=== PATIENT | female | born 1945 | race Caucasian/White ===

== ENCOUNTER 2019-10-24 13:57 | Inpatient (IN) | payer MEDICARE, MEDICAID, SELFPAY ==
[2019-10-24] VITALS (14 sets, daily range): BP systolic 85–132; BP diastolic 38–97; PULSE 68–94; RESP 17–30; TEMP 36.3–36.7; O2SAT 93–100; BMI 29.5
--- NOTE | ~2019-10-24 | XR_ITS ---
EXAMINATION: XR chest 1V portable 10/24/2019 15:52 INDICATION: Dyspnea. Transient alteration of awareness. PROCEDURE: AP portable chest COMPARISON: 06/13/2018 FINDINGS: The lungs are clear. The cardiomediastinal silhouette is within normal limits. There are no pleural effusions. There is no pneumothorax suspected. IMPRESSION: 1: NO ACUTE CARDIOPULMONARY DISEASE. Reviewed, dictated and finalized at location A.
--- NOTE | ~2019-10-24 | CT_ITS ---
EXAMINATION: CT brain wo con INDICATION: Confusion, history of three brain tumors with removal of one per H&P COMPARISON: None TECHNIQUE: Standard unenhanced head CT. The dose-length product (DLP) was 605.33 mGy-cm. The mA was a djusted according to patient size. Iterative reconstruction technique was employed. FINDINGS: There are changes of right frontotemporal craniotomy. A large area of the right frontal lob e has been surgically removed. There are calcifications of the inferior aspect of the remaining right frontal lobe and medial/inferior right temporal lobe. Encephalomalacia is seen anteriorly in the sup erior aspect of the remaining right frontal lobe. There is no acute intraparenchymal hemorrhage. No e vidence of acute infarction. There is moderate periventricular and subcortical hypodensity probably r elated to small vessel ischemic disease. There is mild prominence of the sulci and ventricles related to cerebral atrophy. Intracranial calcified cerebral atherosclerosis is noted. There are no extra-ax ial collections. There is no mass effect or midline shift. The orbits and soft tissues are unremarkab le. There is mild mucosal thickening of the paranasal sinuses. IMPRESSION: 1. Changes of right frontotemporal craniotomy and partial right frontal lobe resection without acute intracranial abnormality. 2. Calcifications in the right frontal and temporal lobes which could reflect residual masses describ ed in patients H&P. Reviewed, dictated and finalized at location A. IMPRESSION: 1. Changes of right frontotemporal craniotomy and partial right frontal lobe re section without acute intracranial abnormality. 2. Calcifications in the right frontal and temporal lobes which could reflect r esidual masses described in patients H&P.
--- NOTE | 2019-10-24 14:03 | ECG_ITS ---
Measurements Intervals [place] Rate: 77 P: 57 [place]: 172 QRS: -54 QRSD: 69 T: 71 QT: 353 QTc: 400 Interpretive Statements SINUS RHYTHM LOW QRS VOLTAGE- DIFFUSE LEADS POOR R WAVE PROGRESSION, ANTERIOR LEADS CONSIDER INFERIOR INFARCT, AGE INDETERMINATE BASELINE ARTIFACT- V4-V6 ABNORMAL ECG Electronically Signed On 10-24-2019 16:18:56 CDT by Bryon Reyes D.O.
[2019-10-24 14:21] LABS: Basophils Absolute Auto 0.1 K/mm3 (0.0-0.1); Basophils Percent Auto 0.6 % (0.2-1.2); Eosinophils Absolute Auto 0.2 K/mm3 (0-0.3); Eosinophils Percent Auto 1.9 % (0-4.4); Hemoglobin 13.4 g/dL (12.0-15.0); Immature Granulocyte Absolute 0.08 K/mm3 (0.00-0.031); Immature Granulocyte Percent A 0.7 % (0-0.5); Lymphocytes Absolute Auto 2.88 K/mm3 (0.9-3.2); Lymphocytes Percent Auto 23.7 % (18.3-44.2); Mean Corpuscular HGB Conc 30.5 g/dl (32-36); Mean Corpuscular Hemoglobin 26.2 pg (26-34); Mean Corpuscular Volume 85.9 fl (80-100); Mean Platelet Volume 9.1 fl (7.4-10.4); Monocytes Absolute Auto 0.3 K/mm3 (0.1-0.6); Monocytes Percent Auto 2.7 % (2.6-8.5); Neutrophils Absolute Auto 8.6 K/mm3 (1.3-6.7); Neutrophils Percent Auto 70.4 % (45.5-73.1); Platelet Count Result 329 k/mm3 (150-375); Red Blood Count 5.12 M/mm3 (4.2-5.4); Red Cell Distribution Width 15.9 % (11.5-14.5); White Blood Count 12.2 K/mm3 (4.5-10.0)
[2019-10-24 14:39] LABS: Alanine Aminotransferase 119 U/L (4-35); Alkaline Phosphatase 121 U/L (38-126); Aspartate Amino Transferase 126 U/L (14-36); Bilirubin,Total 0.4 mg/dL (0.2-1.3); Blood Urea Nitrogen 12 mg/dL (7-17); Calcium 8.7 mg/dL (8.4-10.2); Carbon Dioxide 23 mmol/L (22-30); Chloride 106 mmol/L (98-107); Estimated Glomerular Filt Rate > 60; Glucose 266 mg/dL (65-105); Sodium 141 mmol/L (137-145)
[2019-10-24 14:47] LABS: Anion Gap 15.7 mmol/L (7-16); Potassium 3.7 mmol/L (3.4-5.0)
[2019-10-24 15:08] LABS: Add Urine Microscopic? YES; Appearance Urine Cloudy (Clear); Bacteria Urine 2+ /hpf; Bilirubin Urine Negative (Negative); Blood Urine Negative (Negative); Color Urine Yellow (Yellow); Glucose Urine UA Negative (Negative); Hyaline Casts Urine 30-49 /lpf; Ketones Urine Negative (Negative); Leukocyte Esterase Ur 2+ LEU/UL (Negative); Mucus Urine Heavy /lpf; Nitrate Urine Positive (Negative); Protein Urine 1+ mg/dL (Negative); Specific Grav Ur 1.016 (1.001-1.035); Squamous Epithelial Cell Urine Occasional /hpf (Few); Urobilinogen Urine Negative mg/dL (<2.0); WBC Urine 31-50 /hpf
--- NOTE | 2019-10-24 15:36 | PC.NURSE ---
Pt family called to get an update. States that pt has had pnuemonia in the last month and are requesting we get a chest X ray
[2019-10-24] MEDS: SODIUM CHLORIDE 0.9% IV 1,000 ML 999 ML IV CONT (17:00)
--- NOTE | 2019-10-24 18:19 | ED.AMS ---
HPI - Altered Mental Status General Chief Complaint: Altered Mental Status Stated Complaint: ams Time Seen by Provider: 10/24/19 15:00 Source: patient, EMS and RN notes reviewed Mode of arrival: EMS Limitations: no limitations History of Present Illness HPI narrative: 74-year-old with a history of hypertension, diabetes was sent from a care home with complaints of sudden onset of altered mental status. Patient was at the lunch table was found to be extremely confused and lethargic , as per the care home staff her blood pressure was 95/45. Patient upon arrival to the ER seems to be more alert complains of headache chest pain abdominal pain. She denies any cough shot or shortness of breath. She stated that she threw up few days ago. MD complaint: altered mental status and decreased responsiveness Onset (ago): hour(s) (1) Severity: moderate Associated symptoms: chest pain, nausea/vomiting and weakness Treatments prior to arrival: IV fluid Related Data Home Medications Medication Instructions Recorded Confirmed Lactobacillus acidophilus mg PO DAILY 10/24/19 [Acidophilus] Phenergan 25 mg PO 10/24/19 insulin glargine [Basaglar KwikPen 14 unit SUBCUT BID 10/24/19 U-100 Insulin] omeprazole 20 mg PO BID 10/24/19 oseltamivir [Tamiflu] 75 mg PO DAILY 10/24/19 oxybutynin chloride 5 mg PO DAILY 10/24/19 pneumococcal 23-charanjit ps vaccine 0.5 ml IM ONCE 10/24/19 [Pneumovax-23] sennosides-docusate sodium [Senna 8.6 cap PO 10/24/19 Plus] Allergies Allergy/AdvReac Type Severity Reaction Status Date / Time shellfish derived Allergy Unknown Hives Verified 06/03/18 14:38 codeine Allergy Unknown Verified 10/24/19 14:44 erythromycin base Allergy Unknown Verified 10/24/19 14:44 hydrocodone Allergy Unknown Verified 10/24/19 14:44 ibuprofen Allergy Unknown Verified 10/24/19 14:44 Iodinated Contrast Media Allergy Unknown Verified 10/24/19 14:44 meperidine Allergy Unknown Verified 10/24/19 14:44 mepivacaine [From Carbocaine] Allergy Unknown Verified 10/24/19 14:44 propoxycaine Allergy Unknown Verified 10/24/19 14:44 Sulfa (Sulfonamide Allergy Unknown Verified 10/24/19 14:44 Antibiotics) Review of Systems Review of Systems: All systems reviewed & are unremarkable except as noted in HPI and below Constitutional: Constitutional: Reports no additional constitutional complaints Eyes: Eyes: Reports no additional eye complaints ENT: Reports system reviewed and no additional complaints, except as documented Cardiovascular: Cardiovascular: Reports no additional cardiovascular complaints Respiratory: Respiratory: Reports no additional respiratory complaints Gastrointestinal: Gastrointestinal: Reports no additional gastrointestinal complaints Genitourinary: Genitourinary: Reports as per HPI Musculoskeletal: Musculoskeletal: Reports no additional musculoskeletal complaints Neurologic: Reports system reviewed and no additional complaints, except as documented [facility] Social History Social History Second hand tobacco smoke exposure: No Alcohol intake: never Exam Const: General: cooperative, no acute distress and well developed Nutritional Appearance: average body habitus HENMT: General nose exam: Normal external nose present Face and sinus: normal facial exam Mouth: Yes Normal oral and palatal mucosa present Eyes: General: appearance normal, both eyes and all related structures Pupils: Equal, round and reactive pupils present Neck: Neck: normal visual inspection Lymphatic: no lymphadenopathy noted Chest: Chest palpation & inspection: normal inspection of the chest Resp: Effort & Inspection: normal respiratory effort and able to speak in complete sentences Cardio: Palpation: normal PMI Rate: regular rate Rhythm: regular rhythm Heart sounds: S1 normal heart sound present and S2 normal heart sound present GI: Inspection: normal to inspection
--- NOTE | 2019-10-24 18:59 | PC.NURSE ---
Tung Dumont:[phone] Brother: YOGI [phone]
--- NOTE | 2019-10-24 19:22 | PC.NURSE ---
Blood Glucose was 143 at 19:23
[2019-10-24 19:23] LABS: Glucose Point of Care 143 (65-105)
[2019-10-24] MEDS: SODIUM CHLORIDE 0.9% IV 1,000 ML 100 ML IV CONT (20:45)
[2019-10-25] VITALS (11 sets, daily range): BP systolic 114–130; BP diastolic 46–63; PULSE 69–92; RESP 16–18; TEMP 36.4–37.2; O2SAT 94–97
--- NOTE | 2019-10-25 | PC.NURSE ---
This patient, Linette Vásquez, was admitted to 3 [facility] Room 313-01. Patient/family oriented to hospital policies and general routines including ID bracelet, bed and alarms, visiting hours, pain management, procedures, bathroom and other care routines, personal items, smoking policy, room service/diet, and visiting hours. Valuables list has been completed. Information on how to activate the Rapid Response Team has been discussed. Patient/Family are encouraged to report perceived risks to care and to ask questions if they do not understand what they are told or what they should do.
--- NOTE | 2019-10-25 | PM.IMHP ---
H&P: HPI History of Present Illness Date/Time: 10/25/19 00:00 Chief complaint: Altered mental status, hypertension, UTI Narrative: Linette Vásquez is a 74 year old female Who [facility] The patient does have a history of diabetes. She had an altered mental status change today. She is eating lung to the table and she became very confused blood pressure is 95/45. The patient was a little more alert to was complaining of a headache when she got here and abdominal pain. She denied any fever chills or any shortness of breath. The patient tells me that she has her temperature checked several times a day and does not have a fever. Initially the patient thought that she was still the senior care and then she thought she was at [facility] on the 3rd attempt at orientation to place she realized that she was at [facility]. her white count was noted to be 12.2. Her blood sugar was initially 266 and then became at 1:43 a.m.. Her urine was found to be positive for UTI. She was started on IV fluids and ceftriaxone. The patient is more talkative and stated that she threw up for the last 3 days and that she felt a little sick to her stomach. She is passing gas in the room. I spent approximately 45 minutes with the patient date of service is 10/25/2019 Review of Systems Review of Systems: All systems reviewed & are unremarkable except as noted in HPI and below Constitutional: Constitutional: Reports as per HPI and Reports no additional constitutional complaints Eyes: Eyes: Reports as per HPI and Reports no additional eye complaints ENT: Reports system reviewed and no additional complaints, except as documented and Reports Normal hearing present Cardiovascular: Cardiovascular: Reports no additional cardiovascular complaints Respiratory: Respiratory: Reports no additional respiratory complaints and Reports no additional respiratory complaints Gastrointestinal: Gastrointestinal: Reports as per HPI and Reports no additional gastrointestinal complaints Musculoskeletal: Musculoskeletal: Reports no additional musculoskeletal complaints Integumentary/Breasts: Skin/Breast: Reports system reviewed and no additional complaints, except as docu and Reports as per HPI Neurologic: Reports system reviewed and no additional complaints, except as documented, Reports as per HPI and Reports Normal hearing present Psychiatric: Psychiatric: Reports no additional psychiatric complaints and Reports as per HPI Endocrine: Endocrine: Reports no additional endocrine complaints Hematologic/Lymphatic: Hematologic/Lymphatic: Reports no additional hematologic/lymphatic complaints Allergic/Immunologic: Allergic/Immunologic: Reports no additional allergic/immunologic complaints PMFSH Past Medical History Medical History (Updated 10/25/19 @ 00:04 by Monik Dorsey NP) Brain tumor the patient stated that she had 3 brain tumors and that too were not able to be removed in only 1 removed. DM2 (diabetes mellitus, type 2) Surgical History Surgical History (Updated 10/25/19 @ 00:04 by Monik Dorsey NP) H/O brain surgery she stated that she only had 1 brain tumor removed. Family History Family History (Updated 10/25/19 @ 00:06 by Monik Dorsey NP) Mother Diabetes mellitus Father Lung cancer Sibling Breast cancer she has Social History Social History (Updated 10/25/19 @ 00:07 by Monik Dorsey NP) Social History: the patient stated that she is and has 1 son. She states that her brother and her son are durable power real estate attorney. She states that her son comes to visit her often brings are presents at [facility]. She desires to be a full code. 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 She stated that she used to smoke until she was made to quit smoking. She denies any marijuana illicit drug use or alcohol. The patient is a full code.
--- NOTE | 2019-10-25 00:11 | PC.NURSE ---
pt poor historian
[2019-10-25 02:09] LABS: Glucose Point of Care 170 (65-105)
[2019-10-25] MEDS: SODIUM CHLORIDE 0.9% IV 1,000 ML 100 ML IV CONT ×2 (05:51→16:49)
[2019-10-25 06:46] LABS: Alanine Aminotransferase 96 U/L (4-35); Albumin Level 3.7 g/dL (3.5-5.1); Alkaline Phosphatase 105 U/L (38-126); Aspartate Amino Transferase 68 U/L (14-36); Bilirubin,Total 0.2 mg/dL (0.2-1.3); Blood Urea Nitrogen 9 mg/dL (7-17); CRP 3.4 mg/dL (<1.0); Calcium 8.1 mg/dL (8.4-10.2); Carbon Dioxide 24 mmol/L (22-30); Chloride 112 mmol/L (98-107); Estimated CRCL calculation 53 ml/min; Estimated Glomerular Filt Rate > 60; Glucose 142 mg/dL (65-105); Sodium 143 mmol/L (137-145)
--- NOTE | 2019-10-25 08:30 | NEURO_ITS ---
TEST: ELECTROENCEPHALOGRAM DIAGNOSIS: CONFUSION PATIENT NUMBER: [id number] EEG NUMBER: [id number] RECORDING DATE: 10/25/19 CLINICAL HISTORY: Patient has history of having a brain tumor removed. CONDITION OF RECORDING: Awake EEG DESCRIPTION: The whole record consists of diffused poorly organized low voltage 15-21beta activity mixed with multiple movement and muscle artifacts in addition to medium to high voltage 3-4hz delta activity over the right anterior hemispheric linkages. Hyperventilation and photic stimulation were not done. Nonparoxysmal. Focal. Lateralizing. IMPRESSION: Abnormal record due to the presence of the right hemispheric theta and delta activity without any evidence of paroxysmal discharge. Clinical correlation recommended. These abnormalities could be suggestive of underlying organic or metabolic encephalopathy along with focal structural lesion on the right side. MTDD
[2019-10-25] MEDS: PANTOPRAZOLE SOD SESQUIHYDRATE 20 MG TAB PO ×2 (09:27→18:07)
[2019-10-25] MEDS: ACIDOPHILUS/BULGARICUS CHEWABLE TABLET 1 TABLET PO (09:27)
[2019-10-25 10:56] LABS: Glucose Point of Care 131 (65-105)
[2019-10-25] MEDS: INSULIN GLARGINE (*BKC) 100 UNITS/ML 14 UNITS SUB-Q ×2 (11:18→18:12)
[2019-10-25 13:26] LABS: Glucose Point of Care 118 (65-105)
--- NOTE | 2019-10-25 14:16 | PM.IMPN ---
Progress Note: A&P Assessment and Plan (1) Acute UTI: Code(s): N39.0 - Urinary tract infection, site not specified Status: Acute Assessment and Plan: Patient presents from long-term due to altered mental status. UA is abnormal. Continue IV ceftriaxone while awaiting urine and blood cultures. Unclear why 2nd set of blood cultures not drawn, contacted lab to get 2nd set. (2) Altered mental status: Qualifiers: Altered mental status type: unspecified Qualified Code(s): R41.82 - Altered mental status, unspecified Code(s): R41.82 - Altered mental status, unspecified Status: Resolved Assessment and Plan: Resolved today. Suspect secondary to above. Will monitor. (3) Acute hypotension: Code(s): I95.9 - Hypotension, unspecified Status: Acute Assessment and Plan: Resolved; last BP 130/60. Likely secondary to recent vomiting and poor appetite in the setting of UTI. Monitor BP. (4) DM2 (diabetes mellitus, type 2): Qualifiers: Diabetes mellitus prison insulin use: with prison use Diabetes mellitus complication status: without complication Qualified Code(s): E11.9 - Type 2 diabetes mellitus without complications; Z79.4 - long term care administrator (current) use of insulin Code(s): E11.9 - Type 2 diabetes mellitus without complications Status: Chronic Assessment and Plan: Blood sugars are stable today. Continue home lantus BID and cover with SSI. Monitor with Accu-cheks and adjust treatment as needed. (5) Brain tumor: Code(s): D49.6 - Neoplasm of unspecified behavior of brain Status: Chronic Assessment and Plan: Patient reports history of 3 brain tumors and had 1 removed in the past. CT brain shows chronic findings consistent with the history she gives, no acute findings. At this point it is not felt to be contributing to her symptoms from yesteray. Subjective Date/time seen: 10/25/19 1215 Interval history: Ms. Vásquez is a 74yo F admitted for UTI. Was confused with hypotension at the long-term which has resolved, at baseline today. She is sitting up in bed eating lunch at time of my exam. She reports having dysuria sometimes . Denies chest pain, shortness of breath, or calf tenderness. She is tolerating oral intake without nausea or vomiting today. Review of Systems Review of Systems: Narrative: Twelve systems were reviewed with pertinent positives and negatives as per HPI. Exam Narrative: Exam Narrative: General: Female resting sitting up in bed in no acute distress, eating lunch. HEENT: Normocephalic, EOMI, oral mucosa moist. Cardiovascular: Rate and rhythm are regular. Respiratory: Lungs clear to auscultation all adrian. Non-labored breathing. Abdomen: Soft, non-tender, non-distended, bowel sounds present. Extremities: Peripheral pulses intact. Neuro: No focal neurological deficits. Speech is clear. Alert and mostly oriented. She knows she is in the hospital but looks up at the whiteboard before telling me she is at [place], oriented to month and year. Objective Data Vital Signs Vital Signs: Last Vital Signs Temp 98.4 F 10/25/19 14:00 Pulse 78 10/25/19 14:00 Resp 18 10/25/19 14:00 BP 130/60 10/25/19 14:00 Pulse Ox 94 10/25/19 14:00 Intake/Output Intake/Output: Intake & Output 10/22/19 10/23/19 10/24/19 10/25/19 23:59 23:59 23:59 23:59 Intake Total 1050 1270 Output Total 50 200 Balance 1000 1070 Meds/Results Medications: Active Medications Generic Name Dose Route Start Last Admin Trade Name Freq PRN Reason Stop Dose Admin Acetaminophen 650 mg 10/24/19 18:30 Tylenol Tablet PO Q4H PRN Mild Pain (1-3) or Fever Dextrose 12.5 gm 10/24/19 18:30 Dextrose 50% Syringe IV PUSH PRN PRN
[2019-10-25 18:19] LABS: Glucose Point of Care 152 (65-105)
[2019-10-25 21:19] LABS: Glucose Point of Care 202 (65-105)
[2019-10-26] VITALS (7 sets, daily range): BP systolic 122–136; BP diastolic 49–72; PULSE 60–88; RESP 14–18; TEMP 36.2–36.7; O2SAT 96–98
[2019-10-26] MEDS: SODIUM CHLORIDE 0.9% IV 1,000 ML 100 ML IV CONT ×2 (04:41→13:00)
[2019-10-26] MEDS: ACIDOPHILUS/BULGARICUS CHEWABLE TABLET 1 TABLET PO (08:57)
[2019-10-26] MEDS: PANTOPRAZOLE SOD SESQUIHYDRATE 20 MG TAB PO ×2 (08:58→18:26)
[2019-10-26] MEDS: SENNA/DOCUSATE SODIUM TABLET 1 TAB PO (08:58)
[2019-10-26] MEDS: INSULIN GLARGINE (*BKC) 100 UNITS/ML 14 UNITS SUB-Q (09:03)
--- NOTE | 2019-10-26 11:53 | PM.DS ---
DS: Admitting Diagnosis Admitting Diagnosis Admitting Diagnosis: Urinary tract infection, site not specified DS: Discharge Diagnosis Discharge Diagnosis (1) Acute UTI: Code(s): N39.0 - Urinary tract infection, site not specified Status: Acute Assessment and Plan: Date of Service 10/26/19 Ms. Vásquez is a 74yo F history of insulin-dependent type 2 diabetes, history of brain tumors who presented to the ED from the intermediate for evaluation of altered mental status. intermediate staff noted she was sitting showed a table eating lunch when she fell asleep sitting up and tried to wake her up, she was difficult to arouse. Blood pressures were 68/48 when EMS arrived. Urinalysis was grossly abnormal and she was started on IV ceftriaxone empirically. Urine culture grew Klebsiella pneumonia. Blood culture is pending with no growth to date on day of discharge, will follow to final. She was treated with 2 doses of IV Rocephin and was discharged with oral Augmentin to complete course based on the sensitivity report. She is oriented to self time but gets confused on place. This seems to be her baseline. It is felt that her altered mental status was secondary to acute UTI and hypotension. She was treated with IV hydration and blood pressures have improved. She does have a history of 3 brain tumors and reports she had 1 removed in the past. CT brain demonstrated chronic findings consistent with his history, with no acute intracranial abnormalities. She is hemodynamically stable for discharge 10/26/2019 with plans to follow-up with intermediate PCP within 1 week. (2) Altered mental status: Qualifiers: Altered mental status type: unspecified Qualified Code(s): R41.82 - Altered mental status, unspecified Code(s): R41.82 - Altered mental status, unspecified Status: Resolved Assessment and Plan: Resolved today. Suspect secondary to above. (3) Acute hypotension: Code(s): I95.9 - Hypotension, unspecified Status: Acute Assessment and Plan: Resolved; last BP 136/52. Likely secondary to recent vomiting and poor appetite in the setting of UTI. Monitor BP. (4) DM2 (diabetes mellitus, type 2): Qualifiers: Diabetes mellitus intermission coordinator insulin use: with detention use Diabetes mellitus complication status: without complication Qualified Code(s): E11.9 - Type 2 diabetes mellitus without complications; Z79.4 - jail (current) use of insulin Code(s): E11.9 - Type 2 diabetes mellitus without complications Status: Chronic Assessment and Plan: Blood sugars are stable today. Continue her home Lantus regimen. (5) Brain tumor: Code(s): D49.6 - Neoplasm of unspecified behavior of brain Status: Chronic Assessment and Plan: Patient reports history of 3 brain tumors and had 1 removed in the past. CT brain shows chronic findings consistent with the history she gives, no acute findings. At this point it is not felt to be contributing to her symptoms from yesteray. DS: Summary Time Spent with Patient Time attestation: Total time spent providing and/or coordinating discharge services: 35 minute Exam Narrative: Exam Narrative: General: Female resting sitting up in bed in no acute distress, eating lunch. HEENT: Normocephalic, EOMI, oral mucosa moist. Cardiovascular: Rate and rhythm are regular. Respiratory: Lungs clear to auscultation all adrian. Non-labored breathing. Abdomen: Soft, non-tender, non-distended, bowel sounds present. Extremities: Peripheral pulses intact. Neuro: No focal neurological deficits. Speech is clear. Alert and mostly oriented. She knows she is in the hospital but looks up at the whiteboard before telling me she is at [place], oriented to month and yea
[2019-10-26 13:13] LABS: Glucose Point of Care 99 (65-105)
[2019-10-26 13:21] LABS: Glucose Point of Care 156 (65-105)
[2019-10-26 15:08] LABS: SARS-CoV-2 RNA PCR Negative
[2019-10-26 17:25] LABS: Glucose Point of Care 156 (65-105)
--- NOTE | 2019-11-02 11:05 | PC.NURSE ---
Blood cx is negative
== END 2019-10-26 18:45 | DRG 690 ==
LOC: ANHED 18:57 → ANH3MEDSUR 19:26
PROVIDERS: Emergency Medicine; Nurse Practitioner; Physician Assistant; Admitting Provider Internal Medicine; Emergency Provider Family Medicine; PCP Internal Medicine; Visit Provider Internal Medicine
DX: N39.0 Urinary tract infection, site not specified (principal); B96.1 Klebsiella pneumoniae [K. pneumoniae] as the cause of diseases classified elsewhere; Z11.59 Encounter for screening for other viral diseases; R41.82 Altered mental status, unspecified; I95.9 Hypotension, unspecified; E11.9 Type 2 diabetes mellitus without complications; D49.6 Neoplasm of unspecified behavior of brain; Z79.4 Long term (current) use of insulin; Z87.891 Personal history of nicotine dependence
CPT/HCPCS: 36415; 51701; 70450; 71045; 80053; 81001; 82728; 82948; 84443; 85025; 86140; 87040; 87077; 87086; 87088; 87186; 87635; 93005; 95816; 96361; 96365; 99285; A9270; C9803; G0378; J0696; J1815; J7030; U0003

== ENCOUNTER 2020-01-28 08:03 | Inpatient (IN) | payer MEDICARE, MEDICAID, SELFPAY ==
[2020-01-28] VITALS (38 sets, daily range): BP systolic 73–129; BP diastolic 53–76; PULSE 70–123; RESP 8–98; TEMP 36.1–36.4; O2SAT 85–100
--- NOTE | ~2020-01-28 | XR_ITS ---
EXAMINATION: XR chest 1V portable DATE: 02/11/2020 06:15 INDICATION: Acute respiratory failure. COVID-19 pneumonia. TECHNIQUE: A single frontal view of the chest was obtained. COMPARISON: Chest single view 02/10/2020 FINDINGS: There is a diffuse interstitial pattern in the lungs. No pleural effusion or pneumothorax. The heart size is normal. The endotracheal tube tip is 3.2 cm above the ruchi. The nasogastric tube tip is in the stomach. A right upper extremity peripherally inserted central venous catheter (PICC) i s seen with tip in the superior vena cava. IMPRESSION: 1. Stable diffuse lung disease, consistent with atypical pneumonia versus mild pulmonary edema. Reviewed, dictated and finalized at location A. ULUS TUTOR
--- NOTE | ~2020-01-28 | XR_ITS ---
EXAMINATION: XR chest 1V portable DATE: 02/08/2020 05:58 INDICATION: Acute respiratory failure. COVID-19 pneumonia. TECHNIQUE: A single frontal view of the chest was obtained. COMPARISON: Chest single view 02/07/2020 FINDINGS: The lung volumes are small. There is a diffuse interstitial pattern in the lungs. No pleura l effusion or pneumothorax. The heart size is normal. The endotracheal tube tip is 2.2 cm above the c lloyd. A right upper extremity peripherally inserted central venous catheter (PICC) is seen with tip in the right brachiocephalic vein. The nasogastric tube tip is in the distal stomach. IMPRESSION: 1. Stable diffuse interstitial pattern in the lungs, consistent with atypical pneumonia versus mild p ulmonary edema. Reviewed, dictated and finalized at location A. IGHTENER HAND IMPRESSION: 1. Stable diffuse interstitial pattern in the lungs, consistent with atypical p neumonia versus mild pulmonary edema.
--- NOTE | ~2020-01-28 | US_ITS ---
EXAMINATION: US renal BI EXAM DATE: 01/28/2020 15:20 INDICATION: Acute kidney insufficiency. TECHNIQUE: Multiple grayscale and Doppler images of the kidneys were obtained (by a technologist who performed the scan) and subsequently reviewed. Comparison is made to prior examination from 06/29/2018. FINDINGS: Right kidney: There is normal contour and echogenicity. It measures 10.5 x 4.4 x 4.0 centimeters. T here are no focal renal lesions identified. There is no hydronephrosis. Left kidney: There is normal contour and echogenicity. It measures 9.9 x 4.7 x 5.3 centimeters. The re are no focal renal lesions identified. There is no hydronephrosis. Hodge catheter, bladder collapsed and poorly seen. Incidental hepatic steatosis. IMPRESSION: 1. Sonographically unremarkable kidneys. Reviewed, dictated and finalized at location B. SHARED SERVICES CONSULTANT
--- NOTE | ~2020-01-28 | XR_ITS ---
EXAMINATION: XR chest 1V portable DATE: 02/09/2020 06:08 INDICATION: Acute respiratory failure. COVID-19 pneumonia. TECHNIQUE: A single frontal view of the chest was obtained. COMPARISON: Chest single view 02/08/2020 FINDINGS: There is a diffuse interstitial pattern in the lungs. There are mild airspace opacities in right midlung zone and left lower lung zone. No pleural effusion or pneumothorax. The heart size is n ormal. The endotracheal tube tip is 2.4 cm above the ruchi. The nasogastric tube tip is in the dista l stomach. A right upper extremity peripherally inserted central venous catheter (PICC) is seen with tip in the superior vena cava. IMPRESSION: 1. Stable diffuse lung disease, consistent with atypical pneumonia versus mild pulmonary edema. Reviewed, dictated and finalized at location A. TECHNICIAN
--- NOTE | ~2020-01-28 | US_ITS ---
EXAMINATION: US right upper quadrant EXAM DATE: 02/09/2020 14:51 INDICATION: elevated liver enzymes elevated LFTS . TECHNIQUE: Multiple grayscale and Doppler images of the abdomen right upper quadrant were obtained (b y a technologist who performed the scan) and subsequently reviewed. Comparison is made to prior exami nation from 06/29/2018. FINDINGS: The pancreatic head and body are normal in appearance. The pancreatic tail is not visualized. There is echogenic liver parenchyma, hepatic steatosis. There is a cyst measuring 2.5 cm inferiorly. The re is no evidence of intrahepatic biliary duct dilation. Portal venous flow was seen in the hepatope da, normal direction and has normal Doppler waveform. No right-sided hydronephrosis. Common bile duct measures 2 mm, which is normal. The gallbladder wall is normal in thickness, with co ntracted state. No sonographic evidence of pericholecystic fluid. There is no cholelithiases. Techn ologist performing exam reports patient did not demonstrate sonographic Borden's sign. Please note t hat this sign is less reliable in patients who have received pain medication. IMPRESSION: 1. Hepatic steatosis. Reviewed, dictated and finalized at location A. RWRITING CONSULTANT IMPRESSION: 1. Hepatic steatosis.
--- NOTE | ~2020-01-28 | XR_ITS ---
EXAMINATION: XR chest 1V portable EXAM DATE: 02/01/2020 06:22 INDICATION: Respiratory failure. TECHNIQUE: Portable AP frontal chest x-ray was obtained. Comparison is made to prior examination from 01/31/2020, 01/30/2020. FINDINGS: Endotracheal tube tip is 3 centimeters above the ruchi (ideal range is between 2 to 5 cm). There is a right-sided PICC line with tip projecting over the SVC. Feeding tube is in position. Small patchy bilateral acute airspace disease likely atelectasis and/or pneumonia. There are small b ilateral pleural effusions. There is no pneumothorax suspected. The cardiomediastinal silhouette i s prominent but magnified on this AP technique. The bones and soft tissues are unremarkable. Accounting for differences in technique, there is no significant interval change. IMPRESSION: 1. Tubes, line in position. 2. Stable airspace disease and other findings as above. STRIAL ELECTRICAL TECHNICIAN Reviewed, dictated and finalized at location A.
--- NOTE | ~2020-01-28 | XR_ITS ---
EXAMINATION: XR chest 1V portable INDICATION: Respiratory failure TECHNIQUE: Portable AP chest at 0553 hours COMPARISON: 01/28/2020 FINDINGS: The endotracheal tube has been repositioned and ends with its tip approximately 5.0 cm abov e the ruchi. The nasogastric tube is in the stomach with its proximal side port near the gastroesoph ageal junction. Airspace opacities of the left mid and lower lung zones continue to improve. There is mild worsening of right basilar airspace opacity. Airspace opacity in the right midlung zone is unch anged. There is no pneumothorax. No definite pleural effusion is identified. The cardiomediastinal si lhouette is normal. IMPRESSION: 1. Repositioned endotracheal tube approximately 5.0 cm above the ruchi. 2. Bilateral airspace opacities of the mid and lower lung zones as detailed above, consistent with at electasis versus pneumonia. Reviewed, dictated and finalized at location A. NEERING PROFESSOR IMPRESSION: 1. Repositioned endotracheal tube approximately 5.0 cm above the ruchi. 2. Bilateral airspace opacities of the mid and lower lung zones as detailed abo ve, consistent with atelectasis versus pneumonia.
--- NOTE | ~2020-01-28 | XR_ITS ---
EXAMINATION: XR chest PICC line INDICATION: PICC insertion TECHNIQUE: Portable AP chest at 1119 hours COMPARISON: 0553 hours FINDINGS: A right upper extremity PICC has been inserted which ends with its tip in the distal superi or vena cava. The endotracheal tube is 2.3 cm above the ruchi. The nasogastric tube is in the stomac h. Airspace opacities of the lung bases are unchanged. The cardiomediastinal silhouette is stable. Th ere is no pleural effusion or pneumothorax. IMPRESSION: 1. Right upper extremity PICC ending with its tip in the distal superior vena cava. 2. Endotracheal tube advanced to 2.3 cm above the ruchi. 3. Otherwise no significant change. Reviewed, dictated and finalized at location A. ING OPERATOR IMPRESSION: 1. Right upper extremity PICC ending with its tip in the distal superior vena c gonzález. 2. Endotracheal tube advanced to 2.3 cm above the ruchi. 3. Otherwise no significant change.
--- NOTE | ~2020-01-28 | XR_ITS ---
EXAMINATION: XR chest ET placement INDICATION: Endotracheal tube insertion TECHNIQUE: Portable AP chest at 0826 hours COMPARISON: 10/24/2019 FINDINGS: The endotracheal tube ends in the right mainstem bronchus. There are patchy bilateral airsp paul opacities. The lung volumes are low. No pleural effusion or pneumothorax is identified. The cardi omediastinal silhouette is stable. IMPRESSION: 1. Endotracheal tube in the right mainstem bronchus. Repositioning is recommended. These findings and recommendations were discussed with Dr. Marvin Jacobson MD in the Emergency Department at 0829 ho urs on 01/28/2020. 2. Patchy bilateral airspace opacities, consistent with pneumonia (known COVID 19 positive). Reviewed, dictated and finalized at location A. SCHOOL ART TEACHER IMPRESSION: 1. Endotracheal tube in the right mainstem bronchus. Repositioning is recommend ed. These findings and recommendations were discussed with Dr. Marvin roth MD in the Emergency Department at 0829 hours on 01/28/2020. 2. Patchy bilateral airspace opacities, consistent with pneumonia (known COVID 19 positive).
--- NOTE | ~2020-01-28 | XR_ITS ---
EXAMINATION: XR chest 1V portable EXAM DATE: 01/31/2020 06:22 INDICATION: Respiratory failure. TECHNIQUE: Portable AP frontal chest x-ray was obtained. Comparison is made to prior examination from 01/30/2020. FINDINGS: Endotracheal tube tip is 3 centimeters above the ruchi (ideal range is between 2 to 5 cm). There is a right-sided PICC line with tip projecting over the cavoatrial junction. Feeding tube tatiana ntified, tip below the diaphragm. The side port is probably above the gastroesophageal junction. This could be safely advanced 5-10 cm. Small patchy bilateral acute airspace disease likely atelectasis and/or pneumonia. There are small b ilateral pleural effusions. There is no pneumothorax suspected. The cardiomediastinal silhouette i s prominent but magnified on this AP technique. The bones and soft tissues are unremarkable. There is no significant interval change compared to prior exam. IMPRESSION: 1. Feeding tube side port above the diaphragm level, could be safely advanced. 2. Stable airspace disease and other findings as above. Reviewed, dictated and finalized at location A. NHOUSE INSTRUCTOR
--- NOTE | ~2020-01-28 | XR_ITS ---
EXAMINATION: XR chest 1V portable EXAM DATE: 02/12/2020 05:58 INDICATION: acute respiratory failure . TECHNIQUE: Portable AP frontal chest x-ray was obtained. Comparison is made to prior examination from 02/11/2020. FINDINGS: Endotracheal tube tip is 4 centimeters above the ruchi (ideal range is between 2 to 5 cm). There is a nasogastric tube seen with tip collimated off the study, but below the left hemidiaphrag m. There is a right-sided PICC line with tip projecting over the cavoatrial junction. Small scattered ill-defined opacities with regions of confluence. Could be edema and/or infection. T here are no sizable pleural effusions. There is no pneumothorax suspected. The cardiomediastinal silhouette is prominent but magnified on this AP technique. The bones and soft tissues are unremark able. There is no significant interval change compared to prior exam. IMPRESSION: 1. Line(s) and tube(s) in position. 2. Stable airspace disease and other findings as above. Reviewed, dictated and finalized at location A. OR SALES ENGINEER
--- NOTE | ~2020-01-28 | XR_ITS ---
EXAMINATION: XR chest 1V portable EXAM DATE: 02/02/2020 06:29 INDICATION: Respiratory failure. TECHNIQUE: Portable AP frontal chest x-ray was obtained. Comparison is made to prior examination from 01/31, 01/31/2020, 01/30/2020. FINDINGS: Endotracheal tube tip is 3 centimeters above the ruchi (ideal range is between 2 to 5 cm). There is a right-sided PICC line with tip projecting over the SVC. Feeding tube is in position. Small patchy bilateral acute airspace disease likely atelectasis and/or pneumonia. There are small b ilateral pleural effusions. There is no pneumothorax suspected. Cardiomediastinal silhouette is no rmal. The bones and soft tissues are unremarkable. Accounting for differences in technique, there is no significant interval change. IMPRESSION: 1. Tubes, line in position. 2. Stable airspace disease and other findings as above. Reviewed, dictated and finalized at location A. TOR KETTLE OPERATOR
--- NOTE | ~2020-01-28 | XR_ITS ---
EXAMINATION: XR abdomen NG/feed tube insert INDICATION: Nasogastric tube insertion TECHNIQUE: Portable AP KUB-NG at 0959 hours COMPARISON: None FINDINGS: The nasogastric tube is in the stomach. A partially imaged repositioned endotracheal tube e nds 9 mm above the ruchi. There are bibasilar airspace opacities, left greater than right. IMPRESSION: 1. Nasogastric tube in the stomach. 2. Partially imaged repositioned endotracheal tube 9 mm above the ruchi. 3. Bibasilar airspace opacities, consistent with atelectasis versus pneumonia. Reviewed, dictated and finalized at location A. GER HEART
--- NOTE | ~2020-01-28 | MR_ITS ---
EXAMINATION: MR brain/brain stem wo con DATE: 02/22/2020 13:06 INDICATION: Encephalopathy. Anaplastic oligodendroglioma. TECHNIQUE: Magnetic resonance imaging (MRI) of the brain and brainstem was performed without intraven ous contrast. Sequences included sagittal and axial T1-weighted FSE, axial diffusion-weighted FS EPI, axial T2*-weighted GRE, axial T2-weighted FLAIR Propeller, and axial T2-weighted Propeller. Apparent diffusion coefficient (ADC) maps were created. COMPARISON: Head CT 02/11/2020, 10/25/19 FINDINGS: There are changes of resection of right frontal lobe. There is a large distribution of incr eased T2-weighted signal intensity in the frontal lobes, right insula, right basal ganglia, and right temporal lobe, consistent with changes of radiation therapy. Within this distribution, there is thic kening of tissue in the right frontal lobe, right insula, and anterior right temporal lobe. This tiss ue demonstrates calcifications by CT. There are foci of restricted diffusion involving posterior limb right internal capsule. There is no intracranial hemorrhage. There is ex vacuo dilatation of the ant erior bodies of the lateral ventricles. There is mild mucosal thickening in right maxillary sinus. Th e orbits are normal. The mastoid air cells are normal. IMPRESSION: 1. Right frontal lobe resection with stable thickened tissue with calcifications in the right frontal lobe, right insula, and anterior right temporal lobe, consistent with residual anaplastic oligodendr oglioma (see [facility] record from 11/12/18 under a different medical record number). 2. Radiation therapy changes involving the frontal lobes, right insula, right basal ganglia, and righ t temporal lobe. 3. Foci of restricted diffusion involving posterior limb right internal capsule. These findings are a t the margin of the radiation field and may be acute infarct or radiation necrosis. Reviewed, dictated and finalized at location A. F PILOT IMPRESSION: 1. Right frontal lobe resection with stable thickened tissue with calcification s in the right frontal lobe, right insula, and anterior right temporal lobe, co nsistent with residual anaplastic oligodendroglioma (see [facility] record from 11/12/18 under a different medical record number). 2. Radiation therapy changes involving the frontal lobes, right insula, right b sherwin ganglia, and right temporal lobe. 3. Foci of restricted diffusion involving posterior limb right internal capsule . These findings are at the margin of the radiation field and may be acute infa rct or radiation necrosis.
--- NOTE | ~2020-01-28 | XR_ITS ---
EXAMINATION: XR chest 1V portable EXAM DATE: 02/04/2020 06:41 INDICATION: Respiratory failure. TECHNIQUE: Portable AP frontal chest x-ray was obtained. Comparison is made to prior examination from 02/03/2020, 01/30. FINDINGS: Endotracheal tube tip is 3 centimeters above the ruchi (ideal range is between 2 to 5 cm). There is a right-sided PICC line with tip projecting over the SVC. Feeding tube is in position. Small patchy bilateral acute airspace disease likely atelectasis and/or pneumonia. There are small b ilateral pleural effusions. There is no pneumothorax suspected. Cardiomediastinal silhouette is no rmal. The bones and soft tissues are unremarkable. Compared to last several days, there is some interval improvement. IMPRESSION: 1. Tubes, line in position. 2. Improving airspace disease and other findings as above. Reviewed, dictated and finalized at location A. MANAGER
--- NOTE | ~2020-01-28 | CT_ITS ---
EXAMINATION: CT brain wo con EXAM DATE: 02/11/2020 11:15 INDICATION: Altered mental status. COVID 19 positive. TECHNIQUE: Spiral CT of the head was performed without contrast. Axial, coronal and sagittal images were reviewed. The dose-length product (DLP) for this examination was 605.33 mGy-cm. The exposure w as tailored according to patient size, and iterative reconstruction (ASIR) was used as additional dos e reduction technique. Comparison is made to prior examination from 02/05/2020. FINDINGS: There is no significant interval change. There is an old right frontal craniotomy. There is large region of underlying right frontal lobe encephalomalacia. There is calcification within the right frontotemporal region adjacent to the encephalomalacia, likely dystrophic from prior injury. Th ere is moderate chronic underlying cerebral atrophy bilaterally. Bifrontal lobe predominant white mat ter hypodensity, could be radiation related change or microangiopathy. No evidence of brain mass, acu te intracranial hemorrhage, extra-axial collections or obstructive hydrocephalus. Orbits and soft tis sues are unremarkable. IMPRESSION: 1. No acute intracranial findings. 2. Right frontal craniotomy, underlying encephalomalacia and adjacent dystrophic calcifications Reviewed, dictated and finalized at location A. IFIED OPHTHALMIC TECHNOLOGIST IMPRESSION: 1. No acute intracranial findings. 2. Right frontal craniotomy, underlying encephalomalacia and adjacent dystroph ic calcifications
--- NOTE | ~2020-01-28 | XR_ITS ---
EXAMINATION: XR abdomen obstructive series EXAM DATE: 02/08/2020 12:20 INDICATION: ileus . TECHNIQUE: Frontal upright projection of the upper abdomen, frontal projection of the lower abdomen f or interpretation. Comparison is made to prior examination from 01/28/2020. FINDINGS: Feeding tube is in position. ET tube tip above the ruchi. There is expected amount of col onic stool and gas. No small bowel dilation, nonobstructive bowel gas pattern. There are no suspi cious calcifications identified. There is no organomegaly suspected. There are mild bony degenerat denny changes. No evidence of free intraperitoneal gas. IMPRESSION: Unremarkable abdomen x-ray exam. Feeding tube in position. Reviewed, dictated and finalized at location A. STILE COLLECTOR
--- NOTE | ~2020-01-28 | XR_ITS ---
XR chest 1V portable 02/22/2020 08:13 Indication: Pneumonia Procedure: AP portable chest Comparison: Comparison to multiple prior studies sequentially, with oldest reviewed study dated 01/22. Findings: PICC line tip in the SVC. NG tube in the stomach. Persistent patchy bilateral airspace dise ase without significant change. No significant pleural effusion. No pneumothorax. Impression: 1: Stable patchy bilateral airspace disease, compatible with pneumonia. Reviewed, dictated and finalized at location D. CYTOGENETIC TECHNOLOGIST Impression: 1: Stable patchy bilateral airspace disease, compatible with pneumonia.
--- NOTE | ~2020-01-28 | NM_ITS ---
EXAMINATION: NM pulmonary perfusion DATE: 02/23/2020 09:52 INDICATION: Shortness of breath. TECHNIQUE: 5.5 mCi Tc-99m MAA was administered intravenously for perfusion images. Scintigraphic darlin ges of the chest were obtained. COMPARISON: Chest single view 02/22/2020 FINDINGS: Perfusion images show matched defects including large defects in the lower lobes there are matched sm all defects in right upper lobe and matched small and moderate sized defects in left upper lobe.. ] IMPRESSION: 1. Nondiagnostic (intermediate probability for pulmonary embolism). Reviewed, dictated and finalized at location A. AL GUNNER
--- NOTE | ~2020-01-28 | CT_ITS ---
EXAMINATION: CT brain wo con INDICATION: Altered mental status, patient with prior history of three brain tumors with removal of one COMPARISON: 10/25/2019 TECHNIQUE: Standard unenhanced head CT. The dose-length product (DLP) was 605.33 mGy-cm. The mA was a djusted according to patient size. Iterative reconstruction technique was employed. FINDINGS: Changes of right frontotemporal craniotomy are again noted with resection of a large portio n of the right frontal lobe. There are unchanged calcifications at the anterior aspect of the right f rontal lobe remnant and at the medial/inferior right temporal lobe. There is unchanged encephalomalac ia in the superior aspect of the right frontal lobe. No acute intraparenchymal hemorrhage or infarcti on is identified. There is moderate periventricular and subcortical hypodensity, likely related to sm all vessel ischemic disease. Intracranial calcified cerebral atherosclerosis is noted. There is no ma ss effect or midline shift. There is mild mucosal thickening of the paranasal sinuses. IMPRESSION: 1. Right frontotemporal surgical changes without acute intracranial abnormality. 2. Age related findings. Reviewed, dictated and finalized at location A. E SORTER IMPRESSION: 1. Right frontotemporal surgical changes without acute intracranial abnormality . 2. Age related findings.
--- NOTE | ~2020-01-28 | US_ITS ---
EXAMINATION: US venous doppler UE EXAM DATE: 02/16/2020 13:54 INDICATION: Left upper extremity swelling. TECHNIQUE: Multiple grayscale, color flow, Doppler sonographic images of the left upper extremity vei ns obtained by technologist. Exam was portable bedside in the intensive care unit. Compression was pe rformed where able. There is no prior study for comparison. FINDINGS: Left upper extremity: Jugular vein: ------------> Normal. Subclavian vein: --------> Normal. Axillary vein:------------> Normal. Brachial vein:-----------> Normal. Basilic vein: ------------> Normal. Cephalic vein: ----------> Not evaluated. Radial vein: ------------> Normal. Ulnar vein: > Not evaluated. Mild limitations from edema and arm position. IMPRESSION: No evidence of left upper extremity DVT.. Reviewed, dictated and finalized at location B. UNTS PAYABLE ASSOCIATE
--- NOTE | ~2020-01-28 | XR_ITS ---
EXAMINATION: XR chest 1V portable INDICATION: Respiratory failure TECHNIQUE: Portable AP chest at 0738 hours COMPARISON: 02/04/2020 FINDINGS: The endotracheal tube ends approximately 1.5 cm above the ruchi. Nasogastric tube is in th e stomach. A right upper extremity PICC ends with its tip in the proximal superior vena cava. Patchy bilateral airspace opacities persist with slight improvement in the lung bases. There is no pleural e ffusion or pneumothorax. The cardiomediastinal silhouette is stable. IMPRESSION: 1. Improved diffuse lung disease, consistent with atelectasis versus pneumonia. Reviewed, dictated and finalized at location A. ING MACHINE OPERATOR
--- NOTE | ~2020-01-28 | XR_ITS ---
EXAMINATION: XR chest 1V portable INDICATION: Respiratory failure TECHNIQUE: Portable AP chest at 0540 hours COMPARISON: 02/05/2020 FINDINGS: The endotracheal tube ends approximately 2.4 cm above the ruchi. The nasogastric tube is f ollowed as far as the stomach. Its tip is beyond the inferior margin of the radiograph. A right upper extremity PICC ends with its tip in the proximal superior vena cava. Patchy bilateral airspace opaci ties persist without significant change. There is no pleural effusion or pneumothorax. The cardiomedi astinal silhouette is stable. IMPRESSION: 1. Stable diffuse lung disease, consistent with atelectasis versus pneumonia. Reviewed, dictated and finalized at location A. ECT COACH
--- NOTE | ~2020-01-28 | XR_ITS ---
EXAMINATION: XR chest ET placement DATE: 01/28/2020 13:31 INDICATION: Endotracheal tube repositioning TECHNIQUE: frontal view of the chest was obtained. COMPARISON: Chest radiograph dated 01/28/2020 at a 8:26 AM FINDINGS: Endotracheal tube has been withdrawn with distal tip now approximately 3 mm above the level of the ca ovidio remaining directed towards the right mainstem bronchus. Nasogastric tube with proximal side-port in the body of the stomach and with distal tip collimated off the study. Small lung volumes. Improvement in the prior opacities at the left mid to lower lung zone, now essent ially resolved in the midlung zone. Persistent patchy airspace opacities in the right midlung zone. N o pulmonary edema, pleural effusion or pneumothorax. Heart size is normal. IMPRESSION: 1. Endotracheal tube tip 3 mm above the ruchi. Recommend withdrawal by an additional 1-2 cm. 2. Improvement in prior opacities in the left midlung zone which are likely due to atelectasis from t he right mainstem bronchial intubation. 3. Persistent focal airspace opacities in the right mid and left lower lung zones consistent with pne umonia in patient with known COVID 19 infection. Reviewed, dictated and finalized at location A. GER PRICING IMPRESSION: 1. Endotracheal tube tip 3 mm above the ruchi. Recommend withdrawal by an laney tional 1-2 cm. 2. Improvement in prior opacities in the left midlung zone which are likely due to atelectasis from the right mainstem bronchial intubation. 3. Persistent focal airspace opacities in the right mid and left lower lung zon es consistent with pneumonia in patient with known COVID 19 infection.
--- NOTE | ~2020-01-28 | XR_ITS ---
EXAMINATION: XR chest 1V portable DATE: 02/07/2020 05:48 INDICATION: Respiratory failure. COVID-19 pneumonia. TECHNIQUE: A single frontal view of the chest was obtained. COMPARISON: Chest single view 02/06/2020 FINDINGS: The lung volumes are small. There is a diffuse interstitial pattern in the lungs. A calcifi ed right lung nodule is consistent with old granulomatous disease. No pleural effusion or pneumothora x. The heart size is normal. The endotracheal tube tip is 2.6 cm above the ruchi. The nasogastric tu be tip is in the stomach. A right upper extremity peripherally inserted central venous catheter (PICC ) is seen with tip in the right brachiocephalic vein. IMPRESSION: 1. Stable diffuse interstitial pattern in the lungs, consistent with mild pulmonary edema versus atyp ical pneumonia. Reviewed, dictated and finalized at location A. ECH PRODUCTION SPECIALIST IMPRESSION: 1. Stable diffuse interstitial pattern in the lungs, consistent with mild pulmo nary edema versus atypical pneumonia.
--- NOTE | ~2020-01-28 | XR_ITS ---
EXAMINATION: XR chest 1V portable DATE: 01/30/2020 06:23 INDICATION: Respiratory failure. TECHNIQUE: A single frontal view of the chest was obtained. COMPARISON: Chest single view 01/29/2020 FINDINGS: The patient is rotated to her right. There is a diffuse interstitial pattern, consistent wi th mild pulmonary edema. There are airspace opacities in right midlung zone and left mid and lower gisella ng zones. There is a small left pleural effusion. No pneumothorax. The heart size is normal. The endo tracheal tube tip is 2.0 cm above the ruchi. The nasogastric tube tip is in the stomach. A right upp er extremity peripherally inserted central venous catheter (PICC) is seen with tip in the superior ve na cava. IMPRESSION: 1. Mild pulmonary edema. 2. Stable airspace opacities in right midlung zone and worsened airspace opacities in left mid and lo wer lung zones, consistent with atelectasis versus pneumonia. 3. Small left pleural effusion. Reviewed, dictated and finalized at location A. CTOR OF ADVERTISING SALES IMPRESSION: 1. Mild pulmonary edema. 2. Stable airspace opacities in right midlung zone and worsened airspace opacit ies in left mid and lower lung zones, consistent with atelectasis versus pneumo raj. 3. Small left pleural effusion.
--- NOTE | ~2020-01-28 | US_ITS ---
EXAMINATION: US venous doppler [facility] DATE: 02/22/2020 16:36 INDICATION: Lower limb swelling TECHNIQUE: Grayscale ultrasound images without and with compression and Doppler ultrasound images of the bilateral lower extremity veins were obtained. COMPARISON: None. FINDINGS: The visualized portions of right common femoral vein, profunda (deep) femoral vein, femoral vein, pop liteal vein, posterior tibial veins, peroneal veins, gastrocnemius vein and greater saphenous vein ou tflow are patent. The visualized portions of left common femoral vein, profunda femoral vein, femoral vein, popliteal v ein, posterior tibial veins, peroneal veins, gastrocnemius vein and greater saphenous vein outflow ar e patent. IMPRESSION: 1. No deep venous thrombosis in either lower limb. Reviewed, dictated and finalized at location A. NEL DEVELOPMENT MANAGER
--- NOTE | ~2020-01-28 | XR_ITS ---
EXAMINATION: XR chest 1V portable DATE: 02/10/2020 06:09 INDICATION: Acute respiratory failure. COVID-19 pneumonia. TECHNIQUE: A single frontal view of the chest was obtained. COMPARISON: Chest single view 02/09/2020 FINDINGS: There is a diffuse interstitial pattern in the lungs. There are airspace opacities in right mid and upper lung zones and left mid and lower lung zones peripherally. No pleural effusion or pneu mothorax. The heart size is normal. The endotracheal tube tip is 1.4 cm above the ruchi. A right upp er extremity peripherally inserted central venous catheter (PICC) is seen with tip in the superior ve na cava. The nasogastric tube tip is beyond the inferior margin of the radiograph, but at least to th e stomach. IMPRESSION: 1. Stable diffuse lung disease, consistent with atypical pneumonia versus mild pulmonary edema. Reviewed, dictated and finalized at location A. RTISING AGENCY MANAGER
--- NOTE | ~2020-01-28 | CT_ITS ---
EXAMINATION: CTA chest PE protocol EXAM DATE: 02/25/2020 13:44 INDICATION: Shortness of breath. Pneumonia. TECHNIQUE: Spiral CTA of the chest (pulmonary arteries) was performed with 100 cc Omnipaque 350 intr avenous contrast injection. Images were acquired during the pulmonary arterial phase. Coronal maxi mum intensity projection 3D-reconstructions were created by the technologist on dedicated workstation . Axial, coronal and sagittal reformatted images were reviewed. The dose-length product (DLP) for t his examination was 517.94 mGy-cm. The exposure was tailored according to patient size (auto mA exp osure control), and iterative reconstruction (ASIR) was used as additional dose reduction technique. There is no prior study for comparison. FINDINGS: There are no pulmonary emboli in the 1st through 3rd order (central and interlobar) pulmon stephany arteries. Some loss of attenuation in the left basilar segmental pulmonary arteries due to respi ratory motion, but no intraluminal filling defects suspected. No thoracic aortic dissection. Patch y bilateral regions of interlobular septal thickening, atelectasis with some interspersed groundglass opacities in smaller regions of confluence. There is mild to moderate emphysema. There are no pleur al or pericardial effusions. Tracheobronchial tree is patent. There is no mediastinal, hilar or a xillary lymphadenopathy. There is no pneumothorax. Heart normal in size. Left liver lobe appears atrophic, with regions of serpiginous enhancement, appearance suggests some a rteriovenous shunting. No definite underlying mass. There is small sliding gastroesophageal hiatal he rnia. There is mild coronary arterial calcification, arterial sclerosis. Upper abdomen is unremark able. There is thoracic spondylosis without osteoblastic or osteolytic lesions identified. IMPRESSION: 1. Limited left basilar segmental evaluation, but no pulmonary emboli are suspected. 2. Scattered groundglass opacities, intralobular septal thickening, small regions of confluence. Pro bably acute infection and atelectasis but uncertain amount of chronic component also possible. 3. Mild to moderate emphysema. 4. Left hepatic lobe vascular shunting without definite underlying mass. 5. Small hiatal hernia. Reviewed, dictated and finalized at location A. ING MACHINE OPERATOR AUTOMATIC IMPRESSION: 1. Limited left basilar segmental evaluation, but no pulmonary emboli are susp ected. 2. Scattered groundglass opacities, intralobular septal thickening, small kristina ons of confluence. Probably acute infection and atelectasis but uncertain amoun t of chronic component also possible. 3. Mild to moderate emphysema. 4. Left hepatic lobe vascular shunting without definite underlying mass. 5. Small hiatal hernia.
--- NOTE | ~2020-01-28 | XR_ITS ---
XR chest 1V portable 02/21/2020 13:58 Indication: Possible aspiration. Respiratory failure. Procedure: AP portable chest Comparison: Comparison to multiple prior studies sequentially, with oldest reviewed study dated 01/22. Findings: Persistent patchy bilateral airspace disease, most confluent in the lower lungs. NG tube in the stomach. PICC line tip in the SVC. No pneumothorax. No significant pleural effusion. Impression: 1: Persistent patchy bilateral airspace disease, most likely pneumonia. Edema less favored. Reviewed, dictated and finalized at location B. ER SUPERIOR Impression: 1: Persistent patchy bilateral airspace disease, most likely pneumonia. Edema l ess favored.
--- NOTE | ~2020-01-28 | CT_ITS ---
EXAMINATION: CT brain wo con EXAM DATE: 02/05/2020 15:23 INDICATION: altered mental status . TECHNIQUE: Spiral CT of the head was performed without contrast. Axial, coronal and sagittal images were reviewed. The dose-length product (DLP) for this examination was 605.33 mGy-cm. The exposure w as tailored according to patient size, and iterative reconstruction (ASIR) was used as additional dos e reduction technique. Comparison is made to prior examination from 01/29/2020. FINDINGS: There is an old right frontal craniotomy. There is large region of underlying right frontal lobe encephalomalacia. There is calcification within the right frontotemporal region adjacent to the encephalomalacia, likely dystrophic from prior injury. There is moderate chronic underlying atrophy. Bifrontal lobe predominant white matter hypodensity, could be radiation related change or microangio celi. No evidence of brain mass, acute intracranial hemorrhage, extra-axial collections or obstructi ve hydrocephalus. Orbits and soft tissues are unremarkable. There is no significant interval change. IMPRESSION: 1. No acute intracranial findings. 2. Right frontal craniotomy, underlying encephalomalacia and dystrophic calcifications Reviewed, dictated and finalized at location A. LDER PAD MOLDER IMPRESSION: 1. No acute intracranial findings. 2. Right frontal craniotomy, underlying encephalomalacia and dystrophic calcif ications
--- NOTE | 2020-01-28 08:12 | PC.NURSE ---
0812: -ERP GARETT READY TO EMERGENTLY INTUBATE AT THIS TIME -RESPIRATORY AND RN RACHEL QUIROS AND ITZ AT BEDSIDE 0813: 30MG ETOMIDATE AND 100 MG SUCCINOCHOLINE GIVEN -PT INTUBATED WITH 7.5MM ETT 25 AT THE LIP. POSITIVE COLOR CHANGE FOR CAPNO AND BILATERAL BREATH SOUNDS ASSESSED. PORTABLE CHEST XRAY OBTAINED.
[2020-01-28] MEDS: SODIUM CHLORIDE 0.9% IV 2,000 ML/1,000 ML BAG 999 ML IV CONT ×2 (08:20→10:37)
--- NOTE | 2020-01-28 08:25 | PC.NURSE ---
PT BECOMING RESTLESS, VERBAL ORDER GIVEN PER NAI BAJWA FOR IVP 2MG VERSED STAT. MEDICATION GIVEN AT THIS TIME.
--- NOTE | 2020-01-28 08:36 | ED.AMS ---
HPI - Altered Mental Status General Chief Complaint: Altered Mental Status Stated Complaint: unresponsive Time Seen by Provider: 01/28/20 08:18 History of Present Illness HPI narrative: Patient is a 75-year-old female who presents ER with altered mental status. At baseline patient is oriented x3. She recently became Covid positive. Patient with rapid and shallow rapid respirations for EMS. Upon arrival patient requiring bag valve assistance with breathing.. She is responsive to noxious stimuli and does not follow commands or answer questions. Related Data Home Medications Medication Instructions Recorded Confirmed Lactobacillus acidophilus 1 tablet PO BID 01/28/20 01/28/20 ergocalciferol (vitamin D2) 1,250 mcg PO WEEKLY 01/28/20 01/28/20 insulin glargine [Basaglar KwikPen 14 unit SUBCUT BID 01/28/20 01/28/20 U-100 Insulin] omeprazole 20 mg PO BID 01/28/20 01/28/20 oxybutynin chloride 5 mg PO DAILY 01/28/20 01/28/20 promethazine [Phenergan] 25 mg VA Q6H PRN 01/28/20 01/28/20 sennosides [senna] 8.6 mg PO BID PRN 01/28/20 01/28/20 Allergies Allergy/AdvReac Type Severity Reaction Status Date / Time codeine Allergy Unknown Verified 01/28/20 17:25 erythromycin base Allergy Unknown Verified 01/28/20 17:25 hydrocodone Allergy Unknown Verified 01/28/20 17:25 ibuprofen Allergy Unknown Verified 01/28/20 17:25 Iodinated Contrast Media Allergy Unknown Verified 01/28/20 17:25 meperidine Allergy Unknown Verified 01/28/20 17:25 mepivacaine [From Carbocaine] Allergy Unknown Verified 01/28/20 17:25 propoxyphene Allergy Unknown Verified 01/28/20 17:25 shellfish derived Allergy Hives Verified 01/28/20 14:46 Sulfa (Sulfonamide Allergy Unknown Verified 01/28/20 14:46 Antibiotics) Review of Systems Review of Systems: ROS unobtainable: Yes unobtainable due to medical condition PMFSH Past Medical History Medical History (Updated 01/28/20 @ 18:53 by Marvin Jacobson MD) Chronic GERD DM2 (diabetes mellitus, type 2) Surgical History Surgical History (Updated 01/28/20 @ 14:04 by Monik Dorsey NP) History of brain surgery resection of brain tumor Family History Family History Sibling Breast cancer Father Lung cancer Social History Social History (Updated 01/28/20 @ 14:12 by Monik Dorsey NP) Social History: according to her records she does not smoke or drink any more however she is listed as a former smoker. she lives in a snf . She is listed as . she does have a durable power transactional attorney for healthcare. She has a julia Lenin [phone] is a durable power transactional attorney. She also has her brother Larry listed as a hospital personnel director [phone]. Years smoked: 46 Smoking status: Former smoker Tobacco type: cigarettes Smoking end date: 10/22/17 Living arrangements: snf Gender identity (if verbalized by the patient): Female Exam Narrative: Exam Narrative: GENERAL: ill-appearing, well-nourished, and in severe distress. HEAD: Normocephalic, atraumatic. EYES: PERRL. ENT: Dry mucous membranes. CHEST: Poor respiratory effort with crackled lung sounds bilaterally. Requiring bag valve mask assistance for breathing. HEART: Regular rate and rhythm. Normal peripheral pulses. ABDOMEN: Soft, nontender, nondistended. EXTREMITIES: Normal range of motion. No edema. SKIN: Warm, dry, no rash. NEURO: Patient is not alert nor oriented. Course Course Emergency Course: Patient intubated. Blood pressure is stable and she is sedated with fentanyl and Versed. Patient has been started on Decadron for hypoxia with Covid pneumonia. She will also be started on cefepime and vancomycin and recommendation ICU for possible UTI as well as her pneumonia. I been in contact with the patient's POA Julia as well as additional family members. I explained to them the seriousness of the patient's condition. I have updated them on the treatment
[2020-01-28] MEDS: FENTANYL 2,500MCG/NS250ML(*CRX 2,500 MCG/250 ML BAG IV CONT (08:49)
[2020-01-28 08:52] LABS: Basophils Percent Auto 0.4 % (0.2-1.2); Hematocrit 54.1 % (37.0-47.0); Hemoglobin 15.7 g/dL (12.0-15.0); Immature Granulocyte Absolute 0.06 K/mm3 (0.00-0.031); Immature Granulocyte Percent A 0.7 % (0-0.5); Lymphocytes Absolute Auto 3.15 K/mm3 (0.9-3.2); Lymphocytes Percent Auto 37.9 % (18.3-44.2); Mean Corpuscular Volume 89.6 fl (80-100); Mean Platelet Volume 10.8 fl (7.4-10.4); Monocytes Absolute Auto 0.4 K/mm3 (0.1-0.6); Monocytes Percent Auto 4.5 % (2.6-8.5); Neutrophils Absolute Auto 4.7 K/mm3 (1.3-6.7); Neutrophils Percent Auto 56.5 % (45.5-73.1); Platelet Count Result 192 k/mm3 (150-375); Red Blood Count 6.04 M/mm3 (4.2-5.4); Red Cell Distribution Width 17.4 % (11.5-14.5); White Blood Count 8.3 K/mm3 (4.5-10.0)
[2020-01-28 09:00] LABS: INR 1.1; Prothrombin Time 14.8 Seconds (11.1-14.7)
[2020-01-28 09:01] LABS: Partial Thromboplastin Time 30.5 SECONDS (22.3-36.8)
[2020-01-28 09:09] LABS: Alanine Aminotransferase 182 U/L (4-35); Albumin Level 3.9 g/dL (3.5-5.1); Alkaline Phosphatase 160 U/L (38-126); Anion Gap 11 mmol/L (8-16); Aspartate Amino Transferase 179 U/L (14-36); Bilirubin,Total 0.9 mg/dL (0.2-1.3); Blood Urea Nitrogen 53 mg/dL (7-17); CRP 5.1 mg/dL (<1.0); Calcium 10.1 mg/dL (8.4-10.2); Carbon Dioxide 30 mmol/L (22-30); Chloride 126 mmol/L (98-107); Estimated Glomerular Filt Rate 29; Glucose 356 mg/dL (65-105); Potassium 4.9 mmol/L (3.4-5.0); Sodium 167 mmol/L (137-145)
--- NOTE | 2020-01-28 09:21 | ECG_ITS ---
Measurements Intervals [place] Rate: 108 P: 64 IN: 121 QRS: -52 QRSD: 80 T: 77 QT: 317 QTc: 425 Interpretive Statements SINUS TACHYCARDIA LOW QRS VOLTAGE- DIFFUSE LEADS BORDERLINE R WAVE PROGRESSION, ANTERIOR LEADS INFERIOR INFARCT, AGE INDETERMINATE BORDERLINE ST-T WAVE ABNORMALITY- ANTEROLAT/HIGH LAT LEADS BASELINE WANDER- I, II, III, AVR, AVL, AVF, V4-V6 ABNORMAL ECG Electronically Signed On 01-28-2020 9:35:54 TEARER PRESS CLIPPING by Bryon Reyes D.O.
[2020-01-28 09:28] LABS: Alveolar/Arterial O2 Gradient 617.8 mmHg; Base Excess ABG -2.4 mEq/l (+/-2.0); Fractional Inspired Oxygen 100 %; HCO3 ABG 22.8 mEq/l (22.0-26.0); Oxygen Content ABG 16.1 %vol (16.0-22.0); Oxygen Saturation ABG 87.2 % (95.0-100.0); Oxyhemoglobin 85.1 % THb (90.0-100.0); PCO2 ABG 40.9 mmHg (35.0-45.0); PO2 ABG 54.3 mmHg (80.0-100.0); PO2 FiO2 Ratio Arterial Blood 0.54 %; Total Hemoglobin 13.5 g/dL (12.0-18.0); pH ABG 7.364 (7.350-7.450)
[2020-01-28 09:29] LABS: Device VENTILATOR; Modified Allen's Test Pass; Site Drawn LEFT RADIAL
[2020-01-28 09:30] LABS: Arterial Blood Gas PEEP 5 cmH2O; Arterial Blood Gas Tidal Volume 370 ml; Arterial Blood Gas Vent Mode CMV; Arterial Blood Gas Ventilator rate 16 /MIN
--- NOTE | 2020-01-28 09:37 | PC.NURSE ---
BETTE HIGGINBOTHAM AT BEDSIDE COLLECTING URINE AND REDRAWING LACTIC ACID.
--- NOTE | 2020-01-28 09:40 | PC.NURSE ---
PT DIFFICULT STICK, STUCK X6 FOR LACTIC THAT WAS REJECTED.
[2020-01-28] MEDS: DEXAMETHASONE SOD PHOS INJ 4 MG/ML VIAL 6 MG IV PUSH (09:58)
[2020-01-28 10:22] LABS: Add Urine Microscopic? YES; Appearance Urine Cloudy (Clear); Bacteria Urine 4+ /hpf; Bilirubin Urine Negative (Negative); Blood Urine 2+ (Negative); Budding Yeast Urine Present /hpf; Color Urine Amber (Yellow); Glucose Urine UA Negative (Negative); Ketones Urine Negative (Negative); Leukocyte Esterase Ur 3+ LEU/UL (Negative); Mucus Urine Heavy /lpf; Nitrate Urine Negative (Negative); Protein Urine 2+ mg/dL (Negative); RBC Urine 51-75 /hpf (0-2); Specific Grav Ur 1.024 (1.001-1.035); Squamous Epithelial Cell Urine Many /hpf (Few); Transitional Epi Cells Urine Rare /hpf (None Seen); WBC Urine 31-50 /hpf
--- NOTE | 2020-01-28 10:30 | PC.NURSE ---
ABLE TO OBTAIN LACTIC AT THIS TIME.
[2020-01-28] MEDS: SODIUM CHLORIDE 0.45% 1,000 ML 75 ML IV CONT (11:14)
[2020-01-28 11:19] LABS: Lactic Acid Reflex 2.5 mmol/L (0.7-2.1)
--- NOTE | 2020-01-28 12:00 | PC.NURSE ---
ATTEMPTED REPORT TO VICTORINO HILARIO, WAS INFORMED HE IS IN A ROOM AND WILL CALL BACK.
--- NOTE | 2020-01-28 12:16 | WPDCNINT ---
Assessment and Plan Assessment and plan (1) Acute respiratory failure: Code(s): J96.00 - Acute respiratory failure, unspecified whether with hypoxia or hypercapnia Status: Acute Assessment and Plan: Acute Respiratory failure secondary to healthcare associated pneumonia versus COVID-19, ? questionable baseline COPD Continue full mechanical ventilation support to prevent hypoxemia/hypercarbia and end organ damage. ABG and PCXR reviewed and will repeat in am. Withdraw ETT by 2 cm Broad-spectrum antibiotics vancomycin cefepime and azithromycin Bronchodilators (2) Sepsis: Code(s): A41.9 - Sepsis, unspecified organism Status: Acute Assessment and Plan: Sepsis secondary to healthcare associated pneumonia and UTI Blood, urine and sputum e 30 mL/kg IV fluid bolus Empiric vancomycin cefepime and azithromycin monitor lactic acid level (3) Pneumonia: Code(s): J18.9 - Pneumonia, unspecified organism Status: Acute Assessment and Plan: see above (4) COVID-19: Code(s): U07.1 - COVID-19 Status: Acute Assessment and Plan: SARS-CoV-2 PCR was positive at group home. date of testing is not available yet. will try to obtain records from group home Patient is in Airborne, Droplet and Contact Isolation started on On dexamethasone Cautious IVF Continue antibiotics for empiric bacterial coverage Check inflammatory marker Not a candidate for remdesivir due to acute kidney injury and elevated LFTs (5) Acute hypernatremia: Code(s): E87.0 - Hyperosmolality and hypernatremia Status: Acute Assessment and Plan: Hypernatremia and hyperchloremia suggestive of intravascular volume depletion Patient currently on half-normal saline Monitor sodium level (6) Elevated transaminase level: Code(s): R74.01 - Elevation of levels of liver transaminase levels Status: Acute Assessment and Plan: monitor (7) JOSE ANGEL (acute kidney injury): Code(s): N17.9 - Acute kidney failure, unspecified Status: Acute Assessment and Plan: JOSE ANGEL likely prerenal from sepsis and hypovolemia Continue fluid resuscitation Monitor creatinine electrolytes and urine output (8) Encephalopathy acute: Code(s): G93.40 - Encephalopathy, unspecified Status: Acute Assessment and Plan: likely toxic metabolic encephalopathy check head CT Additional Plan DVT prophylaxis - Lovenox Stress ulcer prophylaxis - Pepcid Nutrition - NPO at this time Code Status - Full Code Total Critical Care Time - 40 minutes Due to a high probability of clinically significant, life threatening deterioration, the patient required my highest level of preparedness to intervene emergently and I personally spent this critical care time directly and personally managing the patient. This critical care time included obtaining a history; examining the patient; pulse oximetry; ordering and review of studies; arranging urgent treatment with development of a management plan; evaluation of patient's response to treatment; frequent reassessment; and discussions with other providers. It was exclusive of separately billable procedures and treating other patients and teaching time. Please see Assessment and Plan section and the rest of the note for further information on patient assessment and treatment Vehicle Fuel Systems Converter Consult Note Consult date: 01/28/20 Time Seen: 12:45 HPI: Linette Vásquez is a 75 year old female who presents ER with altered mental status. At baseline patient is a group home resident and oriented x3. She recently was tested positive for Covid . Patient with rapid and shallow rapid respirations for EMS. Upon arrival patient was hypoxic and requiring bag valve assistance with breathing.. She was responsive to noxious stimuli but did not follow commands or answer questions. She was intubated in ER and placed on mechanical ventilation
--- NOTE | 2020-01-28 12:49 | PM.IMHP ---
H&P: HPI History of Present Illness Date/Time: 01/28/20 12:49 Chief complaint: Respiratory Failure/kath/COVID Pneumonia/hypernatre Narrative: Linette Vásquez is a 75 year old female Who is from [facility]. The patient was found to be positive for COVID recently. Listed on records 01-22-20 she was found to be COVID positive The patient came to the emergency room today via EMS for altered mental status changes. The patient had rapid shallow respirations for EMS and she was requiring bag-valve assistance with breathing. The patient was responsive to noxious stimuli but did not follow command. When I assessed her she was moving her left leg. Patient was intubated in the emergency room. Initially the chest x-ray was read as endotracheal tube in the right main stem bronchus repositioning is recommended. There Metal Tank Erector told me that the patient had been 23 at the lip and the ET tube was pulled back to 21. patient H&H is 15.7 in 54.1. Patient's vent settings were per ED physician. Vent rate of 16 met mode is CMV FiO2 is 100% tidal volume 370 with a PEEP of 5. Patient's sodium is 167 and chloride 126. BUN 53 creatinine 1.7. Glucose 356. Lactic acid 2.5. AST 179, ALT 182 alkaline phosphatase 160, C reactive protein 5.1. Urine was cloudy 2+ protein 2+ blood 3+ leukocyte Estrace 51-75 rbc's wbc's 3150 urine bacteria 4+. The patient has multiple drug allergies. She was started on dexamethasone and vancomycin. Patient is on cefepime. The patient was given 2 L of normal saline in the and her fluids were changed to half-normal saline. Patient's abdominal x-ray shows NG tube in the stomach partially imaged reposition endotracheal tube 9 mm above the ruchi bibasilar airspace opacities consistent with atelectasis versus pneumonia. Physical Therapist Technician has been consulted. Patient is admitted inpatient to ICU on the date of service 01/28/2020. Review of Systems Review of Systems: ROS unobtainable: Yes unobtainable due to endotracheal tube Constitutional: Constitutional: Reports as per HPI and Reports no additional constitutional complaints Eyes: Eyes: Reports as per HPI and Reports no additional eye complaints ENT: Reports system reviewed and no additional complaints, except as documented and Reports Normal hearing present Cardiovascular: Cardiovascular: Reports no additional cardiovascular complaints Respiratory: Respiratory: Reports no additional respiratory complaints and Reports no additional respiratory complaints Gastrointestinal: Gastrointestinal: Reports as per HPI and Reports no additional gastrointestinal complaints Musculoskeletal: Musculoskeletal: Reports no additional musculoskeletal complaints Integumentary/Breasts: Skin/Breast: Reports system reviewed and no additional complaints, except as docu and Reports as per HPI Neurologic: Reports system reviewed and no additional complaints, except as documented, Reports as per HPI and Reports Normal hearing present Psychiatric: Psychiatric: Reports no additional psychiatric complaints and Reports as per HPI Endocrine: Endocrine: Reports no additional endocrine complaints Hematologic/Lymphatic: Hematologic/Lymphatic: Reports no additional hematologic/lymphatic complaints Allergic/Immunologic: Allergic/Immunologic: Reports no additional allergic/immunologic complaints [facility] Past Medical History Medical History (Updated 01/28/20 @ 14:07 by Monik Dorsey NP) Chronic GERD DM2 (diabetes mellitus, type 2) Surgical History Surgical History (Updated 01/28/20 @ 14:04 by Monik Dorsey NP) History of brain surgery resection of brain tumor Family History Family History (Updated 01/28/20 @ 14:05 by Monik Dorsey NP) Sibling Breast cancer Father Lung cancer Social History Social History (Updated 01/28/20 @ 14:12 by Monik Dorsey NP) Social History: according to her records she does not smoke or drink any more however she is lis
[2020-01-28 14:03] LABS: Reflex Lactic Acid Yes or No Add Lactic
--- NOTE | 2020-01-28 14:17 | ADMGEN ---
This patient, Linette Vásquez, was admitted to Intensive Care Unit-11. Patient/family oriented to hospital policies and general routines including ID bracelet, bed and alarms, visiting hours, pain management, procedures, bathroom and other care routines, personal items, smoking policy, room service/diet, and visiting hours. Information on how to activate the Rapid Response Team has been discussed. Patient/Family are encouraged to report perceived risks to care and to ask questions if they do not understand what they are told or what they should do.
[2020-01-28 16:21] LABS: Lactic Acid Reflex 1.3 mmol/L (0.7-2.1)
[2020-01-28 16:28] LABS: Anion Gap 6 mmol/L (8-16); Blood Urea Nitrogen 46 mg/dL (7-17); Calcium 7.8 mg/dL (8.4-10.2); Carbon Dioxide 24 mmol/L (22-30); Chloride 131 mmol/L (98-107); Estimated CRCL calculation 27 ml/min; Estimated Glomerular Filt Rate 37; Glucose 498 mg/dL (65-105); Potassium 3.8 mmol/L (3.4-5.0); Sodium 161 mmol/L (137-145)
[2020-01-28] MEDS: ENOXAPARIN 30 MG/0.3 ML SYRINGE SUB-Q (16:49)
[2020-01-28 17:00] LABS: Lactate Dehydrogenase 1613 U/L (313-618)
[2020-01-28] MEDS: INSULIN GLARGINE (*BKC) 100 UNITS/ML 20 UNITS SUB-Q (17:03)
[2020-01-28] MEDS: INSULIN HUMAN REGULAR (*BKC) 100 UNITS/ML 10 UNITS IV PUSH (17:04)
[2020-01-28 17:24] LABS: Glucose Point of Care 450 (65-105)
[2020-01-28 18:33] LABS: Sodium Urine Random 23 meq/L
[2020-01-28 19:49] LABS: Glucose Point of Care 360 (65-105)
[2020-01-28] MEDS: FAMOTIDINE 20 MG TABLET PO (20:57)
[2020-01-28] MEDS: TOLNAFTATE 1% POWDER 45 GM BTL 1 APPLIC TOPICAL (20:57)
[2020-01-28] MEDS: INSULIN ASPART (*BKC) 100 UNITS/ML SUB-Q (20:58)
[2020-01-28 21:51] LABS: Anion Gap 7 mmol/L (8-16); Blood Urea Nitrogen 48 mg/dL (7-17); Calcium 8.1 mg/dL (8.4-10.2); Carbon Dioxide 24 mmol/L (22-30); Chloride 129 mmol/L (98-107); Estimated CRCL calculation 27 ml/min; Estimated Glomerular Filt Rate 37; Glucose 460 mg/dL (65-105); Potassium 3.6 mmol/L (3.4-5.0); Sodium 160 mmol/L (137-145)
[2020-01-29] VITALS (37 sets, daily range): BP systolic 70–150; BP diastolic 45–72; PULSE 38–76; RESP 16–20; TEMP 35.5–36.2; O2SAT 92–99
[2020-01-29] MEDS: INSULIN ASPART (*BKC) 100 UNITS/ML SUB-Q ×5 (00:33→22:16)
[2020-01-29 00:39] LABS: Glucose Point of Care 399 (65-105)
[2020-01-29 05:20] LABS: Alveolar/Arterial O2 Gradient 332.2 mmHg; Base Excess ABG -4.7 mEq/l (+/-2.0); Carboxyhemoglobin 0.2 % THb (0-2.0); Fractional Inspired Oxygen 60 %; HCO3 ABG 19.6 mEq/l (22.0-26.0); Methemoglobin ABG 0.2 %THb (0-1.5); Oxygen Content ABG 19.6 %vol (16.0-22.0); Oxygen Saturation ABG 89.8 % (95.0-100.0); Oxyhemoglobin 88.9 % THb (90.0-100.0); PCO2 ABG 34.2 mmHg (35.0-45.0); PO2 FiO2 Ratio Arterial Blood 0.97 %; Reduced Hemoglobin 10.7 %THb (0-5.0); Total Hemoglobin 15.7 g/dL (12.0-18.0); pH ABG 7.375 (7.350-7.450)
[2020-01-29 05:21] LABS: Hematocrit 39.6 % (37.0-47.0); Hemoglobin 11.7 g/dL (12.0-15.0); Mean Corpuscular HGB Conc 29.5 g/dl (32-36); Mean Platelet Volume 10.3 fl (7.4-10.4); Platelet Count Result 158 k/mm3 (150-375); Red Cell Distribution Width 16.3 % (11.5-14.5); White Blood Count 6.9 K/mm3 (4.5-10.0)
[2020-01-29 05:21] LABS: Device VENTILATOR; Modified Allen's Test Pass; Site Drawn RIGHT RADIAL
[2020-01-29] MEDS: SODIUM CHLORIDE 0.45% 1,000 ML 75 ML IV CONT (05:21)
[2020-01-29 05:22] LABS: Arterial Blood Gas PEEP 5 cmH2O; Arterial Blood Gas Tidal Volume 370 ml; Arterial Blood Gas Vent Mode CMV; Arterial Blood Gas Ventilator rate 16 /MIN
[2020-01-29 05:32] LABS: Glucose Point of Care 322 (65-105)
[2020-01-29 05:35] LABS: Hemoglobin A1C 10.9 % (<5.7)
[2020-01-29 05:46] LABS: Anion Gap 8 mmol/L (8-16); Blood Urea Nitrogen 45 mg/dL (7-17); Calcium 8.2 mg/dL (8.4-10.2); Carbon Dioxide 21 mmol/L (22-30); Chloride 133 mmol/L (98-107); Estimated CRCL calculation 32 ml/min; Estimated Glomerular Filt Rate 44; Glucose 318 mg/dL (65-105); Potassium 3.4 mmol/L (3.4-5.0); Sodium 162 mmol/L (137-145)
[2020-01-29 05:47] LABS: Alanine Aminotransferase 116 U/L (4-35); Albumin Level 3.1 g/dL (3.5-5.1); Alkaline Phosphatase 115 U/L (38-126); Anion Gap 6 mmol/L (8-16); Aspartate Amino Transferase 111 U/L (14-36); Bilirubin,Total 0.9 mg/dL (0.2-1.3); Blood Urea Nitrogen 44 mg/dL (7-17); Calcium 8.1 mg/dL (8.4-10.2); Carbon Dioxide 23 mmol/L (22-30); Chloride 132 mmol/L (98-107); Estimated CRCL calculation 32 ml/min; Estimated Glomerular Filt Rate 44; Glucose 318 mg/dL (65-105); Magnesium 2.4 mg/dL (1.6-2.3); Potassium 3.4 mmol/L (3.4-5.0); Sodium 161 mmol/L (137-145)
--- NOTE | 2020-01-29 07:00 | WPDINTPN ---
Progress Note: A&P Assessment and Plan (1) Acute respiratory failure: Code(s): J96.00 - Acute respiratory failure, unspecified whether with hypoxia or hypercapnia Status: Acute Assessment and Plan: Acute Respiratory failure secondary to healthcare associated pneumonia versus COVID-19, ? questionable baseline COPD Continue full mechanical ventilation support to prevent hypoxemia/hypercarbia and end organ damage. ABG and PCXR reviewed and will repeat in am. Advance ETT by 2 cm into the patient Broad-spectrum antibiotics vancomycin cefepime Bronchodilators (2) Sepsis: Code(s): A41.9 - Sepsis, unspecified organism Status: Acute Assessment and Plan: Sepsis secondary to healthcare associated pneumonia and UTI Blood, urine and sputum e 30 mL/kg IV fluid bolus Empiric vancomycin cefepime and azithromycin lactic acid level has normalized now (3) Pneumonia: Code(s): J18.9 - Pneumonia, unspecified organism Status: Acute Assessment and Plan: see above (4) COVID-19: Code(s): U07.1 - COVID-19 Status: Acute Assessment and Plan: SARS-[facility] date of testing is not available yet. will [facility] to obtain [facility] Patient is in Airborne, Droplet and Contact Isolation started on On dexamethasone Cautious IVF Continue antibiotics for empiric bacterial coverage monitor inflammatory marker start remdesivir as renal function and LFTs are improving (5) Acute hypernatremia: Code(s): E87.0 - Hyperosmolality and hypernatremia Status: Acute Assessment and Plan: Hypernatremia and hyperchloremia suggestive of intravascular volume depletion improving Patient currently on half-normal saline we will add free water through NG tube Monitor sodium level (6) Elevated transaminase level: Code(s): R74.01 - Elevation of levels of liver transaminase levels Status: Acute Assessment and Plan: improving. continue to monitor (7) JOSE ANGEL (acute kidney injury): Code(s): N17.9 - Acute kidney failure, unspecified Status: Acute Assessment and Plan: JOSE ANGEL likely prerenal from sepsis and hypovolemia US - Sonographically unremarkable kidneys. improved Continue cautious fluid resuscitation Monitor creatinine electrolytes and urine output (8) Encephalopathy acute: Code(s): G93.40 - Encephalopathy, unspecified Status: Acute Assessment and Plan: likely toxic metabolic encephalopathy pending head CT (9) DM2 (diabetes mellitus, type 2): Code(s): E11.9 - Type 2 diabetes mellitus without complications Status: Chronic Assessment and Plan: uncontrolled likely worsened by dexamethasone add Lantus, continue sliding scale may need insulin drip Additional Plan DVT prophylaxis - Lovenox Stress ulcer prophylaxis - Pepcid Nutrition - NPO at this time Code Status - Full Code as per patient's niece who is her POA. I spoke to yesterday by phone and confirmed code status Total Critical Care Time - 30 minutes Due to a high probability of clinically significant, life threatening deterioration, the patient required my highest level of preparedness to intervene emergently and I personally spent this critical care time directly and personally managing the patient. This critical care time included obtaining a history; examining the patient; pulse oximetry; ordering and review of studies; arranging urgent treatment with development of a management plan; evaluation of patient's response to treatment; frequent reassessment; and discussions with other providers. It was exclusive of separately billable procedures and treating other patients and teaching time. Please see Assessment and Plan section and the rest of the note for further information on patient assessment and treatment Subjective Date/time seen: 01/29/20 700 Overnight events reviewed. Afebril
[2020-01-29] MEDS: ENOXAPARIN 30 MG/0.3 ML SYRINGE SUB-Q (08:38)
[2020-01-29] MEDS: TOLNAFTATE 1% POWDER 45 GM BTL 1 APPLIC TOPICAL ×2 (08:38→21:57)
[2020-01-29] MEDS: FAMOTIDINE 20 MG TABLET PO ×2 (08:39→21:57)
[2020-01-29] MEDS: DEXAMETHASONE SOD PHOS INJ 4 MG/ML VIAL 6 MG IV PUSH (08:39)
[2020-01-29] MEDS: INSULIN GLARGINE (*BKC) 100 UNITS/ML 30 UNITS SUB-Q (10:05)
[2020-01-29] MEDS: POTASSIUM CHLORIDE 20 MEQ PACKET (FOR LIQUID) 40 MEQ FEED TUBE (10:05)
[2020-01-29] MEDS: REMDESIVIR 200 MG/NS 250 ML 200 MG/250 ML BAG 250 MG IVPB (10:06)
[2020-01-29 12:34] LABS: Glucose Point of Care 196 (65-105)
[2020-01-29 12:40] LABS: Anion Gap 9 mmol/L (8-16); Blood Urea Nitrogen 40 mg/dL (7-17); Calcium 7.8 mg/dL (8.4-10.2); Carbon Dioxide 24 mmol/L (22-30); Chloride 131 mmol/L (98-107); Estimated CRCL calculation 34 ml/min; Estimated Glomerular Filt Rate 49; Glucose 194 mg/dL (65-105); Sodium 164 mmol/L (137-145)
[2020-01-29 12:40] LABS: Glucose Point of Care 266 (65-105)
[2020-01-29] MEDS: DEXTROSE 5% 1,000 ML 1,000 ML 100 ML IV CONT (13:49)
[2020-01-29] MEDS: CENTRAL LINE FLUSH 10 ML IV PUSH ×2 (13:51→21:59)
--- NOTE | 2020-01-29 14:55 | PM.EVENT ---
Event Note Event Note Event Note: Spoke to patient's niece and her father by phone and gave them an update of patient status. Discussed benefits and risks of convalscent plasma therapy for COVID-19. I explained patient the risks of donor plasma which includes allergic reaction, transfusion reaction, possible transmission of infections like Hepatitis and HIV and even . Explained that donor plasma has shown benefit in some studies but is not a proven therapy. They understands the risks, patient's niece who is patient's POAis agreeable to proceed and gave her informed consent. I have placed order for 1 unit of convalscent plasma. earlier sodium came back higher on repeat BMP. Fluid was changed to D5 water. she is getting free water through NG tube. continue monitoring. head CT unchanged from previous
[2020-01-29] MEDS: NOREPINEPHRINE 8 MG/D5W 250 ML 8 MG/250 ML BAG 9.38 MG IV CONT (17:30)
[2020-01-29 17:31] LABS: Glucose Point of Care 263 (65-105)
[2020-01-29] MEDS: ATROPINE SULFATE 1 MG/10 ML SYRINGE IV PUSH (17:50)
--- NOTE | 2020-01-29 18:02 | PM.IMPN ---
Progress Note: A&P Assessment and Plan (1) Acute respiratory failure: Code(s): J96.00 - Acute respiratory failure, unspecified whether with hypoxia or hypercapnia Status: Acute Assessment and Plan: Healthcare associated pneumonia versus covid 19. Patient was placed in ICU . she is intubated placed on a ventilator. She is listed as a full code. Ventilator settings per detacker. Patient is on vancomycin cefepime and azithromycin for the possibility healthcare associated pneumonia. She is also placed on Decadron due to the COVID-19. No antiviral at this time. Due to the acute renal failure and elevated liver enzymes. 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 (2) Sepsis: Code(s): A41.9 - Sepsis, unspecified organism Status: Acute Assessment and Plan: Blood cultures are pending. Urine and sputum are also pending patient was given an IV bolus 30 milliliters/kilogram in the emergency room. Patient was started on vancomycin cefepime and azithromycin for possibility of healthcare associated pneumonia. (3) Pneumonia: Code(s): J18.9 - Pneumonia, unspecified organism Status: Acute Assessment and Plan: Sputum cultures when able. Blood cultures are pending. Patient is on broad-spectrum antibiotics per protocol for healthcare associated pneumonia. Continue with albuterol And Atrovent. (4) COVID-19: Code(s): U07.1 - COVID-19 Status: Acute Assessment and Plan: It was documented that the patient was found to be positive puncture per of this year. She has been placed in isolation. Which is airborne droplet contact isolation. I have discussed the case with the detacker who recommended that the patient continue with IV fluids at this time at a lower rate. (5) Acute hypernatremia: Code(s): E87.0 - Hyperosmolality and hypernatremia Status: Acute Assessment and Plan: Most likely dehydrated. The patient was given 2 L of IV bolus in the emergency room and now the rate has been decreased and she has been placed on half-normal saline. We will continue to monitor her BMP every 6 hours. (6) JOSE ANGEL (acute kidney injury): Code(s): N17.9 - Acute kidney failure, unspecified Status: Acute Assessment and Plan: Patient has been hydrated will continue to monitor renal function consider renal ultrasound. Check urine electrolytes as well. (7) DM2 (diabetes mellitus, type 2): Code(s): E11.9 - Type 2 diabetes mellitus without complications Status: Chronic Assessment and Plan: Accu-Cheks AC and HS with sliding scale. Check A1c. (8) Encephalopathy acute: Code(s): G93.40 - Encephalopathy, unspecified Status: Acute Assessment and Plan: The patient has had a history of brain surgery am unsure of what her baseline is. She comes from a [facility]. 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 Review of Systems Review of Systems: ROS unobtainable: Yes unobtainable due to endotracheal tube Exam Narrative: Exam Narra
[2020-01-29 18:04] LABS: Hematocrit 41.2 % (37.0-47.0); Mean Corpuscular HGB Conc 29.1 g/dl (32-36); Mean Corpuscular Hemoglobin 25.9 pg (26-34); Mean Corpuscular Volume 88.8 fl (80-100); Mean Platelet Volume 10.6 fl (7.4-10.4); Platelet Count Result 184 k/mm3 (150-375); Red Blood Count 4.64 M/mm3 (4.2-5.4); Red Cell Distribution Width 16.5 % (11.5-14.5); White Blood Count 13.6 K/mm3 (4.5-10.0)
[2020-01-29 18:04] LABS: Anion Gap 6 mmol/L (8-16); Blood Urea Nitrogen 37 mg/dL (7-17); Calcium 7.3 mg/dL (8.4-10.2); Carbon Dioxide 24 mmol/L (22-30); Chloride 124 mmol/L (98-107); Estimated CRCL calculation 34 ml/min; Estimated Glomerular Filt Rate 49; Glucose 354 mg/dL (65-105); Potassium 3.7 mmol/L (3.4-5.0); Sodium 154 mmol/L (137-145)
[2020-01-29] MEDS: SODIUM CHLORIDE 0.9% IV 500 ML IV CONT (18:07)
[2020-01-29 18:16] LABS: Lactic Acid Reflex 1.3 mmol/L (0.7-2.1)
[2020-01-29 18:23] LABS: Alveolar/Arterial O2 Gradient 352.3 mmHg; Base Excess ABG -5.4 mEq/l (+/-2.0); Fractional Inspired Oxygen 60 %; HCO3 ABG 20.1 mEq/l (22.0-26.0); Oxygen Content ABG 10.8 %vol (16.0-22.0); Oxyhemoglobin 59.9 % THb (90.0-100.0); PCO2 ABG 39.2 mmHg (35.0-45.0); PO2 FiO2 Ratio Arterial Blood 0.54 %; Total Hemoglobin 12.9 g/dL (12.0-18.0); pH ABG 7.328 (7.350-7.450)
[2020-01-29 18:25] LABS: PO2 ABG 32.4 mmHg (80.0-100.0)
[2020-01-29 18:26] LABS: Device VENTILATOR; Modified Allen's Test Pass; Oxygen Saturation ABG 58.1 % (95.0-100.0); Site Drawn LEFT RADIAL
[2020-01-29 18:27] LABS: Arterial Blood Gas PEEP 5 cmH2O; Arterial Blood Gas Tidal Volume 370 ml; Arterial Blood Gas Vent Mode CMV; Arterial Blood Gas Ventilator rate 16 /MIN
[2020-01-29] MEDS: SODIUM CHLORIDE 0.9% IV 1,000 ML 50 ML IV CONT (19:04)
[2020-01-29 22:58] LABS: Glucose Point of Care 283 (65-105)
[2020-01-30] VITALS (21 sets, daily range): BP systolic 92–115; BP diastolic 57–67; PULSE 50–68; RESP 16–22; TEMP 36.1–37.4; O2SAT 91–97
[2020-01-30 00:48] LABS: Anion Gap 5 mmol/L (8-16); Blood Urea Nitrogen 36 mg/dL (7-17); Calcium 7.2 mg/dL (8.4-10.2); Carbon Dioxide 25 mmol/L (22-30); Chloride 124 mmol/L (98-107); Estimated CRCL calculation 38 ml/min; Estimated Glomerular Filt Rate 54; Glucose 341 mg/dL (65-105); Potassium 3.8 mmol/L (3.4-5.0); Sodium 154 mmol/L (137-145)
[2020-01-30 01:04] LABS: Glucose Point of Care 300 (65-105)
[2020-01-30] MEDS: INSULIN ASPART (*BKC) 100 UNITS/ML SUB-Q ×3 (01:05→20:39)
[2020-01-30 04:41] LABS: Alveolar/Arterial O2 Gradient 322.5 mmHg; Base Excess ABG -5.1 mEq/l (+/-2.0); Carboxyhemoglobin 0.3 % THb (0-2.0); Device VENTILATOR; Fractional Inspired Oxygen 60 %; HCO3 ABG 19.3 mEq/l (22.0-26.0); Methemoglobin ABG 0.4 %THb (0-1.5); Modified Allen's Test Pass; Oxygen Content ABG 15.8 %vol (16.0-22.0); Oxygen Saturation ABG 93.4 % (95.0-100.0); Oxyhemoglobin 92.2 % THb (90.0-100.0); PCO2 ABG 33.8 mmHg (35.0-45.0); PO2 ABG 68.1 mmHg (80.0-100.0); PO2 FiO2 Ratio Arterial Blood 1.13 %; Reduced Hemoglobin 7.1 %THb (0-5.0); Site Drawn LEFT RADIAL; Total Hemoglobin 12.2 g/dL (12.0-18.0); pH ABG 7.374 (7.350-7.450)
[2020-01-30 04:42] LABS: Arterial Blood Gas PEEP 5 cmH2O; Arterial Blood Gas Tidal Volume 370 ml; Arterial Blood Gas Vent Mode CMV; Arterial Blood Gas Ventilator rate 16 /MIN
[2020-01-30] MEDS: SODIUM CHLORIDE 0.9% IV 1,000 ML 50 ML IV CONT (05:05)
[2020-01-30 05:21] LABS: Hematocrit 38.2 % (37.0-47.0); Hemoglobin 11.2 g/dL (12.0-15.0); Mean Corpuscular HGB Conc 29.3 g/dl (32-36); Mean Corpuscular Volume 88.6 fl (80-100); Mean Platelet Volume 10.1 fl (7.4-10.4); Platelet Count Result 155 k/mm3 (150-375); Red Blood Count 4.31 M/mm3 (4.2-5.4); Red Cell Distribution Width 16.2 % (11.5-14.5); White Blood Count 12.4 K/mm3 (4.5-10.0)
[2020-01-30 05:35] LABS: Glucose Point of Care 182 (65-105)
[2020-01-30 05:53] LABS: Alanine Aminotransferase 84 U/L (4-35); Albumin Level 2.8 g/dL (3.5-5.1); Alkaline Phosphatase 96 U/L (38-126); Anion Gap 6 mmol/L (8-16); Aspartate Amino Transferase 84 U/L (14-36); Bilirubin,Total 0.6 mg/dL (0.2-1.3); Blood Urea Nitrogen 36 mg/dL (7-17); Calcium 7.3 mg/dL (8.4-10.2); Carbon Dioxide 24 mmol/L (22-30); Chloride 126 mmol/L (98-107); Estimated CRCL calculation 42 ml/min; Estimated Glomerular Filt Rate > 60; Glucose 197 mg/dL (65-105); Magnesium 2.3 mg/dL (1.6-2.3); Potassium 3.6 mmol/L (3.4-5.0); Sodium 156 mmol/L (137-145)
[2020-01-30] MEDS: CENTRAL LINE FLUSH 10 ML IV PUSH ×3 (06:16→22:34)
--- NOTE | 2020-01-30 07:45 | WPDINTPN ---
Progress Note: A&P Assessment and Plan (1) Acute respiratory failure: Code(s): J96.00 - Acute respiratory failure, unspecified whether with hypoxia or hypercapnia Status: Acute Assessment and Plan: Acute Respiratory failure secondary to healthcare associated pneumonia versus COVID-19, ? questionable baseline COPD Continue full mechanical ventilation support to prevent hypoxemia/hypercarbia and end organ damage. ABG and PCXR reviewed and will repeat in am. Broad-spectrum antibiotics vancomycin cefepime Bronchodilators (2) Sepsis: Code(s): A41.9 - Sepsis, unspecified organism Status: Acute Assessment and Plan: Sepsis secondary to healthcare associated pneumonia and UTI Blood, urine and sputum culture sent urine cultures growing Klebsiella which is sensitive to cefepime Empiric vancomycin cefepime lactic acid level has normalized now (3) Shock: Code(s): R57.9 - Shock, unspecified Status: Acute Assessment and Plan: septic versus secondary to sedation as lactate is normal and patient had received good amount of IV fluids hold further IV fluids continue Levophed (4) Pneumonia: Code(s): J18.9 - Pneumonia, unspecified organism Status: Acute Assessment and Plan: see above (5) COVID-19: Code(s): U07.1 - COVID-19 Status: Acute Assessment and Plan: SARS-CoV-2 PCR was positive at [facility]. date of testing is not available yet. will try to obtain records from [facility] Patient is in Airborne, Droplet and Contact Isolation dexamethasone 01/28 Started remdesivir 01/29 once her renal function improved 1 unit of Convalscent plasma on 01/29 will further IVF Continue antibiotics for empiric bacterial coverage Monitor inflammatory marker (6) Acute hypernatremia: Code(s): E87.0 - Hyperosmolality and hypernatremia Status: Acute Assessment and Plan: Hypernatremia and hyperchloremia suggestive of intravascular volume depletion improving Patient currently off of IV fluids but getting free water through NG tube Monitor sodium level (7) Elevated transaminase level: Code(s): R74.01 - Elevation of levels of liver transaminase levels Status: Acute Assessment and Plan: improving. continue to monitor (8) JOSE ANGEL (acute kidney injury): Code(s): N17.9 - Acute kidney failure, unspecified Status: Acute Assessment and Plan: improved JOSE ANGEL likely prerenal from sepsis and hypovolemia US - Sonographically unremarkable kidneys. Monitor creatinine electrolytes and urine output (9) Encephalopathy acute: Code(s): G93.40 - Encephalopathy, unspecified Status: Acute Assessment and Plan: likely toxic metabolic encephalopathy unchanged head CT from past (10) DM2 (diabetes mellitus, type 2): Code(s): E11.9 - Type 2 diabetes mellitus without complications Status: Chronic Assessment and Plan: uncontrolled likely worsened by dexamethasone continue sliding scale and Lantus Additional Plan DVT prophylaxis - Lovenox Stress ulcer prophylaxis - Pepcid Nutrition - start tube feeds today Code Status - Full Code as per patient's niece who is her POA. Total Critical Care Time - 32 minutes Due to a high probability of clinically significant, life threatening deterioration, the patient required my highest level of preparedness to intervene emergently and I personally spent this critical care time directly and personally managing the patient. This critical care time included obtaining a history; examining the patient; pulse oximetry; ordering and review of studies; arranging urgent treatment with development of a management plan; evaluation of patient's response to treatment; frequent reassessment; and discussions with other providers. It was exclusive of separately billable procedures and treating other patients and teaching time. Please see Assessment an
[2020-01-30] MEDS: ENOXAPARIN 40 MG/0.4 ML SYRINGE SUB-Q (09:50)
[2020-01-30] MEDS: DEXAMETHASONE SOD PHOS INJ 4 MG/ML VIAL 6 MG IV PUSH (09:50)
[2020-01-30] MEDS: POTASSIUM CHLORIDE 20 MEQ PACKET (FOR LIQUID) 40 MEQ FEED TUBE (09:50)
[2020-01-30] MEDS: FAMOTIDINE 20 MG TABLET PO ×2 (09:51→20:03)
[2020-01-30] MEDS: TOLNAFTATE 1% POWDER 45 GM BTL 1 APPLIC TOPICAL ×2 (09:54→20:22)
[2020-01-30 10:43] LABS: Glucose Point of Care 94 (65-105)
[2020-01-30] MEDS: REMDESIVIR 100 MG/NS 250 ML 100 MG/250 ML BAG 250 MG IVPB (10:50)
[2020-01-30 13:03] LABS: Anion Gap 7 mmol/L (8-16); Blood Urea Nitrogen 32 mg/dL (7-17); Calcium 7.2 mg/dL (8.4-10.2); Carbon Dioxide 23 mmol/L (22-30); Chloride 126 mmol/L (98-107); Estimated CRCL calculation 42 ml/min; Estimated Glomerular Filt Rate > 60; Glucose 141 mg/dL (65-105); Potassium 4.6 mmol/L (3.4-5.0); Sodium 156 mmol/L (137-145)
[2020-01-30 13:12] LABS: NT Pro B Type Natriuretic Pept 596 PG/ML (5-100)
[2020-01-30 13:18] LABS: Glucose Point of Care 137 (65-105)
--- NOTE | 2020-01-30 16:26 | PM.IMPN ---
Progress Note: A&P Assessment and Plan (1) Acute respiratory failure: Code(s): J96.00 - Acute respiratory failure, unspecified whether with hypoxia or hypercapnia Status: Acute Assessment and Plan: Healthcare associated pneumonia versus covid 19. Patient was placed in ICU . she is intubated placed on a ventilator. She is listed as a full code. Ventilator settings per school childcare attendant. Patient is on vancomycin cefepime and azithromycin for the possibility healthcare associated pneumonia. She is also placed on Decadron due to the COVID-19. No antiviral at this time. Due to the acute renal failure and elevated liver enzymes. 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 department with respiratory distress and emergency department patient was intubated as patient was quite hypoxic, and transferred to ICU, suspect patient may have healthcare associated pneumonia as patient was recently discharged from the hospital as well as patient is positive COVID-19, has sepsis most likely secondary to healthcare associated pneumonia patient is being treated with Broad-spectrum antibiotics vancomycin cefepime, urine culture is growing Klebsiella pneumonia sensitive to cefepime, patient was started on tube feeding, patient is off pressors, prognosis is better to wean the patient off ventilator, appreciate school childcare attendant (2) Sepsis: Code(s): A41.9 - Sepsis, unspecified organism Status: Acute Assessment and Plan: Blood cultures are pending. Urine and sputum are also pending patient was given an IV bolus 30 milliliters/kilogram in the emergency room. Patient was started on vancomycin cefepime and azithromycin for possibility of healthcare associated pneumonia. (3) Pneumonia: Code(s): J18.9 - Pneumonia, unspecified organism Status: Acute Assessment and Plan: Sputum cultures when able. Blood cultures are pending. Patient is on broad-spectrum antibiotics per protocol for healthcare associated pneumonia. Continue with albuterol And Atrovent. (4) COVID-19: Code(s): U07.1 - COVID-19 Status: Acute Assessment and Plan: It was documented that the patient was found to be positive puncture per of this year. She has been placed in isolation. Which is airborne droplet contact isolation. I have discussed the case with the school childcare attendant who recommended that the patient continue with IV fluids at this time at a lower rate. (5) Acute hypernatremia: Code(s): E87.0 - Hyperosmolality and hypernatremia Status: Acute Assessment and Plan: Most likely dehydrated. The patient was given 2 L of IV bolus in the emergency room and now the rate has been decreased and she has been placed on half-normal saline. We will continue to monitor her BMP every 6 hours. (6) JOSE ANGEL (acute kidney injury): Code(s): N17.9 - Acute kidney failure, unspecified Status: Acute Assessment and Plan: Patient has been hydrated will continue to monitor renal function consider renal ultrasound. Check urine electrolytes as well. (7) DM2 (diabetes mellitus, type 2): Code(s): E11.9 - Type 2 diabetes mellitus without complications Status: Chronic Assessment and Plan: Accu-Cheks AC and HS with sliding scale. Check A1c. (8) Encephalopathy acute: Code(s): G93.40 - Encephalopathy, unspecified Status: Acute Assessment and Plan: The patient has had a history of brain surgery am unsure of what her baseline is. She comes from a [facility]. 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
[2020-01-30 16:50] LABS: Glucose Point of Care 230 (65-105)
[2020-01-30 20:34] LABS: Glucose Point of Care 308 (65-105)
[2020-01-30] MEDS: INSULIN GLARGINE (*BKC) 100 UNITS/ML 30 UNITS SUB-Q (20:37)
[2020-01-31] VITALS (35 sets, daily range): BP systolic 78–125; BP diastolic 53–82; PULSE 51–110; RESP 16–37; TEMP 37.2–37.7; O2SAT 86–96; BMI 25.8
[2020-01-31] MEDS: INSULIN ASPART (*BKC) 100 UNITS/ML SUB-Q ×5 (00:51→20:27)
[2020-01-31 01:13] LABS: Glucose Point of Care 336 (65-105)
[2020-01-31 05:07] LABS: Alveolar/Arterial O2 Gradient 221.3 mmHg; Base Excess ABG -5.6 mEq/l (+/-2.0); Device VENTILATOR; Fractional Inspired Oxygen 45 %; HCO3 ABG 18.2 mEq/l (22.0-26.0); Methemoglobin ABG 0.4 %THb (0-1.5); Modified Allen's Test Pass; Oxygen Content ABG 17.9 %vol (16.0-22.0); Oxygen Saturation ABG 92.8 % (95.0-100.0); Oxyhemoglobin 91.4 % THb (90.0-100.0); PCO2 ABG 30.7 mmHg (35.0-45.0); PO2 ABG 64.6 mmHg (80.0-100.0); PO2 FiO2 Ratio Arterial Blood 1.44 %; Reduced Hemoglobin 8.2 %THb (0-5.0); Site Drawn LEFT RADIAL; Total Hemoglobin 13.9 g/dL (12.0-18.0)
[2020-01-31 05:08] LABS: Arterial Blood Gas PEEP 5 cmH2O; Arterial Blood Gas Tidal Volume 370 ml; Arterial Blood Gas Vent Mode CMV; Arterial Blood Gas Ventilator rate 16 /MIN
[2020-01-31 05:13] LABS: Hematocrit 39.8 % (37.0-47.0); Hemoglobin 11.6 g/dL (12.0-15.0); Mean Corpuscular HGB Conc 29.1 g/dl (32-36); Mean Corpuscular Hemoglobin 25.5 pg (26-34); Mean Corpuscular Volume 87.5 fl (80-100); Mean Platelet Volume 10.8 fl (7.4-10.4); Platelet Count Result 164 k/mm3 (150-375); Red Blood Count 4.55 M/mm3 (4.2-5.4); Red Cell Distribution Width 16.5 % (11.5-14.5); White Blood Count 11.5 K/mm3 (4.5-10.0)
[2020-01-31 05:15] LABS: Glucose Point of Care 321 (65-105)
[2020-01-31 05:18] LABS: Alanine Aminotransferase 81 U/L (4-35); Albumin Level 2.8 g/dL (3.5-5.1); Alkaline Phosphatase 117 U/L (38-126); Anion Gap 9 mmol/L (8-16); Aspartate Amino Transferase 91 U/L (14-36); Bilirubin,Total 0.5 mg/dL (0.2-1.3); Blood Urea Nitrogen 36 mg/dL (7-17); Calcium 7.9 mg/dL (8.4-10.2); Carbon Dioxide 21 mmol/L (22-30); Chloride 121 mmol/L (98-107); Estimated CRCL calculation 42 ml/min; Estimated Glomerular Filt Rate > 60; Glucose 362 mg/dL (65-105); Magnesium 2.6 mg/dL (1.6-2.3); Potassium 4.1 mmol/L (3.4-5.0); Sodium 151 mmol/L (137-145)
[2020-01-31] MEDS: CENTRAL LINE FLUSH 10 ML IV PUSH ×3 (05:29→21:22)
[2020-01-31] MEDS: DEXAMETHASONE SOD PHOS INJ 4 MG/ML VIAL 6 MG IV PUSH (09:13)
[2020-01-31] MEDS: ENOXAPARIN 40 MG/0.4 ML SYRINGE SUB-Q (09:13)
[2020-01-31] MEDS: FAMOTIDINE 20 MG TABLET PO ×2 (09:14→20:30)
[2020-01-31] MEDS: TOLNAFTATE 1% POWDER 45 GM BTL 1 APPLIC TOPICAL ×2 (09:14→20:30)
[2020-01-31 09:44] LABS: Glucose Point of Care 333 (65-105)
[2020-01-31] MEDS: INSULIN DETEMIR 100 UNITS/ML 6 UNITS SUB-Q (09:54)
[2020-01-31] MEDS: REMDESIVIR 100 MG/NS 250 ML 100 MG/250 ML BAG 250 MG IVPB (09:55)
[2020-01-31] MEDS: FENTANYL 2,500MCG/NS250ML(*CRX 2,500 MCG/250 ML BAG IV CONT ×2 (10:00→22:38)
--- NOTE | 2020-01-31 11:45 | PC.NURSE ---
Updated MAC Dumont, via telephone.
[2020-01-31] MEDS: FUROSEMIDE INJ 40 MG/4 ML VIAL 20 MG IV PUSH (12:24)
[2020-01-31 12:32] LABS: Glucose Point of Care 395 (65-105)
--- NOTE | 2020-01-31 16:08 | WPDINTPN ---
Progress Note: A&P Assessment and Plan (1) Acute respiratory failure: Code(s): J96.00 - Acute respiratory failure, unspecified whether with hypoxia or hypercapnia Status: Acute Assessment and Plan: Acute Respiratory failure secondary to healthcare associated pneumonia versus COVID-19, ? questionable baseline COPD Continue full mechanical ventilation support to prevent hypoxemia/hypercarbia and end organ damage. ABG and PCXR reviewed, ventilator adjusted Broad-spectrum antibiotics vancomycin, cefepime Bronchodilators (2) Pneumonia: Code(s): J18.9 - Pneumonia, unspecified organism Status: Acute Assessment and Plan: as above (3) Sepsis: Code(s): A41.9 - Sepsis, unspecified organism Status: Acute Assessment and Plan: Sepsis secondary to healthcare associated pneumonia and UTI Blood, urine and sputum culture sent urine cultures growing Klebsiella which is sensitive to cefepime Empiric vancomycin cefepime lactic acid level has normalized now (4) Shock: Code(s): R57.9 - Shock, unspecified Status: Acute Assessment and Plan: septic versus secondary to sedation as lactate is normal and patient had received good amount of IV fluids hold further IV fluids continue Levophed, wean to maintain map > 65 mmHg (5) COVID-19: Code(s): U07.1 - COVID-19 Status: Acute Assessment and Plan: SARS-CoV-2 PCR was positive at [facility]. date of testing is not available yet. will try to obtain records from [facility] term Patient is in Airborne, Droplet and Contact Isolation dexamethasone 01/28 Started remdesivir 01/29 once her renal function improved 1 unit of Convalscent plasma on 01/29 Continue antibiotics for empiric bacterial coverage Monitor inflammatory marker (6) Acute hypernatremia: Code(s): E87.0 - Hyperosmolality and hypernatremia Status: Acute Assessment and Plan: Hypernatremia and hyperchloremia suggestive of intravascular volume depletion sodium levels improving continue free water flushes monitor sodium levels (7) Elevated transaminase level: Code(s): R74.01 - Elevation of levels of liver transaminase levels Status: Acute Assessment and Plan: improving. continue to monitor (8) JOSE ANGEL (acute kidney injury): Code(s): N17.9 - Acute kidney failure, unspecified Status: Acute Assessment and Plan: RESOLVED JOSE ANGEL likely prerenal from sepsis and hypovolemia US - Sonographically unremarkable kidneys. Monitor creatinine electrolytes and urine output (9) Encephalopathy acute: Code(s): G93.40 - Encephalopathy, unspecified Status: Acute Assessment and Plan: likely toxic metabolic encephalopathy unchanged head CT from past (10) DM2 (diabetes mellitus, type 2): Code(s): E11.9 - Type 2 diabetes mellitus without complications Status: Chronic Assessment and Plan: uncontrolled likely worsened by dexamethasone continue sliding scale and Lantus Additional Plan DVT prophylaxis - Lovenox Stress ulcer prophylaxis - Pepcid Nutrition - start tube feeds today Code Status - Full Code as per patient's niece who is her POA. Total Critical Care Time - 35 minutes Due to a high probability of clinically significant, life threatening deterioration, the patient required my highest level of preparedness to intervene emergently and I personally spent this critical care time directly and personally managing the patient. This critical care time included obtaining a history; examining the patient; pulse oximetry; ordering and review of studies; arranging urgent treatment with development of a management plan; evaluation of patient's response to treatment; frequent reassessment; and discussions with other providers. It was exclusive of separately billable procedures and treating other patients and teaching time. Please see Assessment and Plan section an
--- NOTE | 2020-01-31 16:19 | PM.IMPN ---
Progress Note: A&P Assessment and Plan (1) Acute respiratory failure: Code(s): J96.00 - Acute respiratory failure, unspecified whether with hypoxia or hypercapnia Status: Acute Assessment and Plan: Healthcare associated pneumonia versus covid 19. Patient was placed in ICU . she is intubated placed on a ventilator. She is listed as a full code. Ventilator settings per egg producer. Patient is on vancomycin cefepime and azithromycin for the possibility healthcare associated pneumonia. She is also placed on Decadron due to the COVID-19. No antiviral at this time. Due to the acute renal failure and elevated liver enzymes. 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 department with respiratory distress and emergency department patient was intubated as patient was quite hypoxic, and transferred to ICU, suspect patient may have healthcare associated pneumonia as patient was recently discharged from the hospital as well as patient is positive COVID-19, has sepsis most likely secondary to healthcare associated pneumonia patient is being treated with Broad-spectrum antibiotics vancomycin cefepime, urine culture is growing Klebsiella pneumonia sensitive to cefepime, patient was started on tube feeding, patient still on pressors, discussed with egg producer today prognosis appears to be poor family may withdraw to care there is no improvement and a day or 2. (2) Sepsis: Code(s): A41.9 - Sepsis, unspecified organism Status: Acute Assessment and Plan: Blood cultures are pending. Urine and sputum are also pending patient was given an IV bolus 30 milliliters/kilogram in the emergency room. Patient was started on vancomycin cefepime and azithromycin for possibility of healthcare associated pneumonia. (3) Pneumonia: Code(s): J18.9 - Pneumonia, unspecified organism Status: Acute Assessment and Plan: Sputum cultures when able. Blood cultures are pending. Patient is on broad-spectrum antibiotics per protocol for healthcare associated pneumonia. Continue with albuterol And Atrovent. (4) COVID-19: Code(s): U07.1 - COVID-19 Status: Acute Assessment and Plan: It was documented that the patient was found to be positive puncture per of this year. She has been placed in isolation. Which is airborne droplet contact isolation. I have discussed the case with the egg producer who recommended that the patient continue with IV fluids at this time at a lower rate. (5) Acute hypernatremia: Code(s): E87.0 - Hyperosmolality and hypernatremia Status: Acute Assessment and Plan: Most likely dehydrated. The patient was given 2 L of IV bolus in the emergency room and now the rate has been decreased and she has been placed on half-normal saline. We will continue to monitor her BMP every 6 hours. (6) JOSE ANGEL (acute kidney injury): Code(s): N17.9 - Acute kidney failure, unspecified Status: Acute Assessment and Plan: Patient has been hydrated will continue to monitor renal function consider renal ultrasound. Check urine electrolytes as well. (7) DM2 (diabetes mellitus, type 2): Code(s): E11.9 - Type 2 diabetes mellitus without complications Status: Chronic Assessment and Plan: Accu-Cheks AC and HS with sliding scale. Check A1c. (8) Encephalopathy acute: Code(s): G93.40 - Encephalopathy, unspecified Status: Acute Assessment and Plan: The patient has had a history of brain surgery am unsure of what her baseline is. She comes from a care home. 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
[2020-01-31] MEDS: NOREPINEPHRINE 8 MG/D5W 250 ML 8 MG/250 ML BAG 3.75 MG IV CONT (17:54)
[2020-01-31 18:10] LABS: Glucose Point of Care 472 (65-105)
[2020-01-31] MEDS: INSULIN HUMAN REGULAR (*BKC) 100 UNITS/ML 10 UNITS SUB-Q (18:26)
[2020-01-31] MEDS: IPRATROPIUM BR 0.02% INH SOLN 0.5 MG/2.5 ML VIAL INHALATION (19:48)
[2020-01-31] MEDS: ALBUTEROL SULFATE NEB 2.5 MG/0.5 ML INH INHALATION (19:48)
[2020-01-31] MEDS: INSULIN GLARGINE (*BKC) 100 UNITS/ML 30 UNITS SUB-Q (20:25)
[2020-01-31 20:48] LABS: Glucose Point of Care 483 (65-105)
[2020-01-31 20:48] LABS: Glucose Point of Care 496 (65-105)
[2020-02-01] VITALS (22 sets, daily range): BP systolic 83–146; BP diastolic 52–73; PULSE 45–76; RESP 16–26; TEMP 36.3–37.4; O2SAT 91–97
[2020-02-01] MEDS: INSULIN ASPART (*BKC) 100 UNITS/ML SUB-Q ×5 (00:51→21:11)
[2020-02-01 00:55] LABS: Glucose Point of Care > 500 (65-105)
[2020-02-01 04:29] LABS: Alveolar/Arterial O2 Gradient 300.5 mmHg; Carboxyhemoglobin 0.3 % THb (0-2.0); Device VENTILATOR; Fractional Inspired Oxygen 55 %; HCO3 ABG 17.9 mEq/l (22.0-26.0); Methemoglobin ABG 0.3 %THb (0-1.5); Modified Allen's Test Unable to perform; Oxygen Content ABG 17.2 %vol (16.0-22.0); Oxygen Saturation ABG 92.2 % (95.0-100.0); Oxyhemoglobin 89.8 % THb (90.0-100.0); PCO2 ABG 27.9 mmHg (35.0-45.0); PO2 ABG 60.6 mmHg (80.0-100.0); Reduced Hemoglobin 9.6 %THb (0-5.0); Site Drawn LEFT RADIAL; Total Hemoglobin 13.6 g/dL (12.0-18.0); pH ABG 7.425 (7.350-7.450)
[2020-02-01 04:30] LABS: Arterial Blood Gas PEEP 5 cmH2O; Arterial Blood Gas Tidal Volume 370 ml; Arterial Blood Gas Vent Mode CMV; Arterial Blood Gas Ventilator rate 16 /MIN
[2020-02-01 04:46] LABS: Glucose Point of Care 439 (65-105)
[2020-02-01 04:55] LABS: Hematocrit 40.8 % (37.0-47.0); Hemoglobin 12.5 g/dL (12.0-15.0); Mean Corpuscular HGB Conc 30.6 g/dl (32-36); Mean Corpuscular Hemoglobin 25.4 pg (26-34); Mean Corpuscular Volume 82.9 fl (80-100); Mean Platelet Volume 10.8 fl (7.4-10.4); Platelet Count Result 170 k/mm3 (150-375); Red Blood Count 4.92 M/mm3 (4.2-5.4); Red Cell Distribution Width 16.1 % (11.5-14.5); White Blood Count 10.1 K/mm3 (4.5-10.0)
[2020-02-01] MEDS: CENTRAL LINE FLUSH 10 ML IV PUSH ×3 (05:06→21:12)
[2020-02-01 05:15] LABS: D Dimer 0.92 ug/mL (<0.48)
[2020-02-01] MEDS: INSULIN ASPART (*BKC) 100 UNITS/ML 11 UNITS SUB-Q (05:16)
[2020-02-01 05:19] LABS: CRP 2.9 mg/dL (<1.0); Lactate Dehydrogenase 1213 U/L (313-618); Phosphorus 3.6 mg/dL (2.5-4.5)
[2020-02-01 05:46] LABS: Alanine Aminotransferase 76 U/L (4-35); Albumin Level 3.1 g/dL (3.5-5.1); Alkaline Phosphatase 143 U/L (38-126); Anion Gap 11 mmol/L (8-16); Aspartate Amino Transferase 63 U/L (14-36); Bilirubin,Total 0.5 mg/dL (0.2-1.3); Blood Urea Nitrogen 53 mg/dL (7-17); Calcium 8.3 mg/dL (8.4-10.2); Carbon Dioxide 23 mmol/L (22-30); Chloride 110 mmol/L (98-107); Estimated CRCL calculation 27 ml/min; Estimated Glomerular Filt Rate 37; Glucose 448 mg/dL (65-105); Magnesium 2.8 mg/dL (1.6-2.3); Potassium 3.6 mmol/L (3.4-5.0); Sodium 144 mmol/L (137-145)
--- NOTE | 2020-02-01 08:15 | PC.NURSE ---
Emesis noted to oral area. Tube feed stopped, O2- 94%. Airway suctioned.
[2020-02-01 09:44] LABS: Glucose Point of Care 293 (65-105)
[2020-02-01] MEDS: INSULIN DETEMIR 100 UNITS/ML 40 UNITS SUB-Q ×2 (10:53→21:11)
[2020-02-01] MEDS: REMDESIVIR 100 MG/NS 250 ML 100 MG/250 ML BAG 250 MG IVPB (10:53)
[2020-02-01] MEDS: FAMOTIDINE 20 MG TABLET PO ×2 (11:00→21:13)
[2020-02-01] MEDS: ENOXAPARIN 40 MG/0.4 ML SYRINGE SUB-Q (11:00)
[2020-02-01] MEDS: DEXAMETHASONE SOD PHOS INJ 4 MG/ML VIAL 6 MG IV PUSH (11:00)
[2020-02-01] MEDS: TOLNAFTATE 1% POWDER 45 GM BTL 1 APPLIC TOPICAL ×2 (11:01→21:12)
[2020-02-01 12:28] LABS: Glucose Point of Care 308 (65-105)
--- NOTE | 2020-02-01 13:31 | PCDIET ---
Nutrition Follow-Up Complete: Inadequate oral intake related to oral intubation as evidenced by need for tube feeding. Patient to meet estimated nutritional needs. Goal:Goal met. Continue goal. Pt current nutrition is Glucerna 1.2 @ goal of 50ml/hr. Nutrition recommendation: Agree Last recorded weight is 69.1 kg, wt up from assessed wt Bowel Motility: No BM noted, consider motility agent Labs Reviewed:WBC 10.1, Albumin 3.1, Protein 6.0, Mg 2.8, C Reactive 2.9, AST 63, Glucose 439 GFR 37 Meds Noted:Levophed, remdesivir , Vancomycin, Versed, Lantus, Lovenox, novolog, albuterol, Decadron, fentanyl Additional Notes: Pt tolerating enteral nutrition at goal of 50ml/hr over 22hrs to provide 1320 kcals, meeting 100% of nutrition needs. Residual at 12ml this am. 50ml water flush q 4 hrs. No BM noted, abdomen soft. Glucose elevated, but current nutrition appropriate for DM. We will continue to follow up every Friday/Friday and monitor daily in ICU rounds.
--- NOTE | 2020-02-01 14:36 | WPDINTPN ---
Progress Note: A&P Assessment and Plan (1) Acute respiratory failure: Code(s): J96.00 - Acute respiratory failure, unspecified whether with hypoxia or hypercapnia Status: Acute Assessment and Plan: Acute Respiratory failure secondary to healthcare associated pneumonia versus COVID-19, ? questionable baseline COPD - patient was intubated on 01/28/2020 in the ER Continue full mechanical ventilation support to prevent hypoxemia/hypercarbia and end organ damage. ABG and PCXR reviewed, ventilator adjusted Broad-spectrum antibiotics vancomycin, cefepime Bronchodilators - Fentanyl and Versed for sedation (2) Pneumonia: Code(s): J18.9 - Pneumonia, unspecified organism Status: Acute Assessment and Plan: as above (3) Sepsis: Code(s): A41.9 - Sepsis, unspecified organism Status: Acute Assessment and Plan: Sepsis secondary to healthcare associated pneumonia and UTI Blood, urine and sputum culture sent urine cultures growing Klebsiella which is sensitive to cefepime Empiric vancomycin cefepime lactic acid level has normalized now (4) Shock: Code(s): R57.9 - Shock, unspecified Status: Acute Assessment and Plan: septic versus secondary to sedation as lactate is normal and patient had received good amount of IV fluids hold further IV fluids continue Levophed, wean to maintain map > 65 mmHg (5) COVID-19: Code(s): U07.1 - COVID-19 Status: Acute Assessment and Plan: SARS-CoV-2 PCR was positive at long-term. date of testing is not available yet. will try to obtain records from long-term Patient is in Airborne, Droplet and Contact Isolation dexamethasone 01/28 Started remdesivir 01/29 once her renal function improved 1 unit of Convalscent plasma on 01/29 Continue antibiotics for empiric bacterial coverage D-dimer, CRP, LDH trending down. Ferritin is normal, continue to monitor inflammatory marker (6) Acute hypernatremia: Code(s): E87.0 - Hyperosmolality and hypernatremia Status: Acute Assessment and Plan: Hypernatremia and hyperchloremia suggestive of intravascular volume depletion sodium levels improving, 144 this morning ( 151 on 01/31/2020) - will decrease free water flushes (7) Elevated transaminase level: Code(s): R74.01 - Elevation of levels of liver transaminase levels Status: Acute Assessment and Plan: improving. continue to monitor (8) JOSE ANGEL (acute kidney injury): Code(s): N17.9 - Acute kidney failure, unspecified Status: Acute Assessment and Plan: creatinine increase to 1.4 this morning from 0.9, continue to monitor JOSE ANGEL likely prerenal from sepsis and hypovolemia US - Sonographically unremarkable kidneys. Monitor creatinine electrolytes and urine output (9) Encephalopathy acute: Code(s): G93.40 - Encephalopathy, unspecified Status: Acute Assessment and Plan: likely toxic metabolic encephalopathy unchanged head CT from past - could be related to septic shock, hypernatremia, COVID-19 pneumonia (10) DM2 (diabetes mellitus, type 2): Code(s): E11.9 - Type 2 diabetes mellitus without complications Status: Chronic Assessment and Plan: uncontrolled likely worsened by dexamethasone continue sliding scale insulin - started Levemir 40 units q.12 hours - if blood sugars remain elevated will start insulin infusion Additional Plan DVT prophylaxis - Lovenox Stress ulcer prophylaxis - Pepcid Nutrition - start tube feeds today Code Status - Full Code as per patient's niece who is her POA. discussed with niece and other family members on conference call and updated them with patient's condition and plan of care. Total Critical Care Time - 33 minutes Due to a high probability of clinically significant, life threatening deterioration, the patient required my highest level of preparedness to intervene emergentl
[2020-02-01 17:42] LABS: Glucose Point of Care 392 (65-105)
[2020-02-01 21:33] LABS: Glucose Point of Care 404 (65-105)
[2020-02-01 22:28] LABS: Vancomycin Trough 13.3 ug/mL (10.0-20.0)
[2020-02-02] VITALS (34 sets, daily range): BP systolic 86–114; BP diastolic 41–68; PULSE 43–81; RESP 16–22; TEMP 36.3–36.6; O2SAT 92–100
[2020-02-02] MEDS: INSULIN ASPART (*BKC) 100 UNITS/ML SUB-Q (00:12)
[2020-02-02 00:27] LABS: Glucose Point of Care 471 (65-105)
[2020-02-02 01:13] LABS: Anion Gap 7 mmol/L (8-16); Blood Urea Nitrogen 55 mg/dL (7-17); Calcium 8.8 mg/dL (8.4-10.2); Carbon Dioxide 27 mmol/L (22-30); Chloride 109 mmol/L (98-107); Estimated CRCL calculation 32 ml/min; Estimated Glomerular Filt Rate 44; Glucose 479 mg/dL (65-105); Potassium 4.2 mmol/L (3.4-5.0); Sodium 143 mmol/L (137-145)
[2020-02-02 01:16] LABS: Beta-Hydroxybutyrate/Acetoacetate 0.15 mmol/L (0.02-0.27)
[2020-02-02] MEDS: INSULIN HUMAN REGULAR (*BKC) 100 UNITS in SODIUM CHLORIDE 0.9% IV 99 ML 8.2 UNITS IV CONT (01:35)
[2020-02-02 02:41] LABS: Glucose Point of Care 402 (65-105)
[2020-02-02 03:49] LABS: Glucose Point of Care 332 (65-105)
[2020-02-02 05:42] LABS: Alveolar/Arterial O2 Gradient 255.4 mmHg; Base Excess ABG -2.2 mEq/l (+/-2.0); Carboxyhemoglobin 0.1 % THb (0-2.0); Fractional Inspired Oxygen 50 %; HCO3 ABG 20.7 mEq/l (22.0-26.0); Methemoglobin ABG 0.2 %THb (0-1.5); Oxygen Content ABG 16.8 %vol (16.0-22.0); Oxygen Saturation ABG 94.5 % (95.0-100.0); PCO2 ABG 30.2 mmHg (35.0-45.0); PO2 ABG 67.1 mmHg (80.0-100.0); PO2 FiO2 Ratio Arterial Blood 1.34 %; Reduced Hemoglobin 6.7 %THb (0-5.0); Total Hemoglobin 12.8 g/dL (12.0-18.0); pH ABG 7.454 (7.350-7.450)
[2020-02-02 05:43] LABS: Arterial Blood Gas Vent Mode CMV; Arterial Blood Gas Ventilator rate 16 /MIN; Device VENTILATOR; Modified Allen's Test Unable to perform; Site Drawn LEFT RADIAL
[2020-02-02 05:44] LABS: Arterial Blood Gas PEEP 5 cmH2O; Arterial Blood Gas Tidal Volume 370 ml
[2020-02-02 05:45] LABS: Hematocrit 38.7 % (37.0-47.0); Mean Corpuscular Hemoglobin 25.6 pg (26-34); Mean Corpuscular Volume 82.7 fl (80-100); Mean Platelet Volume 10.9 fl (7.4-10.4); Platelet Count Result 192 k/mm3 (150-375); Red Blood Count 4.68 M/mm3 (4.2-5.4); Red Cell Distribution Width 16.3 % (11.5-14.5); White Blood Count 11.4 K/mm3 (4.5-10.0)
[2020-02-02] MEDS: CENTRAL LINE FLUSH 10 ML IV PUSH ×2 (05:53→21:10)
[2020-02-02 05:57] LABS: Alanine Aminotransferase 58 U/L (4-35); Albumin Level 2.8 g/dL (3.5-5.1); Alkaline Phosphatase 122 U/L (38-126); Anion Gap 6 mmol/L (8-16); Aspartate Amino Transferase 41 U/L (14-36); Bilirubin,Total 0.5 mg/dL (0.2-1.3); Blood Urea Nitrogen 50 mg/dL (7-17); Calcium 8.9 mg/dL (8.4-10.2); Carbon Dioxide 27 mmol/L (22-30); Chloride 112 mmol/L (98-107); Estimated CRCL calculation 43 ml/min; Estimated Glomerular Filt Rate 54; Glucose 247 mg/dL (65-105); Magnesium 2.9 mg/dL (1.6-2.3); Phosphorus 3.2 mg/dL (2.5-4.5); Potassium 3.5 mmol/L (3.4-5.0); Sodium 145 mmol/L (137-145)
[2020-02-02 06:09] LABS: Glucose Point of Care 230 (65-105)
[2020-02-02 06:39] LABS: Glucose Point of Care 192 (65-105)
[2020-02-02 07:45] LABS: Osmolality, Urine 773 mOsm/kg (50-1200)
[2020-02-02 09:01] LABS: Glucose Point of Care 138 (65-105)
[2020-02-02] MEDS: TOLNAFTATE 1% POWDER 45 GM BTL 1 APPLIC TOPICAL ×2 (09:26→21:10)
[2020-02-02] MEDS: KCL 20 MEQ/SW 100 ML 100 ML 50 MEQ IVPB (09:26)
[2020-02-02] MEDS: FAMOTIDINE 20 MG TABLET PO ×2 (09:26→21:10)
[2020-02-02] MEDS: DEXAMETHASONE SOD PHOS INJ 4 MG/ML VIAL 6 MG IV PUSH (09:26)
[2020-02-02] MEDS: ENOXAPARIN 40 MG/0.4 ML SYRINGE SUB-Q (09:26)
[2020-02-02] MEDS: METOCLOPRAMIDE HCL INJ 10 MG/2 ML VIAL 5 MG IV PUSH ×3 (09:27→23:19)
[2020-02-02] MEDS: REMDESIVIR 100 MG/NS 250 ML 100 MG/250 ML BAG 250 MG IVPB (09:28)
[2020-02-02] MEDS: NOREPINEPHRINE 8 MG/D5W 250 ML 8 MG/250 ML BAG 3.75 MG IV CONT (11:40)
[2020-02-02 12:16] LABS: Glucose Point of Care 140 (65-105)
[2020-02-02 12:16] LABS: Glucose Point of Care 120 (65-105)
--- NOTE | 2020-02-02 12:23 | PCFNICU ---
ICU Rounding Note: Pt current nutrition is Glucerna 1.2 at 50 ml/hr. Nutrition recommendation:Agree Last recorded weight is 75.4 kg up from 687.2 kg on admit. Bowel Motility:+BM reported 01/30. Reglan started. Labs Reviewed: Mg 2.9,GFR 54,BUN 50,Alb 2.8,Glu 247 Meds Noted:Versed,Fentanyl,Levophed,Vancomycin,Levaquin. Additional Notes: Patient remains on mechanical ventilator. Tube feedings have been on hold due to elevated residuals. Plans to restart tube feedings today. Following daily in ICU rounds. Assessing/reassessing Friday and Friday.
[2020-02-02] MEDS: INSULIN HUMAN REGULAR (*BKC) 100 UNITS in SODIUM CHLORIDE 0.9% IV 99 ML IV CONT (13:06)
--- NOTE | 2020-02-02 16:07 | WPDINTPN ---
Progress Note: A&P Assessment and Plan (1) Acute respiratory failure: Code(s): J96.00 - Acute respiratory failure, unspecified whether with hypoxia or hypercapnia Status: Acute Assessment and Plan: Acute Respiratory failure secondary to healthcare associated pneumonia versus COVID-19, ? questionable baseline COPD - patient was intubated on 01/28/2020 in the ER Continue full mechanical ventilation support to prevent hypoxemia/hypercarbia and end organ damage. ABG and PCXR reviewed, ventilator adjusted. 50% FiO2, peep of 5 Broad-spectrum antibiotics vancomycin, cefepime Bronchodilators - Fentanyl and Versed for sedation, daily sedation vacation, maintain RASS of 0 to -2 (2) Pneumonia: Code(s): J18.9 - Pneumonia, unspecified organism Status: Acute Assessment and Plan: SPUTUM CULTURES GROWING STENOTROPHOMONAS MALTOPHILIA: susceptible to Levaquin, - I discontinued cefepime and started patient on Levaquin ( initiated on 02/02/2020) (3) Sepsis: Code(s): A41.9 - Sepsis, unspecified organism Status: Acute Assessment and Plan: Sepsis secondary to healthcare associated pneumonia and UTI urine cultures growing Klebsiella, discontinued cefepime and started patient on Levaquin blood cultures negative x2, vancomycin DCd lactic acid level has normalized now (4) Shock: Code(s): R57.9 - Shock, unspecified Status: Acute Assessment and Plan: septic versus secondary to sedation as lactate is normal and patient had received good amount of IV fluids hold further IV fluids continue Levophed, wean to maintain map > 65 mmHg (5) COVID-19: Code(s): U07.1 - COVID-19 Status: Acute Assessment and Plan: SARS-CoV-2 PCR was positive at longterm. date of testing is not available yet. will try to obtain records from longterm Patient is in Airborne, Droplet and Contact Isolation dexamethasone 01/28 Started remdesivir 01/29 once her renal function improved 1 unit of Convalscent plasma on 01/29 D-dimer, CRP, LDH trending down. Ferritin is normal, continue to monitor inflammatory marker (6) Acute hypernatremia: Code(s): E87.0 - Hyperosmolality and hypernatremia Status: Acute Assessment and Plan: Hypernatremia and hyperchloremia suggestive of intravascular volume depletion sodium levels improving, 145 this morning ( 151 on 01/31/2020) - will decrease free water flushes (7) Elevated transaminase level: Code(s): R74.01 - Elevation of levels of liver transaminase levels Status: Acute Assessment and Plan: improving. continue to monitor (8) JOSE ANGEL (acute kidney injury): Code(s): N17.9 - Acute kidney failure, unspecified Status: Acute Assessment and Plan: and down to 1.0 this morning JOSE ANGEL likely prerenal from sepsis and hypovolemia US - Sonographically unremarkable kidneys. Monitor creatinine electrolytes and urine output (9) Encephalopathy acute: Code(s): G93.40 - Encephalopathy, unspecified Status: Acute Assessment and Plan: persists: likely toxic metabolic encephalopathy unchanged head CT from past - could be related to septic shock, hypernatremia, COVID-19 pneumonia (10) DM2 (diabetes mellitus, type 2): Code(s): E11.9 - Type 2 diabetes mellitus without complications Status: Chronic Assessment and Plan: uncontrolled likely worsened by dexamethasone continue sliding scale insulin - started Levemir 40 units q.12 hours - if blood sugars remain elevated will start insulin infusion Additional Plan DVT prophylaxis - Lovenox Stress ulcer prophylaxis - Pepcid Nutrition - start tube feeds today Code Status - full code discussed with niece and other family members on conference call and updated them with patient's condition and plan of care. Total Critical Care Time - 33 minutes Due to a high probability of clinically significant
--- NOTE | 2020-02-02 17:01 | PM.IMPN ---
Progress Note: A&P Assessment and Plan (1) Acute respiratory failure: Code(s): J96.00 - Acute respiratory failure, unspecified whether with hypoxia or hypercapnia Status: Acute Assessment and Plan: 02/02/20 17:01 Healthcare associated pneumonia versus covid 19. Patient was placed in ICU . she is intubated placed on a ventilator. She is listed as a full code. Ventilator settings per wheelage clerk. Patient is on vancomycin cefepime and azithromycin for the possibility healthcare associated pneumonia. She is also placed on Decadron due to the COVID-19. No antiviral at this time. Due to the acute renal failure and elevated liver enzymes. 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 department with respiratory distress and emergency department patient was intubated as patient was quite hypoxic, and transferred to ICU, suspect patient may have healthcare associated pneumonia as patient was recently discharged from the hospital as well as patient is positive COVID-19, has sepsis most likely secondary to healthcare associated pneumonia patient is being treated with Broad-spectrum antibiotics vancomycin cefepime, urine culture is growing Klebsiella pneumonia sensitive to cefepime, patient was started on tube feeding, patient still on pressors, patient blood sugar were elevated patient was started on IV insulin infusion to bring the blood sugar under control though patient was not in DKA, patient was given trial weaning off the vent however patient became quite tachypneic and hypoxic, patient was sedated and vent was resumed. will continue to monitor prognosis is poor (2) Sepsis: Code(s): A41.9 - Sepsis, unspecified organism Status: Acute Assessment and Plan: Blood cultures are pending. Urine and sputum are also pending patient was given an IV bolus 30 milliliters/kilogram in the emergency room. Patient was started on vancomycin cefepime and azithromycin for possibility of healthcare associated pneumonia. (3) Pneumonia: Code(s): J18.9 - Pneumonia, unspecified organism Status: Acute Assessment and Plan: Sputum cultures when able. Blood cultures are pending. Patient is on broad-spectrum antibiotics per protocol for healthcare associated pneumonia. Continue with albuterol And Atrovent. (4) COVID-19: Code(s): U07.1 - COVID-19 Status: Acute Assessment and Plan: It was documented that the patient was found to be positive puncture per 31st of this year. She has been placed in isolation. Which is airborne droplet contact isolation. I have discussed the case with the wheelage clerk who recommended that the patient continue with IV fluids at this time at a lower rate. (5) Acute hypernatremia: Code(s): E87.0 - Hyperosmolality and hypernatremia Status: Acute Assessment and Plan: Most likely dehydrated. The patient was given 2 L of IV bolus in the emergency room and now the rate has been decreased and she has been placed on half-normal saline. We will continue to monitor her BMP every 6 hours. (6) JOSE ANGEL (acute kidney injury): Code(s): N17.9 - Acute kidney failure, unspecified Status: Acute Assessment and Plan: Patient has been hydrated will continue to monitor renal function consider renal ultrasound. Check urine electrolytes as well. (7) DM2 (diabetes mellitus, type 2): Code(s): E11.9 - Type 2 diabetes mellitus without complications Status: Chronic Assessment and Plan: Accu-Cheks AC and HS with sliding scale. Check A1c. (8) Encephalopathy acute: Code(s): G93.40 - Encephalopathy, unspecified Status: Acute Assessment and Plan: The patient has had a history of brain surgery am unsure of what her baseline is. She comes from a group home. Subjective Date/time seen: 02/02/20 17:01 Healthcare associated pneumonia versus
[2020-02-02 19:16] LABS: Glucose Point of Care 135 (65-105)
[2020-02-02 19:16] LABS: Glucose Point of Care 131 (65-105)
[2020-02-02 19:16] LABS: Glucose Point of Care 133 (65-105)
[2020-02-02 19:16] LABS: Glucose Point of Care 103 (65-105)
--- NOTE | 2020-02-02 19:50 | PC.NURSE ---
Dr. Narayan called and notified of consult.
[2020-02-02 21:21] LABS: Glucose Point of Care 97 (65-105)
[2020-02-02 22:34] LABS: Glucose Point of Care 121 (65-105)
[2020-02-02 23:54] LABS: Glucose Point of Care 102 (65-105)
[2020-02-03] VITALS (28 sets, daily range): BP systolic 85–123; BP diastolic 50–62; PULSE 6–69; RESP 17–24; TEMP 36.2–36.6; O2SAT 93–99
[2020-02-03 00:39] LABS: Glucose Point of Care 109 (65-105)
[2020-02-03 01:57] LABS: Glucose Point of Care 132 (65-105)
[2020-02-03 03:47] LABS: Glucose Point of Care 143 (65-105)
[2020-02-03 03:51] LABS: Hematocrit 39.5 % (37.0-47.0); Mean Corpuscular HGB Conc 30.4 g/dl (32-36); Mean Corpuscular Hemoglobin 25.8 pg (26-34); Mean Corpuscular Volume 84.8 fl (80-100); Mean Platelet Volume 11.1 fl (7.4-10.4); Platelet Count Result 214 k/mm3 (150-375); Red Blood Count 4.66 M/mm3 (4.2-5.4); Red Cell Distribution Width 16.7 % (11.5-14.5); White Blood Count 14.5 K/mm3 (4.5-10.0)
[2020-02-03 04:06] LABS: D Dimer 0.69 ug/mL (<0.48)
[2020-02-03 04:09] LABS: Anion Gap 3 mmol/L (8-16); Blood Urea Nitrogen 42 mg/dL (7-17); CRP 2.8 mg/dL (<1.0); Calcium 8.5 mg/dL (8.4-10.2); Carbon Dioxide 28 mmol/L (22-30); Chloride 116 mmol/L (98-107); Estimated CRCL calculation 48 ml/min; Estimated Glomerular Filt Rate > 60; Glucose 149 mg/dL (65-105); Lactate Dehydrogenase 889 U/L (313-618); Phosphorus 3.5 mg/dL (2.5-4.5); Potassium 3.7 mmol/L (3.4-5.0); Sodium 147 mmol/L (137-145)
[2020-02-03 04:37] LABS: Alveolar/Arterial O2 Gradient 213.6 mmHg; Arterial Blood Gas Vent Mode CMV; Arterial Blood Gas Ventilator rate 16 /MIN; Carboxyhemoglobin 0.3 % THb (0-2.0); Device VENTILATOR; Fractional Inspired Oxygen 45 %; HCO3 ABG 20.5 mEq/l (22.0-26.0); Methemoglobin ABG 0.3 %THb (0-1.5); Modified Allen's Test Unable to perform; Oxygen Content ABG 17.1 %vol (16.0-22.0); Oxyhemoglobin 93.9 % THb (90.0-100.0); PCO2 ABG 28.7 mmHg (35.0-45.0); PO2 ABG 74.6 mmHg (80.0-100.0); PO2 FiO2 Ratio Arterial Blood 1.66 %; Reduced Hemoglobin 5.5 %THb (0-5.0); Site Drawn LEFT RADIAL; Total Hemoglobin 12.9 g/dL (12.0-18.0); pH ABG 7.472 (7.350-7.450)
[2020-02-03 04:38] LABS: Arterial Blood Gas PEEP 5 cmH2O; Arterial Blood Gas Tidal Volume 370 ml
[2020-02-03 05:08] LABS: Glucose Point of Care 128 (65-105)
[2020-02-03] MEDS: CENTRAL LINE FLUSH 10 ML IV PUSH ×3 (06:30→20:56)
[2020-02-03] MEDS: METOCLOPRAMIDE HCL INJ 10 MG/2 ML VIAL 5 MG IV PUSH ×3 (06:30→18:19)
[2020-02-03 06:34] LABS: Glucose Point of Care 134 (65-105)
[2020-02-03] MEDS: DEXAMETHASONE SOD PHOS INJ 4 MG/ML VIAL 6 MG IV PUSH (08:54)
[2020-02-03] MEDS: FAMOTIDINE 20 MG TABLET PO ×2 (08:54→20:56)
[2020-02-03] MEDS: ENOXAPARIN 40 MG/0.4 ML SYRINGE SUB-Q (08:54)
[2020-02-03] MEDS: TOLNAFTATE 1% POWDER 45 GM BTL 1 APPLIC TOPICAL ×2 (08:55→20:56)
--- NOTE | 2020-02-03 10:00 | WPDINTPN ---
Progress Note: A&P Assessment and Plan (1) Acute respiratory failure: Code(s): J96.00 - Acute respiratory failure, unspecified whether with hypoxia or hypercapnia <Nandini Parra PA-C - Last Filed: 02/03/20 12:47> Status: Acute <Nandini JoseLEONID LeyC - Last Filed: 02/03/20 12:47> Assessment and Plan: Acute respiratory failure secondary to healthcare associated pneumonia vs COVID, questionable underlying COPD. - Intubated in the emergency department on 01/28/2020. - Continue full mechanical ventilation support to prevent hypoxia/hypercarbia and end-organ damage. - ABG and portable chest x-ray reviewed, ventilator adjusted. Changed to ASV today. - Versed weaned last night, fentanyl stopped this a.m. <Nandini Parra PA-C - Last Filed: 02/03/20 12:47> (2) Pneumonia: Code(s): J18.9 - Pneumonia, unspecified organism <Nandini Parra PA-C - Last Filed: 02/03/20 12:47> Status: Acute <LEONID CasanovaC - Last Filed: 02/03/20 12:47> Assessment and Plan: - Sputum culture growing stenotrophomonas maltophilia, susceptible to levofloxacin. - Continue Levaquin, started 02/01 (day 2). Cefepime and vancomycin discontinued 02/01. <Nandini Parra PA-C - Last Filed: 02/03/20 12:47> (3) COVID-19: Code(s): U07.1 - COVID-19 <Nandini Parra PA-C - Last Filed: 02/03/20 12:47> Status: Acute <Nandini Parra PA-C - Last Filed: 02/03/20 12:47> Assessment and Plan: - SARS-CoV-2 PCR was reportedly positive at her halfway, the date of testing not available. - Continue airborne, contact, and droplet isolation. - Dexamethasone started 01/28. - Remdesivir started 01/29 once her renal function improved. - Received 1 unit convalescent plasma on 01/29. - Inflammatory markers continue to improve. <Nandini Parra PA-C - Last Filed: 02/03/20 12:47> (4) Sepsis: Code(s): A41.9 - Sepsis, unspecified organism <Nandini Parra PA-C - Last Filed: 02/03/20 12:47> Status: Acute <Nandini Parra PA-C - Last Filed: 02/03/20 12:47> Assessment and Plan: - Secondary to healthcare associated pneumonia and urinary tract infection. - Cefepime and vancomycin discontinued, now on levofloxacin tailored to cultures. - Sputum culture growing stenotrophomonas maltophilia. - Urine culture growing Klebsiella pneumonia. - Lactic acid has normalized. <Nandini Parra PA-C - Last Filed: 02/03/20 12:47> (5) Shock: Code(s): R57.9 - Shock, unspecified <Nandini Parra PA-C - Last Filed: 02/03/20 12:47> Status: Acute <Nandini Parra PA-C - Last Filed: 02/03/20 12:47> Assessment and Plan: - Secondary to sepsis versus sedation, as her lactic acid level is within normal limits. - She has received a good amount of fluids thus will continue to hold further IV fluids. - Versed discontinued last night, fentanyl held this morning. - Continue to wean Levophed to a MAP of greater than 65 mmHg (average Levophed requirement between 1-4 mcg) - Blood cultures negative x2. <Nandini Parra PA-C - Last Filed: 02/03/20 12:47> (6) Acute hypernatremia: Code(s): E87.0 - Hyperosmolality and hypernatremia <Nandini Parra PA-C - Last Filed: 02/03/20 12:47> Status: Acute <Nandini Parra PA-C - Last Filed: 02/03/20 12:47> Assessment and Plan: - Persistent hypernatremia and hyperchloremia, both which are creeping up somewhat. - Increased free water flushes to 50 mL q.4 hours and repeat labs in a.m. <Nandini Drake
[2020-02-03 10:47] LABS: Glucose Point of Care 174 (65-105)
[2020-02-03 10:47] LABS: Glucose Point of Care 163 (65-105)
--- NOTE | 2020-02-03 12:06 | PCDIET ---
ICU Rounding Note: Pt current nutrition is Glucerna 1.2 at 50m/hr. Nutrition recommendation: agree Last recorded weight is 76.2kg up from 69kg on Friday Bowel Motility: None yet Labs Reviewed:WBC 14.5, 147 Na, 2.8 C Reactive, Glucose 149 Meds Noted:Reglan, off all sedation, decadron, lovenox Additional Notes: Trying ASV per MD, off all sedation. At goal with nutrition with 20ml residuals and 30ml water flush q 4hrs. Elevated blood sugars due to decadron. Maceration noted to buttocks per RN. Following daily in ICU rounds. Assessing/reassessing q t/f.
--- NOTE | 2020-02-03 15:17 | WPDINFPN2 ---
Progress Note: A&P Assessment and Plan (1) COVID-19: Code(s): U07.1 - COVID-19 Status: Acute Assessment and Plan: 1. Acute coronavirus infection with pneumonia, incomplete records sent from [place] [facility] + result returned on 01/21. 2. Stenotrophomonas in sputum, I suspect colonizer rather than a bacterial superinfection complicating #1, but the latter remains possible 3. Multifactorial leukocytosis REC Levofloxacin # 2 / 7 days. On dexamethasone # 7 / 10 days. [place] has been asked to send records Subjective Date/time seen: 02/03/20 15:17 Objective Data Vital Signs Vital Signs: Vital Signs - 24 hr 02/02/20 15:23 02/02/20 16:00 02/02/20 16:55 Temperature 36.4 C Pulse Rate 63 62 62 Respiratory Rate 22 H Blood Pressure 111/68 Pulse Oximetry 96 98 98 02/02/20 18:00 02/02/20 19:57 02/02/20 20:00 Temperature 36.3 C L Pulse Rate 64 60 63 Respiratory Rate 19 20 Blood Pressure 107/63 113/60 Pulse Oximetry 97 100 100 02/02/20 20:55 02/02/20 20:56 02/02/20 22:00 Temperature Pulse Rate 59 L 59 L 56 L Respiratory Rate 22 H 21 H Blood Pressure 114/50 L 106/58 L Pulse Oximetry 96 02/02/20 23:14 02/02/20 23:28 02/03/20 00:00 Temperature 36.2 C L Pulse Rate 52 L 63 69 Respiratory Rate 20 20 Blood Pressure 91/56 L Pulse Oximetry 100 98 97 02/03/20 00:32 02/03/20 02:00 02/03/20 02:37 Temperature Pulse Rate 62 54 L 53 L Respiratory Rate 20 Blood Pressure 85/52 L 95/50 L Pulse Oximetry 99 99 02/03/20 03:07 02/03/20 03:25 02/03/20 04:00 Temperature 36.2 C L Pulse Rate 53 L 62 51 L Respiratory Rate 20 20 21 H Blood Pressure 98/57 L 103/52 L Pulse Oximetry 99 98 02/03/20 04:38 02/03/20 05:51 02/03/20 06:00 Temperature Pulse Rate 62 58 L 61 Respiratory Rate 22 H Blood Pressure 97/52 L Pulse Oximetry 95 97 02/03/20 06:31 02/03/20 08:00 02/03/20 09:03 Temperature 36.4 C L Pulse Rate 61 55 L 55 L Respiratory Rate 18 18 Blood Pressure 97/52 L 106/62 Pulse Oximetry 95 02/03/20 09:05 02/03/20 09:33 02/03/20 10:00 Temperature Pulse Rate 55 L 56 L 50 L Respiratory Rate 20 Blood Pressure 116/58 L Pulse Oximetry 97 95 95 02/03/20 10:37 02/03/20 12:00 02/03/20 14:00 Temperature 36.6 C Pulse Rate 52 L 63 52 L Respiratory Rate 17 17 Blood Pressure 97/51 L 118/57 L Pulse Oximetry 95 95 94 Intake/Output Intake/Output: Intake & Output 01/31/20 02/01/20 02/02/20 02/03/20 23:59 23:59 23:59 23:59 Intake Total 3932 2404 1663.0 590 Output Total 1150 1675 1650 700 Balance 2782 729 13.0 -110 Meds/Results Medications: Active Medications Generic Name Dose Route Start Last Admin Trade Name Freq PRN Reason Stop Dose Admin Albuterol 2.5 mg 01/28/20 13:00 01/31/20 19:48 Albuterol Sulfate Neb 2.5 Mg/0.5 Ml Inh INHALATION 2.5 mg Q4HRT PRN Administration Shortness Of Breath Dexamethasone Sodium Phosphate 6 mg 01/29/20 09:00 02/03/20 08:54 Dexamethasone Sod Phos Inj 4 Mg/Ml Vial IV PUSH 02/07/20 09:01 6 mg DAILY BRYCE Administration Dextrose 12.5 gm 01/28/20 13:10 Dextrose 50% 25 Gm/50 Ml Syringe IV PUSH PRN PRN Hypoglycemia Protocol Enoxaparin Sodium 40 mg 01/30/20 09:00 02/03/20 08:54 Enoxaparin 40 Mg/0.4 Ml Syringe SUB-Q 40 mg DAILY BRYCE Administration Famotidine 20 mg 01/28/20 21:00 02/03/20 08:54 Famotidine 20 Mg Tablet PO 20 mg Q12HR BRYCE Administration Glucagon 1 mg 01/28/20 13:10 Glucagon For Inj 1 Mg Vial IM PRN PRN Hypoglycemia Protocol Dextrose 1,000 mls @ 100 mls/hr 01/28/20 13:10 Dextrose 5% 1,000 Ml IVPB PRN PRN Hypoglycemia Protocol Midazolam HCl 50 mg in 100 mls @ 1 mls/hr 01/29/20 14:55 02/02/20 15:03 Versed 50 Mg/D5w 100 Ml IV CONT 0.5 mg/hr .Q72H BRYCE 1 mls/hr Titration Protocol 0.5 MG/HR Norepinephrine Bitartrate 8 mg in 250 mls @ 7.5 mls/hr 01/29/20 17:20 1
[2020-02-03] MEDS: INSULIN HUMAN REGULAR (*BKC) 100 UNITS in SODIUM CHLORIDE 0.9% IV 99 ML 11.3 UNITS IV CONT (16:48)
--- NOTE | 2020-02-03 17:31 | PM.IMPN ---
Progress Note: A&P Assessment and Plan (1) Acute respiratory failure: Code(s): J96.00 - Acute respiratory failure, unspecified whether with hypoxia or hypercapnia Status: Acute Assessment and Plan: Acute respiratory failure secondary to healthcare associated pneumonia vs COVID, questionable underlying COPD. - Intubated in the emergency department on 01/28/2020. - Continue full mechanical ventilation support to prevent hypoxia/hypercarbia and end-organ damage. - ABG and portable chest x-ray reviewed, ventilator adjusted. Changed to ASV today. - Versed weaned last night, fentanyl stopped this a.m. 02/03/20 17:31 Healthcare associated pneumonia versus covid 19. Patient was placed in ICU . she is intubated placed on a ventilator. She is listed as a full code. Ventilator settings per watchmaking teacher. Patient is on vancomycin cefepime and azithromycin for the possibility healthcare associated pneumonia. She is also placed on Decadron due to the COVID-19. No antiviral at this time. Due to the acute renal failure and elevated liver enzymes. 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 department with respiratory distress and emergency department patient was intubated as patient was quite hypoxic, and transferred to ICU, suspect patient may have healthcare associated pneumonia as patient was recently discharged from the hospital as well as patient is positive COVID-19, has sepsis most likely secondary to healthcare associated pneumonia patient is being treated with Broad-spectrum antibiotics vancomycin cefepime, urine culture is growing Klebsiella pneumonia sensitive to cefepime, patient was started on tube feeding, patient still on pressors, patient blood sugar were elevated patient was started on IV insulin infusion to bring the blood sugar under control though patient was not in DKA, on 02/01 patient was given trial weaning off the vent however patient became quite tachypneic and hypoxic, patient was sedated and vent was resumed. will continue to monitor prognosis is poor. Today patient remains clinically stable sedation is being reduced in an attempt to wean the patient off ventilator, Patient sputum culture grew Stenotrophomonas seen by Dr. Narayan suspect most likely colonization rather than true infection recommend continue levaquin 2/, patient inflammatory markers are trending down, will continue monitor and appreciate watchmaking teacher (2) Pneumonia: Code(s): J18.9 - Pneumonia, unspecified organism Status: Acute Assessment and Plan: - Sputum culture growing stenotrophomonas maltophilia, susceptible to levofloxacin. - Continue Levaquin, started 02/01 (day 2). Cefepime and vancomycin discontinued 02/01. (3) COVID-19: Code(s): U07.1 - COVID-19 Status: Acute Assessment and Plan: - SARS-CoV-2 PCR was reportedly positive at her [facility], the date of testing not available. - Continue airborne, contact, and droplet isolation. - Dexamethasone started 01/28. - Remdesivir started 01/29 once her renal function improved. - Received 1 unit convalescent plasma on 01/29. - Inflammatory markers continue to improve. (4) Sepsis: Code(s): A41.9 - Sepsis, unspecified organism Status: Acute Assessment and Plan: - Secondary to healthcare associated pneumonia and urinary tract infection. - Cefepime and vancomycin discontinued, now on levofloxacin tailored to cultures. - Sputum culture growing stenotrophomonas maltophilia. - Urine culture growing Klebsiella pneumonia. - Lactic acid has normalized. (5) Shock: Code(s): R57.9 - Shock, unspecified Status: Acute Assessment and Plan: - Secondary to sepsis
[2020-02-03 18:28] LABS: Glucose Point of Care 222 (65-105)
[2020-02-03 18:28] LABS: Glucose Point of Care 182 (65-105)
[2020-02-03 18:28] LABS: Glucose Point of Care 178 (65-105)
[2020-02-03 18:28] LABS: Glucose Point of Care 196 (65-105)
--- NOTE | 2020-02-03 19:59 | CONS_ITS ---
DATE OF CONSULTATION: 02/03/2020 REASON FOR CONSULTATION: Positive sputum culture. HISTORY OF PRESENT ILLNESS: A 75-year-old female, who cannot provide any history. She has a history of dementia per the chart and is currently intubated and sedated. [facility] medical records [facility] a positive Coronavirus test on January 21 or at least result returning at that time. She was sent to this hospital 6 days later with decreased level of consciousness and desaturation. She was intubated in the emergency room and remains on the ventilator now. She has been given vancomycin, azithromycin, and cefepime at various times, now levofloxacin since yesterday in response to the positive sputum culture. Sputum culture was obtained on the day after arrival and returned with the noted results below. Hospital course has been complicated by hypernatremia, acute renal failure, which has substantially resolved, elevated transaminases, hyperglycemia. ALLERGIES: TRIMETHOPRIM SULFA CAUSED UNKNOWN REACTION IN THE PAST AND SAME FOR ERYTHROMYCIN. OTHERS NOT PERTINENT. HABITS: No tobacco. No alcohol. PRESENT MEDICATIONS: She is on dexamethasone, day #7. No other immunosuppressants nor she received at her [facility] for list. PAST MEDICAL HISTORY: GERD, diabetes mellitus, and 3 brain surgeries for unknown pathology. FAMILY HISTORY: Cancer. SOCIAL HISTORY: long term resident, . No family at the bedside. REVIEW OF SYSTEMS: 14-point review not available from the patient due to intubated status. PHYSICAL EXAMINATION: VITAL SIGNS: While on dexamethasone, she has been consistently afebrile. No pressors. 118/57, 52, 17, 94% on the noted ventilator settings. Good urine output. SKIN: No rashes. Warm and dry. EENT: Conjunctivae are clear. Orally intubated. No paranasal sinus inflammation. NECK: No meningismus. She has no adenopathy. LUNGS: Coarse breath sounds, vesicular, clear to percussion. CARDIAC: Bradycardic, regular. No murmurs or gallops. ABDOMEN: Protuberant, nondistended. Hypoactive bowel sounds. No tenderness is apparent. No masses. EXTREMITIES: Trace ankle edema. LABORATORY DATA: Sputum with Stenotrophomonas with mixed enrique on Gram stain. Blood cultures, no growth final. Urine culture with Klebsiella pneumoniae. White blood cell count normal on admission, now up to 14.5, hemoglobin 12.0, platelets are 214. Blood gas 7.47, 29, 77 on the noted ventilator settings. Hypernatremia has recurred at 147 with hyperchloremia, BUN 42, creatinine 0.9. Transaminases twice normal. LDH 889. CRP 2.8, albumin 2.8. Urinalysis contaminated specimen. RADIOLOGY: I personally reviewed her chest x-ray. She has bibasilar interstitial infiltrates, rotated film, PIC and ET tube in place. ASSESSMENT: 1. Positive sputum culture. I suspect a colonizer, but cannot fully read out bacterial superinfection. 2. Multifactorial leukocytosis including her infectious processes as well as steroids. 3. Acute Coronavirus infection with viral pneumonia. 4. Hypernatremia contributing toward her encephalopathy. 5. Sulfa and erythromycin allergies. RECOMMENDATIONS: 1. Given the uncertainty, it is reasonable to continue levofloxacin 7-day course. 2. Complete 10-day course of dexamethasone. 3. I have already asked the [facility] to send records, which they did not do. I will keep trying. Thank you very much for asking me to see her. INDER VARMA M.D. COMMUNITY RELATIONS ASSISTANT COMMUNITY RELATIONS ASSISTANT D I MT: Ulises INTERIANO
[2020-02-03 21:32] LABS: Glucose Point of Care 141 (65-105)
[2020-02-03] MEDS: INSULIN HUMAN REGULAR (*BKC) 100 UNITS in SODIUM CHLORIDE 0.9% IV 99 ML IV CONT (22:28)
[2020-02-03 22:32] LABS: Glucose Point of Care 131 (65-105)
[2020-02-04] VITALS (25 sets, daily range): BP systolic 72–119; BP diastolic 46–63; PULSE 46–206; RESP 18–26; TEMP 36.2–36.6; O2SAT 95–99
[2020-02-04] MEDS: METOCLOPRAMIDE HCL INJ 10 MG/2 ML VIAL 5 MG IV PUSH ×4 (00:30→18:44)
[2020-02-04 00:53] LABS: Glucose Point of Care 155 (65-105)
[2020-02-04 01:49] LABS: Glucose Point of Care 131 (65-105)
[2020-02-04 04:29] LABS: Hematocrit 37.8 % (37.0-47.0); Hemoglobin 11.7 g/dL (12.0-15.0); Mean Corpuscular Hemoglobin 26.1 pg (26-34); Mean Corpuscular Volume 84.2 fl (80-100); Mean Platelet Volume 12.5 fl (7.4-10.4); Platelet Count Result 227 k/mm3 (150-375); Red Blood Count 4.49 M/mm3 (4.2-5.4); White Blood Count 12.7 K/mm3 (4.5-10.0)
[2020-02-04 04:42] LABS: Alveolar/Arterial O2 Gradient 123.8 mmHg; Base Excess ABG 0.3 mEq/l (+/-2.0); Carboxyhemoglobin 0.3 % THb (0-2.0); Fractional Inspired Oxygen 30 %; HCO3 ABG 21.8 mEq/l (22.0-26.0); Methemoglobin ABG 0.3 %THb (0-1.5); Oxygen Content ABG 15.8 %vol (16.0-22.0); Oxygen Saturation ABG 93.6 % (95.0-100.0); Oxyhemoglobin 90.5 % THb (90.0-100.0); PCO2 ABG 26.6 mmHg (35.0-45.0); PO2 ABG 58.8 mmHg (80.0-100.0); PO2 FiO2 Ratio Arterial Blood 1.96 %; Reduced Hemoglobin 8.9 %THb (0-5.0); Total Hemoglobin 12.4 g/dL (12.0-18.0)
[2020-02-04 04:43] LABS: Anion Gap 5 mmol/L (8-16); Blood Urea Nitrogen 38 mg/dL (7-17); Calcium 8.7 mg/dL (8.4-10.2); Carbon Dioxide 27 mmol/L (22-30); Chloride 115 mmol/L (98-107); Estimated CRCL calculation 54 ml/min; Estimated Glomerular Filt Rate > 60; Glucose 153 mg/dL (65-105); Magnesium 2.1 mg/dL (1.6-2.3); Phosphorus 3.6 mg/dL (2.5-4.5); Potassium 3.5 mmol/L (3.4-5.0); Sodium 147 mmol/L (137-145)
[2020-02-04 04:44] LABS: Device VENTILATOR; Modified Allen's Test Pass; Site Drawn RIGHT RADIAL; pH ABG 7.532 (7.350-7.450)
[2020-02-04 04:45] LABS: Arterial Blood Gas PEEP 5 cmH2O; Arterial Blood Gas Tidal Volume 400 ml; Arterial Blood Gas Vent Mode ASSIST CONTROL; Arterial Blood Gas Ventilator rate 14 /MIN
[2020-02-04 06:30] LABS: Glucose Point of Care 128 (65-105)
[2020-02-04 06:30] LABS: Glucose Point of Care 147 (65-105)
[2020-02-04] MEDS: CENTRAL LINE FLUSH 10 ML IV PUSH ×3 (06:43→22:05)
[2020-02-04] MEDS: DEXAMETHASONE SOD PHOS INJ 4 MG/ML VIAL 6 MG IV PUSH (09:25)
[2020-02-04] MEDS: FAMOTIDINE 20 MG TABLET PO ×2 (09:26→22:05)
[2020-02-04] MEDS: ENOXAPARIN 40 MG/0.4 ML SYRINGE SUB-Q (09:27)
[2020-02-04 11:40] LABS: Glucose Point of Care 139 (65-105)
[2020-02-04 11:40] LABS: Glucose Point of Care 173 (65-105)
[2020-02-04] MEDS: TOLNAFTATE 1% POWDER 45 GM BTL 1 APPLIC TOPICAL ×2 (11:59→22:05)
--- NOTE | 2020-02-04 12:58 | PCDIET ---
Nutrition Follow-Up Complete: Inadequate oral intake related to oral intubation as evidenced by need for tube feeding. Patient to meet estimated nutritional needs. Goal: Goal met. Continue goal. Pt current nutrition is Glucerna 1.2 at 50m/hr. Nutrition recommendation: agree Last recorded weight is 75.7kg down from 76.2kg yesterday Bowel Motility: None yet Labs Reviewed:WBC 12.7, 147 Na, Glucose 153, PO4 normal, Bun 38 Meds Noted:Reglan, off all sedation, Decadron, Lovenox, albuterol, norepinephrine Additional Notes: Pt is off all sedation but has not woken up yet. Reglan on board to help promote bowel motility. No skin issues. Pt has been tolerating Glucerna 1.2@50ml/hr over 22hrs with 40ml residual. At goal, nutrition providing 1452kcals, 66g protein, and 885ml of free water. 30ml water flush q 4hrs currently. Na elevated at 147. With all fluids off, recommend increasing water flush to cover additional fluid needs. Recommend 80ml water flush q 4 hrs to provide an additional 480ml of free water. Maceration noted to buttocks per RN. Following daily in ICU rounds. Assessing/reassessing q t/f.
--- NOTE | 2020-02-04 13:00 | WPDINTPN ---
Progress Note: A&P Assessment and Plan (1) Acute respiratory failure: Code(s): J96.00 - Acute respiratory failure, unspecified whether with hypoxia or hypercapnia <Nandini Parra PA-C - Last Filed: 02/04/20 16:50> Status: Acute <Nandini Parra PA-C - Last Filed: 02/04/20 16:50> Assessment and Plan: Acute respiratory failure secondary to healthcare associated pneumonia vs COVID, questionable underlying COPD. - Intubated in the emergency department on 01/28/2020. - Remains intubated but now is on CPAP mode at 10/5, pulling spontaneous tidal volumes around 400. - ABG and portable chest x-ray reviewed, chest x-ray showing some improvement today. - Off sedation as detailed above. <Nandini Parra PA-C - Last Filed: 02/04/20 16:50> (2) Pneumonia: Code(s): J18.9 - Pneumonia, unspecified organism <Nandini Parra PA-C - Last Filed: 02/04/20 16:50> Status: Acute <Nandini Parra PA-C - Last Filed: 02/04/20 16:50> Assessment and Plan: - Sputum culture growing stenotrophomonas maltophilia, susceptible to levofloxacin. - Dr. Narayan (Infectious Disease) was consulted and his input is appreciated. He suspects this may be a colonizer however cannot rule out bacterial superinfection and suggests a 7 day course of levofloxacin. He also recommends completing a 10 day course of dexamethasone. - Continue Levaquin, started 02/01 (day 3/7). Cefepime and vancomycin discontinued 02/01. <Nandini Parra PA-C - Last Filed: 02/04/20 16:50> (3) COVID-19: Code(s): U07.1 - COVID-19 <Nandini Kim YOSI Parra - Last Filed: 02/04/20 16:50> Status: Acute <Nandini JaneYOSI ferrari - Last Filed: 02/04/20 16:50> Assessment and Plan: - SARS-CoV-2 PCR was reportedly positive at her [facility], the date of testing not available. - Continue airborne, contact, and droplet isolation. - Dexamethasone started 01/28. - Remdesivir started 01/29 once her renal function improved and was completed - Received 1 unit convalescent plasma on 01/29. <Nandini Kim YOSI Parra - Last Filed: 02/04/20 16:50> (4) Sepsis: Code(s): A41.9 - Sepsis, unspecified organism <Nandini JoseYuki Parra PA-C - Last Filed: 02/04/20 16:50> Status: Acute <Nandini Judy YOSI Parra - Last Filed: 02/04/20 16:50> Assessment and Plan: - Secondary to healthcare associated pneumonia and urinary tract infection. - Cefepime and vancomycin discontinued, now on levofloxacin tailored to cultures. - Sputum culture growing stenotrophomonas maltophilia. - Urine culture growing Klebsiella pneumonia. - Lactic acid has normalized. <Nandini GarciaYuki Parra PA-C - Last Filed: 02/04/20 16:50> (5) Shock: Code(s): R57.9 - Shock, unspecified <Nandini JoseYuki Parra PA-C - Last Filed: 02/04/20 16:50> Status: Acute <Nandini JoseYuki Parra PA-C - Last Filed: 02/04/20 16:50> Assessment and Plan: - Secondary to sepsis versus sedation, as her lactic acid level is within normal limits. - She has received a good amount of fluids thus will continue to hold further IV fluids. - Versed and fentanyl off for about 36 hours. - Continue to wean Levophed to a MAP of greater than 65 mmHg (average Levophed requirement around 1mcg). - Blood cultures negative x2. <Nandini Parra PA-C - Last Filed: 02/04/20 16:50> (6) Acute hypernatremia: Code(s): E87.0 - Hyperosmolality and hypernatremia <Nandini Parra PA-C - Last Filed: 02/04/20 16:50> Status: Resolved <Nandini Parra PA-C - Last Filed: 02/04/20 16:50> Assessment and Plan: - Persist
[2020-02-04] MEDS: INSULIN HUMAN REGULAR (*BKC) 100 UNITS in SODIUM CHLORIDE 0.9% IV 99 ML 10.1 UNITS IV CONT (15:09)
--- NOTE | 2020-02-04 15:09 | WPDINFPN2 ---
Progress Note: A&P Assessment and Plan (1) COVID-19: Code(s): U07.1 - COVID-19 Status: Acute Assessment and Plan: 1. Acute coronavirus infection with pneumonia, incomplete records sent from [place] [facility] + result returned on 01/21. 2. Stenotrophomonas in sputum, I suspect colonizer rather than a bacterial superinfection complicating #1, but the latter remains possible 3. Multifactorial leukocytosis, improved but not resolved REC Levofloxacin # 3 / 7 days, no dose adjustments needed. On dexamethasone # 8 / 10 days. Again ask [place] to send test records, these are required so that I can adequately assess the accuracy of her coronavirus diagnosis and to advise on any additional treatment measures. Subjective Date/time seen: 02/04/20 15:09 Interval history: intubated, insulin no other drips. Exam Narrative: Exam Narrative: afebrile Const: General: no acute distress Resp: Effort & Inspection: normal respiratory effort Auscultation: clear to auscultation bilaterally Cardio: Rate: regular rate Rhythm: regular rhythm Heart sounds: no gallops and no murmurs GI: Inspection: non-distended GI Palp: Yes Soft to palpation and No Tenderness to palpation present (GI) Urinary Catheter: Urinary Catheter: patent and draining and urine clear Skin: General skin exam: normal color and no rashes or lesions noted Objective Data Vital Signs Vital Signs: Vital Signs - 24 hr 02/03/20 15:45 02/03/20 16:00 02/03/20 17:14 Temperature 36.6 C Pulse Rate 57 L 51 L 51 L Respiratory Rate 18 Blood Pressure 118/53 L Pulse Oximetry 93 95 95 02/03/20 18:00 02/03/20 20:00 02/03/20 21:06 Temperature 36.4 C Pulse Rate 55 L 56 L 57 L Respiratory Rate 24 H 18 Blood Pressure 119/56 L 122/55 L Pulse Oximetry 95 93 97 02/03/20 22:00 02/03/20 23:02 02/03/20 23:08 Temperature Pulse Rate 49 L 60 59 L Respiratory Rate 19 20 Blood Pressure 123/55 L Pulse Oximetry 94 94 94 02/04/20 00:00 02/04/20 00:39 02/04/20 02:15 Temperature 36.4 C L Pulse Rate 59 L 68 60 Respiratory Rate 22 H Blood Pressure 100/53 L 100/53 L 72/47 L Pulse Oximetry 95 02/04/20 02:19 02/04/20 02:48 02/04/20 03:11 Temperature Pulse Rate 57 L 46 L 57 L Respiratory Rate 18 24 H Blood Pressure 96/50 L Pulse Oximetry 96 99 96 02/04/20 04:00 02/04/20 04:06 02/04/20 05:19 Temperature 36.6 C Pulse Rate 62 58 L 51 L Respiratory Rate 22 H Blood Pressure 114/52 L 114/52 L Pulse Oximetry 95 96 02/04/20 06:00 02/04/20 06:41 02/04/20 08:00 Temperature 36.4 C Pulse Rate 54 L 49 L 67 Respiratory Rate 20 21 H Blood Pressure 111/46 L 119/52 L 115/63 Pulse Oximetry 96 96 02/04/20 09:31 02/04/20 10:00 02/04/20 11:00 Temperature Pulse Rate 67 52 L 54 L Respiratory Rate 21 H Blood Pressure 115/63 Pulse Oximetry 96 99 98 02/04/20 12:00 02/04/20 14:00 Temperature 36.4 C L Pulse Rate 52 L 62 Respiratory Rate 23 H 24 H Blood Pressure 118/58 L 118/57 L Pulse Oximetry 97 96 Intake/Output Intake/Output: Intake & Output 02/01/20 02/02/20 02/03/20 02/04/20 23:59 23:59 23:59 23:59 Intake Total 2404 1663.0 1402 904.2 Output Total 1675 1650 1300 550 Balance 729 13.0 102 354.2 Meds/Results Medications: Active Medications Generic Name Dose Route Start Last Admin Trade Name Freq PRN Reason Stop Dose Admin Albuterol 2.5 mg 01/28/20 13:00 01/31/20 19:48 Albuterol Sulfate Neb 2.5 Mg/0.5 Ml Inh INHALATION 2.5 mg Q4HRT PRN Administration Shortness Of Breath Dexamethasone Sodium Phosphate 6 mg 01/29/20 09:00 02/04/20 09:25 Dexamethasone Sod Phos Inj 4 Mg/Ml Vial IV PUSH 02/07/20 09:01 6 mg DAILY BRYCE Administration Dextrose 12.5 gm 01/28/20 13:10 Dextrose 50% 25 Gm/50 Ml Syringe IV PUSH PRN PRN Hypoglycemia Protocol Enoxaparin Sodium 40 mg 01/30/20 09:00 02/04/20 09:27 Enoxaparin 40 Mg/0.4 Ml Syringe SUB-Q 40 mg DAILY BRYCE Administra
[2020-02-04 15:15] LABS: Glucose Point of Care 187 (65-105)
[2020-02-04 15:15] LABS: Glucose Point of Care 164 (65-105)
--- NOTE | 2020-02-04 17:11 | PM.IMPN ---
Progress Note: A&P Assessment and Plan (1) Acute respiratory failure: Code(s): J96.00 - Acute respiratory failure, unspecified whether with hypoxia or hypercapnia Status: Acute Assessment and Plan: Acute respiratory failure secondary to healthcare associated pneumonia vs COVID, questionable underlying COPD. - Intubated in the emergency department on 01/28/2020. - Remains intubated but now is on CPAP mode at 10/5, pulling spontaneous tidal volumes around 400. - ABG and portable chest x-ray reviewed, chest x-ray showing some improvement today. - Off sedation as detailed above. 02/04/20 17:11 Healthcare associated pneumonia versus covid 19. Patient was placed in ICU . she is intubated placed on a ventilator. She is listed as a full code. Ventilator settings per professional bass fisher. Patient is on vancomycin cefepime and azithromycin for the possibility healthcare associated pneumonia. She is also placed on Decadron due to the COVID-19. No antiviral at this time. Due to the acute renal failure and elevated liver enzymes. 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 department with respiratory distress and emergency department patient was intubated as patient was quite hypoxic, and transferred to ICU, suspect patient may have healthcare associated pneumonia as patient was recently discharged from the hospital as well as patient is positive COVID-19, has sepsis most likely secondary to healthcare associated pneumonia patient is being treated with Broad-spectrum antibiotics vancomycin cefepime, urine culture is growing Klebsiella pneumonia sensitive to cefepime, patient was started on tube feeding, patient still on pressors, patient blood sugar were elevated patient was started on IV insulin infusion to bring the blood sugar under control though patient was not in DKA, on 02/01 patient was given trial weaning off the vent however patient became quite tachypneic and hypoxic, patient was sedated and vent was resumed. will continue to monitor prognosis is poor. Today patient remains clinically stable sedation is being reduced in an attempt to wean the patient off ventilator patient on CPAP mode, Patient sputum culture grew Stenotrophomonas seen by Dr. Narayan suspect most likely colonization rather than true infection recommend continue levaquin 05/28, recommended complete the 10 days course of dexamethasone patient inflammatory markers are trending down, will continue monitor and appreciate professional bass fisher (2) Pneumonia: Code(s): J18.9 - Pneumonia, unspecified organism Status: Acute Assessment and Plan: - Sputum culture growing stenotrophomonas maltophilia, susceptible to levofloxacin. - Dr. Narayan (Infectious Disease) was consulted and his input is appreciated. He suspects this may be a colonizer however cannot rule out bacterial superinfection and suggests a 7 day course of levofloxacin. He also recommends completing a 10 day course of dexamethasone. - Continue Levaquin, started 02/01 (day 3/7). Cefepime and vancomycin discontinued 02/01. (3) COVID-19: Code(s): U07.1 - COVID-19 Status: Acute Assessment and Plan: - SARS-CoV-2 PCR [facility] at [facility], the date of testing not available. - Continue airborne, contact, and droplet isolation. - Dexamethasone started 01/28. - Remdesivir started 01/29 once her renal function improved and was completed - Received 1 unit convalescent plasma on 01/29. (4) Sepsis: Code(s): A41.9 - Sepsis, unspecified organism Status: Acute Assessment and Plan: - Secondary to healthcare associated pneumonia and urinary tract infection. - Cefepime and
[2020-02-04 17:12] LABS: Glucose Point of Care 158 (65-105)
[2020-02-04 22:10] LABS: Glucose Point of Care 150 (65-105)
[2020-02-04 22:10] LABS: Glucose Point of Care 156 (65-105)
[2020-02-05] VITALS (25 sets, daily range): BP systolic 94–111; BP diastolic 47–67; PULSE 48–93; RESP 19–26; TEMP 36–37.1; O2SAT 90–98
[2020-02-05] MEDS: METOCLOPRAMIDE HCL INJ 10 MG/2 ML VIAL 5 MG IV PUSH ×5 (00:05→23:39)
[2020-02-05 00:48] LABS: Glucose Point of Care 109 (65-105)
[2020-02-05 05:05] LABS: Alveolar/Arterial O2 Gradient 155.7 mmHg; Base Excess ABG 2.2 mEq/l (+/-2.0); Carboxyhemoglobin 0.3 % THb (0-2.0); Fractional Inspired Oxygen 35 %; HCO3 ABG 24.2 mEq/l (22.0-26.0); Methemoglobin ABG 0.1 %THb (0-1.5); Oxygen Content ABG 16.3 %vol (16.0-22.0); Oxygen Saturation ABG 93.4 % (95.0-100.0); Oxyhemoglobin 90.8 % THb (90.0-100.0); PO2 FiO2 Ratio Arterial Blood 1.69 %; Reduced Hemoglobin 8.8 %THb (0-5.0); Total Hemoglobin 12.8 g/dL (12.0-18.0)
[2020-02-05 05:08] LABS: Arterial Blood Gas Vent Mode PRESSURE SUPPORT; Device VENTILATOR; Modified Allen's Test Pass; Site Drawn LEFT RADIAL; pH ABG 7.525 (7.350-7.450)
[2020-02-05 05:09] LABS: Arterial Blood Gas PEEP 5 cmH2O; Arterial Blood Gas Pressure Support 10 cmH2O
[2020-02-05 07:57] LABS: Glucose Point of Care 131 (65-105)
[2020-02-05] MEDS: DEXAMETHASONE SOD PHOS INJ 4 MG/ML VIAL 6 MG IV PUSH (08:32)
[2020-02-05] MEDS: CENTRAL LINE FLUSH 10 ML IV PUSH ×3 (08:33→20:41)
[2020-02-05] MEDS: INSULIN HUMAN REGULAR (*BKC) 100 UNITS in SODIUM CHLORIDE 0.9% IV 99 ML 5.4 UNITS IV CONT (08:35)
[2020-02-05 08:58] LABS: Hematocrit 36.5 % (37.0-47.0); Hemoglobin 11.3 g/dL (12.0-15.0); Mean Corpuscular Hemoglobin 26.1 pg (26-34); Mean Corpuscular Volume 84.3 fl (80-100); Mean Platelet Volume 11.9 fl (7.4-10.4); Platelet Count Result 195 k/mm3 (150-375); Red Blood Count 4.33 M/mm3 (4.2-5.4); White Blood Count 9.7 K/mm3 (4.5-10.0)
[2020-02-05 09:09] LABS: D Dimer 0.67 ug/mL (<0.48)
[2020-02-05 09:13] LABS: Alanine Aminotransferase 36 U/L (4-35); Albumin Level 2.5 g/dL (3.5-5.1); Alkaline Phosphatase 109 U/L (38-126); Anion Gap 6 mmol/L (8-16); Aspartate Amino Transferase 50 U/L (14-36); Bilirubin,Total 0.3 mg/dL (0.2-1.3); Blood Urea Nitrogen 35 mg/dL (7-17); Calcium 9.1 mg/dL (8.4-10.2); Carbon Dioxide 28 mmol/L (22-30); Chloride 108 mmol/L (98-107); Estimated CRCL calculation 61 ml/min; Estimated Glomerular Filt Rate > 60; Glucose 131 mg/dL (65-105); Lactate Dehydrogenase 685 U/L (313-618); Phosphorus 4.2 mg/dL (2.5-4.5); Potassium 3.3 mmol/L (3.4-5.0); Sodium 142 mmol/L (137-145)
[2020-02-05 09:22] LABS: Glucose Point of Care 139 (65-105)
[2020-02-05] MEDS: ENOXAPARIN 40 MG/0.4 ML SYRINGE SUB-Q (10:58)
[2020-02-05] MEDS: TOLNAFTATE 1% POWDER 45 GM BTL 1 APPLIC TOPICAL ×2 (10:59→20:41)
[2020-02-05] MEDS: FAMOTIDINE 20 MG TABLET PO (10:59)
[2020-02-05 11:53] LABS: Glucose Point of Care 166 (65-105)
[2020-02-05 11:53] LABS: Glucose Point of Care 140 (65-105)
[2020-02-05 12:53] LABS: Glucose Point of Care 145 (65-105)
--- NOTE | 2020-02-05 13:46 | WPDINTPN ---
Progress Note: A&P Assessment and Plan (1) Acute respiratory failure: Code(s): J96.00 - Acute respiratory failure, unspecified whether with hypoxia or hypercapnia Status: Acute Assessment and Plan: Acute Respiratory failure secondary to healthcare associated pneumonia versus COVID-19, ? questionable baseline COPD - patient was intubated on 01/28/2020 in the ER Continue full mechanical ventilation support to prevent hypoxemia/hypercarbia and end organ damage. ABG and PCXR reviewed, ventilator adjusted. 35% FiO2, peep of 5. SBT trial once her mental status improved and she is following commands. She was initially on broad-spectrum antibiotics with cefepime and vancomycin. Now both has been started and currently on levofloxacin. Sputum culture grew stenotrophomonas which is sensitive to Levaquin. Bronchodilators - Fentanyl and Versed for sedation, daily sedation vacation, maintain RASS of 0 to -2 (2) Pneumonia: Code(s): J18.9 - Pneumonia, unspecified organism Status: Acute Assessment and Plan: SPUTUM CULTURES GROWING STENOTROPHOMONAS MALTOPHILIA: susceptible to Levaquin, - I discontinued cefepime and started patient on Levaquin ( initiated on 02/02/2020) (3) Sepsis: Code(s): A41.9 - Sepsis, unspecified organism Status: Acute Assessment and Plan: Sepsis secondary to healthcare associated pneumonia and UTI urine cultures growing Klebsiella, discontinued cefepime and started patient on Levaquin blood cultures negative x2, vancomycin DCd lactic acid level has normalized now (4) Shock: Code(s): R57.9 - Shock, unspecified Status: Acute Assessment and Plan: septic versus secondary to sedation as lactate is normal and patient had received good amount of IV fluids hold further IV fluids continue Levophed, wean to maintain map > 65 mmHg (5) COVID-19: Code(s): U07.1 - COVID-19 Status: Acute Assessment and Plan: SARS-CoV-2 PCR was positive at [facility]. date of testing is not available yet. will try to obtain records from [facility] Patient is in Airborne, Droplet and Contact Isolation dexamethasone 01/28 completed remdisivir which was started on 01/29. 1 unit of Convalscent plasma on 01/29 D-dimer, CRP, LDH trending down. Ferritin is normal, continue to monitor inflammatory marker (6) Acute hypernatremia: Code(s): E87.0 - Hyperosmolality and hypernatremia Status: Acute Assessment and Plan: Hypernatremia and hyperchloremia suggestive of intravascular volume depletion sodium levels improving and hypernatremia has resolved now. Continue free water flushes per (7) Elevated transaminase level: Code(s): R74.01 - Elevation of levels of liver transaminase levels Status: Acute Assessment and Plan: improving. continue to monitor (8) JOSE ANGEL (acute kidney injury): Code(s): N17.9 - Acute kidney failure, unspecified Status: Resolved Assessment and Plan: JOSE ANGEL likely prerenal from sepsis and hypovolemia Acute kidney injury resolved now. US - Sonographically unremarkable kidneys. Monitor creatinine electrolytes and urine output (9) Encephalopathy acute: Code(s): G93.40 - Encephalopathy, unspecified Status: Acute Assessment and Plan: persists: likely toxic metabolic encephalopathy unchanged head CT from past - could be related to septic shock, hypernatremia, COVID-19 pneumonia She has been off sedatives the last 48+ hours and has not been waking up. I will get a brain CT to rule out any intracranial pathologies. I will order an EEG as well. If her mental status continued to like this and initial workup does not show any significant pathology then neurology will be consulted. (10) DM2 (diabetes mellitus, type 2): Code(s): E11.9 - Type 2 diabetes mellitus without complications Status: Chronic Assessment and Plan: uncon
[2020-02-05 13:51] LABS: Glucose Point of Care 161 (65-105)
[2020-02-05] MEDS: INSULIN GLARGINE (*BKC) 100 UNITS/ML 40 UNITS SUB-Q (14:41)
[2020-02-05 15:13] LABS: Glucose Point of Care 158 (65-105)
--- NOTE | 2020-02-05 17:20 | PM.IMPN ---
Progress Note: A&P Assessment and Plan (1) Acute respiratory failure: Code(s): J96.00 - Acute respiratory failure, unspecified whether with hypoxia or hypercapnia Status: Acute Assessment and Plan: Acute respiratory failure secondary to healthcare associated pneumonia vs COVID, questionable underlying COPD. - Intubated in the emergency department on 01/28/2020. - Remains intubated but now is on CPAP mode at 10/5, pulling spontaneous tidal volumes around 400. - ABG and portable chest x-ray reviewed, chest x-ray showing some improvement today. - Off sedation as detailed above. 02/05/20 17:20 Healthcare associated pneumonia versus covid 19. Patient was placed in ICU . she is intubated placed on a ventilator. She is listed as a full code. Ventilator settings per distribution operation supervisor. Patient is on vancomycin cefepime and azithromycin for the possibility healthcare associated pneumonia. She is also placed on Decadron due to the COVID-19. No antiviral at this time. Due to the acute renal failure and elevated liver enzymes. 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 department with respiratory distress and emergency department patient was intubated as patient was quite hypoxic, and transferred to ICU, suspect patient may have healthcare associated pneumonia as patient was recently discharged from the hospital as well as patient is positive COVID-19, has sepsis most likely secondary to healthcare associated pneumonia patient is being treated with Broad-spectrum antibiotics vancomycin cefepime, urine culture is growing Klebsiella pneumonia sensitive to cefepime, patient was started on tube feeding, patient still on pressors, patient blood sugar were elevated patient was started on IV insulin infusion to bring the blood sugar under control though patient was not in DKA, on 02/01 patient was given trial weaning off the vent however patient became quite tachypneic and hypoxic, patient was sedated and vent was resumed. will continue to monitor prognosis is poor. Today patient remains clinically stable sedation is being reduced in an attempt to wean the patient off ventilator patient on CPAP mode, however patient is not following simple, unable to wean the patient off ventilator. Patient sputum culture grew Stenotrophomonas was seen by Dr. Narayan suspect most likely colonization rather than true infection recommend continue levaquin /, recommended complete the 8/10 days course of dexamethasone patient inflammatory markers are trending down, will continue monitor and appreciate distribution operation supervisor (2) Pneumonia: Code(s): J18.9 - Pneumonia, unspecified organism Status: Acute Assessment and Plan: - Sputum culture growing stenotrophomonas maltophilia, susceptible to levofloxacin. - Dr. Narayan (Infectious Disease) was consulted and his input is appreciated. He suspects this may be a colonizer however cannot rule out bacterial superinfection and suggests a 7 day course of levofloxacin. He also recommends completing a 10 day course of dexamethasone. - Continue Levaquin, started 02/01 (day 3/7). Cefepime and vancomycin discontinued 02/01. (3) COVID-19: Code(s): U07.1 - COVID-19 Status: Acute Assessment and Plan: - SARS-CoV-2 PCR was reportedly positive at her shelter, the date of testing not available. - Continue airborne, contact, and droplet isolation. - Dexamethasone started 01/28. - Remdesivir started 01/29 once her renal function improved and was completed - Received 1 unit convalescent plasma on 01/29. (4) Sepsis: Code(s): A41.9 - Sepsis, unspecified organism Status: Acute Assessment and Plan: - Secondary to healthcar
[2020-02-05 20:37] LABS: Glucose Point of Care 138 (65-105)
[2020-02-05] MEDS: INSULIN DETEMIR 100 UNITS/ML 40 UNITS SUB-Q (20:41)
[2020-02-05] MEDS: FAMOTIDINE 20 MG/2 ML VIAL IV PUSH (20:41)
[2020-02-05 20:58] LABS: Glucose Point of Care 282 (65-105)
[2020-02-05] MEDS: INSULIN ASPART (*BKC) 100 UNITS/ML SUB-Q (23:39)
[2020-02-05 23:44] LABS: Glucose Point of Care 305 (65-105)
[2020-02-06] VITALS (22 sets, daily range): BP systolic 84–125; BP diastolic 44–62; PULSE 52–84; RESP 16–23; TEMP 36.3–36.9; O2SAT 93–98
[2020-02-06] MEDS: CENTRAL LINE FLUSH 10 ML IV PUSH ×3 (04:54→20:44)
[2020-02-06] MEDS: METOCLOPRAMIDE HCL INJ 10 MG/2 ML VIAL 5 MG IV PUSH ×3 (06:13→18:22)
[2020-02-06] MEDS: INSULIN ASPART (*BKC) 100 UNITS/ML SUB-Q ×3 (06:13→18:23)
[2020-02-06 06:21] LABS: Glucose Point of Care 281 (65-105)
[2020-02-06 06:25] LABS: Hematocrit 34.3 % (37.0-47.0); Hemoglobin 10.7 g/dL (12.0-15.0); Mean Corpuscular HGB Conc 31.2 g/dl (32-36); Mean Corpuscular Hemoglobin 25.8 pg (26-34); Mean Corpuscular Volume 82.9 fl (80-100); Platelet Count Result 205 k/mm3 (150-375); Red Blood Count 4.14 M/mm3 (4.2-5.4); Red Cell Distribution Width 16.6 % (11.5-14.5); White Blood Count 11.1 K/mm3 (4.5-10.0)
[2020-02-06 06:25] LABS: Alveolar/Arterial O2 Gradient 146.9 mmHg; Base Excess ABG 2.4 mEq/l (+/-2.0); Carboxyhemoglobin 0.3 % THb (0-2.0); Device VENTILATOR; Fractional Inspired Oxygen 35 %; HCO3 ABG 24.5 mEq/l (22.0-26.0); Methemoglobin ABG 0.2 %THb (0-1.5); Modified Allen's Test Unable to perform; Oxygen Content ABG 15.6 %vol (16.0-22.0); Oxygen Saturation ABG 95.4 % (95.0-100.0); Oxyhemoglobin 92.3 % THb (90.0-100.0); PCO2 ABG 30.2 mmHg (35.0-45.0); PO2 ABG 67.5 mmHg (80.0-100.0); PO2 FiO2 Ratio Arterial Blood 1.93 %; Reduced Hemoglobin 7.2 %THb (0-5.0); Site Drawn RIGHT RADIAL; pH ABG 7.527 (7.350-7.450)
[2020-02-06 06:26] LABS: Arterial Blood Gas PEEP 5 cmH2O; Arterial Blood Gas Vent Mode SPONTANEOUS; Arterial Blood Gas Ventilator rate 4 /MIN
[2020-02-06 06:39] LABS: Anion Gap 7 mmol/L (8-16); Blood Urea Nitrogen 34 mg/dL (7-17); Calcium 8.7 mg/dL (8.4-10.2); Carbon Dioxide 28 mmol/L (22-30); Chloride 106 mmol/L (98-107); Estimated CRCL calculation 60 ml/min; Estimated Glomerular Filt Rate > 60; Glucose 266 mg/dL (65-105); Potassium 3.9 mmol/L (3.4-5.0); Sodium 141 mmol/L (137-145)
[2020-02-06] MEDS: ENOXAPARIN 40 MG/0.4 ML SYRINGE SUB-Q (09:10)
[2020-02-06] MEDS: DEXAMETHASONE SOD PHOS INJ 4 MG/ML VIAL 6 MG IV PUSH (09:10)
[2020-02-06] MEDS: FAMOTIDINE 20 MG/2 ML VIAL IV PUSH ×2 (09:11→20:40)
[2020-02-06] MEDS: TOLNAFTATE 1% POWDER 45 GM BTL 1 APPLIC TOPICAL ×2 (09:12→20:44)
[2020-02-06] MEDS: SODIUM CHLORIDE 0.9% IV 500 ML IV CONT (09:26)
[2020-02-06] MEDS: INSULIN DETEMIR 100 UNITS/ML 40 UNITS SUB-Q (09:34)
[2020-02-06 12:57] LABS: Glucose Point of Care 268 (65-105)
--- NOTE | 2020-02-06 13:11 | WPDINTPN ---
Progress Note: A&P Assessment and Plan (1) Acute respiratory failure: Code(s): J96.00 - Acute respiratory failure, unspecified whether with hypoxia or hypercapnia Status: Acute Assessment and Plan: Acute Respiratory failure secondary to healthcare associated pneumonia versus COVID-19, ? questionable baseline COPD - patient was intubated on 01/28/2020 in the ER Continue full mechanical ventilation support to prevent hypoxemia/hypercarbia and end organ damage. She was on pressure support ventilation since yesterday and seems to be doing well but her mental status is preventing extubation. I will put her back on mechanical ventilation for her to have some rest. She will be reassessed in the a.m. for her mental status and if she is more awake and following command then she will be put on SBT trial and will try to extubate her if she does well. The ventilator she has at the bedside does not have CMV mode and can only do AVAPS which she is currently on. ABG and PCXR reviewed. She was initially on broad-spectrum antibiotics with cefepime and vancomycin. Now both has been stopped and currently on levofloxacin. Sputum culture grew stenotrophomonas which is sensitive to Levaquin. Bronchodilators - Fentanyl and Versed for sedation, daily sedation vacation, maintain RASS of 0 to -2 (2) Pneumonia: Code(s): J18.9 - Pneumonia, unspecified organism Status: Acute Assessment and Plan: SPUTUM CULTURES GROWING STENOTROPHOMONAS MALTOPHILIA: susceptible to Levaquin, - Continue on Levaquin ( initiated on 02/02/2020). cefepime and vancomycin has been discontinued. (3) Sepsis: Code(s): A41.9 - Sepsis, unspecified organism Status: Acute Assessment and Plan: Sepsis secondary to healthcare associated pneumonia and UTI urine cultures growing Klebsiella. Sputum culture grew stenotrophonas. infectious disease service is following. He was on cefepime and vancomycin but now has been transitioned to levofloxacin only. blood cultures negative x2 lactic acid level has normalized now (4) Shock: Code(s): R57.9 - Shock, unspecified Status: Acute Assessment and Plan: shock with unclear etiology with septic versus secondary to sedation versus hypovolemia She has weaned off from Levophed. Blood pressure was borderline low. Will give 500 cc of IV fluid (5) COVID-19: Code(s): U07.1 - COVID-19 Status: Acute Assessment and Plan: SARS-CoV-2 PCR was positive at [facility]. date of testing is not available yet. will try to obtain records from [facility] Patient is in Airborne, Droplet and Contact Isolation dexamethasone started on 01/28 completed remdisivir which was started on 01/29. 1 unit of Convalscent plasma on 01/29 D-dimer, CRP, LDH trending down. Ferritin is normal, continue to monitor inflammatory marker (6) Acute hypernatremia: Code(s): E87.0 - Hyperosmolality and hypernatremia Status: Acute Assessment and Plan: Hypernatremia and hyperchloremia suggestive of intravascular volume depletion sodium levels improving and hypernatremia has resolved now. Continue free water flushes (7) Elevated transaminase level: Code(s): R74.01 - Elevation of levels of liver transaminase levels Status: Acute Assessment and Plan: improving. continue to monitor (8) JOSE ANGEL (acute kidney injury): Code(s): N17.9 - Acute kidney failure, unspecified Status: Resolved Assessment and Plan: JOSE ANGEL likely prerenal from sepsis and hypovolemia Acute kidney injury resolved now. US - Sonographically unremarkable kidneys. Monitor creatinine electrolytes and urine output (9) Encephalopathy acute: Code(s): G93.40 - Encephalopathy, unspecified Status: Acute Assessment and Plan: persists: likely toxic metabolic encephalopathy unchanged head CT from past - could be related to septic s
--- NOTE | 2020-02-06 16:10 | PM.IMPN ---
Progress Note: A&P Assessment and Plan (1) Acute respiratory failure: Code(s): J96.00 - Acute respiratory failure, unspecified whether with hypoxia or hypercapnia Status: Acute Assessment and Plan: Acute respiratory failure secondary to healthcare associated pneumonia vs COVID, questionable underlying COPD. - Intubated in the emergency department on 01/28/2020. - Remains intubated but now is on CPAP mode at 10/5, pulling spontaneous tidal volumes around 400. - ABG and portable chest x-ray reviewed, chest x-ray showing some improvement today. - Off sedation as detailed above. 02/06/20 16:10 Healthcare associated pneumonia versus covid 19. Patient was placed in ICU . she is intubated placed on a ventilator. She is listed as a full code. Ventilator settings per carcass washer. Patient is on vancomycin cefepime and azithromycin for the possibility healthcare associated pneumonia. She is also placed on Decadron due to the COVID-19. No antiviral at this time. Due to the acute renal failure and elevated liver enzymes. 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 department with respiratory distress and emergency department patient was intubated as patient was quite hypoxic, and transferred to ICU, suspect patient may have healthcare associated pneumonia as patient was recently discharged from the hospital as well as patient is positive COVID-19, has sepsis most likely secondary to healthcare associated pneumonia patient is being treated with Broad-spectrum antibiotics vancomycin cefepime, urine culture is growing Klebsiella pneumonia sensitive to cefepime, patient was started on tube feeding, patient still on pressors, patient blood sugar were elevated patient was started on IV insulin infusion to bring the blood sugar under control though patient was not in DKA, on 02/01 patient was given trial weaning off the vent however patient became quite tachypneic and hypoxic, patient was sedated and vent was resumed. will continue to monitor prognosis is poor. Today patient been off sedation for 72 hours however patient is not responding, patient opens her eyes but does not follow any instruction CT scan of the head is negative for any acute injury, patient is scheduled to have EEG tomorrow and further recommendation to follow Patient sputum culture grew Stenotrophomonas was seen by Dr. Narayan suspect most likely colonization rather than true infection recommend continue levaquin /, recommended complete the 9/10 days course of dexamethasone patient inflammatory markers are trending down, will continue monitor and appreciate carcass washer, patient is off insulin drip now on long-acting Lantus 44 units b.i.d. will continue to monitor with sliding scale. (2) Pneumonia: Code(s): J18.9 - Pneumonia, unspecified organism Status: Acute Assessment and Plan: - Sputum culture growing stenotrophomonas maltophilia, susceptible to levofloxacin. - Dr. Narayan (Infectious Disease) was consulted and his input is appreciated. He suspects this may be a colonizer however cannot rule out bacterial superinfection and suggests a 7 day course of levofloxacin. He also recommends completing a 10 day course of dexamethasone. - Continue Levaquin, started 02/01 (day 3/7). Cefepime and vancomycin discontinued 02/01. (3) COVID-19: Code(s): U07.1 - COVID-19 Status: Acute Assessment and Plan: - SARS-CoV-2 PCR was reportedly positive at her detention, the date of testing not available. - Continue airborne, contact, and droplet isolation. - Dexamethasone started 01/28. - Remdesivir started 01/29 once her renal function improved and was completed - Received 1 unit convalescent plasma on 01/29.
[2020-02-06 18:47] LABS: Glucose Point of Care 302 (65-105)
[2020-02-06 20:48] LABS: Glucose Point of Care 279 (65-105)
[2020-02-06] MEDS: INSULIN DETEMIR 100 UNITS/ML 44 UNITS SUB-Q (22:32)
[2020-02-07] VITALS (19 sets, daily range): BP systolic 93–151; BP diastolic 50–94; PULSE 46–74; RESP 14–20; TEMP 36.6–37.3; O2SAT 95–99
[2020-02-07] MEDS: METOCLOPRAMIDE HCL INJ 10 MG/2 ML VIAL 5 MG IV PUSH ×4 (00:20→18:29)
[2020-02-07 00:26] LABS: Glucose Point of Care 247 (65-105)
[2020-02-07] MEDS: INSULIN ASPART (*BKC) 100 UNITS/ML SUB-Q ×3 (00:55→18:29)
[2020-02-07 04:36] LABS: Hematocrit 34.1 % (37.0-47.0); Hemoglobin 10.6 g/dL (12.0-15.0); Mean Corpuscular HGB Conc 31.1 g/dl (32-36); Mean Corpuscular Hemoglobin 25.6 pg (26-34); Mean Corpuscular Volume 82.4 fl (80-100); Mean Platelet Volume 12.1 fl (7.4-10.4); Platelet Count Result 195 k/mm3 (150-375); Red Blood Count 4.14 M/mm3 (4.2-5.4); Red Cell Distribution Width 16.4 % (11.5-14.5); White Blood Count 10.9 K/mm3 (4.5-10.0)
[2020-02-07 04:52] LABS: Anion Gap 4 mmol/L (8-16); Blood Urea Nitrogen 30 mg/dL (7-17); CRP 0.9 mg/dL (<1.0); Calcium 8.8 mg/dL (8.4-10.2); Carbon Dioxide 30 mmol/L (22-30); Chloride 104 mmol/L (98-107); Estimated CRCL calculation 60 ml/min; Estimated Glomerular Filt Rate > 60; Glucose 229 mg/dL (65-105); Lactate Dehydrogenase 625 U/L (313-618); Potassium 3.9 mmol/L (3.4-5.0); Sodium 138 mmol/L (137-145)
[2020-02-07 04:55] LABS: D Dimer 0.64 ug/mL (<0.48)
[2020-02-07] MEDS: CENTRAL LINE FLUSH 10 ML IV PUSH ×3 (06:17→20:23)
[2020-02-07 06:43] LABS: Alveolar/Arterial O2 Gradient 127.6 mmHg; Base Excess ABG 2.7 mEq/l (+/-2.0); Carboxyhemoglobin 0.3 % THb (0-2.0); Fractional Inspired Oxygen 35 %; HCO3 ABG 25.2 mEq/l (22.0-26.0); Methemoglobin ABG 0.2 %THb (0-1.5); Oxygen Content ABG 16.1 %vol (16.0-22.0); Oxygen Saturation ABG 97.3 % (95.0-100.0); Oxyhemoglobin 95.5 % THb (90.0-100.0); PCO2 ABG 31.8 mmHg (35.0-45.0); PO2 FiO2 Ratio Arterial Blood 2.43 %; Total Hemoglobin 11.9 g/dL (12.0-18.0)
[2020-02-07 06:44] LABS: Modified Allen's Test Unable to perform; Site Drawn LEFT RADIAL; pH ABG 7.516 (7.350-7.450)
[2020-02-07 06:45] LABS: Arterial Blood Gas PEEP 5 cmH2O; Arterial Blood Gas Tidal Volume 400 ml; Arterial Blood Gas Ventilator rate 16 /MIN; Device VENTILATOR
[2020-02-07] MEDS: FUROSEMIDE INJ 40 MG/4 ML VIAL IV PUSH (09:57)
[2020-02-07] MEDS: DEXAMETHASONE SOD PHOS INJ 4 MG/ML VIAL 6 MG IV PUSH (09:58)
[2020-02-07] MEDS: ENOXAPARIN 40 MG/0.4 ML SYRINGE SUB-Q (09:58)
[2020-02-07] MEDS: FAMOTIDINE 20 MG/2 ML VIAL IV PUSH ×2 (09:58→20:22)
[2020-02-07] MEDS: INSULIN DETEMIR 100 UNITS/ML 50 UNITS SUB-Q ×2 (09:59→20:23)
[2020-02-07] MEDS: TOLNAFTATE 1% POWDER 45 GM BTL 1 APPLIC TOPICAL (09:59)
--- NOTE | 2020-02-07 10:17 | WPDNEURCNPN ---
Assessment and Plan Assessment and plan (1) Shock: Code(s): R57.9 - Shock, unspecified Status: Acute (2) Chronic GERD: Code(s): K21.9 - Gastro-esophageal reflux disease without esophagitis Status: Chronic (3) DM2 (diabetes mellitus, type 2): Code(s): E11.9 - Type 2 diabetes mellitus without complications Status: Chronic (4) Sepsis: Code(s): A41.9 - Sepsis, unspecified organism Status: Acute (5) Encephalopathy acute: Code(s): G93.40 - Encephalopathy, unspecified Status: Acute (6) Acute respiratory failure: Code(s): J96.00 - Acute respiratory failure, unspecified whether with hypoxia or hypercapnia Status: Acute (7) JOSE ANGEL (acute kidney injury): Code(s): N17.9 - Acute kidney failure, unspecified Status: Resolved (8) Respiratory failure: Code(s): J96.90 - Respiratory failure, unspecified, unspecified whether with hypoxia or hypercapnia Status: Acute (9) Pneumonia: Code(s): J18.9 - Pneumonia, unspecified organism Status: Acute (10) Elevated transaminase level: Code(s): R74.01 - Elevation of levels of liver transaminase levels Status: Acute (11) Acute hypernatremia: Code(s): E87.0 - Hyperosmolality and hypernatremia Status: Acute (12) UTI (urinary tract infection): Code(s): N39.0 - Urinary tract infection, site not specified Status: Acute (13) Acute renal failure: Code(s): N17.9 - Acute kidney failure, unspecified Status: Acute Additional Plan will continue the treatment as such Consult date: 02/07/20 Time Seen: 10:15 HPI: Linette Vásquez is a 75 year old female admitted to the hospital with respiratory failure, COVID pneumonia and hypernatremia on transfer from the [facility] in jail since admission has been transferred to the intensive care for the acute respiratory failure and being treated for the hypoxia and hypercapnia intubated and ventilated at present receiving vancomycin seen cefepime is through my seen for the healthcare associated possibility of pneumonia in addition to the Decadron but patient is in acute renal failure for that reason antiviral are being head patient does have a history of underlying dementia Review of Systems Review of Systems: All systems reviewed & are unremarkable except as noted in HPI and below PMFSH Past Medical History Medical History Chronic GERD DM2 (diabetes mellitus, type 2) Surgical History Surgical History History of brain surgery resection of brain tumor Family History Family History Sibling Breast cancer Father Lung cancer Social History Social History Social History: according to her records she does not smoke or drink any more however she is listed as a former smoker. she lives in a jail . She is listed as . she does have a durable power disability attorney for healthcare. She has a armaan Lenin [phone] is a durable power disability attorney. She also has her brother Larry listed as a service advocate contact [phone]. Years smoked: 46 Smoking status: Former smoker Tobacco type: cigarettes Smoking end date: 10/22/17 Living arrangements: jail Gender identity (if verbalized by the patient): Female Spiritual care concerns: No Meds Home Medications and Allergies Home Medications Medication Instructions Recorded Confirmed Type Lactobacillus acidophilus 1 tablet PO BID 01/28/20 01/28/20 History ergocalciferol (vitamin D2) 1,250 mcg PO WEEKLY 01/28/20 01/28/20 History insulin glargine [Basaglar KwikPen 14 unit SUBCUT BID 01/28/20 01/28/20 History U-100 Insulin] omeprazole 20 mg PO BID 01/28/20 01/28/20 History oxybutynin chloride 5 mg PO DAILY 01/28/20 1
--- NOTE | 2020-02-07 12:17 | PCDIET ---
ICU Rounding Note: Patient tolerating Glucerna 1.2 at goal rate of 50mL/hr. Last recorded weight is 71.9kg which is decreased from last review, though up from admission. Bowel Motility: BM x 2 on 02/06/20. Labs Reviewed: Hgb (10.6), Hct (34.1), Glu (229) Meds Noted: Albuterol, Pepcid, Atrovent, Reglan, Levophed, Novolog, Levemir, Levaquin Additional Notes: Coccyx macerated. Following daily in ICU rounds. Assessing/reassessing every Friday/Friday.
[2020-02-07 12:43] LABS: Glucose Point of Care 199 (65-105)
--- NOTE | 2020-02-07 13:20 | WPDINFPN2 ---
Progress Note: A&P Assessment and Plan (1) COVID-19: Code(s): U07.1 - COVID-19 Status: Acute Assessment and Plan: 1. Acute coronavirus infection with pneumonia. 2. Stenotrophomonas in sputum, I suspect colonizer rather than a bacterial superinfection complicating #1, but the latter remains possible 3. Multifactorial leukocytosis, improved but not resolved REC Levofloxacin # 6 / 7 days, no dose adjustments needed. Off dexamethasone, with no further adjunctive treatment. Subjective Date/time seen: 02/07/20 13:20 Interval history: [facility] finally sent her test results: PCR assay + 01/20 collection date, resulted 01/21. Same test, collected 3 days prior, was negative. I have no information, despite my persistent attempts to obtain, regarding clinical reason(s) for the testing Exam Narrative: Exam Narrative: afebrile. Sedated, no pressors Const: General: no acute distress Resp: Effort & Inspection: normal respiratory effort Auscultation: clear to auscultation bilaterally Cardio: Rate: regular rate Rhythm: regular rhythm Heart sounds: no gallops and no murmurs GI: Inspection: non-distended GI Palp: Yes Soft to palpation and No Tenderness to palpation present (GI) Percussion: Yes normal to percussion Other: no femoral lines Urinary Catheter: Urinary Catheter: patent and draining and urine clear Objective Data Vital Signs Vital Signs: Vital Signs - 24 hr 02/06/20 14:00 02/06/20 15:23 02/06/20 16:00 Temperature 36.9 C Pulse Rate 56 L 84 Respiratory Rate 18 17 Blood Pressure 106/58 L 108/53 L Pulse Oximetry 95 96 97 02/06/20 17:29 02/06/20 18:00 02/06/20 20:00 Temperature 36.6 C Pulse Rate 57 L 56 L 53 L Respiratory Rate 16 19 Blood Pressure 107/54 L 114/50 L Pulse Oximetry 97 97 97 02/06/20 20:40 02/06/20 22:00 02/07/20 00:00 Temperature 37.0 C Pulse Rate 68 57 L 56 L Respiratory Rate 20 20 Blood Pressure 109/52 L 120/57 L Pulse Oximetry 97 97 97 02/07/20 00:16 02/07/20 02:00 02/07/20 02:43 Temperature Pulse Rate 57 L 50 L 59 L Respiratory Rate 20 Blood Pressure 105/53 L Pulse Oximetry 96 97 96 02/07/20 04:00 02/07/20 06:00 02/07/20 08:00 Temperature 36.6 C 36.7 C Pulse Rate 56 L 46 L 55 L Respiratory Rate 14 16 16 Blood Pressure 98/52 L 93/50 L 101/57 L Pulse Oximetry 98 98 98 02/07/20 08:18 02/07/20 10:00 Temperature Pulse Rate 57 L 64 Respiratory Rate 19 Blood Pressure 110/54 L Pulse Oximetry 98 95 Intake/Output Intake/Output: Intake & Output 02/04/20 02/05/20 02/06/20 02/07/20 23:59 23:59 23:59 23:59 Intake Total 1776.0 1496 1414 620 Output Total 1150 1050 1700 251 Balance 626.0 446 -286 369 Meds/Results Medications: Active Medications Generic Name Dose Route Start Last Admin Trade Name Freq PRN Reason Stop Dose Admin Albuterol 2.5 mg 01/28/20 13:00 01/31/20 19:48 Albuterol Sulfate Neb 2.5 Mg/0.5 Ml Inh INHALATION 2.5 mg Q4HRT PRN Administration Shortness Of Breath Dextrose 12.5 gm 01/28/20 13:10 Dextrose 50% 25 Gm/50 Ml Syringe IV PUSH PRN PRN Hypoglycemia Protocol Enoxaparin Sodium 40 mg 01/30/20 09:00 02/07/20 09:58 Enoxaparin 40 Mg/0.4 Ml Syringe SUB-Q 40 mg DAILY BRYCE Administration Famotidine 20 mg 02/05/20 21:00 02/07/20 09:58 Famotidine 20 Mg/2 Ml Vial IV PUSH 20 mg Q12HR BRYCE Administration Glucagon 1 mg 01/28/20 13:10 Glucagon For Inj 1 Mg Vial IM PRN PRN Hypoglycemia Protocol Glucose 15 gm 02/05/20 14:04 Glucose Oral Gel 15 Gm Of Glucse In 37.5 Gm Tube PO PRN PRN Hypoglycemia Protocol Dextrose 1,000 mls @ 100 mls/hr 01/28/20 13:10 Dextrose 5% 1,000 Ml IVPB PRN PRN Hypoglycemia Protocol Norepinephrine Bitartrate 8 mg in 250 mls @ 0 mls/hr 01/29/20 17:20 02/06/20 18:06 Levophed 8 Mg/D5w 250 Ml IV CONT Infused .Q0M [facility] Titration Protocol 0 MCG/MIN Levofloxac
--- NOTE | 2020-02-07 17:55 | WPDINTPN ---
Progress Note: A&P Assessment and Plan (1) Acute respiratory failure: Code(s): J96.00 - Acute respiratory failure, unspecified whether with hypoxia or hypercapnia Status: Acute Assessment and Plan: Acute Respiratory failure secondary to healthcare associated pneumonia versus COVID-19, ? questionable baseline COPD - patient was intubated on 01/28/2020 in the ER - chest x-ray and ABGs reviewed, patient seems to be doing better respiratory raines, but her mental status is preventing extubation. - Currently on AVAPS , peep of 5, 30% FiO2 ABG and PCXR reviewed. - She was initially on broad-spectrum antibiotics with cefepime and vancomycin. Now both has been stopped and currently on levofloxacin. Sputum culture grew stenotrophomonas which is sensitive to Levaquin. - continue Bronchodilators - PATIENT IS OFF ALL SEDATION > 96 hrs (2) Pneumonia: Code(s): J18.9 - Pneumonia, unspecified organism Status: Acute Assessment and Plan: SPUTUM CULTURES GROWING STENOTROPHOMONAS MALTOPHILIA: susceptible to Levaquin, - Continue on Levaquin ( initiated on 02/02/2020).- for for total of 7 days cefepime and vancomycin has been discontinued. - appreciate infectious disease evaluation recommendations (3) Sepsis: Code(s): A41.9 - Sepsis, unspecified organism Status: Acute Assessment and Plan: Sepsis secondary to healthcare associated pneumonia and UTI urine cultures growing Klebsiella. Sputum culture grew stenotrophonas. infectious disease service is following. currently on levofloxacin. blood cultures negative x2 lactic acid level has normalized now - off Levophed (4) Shock: Code(s): R57.9 - Shock, unspecified Status: Acute Assessment and Plan: shock with unclear etiology with septic versus secondary to sedation versus hypovolemia She has weaned off from Levophed. blood pressures are stable (5) COVID-19: Code(s): U07.1 - COVID-19 Status: Acute Assessment and Plan: SARS-CoV-2 PCR was positive at [facility]. date of testing is not available yet. will try to obtain records from [facility] Patient is in Airborne, Droplet and Contact Isolation dexamethasone started on 01/28 completed remdisivir which was started on 01/29. 1 unit of Convalscent plasma on 01/29 D-dimer, CRP, LDH trending down. Ferritin is normal, continue to monitor inflammatory marker (6) Acute hypernatremia: Code(s): E87.0 - Hyperosmolality and hypernatremia Status: Acute Assessment and Plan: Hypernatremia and hyperchloremia suggestive of intravascular volume depletion sodium levels improving and hypernatremia has resolved now. Continue free water flushes (7) Elevated transaminase level: Code(s): R74.01 - Elevation of levels of liver transaminase levels Status: Acute Assessment and Plan: improving. continue to monitor (8) JOSE ANGEL (acute kidney injury): Code(s): N17.9 - Acute kidney failure, unspecified Status: Resolved Assessment and Plan: JOSE ANGEL likely prerenal from sepsis and hypovolemia Acute kidney injury resolved now. US - Sonographically unremarkable kidneys. Monitor creatinine electrolytes and urine output (9) Encephalopathy acute: Code(s): G93.40 - Encephalopathy, unspecified Status: Acute Assessment and Plan: persists: likely toxic metabolic encephalopathy unchanged head CT from past - could be related to septic shock, hypernatremia, COVID-19 pneumonia She has been off sedatives the last 72+ hours and has not been waking up. She opens up eyes but not following command. She is not having any meaningful eye contact either. CT of the head was done 02/05/2020 which was found to be negative for any acute intracranial pathology. EEG has been ordered. appreciate Neurology evaluation (10) DM2 (diabetes mellitus, type 2): Code(s): E11.9 -
[2020-02-07 18:20] LABS: Glucose Point of Care 315 (65-105)
[2020-02-08] VITALS (23 sets, daily range): BP systolic 74–148; BP diastolic 50–78; PULSE 60–88; RESP 12–19; TEMP 36.6–38.1; O2SAT 95–98
[2020-02-08] MEDS: METOCLOPRAMIDE HCL INJ 10 MG/2 ML VIAL 5 MG IV PUSH ×5 (00:56→23:35)
[2020-02-08 01:42] LABS: Glucose Point of Care 183 (65-105)
[2020-02-08 05:33] LABS: Hematocrit 39.4 % (37.0-47.0); Hemoglobin 12.5 g/dL (12.0-15.0); Mean Corpuscular HGB Conc 31.7 g/dl (32-36); Mean Corpuscular Hemoglobin 26.2 pg (26-34); Mean Corpuscular Volume 82.4 fl (80-100); Mean Platelet Volume 11.6 fl (7.4-10.4); Platelet Count Result 314 k/mm3 (150-375); Red Blood Count 4.78 M/mm3 (4.2-5.4); Red Cell Distribution Width 17.5 % (11.5-14.5); White Blood Count 20.2 K/mm3 (4.5-10.0)
[2020-02-08 05:54] LABS: Alveolar/Arterial O2 Gradient 101.3 mmHg; Base Excess ABG 2.5 mEq/l (+/-2.0); Carboxyhemoglobin 0.1 % THb (0-2.0); Fractional Inspired Oxygen 30 %; HCO3 ABG 24.7 mEq/l (22.0-26.0); Methemoglobin ABG 0.2 %THb (0-1.5); Oxygen Content ABG 19.2 %vol (16.0-22.0); Oxygen Saturation ABG 96.4 % (95.0-100.0); Oxyhemoglobin 94.6 % THb (90.0-100.0); PCO2 ABG 31.4 mmHg (35.0-45.0); PO2 ABG 75.7 mmHg (80.0-100.0); PO2 FiO2 Ratio Arterial Blood 2.52 %; Reduced Hemoglobin 5.1 %THb (0-5.0); Total Hemoglobin 14.4 g/dL (12.0-18.0)
[2020-02-08 05:56] LABS: Device VENTILATOR; Modified Allen's Test Unable to perform; Site Drawn RIGHT RADIAL; pH ABG 7.514 (7.350-7.450)
[2020-02-08 05:57] LABS: Arterial Blood Gas PEEP 5 cmH2O; Arterial Blood Gas Tidal Volume 400 ml; Arterial Blood Gas Ventilator rate 14 /MIN
[2020-02-08] MEDS: CENTRAL LINE FLUSH 10 ML IV PUSH ×3 (06:05→20:16)
[2020-02-08 06:11] LABS: Alanine Aminotransferase 134 U/L (4-35); Albumin Level 3.2 g/dL (3.5-5.1); Alkaline Phosphatase 101 U/L (38-126); Anion Gap 7 mmol/L (8-16); Aspartate Amino Transferase 112 U/L (14-36); Bilirubin,Total 0.4 mg/dL (0.2-1.3); Blood Urea Nitrogen 52 mg/dL (7-17); Calcium 9.5 mg/dL (8.4-10.2); Carbon Dioxide 32 mmol/L (22-30); Chloride 100 mmol/L (98-107); Estimated CRCL calculation 31 ml/min; Estimated Glomerular Filt Rate 37; Glucose 105 mg/dL (65-105); Magnesium 2.3 mg/dL (1.6-2.3); Phosphorus 6.8 mg/dL (2.5-4.5); Potassium 4.5 mmol/L (3.4-5.0); Sodium 139 mmol/L (137-145)
[2020-02-08] MEDS: ENOXAPARIN 40 MG/0.4 ML SYRINGE SUB-Q (08:44)
[2020-02-08] MEDS: FAMOTIDINE 20 MG/2 ML VIAL IV PUSH ×2 (08:47→20:16)
[2020-02-08 08:51] LABS: Glucose Point of Care 93 (65-105)
[2020-02-08] MEDS: DEXTROSE 50% 25 GM/50 ML SYRINGE IV PUSH (12:43)
--- NOTE | 2020-02-08 12:58 | WPDINFPN2 ---
Progress Note: A&P Assessment and Plan (1) COVID-19: Code(s): U07.1 - COVID-19 Status: Acute Assessment and Plan: 1. Acute coronavirus infection with pneumonia. 2. Stenotrophomonas in sputum, I suspect colonizer rather than a bacterial superinfection complicating #1, but the latter remains possible 3. Multifactorial leukocytosis, worse today. CXR and exam do not suggest pulmonary complication of # 2 as a cause of her leukocytosis. REC Levofloxacin # 7 / 7 days, stop after today. Follow WBC at this time, no additional empiric antimicrobials, now that her dexamethasone has stopped. Subjective Date/time seen: 02/08/20 12:58 Interval history: on vent no pressors Exam Narrative: Exam Narrative: afebrile Const: General: no acute distress Resp: Effort & Inspection: normal respiratory effort Auscultation: clear to auscultation bilaterally and diminished lung sounds Cardio: Rate: regular rate Rhythm: regular rhythm Heart sounds: no murmurs GI: Inspection: non-distended GI Palp: Yes Soft to palpation and No Tenderness to palpation present (GI) Skin: General skin exam: normal color and no rashes or lesions noted Objective Data Vital Signs Vital Signs: Vital Signs - 24 hr 02/07/20 14:00 02/07/20 16:00 02/07/20 17:09 Temperature 37.3 C Pulse Rate 61 67 63 Respiratory Rate 17 18 Blood Pressure 143/62 H 151/67 H Pulse Oximetry 97 97 99 02/07/20 18:00 02/07/20 20:00 02/07/20 20:45 Temperature 37.3 C Pulse Rate 56 L 68 74 Respiratory Rate 16 20 Blood Pressure 118/55 L 130/75 Pulse Oximetry 98 98 97 02/07/20 22:00 02/07/20 23:33 02/08/20 00:00 Temperature 37.5 C Pulse Rate 70 64 68 Respiratory Rate 20 16 Blood Pressure 135/67 139/57 L Pulse Oximetry 98 98 97 02/08/20 02:00 02/08/20 02:33 02/08/20 04:00 Temperature 36.6 C Pulse Rate 73 68 64 Respiratory Rate 18 19 Blood Pressure 148/78 H 137/55 L Pulse Oximetry 98 97 97 02/08/20 05:05 02/08/20 06:00 02/08/20 08:00 Temperature 38.1 C H Pulse Rate 75 74 80 Respiratory Rate 15 16 Blood Pressure 119/58 L 118/59 L Pulse Oximetry 96 97 98 02/08/20 08:25 02/08/20 10:00 02/08/20 10:54 Temperature Pulse Rate 80 78 68 Respiratory Rate 19 Blood Pressure 112/50 L Pulse Oximetry 98 96 97 02/08/20 12:00 02/08/20 12:52 Temperature 37.1 C 37.1 C Pulse Rate 63 65 Respiratory Rate 16 Blood Pressure 122/60 Pulse Oximetry 95 Intake/Output Intake/Output: Intake & Output 02/05/20 02/06/20 02/07/20 02/08/20 23:59 23:59 23:59 23:59 Intake Total 1496 1414 1822 570 Output Total 1050 1700 901 450 Balance 446 -286 921 120 Meds/Results Medications: Active Medications Generic Name Dose Route Start Last Admin Trade Name Freq PRN Reason Stop Dose Admin Acetaminophen 650 mg 02/08/20 11:26 Acetaminophen Elixir 325 Mg/10.15 Ml Udc PO Q6H PRN Mild Pain (1-3) or Fever Albuterol 2.5 mg 01/28/20 13:00 01/31/20 19:48 Albuterol Sulfate Neb 2.5 Mg/0.5 Ml Inh INHALATION 2.5 mg Q4HRT PRN Administration Shortness Of Breath Dextrose 12.5 gm 01/28/20 13:10 02/08/20 12:43 Dextrose 50% 25 Gm/50 Ml Syringe IV PUSH 12.5 gm PRN PRN Administration Hypoglycemia Protocol Enoxaparin Sodium 40 mg 01/30/20 09:00 02/08/20 08:44 Enoxaparin 40 Mg/0.4 Ml Syringe SUB-Q 40 mg DAILY BRYCE Administration Famotidine 20 mg 02/05/20 21:00 02/08/20 08:47 Famotidine 20 Mg/2 Ml Vial IV PUSH 20 mg Q12HR BRYCE Administration Glucagon 1 mg 01/28/20 13:10 Glucagon For Inj 1 Mg Vial IM PRN PRN Hypoglycemia Protocol Glucose 15 gm 02/05/20 14:04 Glucose Oral Gel 15 Gm Of Glucse In 37.5 Gm Tube PO PRN PRN Hypoglycemia Protocol Dextrose 1,000 mls @ 100 mls/hr 01/28/20 13:10 Dextrose 5% 1,000 Ml IVPB PRN PRN Hypoglycemia Protocol Norepinephrine Bitartrate 8 mg in 250 mls @ 0 mls/hr 01/29/20 17:20
--- NOTE | 2020-02-08 13:01 | PCDIET ---
Nutrition Follow-Up Complete: Nutrition Diagnosis: Inadequate oral intake related to oral intubation as evidenced by need for tube feeding. Nutrition Goal: Patient to meet estimated nutritional needs. Goal not met. Tube feedings held for vomiting overnight. KUB ordered. If unable to resume tube feedings, may need to consider parenteral nutrition. Will follow closely and provide additional recommendations, as needed. Last recorded weight is 72.4 kg which is increased from last review. I/O slightly positive. Bowel Motility: BM x 2 on 02/06/20. Labs Reviewed: WBC (20.2), BUN (54), Cr (1.4), Alb (3.2), PO4 (6.8) Meds Noted: Albuterol, Pepcid, Novolog, Levemir, Atrovent, Levaquin, Reglan, Levophed Additional Notes: Buttocks macerated. Will continue to monitor with same goal. Nutrition Monitoring and Evaluation: Follow up every Friday/Friday. Follow daily in ICU rounds.
--- NOTE | 2020-02-08 13:30 | P.PNINT_ITS ---
Progress Note: A&P Assessment and Plan (1) Acute respiratory failure: Assessment and Plan: Acute respiratory failure secondary to healthcare associated pneumonia vs COVID, questionable underlying COPD. * Intubated in the emergency department on 01/28/2020. * Currently on CMV mode with a PEEP of 5 and FiO2 of 30%. * ABG and chest x-ray reviewed. Chest x-ray on 02/07 showed stable diffuse interstitial pattern in the lungs, consistent with atypical pneumonia versus mild pulmonary edema. * She has been off sedation for several days but remains encephalopathic. <Nandini Parra PA-C - Last Filed: 02/08/20 15:03> (2) Pneumonia: Assessment and Plan: * Sputum culture growing stenotrophomonas maltophilia, susceptible to levofloxacin. * Dr. Narayan (Infectious Disease) was consulted and his input is appreciated. He suspects this is a colonizer rather than bacterial superinfection although it remains possible. Leukocytosis worse today but chest x-ray and exam do not suggest a pulmonary complication. Recommends finishing levofloxacin (day 7 of 7) and no additional empiric antimicrobials. Follow WBC count now that her dexamethasone has been discontinued. <Nandini Parra PA-C - Last Filed: 02/08/20 15:03> (3) COVID-19: Assessment and Plan: * SARS-CoV-2 PCR was reportedly positive at her custodial, the date of testing not available. * Continue airborne, contact, and droplet isolation. * Dexamethasone, 10 day course start 01/28. * Remdesivir started 01/29 once her renal function improved and was completed. * Received 1 unit convalescent plasma on 01/29. <Nandini Parra PA-C - Last Filed: 02/08/20 15:03> (4) Sepsis: Assessment and Plan: * Secondary to healthcare associated pneumonia and urinary tract infection. * Cefepime and vancomycin discontinued, Levaquin 7 days completed on 02/08/2020. * Sputum culture growing stenotrophomonas maltophilia. * Urine culture growing Klebsiella pneumonia. * Lactic acid has normalized. <Nandini Parra PA-C - Last Filed: 02/08/20 15:03> (5) Shock: Assessment and Plan: * Secondary to sepsis versus sedation, as her lactic acid level is within normal limits. * She has received a good amount of fluids thus will continue to hold further IV fluids. * Versed and fentanyl off for days and she remains encephalopathic. * Blood cultures negative x2. * Now off of Levophed. <Nandini Parra PA-C - Last Filed: 02/08/20 15:03> (6) Acute hypernatremia: Assessment and Plan: * Resolved, continue free water flushes as ordered. <Nandini Parra PA-C - Last Filed: 02/08/20 15:03> (7) Elevated transaminase level: Assessment and Plan: * LFTs beginning to creep up again, etiology of which is not entirely clear. * At this time will continue to trend and consider right upper quadrant ultrasound (her white blood cell count has increased and she developed a low- grade fever last evening, abdominal exam benign). <Nandini Parra PA-C - Last Filed: 02/08/20 15:03> (8) Encephalopathy acute: Assessment and Plan: * Most likely toxic metabolic encephalopathy, initially attributed to a combination of acute kidn
--- NOTE | 2020-02-08 13:30 | WPDINTPN ---
Progress Note: A&P Assessment and Plan (1) Acute respiratory failure: Assessment and Plan: Acute respiratory failure secondary to healthcare associated pneumonia vs COVID, questionable underlying COPD. Intubated in the emergency department on 01/28/2020. Currently on CMV mode with a PEEP of 5 and FiO2 of 30%. ABG and chest x-ray reviewed. Chest x-ray on 02/07 showed stable diffuse interstitial pattern in the lungs, consistent with atypical pneumonia versus mild pulmonary edema. She has been off sedation for several days but remains encephalopathic. <Nandini Parra PA-C - Last Filed: 02/08/20 15:03> (2) Pneumonia: Assessment and Plan: Sputum culture growing stenotrophomonas maltophilia, susceptible to levofloxacin. Dr. Narayan (Infectious Disease) was consulted and his input is appreciated. He suspects this is a colonizer rather than bacterial superinfection although it remains possible. Leukocytosis worse today but chest x-ray and exam do not suggest a pulmonary complication. Recommends finishing levofloxacin (day 7 of 7) and no additional empiric antimicrobials. Follow WBC count now that her dexamethasone has been discontinued. <Nandini Parra PA-C - Last Filed: 02/08/20 15:03> (3) COVID-19: Assessment and Plan: SARS-CoV-2 PCR was reportedly positive at her correction, the date of testing not available. Continue airborne, contact, and droplet isolation. Dexamethasone, 10 day course start 01/28. Remdesivir started 01/29 once her renal function improved and was completed. Received 1 unit convalescent plasma on 01/29. <Nandini Parra PA-C - Last Filed: 02/08/20 15:03> (4) Sepsis: Assessment and Plan: Secondary to healthcare associated pneumonia and urinary tract infection. Cefepime and vancomycin discontinued, Levaquin 7 days completed on 02/08/2020. Sputum culture growing stenotrophomonas maltophilia. Urine culture growing Klebsiella pneumonia. Lactic acid has normalized. <Nandini Parra PA-C - Last Filed: 02/08/20 15:03> (5) Shock: Assessment and Plan: Secondary to sepsis versus sedation, as her lactic acid level is within normal limits. She has received a good amount of fluids thus will continue to hold further IV fluids. Versed and fentanyl off for days and she remains encephalopathic. Blood cultures negative x2. Now off of Levophed. <Nandini Parra PA-C - Last Filed: 02/08/20 15:03> (6) Acute hypernatremia: Assessment and Plan: Resolved, continue free water flushes as ordered. <Nandini Parra PA-C - Last Filed: 02/08/20 15:03> (7) Elevated transaminase level: Assessment and Plan: LFTs beginning to creep up again, etiology of which is not entirely clear. At this time will continue to trend and consider right upper quadrant ultrasound (her white blood cell count has increased and she developed a low-grade fever last evening, abdominal exam benign). <Nandini Parra PA-C - Last Filed: 02/08/20 15:03> (8) Encephalopathy acute: Assessment and Plan: Most likely toxic metabolic encephalopathy, initially attributed to a combination of acute kidney injury, hypernatremia, shock, and pneumonia however her sedation has been off for several days and she remains encephalopathic. Brain CT on 02/05/2020 remains unchanged from previous imaging. EEG has been obtained and is pending. Neurology consulted. <Nandini Parra PA-C - Last Filed: 02/08/20 15:03> (9) DM2 (diabetes mellit
[2020-02-08 13:38] LABS: Glucose Point of Care 63 (65-105)
[2020-02-08 13:38] LABS: Glucose Point of Care 161 (65-105)
[2020-02-08] MEDS: ASCORBIC ACID 500 MG TABLET PO (17:11)
[2020-02-08] MEDS: CHOLECALCIFEROL 1,000 UNITS TABLET 1000 UNITS PO (17:12)
[2020-02-08] MEDS: ZINC SULFATE 220 MG CAPSULE PO (17:12)
--- NOTE | 2020-02-08 17:22 | PM.IMPN ---
Progress Note: A&P Assessment and Plan (1) Acute respiratory failure: Code(s): J96.00 - Acute respiratory failure, unspecified whether with hypoxia or hypercapnia Status: Acute Assessment and Plan: Acute respiratory failure secondary to healthcare associated pneumonia vs COVID, questionable underlying COPD. - Intubated in the emergency department on 01/28/2020. (2) Sepsis: Code(s): A41.9 - Sepsis, unspecified organism Status: Acute Assessment and Plan: Secondary to sepsis versus sedation, as her lactic acid level is within normal limits. - She has received a good amount of fluids thus will continue to hold further IV fluids. - Versed and fentanyl off for about 36 hours. - Continue to wean Levophed to a MAP of greater than 65 mmHg (average Levophed requirement around 1mcg). - Blood cultures negative x2. (3) DM2 (diabetes mellitus, type 2): Code(s): E11.9 - Type 2 diabetes mellitus without complications Status: Chronic (4) Pneumonia: Code(s): J18.9 - Pneumonia, unspecified organism Status: Acute Assessment and Plan: Sputum culture growing stenotrophomonas maltophilia, susceptible to levofloxacin. - Dr. Narayan (Infectious Disease) was consulted and his input is appreciated. He suspects this may be a colonizer however cannot rule out bacterial superinfection and suggests a 7 day course of levofloxacin. He also recommends completing a 10 day course of dexamethasone. - Continue Levaquin, started 02/01 (day 3/7). Cefepime and vancomycin discontinued 02/01. (5) COVID-19: Code(s): U07.1 - COVID-19 Status: Acute Assessment and Plan: SARS-CoV-2 PCR was reportedly positive at her skilled nursing, the date of testing not available. - Continue airborne, contact, and droplet isolation. - Dexamethasone started 01/28. - Remdesivir started 01/29 once her renal function improved and was completed - Received 1 unit convalescent plasma on 01/29. Subjective Date/time seen: 02/08/20 17:22 Interval history: Healthcare associated pneumonia versus covid 19. Patient was placed in ICU . she is intubated placed on a ventilator. She is listed as a full code. Ventilator settings per scrap preparer. Patient is on vancomycin cefepime and azithromycin for the possibility healthcare associated pneumonia. She is also placed on Decadron due to the COVID-19. No antiviral at this time. Due to the acute renal failure and elevated liver enzymes. 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 department with respiratory distress and emergency department patient was intubated as patient was quite hypoxic, and transferred to ICU, suspect patient may have healthcare associated pneumonia as patient was recently discharged from the hospital as well as patient is positive COVID-19, has sepsis most likely secondary to healthcare associated pneumonia patient is being treated with Broad-spectrum antibiotics vancomycin cefepime, urine culture is growing Klebsiella pneumonia sensitive to cefepime, patient was started on tube feeding, patient still on pressors, patient blood sugar were elevated patient was started on IV insulin infusion to bring the blood sugar under control though patient was not in DKA, on 02/01 patient was given trial weaning off the vent however patient became quite tachypneic and hypoxic, patient was sedated and vent was resumed. Patient sputum culture grew Stenotrophomonas was seen by Dr. Narayan suspect most likely colonization rather than true infection recommend continue levaquin /, recommended complete the 9/10 days course of dexamethasone patient inflammatory markers are trending down, will continue monitor and appreciate scrap preparer, patient is off insulin drip now on long-acting Lantus 44 units b.i.d. will continue to monitor with sliding scale. Pt remains on a ventilator today, continue care, pt had low grade fever, [place]
[2020-02-08 17:31] LABS: Glucose Point of Care 77 (65-105)
[2020-02-08] MEDS: INSULIN DETEMIR 100 UNITS/ML 50 UNITS SUB-Q (20:17)
--- NOTE | 2020-02-08 22:15 | PM.EVENT ---
Event Note Event Note Event Note: Received a call from the patient's nurse at approximately 22:15. The patient's blood pressures have been trending downward. Chart reviewed, and it looks like she has been off Levophed for about 24 hours. Creatinine did increase today although she has had adequate urine output. Will try a small fluid bolus as she may be a bit dry, however we have been avoiding IV fluids as she was more than adequately hydrated on admission on 01/28/2020 with the development of upper extremity edema and mild pulmonary edema. May need to restart Levophed, right upper extremity PICC line is in place. She remains afebrile. <Nandini Parra PA-C - Last Filed: 02/08/20 22:50> I have seen and evaluated the patient and discussed the care with CLAUDIO Stafford. I agree with the findings and plan as documented the note above <Bereket Owusu MD - Last Filed: 03/21/20 14:27>
[2020-02-08] MEDS: LACTATED RINGERS 500 ML 100 ML IV CONT (22:42)
[2020-02-09] VITALS (22 sets, daily range): BP systolic 78–135; BP diastolic 42–73; PULSE 51–88; RESP 12–22; TEMP 36.2–37.2; O2SAT 93–99
[2020-02-09 00:47] LABS: Glucose Point of Care 102 (65-105)
[2020-02-09] MEDS: NOREPINEPHRINE 8 MG/D5W 250 ML 8 MG/250 ML BAG 9.38 MG IV CONT (02:33)
[2020-02-09 05:22] LABS: Alveolar/Arterial O2 Gradient 90.4 mmHg; Carboxyhemoglobin 0.2 % THb (0-2.0); Fractional Inspired Oxygen 30 %; HCO3 ABG 24.9 mEq/l (22.0-26.0); Methemoglobin ABG 0.2 %THb (0-1.5); Oxygen Content ABG 17.4 %vol (16.0-22.0); Oxygen Saturation ABG 97.1 % (95.0-100.0); PCO2 ABG 33.5 mmHg (35.0-45.0); PO2 ABG 84.1 mmHg (80.0-100.0); Reduced Hemoglobin 4.6 %THb (0-5.0); pH ABG 7.489 (7.350-7.450)
[2020-02-09 05:23] LABS: Arterial Blood Gas Ventilator rate 14 /MIN; Device VENTILATOR; Modified Allen's Test Unable to perform; Site Drawn LEFT RADIAL
[2020-02-09 05:24] LABS: Arterial Blood Gas PEEP 5 cmH2O; Arterial Blood Gas Tidal Volume 350 ml
[2020-02-09 05:30] LABS: Glucose Point of Care 108 (65-105)
[2020-02-09] MEDS: CENTRAL LINE FLUSH 10 ML IV PUSH ×3 (05:33→22:04)
[2020-02-09] MEDS: METOCLOPRAMIDE HCL INJ 10 MG/2 ML VIAL 5 MG IV PUSH ×3 (05:33→18:00)
[2020-02-09 05:37] LABS: Hematocrit 35.5 % (37.0-47.0); Hemoglobin 11.1 g/dL (12.0-15.0); Mean Corpuscular HGB Conc 31.3 g/dl (32-36); Mean Corpuscular Hemoglobin 26.2 pg (26-34); Mean Corpuscular Volume 83.7 fl (80-100); Platelet Count Result 366 k/mm3 (150-375); Red Blood Count 4.24 M/mm3 (4.2-5.4); Red Cell Distribution Width 17.6 % (11.5-14.5); White Blood Count 21.3 K/mm3 (4.5-10.0)
[2020-02-09 05:49] LABS: D Dimer 0.68 ug/mL (<0.48)
[2020-02-09 06:00] LABS: Alanine Aminotransferase 134 U/L (4-35); Albumin Level 2.8 g/dL (3.5-5.1); Alkaline Phosphatase 89 U/L (38-126); Anion Gap 5 mmol/L (8-16); Aspartate Amino Transferase 125 U/L (14-36); Bilirubin,Total 0.5 mg/dL (0.2-1.3); Blood Urea Nitrogen 43 mg/dL (7-17); CRP 5.3 mg/dL (<1.0); Calcium 8.7 mg/dL (8.4-10.2); Carbon Dioxide 32 mmol/L (22-30); Chloride 103 mmol/L (98-107); Estimated CRCL calculation 39 ml/min; Estimated Glomerular Filt Rate 49; Glucose 111 mg/dL (65-105); Lactate Dehydrogenase 786 U/L (313-618); Magnesium 2.1 mg/dL (1.6-2.3); Phosphorus 5.2 mg/dL (2.5-4.5); Potassium 3.5 mmol/L (3.4-5.0); Sodium 140 mmol/L (137-145)
[2020-02-09] MEDS: ENOXAPARIN 40 MG/0.4 ML SYRINGE SUB-Q (08:08)
[2020-02-09] MEDS: FAMOTIDINE 20 MG/2 ML VIAL IV PUSH ×2 (08:08→22:03)
[2020-02-09] MEDS: ZINC SULFATE 220 MG CAPSULE PO (08:08)
[2020-02-09] MEDS: CHOLECALCIFEROL 1,000 UNITS TABLET 1000 UNITS PO (08:08)
[2020-02-09] MEDS: ASCORBIC ACID 500 MG TABLET PO (08:08)
--- NOTE | 2020-02-09 09:46 | P.NEURO_ITS ---
Neurology EEG Report General Information Date of Study: 02/08/20 TEST eeg DIAGNOSIS altered mental status CONDITION OF RECORDING comatose patient on vent but has not been on any sedation for over 48 hours EEG NUMBER [id number] CLINICAL HISTORY comatose patient on vent but has not been on any sedation for over 48 hours EEG DESCRIPTION medium to high-voltage 5 to 7 hertz per second theta activity seen over the right hemispheric linkages in addition to 3 to 4 hertz per second low to medium voltage delta activity over the left hemispheric linkages, during sleep bilaterally symmetrical 6 to 7 hertz per second theta activity seen. non paroxy smal. focal and lateralizing IMPRESSION abnormal record due to the presence of bihemispheric theta and delta activity these abnormalities could be suggestive of underlying organic or metabolic encephalopathy with focal insult. there is no evidence of any paroxysmal discharge. clinical correlation recommended
[2020-02-09] MEDS: INSULIN DETEMIR 100 UNITS/ML 50 UNITS SUB-Q (09:48)
--- NOTE | 2020-02-09 10:41 | WPDINTPN ---
Progress Note: A&P Assessment and Plan (1) Acute respiratory failure: Code(s): J96.00 - Acute respiratory failure, unspecified whether with hypoxia or hypercapnia <Na A. Cadmus, PA-C - Last Filed: 02/09/20 11:28> Status: Acute <Na A. Cadmus, PA-C - Last Filed: 02/09/20 11:28> Assessment and Plan: Acute respiratory failure secondary to healthcare associated pneumonia vs COVID, questionable underlying COPD. -COVID + outpt - Intubated in the emergency department on 01/28/2020. -Ventilated, no sedation -CXR 02/08 shows stable diffuse lung disease consistent with atypical PNA vs mild pulmonary edema <Na A. Cadmus, PA-C - Last Filed: 02/09/20 11:28> (2) Encephalopathy acute: Code(s): G93.40 - Encephalopathy, unspecified <Na A. Cadmus, PA-C - Last Filed: 02/09/20 11:28> Status: Acute <Na A. Cadmus, PA-C - Last Filed: 02/09/20 11:28> Assessment and Plan: Unclear etiology at this time -could be due to COVID-19 complications -head CT 02/04 negative for acute pathology -EEG pending, appreciate neurology's recommendations -will order TSH, ammonia, repeat blood cultures since she did have a fever yesterday <Na A. Cadmus, PA-C - Last Filed: 02/09/20 11:28> (3) Sepsis: Code(s): A41.9 - Sepsis, unspecified organism <Na A. Cadmus, PA-C - Last Filed: 02/09/20 11:28> Status: Acute <Na A. Cadmus, PA-C - Last Filed: 02/09/20 11:28> Assessment and Plan: Secondary to COVID/PNA - Back on Levophed -ventilated without sedation -fever 02/07 with increasing white count 21.3 -initial blood cultures negative -sputum sample growing stenotrophomonas, Levaquin ordered -appreciate infectious disease recommendations . <Na A. Cadmus, PA-C - Last Filed: 02/09/20 11:28> (4) DM2 (diabetes mellitus, type 2): Code(s): E11.9 - Type 2 diabetes mellitus without complications <CLAUDIO DanielsonCameronLisy - Last Filed: 02/09/20 11:28> Status: Chronic <Na Del Rosario PA-C - Last Filed: 02/09/20 11:28> Assessment and Plan: Last glucose 111 but has been elevated up to 400+ while on steroids -A1c 01/28 10.9, uncontrolled -worse with Decadron, now discontinued -continue Levemir <CLAUDIO DanielsonElier - Last Filed: 02/09/20 11:28> (5) Pneumonia: Code(s): J18.9 - Pneumonia, unspecified organism <CLAUDIO DanielsonCameronLisy - Last Filed: 02/09/20 11:28> Status: Acute <Na Del Rosario CLAUDIOCameronLisy - Last Filed: 02/09/20 11:28> Assessment and Plan: Sputum culture growing stenotrophomonas maltophilia, susceptible to levofloxacin. - Dr. Narayan (Infectious Disease) was consulted and his input is appreciated. He suspects this may be a colonizer however cannot rule out bacterial superinfection and suggests a 7 day course of levofloxacin. He also recommends completing a 10 day course of dexamethasone which is now complete. - Levoquin started 02/01, Cefepime and vancomycin discontinued 02/01. -WBC worsening <Na Del Rosario CLAUDIOCameronLisy - Last Filed: 02/09/20 11:28> (6) COVID-19: Code(s): U07.1 - COVID-19 <Na Del Rosario CLAUDIOElier - Last Filed: 02/09/20 11:28> Status: Acute <Na Del Rosario CLAUDIOCameronLisy - Last Filed: 02/09/20 11:28> Assessment and Plan: SARS-CoV-2 PCR was reportedly positive at her long term, the date of testing not available. - Continue airborne, contact, and droplet isolation. - Dexamethasone completed 02/06 - Remdesivir started 01/29 once her renal function improved and was completed - Received 1 unit convalescent plasma on 01/29. <Na MoiseYOSI gibson - Last Filed: 02/09/20 11:28> (7) Shock: Code(s): R57.9 - Shock, unspecified <Na Del Rosario PA-C - Last Filed: 02/09/20 11:28> Status: Acute <Na Del Rosario PA-C - Last Filed: 02/09/20 11:28> Assessment and Plan:
--- NOTE | 2020-02-09 11:13 | PCDIET ---
ICU Rounding Note: Patient tolerating Glucerna 1.2 at 50mL/hr goal rate. No issues reported. Last recorded weight is 74.1kg which is increased from last review. I/O slightly negative. Bowel Motility: Last documented BM on 02/06/20 x 2. Labs Reviewed: WBC (21.3), BUN (43), Cr (1.1), Alb (2.8), PO4 (5.2) Meds Noted: Albuterol, Vitamin C, Pepcid, Novolog, Levemir, Atrovent, Levaquin, Reglan, Levophed, Vitamin D, Zinc Sulfate Additional Notes: Bilateral buttocks macerated. Following daily in ICU rounds. Assessing/reassessing every Friday/Friday.
[2020-02-09 13:31] LABS: Glucose Point of Care 142 (65-105)
--- NOTE | 2020-02-09 14:05 | WPDINFPN2 ---
Progress Note: A&P Assessment and Plan (1) COVID-19: Code(s): U07.1 - COVID-19 Status: Acute Assessment and Plan: 1. Acute coronavirus infection with pneumonia. 2. Stenotrophomonas in sputum, I suspect colonizer rather than a bacterial superinfection complicating #1, but the latter remains possible 3. Multifactorial leukocytosis, worse today. Also with hypotension REC Off Levofloxacin (7 days). Redo BCs. Follow WBC at this time, no additional empiric antimicrobials. Subjective Date/time seen: 02/09/20 14:05 Interval history: no sedation. Opens eyes. Norepi 11 mcg Exam Narrative: Exam Narrative: afebrile since last visit Const: General: no acute distress Resp: Effort & Inspection: normal respiratory effort Auscultation: clear to auscultation bilaterally Cardio: Rate: regular rate Rhythm: regular rhythm Heart sounds: no murmurs GI: Inspection: non-distended GI Palp: Yes Soft to palpation, No Tenderness to palpation present (GI) and No Guarding due to palpation present (GI) Urinary Catheter: Urinary Catheter: patent and draining and urine clear Objective Data Vital Signs Vital Signs: Vital Signs - 24 hr 02/08/20 15:31 02/08/20 16:00 02/08/20 17:02 Temperature 37.1 C Pulse Rate 78 69 72 Respiratory Rate 18 Blood Pressure 135/60 Pulse Oximetry 98 98 98 02/08/20 17:29 02/08/20 18:00 02/08/20 18:30 Temperature Pulse Rate 70 74 70 Respiratory Rate 16 14 Blood Pressure 108/56 L Pulse Oximetry 97 98 02/08/20 20:00 02/08/20 20:02 02/08/20 22:00 Temperature 36.7 C Pulse Rate 88 71 60 Respiratory Rate 16 12 Blood Pressure 93/50 L 74/50 L Pulse Oximetry 97 98 97 02/08/20 23:01 02/09/20 00:00 02/09/20 01:31 Temperature 36.6 C Pulse Rate 72 68 56 L Respiratory Rate 12 Blood Pressure 120/53 L Pulse Oximetry 98 93 99 02/09/20 02:00 02/09/20 02:33 02/09/20 04:00 Temperature 37.2 C Pulse Rate 60 55 L 52 L Respiratory Rate 16 14 Blood Pressure 120/73 78/42 L 92/42 L Pulse Oximetry 98 95 02/09/20 05:08 02/09/20 06:00 02/09/20 08:00 Temperature 36.5 C Pulse Rate 55 L 63 79 Respiratory Rate 18 18 Blood Pressure 95/52 L 113/45 L Pulse Oximetry 99 99 99 02/09/20 08:40 02/09/20 10:00 02/09/20 11:45 Temperature 36.8 C Pulse Rate 57 L 51 L 58 L Respiratory Rate 19 Blood Pressure 119/46 L Pulse Oximetry 98 99 98 02/09/20 12:00 02/09/20 14:00 Temperature 36.2 C L Pulse Rate 60 62 Respiratory Rate 20 16 Blood Pressure 108/45 L 93/54 L Pulse Oximetry 99 99 Intake/Output Intake/Output: Intake & Output 02/06/20 02/07/20 02/08/20 02/09/20 23:59 23:59 23:59 23:59 Intake Total 1414 4432 526 9577 Output Total 0117 076 2529 1999 Balance -286 083 -805 -941 Meds/Results Medications: Active Medications Generic Name Dose Route Start Last Admin Trade Name Freq PRN Reason Stop Dose Admin Acetaminophen 650 mg 02/08/20 11:26 Acetaminophen Elixir 325 Mg/10.15 Ml Udc PO Q6H PRN Mild Pain (1-3) or Fever Albuterol 2.5 mg 01/28/20 13:00 01/31/20 19:48 Albuterol Sulfate Neb 2.5 Mg/0.5 Ml Inh INHALATION 2.5 mg Q4HRT PRN Administration Shortness Of Breath Ascorbic Acid 500 mg 02/08/20 09:00 02/09/20 08:08 Ascorbic Acid 500 Mg Tablet PO 500 mg DAILY BRYCE Administration Dextrose 12.5 gm 01/28/20 13:10 02/08/20 12:43 Dextrose 50% 25 Gm/50 Ml Syringe IV PUSH 12.5 gm PRN PRN Administration Hypoglycemia Protocol Enoxaparin Sodium 40 mg 01/30/20 09:00 02/09/20 08:08 Enoxaparin 40 Mg/0.4 Ml Syringe SUB-Q 40 mg DAILY BRYCE Administration Famotidine 20 mg 02/05/20 21:00 02/09/20 08:08 Famotidine 20 Mg/2 Ml Vial IV PUSH 20 mg Q12HR BRYCE Administration Glucagon 1 mg 01/28/20 13:10 Glucagon For Inj 1 Mg Vial IM PRN PRN Hypoglycemia Protocol Glucose 15 gm 02/05/20 14:04 Glucose Oral Gel 15 Gm Of Glucse In 37.5 Gm Tube PO
--- NOTE | 2020-02-09 16:54 | PM.IMPN ---
Progress Note: A&P Assessment and Plan (1) Acute respiratory failure: Code(s): J96.00 - Acute respiratory failure, unspecified whether with hypoxia or hypercapnia Status: Acute Assessment and Plan: Acute respiratory failure secondary to healthcare associated pneumonia vs COVID, questionable underlying COPD. - Intubated in the emergency department on 01/28/2020. (2) Sepsis: Code(s): A41.9 - Sepsis, unspecified organism Status: Acute Assessment and Plan: Sputum cultures are positive ongoing fevers ongoing encephalopathy COVID positive - Blood cultures negative x2. EEG ordered, CT head ordered little response despite sedation stopping. (3) DM2 (diabetes mellitus, type 2): Code(s): E11.9 - Type 2 diabetes mellitus without complications Status: Chronic Assessment and Plan: on levemir (4) Pneumonia: Code(s): J18.9 - Pneumonia, unspecified organism Status: Acute Assessment and Plan: Sputum culture growing stenotrophomonas maltophilia, susceptible to levofloxacin. - Dr. Narayan (Infectious Disease) was consulted and his input is appreciated. He suspects this may be a colonizer however cannot rule out bacterial superinfection and suggests a 7 day course of levofloxacin. He also recommends completing a 10 day course of dexamethasone. - Continue Levaquin, started 02/01 (day 3/7). Cefepime and vancomycin discontinued 02/01. (5) COVID-19: Code(s): U07.1 - COVID-19 Status: Acute Assessment and Plan: SARS-CoV-2 PCR was reportedly positive at her [facility] living, the date of testing not available. - Continue airborne, contact, and droplet isolation. - Dexamethasone started 01/28. - Remdesivir started 01/29 once her renal function improved and was completed - Received 1 unit convalescent plasma on 01/29. Subjective Date/time seen: 02/09/20 16:54 Interval history: Healthcare associated pneumonia versus covid 19. Patient was placed in ICU . she is intubated placed on a ventilator. She is listed as a full code. Ventilator settings per synchronous motor assembler. Patient is on vancomycin cefepime and azithromycin for the possibility healthcare associated pneumonia. She is also placed on Decadron due to the COVID-19. No antiviral at this time. Due to the acute renal failure and elevated liver enzymes. 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 department with respiratory distress and emergency department patient was intubated as patient was quite hypoxic, and transferred to ICU, suspect patient may have healthcare associated pneumonia as patient was recently discharged from the hospital as well as patient is positive COVID-19, has sepsis most likely secondary to healthcare associated pneumonia patient is being treated with Broad-spectrum antibiotics vancomycin cefepime, urine culture is growing Klebsiella pneumonia sensitive to cefepime, patient was started on tube feeding, patient still on pressors, patient blood sugar were elevated patient was started on IV insulin infusion to bring the blood sugar under control though patient was not in DKA, on 02/01 patient was given trial weaning off the vent however patient became quite tachypneic and hypoxic, patient was sedated and vent was resumed. Patient sputum culture grew Stenotrophomonas was seen by Dr. Narayan suspect most likely colonization rather than true infection recommend continue levaquin 5/, recommended complete the 9/10 days course of dexamethasone patient inflammatory markers are trending down, will continue monitor and appreciate synchronous motor assembler, patient is off insulin drip now on levemir Pt remains on a ventilator, little responsive despite being off sedation, EEG shows metabolic encehalopathy likely secondary to COVID 19. BP is low [place] [id number] increasing. Sputum positive for Strenophonoas was treated with levaquin. Review o
[2020-02-09 18:40] LABS: Ammonia < 9 umol/L (9-30)
[2020-02-09 19:10] LABS: Glucose Point of Care 168 (65-105)
[2020-02-09] MEDS: INSULIN DETEMIR 100 UNITS/ML 35 UNITS SUB-Q (22:02)
[2020-02-09 22:25] LABS: Glucose Point of Care 146 (65-105)
[2020-02-10] VITALS (21 sets, daily range): BP systolic 100–118; BP diastolic 40–68; PULSE 62–79; RESP 16–23; TEMP 36.4–37; O2SAT 95–99
[2020-02-10] MEDS: METOCLOPRAMIDE HCL INJ 10 MG/2 ML VIAL 5 MG IV PUSH ×4 (00:33→17:25)
[2020-02-10 00:47] LABS: Glucose Point of Care 115 (65-105)
[2020-02-10] MEDS: NOREPINEPHRINE 8 MG/D5W 250 ML 8 MG/250 ML BAG 5.63 MG IV CONT (02:50)
[2020-02-10 05:29] LABS: Hematocrit 29.8 % (37.0-47.0); Hemoglobin 9.2 g/dL (12.0-15.0); Mean Corpuscular HGB Conc 30.9 g/dl (32-36); Mean Corpuscular Hemoglobin 25.7 pg (26-34); Mean Corpuscular Volume 83.2 fl (80-100); Mean Platelet Volume 11.6 fl (7.4-10.4); Platelet Count Result 198 k/mm3 (150-375); Red Blood Count 3.58 M/mm3 (4.2-5.4); Red Cell Distribution Width 17.2 % (11.5-14.5); White Blood Count 13.1 K/mm3 (4.5-10.0)
[2020-02-10 05:58] LABS: Alanine Aminotransferase 82 U/L (4-35); Albumin Level 2.5 g/dL (3.5-5.1); Alkaline Phosphatase 91 U/L (38-126); Anion Gap 3 mmol/L (8-16); Aspartate Amino Transferase 57 U/L (14-36); Bilirubin,Total 0.4 mg/dL (0.2-1.3); Blood Urea Nitrogen 28 mg/dL (7-17); Calcium 8.5 mg/dL (8.4-10.2); Carbon Dioxide 34 mmol/L (22-30); Chloride 101 mmol/L (98-107); Estimated CRCL calculation 53 ml/min; Estimated Glomerular Filt Rate > 60; Glucose 148 mg/dL (65-105); Magnesium 1.8 mg/dL (1.6-2.3); Phosphorus 3.3 mg/dL (2.5-4.5); Potassium 3.4 mmol/L (3.4-5.0); Sodium 138 mmol/L (137-145)
[2020-02-10] MEDS: CENTRAL LINE FLUSH 10 ML IV PUSH ×3 (05:58→21:40)
[2020-02-10 06:35] LABS: Alveolar/Arterial O2 Gradient 96.9 mmHg; Base Excess ABG 5.8 mEq/l (+/-2.0); Carboxyhemoglobin 0.3 % THb (0-2.0); Fractional Inspired Oxygen 30 %; HCO3 ABG 28.7 mEq/l (22.0-26.0); Methemoglobin ABG 0.2 %THb (0-1.5); Oxygen Content ABG 15.3 %vol (16.0-22.0); Oxygen Saturation ABG 96.4 % (95.0-100.0); PCO2 ABG 35.6 mmHg (35.0-45.0); PO2 ABG 75.2 mmHg (80.0-100.0); PO2 FiO2 Ratio Arterial Blood 2.51 %; Reduced Hemoglobin 5.5 %THb (0-5.0); Total Hemoglobin 11.5 g/dL (12.0-18.0)
[2020-02-10 06:37] LABS: pH ABG 7.524 (7.350-7.450)
[2020-02-10 06:38] LABS: Arterial Blood Gas PEEP 5 cmH2O; Arterial Blood Gas Tidal Volume 300 ml; Arterial Blood Gas Vent Mode ASSIST CONTROL; Arterial Blood Gas Ventilator rate 14 /MIN; Device VENTILATOR; Modified Allen's Test Pass; Site Drawn RIGHT RADIAL
[2020-02-10] MEDS: POTASSIUM CHLORIDE 20 MEQ PACKET (FOR LIQUID) 40 MEQ FEED TUBE (09:19)
[2020-02-10] MEDS: INSULIN DETEMIR 100 UNITS/ML 35 UNITS SUB-Q ×2 (09:20→21:39)
[2020-02-10] MEDS: FAMOTIDINE 20 MG/2 ML VIAL IV PUSH ×2 (09:20→21:38)
[2020-02-10] MEDS: CHOLECALCIFEROL 1,000 UNITS TABLET 1000 UNITS PO (09:20)
[2020-02-10] MEDS: ZINC SULFATE 220 MG CAPSULE PO (09:20)
[2020-02-10] MEDS: ENOXAPARIN 40 MG/0.4 ML SYRINGE SUB-Q (09:20)
[2020-02-10] MEDS: ASCORBIC ACID 500 MG TABLET PO (09:20)
--- NOTE | 2020-02-10 10:48 | WPDINTPN ---
Progress Note: A&P Assessment and Plan (1) Acute respiratory failure: Code(s): J96.00 - Acute respiratory failure, unspecified whether with hypoxia or hypercapnia Status: Acute Assessment and Plan: Acute Respiratory failure secondary to healthcare associated pneumonia versus COVID-19, ? questionable baseline COPD - patient was intubated on 01/28/2020 in the ER - chest x-ray and ABGs reviewed, patient seems to be doing better respiratory raines, but her mental status is preventing extubation. - Currently on AVAPS , peep of 5, 30% FiO2 ABG and PCXR reviewed. - decrease vent rate - She was initially on broad-spectrum antibiotics with cefepime and vancomycin. Now both has been stopped and currently on levofloxacin. Sputum culture grew stenotrophomonas which is sensitive to Levaquin. - continue Bronchodilators - PATIENT IS OFF ALL SEDATION > 96 hrs (2) Pneumonia: Code(s): J18.9 - Pneumonia, unspecified organism Status: Acute Assessment and Plan: SPUTUM CULTURES GROWING STENOTROPHOMONAS MALTOPHILIA: susceptible to Levaquin, - Continue on Levaquin ( initiated on 02/02/2020).- for for total of 7 days cefepime and vancomycin has been discontinued. - appreciate infectious disease evaluation recommendations (3) Sepsis: Code(s): A41.9 - Sepsis, unspecified organism Status: Acute Assessment and Plan: Sepsis secondary to healthcare associated pneumonia and UTI urine cultures growing Klebsiella. Sputum culture grew stenotrophonas. infectious disease service is following. currently on levofloxacin. blood cultures negative x2 lactic acid level has normalized now - on and off low-dose Levophed. cautious IV fluids due to COVID-19 - leukocytosis improving (4) Shock: Code(s): R57.9 - Shock, unspecified Status: Acute Assessment and Plan: shock with unclear etiology with septic versus secondary to sedation versus hypovolemia she was on low-dose Levophed. overnight and expected to be weaned off blood pressures are stable (5) COVID-19: Code(s): U07.1 - COVID-19 Status: Acute Assessment and Plan: [facility] Patient is in Airborne, Droplet and Contact Isolation dexamethasone started on 01/28 completed remdisivir which was started on 01/29. 1 unit of Convalscent plasma on 01/29 D-dimer, CRP, LDH trending down. Ferritin is normal, continue to monitor inflammatory marker (6) Acute hypernatremia: Code(s): E87.0 - Hyperosmolality and hypernatremia Status: Resolved Assessment and Plan: Hypernatremia and hyperchloremia suggestive of intravascular volume depletion sodium levels improving and hypernatremia has resolved now. Continue free water flushes (7) Elevated transaminase level: Code(s): R74.01 - Elevation of levels of liver transaminase levels Status: Acute Assessment and Plan: ultrasound of right upper quadrant showed hepatic steatosis (8) JOSE ANGEL (acute kidney injury): Code(s): N17.9 - Acute kidney failure, unspecified Status: Acute Assessment and Plan: JOSE ANGEL likely prerenal from sepsis and hypovolemia Acute kidney injury resolved now. US - Sonographically unremarkable kidneys. Monitor creatinine electrolytes and urine output (9) Encephalopathy acute: Code(s): G93.40 - Encephalopathy, unspecified Status: Acute Assessment and Plan: persists: likely toxic metabolic encephalopathy unchanged head CT from past - could be related to septic shock, hypernatremia, COVID-19 pneumonia - EEG consistent with encephalopathy, no obvious seizure activity, ammonia and TSH were normal - unable to do MRI on vented patient in this hospital She has been off sedatives the last few days and is slowly improving - continue to hold all sedatives and monitor. - no other recommendations from neurology at this p
--- NOTE | 2020-02-10 10:51 | PCDIET ---
ICU Rounding Note: Patient tolerating Glucerna 1.2 at 50mL/hr goal rate. No issues, per nursing. Last recorded weight is 73.1kg which is down from last review, but still up from admission. -I/O. Bowel Motility: Large BM earlier this morning, per RN. Labs Reviewed: Hgb (9.2), Hct (29.8), Glu (148), BUN (28), Alb (2.5) Meds Noted: Albuterol, Vitamin C, Pepcid, Novolog, Levemir, Levaquin, Reglan, Levophed, Vitamin D, Zinc Sulfate, Magnesium Sulfate, KCl Additional Notes: Maceration to buttocks. Following daily in ICU rounds. Assessing/reassessing every Friday/Friday.
[2020-02-10] MEDS: MAGNESIUM SULF 1 GM/D5W 100 ML 1 GM/100 ML BAG IVPB (11:24)
[2020-02-10 12:35] LABS: Glucose Point of Care 125 (65-105)
--- NOTE | 2020-02-10 14:52 | PM.IMPN ---
Progress Note: A&P Assessment and Plan (1) Acute respiratory failure: Code(s): J96.00 - Acute respiratory failure, unspecified whether with hypoxia or hypercapnia Status: Acute Assessment and Plan: Acute respiratory failure secondary to healthcare associated pneumonia vs COVID, questionable underlying COPD. - Intubated in the emergency department on 01/28/2020. Vent management by ICU MD (2) Sepsis: Code(s): A41.9 - Sepsis, unspecified organism Status: Acute Assessment and Plan: Sputum cultures are positive no fever today ongoing encephalopathy COVID positive - Blood cultures negative x2. EEG ordered, CT head ordered little response despite sedation stopping ordered for tomorrow. (3) DM2 (diabetes mellitus, type 2): Code(s): E11.9 - Type 2 diabetes mellitus without complications Status: Chronic Assessment and Plan: on levemir (4) Pneumonia: Code(s): J18.9 - Pneumonia, unspecified organism Status: Acute Assessment and Plan: Sputum culture growing stenotrophomonas maltophilia, susceptible to levofloxacin. - Dr. Narayan (Infectious Disease) was consulted and his input is appreciated. He suspects this may be a colonizer however cannot rule out bacterial superinfection and suggests a 7 day course of levofloxacin. He also recommends completing a 10 day course of dexamethasone. - Continue Levaquin, started 02/01 (day 4/7). Cefepime and vancomycin discontinued 02/01. (5) COVID-19: Code(s): U07.1 - COVID-19 Status: Acute Assessment and Plan: SARS-CoV-2 PCR was reportedly positive at her long-term, the date of testing not available. - Continue airborne, contact, and droplet isolation. - Dexamethasone started 01/28. - Remdesivir started 01/29 once her renal function improved and was completed - Received 1 unit convalescent plasma on 01/29. Subjective Date/time seen: 02/10/20 14:52 Interval history: Healthcare associated pneumonia versus covid 19. Patient was placed in ICU . she is intubated placed on a ventilator. She is listed as a full code. Ventilator settings per printing bindery assistant. Patient is on vancomycin cefepime and azithromycin for the possibility healthcare associated pneumonia. She is also placed on Decadron due to the COVID-19. No antiviral at this time. Due to the acute renal failure and elevated liver enzymes. 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 department with respiratory distress and emergency department patient was intubated as patient was quite hypoxic, and transferred to ICU, suspect patient may have healthcare associated pneumonia as patient was recently discharged from the hospital as well as patient is positive COVID-19, has sepsis most likely secondary to healthcare associated pneumonia patient is being treated with Broad-spectrum antibiotics vancomycin cefepime, urine culture is growing Klebsiella pneumonia sensitive to cefepime, patient was started on tube feeding, patient still on pressors, patient blood sugar were elevated patient was started on IV insulin infusion to bring the blood sugar under control though patient was not in DKA, on 02/01 patient was given trial weaning off the vent however patient became quite tachypneic and hypoxic, patient was sedated and vent was resumed. Patient sputum culture grew Stenotrophomonas was seen by Dr. Narayan suspect most likely colonization rather than true infection recommend continue levaquin 5/7, recommended complete the 9/10 days course of dexamethasone patient inflammatory markers are trending down, will continue monitor and appreciate printing bindery assistant, patient is off insulin drip now on levemir Pt remains on a ventilator, little responsive despite being off sedation, EEG shows metabolic encehalopathy likely secondary to COVID 19. BP is low [place] [id number] increasing. Sputum positive for Strenophonoas
[2020-02-10 18:08] LABS: Glucose Point of Care 148 (65-105)
[2020-02-11] VITALS (23 sets, daily range): BP systolic 94–115; BP diastolic 42–63; PULSE 63–84; RESP 14–21; TEMP 36.1–36.8; O2SAT 93–98
[2020-02-11] MEDS: METOCLOPRAMIDE HCL INJ 10 MG/2 ML VIAL 5 MG IV PUSH ×2 (00:43→05:15)
[2020-02-11 00:50] LABS: Glucose Point of Care 141 (65-105)
[2020-02-11 03:49] LABS: Alveolar/Arterial O2 Gradient 96.1 mmHg; Base Excess ABG 6.4 mEq/l (+/-2.0); Carboxyhemoglobin 0.3 % THb (0-2.0); HCO3 ABG 29.6 mEq/l (22.0-26.0); Methemoglobin ABG 0.3 %THb (0-1.5); Oxygen Content ABG 14.3 %vol (16.0-22.0); Oxygen Saturation ABG 96.2 % (95.0-100.0); Oxyhemoglobin 93.9 % THb (90.0-100.0); PCO2 ABG 37.1 mmHg (35.0-45.0); PO2 ABG 74.2 mmHg (80.0-100.0); Total Hemoglobin 10.8 g/dL (12.0-18.0)
[2020-02-11 03:50] LABS: Device VENTILATOR; Fractional Inspired Oxygen 30 %; Modified Allen's Test Pass; PO2 FiO2 Ratio Arterial Blood 2.47 %; Reduced Hemoglobin 5.5 %THb (0-5.0); Site Drawn LEFT RADIAL
[2020-02-11 03:51] LABS: Arterial Blood Gas PEEP 5 cmH2O; Arterial Blood Gas Tidal Volume 300 ml; Arterial Blood Gas Vent Mode ASSIST CONTROL; Arterial Blood Gas Ventilator rate 14 /MIN
[2020-02-11] MEDS: CENTRAL LINE FLUSH 10 ML IV PUSH ×3 (05:14→21:07)
[2020-02-11] MEDS: ALTEPLASE 2 MG VIAL (CATHFLO) IV PUSH (06:55)
[2020-02-11 07:06] LABS: Glucose Point of Care 143 (65-105)
[2020-02-11] MEDS: FAMOTIDINE 20 MG/2 ML VIAL IV PUSH ×2 (08:21→21:07)
[2020-02-11] MEDS: ENOXAPARIN 40 MG/0.4 ML SYRINGE SUB-Q (08:21)
[2020-02-11] MEDS: INSULIN DETEMIR 100 UNITS/ML 35 UNITS SUB-Q ×2 (08:31→21:06)
--- NOTE | 2020-02-11 09:58 | WPDINTPN ---
Progress Note: A&P Assessment and Plan (1) Acute respiratory failure: Qualifiers: Respiratory failure complication: unspecified whether with hypoxia or hypercapnia Qualified Code(s): J96.00 - Acute respiratory failure, unspecified whether with hypoxia or hypercapnia Code(s): J96.00 - Acute respiratory failure, unspecified whether with hypoxia or hypercapnia Status: Acute Assessment and Plan: Acute respiratory failure secondary to pneumonia from healthcare associated pneumonia versus COVID-19 requiring intubation in the ER 01/28/2020. Respiratory status has improved but mental status for venting extubation. Vent settings: AVAPS peep of 530% FiO2 ABGs and chest x-ray reviewed Initially on broad-spectrum antibiotics with cefepime and vanc. Sputum cultures grew out Stenotrophomonas and her antibiotic coverage was narrowed to Levaquin. She has been continued on bronchodilators. She has been off all sedation greater than 120 hours. (2) Shock: Code(s): R57.9 - Shock, unspecified Status: Acute Assessment and Plan: Source is unclear. Due to sepsis or hypovolemia. However patient is renal function has normalized suggesting euvolemia. Patient remains on low-dose Levophed will attempt to wean today. (3) Encephalopathy acute: Code(s): G93.40 - Encephalopathy, unspecified Status: Acute Assessment and Plan: Due to toxic metabolic encephalopathy. CT 02/11/2020 unchanged. Likely due to septic shock, hypernatremia in COVID pneumonia. Patient was evaluated by Neurology and EEG was consistent with encephalopathy without obvious seizure activity. Ammonia and TSH were normal. We were unable to perform an MRI on a [facility] patient isn't this facility. All sedatives on hold. The patient did have some evidence of flexion and grimace with sternal rub today. (4) COVID-19: Code(s): U07.1 - COVID-19 Status: Acute Assessment and Plan: [facility] She remains on contact airborne and droplet isolation. Completed dexamethasone course 02/08/2020 Completed Remdesivir course that was initiated on 01/30/2020 Received 1 unit of convalescent plasma 01/30/2020 Inflammatory markers unremarkable. (5) Sepsis: Qualifiers: Acute respiratory failure type: unspecified Sepsis acute organ dysfunction status: with acute organ dysfunction Sepsis type: sepsis due to unspecified organism Severe sepsis acute organ dysfunction type: acute respiratory failure Severe sepsis shock status: with septic shock Qualified Code(s): A41.9 - Sepsis, unspecified organism; R65.21 - Severe sepsis with septic shock; J96.00 - Acute respiratory failure, unspecified whether with hypoxia or hypercapnia Code(s): A41.9 - Sepsis, unspecified organism Status: Acute Assessment and Plan: Thought to be due to healthcare associated pneumonia and UTI. Urine cultures grew out Klebsiella. Sputum culture as mentioned above. Infectious disease service is following. Continue Levaquin. Blood cultures are negative x2. Patient has required intermittent Levophed and still remains on 2 mics. (6) JOSE ANGEL (acute kidney injury): Code(s): N17.9 - Acute kidney failure, unspecified Status: Acute Assessment and Plan: Was due to sepsis and hypovolemia. Acute kidney injury has resolved. Renal ultrasound was unremarkable. Urine output has been adequate. (7) DM2 (diabetes mellitus, type 2): Qualifiers: Diabetes mellitus complication status: with hyperglycemia Diabetes mellitus [facility] insulin use: with m[facility] use Qualified Code(s): E11.65 - Type 2 diabetes mellitus with hyperglycemia; Z79.4 - [facility] (current) use of insulin Code(s): E11.9 - Type 2 diabetes mellitus without complications Status: Chronic Assessment and Plan: Glucoses are within target range. Will continue Levemir 35 un
[2020-02-11 10:58] LABS: Hematocrit 31.2 % (37.0-47.0); Hemoglobin 9.6 g/dL (12.0-15.0); Mean Corpuscular HGB Conc 30.8 g/dl (32-36); Mean Corpuscular Hemoglobin 26.2 pg (26-34); Mean Platelet Volume 11.2 fl (7.4-10.4); Platelet Count Result 249 k/mm3 (150-375); Red Blood Count 3.67 M/mm3 (4.2-5.4); Red Cell Distribution Width 17.2 % (11.5-14.5); White Blood Count 12.7 K/mm3 (4.5-10.0)
[2020-02-11 11:14] LABS: Alanine Aminotransferase 63 U/L (4-35); Albumin Level 2.6 g/dL (3.5-5.1); Alkaline Phosphatase 88 U/L (38-126); Anion Gap 3 mmol/L (8-16); Aspartate Amino Transferase 41 U/L (14-36); Bilirubin,Total 0.4 mg/dL (0.2-1.3); Blood Urea Nitrogen 21 mg/dL (7-17); CRP 8.2 mg/dL (<1.0); Calcium 8.8 mg/dL (8.4-10.2); Carbon Dioxide 34 mmol/L (22-30); Chloride 100 mmol/L (98-107); Estimated CRCL calculation 53 ml/min; Estimated Glomerular Filt Rate > 60; Glucose 162 mg/dL (65-105); Lactate Dehydrogenase 563 U/L (313-618); Magnesium 1.7 mg/dL (1.6-2.3); Phosphorus 4.2 mg/dL (2.5-4.5); Potassium 3.7 mmol/L (3.4-5.0); Sodium 137 mmol/L (137-145)
--- NOTE | 2020-02-11 11:22 | PCDIET ---
Nutrition Follow-Up Complete: Nutrition Diagnosis: Inadequate oral intake related to oral intubation as evidenced by need for tube feeding. Nutrition Goal: Patient to meet estimated nutritional needs. Goal met. Patient tolerating Glucerna 1.2 at 50mL/hr goal rate without reported issues. MD discontinuing Reglan. Last recorded weight is 73.4 kg which is stable. Bowel Motility: BM x 2 on 02/10/20. Labs Reviewed: Glu (141) Meds Noted: Albuterol, Pepcid, Novolog, Levemir, Atrovent, Levaquin, Levophed Additional Notes: CT brain ordered. Buttocks with friction shear. Will continue to monitor with same goal. Nutrition Monitoring and Evaluation: Follow up every Friday/Friday. Follow daily in ICU rounds.
[2020-02-11 12:31] LABS: Glucose Point of Care 130 (65-105)
[2020-02-11 13:24] LABS: D Dimer 2.82 ug/mL (<0.48)
--- NOTE | 2020-02-11 14:13 | PM.IMPN ---
Progress Note: A&P Assessment and Plan (1) Acute respiratory failure: Qualifiers: Respiratory failure complication: unspecified whether with hypoxia or hypercapnia Qualified Code(s): J96.00 - Acute respiratory failure, unspecified whether with hypoxia or hypercapnia Code(s): J96.00 - Acute respiratory failure, unspecified whether with hypoxia or hypercapnia Status: Acute Assessment and Plan: Acute respiratory failure secondary to healthcare associated pneumonia vs COVID, questionable underlying COPD. - Intubated in the emergency department on 01/28/2020. Vent management by ICU MD (2) Sepsis: Qualifiers: Sepsis type: sepsis due to unspecified organism Sepsis acute organ dysfunction status: with acute organ dysfunction Severe sepsis acute organ dysfunction type: acute respiratory failure Acute respiratory failure type: unspecified Severe sepsis shock status: with septic shock Qualified Code(s): A41.9 - Sepsis, unspecified organism; R65.21 - Severe sepsis with septic shock; J96.00 - Acute respiratory failure, unspecified whether with hypoxia or hypercapnia Code(s): A41.9 - Sepsis, unspecified organism Status: Acute Assessment and Plan: Sputum cultures are positive no fever today ongoing encephalopathy COVID positive - Blood cultures negative x2. EEG ordered, RPt CT head much the same, little response after stopping sedation for few days (3) DM2 (diabetes mellitus, type 2): Qualifiers: Diabetes mellitus senior living insulin use: with senior living use Diabetes mellitus complication status: with hyperglycemia Qualified Code(s): E11.65 - Type 2 diabetes mellitus with hyperglycemia; Z79.4 - jail (current) use of insulin Code(s): E11.9 - Type 2 diabetes mellitus without complications Status: Chronic Assessment and Plan: on levemir (4) Pneumonia: Code(s): J18.9 - Pneumonia, unspecified organism Status: Acute Assessment and Plan: Sputum culture growing stenotrophomonas maltophilia, susceptible to levofloxacin. - Dr. Narayan (Infectious Disease) was consulted and his input is appreciated. He suspects this may be a colonizer however cannot rule out bacterial superinfection and suggests a 7 day course of levofloxacin. He also recommends completing a 10 day course of dexamethasone. - Continue Levaquin, started 02/01 (day 5/7). Cefepime and vancomycin discontinued 02/01. (5) COVID-19: Code(s): U07.1 - COVID-19 Status: Acute Assessment and Plan: SARS-CoV-2 PCR was [facility] positive at [facility], the date of testing not available. - Continue airborne, contact, and droplet isolation. - Dexamethasone started 01/28. - Remdesivir started 01/29 once her renal function improved and was completed - Received 1 unit convalescent plasma on 01/29. Subjective Date/time seen: 02/11/20 14:13 Interval history: Healthcare associated pneumonia versus covid 19. Patient was placed in ICU . she is intubated placed on a ventilator. She is listed as a full code. Ventilator settings per [employer]. Patient is on vancomycin cefepime and azithromycin for the possibility healthcare associated pneumonia. She is also placed on Decadron due to the COVID-19. No antiviral at this time. Due to the acute renal failure and elevated liver enzymes. 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
[2020-02-11 18:40] LABS: Glucose Point of Care 151 (65-105)
[2020-02-11 21:07] LABS: Glucose Point of Care 139 (65-105)
[2020-02-12] VITALS (27 sets, daily range): BP systolic 100–131; BP diastolic 42–65; PULSE 71–95; RESP 16–20; TEMP 36.6–37.1; O2SAT 94–98
[2020-02-12 01:14] LABS: Glucose Point of Care 118 (65-105)
[2020-02-12] MEDS: NOREPINEPHRINE 8 MG/D5W 250 ML 8 MG/250 ML BAG 3.75 MG IV CONT (02:38)
[2020-02-12] MEDS: CENTRAL LINE FLUSH 10 ML IV PUSH ×3 (05:04→21:14)
[2020-02-12 05:22] LABS: Hematocrit 29.8 % (37.0-47.0); Hemoglobin 9.2 g/dL (12.0-15.0); Mean Corpuscular HGB Conc 30.9 g/dl (32-36); Mean Corpuscular Hemoglobin 26.3 pg (26-34); Mean Corpuscular Volume 85.1 fl (80-100); Mean Platelet Volume 10.7 fl (7.4-10.4); Platelet Count Result 256 k/mm3 (150-375); Red Cell Distribution Width 17.3 % (11.5-14.5); White Blood Count 12.4 K/mm3 (4.5-10.0)
[2020-02-12 05:49] LABS: Alanine Aminotransferase 53 U/L (4-35); Albumin Level 2.6 g/dL (3.5-5.1); Alkaline Phosphatase 89 U/L (38-126); Anion Gap 5 mmol/L (8-16); Aspartate Amino Transferase 32 U/L (14-36); Bilirubin,Total 0.4 mg/dL (0.2-1.3); Blood Urea Nitrogen 22 mg/dL (7-17); Calcium 9.2 mg/dL (8.4-10.2); Carbon Dioxide 34 mmol/L (22-30); Chloride 100 mmol/L (98-107); Estimated CRCL calculation 47 ml/min; Estimated Glomerular Filt Rate > 60; Glucose 134 mg/dL (65-105); Magnesium 1.8 mg/dL (1.6-2.3); Phosphorus 5.4 mg/dL (2.5-4.5); Potassium 3.9 mmol/L (3.4-5.0); Sodium 139 mmol/L (137-145)
[2020-02-12 06:22] LABS: Alveolar/Arterial O2 Gradient 89.7 mmHg; Base Excess ABG 5.8 mEq/l (+/-2.0); Carboxyhemoglobin 0.2 % THb (0-2.0); Fractional Inspired Oxygen 30 %; HCO3 ABG 28.5 mEq/l (22.0-26.0); Methemoglobin ABG 0.1 %THb (0-1.5); Oxygen Content ABG 14.1 %vol (16.0-22.0); Oxygen Saturation ABG 97.3 % (95.0-100.0); Oxyhemoglobin 95.6 % THb (90.0-100.0); PCO2 ABG 34.6 mmHg (35.0-45.0); PO2 ABG 83.5 mmHg (80.0-100.0); PO2 FiO2 Ratio Arterial Blood 2.78 %; Reduced Hemoglobin 4.1 %THb (0-5.0); Total Hemoglobin 10.4 g/dL (12.0-18.0)
[2020-02-12 06:24] LABS: Device VENTILATOR; Modified Allen's Test Pass; Site Drawn LEFT RADIAL; pH ABG 7.534 (7.350-7.450)
[2020-02-12 06:25] LABS: Arterial Blood Gas PEEP 5 cmH2O; Arterial Blood Gas Tidal Volume 300 ml; Arterial Blood Gas Vent Mode ASSIST CONTROL; Arterial Blood Gas Ventilator rate 14 /MIN
[2020-02-12] MEDS: ENOXAPARIN 40 MG/0.4 ML SYRINGE SUB-Q (07:33)
[2020-02-12] MEDS: FAMOTIDINE 20 MG/2 ML VIAL IV PUSH ×2 (07:34→21:13)
[2020-02-12] MEDS: INSULIN DETEMIR 100 UNITS/ML 35 UNITS SUB-Q ×2 (07:34→21:10)
--- NOTE | 2020-02-12 09:17 | P.PNINT_ITS ---
Progress Note: A&P Assessment and Plan (1) Acute respiratory failure: Qualifiers: Respiratory failure complication: unspecified whether with hypoxia or hypercapnia Qualified Code(s): J96.00 - Acute respiratory failure, unspecified whether with hypoxia or hypercapnia Code(s): J96.00 - Acute respiratory failure, unspecified whether with hypoxia or hypercapnia Status: Acute Assessment and Plan: * Chest x-ray reviewed and w/o change * 04/14: FIO2 30%, TV 300, PEEP 5, rate 14; ABG 7.354/34.6/83.5/97.3% * Initially on broad-spectrum antibiotics with cefepime and vanc. Sputum cultures grew out Stenotrophomonas and her antibiotic coverage was narrowed to Levaquin. * Continue bronchodilators * Encephalopathy renders weaning problematic (2) Pneumonia: Qualifiers: Laterality: unspecified laterality Lung location: unspecified part of lung Pneumonia type: due to unspecified organism Qualified Code(s): J18.9 - Pneumonia, unspecified organism Code(s): J18.9 - Pneumonia, unspecified organism Status: Acute Assessment and Plan: * Levaquin 750mg IV daily since 02/08/2020 (Day 5) (3) Encephalopathy acute: Code(s): G93.40 - Encephalopathy, unspecified Status: Acute Assessment and Plan: * Likely due to septic shock with underlying encephalomalacia * CT Brain 02/10 with old encephalomalacia * Patient was evaluated by Neurology and EEG was consistent with encephalopathy without obvious seizure activity. * Ammonia and TSH were normal. * All sedatives on hold * Continues to respond to noxious stimuli without directed response * WBC and temp remain WNL * Consider viral etiology * LP would be low yield procedure * Px is poor * Family to discuss today (4) COVID-19: Code(s): U07.1 - COVID-19 Status: Acute Assessment and Plan: * Was POSITIVE at [place] prior to admission * Completed dexamethasone course 02/08/2020 * Completed Remdesivir course that was initiated on 01/30/2020 * Received 1 unit of convalescent plasma 01/30/2020 * Inflammatory markers unremarkable. (5) Sepsis: Qualifiers: Acute respiratory failure type: unspecified Sepsis acute organ dysfunction status: with acute organ dysfunction Sepsis type: sepsis due to unspecified organism Severe sepsis acute organ dysfunction type: acute respiratory failure Severe sepsis shock status: with septic shock Qualified Code(s): A41.9 - Sepsis, unspecified organism; R65.21 - Severe sepsis with septic shock; J96.00 - Acute respiratory failure, unspecified whether with hypoxia or hypercapnia Code(s): A41.9 - Sepsis, unspecified organism Status: Acute Assessment and Plan: * Continue norepinephrine 1mcg/min (6) Elevated transaminase level: Code(s): R74.01 - Elevation of levels of liver transaminase levels Status: Acute Assessment and Plan: * Due to septic shock * 02/11:ALT 53, AST 32 (7) Acute renal failure: Qualifiers: Acute renal failure type: unspecified Qualified Code(s): N17.9 - Acute kidney failure, unspecified Code(s): N17.9 - Acute kidney failure, unspecified Status: Acute Assessment and Plan: * Resolved * 02/11 creatinine 0.9 Subjective Date/time seen: 02/12/20 09:17 Interval history: Ventilated. Chart reviewed. Admitted and intubated 01/27 due to pneumonia with respiratory failure and encephalopathy. NH resident. Hx prior cranial surgery with encephalomalacia. Review of Systems Review of Systems: ROS unobtainabl
--- NOTE | 2020-02-12 09:17 | WPDINTPN ---
Progress Note: A&P Assessment and Plan (1) Acute respiratory failure: Qualifiers: Respiratory failure complication: unspecified whether with hypoxia or hypercapnia Qualified Code(s): J96.00 - Acute respiratory failure, unspecified whether with hypoxia or hypercapnia Code(s): J96.00 - Acute respiratory failure, unspecified whether with hypoxia or hypercapnia Status: Acute Assessment and Plan: Chest x-ray reviewed and w/o change 04/14: FIO2 30%, TV 300, PEEP 5, rate 14; ABG 7.354/34.6/83.5/97.3% Initially on broad-spectrum antibiotics with cefepime and vanc. Sputum cultures grew out Stenotrophomonas and her antibiotic coverage was narrowed to Levaquin. Continue bronchodilators Encephalopathy renders weaning problematic (2) Pneumonia: Qualifiers: Laterality: unspecified laterality Lung location: unspecified part of lung Pneumonia type: due to unspecified organism Qualified Code(s): J18.9 - Pneumonia, unspecified organism Code(s): J18.9 - Pneumonia, unspecified organism Status: Acute Assessment and Plan: Levaquin 750mg IV daily since 02/08/2020 (Day 5) (3) Encephalopathy acute: Code(s): G93.40 - Encephalopathy, unspecified Status: Acute Assessment and Plan: Likely due to septic shock with underlying encephalomalacia CT Brain 02/10 with old encephalomalacia Patient was evaluated by Neurology and EEG was consistent with encephalopathy without obvious seizure activity. Ammonia and TSH were normal. All sedatives on hold Continues to respond to noxious stimuli without directed response WBC and temp remain WNL Consider viral etiology LP would be low yield procedure Px is poor Family to discuss today (4) COVID-19: Code(s): U07.1 - COVID-19 Status: Acute Assessment and Plan: Was POSITIVE at [place] prior to admission Completed dexamethasone course 02/08/2020 Completed Remdesivir course that was initiated on 01/30/2020 Received 1 unit of convalescent plasma 01/30/2020 Inflammatory markers unremarkable. (5) Sepsis: Qualifiers: Acute respiratory failure type: unspecified Sepsis acute organ dysfunction status: with acute organ dysfunction Sepsis type: sepsis due to unspecified organism Severe sepsis acute organ dysfunction type: acute respiratory failure Severe sepsis shock status: with septic shock Qualified Code(s): A41.9 - Sepsis, unspecified organism; R65.21 - Severe sepsis with septic shock; J96.00 - Acute respiratory failure, unspecified whether with hypoxia or hypercapnia Code(s): A41.9 - Sepsis, unspecified organism Status: Acute Assessment and Plan: Continue norepinephrine 1mcg/min (6) Elevated transaminase level: Code(s): R74.01 - Elevation of levels of liver transaminase levels Status: Acute Assessment and Plan: Due to septic shock 02/11:ALT 53, AST 32 (7) Acute renal failure: Qualifiers: Acute renal failure type: unspecified Qualified Code(s): N17.9 - Acute kidney failure, unspecified Code(s): N17.9 - Acute kidney failure, unspecified Status: Acute Assessment and Plan: Resolved 02/11 creatinine 0.9 Subjective Date/time seen: 02/12/20 09:17 Interval history: Ventilated. Chart reviewed. Admitted and intubated 01/27 due to pneumonia with respiratory failure and encephalopathy. NH resident. Hx prior cranial surgery with encephalomalacia. Review of Systems Review of Systems: ROS unobtainable: Yes unobtainable due to medical condition Exam Narrative: Exam Narrative: HEENT: PERRL though midpoint and sluggish, sclerae nonicteric, pharyngeal mucosa pink and intact, ET tube in place NECK: No JVD CHEST: Coarse BS with decrease at bases HEART: NL S1/S2, regular, no murmur ABDOMEN: BS hypoactive, soft, nontender, no mass, no bruits EXTREMITIES: No cyanosis, edema, or clubbing NEUROLOGIC: CN intact and symmetric
[2020-02-12 12:33] LABS: Glucose Point of Care 127 (65-105)
[2020-02-12] MEDS: PHARMACIST COMMUNICATION ORDER 1 EACH XX (15:51)
--- NOTE | 2020-02-12 17:20 | PM.IMPN ---
Progress Note: A&P Assessment and Plan (1) Acute respiratory failure: Qualifiers: Respiratory failure complication: unspecified whether with hypoxia or hypercapnia Qualified Code(s): J96.00 - Acute respiratory failure, unspecified whether with hypoxia or hypercapnia Code(s): J96.00 - Acute respiratory failure, unspecified whether with hypoxia or hypercapnia Status: Acute Assessment and Plan: Vent management by ICU MD (2) Pneumonia: Qualifiers: Laterality: unspecified laterality Lung location: unspecified part of lung Pneumonia type: due to unspecified organism Qualified Code(s): J18.9 - Pneumonia, unspecified organism Code(s): J18.9 - Pneumonia, unspecified organism Status: Acute Assessment and Plan: Levaquin 750mg IV daily since 02/08/2020 (Day 5) (3) Encephalopathy acute: Code(s): G93.40 - Encephalopathy, unspecified Status: Acute Assessment and Plan: NO response despite from patient despite being off sedation poor prognosis Familynotified (4) COVID-19: Code(s): U07.1 - COVID-19 Status: Acute Assessment and Plan: SARS-CoV-2 PCR was reportedly positive at her [facility], the date of testing not available. - Continue airborne, contact, and droplet isolation. - Dexamethasone started 01/28. - Remdesivir started 01/29 once her renal function improved and was completed - Received 1 unit convalescent plasma on 01/29. (5) Sepsis: Qualifiers: Sepsis type: sepsis due to unspecified organism Sepsis acute organ dysfunction status: with acute organ dysfunction Severe sepsis acute organ dysfunction type: acute respiratory failure Acute respiratory failure type: unspecified Severe sepsis shock status: with septic shock Qualified Code(s): A41.9 - Sepsis, unspecified organism; R65.21 - Severe sepsis with septic shock; J96.00 - Acute respiratory failure, unspecified whether with hypoxia or hypercapnia Code(s): A41.9 - Sepsis, unspecified organism Status: Acute Assessment and Plan: On levaquin and levophed Sputum culture growing stenotrophomonas maltophilia, susceptible to levofloxacin. - Dr. Narayan (Infectious Disease) was consulted and his input is appreciated. He suspects this may be a colonizer however cannot rule out bacterial superinfection and suggests a 7 day course of levofloxacin. He also recommends completing a 10 day course of dexamethasone. - Continue Levaquin, started 02/01 (day 6/7). Cefepime and vancomycin discontinued 02/01. (6) Elevated transaminase level: Code(s): R74.01 - Elevation of levels of liver transaminase levels Status: Acute Assessment and Plan: Due to septic shock (7) Acute renal failure: Qualifiers: Acute renal failure type: unspecified Qualified Code(s): N17.9 - Acute kidney failure, unspecified Code(s): N17.9 - Acute kidney failure, unspecified Status: Acute Assessment and Plan: Resolved Subjective Date/time seen: 02/12/20 17:20 Interval history: Healthcare associated pneumonia versus covid 19. Patient was placed in ICU . she is intubated placed on a ventilator. She is listed as a full code. Ventilator settings per [employer]. Patient is on vancomycin cefepime and azithromycin for the possibility healthcare associated pneumonia. She is also placed on Decadron due to the COVID-19. No antiviral at this time. Due to the acute renal failure and elevated liver enzymes. Patient is 75-year-old female with history of dementia a resident of nursing was brought to emergency department with respiratory distress and emergency department patient was intubated as patient was quite hypoxic, and transferred to ICU, suspect patient may have healthcare associated pneumonia as patient was recently discharged from the hospital as well as patient is positive COVID-19, has sepsis most likely secondary to heal
[2020-02-12 18:14] LABS: Glucose Point of Care 129 (65-105)
[2020-02-12 23:57] LABS: Glucose Point of Care 136 (65-105)
[2020-02-13] VITALS (26 sets, daily range): BP systolic 98–132; BP diastolic 43–62; PULSE 70–98; RESP 16–26; TEMP 36.1–36.7; O2SAT 96–99
[2020-02-13 01:42] LABS: Glucose Point of Care 122 (65-105)
[2020-02-13] MEDS: CENTRAL LINE FLUSH 10 ML IV PUSH ×3 (04:04→21:59)
[2020-02-13 04:37] LABS: D Dimer 1.18 ug/mL (<0.48)
[2020-02-13 04:45] LABS: Lactate Dehydrogenase 528 U/L (313-618)
[2020-02-13 04:53] LABS: Base Excess ABG 6.4 mEq/l (+/-2.0); Fractional Inspired Oxygen 30 %; HCO3 ABG 29.9 mEq/l (22.0-26.0); Oxygen Saturation ABG 95.3 % (95.0-100.0); Oxyhemoglobin 93.2 % THb (90.0-100.0); PCO2 ABG 38.9 mmHg (35.0-45.0); PO2 ABG 69.2 mmHg (80.0-100.0); PO2 FiO2 Ratio Arterial Blood 2.31 %; Total Hemoglobin 9.9 g/dL (12.0-18.0); pH ABG 7.504 (7.350-7.450)
[2020-02-13 04:54] LABS: Arterial Blood Gas Ventilator rate 14 /MIN; Device VENTILATOR; Modified Allen's Test Pass; Site Drawn LEFT RADIAL
[2020-02-13 04:55] LABS: Arterial Blood Gas PEEP 5 cmH2O; Arterial Blood Gas Tidal Volume 300 ml
[2020-02-13 05:05] LABS: CRP 14.1 mg/dL (<1.0)
[2020-02-13 06:35] LABS: Glucose Point of Care 109 (65-105)
[2020-02-13] MEDS: IPRATROPIUM BR 0.02% INH SOLN 0.5 MG/2.5 ML VIAL INHALATION (07:53)
[2020-02-13] MEDS: ALBUTEROL SULFATE NEB 2.5 MG/0.5 ML INH INHALATION (07:53)
[2020-02-13] MEDS: INSULIN DETEMIR 100 UNITS/ML 35 UNITS SUB-Q ×2 (08:47→21:57)
[2020-02-13] MEDS: ENOXAPARIN 40 MG/0.4 ML SYRINGE SUB-Q (08:47)
[2020-02-13] MEDS: FAMOTIDINE 20 MG/2 ML VIAL IV PUSH ×2 (08:47→21:58)
--- NOTE | 2020-02-13 09:13 | P.PNINT_ITS ---
Progress Note: A&P Assessment and Plan (1) Acute respiratory failure: Qualifiers: Respiratory failure complication: unspecified whether with hypoxia or hypercapnia Qualified Code(s): J96.00 - Acute respiratory failure, unspecified whether with hypoxia or hypercapnia Code(s): J96.00 - Acute respiratory failure, unspecified whether with hypoxia or hypercapnia Status: Acute Assessment and Plan: * 04/14: FIO2 30%, TV 300, rate 14; AB.504, 38.9, 69.2, 93.2% * I/O 02/11 1482/1175 * Initially on cefepime and vanc * Levaquin due to stenotrophomonas in sputum * Continue bronchodilators * Encephalopathy is problematic, re: weaning * Plan trach and PEG prior to transfer to LTAC (2) Pneumonia: Qualifiers: Laterality: unspecified laterality Lung location: unspecified part of l skyl[place] Pneumonia type: due to unspecified organism Qualified Code(s): J18.9 - Pneumonia, unspecified organism Code(s): J18.9 - Pneumonia, unspecified organism Status: Acute Assessment and Plan: * Levaquin day 6 (started 02/08/20) (3) Encephalopathy acute: Code(s): G93.40 - Encephalopathy, unspecified Status: Acute Assessment and Plan: * Sepsis with underlying encephalomalacia * CT brain 02/10 w/o acute change * EEG c/w encephalopathy, w/o sign of sz * Ammonia and TSH WNL * Sedative on hold * Responds to noxious stimuli but w/o directed response * WBC and temp remain SNL * Px poor * Further evaluation (eg, LP) would be unlikely to change therapy (4) COVID-19: Code(s): U07.1 - COVID-19 Status: Acute Assessment and Plan: * POSITIVE at [facility] prior to admission * Completed dexamethasone 02/07 * Completed remdesivir that was initiated 02/08 * Recevied 1 U convalescent plasma 01/29 * Inflammatory markers (5) Sepsis: Qualifiers: Acute respiratory failure type: unspecified Sepsis acute organ dysfunction status: with acute organ dysfunction Sepsis type: sepsis due to unspecified organism Severe sepsis acute organ dysfunction type: acute re spiratory failure Severe sepsis shock status: with septic shock Qualified Code(s): A41.9 - Sepsis, unspecified organism; R65.21 - Severe sepsis with septic shock; J96.00 - Acute respiratory failure, unspecified whether with hypoxia or hypercapnia Code(s): A41.9 - Sepsis, unspecified organism Status: Acute Assessment and Plan: * 04/14 at 6:15 OFF norepinephrine (6) Elevated transaminase level: Code(s): R74.01 - Elevation of levels of liver transaminase levels Status: Acute Assessment and Plan: * Due to sepsis * F/u lab 02/13 (7) Acute renal failure: Qualifiers: Acute renal failure type: unspecified Qualified Code(s): N17.9 - Acute kidney failure, unspecified Code(s): N17.9 - Acute kidney failure, unspecified Status: Acute Assessment and Plan: * Resolved Subjective Date/time seen: 02/13/20 09:13 Interval history: 02/12: Interval history: Ventilated. Chart reviewed. Admitted and intubated 01/27 due to pneumonia with respiratory failure and encephalopathy. NH resident. Hx prior cranial surgery with encephalomalacia. Remains on ventilator. Review of Systems Review of Systems: ROS unobtainable: Yes unobtainable due to medical condition Exam Narrative: Exam Narrative: Exam Narrative: HEENT: PERRL though midpoint and sluggish, sclerae nonicteric, pharyngeal mucosa pink and intact, ET tube in place NECK: No JVD CHEST: Coarse
--- NOTE | 2020-02-13 09:13 | WPDINTPN ---
Progress Note: A&P Assessment and Plan (1) Acute respiratory failure: Qualifiers: Respiratory failure complication: unspecified whether with hypoxia or hypercapnia Qualified Code(s): J96.00 - Acute respiratory failure, unspecified whether with hypoxia or hypercapnia Code(s): J96.00 - Acute respiratory failure, unspecified whether with hypoxia or hypercapnia Status: Acute Assessment and Plan: 04/14: FIO2 30%, TV 300, rate 14; AB.504, 38.9, 69.2, 93.2% I/O 02/11 1482/1175 Initially on cefepime and vanc Levaquin due to stenotrophomonas in sputum Continue bronchodilators Encephalopathy is problematic, re: weaning Plan trach and PEG prior to transfer to LTAC (2) Pneumonia: Qualifiers: Laterality: unspecified laterality Lung location: unspecified part of lung Pneumonia type: due to unspecified organism Qualified Code(s): J18.9 - Pneumonia, unspecified organism Code(s): J18.9 - Pneumonia, unspecified organism Status: Acute Assessment and Plan: Levaquin day 6 (started 02/08/20) (3) Encephalopathy acute: Code(s): G93.40 - Encephalopathy, unspecified Status: Acute Assessment and Plan: Sepsis with underlying encephalomalacia CT brain 02/10 w/o acute change EEG c/w encephalopathy, w/o sign of sz Ammonia and TSH WNL Sedative on hold Responds to noxious stimuli but w/o directed response WBC and temp remain SNL Px poor Further evaluation (eg, LP) would be unlikely to change therapy (4) COVID-19: Code(s): U07.1 - COVID-19 Status: Acute Assessment and Plan: POSITIVE at [facility] prior to admission Completed dexamethasone 02/07 Completed remdesivir that was initiated 02/08 Recevied 1 U convalescent plasma 01/29 Inflammatory markers (5) Sepsis: Qualifiers: Acute respiratory failure type: unspecified Sepsis acute organ dysfunction status: with acute organ dysfunction Sepsis type: sepsis due to unspecified organism Severe sepsis acute organ dysfunction type: acute respiratory failure Severe sepsis shock status: with septic shock Qualified Code(s): A41.9 - Sepsis, unspecified organism; R65.21 - Severe sepsis with septic shock; J96.00 - Acute respiratory failure, unspecified whether with hypoxia or hypercapnia Code(s): A41.9 - Sepsis, unspecified organism Status: Acute Assessment and Plan: 04/14 at 6:15 OFF norepinephrine (6) Elevated transaminase level: Code(s): R74.01 - Elevation of levels of liver transaminase levels Status: Acute Assessment and Plan: Due to sepsis F/u lab 02/13 (7) Acute renal failure: Qualifiers: Acute renal failure type: unspecified Qualified Code(s): N17.9 - Acute kidney failure, unspecified Code(s): N17.9 - Acute kidney failure, unspecified Status: Acute Assessment and Plan: Resolved Subjective Date/time seen: 02/13/20 09:13 Interval history: 02/12: Interval history: Ventilated. Chart reviewed. Admitted and intubated 01/27 due to pneumonia with respiratory failure and encephalopathy. NH resident. Hx prior cranial surgery with encephalomalacia. Remains on ventilator. Review of Systems Review of Systems: ROS unobtainable: Yes unobtainable due to medical condition Exam Narrative: Exam Narrative: Exam Narrative: HEENT: PERRL though midpoint and sluggish, sclerae nonicteric, pharyngeal mucosa pink and intact, ET tube in place NECK: No JVD CHEST: Coarse BS with decrease at bases HEART: NL S1/S2, regular, no murmur ABDOMEN: BS hypoactive, soft, nontender, no mass, no bruits EXTREMITIES: No cyanosis, edema, or clubbing NEUROLOGIC: CN intact and symmetric to inspection. MUSCULOSKELETAL: Tone symmetric PSYCH: Minimal response to noxious stimuli. Objective Data Vital Signs Vital Signs: Vital Signs - 24 hr 02/12/20 10:00 02/12/20 10:17 02/12/20 11:40 Temperature Pulse Rate 86 88 95 Respirator
[2020-02-13 13:32] LABS: Glucose Point of Care 126 (65-105)
--- NOTE | 2020-02-13 14:56 | PM.IMPN ---
Progress Note: A&P Assessment and Plan (1) Acute respiratory failure: Qualifiers: Respiratory failure complication: unspecified whether with hypoxia or hypercapnia Qualified Code(s): J96.00 - Acute respiratory failure, unspecified whether with hypoxia or hypercapnia Code(s): J96.00 - Acute respiratory failure, unspecified whether with hypoxia or hypercapnia Status: Acute Assessment and Plan: 04/14: FIO2 30%, TV 300, rate 14; AB.504, 38.9, 69.2, 93.2% I/O 02/11 1482/1175 Initially on cefepime and vanc Levaquin due to stenotrophomonas in sputum Continue bronchodilators Encephalopathy is problematic, re: weaning Plan trach and PEG prior to transfer to LTAC 02/13/20 14:56 Healthcare associated pneumonia versus covid 19. Patient was placed in ICU . she is intubated placed on a ventilator. She is listed as a full code. Ventilator settings per hosted services analyst. Patient is on vancomycin cefepime and azithromycin for the possibility healthcare associated pneumonia. She is also placed on Decadron due to the COVID-19. No antiviral at this time. Due to the acute renal failure and elevated liver enzymes. 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 department with respiratory distress and emergency department patient was intubated as patient was quite hypoxic, and transferred to ICU, suspect patient may have healthcare associated pneumonia as patient was recently discharged from the hospital as well as patient is positive COVID-19, has sepsis most likely secondary to healthcare associated pneumonia patient is being treated with Broad-spectrum antibiotics vancomycin cefepime, urine culture is growing Klebsiella pneumonia sensitive to cefepime, patient was started on tube feeding, patient still on pressors, patient blood sugar were elevated patient was started on IV insulin infusion to bring the blood sugar under control though patient was not in DKA, on 02/01 patient was given trial weaning off the vent however patient became quite tachypneic and hypoxic, patient was sedated and vent was resumed. will continue to monitor prognosis is poor. on 02/05 patient been off sedation for 72 hours however patient was not responding, patient opens her eyes but does not follow any instruction CT scan of the head was negative for any acute injury, patient was seen Dr. Morley EEG was not conclusive and suggested most likely has organic and or metabolic cause of her encephalopathy. Patient sputum culture grew Stenotrophomonas was seen by Dr. Narayan suspect most likely colonization rather than true infection recommend continue levaquin 7 days completed, recommended completed the 10 days course of dexamethasone, unable to wean the patient off ventilator, patient will need PEG and trach to transfer the patient to LTAC. (2) Pneumonia: Qualifiers: Laterality: unspecified laterality Lung location: unspecified part of lung Pneumonia type: due to unspecified organism Qualified Code(s): J18.9 - Pneumonia, unspecified organism Code(s): J18.9 - Pneumonia, unspecified organism Status: Acute Assessment and Plan: Levaquin day 6 (started 02/08/20) (3) Encephalopathy acute: Code(s): G93.40 - Encephalopathy, unspecified Status: Acute Assessment and Plan: Sepsis with underlying encephalomalacia CT brain 02/10 w/o acute change EEG c/w encephalopathy, w/o sign of sz Ammonia and TSH WNL Sedative on hold Responds to noxious stimuli but w/o directed response WBC and temp remain SNL Px poor Further evaluation (eg, LP) would be unlikely to change therapy (4) COVID-19: Code(s): U07.1 - COVID-19 Status: Acute Assessment and Plan: POSITIVE at OK prior to admission Completed dexamethasone 02/07 Completed remdesivir that was initiated 02/08 Recevied 1 U convalescent plasma 01/29 Inflammatory markers (5) Se
[2020-02-13 17:43] LABS: Glucose Point of Care 114 (65-105)
[2020-02-13 23:01] LABS: Glucose Point of Care 122 (65-105)
[2020-02-14] VITALS (22 sets, daily range): BP systolic 90–120; BP diastolic 43–64; PULSE 42–113; RESP 17–31; TEMP 36.3–36.8; O2SAT 7–99
[2020-02-14 01:16] LABS: Glucose Point of Care 110 (65-105)
[2020-02-14 05:08] LABS: Basophils Percent Auto 0.3 % (0.2-1.2); Eosinophils Absolute Auto 0.2 K/mm3 (0-0.3); Eosinophils Percent Auto 1.5 % (0-4.4); Hematocrit 27.5 % (37.0-47.0); Hemoglobin 8.3 g/dL (12.0-15.0); Immature Granulocyte Absolute 0.18 K/mm3 (0.00-0.031); Immature Granulocyte Percent A 1.6 % (0-0.5); Lymphocytes Percent Auto 13.5 % (18.3-44.2); Mean Corpuscular HGB Conc 30.2 g/dl (32-36); Mean Corpuscular Hemoglobin 25.9 pg (26-34); Mean Corpuscular Volume 85.9 fl (80-100); Mean Platelet Volume 10.4 fl (7.4-10.4); Monocytes Absolute Auto 0.8 K/mm3 (0.1-0.6); Monocytes Percent Auto 6.9 % (2.6-8.5); Neutrophils Absolute Auto 8.4 K/mm3 (1.3-6.7); Neutrophils Percent Auto 76.2 % (45.5-73.1); Platelet Count Result 229 k/mm3 (150-375); Red Cell Distribution Width 17.4 % (11.5-14.5); White Blood Count 11.1 K/mm3 (4.5-10.0)
[2020-02-14 05:10] LABS: Alanine Aminotransferase 38 U/L (4-35); Albumin Level 2.7 g/dL (3.5-5.1); Alkaline Phosphatase 91 U/L (38-126); Anion Gap 3 mmol/L (8-16); Aspartate Amino Transferase 31 U/L (14-36); Bilirubin,Total 0.3 mg/dL (0.2-1.3); Blood Urea Nitrogen 23 mg/dL (7-17); Calcium 9.2 mg/dL (8.4-10.2); Carbon Dioxide 34 mmol/L (22-30); Chloride 101 mmol/L (98-107); Estimated CRCL calculation 48 ml/min; Estimated Glomerular Filt Rate > 60; Glucose 93 mg/dL (65-105); Phosphorus 5.4 mg/dL (2.5-4.5); Potassium 3.6 mmol/L (3.4-5.0); Sodium 138 mmol/L (137-145)
[2020-02-14 05:44] LABS: Alveolar/Arterial O2 Gradient 97.7 mmHg; Base Excess ABG 4.9 mEq/l (+/-2.0); Fractional Inspired Oxygen 30 %; HCO3 ABG 28.7 mEq/l (22.0-26.0); Oxygen Content ABG 14.4 %vol (16.0-22.0); Oxygen Saturation ABG 95.2 % (95.0-100.0); PCO2 ABG 39.3 mmHg (35.0-45.0); PO2 FiO2 Ratio Arterial Blood 2.33 %; pH ABG 7.481 (7.350-7.450)
[2020-02-14 05:45] LABS: Arterial Blood Gas PEEP 5 cmH2O; Arterial Blood Gas Ventilator rate 14 /MIN; Device VENTILATOR; Modified Allen's Test Unable to perform; Site Drawn LEFT RADIAL
[2020-02-14 05:46] LABS: Arterial Blood Gas Tidal Volume 300 ml
[2020-02-14 05:49] LABS: Vitamin D 25 Hydroxy 20.2 ng/mL
[2020-02-14] MEDS: CENTRAL LINE FLUSH 10 ML IV PUSH ×3 (06:00→20:42)
[2020-02-14] MEDS: FAMOTIDINE 20 MG/2 ML VIAL IV PUSH ×2 (08:28→20:39)
[2020-02-14] MEDS: INSULIN DETEMIR 100 UNITS/ML 35 UNITS SUB-Q (08:28)
[2020-02-14] MEDS: ENOXAPARIN 40 MG/0.4 ML SYRINGE SUB-Q (08:28)
--- NOTE | 2020-02-14 10:13 | WPDINTPN ---
Progress Note: A&P Assessment and Plan (1) Acute respiratory failure: Qualifiers: Respiratory failure complication: unspecified whether with hypoxia or hypercapnia Qualified Code(s): J96.00 - Acute respiratory failure, unspecified whether with hypoxia or hypercapnia <Na Del Rosario PA-C - Last Filed: 02/14/20 10:32> Assessment and Plan: Acute respiratory failure secondary to healthcare associated pneumonia vs COVID, questionable underlying COPD. -COVID + outpt prior to admission - Intubated in the emergency department on 01/28/2020. -Ventilated, no sedation -Trial on bipap 02/13 underway -CXR stable -Has had 9 doses of levoquin thus far -Continues to be encephalopathic -Possible Trach/peg if unable to wean. LTAC <YOSI Danielson Last Filed: 02/14/20 10:32> (2) Pneumonia: Qualifiers: Laterality: unspecified laterality Lung location: unspecified part of lung Pneumonia type: due to unspecified organism Qualified Code(s): J18.9 - Pneumonia, unspecified organism <Na Del Rosario PA-C - Last Filed: 02/14/20 10:32> Assessment and Plan: Sputum culture growing stenotrophomonas maltophilia, susceptible to levofloxacin. - Completed 9 doses of levoquin thus far -Dr. Narayan (Infectious Disease) was consulted and his input is appreciated. He suspects this may be a colonizer however cannot rule out bacterial superinfection and suggests a 7 day course of levofloxacin. - He also recommended completing a 10 day course of dexamethasone which is now complete. - WBC improving <Na Del Rosario PA-C - Last Filed: 02/14/20 10:32> (3) Encephalopathy acute: Assessment and Plan: Unclear etiology at this time -could be due to COVID-19 complications -Sepsis with underlying encephalomalacia -Repeat brain CT 02/10 neg for acute pathology -initial head CT 02/04 negative for acute pathology -EEG c/w encephalopathy without signs of sz. appreciate neurology's recommendations -TSH, Ammonia, blood cultures WNL <YOSI Danielson Last Filed: 02/14/20 10:32> (4) Sepsis: Qualifiers: Acute respiratory failure type: unspecified Sepsis acute organ dysfunction status: with acute organ dysfunction Sepsis type: sepsis due to unspecified organism Severe sepsis acute organ dysfunction type: acute respiratory failure Severe sepsis shock status: with septic shock Qualified Code(s): A41.9 - Sepsis, unspecified organism; R65.21 - Severe sepsis with septic shock; J96.00 - Acute respiratory failure, unspecified whether with hypoxia or hypercapnia <Na Del Rosario PA-C - Last Filed: 02/14/20 10:32> Assessment and Plan: Secondary to COVID/PNA - Off Levophed 02/13 -ventilated without sedation, trial of bipap -afebrile, WBC improving - blood cultures x4 negative -sputum sample growing stenotrophomonas, Levaquin as above -appreciate infectious disease recommendations . <Na Del Rosario PA-C - Last Filed: 02/14/20 10:32> (5) DM2 (diabetes mellitus, type 2): Qualifiers: Diabetes mellitus complication status: with hyperglycemia Diabetes mellitus parts counterman insulin use: with half-way use Qualified Code(s): E11.65 - Type 2 diabetes mellitus with hyperglycemia; Z79.4 - parts counterman (current) use of insulin <Na Del Rosario PA-C - Last Filed: 02/14/20 10:32> Assessment and Plan: Last glucose 110 but has been elevated up to 400+ while on steroids -A1c 01/28 10.9, uncontrolled -worse with Decadron, now discontinued -continue Levemir at 35U <Na Del Rosario PA-C - Last Filed: 02/14/20 10:32> (6) COVID-19: Assessment and Plan: SARS-CoV-2 PCR was reportedly positive at her [facility] living, the date of testing not available. - Continue airborne, contact, and droplet isolation. - Dexamethasone completed 02/06 - Remdesivir started 01/29 once her renal function improved and was completed - Receiv
[2020-02-14 12:23] LABS: Glucose Point of Care 73 (65-105)
--- NOTE | 2020-02-14 13:44 | PCDIET ---
ICU Rounding Note: Patient tolerating Glucerna 1.2 at 50mL/hr goal rate. Possible plan to extubate today. Last recorded weight is 75.5kg which is increased from last review. +I/O. Bowel Motility: +BM today. Labs Reviewed: Hgb (8.3), Hct (27.5), Alb (2.7), PO4 (5.4) Meds Noted: Albuterol, Pepcid, Levemir, Atrovent, Levophed, Levaquin Additional Notes: Friction area to buttocks. Following daily in ICU rounds. Assessing/reassessing every Friday/Friday.
[2020-02-14 17:10] LABS: Glucose Point of Care 78 (65-105)
--- NOTE | 2020-02-14 17:47 | PM.IMPN ---
Progress Note: A&P Assessment and Plan (1) Acute respiratory failure: Qualifiers: Respiratory failure complication: unspecified whether with hypoxia or hypercapnia Qualified Code(s): J96.00 - Acute respiratory failure, unspecified whether with hypoxia or hypercapnia Code(s): J96.00 - Acute respiratory failure, unspecified whether with hypoxia or hypercapnia Status: Acute Assessment and Plan: Acute respiratory failure secondary to healthcare associated pneumonia vs COVID, questionable underlying COPD. -COVID + outpt prior to admission - Intubated in the emergency department on 01/28/2020. -Ventilated, no sedation -Trial on bipap 02/13 underway -CXR stable -Has had 9 doses of levoquin thus far -Continues to be encephalopathic -Possible Trach/peg if unable to wean. LTAC 02/14/20 17:47 Healthcare associated pneumonia versus covid 19. Patient was placed in ICU . she is intubated placed on a ventilator. She is listed as a full code. Ventilator settings per stamp collector. Patient is on vancomycin cefepime and azithromycin for the possibility healthcare associated pneumonia. She is also placed on Decadron due to the COVID-19. No antiviral at this time. Due to the acute renal failure and elevated liver enzymes. 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 department with respiratory distress and emergency department patient was intubated as patient was quite hypoxic, and transferred to ICU, suspect patient may have healthcare associated pneumonia as patient was recently discharged from the hospital as well as patient is positive COVID-19, has sepsis most likely secondary to healthcare associated pneumonia patient is being treated with Broad-spectrum antibiotics vancomycin cefepime, urine culture is growing Klebsiella pneumonia sensitive to cefepime, patient was started on tube feeding, patient still on pressors, patient blood sugar were elevated patient was started on IV insulin infusion to bring the blood sugar under control though patient was not in DKA, on 02/01 patient was given trial weaning off the vent however patient became quite tachypneic and hypoxic, patient was sedated and vent was resumed. will continue to monitor prognosis is poor. on 02/05 patient been off sedation for 72 hours however patient was not responding, patient opens her eyes but does not follow any instruction CT scan of the head was negative for any acute injury, patient was seen Dr. Morley EEG was not conclusive and suggested most likely has organic and or metabolic cause of her encephalopathy. Patient sputum culture grew Stenotrophomonas was seen by Dr. Narayan suspect most likely colonization rather than true infection recommend continue levaquin 7 days completed, recommended completed the 10 days course of dexamethasone, today again patient is given trial of SBT in hope to wean the patient off the ventilator, if unable to wean the patient off ventilator, prognosis is poor, patient will need PEG and trach to transfer the patient to LTAC (2) Pneumonia: Qualifiers: Laterality: unspecified laterality Lung location: unspecified part of lung Pneumonia type: due to unspecified organism Qualified Code(s): J18.9 - Pneumonia, unspecified organism Code(s): J18.9 - Pneumonia, unspecified organism Status: Acute Assessment and Plan: Sputum culture growing stenotrophomonas maltophilia, susceptible to levofloxacin. - Completed 9 doses of levoquin thus far -Dr. Narayan (Infectious Disease) was consulted and his input is appreciated. He suspects this may be a colonizer however cannot rule out bacterial superinfection and suggests a 7 day course of levofloxacin. - He also recommended completing a 10 day course of dexamethasone which is now complete. - WBC improving (3) Encephalopathy acute: Code(s): G93.40 - Encephalopathy, unspecified Status: Acu
[2020-02-14 23:52] LABS: Glucose Point of Care 80 (65-105)
[2020-02-15] VITALS (18 sets, daily range): BP systolic 88–103; BP diastolic 41–67; PULSE 72–94; RESP 16–29; TEMP 36–37.2; O2SAT 94–99
--- NOTE | 2020-02-15 00:15 | PC.NURSE ---
Levemir held. Glucose remains 70-80mg/dl
[2020-02-15 05:31] LABS: Basophils Percent Auto 0.2 % (0.2-1.2); Eosinophils Absolute Auto 0.2 K/mm3 (0-0.3); Eosinophils Percent Auto 1.9 % (0-4.4); Hematocrit 27.2 % (37.0-47.0); Hemoglobin 8.2 g/dL (12.0-15.0); Immature Granulocyte Absolute 0.13 K/mm3 (0.00-0.031); Immature Granulocyte Percent A 1.3 % (0-0.5); Lymphocytes Absolute Auto 1.62 K/mm3 (0.9-3.2); Lymphocytes Percent Auto 16.6 % (18.3-44.2); Mean Corpuscular HGB Conc 30.1 g/dl (32-36); Mean Corpuscular Hemoglobin 25.6 pg (26-34); Mean Platelet Volume 9.8 fl (7.4-10.4); Monocytes Absolute Auto 0.8 K/mm3 (0.1-0.6); Monocytes Percent Auto 7.8 % (2.6-8.5); Neutrophils Percent Auto 72.2 % (45.5-73.1); Platelet Count Result 230 k/mm3 (150-375); Red Cell Distribution Width 17.5 % (11.5-14.5); White Blood Count 9.8 K/mm3 (4.5-10.0)
[2020-02-15 05:32] LABS: D Dimer 1.22 ug/mL (<0.48)
[2020-02-15] MEDS: CENTRAL LINE FLUSH 10 ML IV PUSH ×3 (05:37→19:43)
[2020-02-15 05:48] LABS: Alveolar/Arterial O2 Gradient 99.7 mmHg; Base Excess ABG 3.5 mEq/l (+/-2.0); Fractional Inspired Oxygen 30 %; HCO3 ABG 27.2 mEq/l (22.0-26.0); Oxygen Content ABG 13.3 %vol (16.0-22.0); PO2 ABG 69.6 mmHg (80.0-100.0); PO2 FiO2 Ratio Arterial Blood 2.32 %; Total Hemoglobin 10.2 g/dL (12.0-18.0); pH ABG 7.473 (7.350-7.450)
[2020-02-15 05:49] LABS: Device VENTILATOR; Modified Allen's Test Unable to perform; Site Drawn RIGHT RADIAL
[2020-02-15 05:49] LABS: Potassium 3.7 mmol/L (3.4-5.0)
[2020-02-15 05:50] LABS: Arterial Blood Gas PEEP 5 cmH2O; Arterial Blood Gas Tidal Volume 300 ml; Arterial Blood Gas Vent Mode ASSIST CONTROL; Arterial Blood Gas Ventilator rate 14 /MIN
[2020-02-15 06:16] LABS: Alanine Aminotransferase 35 U/L (4-35); Albumin Level 2.7 g/dL (3.5-5.1); Alkaline Phosphatase 91 U/L (38-126); Anion Gap 5 mmol/L (8-16); Aspartate Amino Transferase 33 U/L (14-36); Bilirubin,Total 0.3 mg/dL (0.2-1.3); Blood Urea Nitrogen 26 mg/dL (7-17); CRP 7.7 mg/dL (<1.0); Calcium 9.6 mg/dL (8.4-10.2); Carbon Dioxide 35 mmol/L (22-30); Chloride 102 mmol/L (98-107); Estimated CRCL calculation 39 ml/min; Estimated Glomerular Filt Rate 49; Glucose 80 mg/dL (65-105); Lactate Dehydrogenase 471 U/L (313-618); Sodium 142 mmol/L (137-145)
[2020-02-15] MEDS: ENOXAPARIN 40 MG/0.4 ML SYRINGE SUB-Q (08:27)
[2020-02-15] MEDS: FAMOTIDINE 20 MG/2 ML VIAL IV PUSH ×2 (08:27→19:43)
--- NOTE | 2020-02-15 12:26 | PCDIET ---
Nutrition Follow-Up Complete: Nutrition Diagnosis: Inadequate oral intake related to oral intubation as evidenced by need for tube feeding. Nutrition Goal: Patient to meet estimated nutritional needs. Goal met. Patient tolerating Glucerna 1.2 at goal rate of 50mL/hr with 50mL water flush every 4 hours. No issues reported by nursing. Last recorded weight is 74.7 kg which is relatively stable. Bowel Motility: BM x 1 today. Labs Reviewed: Hgb (8.2), Hct (27.2), BUN (26), Cr (1.1), Alb (2.7) Meds Noted: Albuterol, Pepcid, Atrovent, Levaquin, Levophed Additional Notes: Friction shear documented to buttock. No new recommendations at this time. Will continue to monitor with same goal. Nutrition Monitoring and Evaluation: Follow up every Friday/Friday. Follow daily in ICU rounds.
[2020-02-15 13:55] LABS: Glucose Point of Care 94 (65-105)
[2020-02-15 14:36] LABS: Alveolar/Arterial O2 Gradient 90.9 mmHg; Base Excess ABG 6.4 mEq/l (+/-2.0); Fractional Inspired Oxygen 30 %; HCO3 ABG 30.3 mEq/l (22.0-26.0); Oxygen Content ABG 12.3 %vol (16.0-22.0); Oxygen Saturation ABG 95.9 % (95.0-100.0); Oxyhemoglobin 93.5 % THb (90.0-100.0); PCO2 ABG 41.2 mmHg (35.0-45.0); PO2 ABG 74.6 mmHg (80.0-100.0); PO2 FiO2 Ratio Arterial Blood 2.49 %; Total Hemoglobin 9.3 g/dL (12.0-18.0); pH ABG 7.485 (7.350-7.450)
[2020-02-15 14:37] LABS: Arterial Blood Gas PEEP 5 cmH2O; Arterial Blood Gas Vent Mode PRESSURE SUPPORT; Arterial Blood Gas Ventilator rate 4 /MIN; Device VENTILATOR; Modified Allen's Test Pass; Peak Inspiratory Pressure 8 cmH2O; Site Drawn RIGHT RADIAL
--- NOTE | 2020-02-15 15:02 | WPDINTPN ---
Progress Note: A&P Assessment and Plan (1) Acute respiratory failure: Qualifiers: Respiratory failure complication: unspecified whether with hypoxia or hypercapnia Qualified Code(s): J96.00 - Acute respiratory failure, unspecified whether with hypoxia or hypercapnia Code(s): J96.00 - Acute respiratory failure, unspecified whether with hypoxia or hypercapnia Status: Acute Assessment and Plan: Acute Respiratory failure secondary to healthcare associated pneumonia versus COVID-19, ? questionable baseline COPD - patient was intubated on 01/28/2020 in the ER - chest x-ray and ABGs reviewed, patient seems to be doing better respiratory raines, but her mental status is preventing extubation. - Currently on AVAPS , peep of 5, 30% FiO2 -patient has tolerated pressure support ventilation for 2 days consecutively, has done significantly well. Discussed with Julia WATTS, I did discuss in details regarding updating the patient and if she fails, MAC wanted us to reintubate the patient with the caveat that she will ultimately get a tracheostomy and a PEG tube placement. -sputum grew stenotrophomonas 01/29/2020: Patient status post Levaquin - continue Bronchodilators - PATIENT IS OFF ALL SEDATION for greater than 1 week (2) Pneumonia: Qualifiers: Laterality: unspecified laterality Lung location: unspecified part of lung Pneumonia type: due to unspecified organism Qualified Code(s): J18.9 - Pneumonia, unspecified organism Code(s): J18.9 - Pneumonia, unspecified organism Status: Acute Assessment and Plan: 01/29/2020 SPUTUM CULTURES GROWING STENOTROPHOMONAS MALTOPHILIA: Status post Levaquin - appreciate infectious disease evaluation recommendations (3) Sepsis: Qualifiers: Sepsis type: sepsis due to unspecified organism Sepsis acute organ dysfunction status: with acute organ dysfunction Severe sepsis acute organ dysfunction type: acute respiratory failure Acute respiratory failure type: unspecified Severe sepsis shock status: with septic shock Qualified Code(s): A41.9 - Sepsis, unspecified organism; R65.21 - Severe sepsis with septic shock; J96.00 - Acute respiratory failure, unspecified whether with hypoxia or hypercapnia Code(s): A41.9 - Sepsis, unspecified organism Status: Acute Assessment and Plan: Sepsis secondary to healthcare associated pneumonia and UTI urine cultures growing Klebsiella. Sputum culture grew stenotrophonas. infectious disease service is following. Status post Levaquin blood cultures negative x2 lactic acid level has normalized now - on and off low-dose Levophed. cautious IV fluids due to COVID-19 - leukocytosis improving (4) Shock: Code(s): R57.9 - Shock, unspecified Status: Acute Assessment and Plan: shock with unclear etiology with septic versus secondary to sedation versus hypovolemia Off all pressors for a while blood pressures are stable (5) COVID-19: Code(s): U07.1 - COVID-19 Status: Acute Assessment and Plan: SARS-CoV-2 PCR was positive at [facility]. Patient is in Airborne, Droplet and Contact Isolation dexamethasone started on 01/28 completed remdisivir which was started on 01/29. 1 unit of Convalscent plasma on 01/29 (6) Acute hypernatremia: Code(s): E87.0 - Hyperosmolality and hypernatremia Status: Resolved Assessment and Plan: Hypernatremia and hyperchloremia suggestive of intravascular volume depletion sodium levels improving and hypernatremia has resolved now. (7) Elevated transaminase level: Code(s): R74.01 - Elevation of levels of liver transaminase levels Status: Acute Assessment and Plan: ultrasound of right upper quadrant showed hepatic steatosis (8) JOSE ANGEL (acute kidney injury): Code(s): N17.9 - Acute kidney failure, unspecified Status: Acute Assessment and Plan: JOSE ANGEL likely prer
[2020-02-15 18:06] LABS: Glucose Point of Care 85 (65-105)
[2020-02-15] MEDS: hetaSTARCH 6%/NACL 500 ML 250 ML IV CONT (19:37)
[2020-02-15] MEDS: DEXTROSE 5% 1,000 ML 1,000 ML 100 ML IVPB (23:12)
[2020-02-15] MEDS: SODIUM CHLORIDE 0.9% IV 500 ML IV CONT (23:12)
[2020-02-15 23:29] LABS: Glucose Point of Care 60 (65-105)
[2020-02-16] VITALS (19 sets, daily range): BP systolic 84–123; BP diastolic 37–65; PULSE 53–84; RESP 14–27; TEMP 36.2–36.8; O2SAT 96–100
[2020-02-16] MEDS: NOREPINEPHRINE 8 MG/D5W 250 ML 8 MG/250 ML BAG 9.38 MG IV CONT (01:31)
[2020-02-16 01:41] LABS: Glucose Point of Care 85 (65-105)
[2020-02-16] MEDS: CENTRAL LINE FLUSH 10 ML IV PUSH ×3 (05:12→21:23)
[2020-02-16 05:28] LABS: Hematocrit 26.8 % (37.0-47.0); Hemoglobin 8.2 g/dL (12.0-15.0); Mean Corpuscular HGB Conc 30.6 g/dl (32-36); Mean Corpuscular Hemoglobin 26.3 pg (26-34); Mean Corpuscular Volume 85.9 fl (80-100); Mean Platelet Volume 9.5 fl (7.4-10.4); Platelet Count Result 204 k/mm3 (150-375); Red Blood Count 3.12 M/mm3 (4.2-5.4); Red Cell Distribution Width 17.5 % (11.5-14.5); White Blood Count 9.8 K/mm3 (4.5-10.0)
[2020-02-16 05:38] LABS: Anion Gap 3 mmol/L (8-16); Blood Urea Nitrogen 19 mg/dL (7-17); Calcium 8.2 mg/dL (8.4-10.2); Carbon Dioxide 32 mmol/L (22-30); Chloride 106 mmol/L (98-107); Estimated CRCL calculation 48 ml/min; Estimated Glomerular Filt Rate > 60; Glucose 139 mg/dL (65-105); Potassium 3.5 mmol/L (3.4-5.0); Sodium 141 mmol/L (137-145)
--- NOTE | 2020-02-16 08:21 | WPDINTPN ---
Progress Note: A&P Assessment and Plan (1) Acute respiratory failure: Qualifiers: Respiratory failure complication: unspecified whether with hypoxia or hypercapnia Qualified Code(s): J96.00 - Acute respiratory failure, unspecified whether with hypoxia or hypercapnia Code(s): J96.00 - Acute respiratory failure, unspecified whether with hypoxia or hypercapnia Status: Acute Assessment and Plan: Acute respiratory failure secondary to healthcare associated pneumonia vs COVID, questionable underlying COPD. -COVID + outpt prior to admission - Intubated in the emergency department on 01/28/2020. -Trial on bipap 02/13. Extubated 02/15/2020. -CXR stable 02/12/2020 -Levaquin course completed. -Continues to be encephalopathic but did verbally responded nursing staff today. (2) Pneumonia: Qualifiers: Laterality: unspecified laterality Lung location: unspecified part of lung Pneumonia type: due to unspecified organism Qualified Code(s): J18.9 - Pneumonia, unspecified organism Code(s): J18.9 - Pneumonia, unspecified organism Status: Acute Assessment and Plan: Sputum culture growing stenotrophomonas maltophilia, susceptible to levofloxacin. -Dr. Narayan (Infectious Disease) was consulted and his input is appreciated. He suspects this may be a colonizer however cannot rule out bacterial superinfection and suggests a 7 day course of levofloxacin which has been completed. - He also recommended completing a 10 day course of dexamethasone which is now complete. - WBC normalized (3) Sepsis: Qualifiers: Acute respiratory failure type: unspecified Sepsis acute organ dysfunction status: with acute organ dysfunction Sepsis type: sepsis due to unspecified organism Severe sepsis acute organ dysfunction type: acute respiratory failure Severe sepsis shock status: with septic shock Qualified Code(s): A41.9 - Sepsis, unspecified organism; R65.21 - Severe sepsis with septic shock; J96.00 - Acute respiratory failure, unspecified whether with hypoxia or hypercapnia Code(s): A41.9 - Sepsis, unspecified organism Status: Acute Assessment and Plan: Secondary to COVID/PNA - Off Levophed 02/13. The patient back on Levophed 02/15/2020. -afebrile, WBC normal on - blood cultures x4 negative -sputum sample growing stenotrophomonas, Levaquin as above -appreciate infectious disease recommendations . (4) Shock: Code(s): R57.9 - Shock, unspecified Status: Acute Assessment and Plan: -The patient has been placed back on Levophed. -Will check cheetah score and random cortisol level. -if no explanation for the patient's resistant hypotension patient may benefit from midodrine. (5) COVID-19: Code(s): U07.1 - COVID-19 Status: Acute Assessment and Plan: SARS-CoV-2 PCR was reportedly positive at her half-way, the date of testing not available. - Continue airborne, contact, and droplet isolation. - Dexamethasone completed 02/06 - Remdesivir started 01/29 once her renal function improved and was completed - Received 1 unit convalescent plasma on 01/29. (6) Encephalopathy acute: Code(s): G93.40 - Encephalopathy, unspecified Status: Acute Assessment and Plan: Unclear etiology at this time -could be due to COVID-19 complications -Sepsis with underlying encephalomalacia -Repeat brain CT 02/10 neg for acute pathology -initial head CT 02/04 negative for acute pathology -EEG c/w encephalopathy without signs of sz. appreciate neurology's recommendations -TSH, Ammonia, blood cultures WNL (7) DM2 (diabetes mellitus, type 2): Qualifiers: Diabetes mellitus complication status: with hyperglycemia Diabetes mellitus terminal operator insulin use: with penitentiary use Qualified Code(s): E11.65 - Type 2 diabetes mellitus with hyperglycemia; Z79.4 - nursing home (current) use of insulin Code(s): E11.9 -
[2020-02-16] MEDS: ENOXAPARIN 40 MG/0.4 ML SYRINGE SUB-Q (08:41)
[2020-02-16] MEDS: FAMOTIDINE 20 MG/2 ML VIAL IV PUSH ×2 (08:41→21:22)
[2020-02-16] MEDS: SODIUM CHLORIDE 0.9% IV 500 ML 999 ML IV CONT (10:30)
[2020-02-16] MEDS: DEXTROSE 5% 1,000 ML 1,000 ML 75 ML IVPB (10:30)
[2020-02-16 12:49] LABS: Glucose Point of Care 128 (65-105)
[2020-02-16 19:15] LABS: Glucose Point of Care 145 (65-105)
[2020-02-17] VITALS (13 sets, daily range): BP systolic 95–113; BP diastolic 41–54; PULSE 66–95; RESP 18–30; TEMP 36–36.5; O2SAT 89–99
--- NOTE | 2020-02-17 01:40 | PC.NURSE ---
This patient, Linette Vásquez, was transferred to [facility] as ICU pt on 02/17/20 at 0120. Personal belongings sent with patient. Report given to Ellis Villaseñor RN. Appropriate documentation sent with patient.
[2020-02-17 02:59] LABS: Glucose Point of Care 116 (65-105)
[2020-02-17 06:50] LABS: CRP 6.5 mg/dL (<1.0); Lactate Dehydrogenase 447 U/L (313-618)
[2020-02-17 07:28] LABS: Glucose Point of Care 135 (65-105)
[2020-02-17] MEDS: FAMOTIDINE 20 MG/2 ML VIAL IV PUSH ×2 (08:27→20:55)
[2020-02-17] MEDS: ENOXAPARIN 40 MG/0.4 ML SYRINGE SUB-Q (08:27)
[2020-02-17] MEDS: MIDODRINE HCL 10 MG TABLET FEED TUBE ×3 (10:26→17:49)
[2020-02-17] MEDS: CENTRAL LINE FLUSH 10 ML IV PUSH ×2 (12:51→20:55)
[2020-02-17 14:06] LABS: Glucose Point of Care 147 (65-105)
--- NOTE | 2020-02-17 15:24 | WPDINTPN ---
Progress Note: A&P Assessment and Plan (1) Acute respiratory failure: Qualifiers: Respiratory failure complication: unspecified whether with hypoxia or hypercapnia Qualified Code(s): J96.00 - Acute respiratory failure, unspecified whether with hypoxia or hypercapnia Code(s): J96.00 - Acute respiratory failure, unspecified whether with hypoxia or hypercapnia Status: Acute Assessment and Plan: Acute Respiratory failure secondary to healthcare associated pneumonia versus COVID-19, ? questionable baseline COPD - patient was intubated on 01/28/2020 in the ER -extubated on 02/15/2020 -on 1 L nasal cannula good O2 sats -sputum grew stenotrophomonas 01/29/2020: Patient status post Levaquin - continue Bronchodilators (2) Pneumonia: Qualifiers: Laterality: unspecified laterality Lung location: unspecified part of lung Pneumonia type: due to unspecified organism Qualified Code(s): J18.9 - Pneumonia, unspecified organism Code(s): J18.9 - Pneumonia, unspecified organism Status: Acute Assessment and Plan: 01/29/2020 SPUTUM CULTURES GROWING STENOTROPHOMONAS MALTOPHILIA: Status post Levaquin - appreciate infectious disease evaluation recommendations (3) Sepsis: Qualifiers: Sepsis type: sepsis due to unspecified organism Sepsis acute organ dysfunction status: with acute organ dysfunction Severe sepsis acute organ dysfunction type: acute respiratory failure Acute respiratory failure type: unspecified Severe sepsis shock status: with septic shock Qualified Code(s): A41.9 - Sepsis, unspecified organism; R65.21 - Severe sepsis with septic shock; J96.00 - Acute respiratory failure, unspecified whether with hypoxia or hypercapnia Code(s): A41.9 - Sepsis, unspecified organism Status: Acute Assessment and Plan: Resolved (4) Shock: Code(s): R57.9 - Shock, unspecified Status: Acute Assessment and Plan: shock with unclear etiology with septic versus secondary to sedation versus hypovolemia Off all pressors since evening of 02/16/2020 -started on midodrine, blood pressures are stable (5) COVID-19: Code(s): U07.1 - COVID-19 Status: Acute Assessment and Plan: SARS-CoV-2 PCR was positive at care home. Patient is in Airborne, Droplet and Contact Isolation Completed course of Remdesivir, dexamethasone 1 unit of Convalscent plasma on 11/8 (6) Acute hypernatremia: Code(s): E87.0 - Hyperosmolality and hypernatremia Status: Resolved Assessment and Plan: Resolved (7) Elevated transaminase level: Code(s): R74.01 - Elevation of levels of liver transaminase levels Status: Acute Assessment and Plan: ultrasound of right upper quadrant showed hepatic steatosis (8) JOSE ANGEL (acute kidney injury): Code(s): N17.9 - Acute kidney failure, unspecified Status: Acute Assessment and Plan: Resolved JOSE ANGEL likely prerenal from sepsis and hypovolemia Acute kidney injury resolved now. US - Sonographically unremarkable kidneys. Monitor creatinine electrolytes and urine output (9) Encephalopathy acute: Code(s): G93.40 - Encephalopathy, unspecified Status: Acute Assessment and Plan: persists: likely toxic metabolic encephalopathy unchanged head CT from past - could be related to septic shock, hypernatremia, COVID-19 pneumonia a previous history of encephalomalacia - EEG consistent with encephalopathy, no obvious seizure activity, - no other recommendations from neurology at this point -TSH, ammonia, blood cultures within normal limits (10) DM2 (diabetes mellitus, type 2): Qualifiers: Diabetes mellitus superintendent terminal insulin use: with custodial use Diabetes mellitus complication status: with hyperglycemia Qualified Code(s): E11.65 - Type 2 diabetes mellitus with hyperglycemia; Z79.4 - snf (current) use of insulin Code(s):
--- NOTE | 2020-02-17 15:55 | PM.IMPN ---
Progress Note: A&P Assessment and Plan (1) Acute respiratory failure: Qualifiers: Respiratory failure complication: unspecified whether with hypoxia or hypercapnia Qualified Code(s): J96.00 - Acute respiratory failure, unspecified whether with hypoxia or hypercapnia Code(s): J96.00 - Acute respiratory failure, unspecified whether with hypoxia or hypercapnia Status: Acute Assessment and Plan: Acute respiratory failure secondary to healthcare associated pneumonia vs COVID, questionable underlying COPD. -COVID + outpt prior to admission - Intubated in the emergency department on 01/28/2020. -Trial on bipap 02/13. Extubated 02/15/2020. -CXR stable 02/12/2020 -Levaquin course completed. -Continues to be encephalopathic but did verbally responded nursing staff today. 02/17/20 15:55 Healthcare associated pneumonia versus covid 19. Patient was placed in ICU . she is intubated placed on a ventilator. She is listed as a full code. Ventilator settings per java developer consultant. Patient is on vancomycin cefepime and azithromycin for the possibility healthcare associated pneumonia. She is also placed on Decadron due to the COVID-19. No antiviral at this time. Due to the acute renal failure and elevated liver enzymes. 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 department with respiratory distress and emergency department patient was intubated as patient was quite hypoxic, and transferred to ICU, suspect patient may have healthcare associated pneumonia as patient was recently discharged from the hospital as well as patient is positive COVID-19, has sepsis most likely secondary to healthcare associated pneumonia patient is being treated with Broad-spectrum antibiotics vancomycin cefepime, urine culture is growing Klebsiella pneumonia sensitive to cefepime, patient was started on tube feeding, patient still on pressors, patient blood sugar were elevated patient was started on IV insulin infusion to bring the blood sugar under control though patient was not in DKA, on 02/01 patient was given trial weaning off the vent however patient became quite tachypneic and hypoxic, patient was sedated and vent was resumed. will continue to monitor prognosis is poor. on 02/05 patient been off sedation for 72 hours however patient was not responding, patient opens her eyes but does not follow any instruction CT scan of the head was negative for any acute injury, patient was seen Dr. Morley EEG was not conclusive and suggested most likely has organic and or metabolic cause of her encephalopathy. Patient sputum culture grew Stenotrophomonas was seen by Dr. Narayan suspect most likely colonization rather than true infection recommend continue levaquin 7 days completed, recommended completed the 10 days course of dexamethasone, on 02/13 again patient was given trial of SBT in hope to wean the patient off the ventilator, was unable to wean the patient off ventilator. However on 02/14 patient was successfully extubated and placed on 1 L N/C with good saturation patient was transferred out of ICU now in IMU, today 02/16 patient is off all antibiotics, patient still quite somnolent unable to provide any review of symptom, patient is tolerating tube feeds will monitor sugars the sliding scale, will start the patient on updraft, will continue to monitor patient, will have a PT OT evaluate the patient and further recommendation to follow. (2) Pneumonia: Qualifiers: Laterality: unspecified laterality Lung location: unspecified part of lung Pneumonia type: due to unspecified organism Qualified Code(s): J18.9 - Pneumonia, unspecified organism Code(s): J18.9 - Pneumonia, unspecified organism Status: Acute Assessment and Plan: Sputum culture growing stenotrophomonas maltophilia, susceptible to levofloxacin. -Dr. Narayan (Infectious Disease) was consulted and his input is appreciat
[2020-02-17 18:27] LABS: Glucose Point of Care 136 (65-105)
[2020-02-18] VITALS (14 sets, daily range): BP systolic 104–119; BP diastolic 43–52; PULSE 24–94; RESP 16–78; TEMP 36.1–37; O2SAT 90–95
[2020-02-18 01:15] LABS: Glucose Point of Care 122 (65-105)
[2020-02-18 06:13] LABS: Alanine Aminotransferase 32 U/L (4-35); Albumin Level 2.7 g/dL (3.5-5.1); Alkaline Phosphatase 105 U/L (38-126); Anion Gap 3 mmol/L (8-16); Aspartate Amino Transferase 27 U/L (14-36); Bilirubin,Total 0.2 mg/dL (0.2-1.3); Blood Urea Nitrogen 17 mg/dL (7-17); Calcium 8.8 mg/dL (8.4-10.2); Carbon Dioxide 32 mmol/L (22-30); Chloride 107 mmol/L (98-107); Estimated CRCL calculation 48 ml/min; Estimated Glomerular Filt Rate > 60; Glucose 170 mg/dL (65-105); Potassium 3.8 mmol/L (3.4-5.0); Sodium 142 mmol/L (137-145)
[2020-02-18 07:02] LABS: Glucose Point of Care 152 (65-105)
[2020-02-18] MEDS: MIDODRINE HCL 10 MG TABLET FEED TUBE ×3 (09:18→22:18)
[2020-02-18] MEDS: FAMOTIDINE 20 MG/2 ML VIAL IV PUSH ×2 (09:19→22:18)
[2020-02-18] MEDS: ENOXAPARIN 40 MG/0.4 ML SYRINGE SUB-Q (09:19)
[2020-02-18] MEDS: CENTRAL LINE FLUSH 10 ML IV PUSH ×3 (09:19→22:19)
--- NOTE | 2020-02-18 15:58 | PCDIET ---
Nutrition Follow-Up Complete: Inadequate oral intake related to oral intubation as evidenced by need for tube feeding. Patient to meet estimated nutritional needs. Goal: Goal met. Continue goal. Pt current nutrition is Glucerna 1.2 at 50ml/hr Nutrition recommendation: agree Last recorded weight is 71.2 kg, up from assessment wt of 68.2kg Bowel Motility: today BM + Labs Reviewed: Albumin 2.7, glucose 170 Meds Noted:Insulin Additional Notes: Pt extubated on the 25. Encephalopathy today. Glucerna 1.2 at 50ml/hr continues over 22 hrs providing 1320kcals, 66g protein. Bowels moving. No changes recommended at this time to nutrition. We will continue to reassess every Friday/Friday.
[2020-02-18 16:42] LABS: Glucose Point of Care 149 (65-105)
[2020-02-18 17:04] LABS: SARS-CoV-2 RNA PCR Negative
--- NOTE | 2020-02-18 17:32 | PM.IMPN ---
Progress Note: A&P Assessment and Plan (1) Acute respiratory failure: Qualifiers: Respiratory failure complication: unspecified whether with hypoxia or hypercapnia Qualified Code(s): J96.00 - Acute respiratory failure, unspecified whether with hypoxia or hypercapnia Code(s): J96.00 - Acute respiratory failure, unspecified whether with hypoxia or hypercapnia Status: Acute Assessment and Plan: Acute respiratory failure secondary to healthcare associated pneumonia vs COVID, questionable underlying COPD. -COVID + outpt prior to admission - Intubated in the emergency department on 01/28/2020. -Trial on bipap 02/13. Extubated 02/15/2020. -CXR stable 02/12/2020 -Levaquin course completed. -Continues to be encephalopathic but did verbally responded nursing staff today. 02/18/20 17:32 Healthcare associated pneumonia versus covid 19. Patient was placed in ICU . she is intubated placed on a ventilator. She is listed as a full code. Ventilator settings per day care provider. Patient is on vancomycin cefepime and azithromycin for the possibility healthcare associated pneumonia. She is also placed on Decadron due to the COVID-19. No antiviral at this time. Due to the acute renal failure and elevated liver enzymes. 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 department with respiratory distress and emergency department patient was intubated as patient was quite hypoxic, and transferred to ICU, suspect patient may have healthcare associated pneumonia as patient was recently discharged from the hospital as well as patient is positive COVID-19, has sepsis most likely secondary to healthcare associated pneumonia patient is being treated with Broad-spectrum antibiotics vancomycin cefepime, urine culture is growing Klebsiella pneumonia sensitive to cefepime, patient was started on tube feeding, patient still on pressors, patient blood sugar were elevated patient was started on IV insulin infusion to bring the blood sugar under control though patient was not in DKA, on 02/01 patient was given trial weaning off the vent however patient became quite tachypneic and hypoxic, patient was sedated and vent was resumed. will continue to monitor prognosis is poor. on 02/05 patient been off sedation for 72 hours however patient was not responding, patient opens her eyes but does not follow any instruction CT scan of the head was negative for any acute injury, patient was seen Dr. Morley EEG was not conclusive and suggested most likely has organic and or metabolic cause of her encephalopathy. Patient sputum culture grew Stenotrophomonas was seen by Dr. Narayan suspect most likely colonization rather than true infection recommend continue levaquin 7 days completed, recommended completed the 10 days course of dexamethasone, on 02/13 again patient was given trial of SBT in hope to wean the patient off the ventilator, was unable to wean the patient off ventilator. However on 02/14 patient was successfully extubated and placed on 1 L N/C with good saturation patient was transferred out of ICU now in IMU, today 02/17 patient is off all antibiotics, patient still quite somnolent unable to provide any review of symptom, patient is tolerating tube feeds will monitor sugars the sliding scale, will start the patient on updraft, will continue to monitor patient, will have a PT OT evaluate the patient and further recommendation to follow. I called patient's daughter there was no response (2) Pneumonia: Qualifiers: Laterality: unspecified laterality Lung location: unspecified part of lung Pneumonia type: due to unspecified organism Qualified Code(s): J18.9 - Pneumonia, unspecified organism Code(s): J18.9 - Pneumonia, unspecified organism Status: Acute Assessment and Plan: Sputum culture growing stenotrophomonas maltophilia, susceptible to levofloxacin. -Dr. Narayan (Infectio
[2020-02-19] VITALS (13 sets, daily range): BP systolic 96–124; BP diastolic 43–56; PULSE 60–88; RESP 18–28; TEMP 36.1–37.3; O2SAT 91–96
[2020-02-19 00:46] LABS: Glucose Point of Care 180 (65-105)
[2020-02-19] MEDS: CENTRAL LINE FLUSH 20 ML IV PUSH (04:57)
[2020-02-19] MEDS: CENTRAL LINE FLUSH 10 ML IV PUSH ×3 (04:57→21:45)
[2020-02-19 05:14] LABS: D Dimer 0.77 ug/mL (<0.48)
[2020-02-19 05:44] LABS: Alanine Aminotransferase 26 U/L (4-35); Albumin Level 2.8 g/dL (3.5-5.1); Alkaline Phosphatase 92 U/L (38-126); Anion Gap 4 mmol/L (8-16); Aspartate Amino Transferase 22 U/L (14-36); Bilirubin,Total 0.3 mg/dL (0.2-1.3); Blood Urea Nitrogen 19 mg/dL (7-17); CRP 6.2 mg/dL (<1.0); Calcium 8.8 mg/dL (8.4-10.2); Carbon Dioxide 31 mmol/L (22-30); Chloride 105 mmol/L (98-107); Estimated CRCL calculation 52 ml/min; Estimated Glomerular Filt Rate > 60; Glucose 201 mg/dL (65-105); Lactate Dehydrogenase 427 U/L (313-618); Sodium 140 mmol/L (137-145)
[2020-02-19 05:54] LABS: Glucose Point of Care 183 (65-105)
[2020-02-19 09:36] LABS: Glucose Point of Care 215 (65-105)
[2020-02-19] MEDS: ENOXAPARIN 40 MG/0.4 ML SYRINGE SUB-Q (10:30)
[2020-02-19] MEDS: FAMOTIDINE 20 MG/2 ML VIAL IV PUSH ×2 (10:30→21:45)
[2020-02-19] MEDS: MIDODRINE HCL 10 MG TABLET FEED TUBE ×3 (10:31→18:30)
--- NOTE | 2020-02-19 10:32 | PCOTNOTE ---
OT evaluation attempted. Patient not responsive, does open eyes with stimulus but does not make eye contact, follow any commands, or initiate any movement. Patient not appropriate for skilled OT at this time due to cognition and medical status. Discharge OT evaluate and treat at this time.
--- NOTE | 2020-02-19 10:44 | PCPTNOTE ---
PT evaluation attempted. Patient not responsive, does open eyes with stimulus but does not make eye contact, follow any commands, or initiate any movement. Patient not appropriate for skilled PT at this time due to cognition and medical status. Discharge PT evaluate and treat at this time.
[2020-02-19 13:14] LABS: Glucose Point of Care 160 (65-105)
--- NOTE | 2020-02-19 17:46 | PM.IMPN ---
Progress Note: A&P Assessment and Plan (1) Acute respiratory failure: Qualifiers: Respiratory failure complication: unspecified whether with hypoxia or hypercapnia Qualified Code(s): J96.00 - Acute respiratory failure, unspecified whether with hypoxia or hypercapnia Code(s): J96.00 - Acute respiratory failure, unspecified whether with hypoxia or hypercapnia Status: Acute Assessment and Plan: Acute respiratory failure secondary to healthcare associated pneumonia vs COVID, questionable underlying COPD. -COVID + outpt prior to admission - Intubated in the emergency department on 01/28/2020. -Trial on bipap 02/13. Extubated 02/15/2020. -CXR stable 02/12/2020 -Levaquin course completed. -Continues to be encephalopathic but did verbally responded nursing staff today. 02/19/20 17:46 Healthcare associated pneumonia versus covid 19. Patient was placed in ICU . she is intubated placed on a ventilator. She is listed as a full code. Ventilator settings per vice president of nursing. Patient is on vancomycin cefepime and azithromycin for the possibility healthcare associated pneumonia. She is also placed on Decadron due to the COVID-19. No antiviral at this time. Due to the acute renal failure and elevated liver enzymes. 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 department with respiratory distress and emergency department patient was intubated as patient was quite hypoxic, and transferred to ICU, suspect patient may have healthcare associated pneumonia as patient was recently discharged from the hospital as well as patient is positive COVID-19, has sepsis most likely secondary to healthcare associated pneumonia patient is being treated with Broad-spectrum antibiotics vancomycin cefepime, urine culture is growing Klebsiella pneumonia sensitive to cefepime, patient was started on tube feeding, patient still on pressors, patient blood sugar were elevated patient was started on IV insulin infusion to bring the blood sugar under control though patient was not in DKA, on 02/01 patient was given trial weaning off the vent however patient became quite tachypneic and hypoxic, patient was sedated and vent was resumed. will continue to monitor prognosis is poor. on 02/05 patient been off sedation for 72 hours however patient was not responding, patient opens her eyes but does not follow any instruction CT scan of the head was negative for any acute injury, patient was seen Dr. Morley EEG was not conclusive and suggested most likely has organic and or metabolic cause of her encephalopathy. Patient sputum culture grew Stenotrophomonas was seen by Dr. Narayan suspect most likely colonization rather than true infection recommend continue levaquin 7 days completed, recommended completed the 10 days course of dexamethasone, on 02/13 again patient was given trial of SBT in hope to wean the patient off the ventilator, was unable to wean the patient off ventilator. However on 02/14 patient was successfully extubated and placed on 1 L N/C with good saturation patient was transferred out of ICU now in IMU, today 02/18 patient is off all antibiotics, patient still quite somnolent unable to provide any review of symptom, patient is tolerating tube feeds will monitor sugars the sliding scale, will start the patient on updraft, will continue to monitor patient, will have a PT OT evaluate the patient and further recommendation to follow. I called patient's daughter on 02/17 there was no response, there is a concerned the patient may have anoxic brain injury upon arrival is patient was found unresponsive before caming to emergency department will consult neurologist for his opinion. (2) Pneumonia: Qualifiers: Laterality: unspecified laterality Lung location: unspecified part of lung Pneumonia type: due to unspecified organism Qualified Code(s): J18.9 - Pneumonia, unspecified organism Cod
[2020-02-19 18:44] LABS: Glucose Point of Care 174 (65-105)
[2020-02-20] VITALS (14 sets, daily range): BP systolic 101–127; BP diastolic 46–58; PULSE 71–100; RESP 20–28; TEMP 36.2–37.7; O2SAT 90–95
[2020-02-20 00:38] LABS: Glucose Point of Care 179 (65-105)
[2020-02-20 06:12] LABS: Glucose Point of Care 144 (65-105)
[2020-02-20] MEDS: CENTRAL LINE FLUSH 10 ML IV PUSH ×3 (06:27→20:31)
[2020-02-20] MEDS: CENTRAL LINE FLUSH 20 ML IV PUSH (06:27)
[2020-02-20 07:09] LABS: Alanine Aminotransferase 23 U/L (4-35); Alkaline Phosphatase 98 U/L (38-126); Anion Gap 3 mmol/L (8-16); Aspartate Amino Transferase 23 U/L (14-36); Bilirubin,Total 0.3 mg/dL (0.2-1.3); Blood Urea Nitrogen 16 mg/dL (7-17); Calcium 8.9 mg/dL (8.4-10.2); Carbon Dioxide 31 mmol/L (22-30); Chloride 106 mmol/L (98-107); Estimated CRCL calculation 53 ml/min; Estimated Glomerular Filt Rate > 60; Glucose 151 mg/dL (65-105); Sodium 140 mmol/L (137-145)
[2020-02-20] MEDS: FAMOTIDINE 20 MG/2 ML VIAL IV PUSH ×2 (11:27→20:08)
[2020-02-20] MEDS: ENOXAPARIN 40 MG/0.4 ML SYRINGE SUB-Q (11:27)
[2020-02-20] MEDS: MIDODRINE HCL 10 MG TABLET FEED TUBE ×3 (11:28→20:08)
[2020-02-20 11:57] LABS: Glucose Point of Care 183 (65-105)
--- NOTE | 2020-02-20 16:01 | PM.IMPN ---
Progress Note: A&P Assessment and Plan (1) Acute respiratory failure: Qualifiers: Respiratory failure complication: unspecified whether with hypoxia or hypercapnia Qualified Code(s): J96.00 - Acute respiratory failure, unspecified whether with hypoxia or hypercapnia Code(s): J96.00 - Acute respiratory failure, unspecified whether with hypoxia or hypercapnia Status: Acute Assessment and Plan: Acute respiratory failure secondary to healthcare associated pneumonia vs COVID, questionable underlying COPD. -COVID + outpt prior to admission - Intubated in the emergency department on 01/28/2020. -Trial on bipap 02/13. Extubated 02/15/2020. -CXR stable 02/12/2020 -Levaquin course completed. -Continues to be encephalopathic but did verbally responded nursing staff today. 02/20/20 16:01 Healthcare associated pneumonia versus covid 19. Patient was placed in ICU . she is intubated placed on a ventilator. She is listed as a full code. Ventilator settings per contractor field hauling. Patient is on vancomycin cefepime and azithromycin for the possibility healthcare associated pneumonia. She is also placed on Decadron due to the COVID-19. No antiviral at this time. Due to the acute renal failure and elevated liver enzymes. 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 department with respiratory distress and emergency department patient was intubated as patient was quite hypoxic, and transferred to ICU, suspect patient may have healthcare associated pneumonia as patient was recently discharged from the hospital as well as patient is positive COVID-19, has sepsis most likely secondary to healthcare associated pneumonia patient is being treated with Broad-spectrum antibiotics vancomycin cefepime, urine culture is growing Klebsiella pneumonia sensitive to cefepime, patient was started on tube feeding, patient still on pressors, patient blood sugar were elevated patient was started on IV insulin infusion to bring the blood sugar under control though patient was not in DKA, on 02/01 patient was given trial weaning off the vent however patient became quite tachypneic and hypoxic, patient was sedated and vent was resumed. will continue to monitor prognosis is poor. on 02/05 patient been off sedation for 72 hours however patient was not responding, patient opens her eyes but does not follow any instruction CT scan of the head was negative for any acute injury, patient was seen Dr. Morley EEG was not conclusive and suggested most likely has organic and or metabolic cause of her encephalopathy. Patient sputum culture grew Stenotrophomonas was seen by Dr. Narayan suspect most likely colonization rather than true infection recommend continue levaquin 7 days completed, recommended completed the 10 days course of dexamethasone, on 02/13 again patient was given trial of SBT in hope to wean the patient off the ventilator, was unable to wean the patient off ventilator. However on 02/14 patient was successfully extubated and placed on 1 L N/C with good saturation patient was transferred out of ICU now in IMU, today 02/19 patient is off all antibiotics, patient still quite somnolent unable to provide any review of symptom, patient is tolerating tube feeds will monitor sugars the sliding scale, will start the patient on updraft, will continue to monitor patient, will have a PT OT evaluate the patient and further recommendation to follow. there is a concerned the patient may have anoxic brain injury upon arrival is patient was found unresponsive before caming to emergency department, I spoke with neurologist today will do MRI of the brain to further evaluate and further recommendation to follow, a spoke with the patient's daughter and her father who happens to be physician and answered all the questions apparently there is history systolic dysfunction with ejection fraction of 35%, will do the cardiac echo to further e
[2020-02-20 18:53] LABS: Glucose Point of Care 175 (65-105)
[2020-02-21] VITALS (7 sets, daily range): BP systolic 112–126; BP diastolic 51–58; PULSE 78–101; RESP 18–24; TEMP 36.1–37.6; O2SAT 90–98
--- NOTE | 2020-02-21 | ECHO_ITS ---
Patient Info Name: Linette Vásquez Age: 75 years : 1945 Gender: Female Ht: 63 in Wt: 162 lbs BSA: 1.83 m2 HR: 93 bpm BP: 120 / 55 mmHg Heart Rhythm: Sinus Rhythm Technical Quality: Good Exam Date: 02/21/2020 9:06 AM Exam Location: [facility] Pulmonary Patient Status: Inpatient Admit Date: 01/28/2020 Staff Ordering Physician: Yasmine Cardenas MD Truck Hopper: Chito Borden, RDCS, RT Attending Provider: Boby Ko MD Exam Type: CA echo doppler color flow Study Info Indications I50.9 - Heart failure, unspecified Complete two-dimensional, color flow and Doppler transthoracic echocardiogram is performed. Summary 1. Left ventricular systolic function is normal, estimated at 65-70%. 2. There is no increased left ventricular wall thickness. 3. The left ventricular diastolic function is grade II diastolic dysfunction. 4. There is no aortic valve stenosis. 5. There is trace mitral valve regurgitation. 6. There is trace tricuspid valve regurgitation. 7. Unable to estimate PA systolic pressure due to poor spectral resolution of tricuspid regurgitant jet velocity. 8. There is small pericardial effusion. No echocardiographic evidence of tamponade physiology. 9. Normal inferior vena cava with >50% collapse upon inspiration consistent with normal right atrial pressure, 5 mmHg. Left Ventricle Left ventricular chamber dimension is normal. Left ventricular systolic function is normal, estimated at 65-70%. There is no increased left ventricular wall thickness. The left ventricular diastolic function is grade II diastolic dysfunction. Right Ventricle Right ventricular chamber dimension is normal. Right ventricular systolic function is normal. Left Atria Left atrial chamber dimension is normal. Right Atria Right atrial chamber dimension is normal. Aortic Valve The aortic valve is not well visualized. There is no aortic valve stenosis. There is no aortic valve regurgitation. Pulmonic Valve The pulmonic valve is not well visualized. Mitral Valve The mitral valve has normal leaflets. There is trace mitral valve regurgitation. The mitral valve annulus is mildly calcified. Tricuspid Valve The tricuspid valve leaflets are normal. There is trace tricuspid valve regurgitation. Unable to estimate PA systolic pressure due to poor spectral resolution of tricuspid regurgitant jet velocity. Pericardium/Pleural The pericardium appears normal. There is small pericardial effusion. No echocardiographic evidence of tamponade physiology. Inferior Vena Cava Normal inferior vena cava with >50% collapse upon inspiration consistent with normal right atrial pressure, 5 mmHg. Aorta The aortic root size at the sinus of Valsalva is normal. There is mild aortic atherosclerosis. Left Ventricular Outflow Tract Name Value Normal LVOT 2D LVOT Diameter 2.0 cm LVOT Doppler LVOT Peak Gradient 2 mmHg LVOT Mean Gradient 1 mmHg LVOT VTI 14 cm LVOT VTI/AV VTI Ratio 0.7 L
[2020-02-21 00:10] LABS: Glucose Point of Care 177 (65-105)
[2020-02-21 05:11] LABS: Alanine Aminotransferase 23 U/L (4-35); Albumin Level 3.1 g/dL (3.5-5.1); Alkaline Phosphatase 103 U/L (38-126); Anion Gap 4 mmol/L (8-16); Aspartate Amino Transferase 24 U/L (14-36); Bilirubin,Total 0.3 mg/dL (0.2-1.3); Blood Urea Nitrogen 17 mg/dL (7-17); Calcium 9.2 mg/dL (8.4-10.2); Carbon Dioxide 32 mmol/L (22-30); Chloride 103 mmol/L (98-107); Estimated CRCL calculation 46 ml/min; Estimated Glomerular Filt Rate > 60; Glucose 193 mg/dL (65-105); Sodium 139 mmol/L (137-145)
[2020-02-21 05:51] LABS: Glucose Point of Care 191 (65-105)
[2020-02-21] MEDS: CENTRAL LINE FLUSH 10 ML IV PUSH ×3 (06:30→21:36)
[2020-02-21] MEDS: ENOXAPARIN 40 MG/0.4 ML SYRINGE SUB-Q (10:09)
[2020-02-21] MEDS: FAMOTIDINE 20 MG/2 ML VIAL IV PUSH ×2 (10:10→21:15)
[2020-02-21] MEDS: MIDODRINE HCL 10 MG TABLET FEED TUBE ×3 (10:10→18:22)
[2020-02-21] MEDS: CHOLECALCIFEROL 1,000 UNITS TABLET 1000 UNITS PO (10:10)
[2020-02-21] MEDS: ASCORBIC ACID 500 MG TABLET PO (10:10)
[2020-02-21 12:25] LABS: Glucose Point of Care 236 (65-105)
[2020-02-21] MEDS: INSULIN ASPART (*BKC) 100 UNITS/ML SUB-Q (15:29)
--- NOTE | 2020-02-21 15:37 | PC.NURSE ---
This patient, Linette Vásquez, was transferred to [facility] on 02/21/20 at 1537. Personal belongings sent with patient. Report given to Farideh. Appropriate documentation sent with patient.
--- NOTE | 2020-02-21 16:17 | ADMGEN ---
This patient, Linette Vásquez, was transferred to [address] [place] [address] Room 324-02. Patient/family oriented to hospital policies and general routines including ID bracelet, bed and alarms, visiting hours, pain management, procedures, bathroom and other care routines, personal items, smoking policy, room service/diet, and visiting hours. Information on how to activate the Rapid Response Team has been discussed. Patient/Family are encouraged to report perceived risks to care and to ask questions if they do not understand what they are told or what they should do.
[2020-02-21 17:35] LABS: Glucose Point of Care 156 (65-105)
[2020-02-22] VITALS: BP 122/49; PULSE 86; RESP 20; TEMP 36.7; O2SAT 90
[2020-02-22 02:31] LABS: Glucose Point of Care 127 (65-105)
[2020-02-22 04:49] VITALS: BP 120/47; PULSE 95; RESP 20; TEMP 36.9; O2SAT 91
[2020-02-22 06:05] LABS: Glucose Point of Care 136 (65-105)
[2020-02-22 06:11] LABS: Alanine Aminotransferase 23 U/L (4-35); Albumin Level 3.2 g/dL (3.5-5.1); Alkaline Phosphatase 99 U/L (38-126); Anion Gap 6 mmol/L (8-16); Aspartate Amino Transferase 27 U/L (14-36); Bilirubin,Total 0.4 mg/dL (0.2-1.3); Blood Urea Nitrogen 17 mg/dL (7-17); Calcium 8.8 mg/dL (8.4-10.2); Carbon Dioxide 31 mmol/L (22-30); Chloride 104 mmol/L (98-107); Estimated CRCL calculation 38 ml/min; Estimated Glomerular Filt Rate 54; Glucose 145 mg/dL (65-105); Sodium 141 mmol/L (137-145)
[2020-02-22] MEDS: CENTRAL LINE FLUSH 10 ML IV PUSH ×3 (06:55→21:09)
[2020-02-22] MEDS: ENOXAPARIN 40 MG/0.4 ML SYRINGE SUB-Q (10:19)
[2020-02-22] MEDS: MIDODRINE HCL 10 MG TABLET FEED TUBE ×3 (10:20→18:33)
[2020-02-22] MEDS: ASCORBIC ACID 500 MG TABLET PO (10:24)
[2020-02-22] MEDS: FAMOTIDINE 20 MG/2 ML VIAL IV PUSH ×2 (10:24→21:07)
[2020-02-22] MEDS: CHOLECALCIFEROL 1,000 UNITS TABLET 1000 UNITS PO (10:24)
[2020-02-22 12:43] LABS: Glucose Point of Care 137 (65-105)
[2020-02-22 14:00] VITALS: BP 124/49; PULSE 70; RESP 22; TEMP 37.1; O2SAT 96
--- NOTE | 2020-02-22 15:09 | PCDIET ---
Nutrition Follow-Up Complete: Nutrition Diagnosis: Inadequate oral intake related to oral intubation as evidenced by need for tube feeding. Nutrition Goal: Patient to meet estimated nutritional needs. Goal not met. Tube feedings held previously due to concern for aspiration. Chest x-ray noted. Discussed with MD - plan to resume tube feedings at low rate of 20-30mL/hr. Last recorded weight is 69.8 kg which is down from last review, but up from admission. I/O noted. Bowel Motility: Last documented BM on 02/18/20. Labs Reviewed: Glu (137), Alb (3.2), GFR (54) Meds Noted: Albuterol, Vitamin C, Zosyn, Vitamin D Additional Notes: Friction area to buttocks. No other skin issues documented. Will continue to monitor with same goal. If patient tolerates tube feedings at low rate over the next 24 hours, will recommend increase to goal. Will also need to consider technician terminal and repeater feeding tube placement if aggressive nutritional therapy is desired. Nutrition Monitoring and Evaluation: Follow up every Friday/Friday.
--- NOTE | 2020-02-22 18:18 | P.PNIM_ITS ---
Progress Note: A&P Assessment and Plan (1) Acute respiratory failure: Qualifiers: Respiratory failure complication: unspecified whether with hypoxia or hypercapnia Qualified Code(s): J96.00 - Acute respiratory failure, unspecified whether with hypoxia or hypercapnia Code(s): J96.00 - Acute respiratory failure, unspecified whether with hypoxia or hypercapnia Status: Acute Assessment and Plan: Acute respiratory failure secondary to healthcare associated pneumonia vs COVID, questionable underlying COPD. -COVID + outpt prior to admission - Intubated in the emergency department on 01/28/2020. -Trial on bipap 02/13. Extubated 02/15/2020. -CXR stable 02/12/2020 -Levaquin course completed. -Continues to be encephalopathic but did verbally responded nursing staff today. 02/22/20 18:18 Healthcare associated pneumonia versus covid 19. Patient was placed in ICU . she is intubated placed on a ventilator. She is listed as a full code. Ventilator settings per [facility]. Patient is on vancomycin cefepime and azithromycin for the possibility healthcare associated pneumonia. She is also placed on Decadron due to the COVID-19. No antiviral at this time. Due to the acute renal failure and elevated liver enzymes. 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 department with respiratory distress and emergency department patient was intubated as patient was quite hypoxic, and transferred to ICU, suspect patient may have healthcare associated pneumonia as patient was recently discharged from the hospital as well as patient is positive COVID-19, has sepsis most likely secondary to healthcare associated pneumonia patient is being treated with Broad-spectrum antibiotics vancomycin cefepime, urine culture is growing Klebsiella pneumonia sensitive to cefepime, patient was started on tube feeding, patient still on pressors, patient blood sugar were elevated patient was started on IV insulin infusion to bring the blood sugar under control though patient was not in DKA, on 02/01 patient was given trial weaning off the vent however patient became quite tachypneic and hypoxic, patient was sedated and vent was resumed. will continue to monitor prognosis is poor. on 02/05 patient been off sedation for 72 hours however patient was not responding, patient opens her eyes but does not follow any instruction CT scan of the head was negative for any acute injury, patient was seen Dr. Morley EEG was not conclusive and suggested most likely has organic and or metabolic cause of her encephalopathy. Patient sputum culture grew Stenotrophomonas was seen by Dr. Narayan suspect most likely colonization rather than true infection recommend continue levaquin 7 days completed, recommended completed the 10 days course of dexamethasone, on 02/13 again patient was given trial of SBT in hope to wean the patient off the ventilator, was unable to wean the patient off ventilator. However on 02/14 patient was successfully extubated and placed on 1 L N/C with good saturation patient was transferred out of ICU now in IMU, today 02/19 patient is off all antibiotics, patient still quite somnolent unable to provide any review of symptom, patient is tolerating tube feeds will monitor sugars the sliding scale, will start the patient on updraft, will continue to monitor patient, will have a PT OT evaluate the patient and further recommendation to follow. there is a concerned the patient may have anoxic brain injury upon arrival is patient was found unresponsive before caming to emergency department, I spoke with neurologist today will do MRI of the brain to further evaluate and further recommendation to follow, spencer howe
[2020-02-22 18:49] LABS: Glucose Point of Care 112 (65-105)
[2020-02-22 19:45] VITALS: O2SAT 93
[2020-02-22 22:03] VITALS: BP 130/51; PULSE 83; RESP 18; TEMP 35.8; O2SAT 91
[2020-02-23] VITALS (10 sets, daily range): BP systolic 107–123; BP diastolic 45–53; PULSE 72–85; RESP 18–20; TEMP 36.6–36.7; O2SAT 91–93
[2020-02-23] MEDS: IPRATROPIUM BR 0.02% INH SOLN 0.5 MG/2.5 ML VIAL INHALATION ×4 (00:31→20:55)
[2020-02-23] MEDS: ALBUTEROL SULFATE NEB 2.5 MG/0.5 ML INH INHALATION ×4 (00:31→20:55)
[2020-02-23 00:51] LABS: Glucose Point of Care 128 (65-105)
[2020-02-23] MEDS: CENTRAL LINE FLUSH 10 ML IV PUSH ×3 (06:19→21:05)
[2020-02-23 06:59] LABS: Alanine Aminotransferase 24 U/L (4-35); Albumin Level 3.3 g/dL (3.5-5.1); Alkaline Phosphatase 102 U/L (38-126); Anion Gap 7 mmol/L (8-16); Aspartate Amino Transferase 29 U/L (14-36); Bilirubin,Total 0.4 mg/dL (0.2-1.3); Blood Urea Nitrogen 17 mg/dL (7-17); Calcium 8.7 mg/dL (8.4-10.2); Carbon Dioxide 30 mmol/L (22-30); Chloride 105 mmol/L (98-107); Estimated CRCL calculation 34 ml/min; Estimated Glomerular Filt Rate 49; Glucose 148 mg/dL (65-105); Potassium 3.8 mmol/L (3.4-5.0); Sodium 142 mmol/L (137-145)
[2020-02-23 07:08] LABS: Glucose Point of Care 149 (65-105)
[2020-02-23] MEDS: CHOLECALCIFEROL 1,000 UNITS TABLET 1000 UNITS PO (09:12)
[2020-02-23] MEDS: ASCORBIC ACID 500 MG TABLET PO (09:12)
[2020-02-23] MEDS: MIDODRINE HCL 10 MG TABLET FEED TUBE ×3 (09:13→17:54)
[2020-02-23] MEDS: FAMOTIDINE 20 MG/2 ML VIAL IV PUSH ×2 (09:13→21:06)
[2020-02-23] MEDS: ENOXAPARIN 40 MG/0.4 ML SYRINGE SUB-Q (09:13)
--- NOTE | 2020-02-23 11:54 | PCNFU ---
Nutrition Follow-Up Complete: Inadequate oral intake related to oral intubation as evidenced by need for tube feeding. Goal: Patient to meet estimated nutritional needs. Progressing towards goal. We will continue current goal. Pt current nutrition is Glucerna 1.2 at 20 ml/hr. Nutrition recommendation: advance tube feedings to goal rate of 50 ml/hr Last recorded weight is 68.5 kg. no new weight to report. Bowel Motility:+BM reported 02/17 Labs Reviewed:GFR 49,Glu 148,Alb 3.3 Meds Noted:Vit C, Pepcid,Vit D, Novolog, Zocyn Additional Notes: Nutrition follow up. Spoke with Dr Cardenas today regarding patients tube feeding rates. orders for Glucerna 1.2 to advance by 10 ml/hr q 4 hours to goal rate of 50 ml/hr. GI has been consulted for PEG. Monitoring: Follow up every Friday/Friday.
[2020-02-23 12:45] LABS: Glucose Point of Care 114 (65-105)
--- NOTE | 2020-02-23 16:06 | WPDGICN ---
Assessment and Plan Assessment and plan (1) Encephalopathy acute: Code(s): G93.40 - Encephalopathy, unspecified Status: Acute Assessment and Plan: Patient with mental status changes at the time presentation. She remains encephalopathic. Currently nonverbal unable to give any history. She is not able to swallow on her own. Her baseline is unknown at this point. Patient does have a prior history of brain surgery for brain tumors in the past. PEG tube is requested for nutritional support. Patient has required Dobbhoff tube for nutrition at this point. Plan is to proceed with PEG tube tomorrow if all services agree. (2) Pneumonia: Qualifiers: Laterality: unspecified laterality Lung location: unspecified part of lung Pneumonia type: due to unspecified organism Qualified Code(s): J18.9 - Pneumonia, unspecified organism Code(s): J18.9 - Pneumonia, unspecified organism Status: Acute (3) DM2 (diabetes mellitus, type 2): Qualifiers: Diabetes mellitus half-way insulin use: with adjunct faculty for medical terminology use Diabetes mellitus complication status: with hyperglycemia Qualified Code(s): E11.65 - Type 2 diabetes mellitus with hyperglycemia; Z79.4 - longterm (current) use of insulin Code(s): E11.9 - Type 2 diabetes mellitus without complications Status: Chronic (4) History of brain surgery: Code(s): Z98.890 - Other specified postprocedural states Status: Inactive GI Consult Note Consult date/time: 02/23/20 16:06 HPI: Linette Vásquez is a 75 year old female I am asked to see at the request of the hospitalist service for a possible G-tube. Patient currently nonverbal and unable to give any useful history. Patient admitted to the hospital from the snf with shortness breath mental status changes on January 28, 2020 patient has a prior history of brain tumors requiring surgical resection she has been treated for COPD diabetes mellitus. shortly before admission to the hospital she was identified as having COVID positive. Several tests since admission hospital a been negative for COVID. She did experience respiratory failure we required placement on the ventilator. This ultimately was discontinued February 14. Patient continue use to be nonverbal with encephalopathy. She requires tube feedings via NG tube at the present time. A PEG tube is requested for long-term nutritional improvement at this point. Patient has had no bleeding. No previous abdominal scars are present. Family is in agreement on placement of a PEG tube. Review of Systems Review of Systems: ROS unobtainable: Yes unobtainable due to mental status PMFSH Past Medical History Medical History Chronic GERD DM2 (diabetes mellitus, type 2) Surgical History Surgical History History of brain surgery resection of brain tumor Family History Family History Sibling Breast cancer Father Lung cancer Social History Social History Social History: according to her records she does not smoke or drink any more however she is listed as a former smoker. she lives in a snf . She is listed as . she does have a durable power county attorney for healthcare. She has a armaan Lenin [phone] is a durable power county attorney. She also has her brother Larry listed as a supervisor contact lens [phone]. Years smoked: 46 Smoking status: Former smoker Tobacco type: cigarettes Smoking end date: 10/22/17 Living arrangements: snf Gender identity (if verbalized by the patient): Female Spiritual care concerns: No Meds Home Medications and Allergies Home Medications Medication Instructions Recorded Confirmed Type Lactobacillus acidophilus 1 tablet PO BID 01/28/20 01/28/20 History
[2020-02-23] MEDS: HEPARIN SODIUM 5,000 UNITS/ML VIAL 5000 UNITS SUB-Q ×2 (16:30→21:06)
[2020-02-23 16:46] LABS: Basophils Percent Auto 0.4 % (0.2-1.2); Eosinophils Absolute Auto 0.7 K/mm3 (0-0.3); Eosinophils Percent Auto 7.4 % (0-4.4); Hematocrit 28.3 % (37.0-47.0); Hemoglobin 8.5 g/dL (12.0-15.0); Immature Granulocyte Absolute 0.39 K/mm3 (0.00-0.031); Immature Granulocyte Percent A 4.1 % (0-0.5); Lymphocytes Absolute Auto 2.47 K/mm3 (0.9-3.2); Lymphocytes Percent Auto 26.2 % (18.3-44.2); Mean Corpuscular Hemoglobin 26.2 pg (26-34); Mean Corpuscular Volume 87.1 fl (80-100); Mean Platelet Volume 8.6 fl (7.4-10.4); Monocytes Absolute Auto 0.7 K/mm3 (0.1-0.6); Monocytes Percent Auto 7.4 % (2.6-8.5); Neutrophils Absolute Auto 5.1 K/mm3 (1.3-6.7); Neutrophils Percent Auto 54.5 % (45.5-73.1); Nucleated Red Blood Cells Perc 0.3 % (0.0-0.2); Platelet Count Result 410 k/mm3 (150-375); Red Blood Count 3.25 M/mm3 (4.2-5.4); Red Cell Distribution Width 17.9 % (11.5-14.5); White Blood Count 9.4 K/mm3 (4.5-10.0)
[2020-02-23 16:57] LABS: INR 1.1; Prothrombin Time 14.3 Seconds (11.1-14.7)
[2020-02-23 16:58] LABS: Partial Thromboplastin Time 33.1 SECONDS (22.3-36.8)
[2020-02-23 17:07] LABS: Anion Gap 6 mmol/L (8-16); Blood Urea Nitrogen 16 mg/dL (7-17); Calcium 8.7 mg/dL (8.4-10.2); Carbon Dioxide 31 mmol/L (22-30); Chloride 105 mmol/L (98-107); Estimated CRCL calculation 34 ml/min; Estimated Glomerular Filt Rate 49; Glucose 127 mg/dL (65-105); Potassium 3.9 mmol/L (3.4-5.0); Sodium 142 mmol/L (137-145)
[2020-02-23 17:58] LABS: Glucose Point of Care 125 (65-105)
[2020-02-24] VITALS (29 sets, daily range): BP systolic 103–124; BP diastolic 46–66; PULSE 71–95; RESP 16–31; TEMP 36.2–37.2; O2SAT 83–100
[2020-02-24 00:25] LABS: Glucose Point of Care 125 (65-105)
[2020-02-24] MEDS: ALBUTEROL SULFATE NEB 2.5 MG/0.5 ML INH INHALATION ×6 (00:27→21:07)
[2020-02-24] MEDS: IPRATROPIUM BR 0.02% INH SOLN 0.5 MG/2.5 ML VIAL INHALATION ×6 (00:28→21:07)
[2020-02-24] MEDS: CENTRAL LINE FLUSH 10 ML IV PUSH ×3 (05:35→22:53)
[2020-02-24 05:38] LABS: Glucose Point of Care 112 (65-105)
[2020-02-24 06:39] LABS: Alanine Aminotransferase 22 U/L (4-35); Albumin Level 3.3 g/dL (3.5-5.1); Alkaline Phosphatase 98 U/L (38-126); Anion Gap 7 mmol/L (8-16); Aspartate Amino Transferase 29 U/L (14-36); Bilirubin,Total 0.5 mg/dL (0.2-1.3); Blood Urea Nitrogen 15 mg/dL (7-17); Calcium 8.6 mg/dL (8.4-10.2); Carbon Dioxide 26 mmol/L (22-30); Chloride 107 mmol/L (98-107); Estimated CRCL calculation 38 ml/min; Estimated Glomerular Filt Rate 54; Glucose 137 mg/dL (65-105); Potassium 4.3 mmol/L (3.4-5.0); Sodium 140 mmol/L (137-145)
[2020-02-24] MEDS: CHOLECALCIFEROL 1,000 UNITS TABLET 1000 UNITS PO (10:08)
[2020-02-24] MEDS: ASCORBIC ACID 500 MG TABLET PO (10:08)
[2020-02-24] MEDS: MIDODRINE HCL 10 MG TABLET FEED TUBE ×2 (10:08→17:28)
[2020-02-24] MEDS: FAMOTIDINE 20 MG/2 ML VIAL IV PUSH ×2 (10:09→20:53)
--- NOTE | 2020-02-24 12:53 | WPDNEUROPN ---
Progress Note: A&P Assessment and Plan (1) DM2 (diabetes mellitus, type 2): Qualifiers: Diabetes mellitus buttermaker insulin use: with prison use Diabetes mellitus complication status: with hyperglycemia Qualified Code(s): E11.65 - Type 2 diabetes mellitus with hyperglycemia; Z79.4 - exterminator (current) use of insulin Code(s): E11.9 - Type 2 diabetes mellitus without complications Status: Chronic (2) Encephalopathy acute: Code(s): G93.40 - Encephalopathy, unspecified Status: Acute Additional Plan significant neurological deficit with all the neurological signs related to the old injury and effect of the radiation therapy there is no acute changes to consider any further intervention again obviously the COVID pneumonia has been treated Review of Systems Review of Systems: All systems reviewed & are unremarkable except as noted in HPI and below Objective Data Vital Signs Vital Signs: Vital Signs - 24 hr 02/23/20 13:50 02/23/20 14:00 02/23/20 14:11 Temperature 36.7 C Pulse Rate 83 72 85 Respiratory Rate 20 18 20 Blood Pressure 107/45 L Pulse Oximetry 93 02/23/20 16:15 02/23/20 16:25 02/23/20 20:56 Temperature Pulse Rate 85 84 84 Respiratory Rate 20 20 20 Blood Pressure Pulse Oximetry 02/23/20 21:06 02/23/20 22:00 02/24/20 00:28 Temperature 36.6 C Pulse Rate 85 77 75 Respiratory Rate 20 20 20 Blood Pressure 123/53 L Pulse Oximetry 92 02/24/20 00:36 02/24/20 03:31 02/24/20 03:41 Temperature Pulse Rate 77 78 82 Respiratory Rate 18 20 24 H Blood Pressure Pulse Oximetry 02/24/20 03:42 02/24/20 05:10 02/24/20 08:00 Temperature 36.7 C Pulse Rate 82 71 85 Respiratory Rate 24 H 20 16 Blood Pressure 124/52 L Pulse Oximetry 92 94 92 02/24/20 08:30 02/24/20 08:40 02/24/20 12:52 Temperature 36.6 C Pulse Rate 83 85 94 Respiratory Rate 16 16 26 H Blood Pressure 115/66 Pulse Oximetry 92 97 Intake/Output Intake/Output: Intake & Output 02/21/20 02/22/20 02/23/20 02/24/20 23:59 23:59 23:59 23:59 Intake Total 1156 420 536 Output Total 825 350 690 200 Balance 331 70 -154 -200 Meds/Results Medications: Active Medications Generic Name Dose Route Start Last Admin Trade Name Freq PRN Reason Stop Dose Admin Acetaminophen 650 mg 02/08/20 11:26 Acetaminophen Elixir 325 Mg/10.15 Ml Udc PO Q6H PRN Mild Pain (1-3) or Fever Albuterol 2.5 mg 01/28/20 13:00 02/13/20 07:53 Albuterol Sulfate Neb 2.5 Mg/0.5 Ml Inh INHALATION 2.5 mg Q4HRT PRN Administration Shortness Of Breath Albuterol 2.5 mg 02/22/20 16:00 02/24/20 08:30 Albuterol Sulfate Neb 2.5 Mg/0.5 Ml Inh INHALATION 2.5 mg Q4HRT BRYCE Administration Alteplase, Recombinant 2 mg 02/11/20 05:52 02/11/20 06:55 Alteplase 2 Mg Vial (Cathflo) IV PUSH 2 mg ONCE PRN Administration Line Occlusion Ascorbic Acid 500 mg 02/21/20 09:00 02/24/20 10:08 Ascorbic Acid 500 Mg Tablet PO 500 mg DAILY BRYCE Administration Dextrose 12.5 gm 01/28/20 13:10 02/08/20 12:43 Dextrose 50% 25 Gm/50 Ml Syringe IV PUSH 12.5 gm PRN PRN Administration Hypoglycemia Protocol Famotidine 20 mg 02/05/20 21:00 02/24/20 10:09 Famotidine 20 Mg/2 Ml Vial IV PUSH 20 mg Q12HR BRYCE Administration Glucagon 1 mg 01/28/20 13:10 Glucagon For Inj 1 Mg Vial IM PRN PRN Hypoglycemia Protocol Glucose 15 gm 02/05/20 14:04 Glucose Oral Gel 15 Gm Of Glucse In 37.5 Gm Tube PO PRN PRN Hypoglycemia Protocol Heparin Sodium (Porcine) 5,000 units 02/23/20 16:10 02/24/20 05:35 Heparin Sodium 5,000 Units/Ml Vial SUB-Q Not Given Q8HR BRYCE Dextrose 1,000 mls @ 100 mls/hr 01/28/20 13:10 02/16/20 19:35 Dextrose 5% 1,000 Ml IVPB Infused PRN PRN Infusion Hypoglycemia Protocol Piperacillin Sod/Tazobactam Sod 2.25 gm in 50 mls @ 100 mls/hr 02/21/20 14:45
[2020-02-24] MEDS: LACTATED RINGERS 1,000 ML 150 ML IV CONT ×2 (12:54→20:53)
--- NOTE | 2020-02-24 13:10 | WPDANESEPPF ---
Anes - Initial Pre Proc Eval Procedure: Operation Date: 02/24/20 11:00 Proposed Procedures p Percutaneous Endoscopic Gastrostomy - Wan Kaplan MD Date/Time: 02/24/20 13:10 Surgeon: Boby Ko MD Pre Op Diagnosis: Respiratory Failure/kath/COVID Pneumonia/hypernatre Patient Data Age: 75 Gender: F Height: 5 ft 4 in Weight: 63.7 kg Last Vital Signs Temp 97.8 F 02/24/20 12:52 Pulse 94 02/24/20 12:52 Resp 26 H 02/24/20 12:52 BP 115/66 02/24/20 12:52 Pulse Ox 97 02/24/20 12:52 Allergies Allergy/AdvReac Type Severity Reaction Status Date / Time codeine Allergy Unknown Verified 01/28/20 17:25 erythromycin base Allergy Unknown Verified 01/28/20 17:25 hydrocodone Allergy Unknown Verified 01/28/20 17:25 ibuprofen Allergy Unknown Verified 01/28/20 17:25 Iodinated Contrast Media Allergy Unknown Verified 01/28/20 17:25 meperidine Allergy Unknown Verified 01/28/20 17:25 mepivacaine [From Carbocaine] Allergy Unknown Verified 01/28/20 17:25 propoxyphene Allergy Unknown Verified 01/28/20 17:25 shellfish derived Allergy Hives Verified 01/28/20 14:46 Sulfa (Sulfonamide Allergy Unknown Verified 01/28/20 14:46 Antibiotics) Home Medications Medication Instructions Recorded Confirmed Type Lactobacillus acidophilus 1 tablet PO BID 01/28/20 01/28/20 History ergocalciferol (vitamin D2) 1,250 mcg PO WEEKLY 01/28/20 01/28/20 History insulin glargine [Basaglar KwikPen 14 unit SUBCUT BID 01/28/20 01/28/20 History U-100 Insulin] omeprazole 20 mg PO BID 01/28/20 01/28/20 History oxybutynin chloride 5 mg PO DAILY 01/28/20 01/28/20 History promethazine [Phenergan] 25 mg ID Q6H PRN 01/28/20 01/28/20 History sennosides [senna] 8.6 mg PO BID PRN 01/28/20 01/28/20 History Laboratory Tests 02/23/20 02/23/20 02/23/20 16:40 16:40 16:40 WBC 9.4 K/mm3 K/mm3 (4.5-10.0) RBC 3.25 M/mm3 L M/mm3 (4.2-5.4) Hgb 8.5 g/dL L g/dL (12.0-15.0) Hct 28.3 % L % (37.0-47.0) MCV 87.1 fl fl (80-100) MCH 26.2 pg pg (26-34) MCHC 30.0 g/dl L g/dl (32-36) RDW 17.9 % H % (11.5-14.5) Plt Count 410 k/mm3 H D k/mm3 (150-375) MPV 8.6 fl fl (7.4-10.4) Immature Gran % (Auto) 4.1 % H % (0-0.5) Neut % (Auto) 54.5 % % (45.5-73.1) Lymph % (Auto) 26.2 % % (18.3-44.2) [place] % (Auto) 7.4 % % (2.6-8.5) Eos % (Auto) 7.4 % H % (0-4.4) Baso % (Auto) 0.4 % % (0.2-1.2) Lymph # (Auto) 2.47 K/mm3 K/mm3 (0.9-3.2) [place] # (Auto) 0.7 K/mm3 H K/mm3 (0.1-0.6) Eos # (Auto) 0.7 K/mm3 H K/mm3 (0-0.3) Baso # (Auto) 0.0 K/mm3 K/mm3 (0.0-0.1) Abs Immat Gran (auto) 0.39 K/mm3 H K/mm3 (0.00-0.031) Absolute Neuts (auto) 5.1 K/mm3 K/mm3 (1.3-6.7) Absolute Nucleated RBC 0.0 K/mm3 K/mm3 (0.0-0.012) Nucleated RBC % 0.3 % H % (0.0-0.2) PT 14.3 Seconds Seconds (11.1-14.7) INR 1.1 APTT 33.1 SECONDS SECONDS (22.3-36.8) Sodium 142 mmol/L mmol/L (137-145) Potassium 3.9 mmol/L mmol/L (3.4-5.0) Chloride 105 mmol/L mmol/L (98-107) Carbon Dioxide 31 mmol/L H mmol/L (22-30) Anion Gap 6 mmol/L L mmol/L (8-16) BUN 16 mg/dL mg/dL (7-17) Creatinine 1.10 mg/dL H mg/dL (0.7-1.0) Estim Creat Clear Calc 34 ml/min ml/min Estimated GFR 49 L (59 - ) Glucose 127 mg/dL H mg/dL (65-105) POC Capillary Glucose Calcium 8.7 mg/dL mg/dL (8.4-10.2) Total Bilirubin AST ALT Alkaline Phosphatase Total Protein Albumin 02/23/20 02/24/20 02/24/20 17:53 00:07 05:32 WBC RBC Hgb Hct MCV MCH
--- NOTE | 2020-02-24 13:49 | PC.NURSE ---
Patient went down to GI lab at 1235.
--- NOTE | 2020-02-24 14:49 | SUR.PHASEII ---
Pt's SpO2 decreased. No signs of distress. Resting comfortably. Dr. Caldwell at bedside. Inspiratory and expiratory wheezes. Respiratory treatment ordered per Dr. Caldwell. Treatment given with improvement to SpO2.
--- NOTE | 2020-02-24 15:21 | SUR.PHASEII ---
Attempted to wean pt from mask. SpO2 to 89% on 4L. Dr. Caldwell made aware. Pt placed back on 10L simple mask. Pt SpO2 93-95%. Ok to take pt to floor per Dr. Caldwell. VICTORINO Farley aware of condition.
--- NOTE | 2020-02-24 15:33 | PCDIET ---
Nutrition Consult Complete: Inadequate oral intake related to oral intubation as evidenced by need for tube feeding. Patient to meet estimated nutritional needs. Goal: Progressing towards goal. Continue goal. Pt current nutrition is NPO/Jevity 1.5 Nutrition recommendation: Change to previous formula, Glucerna 1.2 Last recorded weight is 63.7 kg (down from 68.2kg on admit) Additional Notes: Pt with PEG placement today. Plans to restart enteral nutrition at dinner per MD. Glucerna 1.2 recommended to start at 20ml/hr, increasing 10ml q 4hrs to goal of 50ml/hr. Over 22hrs at goal, Glucerna 1.2 will provide 1320kcals, 66g protein. Water flush of 30ml q 4 hrs appropriate at this time. Following every t/f.
[2020-02-24 15:43] LABS: Glucose Point of Care 114 (65-105)
--- NOTE | 2020-02-24 15:43 | PC.NURSE ---
Patient returned from GI lab at 1535.
[2020-02-24 16:02] LABS: Alveolar/Arterial O2 Gradient 371.7 mmHg; Base Excess ABG -1.2 mEq/l (+/-2.0); Fractional Inspired Oxygen 70 %; HCO3 ABG 22.9 mEq/l (22.0-26.0); Oxygen Content ABG 13.4 %vol (16.0-22.0); Oxyhemoglobin 95.2 % THb (90.0-100.0); PCO2 ABG 35.9 mmHg (35.0-45.0); PO2 ABG 88.8 mmHg (80.0-100.0); PO2 FiO2 Ratio Arterial Blood 1.27 %; Total Hemoglobin 9.9 g/dL (12.0-18.0); pH ABG 7.422 (7.350-7.450)
[2020-02-24 16:03] LABS: Device SIMPLE MASK; Modified Allen's Test Unable to perform; Site Drawn LEFT RADIAL
--- NOTE | 2020-02-24 16:29 | PC.NURSE ---
At 1544 patient returning to the floor on [address] Cardenas notified and came to see patient. orders recieved for ABG. ABG obtained and results called to Dr. Cardenas. Dr. Cardenas would like to resume eliquis as soon as ok with Dr. Kaplan. Dr. Kaplan notified and wants eliquis on hold still tonight. Dr. Kaplan plans to see patient tomorrow morning and will decide then when to resume medication. Message left on Dr. Cardenas's voice mail.
--- NOTE | 2020-02-24 17:12 | PM.IMPN ---
Progress Note: A&P Assessment and Plan (1) Acute respiratory failure: Qualifiers: Respiratory failure complication: unspecified whether with hypoxia or hypercapnia Qualified Code(s): J96.00 - Acute respiratory failure, unspecified whether with hypoxia or hypercapnia Code(s): J96.00 - Acute respiratory failure, unspecified whether with hypoxia or hypercapnia Status: Acute Assessment and Plan: 02/24/20 17:12 Healthcare associated pneumonia versus covid 19. Patient was placed in ICU . she is intubated placed on a ventilator. She is listed as a full code. Ventilator settings per director of strategic initiatives. Patient is on vancomycin cefepime and azithromycin for the possibility healthcare associated pneumonia. She is also placed on Decadron due to the COVID-19. No antiviral at this time. Due to the acute renal failure and elevated liver enzymes. 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 department with respiratory distress and emergency department patient was intubated as patient was quite hypoxic, and transferred to ICU, suspect patient may have healthcare associated pneumonia as patient was recently discharged from the hospital as well as patient is positive COVID-19, has sepsis most likely secondary to healthcare associated pneumonia patient is being treated with Broad-spectrum antibiotics vancomycin cefepime, urine culture is growing Klebsiella pneumonia sensitive to cefepime, patient was started on tube feeding, patient still on pressors, patient blood sugar were elevated patient was started on IV insulin infusion to bring the blood sugar under control though patient was not in DKA, on 02/01 patient was given trial weaning off the vent however patient became quite tachypneic and hypoxic, patient was sedated and vent was resumed. will continue to monitor prognosis is poor. on 02/05 patient been off sedation for 72 hours however patient was not responding, patient opens her eyes but does not follow any instruction CT scan of the head was negative for any acute injury, patient was seen Dr. Morley EEG was not conclusive and suggested most likely has organic and or metabolic cause of her encephalopathy. Patient sputum culture grew Stenotrophomonas was seen by Dr. Narayan suspect most likely colonization rather than true infection recommend continue levaquin 7 days completed, recommended completed the 10 days course of dexamethasone, on 02/13 again patient was given trial of SBT in hope to wean the patient off the ventilator, was unable to wean the patient off ventilator. However on 02/14 patient was successfully extubated and placed on 1 L N/C with good saturation patient was transferred out of ICU now in IMU, today 02/19 patient is off all antibiotics, patient still quite somnolent unable to provide any review of symptom, patient is tolerating tube feeds will monitor sugars the sliding scale, will start the patient on updraft, will continue to monitor patient, will have a PT OT evaluate the patient and further recommendation to follow. there is a concerned the patient may have anoxic brain injury upon arrival is patient was found unresponsive before caming to emergency department, I spoke with neurologist today will do MRI of the brain to further evaluate and further recommendation to follow, a spoke with the patient's daughter and her father who happens to be physician and answered all the questions apparently there is history systolic dysfunction with ejection fraction of 35%, will do the cardiac echo to further evaluate, will follow-up on the MRI and cardiac echo will communicate with the family and update all the finding, patient can be discharged to shelter. on 02/22 I had long conversation with the family informed that cardiac echo was normal with EF of 65%, I reviewed today CXR with the radiologist and there is no acute infiltrates just persisting infiltretes since admission,
[2020-02-24 19:04] LABS: Glucose Point of Care 95 (65-105)
[2020-02-24] MEDS: HEPARIN SODIUM 5,000 UNITS/ML VIAL 5000 UNITS SUB-Q (22:52)
[2020-02-25] VITALS (17 sets, daily range): BP systolic 103–140; BP diastolic 47–70; PULSE 70–92; RESP 18–24; TEMP 36.3–37.1; O2SAT 90–100
[2020-02-25] MEDS: HYDROCORTISONE SODIUM SUCCINATE 100 MG/2 ML VIAL 200 MG IV PUSH ×3 (00:22→12:33)
[2020-02-25 00:38] LABS: Glucose Point of Care 114 (65-105)
[2020-02-25] MEDS: ALBUTEROL SULFATE NEB 2.5 MG/0.5 ML INH INHALATION ×5 (01:00→19:30)
[2020-02-25] MEDS: IPRATROPIUM BR 0.02% INH SOLN 0.5 MG/2.5 ML VIAL INHALATION ×5 (01:00→19:30)
[2020-02-25] MEDS: LACTATED RINGERS 1,000 ML 150 ML IV CONT (05:23)
[2020-02-25] MEDS: HEPARIN SODIUM 5,000 UNITS/ML VIAL 5000 UNITS SUB-Q ×3 (05:29→22:08)
[2020-02-25] MEDS: INSULIN ASPART (*BKC) 100 UNITS/ML SUB-Q ×3 (05:31→18:52)
[2020-02-25] MEDS: CENTRAL LINE FLUSH 10 ML IV PUSH ×2 (05:35→14:10)
[2020-02-25 05:58] LABS: Glucose Point of Care 227 (65-105)
--- NOTE | 2020-02-25 07:34 | WPDGIPROGNO ---
Progress Note: A&P Assessment and Plan (1) PEG (percutaneous endoscopic gastrostomy) status: Code(s): Z93.1 - Gastrostomy status Status: Acute Assessment and Plan: PEG SITE HEALING WELL. PLAN TO INCREASE TUBE FEEDINGS TO60CC AN HOUR. CONTINUE LOCAL CARE TO PEG SITE. IF ANTICOAGULATION NEEDED IT WOULD BE OKAY TO RESUME PLAN MED AT THIS TIME. (2) Brain tumor: Code(s): D49.6 - Neoplasm of unspecified behavior of brain Status: Chronic (3) Altered mental status: Qualifiers: Altered mental status type: unspecified Qualified Code(s): R41.82 - Altered mental status, unspecified Code(s): R41.82 - Altered mental status, unspecified Status: Resolved (4) DM2 (diabetes mellitus, type 2): Qualifiers: Diabetes mellitus penitentiary insulin use: with intermodal dispatcher use Diabetes mellitus complication status: without complication Qualified Code(s): E11.9 - Type 2 diabetes mellitus without complications; Z79.4 - penitentiary (current) use of insulin Code(s): E11.9 - Type 2 diabetes mellitus without complications Status: Chronic Subjective Date/time seen: 02/25/20 07:34 PATIENT'S MENTAL STATUS UNCHANGED. SHE REMAINS NONVERBAL. TOLERATING TUBE FEEDINGS OVERNIGHT. Exam Narrative: Exam Narrative: ABDOMEN IS SOFT PEG TUBE SITE HEALING WELL. BOWEL SOUNDS PRESENT NONTENDER NO ORGANOMEGALY. Objective Data Vital Signs Vital Signs: Vital Signs - 24 hr 02/24/20 08:00 02/24/20 08:30 02/24/20 08:40 Temperature Pulse Rate 85 83 85 Respiratory Rate 16 16 16 Blood Pressure Pulse Oximetry 92 92 02/24/20 12:52 02/24/20 14:12 02/24/20 14:22 Temperature 97.8 F Pulse Rate 94 83 83 Respiratory Rate 26 H 31 H 29 H Blood Pressure 115/66 114/59 L 106/46 L Pulse Oximetry 97 89 L 83 L 02/24/20 14:32 02/24/20 14:35 02/24/20 14:42 Temperature Pulse Rate 95 85 95 Respiratory Rate 29 H 20 29 H Blood Pressure 113/57 L 117/60 Pulse Oximetry 96 96 02/24/20 14:52 02/24/20 15:02 02/24/20 15:12 Temperature Pulse Rate 95 95 95 Respiratory Rate 29 H 27 H 24 H Blood Pressure 114/57 L 118/56 L 124/60 Pulse Oximetry 97 95 94 02/24/20 15:35 02/24/20 15:50 02/24/20 16:20 Temperature 98.0 F 97.4 F L 97.2 F L Pulse Rate 87 85 82 Respiratory Rate 20 20 20 Blood Pressure 103/55 L 116/59 L 123/53 L Pulse Oximetry 100 95 95 02/24/20 16:45 02/24/20 16:54 02/24/20 17:20 Temperature 99.0 F Pulse Rate 91 84 90 Respiratory Rate 20 20 20 Blood Pressure 117/53 L Pulse Oximetry 93 99 02/24/20 20:00 02/24/20 20:45 02/24/20 21:07 Temperature 98.3 F Pulse Rate 88 91 Respiratory Rate 20 22 H Blood Pressure 124/56 L Pulse Oximetry 99 97 97 02/24/20 21:13 02/24/20 21:30 02/25/20 00:00 Temperature 98.6 F Pulse Rate 90 88 Respiratory Rate 22 H 20 Blood Pressure 108/47 L Pulse Oximetry 95 100 02/25/20 01:00 02/25/20 01:07 02/25/20 03:59 Temperature Pulse Rate 84 82 86 Respiratory Rate 18 18 24 H Blood Pressure Pulse Oximetry 02/25/20 04:00 02/25/20 04:06 Temperature 98.0 F Pulse Rate 89 92 Respiratory Rate 20 24 H Blood Pressure 140/70 Pulse Oximetry 96 Intake/Output Intake/Output: Intake & Output 02/22/20 02/23/20 02/24/20 02/25/20 23:59 23:59 23:59 23:59 Intake Total 420 743 824 8499 Output Total 350 690 500 900 Balance 70 -154 -300 150 Meds/Results Medications: Active Medications Generic Name Dose Route Start Last Admin Trade Name Freq PRN Reason Stop Dose Admin Acetaminophen 650 mg 02/08/20 11:26 Acetaminophen Elixir 325 Mg/10.15 Ml Udc PO Q6H PRN Mild Pain (1-3) or Fever Albuterol 2.5 mg 01/28/20 13:00 02/13/20 07:53 Albuterol Sulfate Neb 2.5 Mg/0.5 Ml Inh INHALATION 2.5 mg Q4HRT PRN Administration Shortness Of Breath Albuterol 2.5 mg 02/22/20 16:00 02/25/20 03:59 Albuterol Sulfate Neb 2.5 Mg/0.5 Ml Inh INHALATION 2.5 mg Q4HRT BRYCE Admi
[2020-02-25 08:02] LABS: Alanine Aminotransferase 23 U/L (4-35); Albumin Level 3.1 g/dL (3.5-5.1); Alkaline Phosphatase 98 U/L (38-126); Anion Gap 8 mmol/L (8-16); Aspartate Amino Transferase 45 U/L (14-36); Bilirubin,Total 0.3 mg/dL (0.2-1.3); Blood Urea Nitrogen 11 mg/dL (7-17); Calcium 8.3 mg/dL (8.4-10.2); Carbon Dioxide 26 mmol/L (22-30); Chloride 107 mmol/L (98-107); Estimated CRCL calculation 46 ml/min; Estimated Glomerular Filt Rate > 60; Glucose 262 mg/dL (65-105); Sodium 141 mmol/L (137-145)
[2020-02-25 08:42] LABS: Hemoglobin 8.7 g/dL (12.0-15.0); Mean Corpuscular Hemoglobin 26.2 pg (26-34); Mean Corpuscular Volume 87.3 fl (80-100); Mean Platelet Volume 9.1 fl (7.4-10.4); Platelet Count Result 471 k/mm3 (150-375); Red Blood Count 3.32 M/mm3 (4.2-5.4); Red Cell Distribution Width 18.1 % (11.5-14.5); White Blood Count 7.8 K/mm3 (4.5-10.0)
[2020-02-25] MEDS: CHOLECALCIFEROL 1,000 UNITS TABLET 1000 UNITS PO (09:22)
[2020-02-25] MEDS: FAMOTIDINE 20 MG/2 ML VIAL IV PUSH (09:22)
[2020-02-25] MEDS: MIDODRINE HCL 10 MG TABLET FEED TUBE ×3 (09:22→16:07)
[2020-02-25] MEDS: ASCORBIC ACID 500 MG TABLET PO (09:22)
--- NOTE | 2020-02-25 11:24 | PCNFU ---
Nutrition Follow-Up Complete: Inadequate oral intake related to oral intubation as evidenced by need for tube feeding. Goal; Patient to meet estimated nutritional needs. Progressing towards goal. We will continue current goal. Pt current nutrition is tube feeding of Glucerna 1.2. Nutrition recommendation: Agree Last recorded weight is 68.6 kg up from 68.2 on admit. Bowel Motility:+BM reported 02/24 Labs Reviewed:BUN 26,NA 131, Alb 2.6,Glu 128 Meds Noted:LR 1000 ml at 150 ml/hr, NovoLog, Vit D, Vit C, Zosyn,Pepcid Additional Notes: Patient had PEG placed yesterday. Tube feeding currently on hold for CTA today. Goal rate of tube feedings are at 60 ml/hr providing 1584 kcals and 79 gms protein. Meeting 100% of caloric needs. Monitoring: Follow up every Friday/Friday.
[2020-02-25] MEDS: diphenhydrAMINE HCl INJ 50 MG/ML VIAL IV PUSH (12:33)
[2020-02-25 13:03] LABS: Glucose Point of Care 212 (65-105)
--- NOTE | 2020-02-25 13:33 | PCRCNOTE ---
pt. not in room at this time, tx. not done
--- NOTE | 2020-02-25 14:37 | PM.DS ---
DS: Admitting Diagnosis Admitting Diagnosis Admitting Diagnosis: Respiratory Failure/kath/COVID Pneumonia/hypernatre DS: Discharge Diagnosis Discharge Diagnosis (1) Acute respiratory failure: Qualifiers: Respiratory failure complication: unspecified whether with hypoxia or hypercapnia Qualified Code(s): J96.00 - Acute respiratory failure, unspecified whether with hypoxia or hypercapnia Code(s): J96.00 - Acute respiratory failure, unspecified whether with hypoxia or hypercapnia Status: Acute Assessment and Plan: 02/24/20 17:12 Healthcare associated pneumonia versus covid 19. Patient was placed in ICU . she is intubated placed on a ventilator. She is listed as a full code. Ventilator settings per certified nurse. Patient is on vancomycin cefepime and azithromycin for the possibility healthcare associated pneumonia. She is also placed on Decadron due to the COVID-19. No antiviral at this time. Due to the acute renal failure and elevated liver enzymes. 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 department with respiratory distress and emergency department patient was intubated as patient was quite hypoxic, and transferred to ICU, suspect patient may have healthcare associated pneumonia as patient was recently discharged from the hospital as well as patient is positive COVID-19, has sepsis most likely secondary to healthcare associated pneumonia patient is being treated with Broad-spectrum antibiotics vancomycin cefepime, urine culture is growing Klebsiella pneumonia sensitive to cefepime, patient was started on tube feeding, patient still on pressors, patient blood sugar were elevated patient was started on IV insulin infusion to bring the blood sugar under control though patient was not in DKA, on 02/01 patient was given trial weaning off the vent however patient became quite tachypneic and hypoxic, patient was sedated and vent was resumed. will continue to monitor prognosis is poor. on 02/05 patient been off sedation for 72 hours however patient was not responding, patient opens her eyes but does not follow any instruction CT scan of the head was negative for any acute injury, patient was seen Dr. Morley EEG was not conclusive and suggested most likely has organic and or metabolic cause of her encephalopathy. Patient sputum culture grew Stenotrophomonas was seen by Dr. Narayan suspect most likely colonization rather than true infection recommend continue levaquin 7 days completed, recommended completed the 10 days course of dexamethasone, on 02/13 again patient was given trial of SBT in hope to wean the patient off the ventilator, was unable to wean the patient off ventilator. However on 02/14 patient was successfully extubated and placed on 1 L N/C with good saturation patient was transferred out of ICU now in IMU, today 02/19 patient is off all antibiotics, patient still quite somnolent unable to provide any review of symptom, patient is tolerating tube feeds will monitor sugars the sliding scale, will start the patient on updraft, will continue to monitor patient, will have a PT OT evaluate the patient and further recommendation to follow. there is a concerned the patient may have anoxic brain injury upon arrival is patient was found unresponsive before caming to emergency department, I spoke with neurologist today will do MRI of the brain to further evaluate and further recommendation to follow, a spoke with the patient's daughter and her father who happens to be physician and answered all the questions apparently there is history systolic dysfunction with ejection fraction of 35%, will do the cardiac echo to further evaluate, will follow-up on the MRI and cardiac echo will communicate with the family and update all the finding, patient can be discharged to [facility]. on 02/22 I had long conversation with the family informed that cardiac echo was normal with EF o
[2020-02-25 18:53] LABS: Glucose Point of Care 220 (65-105)
--- NOTE | 2020-02-26 05:15 | PC.NURSE ---
@[id number] this nurse called the [facility] and notified her that this patient was being discharged and transported back to [facility] re[facility]. All questions answered, stated by Julia WATTS.
== END 2020-02-25 22:18 | DRG 870 ==
LOC: ANHED 09:00 → ANHICU 12:46 → ANH3MEDSUR 02-23 11:03 → ANHICU 02-28 12:06 → ANHIMU 02-28 12:06
PROVIDERS: Family Medicine; Internal Medicine; Internal Medicine Gastroenterology; Nurse Practitioner; Physician Assistant; Admitting Provider Internal Medicine; Emergency Provider Emergency Medicine; PCP Family Medicine; Visit Provider Family Medicine
PROC: 0DH63UZ Insertion of Feeding Device into Stomach, Percutaneous Approach (ICD-10-PCS; CPT 43246; principal; 2020-02-24 11:00)
DX: A41.89 Other specified sepsis (principal); U07.1 COVID-19; J12.89 Other viral pneumonia; G93.41 Metabolic encephalopathy; J96.01 Acute respiratory failure with hypoxia; R65.21 Severe sepsis with septic shock; E87.0 Hyperosmolality and hypernatremia; N17.9 Acute kidney failure, unspecified; N39.0 Urinary tract infection, site not specified; B96.1 Klebsiella pneumoniae [K. pneumoniae] as the cause of diseases classified elsewhere; B96.89 Other specified bacterial agents as the cause of diseases classified elsewhere; E11.9 Type 2 diabetes mellitus without complications; K21.9 Gastro-esophageal reflux disease without esophagitis; D49.6 Neoplasm of unspecified behavior of brain; F03.90 Unspecified dementia, unspecified severity, without behavioral disturbance, psychotic disturbance, mood disturbance, and anxiety; Z87.891 Personal history of nicotine dependence; E86.0 Dehydration; Z79.4 Long term (current) use of insulin; K76.0 Fatty (change of) liver, not elsewhere classified; Z98.890 Other specified postprocedural states
CPT/HCPCS: 31500; 36415; 36430; 36569; 36600; 43246; 51702; 70450; 70551; 71045; 71275; 74019; 76705; 76775; 78580; 80048; 80053; 80076; 80202; 81001; 82010; 82140; 82306; 82375; 82533; 82728; 82805; 83036; 83050; 83605; 83615; 83735; 83880; 83935; 84100; 84300; 84443; 85025; 85027; 85380; 85610; 85730; 85999; 86140; 86900; 86901; 87040; 87070; 87077; 87086; 87088; 87186; 87205; 87635; 93306; 93970; 93971; 94003; 94640; 95816; 96361; 96365; 96366; 96367; 96368; 96375; 99291; A9270; A9540; C1751; C9803; G0378; J0461; J0690; J0692; J1100; J1200; J1644; J1650; J1720; J1815; J1940; J1956; J2250; J2543; J2704; J2765; J2997; J3010; J3370; J3475; J3480; J7030; J7040; J7042; J7070; J7120; P9059; Q9967; U0003

== ENCOUNTER 2020-03-16 14:21 | Inpatient (IN) | payer MEDICARE, MEDICAID, SELFPAY ==
[2020-03-16] VITALS (14 sets, daily range): BP systolic 97–146; BP diastolic 42–81; PULSE 89–125; RESP 20–44; TEMP 36.6–38.4; O2SAT 90–100; BMI 23.1
--- NOTE | ~2020-03-16 | XR_ITS ---
XR chest 1V portable 03/27/2020 06:17 Indication: Dyspnea. Follow-up infiltrates. Procedure: AP portable chest Comparison: Comparison to multiple prior studies sequentially, with oldest reviewed study dated 02/12/2020. Findings: Bilateral perihilar airspace disease. No pleural effusion or pneumothorax. Heart size kathie l. No acute osseous abnormality. Impression: 1: Bilateral perihilar infiltrates may represent edema or pneumonia. Reviewed, dictated and finalized at location A. RONMENTAL SERVICES ASSOCIATE Impression: 1: Bilateral perihilar infiltrates may represent edema or pneumonia.
--- NOTE | ~2020-03-16 | CT_ITS ---
EXAMINATION: CT chest abdomen pelvis wo con DATE: 03/16/2020 15:23 FEED ADVISER INDICATION: Fever, vomiting and possible aspiration TECHNIQUE: Computed tomography (CT) of the chest, abdomen, and pelvis was performed without intraveno us contrast. The dose-length product was 952.36 mGy-cm. Automated exposure control and iterative selene nstruction technique were employed. COMPARISON: CT dated 02/25/2020 FINDINGS: CHEST CT: There is dependent airspace disease of the right upper and bilateral lower lobes. There is atheroscle rosis. Heart size normal. No significant pleural or pericardial effusion. No thoracic lymphadenopathy . No endobronchial lesion. No suspicious pulmonary nodules or masses. ABDOMEN/PELVIS CT: There is a 2.6 cm liver cyst right hepatic lobe. There is a hyperdense cyst of the left kidney measur ing 1.4 cm. The spleen, pancreas, adrenal glands and right kidney are unremarkable. Nonobstructive bindu wel gas pattern. Colonic diverticulosis. There is a gastric tube in expected position. No evidence fo r diverticulitis or appendicitis. There are calcified uterine fibroids. Hodge catheter present in the bladder. No abnormal pelvic masses or fluid collections. No acute osseous abnormality. IMPRESSION: 1. Dependent airspace disease of the right upper and bilateral lower lobes in a pattern consistent wi th aspiration pneumonia. 2: No acute abnormality of the abdomen or pelvis. Reviewed, dictated and finalized at location A. ADVISER IMPRESSION: 1. Dependent airspace disease of the right upper and bilateral lower lobes in a pattern consistent with aspiration pneumonia. 2: No acute abnormality of the abdomen or pelvis.
--- NOTE | ~2020-03-16 | MR_ITS ---
EXAMINATION: MR cervical spine wo con DATE: 03/28/2020 10:00 INDICATION: Neck pain. TECHNIQUE: Magnetic resonance imaging (MRI) of the cervical spine was performed without intravenous c ontrast. Sequences included sagittal T2-weighted FSE, sagittal STIR FSE, sagittal T1-weighted FSE, ax ial MERGE, and axial T2-weighted FSE. COMPARISON: None FINDINGS: Motion artifact is noted. There is 10 degrees levoscoliosis of cervicothoracic spine. Verte bral body heights are normal. There is mildly decreased disc height at C3-C4, severely decreased disc height at C4-C5, mildly decreased disc height at C5-C6, and moderately decreased disc height at C6-C 7. The spinal cord signal intensity is normal. The following disc levels are specifically discussed: C2-C3: The disc does not extend beyond the endplate margin. There is no uncovertebral joint osteoarth ritis. There is mild bilateral facet joint osteoarthritis. There is no neural foraminal stenosis. The re is no central canal stenosis. C3-C4: There is a central extrusion. There is mild bilateral uncovertebral joint osteoarthritis. Ther e is severe right facet joint osteoarthritis. There is likely ankylosis of left facet joint with mild hypertrophy. There is mild right neural foraminal stenosis. There is mild central canal stenosis. C4-C5: The disc is bulging. There is severe bilateral uncovertebral joint osteoarthritis. There is mo derate bilateral facet joint osteoarthritis. There is moderate bilateral neural foraminal stenosis. T here is mild central canal stenosis. C5-C6: The disc is bulging. There is mild bilateral uncovertebral joint osteoarthritis. There is odilon re bilateral facet joint osteoarthritis. There is no neural foraminal stenosis. There is mild central canal stenosis. C6-C7: The disc is bulging. There is moderate right and mild left uncovertebral joint osteoarthritis. There is no facet joint osteoarthritis. There is no neural foraminal stenosis. There is mild central canal stenosis. C7-T1: The disc does not extend beyond the endplate margin. There is no uncovertebral joint osteoarth ritis. There is moderate left facet joint osteoarthritis. There is mild left neural foraminal stenosi s. There is no central canal stenosis. IMPRESSION: 1. Moderate cervical spondylosis. Reviewed, dictated and finalized at location A. E MASTER
--- NOTE | ~2020-03-16 | XR_ITS ---
EXAMINATION: XR G tube evaluation w imaging DATE: 03/23/2020 08:51 INDICATION: Evaluate G-tube position and gastric emptying. TECHNIQUE: Portable AP supine view of the abdomen was obtained following injection of 6 mL Omnipaque 350 into the patient's existing percutaneous gastrostomy tube. COMPARISON: CT dated 03/16/2020 FINDINGS: Contrast fills the stomach signed the inflated bulb of a percutaneous gastrostomy tube which is in ex pected position at the distal body of the stomach. Contrast extends into the duodenum with normal muc osal pattern. No extraluminal leakage of contrast. No dilated loops of gas-filled bowel to suggest ob struction. Coarse reticular pattern at the bilateral lung bases. IMPRESSION: 1. Nasogastric tube in the stomach with contrast in the stomach and duodenum 2. Bibasilar lung disease which could represent chronic interstitial fibrosis, atelectasis, pulmonary edema or pneumonia. Reviewed, dictated and finalized at location A. NEER FIRST ASSISTANT
--- NOTE | ~2020-03-16 | XR_ITS ---
XR chest 1V portable 03/19/2020 20:31 Indication: Shortness of breath and congestion Procedure: AP portable chest Comparison: Comparison to multiple prior studies sequentially, with oldest reviewed study dated 06/13. Findings: There are coarse interstitial infiltrates throughout the right lung and left lower lung zon e. Heart size normal. No significant effusion or pneumothorax. There is apical pleural thickening. No acute osseous abnormality. Impression: 1: Coarse interstitial infiltrates diffusely in the right lung and left lower lung zone. Differential diagnosis includes pneumonia, atelectasis and/or chronic fibrosis. Reviewed, dictated and finalized at location A. RANCE CONSULTANT Impression: 1: Coarse interstitial infiltrates diffusely in the right lung and left lower l skylar zone. Differential diagnosis includes pneumonia, atelectasis and/or chronic fibrosis.
--- NOTE | 2020-03-16 14:29 | ECG_ITS ---
Measurements Intervals [place] Rate: 0 P: AK: 0 QRS: QRSD: 0 T: QT: 0 QTc: 0 Interpretive Statements SINUS TACHYCARDIA LOW VOLTAGE- LIMB LEADS BORDERLINE R WAVE PROGRESSION, ANTERIOR LEADS CONSIDER INFERIOR INFARCT, AGE INDETERMINATE BORDERLINE ST-T WAVE ABNORMALITY- ANT/HIGH LAT LEADS BASELINE ARTIFACT- I, II, III, AVR, AVL, AVF, V3-V6 ABNORMAL ECG Electronically Signed On 03-16-2020 15:05:25 EMBLEM DRAWER IN by Bryon Reyes D.O.
--- NOTE | 2020-03-16 14:32 | ED.FEVER ---
HPI - Fever General Chief Complaint: Shortness of Breath/Dyspnea Stated Complaint: Emesis - poss aspiration History of Present Illness HPI Narrative: 75 yo female [facility] by [facility] for fever. She reportedly had COVID-19 in December. She was intubated and hospitalized for 3 weeks. Since that time she has been G-tube dependent and nonverbal. today she was vomiting and had a fever. They were concerned about possible aspiration. History limited by mental status. Related Data Home Medications Medication Instructions Recorded Confirmed Lactobacillus acidophilus 10 mg FEEDING TUBE DAILY 10/24/19 03/16/20 [Acidophilus] oxybutynin chloride 5 mg PO DAILY 10/24/19 03/16/20 ergocalciferol (vitamin D2) 1,250 mcg FEEDING TUBE WEEKLY 01/28/20 03/16/20 omeprazole 20 mg FEEDING TUBE BID 01/28/20 03/16/20 ascorbic acid (vitamin C) [Vitamin 500 mg FEEDING TUBE DAILY 03/16/20 03/16/20 C] miconazole nitrate [Aloe [place] 1 applic TOPICAL BID 03/16/20 03/16/20 Antifungal] promethazine 25 mg [place] Q6H PRN 03/16/20 03/16/20 sennosides-docusate sodium [Senna 1 tab-cap PO BID PRN 03/16/20 03/16/20 Plus] Allergies Allergy/AdvReac Type Severity Reaction Status Date / Time shellfish derived Allergy Unknown Hives Verified 03/16/20 16:05 codeine Allergy Unknown Verified 03/16/20 16:05 erythromycin base Allergy Unknown Verified 03/16/20 16:05 hydrocodone Allergy Unknown Verified 03/16/20 16:05 ibuprofen Allergy Unknown Verified 03/16/20 16:05 Iodinated Contrast Media Allergy Unknown Verified 03/16/20 16:05 meperidine Allergy Unknown Verified 03/16/20 16:05 mepivacaine [From Carbocaine] Allergy Unknown Verified 03/16/20 16:05 propoxycaine Allergy Unknown Verified 03/16/20 16:05 propoxyphene Allergy Unknown Verified 03/16/20 16:05 Sulfa (Sulfonamide Allergy Unknown Verified 03/16/20 16:05 Antibiotics) Review of Systems Review of Systems: ROS unobtainable: Yes unobtainable due to mental status PMFSH Past Medical History Medical History Brain tumor the patient stated that she had 3 brain tumors and that too were not able to be removed in only 1 removed. Chronic GERD DM2 (diabetes mellitus, type 2) DM2 (diabetes mellitus, type 2) Surgical History Surgical History H/O brain surgery she stated that she only had 1 brain tumor removed. History of brain surgery resection of brain tumor Family History Family History Mother Diabetes mellitus Father Lung cancer Sibling Breast cancer she has Social History Social History Social History: according to her records she does not smoke or drink any more however she is listed as a former smoker. she [facility] . She is listed as . she does have a durable power foxer for healthcare. She has a armaan Lenin [phone] is a durable power foxer. She also has her brother Larry listed as a flowers salesperson [phone]. Years smoked: 46 Smoking status: Former smoker Tobacco type: cigarettes Second hand tobacco smoke exposure: No Smoking end date: 10/22/17 Alcohol intake: unknown Substance use: unknown Substance use type: does not use Gender identity (if verbalized by the patient): Female Spiritual care concerns: No Exam Const: General: ill appearing Other: Obtunded HENMT: Head: normal to inspection Eyes: Pupils: Equal, round and reactive pupils present Resp: Effort & Inspection: tachypneic Auscultation: rhonchi and wheezes Cardio: Rate: tachycardic GI: GI Palp: Yes Soft to palpation and No Tenderness to palpation present (GI) Urinary Catheter: Urinary Catheter: patent and draining and urine cloudy Skin: General skin exam: normal color Neuro: General: mov
[2020-03-16 15:10] LABS: Basophils Absolute Auto 0.1 K/mm3 (0.0-0.1); Basophils Percent Auto 0.7 % (0.2-1.2); Eosinophils Absolute Auto 0.8 K/mm3 (0-0.3); Eosinophils Percent Auto 4.8 % (0-4.4); Hematocrit 35.9 % (37.0-47.0); Hemoglobin 10.9 g/dL (12.0-15.0); Immature Granulocyte Absolute 0.14 K/mm3 (0.00-0.031); Immature Granulocyte Percent A 0.8 % (0-0.5); Lymphocytes Absolute Auto 2.53 K/mm3 (0.9-3.2); Lymphocytes Percent Auto 14.8 % (18.3-44.2); Mean Corpuscular HGB Conc 30.4 g/dl (32-36); Mean Corpuscular Hemoglobin 26.5 pg (26-34); Mean Corpuscular Volume 87.3 fl (80-100); Mean Platelet Volume 9.3 fl (7.4-10.4); Monocytes Absolute Auto 0.8 K/mm3 (0.1-0.6); Monocytes Percent Auto 4.4 % (2.6-8.5); Neutrophils Absolute Auto 12.8 K/mm3 (1.3-6.7); Neutrophils Percent Auto 74.5 % (45.5-73.1); Platelet Count Result 386 k/mm3 (150-375); Red Blood Count 4.11 M/mm3 (4.2-5.4); Red Cell Distribution Width 17.8 % (11.5-14.5); White Blood Count 17.1 K/mm3 (4.5-10.0)
[2020-03-16 15:21] LABS: INR 1.1; Prothrombin Time 14.8 Seconds (11.1-14.7)
[2020-03-16 15:22] LABS: Lactic Acid Reflex 3.2 mmol/L (0.7-2.1); Partial Thromboplastin Time 29.7 SECONDS (22.3-36.8)
[2020-03-16 15:26] LABS: Alanine Aminotransferase 47 U/L (4-35); Albumin Level 4.1 g/dL (3.5-5.1); Alkaline Phosphatase 83 U/L (38-126); Anion Gap 11 mmol/L (8-16); Aspartate Amino Transferase 55 U/L (14-36); Bilirubin,Total 0.4 mg/dL (0.2-1.3); Blood Urea Nitrogen 20 mg/dL (7-17); CRP 2.6 mg/dL (<1.0); Calcium 9.5 mg/dL (8.4-10.2); Carbon Dioxide 33 mmol/L (22-30); Chloride 93 mmol/L (98-107); Estimated CRCL calculation 44 ml/min; Estimated Glomerular Filt Rate > 60; Glucose 204 mg/dL (65-105); Lipase 235 U/L (23-300); Potassium 3.7 mmol/L (3.4-5.0); Sodium 137 mmol/L (137-145)
[2020-03-16] MEDS: AMPICILLIN SULB 3 GM/NS 100 ML 3 GM/100 ML VIAL IVPB (16:12)
[2020-03-16 16:32] LABS: Add Urine Microscopic? YES; Appearance Urine Cloudy (Clear); Bilirubin Urine Negative (Negative); Color Urine Yellow (Yellow); Glucose Urine UA Negative (Negative); Ketones Urine Trace mg/dL (Negative); Leukocyte Esterase Ur Trace LEU/UL (Negative); Mucus Urine Rare /lpf; Nitrate Urine Negative (Negative); Protein Urine 2+ mg/dL (Negative); Specific Grav Ur 1.024 (1.001-1.035); Squamous Epithelial Cell Urine Rare /hpf (Few); WBC Clumps Urine Present /HPF
[2020-03-16 16:35] LABS: Blood Urine Negative (Negative)
[2020-03-16 18:08] LABS: Reflex Lactic Acid Yes or No Add Lactic
--- NOTE | 2020-03-16 18:54 | ADMGEN ---
This patient, Linette Vásquez, was admitted to IMU Room 207-01 on 03/16/2020 at 1850. Patient/family oriented to hospital policies and general routines including ID bracelet, bed and alarms, visiting hours, pain management, procedures, bathroom and other care routines, personal items, smoking policy, room service/diet, and visiting hours. Information on how to activate the Rapid Response Team has been discussed. Patient/Family are encouraged to report perceived risks to care and to ask questions if they do not understand what they are told or what they should do.
[2020-03-16] MEDS: LACTATED RINGERS 1,000 ML 75 ML IV CONT (19:01)
[2020-03-16 19:54] LABS: Lactic Acid 2.2 mmol/L (0.7-2.1)
[2020-03-16 20:06] LABS: Glucose Point of Care 202 (65-105)
[2020-03-16] MEDS: IPRATROPIUM BR 0.02% INH SOLN 0.5 MG/2.5 ML VIAL INHALATION (20:42)
[2020-03-16] MEDS: ALBUTEROL SULFATE NEB 2.5 MG/0.5 ML INH 5 MG INHALATION (20:42)
--- NOTE | 2020-03-16 21:00 | PM.IMHP ---
H&P: HPI History of Present Illness Date/Time: 03/16/20 21:00 Chief Complaint: Suspected aspiration. Narrative: Linette Vásquez is a 75-year-old female who presented to the emergency department earlier today via EMS from [facility] with suspected aspiration. She is known to the hospitalist service with a recent, lengthy stay from 01/28/2020 to 02/25/2020 at which time she was admitted with septic shock, acute respiratory failure, and encephalopathy attributed to COVID pneumonia. Unfortunately she never fully recovered with regards to the encephalopathy and she has been essentially nonverbal since that time and now requires assistance with all ADLs. She was unable to pass a swallow study and now has a G-tube in which she is receiving bolus feeds. After discussions with her family, it sounds as though she has had several episodes of emesis recently and this morning she had a large episode of emesis followed by significant hypoxia. She was indeed found to have evidence of aspiration pneumonia and is being admitted in this setting. At the time my evaluation she is alert and has a frequent, loose cough although it does not seem as though she is able to get anything up. She is using a Kleenex to rub her nose but she does not make any other purposeful movements. She stated yes when I asked if her name was Linette, but she answered no other questions. Review of Systems Review of Systems: Narrative: Unable to be obtained given clinical condition as detailed above. 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 Surgical History Surgical History (Updated 03/16/20 @ 23:55 by Nandini Parra PA-C) History of craniotomy Right frontal lobe craniotomy with resection of oligodendroglioma. Family History Family History Mother Diabetes mellitus Father Lung cancer Sibling Breast cancer she has Social History Social History (Updated 03/16/20 @ 23:56 by Nandini Parra PA-C) Social History: The patient is currently a resident at [facility]. She smoked for approximately 46 years and quit in October 2017. No mention of alcohol or illicit substance abuse. Her niece, Julia Phelps, is her healthcare power of trust and estates attorney. The patient is a full code. Years smoked: 46 Smoking status: Former smoker Tobacco type: cigarettes Second hand tobacco smoke exposure: No Smoking end date: 10/22/17 Alcohol intake: unknown Substance use: unknown Substance use type: does not use Gender identity (if verbalized by the patient): Female Spiritual care concerns: No Meds Home Medications and Allergies Home Medications Medication Instructions Recorded Confirmed Type Lactobacillus acidophilus 10 mg FEEDING TUBE DAILY 10/24/19 03/16/20 History [Acidophilus] oxybutynin chloride 5 mg PO DAILY 10/24/19 03/16/20 History ergocalciferol (vitamin D2) 1,250 mcg FEEDING TUBE WEEKLY 01/28/20 03/16/20 History omeprazole 20 mg FEEDING TUBE BID 01/28/20 03/16/20 History albuterol sulfate 2.5 mg INHALATION Q4HRT PRN #1 vial 02/25/20 03/16/20 Rx ipratropium bromide 0.5 mg INHALATION Q4HRT #1 vial 02/25/20 03/16/20 Rx midodrine 10 mg FEEDING TUBE TID #90 tablet 02/25/20 03/16/20 Rx ascorbic acid (vitamin C) [Vitamin 500 mg FEEDING TUBE DAILY 03/16/20 03/16/20 History C] miconazole nitrate [Aloe [place] 1 applic TOPICAL BID 03/16/20 03/16/20 History Antifungal] promethazine 25 mg [place] Q6H PRN 03/16/20 03/16/20 History sennosides-docusate sodium [Senna 1 tab-cap PO BID PRN 03/16/20 03/16/20 History Plus] Allergies Al
[2020-03-16] MEDS: WATER FOR IRRIGATION, STERILE 1,000 ML BOTTLE 1000 ML (21:29)
[2020-03-17] VITALS (24 sets, daily range): BP systolic 108–115; BP diastolic 44–90; PULSE 47–103; RESP 18–24; TEMP 36.3–36.9; O2SAT 89–100
[2020-03-17] MEDS: AMPICILLIN SULB 3 GM/NS 100 ML 3 GM/100 ML VIAL IVPB ×4 (02:46→17:49)
[2020-03-17] MEDS: ALBUTEROL SULFATE NEB 2.5 MG/0.5 ML INH 5 MG INHALATION ×4 (02:55→21:30)
[2020-03-17] MEDS: IPRATROPIUM BR 0.02% INH SOLN 0.5 MG/2.5 ML VIAL INHALATION ×4 (02:55→21:31)
[2020-03-17 05:15] LABS: Hematocrit 31.5 % (37.0-47.0); Hemoglobin 9.5 g/dL (12.0-15.0); Mean Corpuscular HGB Conc 30.2 g/dl (32-36); Mean Corpuscular Hemoglobin 25.9 pg (26-34); Mean Corpuscular Volume 85.8 fl (80-100); Mean Platelet Volume 9.1 fl (7.4-10.4); Platelet Count Result 333 k/mm3 (150-375); Red Blood Count 3.67 M/mm3 (4.2-5.4); Red Cell Distribution Width 17.2 % (11.5-14.5); White Blood Count 15.9 K/mm3 (4.5-10.0)
[2020-03-17 05:30] LABS: Alanine Aminotransferase 39 U/L (4-35); Albumin Level 3.7 g/dL (3.5-5.1); Alkaline Phosphatase 72 U/L (38-126); Anion Gap 8 mmol/L (8-16); Aspartate Amino Transferase 38 U/L (14-36); Bilirubin,Total 0.5 mg/dL (0.2-1.3); Blood Urea Nitrogen 16 mg/dL (7-17); Calcium 9.2 mg/dL (8.4-10.2); Carbon Dioxide 34 mmol/L (22-30); Chloride 97 mmol/L (98-107); Estimated CRCL calculation 60 ml/min; Estimated Glomerular Filt Rate > 60; Glucose 286 mg/dL (65-105); Potassium 3.7 mmol/L (3.4-5.0); Sodium 139 mmol/L (137-145)
[2020-03-17] MEDS: LANSOPRAZOLE ORAL SUSP 30 MG/10 ML ORAL.SUSP FEED TUBE (05:41)
[2020-03-17 05:47] LABS: Glucose Point of Care 262 (65-105)
[2020-03-17 06:16] LABS: Vitamin D 25 Hydroxy 37.1 ng/mL
[2020-03-17 09:41] LABS: Hemoglobin A1C 7.5 % (<5.7)
[2020-03-17] MEDS: LACTATED RINGERS 1,000 ML 75 ML IV CONT (10:11)
[2020-03-17] MEDS: MIDODRINE HCL 10 MG TABLET FEED TUBE ×3 (10:12→17:51)
[2020-03-17] MEDS: FAMOTIDINE 20 MG TABLET 40 MG FEED TUBE (10:13)
[2020-03-17] MEDS: LACTULOSE 20 GM/30 ML UDC FEED TUBE (10:14)
[2020-03-17] MEDS: FUROSEMIDE 20 MG TABLET FEED TUBE (10:14)
[2020-03-17] MEDS: ACIDOPHILUS/BULGARICUS CHEWABLE TABLET 1 TABLET FEED TUBE (10:14)
[2020-03-17] MEDS: ASCORBIC ACID 500 MG TABLET FEED TUBE (10:14)
[2020-03-17] MEDS: ZINC SULFATE 220 MG CAPSULE FEED TUBE (10:14)
[2020-03-17] MEDS: METOCLOPRAMIDE HCL 10 MG/10 ML SOLN UDC FEED TUBE ×4 (10:19→20:15)
[2020-03-17] MEDS: INSULIN ASPART (*BKC) 100 UNITS/ML SUB-Q ×2 (13:10→17:51)
[2020-03-17 13:32] LABS: Glucose Point of Care 219 (65-105)
--- NOTE | 2020-03-17 15:59 | PM.IMPN ---
Progress Note: A&P Assessment and Plan (1) Sepsis: Qualifiers: Acute respiratory failure type: with hypoxia Sepsis acute organ dysfunction status: with acute organ dysfunction Sepsis type: sepsis due to unspecified organism Severe sepsis acute organ dysfunction type: acute respiratory failure Severe sepsis shock status: without septic shock Qualified Code(s): A41.9 - Sepsis, unspecified organism; R65.20 - Severe sepsis without septic shock; J96.01 - Acute respiratory failure with hypoxia Code(s): A41.9 - Sepsis, unspecified organism Status: Acute Assessment and Plan: Sepsis criteria are met on admission with fever, tachycardia, tachypnea, leukocytosis, and elevated lactic acid level. Repeat lactic acid level improved to 2.2. CT of the chest showing concerns for aspiration. Blood cultures NGTD. UCx growing EColi. She has been started on Unasyn for aspiration pneumonia. Discussed with family. Has had issues with Zofran causing QT prolongation. She does better with Compazine although there is an interaction with the Reglan. As such will check EKG and continue p.r.n. Zofran for now. Resume Levemir. Resume vitamin-D. Vitamin-D level normal and family informed. Nutrition consult. Add Pulmozyme. (2) Aspiration pneumonia: Qualifiers: Aspiration pneumonia type: unspecified Laterality: bilateral Lung location: lower lobe of lung Qualified Code(s): J69.0 - Pneumonitis due to inhalation of food and vomit Code(s): J69.0 - Pneumonitis due to inhalation of food and vomit Status: Acute Assessment and Plan: Aspiration precautions will be initiated. Tube feeds on hold but will resume today at low rate. Monitor residuals. Apparently she had been on metoclopramide at 1 point in time and it is still on her home med list. This has already been resumed aso will see how she tolerates this. (3) Acute respiratory failure with hypoxia: Code(s): J96.01 - Acute respiratory failure with hypoxia Status: Acute Assessment and Plan: Patietn currently on 7L HFNC and maintaining her oxygenation. Related to the aspiration. Not in distress. Wean O2 as tolerated. 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 The patient's blood glucose was reviewed on 03/17 Glucose remains poorly controlled. Continue AccuCheks covering with sliding scale. Hypoglycemia protocol available as needed. Resume Levemir if tolerating tube feedings. (5) Gastroesophageal reflux disease: Code(s): K21.9 - Gastro-esophageal reflux disease without esophagitis Status: Inactive Assessment and Plan: Stable. Continue Pepcid and Prevacid. (6) Elevated LFTs: Code(s): R79.89 - Other specified abnormal findings of blood chemistry Status: Acute Assessment and Plan: AST and ALT mildly elevated and this has been noted in the past. CT scan showing a 2.6 cm liver cyst right hepatic lobe but otherwise no acute issues. (7) UTI (urinary tract infection): Code(s): N39.0 - Urinary tract infection, site not specified Status: Acute Assessment and Plan: UA noted. UCx showing EColi. Continue Unasyn. Subjective Date/time seen: 03/17/20 15:59 Interval history: Date of service 03/17 75yo female with dignificant cognitive dysfunction and dysphagia requiring G-Tube here nausea and vomiting with probable aspiration PNA. Patient is alert but confused and unable to provide accurate hx. Review of Systems Review of Systems: ROS unobtainable: Yes unobtainable due to mental status Exam Narrative: Exam Narrative: AF 97.3 110/47 63 20 95% on 7L HFNC Gen - NARD Chest - bibasilar inspiratory crackles, nml RR CV - RRR S1/S2; Tele showing no significa
[2020-03-17 17:11] LABS: Glucose Point of Care 214 (65-105)
[2020-03-17 20:48] LABS: Glucose Point of Care 215 (65-105)
[2020-03-17] MEDS: DORNASE ALFA INH SOLN 1 MG/ML 2.5 ML AMP 2.5 MG INHALATION (21:31)
--- NOTE | 2020-03-17 22:30 | PM.EVENT ---
Event Note Event Note Event Note: Gram-positive cocci in clusters isolated in aerobic bottle only in 1 set of blood cultures. Identification still in process, thus will empirically start vancomycin but hope that is a contaminant.
[2020-03-18] VITALS (22 sets, daily range): BP systolic 96–126; BP diastolic 47–65; PULSE 63–100; RESP 18–22; TEMP 36.6–37.2; O2SAT 90–99; BMI 23.8; BMI 11.0
[2020-03-18] MEDS: AMPICILLIN SULB 3 GM/NS 100 ML 3 GM/100 ML VIAL IVPB ×2 (00:20→06:29)
[2020-03-18] MEDS: IPRATROPIUM BR 0.02% INH SOLN 0.5 MG/2.5 ML VIAL INHALATION ×4 (03:00→20:05)
[2020-03-18] MEDS: ALBUTEROL SULFATE NEB 2.5 MG/0.5 ML INH 5 MG INHALATION ×4 (03:00→20:05)
[2020-03-18 05:16] LABS: Basophils Percent Auto 0.2 % (0.2-1.2); Eosinophils Absolute Auto 0.1 K/mm3 (0-0.3); Eosinophils Percent Auto 0.7 % (0-4.4); Hematocrit 27.7 % (37.0-47.0); Hemoglobin 8.2 g/dL (12.0-15.0); Immature Granulocyte Absolute 0.11 K/mm3 (0.00-0.031); Immature Granulocyte Percent A 0.7 % (0-0.5); Lymphocytes Percent Auto 4.2 % (18.3-44.2); Mean Corpuscular HGB Conc 29.6 g/dl (32-36); Mean Corpuscular Volume 87.9 fl (80-100); Mean Platelet Volume 9.2 fl (7.4-10.4); Monocytes Absolute Auto 0.5 K/mm3 (0.1-0.6); Monocytes Percent Auto 3.1 % (2.6-8.5); Neutrophils Absolute Auto 15.1 K/mm3 (1.3-6.7); Neutrophils Percent Auto 91.1 % (45.5-73.1); Platelet Count Result 290 k/mm3 (150-375); Red Blood Count 3.15 M/mm3 (4.2-5.4); Red Cell Distribution Width 17.6 % (11.5-14.5); White Blood Count 16.6 K/mm3 (4.5-10.0)
[2020-03-18 05:43] LABS: Alanine Aminotransferase 31 U/L (4-35); Albumin Level 3.3 g/dL (3.5-5.1); Alkaline Phosphatase 81 U/L (38-126); Anion Gap 6 mmol/L (8-16); Aspartate Amino Transferase 32 U/L (14-36); Bilirubin,Total 0.4 mg/dL (0.2-1.3); Blood Urea Nitrogen 13 mg/dL (7-17); Calcium 8.7 mg/dL (8.4-10.2); Carbon Dioxide 33 mmol/L (22-30); Chloride 101 mmol/L (98-107); Estimated CRCL calculation 60 ml/min; Estimated Glomerular Filt Rate > 60; Glucose 198 mg/dL (65-105); Magnesium 1.9 mg/dL (1.6-2.3); Phosphorus 2.6 mg/dL (2.5-4.5); Potassium 2.8 mmol/L (3.4-5.0); Sodium 140 mmol/L (137-145)
[2020-03-18] MEDS: LANSOPRAZOLE ORAL SUSP 30 MG/10 ML ORAL.SUSP FEED TUBE (06:30)
[2020-03-18] MEDS: POTASSIUM CHLORIDE 20 MEQ PACKET (FOR LIQUID) 40 MEQ FEED TUBE (07:33)
[2020-03-18] MEDS: DORNASE ALFA INH SOLN 1 MG/ML 2.5 ML AMP 2.5 MG INHALATION ×2 (08:04→20:05)
[2020-03-18 08:23] LABS: Glucose Point of Care 196 (65-105)
[2020-03-18] MEDS: ZINC SULFATE 220 MG CAPSULE FEED TUBE (09:17)
[2020-03-18] MEDS: FUROSEMIDE 20 MG TABLET FEED TUBE (09:18)
[2020-03-18] MEDS: INSULIN DETEMIR 100 UNITS/ML 12 UNITS SUB-Q (09:18)
[2020-03-18] MEDS: FAMOTIDINE 20 MG TABLET 40 MG FEED TUBE (09:18)
[2020-03-18] MEDS: METOCLOPRAMIDE HCL 10 MG/10 ML SOLN UDC FEED TUBE ×4 (09:18→21:27)
[2020-03-18] MEDS: LACTULOSE 20 GM/30 ML UDC FEED TUBE (09:18)
[2020-03-18] MEDS: ACIDOPHILUS/BULGARICUS CHEWABLE TABLET 1 TABLET FEED TUBE (09:18)
[2020-03-18] MEDS: ASCORBIC ACID 500 MG TABLET FEED TUBE (09:18)
[2020-03-18] MEDS: MIDODRINE HCL 10 MG TABLET FEED TUBE ×3 (09:19→16:23)
--- NOTE | 2020-03-18 10:41 | PM.IMPN ---
Progress Note: A&P Assessment and Plan (1) Sepsis: Qualifiers: Acute respiratory failure type: with hypoxia Sepsis acute organ dysfunction status: with acute organ dysfunction Sepsis type: sepsis due to unspecified organism Severe sepsis acute organ dysfunction type: acute respiratory failure Severe sepsis shock status: without septic shock Qualified Code(s): A41.9 - Sepsis, unspecified organism; R65.20 - Severe sepsis without septic shock; J96.01 - Acute respiratory failure with hypoxia Code(s): A41.9 - Sepsis, unspecified organism Status: Acute Assessment and Plan: Sepsis criteria are met on admission with fever, tachycardia, tachypnea, leukocytosis, and elevated lactic acid level. Repeat lactic acid level improved to 2.2. CT of the chest showing dependent airspace disease of the right upper and bilateral lower lobes in a pattern consistent with aspiration pneumonia. Blood cultures returned last night with 1of2 growing GPC in clusters. UCx growing EColi as mentioned below. Will change her to Rocephin and Flagyl. Vanco started last night for +BCx so will continue this as well. Follow up on BCx result. (2) Aspiration pneumonia: Qualifiers: Aspiration pneumonia type: unspecified Laterality: bilateral Lung location: lower lobe of lung Qualified Code(s): J69.0 - Pneumonitis due to inhalation of food and vomit Code(s): J69.0 - Pneumonitis due to inhalation of food and vomit Status: Acute Assessment and Plan: Continue aspiration precautions. Tube feeds resumed and tolerating this well. Monitor residuals. Apparently she had been on metoclopramide at 1 point in time and it is still on her home med list. This has already been resumed so will see how she tolerates this. Will change abx to Rocephin and Flagyl so as to be able to cover the EColi UTI. (3) Acute respiratory failure with hypoxia: Code(s): J96.01 - Acute respiratory failure with hypoxia Status: Acute Assessment and Plan: Patient was on 7L HFNC and able to be weaned while maintaining her oxygenation. Related to the aspiration. Not in distress. Down to 2L. Wean O2 as tolerated. (4) Insulin dependent type 2 diabetes mellitus: Code(s): E11.9 - Type 2 diabetes mellitus without complications; Z79.4 - long-term (current) use of insulin Status: Inactive Assessment and Plan: A1c 7.5. The patient's blood glucose was reviewed on 03/18 Glucose remains poorly controlled. Continue AccuCheks covering with sliding scale. Hypoglycemia protocol available as needed. Levemir has been resumed today so will follow for now. May need 2nd dose of Levemir at night. (5) Gastroesophageal reflux disease: Code(s): K21.9 - Gastro-esophageal reflux disease without esophagitis Status: Inactive Assessment and Plan: Stable. Continue Pepcid and Prevacid. Continue to have HOD elevated. (6) Elevated LFTs: Code(s): R79.89 - Other specified abnormal findings of blood chemistry Status: Acute Assessment and Plan: AST and ALT mildly elevated and this has been noted in the past. CT scan showing a 2.6 cm liver cyst right hepatic lobe but otherwise no acute issues. LFTs normal now. Monitor periodically. (7) DVT prophylaxis: Code(s): Z29.9 - Encounter for prophylactic measures, unspecified Status: Acute Assessment and Plan: Lovenox. (8) UTI (urinary tract infection): Code(s): N39.0 - Urinary tract infection, site not specified Status: Acute Assessment and Plan: UA noted. UCx showing EColi sensitive to Rocephin but not Unasyn. (9) Anemia: Code(s): D64.9 - Anemia, unspecified Status: Acute Assessment and Plan: Hgb 10 on admission but baseline closer to 8. Hgb here has drifted down to 8.2. Follow. Check iron studies, B12. Monitor while on Lovenox but no evidence of
[2020-03-18] MEDS: ENOXAPARIN 40 MG/0.4 ML SYRINGE SUB-Q (11:56)
[2020-03-18 12:10] LABS: Glucose Point of Care 196 (65-105)
[2020-03-18] MEDS: metroNIDAZOLE 250MG/ISO 50 ML 250 MG/50 ML BAG 50 MG IVPB ×2 (13:04→18:00)
--- NOTE | 2020-03-18 14:49 | PC.NURSE ---
This patient, Linette Vásquez, was transferred to [facility] on 03/18/20 at 1420. Personal belongings sent with patient. Report given to Sally GLEASON. Appropriate documentation sent with patient.
[2020-03-18 18:38] LABS: Glucose Point of Care 185 (65-105)
[2020-03-19] VITALS (12 sets, daily range): BP systolic 102–122; BP diastolic 48–57; PULSE 73–96; RESP 18–24; TEMP 36.1–36.7; O2SAT 90–97
[2020-03-19] MEDS: metroNIDAZOLE 250MG/ISO 50 ML 250 MG/50 ML BAG 50 MG IVPB ×4 (00:20→23:26)
[2020-03-19] MEDS: IPRATROPIUM BR 0.02% INH SOLN 0.5 MG/2.5 ML VIAL INHALATION ×4 (01:48→20:51)
[2020-03-19] MEDS: ALBUTEROL SULFATE NEB 2.5 MG/0.5 ML INH 5 MG INHALATION ×4 (01:48→20:51)
[2020-03-19 02:16] LABS: Glucose Point of Care 138 (65-105)
[2020-03-19 05:52] LABS: Glucose Point of Care 128 (65-105)
[2020-03-19] MEDS: LANSOPRAZOLE ORAL SUSP 30 MG/10 ML ORAL.SUSP FEED TUBE (06:03)
[2020-03-19 06:27] LABS: Basophils Absolute Auto 0.1 K/mm3 (0.0-0.1); Basophils Percent Auto 0.7 % (0.2-1.2); Eosinophils Percent Auto 10.3 % (0-4.4); Hematocrit 29.3 % (37.0-47.0); Hemoglobin 8.6 g/dL (12.0-15.0); Immature Granulocyte Absolute 0.07 K/mm3 (0.00-0.031); Immature Granulocyte Percent A 0.7 % (0-0.5); Lymphocytes Absolute Auto 2.52 K/mm3 (0.9-3.2); Lymphocytes Percent Auto 25.6 % (18.3-44.2); Mean Corpuscular HGB Conc 29.4 g/dl (32-36); Mean Corpuscular Hemoglobin 26.5 pg (26-34); Mean Corpuscular Volume 90.2 fl (80-100); Mean Platelet Volume 8.8 fl (7.4-10.4); Monocytes Absolute Auto 0.6 K/mm3 (0.1-0.6); Monocytes Percent Auto 6.3 % (2.6-8.5); Neutrophils Absolute Auto 5.6 K/mm3 (1.3-6.7); Neutrophils Percent Auto 56.4 % (45.5-73.1); Platelet Count Result 283 k/mm3 (150-375); Red Blood Count 3.25 M/mm3 (4.2-5.4); White Blood Count 9.9 K/mm3 (4.5-10.0)
[2020-03-19 06:45] LABS: Anion Gap 7 mmol/L (8-16); Blood Urea Nitrogen 11 mg/dL (7-17); Calcium 8.6 mg/dL (8.4-10.2); Carbon Dioxide 32 mmol/L (22-30); Chloride 104 mmol/L (98-107); Estimated CRCL calculation 60 ml/min; Estimated Glomerular Filt Rate > 60; Glucose 133 mg/dL (65-105); Magnesium 2.1 mg/dL (1.6-2.3); Potassium 3.6 mmol/L (3.4-5.0); Sodium 143 mmol/L (137-145)
[2020-03-19 07:19] LABS: Platelet Estimate Adequate (Adequate)
[2020-03-19 07:20] LABS: Anisocytosis 1+ (NORMAL); Hypochromasia 1+ (NORMAL); Microcytosis 1+ (NORMAL); Polychromasia 1+ (NORMAL)
[2020-03-19] MEDS: METOCLOPRAMIDE HCL 10 MG/10 ML SOLN UDC FEED TUBE ×4 (07:30→21:00)
[2020-03-19] MEDS: FAMOTIDINE 20 MG TABLET 40 MG FEED TUBE (07:43)
[2020-03-19] MEDS: FUROSEMIDE 20 MG TABLET FEED TUBE (07:43)
[2020-03-19] MEDS: MIDODRINE HCL 10 MG TABLET FEED TUBE ×3 (07:44→17:50)
[2020-03-19] MEDS: ZINC SULFATE 220 MG CAPSULE FEED TUBE (07:44)
[2020-03-19] MEDS: ENOXAPARIN 40 MG/0.4 ML SYRINGE SUB-Q (07:45)
[2020-03-19] MEDS: ACIDOPHILUS/BULGARICUS CHEWABLE TABLET 1 TABLET FEED TUBE (07:46)
[2020-03-19] MEDS: ASCORBIC ACID 500 MG TABLET FEED TUBE (07:46)
[2020-03-19 07:56] LABS: Folic Acid 7.7 ng/mL (2.76->20)
[2020-03-19] MEDS: DORNASE ALFA INH SOLN 1 MG/ML 2.5 ML AMP 2.5 MG INHALATION ×2 (08:24→20:51)
[2020-03-19] MEDS: INSULIN DETEMIR 100 UNITS/ML 12 UNITS SUB-Q (08:59)
[2020-03-19 11:17] LABS: Glucose Point of Care 136 (65-105)
--- NOTE | 2020-03-19 13:06 | PM.IMPN ---
Progress Note: A&P Assessment and Plan (1) Sepsis: Qualifiers: Acute respiratory failure type: with hypoxia Sepsis acute organ dysfunction status: with acute organ dysfunction Sepsis type: sepsis due to unspecified organism Severe sepsis acute organ dysfunction type: acute respiratory failure Severe sepsis shock status: without septic shock Qualified Code(s): A41.9 - Sepsis, unspecified organism; R65.20 - Severe sepsis without septic shock; J96.01 - Acute respiratory failure with hypoxia Code(s): A41.9 - Sepsis, unspecified organism Status: Acute Assessment and Plan: Sepsis criteria are met on admission with fever, tachycardia, tachypnea, leukocytosis, and elevated lactic acid level. Repeat lactic acid level improved. CT of the chest showing dependent airspace disease of the right upper and bilateral lower lobes in a pattern consistent with aspiration pneumonia. Blood cultures returned with 1of2 growing Coag Negative Staph. UCx growing EColi as mentioned below. Continue Rocephin and Flagyl. Vanco started 03/17 for +BCx but felt this is a contaminate so will stop Vanco. Discussed with family. (2) Aspiration pneumonia: Qualifiers: Aspiration pneumonia type: unspecified Laterality: bilateral Lung location: lower lobe of lung Qualified Code(s): J69.0 - Pneumonitis due to inhalation of food and vomit Code(s): J69.0 - Pneumonitis due to inhalation of food and vomit Status: Acute Assessment and Plan: Continue aspiration precautions. Tube feeds resumed and tolerating this well. Monitor residuals. Apparently she had been on metoclopramide at 1 point in time and it is still on her home med list. This has already been resumed and she seems to be tolerating it well. Continue Rocephin and Flagyl so as to be able to cover the EColi UTI. (3) Acute respiratory failure with hypoxia: Code(s): J96.01 - Acute respiratory failure with hypoxia Status: Acute Assessment and Plan: Patient was on 7L HFNC and able to be weaned while maintaining her oxygenation. Related to the aspiration. Not in distress. Down to 2L. Continue to wean O2 as tolerated. (4) Insulin dependent type 2 diabetes mellitus: Code(s): E11.9 - Type 2 diabetes mellitus without complications; Z79.4 - manager terminal (current) use of insulin Status: Inactive Assessment and Plan: A1c 7.5. The patient's blood glucose was reviewed on 03/19 Glucose better controlled. Continue AccuCheks covering with sliding scale. Hypoglycemia protocol available as needed. Continue Levemir. (5) Gastroesophageal reflux disease: Code(s): K21.9 - Gastro-esophageal reflux disease without esophagitis Status: Inactive Assessment and Plan: Stable. Continue Pepcid and Prevacid. Continue to have HOB elevated. (6) Elevated LFTs: Code(s): R79.89 - Other specified abnormal findings of blood chemistry Status: Acute Assessment and Plan: AST and ALT mildly elevated and this has been noted in the past. CT scan showing a 2.6 cm liver cyst right hepatic lobe but otherwise no acute issues. LFTs normal now. Monitor periodically. (7) DVT prophylaxis: Code(s): Z29.9 - Encounter for prophylactic measures, unspecified Status: Acute Assessment and Plan: Lovenox. (8) UTI (urinary tract infection): Code(s): N39.0 - Urinary tract infection, site not specified Status: Acute Assessment and Plan: UA noted. UCx showing EColi sensitive to Rocephin so abx adjusted yesterday. (9) Anemia: Code(s): D64.9 - Anemia, unspecified Status: Acute Assessment and Plan: Hgb 10 on admission but baseline closer to 8. Hgb here has drifted down to 8 range and stable. Follow. B12 okay but iron studies pending. Monitor while on Lovenox but no evidence of acute blood loss. Additional Plan Called to t
[2020-03-19 19:01] LABS: Glucose Point of Care 112 (65-105)
[2020-03-19 19:25] LABS: Alveolar/Arterial O2 Gradient 169.7 mmHg; Base Excess ABG 3.8 mEq/l (+/-2.0); Carboxyhemoglobin 0.3 % THb (0-2.0); Device NASAL CANNULA; Fractional Inspired Oxygen 40 %; HCO3 ABG 27.4 mEq/l (22.0-26.0); Methemoglobin ABG 0.2 %THb (0-1.5); Modified Allen's Test Pass; Oxygen Saturation ABG 95.6 % (95.0-100.0); Oxyhemoglobin 93.6 % THb (90.0-100.0); PCO2 ABG 37.5 mmHg (35.0-45.0); PO2 ABG 72.4 mmHg (80.0-100.0); PO2 FiO2 Ratio Arterial Blood 1.81 %; Reduced Hemoglobin 5.9 %THb (0-5.0); Site Drawn RIGHT RADIAL; Total Hemoglobin 10.6 g/dL (12.0-18.0); pH ABG 7.482 (7.350-7.450)
[2020-03-19 23:46] LABS: Glucose Point of Care 107 (65-105)
[2020-03-20] VITALS (16 sets, daily range): BP systolic 105–129; BP diastolic 48–75; PULSE 60–95; RESP 18–20; TEMP 36.2–36.7; O2SAT 90–100
[2020-03-20] MEDS: IPRATROPIUM BR 0.02% INH SOLN 0.5 MG/2.5 ML VIAL INHALATION ×4 (03:34→20:05)
[2020-03-20] MEDS: ALBUTEROL SULFATE NEB 2.5 MG/0.5 ML INH 5 MG INHALATION ×4 (03:34→20:04)
[2020-03-20] MEDS: metroNIDAZOLE 250MG/ISO 50 ML 250 MG/50 ML BAG 50 MG IVPB ×3 (05:00→17:30)
[2020-03-20] MEDS: LANSOPRAZOLE ORAL SUSP 30 MG/10 ML ORAL.SUSP FEED TUBE (05:33)
[2020-03-20 05:49] LABS: Glucose Point of Care 116 (65-105)
[2020-03-20] MEDS: DORNASE ALFA INH SOLN 1 MG/ML 2.5 ML AMP 2.5 MG INHALATION ×2 (07:54→20:05)
[2020-03-20 08:42] LABS: Basophils Absolute Auto 0.1 K/mm3 (0.0-0.1); Basophils Percent Auto 0.7 % (0.2-1.2); Eosinophils Absolute Auto 1.4 K/mm3 (0-0.3); Hematocrit 31.2 % (37.0-47.0); Hemoglobin 9.4 g/dL (12.0-15.0); Immature Granulocyte Absolute 0.09 K/mm3 (0.00-0.031); Immature Granulocyte Percent A 0.9 % (0-0.5); Lymphocytes Absolute Auto 2.39 K/mm3 (0.9-3.2); Lymphocytes Percent Auto 24.8 % (18.3-44.2); Mean Corpuscular HGB Conc 30.1 g/dl (32-36); Mean Corpuscular Hemoglobin 26.3 pg (26-34); Mean Corpuscular Volume 87.2 fl (80-100); Mean Platelet Volume 9.1 fl (7.4-10.4); Monocytes Absolute Auto 0.6 K/mm3 (0.1-0.6); Monocytes Percent Auto 5.9 % (2.6-8.5); Neutrophils Absolute Auto 5.2 K/mm3 (1.3-6.7); Neutrophils Percent Auto 53.7 % (45.5-73.1); Platelet Count Result 310 k/mm3 (150-375); Red Blood Count 3.58 M/mm3 (4.2-5.4); Red Cell Distribution Width 17.5 % (11.5-14.5); White Blood Count 9.7 K/mm3 (4.5-10.0)
[2020-03-20 08:59] LABS: Alanine Aminotransferase 36 U/L (4-35); Albumin Level 3.2 g/dL (3.5-5.1); Alkaline Phosphatase 66 U/L (38-126); Anion Gap 5 mmol/L (8-16); Aspartate Amino Transferase 45 U/L (14-36); Bilirubin,Total 0.3 mg/dL (0.2-1.3); Blood Urea Nitrogen 10 mg/dL (7-17); CRP 2.8 mg/dL (<1.0); Calcium 8.6 mg/dL (8.4-10.2); Carbon Dioxide 32 mmol/L (22-30); Chloride 104 mmol/L (98-107); Estimated CRCL calculation 60 ml/min; Estimated Glomerular Filt Rate > 60; Glucose 111 mg/dL (65-105); Potassium 3.3 mmol/L (3.4-5.0); Sodium 141 mmol/L (137-145)
[2020-03-20 09:04] LABS: NT Pro B Type Natriuretic Pept 748 PG/ML (5-100)
[2020-03-20] MEDS: MIDODRINE HCL 10 MG TABLET FEED TUBE ×3 (09:08→16:31)
[2020-03-20] MEDS: FAMOTIDINE 20 MG TABLET 40 MG FEED TUBE (09:14)
[2020-03-20] MEDS: ACIDOPHILUS/BULGARICUS CHEWABLE TABLET 1 TABLET FEED TUBE (09:14)
[2020-03-20] MEDS: ZINC SULFATE 220 MG CAPSULE FEED TUBE (09:14)
[2020-03-20] MEDS: ASCORBIC ACID 500 MG TABLET FEED TUBE (09:14)
[2020-03-20] MEDS: METOCLOPRAMIDE HCL 10 MG/10 ML SOLN UDC FEED TUBE ×4 (09:14→22:16)
[2020-03-20] MEDS: FUROSEMIDE 20 MG TABLET FEED TUBE (09:15)
[2020-03-20] MEDS: ENOXAPARIN 40 MG/0.4 ML SYRINGE SUB-Q (09:15)
[2020-03-20 10:29] LABS: Iron 27 ug/dL (37-170)
[2020-03-20 10:38] LABS: Percent Iron Saturation 10 % (20-50)
--- NOTE | 2020-03-20 11:56 | P.CDI_ITS ---
CDI Query Clarification Request 1) -UTI has been documented - per nursing pt had indwelling parada catheter prior to arrival and was changed on 03/16 Please clarify if UTI is: * Due to/associated with indwelling parada catheter * Not due to/associated with indwelling parada catheter * Unable to determine 2) - Sepsis has been documented - Aspiration Pneumonia and UTI have been documented. Please clarify cause of sepsis if known: * Aspiration pneumonia * UTI * Unable to determine <Yaz Golden RN - Last Filed: 03/20/20 12:00>
--- NOTE | 2020-03-20 11:56 | WPDCDIQUERY2 ---
CDI Query Clarification Request 1) -UTI has been documented - per nursing pt had indwelling parada catheter prior to arrival and was changed on 03/16 Please clarify if UTI is: Due to/associated with indwelling parada catheter Not due to/associated with indwelling parada catheter Unable to determine 2) - Sepsis has been documented - Aspiration Pneumonia and UTI have been documented. Please clarify cause of sepsis if known: Aspiration pneumonia UTI Unable to determine <Yaz Golden RN - Last Filed: 03/20/20 12:00>
[2020-03-20 12:17] LABS: Glucose Point of Care 133 (65-105)
--- NOTE | 2020-03-20 13:31 | PM.IMPN ---
Progress Note: A&P Assessment and Plan (1) Sepsis: Qualifiers: Acute respiratory failure type: with hypoxia Sepsis acute organ dysfunction status: with acute organ dysfunction Sepsis type: sepsis due to unspecified organism Severe sepsis acute organ dysfunction type: acute respiratory failure Severe sepsis shock status: without septic shock Qualified Code(s): A41.9 - Sepsis, unspecified organism; R65.20 - Severe sepsis without septic shock; J96.01 - Acute respiratory failure with hypoxia Code(s): A41.9 - Sepsis, unspecified organism Status: Acute Assessment and Plan: Sepsis criteria are met on admission with fever, tachycardia, tachypnea, leukocytosis, and elevated lactic acid level. Sepsis from UTI and aspiration PNA. Repeat lactic acid level improved. CT of the chest showing dependent airspace disease of the right upper and bilateral lower lobes in a pattern consistent with aspiration pneumonia. Blood cultures returned with 1of2 growing Coag Negative Staph. UCx growing EColi as mentioned below. Continue Rocephin and Flagyl. Vanco started 03/17 for +BCx but felt this is a contaminate so this was stopped 03/19. BCx repeated today. (2) Aspiration pneumonia: Qualifiers: Aspiration pneumonia type: unspecified Laterality: bilateral Lung location: lower lobe of lung Qualified Code(s): J69.0 - Pneumonitis due to inhalation of food and vomit Code(s): J69.0 - Pneumonitis due to inhalation of food and vomit Status: Acute Assessment and Plan: CT Chest concerning for aspiration PNA. Continue aspiration precautions. Tube feeds resumed but had recurrrence ofSOB and worsening hypoxia. Severe GERD? TF have been stopped. Apparently she had been on metoclopramide at 1 point in time and it is still on her home med list. This has already been resumed and she seems to be tolerating it well. Continue Rocephin and Flagyl. Minimize meds through G-Tube. Continue phenergan for nausea; stop Zofran since can prolong QT and already on Reglan. EKG cancelled so will reorder. (3) Acute respiratory failure with hypoxia: Code(s): J96.01 - Acute respiratory failure with hypoxia Status: Acute Assessment and Plan: Patient was on 7L HFNC but able to be weaned to 2L. Yesterday evening, she had cough spell and became hypoxic. Tube feedings stopped. 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 ABG showing 7.48/37/72 5L. Wean O2 as tolerated. Continue pulmozyme, Albuterol and Atrovent. May need J-tube and/or trach to try to prevent recurrent aspirations. She is full code. GI consult to see if tube can be placed post-pyloric. 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 The patient's blood glucose was reviewed on 03/20 Glucose good control. Continue AccuCheks covering with sliding scale. Hypoglycemia protocol available as needed. Hold Levemir while tube feedings held. (5) Gastroesophageal reflux disease: Code(s): K21.9 - Gastro-esophageal reflux disease without esophagitis Status: Inactive Assessment and Plan: Stable. Continue Pepcid and Prevacid. Continue to have HOB elevated. (6) Elevated LFTs: Code(s): R79.89 - Other specified abnormal findings of blood chemistry Status: Acute Assessment and Plan: AST and ALT mildly elevated and this has been noted in the past. CT scan showing a 2.6 cm liver cyst right hepatic lobe but otherwise no acute issues. Monitor periodically. (7) DVT prophylaxis: Code(s): Z29.9 - Encounter for prophylactic measures, unspecified Status: Acute Assessment and Plan: Lovenox.
--- NOTE | 2020-03-20 13:58 | ECG_ITS ---
Measurements Intervals [place] Rate: 73 P: 51 CA: 161 QRS: -23 QRSD: 85 T: 38 QT: 391 QTc: 432 Interpretive Statements SINUS RHYTHM DELAYED PRECORDIAL R/S TRANSITION LOW QRS VOLTAGE IN PRECORDIAL LEADS BORDERLINE ECG Electronically Signed On 03-20-2020 14:36:33 CONTROL ENGINEER by Bryon Reyes D.O.
--- NOTE | 2020-03-20 17:27 | WPDGIPROGNO ---
Progress Note: A&P Additional Plan A. Aspiration with PEG - Raise HOB - Care with meds that decrease gastric emptying - Reglan IV-> liuid thru PEG - Use pump feeds rather than bolus - If these measures fail consider surgical J-tube B. Abnormal LFT's: mild; observeAMBER Monreal [phone] #[id number] Subjective Date/time seen: 03/20/20 17:27 Objective Data Vital Signs Vital Signs: Vital Signs - 24 hr 03/19/20 18:50 03/19/20 20:00 03/19/20 21:58 Temperature 36.7 C Pulse Rate 96 87 87 Respiratory Rate 24 H 20 20 Blood Pressure 107/55 L 102/52 L Pulse Oximetry 92 95 95 03/19/20 23:00 03/20/20 03:35 03/20/20 03:43 Temperature Pulse Rate 82 82 83 Respiratory Rate 20 20 Blood Pressure Pulse Oximetry 94 03/20/20 06:00 03/20/20 07:55 03/20/20 07:58 Temperature 36.2 C L Pulse Rate 95 83 Respiratory Rate 20 20 Blood Pressure 105/75 Pulse Oximetry 95 94 03/20/20 08:03 03/20/20 09:05 03/20/20 11:38 Temperature Pulse Rate 83 Respiratory Rate 20 Blood Pressure Pulse Oximetry 93 90 03/20/20 13:47 03/20/20 13:52 03/20/20 14:00 Temperature 36.7 C Pulse Rate 82 82 74 Respiratory Rate 20 20 18 Blood Pressure 120/50 L Pulse Oximetry 100 Intake/Output Intake/Output: Intake & Output 03/17/20 03/18/20 03/19/20 03/20/20 23:59 23:59 23:59 23:59 Intake Total 1400 1028 450 200 Output Total 1200 300 930 800 Balance 200 923 -607 -673 Meds/Results Medications: Active Medications Generic Name Dose Route Start Last Admin Trade Name Freq PRN Reason Stop Dose Admin Albuterol 5 mg 03/16/20 20:00 03/20/20 13:47 Albuterol Sulfate Neb 2.5 Mg/0.5 Ml Inh INHALATION 5 mg Q6HRT BRYCE Administration Albuterol 2.5 mg 03/16/20 23:26 Albuterol Sulfate Neb 2.5 Mg/0.5 Ml Inh INHALATION Q4HRT PRN Shortness Of Breath Ascorbic Acid 500 mg 03/17/20 09:00 03/20/20 09:14 Ascorbic Acid 500 Mg Tablet FEED TUBE 500 mg DAILY BRYCE Administration Dextrose 12.5 gm 03/17/20 00:12 Dextrose 50% 25 Gm/50 Ml Syringe IV PUSH PRN PRN Hypoglycemia Protocol Dornase Miguel 2.5 mg 03/17/20 20:00 03/20/20 07:54 Dornase Miguel Inh Soln 1 Mg/Ml 2.5 Ml Amp INHALATION 2.5 mg Q12HRT BRYCE Administration Enoxaparin Sodium 40 mg 03/19/20 09:00 03/20/20 09:15 Enoxaparin 40 Mg/0.4 Ml Syringe SUB-Q 40 mg DAILY BRYCE Administration Ergocalciferol 50,000 unit 03/24/20 09:00 Ergocalciferol 50,000 Unit Capsule FEED TUBE Fr@0900 BRYCE Famotidine 40 mg 03/17/20 09:00 03/20/20 09:14 Famotidine 20 Mg Tablet FEED TUBE 40 mg DAILY BRYCE Administration Furosemide 20 mg 03/17/20 09:00 03/20/20 09:15 Furosemide 20 Mg Tablet FEED TUBE 20 mg DAILY BRYCE Administration Glucagon 1 mg 03/17/20 00:12 Glucagon For Inj 1 Mg Vial IM PRN PRN Hypoglycemia Protocol Glucose 15 gm 03/17/20 00:12 Glucose Oral Gel 15 Gm Of Glucse In 37.5 Gm Tube PO PRN PRN Hypoglycemia Protocol Dextrose 1,000 mls @ 100 mls/hr 03/17/20 00:12 Dextrose 5% 1,000 Ml IVPB PRN PRN Hypoglycemia Protocol Metronidazole 250 mg in 50 mls @ 50 mls/hr 03/18/20 12:00 03/20/20 13:10 Flagyl 250 Mg/Iso Soln 50 Ml IVPB Infused Q6H BRYCE Infusion Ceftriaxone Sodium/Dextrose 1 gm in 50 mls @ 100 mls/hr 03/18/20 11:00 03/20/20 11:59 Rocephin 1 Gm/D5w 50 Ml IVPB Infused Q24H BRYCE Infusion Insulin Aspart 2 - 5 units 03/19/20 00:00 03/20/20 12:19 Insulin Aspart (*Bkc) 100 Units/Ml SUB-Q Not Given Q6HR [facility] Protocol Insulin Detemir 12 units 03/18/20 09:00 03/20/20 09:17 Insulin Detemir 100 Units/Ml SUB-Q 04/17/20 09:01 Not Given DAILY BRYCE Ipratropium [place] 0.5 mg 03/16/20 20:00 03/20/20 13:47 Ipratropium Br 0.02% Inh Soln 0.5 Mg/2.5 Ml Vial INHALATION 0.5 mg Q6HRT BRYCE Administration Ipratropium [place] 0.5 mg 03/17/20 09:51 Ipratropium Br 0.02%
[2020-03-20 17:58] LABS: Glucose Point of Care 109 (65-105)
[2020-03-20] MEDS: SODIUM CHLORIDE 0.9% IV 1,000 ML 60 ML IV CONT (18:31)
[2020-03-20] MEDS: POTASSIUM CHLORIDE 20 MEQ PACKET (FOR LIQUID) FEED TUBE (18:42)
--- NOTE | 2020-03-20 21:39 | CONS_ITS ---
DATE OF CONSULTATION: 03/20/2020 HISTORY OF PRESENT ILLNESS: A 75-year-old [facility] patient with history of GERD, kidney stones, UTI, craniotomy, who I am now asked to provide GI evaluation at the request of the hospitalist service for aspiration pneumonia. The patients primary care provider is Dr. Antonino De La Garza. The patient was an inpatient from January 28, 2020 to February 25, 2020 with septic shock, acute renal failure, encephalopathy secondary to COVID pneumonia. The patient never fully recovered and has been nonverbal since. She failed a swallow and was given a PEG for aspiration. Recently, the patient had several episodes of emesis and the morning of admission had a large emesis with significant hypoxia. There was evidence for aspiration pneumonia and I am now asked to evaluate options. The patient cannot provide any history as she is nonverbal. No endocarditis risk factors. ALLERGIES: SEE LIST. MEDICATIONS: See list that includes Lactinex and omeprazole 20 mg twice a day. SOCIAL HISTORY: Quit smoking in October 2017. There are no reports of alcohol abuse or drug abuse. FAMILY HISTORY: Negative for GI malignancy. It is unclear if she has ever had a colonoscopy. PHYSICAL EXAMINATION: GENERAL: Somewhat contracted female lying in bed, no apparent distress. She has no lower extremity edema, jaundice, spider angioma, palmar erythema. HEENT: Skull is normocephalic, atraumatic. Pupils nonicteric. Oropharynx clear. NECK: Supple without thyromegaly. LUNGS: Clear to auscultation. HEART: Rate and rhythm regular. S1, S2 normal. ABDOMEN: Normal bowel sounds. Soft, nontender, nonrigid, nondistended without hepatosplenomegaly or masses. G-tube is in the left upper quadrant and the site is clean, dry, and intact. RECTAL: Deferred. NEURO: Conscious and alert and responsive to vocal stimuli though non-meaningful responses. LABORATORY DATA: Labs today; hemoglobin 9, hematocrit 31, and white count of 10. T bilirubin 0.3, alkaline phosphatase 66, AST 15, and ALT is 36. On March 18, hemoglobin 8, hematocrit 28, white count is 17. T bilirubin 0.4, alkaline phosphatase 81, AST 32, and ALT is 31. On March 17, T bilirubin 0.5, alkaline phosphatase 72, AST 38, ALT was 39. ASSESSMENT AND PLAN: 1. Gastroesophageal reflux disease. Continue PPI. 2. Abnormal transaminases, minimal. Would observe. 3. Screening for colon cancer. Could consider colonoscopy when stable or consider Cologuard, which may be more appropriate for this patient if not already done. 4. Chronic blood loss anemia, likely anemia of chronic disease, but consider sending B12, folate, ferritin, iron panel, and reticulocyte count. 5. Aspiration pneumonia. At this point, the patient has a 20-Burkinan gastrostomy tube in. We will try conservative measures such as raising the head of the bed, giving Reglan IV, changing to Elixir through the G-tube and try feeding on a pump to lower the volume at once rather than bolus feeds, which it looks like she was getting. Should these fail, would consider surgical jejunostomy tube. I am not in favor of G-tubes with small bowel extensions as these typically only go into the 3rd portion of the duodenum and have a high spontaneous failure rate with the patient having any significant coughing or emesis. They often fail unpredictably and in patients with decreased mental status, the typical presentation for GJ tube failure is aspiration. Surgical J-tubes are much more reliable. Thank you for allowing me to share in the care of this patient. I will follow with you for now. Please call with questions. BRII COHEN M.D. CC:? Antonino Dustin
[2020-03-21] VITALS (11 sets, daily range): BP systolic 104–117; BP diastolic 44–48; PULSE 65–84; RESP 16–20; TEMP 36.9–37.1; O2SAT 92–100
[2020-03-21] MEDS: metroNIDAZOLE 250MG/ISO 50 ML 250 MG/50 ML BAG 50 MG IVPB ×4 (00:22→17:30)
[2020-03-21 00:30] LABS: Glucose Point of Care 101 (65-105)
[2020-03-21] MEDS: ALBUTEROL SULFATE NEB 2.5 MG/0.5 ML INH 5 MG INHALATION ×4 (01:36→19:55)
[2020-03-21] MEDS: IPRATROPIUM BR 0.02% INH SOLN 0.5 MG/2.5 ML VIAL INHALATION ×4 (01:36→19:55)
[2020-03-21] MEDS: LANSOPRAZOLE ORAL SUSP 30 MG/10 ML ORAL.SUSP FEED TUBE (06:15)
[2020-03-21 06:18] LABS: Hematocrit 31.4 % (37.0-47.0); Hemoglobin 9.2 g/dL (12.0-15.0); Mean Corpuscular HGB Conc 29.3 g/dl (32-36); Mean Corpuscular Hemoglobin 25.6 pg (26-34); Mean Corpuscular Volume 87.5 fl (80-100); Platelet Count Result 330 k/mm3 (150-375); Red Blood Count 3.59 M/mm3 (4.2-5.4); Red Cell Distribution Width 17.6 % (11.5-14.5); White Blood Count 10.7 K/mm3 (4.5-10.0)
[2020-03-21 06:35] LABS: Alanine Aminotransferase 41 U/L (4-35); Alkaline Phosphatase 62 U/L (38-126); Anion Gap 3 mmol/L (8-16); Aspartate Amino Transferase 51 U/L (14-36); Bilirubin,Total 0.3 mg/dL (0.2-1.3); Blood Urea Nitrogen 8 mg/dL (7-17); Calcium 8.2 mg/dL (8.4-10.2); Carbon Dioxide 29 mmol/L (22-30); Chloride 109 mmol/L (98-107); Estimated CRCL calculation 60 ml/min; Estimated Glomerular Filt Rate > 60; Glucose 102 mg/dL (65-105); Magnesium 2.2 mg/dL (1.6-2.3); Phosphorus 3.6 mg/dL (2.5-4.5); Potassium 3.7 mmol/L (3.4-5.0); Sodium 141 mmol/L (137-145)
[2020-03-21 06:40] LABS: Glucose Point of Care 104 (65-105)
[2020-03-21 06:46] LABS: Eosinophils Absolute Manual 1.92 K/mm3 (0.02-0.5); Eosinophils Percent Manual 18 % (0-4); Lymphocytes Absolute Manual 1.92 K/mm3 (1.1-4.5); Monocytes Absolute Manual 0.42 K/mm3 (0.1-0.90); Monocytes Percent Manual 4 % (3-9); Neutrophils Percent Manual 60 % (46-73); Platelet Estimate Adequate (Adequate); Total Cells Counted 100
[2020-03-21 06:48] LABS: Anisocytosis 1+ (NORMAL); Hypochromasia 1+ (NORMAL)
[2020-03-21] MEDS: DORNASE ALFA INH SOLN 1 MG/ML 2.5 ML AMP 2.5 MG INHALATION (07:47)
[2020-03-21] MEDS: FUROSEMIDE 20 MG TABLET FEED TUBE (08:01)
[2020-03-21] MEDS: MIDODRINE HCL 10 MG TABLET FEED TUBE ×3 (08:01→17:28)
[2020-03-21] MEDS: FAMOTIDINE 20 MG TABLET 40 MG FEED TUBE (08:02)
[2020-03-21] MEDS: ENOXAPARIN 40 MG/0.4 ML SYRINGE SUB-Q (08:02)
[2020-03-21] MEDS: METOCLOPRAMIDE HCL 10 MG/10 ML SOLN UDC FEED TUBE ×4 (08:03→20:28)
--- NOTE | 2020-03-21 09:53 | PM.CNPUL ---
Assessment and Plan Additional Plan I think we have little choice other than the J tube. Will follow with you. History of Present Illness History of Present Illness Consult date: 03/21/20 Chief complaint: Acute on chronic respiratory failure, aspiration p Narrative: 75-year-old lady. Recent COVID infection with prolonged mechanical ventilation, aspiration with G-tube placement (rreceiving Glycerna between 10 and 40 cc/hour). She has been on 2 L O2 and has been a smoker with known COPD. Per nursing staff, evidence for aspiration even when sitting upright. 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 Surgical History Surgical History History of craniotomy Right frontal lobe craniotomy with resection of oligodendroglioma. Family History Family History Mother Diabetes mellitus Father Lung cancer Sibling Breast cancer she has Social History Social History Social History: The patient is currently a resident at [facility]. She smoked for approximately 46 years and quit in October 2017. No mention of alcohol or illicit substance abuse. Her niece, Julia Phelps, is her healthcare power of erisa attorney. The patient is a full code. Years smoked: 46 Smoking status: Former smoker Tobacco type: cigarettes Second hand tobacco smoke exposure: No Smoking end date: 10/22/17 Alcohol intake: unknown Substance use: unknown Substance use type: does not use Gender identity (if verbalized by the patient): Female Spiritual care concerns: No Meds Home Medications and Allergies Home Medications Medication Instructions Recorded Confirmed Type Lactobacillus acidophilus 10 mg FEEDING TUBE BID 10/24/19 03/17/20 History [Acidophilus] oxybutynin chloride 5 mg PO DAILY 10/24/19 03/16/20 History omeprazole 20 mg FEEDING TUBE BID 01/28/20 03/16/20 History albuterol sulfate 2.5 mg INHALATION Q4HRT PRN #1 vial 02/25/20 03/16/20 Rx ipratropium bromide 0.5 mg INHALATION Q4HRT #1 vial 02/25/20 03/16/20 Rx midodrine 10 mg FEEDING TUBE TID #90 tablet 02/25/20 03/16/20 Rx ascorbic acid (vitamin C) [Vitamin 500 mg FEEDING TUBE DAILY 03/16/20 03/16/20 History C] miconazole nitrate [Aloe [place] 1 applic TOPICAL BID 03/16/20 03/16/20 History Antifungal] promethazine 25 mg MA Q6H PRN 03/16/20 03/16/20 History sennosides-docusate sodium [Senna 1 tab-cap PO BID PRN 03/16/20 03/16/20 History Plus] cholecalciferol (vitamin D3) 1,250 mcg FEEDING TUBE WEEKLY 03/17/20 03/17/20 History famotidine 40 mg FEEDING TUBE DAILY 03/17/20 03/17/20 History furosemide 20 mg FEEDING TUBE DAILY 03/17/20 03/17/20 History insulin detemir U-100 [Levemir 12 unit SUBCUT DAILY 03/17/20 03/17/20 History FlexTouch U-100 Insuln] lactulose 20 g FEEDING TUBE DAILY 03/17/20 03/17/20 History metoclopramide HCl [Reglan] 10 mg FEEDING TUBE QID 03/17/20 03/17/20 History Allergies Allergy/AdvReac Type Severity Reaction Status Date / Time shellfish derived Allergy Unknown Hives Verified 03/16/20 16:05 codeine Allergy Unknown Verified 03/16/20 16:05 erythromycin base Allergy Unknown Verified 03/16/20 16:05 hydrocodone Allergy Unknown Verified 03/16/20 16:05 ibuprofen Allergy Unknown Verified 03/16/20 16:05 Iodinated Contrast Media Allergy Unknown Verified 03/16/20 16:05 meperidine Allergy Unknown Verified 03/16/20 16:05 mepivacaine [From Carbocaine] Allergy Unknown Verified 03/16/20 16:05 propoxycaine Allergy Unknown Verified 03/16/20 16:05 propoxyph
[2020-03-21 12:27] LABS: Glucose Point of Care 101 (65-105)
--- NOTE | 2020-03-21 15:15 | PCDIET ---
Nutrition Follow-Up Complete: Inadequate infusion of enteral nutrition related tube feeding rate as evidenced by current tube feeding providing 1056kcal over 22 hours/day versus estimated needs of 1350+kcal per day. Patient to meet estimated nutritional needs. Goal: Goal not met. Continue goal. Pt current nutrition is NPO. Nutrition recommendation: agree Last recorded weight is 63 kg, recommend updated wt Bowel Motility: 03/20 BM + Labs Reviewed: Albumin 3.0, Protein 6.0, C reactive 2.0, AST/ALT 51/41 Meds Noted: Reglan, Flagyl, Albuterol, Lasix, Insulin, Lactulose, Zinc, Normal saline Additional Notes: Pt with aspiration via g tube feedings. Pt tube feeds switched to continuous with Reglan added and still not tolerating. Plans for potential J tube, but currently NPO. One other alternative would be trialing an elemental formula, Vital 1.2, to see if digestion improves. Goal rate of Vital 1.2 would be 55ml/hr, starting at 10ml/hr and advancing 10ml q 4 hrs as tolerated. If enteral nutrition to restart with J tube proceeds, recommend increasing Glucerna to a goal rate of 55ml/hr over 22hrs to provide 1452kcals, 72g protein, and 974ml of free water to better meet needs. 50ml water flush q 4hrs would be appropriate. Current tube feeding at 40m/hr only providing 1059kcals, meeting only 73% of kcal needs. Follow up every Friday/Friday.
--- NOTE | 2020-03-21 15:27 | PM.IMPN ---
Progress Note: A&P Assessment and Plan (1) Sepsis: Qualifiers: Acute respiratory failure type: with hypoxia Sepsis acute organ dysfunction status: with acute organ dysfunction Sepsis type: sepsis due to unspecified organism Severe sepsis acute organ dysfunction type: acute respiratory failure Severe sepsis shock status: without septic shock Qualified Code(s): A41.9 - Sepsis, unspecified organism; R65.20 - Severe sepsis without septic shock; J96.01 - Acute respiratory failure with hypoxia Code(s): A41.9 - Sepsis, unspecified organism Status: Acute Assessment and Plan: Sepsis criteria are met on admission with fever, tachycardia, tachypnea, leukocytosis, and elevated lactic acid level. Sepsis from UTI and aspiration PNA. Repeat lactic acid level improved. CT of the chest showing dependent airspace disease of the right upper and bilateral lower lobes in a pattern consistent with aspiration pneumonia. Blood cultures returned with 1of2 growing Coag Negative Staph. UCx growing EColi as mentioned below. Continue Rocephin and Flagyl. Vanco started 03/17 for +BCx but felt this is a contaminate so this was stopped 03/19. BCx repeated today and prelimenary NG. (2) Aspiration pneumonia: Qualifiers: Aspiration pneumonia type: unspecified Laterality: bilateral Lung location: lower lobe of lung Qualified Code(s): J69.0 - Pneumonitis due to inhalation of food and vomit Code(s): J69.0 - Pneumonitis due to inhalation of food and vomit Status: Acute Assessment and Plan: CT Chest concerning for aspiration PNA. Continue aspiration precautions. Tube feeds resumed but had recurrrence ofSOB and worsening hypoxia. Severe GERD? TF have been stopped. Apparently she had been on metoclopramide at 1 point in time and it is still on her home med list. This has already been resumed and she seems to be tolerating it well. Continue Rocephin and Flagyl. Minimize meds through G-Tube. Continue phenergan for nausea; stop Zofran since can prolong QT and already on Reglan (3) Acute respiratory failure with hypoxia: Code(s): J96.01 - Acute respiratory failure with hypoxia Status: Acute Assessment and Plan: Patient was on 7L HFNC but able to be weaned to 4L. Intermittant cough with hypoxia Wean O2 as tolerated. Continue pulmozyme, Albuterol and Atrovent. May need J-tube and/or trach to try to prevent recurrent aspirations. She is full code. (4) Insulin dependent type 2 diabetes mellitus: Code(s): E11.9 - Type 2 diabetes mellitus without complications; Z79.4 - half-way (current) use of insulin Status: Inactive Assessment and Plan: A1c 7.5. The patient's blood glucose was reviewed on 03/21 Glucose good control. Continue AccuCheks covering with sliding scale. Hypoglycemia protocol available as needed. Hold Levemir if tube feedings held. (5) Gastroesophageal reflux disease: Code(s): K21.9 - Gastro-esophageal reflux disease without esophagitis Status: Inactive Assessment and Plan: Stable. Continue Pepcid and Prevacid. Continue to have HOB elevated. (6) Elevated LFTs: Code(s): R79.89 - Other specified abnormal findings of blood chemistry Status: Acute Assessment and Plan: AST and ALT mildly elevated and this has been noted in the past. CT scan showing a 2.6 cm liver cyst right hepatic lobe but otherwise no acute issues. Monitor periodically. (7) DVT prophylaxis: Code(s): Z29.9 - Encounter for prophylactic measures, unspecified Status: Acute Assessment and Plan: Lovenox. (8) UTI (urinary tract infection): Code(s): N39.0 - Urinary tract infection, site not specified Status: Acute Assessment and Plan: UA noted. UCx showing EColi sensitive to Rocephin; started 03/18., D#4 (9) Anemia: Code(s): D64.9 - Anemia, unspecified Status:
[2020-03-21 17:22] LABS: Glucose Point of Care 89 (65-105)
[2020-03-22] VITALS (15 sets, daily range): BP systolic 100–122; BP diastolic 40–49; PULSE 53–78; RESP 16–22; TEMP 36.3–36.9; O2SAT 92–100
[2020-03-22] MEDS: metroNIDAZOLE 250MG/ISO 50 ML 250 MG/50 ML BAG 50 MG IVPB ×4 (00:10→17:46)
[2020-03-22 00:20] LABS: Glucose Point of Care 86 (65-105)
[2020-03-22] MEDS: ALBUTEROL SULFATE NEB 2.5 MG/0.5 ML INH 5 MG INHALATION ×4 (01:38→19:27)
[2020-03-22] MEDS: IPRATROPIUM BR 0.02% INH SOLN 0.5 MG/2.5 ML VIAL INHALATION ×4 (01:38→19:27)
[2020-03-22] MEDS: SODIUM CHLORIDE 0.9% IV 1,000 ML 60 ML IV CONT (06:26)
[2020-03-22] MEDS: LANSOPRAZOLE ORAL SUSP 30 MG/10 ML ORAL.SUSP FEED TUBE (06:29)
[2020-03-22 06:39] LABS: Glucose Point of Care 98 (65-105)
[2020-03-22] MEDS: DORNASE ALFA INH SOLN 1 MG/ML 2.5 ML AMP 2.5 MG INHALATION ×2 (08:27→19:27)
[2020-03-22] MEDS: FAMOTIDINE 20 MG TABLET 40 MG FEED TUBE (08:59)
[2020-03-22] MEDS: ENOXAPARIN 40 MG/0.4 ML SYRINGE SUB-Q (08:59)
[2020-03-22] MEDS: METOCLOPRAMIDE HCL 10 MG/10 ML SOLN UDC FEED TUBE ×4 (08:59→21:15)
[2020-03-22] MEDS: FUROSEMIDE 20 MG TABLET FEED TUBE (09:00)
[2020-03-22] MEDS: MIDODRINE HCL 10 MG TABLET FEED TUBE ×3 (09:00→17:45)
--- NOTE | 2020-03-22 09:17 | PM.PNPUL ---
Progress Note: A&P Additional Plan Between her nonverbal status yesterday and her difficulty to arouse today, I am unsure as to the chronicity of these findings and I defer to her other physicians. Chest status seems stable. J-tube still needed, it seems. Subjective Date/time seen: 03/22/20 09:17 No J-tube placement yet. Exam Narrative: Exam Narrative: Asleep and not arousable. Seems comfortable. Objective Data Vital Signs Vital Signs: Vital Signs - 24 hr 03/21/20 14:00 03/21/20 14:01 03/21/20 19:57 Temperature 37.1 C Pulse Rate 66 68 73 Respiratory Rate 18 16 18 Blood Pressure 107/44 L Pulse Oximetry 98 98 95 03/21/20 22:00 03/22/20 01:40 03/22/20 06:00 Temperature 36.9 C 36.9 C Pulse Rate 80 76 68 Respiratory Rate 18 18 18 Blood Pressure 104/48 L 100/45 L Pulse Oximetry 92 94 Intake/Output Intake/Output: Intake & Output 03/19/20 03/20/20 03/21/20 03/22/20 23:59 23:59 23:59 23:59 Intake Total 267 651 2944 50 Output Total 286 263 0690 900 Balance -480 -550 -325 -850 Meds/Results Medications: Active Medications Generic Name Dose Route Start Last Admin Trade Name Freq PRN Reason Stop Dose Admin Albuterol 5 mg 03/16/20 20:00 03/22/20 08:26 Albuterol Sulfate Neb 2.5 Mg/0.5 Ml Inh INHALATION 5 mg Q6HRT BRYCE Administration Albuterol 2.5 mg 03/16/20 23:26 Albuterol Sulfate Neb 2.5 Mg/0.5 Ml Inh INHALATION Q4HRT PRN Shortness Of Breath Ascorbic Acid 500 mg 03/17/20 09:00 03/20/20 09:14 Ascorbic Acid 500 Mg Tablet FEED TUBE 500 mg DAILY BRYCE Administration Dextrose 12.5 gm 03/17/20 00:12 Dextrose 50% 25 Gm/50 Ml Syringe IV PUSH PRN PRN Hypoglycemia Protocol Dornase Miguel 2.5 mg 03/17/20 20:00 03/22/20 08:27 Dornase Miguel Inh Soln 1 Mg/Ml 2.5 Ml Amp INHALATION 2.5 mg Q12HRT BRYCE Administration Enoxaparin Sodium 40 mg 03/19/20 09:00 03/22/20 08:59 Enoxaparin 40 Mg/0.4 Ml Syringe SUB-Q 40 mg DAILY BRYCE Administration Ergocalciferol 50,000 unit 03/24/20 09:00 Ergocalciferol 50,000 Unit Capsule FEED TUBE Fr@0900 BRYCE Famotidine 40 mg 03/17/20 09:00 03/22/20 08:59 Famotidine 20 Mg Tablet FEED TUBE 40 mg DAILY BRYCE Administration Furosemide 20 mg 03/17/20 09:00 03/22/20 09:00 Furosemide 20 Mg Tablet FEED TUBE 20 mg DAILY BRYCE Administration Glucagon 1 mg 03/17/20 00:12 Glucagon For Inj 1 Mg Vial IM PRN PRN Hypoglycemia Protocol Glucose 15 gm 03/17/20 00:12 Glucose Oral Gel 15 Gm Of Glucse In 37.5 Gm Tube PO PRN PRN Hypoglycemia Protocol Dextrose 1,000 mls @ 100 mls/hr 03/17/20 00:12 Dextrose 5% 1,000 Ml IVPB PRN PRN Hypoglycemia Protocol Metronidazole 250 mg in 50 mls @ 50 mls/hr 03/18/20 12:00 03/22/20 06:26 Flagyl 250 Mg/Iso Soln 50 Ml IVPB 50 mls/hr Q6H BRYCE Administration Ceftriaxone Sodium/Dextrose 1 gm in 50 mls @ 100 mls/hr 03/18/20 11:00 03/21/20 11:54 Rocephin 1 Gm/D5w 50 Ml IVPB 100 mls/hr Q24H BRYCE Administration Sodium Chloride 1,000 mls @ 60 mls/hr 03/20/20 18:05 03/22/20 06:26 Normal Saline Iv IV CONT 60 mls/hr .[id number] BRYCE Administration Insulin Aspart 2 - 5 units 03/19/20 00:00 03/22/20 06:28 Insulin Aspart (*Bkc) 100 Units/Ml SUB-Q Not Given Q6HR BRYCE Protocol Insulin Detemir 12 units 03/18/20 09:00 03/20/20 09:17 Insulin Detemir 100 Units/Ml SUB-Q 04/17/20 09:01 Not Given DAILY BRYCE Ipratropium Nemo 0.5 mg 03/16/20 20:00 03/22/20 08:26 Ipratropium Br 0.02% Inh Soln 0.5 Mg/2.5 Ml Vial INHALATION 0.5 mg Q6HRT BRYCE Administration Ipratropium Nemo 0.5 mg 03/17/20 09:51 Ipratropium Br 0.02% Inh Soln 0.5 Mg/2.5 Ml Vial INHALATION Q4HRT PRN Shortness Of Breath Or Wheezing Lactobacillus Acidophilus 1 tablet 03/17/20 09:00 03/20/20 09:14 Acidophilus/Bulgar[place] Chewable Tablet FEED TUBE 1 tablet DAILY BRYCE
[2020-03-22 12:10] LABS: Glucose Point of Care 101 (65-105)
--- NOTE | 2020-03-22 16:33 | PM.IMPN ---
Progress Note: A&P Assessment and Plan (1) Sepsis: Qualifiers: Acute respiratory failure type: with hypoxia Sepsis acute organ dysfunction status: with acute organ dysfunction Sepsis type: sepsis due to unspecified organism Severe sepsis acute organ dysfunction type: acute respiratory failure Severe sepsis shock status: without septic shock Qualified Code(s): A41.9 - Sepsis, unspecified organism; R65.20 - Severe sepsis without septic shock; J96.01 - Acute respiratory failure with hypoxia Code(s): A41.9 - Sepsis, unspecified organism Status: Acute Assessment and Plan: Sepsis criteria are met on admission with fever, tachycardia, tachypnea, leukocytosis, and elevated lactic acid level. Sepsis from UTI and aspiration PNA. Repeat lactic acid level improved. CT of the chest showing dependent airspace disease of the right upper and bilateral lower lobes in a pattern consistent with aspiration pneumonia. Blood cultures returned with 1of2 growing Coag Negative Staph. UCx growing EColi as mentioned below. Continue Rocephin and Flagyl. Vanco started 03/17 for +BCx but felt this is a contaminate so this was stopped 03/19. BCx repeated and NG. (2) Aspiration pneumonia: Qualifiers: Aspiration pneumonia type: unspecified Laterality: bilateral Lung location: lower lobe of lung Qualified Code(s): J69.0 - Pneumonitis due to inhalation of food and vomit Code(s): J69.0 - Pneumonitis due to inhalation of food and vomit Status: Acute Assessment and Plan: CT Chest concerning for aspiration PNA. Continue aspiration precautions. Tube feeds resumed but had recurrrence of SOB and worsening hypoxia. Severe GERD? TF have been stopped. Apparently she had been on metoclopramide at 1 point in time and it is still on her home med list. This has already been resumed and she seems to be tolerating it well. Continue Rocephin and Flagyl. Minimize meds through G-Tube. Continue phenergan for nausea; stopped Zofran since can prolong QT and already on Reglan Surg consult for possible J tube (3) Acute respiratory failure with hypoxia: Code(s): J96.01 - Acute respiratory failure with hypoxia Status: Acute Assessment and Plan: Patient was on 7L HFNC but able to be weaned to RA. Intermittant cough with hypoxia Continue pulmozyme, Albuterol and Atrovent. May need J-tube to prevent recurrent aspirations. She is full code. (4) Insulin dependent type 2 diabetes mellitus: Code(s): E11.9 - Type 2 diabetes mellitus without complications; Z79.4 - penitentiary (current) use of insulin Status: Inactive Assessment and Plan: A1c 7.5. The patient's blood glucose was reviewed on 03/22 Glucose good control. Continue AccuCheks covering with sliding scale. Hypoglycemia protocol available as needed. Hold Levemir if tube feedings held. (5) Gastroesophageal reflux disease: Code(s): K21.9 - Gastro-esophageal reflux disease without esophagitis Status: Inactive Assessment and Plan: Stable. Continue Pepcid and Prevacid. Continue to have HOB elevated. (6) Elevated LFTs: Code(s): R79.89 - Other specified abnormal findings of blood chemistry Status: Acute Assessment and Plan: AST and ALT mildly elevated and this has been noted in the past. CT scan showing a 2.6 cm liver cyst right hepatic lobe but otherwise no acute issues. Monitor periodically. (7) DVT prophylaxis: Code(s): Z29.9 - Encounter for prophylactic measures, unspecified Status: Acute Assessment and Plan: Lovenox. (8) UTI (urinary tract infection): Code(s): N39.0 - Urinary tract infection, site not specified Status: Acute Assessment and Plan: UA noted. UCx showing EColi sensitive to Rocephin; started 03/18., D#5 (9) Anemia: Code(s): D64.9 - Anemia, unspecified Status: Acute Assessm
[2020-03-22 18:06] LABS: Glucose Point of Care 88 (65-105)
--- NOTE | 2020-03-22 19:51 | WPDGIPROGNO ---
Progress Note: A&P Additional Plan GI Larissa 22 Mar 2020 Nurse reports improvement in cough. Still not getting tube feeds VSS soft/NT No labs ASSESSMENT AND PLAN: 1. Gastroesophageal reflux disease. Continue PPI. 2. Abnormal transaminases, minimal. Would observe. 3. Screening for colon cancer. Could consider colonoscopy when stable or consider Cologuard, which may be more appropriate for this patient if not already done. 4. Chronic blood loss anemia, likely anemia of chronic disease, but consider sending B12, folate, ferritin, iron panel, and reticulocyte count. 5. Aspiration pneumonia: - Patient has a 20-Portuguese gastrostomy tube in - Try conservative measures such as raising the head of the bed - Now on Reglan - In am consider starting feeding on a pump at low volume - Can use 2 ileana HN to decrease volume - Should these fail, would consider surgical jejunostomy tube - I am not in favor of G-tubes with small bowel extensions as these typically only go into the 3rd portion of the duodenum, have a high spontaneous failure rate with the patient having significant coughing or emesis. They often fail unpredictably and in patients with decreased mental status, the typical presentation for GJ tube failure is aspiration. Surgical J-tubes are much more reliable Thanks, [facility] [phone] Subjective Date/time seen: 03/22/20 19:51 Objective Data Vital Signs Vital Signs: Vital Signs - 24 hr 03/21/20 19:57 03/21/20 22:00 03/22/20 01:40 Temperature 36.9 C Pulse Rate 73 80 76 Respiratory Rate 18 18 18 Blood Pressure 104/48 L Pulse Oximetry 95 92 03/22/20 06:00 03/22/20 08:25 03/22/20 08:35 Temperature 36.9 C Pulse Rate 68 78 76 Respiratory Rate 18 18 18 Blood Pressure 100/45 L Pulse Oximetry 94 03/22/20 09:00 03/22/20 09:27 03/22/20 13:00 Temperature Pulse Rate Respiratory Rate Blood Pressure Pulse Oximetry 94 94 95 03/22/20 13:30 03/22/20 13:40 03/22/20 14:00 Temperature 36.3 C L Pulse Rate 75 78 63 Respiratory Rate 18 18 16 Blood Pressure 116/49 L Pulse Oximetry 92 03/22/20 17:00 03/22/20 19:30 03/22/20 19:41 Temperature Pulse Rate 53 L 55 L Respiratory Rate 22 H 22 H Blood Pressure Pulse Oximetry 95 95 Intake/Output Intake/Output: Intake & Output 03/19/20 03/20/20 03/21/20 03/22/20 23:59 23:59 23:59 23:59 Intake Total 437 311 9837 250 Output Total 728 301 8536 2050 [facility] [phone] Meds/Results Medications: Active Medications Generic Name Dose Route Start Last Admin Trade Name Freq PRN Reason Stop Dose Admin Albuterol 5 mg 03/16/20 20:00 03/22/20 19:27 Albuterol Sulfate Neb 2.5 Mg/0.5 Ml Inh INHALATION 5 mg Q6HRT BRYCE Administration Albuterol 2.5 mg 03/16/20 23:26 Albuterol Sulfate Neb 2.5 Mg/0.5 Ml Inh INHALATION Q4HRT PRN Shortness Of Breath Ascorbic Acid 500 mg 03/17/20 09:00 03/20/20 09:14 Ascorbic Acid 500 Mg Tablet FEED TUBE 500 mg DAILY BRYCE Administration Dextrose 12.5 gm 03/17/20 00:12 Dextrose 50% 25 Gm/50 Ml Syringe IV PUSH PRN PRN Hypoglycemia Protocol Dornase Miguel 2.5 mg 03/17/20 20:00 03/22/20 19:27 Dornase Miguel Inh Soln 1 Mg/Ml 2.5 Ml Amp INHALATION 2.5 mg Q12HRT BRYCE Administration Enoxaparin Sodium 40 mg 03/19/20 09:00 03/22/20 08:59 Enoxaparin 40 Mg/0.4 Ml Syringe SUB-Q 40 mg DAILY BRYCE Administration Ergocalciferol 50,000 unit 03/24/20 09:00 Ergocalciferol 50,000 Unit Capsule FEED TUBE Fr@0900 BRYCE Famotidine 40 mg 03/17/20 09:00 03/22/20 08:59 Famotidine 20 Mg Tablet FEED TUBE 40 mg DAILY BRYCE Administration Furosemide 20 mg 03/17/20 09:00 03/22/20 09:00 Furosemide 20 Mg Tablet FEED TUBE 20 mg DAILY BRYCE Administration Glucagon 1 mg 03/17/20 00:12 Glucagon For Inj 1 Mg Vial IM PRN PRN Hypoglycemia Protocol Glucose 15 gm 03/17/20 00:12 Glucose Oral Gel 15 Gm
[2020-03-23] VITALS (13 sets, daily range): BP systolic 105–121; BP diastolic 44–50; PULSE 61–89; RESP 16–24; TEMP 35.7–36.3; O2SAT 90–95
[2020-03-23 00:46] LABS: Glucose Point of Care 89 (65-105)
[2020-03-23] MEDS: SODIUM CHLORIDE 0.9% IV 1,000 ML 60 ML IV CONT (00:48)
[2020-03-23] MEDS: metroNIDAZOLE 250MG/ISO 50 ML 250 MG/50 ML BAG 50 MG IVPB ×4 (00:55→17:54)
[2020-03-23] MEDS: IPRATROPIUM BR 0.02% INH SOLN 0.5 MG/2.5 ML VIAL INHALATION ×4 (02:07→19:55)
[2020-03-23] MEDS: ALBUTEROL SULFATE NEB 2.5 MG/0.5 ML INH 5 MG INHALATION ×4 (02:07→19:55)
[2020-03-23] MEDS: LANSOPRAZOLE ORAL SUSP 30 MG/10 ML ORAL.SUSP FEED TUBE (06:31)
[2020-03-23 06:47] LABS: Glucose Point of Care 96 (65-105)
[2020-03-23 06:56] LABS: Hematocrit 31.6 % (37.0-47.0); Hemoglobin 9.4 g/dL (12.0-15.0); Mean Corpuscular HGB Conc 29.7 g/dl (32-36); Mean Corpuscular Hemoglobin 25.8 pg (26-34); Mean Corpuscular Volume 86.6 fl (80-100); Platelet Count Result 392 k/mm3 (150-375); Red Blood Count 3.65 M/mm3 (4.2-5.4); Red Cell Distribution Width 17.8 % (11.5-14.5); White Blood Count 10.6 K/mm3 (4.5-10.0)
[2020-03-23 07:07] LABS: Alanine Aminotransferase 34 U/L (4-35); Albumin Level 3.3 g/dL (3.5-5.1); Alkaline Phosphatase 71 U/L (38-126); Anion Gap 6 mmol/L (8-16); Aspartate Amino Transferase 42 U/L (14-36); Bilirubin,Total 0.2 mg/dL (0.2-1.3); Blood Urea Nitrogen 5 mg/dL (7-17); Calcium 8.2 mg/dL (8.4-10.2); Carbon Dioxide 26 mmol/L (22-30); Chloride 110 mmol/L (98-107); Estimated CRCL calculation 60 ml/min; Estimated Glomerular Filt Rate > 60; Glucose 93 mg/dL (65-105); Potassium 3.3 mmol/L (3.4-5.0); Sodium 142 mmol/L (137-145)
[2020-03-23 07:20] LABS: Band Neutrophils Percent 1 % (0-6); Basophils Percent Manual 1 % (0-1); Eosinophils Absolute Manual 0.74 K/mm3 (0.02-0.5); Eosinophils Percent Manual 7 % (0-4); Hypochromasia 1+ (NORMAL); Large Platelets Present; Lymphocytes Absolute Manual 2.96 K/mm3 (1.1-4.5); Monocytes Absolute Manual 0.21 K/mm3 (0.1-0.90); Monocytes Percent Manual 2 % (3-9); Neutrophils Absolute Manual 6.57 K/mm3 (1.7-7.2); Neutrophils Percent Manual 61 % (46-73); Platelet Estimate Adequate (Adequate); Total Cells Counted 100
[2020-03-23] MEDS: DORNASE ALFA INH SOLN 1 MG/ML 2.5 ML AMP 2.5 MG INHALATION ×2 (07:43→19:55)
--- NOTE | 2020-03-23 08:19 | PM.PNGS ---
Progress Note: A&P Assessment and Plan (1) Aspiration pneumonia: Qualifiers: Aspiration pneumonia type: unspecified Laterality: bilateral Lung location: lower lobe of lung Qualified Code(s): J69.0 - Pneumonitis due to inhalation of food and vomit Code(s): J69.0 - Pneumonitis due to inhalation of food and vomit Status: Acute Assessment and Plan: pneumonia has improved. However patient would likely half to be on mechanical ventilator if abdominal surgery would be performed. Appears to have aspirated while receiving bolus G-tube feedings. Will get G-tube contrast injection today to evaluate position of the G-tube and see how the contrast is handled by the stomach. G-tube should be to gravity drainage after the study to avoid aspiration of contrast. I discussed this with Dr. Ko. If contrast study shows passage of contrast in good G-tube position, recommend continue was G-tube feeds over the weekend. If still has problems with aspiration, then would consider placing jejunostomy feeding tube. (2) PEG (percutaneous endoscopic gastrostomy) status: Code(s): Z93.1 - Gastrostomy status Status: Chronic Assessment and Plan: By exam and CT scan, appears to be in good position. Pending contrast study. Appears to be aspirating bolus G-tube feeds. See above. (3) DM2 (diabetes mellitus, type 2): Qualifiers: Diabetes mellitus residential insulin use: with continuous churn buttermaker use Diabetes mellitus complication status: with hyperglycemia Qualified Code(s): E11.65 - Type 2 diabetes mellitus with hyperglycemia; Z79.4 - [facility] (current) use of insulin Code(s): E11.9 - Type 2 diabetes mellitus without complications Status: Chronic (4) Brain tumor: Code(s): D49.6 - Neoplasm of unspecified behavior of brain Status: Chronic (5) Altered mental status: Qualifiers: Altered mental status type: unspecified Qualified Code(s): R41.82 - Altered mental status, unspecified Code(s): R41.82 - Altered mental status, unspecified Status: Chronic Assessment and Plan: Seems to be improving. Had encephalopathy associated with severe COVID pneumonia during January. Mental status has been slow to return to normal. Subjective Subjective Date/Time Seen: 03/23/20 08:19 Patient reports: no new complaints, feels better, nausea, afebrile and other ( Cough) Review of Systems Review of Systems: ROS unobtainable: Yes unobtainable due to mental status Exam Const: General: alert, awake and other ( more conversant than appears to have been reading previous notes) Nutritional Appearance: well nourished Limitations: physical limitations Resp: Effort & Inspection: normal respiratory effort, Actively coughing and not labored Auscultation: crackles and rhonchi GI: Inspection: non-distended and other ( G-tube in good position left upper quadrant, no redness or swelling) GI Palp: Yes Soft to palpation and No Tenderness to palpation present (GI) Auscultation: normal bowel sounds Objective Data Vital Signs Vital Signs: Vital Signs - 24 hr 03/22/20 08:25 03/22/20 08:35 03/22/20 09:00 Temperature Pulse Rate 78 76 Respiratory Rate 18 18 Blood Pressure Pulse Oximetry 94 03/22/20 09:27 03/22/20 13:00 03/22/20 13:30 Temperature Pulse Rate 75 Respiratory Rate 18 Blood Pressure Pulse Oximetry 94 95 03/22/20 13:40 03/22/20 14:00 03/22/20 17:00 Temperature 36.3 C L Pulse Rate 78 63 Respiratory Rate 18 16 Blood Pressure 116/49 L Pulse Oximetry 92 95 03/22/20 19:30 03/22/20 19:41 03/22/20 20:35 Temperature Pulse Rate 53 L 55 L 58 L Respiratory Rate 22 H 22 H 17 Blood Pressure Pulse Oximetry 95 100 03/22/20 22:00 03/23/20 02:10 03/23/20 02:19 Temperature 36.7 C Pulse Rate 58 L 61 63 Respiratory Rate 17 24 H 24 H Blood Pressure 122/40 L Pulse Oximetry 100 03/23/20 05:43 03/23/20 07
--- NOTE | 2020-03-23 08:40 | PM.PNPUL ---
Subjective Date/time seen: 03/23/20 08:40 Objective Data Vital Signs Vital Signs: Vital Signs - 24 hr 03/22/20 09:00 03/22/20 09:27 03/22/20 13:00 Temperature Pulse Rate Respiratory Rate Blood Pressure Pulse Oximetry 94 94 95 03/22/20 13:30 03/22/20 13:40 03/22/20 14:00 Temperature 36.3 C L Pulse Rate 75 78 63 Respiratory Rate 18 18 16 Blood Pressure 116/49 L Pulse Oximetry 92 03/22/20 17:00 03/22/20 19:30 03/22/20 19:41 Temperature Pulse Rate 53 L 55 L Respiratory Rate 22 H 22 H Blood Pressure Pulse Oximetry 95 95 03/22/20 20:35 03/22/20 22:00 03/23/20 02:10 Temperature 36.7 C Pulse Rate 58 L 58 L 61 Respiratory Rate 17 17 24 H Blood Pressure 122/40 L Pulse Oximetry 100 100 03/23/20 02:19 03/23/20 05:43 03/23/20 07:45 Temperature 35.7 C L Pulse Rate 63 89 72 Respiratory Rate 24 H 16 22 H Blood Pressure 121/49 L Pulse Oximetry 95 94 03/23/20 08:01 Temperature Pulse Rate 76 Respiratory Rate 20 Blood Pressure Pulse Oximetry Intake/Output Intake/Output: Intake & Output 03/20/20 03/21/20 03/22/20 03/23/20 23:59 23:59 23:59 23:59 Intake Total 250 1250 1250 50 Output Total 800 1525 2050 500 Balance -550 -275 -800 -450 Meds/Results Medications: Active Medications Generic Name Dose Route Start Last Admin Trade Name Freq PRN Reason Stop Dose Admin Albuterol 5 mg 03/16/20 20:00 03/23/20 07:43 Albuterol Sulfate Neb 2.5 Mg/0.5 Ml Inh INHALATION 5 mg Q6HRT BRYCE Administration Albuterol 2.5 mg 03/16/20 23:26 Albuterol Sulfate Neb 2.5 Mg/0.5 Ml Inh INHALATION Q4HRT PRN Shortness Of Breath Ascorbic Acid 500 mg 03/17/20 09:00 03/20/20 09:14 Ascorbic Acid 500 Mg Tablet FEED TUBE 500 mg DAILY BRYCE Administration Dextrose 12.5 gm 03/17/20 00:12 Dextrose 50% 25 Gm/50 Ml Syringe IV PUSH PRN PRN Hypoglycemia Protocol Dornase Miguel 2.5 mg 03/17/20 20:00 03/23/20 07:43 Dornase Miguel Inh Soln 1 Mg/Ml 2.5 Ml Amp INHALATION 2.5 mg Q12HRT BRYCE Administration Enoxaparin Sodium 40 mg 03/19/20 09:00 03/22/20 08:59 Enoxaparin 40 Mg/0.4 Ml Syringe SUB-Q 40 mg DAILY BRYCE Administration Ergocalciferol 50,000 unit 03/24/20 09:00 Ergocalciferol 50,000 Unit Capsule FEED TUBE Fr@0900 BRYCE Famotidine 40 mg 03/17/20 09:00 03/22/20 08:59 Famotidine 20 Mg Tablet FEED TUBE 40 mg DAILY BRYCE Administration Furosemide 20 mg 03/17/20 09:00 03/22/20 09:00 Furosemide 20 Mg Tablet FEED TUBE 20 mg DAILY BRYCE Administration Glucagon 1 mg 03/17/20 00:12 Glucagon For Inj 1 Mg Vial IM PRN PRN Hypoglycemia Protocol Glucose 15 gm 03/17/20 00:12 Glucose Oral Gel 15 Gm Of Glucse In 37.5 Gm Tube PO PRN PRN Hypoglycemia Protocol Dextrose 1,000 mls @ 100 mls/hr 03/17/20 00:12 Dextrose 5% 1,000 Ml IVPB PRN PRN Hypoglycemia Protocol Metronidazole 250 mg in 50 mls @ 50 mls/hr 03/18/20 12:00 03/23/20 06:25 Flagyl 250 Mg/Iso Soln 50 Ml IVPB 50 mls/hr Q6H BRYCE Administration Ceftriaxone Sodium/Dextrose 1 gm in 50 mls @ 100 mls/hr 03/18/20 11:00 03/22/20 11:46 Rocephin 1 Gm/D5w 50 Ml IVPB Infused Q24H BRYCE Infusion Sodium Chloride 1,000 mls @ 60 mls/hr 03/20/20 18:05 03/23/20 00:48 Normal Saline Iv IV CONT 60 mls/hr .[id number] BRYCE Administration Potassium Chloride 500 mls @ 125 mls/hr 03/23/20 07:13 Kcl 40 Meq/D5w 500 Ml Peripheral IVPB 03/23/20 11:12 ONCE ONE Insulin Aspart 2 - 5 units 03/19/20 00:00 03/23/20 00:51 Insulin Aspart (*Bkc) 100 Units/Ml SUB-Q Not Given Q6HR [facility] Protocol Insulin Detemir 12 units 03/18/20 09:00 03/20/20 09:17 Insulin Detemir 100 Units/Ml SUB-Q 04/17/20 09:01 Not Given DAILY [facility] Ipratropium [place] 0.5 mg 03/16/20 20:00 03/23/20 07:43 Ipratropium Br 0.02% Inh Soln 0.5 Mg/2.5 Ml Vial INHALATION 0.5 mg Q6
--- NOTE | 2020-03-23 08:41 | PM.PNPUL ---
Progress Note: A&P Additional Plan Discussed with staff. Continue Rx. Following. Time Spent With Patient Time with patient: 15 - 25 minutes Subjective Date/time seen: 03/23/20 08:41 (remains essentially nonverbal) Exam Narrative: Exam Narrative: She looks comfortable. Objective Data Vital Signs Vital Signs: Vital Signs - 24 hr 03/22/20 09:00 03/22/20 09:27 03/22/20 13:00 Temperature Pulse Rate Respiratory Rate Blood Pressure Pulse Oximetry 94 94 95 03/22/20 13:30 03/22/20 13:40 03/22/20 14:00 Temperature 36.3 C L Pulse Rate 75 78 63 Respiratory Rate 18 18 16 Blood Pressure 116/49 L Pulse Oximetry 92 03/22/20 17:00 03/22/20 19:30 03/22/20 19:41 Temperature Pulse Rate 53 L 55 L Respiratory Rate 22 H 22 H Blood Pressure Pulse Oximetry 95 95 03/22/20 20:35 03/22/20 22:00 03/23/20 02:10 Temperature 36.7 C Pulse Rate 58 L 58 L 61 Respiratory Rate 17 17 24 H Blood Pressure 122/40 L Pulse Oximetry 100 100 03/23/20 02:19 03/23/20 05:43 03/23/20 07:45 Temperature 35.7 C L Pulse Rate 63 89 72 Respiratory Rate 24 H 16 22 H Blood Pressure 121/49 L Pulse Oximetry 95 94 03/23/20 08:01 Temperature Pulse Rate 76 Respiratory Rate 20 Blood Pressure Pulse Oximetry Intake/Output Intake/Output: Intake & Output 03/20/20 03/21/20 03/22/20 03/23/20 23:59 23:59 23:59 23:59 Intake Total 250 1250 1250 50 Output Total 800 1525 2050 500 Balance -550 -275 -800 -450 Meds/Results Medications: Active Medications Generic Name Dose Route Start Last Admin Trade Name Freq PRN Reason Stop Dose Admin Albuterol 5 mg 03/16/20 20:00 03/23/20 07:43 Albuterol Sulfate Neb 2.5 Mg/0.5 Ml Inh INHALATION 5 mg Q6HRT BRYCE Administration Albuterol 2.5 mg 03/16/20 23:26 Albuterol Sulfate Neb 2.5 Mg/0.5 Ml Inh INHALATION Q4HRT PRN Shortness Of Breath Ascorbic Acid 500 mg 03/17/20 09:00 03/20/20 09:14 Ascorbic Acid 500 Mg Tablet FEED TUBE 500 mg DAILY BRYCE Administration Dextrose 12.5 gm 03/17/20 00:12 Dextrose 50% 25 Gm/50 Ml Syringe IV PUSH PRN PRN Hypoglycemia Protocol Dornase Miguel 2.5 mg 03/17/20 20:00 03/23/20 07:43 Dornase Miguel Inh Soln 1 Mg/Ml 2.5 Ml Amp INHALATION 2.5 mg Q12HRT BRYCE Administration Enoxaparin Sodium 40 mg 03/19/20 09:00 03/22/20 08:59 Enoxaparin 40 Mg/0.4 Ml Syringe SUB-Q 40 mg DAILY BRYCE Administration Ergocalciferol 50,000 unit 03/24/20 09:00 Ergocalciferol 50,000 Unit Capsule FEED TUBE Fr@0900 BRYCE Famotidine 40 mg 03/17/20 09:00 03/22/20 08:59 Famotidine 20 Mg Tablet FEED TUBE 40 mg DAILY BRYCE Administration Furosemide 20 mg 03/17/20 09:00 03/22/20 09:00 Furosemide 20 Mg Tablet FEED TUBE 20 mg DAILY BRYCE Administration Glucagon 1 mg 03/17/20 00:12 Glucagon For Inj 1 Mg Vial IM PRN PRN Hypoglycemia Protocol Glucose 15 gm 03/17/20 00:12 Glucose Oral Gel 15 Gm Of Glucse In 37.5 Gm Tube PO PRN PRN Hypoglycemia Protocol Dextrose 1,000 mls @ 100 mls/hr 03/17/20 00:12 Dextrose 5% 1,000 Ml IVPB PRN PRN Hypoglycemia Protocol Metronidazole 250 mg in 50 mls @ 50 mls/hr 03/18/20 12:00 03/23/20 06:25 Flagyl 250 Mg/Iso Soln 50 Ml IVPB 50 mls/hr Q6H BRYCE Administration Ceftriaxone Sodium/Dextrose 1 gm in 50 mls @ 100 mls/hr 03/18/20 11:00 03/22/20 11:46 Rocephin 1 Gm/D5w 50 Ml IVPB Infused Q24H BRYCE Infusion Sodium Chloride 1,000 mls @ 60 mls/hr 03/20/20 18:05 03/23/20 00:48 Normal Saline Iv IV CONT 60 mls/hr .[id number] BRYCE Administration Potassium Chloride 500 mls @ 125 mls/hr 03/23/20 07:13 Kcl 40 Meq/D5w 500 Ml Peripheral IVPB 03/23/20 11:12 ONCE ONE Insulin Aspart 2 - 5 units 03/19/20 00:00 03/23/20 00:51 Insulin Aspart (*Bkc) 100 Units/Ml SUB-Q Not Given Q6HR BRYCE Protocol Insulin Detemir 12 units 03/18/20 0
[2020-03-23] MEDS: ENOXAPARIN 40 MG/0.4 ML SYRINGE SUB-Q (08:51)
[2020-03-23] MEDS: FAMOTIDINE 20 MG TABLET 40 MG FEED TUBE (08:51)
[2020-03-23] MEDS: MIDODRINE HCL 10 MG TABLET FEED TUBE ×3 (08:51→17:46)
[2020-03-23] MEDS: METOCLOPRAMIDE HCL 10 MG/10 ML SOLN UDC FEED TUBE ×4 (08:52→21:31)
[2020-03-23] MEDS: FUROSEMIDE 20 MG TABLET FEED TUBE (08:52)
--- NOTE | 2020-03-23 10:00 | PM.CNGS ---
Assessment and Plan Assessment and plan (1) Aspiration pneumonia: Qualifiers: Aspiration pneumonia type: unspecified Laterality: bilateral Lung location: lower lobe of lung Qualified Code(s): J69.0 - Pneumonitis due to inhalation of food and vomit Code(s): J69.0 - Pneumonitis due to inhalation of food and vomit Status: Acute Assessment and Plan: Pneumonia felt to be secondary to aspiration. Patient having frequent vomiting with bolus G-tube feedings. Being treated with IV antibiotics, bronchodilators, and supportive care. I discussed the case with Dr. Young. We plan to get a G-tube contrast study today to evaluate the location of the G-tube and the function of the stomach. May consider G-tube feeds going continuously rather than bolus feedings over the weekend, if the study is negative. Plan pending G-tube contrast study results. Thank you for allowing us to see the patient in consultation and we will continue to follow along with you. (2) PEG (percutaneous endoscopic gastrostomy) status: Code(s): Z93.1 - Gastrostomy status Status: Chronic Assessment and Plan: See plan above. G-tube contrast study for today. (3) DM2 (diabetes mellitus, type 2): Qualifiers: Diabetes mellitus care home insulin use: with lobsterman use Diabetes mellitus complication status: with hyperglycemia Qualified Code(s): E11.65 - Type 2 diabetes mellitus with hyperglycemia; Z79.4 - senior living (current) use of insulin Code(s): E11.9 - Type 2 diabetes mellitus without complications Status: Chronic (4) Brain tumor: Code(s): D49.6 - Neoplasm of unspecified behavior of brain Status: Chronic (5) Altered mental status: Qualifiers: Altered mental status type: unspecified Qualified Code(s): R41.82 - Altered mental status, unspecified Code(s): R41.82 - Altered mental status, unspecified Status: Chronic Assessment and Plan: Encephalopathy related to severe COVID pneumonia last month. She seems more verbal and alert on my exam, hopefully this is improving. Additional Plan Discussed the patient's case and plan of care with Dr. Young. History of Present Illness Consult details Consult date: 03/23/20 Reason for consult: other (Surgical evaluation for jejunostomy tube placement) Requesting physician: Boby Ko MD Narrative: This is a 75-year-old female who was previously admitted to [facility] from 01/28/2020 through 02/25/2020 for acute respiratory failure, shock, and acute encephalopathy secondary to COVID pneumonia. During that hospitalization, the patient failed a swallow study and subsequently had placement of a percutaneous gastrostomy tube by GI on 02/24/2020. She was receiving bolus feedings for nutrition after discharge and was discharged back to [facility] and rehab. According to electronic medical record, the patient was apparently nonverbal following this hospitalization, but on my exam today she is able to answer most of my questions and even form some sentences. She is confused on place but is aware of the year and that she is being treated for pneumonia. While at the [facility], the patient had multiple episodes of vomiting. On 03/16/2020, she had an episode of vomiting that was followed by significant hypoxia. She was then taken to the emergency department for further evaluation. CT scan of abdomen and pelvis showed no acute abnormality of the abdomen and pelvis. She was found to have aspiration pneumonia and is being treated for such by the hospitalist. She is currently on broad-spectrum IV antibiotics and bronchodilators. Due to the issues of emesis causing aspiration pneumonia through the gastric tube, our service has been consulted for surgical evaluation of possible placement of a jejunostomy tube. The patient is now being seen on the medical floor. She denies having any pain at this time. Denies any history o
--- NOTE | 2020-03-23 10:33 | PCDIET ---
Nutrition Follow-Up Complete: Inadequate infusion of enteral nutrition related tube feeding rate as evidenced by current tube feeding providing 1056kcal over 22 hours/day versus estimated needs of 1350+kcal per day. Patient to meet estimated nutritional needs. Goal: Goal not met. Continue goal. Pt current nutrition is npo Nutrition recommendation: Recommend trickle feeds via G tube with Vital 1.2 at 10ml/hr or starting Clinimix 4.25/5% + 250ml 20% lipids at 40ml/hr day one with goal of 80ml/hr day two with tolerance to provide 1153kcals, 82g protein, and 2170ml of free water. Last recorded weight is 63 kg, recommend updated wt Bowel Motility: 2 BMs yesterday Labs Reviewed:03/23 Hgb 9.4, Hct 31.6, Albumin 3.3, K 3.3, BUN 5, Cr .60 Meds Noted:Lactulose, Reglan, Flagyl, Normal Saline, KCL, Zinc Additional Notes: Pt last enteral nutrition infusion was Friday. Day three NPO today. Plans for Gtube study with contrast today to check position. Recommendation above to either start trickle feeds with more broke down elemental formula Vital 1.2. Goal rate of Vital 1.2 would be 55ml/hr, starting at 10ml/hr and advancing 10ml q 4 hrs as tolerated. Alternatively, if G tube is not useful and Jtube needed, recommend starting PPN at 40ml/hr day one,up to 80ml/hr day two if tolerated, to provide nutrition while waiting on Gtube/Jtube and feeding plan. Reassessing every five days.
[2020-03-23 12:34] LABS: Glucose Point of Care 93 (65-105)
--- NOTE | 2020-03-23 14:14 | PM.IMPN ---
Progress Note: A&P Assessment and Plan (1) Sepsis: Qualifiers: Acute respiratory failure type: with hypoxia Sepsis acute organ dysfunction status: with acute organ dysfunction Sepsis type: sepsis due to unspecified organism Severe sepsis acute organ dysfunction type: acute respiratory failure Severe sepsis shock status: without septic shock Qualified Code(s): A41.9 - Sepsis, unspecified organism; R65.20 - Severe sepsis without septic shock; J96.01 - Acute respiratory failure with hypoxia Code(s): A41.9 - Sepsis, unspecified organism Status: Acute Assessment and Plan: Sepsis criteria are met on admission with fever, tachycardia, tachypnea, leukocytosis, and elevated lactic acid level. Sepsis from UTI and aspiration PNA. Repeat lactic acid level improved. CT of the chest showing dependent airspace disease of the right upper and bilateral lower lobes in a pattern consistent with aspiration pneumonia. Blood cultures returned with 1of2 growing Coag Negative Staph. UCx growing EColi as mentioned below. Continue Rocephin and Flagyl. Vanco started 03/17 for +BCx but felt this is a contaminate so this was stopped 03/19. BCx repeated and NG. (2) Aspiration pneumonia: Qualifiers: Aspiration pneumonia type: unspecified Laterality: bilateral Lung location: lower lobe of lung Qualified Code(s): J69.0 - Pneumonitis due to inhalation of food and vomit Code(s): J69.0 - Pneumonitis due to inhalation of food and vomit Status: Acute Assessment and Plan: CT Chest concerning for aspiration PNA. Continue aspiration precautions. Tube feeds resumed but had recurrrence of SOB and worsening hypoxia. TF stopped again. Apparently she had been on metoclopramide at 1 point in time and it is still on her home med list. This has already been resumed and she seems to be tolerating it well. Continue Rocephin and Flagyl. (D#8 IV antibiotics) Minimize meds through G-Tube. Continue phenergan for nausea; stopped Zofran since can prolong QT and already on Reglan . xray of G tube today 03/23 no reflux so will try low rate continuous feeds again. If high residual or more aspiration then J tube. (3) Acute respiratory failure with hypoxia: Code(s): J96.01 - Acute respiratory failure with hypoxia Status: Acute Assessment and Plan: Patient was on 7L HFNC but able to be weaned to 1L. Intermittant cough with hypoxia Continue pulmozyme, Albuterol and Atrovent. May need J-tube to prevent recurrent aspirations but trial of continuous feeds again. She is full code. (4) Insulin dependent type 2 diabetes mellitus: Code(s): E11.9 - Type 2 diabetes mellitus without complications; Z79.4 - [facility] (current) use of insulin Status: Inactive Assessment and Plan: A1c 7.5. The patient's blood glucose was reviewed on 03/23 Glucose good control. Continue AccuCheks covering with sliding scale. Hypoglycemia protocol available as needed. Holding Levemir with FBS 93, may need to restart with feedings , will moniter. (5) Gastroesophageal reflux disease: Code(s): K21.9 - Gastro-esophageal reflux disease without esophagitis Status: Inactive Assessment and Plan: Stable. Continue Pepcid and Prevacid. Continue to have HOB elevated. (6) Elevated LFTs: Code(s): R79.89 - Other specified abnormal findings of blood chemistry Status: Acute Assessment and Plan: AST and ALT mildly elevated and this has been noted in the past. CT scan showing a 2.6 cm liver cyst right hepatic lobe but otherwise no acute issues. Monitor periodically. (7) DVT prophylaxis: Code(s): Z29.9 - Encounter for prophylactic measures, unspecified Status: Acute Assessment and Plan: Lovenox. (8) UTI (urinary tract infection): Code(s): N39.0 - Urinary tract infection, site not specified Status: Acute Assessment and
--- NOTE | 2020-03-23 15:53 | WPDGIPROGNO ---
Progress Note: A&P Additional Plan GI Larissa 23 Mar 2020 Nurse reports improvement in cough. Residuals 10 cc or less VSS soft/NT Hct 32, WBC 11. TB 0.2, A/P 71, AST 42, ALT 34 03-19-2020: B12 508, folate 8, ferritin 58, fe 27, tibc 294, %sat 10 ASSESSMENT AND PLAN: 1. Gastroesophageal reflux disease. Continue PPI. 2. Abnormal transaminases, minimal. Would observe. 3. Screening for colon cancer. Could consider colonoscopy when stable or consider Cologuard, which may be more appropriate for this patient if not already done. 4. Chronic blood loss anemia: - Labs consistent with LALO - Venofer->po iron as OP 5. Aspiration pneumonia: - Patient has a 20-Hebrew gastrostomy tube in - Contrast injection thru PEG 03-23-2020 shows good position and no obstruction - Try conservative measures such as raising the head of the bed - Now on Reglan - In am consider starting feeding on a pump at low volume - Can use 2 ileana HN to decrease volume - Should these fail, would consider surgical jejunostomy tube - I am not in favor of G-tubes with small bowel extensions as these typically only go into the 3rd portion of the duodenum, have a high spontaneous failure rate with the patient having significant coughing or emesis. They often fail unpredictably and in patients with decreased mental status, the typical presentation for GJ tube failure is aspiration. Surgical J-tubes are much more reliable Thanks, [facility] [phone] Subjective Date/time seen: 03/23/20 15:53 Objective Data Vital Signs Vital Signs: Vital Signs - 24 hr 03/22/20 17:00 03/22/20 19:30 03/22/20 19:41 Temperature Pulse Rate 53 L 55 L Respiratory Rate 22 H 22 H Blood Pressure Pulse Oximetry 95 95 03/22/20 20:35 03/22/20 22:00 03/23/20 02:10 Temperature 36.7 C Pulse Rate 58 L 58 L 61 Respiratory Rate 17 17 24 H Blood Pressure 122/40 L Pulse Oximetry 100 100 03/23/20 02:19 03/23/20 05:43 03/23/20 07:45 Temperature 35.7 C L Pulse Rate 63 89 72 Respiratory Rate 24 H 16 22 H Blood Pressure 121/49 L Pulse Oximetry 95 94 03/23/20 08:01 03/23/20 13:53 03/23/20 14:00 Temperature 36.3 C L Pulse Rate 76 72 76 Respiratory Rate 20 20 18 Blood Pressure 117/50 L Pulse Oximetry 90 03/23/20 14:01 Temperature Pulse Rate 68 Respiratory Rate 20 Blood Pressure Pulse Oximetry Intake/Output Intake/Output: Intake & Output 03/20/20 03/21/20 03/22/20 03/23/20 23:59 23:59 23:59 23:59 Intake Total 250 1250 1250 100 Output Total 800 1525 2050 500 Balance -550 -275 -800 -400 Meds/Results Medications: Active Medications Generic Name Dose Route Start Last Admin Trade Name Freq PRN Reason Stop Dose Admin Albuterol 5 mg 03/16/20 20:00 03/23/20 13:52 Albuterol Sulfate Neb 2.5 Mg/0.5 Ml Inh INHALATION 5 mg Q6HRT BRYCE Administration Albuterol 2.5 mg 03/16/20 23:26 Albuterol Sulfate Neb 2.5 Mg/0.5 Ml Inh INHALATION Q4HRT PRN Shortness Of Breath Ascorbic Acid 500 mg 03/17/20 09:00 03/20/20 09:14 Ascorbic Acid 500 Mg Tablet FEED TUBE 500 mg DAILY BRYCE Administration Dextrose 12.5 gm 03/17/20 00:12 Dextrose 50% 25 Gm/50 Ml Syringe IV PUSH PRN PRN Hypoglycemia Protocol Dornase Miguel 2.5 mg 03/17/20 20:00 03/23/20 07:43 Dornase Miguel Inh Soln 1 Mg/Ml 2.5 Ml Amp INHALATION 2.5 mg Q12HRT BRYCE Administration Enoxaparin Sodium 40 mg 03/19/20 09:00 03/23/20 08:51 Enoxaparin 40 Mg/0.4 Ml Syringe SUB-Q 40 mg DAILY BRYCE Administration Ergocalciferol 50,000 unit 03/24/20 09:00 Ergocalciferol 50,000 Unit Capsule FEED TUBE Fr@0900 BRYCE Famotidine 40 mg 03/17/20 09:00 03/23/20 08:51 Famotidine 20 Mg Tablet FEED TUBE 40 mg DAILY BRYCE Administration Furosemide 20 mg 03/17/20 09:00 03/23/20 08:52 Furosemide 20 Mg Tablet FEED TUBE 20 mg DAILY BRYCE Administration Glucagon 1 mg 03/17/20 00:12 Glucagon For Inj 1 Mg Vial IM PRN AL
[2020-03-23] MEDS: SODIUM CHLORIDE 0.9% IV 1,000 ML 50 ML IV CONT (17:43)
[2020-03-23] MEDS: POTASSIUM CHLORIDE 20 MEQ PACKET (FOR LIQUID) 40 MEQ FEED TUBE (17:46)
[2020-03-23 18:16] LABS: Glucose Point of Care 87 (65-105)
[2020-03-24] VITALS (12 sets, daily range): BP systolic 102–112; BP diastolic 43–94; PULSE 67–93; RESP 16–20; TEMP 36–36.6; O2SAT 91–96
[2020-03-24] MEDS: metroNIDAZOLE 250MG/ISO 50 ML 250 MG/50 ML BAG 50 MG IVPB ×4 (00:31→18:13)
[2020-03-24 01:05] LABS: Glucose Point of Care 111 (65-105)
[2020-03-24] MEDS: ALBUTEROL SULFATE NEB 2.5 MG/0.5 ML INH 5 MG INHALATION ×2 (01:53→21:11)
[2020-03-24] MEDS: IPRATROPIUM BR 0.02% INH SOLN 0.5 MG/2.5 ML VIAL INHALATION ×2 (01:53→21:21)
[2020-03-24] MEDS: LANSOPRAZOLE ORAL SUSP 30 MG/10 ML ORAL.SUSP FEED TUBE (06:02)
[2020-03-24] MEDS: SODIUM CHLORIDE 0.9% IV 1,000 ML 50 ML IV CONT (06:02)
[2020-03-24 06:20] LABS: Glucose Point of Care 129 (65-105)
--- NOTE | 2020-03-24 08:09 | PCRCNOTE ---
loaded pt resp med into nebulizer/ started to put it on pt and she refued tx. Said she didn't want it .
[2020-03-24] MEDS: ENOXAPARIN 40 MG/0.4 ML SYRINGE SUB-Q (09:48)
[2020-03-24] MEDS: FAMOTIDINE 20 MG TABLET 40 MG FEED TUBE (09:48)
[2020-03-24] MEDS: MIDODRINE HCL 10 MG TABLET FEED TUBE ×3 (09:48→18:13)
[2020-03-24] MEDS: METOCLOPRAMIDE HCL 10 MG/10 ML SOLN UDC FEED TUBE ×4 (09:49→21:11)
[2020-03-24] MEDS: FUROSEMIDE 20 MG TABLET FEED TUBE (09:49)
--- NOTE | 2020-03-24 09:59 | PM.PNPUL ---
Progress Note: A&P Time Spent With Patient Time: Dr. Hinds and I murary. Time with patient: 15 - 25 minutes Subjective Date/time seen: 03/24/20 09:59 Appears to be resting comfortably on O2. Again nonverbal. Exam Narrative: Exam Narrative: Nonverbal. Appears comfortable on O2. Chest sounds clear. Objective Data Vital Signs Vital Signs: Vital Signs - 24 hr 03/23/20 13:53 03/23/20 14:00 03/23/20 14:01 Temperature 36.3 C L Pulse Rate 72 76 68 Respiratory Rate 20 18 20 Blood Pressure 117/50 L Pulse Oximetry 90 03/23/20 19:56 03/23/20 19:58 03/23/20 20:14 Temperature Pulse Rate 78 75 Respiratory Rate 20 20 Blood Pressure Pulse Oximetry 94 03/23/20 20:35 03/23/20 22:00 03/24/20 01:53 Temperature 36.1 C L Pulse Rate 82 72 Respiratory Rate 18 20 Blood Pressure 105/44 L Pulse Oximetry 94 94 03/24/20 02:03 03/24/20 05:54 03/24/20 09:36 Temperature 36.6 C Pulse Rate 75 67 75 Respiratory Rate 20 20 18 Blood Pressure 112/52 L 112/43 L Pulse Oximetry 96 96 Intake/Output Intake/Output: Intake & Output 03/21/20 03/22/20 03/23/20 03/24/20 23:59 23:59 23:59 23:59 Intake Total 1250 1250 1200 1050 Output Total 1525 2050 1900 150 Balance -275 -800 -700 900 Meds/Results Medications: Active Medications Generic Name Dose Route Start Last Admin Trade Name Freq PRN Reason Stop Dose Admin Albuterol 5 mg 03/16/20 20:00 03/24/20 08:09 Albuterol Sulfate Neb 2.5 Mg/0.5 Ml Inh INHALATION Not Given Q6HRT BRYCE Albuterol 2.5 mg 03/16/20 23:26 Albuterol Sulfate Neb 2.5 Mg/0.5 Ml Inh INHALATION Q4HRT PRN Shortness Of Breath Ascorbic Acid 500 mg 03/17/20 09:00 03/20/20 09:14 Ascorbic Acid 500 Mg Tablet FEED TUBE 500 mg DAILY BRYCE Administration Dextrose 12.5 gm 03/17/20 00:12 Dextrose 50% 25 Gm/50 Ml Syringe IV PUSH PRN PRN Hypoglycemia Protocol Dornase Miguel 2.5 mg 03/17/20 20:00 03/24/20 08:08 Dornase Miguel Inh Soln 1 Mg/Ml 2.5 Ml Amp INHALATION Not Given Q12HRT BRYCE Enoxaparin Sodium 40 mg 03/19/20 09:00 03/24/20 09:48 Enoxaparin 40 Mg/0.4 Ml Syringe SUB-Q 40 mg DAILY BRYCE Administration Ergocalciferol 50,000 unit 03/24/20 09:00 Ergocalciferol 50,000 Unit Capsule FEED TUBE Fr@0900 BRYCE Famotidine 40 mg 03/17/20 09:00 03/24/20 09:48 Famotidine 20 Mg Tablet FEED TUBE 40 mg DAILY BRYCE Administration Furosemide 20 mg 03/17/20 09:00 03/24/20 09:49 Furosemide 20 Mg Tablet FEED TUBE 20 mg DAILY BRYCE Administration Glucagon 1 mg 03/17/20 00:12 Glucagon For Inj 1 Mg Vial IM PRN PRN Hypoglycemia Protocol Glucose 15 gm 03/17/20 00:12 Glucose Oral Gel 15 Gm Of Glucse In 37.5 Gm Tube PO PRN PRN Hypoglycemia Protocol Dextrose 1,000 mls @ 100 mls/hr 03/17/20 00:12 Dextrose 5% 1,000 Ml IVPB PRN PRN Hypoglycemia Protocol Metronidazole 250 mg in 50 mls @ 50 mls/hr 03/18/20 12:00 03/24/20 06:03 Flagyl 250 Mg/Iso Soln 50 Ml IVPB 50 mls/hr Q6H BRYCE Administration Ceftriaxone Sodium/Dextrose 1 gm in 50 mls @ 100 mls/hr 03/18/20 11:00 03/23/20 13:01 Rocephin 1 Gm/D5w 50 Ml IVPB 100 mls/hr Q24H BRYCE Administration Sodium Chloride 1,000 mls @ 50 mls/hr 03/20/20 18:05 03/24/20 06:02 Normal Saline Iv IV CONT 50 mls/hr .Q20H BRYCE Administration Insulin Aspart 2 - 5 units 03/19/20 00:00 03/24/20 06:17 Insulin Aspart (*Bkc) 100 Units/Ml SUB-Q Not Given Q6HR BRYCE Protocol Insulin Detemir 12 units 03/18/20 09:00 03/20/20 09:17 Insulin Detemir 100 Units/Ml SUB-Q 04/17/20 09:01 Not Given DAILY BRYCE Ipratropium [place] 0.5 mg 03/16/20 20:00 03/24/20 08:09 Ipratropium Br 0.02% Inh Soln 0.5 Mg/2.5 Ml Vial INHALATION Not Given Q6HRT BRYCE Ipratropium [place] 0.5 mg 03/17/20 09:51 Ipratropium Br 0.02% Inh Soln 0.5 Mg/2.5 Ml Vial INHALATION Q4HRT PRN Vianey
--- NOTE | 2020-03-24 10:59 | WPDGIPROGNO ---
Progress Note: A&P Additional Plan GI Larissa 24 Mar 2020 Patient non-verbal. Case reviewed with VICTORINO Ceja. Chintan TF at 30 cc/hr. Residuals 10 cc or less. VSS soft/NT 03-23-2020: Hct 32, WBC 11. TB 0.2, A/P 71, AST 42, ALT 34 03-19-2020: B12 508, folate 8, ferritin 58, fe 27, tibc 294, %sat 10 ASSESSMENT AND PLAN: 1. Gastroesophageal reflux disease. Continue PPI. 2. Abnormal transaminases, minimal. Would observe. 3. Screening for colon cancer: consider colonoscopy or Cologuard when stable if not already done. 4. Chronic blood loss anemia: - Labs consistent with LALO - Venofer->po/GT iron as OP 5. Aspiration pneumonia: - Patient has a 20-[place]gas[place] gastrostomy tube in - Contrast injection thru PEG 03-23-2020 shows good position and no obstruction - Seems improved with conservative measures of raising the head of the bed, Reglan, pump feeds - Can use 2 ileana HN to decrease volume - Should these fail, would consider surgical jejunostomy tube - I am not in favor of G-tubes with small bowel extensions as these typically only go into the 3rd portion of the duodenum, have a high spontaneous failure rate with the patient having significant coughing or emesis. They often fail unpredictably and in patients with decreased mental status, the typical presentation for GJ tube failure is aspiration. Surgical J-tubes are much more reliable Thanks, [facility] [phone] Subjective Date/time seen: 03/24/20 10:59 Objective Data Vital Signs Vital Signs: Vital Signs - 24 hr 03/23/20 13:53 03/23/20 14:00 03/23/20 14:01 Temperature 36.3 C L Pulse Rate 72 76 68 Respiratory Rate 20 18 20 Blood Pressure 117/50 L Pulse Oximetry 90 03/23/20 19:56 03/23/20 19:58 03/23/20 20:14 Temperature Pulse Rate 78 75 Respiratory Rate 20 20 Blood Pressure Pulse Oximetry 94 03/23/20 20:35 03/23/20 22:00 03/24/20 01:53 Temperature 36.1 C L Pulse Rate 82 72 Respiratory Rate 18 20 Blood Pressure 105/44 L Pulse Oximetry 94 94 03/24/20 02:03 03/24/20 05:54 03/24/20 09:36 Temperature 36.6 C Pulse Rate 75 67 75 Respiratory Rate 20 20 18 Blood Pressure 112/52 L 112/43 L Pulse Oximetry 96 96 03/24/20 09:45 Temperature Pulse Rate Respiratory Rate Blood Pressure Pulse Oximetry 96 Intake/Output Intake/Output: Intake & Output 03/21/20 03/22/20 03/23/20 03/24/20 23:59 23:59 23:59 23:59 Intake Total 1250 1250 1200 1050 Output Total 1525 2050 1900 150 Balance -275 -800 -700 900 Meds/Results Medications: Active Medications Generic Name Dose Route Start Last Admin Trade Name Freq PRN Reason Stop Dose Admin Albuterol 5 mg 03/16/20 20:00 03/24/20 08:09 Albuterol Sulfate Neb 2.5 Mg/0.5 Ml Inh INHALATION Not Given Q6HRT BRYCE Albuterol 2.5 mg 03/16/20 23:26 Albuterol Sulfate Neb 2.5 Mg/0.5 Ml Inh INHALATION Q4HRT PRN Shortness Of Breath Ascorbic Acid 500 mg 03/17/20 09:00 03/20/20 09:14 Ascorbic Acid 500 Mg Tablet FEED TUBE 500 mg DAILY BRYCE Administration Dextrose 12.5 gm 03/17/20 00:12 Dextrose 50% 25 Gm/50 Ml Syringe IV PUSH PRN PRN Hypoglycemia Protocol Dornase Miguel 2.5 mg 03/17/20 20:00 03/24/20 08:08 Dornase Miguel Inh Soln 1 Mg/Ml 2.5 Ml Amp INHALATION Not Given Q12HRT BRYCE Enoxaparin Sodium 40 mg 03/19/20 09:00 03/24/20 09:48 Enoxaparin 40 Mg/0.4 Ml Syringe SUB-Q 40 mg DAILY BRYCE Administration Ergocalciferol 50,000 unit 03/24/20 09:00 Ergocalciferol 50,000 Unit Capsule FEED TUBE Fr@0900 BRYCE Famotidine 40 mg 03/17/20 09:00 03/24/20 09:48 Famotidine 20 Mg Tablet FEED TUBE 40 mg DAILY BRYCE Administration Furosemide 20 mg 03/17/20 09:00 03/24/20 09:49 Furosemide 20 Mg Tablet FEED TUBE 20 mg DAILY BRYCE Administration Glucagon 1 mg 03/17/20 00:12 Glucagon For Inj 1 Mg Vial IM PRN PRN Hypoglycemia Protocol Glucose 15 gm 03/17/20 00:12 Glucose Oral Gel 15 Gm Of Glu
--- NOTE | 2020-03-24 11:47 | PM.IMPN ---
Progress Note: A&P Assessment and Plan (1) Sepsis: Qualifiers: Acute respiratory failure type: with hypoxia Sepsis acute organ dysfunction status: with acute organ dysfunction Sepsis type: sepsis due to unspecified organism Severe sepsis acute organ dysfunction type: acute respiratory failure Severe sepsis shock status: without septic shock Qualified Code(s): A41.9 - Sepsis, unspecified organism; R65.20 - Severe sepsis without septic shock; J96.01 - Acute respiratory failure with hypoxia Code(s): A41.9 - Sepsis, unspecified organism Status: Acute Assessment and Plan: Sepsis criteria are met on admission with fever, tachycardia, tachypnea, leukocytosis, and elevated lactic acid level. Sepsis from UTI and aspiration PNA. Repeat lactic acid level improved. CT of the chest showing dependent airspace disease of the right upper and bilateral lower lobes in a pattern consistent with aspiration pneumonia. Blood cultures returned with 1of2 growing Coag Negative Staph. UCx growing EColi as mentioned below. Continue Rocephin and Flagyl. Vanco started 03/17 for +BCx but felt this is a contaminate so this was stopped 03/19. BCx repeated and NG. D#9 IV antibiotics (2) Aspiration pneumonia: Qualifiers: Aspiration pneumonia type: unspecified Laterality: bilateral Lung location: lower lobe of lung Qualified Code(s): J69.0 - Pneumonitis due to inhalation of food and vomit Code(s): J69.0 - Pneumonitis due to inhalation of food and vomit Status: Acute Assessment and Plan: CT Chest concerning for aspiration PNA. Continue aspiration precautions. Tube feeds resumed but had recurrrence of SOB and worsening hypoxia. TF stopped again. Apparently she had been on metoclopramide at 1 point in time and it is still on her home med list. This has already been resumed and she seems to be tolerating it well. Continue Rocephin and Flagyl. (D#9 IV antibiotics) Minimize meds through G-Tube. Continue phenergan for nausea; stopped Zofran since can prolong QT and already on Reglan . xray of G tube today 03/23 and tolerating continuous feeds again at low rate with no residual. (3) Acute respiratory failure with hypoxia: Code(s): J96.01 - Acute respiratory failure with hypoxia Status: Acute Assessment and Plan: Patient was on 7L HFNC but able to be weaned to 1L. Intermittant cough with hypoxia Continue pulmozyme, Albuterol and Atrovent. May need J-tube to prevent recurrent aspirations but trial of continuous feeds again. She is full code. (4) Insulin dependent type 2 diabetes mellitus: Code(s): E11.9 - Type 2 diabetes mellitus without complications; Z79.4 - [facility] (current) use of insulin Status: Inactive Assessment and Plan: A1c 7.5. The patient's blood glucose was reviewed on 03/23 Glucose good control. Continue AccuCheks covering with sliding scale. Hypoglycemia protocol available as needed. Holding Levemir with FBS 129, may need to restart with feedings , will moniter. (5) Gastroesophageal reflux disease: Code(s): K21.9 - Gastro-esophageal reflux disease without esophagitis Status: Inactive Assessment and Plan: Stable. Continue Pepcid and Prevacid. Continue to have HOB elevated. (6) Elevated LFTs: Code(s): R79.89 - Other specified abnormal findings of blood chemistry Status: Acute Assessment and Plan: AST and ALT mildly elevated and this has been noted in the past. CT scan showing a 2.6 cm liver cyst right hepatic lobe but otherwise no acute issues. Monitor periodically. (7) DVT prophylaxis: Code(s): Z29.9 - Encounter for prophylactic measures, unspecified Status: Acute Assessment and Plan: Lovenox. (8) UTI (urinary tract infection): Code(s): N39.0 - Urinary tract infection, site not specified Status: Acute Assessment and Plan: UA noted
[2020-03-24 12:46] LABS: Glucose Point of Care 140 (65-105)
--- NOTE | 2020-03-24 15:53 | PCDIET ---
Nutrition Follow-Up Complete: Inadequate infusion of enteral nutrition related tube feeding rate as evidenced by current tube feeding providing 1056kcal over 22 hours/day versus estimated needs of 1350+kcal per day. Patient to meet estimated nutritional needs. Goal: Progressing towards goal. Continue goal Pt current nutrition is Jevity 1.5 @ 30ml/hr Nutrition recommendation: Recommend increasing rate of Jevity 1.5 to 45ml/hr to better meet pt needs Last recorded weight is 63 kg, recommend updated wt Bowel Motility: BM today Labs Reviewed:Albumin 3.3, BUN 5, Cr .60, Hgb 9.4, Hct 31.6 Meds Noted:Reglan, Lasix, Vitamin C, Senna, Normal Saline, Flagyl, Lactulose Additional Notes: Pt Gtube placement is good per GI. Plans to raise head of bed, continue Reglan, and use a more concentrated feeding to help with tolerance. Pt is a diabetic and may benefit from Glucerna if blood sugars rise. Right now, no insulin needed and glucose normal. Jevity 1.5 at 30ml/hr only providing 990 kcals, meeting 63% of kcals needs. Recommend increase to 45ml/hr over 22hrs to provide 1485kcals, 63g protein, and 752ml of free water. We will follow up every Friday/Friday.
--- NOTE | 2020-03-24 17:13 | PC.NURSE ---
This nurse returned a phone call to MAC Dumont and gave a general update on this patient and current status. All questions answered per Julia and Julia requested that Dr. Dias call her and discuss further GI concerns. Dr. Dias was notified and this nurse gave him Julia's number to call when Dr. Dias had available time.
[2020-03-24 17:22] LABS: Glucose Point of Care 121 (65-105)
[2020-03-24] MEDS: DORNASE ALFA INH SOLN 1 MG/ML 2.5 ML AMP 2.5 MG INHALATION (21:12)
[2020-03-25] VITALS (8 sets, daily range): BP systolic 103–113; BP diastolic 47–55; PULSE 77–103; RESP 16–20; TEMP 36.1–37.3; O2SAT 91–98
[2020-03-25] MEDS: metroNIDAZOLE 250MG/ISO 50 ML 250 MG/50 ML BAG 50 MG IVPB ×3 (00:28→12:04)
[2020-03-25 00:37] LABS: Glucose Point of Care 143 (65-105)
[2020-03-25] MEDS: IPRATROPIUM BR 0.02% INH SOLN 0.5 MG/2.5 ML VIAL INHALATION ×3 (03:22→20:00)
[2020-03-25] MEDS: ALBUTEROL SULFATE NEB 2.5 MG/0.5 ML INH 5 MG INHALATION ×3 (03:22→20:00)
[2020-03-25 05:42] LABS: Glucose Point of Care 157 (65-105)
[2020-03-25 06:27] LABS: Hemoglobin 9.4 g/dL (12.0-15.0); Mean Corpuscular HGB Conc 29.4 g/dl (32-36); Mean Corpuscular Hemoglobin 25.7 pg (26-34); Mean Corpuscular Volume 87.4 fl (80-100); Mean Platelet Volume 9.1 fl (7.4-10.4); Platelet Count Result 387 k/mm3 (150-375); Red Blood Count 3.66 M/mm3 (4.2-5.4); Red Cell Distribution Width 18.5 % (11.5-14.5); White Blood Count 8.5 K/mm3 (4.5-10.0)
[2020-03-25 06:45] LABS: Anion Gap 6 mmol/L (8-16); Blood Urea Nitrogen 6 mg/dL (7-17); Calcium 8.3 mg/dL (8.4-10.2); Carbon Dioxide 26 mmol/L (22-30); Chloride 111 mmol/L (98-107); Estimated CRCL calculation 60 ml/min; Estimated Glomerular Filt Rate > 60; Glucose 167 mg/dL (65-105); Magnesium 1.9 mg/dL (1.6-2.3); Phosphorus 2.4 mg/dL (2.5-4.5); Potassium 3.3 mmol/L (3.4-5.0); Sodium 143 mmol/L (137-145)
[2020-03-25 07:07] LABS: Atypical Lymphocytes Present; Basophils Absolute Manual 0.08 K/mm3 (0.0-0.1); Basophils Percent Manual 1 % (0-1); Eosinophils Absolute Manual 0.76 K/mm3 (0.02-0.5); Eosinophils Percent Manual 9 % (0-4); Lymphocytes Absolute Manual 2.55 K/mm3 (1.1-4.5); Metamyelocytes Percent 1 %; Monocytes Absolute Manual 0.68 K/mm3 (0.1-0.90); Monocytes Percent Manual 8 % (3-9); Neutrophils Percent Manual 51 % (46-73); Total Cells Counted 100
[2020-03-25 07:08] LABS: Hypochromasia 2+ (NORMAL); Polychromasia 1+ (NORMAL)
[2020-03-25] MEDS: LANSOPRAZOLE ORAL SUSP 30 MG/10 ML ORAL.SUSP FEED TUBE (08:05)
[2020-03-25] MEDS: DORNASE ALFA INH SOLN 1 MG/ML 2.5 ML AMP 2.5 MG INHALATION ×2 (09:27→20:00)
[2020-03-25] MEDS: ENOXAPARIN 40 MG/0.4 ML SYRINGE SUB-Q (09:34)
[2020-03-25] MEDS: METOCLOPRAMIDE HCL 10 MG/10 ML SOLN UDC FEED TUBE ×4 (09:34→22:06)
[2020-03-25] MEDS: FAMOTIDINE 20 MG TABLET 40 MG FEED TUBE (09:34)
[2020-03-25] MEDS: FUROSEMIDE 20 MG TABLET FEED TUBE (09:34)
[2020-03-25] MEDS: MIDODRINE HCL 10 MG TABLET FEED TUBE ×3 (09:34→18:12)
[2020-03-25] MEDS: POTASSIUM CHLORIDE 20 MEQ PACKET (FOR LIQUID) 40 MEQ FEED TUBE (09:36)
--- NOTE | 2020-03-25 11:31 | WPDGIPROGNO ---
Progress Note: A&P Additional Plan GI Larissa 25 Mar 2020 Patient non-verbal. Case reviewed with RN. Chintan TF at 30 cc/hr. Residuals 10 cc or less. VSS soft/NT 03-25-2020: Hct 32 03-23-2020: Hct 32, WBC 11. TB 0.2, A/P 71, AST 42, ALT 34 03-19-2020: B12 508, folate 8, ferritin 58, fe 27, tibc 294, %sat 10 ASSESSMENT AND PLAN: 1. Gastroesophageal reflux disease. Continue PPI. 2. Abnormal transaminases, minimal. Would observe. 3. Screening for colon cancer: consider colonoscopy or Cologuard when stable if not already done. 4. Chronic blood loss anemia: - Labs consistent with LALO - Venofer->po/GT iron as OP 5. Aspiration pneumonia: - Patient has a 20-[place] gastrostomy tube in - Contrast injection thru PEG 03-23-2020 shows good position and no obstruction - Seems improved with conservative measures of raising the head of the bed, Reglan, pump feeds - Can use 2 ileana HN to decrease volume - Should these fail, would consider surgical jejunostomy tube - I am not in favor of G-tubes with small bowel extensions as these typically only go into the 3rd portion of the duodenum, have a high spontaneous failure rate with the patient having significant coughing or emesis. They often fail unpredictably and in patients with decreased mental status, the typical presentation for GJ tube failure is aspiration. Surgical J-tubes are much more reliable Case discussed at length with niece/POA Julia Phelps ([phone]) and brother (retired physician.) While they appreciate that patient is doing well on current measures they have significant concerns regarding going back to NH with PEG alone. They feel that she is at increased risk for aspiration as they will not be vigilant about measures as we are doing. They request reconsideration of Surgical feeding tube. They clearly understand that patient will still be at risk for aspiration of secretions and anything po. They understand further that endoscopic GJ is not an option (see above.) And, they understand that feeding J-tube placed by surgery has significant risks and will not eliminate possibility of aspiration. Lastly, they understand that there is no need to re-evaluate swallowing at this time due to current mental status and inability to follow commands and continued recent aspiration. I have reviewed the case with Dr. Ko and Dr. Nuno. Dr. Nuno will re-evaluate the patient today and discuss with family. I have communicated this today to Julia (11:40 am) by phone. I have no further GI recommendations at this time. Please call if needed. Thanks, AMBER [phone] Subjective Date/time seen: 03/25/20 11:31 Objective Data Vital Signs Vital Signs: Vital Signs - 24 hr 03/24/20 14:00 03/24/20 18:10 03/24/20 20:00 Temperature 36.6 C Pulse Rate 76 93 Respiratory Rate 20 18 Blood Pressure 107/48 L 108/94 H Pulse Oximetry 96 96 93 03/24/20 21:20 03/24/20 21:21 03/24/20 21:35 Temperature Pulse Rate 81 85 Respiratory Rate 18 18 Blood Pressure Pulse Oximetry 91 03/24/20 22:00 03/25/20 03:22 03/25/20 03:32 Temperature 36.0 C L Pulse Rate 78 77 80 Respiratory Rate 16 18 18 Blood Pressure 102/44 L Pulse Oximetry 91 03/25/20 06:00 03/25/20 09:28 03/25/20 09:35 Temperature 36.2 C L Pulse Rate 88 88 81 Respiratory Rate 16 18 20 Blood Pressure 113/49 L Pulse Oximetry 93 91 Intake/Output Intake/Output: Intake & Output 03/22/20 03/23/20 03/24/20 03/25/20 23:59 23:59 23:59 23:59 Intake Total 1250 1250 1250 100 Output Total 2050 1900 730 150 Balance -800 -650 520 -50 Meds/Results Medications: Active Medications Generic Name Dose Route Start Last Admin Trade Name Freq PRN Reason Stop Dose Admin Albuterol 5 mg 03/16/20 20:00 03/25/20 09:27 Albuterol Sulfate Neb 2.5 Mg/0.5 Ml Inh INHALATION 5 mg Q6HRT BRYCE Administration Albuterol 2.5 mg 03/16/20 23:26 Albuterol Sulfate Neb 2.5 Mg/0.5 Ml Inh INHALATION Q4HRT PRN Shortne
[2020-03-25] MEDS: SODIUM CHLORIDE 0.9% IV 1,000 ML 50 ML IV CONT (13:02)
[2020-03-25 13:11] LABS: Glucose Point of Care 159 (65-105)
--- NOTE | 2020-03-25 16:23 | PM.IMPN ---
Progress Note: A&P Assessment and Plan (1) Sepsis: Qualifiers: Acute respiratory failure type: with hypoxia Sepsis acute organ dysfunction status: with acute organ dysfunction Sepsis type: sepsis due to unspecified organism Severe sepsis acute organ dysfunction type: acute respiratory failure Severe sepsis shock status: without septic shock Qualified Code(s): A41.9 - Sepsis, unspecified organism; R65.20 - Severe sepsis without septic shock; J96.01 - Acute respiratory failure with hypoxia Code(s): A41.9 - Sepsis, unspecified organism Status: Acute Assessment and Plan: Sepsis criteria are met on admission with fever, tachycardia, tachypnea, leukocytosis, and elevated lactic acid level. Sepsis from UTI and aspiration PNA. Repeat lactic acid level improved. CT of the chest showing dependent airspace disease of the right upper and bilateral lower lobes in a pattern consistent with aspiration pneumonia. Blood cultures returned with 1of2 growing Coag Negative Staph. UCx growing EColi as mentioned below. Continue Rocephin and Flagyl. Vanco started 03/17 for +BCx but felt this is a contaminate so this was stopped 03/19. BCx repeated and NG. D#10 IV antibiotics and will d/c (2) Aspiration pneumonia: Qualifiers: Aspiration pneumonia type: unspecified Laterality: bilateral Lung location: lower lobe of lung Qualified Code(s): J69.0 - Pneumonitis due to inhalation of food and vomit Code(s): J69.0 - Pneumonitis due to inhalation of food and vomit Status: Acute Assessment and Plan: CT Chest concerning for aspiration PNA. Continue aspiration precautions. Tube feeds resumed but had recurrrence of SOB and worsening hypoxia. TF stopped again. Apparently she had been on metoclopramide at 1 point in time and it is still on her home med list. This has already been resumed and she seems to be tolerating it well. Continue Rocephin and Flagyl. (D#10 IV antibiotics) Minimize meds through G-Tube. Continue phenergan for nausea; stopped Zofran since can prolong QT and already on Reglan . xray of G tube today 03/23 and tolerating continuous feeds again at low rate with no residual and increased to 40ml (about 1500 ileana/day). (3) Acute respiratory failure with hypoxia: Code(s): J96.01 - Acute respiratory failure with hypoxia Status: Acute Assessment and Plan: Patient was on 7L HFNC but able to be weaned to RA. Intermittant cough with hypoxia Continue pulmozyme, Albuterol and Atrovent. May need J-tube to prevent recurrent aspirations but trial of continuous feeds again and doing well. She is full code. (4) Insulin dependent type 2 diabetes mellitus: Code(s): E11.9 - Type 2 diabetes mellitus without complications; Z79.4 - [facility] (current) use of insulin Status: Inactive Assessment and Plan: A1c 7.5. The patient's blood glucose was reviewed on 03/25/20 Glucose good control. Continue AccuCheks covering with sliding scale. Hypoglycemia protocol available as needed. Holding Levemir may need to restart with feedings , will moniter. (5) Gastroesophageal reflux disease: Code(s): K21.9 - Gastro-esophageal reflux disease without esophagitis Status: Inactive Assessment and Plan: Stable. Continue Pepcid and Prevacid. Continue to have HOB elevated. (6) Elevated LFTs: Code(s): R79.89 - Other specified abnormal findings of blood chemistry Status: Acute Assessment and Plan: AST and ALT mildly elevated and this has been noted in the past. CT scan showing a 2.6 cm liver cyst right hepatic lobe but otherwise no acute issues. Monitor periodically. (7) DVT prophylaxis: Code(s): Z29.9 - Encounter for prophylactic measures, unspecified Status: Acute Assessment and Plan: Lovenox. (8) UTI (urinary tract infection): Code(s): N39.0 - Urinary tract infection, site not specif
--- NOTE | 2020-03-25 16:41 | PM.PNPUL ---
Progress Note: A&P Assessment and Plan (1) Aspiration pneumonia: Qualifiers: Aspiration pneumonia type: unspecified Laterality: bilateral Lung location: lower lobe of lung Qualified Code(s): J69.0 - Pneumonitis due to inhalation of food and vomit Code(s): J69.0 - Pneumonitis due to inhalation of food and vomit Status: Acute Assessment and Plan: She had COVID Jan 20, acute respiratory failure Jan 27 - Feb 24 after G-tube placed; Readmitted Mar 16 with altered mentation, recurrent respiratory failure due to recurrent aspiration; she has a G-tube, and the position has been confirmed to be in the correct location Mar 23. She is more alert and on room air. No changes recommended at this point. Subjective Date/time seen: 03/25/20 16:41 This 75 year old female is seen in follow up for aspiration with secondary pneumonia and hypoxemia. She is on room air with saturation 98%. She is able to tell me that she is in a hospital, denies having pain, says that she is not short of breath. This is an improvement in her level of responsiveness, not having been able to talk much prior to today. Last Chest CT 03/16 - infiltrate in the RUL and bilateral lower lobes c/w aspiration Last CXR 03/19: coarse interstitial infiltrates diffusely in the right lung and left lower lung zone. Ddx: pneumonia, atelectasis and/or chronic fibrosis. Prior history: Jan 20- COVID (+) at [facility] Jan 27 - Feb 24 ; admission with altered mental status, intubated in ER @ [place]; hypernatremia, acute renal failure BUN/creat 53/1.7, increased transaminases, septic shock, acute respiratory failure, and encephalopathy attributed to COVID pneumonia. * Dec - PEG placed by Dr Kaplan Mar 16 - readmitted with worsening mental status, sepsis, acute hypoxemic respiratory failure with aspiration pneumonia; has been weaned to room air from 7 L Review of Systems Review of Systems: All systems reviewed & are unremarkable except as noted in HPI and below Exam Narrative: Exam Narrative: Alert, frail 75 year old female, not in distress; chronically deconditioned. She is on room air. Const: General: no acute distress Eyes: General: appearance normal, both eyes and all related structures Resp: Auscultation: diminished lung sounds Other: She is weak, not able to lean forward to allow a full exam of the posterior lung adrian Cardio: Rate: regular rate Rhythm: regular rhythm Heart sounds: S1 normal heart sound present, S2 normal heart sound present, no gallops and no murmurs Skin: General skin exam: normal color Neuro: Speech: normal speech (weak speech, words are clear) Extrem: General: edema (trace edema in her fingers) bilateral Psych: Other: not much energy Objective Data Vital Signs Vital Signs: Vital Signs - 24 hr 03/24/20 18:10 03/24/20 20:00 03/24/20 21:20 Temperature Pulse Rate 93 Respiratory Rate 18 Blood Pressure 108/94 H Pulse Oximetry 96 93 91 03/24/20 21:21 03/24/20 21:35 03/24/20 22:00 Temperature 36.0 C L Pulse Rate 81 85 78 Respiratory Rate 18 18 16 Blood Pressure 102/44 L Pulse Oximetry 91 03/25/20 03:22 03/25/20 03:32 03/25/20 06:00 Temperature 36.2 C L Pulse Rate 77 80 88 Respiratory Rate 18 18 16 Blood Pressure 113/49 L Pulse Oximetry 93 03/25/20 09:28 03/25/20 09:35 03/25/20 14:00 Temperature 37.3 C Pulse Rate 88 81 94 Respiratory Rate 18 20 18 Blood Pressure 110/55 L Pulse Oximetry 91 98 Intake/Output Intake/Output: Intake & Output 03/22/20 03/23/20 03/24/20 03/25/20 23:59 23:59 23:59 23:59 Intake Total 1250 1250 1250 1100 Output Total 2050 1900 730 150 Balance -800 -650 520 950 Meds/Results Medications: Active Medications Generic Name Dose Route Start Last Admin Trade Name Freq PRN Reason Stop Dose Admin Albuterol 5 mg 03/16/20 20:00 03/25/20 16:09 Albu
[2020-03-26] VITALS (9 sets, daily range): BP systolic 105–135; BP diastolic 44–99; PULSE 75–88; RESP 16–18; TEMP 36.4–36.7; O2SAT 90–98
[2020-03-26 01:34] LABS: Glucose Point of Care 175 (65-105)
[2020-03-26] MEDS: ALBUTEROL SULFATE NEB 2.5 MG/0.5 ML INH 5 MG INHALATION ×2 (02:09→07:57)
[2020-03-26] MEDS: IPRATROPIUM BR 0.02% INH SOLN 0.5 MG/2.5 ML VIAL INHALATION ×2 (02:10→07:57)
[2020-03-26] MEDS: LANSOPRAZOLE ORAL SUSP 30 MG/10 ML ORAL.SUSP FEED TUBE (05:01)
[2020-03-26] MEDS: SODIUM CHLORIDE 0.9% IV 1,000 ML 50 ML IV CONT (05:02)
[2020-03-26 05:12] LABS: Glucose Point of Care 174 (65-105)
[2020-03-26 06:37] LABS: Anion Gap 5 mmol/L (8-16); Blood Urea Nitrogen 6 mg/dL (7-17); Calcium 8.3 mg/dL (8.4-10.2); Carbon Dioxide 26 mmol/L (22-30); Chloride 111 mmol/L (98-107); Estimated CRCL calculation 71 ml/min; Estimated Glomerular Filt Rate > 60; Glucose 176 mg/dL (65-105); Potassium 3.6 mmol/L (3.4-5.0); Sodium 142 mmol/L (137-145)
[2020-03-26] MEDS: DORNASE ALFA INH SOLN 1 MG/ML 2.5 ML AMP 2.5 MG INHALATION (07:57)
[2020-03-26 08:31] LABS: Glucose Point of Care 168 (65-105)
[2020-03-26] MEDS: MIDODRINE HCL 10 MG TABLET FEED TUBE ×3 (09:08→16:04)
[2020-03-26] MEDS: ENOXAPARIN 40 MG/0.4 ML SYRINGE SUB-Q (09:09)
[2020-03-26] MEDS: FAMOTIDINE 20 MG TABLET 40 MG FEED TUBE (09:09)
[2020-03-26] MEDS: FUROSEMIDE 20 MG TABLET FEED TUBE (09:09)
[2020-03-26] MEDS: METOCLOPRAMIDE HCL 10 MG/10 ML SOLN UDC FEED TUBE ×4 (09:09→23:43)
[2020-03-26] MEDS: INSULIN DETEMIR 100 UNITS/ML 7 UNITS SUB-Q (10:31)
[2020-03-26 13:49] LABS: Glucose Point of Care 178 (65-105)
--- NOTE | 2020-03-26 15:19 | PM.IMPN ---
Progress Note: A&P Assessment and Plan (1) Sepsis: Qualifiers: Acute respiratory failure type: with hypoxia Sepsis acute organ dysfunction status: with acute organ dysfunction Sepsis type: sepsis due to unspecified organism Severe sepsis acute organ dysfunction type: acute respiratory failure Severe sepsis shock status: without septic shock Qualified Code(s): A41.9 - Sepsis, unspecified organism; R65.20 - Severe sepsis without septic shock; J96.01 - Acute respiratory failure with hypoxia Code(s): A41.9 - Sepsis, unspecified organism Status: Acute Assessment and Plan: Sepsis criteria are met on admission with fever, tachycardia, tachypnea, leukocytosis, and elevated lactic acid level. Sepsis from UTI and aspiration PNA. Repeat lactic acid level improved. CT of the chest showing dependent airspace disease of the right upper and bilateral lower lobes in a pattern consistent with aspiration pneumonia. Blood cultures returned with 1of2 growing Coag Negative Staph. UCx growing EColi as mentioned below. Continued Rocephin and Flagyl. Vanco started 03/17 for +BCx but felt this is a contaminate so this was stopped 03/19. BCx repeated and NG. D#10 IV antibiotics 03/25/20 and d/jing (2) Aspiration pneumonia: Qualifiers: Aspiration pneumonia type: unspecified Laterality: bilateral Lung location: lower lobe of lung Qualified Code(s): J69.0 - Pneumonitis due to inhalation of food and vomit Code(s): J69.0 - Pneumonitis due to inhalation of food and vomit Status: Acute Assessment and Plan: CT Chest concerning for aspiration PNA. Continue aspiration precautions. Tube feeds resumed but had recurrrence of SOB and worsening hypoxia. TF stopped again. Apparently she had been on metoclopramide at 1 point in time and it is still on her home med list. This has already been resumed and she seems to be tolerating it well. Continued Rocephin and Flagyl. (D#10 IV antibiotics) Minimize meds through G-Tube. Continue phenergan for nausea; stopped Zofran since can prolong QT and already on Reglan . xray of G tube today 03/23 and tolerating continuous feeds again at low rate with no residual and increased to 45ml (about 1600 ileana/day). (3) Acute respiratory failure with hypoxia: Code(s): J96.01 - Acute respiratory failure with hypoxia Status: Acute Assessment and Plan: Patient was on 7L HFNC but able to be weaned to RA. Intermittant cough with hypoxia Continue pulmozyme, Albuterol and Atrovent. May need J-tube to prevent recurrent aspirations but trial of continuous feeds again and doing well. She is full code. 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 The patient's blood glucose was reviewed on 03/26/20 Glucose good control. Continue AccuCheks covering with sliding scale. Hypoglycemia protocol available as needed. Levemir restarted at low dose 7U with continuous feeds and BS consistanly above 150 (5) Gastroesophageal reflux disease: Code(s): K21.9 - Gastro-esophageal reflux disease without esophagitis Status: Inactive Assessment and Plan: Stable. Continue Pepcid and Prevacid. Continue to have HOB elevated. (6) Elevated LFTs: Code(s): R79.89 - Other specified abnormal findings of blood chemistry Status: Acute Assessment and Plan: AST and ALT mildly elevated and this has been noted in the past. CT scan showing a 2.6 cm liver cyst right hepatic lobe but otherwise no acute issues. Monitor periodically. (7) DVT prophylaxis: Code(s): Z29.9 - Encounter for prophylactic measures, unspecified Status: Acute Assessment and Plan: Lovenox. (8) UTI (urinary tract infection): Code(s): N39.0 - Urinary tract
[2020-03-26] MEDS: POTASSIUM PHOS,M-BASIC-D-BASIC 20 MMOL in SODIUM CHLORIDE 0.9% IV 250 ML 64 MMOL IVPB (16:04)
--- NOTE | 2020-03-26 17:25 | PM.PNPUL ---
Progress Note: A&P Assessment and Plan (1) Aspiration pneumonia: Qualifiers: Aspiration pneumonia type: unspecified Laterality: bilateral Lung location: lower lobe of lung Qualified Code(s): J69.0 - Pneumonitis due to inhalation of food and vomit Code(s): J69.0 - Pneumonitis due to inhalation of food and vomit Status: Acute Assessment and Plan: She had COVID Jan 20, acute respiratory failure Jan 27 - Feb 24 after G-tube placed; Readmitted Mar 16 with altered mentation, recurrent respiratory failure due to recurrent aspiration; she has a G-tube, and the position has been confirmed to be in the correct location Mar 23. She is more alert and on room air. No changes recommended at this point. Subjective Date/time seen: 03/26/20 17:25 This 75 year old female is seen in follow up for aspiration with secondary pneumonia and hypoxemia. She is on room air with saturation 98%. She is able to tell me that she is in a hospital, denies having pain, says that she is not short of breath. She is sitting in a chair, remains weak. She is able to speak, and is able to exhale with lips around the Cornet valve on the lowest setting. She is weak, and may not be able to tolerate a repeat swallow tomorrow. Her family wants her to be able to eat when she wants to. Last Chest CT 03/16 - infiltrate in the RUL and bilateral lower lobes c/w aspiration Last CXR 03/19: coarse interstitial infiltrates diffusely in the right lung and left lower lung zone. Ddx: pneumonia, atelectasis and/or chronic fibrosis. Prior history: Jan 20- COVID (+) at [facility] Jan 27 - Feb 24 ; admission with altered mental status, intubated in ER @ [place]; hypernatremia, acute renal failure BUN/creat 53/1.7, increased transaminases, septic shock, acute respiratory failure, and encephalopathy attributed to COVID pneumonia. * Feb 23 - PEG placed by Dr Kaplan Dec 24 - readmitted with worsening mental status, sepsis, acute hypoxemic respiratory failure with aspiration pneumonia; has been weaned to room air from 7 L Review of Systems Review of Systems: All systems reviewed & are unremarkable except as noted in HPI and below Exam Narrative: Exam Narrative: Alert, frail 75 year old female, not in distress; chronically deconditioned. She is on room air. Const: General: no acute distress Eyes: General: appearance normal, both eyes and all related structures Resp: Auscultation: diminished lung sounds Other: She is weak, not able to lean forward to allow a full exam of the posterior lung adrian Cardio: Rate: regular rate Rhythm: regular rhythm Heart sounds: S1 normal heart sound present, S2 normal heart sound present, no gallops and no murmurs Skin: General skin exam: normal color Neuro: Speech: normal speech (weak speech, words are clear) Extrem: General: edema (trace edema in her fingers) bilateral Psych: Other: not much energy Objective Data Vital Signs Vital Signs: Vital Signs - 24 hr 03/25/20 20:03 03/25/20 22:00 03/26/20 02:10 Temperature 36.1 C L Pulse Rate 80 103 H 88 Respiratory Rate 20 18 18 Blood Pressure 103/47 L Pulse Oximetry 92 03/26/20 06:00 03/26/20 07:58 03/26/20 08:00 Temperature 36.4 C L Pulse Rate 84 85 Respiratory Rate 18 18 Blood Pressure 135/99 H Pulse Oximetry 98 91 03/26/20 09:05 03/26/20 14:00 Temperature 36.7 C Pulse Rate 80 Respiratory Rate 16 Blood Pressure 111/44 L Pulse Oximetry 91 92 Intake/Output Intake/Output: Intake & Output 03/23/20 03/24/20 03/25/20 03/26/20 23:59 23:59 23:59 23:59 Intake Total 1250 1250 2460 1000 Output Total 1900 730 800 250 Balance -892 047 3414 750 Meds/Results Medications: Active Medications Generic Name Dose Route Start Last Admin Trade Name Freq PRN Reason Stop Dose Admin Albuterol 5 mg 03/16/20 20:00 03/26/20 13:40 Albuterol Sulfate Neb
[2020-03-26 18:14] LABS: Glucose Point of Care 131 (65-105)
[2020-03-27] VITALS (11 sets, daily range): BP systolic 102–119; BP diastolic 52–62; PULSE 61–89; RESP 18–22; TEMP 36–36.4; O2SAT 91–94
[2020-03-27 00:10] LABS: Glucose Point of Care 153 (65-105)
[2020-03-27] MEDS: ALBUTEROL SULFATE NEB 2.5 MG/0.5 ML INH 5 MG INHALATION ×3 (01:25→14:31)
[2020-03-27] MEDS: IPRATROPIUM BR 0.02% INH SOLN 0.5 MG/2.5 ML VIAL INHALATION ×3 (01:25→14:31)
[2020-03-27] MEDS: SODIUM CHLORIDE 0.9% IV 1,000 ML 50 ML IV CONT (05:09)
[2020-03-27] MEDS: LANSOPRAZOLE ORAL SUSP 30 MG/10 ML ORAL.SUSP FEED TUBE (05:10)
[2020-03-27] MEDS: MIDODRINE HCL 10 MG TABLET FEED TUBE ×3 (10:44→17:46)
[2020-03-27] MEDS: FAMOTIDINE 20 MG TABLET 40 MG FEED TUBE (10:44)
[2020-03-27] MEDS: ENOXAPARIN 40 MG/0.4 ML SYRINGE SUB-Q (10:44)
[2020-03-27] MEDS: FUROSEMIDE 20 MG TABLET FEED TUBE (10:44)
[2020-03-27] MEDS: METOCLOPRAMIDE HCL 10 MG/10 ML SOLN UDC FEED TUBE ×4 (10:45→20:46)
[2020-03-27] MEDS: DORNASE ALFA INH SOLN 1 MG/ML 2.5 ML AMP 2.5 MG INHALATION (10:46)
--- NOTE | 2020-03-27 10:48 | PM.PNPUL ---
Progress Note: A&P Assessment and Plan (1) Aspiration pneumonia: Qualifiers: Aspiration pneumonia type: unspecified Laterality: bilateral Lung location: lower lobe of lung Qualified Code(s): J69.0 - Pneumonitis due to inhalation of food and vomit Code(s): J69.0 - Pneumonitis due to inhalation of food and vomit Status: Acute Assessment and Plan: She had COVID Dec 30, acute respiratory failure Jan 6 - Feb 24 after G-tube placed; Readmitted Mar 16 with altered mentation, recurrent respiratory failure due to recurrent aspiration; she has a G-tube, and the position has been confirmed to be in the correct location Mar 23. Tolerating TF now. She is more alert and on room air and off antibiotics. Spoke with hospitalist and will reassess swallow as more alert. Will sign off, please call for any additional questions. Subjective Date/time seen: 03/27/20 10:48 Interval history: Date of service 03/27/20 75yo female with significant cognitive dysfunction and dysphagia requiring G-Tube here for nausea and vomiting with probable aspiration PNA. Patient now on room air with saturations 92%. No distress and tolerating TF at 45 ml/hr. Off antibiotics now. Denies any pain or SOB. Spells name, states Mar 2019, does not know place. Review of Systems Review of Systems: All systems reviewed & are unremarkable except as noted in HPI and below Exam Narrative: Exam Narrative: Alert, frail 75 year old female, not in distress; chronically deconditioned. She is on room air. Const: General: no acute distress Eyes: General: appearance normal, both eyes and all related structures Resp: Auscultation: diminished lung sounds Cardio: Rate: regular rate Rhythm: regular rhythm Heart sounds: S1 normal heart sound present, S2 normal heart sound present, no gallops and no murmurs Skin: General skin exam: normal color Neuro: Speech: normal speech (weak speech, words are clear) Extrem: General: edema (trace edema in her fingers) bilateral Psych: Other: not much energy Objective Data Vital Signs Vital Signs: Vital Signs - 24 hr 03/26/20 14:00 03/26/20 19:52 03/26/20 20:00 Temperature 36.7 C Pulse Rate 80 75 Respiratory Rate 16 Blood Pressure 111/44 L Pulse Oximetry 92 90 91 03/26/20 22:00 03/27/20 01:28 03/27/20 01:33 Temperature 36.4 C Pulse Rate 80 77 78 Respiratory Rate 18 22 H 22 H Blood Pressure 105/46 L Pulse Oximetry 90 93 03/27/20 06:00 03/27/20 08:38 03/27/20 08:53 Temperature 36.4 C L Pulse Rate 89 89 89 Respiratory Rate 20 18 20 Blood Pressure 102/61 Pulse Oximetry 94 91 Intake/Output Intake/Output: Intake & Output 03/24/20 03/25/20 03/26/20 03/27/20 23:59 23:59 23:59 23:59 Intake Total 1250 2460 1000 1257 Output Total 704 199 6865 350 Balance 520 1660 -250 907 Meds/Results Medications: Active Medications Generic Name Dose Route Start Last Admin Trade Name Freq PRN Reason Stop Dose Admin Albuterol 5 mg 03/16/20 20:00 03/27/20 08:30 Albuterol Sulfate Neb 2.5 Mg/0.5 Ml Inh INHALATION 5 mg Q6HRT BRYCE Administration Albuterol 2.5 mg 03/16/20 23:26 Albuterol Sulfate Neb 2.5 Mg/0.5 Ml Inh INHALATION Q4HRT PRN Shortness Of Breath Ascorbic Acid 500 mg 03/17/20 09:00 03/20/20 09:14 Ascorbic Acid 500 Mg Tablet FEED TUBE 500 mg DAILY BRYCE Administration Dextrose 12.5 gm 03/17/20 00:12 Dextrose 50% 25 Gm/50 Ml Syringe IV PUSH PRN PRN Hypoglycemia Protocol Dornase Miguel 2.5 mg 03/17/20 20:00 03/26/20 19:56 Dornase Miguel Inh Soln 1 Mg/Ml 2.5 Ml Amp INHALATION Not Given Q12HRT BRYCE Enoxaparin Sodium 40 mg 03/19/20 09:00 03/26/20 09:09 Enoxaparin 40 Mg/0.4 Ml Syringe SUB-Q 40 mg DAILY BRYCE Administration Ergocalciferol 50,000 unit 03/24/20 09:00 Ergocalciferol 50,000 Unit Capsule FEED TUBE Fr@0900 [facility] Fam
[2020-03-27] MEDS: POTASSIUM CHLORIDE 20 MEQ PACKET (FOR LIQUID) 40 MEQ FEED TUBE (11:04)
--- NOTE | 2020-03-27 11:30 | PCDIET ---
Addendum entered by Justine Bonilla RD, LDN 03/27/20 13:22: Spoke with Dr. Ko. [place] does not have 2 MEHDI HN tube feedings . Plans to leave tube feedings as ordered. Following every Friday and Friday. Original Note: Nutrition consult for tube feeding modification. Tube feeding recommendations: 2 MEHDI HN at 35 ml/hr which will provide patient with 1540 kcals/64 gms protein/560 ml water. Water flush increased to 100 ml q 4 hours. Will continue to monitor every Friday and Friday.
[2020-03-27 12:34] LABS: Glucose Point of Care 209 (65-105)
[2020-03-27] MEDS: INSULIN ASPART (*BKC) 100 UNITS/ML SUB-Q ×2 (12:49→18:10)
--- NOTE | 2020-03-27 12:53 | PM.PNGS ---
Progress Note: A&P Assessment and Plan (1) Aspiration pneumonia: Qualifiers: Aspiration pneumonia type: unspecified Laterality: bilateral Lung location: lower lobe of lung Qualified Code(s): J69.0 - Pneumonitis due to inhalation of food and vomit Code(s): J69.0 - Pneumonitis due to inhalation of food and vomit Status: Acute Assessment and Plan: Pneumonia continues to improve. G-tube contrast study showed G-tube in appropriate location with normal passage of contrast into the duodenum. Patient is tolerated continuous tube feedings through the G-tube over the weekend. We would recommend doing continuous tube feedings through the G-tube for nutrition, which she seems to tolerate better than bolus feedings. This will also avoid putting the patient through an unnecessary surgery. We will sign off at this point. Please let us know if there are any surgical needs in the future. (2) PEG (percutaneous endoscopic gastrostomy) status: Code(s): Z93.1 - Gastrostomy status Status: Chronic Assessment and Plan: Contrast study showed good position of the G-tube. See plan above. 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 predatory animal exterminator use Diabetes mellitus complication status: with hyperglycemia Qualified Code(s): E11.65 - Type 2 diabetes mellitus with hyperglycemia; Z79.4 - assisted (current) use of insulin Code(s): E11.9 - Type 2 diabetes mellitus without complications Status: Chronic (4) Brain tumor: Code(s): D49.6 - Neoplasm of unspecified behavior of brain Status: Chronic (5) Altered mental status: Qualifiers: Altered mental status type: unspecified Qualified Code(s): R41.82 - Altered mental status, unspecified Code(s): R41.82 - Altered mental status, unspecified Status: Chronic Additional Plan Discussed the plan of care with Dr. Young. Subjective Subjective Date/Time Seen: 03/27/20 12:00 Patient reports: no new complaints Interval history: Patient seen this morning and again alert and able to answer some of my questions. She denies any pain, nausea or vomiting. Per the nurse, she has been tolerating her tube feedings. She is planned to have a swallow evaluation today. Review of Systems Review of Systems: ROS unobtainable: Yes other (limited due to encephalopathy) Exam Const: General: comfortable, alert and awake Orientation/consciousness: oriented to person, No oriented to place and oriented to time GI: Inspection: normal to inspection, non-distended and other (LUQ G-tube) GI Palp: Yes Soft to palpation and No Tenderness to palpation present (GI) Auscultation: normal bowel sounds Urinary Catheter: Urinary Catheter: patent and draining and urine clear Skin: General skin exam: normal color Neuro: General: moves all extremities and no focal motor deficits Extrem: General: no clubbing, cyanosis or edema Psych: Appearance: grossly normal Attitude: cooperative Insight: Fair insight present (Psych) and Limited insight present (Psych) Judgement: Fair judgement present (Psych) and Limited judgement present (Psych) Objective Data Vital Signs Vital Signs: Vital Signs - 24 hr 03/26/20 14:00 03/26/20 19:52 03/26/20 20:00 Temperature 98.1 F Pulse Rate 80 75 Respiratory Rate 16 Blood Pressure 111/44 L Pulse Oximetry 92 90 91 03/26/20 22:00 03/27/20 01:28 03/27/20 01:33 Temperature 97.6 F Pulse Rate 80 77 78 Respiratory Rate 18 22 H 22 H Blood Pressure 105/46 L Pulse Oximetry 90 93 03/27/20 06:00 03/27/20 08:00 03/27/20 08:38 Temperature 97.5 F L Pulse Rate 89 89 89 Respiratory Rate 20 20 18 Blood Pressure 102/61 Pulse Oximetry 94 91 91 03/27/20 08:53 Temperature Pulse Rate 89 Respiratory Rate 20 Blood Pressure Pulse Oximetry Intake/Output Intake/Output: Intake & Output 03/24/20 03/25/20 03/26/20 03/27/20 23:59 23:59
[2020-03-27 13:14] LABS: Albumin Level 3.8 g/dL (3.5-5.1); Anion Gap 7 mmol/L (8-16); Blood Urea Nitrogen 8 mg/dL (7-17); Calcium 8.9 mg/dL (8.4-10.2); Carbon Dioxide 27 mmol/L (22-30); Chloride 107 mmol/L (98-107); Estimated CRCL calculation 71 ml/min; Estimated Glomerular Filt Rate > 60; Glucose 214 mg/dL (65-105); Phosphorus 2.6 mg/dL (2.5-4.5); Potassium 4.9 mmol/L (3.4-5.0); Sodium 141 mmol/L (137-145)
--- NOTE | 2020-03-27 15:11 | PM.IMPN ---
Progress Note: A&P Assessment and Plan (1) Sepsis: Qualifiers: Acute respiratory failure type: with hypoxia Sepsis acute organ dysfunction status: with acute organ dysfunction Sepsis type: sepsis due to unspecified organism Severe sepsis acute organ dysfunction type: acute respiratory failure Severe sepsis shock status: without septic shock Qualified Code(s): A41.9 - Sepsis, unspecified organism; R65.20 - Severe sepsis without septic shock; J96.01 - Acute respiratory failure with hypoxia Code(s): A41.9 - Sepsis, unspecified organism Status: Acute Assessment and Plan: Sepsis criteria are met on admission with fever, tachycardia, tachypnea, leukocytosis, and elevated lactic acid level. Sepsis from UTI and aspiration PNA. Repeat lactic acid level improved. CT of the chest showing dependent airspace disease of the right upper and bilateral lower lobes in a pattern consistent with aspiration pneumonia. Blood cultures returned with 1of2 growing Coag Negative Staph. UCx growing EColi as mentioned below. Continued Rocephin and Flagyl. Vanco started 03/17 for +BCx but felt this is a contaminate so this was stopped 03/19. BCx repeated and NG. D#10 IV antibiotics 03/25/20 and d/jing (2) Aspiration pneumonia: Qualifiers: Aspiration pneumonia type: unspecified Laterality: bilateral Lung location: lower lobe of lung Qualified Code(s): J69.0 - Pneumonitis due to inhalation of food and vomit Code(s): J69.0 - Pneumonitis due to inhalation of food and vomit Status: Acute Assessment and Plan: CT Chest concerning for aspiration PNA. Continue aspiration precautions. Tube feeds resumed but had recurrrence of SOB and worsening hypoxia. . Apparently she had been on metoclopramide at 1 point in time and it is still on her home med list. This has already been resumed and she seems to be tolerating it well. Continued Rocephin and Flagyl. (D#10 IV antibiotics) Minimize meds through G-Tube. Continue phenergan for nausea; stopped Zofran since can prolong QT and already on Reglan . xray of G tube today 03/23 and tolerating continuous feeds again at low rate with no residual and increased to 45ml (about 1600 ileana/day 03/27.). Repeat chest x-ray today 03/27 similar to previous film but some perihilar fluffiness possible fluid. Since has been on extra IV fluid this was discontinued and 1 extra dose of Lasix given. Lungs are clear still satting well on room air (3) Acute respiratory failure with hypoxia: Code(s): J96.01 - Acute respiratory failure with hypoxia Status: Acute Assessment and Plan: Patient was on 7L HFNC but able to be weaned to RA. Intermittant cough with hypoxia Continue pulmozyme, Albuterol and Atrovent. trial of continuous feeds again and doing well , no J tube needed. She is full code. (4) Insulin dependent type 2 diabetes mellitus: Code(s): E11.9 - Type 2 diabetes mellitus without complications; Z79.4 - retirement (current) use of insulin Status: Inactive Assessment and Plan: A1c 7.5. The patient's blood glucose was reviewed on 03/27/20 Glucose good control. Continue AccuCheks covering with sliding scale. Hypoglycemia protocol available as needed. Levemir restarted at low dose 10U with continuous feeds and BS consistanly above 150 (5) Gastroesophageal reflux disease: Code(s): K21.9 - Gastro-esophageal reflux disease without esophagitis Status: Inactive Assessment and Plan: Stable. Continue Pepcid and Prevacid and reglan . Continue to have HOB elevated. (6) Elevated LFTs: Code(s): R79.89 - Other specified abnormal findings of blood chemistry Status: Acute Assessment and Plan: AST and ALT mildly elevated and this has been noted in the past. CT scan showing a 2.6 cm liver cyst right hepatic lobe but otherwise no acute issues. Monitor periodically. (7) DVT prophylaxis: Code(s
[2020-03-27 17:47] LABS: Glucose Point of Care 206 (65-105)
[2020-03-27] MEDS: FUROSEMIDE INJ 40 MG/4 ML VIAL 20 MG IV PUSH (17:49)
[2020-03-28] VITALS (15 sets, daily range): BP systolic 101–117; BP diastolic 46–89; PULSE 84–104; RESP 16–24; TEMP 36.1–36.3; O2SAT 86–97
[2020-03-28 01:29] LABS: Glucose Point of Care 179 (65-105)
--- NOTE | 2020-03-28 03:12 | PCRCNOTE ---
Window of time for administration has passed. See next scheduled administration.
[2020-03-28] MEDS: IPRATROPIUM BR 0.02% INH SOLN 0.5 MG/2.5 ML VIAL INHALATION ×4 (03:13→20:25)
[2020-03-28] MEDS: ALBUTEROL SULFATE NEB 2.5 MG/0.5 ML INH 5 MG INHALATION ×4 (03:13→20:25)
[2020-03-28] MEDS: LANSOPRAZOLE ORAL SUSP 30 MG/10 ML ORAL.SUSP FEED TUBE (06:48)
[2020-03-28] MEDS: INSULIN ASPART (*BKC) 100 UNITS/ML SUB-Q ×2 (06:52→18:35)
[2020-03-28 07:02] LABS: Anion Gap 7 mmol/L (8-16); Blood Urea Nitrogen 11 mg/dL (7-17); Carbon Dioxide 30 mmol/L (22-30); Chloride 104 mmol/L (98-107); Estimated CRCL calculation 71 ml/min; Estimated Glomerular Filt Rate > 60; Glucose 262 mg/dL (65-105); Potassium 4.2 mmol/L (3.4-5.0); Sodium 141 mmol/L (137-145)
[2020-03-28 07:12] LABS: Glucose Point of Care 258 (65-105)
[2020-03-28] MEDS: ENOXAPARIN 40 MG/0.4 ML SYRINGE SUB-Q (10:38)
[2020-03-28] MEDS: MIDODRINE HCL 10 MG TABLET FEED TUBE ×3 (10:38→18:31)
[2020-03-28] MEDS: FAMOTIDINE 20 MG TABLET 40 MG FEED TUBE (10:38)
[2020-03-28] MEDS: FUROSEMIDE 20 MG TABLET FEED TUBE (10:39)
[2020-03-28] MEDS: METOCLOPRAMIDE HCL 10 MG/10 ML SOLN UDC FEED TUBE ×4 (10:40→21:47)
[2020-03-28] MEDS: INSULIN DETEMIR 100 UNITS/ML 10 UNITS SUB-Q (10:40)
--- NOTE | 2020-03-28 12:28 | PCNFU ---
Addendum entered by Justine Bonilla RD, LDN 03/28/20 12:32: Bowel Mobility: Last reported BM 03/23/20. Original Note: Nutrition Follow-Up Complete: Inadequate infusion of enteral nutrition related tube feeding rate as evidenced by current tube feeding providing 1056kcal over 22 hours/day versus estimated needs of 1350+kcal per day. Goal: Patient to meet estimated nutritional needs. Patient has met current goal. No new goal. Pt current nutrition is Jevity 1.5 at 45ml/hr. Nutrition recommendation: Agree with current diet orders. Last recorded weight is 63 kg, no new weight. Bowel Motility: Last reported BM 03/23/21 Labs Reviewed:Cr 0.5, Glu 262 Meds Noted:NovoLog,Levemir, Lasix, Pepcid, Reglan. Additional Notes: Nutrition follow up. Patient is tolerating current tube feeding of Jevity 1.5 at 45 ml/hr which is providing 1485 kcals/49 gms protein. Monitoring: Follow up every Friday/Friday.
--- NOTE | 2020-03-28 13:48 | PM.DS ---
DS: Admitting Diagnosis Admitting Diagnosis Admitting Diagnosis: (1) Sepsis: Qualifiers: Acute respiratory failure type: with hypoxia Sepsis acute organ dysfunction status: with acute organ dysfunction Sepsis type: sepsis due to unspecified organism Severe sepsis acute organ dysfunction type: acute respiratory failure Severe sepsis shock status: without septic shock Qualified Code(s): A41.9 - Sepsis, unspecified organism; R65.20 - Severe sepsis without septic shock; J96.01 - Acute respiratory failure with hypoxia Code(s): A41.9 - Sepsis, unspecified organism Status: Acute (2) Aspiration pneumonia: Qualifiers: Aspiration pneumonia type: unspecified Laterality: bilateral Lung location: lower lobe of lung Qualified Code(s): J69.0 - Pneumonitis due to inhalation of food and vomit Code(s): J69.0 - Pneumonitis due to inhalation of food and vomit Status: Acute (3) Acute respiratory failure with hypoxia: Code(s): J96.01 - Acute respiratory failure with hypoxia Status: Acute (4) Insulin dependent type 2 diabetes mellitus: Code(s): E11.9 - Type 2 diabetes mellitus without complications; Z79.4 - intermodal customer service (current) use of insulin Status: Inactive (5) Gastroesophageal reflux disease: Code(s): K21.9 - Gastro-esophageal reflux disease without esophagitis Status: Inactive (6) Elevated LFTs: Code(s): R79.89 - Other specified abnormal findings of blood chemistry Status: Acute Additional Plan The patient was admitted to the hospitalist service for further treatment of aspiration pneumonia. Sepsis criteria are met on admission with fever, tachycardia, tachypnea, leukocytosis, and elevated lactic acid level. Repeat lactic acid level has improved somewhat. Lactic acid level was improving she started on maintenance fluids. Blood cultures were obtained ,sputum for culture as well. She has been started on Unasyn for aspiration pneumonia. Aspiration precautions will be initiated. At this time I will hold her tube feeds and resume them tomorrow, with monitoring of residuals. Apparently she had been on metoclopramide but did not do well with that for unclear reasons, although we may need to try that if she continues to have issues with aspiration and/or high residuals. Her LFTs were mildly elevated although this was noted during her most recent hospitalization. Blood pressure is stable on midodrine.Continued with her basal insulin and initiate sliding scale insulin, Accu-Cheks, and hypoglycemic protocol. Check hemoglobin A1c. 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 An MRI done during her recent stay did not demonstrate any acute findings. DS: Discharge Diagnosis Discharge Diagnosis (1) Gastroesophageal reflux disease: Code(s): K21.9 - Gastro-esophageal reflux disease without esophagitis Status: Acute (2) Insulin dependent type 2 diabetes mellitus: Code(s): E11.9 - Type 2 diabetes mellitus without complications; Z79.4 - [facility] (current) use of insulin Status: Acute (3) Elevated LFTs: Code(s): R79.89 - Other specified abnormal findings of blood chemistry Status: Acute (4) Acute respiratory failure with hypoxia: Code(s): J96.01 - Acute respiratory failure with hypoxia Status: Acute (5) Sepsis: Qualifiers: Acute respiratory failure type: with hypoxia Sepsis acute organ dysfunction status: with acute organ dysfunction Sepsis type: sepsis due to unspecified organism Severe sepsis acute organ dysfunction type: acute respiratory failure Severe sepsis shock status: without septic shock Qualified Code(s): A41.9 - Sepsis, unspecified organism; R65.20 - Severe sepsis without septic shock; J96.01 - Acute respiratory failure with hypoxia Cod
[2020-03-28 14:24] LABS: Glucose Point of Care 210 (65-105)
[2020-03-28 14:42] LABS: Glucose Point of Care 101 (65-105)
[2020-03-28 17:02] LABS: Add Urine Microscopic? YES; Appearance Urine Clear (Clear); Bacteria Urine Trace /hpf; Bilirubin Urine Negative (Negative); Color Urine Yellow (Yellow); Glucose Urine UA 1+ mg/dL (Negative); Ketones Urine Negative (Negative); Leukocyte Esterase Ur Trace LEU/UL (Negative); Mucus Urine Few /lpf; Nitrate Urine Negative (Negative); Protein Urine 1+ mg/dL (Negative); Specific Grav Ur 1.014 (1.001-1.035); Urobilinogen Urine Negative mg/dL (<2.0); WBC Urine 21-30 /hpf
[2020-03-28 17:18] LABS: Blood Urine Negative (Negative)
[2020-03-28 19:20] LABS: Glucose Point of Care 208 (65-105)
[2020-03-28] MEDS: CALCIUM/VITAMIN D 250 MG TABLET 2 TABLET PO (21:47)
[2020-03-30 23:26] LABS: Vitamin D 1,25 (OH)2 Total 82 pg/mL (18-72); Vitamin D2 1,25 (OH)2 <8 pg/mL; Vitamin D3 1,25 (OH)2 82 pg/mL
[2020-04-10 13:28] LABS: Vitamin D2 1,25 (OH)2 <8 pg/mL
== END 2020-03-29 01:35 | DRG 871 ==
LOC: ANHED 17:19 → ANHIMU 20:03 → ANH3MEDSUR 03-20 12:06 → ANHIMU 03-30 14:25
PROVIDERS: Internal Medicine; Physician Assistant; Admitting Provider Internal Medicine; Emergency Provider Emergency Medicine; PCP Internal Medicine; Visit Provider Internal Medicine
DX: A41.9 Sepsis, unspecified organism (principal); J69.0 Pneumonitis due to inhalation of food and vomit; J96.21 Acute and chronic respiratory failure with hypoxia; N39.0 Urinary tract infection, site not specified; R65.20 Severe sepsis without septic shock; B96.20 Unspecified Escherichia coli [E. coli] as the cause of diseases classified elsewhere; D50.0 Iron deficiency anemia secondary to blood loss (chronic); Z87.891 Personal history of nicotine dependence; Z93.1 Gastrostomy status; M62.838 Other muscle spasm
CPT/HCPCS: 36415; 36600; 49465; 51702; 71045; 71250; 72141; 74176; 80048; 80053; 80069; 80076; 81001; 82306; 82375; 82607; 82652; 82728; 82746; 82805; 83036; 83050; 83540; 83550; 83605; 83690; 83735; 83880; 84100; 85025; 85027; 85610; 85730; 86140; 87040; 87077; 87086; 87088; 87186; 92523; 92610; 93005; 94640; 94667; 94668; 96374; 97161; 97165; 99291; A9270; J0131; J0295; J0696; J1100; J1650; J1815; J1940; J3370; J3480; J7030; J7050; J7120

== ENCOUNTER 2020-05-04 12:18 | Inpatient (IN) | payer MEDICARE, MEDICAID, SELFPAY ==
[2020-05-04] VITALS (17 sets, daily range): BP systolic 115–135; BP diastolic 49–76; PULSE 70–98; RESP 18–33; TEMP 36.2–37.1; O2SAT 91–100
--- NOTE | ~2020-05-04 | CT_ITS ---
EXAMINATION: CT brain wo con INDICATION: Altered mental status COMPARISON: 02/11/2020; MRI, 02/22/2020 TECHNIQUE: Standard unenhanced head CT. The dose-length product (DLP) was 605.33 mGy-cm. The mA was a djusted according to patient size. Iterative reconstruction technique was employed. FINDINGS: Again noted are changes of right frontotemporal craniotomy with resection of a large portio n of the right frontal. There are dystrophic calcifications and a stable infiltrating mass of the rig ht frontal lobe, right insula, and anterior right temporal lobe. There is no acute intraparenchymal h emorrhage. No evidence of acute infarction. There is mild periventricular and subcortical hypodensity probably related to small vessel ischemic disease. There is mild prominence of the sulci and ventric les related to cerebral atrophy. Intracranial calcified cerebral atherosclerosis is noted. There are no extra-axial collections. There is no mass effect or midline shift. The orbits and soft tissues are unremarkable. The visualized sinuses and mastoid air cells are well aerated. IMPRESSION: 1. No acute intracranial abnormality. 2. Age related findings. 3. Stable findings of the right frontal lobe, right insula, and right anterior temporal lobe consiste nt with residual anaplastic oligodendroglioma. Reviewed, dictated and finalized at location A. FAT PULLER IMPRESSION: 1. No acute intracranial abnormality. 2. Age related findings. 3. Stable findings of the right frontal lobe, right insula, and right anterior temporal lobe consistent with residual anaplastic oligodendroglioma.
--- NOTE | ~2020-05-04 | XR_ITS ---
EXAMINATION: XR chest 1V portable EXAM DATE: 05/09/2020 16:35 INDICATION: Transient alteration of awareness. TECHNIQUE: Portable AP frontal chest x-ray was obtained. Comparison is made to prior examination from 05/04/2020. FINDINGS: Suspect some silhouetting of the left hemidiaphragm, probably from subsegmental atelectasis . The lungs are otherwise clear. There are no pleural effusions. The cardiomediastinal silhouette i s prominent but magnified on this AP technique. There is no pneumothorax suspected. The bones and s oft tissues are unremarkable. IMPRESSION: Left basilar opacity probably subsegmental atelectasis. Reviewed, dictated and finalized at location A. IAL EVENTS FUNDRAISER
--- NOTE | ~2020-05-04 | MR_ITS ---
EXAMINATION: MR brain/brain stem wo con EXAM DATE: 05/10/2020 17:15 INDICATION: Transient alteration of awareness. Altered mental status. Treated right frontal lobe anap lastic oligodendroglioma. TECHNIQUE: Magnetic resonance imaging (MRI) of the brain/brain stem obtained without contrast. Jose roth T1, axial diffusion, gradient echo (T2*), T1, T2, FLAIR sequences obtained. Comparison is made to prior examination from 02/22/2020. FINDINGS: Findings from prior right frontotemporal craniotomy with large region of underlying encepha lomalacia likely prior resection of patient's known oligodendroglioma. There is right temporal and bi frontal T2/FLAIR hyperintensity likely radiation related change. Difficult to appreciate the dystroph ic calcification is identified on CT, in right temporal lobe, treated or residual oligodendroglioma. No restricted diffusion to suggest acute infarction. Posterior fossa is unremarkable. No extra-axial collections. There is no significant interval change. IMPRESSION: 1. No acute findings or interval change. 2. Treated and/or residual right temporal oligodendroglioma. Other surgical, radiation related santos es. Reviewed, dictated and finalized at location A. NO RUNNER IMPRESSION: 1. No acute findings or interval change. 2. Treated and/or residual right temporal oligodendroglioma. Other surgical, r adiation related changes.
--- NOTE | ~2020-05-04 | XR_ITS ---
EXAMINATION: XR chest 2V DATE: 05/10/2020 17:16 INDICATION: Atelectasis. Possible pneumonia. TECHNIQUE: frontal and lateral views of the chest were obtained. COMPARISON: 05/09/2020 FINDINGS: Chronic mild pleural parenchymal scarring along the periphery of the right apex. Improved aeration al mahesh the left lung base. There is mild opacities in the dependent lower lung zones aspiration the late ral projection which could represent atelectasis, mild pulmonary edema or pneumonia. No pleural effus ion or pneumothorax. Heart size is normal. IMPRESSION: 1. Mild opacities in the posterior lower lung zones which could represent atelectasis, mild pulmonary edema or pneumonia. Reviewed, dictated and finalized at location A. NING PROCESSOR IMPRESSION: 1. Mild opacities in the posterior lower lung zones which could represent atele ctasis, mild pulmonary edema or pneumonia.
--- NOTE | ~2020-05-04 | XR_ITS ---
EXAMINATION: XR chest 1V 05/04/2020 13:14 INDICATION: Altered mental status PROCEDURE: AP view of the chest COMPARISON: Comparison to multiple prior studies sequentially, with oldest reviewed study dated 01/24. FINDINGS: The lungs are clear. The cardiomediastinal silhouette is within normal limits. There are no pleural effusions. There is no pneumothorax suspected. IMPRESSION: 1: NO ACUTE CARDIOPULMONARY DISEASE. Reviewed, dictated and finalized at location B. CE MACHINE TECHNICIAN
--- NOTE | 2020-05-04 12:20 | ECG_ITS ---
Measurements Intervals [place] Rate: 94 P: 82 MN: 145 QRS: -63 QRSD: 87 T: 89 QT: 344 QTc: 431 Interpretive Statements SINUS RHYTHM LOW QRS VOLTAGE IN LIMB LEADS LEFT ANTERIOR FASCICULAR BLOCK CONSIDER INFERIOR INFARCT, AGE INDETERMINATE BASELINE ARTIFACT- I, III, AVR, AVL, AVF ABNORMAL ECG Electronically Signed On 05-04-2020 12:34:57 NEGATIVE ASSEMBLER by Bryon Reyes D.O.
--- NOTE | 2020-05-04 12:38 | ED.AMS ---
HPI - Altered Mental Status General Chief Complaint: Altered Mental Status Stated Complaint: Altered Mental Status Time Seen by Provider: 05/04/20 12:35 Source: patient Mode of arrival: ambulatory Limitations: no limitations History of Present Illness HPI narrative: Patient is a 75-year-old female brought in due to altered mental status from the assisted, unknown onset. Patient has a history of chronic encephalopathy. MD complaint: altered mental status Related Data Home Medications Medication Instructions Recorded Confirmed Lactobacillus acidophilus 10 mg FEEDING TUBE BID 10/24/19 03/17/20 [Acidophilus] oxybutynin chloride 5 mg PO DAILY 10/24/19 03/16/20 omeprazole 20 mg FEEDING TUBE BID 01/28/20 03/16/20 Senna Plus 1 tab-cap PO BID PRN 03/16/20 03/16/20 ascorbic acid (vitamin C) [Vitamin 500 mg FEEDING TUBE DAILY 03/16/20 03/16/20 C] miconazole nitrate 1 applic TOPICAL BID 03/16/20 03/16/20 promethazine 25 mg MN Q6H PRN 03/16/20 03/16/20 Levemir FlexTouch U-100 Insuln 12 unit SUBCUT DAILY 03/17/20 03/17/20 cholecalciferol (vitamin D3) 1,250 mcg FEEDING TUBE WEEKLY 03/17/20 03/17/20 famotidine 40 mg FEEDING TUBE DAILY 03/17/20 03/17/20 furosemide 20 mg FEEDING TUBE DAILY 03/17/20 03/17/20 lactulose 20 g FEEDING TUBE DAILY 03/17/20 03/17/20 metoclopramide HCl 10 mg FEEDING TUBE QID 03/17/20 03/17/20 Allergies Allergy/AdvReac Type Severity Reaction Status Date / Time shellfish derived Allergy Unknown Hives Verified 05/04/20 12:54 codeine Allergy Unknown Verified 05/04/20 12:54 erythromycin base Allergy Unknown Verified 05/04/20 12:54 hydrocodone Allergy Unknown Verified 05/04/20 12:54 ibuprofen Allergy Unknown Verified 05/04/20 12:54 Iodinated Contrast Media Allergy Unknown Verified 05/04/20 12:54 meperidine Allergy Unknown Verified 05/04/20 12:54 mepivacaine [From Carbocaine] Allergy Unknown Verified 05/04/20 12:54 propoxycaine Allergy Unknown Verified 05/04/20 12:54 propoxyphene Allergy Unknown Verified 05/04/20 12:54 Sulfa (Sulfonamide Allergy Unknown Verified 05/04/20 12:54 Antibiotics) Review of Systems Review of Systems: ROS unobtainable: Yes unobtainable due to mental status PMFSH Past Medical History Medical History COVID-19 (~01/2020) Gastroesophageal reflux disease History of kidney stones History of urinary tract infection 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 Surgical History Surgical History History of craniotomy Right frontal lobe craniotomy with resection of oligodendroglioma. Family History Family History Mother Diabetes mellitus Father Lung cancer Sibling Breast cancer she has Social History Social History Social History: The patient is currently a resident at [facility]. She smoked for approximately 46 years and quit in October 2017. No mention of alcohol or illicit substance abuse. Her niece, Julia Phelps, is her healthcare power of commercial real estate attorney. The patient is a full code. Years smoked: 46 Smoking status: Former smoker Tobacco type: cigarettes Second hand tobacco smoke exposure: No Smoking end date: 10/22/17 Alcohol intake: unknown Substance use: unknown Substance use type: does not use Gender identity (if verbalized by the patient): Female Spiritual care concerns: No Exam Const: Other: Moderate distress, lethargic, nonverbal HENMT: Head: normal to inspection Ears: EAC's normal Mouth: Yes dry mucous membranes Eyes: Conjunctivae: conjunctivae normal Pupils: Equal, round and reactive pupils present Neck: Neck: normal visual inspection Chest: Chest palpation & inspection: nor
[2020-05-04 12:45] LABS: Hemoglobin 11.7 g/dL (12.0-15.0); Immature Platelet Fraction Pct 3.6 % (0.9-11.2); Mean Corpuscular HGB Conc 28.5 g/dl (32-36); Mean Corpuscular Hemoglobin 25.9 pg (26-34); Mean Corpuscular Volume 90.7 fl (80-100); Platelet Count Result 295 k/mm3 (150-375); Red Blood Count 4.52 M/mm3 (4.2-5.4); Red Cell Distribution Width 17.4 % (11.5-14.5); White Blood Count 11.7 K/mm3 (4.5-10.0)
[2020-05-04 12:54] LABS: Alanine Aminotransferase 71 U/L (4-35); Albumin Level 4.6 g/dL (3.5-5.1); Alkaline Phosphatase 77 U/L (38-126); Anion Gap 7 mmol/L (8-16); Aspartate Amino Transferase 89 U/L (14-36); Bilirubin,Total 0.3 mg/dL (0.2-1.3); Blood Urea Nitrogen 36 mg/dL (7-17); Calcium 10.4 mg/dL (8.4-10.2); Carbon Dioxide 35 mmol/L (22-30); Chloride 110 mmol/L (98-107); Estimated CRCL calculation 50 ml/min; Estimated Glomerular Filt Rate > 60; Glucose 252 mg/dL (65-105); Sodium 152 mmol/L (137-145)
[2020-05-04 12:56] LABS: Add Urine Microscopic? YES; Appearance Urine Sl Cloudy (Clear); Color Urine Yellow (Yellow); Protein Urine 2+ mg/dL (Negative)
[2020-05-04] MEDS: LACTATED RINGERS 1,000 ML 999 ML IV CONT (12:56)
[2020-05-04 12:57] LABS: Bilirubin Urine Negative (Negative); Blood Urine Trace-Intact (Negative); Glucose Urine UA Negative (Negative); Ketones Urine Negative (Negative); Nitrate Urine Positive (Negative)
[2020-05-04 12:58] LABS: Leukocyte Esterase Ur 3+ LEU/UL (Negative)
[2020-05-04 13:01] LABS: Band Neutrophils Percent 1 % (0-6); Eosinophils Absolute Manual 0.11 K/mm3 (0.02-0.5); Eosinophils Percent Manual 1 % (0-4); Lymphocytes Absolute Manual 3.39 K/mm3 (1.1-4.5); Monocytes Absolute Manual 1.52 K/mm3 (0.1-0.90); Monocytes Percent Manual 13 % (3-9); Neutrophils Absolute Manual 6.66 K/mm3 (1.7-7.2); Neutrophils Percent Manual 56 % (46-73); Platelet Estimate Adequate (Adequate); Total Cells Counted 100
[2020-05-04 13:02] LABS: Anisocytosis 1+ (NORMAL); Atypical Lymphocytes Present; Stomatocytes 2+ (NORMAL)
[2020-05-04 13:08] LABS: Lactic Acid Reflex 1.9 mmol/L (0.7-2.1)
--- NOTE | 2020-05-04 13:10 | PC.NURSE ---
pt in ct at this time.
[2020-05-04] MEDS: LACTATED RINGERS 1,000 ML 90 ML IV CONT (14:05)
--- NOTE | 2020-05-04 15:24 | PC.NURSE ---
Spoke with MAC over the phone - explained results to her and gave her the phone number for the 2nd floor to get updates on pt
--- NOTE | 2020-05-04 16:24 | ADMGEN ---
This patient, Linette Vásquez, was admitted to Medical Room 247-. Patient/family oriented to hospital policies and general routines including ID bracelet, bed and alarms, visiting hours, pain management, procedures, bathroom and other care routines, personal items, smoking policy, room service/diet, and visiting hours. Information on how to activate the Rapid Response Team has been discussed. Patient/Family are encouraged to report perceived risks to care and to ask questions if they do not understand what they are told or what they should do.
[2020-05-04 20:26] LABS: Glucose Point of Care 145 (65-105)
[2020-05-04 23:11] LABS: Anion Gap 6 mmol/L (8-16); Blood Urea Nitrogen 28 mg/dL (7-17); Calcium 9.2 mg/dL (8.4-10.2); Carbon Dioxide 35 mmol/L (22-30); Chloride 112 mmol/L (98-107); Estimated CRCL calculation 58 ml/min; Estimated Glomerular Filt Rate > 60; Glucose 150 mg/dL (65-105); Potassium 3.3 mmol/L (3.4-5.0); Sodium 153 mmol/L (137-145)
--- NOTE | 2020-05-04 23:26 | PM.IMHP ---
H&P: HPI History of Present Illness Date/Time: 05/04/20 23:26 Chief Complaint: Confusion Narrative: Linette Vásquez is a 75 year old female on 03/28/2020 with sepsis. She was treated for aspiration pneumonia at that time. She was re-evaluated and was placed back on her tube feeding and sent back to [facility]. The patient had COVID on January 20 and had acute respiratory failure January 27 through February 24. She was readmitted March 16 without altered mentation recurring respiratory failure due to recurrent aspiration. Her G-tube had been confirmed to be in the correct location. Therefore her tube feedings were restarted. The patient was brought to the emergency room today from the [facility] due to altered mental status. The patient does have a history of chronic encephalopathy. The patient has a chronic indwelling Hodge catheter and was found have a recurrent UTI. She has had E coli infections in her urine in the past. The patient was started on Rocephin today. Her blood sugar today was in the 200s and then 150. Liver enzymes are slightly elevated today. Sodium level was 152 and now 153. She had been on lactated Ringer's from the emergency room. Tube feedings are not infusing at this time. Chest x-ray was read as no acute cardiopulmonary disease. Head CT was reported as no acute intracranial abnormality. Age-related findings. Stable findings of the right frontal lobe, right insula and right anterior temporal lobe consistent with residual anaplastic oligodendroglioma. Date of service of 05/04/2020. Review of Systems Review of Systems: All systems reviewed & are unremarkable except as noted in HPI and below Constitutional: Constitutional: Reports as per HPI and Reports no additional constitutional complaints Eyes: Eyes: Reports as per HPI and Reports no additional eye complaints ENT: Reports system reviewed and no additional complaints, except as documented and Reports Normal hearing present Cardiovascular: Cardiovascular: Reports no additional cardiovascular complaints Respiratory: Respiratory: Reports no additional respiratory complaints and Reports no additional respiratory complaints Gastrointestinal: Gastrointestinal: Reports as per HPI and Reports no additional gastrointestinal complaints Musculoskeletal: Musculoskeletal: Reports no additional musculoskeletal complaints Integumentary/Breasts: Skin/Breast: Reports system reviewed and no additional complaints, except as docu and Reports as per HPI Neurologic: Reports system reviewed and no additional complaints, except as documented, Reports as per HPI and Reports Normal hearing present Psychiatric: Psychiatric: Reports no additional psychiatric complaints and Reports as per HPI Endocrine: Endocrine: Reports no additional endocrine complaints Hematologic/Lymphatic: Hematologic/Lymphatic: Reports no additional hematologic/lymphatic complaints Allergic/Immunologic: Allergic/Immunologic: Reports no additional allergic/immunologic complaints [facility] Past Medical History Medical History COVID-19 (~01/2020) Gastroesophageal reflux disease History of kidney stones History of urinary tract infection 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 Surgical History Surgical History History of craniotomy Right frontal lobe craniotomy with resection of oligodendroglioma. Family History Family History Mother Diabetes mellitus Father Lung cancer Sibling Breast cancer she has Social History Social History Social History: The patient is currently a resident at [facility]. She smoked for stephanie
[2020-05-04] MEDS: DEXTROSE 5%/0.45% SOD CHL 1,000 ML 75 ML IV CONT (23:50)
[2020-05-04] MEDS: POTASSIUM CHLORIDE 20 MEQ PACKET (FOR LIQUID) FEED TUBE (23:50)
[2020-05-05] VITALS (12 sets, daily range): BP systolic 107–131; BP diastolic 49–81; PULSE 72–85; RESP 16–24; TEMP 36.1–36.6; O2SAT 95–99; BMI 25.0
[2020-05-05 05:48] LABS: Basophils Percent Auto 0.5 % (0.2-1.2); Eosinophils Absolute Auto 0.4 K/mm3 (0-0.3); Hematocrit 36.5 % (37.0-47.0); Hemoglobin 10.4 g/dL (12.0-15.0); Immature Granulocyte Absolute 0.03 K/mm3 (0.00-0.031); Immature Granulocyte Percent A 0.4 % (0-0.5); Lymphocytes Absolute Auto 2.11 K/mm3 (0.9-3.2); Lymphocytes Percent Auto 27.1 % (18.3-44.2); Mean Corpuscular HGB Conc 28.5 g/dl (32-36); Mean Corpuscular Hemoglobin 26.1 pg (26-34); Mean Corpuscular Volume 91.5 fl (80-100); Mean Platelet Volume 10.3 fl (7.4-10.4); Monocytes Absolute Auto 0.6 K/mm3 (0.1-0.6); Monocytes Percent Auto 7.1 % (2.6-8.5); Neutrophils Absolute Auto 4.7 K/mm3 (1.3-6.7); Neutrophils Percent Auto 59.9 % (45.5-73.1); Platelet Count Result 244 k/mm3 (150-375); Red Blood Count 3.99 M/mm3 (4.2-5.4); Red Cell Distribution Width 16.9 % (11.5-14.5); White Blood Count 7.8 K/mm3 (4.5-10.0)
[2020-05-05 06:00] LABS: Alanine Aminotransferase 82 U/L (4-35); Albumin Level 3.7 g/dL (3.5-5.1); Alkaline Phosphatase 63 U/L (38-126); Anion Gap 7 mmol/L (8-16); Aspartate Amino Transferase 139 U/L (14-36); Bilirubin,Total 0.4 mg/dL (0.2-1.3); Blood Urea Nitrogen 24 mg/dL (7-17); Calcium 9.2 mg/dL (8.4-10.2); Carbon Dioxide 31 mmol/L (22-30); Chloride 112 mmol/L (98-107); Estimated CRCL calculation 68 ml/min; Estimated Glomerular Filt Rate > 60; Glucose 198 mg/dL (65-105); Lactate Dehydrogenase 669 U/L (313-618); Lactic Acid Reflex 2.3 mmol/L (0.7-2.1); Phosphorus 3.4 mg/dL (2.5-4.5); Potassium 3.5 mmol/L (3.4-5.0); Sodium 150 mmol/L (137-145)
[2020-05-05 06:12] LABS: Hemoglobin A1C 7.8 % (<5.7)
[2020-05-05] MEDS: METOCLOPRAMIDE HCL 10 MG TABLET FEED TUBE ×4 (06:27→21:17)
[2020-05-05 06:34] LABS: Glucose Point of Care 178 (65-105)
[2020-05-05] MEDS: IPRATROPIUM BR 0.02% INH SOLN 0.5 MG/2.5 ML VIAL INHALATION ×2 (08:11→19:57)
[2020-05-05] MEDS: ALBUTEROL SULFATE NEB 2.5 MG/0.5 ML INH INHALATION ×2 (08:12→19:57)
[2020-05-05 08:43] LABS: Reflex Lactic Acid Yes or No Add Lactic
[2020-05-05] MEDS: ASCORBIC ACID 500 MG TABLET FEED TUBE (08:49)
[2020-05-05] MEDS: FUROSEMIDE 20 MG TABLET FEED TUBE (08:50)
[2020-05-05] MEDS: FAMOTIDINE 20 MG TABLET FEED TUBE (08:50)
[2020-05-05] MEDS: LACTULOSE 20 GM/30 ML UDC FEED TUBE (08:51)
[2020-05-05] MEDS: MIDODRINE HCL 10 MG TABLET FEED TUBE ×3 (08:51→17:15)
[2020-05-05] MEDS: PANTOPRAZOLE 40 MG TABLET PO ×2 (08:51→17:16)
[2020-05-05] MEDS: INSULIN DETEMIR 100 UNITS/ML 12 UNITS SUB-Q (08:52)
[2020-05-05] MEDS: ERGOCALCIFEROL 50,000 UNIT CAPSULE 50000 UNITS FEED TUBE (08:57)
[2020-05-05 09:16] LABS: Lactic Acid 1.7 mmol/L (0.7-2.1)
--- NOTE | 2020-05-05 10:50 | PM.IMPN ---
Subjective Date/time seen: 05/05/20 10:50 Interval history: Patient was seen during the morning rounds today. Patient is more alert this morning. No shortness of breath or chest pain. Mood stable. Review of Systems Review of Systems: All systems reviewed & are unremarkable except as noted in HPI and below Constitutional: Constitutional: Reports as per HPI Eyes: Eyes: Reports as per HPI ENT: Reports system reviewed and no additional complaints, except as documented Cardiovascular: Cardiovascular: Reports as per HPI Respiratory: Respiratory: Reports as per HPI Gastrointestinal: Gastrointestinal: Reports as per HPI Musculoskeletal: Musculoskeletal: Reports no additional musculoskeletal complaints Neurologic: Reports system reviewed and no additional complaints, except as documented and Reports as per HPI Psychiatric: Psychiatric: Reports no additional psychiatric complaints and Reports as per HPI Endocrine: Endocrine: Reports as per HPI Exam Const: General: cooperative, healthy appearing, comfortable, no acute distress, well developed, alert, awake and Physically active Nutritional Appearance: average body habitus and well nourished Orientation/consciousness: oriented to person, oriented to place, oriented to time and patient oriented x3 Limitations: altered mental status HENMT: Head: normal to inspection, No palpable skull fracture present, normocephalic and atraumatic Ears: hearing grossly normal bilaterally and external ears normal General nose exam: Normal external nose present, Normal nares present and No nasal polyps present Face and sinus: normal facial exam Mouth: Yes Normal oral and palatal mucosa present Eyes: General: appearance normal, both eyes and all related structures Alignment and Position: alignment normal Periorbital: periorbital findings normal Eyelids: eyelids normal Conjunctivae: conjunctivae normal Sclera: sclerae normal Cornea: corneas normal Pupils: Equal, round and reactive pupils present and Pupil accommodation reflex normal EOM: EOMs intact bilaterally Neck: Neck: normal visual inspection, full ROM, no lymphadenopathy, trachea midline and supple Thyroid: thyroid normal Carotids: normal carotid upstroke Lymphatic: no lymphadenopathy noted Chest: Chest palpation & inspection: normal inspection of the chest and normal palpation of entire chest wall Resp: Effort & Inspection: normal respiratory effort Auscultation: clear to auscultation bilaterally Percussion: percussion normal Cardio: Jugular venous distension: no JVD Palpation: normal PMI Rate: regular rate Rhythm: regular rhythm Heart sounds: S1 normal heart sound present and S2 normal heart sound present Peripheral pulses: Peripheral pulses 2+ throughout GI: Inspection: normal to inspection GI Palp: No abdominal tenderness Auscultation: normal bowel sounds Rectal Exam: deferred Urinary Catheter: Urinary Catheter: patent and draining and urine cloudy Skin: General skin exam: normal color Lesions: no lesions Rashes: no rashes Trauma: no lacerations or abrasions Wounds: no wounds Hair: normal Nails: normal Neuro: General: oriented to person, oriented to place, oriented to time and patient oriented x3 Cranial nerves: Yes CN's II-XII intact bilaterally, Yes Equal, round and reactive pupils present and Yes Normal hearing present Cognition (Neuro): normal cognition Speech: normal speech Gait exam (Neuro): Normal gait present Motor exam (neuro): 5/5 motor strength present throughout Sensory Exam: normal sensation Extrem: General: normal to inspection Right upper extremity: normal to inspection Left upper extremity: normal to inspection Right lower extremity: normal to inspection Left lower extremity: normal to inspection Psych: Appearance: grossly normal Mental Status: mental status grossly normal Speech and movement: Normal speech and movement present Affect: Labile affect present Attitude: cooperative Insight: Poor i
--- NOTE | 2020-05-05 10:52 | PM.IMPN ---
Progress Note: A&P Assessment and Plan (1) Acute metabolic encephalopathy: Code(s): G93.41 - Metabolic encephalopathy Status: Acute Assessment and Plan: Could be related to dehydration or urinary tract infection. The patient is more talkative 1 she received IV fluids. Will monitor electrolytes sodium is 150 also want to urine culture (2) Urinary tract infection: Qualifiers: Hematuria presence: without hematuria Urinary tract infection type: site unspecified Qualified Code(s): N39.0 - Urinary tract infection, site not specified Code(s): N39.0 - Urinary tract infection, site not specified Status: Acute Assessment and Plan: Blood cultures and urine cultures are pending. She has had a history of having E coli in the past. Patient was started on Rocephin. (3) Acute hypernatremia: Code(s): E87.0 - Hyperosmolality and hypernatremia Status: Acute Assessment and Plan: Patient's tube feedings have not been started as of yet. Patient was on LR. I change her to D5 half-normal saline will recheck her sodium in the morning. Her mucous membranes do appear to be dry. The patient does appear to be dehydrated. With her tube feedings. I will consult dietary for tube feeding evaluation. Feeding started today (4) Insulin dependent type 2 diabetes mellitus: Code(s): E11.9 - Type 2 diabetes mellitus without complications; Z79.4 - alf (current) use of insulin Status: Acute Assessment and Plan: Accu-Cheks every 6 hours. Sliding scale insulin check A1c Subjective Date/time seen: 05/05/20 10:52 Interval history: Patient was seen during the morning rounds. Patient is more alert. Patient denies any shortness breath or chest pain. Mood stable. Review of Systems Constitutional: Constitutional: Reports no additional constitutional complaints Eyes: Eyes: Reports no additional eye complaints Cardiovascular: Cardiovascular: Reports no additional cardiovascular complaints Respiratory: Respiratory: Reports no additional respiratory complaints and Reports no additional respiratory complaints Gastrointestinal: Gastrointestinal: Reports no additional gastrointestinal complaints Integumentary/Breasts: Skin/Breast: Reports system reviewed and no additional complaints, except as docu and Reports as per HPI Endocrine: Endocrine: Reports no additional endocrine complaints Hematologic/Lymphatic: Hematologic/Lymphatic: Reports no additional hematologic/lymphatic complaints Allergic/Immunologic: Allergic/Immunologic: Reports no additional allergic/immunologic complaints Exam Narrative: Exam Narrative: Const General: cooperative, healthy appearing, comfortable, no acute distress, well developed, alert, awake and Physically active Nutritional Appearance: average body habitus and well nourished Orientation/consciousness: oriented to person Limitations: altered mental status [facility] Head: normal to inspection, No palpable skull fracture present, normocephalic and atraumatic Ears: hearing grossly normal bilaterally and external ears normal General nose exam: Normal external nose present, Normal nares present and No nasal polyps present Eyes General: appearance normal, both eyes and all related structures Alignment and Position: alignment normal Periorbital: periorbital findings normal Eyelids: eyelids normal Conjunctivae: conjunctivae normal Sclera: sclerae normal Cornea: corneas normal Pupils: Equal, round and reactive pupils present and Pupil accommodation reflex normal EOM: EOMs intact bilaterally Neck Neck: normal visual inspection, full ROM, no lymphadenopathy, trachea midline and supple Thyroid: thyroid normal Carotids: normal carotid upstroke Lymphatic: no lymphadenopathy noted Chest Chest palpation & inspection: normal inspection of the chest Resp Effort & Inspection: normal respiratory effort Auscultation: clear to auscultation bilaterally Percussion: perc
[2020-05-05] MEDS: DEXTROSE 5%/0.45% SOD CHL 1,000 ML 75 ML IV CONT (11:31)
[2020-05-05 12:35] LABS: Glucose Point of Care 238 (65-105)
[2020-05-05] MEDS: INSULIN ASPART (*BKC) 100 UNITS/ML SUB-Q (13:20)
--- NOTE | 2020-05-05 14:06 | PCNSR ---
On 05/05/20, the student, Radha Richard, provided care and completed [facility] documentation on this patient. I have reviewed the student's documentation and agree with the findings.
[2020-05-05] MEDS: guaiFENesin 200 MG/10 ML UDC PO (16:03)
[2020-05-05 17:43] LABS: Glucose Point of Care 162 (65-105)
[2020-05-05] MEDS: INSULIN GLARGINE (*BKC) 100 UNITS/ML 10 UNITS SUB-Q (21:19)
[2020-05-05 21:45] LABS: Glucose Point of Care 198 (65-105)
[2020-05-06] VITALS (8 sets, daily range): BP systolic 101–121; BP diastolic 49–53; PULSE 74–83; RESP 18–19; TEMP 36.2–36.5; O2SAT 94–100
[2020-05-06 00:37] LABS: Glucose Point of Care 178 (65-105)
[2020-05-06] MEDS: DEXTROSE 5%/0.45% SOD CHL 1,000 ML 75 ML IV CONT ×2 (05:02→20:50)
[2020-05-06] MEDS: INSULIN ASPART (*BKC) 100 UNITS/ML SUB-Q ×3 (05:22→18:30)
[2020-05-06 06:08] LABS: Alanine Aminotransferase 79 U/L (4-35); Albumin Level 3.3 g/dL (3.5-5.1); Alkaline Phosphatase 74 U/L (38-126); Anion Gap 3 mmol/L (8-16); Aspartate Amino Transferase 88 U/L (14-36); Bilirubin,Total 0.1 mg/dL (0.2-1.3); Blood Urea Nitrogen 16 mg/dL (7-17); Calcium 8.7 mg/dL (8.4-10.2); Carbon Dioxide 28 mmol/L (22-30); Chloride 111 mmol/L (98-107); Estimated CRCL calculation 58 ml/min; Estimated Glomerular Filt Rate > 60; Glucose 226 mg/dL (65-105); Potassium 3.3 mmol/L (3.4-5.0); Sodium 142 mmol/L (137-145)
[2020-05-06] MEDS: METOCLOPRAMIDE HCL 10 MG TABLET FEED TUBE ×4 (06:27→20:41)
[2020-05-06 07:32] LABS: Glucose Point of Care 219 (65-105)
--- NOTE | 2020-05-06 08:03 | PM.IMPN ---
Progress Note: A&P Assessment and Plan (1) Acute metabolic encephalopathy: Code(s): G93.41 - Metabolic encephalopathy Status: Acute Assessment and Plan: Could be related to dehydration or urinary tract infection. The patient is more talkative 1 she received IV fluids. Will monitor electrolytes sodium is 150 also want to urine culture (2) Urinary tract infection: Qualifiers: Hematuria presence: without hematuria Urinary tract infection type: site unspecified Qualified Code(s): N39.0 - Urinary tract infection, site not specified Code(s): N39.0 - Urinary tract infection, site not specified Status: Acute Assessment and Plan: Blood cultures are pending. 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 Sliding scale insulin check A1c (5) Hypokalemia: Code(s): E87.6 - Hypokalemia Status: Acute Assessment and Plan: Potassium is 3.3. Will replace and recheck tomorrow. Subjective Date/time seen: 05/06/20 08:03 Interval history: Patient was seen during the morning rounds. Patient is more alert. Patient denies any shortness breath or chest pain. Mood stable. No new complaints Review of Systems Review of Systems: All systems reviewed & are unremarkable except as noted in HPI and below (the history and physical exam) Constitutional: Constitutional: Reports no additional constitutional complaints Eyes: Eyes: Reports no additional eye complaints Cardiovascular: Cardiovascular: Reports no additional cardiovascular complaints Respiratory: Respiratory: Reports no additional respiratory complaints and Reports no additional respiratory complaints Gastrointestinal: Gastrointestinal: Reports no additional gastrointestinal complaints Integumentary/Breasts: Skin/Breast: Reports system reviewed and no additional complaints, except as docu and Reports as per HPI Endocrine: Endocrine: Reports no additional endocrine complaints Hematologic/Lymphatic: Hematologic/Lymphatic: Reports no additional hematologic/lymphatic complaints Allergic/Immunologic: Allergic/Immunologic: Reports no additional allergic/immunologic complaints Exam Narrative: Exam Narrative: Const General: cooperative, healthy appearing, comfortable, no acute distress, well developed, alert, awake and Physically active Nutritional Appearance: average body habitus and well nourished Orientation/consciousness: oriented to person Limitations: altered mental status [facility] Head: normal to inspection, No palpable skull fracture present, normocephalic and atraumatic Ears: hearing grossly normal bilaterally and external ears normal General nose exam: Normal external nose present, Normal nares present and No nasal polyps present Eyes General: appearance normal, both eyes and all related structures Alignment and Position: alignment normal Periorbital: periorbital findings normal Eyelids: eyelids normal Conjunctivae: conjunctivae normal Sclera: sclerae normal Cornea: corneas normal Pupils: Equal, round and reactive pupils present and Pupil accommodation reflex normal EOM: EOMs intact bilaterally Neck Neck: normal visual inspection, full ROM, no lymphadenopathy, trachea midline and supple Thyroid: thyroid normal Carotids: normal carotid upstroke Lymphatic: no lymphadenopathy noted Chest Chest palpation & inspection: normal inspection of the chest Resp Effort & Inspection: normal respiratory effort Auscultation: clear to auscultation bilaterally Percussion: percussion normal Cardio Palpation: normal PMI Rate: re
[2020-05-06 08:05] LABS: Glucose Point of Care 211 (65-105)
[2020-05-06] MEDS: ASCORBIC ACID 500 MG TABLET FEED TUBE (08:49)
[2020-05-06] MEDS: MIDODRINE HCL 10 MG TABLET FEED TUBE ×3 (08:49→18:27)
[2020-05-06] MEDS: FAMOTIDINE 20 MG TABLET FEED TUBE (08:49)
[2020-05-06] MEDS: LACTULOSE 20 GM/30 ML UDC FEED TUBE (08:49)
[2020-05-06] MEDS: PANTOPRAZOLE 40 MG TABLET PO ×2 (08:49→18:27)
[2020-05-06] MEDS: FUROSEMIDE 20 MG TABLET FEED TUBE (08:49)
[2020-05-06] MEDS: INSULIN DETEMIR 100 UNITS/ML 12 UNITS SUB-Q (09:07)
[2020-05-06] MEDS: POTASSIUM CHLORIDE 20 MEQ PACKET (FOR LIQUID) 40 MEQ FEED TUBE (09:11)
--- NOTE | 2020-05-06 11:01 | PCPTNOTE ---
Attempted PT this a.m. - unable to arouse pt to perform PT eval - will try again later.
--- NOTE | 2020-05-06 12:11 | PCOTNOTE ---
Attempted OT evaluation this am; pt. was sleeping and unable to wake. Will attempt this afternoon.
[2020-05-06 12:47] LABS: Glucose Point of Care 230 (65-105)
--- NOTE | 2020-05-06 14:03 | PCPTNOTE ---
Attempted to see for PT again this afternoon. Unable to awaken pt. Will try again tomorrow.
--- NOTE | 2020-05-06 14:05 | PCOTNOTE ---
Attempted OT Evaluation this PM. Pt. is still sleeping and refusing to wake at this time. Will attempt again tomorrow.
[2020-05-06 18:25] LABS: Glucose Point of Care 224 (65-105)
[2020-05-06] MEDS: EUCERIN CREAM 120 GM JAR 1 APPLIC TOPICAL (18:27)
[2020-05-06 19:48] LABS: SARS-CoV-2 RNA PCR Negative
[2020-05-06] MEDS: guaiFENesin 200 MG/10 ML UDC PO (20:41)
[2020-05-06] MEDS: INSULIN GLARGINE (*BKC) 100 UNITS/ML 10 UNITS SUB-Q (20:41)
[2020-05-06] MEDS: IPRATROPIUM BR 0.02% INH SOLN 0.5 MG/2.5 ML VIAL INHALATION (21:40)
[2020-05-07] VITALS (8 sets, daily range): BP systolic 105–127; BP diastolic 57–77; PULSE 72–85; RESP 16–22; TEMP 35.9–36.4; O2SAT 94–98; BMI 10.0
[2020-05-07] MEDS: INSULIN ASPART (*BKC) 100 UNITS/ML SUB-Q ×3 (00:32→12:35)
[2020-05-07 05:15] LABS: Anion Gap 4 mmol/L (8-16); Blood Urea Nitrogen 12 mg/dL (7-17); Carbon Dioxide 29 mmol/L (22-30); Chloride 110 mmol/L (98-107); Estimated CRCL calculation 68 ml/min; Estimated Glomerular Filt Rate > 60; Glucose 216 mg/dL (65-105); Potassium 3.7 mmol/L (3.4-5.0); Sodium 143 mmol/L (137-145)
[2020-05-07] MEDS: METOCLOPRAMIDE HCL 10 MG TABLET FEED TUBE ×4 (06:32→21:24)
[2020-05-07 06:50] LABS: Glucose Point of Care 204 (65-105)
[2020-05-07 06:50] LABS: Glucose Point of Care 214 (65-105)
--- NOTE | 2020-05-07 08:26 | PM.IMPN ---
Progress Note: A&P Assessment and Plan (1) Acute metabolic encephalopathy: Code(s): G93.41 - Metabolic encephalopathy Status: Acute Assessment and Plan: Could be related to dehydration or urinary tract infection. The patient is more talkative 1 she received IV fluids. Will monitor electrolytes sodium is 150 also want to urine culture (2) Urinary tract infection: Qualifiers: Hematuria presence: without hematuria Urinary tract infection type: site unspecified Qualified Code(s): N39.0 - Urinary tract infection, site not specified Code(s): N39.0 - Urinary tract infection, site not specified Status: Acute Assessment and Plan: Blood cultures are pending. 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 Sliding scale insulin check A1c (5) Hypokalemia: Code(s): E87.6 - Hypokalemia Status: Acute Assessment and Plan: Resolved Subjective Date/time seen: 05/07/20 08:26 Interval history: Patient was seen during the morning rounds. Patient is more alert. Patient denies any shortness breath or chest pain. No fever. Mood stable. No new complaints Review of Systems Review of Systems: All systems reviewed & are unremarkable except as noted in HPI and below (the history and physical exam) Constitutional: Constitutional: Reports no additional constitutional complaints Eyes: Eyes: Reports no additional eye complaints Cardiovascular: Cardiovascular: Reports no additional cardiovascular complaints Respiratory: Respiratory: Reports no additional respiratory complaints and Reports no additional respiratory complaints Gastrointestinal: Gastrointestinal: Reports no additional gastrointestinal complaints Integumentary/Breasts: Skin/Breast: Reports system reviewed and no additional complaints, except as docu and Reports as per HPI Endocrine: Endocrine: Reports no additional endocrine complaints Hematologic/Lymphatic: Hematologic/Lymphatic: Reports no additional hematologic/lymphatic complaints Allergic/Immunologic: Allergic/Immunologic: Reports no additional allergic/immunologic complaints Exam Narrative: Exam Narrative: Const General: cooperative, healthy appearing, comfortable, no acute distress, well developed, alert, awake and Physically active Nutritional Appearance: average body habitus and well nourished Orientation/consciousness: oriented to person Limitations: altered mental status [facility] Head: normal to inspection, No palpable skull fracture present, normocephalic and atraumatic Ears: hearing grossly normal bilaterally and external ears normal General nose exam: Normal external nose present, Normal nares present and No nasal polyps present Eyes General: appearance normal, both eyes and all related structures Alignment and Position: alignment normal Periorbital: periorbital findings normal Eyelids: eyelids normal Conjunctivae: conjunctivae normal Sclera: sclerae normal Cornea: corneas normal Pupils: Equal, round and reactive pupils present and Pupil accommodation reflex normal EOM: EOMs intact bilaterally Neck Neck: normal visual inspection, full ROM, no lymphadenopathy, trachea midline and supple Thyroid: thyroid normal Carotids: normal carotid upstroke Lymphatic: no lymphadenopathy noted Chest Chest palpation & inspection: normal inspection of the chest Resp Effort & Inspection: normal respiratory effort Auscultation: clear to auscultation bilaterally Percussion: percussion normal Cardio Palpation: normal PMI Rate:
[2020-05-07] MEDS: LACTULOSE 20 GM/30 ML UDC FEED TUBE (10:00)
[2020-05-07] MEDS: MIDODRINE HCL 10 MG TABLET FEED TUBE ×3 (10:00→17:58)
[2020-05-07] MEDS: PANTOPRAZOLE 40 MG TABLET PO ×2 (10:00→17:59)
[2020-05-07] MEDS: ASCORBIC ACID 500 MG TABLET FEED TUBE (10:00)
[2020-05-07] MEDS: EUCERIN CREAM 120 GM JAR 1 APPLIC TOPICAL ×2 (10:00→17:59)
[2020-05-07] MEDS: FUROSEMIDE 20 MG TABLET FEED TUBE (10:00)
[2020-05-07] MEDS: FAMOTIDINE 20 MG TABLET FEED TUBE (10:00)
[2020-05-07] MEDS: INSULIN DETEMIR 100 UNITS/ML 12 UNITS SUB-Q (10:00)
[2020-05-07] MEDS: guaiFENesin 200 MG/10 ML UDC PO ×3 (11:18→21:24)
[2020-05-07 12:40] LABS: Glucose Point of Care 230 (65-105)
[2020-05-07] MEDS: DEXTROSE 5%/0.45% SOD CHL 1,000 ML 75 ML IV CONT (12:42)
[2020-05-07 18:19] LABS: Glucose Point of Care 175 (65-105)
[2020-05-07] MEDS: IPRATROPIUM BR 0.02% INH SOLN 0.5 MG/2.5 ML VIAL INHALATION (20:07)
[2020-05-07] MEDS: ALBUTEROL SULFATE NEB 2.5 MG/0.5 ML INH INHALATION (20:07)
[2020-05-07] MEDS: INSULIN GLARGINE (*BKC) 100 UNITS/ML 15 UNITS SUB-Q (21:24)
[2020-05-07 21:30] LABS: Glucose Point of Care 200 (65-105)
[2020-05-08] VITALS (9 sets, daily range): BP systolic 120–125; BP diastolic 45–56; PULSE 68–96; RESP 16–20; TEMP 36.1–36.2; O2SAT 91–98
[2020-05-08] MEDS: IPRATROPIUM BR 0.02% INH SOLN 0.5 MG/2.5 ML VIAL INHALATION ×3 (02:34→14:15)
[2020-05-08] MEDS: ALBUTEROL SULFATE NEB 2.5 MG/0.5 ML INH INHALATION ×3 (02:34→14:15)
[2020-05-08] MEDS: guaiFENesin 200 MG/10 ML UDC PO ×6 (05:28→20:21)
[2020-05-08 05:33] LABS: Glucose Point of Care 326 (65-105)
[2020-05-08] MEDS: INSULIN ASPART (*BKC) 100 UNITS/ML SUB-Q ×3 (05:33→23:41)
[2020-05-08 06:15] LABS: Estimated CRCL calculation 68 ml/min; Estimated Glomerular Filt Rate > 60
[2020-05-08] MEDS: FUROSEMIDE 20 MG TABLET FEED TUBE (08:25)
[2020-05-08] MEDS: MIDODRINE HCL 10 MG TABLET FEED TUBE ×3 (08:25→16:23)
[2020-05-08] MEDS: METOCLOPRAMIDE HCL 10 MG TABLET FEED TUBE ×4 (08:25→20:21)
[2020-05-08] MEDS: LACTULOSE 20 GM/30 ML UDC FEED TUBE (08:25)
[2020-05-08] MEDS: FAMOTIDINE 20 MG TABLET FEED TUBE (08:25)
[2020-05-08] MEDS: ASCORBIC ACID 500 MG TABLET FEED TUBE (08:25)
[2020-05-08] MEDS: EUCERIN CREAM 120 GM JAR 1 APPLIC TOPICAL ×2 (08:26→16:24)
[2020-05-08] MEDS: PANTOPRAZOLE 40 MG TABLET PO ×2 (08:26→16:24)
--- NOTE | 2020-05-08 11:27 | PM.IMPN ---
Progress Note: A&P Assessment and Plan (1) Acute metabolic encephalopathy: Code(s): G93.41 - Metabolic encephalopathy Status: Acute Assessment and Plan: Could be related to dehydration or urinary tract infection. The patient is more talkative 1 she received IV fluids. Will monitor electrolytes sodium is 150 also want to urine culture (2) Urinary tract infection: Qualifiers: Hematuria presence: without hematuria Urinary tract infection type: site unspecified Qualified Code(s): N39.0 - Urinary tract infection, site not specified Code(s): N39.0 - Urinary tract infection, site not specified Status: Acute Assessment and Plan: Blood cultures are pending. 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 Sliding scale insulin check A1c (5) Hypokalemia: Code(s): E87.6 - Hypokalemia Status: Acute Assessment and Plan: Resolved Additional Plan Will continue current treatment. Patient has a VRE UTI. Consult ID and manage accordingly. Subjective Date/time seen: 05/08/20 11:27 Interval history: Patient was seen during the morning rounds. Patient is more alert. Patient denies any shortness breath or chest pain. No fever. Mood stable. No new complaints Review of Systems Review of Systems: All systems reviewed & are unremarkable except as noted in HPI and below (the history and physical exam) Constitutional: Constitutional: Reports no additional constitutional complaints Eyes: Eyes: Reports no additional eye complaints Cardiovascular: Cardiovascular: Reports no additional cardiovascular complaints Respiratory: Respiratory: Reports no additional respiratory complaints and Reports no additional respiratory complaints Gastrointestinal: Gastrointestinal: Reports no additional gastrointestinal complaints Integumentary/Breasts: Skin/Breast: Reports system reviewed and no additional complaints, except as docu and Reports as per HPI Endocrine: Endocrine: Reports no additional endocrine complaints Hematologic/Lymphatic: Hematologic/Lymphatic: Reports no additional hematologic/lymphatic complaints Allergic/Immunologic: Allergic/Immunologic: Reports no additional allergic/immunologic complaints Exam Narrative: Exam Narrative: Const General: cooperative, healthy appearing, comfortable, no acute distress, well developed, alert, awake and Physically active Nutritional Appearance: average body habitus and well nourished Orientation/consciousness: oriented to person Limitations: altered mental status [facility] Head: normal to inspection, No palpable skull fracture present, normocephalic and atraumatic Ears: hearing grossly normal bilaterally and external ears normal General nose exam: Normal external nose present, Normal nares present and No nasal polyps present Eyes General: appearance normal, both eyes and all related structures Alignment and Position: alignment normal Periorbital: periorbital findings normal Eyelids: eyelids normal Conjunctivae: conjunctivae normal Sclera: sclerae normal Cornea: corneas normal Pupils: Equal, round and reactive pupils present and Pupil accommodation reflex normal EOM: EOMs intact bilaterally Neck Neck: normal visual inspection, full ROM, no lymphadenopathy, trachea midline and supple Thyroid: thyroid normal Carotids: normal carotid upstroke Lymphatic: no lymphadenopathy noted Chest Chest palpation & inspection: normal inspection of the chest Resp Effort & Inspection: normal respiratory effort Auscu
[2020-05-08 12:28] LABS: Glucose Point of Care 201 (65-105)
--- NOTE | 2020-05-08 13:24 | WPDINFPN2 ---
Progress Note: A&P Assessment and Plan (1) Asymptomatic bacteriuria: Code(s): R82.71 - Bacteriuria Status: Acute Assessment and Plan: 1. ASB and chronic Hodge 2. Altered mental status, metabolic and perhaps tumor REC No antimicrobials. Call if other Qs Subjective Date/time seen: 05/08/20 13:24 Objective Data Vital Signs Vital Signs: Vital Signs - 24 hr 05/07/20 14:00 05/07/20 20:00 05/07/20 20:08 Temperature 35.9 C L Pulse Rate 72 85 72 Respiratory Rate 22 H 16 18 Blood Pressure 105/77 Pulse Oximetry 98 94 96 05/07/20 20:09 05/07/20 22:00 05/08/20 02:35 Temperature 36.1 C L Pulse Rate 72 85 68 Respiratory Rate 18 16 20 Blood Pressure 127/59 L Pulse Oximetry 94 05/08/20 06:00 05/08/20 08:18 Temperature 36.1 C L Pulse Rate 92 88 Respiratory Rate 20 18 Blood Pressure 121/45 L Pulse Oximetry 98 94 Intake/Output Intake/Output: Intake & Output 05/05/20 05/06/20 05/07/20 05/08/20 23:59 23:59 23:59 23:59 Intake Total 1726 4428 2071 Output Total 950 2050 3450 1000 Balance 776 7658 -7709 -1000 Meds/Results Medications: Active Medications Generic Name Dose Route Start Last Admin Trade Name Freq PRN Reason Stop Dose Admin Albuterol 2.5 mg 05/07/20 20:00 05/08/20 08:18 Albuterol Sulfate Neb 2.5 Mg/0.5 Ml Inh INHALATION 2.5 mg Q6HRT BRYCE Administration Ascorbic Acid 500 mg 05/05/20 09:00 05/08/20 08:25 Ascorbic Acid 500 Mg Tablet FEED TUBE 500 mg DAILY BRYCE Administration Dextrose 12.5 gm 05/04/20 23:20 Dextrose 50% 25 Gm/50 Ml Syringe IV PUSH PRN PRN Hypoglycemia Protocol Ergocalciferol 50,000 unit 05/05/20 09:00 05/05/20 08:57 Ergocalciferol 50,000 Unit Capsule FEED TUBE 50,000 unit WEEKLY BRYCE Administration Famotidine 20 mg 05/05/20 09:00 05/08/20 08:25 Famotidine 20 Mg Tablet FEED TUBE 20 mg DAILY BRYCE Administration Furosemide 20 mg 05/05/20 09:00 05/08/20 08:25 Furosemide 20 Mg Tablet FEED TUBE 20 mg DAILY BRYCE Administration Glucagon 1 mg 05/04/20 23:20 Glucagon For Inj 1 Mg Vial IM PRN PRN Hypoglycemia Protocol Glucose 15 gm 05/04/20 23:20 Glucose Oral Gel 15 Gm Of Glucse In 37.5 Gm Tube PO PRN PRN Hypoglycemia Protocol Guaifenesin 200 mg 05/07/20 17:00 05/08/20 12:00 Guaifenesin 200 Mg/10 Ml Udc PO 200 mg Q4HR BRYCE Administration Ceftriaxone Sodium/Dextrose 1 gm in 50 mls @ 100 mls/hr 05/05/20 14:00 05/07/20 13:37 Rocephin 1 Gm/D5w 50 Ml IVPB Infused Q24H BRYCE Infusion Dextrose 1,000 mls @ 100 mls/hr 05/04/20 23:20 Dextrose 5% 1,000 Ml IVPB PRN PRN Hypoglycemia Protocol Insulin Aspart 2 - 5 units 05/05/20 06:00 05/08/20 12:01 Insulin Aspart (*Bkc) 100 Units/Ml SUB-Q 2 units Q6H BRYCE Administration Protocol Insulin Glargine 15 units 05/07/20 21:00 05/07/20 21:24 Insulin Glargine (*Bkc) 100 Units/Ml SUB-Q 15 units HS BRYCE Administration Ipratropium [place] 0.5 mg 05/07/20 20:00 05/08/20 08:18 Ipratropium Br 0.02% Inh Soln 0.5 Mg/2.5 Ml Vial INHALATION 0.5 mg Q6HRT BRYCE Administration Lactulose 20 gm 05/05/20 09:00 05/08/20 08:25 Lactulose 20 Gm/30 Ml Udc FEED TUBE 20 gm DAILY BRYCE Administration Metoclopramide HCl 10 mg 05/05/20 07:30 05/08/20 12:00 Metoclopramide Hcl 10 Mg Tablet FEED TUBE 10 mg 0730,1130,1630,2100 BRYCE Administration Midodrine 10 mg 05/05/20 09:00 05/08/20 12:00 Midodrine Hcl 10 Mg Tablet FEED TUBE 10 mg TID BRYCE Administration Multi-Ingred Cream/Lotion/Oil/Oint 1 applic 05/06/20 17:00 05/08/20 08:26 Eucerin Cream 120 Gm Jar TOPICAL 1 applic BID BRYCE Administration Pantoprazole Sodium 40 mg 05/05/20 09:00 05/08/20 08:26 Pantoprazole 40 Mg Tablet PO 06/04/20 09:01 40 mg BID BRYCE Administration Promethazine HCl 25 mg 05/04/20 23:19 Promethazine Hcl 25 Mg Supp.Rect RECTAL Q6H
--- NOTE | 2020-05-08 13:41 | P.CDI_ITS ---
CDI Query Clarification Request -UTI has been documented -Pt has a chronic indwelling parada catheter per documentation Please clarify if UTI: * Is due to /associated with chronic parada * Not due to / associated with chronic parada * Unable to determine <Yaz Golden RN - Last Filed: 05/10/20 11:18> Is due to chronic Parada catheter <Barber Wayne MD - Last Filed: 05/16/20 08:29>
--- NOTE | 2020-05-08 13:41 | WPDCDIQUERY2 ---
CDI Query Clarification Request -UTI has been documented -Pt has a chronic indwelling parada catheter per documentation Please clarify if UTI: Is due to /associated with chronic parada Not due to / associated with chronic parada Unable to determine <Yaz Golden RN - Last Filed: 05/10/20 11:18> Is due to chronic Parada catheter <Barber Wayne MD - Last Filed: 05/16/20 08:29>
[2020-05-08 16:40] LABS: Glucose Point of Care 187 (65-105)
[2020-05-08] MEDS: INSULIN GLARGINE (*BKC) 100 UNITS/ML 15 UNITS SUB-Q (20:26)
[2020-05-08 20:44] LABS: Glucose Point of Care 195 (65-105)
[2020-05-09] VITALS (11 sets, daily range): BP systolic 110–119; BP diastolic 46–54; PULSE 87–99; RESP 18–20; TEMP 36.1–36.6; O2SAT 91–96; BMI 11.0
[2020-05-09] MEDS: guaiFENesin 200 MG/10 ML UDC PO ×3 (00:13→08:27)
[2020-05-09 00:17] LABS: Glucose Point of Care 218 (65-105)
[2020-05-09] MEDS: ALBUTEROL SULFATE NEB 2.5 MG/0.5 ML INH INHALATION ×4 (02:10→20:40)
[2020-05-09] MEDS: IPRATROPIUM BR 0.02% INH SOLN 0.5 MG/2.5 ML VIAL INHALATION ×4 (02:10→20:39)
[2020-05-09] MEDS: INSULIN ASPART (*BKC) 100 UNITS/ML SUB-Q ×3 (05:10→17:17)
[2020-05-09 07:27] LABS: Glucose Point of Care 221 (65-105)
[2020-05-09] MEDS: METOCLOPRAMIDE HCL 10 MG TABLET FEED TUBE ×4 (07:58→21:39)
[2020-05-09] MEDS: PANTOPRAZOLE 40 MG TABLET PO (08:26)
[2020-05-09] MEDS: ASCORBIC ACID 500 MG TABLET FEED TUBE (08:26)
[2020-05-09] MEDS: FUROSEMIDE 20 MG TABLET FEED TUBE (08:27)
[2020-05-09] MEDS: LACTULOSE 20 GM/30 ML UDC FEED TUBE (08:27)
[2020-05-09] MEDS: FAMOTIDINE 20 MG TABLET FEED TUBE (08:27)
[2020-05-09] MEDS: MIDODRINE HCL 10 MG TABLET FEED TUBE ×3 (08:28→16:18)
[2020-05-09] MEDS: EUCERIN CREAM 120 GM JAR 1 APPLIC TOPICAL ×2 (08:29→16:17)
[2020-05-09 08:41] LABS: Anion Gap 11 mmol/L (8-16); Blood Urea Nitrogen 17 mg/dL (7-17); Calcium 9.7 mg/dL (8.4-10.2); Carbon Dioxide 24 mmol/L (22-30); Chloride 103 mmol/L (98-107); Estimated CRCL calculation 68 ml/min; Estimated Glomerular Filt Rate > 60; Glucose 273 mg/dL (65-105); Potassium 4.3 mmol/L (3.4-5.0); Sodium 138 mmol/L (137-145)
[2020-05-09 12:06] LABS: Glucose Point of Care 286 (65-105)
--- NOTE | 2020-05-09 12:12 | PCDIET ---
Nutrition Follow-Up Complete: Nutrition Diagnosis: Swallowing difficulties related to aspiration pneumonia as evidenced by tube feeding order. Nutrition Goal: Patient will tolerate tube feeding and meet nutritional needs. Goal met. Patient tolerating Glucerna 1.2 at 55mL/hr goal rate with 100mL water flush every 4 hours. No issues, per RN. Last recorded weight is 64.1 kg. Recommend obtaining new weight. Bowel Motility: +Multiple BMs reported, loose. Labs Reviewed: Glu (273) Meds Noted: Albuterol, Novolog, Lactulose, Vitamin C, Pepcid, Lantus, Reglan, Drisdol, Lasix, Atrovent, Midodrine, Protonix Additional Notes: Buttocks reddened, but unopened. If medically appropriate, would consider stopping Reglan to potentially decrease stooling, though Lactulose likely contributing. May benefit from use of Banatrol, if this continues. Will follow closely. Nutrition Monitoring and Evaluation: Follow up every Friday and Friday.
[2020-05-09] MEDS: guaiFENesin 200 MG/10 ML UDC FEED TUBE ×3 (13:54→21:39)
[2020-05-09 13:56] LABS: SARS-CoV-2 RNA PCR Negative
--- NOTE | 2020-05-09 15:33 | PM.IMPN ---
Progress Note: A&P Assessment and Plan (1) Acute metabolic encephalopathy: Code(s): G93.41 - Metabolic encephalopathy Status: Acute Assessment and Plan: Acute on chronic encephalopathy. Etiology of the acute process unclear. UTI ruled out. Could be related to dehydration or hyponatremia. No new medications. The patient became more talkative after receiving IV fluids. COVID negative x2. Repeat CXR showing left basilar airspace disease possibly atelectasis. WBC slightly higher but no fevers. BCx remain negative. Electrolytes normal. Follow clinically. (2) Urinary tract infection: Qualifiers: Hematuria presence: without hematuria Urinary tract infection type: site unspecified Qualified Code(s): N39.0 - Urinary tract infection, site not specified Code(s): N39.0 - Urinary tract infection, site not specified Status: Acute Assessment and Plan: Ruled out. UCx growing VRE but felt to be a contaminant. Blood cultures remaining negative. Abx stopped. Appreciate ID input. (3) Acute hypernatremia: Code(s): E87.0 - Hyperosmolality and hypernatremia Status: Acute Assessment and Plan: Sodium up to 153 but has improved with IV fluids. [place] related to needing more free H2O. Sodium is normal today. Follow. 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 Was on Levemir on home med list but now on Lantus. Glucose reviewd on 05/09. Glucose still poorly controlled. Continue Accu-Cheks every 6 hours with sliding scale insulin. Hypoglycemia protocol available as needed. Advance Lantus, (5) Hypokalemia: Code(s): E87.6 - Hypokalemia Status: Acute Assessment and Plan: Potassium normal today. Resolved. (6) DVT prophylaxis: Code(s): Z29.9 - Encounter for prophylactic measures, unspecified Status: Acute Assessment and Plan: Lovenox Subjective Date/time seen: 05/09/20 15:33 Interval history: Date of service 05/09/20 75yo female with chronic encephalopathy and dysphagia with chronic GTube here for altered mental status. Assuming care. Chart reviewed. Patient is awake but somnolent and unable to provide history. Review of Systems Review of Systems: ROS unobtainable: Yes unobtainable due to mental status Exam Narrative: Exam Narrative: AF 96.9 119/49 89 18 92% ra Gen - NARD with HOB elevated. Chest - lungs clear anteriorly and i the flanks to quiet respirations. CV - RRR S1/S2 Abd - Soft, ND, +BS, GTube site clean and dry - Hodge secured draining clear yellow urine Ext - No pedal edema Neuro - awake but somnolent, follows commands, paucity of speech Skin - Warm and dry Objective Data Vital Signs Vital Signs: Vital Signs - 24 hr 05/08/20 20:00 05/08/20 22:00 05/09/20 02:10 Temperature 97.1 F L Pulse Rate 91 91 87 Respiratory Rate 18 18 20 Blood Pressure 120/48 L Pulse Oximetry 97 97 05/09/20 05:05 05/09/20 07:13 05/09/20 07:24 Temperature 96.9 F L Pulse Rate 92 89 90 Respiratory Rate 18 18 18 Blood Pressure 119/49 L Pulse Oximetry 96 92 05/09/20 08:29 05/09/20 13:30 05/09/20 13:41 Temperature Pulse Rate 88 89 Respiratory Rate 18 18 18 Blood Pressure Pulse Oximetry 92 Intake/Output Intake/Output: Intake & Output 05/06/20 05/07/20 05/08/20 05/09/20 23:59 23:59 23:59 23:59 Intake Total 4428 2071 500 2202 Output Total 2050 3450 2450 500 Balance 6484 -8897 -2182 1703 Meds/Results Medications: Active Medications Generic Name Dose Route Start Last Admin Trade Name Freq PRN Reason Stop Dose Admin Albuterol 2.5 mg 05/07/20 20:00 05/09/20 13:30 Albuterol Sulfate Neb 2.5 Mg/0.5 Ml Inh INHALATION 2.5 mg Q6HRT BRYCE Administration Ascorbic Acid 500 m
[2020-05-09 16:18] LABS: Hematocrit 38.1 % (37.0-47.0); Hemoglobin 11.8 g/dL (12.0-15.0); Mean Corpuscular Hemoglobin 26.5 pg (26-34); Mean Corpuscular Volume 85.4 fl (80-100); Mean Platelet Volume 10.5 fl (7.4-10.4); Platelet Count Result 344 k/mm3 (150-375); Red Blood Count 4.46 M/mm3 (4.2-5.4); Red Cell Distribution Width 17.1 % (11.5-14.5); White Blood Count 11.2 K/mm3 (4.5-10.0)
[2020-05-09] MEDS: LANSOPRAZOLE ORAL SUSP 30 MG/10 ML ORAL.SUSP FEED TUBE (16:35)
[2020-05-09 17:16] LABS: Glucose Point of Care 272 (65-105)
[2020-05-09] MEDS: INSULIN GLARGINE (*BKC) 100 UNITS/ML 18 UNITS SUB-Q (21:42)
[2020-05-09 22:06] LABS: Glucose Point of Care 243 (65-105)
[2020-05-10] VITALS (10 sets, daily range): BP systolic 118–143; BP diastolic 46–58; PULSE 88–95; RESP 18; TEMP 36–36.3; O2SAT 92–93
[2020-05-10] MEDS: guaiFENesin 200 MG/10 ML UDC FEED TUBE ×6 (00:38→20:37)
[2020-05-10] MEDS: INSULIN ASPART (*BKC) 100 UNITS/ML SUB-Q ×2 (00:49→05:46)
[2020-05-10 01:45] LABS: Glucose Point of Care 209 (65-105)
[2020-05-10] MEDS: IPRATROPIUM BR 0.02% INH SOLN 0.5 MG/2.5 ML VIAL INHALATION ×4 (02:16→20:27)
[2020-05-10] MEDS: ALBUTEROL SULFATE NEB 2.5 MG/0.5 ML INH INHALATION ×4 (02:16→20:27)
[2020-05-10 05:45] LABS: Glucose Point of Care 231 (65-105)
[2020-05-10 05:59] LABS: Basophils Absolute Auto 0.1 K/mm3 (0.0-0.1); Basophils Percent Auto 0.6 % (0.2-1.2); Eosinophils Absolute Auto 0.3 K/mm3 (0-0.3); Eosinophils Percent Auto 3.4 % (0-4.4); Hematocrit 34.9 % (37.0-47.0); Hemoglobin 10.8 g/dL (12.0-15.0); Immature Granulocyte Absolute 0.09 K/mm3 (0.00-0.031); Immature Granulocyte Percent A 0.9 % (0-0.5); Lymphocytes Absolute Auto 2.57 K/mm3 (0.9-3.2); Lymphocytes Percent Auto 26.4 % (18.3-44.2); Mean Corpuscular HGB Conc 30.9 g/dl (32-36); Mean Corpuscular Hemoglobin 26.9 pg (26-34); Mean Corpuscular Volume 86.8 fl (80-100); Mean Platelet Volume 10.6 fl (7.4-10.4); Monocytes Absolute Auto 0.6 K/mm3 (0.1-0.6); Monocytes Percent Auto 6.4 % (2.6-8.5); Neutrophils Absolute Auto 6.1 K/mm3 (1.3-6.7); Neutrophils Percent Auto 62.3 % (45.5-73.1); Platelet Count Result 341 k/mm3 (150-375); Red Blood Count 4.02 M/mm3 (4.2-5.4); Red Cell Distribution Width 17.1 % (11.5-14.5); White Blood Count 9.8 K/mm3 (4.5-10.0)
[2020-05-10 06:10] LABS: Alanine Aminotransferase 49 U/L (4-35); Alkaline Phosphatase 85 U/L (38-126); Anion Gap 10 mmol/L (8-16); Aspartate Amino Transferase 45 U/L (14-36); Bilirubin,Total 0.3 mg/dL (0.2-1.3); Blood Urea Nitrogen 19 mg/dL (7-17); Calcium 9.8 mg/dL (8.4-10.2); Carbon Dioxide 30 mmol/L (22-30); Chloride 101 mmol/L (98-107); Estimated CRCL calculation 68 ml/min; Estimated Glomerular Filt Rate > 60; Glucose 251 mg/dL (65-105); Phosphorus 4.5 mg/dL (2.5-4.5); Potassium 3.6 mmol/L (3.4-5.0); Sodium 141 mmol/L (137-145)
[2020-05-10] MEDS: METOCLOPRAMIDE HCL 10 MG TABLET FEED TUBE ×4 (06:33→20:37)
[2020-05-10] MEDS: LANSOPRAZOLE ORAL SUSP 30 MG/10 ML ORAL.SUSP FEED TUBE ×2 (09:18→17:47)
[2020-05-10] MEDS: ENOXAPARIN 40 MG/0.4 ML SYRINGE SUB-Q (09:19)
[2020-05-10] MEDS: ASCORBIC ACID 500 MG TABLET FEED TUBE (09:20)
[2020-05-10] MEDS: FAMOTIDINE 20 MG TABLET FEED TUBE (09:20)
[2020-05-10] MEDS: MIDODRINE HCL 10 MG TABLET FEED TUBE ×3 (09:20→17:47)
[2020-05-10] MEDS: FUROSEMIDE 20 MG TABLET FEED TUBE (09:21)
[2020-05-10] MEDS: LACTULOSE 20 GM/30 ML UDC FEED TUBE (09:21)
[2020-05-10] MEDS: EUCERIN CREAM 120 GM JAR 1 APPLIC TOPICAL ×2 (09:22→17:46)
[2020-05-10 11:39] LABS: Glucose Point of Care 170 (65-105)
--- NOTE | 2020-05-10 12:06 | PM.IMPN ---
Progress Note: A&P Assessment and Plan (1) Acute metabolic encephalopathy: Code(s): G93.41 - Metabolic encephalopathy Status: Acute Assessment and Plan: Acute on chronic encephalopathy. Etiology of the acute process unclear. UTI ruled out. Could be related to dehydration and/or hyponatremia but these issues are resolved. No new medications. The patient became more talkative after receiving IV fluids. COVID negative x2. Repeat CXR showing left basilar airspace disease possibly atelectasis. WBC normal and no fevers. BCx remain negative. Electrolytes normal. Follow clinically. Check MRI brain. (2) Acute hypernatremia: Code(s): E87.0 - Hyperosmolality and hypernatremia Status: Acute Assessment and Plan: Sodium up to 153 but has improved with IV fluids. [place] related to needing more free H2O. Sodium is normal today. Follow. 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 Was on Levemir on home med list but now on Lantus. Glucose reviewed on 05/10 Glucose better controlled. Continue Accu-Cheks every 6 hours with sliding scale insulin. Hypoglycemia protocol available as needed. Advance Lantus again (4) Hypokalemia: Code(s): E87.6 - Hypokalemia Status: Acute Assessment and Plan: Potassium remains normal today. Resolved. (5) Asymptomatic bacteriuria: Code(s): R82.71 - Bacteriuria Status: Acute Assessment and Plan: UTI ruled out. UCx growing VRE but felt to be a contaminant. Blood cultures remaining negative. Abx stopped. Appreciate ID input. (6) DVT prophylaxis: Code(s): Z29.9 - Encounter for prophylactic measures, unspecified Status: Acute Assessment and Plan: Lovenox Subjective Date/time seen: 05/10/20 12:06 Interval history: Date of service 05/10 75yo female with chronic encephalopathy and dysphagia with chronic GTube here for altered mental status. Was noted to be coughing yesterday but not as much today per staff. No issues overnight. Patietn alert but nonverbal and thus unable to provide hx Review of Systems Review of Systems: ROS unobtainable: Yes unobtainable due to mental status Exam Narrative: Exam Narrative: AF 97.3 126/46 88 18 92% ra Gen - NARD with HOB elevated. Chest - lungs clear anteriorly and in the flanks to quiet respirations. nml RR CV - RRR S1/S2 Abd - Soft, ND, +BS, GTube site clean and dry - Hodge secured draining clear yellow urine Ext - No pedal edema Neuro - awake and more alert. nonverbal. does not follow commands. is attentive to examiner Skin - Warm and dry Objective Data Vital Signs Vital Signs: Vital Signs - 24 hr 05/09/20 13:30 05/09/20 13:41 05/09/20 14:00 Temperature 97.8 F Pulse Rate 88 89 96 Respiratory Rate 18 18 18 Blood Pressure 110/54 L Pulse Oximetry 94 05/09/20 20:40 05/09/20 20:50 05/09/20 22:00 Temperature 97.6 F Pulse Rate 96 93 99 Respiratory Rate 18 18 18 Blood Pressure 115/46 L Pulse Oximetry 91 94 05/10/20 02:17 05/10/20 02:27 05/10/20 05:05 Temperature 97.3 F L Pulse Rate 92 91 95 Respiratory Rate 18 18 18 Blood Pressure 126/46 L Pulse Oximetry 93 05/10/20 08:16 05/10/20 09:22 Temperature Pulse Rate 88 Respiratory Rate 18 18 Blood Pressure Pulse Oximetry 92 Intake/Output Intake/Output: Intake & Output 05/07/20 05/08/20 05/09/20 05/10/20 23:59 23:59 23:59 23:59 Intake Total 2071 500 3202 0 Output Total 3450 2450 1400 600 Balance -1379 -1950 1802 -600 Meds/Results Medications: Active Medications Generic Name Dose Route Start Last Admin Trade Name Freq PRN Reason Stop Dose Admin Albuterol 2.5 mg 05/07/20 20:00 05/10/20 08:13 Albuterol Sulfate Neb 2.5 Mg/0.5 Ml Inh INHALATION
[2020-05-10 17:49] LABS: Glucose Point of Care 198 (65-105)
[2020-05-10] MEDS: INSULIN GLARGINE (*BKC) 100 UNITS/ML 18 UNITS SUB-Q (20:38)
[2020-05-10 22:13] LABS: Glucose Point of Care 190 (65-105)
[2020-05-11] VITALS (8 sets, daily range): BP systolic 103–127; BP diastolic 53–56; PULSE 73–97; RESP 15–20; TEMP 36.3–36.4; O2SAT 90–99; BMI 11.0
[2020-05-11] MEDS: guaiFENesin 200 MG/10 ML UDC FEED TUBE ×4 (00:31→12:41)
[2020-05-11 00:47] LABS: Glucose Point of Care 172 (65-105)
[2020-05-11] MEDS: ALBUTEROL SULFATE NEB 2.5 MG/0.5 ML INH INHALATION ×3 (01:54→14:30)
[2020-05-11] MEDS: IPRATROPIUM BR 0.02% INH SOLN 0.5 MG/2.5 ML VIAL INHALATION ×3 (01:54→14:30)
[2020-05-11] MEDS: INSULIN ASPART (*BKC) 100 UNITS/ML SUB-Q (05:46)
[2020-05-11 05:49] LABS: Glucose Point of Care 203 (65-105)
[2020-05-11] MEDS: METOCLOPRAMIDE HCL 10 MG TABLET FEED TUBE ×2 (06:32→11:38)
[2020-05-11] MEDS: EUCERIN CREAM 120 GM JAR 1 APPLIC TOPICAL (09:15)
[2020-05-11] MEDS: ENOXAPARIN 40 MG/0.4 ML SYRINGE SUB-Q (09:15)
[2020-05-11] MEDS: FAMOTIDINE 20 MG TABLET FEED TUBE (09:15)
[2020-05-11] MEDS: FUROSEMIDE 20 MG TABLET FEED TUBE (09:15)
[2020-05-11] MEDS: LACTULOSE 20 GM/30 ML UDC FEED TUBE (09:15)
[2020-05-11] MEDS: LANSOPRAZOLE ORAL SUSP 30 MG/10 ML ORAL.SUSP FEED TUBE (09:15)
[2020-05-11] MEDS: MIDODRINE HCL 10 MG TABLET FEED TUBE ×2 (09:15→12:41)
[2020-05-11] MEDS: ASCORBIC ACID 500 MG TABLET FEED TUBE (09:15)
[2020-05-11 12:07] LABS: Glucose Point of Care 182 (65-105)
--- NOTE | 2020-05-11 14:52 | PM.DS ---
DS: Admitting Diagnosis Admitting Diagnosis Admitting Diagnosis: Confusion DS: Discharge Diagnosis Discharge Diagnosis (1) Acute metabolic encephalopathy: Code(s): G93.41 - Metabolic encephalopathy Status: Acute Assessment and Plan: Acute on chronic encephalopathy. Etiology of the acute process unclear. UTI ruled out. Could be related to dehydration and/or hyponatremia but these issues are resolved. No new medications. The patient became more talkative after receiving IV fluids. COVID negative x2. Repeat CXR showing left basilar airspace disease possibly atelectasis. WBC normal and no fevers. BCx remain negative. Electrolytes normal now. MRI brain showing no acute findings. (2) Acute hypernatremia: Code(s): E87.0 - Hyperosmolality and hypernatremia Status: Acute Assessment and Plan: Sodium up to 153 but has improved with IV fluids. [place] related to needing more free H2O. Sodium is normal now. 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 Was on Levemir on home med list but changed to Lantus. Glucose monitored closely. Glucose better controlled. We monitored Accu-Cheks every 6 hours with sliding scale insulin. Hypoglycemia protocol was available as needed. (4) Hypokalemia: Code(s): E87.6 - Hypokalemia Status: Acute Assessment and Plan: Potassium 3.3 but remains normal today. Resolved. (5) Asymptomatic bacteriuria: Code(s): R82.71 - Bacteriuria Status: Acute Assessment and Plan: UTI ruled out. UCx growing VRE but felt to be a contaminant. Blood cultures remaining negative. Abx stopped. Appreciate ID input. DS: Summary Hospital Course Reason for hospitalization: 75yo female with chronic encephalopathy here for confusion. Please see H&P for details. Hospital Course: Please see above for details of hospital coarse. Status at Discharge Cognitive/behavioral status at discharge: Patient stable for discharge Time Spent with Patient Time attestation: Total time spent providing and/or coordinating discharge services: 38 minutes Time spent: Greater than 30 minutes Specific discharge activities: Discussion with family Exam Narrative: Exam Narrative: AF 97.5 127/53 73 16 90% ra Gen - NARD with HOB elevated. Chest - lungs clear anteriorly. nml RR CV - RRR S1/S2 Abd - Soft, ND, +BS, GTube site clean and dry - Hodge secured draining clear yellow urine Ext - No pedal edema Neuro - awake and more alert. nonverbal. does not follow commands. is attentive to examiner. mumbled speech Skin - Warm and dry DS: Data Data Completed and Pending Labs on day of discharge: Labs from last 24 hours 05/11/20 05/11/20 05/11/20 11:34 05:44 00:29 POC Capillary Glucose 182 H 203 H 172 H 05/10/20 05/10/20 20:36 17:44 POC Capillary Glucose 190 H 198 H Discharge Plan Discharge Attending physician on discharge: Jameel Pabon Consulting providers: [facility] Discharging Clinician: Jameel Pabon Anticipated Discharge Date/Time: 05/11/20 15:04 Patient Disposition: NH Group Home/Asst Living Activity: as tolerated Diet: tube feeding Discharge Instructions: Patient is strict tube feeding diet. Nothing by mouth. Routine Hodge care. Change Hodge every 4 weeks. Last changed on 05/04/2020. Routine G-tube care. Okay to use oxygen as needed to keep saturations above 90%. Check pulse oximeter reading with vital signs. Please re-evaluate patient to see if she is appropriate for physical and occupational therapy. Check BMP twice a week on Friday and . Results to house doctor. Patient Instructions: Antibiotic Form, Hodge Catheter Placement and Care (DC), Hypernatremia (DC), Encephalopath
--- NOTE | 2020-05-12 09:35 | PC.NURSE ---
call from [facility], they are requesting order clarification for tube feeding diet and water flushes, I sent a written order per their request as a telephone order from Dr Pabon, I did contact Dr Pabon and let him know I was sending the order
== END 2020-05-11 18:10 | DRG 640 ==
LOC: ANHED 13:54 → ANH2MED 14:31
PROVIDERS: Family Medicine; Nurse Practitioner; Admitting Provider Internal Medicine; Emergency Provider Emergency Medicine; Visit Provider Internal Medicine
DX: E86.0 Dehydration (principal); G93.41 Metabolic encephalopathy; E87.0 Hyperosmolality and hypernatremia; E11.9 Type 2 diabetes mellitus without complications; E87.6 Hypokalemia; R82.71 Bacteriuria; R13.10 Dysphagia, unspecified; K21.9 Gastro-esophageal reflux disease without esophagitis; Z20.822 Contact with and (suspected) exposure to COVID-19; Z86.16 Personal history of COVID-19; Z93.1 Gastrostomy status; Z87.442 Personal history of urinary calculi; Z87.891 Personal history of nicotine dependence; Z79.4 Long term (current) use of insulin
CPT/HCPCS: 36415; 70450; 70551; 71045; 71046; 80048; 80053; 81001; 81003; 82565; 82948; 83036; 83605; 83615; 83735; 84100; 84443; 85025; 85027; 85055; 87040; 87077; 87086; 87088; 87186; 93005; 94640; 96361; 96365; 97110; 97162; 97165; 97530; 97535; 99285; A9270; C9803; G0378; J0696; J1650; J1815; J3370; J7120; U0003; U0005

== ENCOUNTER 2020-06-10 19:47 | Inpatient (IN) | payer MEDICARE, MEDICAID, SELFPAY ==
--- NOTE | ~2020-06-10 | CT_ITS ---
EXAMINATION: CT abdomen pelvis wo con DATE: 06/10/2020 20:28 INDICATION: Nausea, vomiting, diarrhea. Bowel obstruction. TECHNIQUE: Computed tomography (CT) of the abdomen and pelvis was performed without intravenous contr ast. Automated exposure control and iterative reconstruction technique were employed. Exam dose: 987 .87 mGy-cm total exam DLP. COMPARISON: 03/16/2020 CT chest abdomen pelvis FINDINGS: Bilateral primarily dependent lower lobe atelectasis. Normal heart size. No pericardial or pleural effusion. Small sliding hiatal hernia. Approximately 2 x 2.6 cm stable septated right hepatic cyst. 4 mm right hepatic cyst. Stable 1.3 cm hyperdense left renal cyst. No urinary tract calculus or hydroureteronephrosis. There is calcification of the abdominal aorta but no aortic aneurysm. No intraperitoneal or retroperi toneal or pelvic mass lesion or adenopathy or ascites. There is a gastrostomy tube in the stomach. Normal appendix. Diverticulosis of left and right colon; no CT evidence of diverticulitis. No bowel obstruction, bowel wall thickening, pneumatosis or intraperitoneal free air. Multiple calcified uterine fibroids. The urinary bladder is evacuated; there is a Hodge catheter with in the bladder lumen. Relative lucency of the right T12 pedicle and posterolateral vertebral body; lytic lesion is suggeste d. Consider radionuclide bone scan. Moderate degenerative disease at L5-S1. IMPRESSION: Gastrostomy tube in stomach Small sliding hiatal hernia 2 x 2.6 cm septated right hepatic cyst and 4 mm hepatic cyst 1.3 cm hyperdense left renal cyst Diverticulosis of left and right colon Relative lucency at T12 right pedicle and posterolateral vertebral body; consider radionuclide bone s can Reviewed, dictated and finalized at [facility]. Reviewed, dictated and finalized at [facility]. IMPRESSION: Gastrostomy tube in stomach Small sliding hiatal hernia 2 x 2.6 cm septated right hepatic cyst and 4 mm hepatic cyst 1.3 cm hyperdense left renal cyst Diverticulosis of left and right colon Relative lucency at T12 right pedicle and posterolateral vertebral body; consid er radionuclide bone scan
--- NOTE | ~2020-06-10 | XR_ITS ---
XR chest 1V portable DATE: 06/10/2020 20:56 INDICATION: Vomiting TECHNIQUE: Portable upright AP chest on 06/10/2020 at 2057 hours COMPARISON: 05/10/2020 AP and lateral chest FINDINGS: Diffuse osteopenia. Heart size is not optimally evaluated on AP projection because of magnification. Mild infiltrate or atelectasis is suggested at the left lung base; otherwise no pulmonary pulmonary i nfiltrate or consolidation, pleural effusion or pulmonary vascular congestion or pneumothorax is dete cted. IMPRESSION: Mild infiltrate or atelectasis at the left lung base Reviewed, dictated and finalized at [facility].
--- NOTE | ~2020-06-10 | XR_ITS ---
EXAMINATION: XR chest 1V portable EXAM DATE: 06/12/2020 18:59 INDICATION: Hypoxia. Indeterminate T12 right pedicular lesion. TECHNIQUE: Portable AP frontal chest x-ray was obtained. Comparison is made to prior examination from 06/10/2020. FINDINGS: Some ill-defined bibasilar indistinct reticulation, probably the atelectasis suspected on C T 2 days ago. No confluent consolidation, pneumothorax or pleural effusion suspected. Cardiomediastin al silhouette is normal. There are mild bony degenerative changes. IMPRESSION: Ill-defined basilar reticulation probably atelectasis. Reviewed, dictated and finalized at [facility].
--- NOTE | ~2020-06-10 | MR_ITS ---
EXAMINATION: MR lumbar spine wo con DATE: 06/14/2020 09:48 INDICATION: Right pedicle lesion at T12. TECHNIQUE: Magnetic resonance imaging (MRI) of the lumbar spine was performed without intravenous con trast. Sequences included sagittal T2-weighted FSE, sagittal T2-weighted FS FSE, sagittal T1-weighted FSE, axial T2-weighted FSE, axial fluid sensitive FSE STIR, axial T1-weighted FSE and axial T1-weigh linda FS FSE. COMPARISON: None FINDINGS: Alignment is normal. Vertebral body heights are normal. Minimal increased fluid signal associated wit h the previously noted lesion at the base of the right pedicle of T12 which demonstrates saturated do uble T1 hyperintense fat signal on MRI and corresponding fat attenuation on CT which would be most co nsistent with a hemangioma. Otherwise normal marrow signal with no other bone lesions identified. T12 -L1 disc is normal. There is disc desiccation with minimal to mild disc height loss at the remaining levels from T11-T12 through L5-S1 most prominent and with associated annular fissures at L3-L4 and L5 -S1. The conus medullaris terminates at L1. There is normal signal in the caudal spinal cord. 1.4 cm T2 hypointense, T1 hyperintense proteinaceous/hemorrhagic cyst in the left kidney. Paravertebral soft tissues are otherwise unremarkable. The following disc levels are specifically discussed: T12-L1: The disc does not extend beyond the endplate margin. There is mild bilateral facet joint oste oarthritis. There is no neural foraminal stenosis. There is no central canal stenosis. L1-L2: Disc is minimally bulging. There is mild bilateral facet joint osteoarthritis. There is no damon ral foraminal stenosis. There is no central canal stenosis. L2-L3: Disc is only bulging most prominent at the foraminal zones. There is mild bilateral facet join t osteoarthritis. There is mild bilateral neural foraminal stenosis. There is no central canal stenos is. L3-L4: Disc is mildly bulging with annular fissure. There is mild to moderate bilateral facet joint o steoarthritis. There is mild bilateral neural foraminal stenosis. There is minimal central canal sten osis. L4-L5: Disc is mildly bulging. There is moderate right and mild to moderate left facet joint osteoart hritis. There is mild bilateral neural foraminal stenosis. There is minimal central canal stenosis. L5-S1: Disc is mildly bulging with annular fissure. There is mild to moderate bilateral facet joint o steoarthritis. There is mild bilateral neural foraminal stenosis. There is minimal central canal sten osis. IMPRESSION: 1. Small lesion at the base of the right pedicle of T12 with MRI signal characteristics and CT attenu ation demonstrating fat most consistent with a hemangioma. 2. Mild lumbar and lower thoracic spondylosis. Reviewed, dictated and finalized at [facility]. IMPRESSION: 1. Small lesion at the base of the right pedicle of T12 with MRI signal charact eristics and CT attenuation demonstrating fat most consistent with a hemangioma . 2. Mild lumbar and lower thoracic spondylosis.
--- NOTE | ~2020-06-10 | CT_ITS ---
EXAMINATION: CT brain wo con DATE: 06/10/2020 20:28 INDICATION: Altered mental state. Nausea, vomiting. TECHNIQUE: Computed tomography (CT) of the head was performed without intravenous contrast. The mA wa s adjusted according to patient size. Iterative reconstruction technique was employed. Exam dose: 60 5.33 mGy-cm total exam DLP. COMPARISON: 02/22/2020 MRI brain/brainstem To CT brain 05/10/2020 MRI brain/brainstem FINDINGS: Status post right frontal temporal craniotomy. 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 Status post right frontal lobe resection. 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 Prominent diminished att enuation of the cerebral white matter in the left frontal area, possibly due to postoperative radiati on change. There is likely some cerebral white matter diminished attenuation secondary to small vesse l ischemic changes. Cerebral atherosclerosis is noted with prominent calcification noted particularly at the carotid siphon internal carotid arteries. No midline shift or acute mass effect is noted. No subdural or epidural hematoma. No other intracrani al hemorrhage is identified. A fluid level is again noted in the right sphenoid sinus, unchanged. Included paranasal sinuses and m astoid air cells are otherwise unremarkable. IMPRESSION: Little overall change since 05/04/2020 Reviewed, dictated and finalized at [facility]. Reviewed, dictated and finalized at [facility].
[2020-06-10 19:51] VITALS: BP 115/78; PULSE 120; RESP 22; TEMP 36.7; O2SAT 100
--- NOTE | 2020-06-10 20:04 | ECG_ITS ---
Measurements Intervals [place] Rate: 107 P: 67 IA: 163 QRS: -63 QRSD: 82 T: 57 QT: 333 QTc: 446 Interpretive Statements SINUS TACHYCARDIA LOW QRS VOLTAGE- DIFFUSE LEADS LEFT ANTERIOR FASCICULAR BLOCK CONSIDER INFERIOR INFARCT, AGE INDETERMINATE BASELINE ARTIFACT- I, III, AVR, AVL ABNORMAL ECG Electronically Signed On 06-11-2020 7:31:36 CDT by Bryon Reyes D.O.
--- NOTE | 2020-06-10 20:11 | ED.GENADULT ---
HPI - General Adult General Chief complaint: Nausea/Vomiting/Diarrhea <Judson Aldaan PA-C - Last Filed: 06/10/20 21:38> Stated complaint: elevated HR (112)/ n/v <YOSI Vidal Last Filed: 06/10/20 21:38> Time Seen by Provider: 06/10/20 20:01 <YOSI Vidal Last Filed: 06/10/20 21:38> Source: patient <YOSI Vidal Last Filed: 06/10/20 21:38> Mode of arrival: ambulatory <YOSI Vidal Last Filed: 06/10/20 21:38> Limitations: no limitations <YOSI Vidal Last Filed: 06/10/20 21:38> History of Present Illness HPI narrative: Patient is a 75-year-old female who presents from [facility] after having episode of emesis patient has history of sepsis aspiration pneumonia patient vomited after her tube feeding patient presents tachycardic she is nonverbal does not vocalize to verbal stimuli does not answer questions patient was sent in due to her emesis and her prior occurrences of sepsis and aspiration pneumonia patient with multiple comorbidities to include diabetes patient also recently had hypernatremia <YOSI Vidal Last Filed: 06/10/20 21:38> Related Data Home medications: Home Medications Medication Instructions Recorded Confirmed Lactobacillus acidophilus 10 mg FEEDING TUBE BID 10/24/19 05/04/20 [Acidophilus] omeprazole 20 mg FEEDING TUBE BID 01/28/20 05/04/20 ascorbic acid (vitamin C) [Vitamin 500 mg FEEDING TUBE DAILY 03/16/20 05/04/20 C] promethazine 25 mg UT Q6H PRN 03/16/20 05/04/20 cholecalciferol (vitamin D3) 1,250 mcg FEEDING TUBE WEEKLY 03/17/20 05/04/20 furosemide 20 mg FEEDING TUBE DAILY 03/17/20 05/04/20 lactulose 20 g FEEDING TUBE DAILY 03/17/20 05/04/20 aloe vera 1 applic TOPICAL BID 05/04/20 05/04/20 famotidine 20 mg FEEDING TUBE DAILY 05/04/20 05/04/20 <YOSI Vidal Last Filed: 06/10/20 21:38> Allergies/adverse reactions: Allergies Allergy/AdvReac Type Severity Reaction Status Date / Time shellfish derived Allergy Unknown Hives Verified 05/04/20 15:53 codeine Allergy Unknown Verified 05/04/20 15:53 erythromycin base Allergy Unknown Verified 05/04/20 15:53 hydrocodone Allergy Unknown Verified 05/04/20 15:53 ibuprofen Allergy Unknown Verified 05/04/20 15:53 Iodinated Contrast Media Allergy Unknown Verified 05/04/20 15:53 meperidine Allergy Unknown Verified 05/04/20 15:53 mepivacaine [From Carbocaine] Allergy Unknown Verified 05/04/20 15:53 propoxycaine Allergy Unknown Verified 05/04/20 15:53 propoxyphene Allergy Unknown Verified 05/04/20 15:53 Sulfa (Sulfonamide Allergy Unknown Verified 05/04/20 15:53 Antibiotics) <Judson Aldana PA-C - Last Filed: 06/10/20 21:38> Review of Systems Review of Systems: ROS unobtainable: Yes unobtainable due to medical condition <Judson Aldana PA-C - Last Filed: 06/10/20 21:38> [facility] Past Medical History Medical History: Medical History COVID-19 (~01/2020) Gastroesophageal reflux disease History of kidney stones History of urinary tract infection 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 <Judson Aldana PA-C - Last Filed: 06/10/20 21:38> Surgical History Surgical History: Surgical History History of craniotomy Right frontal lobe craniotomy with resection of oligodendroglioma. <Judson Aldana PA-C - Last Filed: 06/10/20 21:38> Family History Family History: Family History Mother Diabetes mellitus Father Lung cancer Sibling Breast cancer she has <Judson Aldana PA-C - Last Filed: 06/10/20 21:38> Social History Social History: Social History (Reviewed 06/10/20 @ 20:13 by Judson Mahajan
[2020-06-10 20:44] LABS: Alveolar/Arterial O2 Gradient 30.8 mmHg; Base Excess ABG 1.3 mEq/l (+/-2.0); Carboxyhemoglobin 0.6 % THb (0-2.0); Device NASAL CANNULA; Fractional Inspired Oxygen 36 %; HCO3 ABG 26.7 mEq/l (22.0-26.0); Methemoglobin ABG 0.2 %THb (0-1.5); Modified Allen's Test Pass; Oxygen Content ABG 18.5 %vol (16.0-22.0); Oxygen Saturation ABG 99.1 % (95.0-100.0); Oxyhemoglobin 97.9 % THb (90.0-100.0); PCO2 ABG 45.7 mmHg (35.0-45.0); PO2 ABG 172.9 mmHg (80.0-100.0); Reduced Hemoglobin 1.3 %THb (0-5.0); Site Drawn LEFT RADIAL; Total Hemoglobin 13.2 g/dL (12.0-18.0); pH ABG 7.385 (7.350-7.450)
[2020-06-10] MEDS: FAMOTIDINE 20 MG/2 ML VIAL IV PUSH (20:53)
[2020-06-10] MEDS: ONDANSETRON INJ 4 MG/2 ML VIAL IV PUSH (20:53)
[2020-06-10] MEDS: SODIUM CHLORIDE 0.9% IV 1,000 ML 999 ML IV CONT ×2 (20:53→22:40)
[2020-06-10 21:02] LABS: Add Urine Microscopic? YES; Amorphous Sediment Urine Few; Appearance Urine Turbid (Clear); Bacteria Urine 4+ /hpf; Bilirubin Urine Negative (Negative); Budding Yeast Urine Present /hpf; Calcium Oxalate Crystals Urine Present /hpf; Color Urine Amber (Yellow); Glucose Urine UA Negative (Negative); Hyaline Casts Urine 20-29 /lpf; Ketones Urine Trace mg/dL (Negative); Leukocyte Esterase Ur 3+ LEU/UL (Negative); Mucus Urine Heavy /lpf; Nitrate Urine Negative (Negative); Protein Urine 2+ mg/dL (Negative); RBC Urine >75 /hpf (0-2); Specific Grav Ur 1.024 (1.001-1.035); Squamous Epithelial Cell Urine Few /hpf (Few); WBC Urine >75 /hpf
[2020-06-10 21:04] LABS: Blood Urine Negative (Negative)
[2020-06-10 21:58] LABS: Hematocrit 41.6 % (37.0-47.0); Hemoglobin 12.4 g/dL (12.0-15.0); Mean Corpuscular HGB Conc 29.8 g/dl (32-36); Mean Corpuscular Hemoglobin 25.9 pg (26-34); Mean Corpuscular Volume 86.8 fl (80-100); Mean Platelet Volume 9.5 fl (7.4-10.4); Platelet Count Result 326 k/mm3 (150-375); Red Blood Count 4.79 M/mm3 (4.2-5.4); Red Cell Distribution Width 16.7 % (11.5-14.5); White Blood Count 14.1 K/mm3 (4.5-10.0)
[2020-06-10 22:07] LABS: Prothrombin Time 13.5 Seconds (11.1-14.7)
[2020-06-10 22:08] LABS: Partial Thromboplastin Time 28.6 SECONDS (22.3-36.8)
[2020-06-10 22:10] LABS: Lactic Acid Reflex 2.3 mmol/L (0.7-2.1)
[2020-06-10 22:14] LABS: Alanine Aminotransferase 64 U/L (4-35); Albumin Level 4.3 g/dL (3.5-5.1); Alkaline Phosphatase 93 U/L (38-126); Anion Gap 12 mmol/L (8-16); Aspartate Amino Transferase 58 U/L (14-36); Bilirubin,Total 0.3 mg/dL (0.2-1.3); Blood Urea Nitrogen 21 mg/dL (7-17); CRP 1.5 mg/dL (<1.0); Calcium 9.4 mg/dL (8.4-10.2); Carbon Dioxide 26 mmol/L (22-30); Chloride 107 mmol/L (98-107); Estimated CRCL calculation 67 ml/min; Estimated Glomerular Filt Rate > 60; Glucose 217 mg/dL (65-105); Lipase 151 U/L (23-300); Magnesium 1.8 mg/dL (1.6-2.3); Potassium 4.2 mmol/L (3.4-5.0); Sodium 145 mmol/L (137-145)
[2020-06-10 22:15] VITALS: BP 107/63; PULSE 108; RESP 18; O2SAT 99
[2020-06-10 22:17] LABS: Anisocytosis 2+ (NORMAL); Band Neutrophils Percent 12 % (0-6); Eosinophils Absolute Manual 0.28 K/mm3 (0.02-0.5); Eosinophils Percent Manual 2 % (0-4); Lymphocytes Absolute Manual 1.55 K/mm3 (1.1-4.5); Monocytes Absolute Manual 0.84 K/mm3 (0.1-0.90); Monocytes Percent Manual 6 % (3-9); Neutrophils Absolute Manual 11.42 K/mm3 (1.7-7.2); Neutrophils Percent Manual 69 % (46-73); Platelet Estimate Adequate (Adequate); Total Cells Counted 100
[2020-06-10 22:18] LABS: Hypochromasia 1+ (NORMAL)
[2020-06-10 22:21] LABS: Beta-Hydroxybutyrate/Acetoacetate 0.51 mmol/L (0.02-0.27)
[2020-06-10 23:38] VITALS: BP 118/75; PULSE 99; RESP 18; O2SAT 100
[2020-06-11] VITALS (11 sets, daily range): BP systolic 107–122; BP diastolic 59–67; PULSE 73–115; RESP 16–20; TEMP 36.4–36.9; O2SAT 93–99; BMI 25.7
--- NOTE | 2020-06-11 00:37 | PC.NURSE ---
This patient, Linette Vásquez, was admitted to [facility] Surg Room 325-01. Patient/family oriented to hospital policies and general routines including ID bracelet, bed and alarms, visiting hours, pain management, procedures, bathroom and other care routines, personal items, smoking policy, room service/diet, and visiting hours. Information on how to activate the Rapid Response Team has been discussed. Patient/Family are encouraged to report perceived risks to care and to ask questions if they do not understand what they are told or what they should do.
[2020-06-11 00:55] LABS: Reflex Lactic Acid Yes or No Add Lactic
[2020-06-11] MEDS: SODIUM CHLORIDE 0.9% IV 1,000 ML 125 ML IV CONT (01:35)
[2020-06-11 01:45] LABS: Lactic Acid 2.5 mmol/L (0.7-2.1)
--- NOTE | 2020-06-11 02:18 | PM.IMHP ---
H&P: HPI History of Present Illness Date/Time: 06/11/20 02:18 Chief Complaint: Vomiting x1 Narrative: 75-year-old female with past medical history of grade 2 diastolic dysfunction, dysphagia following COVID-19 infection 01/28/2020 through 02/25/2020 resulting in G-tube placement, and chronic Hodge catheter who presented to the ER from [facility] via EMS after having 1 episode of emesis at the intermediate. Patient was readmitted to the hospital in March 16 through March 28March due to sepsis and aspiration pneumonia. At that time the patient's G-tube feeds were changed to continuous feeds 1.5 at 45 mL an hour as he seemed to tolerate continuous feeds better. She was again hospitalized 05/04/2020 through 05/11/2020, metabolic encephalopathy, and bacteriuria with VRE not felt to be acute infection). At that time the patient improved after IV fluid hydration and was discharged back to nursing facility. The patient had an emesis while receiving her tube continuous tube feeds of 55 mL an hour. Given her history of prior aspiration and the fact that the patient was tachycardic the family requested the patient be sent to the ER for evaluation. In the ER the patient was noted to be in sinus tachycardia. She received 2 L of normal saline bolus but remain tachycardic. Her chest x-ray did not demonstrate any acute process. She has a chronic indwelling Hodge catheter in place and UA obtained was suggestive of UTI. The patient also had leukocytosis with bandemia. She has been afebrile. Patient is unable to provide any history and is largely nonverbal. She was given empiric antibiotic therapy with Rocephin in the ER. The patient's Hodge catheter was exchanged in the ER. Blood cultures and urine cultures have been obtained. 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 Surgical History Surgical History (Updated 06/11/20 @ 02:50 by Malathi Bliss DO) Gastrointestinal tube in situ (~02/2020) History of craniotomy Right frontal lobe craniotomy with resection of oligodendroglioma. Family History Family History Mother Diabetes mellitus Father Lung cancer Sibling Breast cancer she has Social History Social History Social History: The patient is currently a resident at [facility]. She smoked for approximately 46 years and quit in October 2017. No mention of alcohol or illicit substance abuse. Her niece, Julia Phelps, is her healthcare power of pearl glue operator. The patient is a full code. Years smoked: 46 Smoking status: Former smoker Second hand tobacco smoke exposure: No Alcohol intake: never Substance use: never Substance use type: does not use Gender identity (if verbalized by the patient): Female Spiritual care concerns: No Meds Home Medications and Allergies Home Medications Medication Instructions Recorded Confirmed Type Lactobacillus acidophilus 10 mg FEEDING TUBE BID 10/24/19 06/11/20 History [Acidophilus] omeprazole 20 mg FEEDING TUBE BID 01/28/20 06/11/20 History midodrine 10 mg FEEDING TUBE TID #90 tablet 02/25/20 06/11/20 Rx ascorbic acid (vitamin C) [Vitamin 500 mg FEEDING TUBE DAILY 03/16/20 06/11/20 History C] promethazine 25 mg RECTAL Q6H PRN 03/16/20 06/11/20 History cholecalciferol (vitamin D3) 1,250 mcg FEEDING TUBE WEEKLY 03/17/20 06/11/20
[2020-06-11] MEDS: NITROFURANTOIN MACROCRYSTALS 50 MG CAP 100 MG FEED TUBE ×3 (04:11→18:51)
[2020-06-11] MEDS: INSULIN GLARGINE (*BKC) 100 UNITS/ML 20 UNITS SUB-Q ×2 (04:16→21:15)
[2020-06-11 04:46] LABS: Glucose Point of Care 168 (65-105)
[2020-06-11 06:03] LABS: Basophils Percent Auto 0.4 % (0.2-1.2); Eosinophils Absolute Auto 0.2 K/mm3 (0-0.3); Eosinophils Percent Auto 2.7 % (0-4.4); Hematocrit 32.7 % (37.0-47.0); Immature Granulocyte Absolute 0.05 K/mm3 (0.00-0.031); Immature Granulocyte Percent A 0.6 % (0-0.5); Lymphocytes Absolute Auto 1.84 K/mm3 (0.9-3.2); Lymphocytes Percent Auto 20.5 % (18.3-44.2); Mean Corpuscular HGB Conc 30.6 g/dl (32-36); Mean Corpuscular Hemoglobin 26.1 pg (26-34); Mean Corpuscular Volume 85.4 fl (80-100); Mean Platelet Volume 9.8 fl (7.4-10.4); Monocytes Absolute Auto 0.5 K/mm3 (0.1-0.6); Monocytes Percent Auto 5.8 % (2.6-8.5); Neutrophils Absolute Auto 6.3 K/mm3 (1.3-6.7); Platelet Count Result 283 k/mm3 (150-375); Red Blood Count 3.83 M/mm3 (4.2-5.4); Red Cell Distribution Width 16.7 % (11.5-14.5)
[2020-06-11 06:09] LABS: Anion Gap 7 mmol/L (8-16); Blood Urea Nitrogen 17 mg/dL (7-17); Calcium 8.3 mg/dL (8.4-10.2); Carbon Dioxide 24 mmol/L (22-30); Chloride 113 mmol/L (98-107); Estimated CRCL calculation 55 ml/min; Estimated Glomerular Filt Rate > 60; Glucose 163 mg/dL (65-105); Lactic Acid Reflex 2.2 mmol/L (0.7-2.1); Potassium 4.2 mmol/L (3.4-5.0); Sodium 144 mmol/L (137-145)
[2020-06-11] MEDS: LANSOPRAZOLE ORAL SUSP 30 MG/10 ML ORAL.SUSP FEED TUBE (07:26)
[2020-06-11] MEDS: MIDODRINE HCL 10 MG TABLET FEED TUBE ×3 (08:55→16:45)
[2020-06-11] MEDS: LACTULOSE 20 GM/30 ML UDC FEED TUBE (12:56)
[2020-06-11] MEDS: FAMOTIDINE 20 MG TABLET FEED TUBE (12:56)
[2020-06-11] MEDS: ASCORBIC ACID 500 MG TABLET FEED TUBE (12:56)
[2020-06-11] MEDS: ACIDOPHILUS/BULGARICUS CHEWABLE TABLET 1 TABLET FEED TUBE ×2 (12:56→16:49)
[2020-06-11] MEDS: INSULIN ASPART (*BKC) 100 UNITS/ML 15 UNITS SUB-Q (13:47)
[2020-06-11 14:02] LABS: Glucose Point of Care 149 (65-105)
--- NOTE | 2020-06-11 15:49 | PM.IMPN ---
Progress Note: A&P Assessment and Plan (1) Sepsis: Code(s): A41.9 - Sepsis, unspecified organism Status: Acute Assessment and Plan: Patient presents with n/v with tachycardia noted on admission. WBC 14K but now normal. Possibly related to UTI. CXR not consistent with PNA. Follow up on culture results. Continue abx. Tolerating TF. Stop IV fluids (2) Catheter-associated urinary tract infection: Qualifiers: Encounter type: initial encounter Indwelling urinary catheter type: indwelling urethral catheter Qualified Code(s): T83.511A - Infection and inflammatory reaction due to indwelling urethral catheter, initial encounter; N39.0 - Urinary tract infection, site not specified Code(s): T83.511A - Infection and inflammatory reaction due to indwelling urethral catheter, initial encounter; N39.0 - Urinary tract infection, site not specified Status: Acute Assessment and Plan: As above. WBC normal today. Cx pending. Continue IV abx for now. (3) Acute metabolic encephalopathy: Code(s): G93.41 - Metabolic encephalopathy Status: Acute Assessment and Plan: Resolved. Patient well known to the medical service and her mental status is actually better than prior admissions. Follow (4) G tube feedings: Code(s): Z93.1 - Gastrostomy status Status: Acute Assessment and Plan: Stable. Continue continuous feedings. (5) Insulin dependent type 2 diabetes mellitus: Code(s): E11.9 - Type 2 diabetes mellitus without complications; Z79.4 - skilled nursing (current) use of insulin Status: Acute Assessment and Plan: A1c 7.8 in April. The patient's blood glucose was reviewed on 06/11/20 Glucose remains well controlled. Will continue AccuCheks covering with sliding scale but change to Q6H. Hypoglycemia protocol available as needed. Continue Lantus. Change Novolog to q6 dosing. (6) DVT prophylaxis: Code(s): Z29.9 - Encounter for prophylactic measures, unspecified Status: Acute Assessment and Plan: Lovenox Subjective Date/time seen: 06/11/20 15:49 Interval history: 75yo female with chronic encephalopathy and dysphagia with chronic GTube here for nausea and vomiting. Patient is alert and does speak a few words but unable to provide hx. Hodge changed in ED. Exam Narrative: Exam Narrative: AF 98.2 107/59 86 16 98% ra Gen - NARD with HOB elevated. Chest - lungs clear anteriorly. nml RR CV - RRR S1/S2; Tele shwong no significant dysrhythmias Abd - Soft, ND, +BS, GTube site clean and dry - Hodge secured draining clear yellow urine Ext - No pedal edema Neuro - awake and alert. talking but nonsensical and difficult to understand Skin - Warm and dry Objective Data Vital Signs Vital Signs: Vital Signs - 24 hr 06/10/20 19:51 06/10/20 22:15 06/10/20 23:38 Temperature 98.0 F Pulse Rate 120 H 108 H 99 Respiratory Rate 22 H 18 18 Blood Pressure 115/78 107/63 118/75 Pulse Oximetry 100 99 100 06/11/20 00:00 06/11/20 00:56 06/11/20 01:00 Temperature 98.1 F 98.1 F Pulse Rate 115 H 115 H 105 H Respiratory Rate 20 20 Blood Pressure 112/67 112/67 Pulse Oximetry 96 99 06/11/20 04:00 06/11/20 06:00 06/11/20 08:00 Temperature 98.5 F Pulse Rate 102 H 97 96 Respiratory Rate 16 16 Blood Pressure 116/61 Pulse Oximetry 98 98 06/11/20 12:00 06/11/20 14:00 Temperature 98.2 F Pulse Rate 95 86 Respiratory Rate 16 Blood Pressure 107/59 L Pulse Oximetry 98 Intake/Output Intake/Output: Intake & Output 06/08/20 06/09/20 06/10/20 06/11/20 23:59 23:59 23:59 23:59 Intake Total 1150 0 Output Total 200 Balance 1150 -200 Meds/Results Medications: Active Medications Generic Name Dose Route Start Last Admin Trade Name Freq PRN Reason Stop Dose Admin Albuterol 2.5 mg 06/11/20 02:38 Albuterol Sulfate Neb 2.5 Mg/0.5 Ml Inh INHALATION Q6HRT
[2020-06-11 16:59] LABS: Glucose Point of Care 99 (65-105)
[2020-06-11] MEDS: ENOXAPARIN 40 MG/0.4 ML SYRINGE SUB-Q (18:48)
[2020-06-11 21:38] LABS: Glucose Point of Care 130 (65-105)
[2020-06-11] MEDS: WATER FOR IRRIGATION, STERILE 1,000 ML BOTTLE (22:18)
[2020-06-11] MEDS: WATER FOR IRRIGATION, STERILE 1,000 ML BOTTLE 1000 ML (22:20)
[2020-06-12] MEDS: NITROFURANTOIN MACROCRYSTALS 50 MG CAP 100 MG FEED TUBE ×4 (01:39→17:47)
[2020-06-12 01:42] LABS: Glucose Point of Care 126 (65-105)
[2020-06-12] MEDS: INSULIN ASPART (*BKC) 100 UNITS/ML 10 UNITS SUB-Q ×4 (01:43→17:47)
[2020-06-12] MEDS: INSULIN ASPART (*BKC) 100 UNITS/ML SUB-Q (01:44)
[2020-06-12 05:45] VITALS: BP 116/60; PULSE 81; RESP 18; TEMP 36.9; O2SAT 97
[2020-06-12 06:24] LABS: Glucose Point of Care 95 (65-105)
[2020-06-12 07:04] LABS: Anion Gap 5 mmol/L (8-16); Blood Urea Nitrogen 11 mg/dL (7-17); Calcium 8.7 mg/dL (8.4-10.2); Carbon Dioxide 27 mmol/L (22-30); Chloride 114 mmol/L (98-107); Estimated CRCL calculation 65 ml/min; Estimated Glomerular Filt Rate > 60; Glucose 97 mg/dL (65-105); Potassium 3.6 mmol/L (3.4-5.0); Sodium 146 mmol/L (137-145)
[2020-06-12 08:52] LABS: Glucose Point of Care 99 (65-105)
[2020-06-12] MEDS: ENOXAPARIN 40 MG/0.4 ML SYRINGE SUB-Q (09:01)
[2020-06-12] MEDS: LACTULOSE 20 GM/30 ML UDC FEED TUBE (09:01)
[2020-06-12] MEDS: LANSOPRAZOLE ORAL SUSP 30 MG/10 ML ORAL.SUSP FEED TUBE (09:01)
[2020-06-12] MEDS: FAMOTIDINE 20 MG TABLET FEED TUBE (09:03)
[2020-06-12] MEDS: MIDODRINE HCL 10 MG TABLET FEED TUBE ×3 (09:03→14:59)
[2020-06-12] MEDS: ASCORBIC ACID 500 MG TABLET FEED TUBE (09:03)
[2020-06-12] MEDS: ACIDOPHILUS/BULGARICUS CHEWABLE TABLET 1 TABLET FEED TUBE ×2 (09:03→16:32)
[2020-06-12 09:42] VITALS: O2SAT 96
[2020-06-12 09:56] VITALS: PULSE 80; RESP 16; O2SAT 96
[2020-06-12 10:41] VITALS: BMI 25.7
--- NOTE | 2020-06-12 10:46 | WPDCDIQUERY2 ---
CDI Query Clarification Request -Severe sepsis with septic shock documented on problem list. -BP MAP's all > 75. No pressors given. Please clarify if septic shock has been ruled in or ruled out. <Yaz Golden RN - Last Filed: 06/12/20 10:51>
[2020-06-12 12:11] LABS: Glucose Point of Care 137 (65-105)
[2020-06-12 14:00] VITALS: BP 121/53; PULSE 97; RESP 16; TEMP 36.9; O2SAT 97
--- NOTE | 2020-06-12 15:37 | PM.IMPN ---
Progress Note: A&P Assessment and Plan (1) Sepsis: Code(s): A41.9 - Sepsis, unspecified organism Status: Acute Assessment and Plan: Patient presents with n/v with tachycardia noted on admission. WBC 14K but now normal. Possibly related to UTI. UCx positive for EColi; BCx NGTD. CXR not consistent with PNA. Continue abx. Tolerating TF. Stil with O2 requirement. Will repeat CXR. (2) Catheter-associated urinary tract infection: Qualifiers: Encounter type: initial encounter Indwelling urinary catheter type: indwelling urethral catheter Qualified Code(s): T83.511A - Infection and inflammatory reaction due to indwelling urethral catheter, initial encounter; N39.0 - Urinary tract infection, site not specified Code(s): T83.511A - Infection and inflammatory reaction due to indwelling urethral catheter, initial encounter; N39.0 - Urinary tract infection, site not specified Status: Acute Assessment and Plan: As above. UCx growing EColi but BCx remaining negative. WBC normal today. Continue IV abx for now. Follow up with final culture results. (3) Acute metabolic encephalopathy: Code(s): G93.41 - Metabolic encephalopathy Status: Acute Assessment and Plan: Resolved. Patient well known to the medical service and her mental status is actually better than prior admissions. Follow (4) G tube feedings: Code(s): Z93.1 - Gastrostomy status Status: Acute Assessment and Plan: Stable. Continue continuous tube feedings. 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 The patient's blood glucose was reviewed on 06/12 Glucose remains well controlled. Will continue AccuCheks covering with sliding scale. Hypoglycemia protocol available as needed. Continue Lantus. Continue Novolog q6 dosing. (6) DVT prophylaxis: Code(s): Z29.9 - Encounter for prophylactic measures, unspecified Status: Acute Assessment and Plan: Lovenox Subjective Date/time seen: 06/12/20 15:37 Interval history: 75yo female with chronic encephalopathy and dysphagia with chronic GTube here for nausea and vomiting. Patient is alert and does speak a few words but unable to provide hx. Hodge changed in ED. No issues overnight Exam Narrative: Exam Narrative: AF 998.4 121/53 97 16 97% ra Gen - NARD with HOB elevated. Chest - lungs clear anteriorly. nml RR CV - RRR S1/S2 Abd - Soft, ND, +BS, GTube site clean and dry - Hodge secured draining clear yellow urine Ext - No pedal edema Neuro - awake and alert. less verbal this afternoon Skin - Warm and dry Objective Data Vital Signs Vital Signs: Vital Signs - 24 hr 06/11/20 16:00 06/11/20 20:00 06/11/20 22:00 Temperature 97.6 F Pulse Rate 86 73 83 Respiratory Rate 20 Blood Pressure 122/60 Pulse Oximetry 93 97 06/12/20 05:45 06/12/20 09:42 06/12/20 09:56 Temperature 98.4 F Pulse Rate 81 80 Respiratory Rate 18 16 Blood Pressure 116/60 Pulse Oximetry 97 96 96 06/12/20 14:00 Temperature 98.4 F Pulse Rate 97 Respiratory Rate 16 Blood Pressure 121/53 L Pulse Oximetry 97 Intake/Output Intake/Output: Intake & Output 06/09/20 06/10/20 06/11/20 06/12/20 23:59 23:59 23:59 23:59 Intake Total 1150 0 Output Total 680 200 Balance 1150 -680 -200 Meds/Results Medications: Active Medications Generic Name Dose Route Start Last Admin Trade Name Freq PRN Reason Stop Dose Admin Albuterol 2.5 mg 06/11/20 02:38 Albuterol Sulfate Neb 2.5 Mg/0.5 Ml Inh INHALATION Q6HRT PRN Shortness Of Breath Ascorbic Acid 500 mg 06/11/20 09:00 06/12/20 09:03 Ascorbic Acid 500 Mg Tablet FEED TUBE 500 mg DAILY BRYCE Administration Dextrose 12.5 gm 03
[2020-06-12 17:24] LABS: Glucose Point of Care 124 (65-105)
[2020-06-12 18:51] VITALS: PULSE 78; RESP 15; O2SAT 97
[2020-06-12] MEDS: INSULIN GLARGINE (*BKC) 100 UNITS/ML 20 UNITS SUB-Q (21:10)
[2020-06-12 21:25] LABS: Glucose Point of Care 78 (65-105)
[2020-06-12 22:00] VITALS: BP 107/58; PULSE 72; RESP 18; TEMP 37.2; O2SAT 98
[2020-06-13] MEDS: NITROFURANTOIN MACROCRYSTALS 50 MG CAP 100 MG FEED TUBE ×4 (00:15→17:00)
[2020-06-13 00:18] LABS: Glucose Point of Care 144 (65-105)
[2020-06-13] MEDS: INSULIN ASPART (*BKC) 100 UNITS/ML 10 UNITS SUB-Q ×3 (00:18→12:24)
[2020-06-13 05:59] VITALS: BP 118/60; PULSE 81; RESP 18; TEMP 36.6; O2SAT 94
[2020-06-13 06:11] LABS: Hematocrit 33.9 % (37.0-47.0); Hemoglobin 10.3 g/dL (12.0-15.0); Mean Corpuscular HGB Conc 30.4 g/dl (32-36); Mean Corpuscular Hemoglobin 25.6 pg (26-34); Mean Corpuscular Volume 84.3 fl (80-100); Mean Platelet Volume 9.6 fl (7.4-10.4); Platelet Count Result 291 k/mm3 (150-375); Red Blood Count 4.02 M/mm3 (4.2-5.4); Red Cell Distribution Width 16.5 % (11.5-14.5); White Blood Count 7.3 K/mm3 (4.5-10.0)
[2020-06-13 06:29] LABS: Alanine Aminotransferase 63 U/L (4-35); Albumin Level 3.6 g/dL (3.5-5.1); Alkaline Phosphatase 72 U/L (38-126); Anion Gap 6 mmol/L (8-16); Aspartate Amino Transferase 61 U/L (14-36); Bilirubin,Total < 0.1 mg/dL (0.2-1.3); Blood Urea Nitrogen 12 mg/dL (7-17); Calcium 9.2 mg/dL (8.4-10.2); Carbon Dioxide 27 mmol/L (22-30); Chloride 110 mmol/L (98-107); Estimated CRCL calculation 65 ml/min; Estimated Glomerular Filt Rate > 60; Glucose 154 mg/dL (65-105); Lactate Dehydrogenase 355 U/L (313-618); Magnesium 1.8 mg/dL (1.6-2.3); Phosphorus 3.1 mg/dL (2.5-4.5); Potassium 3.7 mmol/L (3.4-5.0); Sodium 143 mmol/L (137-145)
[2020-06-13] MEDS: LANSOPRAZOLE ORAL SUSP 30 MG/10 ML ORAL.SUSP FEED TUBE (06:33)
[2020-06-13 07:08] LABS: Glucose Point of Care 139 (65-105)
[2020-06-13 08:26] LABS: Glucose Point of Care 173 (65-105)
[2020-06-13] MEDS: FAMOTIDINE 20 MG TABLET FEED TUBE (08:45)
[2020-06-13] MEDS: ASCORBIC ACID 500 MG TABLET FEED TUBE (08:45)
[2020-06-13] MEDS: ENOXAPARIN 40 MG/0.4 ML SYRINGE SUB-Q (08:45)
[2020-06-13] MEDS: LACTULOSE 20 GM/30 ML UDC FEED TUBE (08:46)
[2020-06-13] MEDS: MIDODRINE HCL 10 MG TABLET FEED TUBE ×3 (08:46→17:00)
[2020-06-13] MEDS: ACIDOPHILUS/BULGARICUS CHEWABLE TABLET 1 TABLET FEED TUBE ×2 (08:46→17:00)
--- NOTE | 2020-06-13 10:21 | PCDIET ---
Nutrition Follow-Up Complete: Nutrition Diagnosis: Inadequate infusion of enteral nutrition related to emesis as evidenced by NPO status. Nutrition Goal: Patient to meet estimated nutritional needs. Goal met. Patient tolerating Glucerna 1.2 at 55mL/hr with 60mL water flush every 4 hours. Patient sleeping soundly at time of visit. Patient tolerating feedings well, per RN. Last recorded weight is 63.9 kg. Recommend obtaining new weight. Bowel Motility: BM x 3 today. Labs Reviewed: Hgb (10.3), Hct (33.9), Glu (154), Cr (0.5), Cl (110) Meds Noted: Vitamin C, Rocephin, Lantus, Lactulose, Lactinex, Pepcid, Novolog, Atrovent, Prevacid, Microdantin Additional Notes: No documented skin breakdown. Will continue to monitor with same goal. Nutrition Monitoring and Evaluation: Follow up every Friday/Friday.
[2020-06-13 12:17] LABS: Glucose Point of Care 121 (65-105)
--- NOTE | 2020-06-13 13:58 | PM.IMPN ---
Progress Note: A&P Assessment and Plan (1) Sepsis: Code(s): A41.9 - Sepsis, unspecified organism Status: Acute Assessment and Plan: Patient presents with sepsis. (2) Catheter-associated urinary tract infection: Qualifiers: Indwelling urinary catheter type: indwelling urethral catheter Encounter type: initial encounter Qualified Code(s): T83.511A - Infection and inflammatory reaction due to indwelling urethral catheter, initial encounter; N39.0 - Urinary tract infection, site not specified Code(s): T83.511A - Infection and inflammatory reaction due to indwelling urethral catheter, initial encounter; N39.0 - Urinary tract infection, site not specified Status: Acute Assessment and Plan: UCx growing EColi but BCx remaining negative. (3) Acute metabolic encephalopathy: Code(s): G93.41 - Metabolic encephalopathy Status: Acute Assessment and Plan: Resolved. (4) G tube feedings: Code(s): Z93.1 - Gastrostomy status Status: Acute Assessment and Plan: Stable. Continue continuous tube feedings. (5) Insulin dependent type 2 diabetes mellitus: Code(s): E11.9 - Type 2 diabetes mellitus without complications; Z79.4 - care home (current) use of insulin Status: Acute Assessment and Plan: A1c 7.8 in April. The patient's blood glucose was reviewed on 06/12 Glucose remains well controlled. Will continue AccuCheks covering with sliding scale. Hypoglycemia protocol available as needed. Continue Lantus. Continue Novolog q6 dosing. (6) DVT prophylaxis: Code(s): Z29.9 - Encounter for prophylactic measures, unspecified Status: Acute Assessment and Plan: Lovenox. Subjective Date/time seen: 06/13/20 13:58 Interval history: 75yo female with chronic encephalopathy and dysphagia with chronic GTube pt is awaiting MRI of spine. Review of Systems Review of Systems: All systems reviewed & are unremarkable except as noted in HPI and below Exam Narrative: Exam Narrative: Generally: Frail elderly chronically unwell Chest - Lungs clear CV - RRR S1/S2 Abd - Soft, ND, +BS, GTube site clean and dry - Hodge secured draining clear yellow urine Ext - No pedal edema Neuro - Awake and alert. Little conversation Skin - Warm and dry Objective Data Vital Signs Vital Signs: Vital Signs - 24 hr 06/12/20 14:00 06/12/20 18:51 06/12/20 22:00 Temperature 36.9 C 37.2 C Pulse Rate 97 78 72 Respiratory Rate 16 15 18 Blood Pressure 121/53 L 107/58 L Pulse Oximetry 97 97 98 06/13/20 05:59 Temperature 36.6 C Pulse Rate 81 Respiratory Rate 18 Blood Pressure 118/60 Pulse Oximetry 94 Intake/Output Intake/Output: Intake & Output 06/10/20 06/11/20 06/12/20 06/13/20 23:59 23:59 23:59 23:59 Intake Total 1150 50 1564 2394 Output Total 680 1000 1400 Balance 1150 630 564 994 Meds/Results Medications: Active Medications Generic Name Dose Route Start Last Admin Trade Name Freq PRN Reason Stop Dose Admin Albuterol 2.5 mg 06/11/20 02:38 Albuterol Sulfate Neb 2.5 Mg/0.5 Ml Inh INHALATION Q6HRT PRN Shortness Of Breath Ascorbic Acid 500 mg 06/11/20 09:00 06/13/20 08:45 Ascorbic Acid 500 Mg Tablet FEED TUBE 500 mg DAILY BRYCE Administration Dextrose 12.5 gm 06/11/20 16:05 Dextrose 50% 25 Gm/50 Ml Syringe IV PUSH PRN PRN Hypoglycemia Protocol Enoxaparin Sodium 40 mg 06/12/20 09:00 06/13/20 08:45 Enoxaparin 40 Mg/0.4 Ml Syringe SUB-Q 40 mg DAILY BRYCE Administration Famotidine 20 mg 06/11/20 09:00 06/13/20 08:45 Famotidine 20 Mg Tablet FEED TUBE 20 mg DAILY BRYCE Administration Glucagon 1 mg 06/11/20 16:05 Glucagon For Inj 1 Mg Vial IM PRN PRN Hypoglycemia Protocol Ceftriaxone Sodium/Dextrose 1 gm in 50 mls @ 100 mls/hr 06/11/20 21:00 06/12/20 21:10 Rocephin 1 Gm/D5w 50 Ml IVPB 100 mls/
[2020-06-13 14:00] VITALS: BP 131/72; PULSE 80; RESP 20; TEMP 37; O2SAT 98
[2020-06-13 17:23] LABS: Glucose Point of Care 82 (65-105)
[2020-06-13 18:08] LABS: SARS-CoV-2 RNA PCR Negative
[2020-06-13] MEDS: INSULIN GLARGINE (*BKC) 100 UNITS/ML 20 UNITS SUB-Q (20:52)
[2020-06-13 22:00] VITALS: BP 135/55; PULSE 68; RESP 18; TEMP 35.9; O2SAT 95
[2020-06-13 22:00] LABS: Glucose Point of Care 131 (65-105)
[2020-06-14] MEDS: INSULIN ASPART (*BKC) 100 UNITS/ML 10 UNITS SUB-Q ×4 (00:46→18:28)
[2020-06-14] MEDS: NITROFURANTOIN MACROCRYSTALS 50 MG CAP 100 MG FEED TUBE ×4 (00:47→18:28)
[2020-06-14 04:27] LABS: Glucose Point of Care 116 (65-105)
[2020-06-14 05:11] LABS: Glucose Point of Care 80 (65-105)
[2020-06-14 06:00] VITALS: BP 124/64; PULSE 77; RESP 16; TEMP 35.7; O2SAT 93
[2020-06-14] MEDS: LANSOPRAZOLE ORAL SUSP 30 MG/10 ML ORAL.SUSP FEED TUBE (06:23)
[2020-06-14 08:00] VITALS: PULSE 77; RESP 16; O2SAT 93
[2020-06-14] MEDS: ENOXAPARIN 40 MG/0.4 ML SYRINGE SUB-Q (10:07)
[2020-06-14] MEDS: MIDODRINE HCL 10 MG TABLET FEED TUBE ×3 (10:08→16:59)
[2020-06-14] MEDS: FAMOTIDINE 20 MG TABLET FEED TUBE (10:08)
[2020-06-14] MEDS: LACTULOSE 20 GM/30 ML UDC FEED TUBE (10:08)
[2020-06-14] MEDS: ASCORBIC ACID 500 MG TABLET FEED TUBE (10:09)
[2020-06-14] MEDS: ACIDOPHILUS/BULGARICUS CHEWABLE TABLET 1 TABLET FEED TUBE ×2 (10:09→16:59)
--- NOTE | 2020-06-14 12:21 | PM.IMPN ---
Progress Note: A&P Assessment and Plan (1) Sepsis: Code(s): A41.9 - Sepsis, unspecified organism Status: Acute Assessment and Plan: Patient presents with sepsis. (2) Catheter-associated urinary tract infection: Qualifiers: Indwelling urinary catheter type: indwelling urethral catheter Encounter type: initial encounter Qualified Code(s): T83.511A - Infection and inflammatory reaction due to indwelling urethral catheter, initial encounter; N39.0 - Urinary tract infection, site not specified Code(s): T83.511A - Infection and inflammatory reaction due to indwelling urethral catheter, initial encounter; N39.0 - Urinary tract infection, site not specified Status: Acute Assessment and Plan: UCx growing EColi and VRE. multiple resistance consult ID (3) Acute metabolic encephalopathy: Code(s): G93.41 - Metabolic encephalopathy Status: Acute Assessment and Plan: Resolved. (4) G tube feedings: Code(s): Z93.1 - Gastrostomy status Status: Acute Assessment and Plan: Stable. Continue continuous tube feedings. 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 The patient's blood glucose was reviewed on 06/12 Glucose remains well controlled. Will continue AccuCheks covering with sliding scale. Hypoglycemia protocol available as needed. Continue Lantus. Continue Novolog q6 dosing. (6) DVT prophylaxis: Code(s): Z29.9 - Encounter for prophylactic measures, unspecified Status: Acute Assessment and Plan: Lovenox. Additional Plan Subjective Date/time seen: 06/14/20 12:21 Interval history: 75yo female with chronic encephalopathy and dysphagia with chronic GTube pt is awaiting MRI of spine. Mri result reviewed, i will discuss family. Pt found to have VRE in the urine. Review of Systems Review of Systems: All systems reviewed & are unremarkable except as noted in HPI and below Exam Narrative: Exam Narrative: Generally: Frail elderly chronically unwell Chest - Lungs clear CV - RRR S1/S2 Abd - Soft, ND, +BS, GTube site clean and dry - Hodge secured draining clear yellow urine Ext - No pedal edema Neuro - Awake and alert. Little conversation Skin - Warm and dry Objective Data Vital Signs Vital Signs: Vital Signs - 24 hr 06/13/20 14:00 06/13/20 22:00 06/14/20 06:00 Temperature 37.0 C 35.9 C L 35.7 C L Pulse Rate 80 68 77 Respiratory Rate 20 18 16 Blood Pressure 131/72 135/55 L 124/64 Pulse Oximetry 98 95 93 06/14/20 08:00 Temperature Pulse Rate 77 Respiratory Rate 16 Blood Pressure Pulse Oximetry 93 Intake/Output Intake/Output: Intake & Output 06/11/20 06/12/20 06/13/20 06/14/20 23:59 23:59 23:59 23:59 Intake Total 50 1614 3172 873 Output Total 680 1000 2200 1000 Balance -630 614 972 -127 Meds/Results Medications: Active Medications Generic Name Dose Route Start Last Admin Trade Name Freq PRN Reason Stop Dose Admin Albuterol 2.5 mg 06/11/20 02:38 Albuterol Sulfate Neb 2.5 Mg/0.5 Ml Inh INHALATION Q6HRT PRN Shortness Of Breath Ascorbic Acid 500 mg 06/11/20 09:00 06/14/20 10:09 Ascorbic Acid 500 Mg Tablet FEED TUBE 500 mg DAILY BRYCE Administration Dextrose 12.5 gm 06/11/20 16:05 Dextrose 50% 25 Gm/50 Ml Syringe IV PUSH PRN PRN Hypoglycemia Protocol Enoxaparin Sodium 40 mg 06/12/20 09:00 06/14/20 10:07 Enoxaparin 40 Mg/0.4 Ml Syringe SUB-Q 40 mg DAILY BRYCE Administration Famotidine 20 mg 06/11/20 09:00 06/14/20 10:08 Famotidine 20 Mg Tablet FEED TUBE 20 mg DAILY BRYCE Administration Glucagon 1 mg 06/11/20 16:05 Glucagon For Inj 1 Mg Vial IM PRN PRN Hypoglycemia Protocol Ceftriaxone [place]
[2020-06-14 12:29] LABS: Glucose Point of Care 146 (65-105)
[2020-06-14 14:00] VITALS: BP 112/89; PULSE 76; RESP 16; TEMP 36.4; O2SAT 96
[2020-06-14 17:33] VITALS: O2SAT 95
[2020-06-14 18:27] LABS: Glucose Point of Care 120 (65-105)
[2020-06-14 22:00] VITALS: BP 109/65; PULSE 70; RESP 18; TEMP 36.8; O2SAT 93
[2020-06-14] MEDS: INSULIN GLARGINE (*BKC) 100 UNITS/ML 20 UNITS SUB-Q (22:22)
[2020-06-15 00:26] LABS: Glucose Point of Care 113 (65-105)
[2020-06-15] MEDS: NITROFURANTOIN MACROCRYSTALS 50 MG CAP 100 MG FEED TUBE ×3 (00:29→12:20)
[2020-06-15] MEDS: INSULIN ASPART (*BKC) 100 UNITS/ML 10 UNITS SUB-Q ×4 (00:34→17:34)
[2020-06-15 06:00] VITALS: BP 130/59; PULSE 77; RESP 16; TEMP 36.6; O2SAT 93
[2020-06-15] MEDS: LANSOPRAZOLE ORAL SUSP 30 MG/10 ML ORAL.SUSP FEED TUBE (06:24)
[2020-06-15 06:49] LABS: Glucose Point of Care 146 (65-105)
[2020-06-15] MEDS: FAMOTIDINE 20 MG TABLET FEED TUBE (08:49)
[2020-06-15] MEDS: ENOXAPARIN 40 MG/0.4 ML SYRINGE SUB-Q (08:49)
[2020-06-15] MEDS: ASCORBIC ACID 500 MG TABLET FEED TUBE (08:49)
[2020-06-15] MEDS: MIDODRINE HCL 10 MG TABLET FEED TUBE ×3 (08:49→17:00)
[2020-06-15] MEDS: ACIDOPHILUS/BULGARICUS CHEWABLE TABLET 1 TABLET FEED TUBE ×2 (08:49→17:00)
[2020-06-15] MEDS: LACTULOSE 20 GM/30 ML UDC FEED TUBE (08:50)
[2020-06-15 11:47] LABS: Glucose Point of Care 141 (65-105)
--- NOTE | 2020-06-15 12:20 | PM.IMPN ---
Progress Note: A&P Assessment and Plan (1) Sepsis: Code(s): A41.9 - Sepsis, unspecified organism Status: Acute Assessment and Plan: Patient presents with sepsis. Pt has VRE in UTI. consult ID for multiorgan failure (2) Catheter-associated urinary tract infection: Qualifiers: Encounter type: initial encounter Indwelling urinary catheter type: indwelling urethral catheter Qualified Code(s): T83.511A - Infection and inflammatory reaction due to indwelling urethral catheter, initial encounter; N39.0 - Urinary tract infection, site not specified Code(s): T83.511A - Infection and inflammatory reaction due to indwelling urethral catheter, initial encounter; N39.0 - Urinary tract infection, site not specified Status: Acute Assessment and Plan: UCx growing EColi and VRE. multiple resistance consult ID (3) Acute metabolic encephalopathy: Code(s): G93.41 - Metabolic encephalopathy Status: Acute Assessment and Plan: Resolved. (4) G tube feedings: Code(s): Z93.1 - Gastrostomy status Status: Acute Assessment and Plan: Stable. Continue continuous tube feedings. 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 The patient's blood glucose was reviewed on 06/12 Glucose remains well controlled. Will continue AccuCheks covering with sliding scale. Hypoglycemia protocol available as needed. Continue Lantus. Continue Novolog q6 dosing. labile, dietary consult (6) DVT prophylaxis: Code(s): Z29.9 - Encounter for prophylactic measures, unspecified Status: Acute Assessment and Plan: Lovenox. Additional Plan Subjective Date/time seen: 06/15/20 12:20 Interval history: 75yo female with chronic encephalopathy and dysphagia with chronic GTube pt is awaiting MRI of spine. Mri result reviewed, i will discuss family. Pt found to have VRE in the urine. Consult ID today, long discussion with daughter and granddaughter who are very concerned. Concerns with dehydration in NH, would like tube feeds and flushes checked again frequent hypernatremia. Review of Systems Review of Systems: All systems reviewed & are unremarkable except as noted in HPI and below Exam Narrative: Exam Narrative: Generally: Frail elderly chronically unwell Chest - Lungs clear CV - RRR S1/S2 Abd - Soft, ND, +BS, GTube site clean and dry - Hodge secured draining clear yellow urine Ext - No pedal edema Neuro - Awake and alert. Little conversation Skin - Warm and dry Objective Data Vital Signs Vital Signs: Vital Signs - 24 hr 06/14/20 14:00 06/14/20 17:33 06/14/20 22:00 Temperature 36.4 C 36.8 C Pulse Rate 76 70 Respiratory Rate 16 18 Blood Pressure 112/89 109/65 Pulse Oximetry 96 95 93 06/15/20 06:00 Temperature 36.6 C Pulse Rate 77 Respiratory Rate 16 Blood Pressure 130/59 L Pulse Oximetry 93 Intake/Output Intake/Output: Intake & Output 06/12/20 06/13/20 06/14/20 06/15/20 23:59 23:59 23:59 23:59 Intake Total 1614 3172 873 Output Total 1000 2200 1980 550 Balance 614 098 -9107 -550 Meds/Results Medications: Active Medications Generic Name Dose Route Start Last Admin Trade Name Freq PRN Reason Stop Dose Admin Albuterol 2.5 mg 06/11/20 02:38 Albuterol Sulfate Neb 2.5 Mg/0.5 Ml Inh INHALATION Q6HRT PRN Shortness Of Breath Ascorbic Acid 500 mg 06/11/20 09:00 06/15/20 08:49 Ascorbic Acid 500 Mg Tablet FEED TUBE 500 mg DAILY BRYCE Administration Dextrose 12.5 gm 06/11/20 16:05 Dextrose 50% 25 Gm/50 Ml Syringe IV PUSH PRN PRN Hypoglycemia Protocol Enoxaparin Sodium 40 mg 06/12/20 09:00 06/15/20 08:49 Enoxaparin 40 Mg/0.4 Ml Syringe SUB-Q 40 mg DAILY BRYCE Administ
[2020-06-15 14:00] VITALS: BP 125/85; PULSE 79; RESP 16; TEMP 36.7; O2SAT 94
--- NOTE | 2020-06-15 15:24 | WPDINFPN2 ---
Progress Note: A&P Assessment and Plan (1) Asymptomatic bacteriuria: Code(s): R82.71 - Bacteriuria Status: Acute Assessment and Plan: ASB and chronic Hodge. Leukocytosis was transient and physiologic. REC No further Rx nor eval. Subjective Date/time seen: 06/15/20 15:24 Objective Data Vital Signs Vital Signs: Vital Signs - 24 hr 06/14/20 17:33 06/14/20 22:00 06/15/20 06:00 Temperature 36.8 C 36.6 C Pulse Rate 70 77 Respiratory Rate 18 16 Blood Pressure 109/65 130/59 L Pulse Oximetry 95 93 93 06/15/20 14:00 Temperature 36.7 C Pulse Rate 79 Respiratory Rate 16 Blood Pressure 125/85 Pulse Oximetry 94 Intake/Output Intake/Output: Intake & Output 06/12/20 06/13/20 06/14/20 06/15/20 23:59 23:59 23:59 23:59 Intake Total 1614 3172 873 Output Total 1000 2200 1980 550 Balance 614 972 -1107 -550 Meds/Results Medications: Active Medications Generic Name Dose Route Start Last Admin Trade Name Freq PRN Reason Stop Dose Admin Albuterol 2.5 mg 06/11/20 02:38 Albuterol Sulfate Neb 2.5 Mg/0.5 Ml Inh INHALATION Q6HRT PRN Shortness Of Breath Ascorbic Acid 500 mg 06/11/20 09:00 06/15/20 08:49 Ascorbic Acid 500 Mg Tablet FEED TUBE 500 mg DAILY BRYCE Administration Dextrose 12.5 gm 06/11/20 16:05 Dextrose 50% 25 Gm/50 Ml Syringe IV PUSH PRN PRN Hypoglycemia Protocol Enoxaparin Sodium 40 mg 06/12/20 09:00 06/15/20 08:49 Enoxaparin 40 Mg/0.4 Ml Syringe SUB-Q 40 mg DAILY BRYCE Administration Famotidine 20 mg 06/11/20 09:00 06/15/20 08:49 Famotidine 20 Mg Tablet FEED TUBE 20 mg DAILY BRYCE Administration Glucagon 1 mg 06/11/20 16:05 Glucagon For Inj 1 Mg Vial IM PRN PRN Hypoglycemia Protocol Dextrose 1,000 mls @ 100 mls/hr 06/11/20 16:05 Dextrose 5% 1,000 Ml IVPB PRN PRN Hypoglycemia Protocol Insulin Aspart 10 units 06/11/20 18:00 06/15/20 12:18 Insulin Aspart (*Bkc) 100 Units/Ml SUB-Q 10 units Q6HR BRYCE Administration Insulin Aspart 2 - 5 units 06/12/20 00:00 06/15/20 11:51 Insulin Aspart (*Bkc) 100 Units/Ml SUB-Q Not Given Q6HR [facility] Protocol Insulin Glargine 20 units 06/11/20 02:40 06/14/20 22:22 Insulin Glargine (*Bkc) 100 Units/Ml SUB-Q 20 units HS BRYCE Administration Ipratropium [place] 0.5 mg 06/11/20 02:38 Ipratropium Br 0.02% Inh Soln 0.5 Mg/2.5 Ml Vial INHALATION Q6HRT PRN Shortness of breath Lactobacillus Acidophilus 1 tablet 06/11/20 09:00 06/15/20 08:49 Acidophilus/Bulgaricus Chewable Tablet FEED TUBE 1 tablet BID BRYCE Administration Lactulose 20 gm 06/11/20 09:00 06/15/20 08:50 Lactulose 20 Gm/30 Ml Udc FEED TUBE 20 gm DAILY BRYCE Administration Lansoprazole 30 mg 06/11/20 07:30 06/15/20 06:24 Lansoprazole Oral Susp 30 Mg/10 Ml Oral.Susp FEED TUBE 30 mg DAILY@0730 BRYCE Administration Midodrine 10 mg 06/11/20 08:00 06/15/20 12:20 Midodrine Hcl 10 Mg Tablet FEED TUBE 10 mg 0800,1200,1600 BRYCE Administration Nitrofurantoin Macrocrystals 100 mg 06/11/20 03:30 06/15/20 12:20 Nitrofurantoin Macrocrystals 50 Mg Cap FEED TUBE 100 mg Q6HR BYRCE Administration Promethazine HCl 25 mg 06/11/20 02:38 Promethazine Hcl 25 Mg Supp.Rect RECTAL Q6H PRN Nausea Radiology Results: ITS Impressions Head CT 06/10/20 20:42 IMPRESSION: Little overall change since 05/04/2020 Abdomen/Pelvis CT 06/10/20 20:54 IMPRESSION: Gastrostomy tube in stomach Small sliding hiatal hernia 2 x 2.6 cm septated right hepatic cyst and 4 mm hepatic cyst 1.3 cm hyperdense left renal cyst Diverticulosis of left and right colon Relative lucency at T12 right pedicle and posterolateral vertebral body; consider radionuclide bone scan Chest X-Ray 06/12/20 19:09 IMPRESSION: Ill-defined basilar reticulation probably atelectasis. Lumbar Spine MRI 05/23
[2020-06-15 17:34] LABS: Glucose Point of Care 129 (65-105)
[2020-06-15] MEDS: INSULIN GLARGINE (*BKC) 100 UNITS/ML 20 UNITS SUB-Q (21:51)
[2020-06-15 22:00] VITALS: BP 100/63; PULSE 78; RESP 18; TEMP 36.6; O2SAT 94
[2020-06-16] MEDS: INSULIN ASPART (*BKC) 100 UNITS/ML 10 UNITS SUB-Q ×4 (00:09→17:28)
[2020-06-16 00:16] LABS: Glucose Point of Care 133 (65-105)
[2020-06-16 00:16] LABS: Glucose Point of Care 138 (65-105)
[2020-06-16 05:10] LABS: Albumin 3.4 g/dL (3.8-4.8); Alpha 1 Globulin 0.3 g/dL (0.2-0.3); Alpha 2 Globulin 0.8 g/dL (0.5-0.9); Beta 1 Globulin 0.5 g/dL (0.4-0.6); Gamma Globulin 1.1 g/dL (0.8-1.7); Protein, Total 6.7 g/dL (6.1-8.1)
[2020-06-16 06:00] VITALS: BP 116/53; PULSE 80; RESP 18; TEMP 36.3; O2SAT 94
[2020-06-16 06:08] LABS: Hemoglobin 11.5 g/dL (12.0-15.0); Mean Corpuscular HGB Conc 31.1 g/dl (32-36); Mean Corpuscular Hemoglobin 26.1 pg (26-34); Mean Corpuscular Volume 84.1 fl (80-100); Mean Platelet Volume 9.7 fl (7.4-10.4); Platelet Count Result 315 k/mm3 (150-375)
[2020-06-16 06:25] LABS: Anion Gap 9 mmol/L (8-16); Blood Urea Nitrogen 18 mg/dL (7-17); Calcium 9.9 mg/dL (8.4-10.2); Carbon Dioxide 27 mmol/L (22-30); Chloride 107 mmol/L (98-107); Estimated CRCL calculation 65 ml/min; Estimated Glomerular Filt Rate > 60; Glucose 148 mg/dL (65-105); Potassium 4.1 mmol/L (3.4-5.0); Sodium 143 mmol/L (137-145)
[2020-06-16] MEDS: LANSOPRAZOLE ORAL SUSP 30 MG/10 ML ORAL.SUSP FEED TUBE (06:50)
[2020-06-16 07:33] LABS: Glucose Point of Care 139 (65-105)
[2020-06-16] MEDS: MIDODRINE HCL 10 MG TABLET FEED TUBE ×3 (08:08→17:02)
[2020-06-16] MEDS: ASCORBIC ACID 500 MG TABLET FEED TUBE (08:08)
[2020-06-16] MEDS: ACIDOPHILUS/BULGARICUS CHEWABLE TABLET 1 TABLET FEED TUBE ×2 (08:08→17:03)
[2020-06-16] MEDS: FAMOTIDINE 20 MG TABLET FEED TUBE (08:08)
[2020-06-16] MEDS: ENOXAPARIN 40 MG/0.4 ML SYRINGE SUB-Q (08:08)
[2020-06-16] MEDS: LACTULOSE 20 GM/30 ML UDC FEED TUBE (08:09)
--- NOTE | 2020-06-16 09:46 | CONS_ITS ---
DATE OF CONSULTATION: 06/15/2020 REASON FOR CONSULTATION: Abnormal UA. HISTORY OF PRESENT ILLNESS: A 75-year-old female who cannot provide any history. Multiple admissions for various reasons in months' time. She has a chronic Hodge and of course always has an abnormal UA. Records from her correction indicate a urine culture obtained on the day of admission has since grown multiple organisms. She was brought from her correction on the evening of the with a single episode of vomiting. Here, she was given IV fluid resuscitation and has had no further hypotension. She has been given ceftriaxone and nitrofurantoin, has stopped former yesterday. No other events. ALLERGIES: MULTIPLE, WHICH I REVIEWED IN FULL. HABITS: No ongoing tobacco or alcohol. PRESENT MEDICATIONS: See above. PAST MEDICAL HISTORY: Recurrent virus infection in January, GERD, past nephrolithiasis, diabetes mellitus, brain tumor with craniotomy, feeding tube. FAMILY HISTORY: Not pertinent to her present illness. SOCIAL HISTORY: alf resident and no family at the bedside currently. REVIEW OF SYSTEMS: 14-point review not obtainable from the patient, but attempted. She is aphasic. Family history not pertinent to her present illness. PHYSICAL EXAMINATION: GENERAL: Elderly female appears her actual age, in no distress. VITAL SIGNS: Afebrile since arrival 125/85, 79, 16, 94% room air. SKIN: Warm and dry. EENT: Conjunctivae are normal. She will not permit exam the mouth, but externally appears normal. NECK: Held stiffly, but she has no true meningismus. No masses. Trachea is in the midline. LUNGS: Clear to auscultation. Tidal respirations. CARDIAC: Regular rate and rhythm. No ectopy, murmur, or gallop. ABDOMEN: Nontender, soft. No organomegaly. No masses. : Hodge catheter draining clear yellow urine. No sediment. She has a liquid stool in her bed. EXTREMITIES: No clubbing, cyanosis, edema. LABORATORY DATA: In the past, renal imaging is showing no anatomic abnormalities. Abdomen and pelvic CT are repeated this time as well and shows no new urologic findings. I reviewed the radiologist's interpretation. Urine with E. coli and VRE at various times. Current has both organisms. E. coli is a CRE hand roller engraver, blood cultures no growth 3 days incubation. White blood cell count on arrival 14.1, but less than 12 hours later is down to normal and is normal again 2 days ago. Hemoglobin stable at 10.3, platelets 291, no differential. Repeat earlier was unremarkable. Blood gases showed no AA gradient. She has hyperchloremia and glucose 154, otherwise chemistry panel normal. Transaminases twice normal. ASSESSMENT: 1. Asymptomatic bacteria. No UTI is present. 2. Transient leukocytosis, physiologic, not due to infection. 3. Chronic Hodge catheter. 4. Multiple antibiotic allergies. RECOMMENDATIONS: No further antibiotics nor infectious disease evaluation needed. Thank you very much for asking me to see her. Call if other questions arise. INDER VARMA M.D. RANGE MANAGER RANGE MANAGER D I MT: [place]
[2020-06-16 09:49] VITALS: O2SAT 95
--- NOTE | 2020-06-16 10:06 | PCNFU ---
Nutrition Follow-Up Complete: Inadequate infusion of enteral nutrition related to emesis as evidenced by NPO status. Goal: Patient to meet estimated nutritional needs. Patient is tolerating tube feeding at goal rate of 55 ml per hour over 22 hours per day. Pt current nutrition is Glucerna 1.2 at 55 ml per hour over 22 hours per day with 60 mL water flushes Q4. Last recorded weight is 63.9 kg. Recommend re-weighing patient. Bowel Motility: + BM 06/15 Labs Reviewed: Hgb 11.5, BUN 18, Cr 0.5, Glu 148 Meds Noted: Albuterol, Vitamin C, Lovenox, Pepcid, Novolog, Lantus, Midodrine, Atrovent Neb Additional Notes: Spoke with patient's nurse. He reported patient is tolerating current tube feeding well with no residuals. Glucerna 1.2 at 55 ml per hour for 22 hours per day is providing her with 1452 calories, 72 grams of protein, and 974 ml of water. With the 60 ml water flush Q4 hours patient is receiving a total of 1,334 ml of water. Follow up every Friday/Friday.
[2020-06-16 11:54] LABS: Glucose Point of Care 137 (65-105)
--- NOTE | 2020-06-16 12:08 | PCNSR ---
On 06/16/20, the student,Radha Richard, provided care and completed [facility] documentation on this patient. I have reviewed the student's documentation and agree with the findings.
[2020-06-16 14:00] VITALS: BP 131/91; PULSE 86; RESP 16; TEMP 36.6; O2SAT 95
--- NOTE | 2020-06-16 14:06 | PM.IMPN ---
Progress Note: A&P Assessment and Plan (1) Sepsis: Code(s): A41.9 - Sepsis, unspecified organism Status: Acute Assessment and Plan: Patient presents with sepsis. Seen by ID no further ABX needed (2) Catheter-associated urinary tract infection: Qualifiers: Indwelling urinary catheter type: indwelling urethral catheter Encounter type: initial encounter Qualified Code(s): T83.511A - Infection and inflammatory reaction due to indwelling urethral catheter, initial encounter; N39.0 - Urinary tract infection, site not specified Code(s): T83.511A - Infection and inflammatory reaction due to indwelling urethral catheter, initial encounter; N39.0 - Urinary tract infection, site not specified Status: Acute Assessment and Plan: UCx growing EColi and VRE. multiple resistance, see consult ID (3) Acute metabolic encephalopathy: Code(s): G93.41 - Metabolic encephalopathy Status: Acute Assessment and Plan: Resolved. (4) G tube feedings: Code(s): Z93.1 - Gastrostomy status Status: Acute Assessment and Plan: Stable. Continue continuous tube feedings. (5) Insulin dependent type 2 diabetes mellitus: Code(s): E11.9 - Type 2 diabetes mellitus without complications; Z79.4 - alf (current) use of insulin Status: Acute Assessment and Plan: A1c 7.8 in April. The patient's blood glucose was reviewed on 06/12 Glucose remains well controlled. Will continue AccuCheks covering with sliding scale. Hypoglycemia protocol available as needed. Continue Lantus. Continue Novolog q6 dosing. labile, dietary consult (6) DVT prophylaxis: Code(s): Z29.9 - Encounter for prophylactic measures, unspecified Status: Acute Assessment and Plan: Lovenox. Additional Plan Subjective Date/time seen: 06/16/20 14:06 Interval history: 75yo female with chronic encephalopathy and dysphagia with chronic GTube pt is awaiting MRI of spine. Mri result reviewed, i will discuss family. Pt found to have VRE in the urine. ID on board. Concerns with dehydration in NH, would like tube feeds and flushes checked again frequent hypernatremia. Review of Systems Review of Systems: All systems reviewed & are unremarkable except as noted in HPI and below Exam Narrative: Exam Narrative: Generally: Frail elderly chronically unwell Chest - Lungs clear CV - RRR S1/S2 Abd - Soft, ND, +BS, GTube site clean and dry - Hodge secured draining clear yellow urine Ext - No pedal edema Neuro - Awake and alert. Little conversation Skin - Warm and dry Objective Data Vital Signs Vital Signs: Vital Signs - 24 hr 06/15/20 22:00 06/16/20 06:00 06/16/20 09:49 Temperature 36.6 C 36.3 C L Pulse Rate 78 80 Respiratory Rate 18 18 Blood Pressure 100/63 116/53 L Pulse Oximetry 94 94 95 Intake/Output Intake/Output: Intake & Output 06/13/20 06/14/20 06/15/20 06/16/20 23:59 23:59 23:59 23:59 Intake Total 3172 873 751 0 Output Total 2200 1980 1440 450 Balance 972 -1107 -689 -450 Meds/Results Medications: Active Medications Generic Name Dose Route Start Last Admin Trade Name Freq PRN Reason Stop Dose Admin Albuterol 2.5 mg 06/11/20 02:38 Albuterol Sulfate Neb 2.5 Mg/0.5 Ml Inh INHALATION Q6HRT PRN Shortness Of Breath Ascorbic Acid 500 mg 06/11/20 09:00 06/16/20 08:08 Ascorbic Acid 500 Mg Tablet FEED TUBE 500 mg DAILY BRYCE Administration Dextrose 12.5 gm 06/11/20 16:05 Dextrose 50% 25 Gm/50 Ml Syringe IV PUSH PRN PRN Hypoglycemia Protocol Enoxaparin Sodium 40 mg 06/12/20 09:00 06/16/20 08:08 Enoxaparin 40 Mg/0.4 Ml Syringe SUB-Q 40 mg DAILY BRYCE Administration Famotidine 20 mg 06/11/20 09:00 06/16/20 08:08 Famotidine 20 Mg Tablet FEED TUBE 20 mg DAILY BRYCE Administration Glucagon 1 mg 06/11/20 16:05 Glucagon For Inj 1 Mg Vial IM
[2020-06-16 17:45] LABS: SARS-CoV-2 RNA PCR Negative
[2020-06-16] MEDS: INSULIN GLARGINE (*BKC) 100 UNITS/ML 20 UNITS SUB-Q (20:45)
[2020-06-16 21:25] LABS: Glucose Point of Care 130 (65-105)
[2020-06-16 21:34] VITALS: BP 114/42; PULSE 84; RESP 20; TEMP 36.1; O2SAT 94
[2020-06-16] MEDS: ALBUTEROL SULFATE NEB 2.5 MG/0.5 ML INH INHALATION (22:44)
[2020-06-16] MEDS: IPRATROPIUM BR 0.02% INH SOLN 0.5 MG/2.5 ML VIAL INHALATION (22:44)
[2020-06-16 22:45] VITALS: PULSE 76; RESP 18
[2020-06-17] MEDS: INSULIN ASPART (*BKC) 100 UNITS/ML 10 UNITS SUB-Q ×5 (00:33→23:23)
[2020-06-17 00:35] LABS: Glucose Point of Care 123 (65-105)
[2020-06-17 01:11] LABS: Glucose Point of Care 136 (65-105)
[2020-06-17 05:28] VITALS: BP 116/68; PULSE 90; RESP 20; TEMP 36.5; O2SAT 93
[2020-06-17 06:37] LABS: Glucose Point of Care 135 (65-105)
[2020-06-17] MEDS: LANSOPRAZOLE ORAL SUSP 30 MG/10 ML ORAL.SUSP FEED TUBE (07:41)
[2020-06-17] MEDS: LACTULOSE 20 GM/30 ML UDC FEED TUBE (08:13)
[2020-06-17] MEDS: ENOXAPARIN 40 MG/0.4 ML SYRINGE SUB-Q (08:13)
[2020-06-17] MEDS: FAMOTIDINE 20 MG TABLET FEED TUBE (08:14)
[2020-06-17] MEDS: MIDODRINE HCL 10 MG TABLET FEED TUBE ×3 (08:14→15:21)
[2020-06-17] MEDS: ACIDOPHILUS/BULGARICUS CHEWABLE TABLET 1 TABLET FEED TUBE ×2 (08:14→16:21)
[2020-06-17] MEDS: ASCORBIC ACID 500 MG TABLET FEED TUBE (08:14)
[2020-06-17 09:40] VITALS: O2SAT 95
[2020-06-17 11:44] LABS: Glucose Point of Care 146 (65-105)
[2020-06-17 14:00] VITALS: BP 120/49; PULSE 79; RESP 18; TEMP 36.7; O2SAT 93
--- NOTE | 2020-06-17 17:39 | PM.IMPN ---
Progress Note: A&P Assessment and Plan (1) Sepsis: Code(s): A41.9 - Sepsis, unspecified organism Status: Acute Assessment and Plan: Patient presents with sepsis. Seen by ID no further ABX needed (2) Catheter-associated urinary tract infection: Qualifiers: Indwelling urinary catheter type: indwelling urethral catheter Encounter type: initial encounter Qualified Code(s): T83.511A - Infection and inflammatory reaction due to indwelling urethral catheter, initial encounter; N39.0 - Urinary tract infection, site not specified Code(s): T83.511A - Infection and inflammatory reaction due to indwelling urethral catheter, initial encounter; N39.0 - Urinary tract infection, site not specified Status: Acute Assessment and Plan: UCx growing EColi and VRE. multiple resistance, see consult ID no need of abx (3) Acute metabolic encephalopathy: Code(s): G93.41 - Metabolic encephalopathy Status: Acute Assessment and Plan: Resolved. (4) G tube feedings: Code(s): Z93.1 - Gastrostomy status Status: Acute Assessment and Plan: Stable. Continue continuous tube feedings. 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 The patient's blood glucose was reviewed on 06/12 Glucose remains well controlled. Will continue AccuCheks covering with sliding scale. Hypoglycemia protocol available as needed. Continue Lantus. Continue Novolog q6 dosing. labile, dietary consult (6) DVT prophylaxis: Code(s): Z29.9 - Encounter for prophylactic measures, unspecified Status: Acute Assessment and Plan: Lovenox. Additional Plan Subjective Date/time seen: 06/17/20 17:39 Interval history: 75yo female with chronic encephalopathy and dysphagia with chronic GTube pt is awaiting MRI of spine. Mri result reviewed, i will discuss family. Pt found to have VRE in the urine. ID on board. Concerns with dehydration in NH, would like tube feeds and flushes checked again frequent hypernatremia. Pt looks better for discharge on friday back to [place]. Review of Systems Review of Systems: All systems reviewed & are unremarkable except as noted in HPI and below Exam Narrative: Exam Narrative: Generally: Frail elderly chronically unwell Chest - Lungs clear CV - RRR S1/S2 Abd - Soft, ND, +BS, GTube site clean and dry - Hodge secured draining clear yellow urine Ext - No pedal edema Neuro - Awake and alert. Little conversation Skin - Warm and dry Objective Data Vital Signs Vital Signs: Vital Signs - 24 hr 06/16/20 21:34 06/16/20 22:45 06/17/20 05:28 Temperature 36.1 C L 36.5 C Pulse Rate 84 76 90 Respiratory Rate 20 18 20 Blood Pressure 114/42 L 116/68 Pulse Oximetry 94 93 06/17/20 09:40 06/17/20 14:00 Temperature 36.7 C Pulse Rate 79 Respiratory Rate 18 Blood Pressure 120/49 L Pulse Oximetry 95 93 Intake/Output Intake/Output: Intake & Output 06/14/20 06/15/20 06/16/20 06/17/20 23:59 23:59 23:59 23:59 Intake Total 444 574 7344 Output Total 1980 4476 475 1651 Balance -1102 -687 856 1400 Meds/Results Medications: Active Medications Generic Name Dose Route Start Last Admin Trade Name Freq PRN Reason Stop Dose Admin Albuterol 2.5 mg 06/11/20 02:38 06/16/20 22:44 Albuterol Sulfate Neb 2.5 Mg/0.5 Ml Inh INHALATION 2.5 mg Q6HRT PRN Administration Shortness Of Breath Ascorbic Acid 500 mg 06/11/20 09:00 06/17/20 08:14 Ascorbic Acid 500 Mg Tablet FEED TUBE 500 mg DAILY BRYCE Administration Dextrose 12.5 gm 06/11/20 16:05 Dextrose 50% 25 Gm/50 Ml Syringe IV PUSH PRN PRN Hypoglycemia Protocol Enoxaparin Sodium 40 mg 06/12/20 09:00 06/17/20 08:13 Enoxaparin 40 Mg/0.4 Ml Syr
[2020-06-17 18:00] LABS: Glucose Point of Care 120 (65-105)
[2020-06-17 22:00] VITALS: BP 113/47; PULSE 100; RESP 16; TEMP 36.2; O2SAT 96
[2020-06-17] MEDS: INSULIN GLARGINE (*BKC) 100 UNITS/ML 20 UNITS SUB-Q (23:20)
[2020-06-17 23:29] LABS: Glucose Point of Care 157 (65-105)
[2020-06-18] MEDS: INSULIN ASPART (*BKC) 100 UNITS/ML 10 UNITS SUB-Q ×3 (05:54→18:08)
[2020-06-18 06:00] VITALS: BP 113/57; PULSE 91; RESP 18; TEMP 35.8; O2SAT 92
[2020-06-18 06:01] LABS: Glucose Point of Care 146 (65-105)
[2020-06-18 06:42] LABS: Hematocrit 37.9 % (37.0-47.0); Hemoglobin 11.5 g/dL (12.0-15.0); Mean Corpuscular HGB Conc 30.3 g/dl (32-36); Mean Corpuscular Volume 85.6 fl (80-100); Mean Platelet Volume 9.8 fl (7.4-10.4); Platelet Count Result 326 k/mm3 (150-375); Red Blood Count 4.43 M/mm3 (4.2-5.4); Red Cell Distribution Width 17.6 % (11.5-14.5); White Blood Count 10.4 K/mm3 (4.5-10.0)
[2020-06-18 07:02] LABS: Anion Gap 9 mmol/L (8-16); Blood Urea Nitrogen 20 mg/dL (7-17); Carbon Dioxide 28 mmol/L (22-30); Chloride 107 mmol/L (98-107); Estimated CRCL calculation 55 ml/min; Estimated Glomerular Filt Rate > 60; Glucose 160 mg/dL (65-105); Sodium 144 mmol/L (137-145)
[2020-06-18] MEDS: LANSOPRAZOLE ORAL SUSP 30 MG/10 ML ORAL.SUSP FEED TUBE (07:42)
[2020-06-18] MEDS: MIDODRINE HCL 10 MG TABLET FEED TUBE ×3 (07:43→15:08)
[2020-06-18] MEDS: ACIDOPHILUS/BULGARICUS CHEWABLE TABLET 1 TABLET FEED TUBE ×2 (09:14→16:25)
[2020-06-18] MEDS: LACTULOSE 20 GM/30 ML UDC FEED TUBE (09:14)
[2020-06-18] MEDS: ENOXAPARIN 40 MG/0.4 ML SYRINGE SUB-Q (09:14)
[2020-06-18] MEDS: FAMOTIDINE 20 MG TABLET FEED TUBE (09:15)
[2020-06-18] MEDS: ASCORBIC ACID 500 MG TABLET FEED TUBE (09:15)
[2020-06-18 10:03] VITALS: PULSE 90; RESP 18
[2020-06-18] MEDS: IPRATROPIUM BR 0.02% INH SOLN 0.5 MG/2.5 ML VIAL INHALATION (10:03)
[2020-06-18 10:11] VITALS: PULSE 92; RESP 18
--- NOTE | 2020-06-18 11:00 | PM.IMPN ---
Progress Note: A&P Assessment and Plan (1) Sepsis: Code(s): A41.9 - Sepsis, unspecified organism Status: Acute Assessment and Plan: Patient presents with sepsis. Seen by ID no further ABX needed. 75yo female with chronic encephalopathy and dysphagia with chronic GTube pt is awaiting MRI of spine. Mri result reviewed, i will discuss family. Pt found to have VRE in the urine. ID on board. Concerns with dehydration in NH, would like tube feeds and flushes checked again frequent hypernatremia. Pt looks better for discharge on friday back to [place]. 06/18 today patient is a cough however patient allergic guaifenesin and Tessalon, will give updraft with with pulmicort monitor, patient is not requiring any antibiotics for VRE, will continue to monitor and discharge the patient back to care home possibly tomorrow (2) Catheter-associated urinary tract infection: Qualifiers: Indwelling urinary catheter type: indwelling urethral catheter Encounter type: initial encounter Qualified Code(s): T83.511A - Infection and inflammatory reaction due to indwelling urethral catheter, initial encounter; N39.0 - Urinary tract infection, site not specified Code(s): T83.511A - Infection and inflammatory reaction due to indwelling urethral catheter, initial encounter; N39.0 - Urinary tract infection, site not specified Status: Acute Assessment and Plan: UCx growing EColi and VRE. multiple resistance, see consult ID no need of abx (3) Acute metabolic encephalopathy: Code(s): G93.41 - Metabolic encephalopathy Status: Acute Assessment and Plan: Resolved. (4) G tube feedings: Code(s): Z93.1 - Gastrostomy status Status: Acute Assessment and Plan: Stable. Continue continuous tube feedings. (5) Insulin dependent type 2 diabetes mellitus: Code(s): E11.9 - Type 2 diabetes mellitus without complications; Z79.4 - halfway (current) use of insulin Status: Acute Assessment and Plan: A1c 7.8 in April. The patient's blood glucose was reviewed on 06/12 Glucose remains well controlled. Will continue AccuCheks covering with sliding scale. Hypoglycemia protocol available as needed. Continue Lantus. Continue Novolog q6 dosing. labile, dietary consult (6) DVT prophylaxis: Code(s): Z29.9 - Encounter for prophylactic measures, unspecified Status: Acute Assessment and Plan: Lovenox. Additional Plan Subjective Date/time seen: 06/18/20 11:00 Interval history: 75yo female with chronic encephalopathy and dysphagia with chronic GTube pt is awaiting MRI of spine. Mri result reviewed, i will discuss family. Pt found to have VRE in the urine. ID on board. Concerns with dehydration in NH, would like tube feeds and flushes checked again frequent hypernatremia. Pt looks better for discharge on friday back to [place]. 06/18 today patient is a cough however patient allergic guaifenesin and Tessalon, will give updraft with with pulmicort monitor, patient is not requiring any antibiotics for VRE, will continue to monitor and discharge the patient back to care home possibly tomorrow Review of Systems Review of Systems: ROS unobtainable: Yes unobtainable due to medical condition Exam Narrative: Exam Narrative: Generally: Frail elderly chronically unwell Chest - Lungs clear CV - RRR S1/S2 Abd - Soft, ND, +BS, GTube site clean and dry - Hodge secured draining clear yellow urine Ext - No pedal edema Neuro - Awake and alert. Little conversation Skin - Warm and dry Objective Data Vital Signs Vital Signs: Vital Signs - 24 hr 06/17/20 14:00 06/17/20 22:00 06/18/20 06:00 Temperature 98.0 F 97.1 F L 96.5 F L Pulse Rate 79 100 91 Respiratory Rate 18 16 18 Blood Pressure 120/49 L 113/47 L 113/57 L Pulse Oximetry 93 96 92 06/18/20 10:03 06/18/20 10:11 Temperature Pulse Rate 90 92 Respiratory Rate 18 18 Blood Pres
[2020-06-18 11:46] LABS: Glucose Point of Care 165 (65-105)
[2020-06-18 14:00] VITALS: BP 117/58; PULSE 94; RESP 18; TEMP 36.2; O2SAT 93
[2020-06-18 18:09] LABS: Glucose Point of Care 141 (65-105)
[2020-06-18] MEDS: INSULIN GLARGINE (*BKC) 100 UNITS/ML 20 UNITS SUB-Q (20:28)
[2020-06-18 21:14] LABS: Glucose Point of Care 105 (65-105)
[2020-06-18 22:00] VITALS: BP 122/52; PULSE 99; RESP 20; TEMP 36.2; O2SAT 91
[2020-06-19] MEDS: INSULIN ASPART (*BKC) 100 UNITS/ML 10 UNITS SUB-Q ×4 (00:44→17:36)
[2020-06-19 02:42] LABS: Glucose Point of Care 137 (65-105)
[2020-06-19 05:33] VITALS: BP 134/63; PULSE 92; RESP 20; TEMP 36.8; O2SAT 93
[2020-06-19 06:23] LABS: Glucose Point of Care 142 (65-105)
[2020-06-19 06:23] LABS: Anion Gap 8 mmol/L (8-16); Blood Urea Nitrogen 22 mg/dL (7-17); Calcium 9.6 mg/dL (8.4-10.2); Carbon Dioxide 27 mmol/L (22-30); Chloride 108 mmol/L (98-107); Estimated CRCL calculation 55 ml/min; Estimated Glomerular Filt Rate > 60; Glucose 147 mg/dL (65-105); Potassium 4.4 mmol/L (3.4-5.0); Sodium 143 mmol/L (137-145)
[2020-06-19 06:32] LABS: Hematocrit 36.4 % (37.0-47.0); Hemoglobin 10.7 g/dL (12.0-15.0); Mean Corpuscular HGB Conc 29.4 g/dl (32-36); Mean Corpuscular Hemoglobin 25.5 pg (26-34); Mean Corpuscular Volume 86.7 fl (80-100); Mean Platelet Volume 9.9 fl (7.4-10.4); Platelet Count Result 317 k/mm3 (150-375); Red Cell Distribution Width 17.7 % (11.5-14.5); White Blood Count 10.6 K/mm3 (4.5-10.0)
[2020-06-19] MEDS: LANSOPRAZOLE ORAL SUSP 30 MG/10 ML ORAL.SUSP FEED TUBE (08:01)
[2020-06-19] MEDS: MIDODRINE HCL 10 MG TABLET FEED TUBE ×3 (08:01→16:55)
[2020-06-19] MEDS: ACIDOPHILUS/BULGARICUS CHEWABLE TABLET 1 TABLET FEED TUBE ×2 (08:01→17:00)
[2020-06-19] MEDS: LACTULOSE 20 GM/30 ML UDC FEED TUBE (08:02)
[2020-06-19] MEDS: FAMOTIDINE 20 MG TABLET FEED TUBE (08:02)
[2020-06-19] MEDS: ASCORBIC ACID 500 MG TABLET FEED TUBE (08:02)
[2020-06-19] MEDS: ENOXAPARIN 40 MG/0.4 ML SYRINGE SUB-Q (08:02)
[2020-06-19 12:33] LABS: Glucose Point of Care 142 (65-105)
--- NOTE | 2020-06-19 13:43 | PM.DS ---
DS: Admitting Diagnosis Admitting Diagnosis Admitting Diagnosis: Vomiting DS: Discharge Diagnosis Discharge Diagnosis (1) Sepsis: Code(s): A41.9 - Sepsis, unspecified organism Status: Acute Assessment and Plan: Patient presents with sepsis. Seen by ID no further ABX needed. 75yo female with chronic encephalopathy and dysphagia with chronic GTube. PT had MRI of spine, Mri result reviewed and discussed with family. Pt found to have VRE in the urine. ID on board. Concerns with dehydration in NH, would like tube feeds and flushes checked again frequent hypernatremia. Pt looks better for discharge on friday back to [place]. 06/18 patient is not requiring any antibiotics for VRE, will continue to monitor and discharge the patient back to [facility] tomorrow 06/19 pt is stable for discharge (2) Catheter-associated urinary tract infection: Qualifiers: Indwelling urinary catheter type: indwelling urethral catheter Encounter type: initial encounter Qualified Code(s): T83.511A - Infection and inflammatory reaction due to indwelling urethral catheter, initial encounter; N39.0 - Urinary tract infection, site not specified Code(s): T83.511A - Infection and inflammatory reaction due to indwelling urethral catheter, initial encounter; N39.0 - Urinary tract infection, site not specified Status: Acute Assessment and Plan: UCx growing EColi and VRE. multiple resistance, see consult ID no need of abx (3) Acute metabolic encephalopathy: Code(s): G93.41 - Metabolic encephalopathy Status: Acute Assessment and Plan: Resolved ater hydration and sodium monitoring. Sodium is 143 today, pt has frequent hypernatremia and underlying chronic encephalopathy. (4) G tube feedings: Code(s): Z93.1 - Gastrostomy status Status: Acute Assessment and Plan: Stable. Continue continuous tube feedings. 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 Continue Lantus. Continue Novolog q6 dosing. DS: Summary Hospital Course Hospital Course: 75yo female with chronic encephalopathy and dysphagia with chronic GTube. Pt had MRI of spine. Mri result reviewed and discussed with family. Pt found to have VRE in the urine. ID on board no need for abx. Concerns with dehydration in NH, would like tube feeds and flushes checked prior to dischrage due to frequent hypernatremia. Pt looks better for discharge on friday back to [place]. Time Spent with Patient Time attestation: Total time spent providing and/or coordinating discharge services:40 minutes on day of discharge Exam Narrative: Exam Narrative: Generally: Frail elderly chronically unwell Chest - Lungs clear CV - RRR S1/S2 Abd - Soft, ND, +BS, GTube site clean and dry - Hodge secured draining clear yellow urine Ext - No pedal edema Neuro - Awake and alert. Little conversation Skin - Warm and dry DS: Data Data Completed and Pending Labs on day of discharge: Labs from last 24 hours 06/19/20 06/19/20 06/19/20 11:50 08:45 06:07 WBC RBC Hgb Hct MCV MCH MCHC RDW Plt Count MPV Sodium Potassium Chloride Carbon Dioxide Anion Gap BUN Creatinine Estim Creat Clear Calc Estimated GFR Glucose POC Capillary Glucose 142 H 142 H Calcium SARS-CoV-2 RNA (RT-PCR) Pending 06/19/20 06/19/20 06/19/20 05:55 05:55 00:32 WBC 10.6 H RBC 4.20 Hgb 10.7 L Hct 36.4 L MCV 86.7 MCH 25.5 L MCHC 29.4 L RDW 17.7 H Plt Count 317 MPV 9.9 Sodium 143 Potassium 4.4 Chloride 108 H Carbon Dioxide 27 Anion Gap 8 BUN 22 H Creatinine 0.60 L Estim Creat Clear Calc 55 Estimated GFR > 60 Glucose 147 H POC Cap
[2020-06-19 14:00] VITALS: BP 115/60; PULSE 88; RESP 18; TEMP 36.9; O2SAT 93
[2020-06-19 17:43] LABS: Glucose Point of Care 133 (65-105)
[2020-06-19 20:13] LABS: SARS-CoV-2 RNA PCR Negative
[2020-06-19] MEDS: INSULIN GLARGINE (*BKC) 100 UNITS/ML 20 UNITS SUB-Q (20:36)
[2020-06-19 20:37] LABS: Glucose Point of Care 128 (65-105)
[2020-06-19 22:00] VITALS: BP 123/62; PULSE 95; RESP 18; TEMP 35.8; O2SAT 92
[2020-06-20] MEDS: INSULIN ASPART (*BKC) 100 UNITS/ML 10 UNITS SUB-Q ×3 (00:45→11:47)
[2020-06-20 00:59] LABS: Glucose Point of Care 141 (65-105)
[2020-06-20 05:47] LABS: Glucose Point of Care 151 (65-105)
[2020-06-20 06:00] VITALS: BP 124/52; PULSE 88; RESP 16; TEMP 35.9; O2SAT 91
[2020-06-20 06:06] LABS: Hematocrit 36.4 % (37.0-47.0); Hemoglobin 11.1 g/dL (12.0-15.0); Mean Corpuscular HGB Conc 30.5 g/dl (32-36); Mean Corpuscular Hemoglobin 26.3 pg (26-34); Mean Corpuscular Volume 86.3 fl (80-100); Mean Platelet Volume 9.7 fl (7.4-10.4); Platelet Count Result 299 k/mm3 (150-375); Red Blood Count 4.22 M/mm3 (4.2-5.4); Red Cell Distribution Width 17.6 % (11.5-14.5); White Blood Count 11.4 K/mm3 (4.5-10.0)
[2020-06-20] MEDS: ACIDOPHILUS/BULGARICUS CHEWABLE TABLET 1 TABLET FEED TUBE (08:13)
[2020-06-20] MEDS: FAMOTIDINE 20 MG TABLET FEED TUBE (08:13)
[2020-06-20] MEDS: MIDODRINE HCL 10 MG TABLET FEED TUBE ×2 (08:13→11:48)
[2020-06-20] MEDS: ASCORBIC ACID 500 MG TABLET FEED TUBE (08:14)
[2020-06-20] MEDS: ENOXAPARIN 40 MG/0.4 ML SYRINGE SUB-Q (08:14)
[2020-06-20] MEDS: LACTULOSE 20 GM/30 ML UDC FEED TUBE (08:14)
[2020-06-20 09:09] LABS: Creatinine, Random Urine 52 mg/dL (20-275); Total Protein/Creatinine Ratio 654 mg/g creat (21-161)
--- NOTE | 2020-06-20 09:23 | WPDCDIQUERY2 ---
CDI Query Clarification Request -CAUTI and Sepsis are on the problem list as acute problems. -Dr Narayan has documented asymptomatic bacteriuria and recommended discontinuing antibiotics -Antibiotics have been discontinued - UCx growing EColi and VRE. multiple resistance, see consult ID no need of abx Please clarify if sepsis and CAUTI have been ruled in or ruled out. <Yaz Golden RN - Last Filed: 06/20/20 09:27>
[2020-06-20] MEDS: LANSOPRAZOLE ORAL SUSP 30 MG/10 ML ORAL.SUSP FEED TUBE (11:01)
--- NOTE | 2020-06-20 11:22 | PCNFU ---
Nutrition Follow-Up Complete: Inadequate infusion of enteral nutrition related to emesis as evidenced by NPO status. Goal: Patient to meet estimated nutritional needs. Patient is well tolerating tube feeding with no significant residuals. Pt current nutrition is Glucerna 1.2 at 55 mls/hour with a 60 ml water flush Q4 over 22 hours per day providing her with 1452 calories, 72 grams of protein, and 1,334 ml of water. Last recorded weight is 63.9 kg. Recommend re-weighing patient prior to discharge. Bowel Motility: + BM 06/19 Labs Reviewed: Hgb 11.1, Hct 36.4, POC Capillary Glucose 151 Meds Noted: Albuterol, Vitamin C, Lovenox, Pepcid, Novolog, Lantus, Promethazine Hcl Additional Notes: Spoke with patient's nurse. Nurse reported she is tolerating her tube feeding well with no significant residuals. Skin is intact with no open sores. Patient is on track to discharge tomorrow. There is an opening for her in SNF but they can not accept her until tomorrow. As long as MD signs off she will be discharged tomorrow. Follow up every Friday/Friday.
--- NOTE | 2020-06-20 12:21 | PCNSR ---
On 06/20/20, the student, Radha Richard, provided care and completed [facility] documentation on this patient. I have reviewed the student's documentation and agree with the findings.
[2020-06-20 14:00] VITALS: BP 128/61; PULSE 93; RESP 18; TEMP 37.5; O2SAT 94
[2020-06-20 15:40] LABS: Glucose Point of Care 174 (65-105)
--- NOTE | 2020-06-20 15:50 | PM.DS ---
DS: Admitting Diagnosis Admitting Diagnosis Admitting Diagnosis: vomiting DS: Discharge Diagnosis Discharge Diagnosis (1) SIRS (systemic inflammatory response syndrome): Code(s): R65.10 - Systemic inflammatory response syndrome (SIRS) of non-infectious origin without acute organ dysfunction Status: Acute Assessment and Plan: Patient presents with n/v with tachycardia noted on admission. WBC was 14K but normal on repeat. Possibly related to UTI. UCx positive for EColi and VRE; BCx negative. CXR not consistent with PNA. She was started on abx. She was seen by ID who did not feel she had UTI and felt she had urine colonization. Sepsis ruled out. Concerns with dehydration in NH, would like tube feeds and flushes checked again frequent hypernatremia. Pt looks better for discharge. 06/19 pt is stable for discharge. Discharge held but able to be discharged on 06/20. Had long discussion with family about plan of care. (2) Sepsis: Code(s): A41.9 - Sepsis, unspecified organism Status: Acute Assessment and Plan: Ruled out. (3) Catheter-associated urinary tract infection: Qualifiers: Indwelling urinary catheter type: indwelling urethral catheter Encounter type: initial encounter Qualified Code(s): T83.511A - Infection and inflammatory reaction due to indwelling urethral catheter, initial encounter; N39.0 - Urinary tract infection, site not specified Code(s): T83.511A - Infection and inflammatory reaction due to indwelling urethral catheter, initial encounter; N39.0 - Urinary tract infection, site not specified Status: Acute Assessment and Plan: UCx growing EColi and VRE but felt to be colonization. Seen by ID and no need of abx. UTI Ruled Out. (4) Acute metabolic encephalopathy: Code(s): G93.41 - Metabolic encephalopathy Status: Acute Assessment and Plan: Resolved ater hydration and sodium monitoring. Pt has frequent hypernatremia and underlying chronic encephalopathy. (5) G tube feedings: Code(s): Z93.1 - Gastrostomy status Status: Acute Assessment and Plan: Stable. Continue continuous tube feedings. 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 Glucose well controlled. Continue Lantus. Continue Novolog q6 dosing. DS: Summary Hospital Course Reason for hospitalization: 75yo female with chronic encephalopathy and dysphagia with chronic GTube here for nausea and vomiting. Please see H&P for details. Hospital Course: Please see above for details of hospital course. Status at Discharge Cognitive/behavioral status at discharge: Stable Time Spent with Patient Time attestation: Total time spent providing and/or coordinating discharge services: 35 minutes Time spent: Greater than 30 minutes Exam Narrative: Exam Narrative: AF 99.5 128/61 93 18 94% ra Gen - NARD Chest - Lungs clear anteriorly, nml RR CV - RRR S1/S2 Abd - Soft, ND, +BS, GTube site clean and dry - Hodge secured draining clear yellow urine Ext - No pedal edema Psych - nonverbal Skin - Warm and dry DS: Data Data Completed and Pending Labs on day of discharge: Labs from last 24 hours 06/20/20 06/20/20 06/20/20 11:45 05:57 05:33 WBC 11.4 H RBC 4.22 Hgb 11.1 L Hct 36.4 L MCV 86.3 MCH 26.3 MCHC 30.5 L RDW 17.6 H Plt Count 299 MPV 9.7 POC Capillary Glucose 174 H 151 H Ur Random Creatinine U Random Total Protein Protein/Creatinin Ratio Urine Albumin U [id number] U Addau-[id number] U Beta Globulin U Gamma Globulin U Abnormal Prot Band 1 U Abnormal Prot Band 2 U Abnormal Prot Band 3 Urine PEP Interpret SARS-CoV-2 RNA (RT-PCR) 06/20/20 06/19/20
== END 2020-06-20 15:40 | DRG 640 ==
LOC: ANHED 22:56 → ANH3MEDSUR 23:04
PROVIDERS: Emergency Medicine Emergency Medical Services; Family Medicine; Admitting Provider Internal Medicine; Emergency Provider Emergency Medicine; PCP Internal Medicine; Visit Provider Internal Medicine
DX: E86.0 Dehydration (principal); G93.41 Metabolic encephalopathy; R65.10 Systemic inflammatory response syndrome (SIRS) of non-infectious origin without acute organ dysfunction; Z20.822 Contact with and (suspected) exposure to COVID-19; E11.9 Type 2 diabetes mellitus without complications; R11.2 Nausea with vomiting, unspecified; K21.9 Gastro-esophageal reflux disease without esophagitis; R13.10 Dysphagia, unspecified; Z93.1 Gastrostomy status; Z79.4 Long term (current) use of insulin; Z79.899 Other long term (current) drug therapy; Z85.841 Personal history of malignant neoplasm of brain; Z86.16 Personal history of COVID-19; Z87.891 Personal history of nicotine dependence; Z97.8 Presence of other specified devices
CPT/HCPCS: 36415; 36600; 70450; 71045; 72148; 74176; 80048; 80053; 81001; 82010; 82375; 82570; 82805; 82948; 83050; 83605; 83615; 83690; 83735; 84100; 84155; 84156; 84165; 84166; 85025; 85027; 85610; 85730; 86140; 87040; 87077; 87086; 87088; 87186; 93005; 94640; 96361; 96365; 96375; 99285; A9270; C9803; G0378; J0131; J0696; J1650; J1815; J2405; J7030; U0003; U0005

== ENCOUNTER 2020-10-12 08:35 | Outpatient (CLI) | payer OTHER, MEDICARE, MEDICAID, SELFPAY ==
--- NOTE | ~2020-10-12 | XR_ITS ---
MODIFIED ESOPHAGRAM HISTORY: Dysphagia. TECHNIQUE: Modified barium esophagram was performed on 10/12/2020. I administered fluoroscopy and perf ormed the exam with speech pathologist. Patient was seated for lateral fluoroscopic imaging for stefano stion of thin liquids, pudding, solids and quantified amounts, followed by thin liquids in uncontroll ed amounts. This was recorded on tape. A single fluoroscopic spot image was also recorded. The DAP fo r this procedure was 3.604 Gycm2. The amount of fluoroscopy time used during this procedure was 4.2 m inutes. FINDINGS: Oral stage: Mild oral phase dysphagia. Pharyngeal stage: Severe pharyngeal stage dysphagia with significant vallecular residue which spills into the vallecula and subsequently laryngeal vestibule which occurred with multiple consistencies as well as with chin pelvic procedure. There was recurrent silent aspiration below the cords with ineff ectual delayed cough. Cervical/esophageal stage: Adequate function. IMPRESSION: Mild oral and severe pharyngeal phase dysphagia with recurrent silent aspiration. Please correlate with speech pathologist findings and specific feeding recommendations. Reviewed, dictated and finalized at location A. IMPRESSION: Mild oral and severe pharyngeal phase dysphagia with recurrent sile nt aspiration. Please correlate with speech pathologist findings and specific f eeding recommendations.
--- NOTE | 2020-10-12 16:42 | STOPEVAL ---
MODIFIED BARIUM SWALLOW EVALUATION: Thank you for referring Linette Vásquez to [facility].? Attending Provider: [facility] Past Medical History Past Medical History Source of Past Medical History Recalled from Previous Visit, Unable to Confirm with Patient /Family Neurological History Hx Dementia Yes Hx Other Neurological Disorders Yes: MALIGNANT NEOPLASM OF THE BRAIN Respiratory History Hx Other Respiratory Disorders Yes: COVID Gastrointestinal History Hx Gastroesophageal Reflux Disease Yes Hx Other Gastrointestinal Disorders Yes: CONSTIPATION Genitourinary History Hx Urinary Tract Infection Yes Musculoskeletal History Hx Other Musculoskeletal Disorders Yes: GENERALIZED MUSCLE WEAKNESS Endocrine History Hx Diabetes Yes Modified Barium Swallow Evaluation Recent Swallowing History Reports Dysphagia No: pt did not verbalize Onset of Dysphagia unknown; caregiver that accompanied her did not know her history Other Related History MALIGNANT NEOPLASM OF THE BRAIN History of Pneumonia unknown Reported Difficult Consistencies Unable to Identify Intake Method Prior to Swallow Gastrostomy,NPO Evaluation Dentition Comments edentulous Consistency Moderately Thick 5 mL Other Amount tested with chin tuck Method of Presentation Spoon Oral Phase Symptoms Lingual Pumping,Residue on Tongue,Slow Oral Transit Pharyngeal Phase Symptoms Laryngeal Penetration,Reduced Laryngeal Elevation,Reduced Lingual Pressure,Residue in [place] Severity of Vallecular Residue Mild - 5-25 % Epiglottic Ligament Visable 8 Point Laryngeal Penetration-Aspiration Material Enters Airway Below Scale Vocal Cords, Not Ejected Despite Effort Aspiration Timing After the Swallow Pharyngeal Phase Comments chin tuck did not eliminate residual or aspiration from occurring; silent aspiration occurred after the swallow Cervical/Esophageal Symptoms Within Functional Limits Pureed Consistency Method of Presentation Spoon Oral Phase Symptoms Disturbed Lingual Movement, Lingual Pumping,Piecemeal Deglutition,Reduced A-P Lingual Movement,Residue on Tongue,Slow Oral Transit Pharyngeal Phase Symptoms Aspiration,Laryngeal
== END 2020-10-12 08:36 | disposition home or self-care (01) ==
PROVIDERS: PCP Family Medicine
DX: R13.10 Dysphagia, unspecified (principal)
CPT/HCPCS: 92611

== ENCOUNTER 2020-12-25 19:57 | Inpatient (IN) | payer MEDICARE, MEDICAID, SELFPAY ==
--- NOTE | ~2020-12-25 | XR_ITS ---
EXAMINATION: XR chest 1V portable EXAM DATE: 12/25/2020 21:11 INDICATION: Encephalopathy. TECHNIQUE: Portable AP frontal chest x-ray was obtained. Comparison is made to prior examination from 06/12/2020. FINDINGS: The lungs are clear. There are no pleural effusions. Cardiac silhouette is prominent but magnified on this AP technique. There is no pneumothorax suspected. The bones and soft tissues are unremarkable. IMPRESSION: No acute cardiopulmonary findings. Reviewed, dictated and finalized at location A.
--- NOTE | ~2020-12-25 | CT_ITS ---
EXAMINATION: CT brain wo con DATE: 12/25/2020 22:55 INDICATION: Altered mental status. Anaplastic oligodendroglioma. TECHNIQUE: Computed tomography (CT) of the head was performed without intravenous contrast. The mA wa s adjusted according to patient size. Iterative reconstruction technique was employed. The dose-lengt h product was 605.33 mGy-cm. COMPARISON: Head CT 06/10/2020, brain MRI 02/22/2020, 04/24/2020 FINDINGS: There are changes of resection of anterior right frontal lobe. There is a large calcified m ass involving the frontal lobes, right temporal lobe, right insula, and right basal ganglia. There is a large distribution of decreased attenuation involving the white matter with a frontal lobe predomi nance. There is no acute ischemic infarct or intracranial hemorrhage. There is an old lacunar infarct in the right basal ganglia. There is ex vacuo dilatation of the anterior bodies of the lateral ventr icles. There is mucosal thickening in sphenoid sinus with thickening and sclerosis of the sinus cash , consistent with chronic sinusitis. The mastoid air cells are normal. There are changes of right-reggie ed craniotomy. The orbits are normal. IMPRESSION: 1. Calcified mass involving the frontal lobes, right temporal lobe, right insula, and right basal jimena glia status post resection of anterior right frontal lobe, consistent with residual anaplastic oligod endroglioma, worsened from 06/10/20. 2. Stable white matter disease with a frontal lobe predominance, likely a combination of chronic smal l vessel ischemic disease and changes of radiation therapy. 3. Old lacunar infarct in the right basal ganglia. Reviewed, dictated and finalized at location A. IMPRESSION: 1. Calcified mass involving the frontal lobes, right temporal lobe, right insul a, and right basal ganglia status post resection of anterior right frontal lobe , consistent with residual anaplastic oligodendroglioma, worsened from 06/10/20. 2. Stable white matter disease with a frontal lobe predominance, likely a combi nation of chronic small vessel ischemic disease and changes of radiation therap y. 3. Old lacunar infarct in the right basal ganglia.
[2020-12-25 19:59] VITALS: BP 145/95; PULSE 86; RESP 18; TEMP 36.4; O2SAT 96
[2020-12-25 20:05] VITALS: BP 145/95; PULSE 109; RESP 20; O2SAT 96
--- NOTE | 2020-12-25 20:05 | ECG_ITS ---
Measurements Intervals [place] Rate: 85 P: 58 ID: [id number] QRS: -42 QRSD: 84 T: 52 QT: 367 QTc: 438 Interpretive Statements SINUS RHYTHM LEFT AXIS DEVIATION LOW QRS VOLTAGE- DIFFUSE LEADS POOR R WAVE PROGRESSION, ANTERIOR LEADS INFERIOR INFARCT, AGE INDETERMINATE BASELINE ARTIFACT- I, II, III, AVR, AVF ABNORMAL ECG Electronically Signed On 12-26-2020 19:09:23 CDT by Bryon Reyes D.O.
[2020-12-25 20:41] VITALS: BP 132/56; PULSE 84; RESP 20; O2SAT 96
--- NOTE | 2020-12-25 20:44 | ED.AMS ---
HPI - Altered Mental Status General Chief Complaint: Altered Mental Status <Joaquin Keene MD - Last Filed: 12/25/20 20:51> Stated Complaint: AMS, abnl labs <Joaquin Keene MD - Last Filed: 12/25/20 20:51> Time Seen by Provider: 12/25/20 20:01 <Joaquin Keene MD - Last Filed: 12/25/20 20:51> Source: EMS <Joaquin Keene MD - Last Filed: 12/25/20 20:51> Mode of arrival: EMS <Joaquin Keene MD - Last Filed: 12/25/20 20:51> Limitations: altered mental status <Joaquin Keene MD - Last Filed: 12/25/20 20:51> History of Present Illness HPI narrative: 75-year-old detention resident with a history of metabolic encephalopathy type 2 diabetes diastolic congestive heart failure was sent from a detention with abnormal sodium levels of 119. As per the EMS patient is ANO x1 and she has been more lethargic since this morning. No history of fever or chills. Not much of history could be obtained from the patient. <Joaquni Keene MD - Last Filed: 12/25/20 20:51> Related Data Allergies/Adverse Reactions: Allergies Allergy/AdvReac Type Severity Reaction Status Date / Time codeine Allergy Unknown Verified 12/25/20 22:41 erythromycin base Allergy Unknown Verified 12/25/20 22:41 hydrocodone Allergy Unknown Verified 12/25/20 22:41 ibuprofen Allergy Unknown Verified 12/25/20 22:41 Iodinated Contrast Media Allergy Unknown Verified 12/25/20 22:41 meperidine Allergy Unknown Verified 12/25/20 22:41 mepivacaine [From Carbocaine] Allergy Unknown Verified 12/25/20 22:41 propoxyphene Allergy Unknown Verified 12/25/20 22:41 shellfish derived Allergy Hives Verified 12/25/20 22:41 Sulfa (Sulfonamide Allergy Unknown Verified 12/25/20 22:41 Antibiotics) <Joaquin Keene MD - Last Filed: 12/25/20 20:51> Review of Systems Review of Systems: ROS unobtainable: Yes unobtainable due to medical condition <Joaquin Keene MD - Last Filed: 12/25/20 20:51> PMFSH Past Medical History Medical History: Medical History Chronic GERD DM2 (diabetes mellitus, type 2) <Joaquin Keene MD - Last Filed: 12/25/20 20:51> Surgical History Surgical History: Surgical History History of brain surgery resection of brain tumor <Joaquin Keene MD - Last Filed: 12/25/20 20:51> Family History Family History: Family History Sibling Breast cancer Father Lung cancer <Joaquin Keene MD - Last Filed: 12/25/20 20:51> Social History Social History: Social History Social History: according to her records she does not smoke or drink any more however she is listed as a former smoker. she lives in a detention . She is listed as . she does have a durable power admitted attorneys for healthcare. She has a armaan Lenin [phone] is a durable power admitted attorneys. She also has her brother Larry listed as a personnel interviewer [phone]. Spiritual care concerns: No <Joaquin Keene MD - Last Filed: 12/25/20 20:51> Exam Narrative: GENERAL: ill-appearing, well-nourished, and in no acute distress. HEAD: Normocephalic, atraumatic. EYES: PERRLA and EOMI. ENT: Nares clear, no rhinorrhea or epistaxis. ral thrush NECK: Supple. CHEST: Clear to auscultation. No respiratory distress. HEART: Regular rate and rhythm. No murmur heard. Normal peripheral pulses. ABDOMEN: has G tube EXTREMITIES: SKIN: Warm, dry, no rash. NEURO: No focal deficits. Alert . <Joaquin Keene MD - Last Filed: 12/25/20 20:51> Course Reevaluation(s) Reevaluation #1: Patient signed out to me by Dr. Weiss pending CMP, urinalysis. At the time of assessment, patient is ill-appearing, alert and oriented to person, not to place or time. She is oxygenating well. Laboratory results are notable for hy
[2020-12-25 20:53] LABS: Basophils Absolute Auto 0.1 K/mm3 (0.0-0.1); Basophils Percent Auto 0.7 % (0.2-1.2); Eosinophils Absolute Auto 0.4 K/mm3 (0-0.3); Eosinophils Percent Auto 2.1 % (0-4.4); Hematocrit 35.3 % (37.0-47.0); Immature Granulocyte Absolute 0.34 K/mm3 (0.00-0.031); Immature Granulocyte Percent A 1.9 % (0-0.5); Lymphocytes Absolute Auto 4.42 K/mm3 (0.9-3.2); Lymphocytes Percent Auto 24.2 % (18.3-44.2); Mean Corpuscular Hemoglobin 26.4 pg (26-34); Mean Corpuscular Volume 77.6 fl (80-100); Mean Platelet Volume 8.4 fl (7.4-10.4); Monocytes Absolute Auto 1.1 K/mm3 (0.1-0.6); Neutrophils Absolute Auto 11.9 K/mm3 (1.3-6.7); Neutrophils Percent Auto 65.1 % (45.5-73.1); Platelet Count Result 364 k/mm3 (150-375); Red Blood Count 4.55 M/mm3 (4.2-5.4); Red Cell Distribution Width 16.1 % (11.5-14.5); White Blood Count 18.3 K/mm3 (4.5-10.0)
[2020-12-25 20:59] LABS: Add Urine Microscopic? YES; Appearance Urine Clear (Clear); Bacteria Urine Trace /hpf; Bilirubin Urine Negative (Negative); Blood Urine 2+ (Negative); Color Urine Straw (Yellow); Glucose Urine UA Negative (Negative); Ketones Urine Negative (Negative); Leukocyte Esterase Ur 2+ LEU/UL (Negative); Mucus Urine Rare /lpf; Nitrate Urine Positive (Negative); Protein Urine Negative (Negative); RBC Urine 0-2 /hpf (0-2); Specific Grav Ur 1.006 (1.001-1.035); Squamous Epithelial Cell Urine Rare /hpf (Few); Urobilinogen Urine Negative mg/dL (<2.0)
[2020-12-25] MEDS: SODIUM CHLORIDE 0.9% IV 1,000 ML 150 ML IV CONT (21:01)
[2020-12-25 21:31] VITALS: BP 123/61; PULSE 83; RESP 20; O2SAT 97
[2020-12-25 22:19] LABS: Base Excess ABG -5.2 mEq/l (+/-2.0); Carboxyhemoglobin 0.6 % THb (0-2.0); Fractional Inspired Oxygen 21 %; HCO3 ABG 18.5 mEq/l (22.0-26.0); Methemoglobin ABG 0.2 %THb (0-1.5); Oxygen Content ABG 14.9 %vol (16.0-22.0); Oxygen Saturation ABG 95.4 % (95.0-100.0); Oxyhemoglobin 91.5 % THb (90.0-100.0); PCO2 ABG 30.4 mmHg (35.0-45.0); PO2 ABG 75.3 mmHg (80.0-100.0); PO2 FiO2 Ratio Arterial Blood 3.59 %; Reduced Hemoglobin 7.7 %THb (0-5.0); Total Hemoglobin 11.5 g/dL (12.0-18.0); pH ABG 7.403 (7.350-7.450)
[2020-12-25 22:20] LABS: Device ROOM AIR; Modified Allen's Test Pass; Site Drawn RIGHT RADIAL
[2020-12-25 22:22] LABS: Lactic Acid Reflex 1.7 mmol/L (0.7-2.1)
[2020-12-25 22:23] LABS: Alanine Aminotransferase 22 U/L (4-35); Albumin Level 4.4 g/dL (3.5-5.1); Alkaline Phosphatase 77 U/L (38-126); Anion Gap 10 mmol/L (8-16); Aspartate Amino Transferase 26 U/L (14-36); Bilirubin,Total 0.2 mg/dL (0.2-1.3); Blood Urea Nitrogen 22 mg/dL (7-17); Calcium 9.1 mg/dL (8.4-10.2); Carbon Dioxide 25 mmol/L (22-30); Chloride 86 mmol/L (98-107); Estimated CRCL calculation 50 ml/min; Estimated Glomerular Filt Rate > 60; Glucose 112 mg/dL (65-110); Potassium 4.6 mmol/L (3.4-5.0); Sodium 121 mmol/L (137-145)
--- NOTE | 2020-12-25 23:32 | PM.IMHP ---
H&P: HPI History of Present Illness Date/Time: 12/25/20 23:32 Chief Complaint: Abnormal lab value Narrative: This is a 75-year-old female with past medical history significant for former smoker, long-term resident, gastroesophageal reflux disease, diabetes mellitus, encephalopathy, COPD/emphysema, type 2 diabetes mellitus insulin dependent. Patient was brought to the emergency room due to abnormal lab value a sodium of 119. At the time of my visit patient was obtunded and I was not able to get any history from her most of the history has been obtained upon review of medical records. Patient is preliminary workup was significant for sodium of 121 chloride of 86 a white blood cell count of 18,000. A chest x-ray was not significant for acute cardiopulmonary abnormalities and a CT of the head showed no acute abnormality. Patient was started on normal saline in the emergency room and has been admitted for further management treatment and evaluation. Review of Systems Review of Systems: ROS unobtainable: Yes unobtainable due to mental status PMFSH Past Medical History Medical History Chronic GERD DM2 (diabetes mellitus, type 2) Surgical History Surgical History History of brain surgery resection of brain tumor Family History Family History Sibling Breast cancer Father Lung cancer Social History Social History Social History: according to her records she does not smoke or drink any more however she is listed as a former smoker. she lives in a long-term . She is listed as . she does have a durable power tax associate attorney for healthcare. She has a armaan Lenin [phone] is a durable power tax associate attorney. She also has her brother Larry listed as a contact center rep [phone]. Smoking status: Former smoker Tobacco type: cigarettes Alcohol intake: unknown Substance use: unknown Spiritual care concerns: No Meds Home Medications and Allergies Home Medications Medication Instructions Recorded Confirmed Type Lactobacillus acidophilus 10 mg FEEDING TUBE BID 12/26/20 12/26/20 History [Acidophilus] acetaminophen 650 mg PO Q6H PRN 12/26/20 12/26/20 History albuterol sulfate 2 inh INHALATION Q4H PRN 12/26/20 12/26/20 History ascorbic acid (vitamin C) 500 mg FEEDING TUBE DAILY 12/26/20 12/26/20 History bisacodyl 10 mg RECTAL DAILY PRN 12/26/20 12/26/20 History chlorhexidine gluconate [Peridex] 15 ml BUCCAL BID 12/26/20 12/26/20 History cholecalciferol (vitamin D3) 1,250 mcg FEEDING TUBE WEEKLY 12/26/20 12/26/20 History d-mannose 1 ea FEEDING TUBE DAILY 12/26/20 12/26/20 History diclofenac sodium 2 g TOPICAL BID PRN 12/26/20 12/26/20 History famotidine 20 mg FEEDING TUBE DAILY 12/26/20 12/26/20 History guaifenesin 200 mg FEEDING TUBE Q6H 12/26/20 12/26/20 History insulin aspart U-100 [Novolog 12 unit SUBCUT Q6H 12/26/20 12/26/20 History U-100 Insulin aspart] insulin glargine [Basaglar KwikPen 25 unit SUBCUT HS 12/26/20 12/26/20 History U-100 Insulin] lactulose 15 ml FEEDING TUBE TID PRN 12/26/20 12/26/20 History magnesium citrate [Citroma] 296 ml FEEDING TUBE DAILY PRN 12/26/20 12/26/20 History magnesium hydroxide [Milk of 15 ml FEEDING TUBE HS PRN 12/26/20 12/26/20 History Magnesia] omeprazole 20 mg FEEDING TUBE BID 12/26/20 12/26/20 History ondansetron HCl 4 mg FEEDING TUBE Q6H PRN 12/26/20 12/26/20 History sodium phosphates [Fleet Enema] 118 ml RECTAL DAILY PRN 12/26/20 12/26/20 History umeclidinium-vilanterol 1 inh INHALATION DAILY 12/26/20 12/26/20 History Allergies Allergy/AdvReac Type Severity Reaction Status Date / Time codeine Allergy Unknown Verified 12/25/20 22:41 erythromycin base Allergy Unknown Verified 12/25/20 22:41 hydrocodone Allergy Unknown Verified 12/25/20 22:41 ibuprofen
--- NOTE | 2020-12-25 23:38 | PC.NURSE ---
Message left for Julia WATTS, to notify her of admission.
[2020-12-26] VITALS (14 sets, daily range): BP systolic 99–149; BP diastolic 39–74; PULSE 78–107; RESP 16–20; TEMP 36.3–36.8; O2SAT 93–98; BMI 23.4
--- NOTE | 2020-12-26 01:42 | ADMGEN ---
This patient, Linette Vásquez, was admitted to IMU Room 232-01. Patient/family oriented to hospital policies and general routines including ID bracelet, bed and alarms, visiting hours, pain management, procedures, bathroom and other care routines, personal items, smoking policy, room service/diet, and visiting hours. Information on how to activate the Rapid Response Team has been discussed. Patient/Family are encouraged to report perceived risks to care and to ask questions if they do not understand what they are told or what they should do. report from Chito GLEASON arrived approx [phone]
[2020-12-26 05:05] LABS: Basophils Absolute Auto 0.1 K/mm3 (0.0-0.1); Basophils Percent Auto 0.6 % (0.2-1.2); Eosinophils Absolute Auto 0.3 K/mm3 (0-0.3); Eosinophils Percent Auto 2.3 % (0-4.4); Hematocrit 36.8 % (37.0-47.0); Hemoglobin 12.1 g/dL (12.0-15.0); Immature Granulocyte Absolute 0.22 K/mm3 (0.00-0.031); Immature Granulocyte Percent A 1.6 % (0-0.5); Lymphocytes Absolute Auto 2.91 K/mm3 (0.9-3.2); Lymphocytes Percent Auto 20.8 % (18.3-44.2); Mean Corpuscular HGB Conc 32.9 g/dl (32-36); Mean Corpuscular Hemoglobin 26.3 pg (26-34); Mean Platelet Volume 8.1 fl (7.4-10.4); Monocytes Absolute Auto 0.8 K/mm3 (0.1-0.6); Neutrophils Absolute Auto 9.6 K/mm3 (1.3-6.7); Neutrophils Percent Auto 68.7 % (45.5-73.1); Platelet Count Result 363 k/mm3 (150-375); Red Cell Distribution Width 16.2 % (11.5-14.5)
[2020-12-26 05:32] LABS: Anion Gap 14 mmol/L (8-16); Blood Urea Nitrogen 20 mg/dL (7-17); Calcium 9.2 mg/dL (8.4-10.2); Carbon Dioxide 22 mmol/L (22-30); Chloride 91 mmol/L (98-107); Estimated CRCL calculation 83 ml/min; Estimated Glomerular Filt Rate > 60; Glucose 118 mg/dL (65-110); Potassium 4.5 mmol/L (3.4-5.0); Sodium 127 mmol/L (137-145)
[2020-12-26] MEDS: SODIUM CHLORIDE 0.9% IV 1,000 ML 75 ML IV CONT (05:58)
[2020-12-26] MEDS: ASCORBIC ACID 500 MG TABLET FEED TUBE (08:53)
[2020-12-26] MEDS: CHLORHEXIDINE GLUCONATE 0.12% ORAL RINSE 473 ML BTL (*BKC) 15 ML SWISH/SPIT ×2 (08:53→16:33)
[2020-12-26] MEDS: ACIDOPHILUS/BULGARICUS CHEWABLE TABLET 2 TABLET FEED TUBE ×2 (08:53→16:33)
[2020-12-26] MEDS: ENOXAPARIN 40 MG/0.4 ML SYRINGE SUB-Q (08:54)
[2020-12-26] MEDS: PANTOPRAZOLE 40 MG TABLET PO ×2 (08:54→16:33)
[2020-12-26] MEDS: FAMOTIDINE 20 MG TABLET FEED TUBE (08:54)
[2020-12-26] MEDS: DEXTROSE 5% 1,000 ML 1,000 ML 50 ML IV CONT (09:01)
--- NOTE | 2020-12-26 09:31 | P.CDI_ITS ---
CDI Query Clarification Request -Acute encephalopathy Likely secondary to hyponatremia has been documented -Alert and oriented X1 and lethargy documented on arrival Please further specify type of acute encephalopathy: * Metabolic * Toxic * Hepatic * Hypertensive * Other * Unable to determine
--- NOTE | 2020-12-26 10:16 | PM.IMPN ---
Progress Note: A&P Assessment and Plan (1) Acute hyponatremia: Code(s): E87.1 - Hypo-osmolality and hyponatremia Status: Acute Assessment and Plan: Na 119 at the NH and 121 on presentation. Suspected GI losses since she is on Fleet enemas p.r.n. daily and lactulose. She was started on NS but Na climbed to 127 (at least 6mEq over 7 hours). Will stop NS and change to D5W at low rate to temper the rise. Resume TF. Q4H Na levels. Continue to monitor. Check TSH and cortisol (2) Urinary tract infection: Code(s): N39.0 - Urinary tract infection, site not specified Status: Acute Assessment and Plan: Urinalysis shows low number of wbc's but positive nitrate and LE. 2+ Blood noted but no RBCs so will check TCK. UCx pending. Patient received Rocephin in the emergency room. Contineu Rocephin until UCx returns. 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 Continue AccuCheks covering with sliding scale. Hypoglycemia protocol available as needed. Continue current medications. Resume TF. Check A1c (4) Encephalopathy acute: Code(s): G93.40 - Encephalopathy, unspecified Status: Acute Assessment and Plan: CT brain showing a calcified mass involving the frontal lobes, right temporal lobe, right insula, and right basal ganglia status post resection of anterior right frontal lobe, consistent with residual anaplastic oligodendroglioma, worsened from 06/10/20. Also with stable white matter disease with a frontal lobe predominance, likely a combination of chronic small vessel ischemic disease and changes of radiation therapy and old lacunar infarct in the right basal ganglia. Patient with chronic encephalopathy related to brain surgery/cancer. Acute metabolic process from the hyponatremia +/- UTI. Treatment as above. Continue supportive care. (5) Chronic GERD: Code(s): K21.9 - Gastro-esophageal reflux disease without esophagitis Status: Chronic Assessment and Plan: Stable. Continue Pepcid. Subjective Date/time seen: 12/26/20 10:16 Interval history: 75-year-old female with chronic cephalopathy from brain surgery and brain cancer sent in from a fdc for sodium of 119. Patient arouses but unable to answer questions appropriately. No issues overnight per nursing staff. Review of Systems Review of Systems: ROS unobtainable: Yes unobtainable due to mental status Exam Narrative: AF 98.3 99/39 86 18 94% ra Gen - NARD lying semi-recumbent in bed Chest - clear anteriorly CV - RRR S1/S2; Tele showing no signifincat dysrhythmias Abd - Soft, protuberant, +BS, GTube site clean and sry - Hodge secured draining cloudy yellow urine Ext - No pedal edema Neuro - awakens easily. opens eyes but is nonverbal. Skin - Warm and dry Objective Data Vital Signs Vital Signs: Vital Signs - 24 hr 12/25/20 19:59 12/25/20 20:05 12/25/20 20:41 Temperature 97.6 F Pulse Rate 86 109 H 84 Respiratory Rate 18 20 20 Blood Pressure 145/95 H 145/95 H 132/56 L Pulse Oximetry 96 96 96 12/25/20 21:31 12/26/20 00:58 12/26/20 01:27 Temperature 97.4 F L Pulse Rate 83 104 H 91 Respiratory Rate 20 16 20 Blood Pressure 123/61 114/66 99/46 L Pulse Oximetry 97 98 97 12/26/20 01:40 12/26/20 02:00 12/26/20 04:00 Temperature 97.4 F L Pulse Rate 91 81 80 Respiratory Rate 20 Blood Pressure 99/46 L Pulse Oximetry 97 12/26/20 08:00 Temperature 98.3 F Pulse Rate 86 Respiratory Rate 18 Blood Pressure 99/39 L Pu
[2020-12-26 10:23] LABS: Sodium 127 mmol/L (137-145)
[2020-12-26 12:00] LABS: Creatine Kinase 38 U/L (30-135)
[2020-12-26 13:16] LABS: Glucose Point of Care 133 mg/dl (65-105)
[2020-12-26 14:52] LABS: Sodium 125 mmol/L (137-145)
[2020-12-26 17:37] LABS: Glucose Point of Care 134 mg/dl (65-105)
[2020-12-26 18:15] LABS: Sodium 127 mmol/L (137-145)
[2020-12-26 18:59] LABS: Hemoglobin A1C 5.8 % (<5.7)
[2020-12-26 20:25] LABS: Glucose Point of Care 121 mg/dl (65-105)
[2020-12-26 21:43] LABS: Sodium 126 mmol/L (137-145)
[2020-12-26] MEDS: INSULIN GLARGINE (*BKC) 100 UNITS/ML 25 UNITS SUB-Q (21:43)
[2020-12-26 23:55] LABS: Glucose Point of Care 121 mg/dl (65-105)
[2020-12-27] VITALS (8 sets, daily range): BP systolic 102–126; BP diastolic 42–53; PULSE 84–113; RESP 14–22; TEMP 36.5–36.9; O2SAT 92–97
[2020-12-27 05:05] LABS: Hematocrit 35.8 % (37.0-47.0); Hemoglobin 11.6 g/dL (12.0-15.0); Mean Corpuscular HGB Conc 32.4 g/dl (32-36); Mean Corpuscular Hemoglobin 26.2 pg (26-34); Mean Platelet Volume 8.2 fl (7.4-10.4); Platelet Count Result 391 k/mm3 (150-375); Red Blood Count 4.42 M/mm3 (4.2-5.4); Red Cell Distribution Width 16.6 % (11.5-14.5); White Blood Count 12.4 K/mm3 (4.5-10.0)
[2020-12-27 05:22] LABS: Alanine Aminotransferase 26 U/L (4-35); Albumin Level 4.4 g/dL (3.5-5.1); Alkaline Phosphatase 81 U/L (38-126); Anion Gap 13 mmol/L (8-16); Aspartate Amino Transferase 28 U/L (14-36); Bilirubin,Total < 0.1 mg/dL (0.2-1.3); Blood Urea Nitrogen 19 mg/dL (7-17); Calcium 9.6 mg/dL (8.4-10.2); Carbon Dioxide 24 mmol/L (22-30); Chloride 94 mmol/L (98-107); Estimated CRCL calculation 68 ml/min; Estimated Glomerular Filt Rate > 60; Glucose 128 mg/dL (65-110); Magnesium 2.1 mg/dL (1.6-2.3); Phosphorus 4.8 mg/dL (2.5-4.5); Sodium 131 mmol/L (137-145)
[2020-12-27] MEDS: ACIDOPHILUS/BULGARICUS CHEWABLE TABLET 2 TABLET FEED TUBE (08:51)
[2020-12-27] MEDS: ASCORBIC ACID 500 MG TABLET FEED TUBE (08:51)
[2020-12-27] MEDS: ENOXAPARIN 40 MG/0.4 ML SYRINGE SUB-Q (08:52)
[2020-12-27] MEDS: FAMOTIDINE 20 MG TABLET FEED TUBE (08:52)
[2020-12-27] MEDS: PANTOPRAZOLE 40 MG TABLET PO (08:52)
[2020-12-27] MEDS: CHLORHEXIDINE GLUCONATE 0.12% ORAL RINSE 473 ML BTL (*BKC) 15 ML SWISH/SPIT (08:52)
[2020-12-27] MEDS: UMECLIDINIUM/VILANTEROL 62.5-25 MCG ELLIPTA 1 PUFF INHALATION (10:18)
--- NOTE | 2020-12-27 11:44 | PM.DS ---
DS: Admitting Diagnosis Discharge Date 12/27/20 Admitting Diagnosis Hyponatremia DS: Discharge Diagnosis Discharge Diagnosis (1) Acute hyponatremia: Code(s): E87.1 - Hypo-osmolality and hyponatremia Status: Acute Assessment and Plan: Na [address] and 121 on presentation here. Suspected GI losses since she is on Fleet enemas p.r.n. daily and lactulose. She was started on NS but Na climbed to 127 so we changed to D5W to slow the rise. TSH and cortisol level normal. Serial sodium levels drawn and sodium climbed more slowly at sustained rate to 131. long discussion with family about hospital course and follow up plan. Also informed them of the worsening CT brain findings. All questions were answered (2) Urinary tract infection: Code(s): N39.0 - Urinary tract infection, site not specified Status: Acute Assessment and Plan: Urinalysis shows low number of wbc's but positive nitrate and LE. 2+ Blood noted but no RBCs but TCK normal. Patient started on Rocephin in the emergency room. UCx growing EColi sensitive to Rocephin. Hodge was placed but this was removed at discharge (3) DM2 (diabetes mellitus, type 2): Qualifiers: Diabetes mellitus detention insulin use: with detention use Diabetes mellitus complication status: with hyperglycemia Qualified Code(s): E11.65 - Type 2 diabetes mellitus with hyperglycemia; Z79.4 - skilled nursing (current) use of insulin Code(s): E11.9 - Type 2 diabetes mellitus without complications Status: Chronic Assessment and Plan: A1c 5.8. The patient's blood glucose was moniotred with AccuCheks covering with sliding scale. Hypoglycemia protocol was available as needed. We continued her home regiment. Given how tightly controlled she is, we backed off on the Lantus. (4) Encephalopathy acute: Code(s): G93.40 - Encephalopathy, unspecified Status: Acute Assessment and Plan: Patietn with acute on chronic metabolic encephalopathy. 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 Also with stable white matter disease with a frontal lobe predominance, likely a combination of chronic small vessel ischemic disease and changes of radiation therapy and old lacunar infarct in the right basal ganglia. Patient with chronic encephalopathy related to brain surgery/cancer. Acute metabolic process from the hyponatremia and UTI. Treatment as above. (5) Chronic GERD: Code(s): K21.9 - Gastro-esophageal reflux disease without esophagitis Status: Chronic Assessment and Plan: Stable. We continued Pepcid. DS: Summary Hospital Course Reason for hospitalization: 75-year-old female with chronic cephalopathy from brain surgery and brain cancer sent in from a half-way for sodium of 119. Please see H&P for details. Hospital Course: Please see above for details of hospital course. Status at Discharge Cognitive/behavioral status at discharge: Stable Time Spent with Patient Time attestation: Total time spent providing and/or coordinating discharge services: 45 minutes Time spent: Greater than 30 minutes Specific discharge activities: >20 minutes spent discussing care with family. Exam Narrative: AF 98.5 126/50 96 16 95% ra Gen - NARD lying semi-recumbent in bed HEENT - slightly whitish tongue but no evidence of thrush Chest - lungs clear anteriorly and in the flanks CV - RRR S1/S2; Tele showing no significant dysrhythmias Abd - Soft, protuberant, +BS, GTube site clean and dry (patient tolerated TF without n/v per RN) - Hodge secured draining clear yellow urine Ext - No pedal edema Neuro - awakens easily. opens eyes but is nonverbal. Skin - Warm and dry DS: Data Data Completed and Pend
[2020-12-27 11:59] LABS: Glucose Point of Care 125 mg/dl (65-105)
--- NOTE | 2020-12-27 13:40 | PC.NURSE ---
On 12/27/20, the student, Ricarda PALOMARES ROBERT[place], provided care and completed [employer] documentation on this patient. I have reviewed the student's documentation and agree with the findings.
== END 2020-12-27 14:46 | DRG 640 ==
LOC: ANHED 23:24 → ANHIMU 12-27 09:52 → ANH3MEDSUR 12-29 10:15 → ANHIMU 12-29 10:15
PROVIDERS: Family Medicine; Admitting Provider Internal Medicine; Emergency Provider Emergency Medicine; PCP Orthopaedic Surgery Orthopaedic Trauma; Visit Provider Internal Medicine
DX: E87.1 Hypo-osmolality and hyponatremia (principal); G93.41 Metabolic encephalopathy; N39.0 Urinary tract infection, site not specified; I50.32 Chronic diastolic (congestive) heart failure; B96.20 Unspecified Escherichia coli [E. coli] as the cause of diseases classified elsewhere; E11.65 Type 2 diabetes mellitus with hyperglycemia; G13.1 Other systemic atrophy primarily affecting central nervous system in neoplastic disease; K21.9 Gastro-esophageal reflux disease without esophagitis; J43.9 Emphysema, unspecified; Z85.841 Personal history of malignant neoplasm of brain; Z79.4 Long term (current) use of insulin; Z87.891 Personal history of nicotine dependence; Z93.1 Gastrostomy status
CPT/HCPCS: 36415; 36600; 70450; 71045; 80048; 80053; 81001; 82375; 82533; 82550; 82607; 82746; 82805; 82948; 83036; 83050; 83605; 83735; 84100; 84295; 84443; 85025; 85027; 87077; 87086; 87088; 87186; 93005; 96361; 96365; 99285; A4248; A9270; J0696; J1170; J1650; J1815; J7030; J7070

== ENCOUNTER 2020-12-31 20:01 | Inpatient (IN) | payer MEDICARE, MEDICAID, SELFPAY ==
--- NOTE | ~2020-12-31 | XR_ITS ---
EXAMINATION: XR chest 1V portable DATE: 12/31/2020 21:16 INDICATION: Cough and leukocytosis. Transient alteration of awareness. TECHNIQUE: frontal view of the chest was obtained. COMPARISON: Chest radiograph dated 12/25/2020 FINDINGS: Mild opacities at the bilateral lower lung zones. No pleural effusion or pneumothorax. The cardiomedi astinal silhouette is normal. Visualized bones and soft tissues are unremarkable. IMPRESSION: 1. Mild bibasilar opacities, left greater than right which could represent atelectasis or pneumonia. Reviewed, dictated and finalized at location A. IMPRESSION: 1. Mild bibasilar opacities, left greater than right which could represent atel ectasis or pneumonia.
[2020-12-31 19:57] VITALS: BP 115/76; PULSE 80; RESP 16; TEMP 36.7; O2SAT 94
[2020-12-31] MEDS: SODIUM CHLORIDE 0.9% IV 1,000 ML 999 ML IV CONT (20:42)
[2020-12-31 20:49] LABS: Basophils Absolute Auto 0.1 K/mm3 (0.0-0.1); Basophils Percent Auto 0.6 % (0.2-1.2); Eosinophils Absolute Auto 0.4 K/mm3 (0-0.3); Hematocrit 35.7 % (37.0-47.0); Hemoglobin 11.3 g/dL (12.0-15.0); Immature Granulocyte Absolute 0.43 K/mm3 (0.00-0.031); Immature Granulocyte Percent A 2.4 % (0-0.5); Lymphocytes Absolute Auto 4.34 K/mm3 (0.9-3.2); Lymphocytes Percent Auto 23.8 % (18.3-44.2); Mean Corpuscular HGB Conc 31.7 g/dl (32-36); Mean Corpuscular Hemoglobin 26.1 pg (26-34); Mean Corpuscular Volume 82.4 fl (80-100); Mean Platelet Volume 7.9 fl (7.4-10.4); Monocytes Absolute Auto 0.9 K/mm3 (0.1-0.6); Monocytes Percent Auto 4.7 % (2.6-8.5); Neutrophils Absolute Auto 12.1 K/mm3 (1.3-6.7); Neutrophils Percent Auto 66.5 % (45.5-73.1); Platelet Count Result 363 k/mm3 (150-375); Red Blood Count 4.33 M/mm3 (4.2-5.4); Red Cell Distribution Width 16.7 % (11.5-14.5); White Blood Count 18.2 K/mm3 (4.5-10.0)
[2020-12-31 20:55] LABS: Add Urine Microscopic? YES; Appearance Urine Cloudy (Clear); Bacteria Urine 2+ /hpf; Bilirubin Urine Negative (Negative); Blood Urine 1+ (Negative); Color Urine Yellow (Yellow); Glucose Urine UA Negative (Negative); Ketones Urine Negative (Negative); Leukocyte Esterase Ur 2+ LEU/UL (Negative); Mucus Urine Rare /lpf; Nitrate Urine Negative (Negative); Protein Urine Negative (Negative); RBC Urine >75 /hpf (0-2); Specific Grav Ur 1.005 (1.001-1.035); Squamous Epithelial Cell Urine Moderate /hpf (Few); Urobilinogen Urine Negative mg/dL (<2.0); WBC Urine 21-30 /hpf
[2020-12-31 21:07] LABS: Alanine Aminotransferase 50 U/L (4-35); Albumin Level 4.4 g/dL (3.5-5.1); Alkaline Phosphatase 72 U/L (38-126); Anion Gap 12 mmol/L (8-16); Aspartate Amino Transferase 32 U/L (14-36); Bilirubin,Total 0.3 mg/dL (0.2-1.3); Blood Urea Nitrogen 20 mg/dL (7-17); Calcium 9.5 mg/dL (8.4-10.2); Carbon Dioxide 28 mmol/L (22-30); Chloride 91 mmol/L (98-107); Estimated CRCL calculation 83 ml/min; Estimated Glomerular Filt Rate > 60; Glucose 116 mg/dL (65-110); Potassium 4.6 mmol/L (3.4-5.0); Sodium 131 mmol/L (137-145)
--- NOTE | 2020-12-31 21:36 | ED.GENADULT ---
HPI - General Adult General Chief complaint: Recheck/Abnormal Lab/Rx Stated complaint: abn labs Time Seen by Provider: 12/31/20 20:15 History of Present Illness HPI narrative: Patient is a 75-year-old female presents the emergency department with chief complaint of abnormal labs. Patient is a resident of a local senior care and they checked labs approximately 3 days ago and found that she had a sodium of 119 hemoglobin A1c of 10.5 and white blood cell count of 15. The patient is nonverbal and not able to provide any history and has no complaints at this time Related Data Home Medications Medication Instructions Recorded Confirmed Lactobacillus acidophilus 10 mg FEEDING TUBE BID 10/24/19 06/11/20 [Acidophilus] omeprazole 20 mg FEEDING TUBE BID 01/28/20 06/11/20 ascorbic acid (vitamin C) [Vitamin 500 mg FEEDING TUBE DAILY 03/16/20 06/11/20 C] promethazine 25 mg RECTAL Q6H PRN 03/16/20 06/11/20 cholecalciferol (vitamin D3) 1,250 mcg FEEDING TUBE WEEKLY 03/17/20 06/11/20 furosemide 20 mg FEEDING TUBE DAILY 03/17/20 06/11/20 lactulose 20 g FEEDING TUBE DAILY 03/17/20 06/11/20 famotidine 20 mg FEEDING TUBE DAILY 05/04/20 06/11/20 Lantus U-100 Insulin 20 unit SUBCUT HS 06/11/20 06/11/20 albuterol sulfate 2.5 mg INHALATION Q6HRT PRN 06/11/20 06/11/20 Allergies Allergy/AdvReac Type Severity Reaction Status Date / Time shellfish derived Allergy Unknown Hives Verified 05/04/20 15:53 codeine Allergy Unknown Verified 05/04/20 15:53 erythromycin base Allergy Unknown Verified 05/04/20 15:53 hydrocodone Allergy Unknown Verified 05/04/20 15:53 ibuprofen Allergy Unknown Verified 05/04/20 15:53 Iodinated Contrast Media Allergy Unknown Verified 05/04/20 15:53 meperidine Allergy Unknown Verified 05/04/20 15:53 mepivacaine [From Carbocaine] Allergy Unknown Verified 05/04/20 15:53 propoxycaine Allergy Unknown Verified 05/04/20 15:53 propoxyphene Allergy Unknown Verified 05/04/20 15:53 Sulfa (Sulfonamide Allergy Unknown Verified 05/04/20 15:53 Antibiotics) Review of Systems Review of Systems: A 10 system review of systems was completed on the patient and is negative except for what is stated in the HPI. Nursing and ancillary documentation was reviewed. [facility] Past Medical History Medical History Chronic GERD Chronic indwelling Hodge catheter COVID-19 (~01/2020) DM2 (diabetes mellitus, type 2) Elevated transaminase level Appears chronic Gastroesophageal reflux disease History of kidney stones History of urinary tract infection 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 Surgical History Surgical History Gastrointestinal tube in situ (~02/2020) History of brain surgery resection of brain tumor History of craniotomy Right frontal lobe craniotomy with resection of oligodendroglioma. Family History Family History Mother Diabetes mellitus Father Lung cancer Sibling Breast cancer she has Social History Social History Social History: The patient is currently a resident at [facility]. She smoked for approximately 46 years and quit in October 2017. No mention of alcohol or illicit substance abuse. Her niece, Julia Phelps, is her healthcare power of trademark attorney. The patient is a full code. Years smoked: 46 Smoking status: Former smoker Second hand tobacco smoke exposure: No Alcohol intake: never Substance use: never Substance use type: does not use Gender identity (if verbalized by the patient): Female Spiritual care concerns: No Exam Narrative: GENERAL: Well-appearing, well-nourished, and in no acute distress. HEAD:
[2020-12-31] MEDS: DOXYCYCLINE HYCLATE 100 MG TABLET PO (21:54)
--- NOTE | 2020-12-31 22:35 | PM.IMHP ---
H&P: HPI History of Present Illness Date/Time: 12/31/20 22:35 this is a 75-year-old female patient who was sent to the emergency room from the long term due to an abnormal lab. They checked labs approximately 3 days ago in the sodium was found to be 119. A1c of 10.4. And her white count was 15 at that time. Repeat labs from [facility] today white count was 18.2. H&H 11.3 and 35.7. Sodium 131. Leukocyte esterase 2+, rbc's greater than 75 VPCs 21-30 and moderate squamous epithelial cells. It was noted that this is a urine clean-catch. ( The patient was just discharged from here on the 6th of this month. She was treated for urinary tract infection her E coli was sensitive to Rocephin. The patient had been sent back to the long term with antibiotics.) Who who she does not with started on IV fluids and doxycycline. Once I discussed the case with the ER physician he changed her antibiotics to IV Rocephin. The patient is unable to answer question loss due to her encephalopathy. Chest x-ray was read as mild bibasilar opacities, left greater than right which could represent atelectasis or pneumonia. The patient is being admitted to inpatient status on the date of service 12/31/2020 Chief Complaint: abnormal labs Review of Systems Review of Systems: ROS unobtainable: Yes unobtainable due to mental status PMFSH Past Medical History Medical History (Updated 12/31/20 @ 23:05 by Monik Dorsey NP) Catheter-associated urinary tract infection Chronic GERD Chronic indwelling Hodge catheter COVID-19 DM2 (diabetes mellitus, type 2) Elevated transaminase level Appears chronic Gastroesophageal reflux disease History of kidney stones Hypokalemia 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 Sepsis Shock UTI (urinary tract infection) Surgical History Surgical History Gastrointestinal tube in situ (~02/2020) History of brain surgery resection of brain tumor History of craniotomy Right frontal lobe craniotomy with resection of oligodendroglioma. Family History Family History Mother Diabetes mellitus Father Lung cancer Sibling Breast cancer she has Social History Social History Social History: The patient is currently a resident at [facility]. She smoked for approximately 46 years and quit in October 2017. No mention of alcohol or illicit substance abuse. Her niece, Julia Phelps, is her healthcare power of workers compensation attorney. The patient is a full code. Years smoked: 46 Smoking status: Former smoker Second hand tobacco smoke exposure: No Alcohol intake: never Substance use: never Substance use type: does not use Gender identity (if verbalized by the patient): Female Spiritual care concerns: No Meds Home Medications and Allergies Home Medications Medication Instructions Recorded Confirmed Type Lactobacillus acidophilus 10 mg FEEDING TUBE BID 10/24/19 06/11/20 History [Acidophilus] omeprazole 20 mg FEEDING TUBE BID 01/28/20 06/11/20 History midodrine 10 mg FEEDING TUBE TID #90 tablet 02/25/20 06/11/20 Rx ascorbic acid (vitamin C) [Vitamin 500 mg FEEDING TUBE DAILY 03/16/20 06/11/20 History C] promethazine 25 mg RECTAL Q6H PRN 03/16/20 06/11/20 History cholecalciferol (vitamin D3) 1,250 mcg FEEDING TUBE WEEKLY 03/17/20 06/11/20 History furosemide 20 mg FEEDING TUBE DAILY 03/17/20 06/11/20 History lactulose 20 g FEEDING TUBE DAILY 03/17/20 06/11/20 History famotidine 20 mg FEEDING TUBE DAILY 05/04/20 06/11/20 History guaifenesin 200 mg FEEDING TUBE Q4HR #473 ml 05/11/20 06/11/20 Rx ipratropium bromide 0.5 mg INHALATION Q6HRT #62.5 ml 05/11/20 06/11/20 Rx Lantus U-100 Insulin 20 unit SUBCUT HS 06/11/2006/11
[2020-12-31 22:54] VITALS: BP 117/56; PULSE 84; RESP 20; O2SAT 96
[2020-12-31 22:57] LABS: Lactic Acid Reflex 1.6 mmol/L (0.7-2.1)
--- NOTE | 2020-12-31 23:46 | ADMGEN ---
This patient, Linette Vásquez, was admitted to Medical Room 251-01. Patient/family oriented to hospital policies and general routines including ID bracelet, bed and alarms, visiting hours, pain management, procedures, bathroom and other care routines, personal items, smoking policy, room service/diet, and visiting hours. Information on how to activate the Rapid Response Team has been discussed. Patient/Family are encouraged to report perceived risks to care and to ask questions if they do not understand what they are told or what they should do.
[2020-12-31 23:51] VITALS: BMI 23.8
[2020-12-31 23:52] VITALS: BP 100/48; PULSE 86; RESP 16; TEMP 36.3; O2SAT 96
[2021-01-01] VITALS (10 sets, daily range): BP systolic 106–119; BP diastolic 36–58; PULSE 83–98; RESP 14–17; TEMP 36.1–36.6; O2SAT 92–97
[2021-01-01] MEDS: SODIUM CHLORIDE 0.9% IV 1,000 ML 125 ML IV CONT (01:08)
[2021-01-01 01:16] LABS: Glucose Point of Care 104 mg/dl (65-105)
[2021-01-01 05:10] LABS: Basophils Absolute Auto 0.1 K/mm3 (0.0-0.1); Basophils Percent Auto 0.6 % (0.2-1.2); Eosinophils Absolute Auto 0.4 K/mm3 (0-0.3); Eosinophils Percent Auto 1.9 % (0-4.4); Hematocrit 34.3 % (37.0-47.0); Hemoglobin 10.6 g/dL (12.0-15.0); Immature Granulocyte Absolute 0.34 K/mm3 (0.00-0.031); Immature Granulocyte Percent A 1.8 % (0-0.5); Lymphocytes Absolute Auto 3.74 K/mm3 (0.9-3.2); Lymphocytes Percent Auto 20.2 % (18.3-44.2); Mean Corpuscular HGB Conc 30.9 g/dl (32-36); Mean Corpuscular Hemoglobin 25.9 pg (26-34); Mean Corpuscular Volume 83.7 fl (80-100); Mean Platelet Volume 8.1 fl (7.4-10.4); Monocytes Absolute Auto 0.9 K/mm3 (0.1-0.6); Neutrophils Absolute Auto 13.1 K/mm3 (1.3-6.7); Neutrophils Percent Auto 70.5 % (45.5-73.1); Platelet Count Result 364 k/mm3 (150-375); Red Cell Distribution Width 16.8 % (11.5-14.5); White Blood Count 18.5 K/mm3 (4.5-10.0)
[2021-01-01 05:12] LABS: Glucose Point of Care 104 mg/dl (65-105)
[2021-01-01 05:24] LABS: Anion Gap 11 mmol/L (8-16); Blood Urea Nitrogen 17 mg/dL (7-17); Calcium 8.9 mg/dL (8.4-10.2); Carbon Dioxide 24 mmol/L (22-30); Chloride 98 mmol/L (98-107); Estimated CRCL calculation 83 ml/min; Estimated Glomerular Filt Rate > 60; Glucose 108 mg/dL (65-110); Lipase 71 U/L (23-300); Magnesium 2.4 mg/dL (1.6-2.3); Potassium 4.2 mmol/L (3.4-5.0); Sodium 133 mmol/L (137-145)
[2021-01-01 05:27] LABS: Lactic Acid Reflex 2.1 mmol/L (0.7-2.1)
[2021-01-01 08:10] LABS: Reflex Lactic Acid Yes or No Add Lactic
--- NOTE | 2021-01-01 09:25 | PM.IMPN ---
Progress Note: A&P Additional Plan START OF DOCTOR JUAN JOSE?S PROGRESS NOTE Subjective: The patient is nonverbal. I have been informed by nursing staff that this is the patient's baseline Objective: General: -Alert -No acute distress -No dyspnea -No tachypnea Heart: -Regular rate -Regular rhythm -No murmurs -No gallops -No rubs Lungs: -No wheeze -No rhonchi -No rales Abdomen: -Normal bowel sounds in all four quadrants -No rebound -No guarding -No tenderness Extremities: -2/4 pulse in all four extremities -No clubbing -No cyanosis -No edema Additional Details / Additional Findings / Exceptions / Miscellaneous: Pertinent Laboratory Results / Pertinent Radiology Results / Pertinent Diagnostic Results / Pertinent Vital Signs: Blood pressure 158, white blood count 18.5, hemoglobin 1 6, sodium 133 Assessment / Plan: Urinary tract infection. Rocephin 1 g IV daily Jazmine Query pneumonia. Rocephin 1 g IV daily plus vancomycin 500 mg IV q.12 hours to be dosed by pharmacy Hyponatremia. Will monitor sodium levels intermittently. IV normal saline 75 mL/hour GERD Diabetes. 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 Status post radiation, status post right frontal lobe mass resection Orthostatic hypotension Anemia. Will monitor hemoglobin level intermittently. Check serum ferritin, iron panel, fecal occult blood DVT prophylaxis. Lovenox 40 mg subcutaneously daily Disposition: Anticipate discharge within 24 hours END OF DOCTOR JUAN JOSE?S PROGRESS NOTE Subjective Date/time seen: 01/01/21 09:25 Objective Data Vital Signs Vital Signs: Vital Signs - 24 hr 12/31/20 19:57 12/31/20 22:54 12/31/20 23:52 Temperature 98.1 F 97.4 F L Pulse Rate 80 84 86 Respiratory Rate 16 20 16 Blood Pressure 115/76 117/56 L 100/48 L Pulse Oximetry 94 96 96 01/01/21 00:00 01/01/21 03:51 01/01/21 03:57 Temperature 97 F L Pulse Rate 87 83 Respiratory Rate 16 Blood Pressure 106/36 L 108/58 L Pulse Oximetry 97 01/01/21 04:00 Temperature Pulse Rate 89 Respiratory Rate Blood Pressure Pulse Oximetry Intake/Output Intake/Output: Intake & Output 10/11/1112/30/20 12/31/20 01/01/21 23:59 23:59 23:59 23:59 Intake Total 1050 Balance 1050 Meds/Results Medications: Active Medications Generic Name Dose Route Start Last Admin Trade Name Freq PRN Reason Stop Dose Admin Dextrose 12.5 gm 12/31/20 23:04 Dextrose 50% 25 Gm/50 Ml Syringe IV PUSH PRN PRN Hypoglycemia Protocol Enoxaparin Sodium 40 mg 01/02/21 09:00 Enoxaparin 40 Mg/0.4 Ml Syringe SUB-Q DAILY BRYCE Glucagon 1 mg 12/31/20 23:04 Glucagon For Inj 1 Mg Vial IM PRN PRN Hypoglycemia Protocol Glucose 15 gm 12/31/20 23:04 Glucose Oral Gel 15 Gm Of Glucse In 37.5 Gm Tube PO PRN PRN Hypoglycemia Protocol Ceftriaxone Sodium/Dextrose 1 gm in 50 mls @ 100 mls/hr 01/01/21 22:00 Rocephin 1 Gm/D5w 50 Ml IVPB Q24H BRYCE Sodium Chloride 1,000 mls @ 75 mls/hr 12/31/20 22:15 01/01/21 01:08 Normal Saline Iv IV CONT 125 mls/hr .[id number] BRYCE Administration Dextrose 1,000 mls @ 100 mls/hr 12/31/20 23:04 Dextrose 5% 1,000 Ml IVPB PRN PRN Hypoglycemia Protocol Vancomycin HCl 1,000 mg in 250 mls @ 250 mls/hr 01/01/21 09:20 Vancomycin 1,000 Mg/D5w 250 Ml IVPB Q12H BRYCE Insulin Aspart 2 - 5 units 12/31/20 23:05 01/01/21 05:15 Insulin Aspart (*Bkc) 100 Units/Ml SUB-Q Not Given Q6H BRYCE Protocol Radiology Results: ITS Impressions Chest X-Ray 12/31/20 21:23 IMPRESSION: 1. Mild bibasilar opacities, left greater than right which could represent atelectasis or pneumonia. Labs Labs: Laboratory Results - last 24 hr 12/31/20 12/31/20 12/31/20 20:41 20:42
[2021-01-01 09:59] LABS: Iron 37 ug/dL (37-170)
[2021-01-01 10:08] LABS: Percent Iron Saturation 15 % (20-50)
[2021-01-01] MEDS: SODIUM CHLORIDE 0.9% IV 1,000 ML 75 ML IV CONT (10:09)
[2021-01-01 11:32] LABS: Glucose Point of Care 147 mg/dl (65-105)
[2021-01-01 13:25] LABS: Lactic Acid 1.9 mmol/L (0.7-2.1); Sodium 133 mmol/L (137-145)
[2021-01-01 17:24] LABS: Glucose Point of Care 109 mg/dl (65-105)
[2021-01-01] MEDS: ERGOCALCIFEROL 50,000 UNIT CAPSULE 50000 UNITS FEED TUBE (17:34)
[2021-01-01] MEDS: SACCHAROMYCES BOULARDII 250 MG CAPSULE FEED TUBE (17:35)
[2021-01-01] MEDS: LANSOPRAZOLE ORAL SUSP 30 MG/10 ML ORAL.SUSP FEED TUBE (17:35)
[2021-01-01] MEDS: CHLORHEXIDINE GLUCONATE 0.12% ORAL RINSE 473 ML BTL (*BKC) 15 ML SWISH/SPIT (17:35)
[2021-01-01 18:23] LABS: Sodium 134 mmol/L (137-145)
[2021-01-01] MEDS: INSULIN GLARGINE (*BKC) 100 UNITS/ML 20 UNITS SUB-Q (20:10)
[2021-01-01 20:38] LABS: Glucose Point of Care 112 mg/dl (65-105)
[2021-01-02] VITALS (10 sets, daily range): BP systolic 107–125; BP diastolic 42–56; PULSE 81–97; RESP 16–18; TEMP 36–36.2; O2SAT 96–98; BMI 23.8
[2021-01-02 00:08] LABS: Glucose Point of Care 91 mg/dl (65-105)
[2021-01-02 00:44] LABS: Sodium 137 mmol/L (137-145)
[2021-01-02] MEDS: SODIUM CHLORIDE 0.9% IV 1,000 ML 75 ML IV CONT ×2 (03:42→19:17)
[2021-01-02 05:50] LABS: Basophils Absolute Auto 0.1 K/mm3 (0.0-0.1); Basophils Percent Auto 0.6 % (0.2-1.2); Eosinophils Absolute Auto 0.2 K/mm3 (0-0.3); Eosinophils Percent Auto 1.5 % (0-4.4); Hematocrit 32.6 % (37.0-47.0); Hemoglobin 10.3 g/dL (12.0-15.0); Immature Granulocyte Percent A 1.5 % (0-0.5); Lymphocytes Absolute Auto 2.64 K/mm3 (0.9-3.2); Lymphocytes Percent Auto 19.3 % (18.3-44.2); Mean Corpuscular HGB Conc 31.6 g/dl (32-36); Mean Corpuscular Volume 82.3 fl (80-100); Mean Platelet Volume 7.9 fl (7.4-10.4); Monocytes Absolute Auto 0.5 K/mm3 (0.1-0.6); Monocytes Percent Auto 3.8 % (2.6-8.5); Neutrophils Percent Auto 73.3 % (45.5-73.1); Platelet Count Result 351 k/mm3 (150-375); Red Blood Count 3.96 M/mm3 (4.2-5.4); Red Cell Distribution Width 16.7 % (11.5-14.5); White Blood Count 13.7 K/mm3 (4.5-10.0)
[2021-01-02 06:04] LABS: Sodium 138 mmol/L (137-145)
[2021-01-02 06:05] LABS: Glucose Point of Care 121 mg/dl (65-105)
[2021-01-02] MEDS: SACCHAROMYCES BOULARDII 250 MG CAPSULE FEED TUBE ×2 (09:20→16:38)
[2021-01-02] MEDS: ASCORBIC ACID 500 MG TABLET FEED TUBE (09:20)
[2021-01-02] MEDS: CHLORHEXIDINE GLUCONATE 0.12% ORAL RINSE 473 ML BTL (*BKC) 15 ML SWISH/SPIT ×2 (09:21→16:38)
[2021-01-02] MEDS: LANSOPRAZOLE ORAL SUSP 30 MG/10 ML ORAL.SUSP FEED TUBE ×2 (09:22→16:37)
[2021-01-02] MEDS: ENOXAPARIN 40 MG/0.4 ML SYRINGE SUB-Q (09:22)
[2021-01-02 09:29] LABS: IFOB Positive Control Positive; Immunochemical Fecal Occult Bl Negative (N)
[2021-01-02 11:28] LABS: Glucose Point of Care 159 mg/dl (65-105)
--- NOTE | 2021-01-02 12:35 | PM.IMPN ---
Progress Note: A&P Assessment and Plan (1) Acute UTI: Code(s): N39.0 - Urinary tract infection, site not specified Status: Acute Assessment and Plan: The patient's recent urine culture grew E coli. Which was sensitive to Rocephin. Continue with Rocephin pending urine and blood cultures. Patient had a previous chronic indwelling Hodge catheter. (2) Acute hyponatremia: Code(s): E87.1 - Hypo-osmolality and hyponatremia Status: Acute Assessment and Plan: Pt was not on Glucerna in [place] bevel operator recommends glucerna for more stable sodium levels. 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 The patient has frequent dehydration and hyponatremia. She has chronic underlying encephalopathy. 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 Continue with patient's Lantus. (5) G tube feedings: Code(s): Z93.1 - Gastrostomy status Status: Acute Assessment and Plan: Resume tube feedings. Equity Structurer consulted. (6) Anemia: Code(s): D64.9 - Anemia, unspecified Status: Acute Assessment and Plan: The patient appears to be stable at her baseline. No signs and symptoms of bleeding at this time. (7) Brain tumor: Code(s): D49.6 - Neoplasm of unspecified behavior of brain Status: Chronic Assessment and Plan: MRI from 05/10 was read as a following: findings from prior right frontotemporal craniotomy with large region of underlying encephalomalacia likely prior resection of patient's known oligodendroglioma. There is right temporal and bifrontal T2/FLAIR hyperintensity likely radiation related change. Difficult to appreciate the dystrophic calcification is identified on CT, in right temporal lobe, treated or residual oligodendroglioma. No restricted diffusion to suggest acute infarction. Posterior fossa is unremarkable. No extra-axial collections. There is no significant interval change. Additional Plan Additional Assessment / Plan: Urinary tract infection. Rocephin 1 g IV daily Jazmine Query pneumonia. Rocephin 1 g IV daily plus vancomycin 500 mg IV q.12 hours to be dosed by pharmacy Hyponatremia. Will monitor sodium levels intermittently. IV normal saline 75 mL/hour GERD Diabetes. 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 Status post radiation, status post right frontal lobe mass resection Orthostatic hypotension Anemia. continue to monitor DVT prophylaxis. Lovenox 40 mg subcutaneously daily Subjective Date/time seen: 01/02/21 12:35 Interval history: 75-year-old female patient who was sent to the emergency room from the senior care due to an abnormal lab. They checked labs approximately 3 days ago in the sodium was found to be 119. Pt found to have a UTI. started on iv rocephin. sodium is better at 138. Long discussion with the bevel operator recommends glucerna 60ml/hr so sodium levels are more stable. Review of Systems Review of Systems: All systems reviewed & are unremarkable except as noted in HPI and below Exam Const: Nutritional Appearance: other (tired elderly lady ) HENMT: Head: normal to inspection Resp: Effort & Inspection: no respiratory distress Auscultati
[2021-01-02 13:09] LABS: Sodium 136 mmol/L (137-145)
--- NOTE | 2021-01-02 14:22 | WPDINFPN2 ---
Progress Note: A&P Assessment and Plan (1) Asymptomatic bacteriuria: Code(s): R82.71 - Bacteriuria Status: Acute Assessment and Plan: ASB. Her UA was contaminated with urovaginal enrique, confirmed by her urince culture. Her CC of hyponatremia is non infectious REC No further Rx Subjective Date/time seen: 01/02/21 14:22 Objective Data Vital Signs Vital Signs: Vital Signs - 24 hr 01/01/21 16:00 01/01/21 19:17 01/01/21 20:00 Temperature 36.1 C L Pulse Rate 97 93 98 Respiratory Rate 17 Blood Pressure 119/47 L Pulse Oximetry 92 01/02/21 00:00 01/02/21 03:57 01/02/21 04:00 Temperature 36.0 C L Pulse Rate 81 89 89 Respiratory Rate 17 Blood Pressure 107/54 L Pulse Oximetry 98 01/02/21 09:10 01/02/21 12:00 Temperature Pulse Rate 84 97 Respiratory Rate Blood Pressure Pulse Oximetry Intake/Output Intake/Output: Intake & Output 12/30/20 12/31/20 01/01/21 01/02/21 23:59 23:59 23:59 23:59 Intake Total 1050 2735 891 Balance 1050 2735 891 Meds/Results Medications: Active Medications Generic Name Dose Route Start Last Admin Trade Name Freq PRN Reason Stop Dose Admin Acetaminophen 650 mg 01/01/21 15:37 Acetaminophen 325 Mg Tablet FEED TUBE Q6H PRN Pain Albuterol 2.5 mg 01/01/21 15:37 Albuterol Sulfate Neb 2.5 Mg/0.5 Ml Inh INHALATION Q6HRT PRN Shortness Of Breath Ascorbic Acid 500 mg 01/02/21 09:00 01/02/21 09:20 Ascorbic Acid 500 Mg Tablet FEED TUBE 500 mg DAILY BRYCE Administration Bisacodyl 10 mg 01/01/21 15:37 Bisacodyl 10 Mg Suppository RECTAL DAILY PRN Constipation Chlorhexidine Gluconate 15 ml 01/01/21 17:00 01/02/21 09:21 Chlorhexidine Gluconate 0.12% Oral Rinse 473 Ml Btl (*Bkc) SWISH/SPIT 15 ml BID BRYCE Administration Dextrose 12.5 gm 12/31/20 23:04 Dextrose 50% 25 Gm/50 Ml Syringe IV PUSH PRN PRN Hypoglycemia Protocol Diclofenac Sodium 1 applic 01/01/21 16:24 Diclofenac Sodium 1% 100 Gm Gel (*Bkc) TOPICAL BID PRN Pain Enoxaparin Sodium 40 mg 01/02/21 09:00 01/02/21 09:22 Enoxaparin 40 Mg/0.4 Ml Syringe SUB-Q 40 mg DAILY BRYCE Administration Ergocalciferol 50,000 unit 01/01/21 15:50 01/01/21 17:34 Ergocalciferol 50,000 Unit Capsule FEED TUBE 50,000 unit Mo@0900 BRYCE Administration Glucagon 1 mg 12/31/20 23:04 Glucagon For Inj 1 Mg Vial IM PRN PRN Hypoglycemia Protocol Glucose 15 gm 12/31/20 23:04 Glucose Oral Gel 15 Gm Of Glucse In 37.5 Gm Tube PO PRN PRN Hypoglycemia Protocol Guaifenesin 200 mg 01/01/21 15:37 Guaifenesin 200 Mg/10 Ml Udc FEED TUBE Q6H PRN Cough Sodium Chloride 1,000 mls @ 75 mls/hr 12/31/20 22:15 01/02/21 03:42 Normal Saline Iv IV CONT 75 mls/hr .[id number] BRYCE Administration Dextrose 1,000 mls @ 100 mls/hr 12/31/20 23:04 Dextrose 5% 1,000 Ml IVPB PRN PRN Hypoglycemia Protocol Insulin Aspart 12 units 01/01/21 18:00 Insulin Aspart (*Bkc) 100 Units/Ml SUB-Q Q6HR COUNT INCLUDES THE [facility] Insulin Aspart 2 - 5 units 01/02/21 12:00 01/02/21 11:24 Insulin Aspart (*Bkc) 100 Units/Ml SUB-Q Not Given Q6H COUNT INCLUDES THE [facility] Protocol Insulin Glargine 20 units 01/01/21 21:00 01/01/21 20:10 Insulin Glargine (*Bkc) 100 Units/Ml SUB-Q 20 units HS BRYCE Administration Lactulose 10 gm 01/01/21 15:37 Lactulose 20 Gm/30 Ml Udc FEED TUBE Q8HR PRN Constipation Lansoprazole 30 mg 01/01/21 17:00 01/02/21 09:22 Lansoprazole Oral Susp 30 Mg/10 Ml Oral.Susp FEED TUBE 30 mg BID BRYCE Administration Magnesium Citrate 296 ml 01/01/21 15:37 Magnesium Citrate 300 Ml Btl FEED TUBE DAILY PRN Constipation Miscellaneous Information 1 each 01/01/21 00:01 01/02/21 09:42 Diclofenac 3% Gel Nonform; Can Pt Use From Home? Or Pharmacy Stocks The 1% Gel XX 01/31/21 00:00 Not Given CLARIFY BRYCE
[2021-01-02 18:41] LABS: Glucose Point of Care 121 mg/dl (65-105)
[2021-01-02] MEDS: INSULIN GLARGINE (*BKC) 100 UNITS/ML 20 UNITS SUB-Q (20:31)
[2021-01-02 20:57] LABS: Glucose Point of Care 126 mg/dl (65-105)
[2021-01-03] VITALS (9 sets, daily range): BP systolic 117–148; BP diastolic 47–89; PULSE 79–93; RESP 18–20; TEMP 36–36.4; O2SAT 95–97
[2021-01-03 00:06] LABS: Glucose Point of Care 138 mg/dl (65-105)
[2021-01-03 05:40] LABS: Hematocrit 33.3 % (37.0-47.0); Hemoglobin 10.3 g/dL (12.0-15.0); Mean Corpuscular HGB Conc 30.9 g/dl (32-36); Mean Corpuscular Hemoglobin 26.5 pg (26-34); Mean Corpuscular Volume 85.6 fl (80-100); Mean Platelet Volume 8.2 fl (7.4-10.4); Platelet Count Result 308 k/mm3 (150-375); Red Blood Count 3.89 M/mm3 (4.2-5.4); Red Cell Distribution Width 16.9 % (11.5-14.5); White Blood Count 11.6 K/mm3 (4.5-10.0)
[2021-01-03 05:50] LABS: Anion Gap 10 mmol/L (8-16); Blood Urea Nitrogen 14 mg/dL (7-17); Carbon Dioxide 25 mmol/L (22-30); Chloride 105 mmol/L (98-107); Estimated CRCL calculation 83 ml/min; Estimated Glomerular Filt Rate > 60; Glucose 138 mg/dL (65-110); Potassium 4.1 mmol/L (3.4-5.0); Sodium 140 mmol/L (137-145)
[2021-01-03 06:33] LABS: Glucose Point of Care 124 mg/dl (65-105)
[2021-01-03] MEDS: ENOXAPARIN 40 MG/0.4 ML SYRINGE SUB-Q (08:38)
[2021-01-03] MEDS: CHLORHEXIDINE GLUCONATE 0.12% ORAL RINSE 473 ML BTL (*BKC) 15 ML SWISH/SPIT ×2 (08:38→16:53)
[2021-01-03] MEDS: SODIUM CHLORIDE 0.9% IV 1,000 ML 75 ML IV CONT ×2 (09:00→22:15)
[2021-01-03] MEDS: LANSOPRAZOLE ORAL SUSP 30 MG/10 ML ORAL.SUSP FEED TUBE ×2 (09:05→16:54)
[2021-01-03] MEDS: ASCORBIC ACID 500 MG TABLET FEED TUBE (09:05)
[2021-01-03] MEDS: SACCHAROMYCES BOULARDII 250 MG CAPSULE FEED TUBE ×2 (09:05→16:53)
[2021-01-03 12:02] LABS: Glucose Point of Care 116 mg/dl (65-105)
--- NOTE | 2021-01-03 12:24 | PM.IMPN ---
Progress Note: A&P Assessment and Plan (1) Acute UTI: Code(s): N39.0 - Urinary tract infection, site not specified Status: Acute Assessment and Plan: The patient's recent urine culture grew E coli. pt was treated with Rocephin this time UC is negative. Family would like uc checked again prior to discharge. Patient had a previous chronic indwelling Hodge catheter. ID recommends no ABX hopegul dc tomorrow. [place] [id number] on admission now [id number] (2) Acute hyponatremia: Code(s): E87.1 - Hypo-osmolality and hyponatremia Status: Acute Assessment and Plan: Pt was not on Glucerna in [place] golf club repairer recommends glucerna for more stable sodium levels. family want o carry on with her own tube feeds. 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 The patient has frequent dehydration and hyponatremia. She has chronic underlying encephalopathy. (4) DM2 (diabetes mellitus, type 2): Qualifiers: Diabetes mellitus detention insulin use: with manager long term care use Diabetes mellitus complication status: with hyperglycemia Qualified Code(s): E11.65 - Type 2 diabetes mellitus with hyperglycemia; Z79.4 - half-way (current) use of insulin Code(s): E11.9 - Type 2 diabetes mellitus without complications Status: Chronic Assessment and Plan: The ED physician noted that the A1c was 10.5.For now will do sliding scale insulin every 6 hours. Continue with patient's Lantus. (5) G tube feedings: Code(s): Z93.1 - Gastrostomy status Status: Acute Assessment and Plan: Resume tube feedings. Child Welfare Social Worker consulted. (6) Anemia: Code(s): D64.9 - Anemia, unspecified Status: Acute Assessment and Plan: The patient appears to be stable at her baseline. No signs and symptoms of bleeding at this time. (7) Brain tumor: Code(s): D49.6 - Neoplasm of unspecified behavior of brain Status: Chronic Assessment and Plan: MRI from 05/10 was read as a following: findings from prior right frontotemporal craniotomy with large region of underlying encephalomalacia likely prior resection of patient's known oligodendroglioma. There is right temporal and bifrontal T2/FLAIR hyperintensity likely radiation related change. Difficult to appreciate the dystrophic calcification is identified on CT, in right temporal lobe, treated or residual oligodendroglioma. No restricted diffusion to suggest acute infarction. Posterior fossa is unremarkable. No extra-axial collections. There is no significant interval change. Subjective Date/time seen: 01/03/21 12:24 Interval history: 75-year-old female patient who was sent to the emergency room from the skilled nursing due to an abnormal lab. They checked labs approximately 3 days ago in the sodium was found to be 119. Pt found to have a UTI. started on iv rocephin. Pt was hydrated sodium is better now at 140. Long discussion with the golf club repairer recommends glucerna 60ml/hr so sodium levels are more stable. I did tell family this but they prefer her own tube feeds do not want to change. Family want a rpt uc prior to discharge to make sure infection is clear. Pt appears more alert today sitting up answering with yes to my question. Review of Systems Review of Systems: All systems reviewed & are unremarkable except as noted in HPI and below Exam Const: Nutritional Appearance: thin (elderly lady, co-operating, following commands ) HENMT: Head: normal to inspection Resp: Effort & Inspection: no respiratory distress Auscultation: no rhonchi and no wheezes Cardio: Rate: regular rate Rhythm: regular rhythm GI: Inspection: normal to inspection Auscultation: normal bowel sounds Objective Data Vital Signs Vital Signs: Vital Signs - 24 hr
--- NOTE | 2021-01-03 13:46 | WPDCDIQUERY2 ---
CDI Query Clarification Request - Query pneumonia documented on progress notes 01/01 and 01/02 -CXR impression: mild bibasilar opacities, left greater than right which could represent atelectasis or pneumonia -No mention of pneumonia on 01/03 progress note Please clarify if pneumonia has been ruled in or ruled out. <Yaz Golden RN - Last Filed: 01/03/21 13:49> PNEUMONIA as been ruled out <Ashlie Pulido MD - Last Filed: 01/03/21 15:53> Provider Comments PNEUMONIA as been ruled out <Ashlie Pulido MD - Last Filed: 01/03/21 15:53>
[2021-01-03 17:41] LABS: Glucose Point of Care 122 mg/dl (65-105)
[2021-01-03 22:31] LABS: Glucose Point of Care 113 mg/dl (65-105)
[2021-01-03] MEDS: INSULIN GLARGINE (*BKC) 100 UNITS/ML 20 UNITS SUB-Q (22:31)
[2021-01-03 23:43] LABS: Glucose Point of Care 102 mg/dl (65-105)
[2021-01-04] VITALS: PULSE 78
[2021-01-04 04:00] VITALS: PULSE 83
[2021-01-04 05:03] VITALS: BP 107/46; PULSE 78; RESP 16; TEMP 36.1; O2SAT 96
[2021-01-04 06:03] LABS: Estimated CRCL calculation 83 ml/min; Estimated Glomerular Filt Rate > 60
[2021-01-04 06:45] LABS: Glucose Point of Care 109 mg/dl (65-105)
--- NOTE | 2021-01-04 07:17 | CONS_ITS ---
DATE OF CONSULTATION: 01/02/2021 REASON FOR CONSULTATION: Abnormal UA. HISTORY OF PRESENT ILLNESS: A 75-year-old female who cannot provide any history as she is aphasic. She has passed a Hodge catheter, but not currently. She was admitted to hospital with hyponatremia on December 31. For unknown reasons, a urine specimen was obtained, as a voided specimen and the patient has been on treatment since then with ceftriaxone. Consultation requested. She also received a single dose of vancomycin. No events here in the hospital. She was found to have marked hyponatremia on admission, which was responsible for her admission. ALLERGIES: MULTIPLE AND LISTED. HABITS: No tobacco or alcohol. CURRENT MEDICATIONS: See above. PAST MEDICAL HISTORY: Multiple positive as detailed on her record. I have seen her multiple times in the past for ASB as well as symptomatic UTI. REVIEW OF SYSTEMS: A 5-point review attempted, not obtainable from the patient due to aphasia. FAMILY HISTORY: See record. SOCIAL HISTORY: See record. PHYSICAL EXAMINATION: GENERAL: Elderly female appears her actual age, in no distress. VITAL SIGNS: Afebrile, 107/54, 89, 17, 98%. SKIN: Warm and dry. EENT: She will not cooperate for oral exam. The eyes appear normal. NECK: No meningismus. LUNGS: Clear to auscultation. CARDIAC: Regular rate and rhythm. No murmur, gallop. ABDOMEN: Soft, obese, nontender. No organomegaly. She has adult diaper in place. EXTREMITIES: No clubbing, cyanosis, or edema. LABORATORY DATA: Urine culture with urovaginal enrique . Urinalysis results previously noted. MICROBIOLOGY: Includes negative blood cultures at [id number], and the urine culture from December 25 showed E. coli. Other labs include a white count 13.7, hemoglobin 10.3, platelets are 351. Accu-Cheks variable. Sodium is up to 136, now. RADIOLOGY: Chest x-ray of a fibrous opacities. ASSESSMENT: Asymptomatic bacteruria. Her urinalysis shows multiple squamous cells and her urine culture confirms the suspicion of a contaminated urine specimen with urovaginal enrique. RECOMMENDATIONS: 1. No further antibiotics. 2. Call if any questions. Thank you for asking me to see her. INDER VARMA M.D. AERIAL SURVEY TECHNICIAN AERIAL SURVEY TECHNICIAN D I MT: Ulises
[2021-01-04 08:00] VITALS: PULSE 87
[2021-01-04] MEDS: LANSOPRAZOLE ORAL SUSP 30 MG/10 ML ORAL.SUSP FEED TUBE (08:36)
[2021-01-04] MEDS: ASCORBIC ACID 500 MG TABLET FEED TUBE (08:36)
[2021-01-04] MEDS: CHLORHEXIDINE GLUCONATE 0.12% ORAL RINSE 473 ML BTL (*BKC) 15 ML SWISH/SPIT (08:36)
[2021-01-04] MEDS: SACCHAROMYCES BOULARDII 250 MG CAPSULE FEED TUBE (08:36)
[2021-01-04] MEDS: ENOXAPARIN 40 MG/0.4 ML SYRINGE SUB-Q (08:36)
[2021-01-04 09:14] LABS: Hematocrit 34.7 % (37.0-47.0); Hemoglobin 10.3 g/dL (12.0-15.0); Mean Corpuscular HGB Conc 29.7 g/dl (32-36); Mean Corpuscular Hemoglobin 26.1 pg (26-34); Mean Corpuscular Volume 88.1 fl (80-100); Mean Platelet Volume 9.1 fl (7.4-10.4); Platelet Count Result 363 k/mm3 (150-375); Red Blood Count 3.94 M/mm3 (4.2-5.4); Red Cell Distribution Width 17.3 % (11.5-14.5); White Blood Count 12.6 K/mm3 (4.5-10.0)
[2021-01-04 09:29] LABS: Anion Gap 10 mmol/L (8-16); Blood Urea Nitrogen 14 mg/dL (7-17); Carbon Dioxide 25 mmol/L (22-30); Chloride 107 mmol/L (98-107); Estimated CRCL calculation 83 ml/min; Estimated Glomerular Filt Rate > 60; Glucose 113 mg/dL (65-110); Potassium 4.1 mmol/L (3.4-5.0); Sodium 142 mmol/L (137-145)
--- NOTE | 2021-01-04 10:40 | PM.DS ---
DS: Admitting Diagnosis Discharge Date 01/04/2021 Admitting Diagnosis Hyponatremia UTI DS: Discharge Diagnosis Discharge Diagnosis (1) Acute hypernatremia: Code(s): E87.0 - Hyperosmolality and hypernatremia Status: Resolved (2) Pyuria, sterile: Code(s): R82.81 - Pyuria Status: Acute DS: Summary Hospital Course Reason for hospitalization: See discharge diagnosis Hospital Course: 75-year-old female with past medical history of chronic encephalopathy, prior brain tumor resection, G-tube feed dependent with chronic contractures who presented to the ER from [facility] facility due to hyponatremia. The patient's sodium on outpatient labs 3 days prior to admission was 119. Her repeat sodium on arrival to the ER was 131 which was equal to her discharge value from earlier that same week. It was later identified that the [facility] The tube feeds were so thick the nursing staff was having difficulty keeping the tube feeds flowing. Subsequently the patient was getting numerous free water flushes due to G-tube obstruction. The patient's G-tube feeds were switched to loose BUR[facility] [employer] while she was hospitalized. She had good glycemic control with Glucerna which was family's concern with switching tube feeds. The patient's sodiums stabilized when the patient was only given 30 mL flushes q.4 hours with tube feeds. The patient's Glucerna was running at 60 mL an hour. The patient's family still insists that they per further owned tube feeds which we informed the day could discussed with the [facility] provider. The patient had a urine culture as outpatient the grew out E coli. However repeat urine culture here demonstrated mixed enrique. The family requested a repeat urine culture prior to the patient being discharged and repeat urine culture again demonstrated no signs of infection. Patient's case was discussed with Infectious Disease who agreed with no further antibiotic therapy. The patient did have some leukocytosis throughout her hospital stay upon review the patient's outpatient labs the patient has had some mild leukocytosis ongoing for the last couple of years. Status at Discharge Functional status at discharge: bed bound Overall status at discharge: patient is back to baseline Time Spent with Patient Time attestation: Total time spent providing and/or coordinating discharge services:45 Time spent: Greater than 30 minutes Exam Narrative: PHYSICAL EXAM: WEIGHT 61.1 kg BMI 23.9 General: Sitting up in bed, occasionally reaching out for objects, legs flexed at the hip and knee and contracted HEENT: Mucous membranes are dry, no scleral icterus, positive conjunctival pallor Respiratory: Shallow respirations, decreased breath sounds at the bases Cardiovascular: Regular rate, regular rhythm Gastrointestinal: Nontender nondistended, G-tube in place Skin: Generalized pallor, non jaundice, no skin breakdown Musculoskeletal: No clubbing, cyanosis or edema Neurological: Awake, baseline neurologic deficits noted, nonverbal Psychiatric: Tolerates cares, : Incontinent of urine Hematologic/lymphatic: No anterior cervical lymphadenopathy, no petechiae, no bruising DS: Data Data Completed and Pending Labs on day of discharge: Labs from last 24 hours 01/04/21 01/04/21 01/04/21 12:13 11:43 06:29 WBC RBC Hgb Hct MCV MCH MCHC RDW Plt Count MPV Sodium Potassium Chloride Carbon Dioxide Anion Gap BUN Creatinine Estim Creat Clear Calc Estimated GFR Glucose POC Capillary Glucose 119 H 109 H Calcium SARS-CoV-2 IgG/IgM Ag?Rapid Negative 01/04/21 01/04/21 01/04/21 05:43 05:37 05:37 WBC 12.6 H RBC 3.94 L Hgb 10.3 L Hct 34.7 L MCV 88.1 MCH 26.1 MCHC 29.7 L RDW 17.3 H Plt Count 363 MPV 9.1 Sodium 142 Potassium 4.1 Chloride 107 Carbon Dioxide
[2021-01-04 11:52] LABS: Glucose Point of Care 119 mg/dl (65-105)
[2021-01-04 12:00] VITALS: PULSE 86
[2021-01-04 12:43] LABS: EDCOVIDSCREEN Negative (Negative)
[2021-01-04 13:58] VITALS: BP 150/60; PULSE 98; RESP 18; TEMP 37.1; O2SAT 99
== END 2021-01-04 16:50 | DRG 641 ==
LOC: ANHED 22:17 → ANH2MED 23:06
PROVIDERS: Family Medicine; Internal Medicine; Nurse Practitioner; Admitting Provider Internal Medicine; Emergency Provider Emergency Medicine; PCP Orthopaedic Surgery Orthopaedic Trauma; Visit Provider Internal Medicine
DX: E87.1 Hypo-osmolality and hyponatremia (principal); G93.49 Other encephalopathy; R82.71 Bacteriuria; R82.81 Pyuria; Z20.822 Contact with and (suspected) exposure to COVID-19; D72.829 Elevated white blood cell count, unspecified; K21.9 Gastro-esophageal reflux disease without esophagitis; E11.65 Type 2 diabetes mellitus with hyperglycemia; E86.0 Dehydration; D64.9 Anemia, unspecified; I95.1 Orthostatic hypotension; Z86.16 Personal history of COVID-19; Z93.1 Gastrostomy status; Z87.442 Personal history of urinary calculi; Z87.891 Personal history of nicotine dependence; Z79.4 Long term (current) use of insulin
CPT/HCPCS: 36415; 71045; 80048; 80053; 81001; 82274; 82565; 82728; 82948; 83540; 83550; 83605; 83690; 83735; 84295; 85025; 85027; 87040; 87086; 87088; 87426; 96360; 99285; A4248; A9270; C9803; J0696; J1650; J1815; J3370; J7030

== ENCOUNTER 2021-01-26 19:02 | Emergency (ER) | payer MEDICARE, MEDICAID, SELFPAY ==
[2021-01-26 19:06] VITALS: BP 108/58; PULSE 89; RESP 20; TEMP 36.8; O2SAT 97
--- NOTE | 2021-01-26 19:20 | ED.GENADULT ---
HPI - General Adult General Chief complaint: Recheck/Abnormal Lab/Rx Stated complaint: abnormal labs Time Seen by Provider: 01/26/21 19:06 Source: RN notes reviewed History of Present Illness HPI narrative: Patient presents to emergency department via EMS from [facility] for abnormal labs. Patient had lab work done at facility today that showed a sodium of 151 and family wished patient be sent in for further evaluation. Patient is unable to give thorough history she is able to tell me her name she denies any pain at this time she does have a PEG tube in place that is used for tube feedings Related Data Home Medications Medication Instructions Recorded Confirmed Saccharomyces boulardii [Florastor] 250 mg FEEDING TUBE BID 01/26/21 insulin glargine [Basaglar KwikPen 20 unit SUBCUT DAILY 01/26/21 U-100 Insulin] omeprazole 20 mg FEEDING TUBE BID 01/26/21 Allergies Allergy/AdvReac Type Severity Reaction Status Date / Time codeine Allergy Unknown Unverified 01/26/21 22:48 erythromycin base Allergy Unknown Unverified 01/26/21 22:48 hydrocodone Allergy Unknown Unverified 01/26/21 22:48 ibuprofen Allergy Unknown Unverified 01/26/21 22:48 Iodinated Contrast Media Allergy Unknown Unverified 01/26/21 22:48 meperidine Allergy Unknown Unverified 01/26/21 22:48 mepivacaine [From Carbocaine] Allergy Unknown Unverified 01/26/21 22:48 propoxyphene Allergy Unknown Unverified 01/26/21 22:48 shellfish derived Allergy Hives Unverified 01/26/21 22:48 Sulfa (Sulfonamide Allergy Unknown Verified 01/26/21 22:48 Antibiotics) Review of Systems Review of Systems: Gen.: Denies fevers or chills ENT: Denies congestion Respiratory: Denies shortness of breath CV: Denies chest pain GI: Denies abdominal pain nausea, emesis Musculoskeletal: Denies back pain or muscle pain Neuro: Denies headache Skin: Denies rash Except as documented, all other systems reviewed and negative [facility] Past Medical History Medical History Chronic GERD DM2 (diabetes mellitus, type 2) Surgical History Surgical History History of brain surgery resection of brain tumor Family History Family History Sibling Breast cancer Father Lung cancer Social History Social History Social History: according to her records she does not smoke or drink any more however she is listed as a former smoker. she lives in a [facility] . She is listed as . she does have a durable power honest john rocket crew member for healthcare. She has a armaan Lenin [phone] is a durable power honest john rocket crew member. She also has her brother Larry listed as a social contact worker [phone]. Spiritual care concerns: No Exam Narrative: APPEARANCE: No acute distress, nontoxic, resting in bed EYES: EOMI HEENT: Normocephalic, atraumatic, oral mucosa dry RESPIRATORY: No respiratory distress Clear to auscultation bilaterally with no rhonchi wheezing or rales. CARDIOVASCULAR: Regular rate and rhythm without murmurs rubs or gallops. ABDOMINAL: Soft, nontender, nondistended, no rebound or guarding PEG tube present MUSCULOSKELETAl: No clubbing, cyanosis or edema. NEURO: Awake and alert x1. Following commands, speech normal, no focal deficits SKIN:: Warm, dry. No rashes lesions or abrasions PSYCHIATRIC: Normal affect/mood, Course Course Emergency Course: Reviewed records from facility patient had sodium level of 151 Called and discussed with Dr. Wyman presentation work-up discussed current sodium level 148 agrees with plan for discharge agrees with plan for Keflex for UTI Discussed with patient results of workup and diagnosis. Discussed need for follow-up with primary care, proper use of medication, and reasons to return to the emergency department. Patient understands and agrees to current treatm
[2021-01-26 19:32] LABS: Basophils Absolute Auto 0.1 K/mm3 (0.0-0.1); Basophils Percent Auto 0.7 % (0.2-1.2); Eosinophils Absolute Auto 0.4 K/mm3 (0-0.3); Eosinophils Percent Auto 2.8 % (0-4.4); Hematocrit 36.5 % (37.0-47.0); Immature Granulocyte Absolute 0.09 K/mm3 (0.00-0.031); Immature Granulocyte Percent A 0.7 % (0-0.5); Lymphocytes Absolute Auto 3.84 K/mm3 (0.9-3.2); Lymphocytes Percent Auto 30.2 % (18.3-44.2); Mean Corpuscular HGB Conc 30.1 g/dl (32-36); Mean Corpuscular Hemoglobin 26.4 pg (26-34); Mean Corpuscular Volume 87.7 fl (80-100); Mean Platelet Volume 9.8 fl (7.4-10.4); Monocytes Absolute Auto 0.6 K/mm3 (0.1-0.6); Monocytes Percent Auto 4.3 % (2.6-8.5); Neutrophils Absolute Auto 7.8 K/mm3 (1.3-6.7); Neutrophils Percent Auto 61.3 % (45.5-73.1); Platelet Count Result 336 k/mm3 (150-375); Red Blood Count 4.16 M/mm3 (4.2-5.4); Red Cell Distribution Width 16.8 % (11.5-14.5); White Blood Count 12.7 K/mm3 (4.5-10.0)
[2021-01-26] MEDS: SODIUM CHLORIDE 0.9% IV 1,000 ML 999 ML IV CONT (19:35)
[2021-01-26 19:43] LABS: Alanine Aminotransferase 26 U/L (4-35); Albumin Level 4.2 g/dL (3.5-5.1); Alkaline Phosphatase 74 U/L (38-126); Anion Gap 6 mmol/L (8-16); Aspartate Amino Transferase 27 U/L (14-36); Bilirubin,Total 0.3 mg/dL (0.2-1.3); Blood Urea Nitrogen 25 mg/dL (7-17); Calcium 9.6 mg/dL (8.4-10.2); Carbon Dioxide 32 mmol/L (22-30); Chloride 110 mmol/L (98-107); Estimated CRCL calculation 72 ml/min; Estimated Glomerular Filt Rate > 60; Glucose 124 mg/dL (65-110); Magnesium 2.2 mg/dL (1.6-2.3); Potassium 3.8 mmol/L (3.4-5.0); Sodium 148 mmol/L (137-145)
[2021-01-26 21:44] LABS: Add Urine Microscopic? YES; Appearance Urine Cloudy (Clear); Bilirubin Urine Negative (Negative); Budding Yeast Urine Present /hpf; Color Urine Yellow (Yellow); Glucose Urine UA Negative (Negative); Ketones Urine Negative (Negative); Leukocyte Esterase Ur 2+ LEU/UL (Negative); Mucus Urine Rare /lpf; Nitrate Urine Negative (Negative); Protein Urine 1+ mg/dL (Negative); Squamous Epithelial Cell Urine Few /hpf (Few)
[2021-01-26 21:50] LABS: Blood Urine Negative (Negative)
[2021-01-26 22:22] VITALS: BP 113/59; PULSE 79; RESP 18; O2SAT 99
[2021-01-26 22:38] LABS: INR > 19.0; Prothrombin Time > 120.0 Seconds (11.1-14.7)
[2021-01-26 22:40] LABS: Partial Thromboplastin Time > 200.0 SECONDS (22.3-36.8)
[2021-01-26 23:21] LABS: INR 1.1
[2021-01-26 23:22] LABS: Partial Thromboplastin Time 29.8 SECONDS (22.3-36.8)
[2021-01-26 23:23] VITALS: BP 124/69; PULSE 80; RESP 22; O2SAT 94
--- NOTE | 2021-01-26 23:23 | PC.NURSE ---
Assumed care of pt at this time, report received from Marielle. Pt alert per baseline, supine on stretcher. Pt repositioned.
[2021-01-26 23:32] LABS: Prothrombin Time 14.1 Seconds (11.1-14.7)
--- NOTE | 2021-01-27 00:05 | PC.NURSE ---
Spoke with [facility] esposito. Updated on pts POC.
--- NOTE | 2021-01-27 00:26 | PC.NURSE ---
spoke with [facility] to request transport. They will call back. Called [facility] to request transport. The willl call back.
--- NOTE | 2021-01-27 00:33 | PC.NURSE ---
called [facility] to request transport. ETA [id number]
[2021-01-27 01:26] VITALS: BP 113/48; PULSE 78; RESP 20
--- NOTE | 2021-01-27 01:47 | PC.NURSE ---
No return call from [facility]. Called [facility] to request transport. declined
[2021-01-27 02:50] VITALS: BP 131/72; PULSE 84; RESP 20; O2SAT 94
--- NOTE | 2021-01-27 03:21 | PC.NURSE ---
[facility] here.
--- NOTE | 2021-01-27 03:41 | PC.NURSE ---
EMS arrived to transport pt, report given. Pt alert and supine on stretcher per baseline during transport out of ED.
== END 2021-01-27 03:41 | disposition home or self-care (01) ==
PROVIDERS: Emergency Provider Emergency Medicine; PCP Orthopaedic Surgery Orthopaedic Trauma
DX: N39.0 Urinary tract infection, site not specified (principal); E86.0 Dehydration; E87.0 Hyperosmolality and hypernatremia; E11.9 Type 2 diabetes mellitus without complications; K21.9 Gastro-esophageal reflux disease without esophagitis; Z93.1 Gastrostomy status; Z79.4 Long term (current) use of insulin; Z87.891 Personal history of nicotine dependence; F03.90 Unspecified dementia, unspecified severity, without behavioral disturbance, psychotic disturbance, mood disturbance, and anxiety; Z85.841 Personal history of malignant neoplasm of brain; Z86.16 Personal history of COVID-19
CPT/HCPCS: 36415; 80053; 81001; 83735; 85025; 85610; 85730; 87086; 87147; 87181; 87186; 96361; 96365; 99284; J0696; J7030

== ENCOUNTER 2021-02-12 20:29 | Emergency (ER) | payer MEDICARE, MEDICAID, SELFPAY ==
[2021-02-12 20:35] VITALS: BP 136/78; PULSE 74; RESP 16; TEMP 36.6; O2SAT 98
--- NOTE | 2021-02-12 21:21 | ED.ABDPAIN ---
HPI - Abdominal Pain General Chief Complaint: Unspecified Stated Complaint: g tube clogged Time Seen by Provider: 02/12/21 20:32 Source: EMS Mode of arrival: EMS Limitations: dementia History of Present Illness HPI narrative: 76-year-old female with an extensive medical history alert and oriented x1 with G-tube in place sent from [facility] for clogged G-tube. Upon arrival nurse was able to unclog G-tube without difficulty. Patient with no other complaints. Afebrile. Abdomen soft nondistended Related Data Home Medications Medication Instructions Recorded Confirmed omeprazole 20 mg FEEDING TUBE BID 01/28/20 01/01/21 ascorbic acid (vitamin C) [Vitamin 500 mg FEEDING TUBE DAILY 03/16/20 01/01/21 C] cholecalciferol (vitamin D3) 1,250 mcg FEEDING TUBE WEEKLY 03/17/20 01/01/21 lactulose 15 ml FEEDING TUBE Q8-10H PRN 03/17/20 01/01/21 albuterol sulfate 2.5 mg INHALATION Q6HRT PRN 06/11/20 01/01/21 Fleet Enema 118 ml RECTAL DAILY PRN 12/26/20 01/01/21 umeclidinium-vilanterol 1 inh INHALATION DAILY PRN 12/26/20 01/01/21 Saccharomyces boulardii 250 mg FEEDING TUBE BID 01/01/21 01/01/21 bisacodyl 10 mg RECTAL DAILY PRN 01/01/21 01/01/21 chlorhexidine gluconate 15 ml PO BID 01/01/21 01/01/21 d-mannose 500 mg DAILY 01/01/21 01/01/21 diclofenac sodium 1 applic TOPICAL BID PRN 01/01/21 01/01/21 guaifenesin 200 mg FEEDING TUBE Q6H PRN 01/01/21 01/01/21 insulin aspart U-100 [Novolog 12 unit SUBCUT Q6HR 01/01/21 01/01/21 U-100 Insulin aspart] magnesium citrate [Citroma] 296 ml FEEDING TUBE DAILY PRN 01/01/21 01/01/21 magnesium hydroxide 30 ml FEEDING TUBE HS PRN 01/01/21 01/01/21 ondansetron HCl 4 mg FEEDING TUBE Q6H PRN 01/01/21 01/01/21 Saccharomyces boulardii [Florastor] 250 mg FEEDING TUBE BID 01/26/21 insulin glargine [Basaglar KwikPen 20 unit SUBCUT DAILY 01/26/21 U-100 Insulin] omeprazole 20 mg FEEDING TUBE BID 01/26/21 Allergies Allergy/AdvReac Type Severity Reaction Status Date / Time shellfish derived Allergy Unknown Hives Verified 02/25/21 14:13 codeine Allergy Unknown Verified 02/25/21 14:13 erythromycin base Allergy Unknown Verified 02/25/21 14:13 hydrocodone Allergy Unknown Verified 02/25/21 14:13 ibuprofen Allergy Unknown Verified 02/25/21 14:13 Iodinated Contrast Media Allergy Unknown Verified 02/25/21 14:13 meperidine Allergy Unknown Verified 02/25/21 14:13 mepivacaine [From Carbocaine] Allergy Unknown Verified 02/25/21 14:13 propoxycaine Allergy Unknown Verified 02/25/21 14:13 propoxyphene Allergy Unknown Verified 02/25/21 14:13 Sulfa (Sulfonamide Allergy Unknown Verified 02/25/21 14:13 Antibiotics) Review of Systems Review of Systems: ROS unobtainable: Yes unobtainable due to mental status PMFSH Past Medical History Medical History Chronic GERD Chronic GERD Chronic indwelling Hodge catheter COVID-19 DM2 (diabetes mellitus, type 2) DM2 (diabetes mellitus, type 2) Elevated transaminase level Appears chronic Gastroesophageal reflux disease History of kidney stones Hypokalemia 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 UTI (urinary tract infection) Surgical History Surgical History Gastrointestinal tube in situ (~02/2020) History of brain surgery resection of brain tumor History of brain surgery resection of brain tumor History of brain surgery resection of brain tumor History of brain surgery resection of brain tumor History of craniotomy Right frontal lobe craniotomy with resection of oligodendroglioma. Family History Family History Mother Diabetes mellitus Father Lung cancer Sibling Breast cancer she has Sibling Breast cancer Father Lung cancer Social History Social History (Reviewed 02/25/21
--- NOTE | 2021-02-12 21:26 | PC.NURSE ---
flushed g-tube with saline. Gtube flushes normally. no resistance noted. Dr genao.
[2021-02-12 21:41] VITALS: BP 136/74; PULSE 74; RESP 16; O2SAT 99
[2021-02-12 21:43] VITALS: BP 130/71; PULSE 77; RESP 16; O2SAT 99
== END 2021-02-12 23:30 ==
PROVIDERS: Emergency Provider Emergency Medicine; PCP Orthopaedic Surgery Orthopaedic Trauma
DX: K94.23 Gastrostomy malfunction (principal); E11.9 Type 2 diabetes mellitus without complications; K21.9 Gastro-esophageal reflux disease without esophagitis; Z85.841 Personal history of malignant neoplasm of brain; Z86.16 Personal history of COVID-19; Z87.442 Personal history of urinary calculi; Z87.440 Personal history of urinary (tract) infections; Z79.4 Long term (current) use of insulin; Z87.891 Personal history of nicotine dependence
CPT/HCPCS: 99284

== ENCOUNTER 2021-02-16 00:19 | Emergency (ER) | payer MEDICARE, MEDICAID, SELFPAY ==
[2021-02-16 00:18] VITALS: BP 106/58; PULSE 67; RESP 14; TEMP 36; O2SAT 96
--- NOTE | 2021-02-16 00:25 | PC.NURSE ---
Irrigated tube with saline- tube now flushing well.
[2021-02-16 01:28] VITALS: BP 110/49; PULSE 76; RESP 20; O2SAT 95
--- NOTE | 2021-02-16 01:28 | PC.NURSE ---
per Francisco, nurse, at [facility] they said it would be ok to send pt back with clamp on gtube and that they would talk with their physician in the morning regarding replacing the port. Francisco made aware the gtube is patent and flushing/aspirating with ease.
--- NOTE | 2021-02-16 01:32 | ED.GENADULT ---
HPI - General Adult General Chief complaint: Unspecified Stated complaint: g tube malfunction Source: EMS, RN notes reviewed and old records reviewed Mode of arrival: EMS Limitations: physical limitation History of Present Illness HPI narrative: This is a 76 year old female who comes from [facility] for [facility]ged [facility] tube. EMS reported patient's g tube had been clogged since 4 pm. On arrival, our nursing staff was able to flush g tube without any issue. Patient is alert and awake and nonverbal at baseline. She shakes her head no when asked if she had any pain. Related Data Home Medications Medication Instructions Recorded Confirmed omeprazole 20 mg FEEDING TUBE BID 01/28/20 01/01/21 ascorbic acid (vitamin C) [Vitamin 500 mg FEEDING TUBE DAILY 03/16/20 01/01/21 C] cholecalciferol (vitamin D3) 1,250 mcg FEEDING TUBE WEEKLY 03/17/20 01/01/21 lactulose 15 ml FEEDING TUBE Q8-10H PRN 03/17/20 01/01/21 albuterol sulfate 2.5 mg INHALATION Q6HRT PRN 06/11/20 01/01/21 Fleet Enema 118 ml RECTAL DAILY PRN 12/26/20 01/01/21 umeclidinium-vilanterol 1 inh INHALATION DAILY PRN 12/26/20 01/01/21 Saccharomyces boulardii 250 mg FEEDING TUBE BID 01/01/21 01/01/21 bisacodyl 10 mg RECTAL DAILY PRN 01/01/21 01/01/21 chlorhexidine gluconate 15 ml PO BID 01/01/21 01/01/21 d-mannose 500 mg DAILY 01/01/21 01/01/21 diclofenac sodium 1 applic TOPICAL BID PRN 01/01/21 01/01/21 guaifenesin 200 mg FEEDING TUBE Q6H PRN 01/01/21 01/01/21 insulin aspart U-100 [Novolog 12 unit SUBCUT Q6HR 01/01/21 01/01/21 U-100 Insulin aspart] magnesium citrate [Citroma] 296 ml FEEDING TUBE DAILY PRN 01/01/21 01/01/21 magnesium hydroxide 30 ml FEEDING TUBE HS PRN 01/01/21 01/01/21 ondansetron HCl 4 mg FEEDING TUBE Q6H PRN 01/01/21 01/01/21 Allergies Allergy/AdvReac Type Severity Reaction Status Date / Time shellfish derived Allergy Unknown Hives Verified 02/16/21 00:34 codeine Allergy Unknown Verified 02/16/21 00:34 erythromycin base Allergy Unknown Verified 02/16/21 00:34 hydrocodone Allergy Unknown Verified 02/16/21 00:34 ibuprofen Allergy Unknown Verified 02/16/21 00:34 Iodinated Contrast Media Allergy Unknown Verified 02/16/21 00:34 meperidine Allergy Unknown Verified 02/16/21 00:34 mepivacaine [From Carbocaine] Allergy Unknown Verified 02/16/21 00:34 propoxycaine Allergy Unknown Verified 02/16/21 00:34 propoxyphene Allergy Unknown Verified 02/16/21 00:34 Sulfa (Sulfonamide Allergy Unknown Verified 02/16/21 00:34 Antibiotics) Review of Systems Review of Systems: ROS unobtainable: Yes unobtainable due to medical condition PMFSH Past Medical History Medical History Chronic GERD Chronic indwelling Hodge catheter COVID-19 DM2 (diabetes mellitus, type 2) Elevated transaminase level Appears chronic Gastroesophageal reflux disease History of kidney stones Hypokalemia 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 UTI (urinary tract infection) Surgical History Surgical History Gastrointestinal tube in situ (~02/2020) History of brain surgery resection of brain tumor History of brain surgery resection of brain tumor History of brain surgery resection of brain tumor History of craniotomy Right frontal lobe craniotomy with resection of oligodendroglioma. Family History Family History Mother Diabetes mellitus Father Lung cancer Sibling Breast cancer she has Social History Social History Social History: The patient is currently a resident at [facility]. She smoked for approximately 46 years and quit in October 2017. No mention of alcohol or illicit substance abuse. Her niece, Julia Phelps,
--- NOTE | 2021-02-16 01:48 | PC.NURSE ---
made contact with [facility] to transfer pt back to [facility] in [place]. rod eta 10 minutes
[2021-02-16 02:02] VITALS: BP 111/69; PULSE 73; RESP 14; O2SAT 96
--- NOTE | 2021-02-16 02:30 | PC.NURSE ---
made contact with [facility] for a new eta. New eta with [facility] is [id number]
[2021-02-16 03:39] VITALS: BP 107/54; PULSE 73; RESP 14; TEMP 36; O2SAT 95
--- NOTE | 2021-02-16 04:11 | PC.NURSE ---
[facility] has arrived to take pt [facility]
== END 2021-02-16 04:13 ==
PROVIDERS: Emergency Provider General Practice; PCP Orthopaedic Surgery Orthopaedic Trauma
DX: K94.23 Gastrostomy malfunction (principal); K21.9 Gastro-esophageal reflux disease without esophagitis; E11.9 Type 2 diabetes mellitus without complications; Z85.841 Personal history of malignant neoplasm of brain; Z86.16 Personal history of COVID-19; Z87.440 Personal history of urinary (tract) infections; Z87.442 Personal history of urinary calculi; Z92.3 Personal history of irradiation; Z79.4 Long term (current) use of insulin
CPT/HCPCS: 99284

== ENCOUNTER 2021-02-25 14:07 | Emergency (ER) | payer MEDICARE, MEDICAID, SELFPAY ==
--- NOTE | ~2021-02-25 | XR_ITS ---
EXAMINATION: XR G tube evaluation w imaging DATE: 02/25/2021 15:20 INDICATION: Gastrostomy tube adjustment. TECHNIQUE: A single supine view of the abdomen was obtained. COMPARISON: Abdomen radiograph 03/23/2020 FINDINGS: There are no dilated loops of bowel. There is a gastrostomy tube with balloon at the pyloru s. There is contrast in the catheter and in the stomach and small bowel. No extraluminal contrast. IMPRESSION: 1. Gastrostomy tube in the stomach with balloon at the pylorus. Reviewed, dictated and finalized at location A. E WRECKER
[2021-02-25 14:07] VITALS: BP 158/87; RESP 16; TEMP 36.5; O2SAT 95
--- NOTE | 2021-02-25 14:20 | ED.GENADULT ---
HPI - General Adult General Chief complaint: Recheck/Abnormal Lab/Rx Stated complaint: RUPTURED G TUBE Time Seen by Provider: 02/25/21 14:10 Source: patient History of Present Illness HPI narrative: Patient is a 76 y/o female sent from from [place] for G-tube malfunction. Patient has G tube for feeding and they noticed there is an opening on the side of tube causing leakage. There is no known alleviating or exacerbating factor. Patient is unable to offer any complaint. Related Data Home Medications Medication Instructions Recorded Confirmed omeprazole 20 mg FEEDING TUBE BID 01/28/20 01/01/21 ascorbic acid (vitamin C) [Vitamin 500 mg FEEDING TUBE DAILY 03/16/20 01/01/21 C] cholecalciferol (vitamin D3) 1,250 mcg FEEDING TUBE WEEKLY 03/17/20 01/01/21 lactulose 15 ml FEEDING TUBE Q8-10H PRN 03/17/20 01/01/21 albuterol sulfate 2.5 mg INHALATION Q6HRT PRN 06/11/20 01/01/21 Fleet Enema 118 ml RECTAL DAILY PRN 12/26/20 01/01/21 umeclidinium-vilanterol 1 inh INHALATION DAILY PRN 12/26/20 01/01/21 Saccharomyces boulardii 250 mg FEEDING TUBE BID 01/01/21 01/01/21 bisacodyl 10 mg RECTAL DAILY PRN 01/01/21 01/01/21 chlorhexidine gluconate 15 ml PO BID 01/01/21 01/01/21 d-mannose 500 mg DAILY 01/01/21 01/01/21 diclofenac sodium 1 applic TOPICAL BID PRN 01/01/21 01/01/21 guaifenesin 200 mg FEEDING TUBE Q6H PRN 01/01/21 01/01/21 insulin aspart U-100 [Novolog 12 unit SUBCUT Q6HR 01/01/21 01/01/21 U-100 Insulin aspart] magnesium citrate [Citroma] 296 ml FEEDING TUBE DAILY PRN 01/01/21 01/01/21 magnesium hydroxide 30 ml FEEDING TUBE HS PRN 01/01/21 01/01/21 ondansetron HCl 4 mg FEEDING TUBE Q6H PRN 01/01/21 01/01/21 Saccharomyces boulardii [Florastor] 250 mg FEEDING TUBE BID 01/26/21 insulin glargine [Basaglar KwikPen 20 unit SUBCUT DAILY 01/26/21 U-100 Insulin] omeprazole 20 mg FEEDING TUBE BID 01/26/21 Allergies Allergy/AdvReac Type Severity Reaction Status Date / Time shellfish derived Allergy Unknown Hives Verified 02/25/21 14:13 codeine Allergy Unknown Verified 02/25/21 14:13 erythromycin base Allergy Unknown Verified 02/25/21 14:13 hydrocodone Allergy Unknown Verified 02/25/21 14:13 ibuprofen Allergy Unknown Verified 02/25/21 14:13 Iodinated Contrast Media Allergy Unknown Verified 02/25/21 14:13 meperidine Allergy Unknown Verified 02/25/21 14:13 mepivacaine [From Carbocaine] Allergy Unknown Verified 02/25/21 14:13 propoxycaine Allergy Unknown Verified 02/25/21 14:13 propoxyphene Allergy Unknown Verified 02/25/21 14:13 Sulfa (Sulfonamide Allergy Unknown Verified 02/25/21 14:13 Antibiotics) Review of Systems Review of Systems: ROS unobtainable: Yes unobtainable due to medical condition PMFSH Past Medical History Medical History Chronic GERD Chronic GERD Chronic indwelling Hodge catheter COVID-19 DM2 (diabetes mellitus, type 2) DM2 (diabetes mellitus, type 2) Elevated transaminase level Appears chronic Gastroesophageal reflux disease History of kidney stones Hypokalemia 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 UTI (urinary tract infection) Surgical History Surgical History Gastrointestinal tube in situ (~02/2020) History of brain surgery resection of brain tumor History of brain surgery resection of brain tumor History of brain surgery resection of brain tumor History of brain surgery resection of brain tumor History of craniotomy Right frontal lobe craniotomy with resection of oligodendroglioma. Family History Family History Mother Diabetes mellitus Father Lung cancer Sibling Breast cancer she has Sibling Breast cancer Father Lung cancer Social History Social History So
[2021-02-25 16:48] VITALS: BP 136/89; PULSE 84; RESP 16; O2SAT 97
== END 2021-02-25 16:51 ==
PROVIDERS: Emergency Provider Emergency Medicine; PCP Family Medicine
DX: K94.23 Gastrostomy malfunction (principal); K21.9 Gastro-esophageal reflux disease without esophagitis; E11.9 Type 2 diabetes mellitus without complications; Z87.442 Personal history of urinary calculi; Z79.4 Long term (current) use of insulin
CPT/HCPCS: 49465; 99284

== ENCOUNTER 2021-02-27 12:04 | Inpatient (IN) | payer MEDICARE, MEDICAID, SELFPAY ==
[2021-02-27] VITALS (52 sets, daily range): BP systolic 83–160; BP diastolic 40–96; PULSE 95–120; RESP 12–33; TEMP 35.8–36.6; O2SAT 93–100
--- NOTE | ~2021-02-27 | CT_ITS ---
EXAMINATION: CT brain wo con DATE: 02/27/2021 12:32 INDICATION: Altered mental status. Anaplastic oligodendroglioma. TECHNIQUE: Computed tomography (CT) of the head was performed without intravenous contrast. The mA wa s adjusted according to patient size. Iterative reconstruction technique was employed. The dose-lengt h product was 605.33 mGy-cm. COMPARISON: Head CT 12/25/2020, brain MRI 05/10/2020 FINDINGS: There are changes of resection of anterior right frontal lobe. There is a large calcified m ass involving the frontal lobes, right temporal lobe, right insula, right basal ganglia, and right th alamus. There is a large distribution of decreased attenuation involving the white matter with a fron ashley lobe predominance. There is no acute ischemic infarct or intracranial hemorrhage. There is an old lacunar infarct in the right basal ganglia. There is ex vacuo dilatation of the anterior bodies of t he lateral ventricles. There is mucosal thickening in sphenoid sinus with thickening and sclerosis of the sinus cash, consistent with chronic sinusitis. The mastoid air cells are normal. There are molina ges of right-sided craniotomy. The orbits are normal. IMPRESSION: 1. Calcified mass involving the frontal lobes, right temporal lobe, right insula, right basal ganglia , and right thalamus status post resection of anterior right frontal lobe, consistent with residual a naplastic oligodendroglioma, stable from 12/25/20. 2. Stable white matter disease with a frontal lobe predominance, likely a combination of chronic smal l vessel ischemic disease and changes of radiation therapy. 3. Old lacunar infarct in the right basal ganglia. Reviewed, dictated and finalized at location A. H THERAPIST IMPRESSION: 1. 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 2. Stable white matter disease with a frontal lobe predominance, likely a combi nation of chronic small vessel ischemic disease and changes of radiation therap y. 3. Old lacunar infarct in the right basal ganglia.
--- NOTE | ~2021-02-27 | XR_ITS ---
EXAMINATION: XR chest 1V portable EXAM DATE: 03/03/2021 18:28 INDICATION: Pneumonia. TECHNIQUE: Portable AP frontal chest x-ray was obtained. Comparison is made to prior examination from 02/27/2021. FINDINGS: Subsegmental left basilar atelectasis or pneumonia. The lungs are otherwise clear. Possible small left pleural effusion. The cardiomediastinal silhouette is prominent but magnified on this AP technique. There are bony degenerative changes. IMPRESSION: 1. Subsegmental left basilar atelectasis or pneumonia. Reviewed, dictated and finalized at location A. KEY PERSON
--- NOTE | ~2021-02-27 | XR_ITS ---
EXAMINATION: XR chest 2V DATE: 02/27/2021 12:36 INDICATION: Hypoxia TECHNIQUE: AP and lateral views of the chest are obtained. COMPARISON: 12/31/2020 FINDINGS: The lungs are free of acute opacities. There is no pleural effusion or pneumothorax. The ca rdiomediastinal silhouette is normal. There is moderate thoracic spondylosis. A small amount of enter ic contrast is seen from recent G-tube evaluation. IMPRESSION: 1. No acute cardiopulmonary abnormality. Reviewed, dictated and finalized at location A. RTISING DESIGNER
--- NOTE | 2021-02-27 12:12 | ED.GENADULT ---
HPI - General Adult General Chief complaint: Nausea/Vomiting/Diarrhea Stated complaint: VOMITING,COUGH Time Seen by Provider: 02/27/21 12:06 History of Present Illness HPI narrative: 76-year-old female presenting to the emergency department from a local senior living for evaluation of altered mental status and increased cough congestion. [facility] states that the patient is normally responsive verbally and is normally alert to self. Patient does normally have tube feedings. They state that last night she did have a tube feeding and subsequently had increased emesis and subsequent cough. Chest x-ray done at that time showed no acute focal infiltrate. Today the patient had decreased verbal responsiveness. Patient also has increased cough and did have some hypoxia. Upon arrival to the emergency department patient was 86% on room air and was placed on 2 L of oxygen by nasal cannula. Related Data Home Medications Medication Instructions Recorded Confirmed omeprazole 20 mg FEEDING TUBE BID 01/28/20 01/01/21 ascorbic acid (vitamin C) [Vitamin 500 mg FEEDING TUBE DAILY 03/16/20 01/01/21 C] cholecalciferol (vitamin D3) 1,250 mcg FEEDING TUBE WEEKLY 03/17/20 01/01/21 lactulose 15 ml FEEDING TUBE Q8-10H PRN 03/17/20 01/01/21 albuterol sulfate 2.5 mg INHALATION Q6HRT PRN 06/11/20 01/01/21 Fleet Enema 118 ml RECTAL DAILY PRN 12/26/20 01/01/21 umeclidinium-vilanterol 1 inh INHALATION DAILY PRN 12/26/20 01/01/21 Saccharomyces boulardii 250 mg FEEDING TUBE BID 01/01/21 01/01/21 bisacodyl 10 mg RECTAL DAILY PRN 01/01/21 01/01/21 chlorhexidine gluconate 15 ml PO BID 01/01/21 01/01/21 d-mannose 500 mg DAILY 01/01/21 01/01/21 diclofenac sodium 1 applic TOPICAL BID PRN 01/01/21 01/01/21 guaifenesin 200 mg FEEDING TUBE Q6H PRN 01/01/21 01/01/21 insulin aspart U-100 [Novolog 12 unit SUBCUT Q6HR 01/01/21 01/01/21 U-100 Insulin aspart] magnesium citrate [Citroma] 296 ml FEEDING TUBE DAILY PRN 01/01/21 01/01/21 magnesium hydroxide 30 ml FEEDING TUBE HS PRN 01/01/21 01/01/21 ondansetron HCl 4 mg FEEDING TUBE Q6H PRN 01/01/21 01/01/21 Saccharomyces boulardii [Florastor] 250 mg FEEDING TUBE BID 01/26/21 insulin glargine [Basaglar KwikPen 20 unit SUBCUT DAILY 01/26/21 U-100 Insulin] omeprazole 20 mg FEEDING TUBE BID 01/26/21 Allergies Allergy/AdvReac Type Severity Reaction Status Date / Time shellfish derived Allergy Unknown Hives Verified 02/25/21 14:13 codeine Allergy Unknown Verified 02/25/21 14:13 erythromycin base Allergy Unknown Verified 02/25/21 14:13 hydrocodone Allergy Unknown Verified 02/25/21 14:13 ibuprofen Allergy Unknown Verified 02/25/21 14:13 Iodinated Contrast Media Allergy Unknown Verified 02/25/21 14:13 meperidine Allergy Unknown Verified 02/25/21 14:13 mepivacaine [From Carbocaine] Allergy Unknown Verified 02/25/21 14:13 propoxycaine Allergy Unknown Verified 02/25/21 14:13 propoxyphene Allergy Unknown Verified 02/25/21 14:13 Sulfa (Sulfonamide Allergy Unknown Verified 02/25/21 14:13 Antibiotics) Review of Systems Review of Systems: ROS unobtainable: Yes unobtainable due to mental status (Patient is nonverbal.) [facility] Past Medical History Medical History Chronic GERD Chronic GERD Chronic indwelling Hodge catheter COVID-19 DM2 (diabetes mellitus, type 2) DM2 (diabetes mellitus, type 2) Elevated transaminase level Appears chronic Gastroesophageal reflux disease History of kidney stones Hypokalemia 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 UTI (urinary tract infection) Surgical History Surgical History Gastrointestinal tube in situ (~02/2020) History of brain surgery resection of brain tumor History of brain surgery resection of brain tumor History of brain surgery resection of brain tumor History of bra
[2021-02-27 12:54] LABS: Basophils Absolute Auto 0.1 K/mm3 (0.0-0.1); Basophils Percent Auto 0.7 % (0.2-1.2); Eosinophils Absolute Auto 0.4 K/mm3 (0-0.3); Hematocrit 44.1 % (37.0-47.0); Hemoglobin 13.4 g/dL (12.0-15.0); Immature Granulocyte Absolute 0.14 K/mm3 (0.00-0.031); Immature Granulocyte Percent A 0.8 % (0-0.5); Lymphocytes Absolute Auto 4.23 K/mm3 (0.9-3.2); Lymphocytes Percent Auto 24.4 % (18.3-44.2); Mean Corpuscular HGB Conc 30.4 g/dl (32-36); Mean Corpuscular Hemoglobin 25.8 pg (26-34); Mean Corpuscular Volume 84.8 fl (80-100); Mean Platelet Volume 9.4 fl (7.4-10.4); Monocytes Absolute Auto 0.9 K/mm3 (0.1-0.6); Monocytes Percent Auto 5.1 % (2.6-8.5); Neutrophils Absolute Auto 11.6 K/mm3 (1.3-6.7); Platelet Count Result 469 k/mm3 (150-375); Red Cell Distribution Width 16.7 % (11.5-14.5); White Blood Count 17.3 K/mm3 (4.5-10.0)
[2021-02-27 13:07] LABS: Alanine Aminotransferase 32 U/L (4-35); Albumin Level 4.9 g/dL (3.5-5.1); Alkaline Phosphatase 106 U/L (38-126); Anion Gap 12 mmol/L (8-16); Aspartate Amino Transferase 27 U/L (14-36); Bilirubin,Total 0.5 mg/dL (0.2-1.3); Blood Urea Nitrogen 59 mg/dL (7-17); Calcium 9.9 mg/dL (8.4-10.2); Carbon Dioxide 30 mmol/L (22-30); Chloride 95 mmol/L (98-107); Estimated Glomerular Filt Rate 40; Glucose 178 mg/dL (65-110); Sodium 137 mmol/L (137-145)
[2021-02-27] MEDS: SODIUM CHLORIDE 0.9% IV 1,000 ML 999 ML IV CONT (16:29)
[2021-02-27] MEDS: ERTAPENEM 1 GM/NS 50 ML 1 GM/50 ML BAG IVPB (16:35)
--- NOTE | 2021-02-27 17:21 | PC.NURSE ---
Pt had tiny smear of BM and wet depends. Pt cleaned up, clean depends applied. Pt repositioned in bed and provided warm blanket. IV fluids infusing. Waiting admission bed assignment. VS as documented.
[2021-02-27 18:16] LABS: Base Excess ABG 3.8 mEq/l (+/-2.0); Fractional Inspired Oxygen 24 %; HCO3 ABG 29.2 mEq/l (22.0-26.0); Oxygen Content ABG 15.5 %vol (16.0-22.0); Oxygen Saturation ABG 91.7 % (95.0-100.0); PCO2 ABG 47.3 mmHg (35.0-45.0); PO2 ABG 61.8 mmHg (80.0-100.0); PO2 FiO2 Ratio Arterial Blood 2.58 %; Total Hemoglobin 12.6 g/dL (12.0-18.0); pH ABG 7.408 (7.350-7.450)
[2021-02-27 18:22] LABS: Device NASAL CANNULA; Modified Allen's Test Pass; Oxyhemoglobin 87.6 % THb (90.0-100.0); Site Drawn LEFT RADIAL
--- NOTE | 2021-02-27 18:23 | PM.IMHP ---
H&P: HPI History of Present Illness Date/Time: 02/27/21 18:23 this is a 76-year-old female patient who resides at [facility]. The patient is in a near catatonic state. She has her legs tucked underneath the for and is not answering my questions. Patient has increased cough cough and congestion. According to the records the patient is normally responsive and is normally alert to herself. The patient does typically have a tube feedings and it looks like maybe glucerna. The patient is difficult to arouse. I garima ABGs and she was hypoxic but her pH was normal. The patient had an increased cough and had some hypoxia upon arrival to the emergency room the patient was 86% on room air and was placed on oxygen at 2 L per nasal cannula. Her white count is noted to be 17.3. PH is 7.408. CO2 is il 61.8. Bicarb 29.2. The patient is on oxygen at 2 L per nasal. Creatinine 1.3. Blood sugar 178 chest x-ray was read as no acute cardiopulmonary abnormality. Head CT was read as 1. 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 2. Stable white matter disease with a frontal lobe predominance, likely a combination of chronic small vessel ischemic disease and changes of radiation therapy. 3. Old lacunar infarct in the right basal ganglia. Patient was started on Invanz and normal saline. The patient is unresponsive so the information is obtained from records. The patient is positive for urinary tract infection. The patient is being admitted to inpatient status on 02/27/2021. Chief Complaint: Confused Review of Systems Review of Systems: All systems reviewed & are unremarkable except as noted in HPI and below ROS unobtainable: Yes unobtainable due to mental status Constitutional: Constitutional: Reports as per HPI and Reports no additional constitutional complaints Eyes: Eyes: Reports as per HPI and Reports no additional eye complaints ENT: Reports system reviewed and no additional complaints, except as documented and Reports Normal hearing present Cardiovascular: Cardiovascular: Reports no additional cardiovascular complaints Respiratory: Respiratory: Reports no additional respiratory complaints and Reports no additional respiratory complaints Gastrointestinal: Gastrointestinal: Reports as per HPI and Reports no additional gastrointestinal complaints Musculoskeletal: Musculoskeletal: Reports no additional musculoskeletal complaints Integumentary/Breasts: Skin/Breast: Reports system reviewed and no additional complaints, except as docu and Reports as per HPI Neurologic: Reports system reviewed and no additional complaints, except as documented, Reports as per HPI and Reports Normal hearing present Psychiatric: Psychiatric: Reports no additional psychiatric complaints and Reports as per HPI Endocrine: Endocrine: Reports no additional endocrine complaints Hematologic/Lymphatic: Hematologic/Lymphatic: Reports no additional hematologic/lymphatic complaints Allergic/Immunologic: Allergic/Immunologic: Reports no additional allergic/immunologic complaints PMFSH Past Medical History Medical History Chronic GERD Chronic GERD Chronic indwelling Hodge catheter COVID-19 DM2 (diabetes mellitus, type 2) DM2 (diabetes mellitus, type 2) Elevated transaminase level Appears chronic Gastroesophageal reflux disease History of kidney stones Hypokalemia 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 UTI (urinary tract infection) Surgical History Surgical History Gastrointestinal tube in situ (~02/2020) History of brain surgery resection of brain t
--- NOTE | 2021-02-27 18:42 | PC.NURSE ---
Monik WYNNE notified of pt's ABG results. Family notified of pt's admission room assignment.
[2021-02-27] MEDS: LACTATED RINGERS 1,000 ML 125 ML IV CONT (20:27)
[2021-02-27 21:05] LABS: Glucose Point of Care 144 mg/dl (65-105)
[2021-02-27 21:46] LABS: INR 1.1; Prothrombin Time 13.6 Seconds (11.1-14.7)
[2021-02-27 21:48] LABS: Alanine Aminotransferase 29 U/L (4-35); Estimated Glomerular Filt Rate 54
--- NOTE | 2021-02-27 21:54 | ADMGEN ---
This patient, Linette Vásquez, was admitted to [facility] Surg Room 330-01. Patient/family oriented to hospital policies and general routines including ID bracelet, bed and alarms, visiting hours, pain management, procedures, bathroom and other care routines, personal items, smoking policy, room service/diet, and visiting hours. Information on how to activate the Rapid Response Team has been discussed. Patient/Family are encouraged to report perceived risks to care and to ask questions if they do not understand what they are told or what they should do.
[2021-02-28] VITALS (9 sets, daily range): BP systolic 104–146; BP diastolic 42–75; PULSE 85–110; RESP 16–18; TEMP 35.7–37.1; O2SAT 92–100; BMI 24.0
[2021-02-28 00:51] LABS: Glucose Point of Care 165 mg/dl (65-105)
[2021-02-28] MEDS: LACTATED RINGERS 1,000 ML 125 ML IV CONT ×2 (04:24→14:31)
[2021-02-28 06:21] LABS: Glucose Point of Care 174 mg/dl (65-105)
[2021-02-28 09:26] LABS: Basophils Percent Auto 0.2 % (0.2-1.2); Hematocrit 36.9 % (37.0-47.0); Hemoglobin 11.2 g/dL (12.0-15.0); Immature Granulocyte Percent A 0.9 % (0-0.5); Lymphocytes Absolute Auto 1.71 K/mm3 (0.9-3.2); Lymphocytes Percent Auto 15.1 % (18.3-44.2); Mean Corpuscular HGB Conc 30.4 g/dl (32-36); Mean Corpuscular Hemoglobin 26.2 pg (26-34); Mean Corpuscular Volume 86.4 fl (80-100); Mean Platelet Volume 9.8 fl (7.4-10.4); Monocytes Absolute Auto 0.2 K/mm3 (0.1-0.6); Monocytes Percent Auto 1.8 % (2.6-8.5); Neutrophils Absolute Auto 9.3 K/mm3 (1.3-6.7); Platelet Count Result 371 k/mm3 (150-375); Red Blood Count 4.27 M/mm3 (4.2-5.4); Red Cell Distribution Width 16.2 % (11.5-14.5); White Blood Count 11.4 K/mm3 (4.5-10.0)
[2021-02-28 09:35] LABS: INR 1.1; Prothrombin Time 13.8 Seconds (11.1-14.7)
[2021-02-28 09:42] LABS: Lactic Acid Reflex 1.1 mmol/L (0.7-2.1)
[2021-02-28 09:54] LABS: Alanine Aminotransferase 28 U/L (4-35); Albumin Level 4.3 g/dL (3.5-5.1); Alkaline Phosphatase 84 U/L (38-126); Anion Gap 8 mmol/L (8-16); Aspartate Amino Transferase 26 U/L (14-36); Bilirubin,Total 0.3 mg/dL (0.2-1.3); Blood Urea Nitrogen 34 mg/dL (7-17); Calcium 9.3 mg/dL (8.4-10.2); Carbon Dioxide 28 mmol/L (22-30); Chloride 103 mmol/L (98-107); Estimated Glomerular Filt Rate > 60; Glucose 171 mg/dL (65-110); Lactate Dehydrogenase 344 U/L (313-618); Magnesium 2.1 mg/dL (1.6-2.3); Potassium 3.6 mmol/L (3.4-5.0); Sodium 139 mmol/L (137-145)
[2021-02-28 10:25] LABS: Thyroid Stimulating Hormone Reflex 0.892 uIU/mL (0.465-4.68)
--- NOTE | 2021-02-28 10:52 | PM.IMPN ---
Progress Note: A&P Assessment and Plan (1) UTI (urinary tract infection): Code(s): N39.0 - Urinary tract infection, site not specified Status: Acute Assessment and Plan: The patient was started on invanz since she has multiple allergies. Blood and urine cultures are pending. (2) Suspected COVID-19 virus infection: Code(s): Z20.822 - Contact with and (suspected) exposure to COVID-19 Status: Acute Assessment and Plan: Contact and droplet precautions. Chest x-ray looks clear. Follow-up SARS-CoV-2 PCR. (3) Acute renal failure: Qualifiers: Acute renal failure type: unspecified Qualified Code(s): N17.9 - Acute kidney failure, unspecified Code(s): N17.9 - Acute kidney failure, unspecified Status: Acute Assessment and Plan: The resolved nonoliguric acute kidney injury. Continue with gentle IV fluids. Creatinine improving as 0.7 today. (4) DM2 (diabetes mellitus, type 2): Qualifiers: Diabetes mellitus supervisor intermediates insulin use: with assisted use Diabetes mellitus complication status: with hyperglycemia Qualified Code(s): E11.65 - Type 2 diabetes mellitus with hyperglycemia; Z79.4 - supervisor intermediates (current) use of insulin Code(s): E11.9 - Type 2 diabetes mellitus without complications Status: Chronic Assessment and Plan: The patient has tube feedings. Fasting blood glucose 171. Accucheck was 169. We can continue the tube feedings. Will do Accu-Cheks every 6 hours. Subjective Date/time seen: Background: This is a 76-year-old female patient who resides at [facility]. The patient is in a near catatonic state. She has her legs tucked underneath the for and is not answering my questions. Patient has increased cough cough and congestion. According to the records the patient is normally responsive and is normally alert to herself. The patient does typically have a tube feedings and it looks like maybe glucerna. The patient is difficult to arouse. I garima ABGs and she was hypoxic but her pH was normal. The patient had an increased cough and had some hypoxia upon arrival to the emergency room the patient was 86% on room air and was placed on oxygen at 2 L per nasal cannula. Her white count is noted to be 17.3. PH is 7.408. CO2 is il 61.8. Bicarb 29.2. 02/28/21 10:52 Patient is examined at the bedside. She is noncommunicative. She was trying to remove the nasal cannula. She did not appear to be in distress. Review of Systems Review of Systems: All systems reviewed & are unremarkable except as noted in HPI and below ROS unobtainable: Yes unobtainable due to mental status Constitutional: Constitutional: Reports as per HPI and Reports no additional constitutional complaints Eyes: Eyes: Reports as per HPI and Reports no additional eye complaints ENT: Reports system reviewed and no additional complaints, except as documented, Reports as per HPI and Reports Normal hearing present Cardiovascular: Cardiovascular: Reports as per HPI and Reports no additional cardiovascular complaints Respiratory: Respiratory: Reports as per HPI, Reports no additional respiratory complaints and Reports no additional respiratory complaints Gastrointestinal: Gastrointestinal: Reports as per HPI and Reports no additional gastrointestinal complaints Musculoskeletal: Musculoskeletal: Reports no additional musculoskeletal complaints and Reports as per HPI Integumentary/Breasts: Skin/Breast: Reports system reviewed and no additional complaints, except as docu and Reports as per HPI Neurologic: Reports system reviewed and no additional complaints, except as documented, Reports as per HPI and Reports Normal hearing present Psychiatric: Psychiatric: Reports no additional psychiatric complaints and Reports as per HPI Endocrine: Endocrine: Reports no additional endocrine complaints Hematologic/Lymphatic: Hematologic/Lymphatic: Reports no additional hematolog
[2021-02-28 12:10] LABS: Glucose Point of Care 169 mg/dl (65-105)
[2021-02-28] MEDS: ERTAPENEM 1 GM/NS 50 ML 1 GM/50 ML BAG IVPB (16:18)
[2021-02-28] MEDS: LACTATED RINGERS 1,000 ML 60 ML IV CONT (16:19)
[2021-02-28 18:05] LABS: Glucose Point of Care 214 mg/dl (65-105)
[2021-02-28] MEDS: INSULIN ASPART (*BKC) 100 UNITS/ML SUB-Q (18:14)
[2021-02-28 20:26] LABS: SARS-CoV-2 RNA PCR Negative
[2021-02-28] MEDS: INSULIN GLARGINE (*BKC) 100 UNITS/ML 9 UNITS SUB-Q (21:11)
[2021-02-28 23:26] LABS: Glucose Point of Care 162 mg/dl (65-105)
[2021-03-01] VITALS (10 sets, daily range): BP systolic 116–149; BP diastolic 48–88; PULSE 80–112; RESP 17–18; TEMP 36.3–36.8; O2SAT 95–96
[2021-03-01 00:43] LABS: Glucose Point of Care 171 mg/dl (65-105)
[2021-03-01] MEDS: LACTATED RINGERS 1,000 ML 60 ML IV CONT (05:05)
[2021-03-01 06:02] LABS: Glucose Point of Care 162 mg/dl (65-105)
[2021-03-01 08:04] LABS: Prothrombin Time 12.9 Seconds (11.1-14.7)
[2021-03-01 08:08] LABS: Alanine Aminotransferase 41 U/L (4-35); Estimated CRCL calculation 49 ml/min; Estimated Glomerular Filt Rate > 60
[2021-03-01 09:35] LABS: Anion Gap 13 mmol/L (8-16); Blood Urea Nitrogen 30 mg/dL (7-17); Calcium 9.4 mg/dL (8.4-10.2); Carbon Dioxide 26 mmol/L (22-30); Chloride 106 mmol/L (98-107); Estimated CRCL calculation 49 ml/min; Estimated Glomerular Filt Rate > 60; Glucose 174 mg/dL (65-110); Potassium 3.4 mmol/L (3.4-5.0); Sodium 145 mmol/L (137-145)
[2021-03-01] MEDS: INSULIN ASPART (*BKC) 100 UNITS/ML SUB-Q ×2 (12:07→18:48)
[2021-03-01 13:05] LABS: Glucose Point of Care 234 mg/dl (65-105)
--- NOTE | 2021-03-01 15:09 | PM.IMPN ---
Progress Note: A&P Assessment and Plan (1) UTI (urinary tract infection): Code(s): N39.0 - Urinary tract infection, site not specified Status: Acute Assessment and Plan: The patient was started on invanz since she has multiple allergies. Switch the patient to vancomycin. Urine culture is growing Enterococcus. Blood cultures are pending. (2) Suspected COVID-19 virus infection: Code(s): Z20.822 - Contact with and (suspected) exposure to COVID-19 Status: Acute Assessment and Plan: Contact and droplet precautions. Chest x-ray looks clear. Follow-up SARS-CoV-2 PCR. (3) Acute renal failure: Qualifiers: Acute renal failure type: unspecified Qualified Code(s): N17.9 - Acute kidney failure, unspecified Code(s): N17.9 - Acute kidney failure, unspecified Status: Acute Assessment and Plan: The resolved nonoliguric acute kidney injury. Continue with gentle IV fluids. Creatinine improving as 0.7 today. (4) DM2 (diabetes mellitus, type 2): Qualifiers: Diabetes mellitus complication status: with hyperglycemia Diabetes mellitus subway car repairer insulin use: with subway car repairer use Qualified Code(s): E11.65 - Type 2 diabetes mellitus with hyperglycemia; Z79.4 - prison (current) use of insulin Code(s): E11.9 - Type 2 diabetes mellitus without complications Status: Chronic Assessment and Plan: The patient has tube feedings. Fasting blood glucose 179. Accucheck was 162-234. We can continue the tube feedings. Will do Accu-Cheks every 6 hours. Subjective Date/time seen: 03/01/21 15:09 Background: This is a 76-year-old female patient who resides at [facility]. The patient is noncommunicative, but awake and alert today. S:Patient is examined at the bedside. She is noncommunicative; she looks comfortable to me. She did not appear to be in distress. Review of Systems Review of Systems: All systems reviewed & are unremarkable except as noted in HPI and below ROS unobtainable: Yes unobtainable due to mental status Constitutional: Constitutional: Reports as per HPI and Reports no additional constitutional complaints Eyes: Eyes: Reports as per HPI and Reports no additional eye complaints ENT: Reports system reviewed and no additional complaints, except as documented, Reports as per HPI and Reports Normal hearing present Cardiovascular: Cardiovascular: Reports as per HPI and Reports no additional cardiovascular complaints Respiratory: Respiratory: Reports as per HPI, Reports no additional respiratory complaints and Reports no additional respiratory complaints Gastrointestinal: Gastrointestinal: Reports as per HPI and Reports no additional gastrointestinal complaints Musculoskeletal: Musculoskeletal: Reports no additional musculoskeletal complaints and Reports as per HPI Integumentary/Breasts: Skin/Breast: Reports system reviewed and no additional complaints, except as docu and Reports as per HPI Neurologic: Reports system reviewed and no additional complaints, except as documented, Reports as per HPI and Reports Normal hearing present Psychiatric: Psychiatric: Reports no additional psychiatric complaints and Reports as per HPI Endocrine: Endocrine: Reports no additional endocrine complaints Hematologic/Lymphatic: Hematologic/Lymphatic: Reports no additional hematologic/lymphatic complaints Allergic/Immunologic: Allergic/Immunologic: Reports no additional allergic/immunologic complaints Exam Const: General: cooperative, comfortable and no acute distress Nutritional Appearance: overweight Orientation/consciousness: oriented to person Limitations: altered mental status HENMT: Head: normal to inspection and No palpable skull fracture present General nose exam: Normal external nose present Eyes: General: appearance normal, both eyes and all related structures Neck: Neck: full ROM Chest: Chest palpation & inspection: normal ins
[2021-03-01] MEDS: ERTAPENEM 1 GM/NS 50 ML 1 GM/50 ML BAG IVPB (16:42)
[2021-03-01] MEDS: SACCHAROMYCES BOULARDII 250 MG CAPSULE FEED TUBE (18:45)
[2021-03-01 19:27] LABS: Anion Gap 11 mmol/L (8-16); Blood Urea Nitrogen 29 mg/dL (7-17); Carbon Dioxide 26 mmol/L (22-30); Chloride 104 mmol/L (98-107); Estimated CRCL calculation 49 ml/min; Estimated Glomerular Filt Rate > 60; Glucose 290 mg/dL (65-110); Potassium 3.5 mmol/L (3.4-5.0); Sodium 141 mmol/L (137-145)
[2021-03-01 19:41] LABS: Glucose Point of Care 231 mg/dl (65-105)
[2021-03-01] MEDS: KCL 20MEQ/0.9% SOD CHL 1,000 ML 60 ML IV CONT (21:50)
[2021-03-01] MEDS: BACLOFEN 5 MG TABLET FEED TUBE (21:53)
[2021-03-01] MEDS: INSULIN GLARGINE (*BKC) 100 UNITS/ML 10 UNITS SUB-Q (21:53)
[2021-03-01 23:14] LABS: Glucose Point of Care 186 mg/dl (65-105)
[2021-03-01 23:29] LABS: Glucose Point of Care 179 mg/dl (65-105)
[2021-03-02] VITALS (9 sets, daily range): BP systolic 94–143; BP diastolic 45–65; PULSE 80–109; RESP 16–18; TEMP 35.9–37.8; O2SAT 93–99
[2021-03-02] MEDS: INSULIN ASPART (*BKC) 100 UNITS/ML SUB-Q ×2 (00:18→19:27)
[2021-03-02] MEDS: ONDANSETRON INJ 4 MG/2 ML VIAL IV PUSH (01:46)
[2021-03-02] MEDS: LANSOPRAZOLE ORAL SUSP 30 MG/10 ML ORAL.SUSP FEED TUBE ×2 (05:36→17:09)
[2021-03-02 06:53] LABS: Glucose Point of Care 154 mg/dl (65-105)
[2021-03-02 07:56] LABS: Hematocrit 35.3 % (37.0-47.0); Hemoglobin 10.5 g/dL (12.0-15.0); Mean Corpuscular HGB Conc 29.7 g/dl (32-36); Mean Corpuscular Hemoglobin 25.9 pg (26-34); Mean Corpuscular Volume 86.9 fl (80-100); Mean Platelet Volume 9.6 fl (7.4-10.4); Platelet Count Result 326 k/mm3 (150-375); Red Blood Count 4.06 M/mm3 (4.2-5.4); White Blood Count 11.7 K/mm3 (4.5-10.0)
[2021-03-02 08:04] LABS: INR 1.1; Prothrombin Time 13.8 Seconds (11.1-14.7)
[2021-03-02 08:10] LABS: Alanine Aminotransferase 38 U/L (4-35); Anion Gap 9 mmol/L (8-16); Blood Urea Nitrogen 23 mg/dL (7-17); Calcium 8.7 mg/dL (8.4-10.2); Carbon Dioxide 29 mmol/L (22-30); Chloride 103 mmol/L (98-107); Estimated CRCL calculation 57 ml/min; Estimated Glomerular Filt Rate > 60; Glucose 157 mg/dL (65-110); Potassium 3.4 mmol/L (3.4-5.0); Sodium 141 mmol/L (137-145)
[2021-03-02] MEDS: SACCHAROMYCES BOULARDII 250 MG CAPSULE FEED TUBE ×2 (10:15→17:10)
[2021-03-02] MEDS: ASCORBIC ACID 500 MG TABLET FEED TUBE (10:15)
[2021-03-02] MEDS: LORATADINE 10 MG TABLET FEED TUBE (10:15)
--- NOTE | 2021-03-02 11:55 | PCDIET ---
Dietitian consulted for tube feeding hold. Pt current tube feeding of Glucerna 1.2 running at 30mL/hr has been placed on hold by MD due to episodes of vomiting yesterday (03/01/21). Spoke with nursing who confirms this and reports that they were unable to get residuals and they had noticed that the pt appeared to be gaging with substance coming up and down feeding tube at the same times as breaths taken. Nursing reports that substance eventually stayed down. Spoke to MD via phone about nursing reports. RDN recommended adding reglan to aid in tolerance of tube feeding. MD agreed and placed orders for reglan and consult to GI. Recommend to continue holding tube feeding until seen by GI. Recommendations to reinitiate tube feeding of Glucerna 1.2 running at 20mL/hr providing 576kcal, 29gm protein, and 386.4mL water after being cleared by GI. Recommendations to increase tube feeding rate by 10mL/hr every 8 hours, as tolerated, until reaching goal rate of 60mL/hr after reinitiation of tube feeding. Will continue to follow closely.
[2021-03-02] MEDS: LACTATED RINGERS 1,000 ML 60 ML IV CONT (12:15)
[2021-03-02] MEDS: METOCLOPRAMIDE HCL 10 MG/10 ML SOLN UDC PO (12:15)
[2021-03-02 12:35] LABS: Glucose Point of Care 166 mg/dl (65-105)
--- NOTE | 2021-03-02 15:11 | WPDGICN ---
Assessment and Plan Assessment and plan (1) Nausea and vomiting in adult: Code(s): R11.2 - Nausea with vomiting, unspecified Status: Acute Assessment and Plan: continue to monitor she has been admitted few months ago with similar issue and evaluated back then by Dr Dias Recent contrast injection thru PEG few days ago showed that is in good position and no obstruction continue conservative measures of raising the head of the bed, Reglan, pump feeds (2) Dysphagia: Code(s): R13.10 - Dysphagia, unspecified Status: Acute Assessment and Plan: s/p G-tube (3) UTI (urinary tract infection): Code(s): N39.0 - Urinary tract infection, site not specified Status: Acute Assessment and Plan: on rx (4) Encephalopathy acute: Code(s): G93.40 - Encephalopathy, unspecified Status: Acute (5) DM2 (diabetes mellitus, type 2): Qualifiers: Diabetes mellitus mcc insulin use: with termite treater use Diabetes mellitus complication status: with hyperglycemia Qualified Code(s): E11.65 - Type 2 diabetes mellitus with hyperglycemia; Z79.4 - jail (current) use of insulin Code(s): E11.9 - Type 2 diabetes mellitus without complications Status: Chronic (6) Brain tumor: Code(s): D49.6 - Neoplasm of unspecified behavior of brain Status: Chronic (7) PEG (percutaneous endoscopic gastrostomy) status: Code(s): Z93.1 - Gastrostomy status Status: Chronic GI Consult Note Consult date/time: 03/02/21 15:11 Reason for consult: n/v, she has G-tube HPI: Linette Vásquez is a 76 year old female who is a shelter resident with prior history of brain tumors requiring surgical resection and CVA, COPD, diabetes mellitus who had PEG [place] [address] Kaplan after she came with severe COVID-19 infection and respiratory failure. This time she was sent to ER after staff noted more cough and congestion, also report of nausea with vomiting. Also noted that she was in ER 5 days ago for G-tube malfunctioning which was replaced for a new one, gastrografin showed that was in right position in the stomach. She was admitted 3 days ago, ER labs showed wbc 17, creat 1.3 but now down to normal, chest x-ray reviewed and no acute cardiopulmonary abnormality. 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 She is non-verbal now and feeding has been on hold. 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 UTI (urinary tract infection) Surgical History Surgical History Gastrointestinal tube in situ (~02/2020) History of brain surgery resection of brain tumor History of brain surgery resection of brain tumor History of brain surgery resection of brain tumor History of brain surgery resection of brain tumor History of craniotomy Right frontal lobe craniotomy with resection of oligodendroglioma. Family History Family History (Reviewed 02/27/21 @ 19:17 by Monik Greco
[2021-03-02 18:17] LABS: Glucose Point of Care 235 mg/dl (65-105)
--- NOTE | 2021-03-02 19:14 | PM.IMPN ---
Progress Note: A&P Assessment and Plan (1) UTI (urinary tract infection): Code(s): N39.0 - Urinary tract infection, site not specified Status: Acute Assessment and Plan: Continue vancomycin. Urine culture is growing Enterococcus. Blood cultures are negative at the time of this dictation. (2) Suspected COVID-19 virus infection: Code(s): Z20.822 - Contact with and (suspected) exposure to COVID-19 Status: Acute Assessment and Plan: COVID was ruled out and precaution was stopped. (3) Acute renal failure: Qualifiers: Acute renal failure type: unspecified Qualified Code(s): N17.9 - Acute kidney failure, unspecified Code(s): N17.9 - Acute kidney failure, unspecified Status: Acute Assessment and Plan: The resolved nonoliguric acute kidney injury. Continue with gentle IV fluids. Creatinine improving at 0.6 today. (4) DM2 (diabetes mellitus, type 2): Qualifiers: Diabetes mellitus assistant terminal manager insulin use: with assistant terminal manager use Diabetes mellitus complication status: with hyperglycemia Qualified Code(s): E11.65 - Type 2 diabetes mellitus with hyperglycemia; Z79.4 - assistant terminal manager (current) use of insulin Code(s): E11.9 - Type 2 diabetes mellitus without complications Status: Chronic Assessment and Plan: The patient has tube feedings. Fasting blood glucose 157. Accucheck was 166-235. We can continue the tube feedings. Will do Accu-Cheks every 6 hours. Subjective Date/time seen: 03/02/21 11:14 S: Patient examined at the bedside. Patient is noncommunicative and sleepy. She looks comfortable. There is no evidence of distress. Patient experienced some episode of vomiting and was started appropriately on liquid Zofran. GI was consulted. Review of Systems Review of Systems: All systems reviewed & are unremarkable except as noted in HPI and below ROS unobtainable: Yes unobtainable due to mental status Constitutional: Constitutional: Reports as per HPI and Reports no additional constitutional complaints Eyes: Eyes: Reports as per HPI and Reports no additional eye complaints ENT: Reports system reviewed and no additional complaints, except as documented, Reports as per HPI and Reports Normal hearing present Cardiovascular: Cardiovascular: Reports as per HPI and Reports no additional cardiovascular complaints Respiratory: Respiratory: Reports as per HPI, Reports no additional respiratory complaints and Reports no additional respiratory complaints Gastrointestinal: Gastrointestinal: Reports as per HPI and Reports no additional gastrointestinal complaints Musculoskeletal: Musculoskeletal: Reports no additional musculoskeletal complaints and Reports as per HPI Integumentary/Breasts: Skin/Breast: Reports system reviewed and no additional complaints, except as docu and Reports as per HPI Neurologic: Reports system reviewed and no additional complaints, except as documented, Reports as per HPI and Reports Normal hearing present Psychiatric: Psychiatric: Reports no additional psychiatric complaints and Reports as per HPI Endocrine: Endocrine: Reports no additional endocrine complaints Hematologic/Lymphatic: Hematologic/Lymphatic: Reports no additional hematologic/lymphatic complaints Allergic/Immunologic: Allergic/Immunologic: Reports no additional allergic/immunologic complaints Exam Const: General: cooperative, comfortable and no acute distress Nutritional Appearance: overweight Orientation/consciousness: oriented to person Limitations: altered mental status HENMT: Head: normal to inspection and No palpable skull fracture present General nose exam: Normal external nose present Eyes: General: appearance normal, both eyes and all related structures Neck: Neck: full ROM Chest: Chest palpation & inspection: normal inspection of the chest Resp: Effort & Inspection: normal respiratory effort Auscultation: breath sounds absent GI: Inspection:
[2021-03-02] MEDS: BACLOFEN 5 MG TABLET FEED TUBE (22:55)
[2021-03-02] MEDS: INSULIN GLARGINE (*BKC) 100 UNITS/ML 10 UNITS SUB-Q (22:55)
[2021-03-03] VITALS (9 sets, daily range): BP systolic 105–153; BP diastolic 53–74; PULSE 69–108; RESP 16–20; TEMP 36.4–36.9; O2SAT 91–97
[2021-03-03 00:25] LABS: Glucose Point of Care 134 mg/dl (65-105)
[2021-03-03 06:26] LABS: Glucose Point of Care 132 mg/dl (65-105)
[2021-03-03] MEDS: LANSOPRAZOLE ORAL SUSP 30 MG/10 ML ORAL.SUSP FEED TUBE ×2 (06:32→17:36)
[2021-03-03] MEDS: LACTATED RINGERS 1,000 ML 60 ML IV CONT (06:32)
[2021-03-03 07:35] LABS: Hematocrit 33.5 % (37.0-47.0); Hemoglobin 10.1 g/dL (12.0-15.0); Mean Corpuscular HGB Conc 30.1 g/dl (32-36); Mean Corpuscular Hemoglobin 25.2 pg (26-34); Mean Corpuscular Volume 83.5 fl (80-100); Mean Platelet Volume 9.8 fl (7.4-10.4); Platelet Count Result 343 k/mm3 (150-375); Red Blood Count 4.01 M/mm3 (4.2-5.4); Red Cell Distribution Width 15.7 % (11.5-14.5); White Blood Count 13.4 K/mm3 (4.5-10.0)
[2021-03-03 07:49] LABS: Prothrombin Time 13.4 Seconds (11.1-14.7)
[2021-03-03 07:51] LABS: Anion Gap 10 mmol/L (8-16); Blood Urea Nitrogen 21 mg/dL (7-17); Calcium 8.9 mg/dL (8.4-10.2); Carbon Dioxide 25 mmol/L (22-30); Chloride 102 mmol/L (98-107); Estimated CRCL calculation 57 ml/min; Estimated Glomerular Filt Rate > 60; Glucose 148 mg/dL (65-110); Potassium 3.5 mmol/L (3.4-5.0); Sodium 137 mmol/L (137-145)
[2021-03-03] MEDS: SACCHAROMYCES BOULARDII 250 MG CAPSULE FEED TUBE ×2 (09:03→17:32)
[2021-03-03] MEDS: ASCORBIC ACID 500 MG TABLET FEED TUBE (09:03)
[2021-03-03] MEDS: LORATADINE 10 MG TABLET FEED TUBE (09:04)
--- NOTE | 2021-03-03 10:49 | WPDGIPROGNO ---
Progress Note: A&P Assessment and Plan (1) Nausea and vomiting in adult: Code(s): R11.2 - Nausea with vomiting, unspecified Status: Acute Assessment and Plan: no report of emesis per RN continue with reglan zofran as needed gradually sebd teacher has been increasing her feeding and no issues (2) Dysphagia: Code(s): R13.10 - Dysphagia, unspecified Status: Acute (3) UTI (urinary tract infection): Code(s): N39.0 - Urinary tract infection, site not specified Status: Acute Assessment and Plan: on abx (4) DM2 (diabetes mellitus, type 2): Qualifiers: Diabetes mellitus termite control representative insulin use: with long-term use Diabetes mellitus complication status: with hyperglycemia Qualified Code(s): E11.65 - Type 2 diabetes mellitus with hyperglycemia; Z79.4 - manager intermediate (current) use of insulin Code(s): E11.9 - Type 2 diabetes mellitus without complications Status: Chronic (5) G tube feedings: Code(s): Z93.1 - Gastrostomy status Status: Acute Assessment and Plan: recently exchanged for a new one, currently is working and she is tolerating (6) Dementia: Code(s): F03.90 - Unspecified dementia without behavioral disturbance Status: Acute Subjective Date/time seen: 03/03/21 10:49 Interval history: she is resting comfortably, RN reports that she has been tolerating tube feeding Review of Systems Review of Systems: All systems reviewed & are unremarkable except as noted in HPI and below Exam Const: General: ill appearing chronically Other: sleeping comfortable HENMT: General nose exam: Normal nares present Eyes: Sclera: sclerae normal Neck: Neck: supple Resp: Auscultation: clear to auscultation bilaterally Cardio: Rate: regular rate GI: Inspection: non-distended GI Palp: Yes Soft to palpation, No Tenderness to palpation present (GI) and No Guarding due to palpation present (GI) Auscultation: normal bowel sounds Other: G-tube in place, site looks ok Skin: General skin exam: no rashes or lesions noted Neuro: Other: she is non-verbal now Extrem: General: normal to inspection Psych: Other: unable to assess Objective Data Vital Signs Vital Signs: Vital Signs - 24 hr 03/02/21 12:00 03/02/21 15:23 03/02/21 16:00 Temperature 100.0 F H Pulse Rate 81 80 109 H Respiratory Rate 16 Blood Pressure 94/45 L Pulse Oximetry 93 03/02/21 20:00 03/02/21 22:00 03/03/21 00:00 Temperature 97.8 F Pulse Rate 96 96 76 Respiratory Rate 18 Blood Pressure 138/64 Pulse Oximetry 94 93 03/03/21 04:00 03/03/21 06:00 Temperature 97.6 F Pulse Rate 69 93 Respiratory Rate 18 Blood Pressure 129/61 Pulse Oximetry 93 Intake/Output Intake/Output: Intake & Output 02/28/21 03/01/21 03/02/21 03/03/21 23:59 23:59 23:59 23:59 Intake Total 3050 3050 250 1000 Output Total 1 Balance 3050 3050 249 1000 Meds/Results Medications: Active Medications Generic Name Dose Route Start Last Admin Trade Name Freq PRN Reason Stop Dose Admin Acetaminophen 650 mg 03/01/21 17:08 Acetaminophen Elixir 325 Mg/10.15 Ml Udc FEED TUBE Q8H PRN Pain Albuterol 2.5 mg 03/01/21 16:51 Albuterol Sulfate Neb 2.5 Mg/0.5 Ml Inh INHALATION Q6HRT PRN Shortness Of Breath Ascorbic Acid 500 mg 03/02/21 09:00 03/03/21 09:03 Ascorbic Acid 500 Mg Tablet FEED TUBE 500 mg DAILY BRYCE Administration Baclofen 5 mg 03/01/21 21:00 03/02/21 22:55 Baclofen 5 Mg Tablet FEED TUBE 5 mg HS BRYCE Administration Bisacodyl 10 mg 03/01/21 16:51 Bisacodyl 10 Mg Suppository RECTAL DAILY PRN Constipation Chlorhexidine Gluconate 15 ml 03/01/21 17:00 03/02/21 17:09 Chlorhexidine Gluconate 0.12% Oral Rinse 473 Ml Btl (*Bkc) SWISH/SPIT Not Given BID BRYCE Dexamethasone Sodium Phosphate 6 mg 02/28/21 09:00 03/03/21 09:03 Dexamethasone Sod Phos Inj 10 Mg/Ml 1 Ml Vial IV P
[2021-03-03 12:18] LABS: Glucose Point of Care 177 mg/dl (65-105)
[2021-03-03 17:00] LABS: Glucose Point of Care 234 mg/dl (65-105)
[2021-03-03] MEDS: guaiFENesin 200 MG/10 ML UDC FEED TUBE (17:31)
[2021-03-03] MEDS: INSULIN ASPART (*BKC) 100 UNITS/ML SUB-Q (17:32)
--- NOTE | 2021-03-03 18:08 | PM.IMPN ---
Progress Note: A&P Assessment and Plan (1) UTI (urinary tract infection): Code(s): N39.0 - Urinary tract infection, site not specified Status: Acute Assessment and Plan: Continue vancomycin. Urine culture is growing Enterococcus. Blood cultures are negative at the time of this dictation. Mild fever at 100 F today. Continue to monitor. (2) Acute renal failure: Qualifiers: Acute renal failure type: unspecified Qualified Code(s): N17.9 - Acute kidney failure, unspecified Code(s): N17.9 - Acute kidney failure, unspecified Status: Acute Assessment and Plan: The resolved nonoliguric acute kidney injury. Continue with gentle IV fluids. Creatinine improving at 0.6 today. (3) DM2 (diabetes mellitus, type 2): Qualifiers: Diabetes mellitus ad terminal makeup operator insulin use: with prison use Diabetes mellitus complication status: with hyperglycemia Qualified Code(s): E11.65 - Type 2 diabetes mellitus with hyperglycemia; Z79.4 - alf (current) use of insulin Code(s): E11.9 - Type 2 diabetes mellitus without complications Status: Chronic Assessment and Plan: The patient has tube feedings. Fasting blood glucose 147. Accucheck was 177-234. We can continue the tube feedings. Will do Accu-Cheks every 6 hours. Subjective Date/time seen: 03/03/21 14:08 S: Patient examined at the bedside. She is resting comfortably. No additional episodes of vomiting. She has been tolerating the tube feeding which was advanced to 50 cc/hour. Mild fever earlier today at 100 F. No evidence of distress. Review of Systems Review of Systems: All systems reviewed & are unremarkable except as noted in HPI and below ROS unobtainable: Yes unobtainable due to medical condition and unobtainable due to mental status Constitutional: Constitutional: Reports as per HPI and Reports no additional constitutional complaints Eyes: Eyes: Reports as per HPI and Reports no additional eye complaints ENT: Reports system reviewed and no additional complaints, except as documented, Reports as per HPI and Reports Normal hearing present Cardiovascular: Cardiovascular: Reports as per HPI and Reports no additional cardiovascular complaints Respiratory: Respiratory: Reports as per HPI, Reports no additional respiratory complaints and Reports no additional respiratory complaints Gastrointestinal: Gastrointestinal: Reports as per HPI and Reports no additional gastrointestinal complaints Musculoskeletal: Musculoskeletal: Reports no additional musculoskeletal complaints and Reports as per HPI Integumentary/Breasts: Skin/Breast: Reports system reviewed and no additional complaints, except as docu and Reports as per HPI Neurologic: Reports system reviewed and no additional complaints, except as documented, Reports as per HPI and Reports Normal hearing present Psychiatric: Psychiatric: Reports no additional psychiatric complaints and Reports as per HPI Endocrine: Endocrine: Reports no additional endocrine complaints Hematologic/Lymphatic: Hematologic/Lymphatic: Reports no additional hematologic/lymphatic complaints Allergic/Immunologic: Allergic/Immunologic: Reports no additional allergic/immunologic complaints Exam Const: General: cooperative, comfortable and no acute distress Nutritional Appearance: overweight Orientation/consciousness: oriented to person Limitations: altered mental status HENMT: Head: normal to inspection and No palpable skull fracture present General nose exam: Normal external nose present Eyes: General: appearance normal, both eyes and all related structures Neck: Neck: full ROM Chest: Chest palpation & inspection: normal inspection of the chest Resp: Effort & Inspection: normal respiratory effort Auscultation: breath sounds absent GI: Inspection: normal to inspection (G-tube intact.) Skin: General skin exam: normal color Neuro: General: oriented to person Cranial nerves:
[2021-03-03] MEDS: INSULIN GLARGINE (*BKC) 100 UNITS/ML 10 UNITS SUB-Q (22:04)
[2021-03-03] MEDS: BACLOFEN 5 MG TABLET FEED TUBE (22:04)
[2021-03-04] VITALS: PULSE 78
[2021-03-04] MEDS: LACTATED RINGERS 1,000 ML 60 ML IV CONT ×2 (00:11→16:56)
[2021-03-04 00:19] LABS: Glucose Point of Care 182 mg/dl (65-105)
[2021-03-04 04:00] VITALS: PULSE 72
[2021-03-04] MEDS: LANSOPRAZOLE ORAL SUSP 30 MG/10 ML ORAL.SUSP FEED TUBE ×2 (05:57→16:59)
[2021-03-04 06:00] VITALS: BP 108/57; PULSE 76; RESP 18; TEMP 36.2; O2SAT 96
[2021-03-04 06:08] LABS: Glucose Point of Care 189 mg/dl (65-105)
[2021-03-04 07:29] LABS: Hematocrit 34.1 % (37.0-47.0); Hemoglobin 10.3 g/dL (12.0-15.0); Mean Corpuscular HGB Conc 30.2 g/dl (32-36); Mean Corpuscular Hemoglobin 25.6 pg (26-34); Mean Corpuscular Volume 84.6 fl (80-100); Platelet Count Result 335 k/mm3 (150-375); Red Blood Count 4.03 M/mm3 (4.2-5.4); Red Cell Distribution Width 15.6 % (11.5-14.5); White Blood Count 13.6 K/mm3 (4.5-10.0)
[2021-03-04 07:52] LABS: Anion Gap 8 mmol/L (8-16); Blood Urea Nitrogen 24 mg/dL (7-17); Calcium 8.8 mg/dL (8.4-10.2); Carbon Dioxide 25 mmol/L (22-30); Chloride 99 mmol/L (98-107); Estimated CRCL calculation 67 ml/min; Estimated Glomerular Filt Rate > 60; Glucose 197 mg/dL (65-110); Potassium 3.5 mmol/L (3.4-5.0); Sodium 132 mmol/L (137-145)
[2021-03-04] MEDS: ASCORBIC ACID 500 MG TABLET FEED TUBE (09:44)
[2021-03-04] MEDS: SACCHAROMYCES BOULARDII 250 MG CAPSULE FEED TUBE ×2 (09:44→16:57)
[2021-03-04] MEDS: LORATADINE 10 MG TABLET FEED TUBE (09:44)
[2021-03-04 09:50] VITALS: O2SAT 96
--- NOTE | 2021-03-04 10:43 | WPDGIPROGNO ---
Progress Note: A&P Assessment and Plan (1) Nausea and vomiting in adult: Code(s): R11.2 - Nausea with vomiting, unspecified Status: Acute Assessment and Plan: no report of emesis per RN tolerating tube feeding at goal by G-tube continue with reglan, zofran as needed will sign off, call if questions (2) Dysphagia: Code(s): R13.10 - Dysphagia, unspecified Status: Acute Assessment and Plan: from mental status, she already has G-tube in place (3) UTI (urinary tract infection): Code(s): N39.0 - Urinary tract infection, site not specified Status: Acute Assessment and Plan: on abx (4) DM2 (diabetes mellitus, type 2): Qualifiers: Diabetes mellitus usp insulin use: with usp use Diabetes mellitus complication status: with hyperglycemia Qualified Code(s): E11.65 - Type 2 diabetes mellitus with hyperglycemia; Z79.4 - [facility] (current) use of insulin Code(s): E11.9 - Type 2 diabetes mellitus without complications Status: Chronic (5) G tube feedings: Code(s): Z93.1 - Gastrostomy status Status: Acute Assessment and Plan: recently exchanged for a new one, currently is working and she is tolerating (6) Dementia: Code(s): F03.90 - Unspecified dementia without behavioral disturbance Status: Acute Subjective Date/time seen: 03/04/21 10:43 Interval history: tolerating TF at goal- 60ml/h, no report of emesis and she seems comfortable in bed. Today her eyes open and she is trying to talk Review of Systems Review of Systems: All systems reviewed & are unremarkable except as noted in HPI and below Exam Const: General: comfortable and ill appearing chronically HENMT: General nose exam: Normal nares present Eyes: Sclera: sclerae normal Neck: Neck: supple Resp: Auscultation: clear to auscultation bilaterally Cardio: Rate: regular rate GI: Inspection: non-distended GI Palp: Yes Soft to palpation, No Tenderness to palpation present (GI) and No Guarding due to palpation present (GI) Auscultation: normal bowel sounds Other: G-tube in place, site looks ok Skin: General skin exam: no rashes or lesions noted Neuro: Other: eyes open and she is trying to talk Extrem: General: normal to inspection Psych: Other: confused Objective Data Vital Signs Vital Signs: Vital Signs - 24 hr 03/03/21 12:00 03/03/21 14:00 03/03/21 16:00 Temperature 98.5 F Pulse Rate 84 101 H 83 Respiratory Rate 20 Blood Pressure 153/74 H Pulse Oximetry 97 03/03/21 20:00 03/03/21 22:00 03/04/21 00:00 Temperature 97.6 F Pulse Rate 108 H 80 78 Respiratory Rate 16 Blood Pressure 105/53 L Pulse Oximetry 92 95 03/04/21 04:00 03/04/21 06:00 03/04/21 09:50 Temperature 97.2 F L Pulse Rate 72 76 Respiratory Rate 18 Blood Pressure 108/57 L Pulse Oximetry 96 96 Intake/Output Intake/Output: Intake & Output 03/01/21 03/02/21 03/03/21 03/04/21 23:59 23:59 23:59 23:59 Intake Total 3050 250 2250 Output Total 1 Balance 3050 249 2250 Meds/Results Medications: Active Medications Generic Name Dose Route Start Last Admin Trade Name Freq PRN Reason Stop Dose Admin Acetaminophen 650 mg 03/03/21 18:08 Acetaminophen 650 Mg Suppository RECTAL Q6H PRN Mild Pain (1-3) or Fever Albuterol 2.5 mg 03/01/21 16:51 Albuterol Sulfate Neb 2.5 Mg/0.5 Ml Inh INHALATION Q6HRT PRN Shortness Of Breath Ascorbic Acid 500 mg 03/02/21 09:00 03/04/21 09:44 Ascorbic Acid 500 Mg Tablet FEED TUBE 500 mg DAILY BRYCE Administration Baclofen 5 mg 03/01/21 21:00 03/03/21 22:04 Baclofen 5 Mg Tablet FEED TUBE 5 mg HS BRYCE Administration Bisacodyl 10 mg 03/01/21 16:51 Bisacodyl 10 Mg Suppository RECTAL DAILY PRN Constipation Chlorhexidine Gluconate 15 ml 03/01/21 17:00 03/04/21 09:42 Chlorhexidine Gluconate 0.12% Oral Rinse 473 Ml Btl (*
[2021-03-04 11:35] LABS: Glucose Point of Care 196 mg/dl (65-105)
--- NOTE | 2021-03-04 12:33 | PM.IMPN ---
Progress Note: A&P Assessment and Plan (1) UTI (urinary tract infection): Code(s): N39.0 - Urinary tract infection, site not specified Status: Acute Assessment and Plan: Continue vancomycin. Urine culture is growing Enterococcus. Blood cultures are negative at the time of this dictation. No recurrent fever overnight. Continue to monitor. (2) Acute renal failure: Qualifiers: Acute renal failure type: unspecified Qualified Code(s): N17.9 - Acute kidney failure, unspecified Code(s): N17.9 - Acute kidney failure, unspecified Status: Acute Assessment and Plan: Resolved nonoliguric acute kidney injury. Continue with gentle IV fluids. Creatinine is slowly improving at 0.5 today. (3) DM2 (diabetes mellitus, type 2): Qualifiers: Diabetes mellitus fpc insulin use: with fpc use Diabetes mellitus complication status: with hyperglycemia Qualified Code(s): E11.65 - Type 2 diabetes mellitus with hyperglycemia; Z79.4 - intermediate card tender (current) use of insulin Code(s): E11.9 - Type 2 diabetes mellitus without complications Status: Chronic Assessment and Plan: The patient has tube feedings. Fasting blood glucose 197. Accucheck was 182-196. We can continue the tube feedings. Will do Accu-Cheks every 6 hours. Subjective Date/time seen: 03/04/21 11:52 S: Patient was examined at the bedside. She has been tolerating TF at goal- 60ml/h; no additional report of emesis overnight. Patient seems comfortable in bed. Review of Systems Review of Systems: All systems reviewed & are unremarkable except as noted in HPI and below ROS unobtainable: Yes unobtainable due to medical condition and unobtainable due to mental status Constitutional: Constitutional: Reports as per HPI and Reports no additional constitutional complaints Eyes: Eyes: Reports as per HPI and Reports no additional eye complaints ENT: Reports system reviewed and no additional complaints, except as documented, Reports as per HPI and Reports Normal hearing present Cardiovascular: Cardiovascular: Reports as per HPI and Reports no additional cardiovascular complaints Respiratory: Respiratory: Reports as per HPI, Reports no additional respiratory complaints and Reports no additional respiratory complaints Gastrointestinal: Gastrointestinal: Reports as per HPI and Reports no additional gastrointestinal complaints Musculoskeletal: Musculoskeletal: Reports no additional musculoskeletal complaints and Reports as per HPI Integumentary/Breasts: Skin/Breast: Reports system reviewed and no additional complaints, except as docu and Reports as per HPI Neurologic: Reports system reviewed and no additional complaints, except as documented, Reports as per HPI and Reports Normal hearing present Psychiatric: Psychiatric: Reports no additional psychiatric complaints and Reports as per HPI Endocrine: Endocrine: Reports no additional endocrine complaints Hematologic/Lymphatic: Hematologic/Lymphatic: Reports no additional hematologic/lymphatic complaints Allergic/Immunologic: Allergic/Immunologic: Reports no additional allergic/immunologic complaints Exam Const: General: cooperative, comfortable and no acute distress Nutritional Appearance: overweight Orientation/consciousness: oriented to person Limitations: altered mental status HENMT: Head: normal to inspection and No palpable skull fracture present General nose exam: Normal external nose present Mouth: Yes dry mucous membranes Eyes: General: appearance normal, both eyes and all related structures Neck: Neck: full ROM Chest: Chest palpation & inspection: normal inspection of the chest Resp: Effort & Inspection: normal respiratory effort Auscultation: breath sounds absent GI: Inspection: normal to inspection (G-tube intact.) Skin: General skin exam: normal color Neuro: General: oriented to person Cranial nerves: Yes Normal hearing present Extrem:
[2021-03-04] MEDS: INSULIN ASPART (*BKC) 100 UNITS/ML SUB-Q ×2 (12:57→18:29)
[2021-03-04 14:00] VITALS: BP 91/47; PULSE 84; RESP 20; TEMP 36.2; O2SAT 95
[2021-03-04 18:17] LABS: Glucose Point of Care 206 mg/dl (65-105)
[2021-03-04 20:00] VITALS: BP 108/46; PULSE 86; RESP 18; TEMP 37.1; O2SAT 94; O2SAT 96
[2021-03-04] MEDS: INSULIN GLARGINE (*BKC) 100 UNITS/ML 10 UNITS SUB-Q (21:59)
[2021-03-04] MEDS: BACLOFEN 5 MG TABLET FEED TUBE (22:00)
[2021-03-05] VITALS: BP 117/96; PULSE 62; RESP 14; TEMP 36.6; O2SAT 93
[2021-03-05] MEDS: INSULIN ASPART (*BKC) 100 UNITS/ML SUB-Q ×4 (00:33→17:40)
[2021-03-05 00:35] LABS: Glucose Point of Care 178 mg/dl (65-105)
[2021-03-05 04:00] VITALS: BP 129/50; PULSE 79; RESP 18; TEMP 37.1; O2SAT 99
[2021-03-05] MEDS: guaiFENesin 200 MG/10 ML UDC FEED TUBE (06:06)
[2021-03-05] MEDS: LANSOPRAZOLE ORAL SUSP 30 MG/10 ML ORAL.SUSP FEED TUBE ×2 (06:06→17:40)
[2021-03-05 06:10] LABS: Glucose Point of Care 165 mg/dl (65-105)
[2021-03-05 06:52] LABS: Hematocrit 34.7 % (37.0-47.0); Hemoglobin 10.7 g/dL (12.0-15.0); Mean Corpuscular HGB Conc 30.8 g/dl (32-36); Mean Corpuscular Hemoglobin 25.7 pg (26-34); Mean Corpuscular Volume 83.4 fl (80-100); Mean Platelet Volume 9.5 fl (7.4-10.4); Platelet Count Result 343 k/mm3 (150-375); Red Blood Count 4.16 M/mm3 (4.2-5.4); Red Cell Distribution Width 15.9 % (11.5-14.5)
[2021-03-05 07:01] LABS: Anion Gap 10 mmol/L (8-16); Blood Urea Nitrogen 24 mg/dL (7-17); Calcium 8.7 mg/dL (8.4-10.2); Carbon Dioxide 26 mmol/L (22-30); Chloride 101 mmol/L (98-107); Estimated CRCL calculation 57 ml/min; Estimated Glomerular Filt Rate > 60; Glucose 182 mg/dL (65-110); Potassium 3.9 mmol/L (3.4-5.0); Sodium 137 mmol/L (137-145)
[2021-03-05 09:40] VITALS: O2SAT 97
[2021-03-05] MEDS: ERGOCALCIFEROL 50,000 UNIT CAPSULE 50000 UNITS FEED TUBE (09:43)
[2021-03-05] MEDS: LORATADINE 10 MG TABLET FEED TUBE (09:43)
[2021-03-05] MEDS: ASCORBIC ACID 500 MG TABLET FEED TUBE (09:43)
[2021-03-05] MEDS: SACCHAROMYCES BOULARDII 250 MG CAPSULE FEED TUBE ×2 (09:43→17:40)
[2021-03-05] MEDS: LACTATED RINGERS 1,000 ML 60 ML IV CONT (10:54)
[2021-03-05] MEDS: CHLORHEXIDINE GLUCONATE 0.12% ORAL RINSE 473 ML BTL (*BKC) 15 ML SWISH/SPIT ×2 (12:28→17:45)
[2021-03-05 12:32] LABS: Glucose Point of Care 224 mg/dl (65-105)
[2021-03-05 14:00] VITALS: BP 113/46; PULSE 75; RESP 24; TEMP 36.8; O2SAT 97
--- NOTE | 2021-03-05 15:57 | PM.DS ---
DS: Admitting Diagnosis Discharge Date 03/05/2021 Admitting Diagnosis (1) Seizure: (2) Brain tumor: (3) Leukocytosis: (4) Chronic anemia: (5) Insulin dependent type 2 diabetes mellitus: DS: Discharge Diagnosis Discharge Diagnosis (1) UTI (urinary tract infection): Code(s): N39.0 - Urinary tract infection, site not specified Status: Acute Assessment and Plan: Continue vancomycin. Urine culture is growing Enterococcus. Blood cultures are negative at the time of this dictation. No recurrent fever overnight. Continue to monitor. (2) Acute renal failure: Qualifiers: Acute renal failure type: unspecified Qualified Code(s): N17.9 - Acute kidney failure, unspecified Code(s): N17.9 - Acute kidney failure, unspecified Status: Acute Assessment and Plan: Resolved nonoliguric acute kidney injury. Continue with gentle IV fluids. Creatinine is slowly improving at 0.5 today. 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 Fasting blood glucose 197. Accucheck was 182-196. We can continue the tube feedings. Will do Accu-Cheks every 6 hours. DS: Summary Hospital Course Reason for hospitalization: Seizure Hospital Course: Please refer to admission H& P. Briefly,this is an unfortunate 76-year-old female with history of brain cancer, seizure, dementia, and insulin-dependent diabetes who presented to the emergency department earlier today via EMS from [facility] for evaluation after a seizure. She is reportedly nonverbal at baseline and cannot provide history and as such majority of the following is obtained via a review of her electronic medical records as well as from information obtained from family members. It is my understanding that staff midwife/apprenticeship director at the [facility] witnessed the patient having a seizure and they called 911. On EMS arrival the patient seemed to be staring off to the left and paramedics thought she was having a focal seizure at that time though it progressed to a full tonic clonic seizure. She was given Versed with improvement in her seizure activity. Thereafter she became hypopneic and she was receiving assisted ventilations through a bag-valve mask on arrival to the ER. 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 The emergency department physician spoke with Neurology and she was loaded with Keppra and she will be started on 500 mg b.i.d. Family members are requesting to speak with an oncologist for a 2nd opinion. At the time my evaluation she will open her eyes to name and did squeeze my fingers with her right hand though she follows no commands and she answers no questions. It should be noted that she was recently hospitalized for about 5 days with acute renal failure and urinary tract infection, discharged to the [facility] just 3 days ago. 76-year-old female with history of brain mass, dementia, admitted following episode of seizures. Unclear whether she has aspirated. Chest imaging studies showed possible left lower lobe infiltrate possible subsegmental atelectasis and tiny pleural effusion. The patient had elevated lactic acid borderline blood pressure yesterday. She has been on IV fluids as well as broad-spectrum antibiotics for possible sepsis. Blood pressure improvement the this management. Respiratory status essentially unchanged since yesterday. Urine analysis unremarkable source of infection unclear at this point. Continue with cu
[2021-03-05 17:13] LABS: EDCOVIDSCREEN Negative (Negative)
[2021-03-05 17:49] LABS: Glucose Point of Care 244 mg/dl (65-105)
[2021-03-05] MEDS: INSULIN GLARGINE (*BKC) 100 UNITS/ML 10 UNITS SUB-Q (20:24)
[2021-03-05 20:35] VITALS: O2SAT 97
[2021-03-05 20:36] LABS: Glucose Point of Care 226 mg/dl (65-105)
== END 2021-03-05 20:40 | DRG 690 ==
LOC: ANHED 12:26 → ANH3MEDSUR 15:56
PROVIDERS: Nurse Practitioner; Admitting Provider Internal Medicine; Emergency Provider Emergency Medicine; Visit Provider Internal Medicine
DX: N39.0 Urinary tract infection, site not specified (principal); N17.9 Acute kidney failure, unspecified; B95.2 Enterococcus as the cause of diseases classified elsewhere; Z20.822 Contact with and (suspected) exposure to COVID-19; E11.65 Type 2 diabetes mellitus with hyperglycemia; K21.9 Gastro-esophageal reflux disease without esophagitis; R56.9 Unspecified convulsions; R13.10 Dysphagia, unspecified; R11.2 Nausea with vomiting, unspecified; F03.90 Unspecified dementia, unspecified severity, without behavioral disturbance, psychotic disturbance, mood disturbance, and anxiety; D64.9 Anemia, unspecified; Z93.1 Gastrostomy status; Z79.4 Long term (current) use of insulin; Z79.899 Other long term (current) drug therapy; Z85.841 Personal history of malignant neoplasm of brain; Z87.891 Personal history of nicotine dependence
CPT/HCPCS: 36415; 36600; 49465; 70450; 71045; 71046; 80048; 80053; 80202; 82565; 82728; 82805; 82948; 83605; 83615; 83735; 84443; 84460; 85025; 85027; 85610; 87040; 87077; 87086; 87088; 87186; 87426; 99284; 99285; A4248; A9270; C9803; J1100; J1335; J1815; J2405; J3370; J3480; J7030; J7120; U0003; U0005

== ENCOUNTER 2021-03-07 12:04 | Inpatient (IN) | payer MEDICARE, MEDICAID, SELFPAY ==
[2021-03-07] VITALS (61 sets, daily range): BP systolic 80–170; BP diastolic 43–100; PULSE 74–98; RESP 14–40; TEMP 36.1–36.3; O2SAT 60–100; BMI 23.4
--- NOTE | ~2021-03-07 | US_ITS ---
EXAMINATION: US venous doppler [facility] DATE: 03/11/2021 11:06 INDICATION: Deep vein thrombosis. TECHNIQUE: Grayscale ultrasound images without and with compression and Doppler ultrasound images of the bilateral lower extremity veins were obtained. COMPARISON: Ultrasound 02/22/2020 FINDINGS: The visualized portions of right common femoral vein, profunda (deep) femoral vein, femoral vein, pop liteal vein, peroneal veins, posterior tibial veins, and greater saphenous vein outflow are patent. The visualized portions of left common femoral vein, profunda femoral vein, femoral vein, popliteal v ein, peroneal veins, posterior tibial veins, and greater saphenous vein outflow are patent. IMPRESSION: 1. No deep venous thrombosis. Reviewed, dictated and finalized at location A. ERY PAIRER
--- NOTE | ~2021-03-07 | US_ITS ---
EXAMINATION: US venous doppler [facility] DATE: 03/20/2021 13:23 INDICATION: Deep vein thrombosis. TECHNIQUE: Grayscale ultrasound images without and with compression and Doppler ultrasound images of the bilateral lower extremity veins were obtained. COMPARISON: Ultrasound 03/11/2021 FINDINGS: The visualized portions of right common femoral vein, profunda (deep) femoral vein, femoral vein, pop liteal vein, peroneal veins, posterior tibial veins, and greater saphenous vein outflow are patent. The visualized portions of left common femoral vein, profunda femoral vein, femoral vein, popliteal v ein, posterior tibial veins, and greater saphenous vein outflow are patent. There is thrombus in a le ft peroneal vein. IMPRESSION: 1. Deep vein thrombosis involving a left peroneal vein. Reviewed, dictated and finalized at location B. ADMINISTRATOR
--- NOTE | ~2021-03-07 | CT_ITS ---
EXAMINATION: CT brain wo con EXAM DATE: 03/07/2021 12:31 INDICATION: Seizure. Anaplastic oligodendroglioma. TECHNIQUE: Spiral CT of the head was performed without contrast. Axial, coronal and sagittal images were reviewed. The dose-length product (DLP) for this examination was 605.33 mGy-cm. The exposure w as tailored according to patient size, and iterative reconstruction (ASIR) was used as additional dos e reduction technique. Comparison is made to prior examination from 02/27/2021, 12/25/2020. FINDINGS: There is right frontal craniotomy with large region right frontal lobe resection. Again the re is a calcification, masslike region within the right frontotemporal region, right insula and basal ganglia. Some calcifications cross the midline to the left frontal lobe. Unchanged compared to last week, mild interval increase compared to 12/[address] Frontal lobe white matter low density could be radiation related change. Sinuses and mastoid air cells are well aerated. No acute hemorrhage, obst ructive hydrocephalus or evidence of acute infarction. 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 No acute findings. Reviewed, dictated and finalized at location B. 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 No acute findings.
--- NOTE | ~2021-03-07 | XR_ITS ---
EXAMINATION: XR chest 1V portable EXAM DATE: 03/07/2021 13:03 INDICATION: Seizure, shortness of air. Cough. TECHNIQUE: Portable AP frontal chest x-ray was obtained. Comparison is made to prior examination from 03/03/2021. FINDINGS: The lungs are clear. There are no pleural effusions. Mild cardiomegaly. There is no pneu mothorax suspected. The bones and soft tissues are unremarkable. IMPRESSION: No acute cardiopulmonary findings. Reviewed, dictated and finalized at location B. RAM MANAGEMENT INTERN
--- NOTE | ~2021-03-07 | XR_ITS ---
EXAMINATION: XR chest 1V portable EXAM DATE: 03/20/2021 06:34 INDICATION: Pneumonia. TECHNIQUE: Portable AP frontal chest x-ray was obtained. Comparison is made to prior examination from 03/18/2021. FINDINGS: Subsegmental bibasilar atelectasis or pneumonia unchanged. The lungs are otherwise clear. There are no pleural effusions. The cardiomediastinal silhouette is within normal limits. There is no pneumothorax suspected. The bones and soft tissues are unremarkable. IMPRESSION: Subsegmental bibasilar atelectasis or infiltrate unchanged. Reviewed, dictated and finalized at location A. ONNEL SUPERVISOR
--- NOTE | ~2021-03-07 | XR_ITS ---
EXAMINATION: XR chest 1V portable DATE: 03/28/2021 12:45 INDICATION: New onset wheezing TECHNIQUE: frontal view of the chest was obtained. COMPARISON: Chest radiograph dated 03/23/21 FINDINGS: Subtle opacities in the left lower lung zone. Right lung is clear. No pleural effusion or pneumothora x. Heart size is normal. IMPRESSION: 1. Subtle opacities in the left lower lung zone which could represent atelectasis and/or pneumonia. Reviewed, dictated and finalized at location B. FIC DIVISION COMMANDING OFFICER IMPRESSION: 1. Subtle opacities in the left lower lung zone which could represent atelectas is and/or pneumonia.
--- NOTE | ~2021-03-07 | XR_ITS ---
EXAMINATION: XR chest 1V portable DATE: 03/14/2021 07:34 INDICATION: Aspiration pneumonia. Cough. TECHNIQUE: A single frontal view of the chest was obtained. COMPARISON: Chest single view 03/11/2021, chest CT 03/09/2021 FINDINGS: There are mild peripheral airspace opacities in the mid and lower lung zones. No pleural ef fusion or pneumothorax. The heart size is normal. IMPRESSION: 1. Worsened mild peripheral airspace opacities in the mid and lower lung zones, consistent with atele ctasis versus pneumonia. Reviewed, dictated and finalized at location A. ICAL LANGUAGES PROFESSOR IMPRESSION: 1. Worsened mild peripheral airspace opacities in the mid and lower lung zones, consistent with atelectasis versus pneumonia.
--- NOTE | ~2021-03-07 | XR_ITS ---
EXAMINATION: XR chest 1V portable EXAM DATE: 03/23/2021 17:55 INDICATION: Shortness of breath. TECHNIQUE: Portable AP frontal chest x-ray was obtained. Comparison is made to prior examination from 03/21/2021. FINDINGS: Previously suspected left basilar subsegmental airspace disease also appreciated, no defini te acute airspace disease identified on this exam. There are no pleural effusions. The cardiomediast inal silhouette is within normal limits. There is no pneumothorax suspected. There are bony degener ative changes. IMPRESSION: No acute cardiopulmonary findings. Reviewed, dictated and finalized at location A. ET CASTER
--- NOTE | ~2021-03-07 | XR_ITS ---
EXAMINATION: XR chest 1V portable 03/11/2021 14:12 INDICATION: Pneumonia PROCEDURE: AP portable chest COMPARISON: 12/31/2020 FINDINGS: The lungs are clear. The cardiomediastinal silhouette is within normal limits. There are no pleural effusions. There is no pneumothorax suspected. IMPRESSION: 1: NO ACUTE CARDIOPULMONARY DISEASE. Reviewed, dictated and finalized at location A. RIDER
--- NOTE | ~2021-03-07 | US_ITS ---
EXAMINATION: US venous doppler [facility] DATE: 03/29/2021 16:29 INDICATION: Respiratory abnormality with new onset wheezing TECHNIQUE: Grayscale ultrasound images without and with compression and Doppler ultrasound images of the bilateral lower extremity veins were obtained. COMPARISON: None. FINDINGS: The visualized portions of right common femoral vein, profunda (deep) femoral vein, femoral vein, pop liteal vein, posterior tibial veins, peroneal veins, gastrocnemius vein and greater saphenous vein ou tflow are patent. The visualized portions of left common femoral vein, profunda femoral vein, femoral vein, popliteal v ein, posterior tibial veins, peroneal veins, gastrocnemius vein and greater saphenous vein outflow ar e patent. IMPRESSION: 1. No deep venous thrombosis in either lower limb. Reviewed, dictated and finalized at location B. NCE AND OPERATIONS OFFICER
--- NOTE | ~2021-03-07 | XR_ITS ---
EXAMINATION: XR abdomen/kub 1V DATE: 03/10/2021 22:50 INDICATION: Infection. Shortness of breath. TECHNIQUE: A supine view of the abdomen on 2 radiographs was obtained. COMPARISON: Chest CT 03/09/2021, CT abdomen and pelvis 06/10/2020 FINDINGS: There are no dilated loops of bowel. A gastrostomy tube is noted. Calcified uterine fibroid s are noted. IMPRESSION: 1. Normal bowel gas pattern. Reviewed, dictated and finalized at location A. H HAND
--- NOTE | ~2021-03-07 | XR_ITS ---
XR chest 1V portable DATE: 03/18/2021 06:26 INDICATION: Pneumonia TECHNIQUE: Portable upright AP chest on 03/18/2021 at 0608 hours COMPARISON: 03/12/2021 portable AP chest at 0457 hours FINDINGS: Normal heart size. Is mild infiltrate or atelectasis at the lung bases, left greater than r ight. No pleural effusion or pneumothorax is evident. IMPRESSION: Mild bibasilar infiltrate or atelectasis, greater on the left, not significantly changed since 03/12/2021 Reviewed, dictated and finalized at location A. R BASTER
--- NOTE | ~2021-03-07 | XR_ITS ---
XR chest 1V portable DATE: 03/16/2021 06:32 INDICATION: Pneumonia. Cough. TECHNIQUE: Portable AP chest on 03/16/2021 at 0457 hours COMPARISON: 03/14/2021 portable AP chest 03/09/2021 CT chest FINDINGS: There is infiltrate or atelectasis primarily at the left lung base. No pleural effusion or pulmonary vascular congestion or pneumothorax is evident. Heart size appears within normal limits. Is thoracic aortic arch calcification. Diffuse osteopenia. IMPRESSION: Left basilar infiltrate or atelectasis Reviewed, dictated and finalized at location A. A LIBRARIAN
--- NOTE | ~2021-03-07 | XR_ITS ---
EXAMINATION: XR chest 1V portable INDICATION: Fever TECHNIQUE: Portable AP chest at 1843 hours COMPARISON: 03/20/2021 FINDINGS: There is minimal stable airspace opacity of the left lung base. Right basilar atelectasis i s no longer evident. There is no pleural effusion or pneumothorax. The cardiomediastinal silhouette i s normal. IMPRESSION: 1. Left basilar airspace opacity, consistent with atelectasis versus pneumonia. Reviewed, dictated and finalized at location F. ESSOR GRAIN
--- NOTE | ~2021-03-07 | MR_ITS ---
EXAMINATION: MR brain/brain stem wo con DATE: 03/22/2021 10:09 INDICATION: Seizure activity. TECHNIQUE: Magnetic resonance imaging (MRI) of the brain and brainstem was performed without intraven ous contrast. Sequences included sagittal and axial T1-weighted FSE, axial diffusion-weighted FS EPI, axial T2*-weighted GRE, axial T2-weighted FLAIR Propeller, and axial T2-weighted Propeller. Apparent diffusion coefficient (ADC) maps were created. COMPARISON: Brain MRI 05/10/2020, head CT 03/07/2021 FINDINGS: There are changes of resection of anterior right frontal lobe. There is a mass of increased T2-weighted signal intensity involving the right frontal lobe, medial left frontal lobe, anterior te mporal lobe, right insula, right basal ganglia, right internal capsule, right hippocampus, and right thalamus. The mass demonstrates calcifications on the prior CT. Increased T2-weighted signal intensit y in the cerebral white matter with an anterior predominance is likely a combination of vasogenic [place], treatment change, and chronic small vessel ischemic disease. There is chronic volume loss of left frontal lobe anteriorly. There is a large distribution of increased T2-weighted signal intensity in the cuenca matter of the right cerebral hemisphere and left frontal lobe. There is no acute ischemic in farct or intracranial hemorrhage. There is ex vacuo dilatation of the lateral ventricles anteriorly. The orbits are normal. There is near complete opacification of sphenoid sinus. The mastoid air cells are normal. IMPRESSION: 1. Calcified mass involving the frontal lobes, right temporal lobe, right insula, right basal ganglia , right internal capsule, right thalamus, and right hippocampus status post resection of anterior rig ht frontal lobe, consistent with residual anaplastic oligodendroglioma, worsened from 05/10/20. 2. White matter disease with a frontal predominance, likely a combination of vasogenic edema, chronic small vessel ischemic disease, and changes of radiation therapy. 3. Large distribution of cortical increased T2-weighted signal intensity involving the right cerebral hemisphere and left frontal lobe, most likely changes of radiation therapy given the distribution. Reviewed, dictated and finalized at location B. HOUSE AND RECEIVING SUPERVISOR IMPRESSION: 1. Calcified mass involving the frontal lobes, right temporal lobe, right insul a, right basal ganglia, right internal capsule, right thalamus, and right [place] status post resection of anterior right frontal lobe, consistent with re sidual anaplastic oligodendroglioma, worsened from 05/10/20. 2. White matter disease with a frontal predominance, likely a combination of va sogenic edema, chronic small vessel ischemic disease, and changes of radiation therapy. 3. Large distribution of cortical increased T2-weighted signal intensity involv ing the right cerebral hemisphere and left frontal lobe, most likely changes of radiation therapy given the distribution.
--- NOTE | ~2021-03-07 | CT_ITS ---
EXAMINATION: CT diagnostic chest wo con EXAM DATE: 03/09/2021 13:48 INDICATION: Pneumonia. TECHNIQUE: Spiral CT of the chest without contrast. Axial, coronal and sagittal images of the chest were reviewed. Coronal maximum intensity pixel images of chest reviewed. The dose-length product ( DLP) for this examination was 356.20 mGy-cm. The exposure was tailored according to patient size (au to mA exposure control), and iterative reconstruction (ASIR) was used as additional dose reduction te chnique. Comparison is made to prior examination from 03/16/2020. FINDINGS: Subsegmental dependent right lower lobe atelectasis. Mild emphysema. Trace right pleural effusion. Tracheobronchial tree is patent. There is no mediastinal, hilar or axillary lymphadenopa thy. There is no pneumothorax. Heart normal in size. There is mild coronary arterial calcificat ion, arterial sclerosis. Gastrostomy tube in position. Hazy fat planes surrounding the gallbladder w hich has only mild distention and no calcified cholelithiasis There is thoracic spondylosis without osteoblastic or osteolytic lesions identified. IMPRESSION: 1. Hazy pericholecystic fat planes, nonspecific. No gallbladder distention or calcified cholelithias is. 2. Dependent right lung subsegmental atelectasis and trace right pleural effusion. Reviewed, dictated and finalized at location B. H RICE GRADER IMPRESSION: 1. Hazy pericholecystic fat planes, nonspecific. No gallbladder distention or calcified cholelithiasis. 2. Dependent right lung subsegmental atelectasis and trace right pleural effus ion.
[2021-03-07] MEDS: SODIUM CHLORIDE 0.9% IV 1,000 ML 999 ML IV CONT (12:11)
--- NOTE | 2021-03-07 12:23 | ED.SEIZURE ---
HPI - Seizure General Chief Complaint: Seizure Stated Complaint: SEIZURE History of Present Illness HPI Narrative: Patient is a 76-year-old female who presents ER status post seizure. Found at her half-way by housekeeping having a seizure. EMS arrived and patient was staring off to the left side having what they felt was a focal seizure and patient then generalized with full tonic-clonic seizure. Arms were in flexion. Patient received some Versed. No history of seizures in the past. Patient then became slightly apneic and was receiving assisted ventilations through bag valve mask. Patient is diabetic. Blood sugar was in the 140s. Seizure History: Yes Related Data Home Medications Medication Instructions Recorded Confirmed ascorbic acid (vitamin C) [Vitamin 500 mg FEEDING TUBE DAILY 03/16/20 02/28/21 C] cholecalciferol (vitamin D3) 1,250 mcg FEEDING TUBE WEEKLY 03/17/20 02/28/21 lactulose 15 ml FEEDING TUBE Q8H PRN 03/17/20 02/28/21 albuterol sulfate 2.5 mg INHALATION Q6HRT PRN 06/11/20 02/28/21 Fleet Enema 118 ml RECTAL DAILY PRN 12/26/20 02/28/21 umeclidinium-vilanterol 1 inh INHALATION DAILY PRN 12/26/20 02/28/21 bisacodyl 10 mg RECTAL DAILY PRN 01/01/21 02/28/21 d-mannose 500 mg DAILY 01/01/21 02/28/21 diclofenac sodium 1 applic TOPICAL BID PRN 01/01/21 02/28/21 magnesium citrate [Citroma] 296 ml FEEDING TUBE DAILY PRN 01/01/21 02/28/21 magnesium hydroxide 30 ml FEEDING TUBE HS PRN 01/01/21 02/28/21 ondansetron HCl 4 mg FEEDING TUBE Q6H PRN 01/01/21 02/28/21 Basaglar KwikPen U-100 Insulin 20 unit SUBCUT DAILY 01/26/21 02/28/21 Saccharomyces boulardii [Florastor] 250 mg FEEDING TUBE BID 01/26/21 02/28/21 omeprazole 20 mg FEEDING TUBE BID 01/26/21 02/28/21 acetaminophen [Mapap 650 mg FEEDING TUBE Q8H PRN 02/28/21 02/28/21 (acetaminophen)] baclofen 5 mg FEEDING TUBE HS 02/28/21 02/28/21 cetirizine [Allergy Relief 10 mg FEEDING TUBE DAILY 02/28/21 02/28/21 (cetirizine)] chlorhexidine gluconate [Peridex] 15 ml BUCCAL BID 02/28/21 02/28/21 insulin aspart U-100 [Novolog 1 sliding scale dose SUBCUT 02/28/21 02/28/21 Flexpen U-100 Insulin] USEASDIRECTD magnesium hydroxide [Milk of 15 ml PO DAILY PRN 02/28/21 02/28/21 Magnesia] Allergies Allergy/AdvReac Type Severity Reaction Status Date / Time shellfish derived Allergy Unknown Hives Verified 02/27/21 23:11 codeine Allergy Unknown Verified 02/27/21 23:11 erythromycin base Allergy Unknown Verified 02/27/21 23:11 hydrocodone Allergy Unknown Verified 02/27/21 23:11 ibuprofen Allergy Unknown Verified 02/27/21 23:11 Iodinated Contrast Media Allergy Unknown Verified 02/27/21 23:11 meperidine Allergy Unknown Verified 02/27/21 23:11 mepivacaine [From Carbocaine] Allergy Unknown Verified 02/27/21 23:11 propoxycaine Allergy Unknown Verified 02/27/21 23:11 propoxyphene Allergy Unknown Verified 02/27/21 23:11 Sulfa (Sulfonamide Allergy Unknown Verified 02/27/21 23:11 Antibiotics) Review of Systems Review of Systems: ROS unobtainable: Yes unobtainable due to medical condition PMFSH Past Medical History Medical History (Updated 03/07/21 @ 21:46 by Marvin Jacobson MD) Chronic anemia Chronic GERD Chronic indwelling Hodge catheter Dementia Dysphagia Peg tube in-situ. Elevated transaminase level Appears chronic. 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 Surgical History Surgical History (Updated 03/07/21 @ 20:24 by Nandini Parra PA-C) Gastrointestinal tube in situ (~02/2020) History of craniotomy Right frontal lobe craniotomy with resection of oligodendroglioma. Family History Family History Mother Diabetes mellitus Father Lung cancer Sibling Breast cancer she has Sibling Breast cancer Father Lung ca
[2021-03-07 12:25] LABS: Alveolar/Arterial O2 Gradient 101.3 mmHg; Base Excess ABG -1.7 mEq/l (+/-2.0); Carboxyhemoglobin 0.3 % THb (0-2.0); Fractional Inspired Oxygen 28 %; HCO3 ABG 21.7 mEq/l (22.0-26.0); Methemoglobin ABG 0.1 %THb (0-1.5); Oxygen Content ABG 14.2 %vol (16.0-22.0); Oxygen Saturation ABG 92.2 % (95.0-100.0); Oxyhemoglobin 89.5 % THb (90.0-100.0); PCO2 ABG 32.6 mmHg (35.0-45.0); PO2 ABG 59.9 mmHg (80.0-100.0); PO2 FiO2 Ratio Arterial Blood 2.14 %; Reduced Hemoglobin 10.1 %THb (0-5.0); Total Hemoglobin 11.3 g/dL (12.0-18.0); pH ABG 7.442 (7.350-7.450)
[2021-03-07 12:26] LABS: Site Drawn RIGHT RADIAL
[2021-03-07 12:27] LABS: Device NASAL CANNULA; Modified Allen's Test Pass
[2021-03-07 12:27] LABS: Basophils Percent Auto 0.2 % (0.2-1.2); Eosinophils Absolute Auto 0.4 K/mm3 (0-0.3); Eosinophils Percent Auto 2.1 % (0-4.4); Hematocrit 36.4 % (37.0-47.0); Immature Granulocyte Absolute 0.33 K/mm3 (0.00-0.031); Immature Granulocyte Percent A 1.8 % (0-0.5); Lymphocytes Absolute Auto 4.62 K/mm3 (0.9-3.2); Lymphocytes Percent Auto 24.8 % (18.3-44.2); Mean Corpuscular HGB Conc 30.2 g/dl (32-36); Mean Corpuscular Hemoglobin 25.8 pg (26-34); Mean Corpuscular Volume 85.2 fl (80-100); Mean Platelet Volume 9.7 fl (7.4-10.4); Monocytes Percent Auto 5.2 % (2.6-8.5); Neutrophils Absolute Auto 12.3 K/mm3 (1.3-6.7); Neutrophils Percent Auto 65.9 % (45.5-73.1); Platelet Count Result 356 k/mm3 (150-375); Red Blood Count 4.27 M/mm3 (4.2-5.4); Red Cell Distribution Width 16.4 % (11.5-14.5); White Blood Count 18.6 K/mm3 (4.5-10.0)
[2021-03-07 12:38] LABS: Alanine Aminotransferase 20 U/L (4-35); Albumin Level 3.2 g/dL (3.5-5.1); Alkaline Phosphatase 65 U/L (38-126); Anion Gap 12 mmol/L (8-16); Aspartate Amino Transferase 26 U/L (14-36); Bilirubin,Total 0.2 mg/dL (0.2-1.3); Blood Urea Nitrogen 29 mg/dL (7-17); Calcium 8.2 mg/dL (8.4-10.2); Carbon Dioxide 21 mmol/L (22-30); Chloride 104 mmol/L (98-107); Estimated CRCL calculation 64 ml/min; Estimated Glomerular Filt Rate > 60; Glucose 136 mg/dL (65-110); Potassium 4.1 mmol/L (3.4-5.0); Sodium 137 mmol/L (137-145)
[2021-03-07 12:39] LABS: Ammonia < 9 umol/L (9-30)
[2021-03-07 12:46] LABS: NT Pro B Type Natriuretic Pept 160 pg/mL (5-100)
[2021-03-07 12:47] LABS: Lactic Acid Reflex 4.8 mmol/L (0.7-2.1)
[2021-03-07 13:11] LABS: Add Urine Microscopic? YES; Amorphous Sediment Urine Few; Appearance Urine Cloudy (Clear); Bacteria Urine Trace /hpf; Bilirubin Urine Negative (Negative); Blood Urine Negative (Negative); Color Urine Yellow (Yellow); Glucose Urine UA Negative (Negative); Ketones Urine Negative (Negative); Leukocyte Esterase Ur Negative LEU/UL (Negative); Mucus Urine Rare /lpf; Nitrate Urine Negative (Negative); Protein Urine Negative (Negative); Specific Grav Ur 1.017 (1.001-1.035); Squamous Epithelial Cell Urine Rare /hpf (Few); WBC Urine 0-3 /hpf
[2021-03-07 14:26] LABS: Prothrombin Time 13.2 Seconds (11.1-14.7)
--- NOTE | 2021-03-07 14:30 | PM.IMHP ---
H&P: HPI History of Present Illness Date/Time: 03/07/21 14:30 Chief Complaint: Seizure. Narrative: This is an unfortunate 76-year-old female with history of brain cancer, seizure, dementia, and insulin-dependent diabetes who presented to the emergency department earlier today via EMS from [facility] for evaluation after a seizure. She is reportedly nonverbal at baseline and cannot provide history and as such majority of the following is obtained via a review of her electronic medical records as well as from information obtained from family members. It is my understanding that bell staff at the [facility] witnessed the patient having a seizure and they called 911. On EMS arrival the patient seemed to be staring off to the left and paramedics thought she was having a focal seizure at that time though it progressed to a full tonic clonic seizure. She was given Versed with improvement in her seizure activity. Thereafter she became hypopneic and she was receiving assisted ventilations through a bag-valve mask on arrival to the ER. 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 The emergency department physician spoke with Neurology and she was loaded with Keppra and she will be started on 500 mg b.i.d. Family members are requesting to speak with an oncologist for a 2nd opinion. At the time my evaluation she will open her eyes to name and did squeeze my fingers with her right hand though she follows no commands and she answers no questions. It should be noted that she was recently hospitalized for about 5 days with acute renal failure and urinary tract infection, [facility] to [facility]. Review of Systems Review of Systems: Unable to be obtained given clinical condition as detailed above. [facility] Past Medical History Medical History (Updated 03/07/21 @ 20:30 by Nandini Parra PA-C) Chronic anemia Chronic GERD Chronic indwelling Hodge catheter Dementia Dysphagia Peg tube in-situ. Elevated transaminase level Appears chronic. 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 Surgical History Surgical History (Updated 03/07/21 @ 20:24 by Nandini Parra PA-C) Gastrointestinal tube in situ (~02/2020) History of craniotomy Right frontal lobe craniotomy with resection of oligodendroglioma. Family History Family History Mother Diabetes mellitus Father Lung cancer Sibling Breast cancer she has Sibling Breast cancer Father Lung cancer Social History Social History (Updated 03/07/21 @ 20:25 by Nandini Parra PA-C) Social History: The patient is a resident at a local [facility]. She is a former smoker. No alcohol or illicit substance use. Julia Phelps is her healthcare power hand lacer. Code status: Modified code, no CPR. Meds Home Medications and Allergies Home Medications Medication Instructions Recorded Confirmed Type ascorbic acid (vitamin C) [Vitamin 500 mg FEEDING TUBE DAILY 03/16/20 02/28/21 History C] cholecalciferol (vitamin D3) 1,250 mcg FEEDING TUBE WEEKLY 03/17/20 02/28/21 History lactulose 15 ml FEEDING TUBE Q8H PRN 03/17/20 02/28/21 History albuterol sulfate 2.5 mg INHALATION Q6HRT PRN 06/11/20 02/28/21 History Fleet Enema 118 ml RECTAL DAILY PRN 12/26/20 02/28/21 History umeclidinium-vilanterol 1 inh INHALATION DAILY PRN 12/26/20 02/28/21 History Basaglar KwikPen U-100 Insulin 20 unit SUBCUT HS #0 ml 12/27/20 02/28/21 Rx bisacodyl 10 mg RECTAL DAILY PRN 01/01/21 02/28/21 History d-mannose 500 mg DAILY 01/01/21 02/28/21 History diclofenac sodium 1 applic TOPICAL BID PRN 01/01/21 02/28/21 History magnesium
[2021-03-07 15:24] LABS: Reflex Lactic Acid Yes or No Add Lactic
[2021-03-07] MEDS: levETIRAcetam 1000MG/NACL100ML 1,000 MG/100 ML BAG 400 MG IVPB (15:28)
[2021-03-07 16:12] LABS: Lactic Acid 2.8 mmol/L (0.7-2.1)
[2021-03-07] MEDS: PIPERACILLIN/TAZOBACTAM SOD 4.5 GM in SODIUM CHLORIDE 0.9% IV 100 ML 200 ML IVPB (17:10)
[2021-03-07] MEDS: DEXAMETHASONE SOD PHOS INJ 4 MG/ML VIAL IV PUSH (17:36)
--- NOTE | 2021-03-07 21:15 | ADMGEN ---
This patient, Linette Vásquez, was admitted to [facility] Surg Room 331-02. Patient/family oriented to hospital policies and general routines including ID bracelet, bed and alarms, visiting hours, pain management, procedures, bathroom and other care routines, personal items, smoking policy, room service/diet, and visiting hours. Information on how to activate the Rapid Response Team has been discussed. Patient/Family are encouraged to report perceived risks to care and to ask questions if they do not understand what they are told or what they should do.
[2021-03-07 23:01] LABS: Hemoglobin A1C 6.9 % (<5.7)
[2021-03-08] VITALS (11 sets, daily range): BP systolic 90–102; BP diastolic 48–65; PULSE 63–81; RESP 18–20; TEMP 35.7–36.3; O2SAT 93–97
[2021-03-08 00:06] LABS: Glucose Point of Care 205 mg/dl (65-105)
[2021-03-08] MEDS: levETIRAcetam ORAL SOL 500 MG/5 ML UDC FEED TUBE ×3 (01:44→21:58)
[2021-03-08] MEDS: PIPERACILLIN/TAZOBACTAM SOD 4.5 GM in SODIUM CHLORIDE 0.9% IV 100 ML 200 ML IVPB ×5 (01:44→23:53)
[2021-03-08] MEDS: DEXAMETHASONE SOD PHOS INJ 4 MG/ML VIAL IV PUSH ×5 (01:44→23:53)
[2021-03-08 07:27] LABS: Hematocrit 37.8 % (37.0-47.0); Hemoglobin 11.2 g/dL (12.0-15.0); Mean Corpuscular HGB Conc 29.6 g/dl (32-36); Mean Corpuscular Hemoglobin 25.5 pg (26-34); Mean Corpuscular Volume 85.9 fl (80-100); Mean Platelet Volume 10.3 fl (7.4-10.4); Platelet Count Result 332 k/mm3 (150-375); Red Cell Distribution Width 16.8 % (11.5-14.5); White Blood Count 15.8 K/mm3 (4.5-10.0)
[2021-03-08 07:34] LABS: Alanine Aminotransferase 20 U/L (4-35); Albumin Level 3.5 g/dL (3.5-5.1); Alkaline Phosphatase 75 U/L (38-126); Anion Gap 10 mmol/L (8-16); Aspartate Amino Transferase 20 U/L (14-36); Bilirubin,Total 0.5 mg/dL (0.2-1.3); Blood Urea Nitrogen 18 mg/dL (7-17); CRP 3.5 mg/dL (<1.0); Calcium 8.7 mg/dL (8.4-10.2); Carbon Dioxide 23 mmol/L (22-30); Chloride 108 mmol/L (98-107); Estimated CRCL calculation 64 ml/min; Estimated Glomerular Filt Rate > 60; Glucose 194 mg/dL (65-110); Magnesium 2.3 mg/dL (1.6-2.3); Potassium 4.1 mmol/L (3.4-5.0); Sodium 141 mmol/L (137-145)
[2021-03-08 09:14] LABS: Glucose Point of Care 197 mg/dl (65-105)
--- NOTE | 2021-03-08 10:02 | PM.IMPN ---
Progress Note: A&P Assessment and Plan (1) Seizure: Code(s): R56.9 - Unspecified convulsions Status: Acute Assessment and Plan: Patient reportedly has a history of seizures and brain CT does show a mild increase in the size of a large infiltrative calcified mass. There was no mention of surrounding vasogenic edema. She has been loaded with Keppra and will be started on [address] Morley recommendations. She has also been started on dexamethasone 4 mg q.6 hours. Initiate seizure precautions. (2) Brain tumor: Code(s): D49.6 - Neoplasm of unspecified behavior of brain Status: Acute Assessment and Plan: Slight increase in brain tumor when compared to imaging 2 months ago. Family members are requesting Oncology consult thus will ask Dr. Blanton to see her. (3) Leukocytosis: Code(s): D72.829 - Elevated white blood cell count, unspecified Status: Acute Assessment and Plan: May be related to seizure activity. I have not been able to find any evidence to suggest underlying infection. She was started on Zosyn in the emergency department for possible aspiration while in the emergency department I will continue with that for now. (4) Chronic anemia: Code(s): D64.9 - Anemia, unspecified Status: Acute Assessment and Plan: Hemoglobin and hematocrit are stable on review of previous labs. (5) Insulin dependent type 2 diabetes mellitus: Code(s): E11.9 - Type 2 diabetes mellitus without complications; Z79.4 - FPC (current) use of insulin Status: Acute Assessment and Plan: Continue basal insulin. Initiate sliding scale insulin, Accu-Cheks, and hypoglycemic protocol. Additional Plan 03/08/21 pending consult by oncology gretchen per neuro infiltrating calcified brain mass on imaging unclear what interventions are availble to pt at this time will follow up on Oncology's recs later today Home meds started Feeds started Continue current care Subjective Date/time seen: 03/08/21 10:02 Patient does not track me with her eyes she is minimally interactive to my evaluation and she is nonverbal at baseline Exam Narrative: General: Chronically ill-appearing elderly female lying in bed Weight: 70.31 kg. BMI: 25.0. HEENT: Sclerae anicteric. Conjunctiva mildly injected. She would not open her mouth for examination. Neck: Supple No obvious JVD, bruits, adenopathy, or thyromegaly. Respiratory: No acute respiratory distress Lung sounds are diminished due to poor effort. Cardiovascular: Regular rate and rhythm with S1-S2. Gastrointestinal: Abdomen is soft, nontender, and nondistended with positive bowel sounds. G-tube site is clean, dry, and intact. Skin: Warm and dry. Generalized pallor. Extremities: No cyanosis, clubbing, or edema. Radial and pedal pulses intact. No palpable knots or cords. Atrophy of lower extremities Neurological: She did open her eyes with stimuli. No obvious facial asymmetry. She did not answer questions.. Psychiatric: Unable to assess given clinical condition. Objective Data Vital Signs Vital Signs: Vital Signs - 24 hr 03/07/21 11:59 03/07/21 12:32 03/07/21 12:37 Temperature 97.3 F L Pulse Rate 98 83 Respiratory Rate 16 20 Blood Pressure 90/45 L 90/45 L Pulse Oximetry 95 92 87 L 03/07/21 12:41 03/07/21 12:45 03/07/21 13:01 Temperature Pulse Rate 84 79 78 Respiratory Rate 16 18 22 H Blood Pressure 90/45 L 92/46 L Pulse Oximetry 98 99 100 03/07/21 13:02 03/07/21 13:15 03/07/21 13:30 Temperature Pulse Rate 76 77 Respiratory Rate 21 H 20 24 H Blood Pressure Pulse Oximetry 100 03/07/21 13:45 03/07/21 14:00 03/07/21 14:15 Temperature Pulse Rate 78 77 76 Respiratory Rate 22 H 21 H 24 H Blood Pressure 84/43 L Pulse Oximetry 100 100 98 03/07/21 14:16 03/07/21 14:30 03/07/21 14:31 Temperature Pulse Rate 75 88 88 Respiratory Rate 24 H 28 H 32 H Bloo
[2021-03-08 12:13] LABS: Glucose Point of Care 207 mg/dl (65-105)
--- NOTE | 2021-03-08 14:55 | WPDNEURCNPN ---
Assessment and Plan Additional Plan focal with secondary generalization seizure with underlying focus of the tumor and plan is to continue the anticonvulsants and consult with oncologist as the family is requesting Consult date: 03/08/21 HPI: Linette Vásquez is a 76 year old female 76 years old right-handed female has been admitted to [facility] through the emergency room where she was brought by the EMS from [facility] for evaluation after a seizure patient reportedly normal below at baseline and cannot provide any history has ani Marcellus T of the information was obtained through the electronic medical records by the initial physician as per the information available the technical staff engineer at the [facility] witnessed the patient having a seizure and they called 911 on EMS arrival the patient seemed to be staring off to the left side and paramedics thought she was having a focal seizure though it progressed to a full-blown tonic-clonic generalized seizure she received Versed with some improvement thereafter she became apneic and was receiving a assisted ventilation through a bag wall mass arrival to the emergency room the initial CT scan of the brain documented infiltrative calcified mass consistent with anaplastic oligodendroglioma is mild increase in size compared to the studies done in December of 2020 she was loaded with Keppra in the emergency room and was started on Keppra 500 mg b.i.d. the family is requesting to or speak with the oncologist for 2nd opinion she was initially opening her eyes his squeeze the finger of her right hand though she did not follow the verbal commands appropriately Review of Systems Review of Systems: All systems reviewed & are unremarkable except as noted in HPI and below PMFSH Past Medical History Medical History Chronic anemia Chronic GERD Chronic indwelling Hodge catheter Dementia Dysphagia Peg tube in-situ. Elevated transaminase level Appears chronic. 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 Surgical History Surgical History Gastrointestinal tube in situ (~02/2020) History of craniotomy Right frontal lobe craniotomy with resection of oligodendroglioma. Family History Family History Mother Diabetes mellitus Father Lung cancer Sibling Breast cancer she has Sibling Breast cancer Father Lung cancer Social History Social History Social History: The patient is a resident at a local [facility]. She is a former smoker. No alcohol or illicit substance use. Julia Phelps is her healthcare power ip technology transactions attorney. Code status: Modified code, no CPR. Smoking status: Unknown if ever smoked Spiritual care concerns: No Meds Home Medications and Allergies Home Medications Medication Instructions Recorded Confirmed Type ascorbic acid (vitamin C) [Vitamin 500 mg FEEDING TUBE DAILY 03/16/20 03/08/21 History C] cholecalciferol (vitamin D3) 1,250 mcg FEEDING TUBE WEEKLY 03/17/20 03/08/21 History lactulose 15 ml FEEDING TUBE Q8H PRN 03/17/20 03/08/21 History albuterol sulfate 2.5 mg INHALATION Q6HRT PRN 06/11/20 03/08/21 History Fleet Enema 118 ml RECTAL DAILY PRN 12/26/20 03/08/21 History umeclidinium-vilanterol 1 inh INHALATION DAILY PRN 12/26/20 03/08/21 History bisacodyl 10 mg RECTAL DAILY PRN 01/01/21 03/08/21 History d-mannose 500 mg DAILY 01/01/21 03/08/21 History diclofenac sodium 1 applic TOPICAL BID PRN 01/01/21 03/08/21 History magnesium citrate [Citroma] 296 ml FEEDING TUBE DAILY PRN 01/01/21 03/08/21 History magnesium hydroxide 30 ml FEEDING TUBE HS PRN 01/01/21 03/08/21 History ondansetron HCl 4 mg F
[2021-03-08] MEDS: SODIUM CHLORIDE 0.9% IV 1,000 ML 50 ML IV CONT (16:05)
[2021-03-08] MEDS: BACLOFEN 5 MG TABLET FEED TUBE (22:01)
[2021-03-08] MEDS: INSULIN GLARGINE (*BKC) 100 UNITS/ML 20 UNITS SUB-Q (22:03)
[2021-03-08 22:16] LABS: Glucose Point of Care 187 mg/dl (65-105)
[2021-03-08] MEDS: INSULIN ASPART (*BKC) 100 UNITS/ML SUB-Q (23:57)
[2021-03-09] VITALS (8 sets, daily range): BP systolic 89–103; BP diastolic 41–48; PULSE 49–61; RESP 14–17; TEMP 36–36.8; O2SAT 96–99; BMI 23.3
[2021-03-09 01:14] LABS: Glucose Point of Care 179 mg/dl (65-105)
[2021-03-09 05:43] LABS: Glucose Point of Care 182 mg/dl (65-105)
[2021-03-09] MEDS: PIPERACILLIN/TAZOBACTAM SOD 4.5 GM in SODIUM CHLORIDE 0.9% IV 100 ML 200 ML IVPB ×3 (05:44→17:11)
[2021-03-09] MEDS: INSULIN ASPART (*BKC) 100 UNITS/ML SUB-Q ×2 (05:44→17:10)
[2021-03-09] MEDS: DEXAMETHASONE SOD PHOS INJ 4 MG/ML VIAL IV PUSH ×3 (05:45→17:11)
[2021-03-09] MEDS: LANSOPRAZOLE ORAL SUSP 30 MG/10 ML ORAL.SUSP FEED TUBE (05:46)
[2021-03-09] MEDS: levETIRAcetam ORAL SOL 500 MG/5 ML UDC FEED TUBE (09:55)
[2021-03-09] MEDS: SACCHAROMYCES BOULARDII 250 MG CAPSULE FEED TUBE ×2 (09:56→17:11)
[2021-03-09] MEDS: ASCORBIC ACID 500 MG TABLET FEED TUBE (09:56)
[2021-03-09] MEDS: LORATADINE 10 MG TABLET FEED TUBE (09:56)
--- NOTE | 2021-03-09 11:09 | WPDNEUROLOGY ---
Neurology EEG Report General Information Date of Study: 03/08/21 TEST eeg DIAGNOSIS seizures CONDITION OF RECORDING lethargic EEG NUMBER [id number] CLINICAL HISTORY no particular history available EEG DESCRIPTION background rhythm consists of low to medium voltage 5 to 7 hertz per 2nd theta admixed with low to medium voltage 3 to 4 hertz per 2nd delta activity ,bihemispheric paroxysmal activity is noted more predominant on the right side as compared to the left, Hyperventilation not done. Photic stimulation not done. Paroxysmal. Focal. Lateralizing. IMPRESSION Abnormal record due to the presence of bihemispheric paroxysmal activity with focal slow wave as well predominant in the right side as compared to the left clinical correlation recommended these abnormalities are suggestive of paroxysmal activity with right-sided focal
--- NOTE | 2021-03-09 11:33 | PC.NURSE ---
Dr. Morley was given a message from the family and POA for pt with a call back number as they wanted to discuss pt's plan of care with him. After calling pt's family/POA, he informed me that there was a conference call with several family members and the POA. During the call, they stated that they wanted pt to stop taking Keppra. Dr. Morley informed them that pt was at a high risk of having seizures again without the Keppra; however, the family/POA insisted that the Keppra be stopped. The family further informed Dr. Morley that if seizures resumed then pt could be given Topomax at that time.
[2021-03-09 12:05] LABS: Glucose Point of Care 187 mg/dl (65-105)
[2021-03-09] MEDS: SODIUM CHLORIDE 0.9% IV 1,000 ML 50 ML IV CONT (12:21)
[2021-03-09 13:02] LABS: Basophils Percent Auto 0.1 % (0.2-1.2); Hematocrit 34.9 % (37.0-47.0); Hemoglobin 10.4 g/dL (12.0-15.0); Immature Granulocyte Percent A 1.3 % (0-0.5); Lymphocytes Absolute Auto 1.66 K/mm3 (0.9-3.2); Lymphocytes Percent Auto 10.6 % (18.3-44.2); Mean Corpuscular HGB Conc 29.8 g/dl (32-36); Mean Corpuscular Hemoglobin 25.6 pg (26-34); Mean Platelet Volume 10.1 fl (7.4-10.4); Monocytes Absolute Auto 0.7 K/mm3 (0.1-0.6); Monocytes Percent Auto 4.4 % (2.6-8.5); Neutrophils Absolute Auto 13.1 K/mm3 (1.3-6.7); Neutrophils Percent Auto 83.6 % (45.5-73.1); Platelet Count Result 308 k/mm3 (150-375); Red Blood Count 4.06 M/mm3 (4.2-5.4); Red Cell Distribution Width 16.6 % (11.5-14.5); White Blood Count 15.6 K/mm3 (4.5-10.0)
[2021-03-09 13:15] LABS: Anion Gap 7 mmol/L (8-16); Blood Urea Nitrogen 24 mg/dL (7-17); Calcium 8.6 mg/dL (8.4-10.2); Carbon Dioxide 22 mmol/L (22-30); Chloride 112 mmol/L (98-107); Estimated CRCL calculation 64 ml/min; Estimated Glomerular Filt Rate > 60; Glucose 205 mg/dL (65-110); Potassium 3.6 mmol/L (3.4-5.0); Sodium 141 mmol/L (137-145)
--- NOTE | 2021-03-09 13:59 | WPDNEUROPN ---
Subjective Date/time seen: 03/09/21 13:[age] years old has been admitted to the hospital for the seizures in addition to the ongoing diagnosis of calcified mass consistent with anaplastic oligo dandruff glioma with mild increase in size compared to studies done in December of 2020 she was loaded with Keppra in the emergency room. I was called by the family members because there were reluctant to continue the Keppra at this particular time a telephone conversation was made with them other family members on the line as well they all agreed at this particular time not to give any Keppra but if unfortunate seizures recur then we can restart the anticonvulsants they had some feeling that Keppra was not good for her in case if you have to restart the medication they will prefer Lamictal or Topamax . I told the nurse to follow the instruction so at this stage she is not taking any convulsants but if unfortunately seizures recurred weakened in start the different anticonvulsants. He also wanted to know the size of the tumor. Different MRIs were noted in the computer records which were all discussed with the her examination remains unchanged and the treatment is as such Objective Data Vital Signs Vital Signs: Vital Signs - 24 hr 03/08/21 14:00 03/08/21 16:00 03/08/21 20:00 Temperature 35.9 C L Pulse Rate 76 67 63 Respiratory Rate 20 Blood Pressure 91/48 L Pulse Oximetry 95 03/08/21 21:20 03/09/21 00:00 03/09/21 04:00 Temperature 35.7 C L Pulse Rate 64 58 L 58 L Respiratory Rate 18 Blood Pressure 90/65 L Pulse Oximetry 93 03/09/21 04:12 Temperature 36.0 C L Pulse Rate 59 L Respiratory Rate 17 Blood Pressure 103/48 L Pulse Oximetry 97 Intake/Output Intake/Output: Intake & Output 03/06/21 03/07/21 03/08/21 03/09/21 23:59 23:59 23:59 23:59 Intake Total 0263 054 8181 Balance 3289 903 9733 Meds/Results Medications: Active Medications Generic Name Dose Route Start Last Admin Trade Name Freq PRN Reason Stop Dose Admin Acetaminophen 650 mg 03/08/21 18:56 Acetaminophen Elixir 325 Mg/10.15 Ml Udc FEED TUBE Q8H PRN Mild Pain (1-3) Albuterol 2.5 mg 03/08/21 18:56 Albuterol Sulfate Neb 2.5 Mg/0.5 Ml Inh INHALATION Q6HRT PRN Shortness Of Breath Ascorbic Acid 500 mg 03/09/21 09:00 03/09/21 09:56 Ascorbic Acid 500 Mg Tablet FEED TUBE 500 mg DAILY BRYCE Administration Baclofen 5 mg 03/08/21 21:00 03/08/21 22:01 Baclofen 5 Mg Tablet FEED TUBE 5 mg HS BRYCE Administration Bisacodyl 10 mg 03/08/21 18:56 Bisacodyl 10 Mg Suppository RECTAL DAILY PRN Constipation Chlorhexidine Gluconate 15 ml 03/08/21 21:00 03/09/21 09:54 Chlorhexidine Gluconate 0.12% Oral Rinse 473 Ml Btl (*Bkc) SWISH/SPIT Not Given Q12HR BRYCE Dexamethasone Sodium Phosphate 4 mg 03/08/21 00:00 03/09/21 12:22 Dexamethasone Sod Phos Inj 4 Mg/Ml Vial IV PUSH 4 mg Q6HR BRYCE Administration Dextrose 12.5 gm 03/07/21 20:35 Dextrose 50% 25 Gm/50 Ml Syringe IV PUSH PRN PRN Hypoglycemia Protocol Diclofenac Sodium 1 applic 03/08/21 18:56 Diclofenac Sodium 1% 100 Gm Gel (*Bkc) TOPICAL Q12HR PRN LEFT HAND PAIN Ergocalciferol 50,000 unit 03/12/21 09:00 Ergocalciferol 50,000 Unit Capsule FEED TUBE Mo@0900 BRYCE Glucagon 1 mg 03/07/21 20:35 Glucagon For Inj 1 Mg Vial IM PRN PRN Hypoglycemia Protocol Glucose 15 gm 03/07/21 20:35 Glucose Oral Gel 15 Gm Of Glucse In 37.5 Gm Tube PO PRN PRN Hypoglycemia Protocol Piperacillin Sod/Tazobactam 100 mls @ 200 mls/hr 03/08/21 00:00 03/09/21 12:21 Sod 4.5 gm/ Sodium Chloride IVPB 200 mls/hr Q6HR BRYCE Administration Dextrose 1,000 mls @ 100 mls/hr 03/07/21 20:35 Dextrose 5% 1,000 Ml IVPB PRN PRN Hypoglycemia Protocol Sodium Chloride 1,000 mls @ 50 mls/hr 03/08/21 15:50 03/09/21 12:21 Normal Saline Iv IV CONT
--- NOTE | 2021-03-09 16:50 | PDONCCN ---
HPI - Date of Consult Date/Time: 03/09/21 16:50 Requesting Physician: Del Pabon MD Primary Care Provider: Renae Wyman, - Consult Narrative Reason for consult: Oligodendroglioma Narrative: Linette Vásquez is a 76 year old female with diagnosis of Teri good dinner glioma in 2010 status post 99% resection of the tumor at [facility]. She subsequently received radiation therapy treatment time 36. She did not receive any chemotherapy. According to patient power of state attorney Julia and uncle patient did well until recent admission to the hospital. She did not have any proper oncology care and management. She had several CT scan and MRIs performed while she admitted to the hospital. Now patient came into the hospital with reported seizure activity. CT head done on March 07 showed large infiltrative calcified mass consistent with anaplastic oligodendroglioma mild increase in size since December. Patient is not responsive and not able to answer any of my questions. Review of Systems - Review of Systems All systems reviewed & are unremarkable except as noted in HPI and [facility] Medical History: Medical History (Last Reviewed 03/08/21 @ 14:58 by Magdy Morley MD) Chronic anemia Chronic GERD Chronic indwelling Hodge catheter Dementia Dysphagia Peg tube in-situ. Elevated transaminase level Appears chronic. 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 Surgical History: Surgical History (Last Reviewed 03/08/21 @ 14:58 by Magdy Morley MD) Gastrointestinal tube in situ Onset Date: ~02/2020 History of craniotomy Right frontal lobe craniotomy with resection of oligodendroglioma. Family History: Family History (Last Reviewed 03/08/21 @ 14:58 by Magdy Morley MD) Mother Diabetes mellitus Father Lung cancer Sibling Breast cancer she has Sibling Breast cancer Father Lung cancer - Social History Social History: Social History (Last Reviewed 03/08/21 @ 14:58 by Magdy Morley MD) Others: Spiritual care concerns: No Smoking Status: Smoking status: Unknown if ever smoked Meds Home Medications Medication Instructions Recorded Confirmed Type ascorbic acid (vitamin C) [Vitamin 500 mg FEEDING TUBE DAILY 03/16/20 03/08/21 History C] cholecalciferol (vitamin D3) 1,250 mcg FEEDING TUBE WEEKLY 03/17/20 03/08/21 History lactulose 15 ml FEEDING TUBE Q8H PRN 03/17/20 03/08/21 History albuterol sulfate 2.5 mg INHALATION Q6HRT PRN 06/11/20 03/08/21 History Fleet Enema 118 ml RECTAL DAILY PRN 12/26/20 03/08/21 History umeclidinium-vilanterol 1 inh INHALATION DAILY PRN 12/26/20 03/08/21 History bisacodyl 10 mg RECTAL DAILY PRN 01/01/21 03/08/21 History d-mannose 500 mg DAILY 01/01/21 03/08/21 History diclofenac sodium 1 applic TOPICAL BID PRN 01/01/21 03/08/21 History magnesium citrate [Citroma] 296 ml FEEDING TUBE DAILY PRN 01/01/21 03/08/21 History magnesium hydroxide 30 ml FEEDING TUBE HS PRN 01/01/21 03/08/21 History ondansetron HCl 4 mg FEEDING TUBE Q6H PRN 01/01/21 03/08/21 History Basaglar KwikPen U-100 Insulin 20 unit SUBCUT HS 01/26/21 03/08/21 History Saccharomyces boulardii [Florastor] 250 mg FEEDING TUBE BID 01/26/21 03/08/21 History omeprazole 20 mg FEEDING TUBE BID 01/26/21 03/08/21 History acetaminophen [Mapap 650 mg FEEDING TUBE Q8H PRN 02/28/21 03/08/21 History (acetaminophen)] baclofen 5 mg FEEDING TUBE HS 02/28/21 03/08/21 History cetirizine [Allergy Relief 10 mg FEEDING TUBE DAILY 02/28/21 03/08/21 History (cetirizine)] chlorhexidine gluconate [Peridex] 15 ml BUCCAL BID 02/28/21 03/08/21 History insulin aspart U-100 [Novolog 1 sliding scale dose SUBCUT 02/28/21 03/08/21 History Flexpen U-100 Insulin] USEASDIRECTD Allergies Allergy/AdvReac Type Severity
[2021-03-09 17:39] LABS: Glucose Point of Care 202 mg/dl (65-105)
--- NOTE | 2021-03-09 20:29 | PM.IMPN ---
Progress Note: A&P Assessment and Plan (1) Seizure: Code(s): R56.9 - Unspecified convulsions Status: Acute (2) Brain mass: Code(s): G93.89 - Other specified disorders of brain Status: Acute (3) Chronic anemia: Code(s): D64.9 - Anemia, unspecified Status: Acute Assessment and Plan: Hemoglobin and hematocrit are stable on review of previous labs. (4) Leukocytosis: Code(s): D72.829 - Elevated white blood cell count, unspecified Status: Acute Assessment and Plan: May be related to seizure activity. I have not been able to find any evidence to suggest underlying infection. She was started on Zosyn in the emergency department for possible aspiration while in the emergency department I will continue with that for now. (5) Brain tumor: Code(s): D49.6 - Neoplasm of unspecified behavior of brain Status: Acute Assessment and Plan: Slight increase in brain tumor when compared to imaging 2 months ago. Family members are requesting Oncology consult thus will ask Dr. Blanton to see her. (6) Seizure: Code(s): R56.9 - Unspecified convulsions Status: Acute Assessment and Plan: Patient reportedly has a history of seizures and brain CT does show a mild increase in the size of a large infiltrative calcified mass. There was no mention of surrounding vasogenic edema. She has been loaded with Keppra and will be started on [address] Morley recommendations. She has also been started on dexamethasone 4 mg q.6 hours. Initiate seizure precautions. 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 Initiate sliding scale insulin, Accu-Cheks, and hypoglycemic protocol. (8) Dementia: Code(s): F03.90 - Unspecified dementia without behavioral disturbance Status: Acute (9) Dysphagia: Code(s): R13.10 - Dysphagia, unspecified Status: Acute Additional Plan 03/08/21 pending consult by oncology kepp per neuro infiltrating calcified brain mass on imaging unclear what interventions are availble to pt at this time will follow up on Oncology's recs later today Home meds started Feeds started Continue current care 03/09/21 elevated WBC on dexamethasone ISS and basal BG near goal cont zosyn consult pulm dc keppra seizure precautions cont home meds IVFs PEG feeds Subjective Date/time seen: 03/09/21 20:29 I have spoken with the POA and patient's brother who states that he has upon critical care physician. They are requesting that the patient be seen by multiple services including Pulmonary Critical Care for possible aspiration pneumonia. I advised him that the patient has been admitted because of seizure activity they dispute this stating that the patient has had a cerebral mass for many years and even though she has a prior history of seizure activity previously on antiseizure medications she does not have seizures and does not require antiseizure medication at this time. I advised them that the patient is not hypoxic is not requiring any oxygen is not tachycardic does not seem to be in any distress respiratory distress and that I am not sure why they are requesting a pulmonary critical care consultation at this time but that I will consult prior to discharge. They also raise concern about the use of Keppra and request it to be stopped as it can make pt hypersomnolent. Additionally, they report pt was previously on Midodrine but they were able to have her weaned off of this medication. They do agree to PEG feeds but request pt at 45% instead of 30% at times feeds running. Family also requests other tests and treatments such as Vit D level. They are advised that I will defer this to pts outpt primary care physician. Exam Na
[2021-03-09] MEDS: BACLOFEN 5 MG TABLET FEED TUBE (22:28)
[2021-03-09] MEDS: INSULIN GLARGINE (*BKC) 100 UNITS/ML 20 UNITS SUB-Q (22:29)
[2021-03-09] MEDS: CHLORHEXIDINE GLUCONATE 0.12% ORAL RINSE 473 ML BTL (*BKC) 15 ML SWISH/SPIT (22:29)
[2021-03-09 23:02] LABS: Glucose Point of Care 227 mg/dl (65-105)
[2021-03-10] VITALS (9 sets, daily range): BP systolic 91–111; BP diastolic 39–56; PULSE 43–60; RESP 16–18; TEMP 36.8–37.2; O2SAT 97–100
[2021-03-10] MEDS: DEXAMETHASONE SOD PHOS INJ 4 MG/ML VIAL IV PUSH ×4 (00:45→17:17)
[2021-03-10] MEDS: PIPERACILLIN/TAZOBACTAM SOD 4.5 GM in SODIUM CHLORIDE 0.9% IV 100 ML 200 ML IVPB ×4 (00:46→17:13)
[2021-03-10] MEDS: INSULIN ASPART (*BKC) 100 UNITS/ML SUB-Q ×4 (00:46→21:14)
[2021-03-10 06:55] LABS: Glucose Point of Care 218 mg/dl (65-105)
[2021-03-10 07:12] LABS: Glucose Point of Care 193 mg/dl (65-105)
[2021-03-10] MEDS: LORATADINE 10 MG TABLET FEED TUBE (09:05)
[2021-03-10] MEDS: LANSOPRAZOLE ORAL SUSP 30 MG/10 ML ORAL.SUSP FEED TUBE (09:05)
[2021-03-10] MEDS: ASCORBIC ACID 500 MG TABLET FEED TUBE (09:05)
[2021-03-10] MEDS: CHLORHEXIDINE GLUCONATE 0.12% ORAL RINSE 473 ML BTL (*BKC) 15 ML SWISH/SPIT ×2 (09:06→21:28)
[2021-03-10] MEDS: SACCHAROMYCES BOULARDII 250 MG CAPSULE FEED TUBE ×2 (09:06→17:17)
--- NOTE | 2021-03-10 12:06 | PM.CNPUL ---
Assessment and Plan Assessment and plan (1) Dementia: Qualifiers: Dementia behavioral disturbance: without behavioral disturbance Dementia type: unspecified type Qualified Code(s): F03.90 - Unspecified dementia without behavioral disturbance Code(s): F03.90 - Unspecified dementia without behavioral disturbance Status: Acute (2) Brain mass: Code(s): G93.89 - Other specified disorders of brain Status: Acute (3) Seizure: Code(s): R56.9 - Unspecified convulsions Status: Acute (4) Aspiration pneumonia: Qualifiers: Aspiration pneumonia type: unspecified Laterality: right Lung location: lower lobe of lung Qualified Code(s): J69.0 - Pneumonitis due to inhalation of food and vomit Code(s): J69.0 - Pneumonitis due to inhalation of food and vomit Status: Acute Assessment and Plan: 76-year-old female nonverbal with a history of dementia, Hx of brain tumor, admitted following [place] episode of seizure [place]. Patient was recently hospitalized for UTI. Chest imaging studies have shown very small subsegmental atelectasis right lower lobe and a tiny pleural effusion. In view of history of seizures, aspiration pneumonitis is likely in this case. Patient has been on Zosyn IV. She has had leukocytosis of unknown etiology. Of note the patient had leukocytosis days before admitted into the hospital with seizures. She is in no respiratory distress, has a respiratory rate approximately 18 per minute, and O2 saturation of 100% without significant tachypnea, and a relatively low serum bicarbonate level on last testing yesterday. Patient does not look septic and I think she is on the right antibiotic for possible aspiration pneumonia. I would screen the patient for MRSA, and repeat the CBC and BMP regarding low bicarbonate. Last bicarbonate was 22 which is not that low to suggest early lactic acidosis related to sepsis. I would monitor hemodynamic status and consider drawing blood cultures if patient develops tachypnea or low blood pressure. I would also check venous Doppler of lower extremities to exclude DVT. History of Present Illness History of Present Illness Consult date: 03/10/21 Chief complaint: Seizure,Brain Tumor,Aspiration Narrative: this 76-year-old female was admitted into the hospital 3 days ago after she had a seizure at the [facility]. This report is based on information obtained after reviewing the patient's medical records and talking to the patient's RN. Patient has history of anaplastic oligodendroglioma. The patient has history of dementia, dysphagia status post PEG tube, history of chronic indwelling Hodge catheter. She was recently hospitalized for about 5 days with acute renal failure and urinary tract infection. Reportedly, the patient had an episode of seizure and was brought into the emergency room. She was treated with Versed with improvement of seizure activity. In the emergency room she was started on Keppra. The chest x-ray taken on the day of admission showed no active cardiopulmonary disease. It is unclear whether the patient aspirated during the episode of seizures. Chest CT done yesterday showed a faint ground-glass opacity in the right lower lobe possibly subsegmental atelectasis. There was also a tiny pleural effusion. Laboratory studies have shown leukocytosis. Patient has been on antibiotic. Patient is nonverbal and no history could be obtained. She is currently on room air with saturation 100%. Review of Systems Review of Systems: ROS unobtainable: Yes unobtainable due to medical condition PMFSH Past Medical History Medical History Chronic anemia Chronic GERD Chronic indwelling Hodge catheter Dementia Dysphagia Peg tube in-situ. Elevated transaminase level Appears chronic. Gastroesophageal reflux disease History of kidney s
[2021-03-10 12:15] LABS: Glucose Point of Care 190 mg/dl (65-105)
[2021-03-10 12:56] LABS: Basophils Percent Auto 0.1 % (0.2-1.2); Hematocrit 32.7 % (37.0-47.0); Hemoglobin 9.9 g/dL (12.0-15.0); Immature Granulocyte Absolute 0.22 K/mm3 (0.00-0.031); Immature Granulocyte Percent A 1.7 % (0-0.5); Lymphocytes Absolute Auto 1.66 K/mm3 (0.9-3.2); Lymphocytes Percent Auto 12.8 % (18.3-44.2); Mean Corpuscular HGB Conc 30.3 g/dl (32-36); Mean Corpuscular Hemoglobin 26.1 pg (26-34); Mean Corpuscular Volume 86.1 fl (80-100); Monocytes Absolute Auto 0.6 K/mm3 (0.1-0.6); Monocytes Percent Auto 4.8 % (2.6-8.5); Neutrophils Absolute Auto 10.4 K/mm3 (1.3-6.7); Neutrophils Percent Auto 80.6 % (45.5-73.1); Platelet Count Result 284 k/mm3 (150-375); Red Cell Distribution Width 16.6 % (11.5-14.5)
[2021-03-10 13:05] LABS: Lactic Acid Reflex 2.9 mmol/L (0.7-2.1)
[2021-03-10 13:07] LABS: Anion Gap 7 mmol/L (8-16); Blood Urea Nitrogen 27 mg/dL (7-17); Calcium 8.3 mg/dL (8.4-10.2); Carbon Dioxide 20 mmol/L (22-30); Chloride 115 mmol/L (98-107); Estimated CRCL calculation 64 ml/min; Estimated Glomerular Filt Rate > 60; Glucose 207 mg/dL (65-110); Potassium 3.9 mmol/L (3.4-5.0); Sodium 142 mmol/L (137-145)
[2021-03-10] MEDS: SODIUM CHLORIDE 0.9% IV 1,000 ML 50 ML IV CONT (13:08)
[2021-03-10 15:53] LABS: Reflex Lactic Acid Yes or No Add Lactic
[2021-03-10 16:54] LABS: Lactic Acid 3.3 mmol/L (0.7-2.1)
--- NOTE | 2021-03-10 18:07 | PM.CNCAR ---
Assessment and Plan Assessment and plan (1) Bradycardia: Code(s): R00.1 - Bradycardia, unspecified Status: Acute Assessment and Plan: Recent onset of bradycardia of uncertain etiology. Not on any rate controlling medications and bradycardia does not appear to be a side effect of any of her current medications. Perhaps related to elevated intracranial pressure? Any case, the bradycardia is at the low end of normal range and she appears asymptomatic with no failure, so there is no need for any acute therapy. There is no AV block which would be more of a concern. Check EKG Echo PRN atropine for severe bradycardia Continue to follow on telemetry (2) Seizure: Code(s): R56.9 - Unspecified convulsions Status: Acute (3) Brain tumor: Code(s): D49.6 - Neoplasm of unspecified behavior of brain Status: Acute History of Present Illness History of Present Illness Consult date/time: 03/10/21 18:07 Reason For Visit: Seizure,Brain Tumor,Aspiration Narrative: Linette Vásquez is a 76-year-old white whom we were asked to see at the request of the hospitalist for advice and opinion regarding her bradycardia in consultation. She lives at a care home and was admitted on March 07 after a witnessed seizure which started off as a focal seizure but then became a generalized seizure. 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 She has some dementia, and has an indwelling Hodge as well as a PEG. She is being treated for possible aspiration pneumonia as well. She is a modified code, no CPR. On admission her heart rate was in the 70-80s, but today she was noted to have bradycardia with heart rates generally in the 50s but occasionally dropping down to 45-46 beats per minute. She is not on any heart rate controlling medications. Telemetry shows sinus bradycardia, with normal intervals but no AV block or pauses. Narrow complex QRS. She has a history diabetes but no history of any heart disease. Review of Systems Review of Systems: History and review of systems with the change obtained from physician and EMR ROS unobtainable: Yes unobtainable due to mental status ENT: Denies epistaxis Gastrointestinal: Gastrointestinal: Denies hematochezia Genitourinary: Genitourinary: Denies hematuria Neurologic: Reports confusion Psychiatric: Psychiatric: Reports behavioral changes and Reports confusion PMF Past Medical History Medical History Chronic anemia Chronic GERD Chronic indwelling Hodge catheter Dementia Dysphagia Peg tube in-situ. Elevated transaminase level Appears chronic. 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 Surgical History Surgical History Gastrointestinal tube in situ (~02/2020) History of craniotomy Right frontal lobe craniotomy with resection of oligodendroglioma. Family History Family History Mother Diabetes mellitus Father Lung cancer Sibling Breast cancer she has Sibling Breast cancer Father Lung cancer Social History Social History Social History: The patient is a resident at a local care home. She is a former smoker. No alcohol or illicit substance use. 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 Code status: Modified code, no CPR. Smoking status: Unknown if ever smoked Spiritual care concerns: No Meds Home Medications and Allergies Home Medications Medication Instructions Recorded Confirmed Type as
--- NOTE | 2021-03-10 18:42 | PM.IMPN ---
Progress Note: A&P Assessment and Plan (1) Seizure: Code(s): R56.9 - Unspecified convulsions Status: Acute (2) Brain mass: Code(s): G93.89 - Other specified disorders of brain Status: Acute (3) Chronic anemia: Code(s): D64.9 - Anemia, unspecified Status: Acute Assessment and Plan: Hemoglobin and hematocrit are stable on review of previous labs. (4) Leukocytosis: Code(s): D72.829 - Elevated white blood cell count, unspecified Status: Acute Assessment and Plan: May be related to seizure activity. I have not been able to find any evidence to suggest underlying infection. She was started on Zosyn in the emergency department for possible aspiration while in the emergency department I will continue with that for now. (5) Brain tumor: Code(s): D49.6 - Neoplasm of unspecified behavior of brain Status: Acute Assessment and Plan: Slight increase in brain tumor when compared to imaging 2 months ago. Family members are requesting Oncology consult thus will ask Dr. Blanton to see her. 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 Initiate sliding scale insulin, Accu-Cheks, and hypoglycemic protocol. (7) Dementia: Qualifiers: Dementia behavioral disturbance: without behavioral disturbance Dementia type: unspecified type Qualified Code(s): F03.90 - Unspecified dementia without behavioral disturbance Code(s): F03.90 - Unspecified dementia without behavioral disturbance Status: Acute (8) Dysphagia: Code(s): R13.10 - Dysphagia, unspecified Status: Acute Additional Plan 03/08/21 pending consult by oncology gretchen per neuro infiltrating calcified brain mass on imaging unclear what interventions are availble to pt at this time will follow up on Oncology's recs later today Home meds started Feeds started Continue current care 03/09/21 elevated WBC on dexamethasone ISS and basal BG near goal cont zosyn consult pulm dc keppra seizure precautions cont home meds IVFs PEG feeds 03/10/2021 Elevated wbc's on dexamethasone Continue current low glucose control On Zosyn vancomycin added NS ordered lasix x 1 low dose Phone consultation appreciated Continue seizure precautions Unclear if patient has some active smoldering infection blood cultures, UA, CT abdomen pelvis ordered, CT chest reviewed Patient seen by Cardiology recommendations appreciated Continue current care Anticipate discharge Friday if workup is negative the patient remains stable Subjective Date/time seen: 03/10/21 18:42 Patient still is not tracking with her eyes unclear if this is her baseline. Tolerating PEG tube will hold and sent patient for CT scan of abdomen pelvis. Exam Narrative: General: Chronically ill-appearing elderly female lying in bed Weight: 64.5kg. BMI: 23.0. HEENT: Sclerae anicteric. Conjunctiva mildly injected. Neck: Supple No obvious JVD, bruits, adenopathy, or thyromegaly. Respiratory: No acute respiratory distress Lung sounds are diminished due to poor effort. Right-sided crackles Cardiovascular: Decreased rate regular rhythm with S1-S2. Gastrointestinal: Abdomen is soft, nontender, and nondistended with positive bowel sounds. G-tube site is clean, dry, and intact. Skin: Warm and dry. Generalized pallor. Extremities: No cyanosis, clubbing, or edema. Atrophy of lower extremities Neurological: Eyes open does not focus on anything in particular and does not track does not deviate eyes to left of midline No obvious facial asymmetry. She is nonverbal Psychiatric: Unable to assess given clinical condition. Objective Data Vital Signs Vital Signs: Vital Signs - 24 hr 03/09/21 21:59 03/10/21 00:00 03/10/21
[2021-03-10 19:48] LABS: Add Urine Microscopic? YES; Appearance Urine Clear (Clear); Bilirubin Urine Negative (Negative); Blood Urine Negative (Negative); Color Urine Yellow (Yellow); Glucose Urine UA Negative (Negative); Ketones Urine Negative (Negative); Leukocyte Esterase Ur Negative LEU/UL (NEGATIVE); Nitrate Urine Negative (Negative); Protein Urine Negative (Negative); Specific Grav Ur 1.019 (1.001-1.035); Squamous Epithelial Cell Urine Few /hpf (Few); Urobilinogen Urine Negative mg/dL (<2.0)
[2021-03-10 20:00] LABS: Glucose Point of Care 175 mg/dl (65-105)
[2021-03-10] MEDS: ERTAPENEM 1 GM/NS 50 ML 1 GM/50 ML BAG IVPB (21:04)
[2021-03-10] MEDS: BACLOFEN 5 MG TABLET FEED TUBE (21:13)
[2021-03-10] MEDS: INSULIN GLARGINE (*BKC) 100 UNITS/ML 20 UNITS SUB-Q (21:33)
--- NOTE | 2021-03-10 22:33 | ECG_ITS ---
Measurements Intervals [place] Rate: 43 P: 48 ND: 167 QRS: -33 QRSD: 79 T: 34 QT: 435 QTc: 368 Interpretive Statements SINUS OR ECTOPIC ATRIAL BRADYCARDIA LOW QRS VOLTAGE- DIFFUSE LEADS CONSIDER INFERIOR INFARCT, AGE INDETERMINATE BASELINE ARTIFACT- I, II, AVR, AVL, AVF, V1-V6 ABNORMAL ECG Electronically Signed On 03-11-2021 8:00:33 CLERICAL OFFICE by Bryon Reyes D.O.
--- NOTE | 2021-03-10 22:47 | P.PNCROSS_ITS ---
Event Note Event Note Event Note: I spoke with the power of deputy prosecuting attorney who called me and asked me multiple questions about the patient. They are concerned about her heart rate. the patient does have atropine ordered p.r.n.. The patient appears to be resting quietly. I explained that the patient is on the monitor and that we will get an EKG now. The power deputy prosecuting attorney is wanting to stop the tube feedings and lay the patient flat due to the soft blood pressure. I explained that the patient is getting IV fluids at this time. I will give a dose of atropine to see how the patient reacts. I explained that the venous Dopplers are not stat and I asked the warehouse shipping associate if we could call in ultrasound to do stat Dopplers. However per protocol this does not include stat venous Dopplers. The power deputy prosecuting attorney stated that she did not want the patient have any more CT scans. We discussed the patient's condition and her quality of life. The patient has a brain tumor and is seeing Dr. Blanton the oncologist. The family does not believe that the brain tumor is getting any bigger. So we discussed further alma ting. I did order an MRI without contrast is the patient has a contrast allergy. Also I added urine cultures although the patient does not appear to have UTI. I explained that the blood cultures have not resulted yet. The patient is on broad-spectrum antibiotics. The family has been updated on the patient's condition. I recommended that they call back tomorrow for updates.
[2021-03-11] VITALS (8 sets, daily range): BP systolic 121–143; BP diastolic 46–59; PULSE 42–77; RESP 16–20; TEMP 36.4–36.9; O2SAT 93–98
[2021-03-11 00:54] LABS: D Dimer 0.43 ug/mL (<0.48)
[2021-03-11] MEDS: DEXAMETHASONE SOD PHOS INJ 4 MG/ML VIAL IV PUSH ×4 (01:15→18:01)
[2021-03-11] MEDS: LANSOPRAZOLE ORAL SUSP 30 MG/10 ML ORAL.SUSP FEED TUBE (06:22)
[2021-03-11 06:23] LABS: Glucose Point of Care 143 mg/dl (65-105)
[2021-03-11 06:23] LABS: Glucose Point of Care 143 mg/dl (65-105)
[2021-03-11 06:23] LABS: Glucose Point of Care 193 mg/dl (65-105)
--- NOTE | 2021-03-11 07:00 | ECG_ITS ---
Measurements Intervals [place] Rate: 44 P: 51 CA: 159 QRS: -16 QRSD: 82 T: 40 QT: 452 QTc: 390 Interpretive Statements SINUS BRADYCARDIA LOW QRS VOLTAGE- DIFFUSE LEADS CONSIDER INFERIOR INFARCT, AGE INDETERMINATE BASELINE WANDER- I, II, AVR, AVL, AVF ABNORMAL ECG Electronically Signed On 03-11-2021 17:19:32 MUSICAL INSTRUMENT MECHANIC by Bryon Reyes D.O.
--- NOTE | 2021-03-11 09:01 | PM.IMPN ---
Progress Note: A&P Assessment and Plan (1) Seizure: Code(s): R56.9 - Unspecified convulsions Status: Acute (2) Brain mass: Code(s): G93.89 - Other specified disorders of brain Status: Acute (3) Chronic anemia: Code(s): D64.9 - Anemia, unspecified Status: Acute Assessment and Plan: Hemoglobin and hematocrit are stable on review of previous labs. (4) Leukocytosis: Qualifiers: Leukocytosis type: unspecified Qualified Code(s): D72.829 - Elevated white blood cell count, unspecified Code(s): D72.829 - Elevated white blood cell count, unspecified Status: Acute Assessment and Plan: May be related to seizure activity. I have not been able to find any evidence to suggest underlying infection. She was started on Zosyn in the emergency department for possible aspiration while in the emergency department I will continue with that for now. (5) Brain tumor: Code(s): D49.6 - Neoplasm of unspecified behavior of brain Status: Acute Assessment and Plan: Slight increase in brain tumor when compared to imaging 2 months ago. Family members are requesting Oncology consult thus will ask Dr. Blanton to see her. 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 Initiate sliding scale insulin, Accu-Cheks, and hypoglycemic protocol. (7) Dementia: Qualifiers: Dementia type: unspecified type Dementia behavioral disturbance: without behavioral disturbance Qualified Code(s): F03.90 - Unspecified dementia without behavioral disturbance Code(s): F03.90 - Unspecified dementia without behavioral disturbance Status: Acute (8) Dysphagia: Code(s): R13.10 - Dysphagia, unspecified Status: Acute Additional Plan 03/08/21 pending consult by oncology gretchen per neuro infiltrating calcified brain mass on imaging unclear what interventions are availble to pt at this time will follow up on Oncology's recs later today Home meds started Feeds started Continue current care 03/09/21 elevated WBC on dexamethasone ISS and basal BG near goal cont zosyn consult pulm dc gretchen seizure precautions cont home meds IVFs PEG feeds 03/10/2021 Elevated wbc's on dexamethasone Continue current low glucose control On Zosyn vancomycin added NS ordered lasix x 1 low dose Phone consultation appreciated Continue seizure precautions Unclear if patient has some active smoldering infection blood cultures, UA, CT abdomen pelvis ordered, CT chest reviewed Patient seen by Cardiology recommendations appreciated Continue current care Anticipate discharge Friday if workup is negative the patient remains stable 03/11/21 cont current care pulm and card recs appreciated cont seizure precautions possible dc tomorrow if workup remains negative pt would benefit from palliative care services and f/u w outpt PCP Subjective Date/time seen: 03/11/21 09:01 Patient remains nonverbal, does not follow or track with her eyes, does not move her lower extremities, moves her left upper extremity without purpose. long discussion with the family today. I have advised them that another physician will assume Linette's care tomorrow. Family has refused to have CT of the abdomen performed. I have expressed to them that this was looking for possible source of infection since her lungs and urine and blood cultures to date do not seem to be a source and she is nonverbal and unable to communicate with me if she actually has any abdominal pain. They still decline the CT of her abdomen. Her POA and/or daughter are requesting to know why there is an inferior infarct on EKG that is not being addressed. I have advised them that this has been present for approximately 1
[2021-03-11 09:10] LABS: Basophils Percent Auto 0.1 % (0.2-1.2); Hematocrit 33.3 % (37.0-47.0); Hemoglobin 10.1 g/dL (12.0-15.0); Immature Granulocyte Absolute 0.19 K/mm3 (0.00-0.031); Immature Granulocyte Percent A 1.3 % (0-0.5); Lymphocytes Percent Auto 12.2 % (18.3-44.2); Mean Corpuscular HGB Conc 30.3 g/dl (32-36); Mean Corpuscular Hemoglobin 25.6 pg (26-34); Mean Corpuscular Volume 84.3 fl (80-100); Mean Platelet Volume 10.1 fl (7.4-10.4); Monocytes Absolute Auto 0.5 K/mm3 (0.1-0.6); Neutrophils Absolute Auto 12.3 K/mm3 (1.3-6.7); Neutrophils Percent Auto 83.4 % (45.5-73.1); Platelet Count Result 302 k/mm3 (150-375); Red Blood Count 3.95 M/mm3 (4.2-5.4); Red Cell Distribution Width 16.6 % (11.5-14.5); White Blood Count 14.8 K/mm3 (4.5-10.0)
[2021-03-11] MEDS: LORATADINE 10 MG TABLET FEED TUBE (10:31)
[2021-03-11] MEDS: ASCORBIC ACID 500 MG TABLET FEED TUBE (10:31)
[2021-03-11] MEDS: SACCHAROMYCES BOULARDII 250 MG CAPSULE FEED TUBE ×2 (10:31→18:01)
[2021-03-11 10:54] LABS: Alanine Aminotransferase 22 U/L (4-35); Alkaline Phosphatase 51 U/L (38-126); Anion Gap 7 mmol/L (8-16); Aspartate Amino Transferase 17 U/L (14-36); Bilirubin,Total 0.1 mg/dL (0.2-1.3); Blood Urea Nitrogen 23 mg/dL (7-17); CRP < 0.5 mg/dL (<1.0); Calcium 8.5 mg/dL (8.4-10.2); Carbon Dioxide 20 mmol/L (22-30); Chloride 112 mmol/L (98-107); Estimated CRCL calculation 76 ml/min; Estimated Glomerular Filt Rate > 60; Glucose 175 mg/dL (65-110); Lipase 87 U/L (23-300); Magnesium 2.1 mg/dL (1.6-2.3); Sodium 139 mmol/L (137-145)
[2021-03-11 12:31] LABS: Glucose Point of Care 159 mg/dl (65-105)
[2021-03-11 12:52] LABS: Lactic Acid Reflex 2.4 mmol/L (0.7-2.1)
[2021-03-11] MEDS: SODIUM CHLORIDE 0.9% IV 1,000 ML 50 ML IV CONT (13:24)
[2021-03-11] MEDS: CHLORHEXIDINE GLUCONATE 0.12% ORAL RINSE 473 ML BTL (*BKC) 15 ML SWISH/SPIT ×2 (13:25→20:36)
--- NOTE | 2021-03-11 13:43 | PM.PNPUL ---
Progress Note: A&P Assessment and Plan (1) Aspiration pneumonia: Qualifiers: Aspiration pneumonia type: unspecified Laterality: right Lung location: lower lobe of lung Qualified Code(s): J69.0 - Pneumonitis due to inhalation of food and vomit Code(s): J69.0 - Pneumonitis due to inhalation of food and vomit Status: Acute Assessment and Plan: 76-year-old female with history of brain mass, dementia, admitted following episode of seizures. Unclear whether she has aspirated. Chest imaging studies showed possible left lower lobe infiltrate possible subsegmental atelectasis and tiny pleural effusion. The patient had elevated lactic acid borderline blood pressure yesterday. She has been on IV fluids as well as broad-spectrum antibiotics for possible sepsis. Blood pressure better today. Respiratory status essentially unchanged since yesterday. Urine analysis unremarkable source of infection unclear at this point. Continue with current regimen of antibiotics IV fluids, monitor hemodynamic status and repeat chest x-ray. (2) Seizure: Code(s): R56.9 - Unspecified convulsions Status: Acute (3) Leukocytosis: Qualifiers: Leukocytosis type: unspecified Qualified Code(s): D72.829 - Elevated white blood cell count, unspecified Code(s): D72.829 - Elevated white blood cell count, unspecified Status: Acute (4) Brain tumor: Code(s): D49.6 - Neoplasm of unspecified behavior of brain Status: Acute (5) Dementia: Qualifiers: Dementia type: unspecified type Dementia behavioral disturbance: without behavioral disturbance Qualified Code(s): F03.90 - Unspecified dementia without behavioral disturbance Code(s): F03.90 - Unspecified dementia without behavioral disturbance Status: Acute (6) Sepsis: Qualifiers: Sepsis type: sepsis due to unspecified organism Sepsis acute organ dysfunction status: with acute organ dysfunction Severe sepsis acute organ dysfunction type: acute respiratory failure Acute respiratory failure type: unspecified Severe sepsis shock status: with septic shock Qualified Code(s): A41.9 - Sepsis, unspecified organism; R65.21 - Severe sepsis with septic shock; J96.00 - Acute respiratory failure, unspecified whether with hypoxia or hypercapnia Code(s): A41.9 - Sepsis, unspecified organism Status: Acute Subjective Date/time seen: 03/11/21 13:43 no significant change in clinical condition. The patient is nonverbal. She remains on room air. She does not appear to be short of breath. On broad-spectrum antibiotics. Also on IV fluids for borderline low blood pressure and possibly early sepsis. Leukocytosis persists but lactic acid trending down. Urinalysis unremarkable. Review of Systems Review of Systems: ROS unobtainable: Yes unobtainable due to medical condition Exam Narrative: GENERAL APPEARANCE: Elderly female laying in bed nonverbal, moving upper extremities more so than lower extremities, keeping eyes open. She is not in any respiratory distress. SKIN: Inspection of the skin reveals no rashes, ulcerations or petechiae. HEENT: Sclerae anicteric and conjunctivae pink and moist. Mouth not tested. NECK: Supple. There was no thyroid enlargement. No JVD CHEST: Normal AP diameter and normal contour without any kyphoscoliosis. LUNGS: Auscultation of the lungs revealed normal breath sounds without any other adventitious sounds or rubs. CARDIAC: There was a regular rate and rhythm without any murmurs, gallops, rubs. ABDOMEN: Soft with normal bowel sounds. There was no organomegaly. PEG in place. LYMPH NODES: No lymphadenopathy was appreciated in the neck. EXTREMITIES: No cyanosis, clubbing or edema. NEUROLOGIC: noncommunicative, keeps eyes open, moving upper extremities. Objective Data Vital Signs Vital Signs: Vital Signs - 24 hr 03/10/21 14:00 03/10/21 16:00 03/10/21 20:00 Temperature 36.
[2021-03-11 15:41] LABS: Reflex Lactic Acid Yes or No Add Lactic
[2021-03-11 16:34] LABS: Lactic Acid 2.8 mmol/L (0.7-2.1)
--- NOTE | 2021-03-11 16:59 | PM.PNCARD ---
Progress Note: A&P Assessment and Plan (1) Bradycardia: Code(s): R00.1 - Bradycardia, unspecified Status: Acute Assessment and Plan: Recent onset of bradycardia of uncertain etiology. Not on any rate controlling medications and bradycardia does not appear to be a side effect of any of her current medications. Perhaps related to elevated intracranial pressure? -- Though the radiologist did not see any hydrocephalus on CT of the head. Any case, the bradycardia is at the low end of normal range and is adequate for this level of activity. It is common And no cause for alarm when a person's heart rate to dip into the upper 30s while asleep. She appears asymptomatic with no CHF, so there is no need for any acute therapy. There is no AV block or pauses which would be more of a concern. Echo Continue to follow on telemetry Thus far no indication for permanent pacemaker implant. (2) Seizure: Code(s): R56.9 - Unspecified convulsions Status: Acute Assessment and Plan: Reason for admission with seizure. (3) Brain tumor: Code(s): D49.6 - Neoplasm of unspecified behavior of brain Status: Acute Assessment and Plan: Longstanding brain tumor, slight enlargement on recent CT scan. Subjective Date/time seen: 03/11/21 16:59 Interval history: FU for Recent onset of bradycardia of uncertain etiology. Admitted for seizure and possible aspiration pneumonia. 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 Date of service 03/11/2021: Uneventful day. Telemetry shows heart rate generally runs in the mid 40s-50 BPM. Last night it would dip to 38-39 beats per minute occasionally. No pauses or AV block seen. Remains on tube feedings. Review of Systems Review of Systems: ROS unobtainable: Yes unobtainable due to medical condition and unobtainable due to mental status Exam Narrative: Older lady lying in bed, Sleeping, breathing comfortably. Const: General: comfortable, no acute distress and confusion Orientation/consciousness: confusion HENMT: General nose exam: no epistaxis Mouth: Yes moist mucous membranes Eyes: Sclera: sclerae normal Neck: Neck: supple Thyroid: thyroid normal Resp: Effort & Inspection: normal respiratory effort Auscultation: clear to auscultation bilaterally Cardio: Rate: regular rate Rhythm: regular rhythm Heart sounds: no murmurs GI: Inspection: non-distended Skin: General skin exam: normal color and no rashes or lesions noted Neuro: General: confusion Cognition (Neuro): abnormal cognition Speech: No normal speech Extrem: General: no edema Other: Dorsalis pedis pulses are intact Psych: Mental Status: mental status grossly abnormal Affect: No normal affect Objective Data Vital Signs Vital Signs: Vital Signs - 24 hr 03/10/21 20:00 03/10/21 22:00 03/11/21 05:12 Temperature 98.9 F Pulse Rate 43 L 44 L 42 L Respiratory Rate 16 Blood Pressure 100/46 L Pulse Oximetry 97 03/11/21 05:51 03/11/21 08:00 03/11/21 12:00 Temperature 97.6 F Pulse Rate 45 L 48 L 46 L Respiratory Rate 18 Blood Pressure 121/46 L Pulse Oximetry 97 03/11/21 14:00 03/11/21 16:00 Temperature 98.5 F Pulse Rate 50 L 46 L Respiratory Rate 16 Blood Pressure 143/59 H Pulse Oximetry 98 Intake/Output Intake/Output: Intake & Output 03/08/21 03/09/21 03/10/21 03/11/21 23:59 23:59 23:59 23:59 Intake Total 400 1609 2150 1500 Balance 400 1609 2150 1500 Meds/Results Medications: Active Medications Generic Name Dose Route Start Last Admin Trade Name Freq PRN Reason Stop Dose Admin Acetaminophen 650 mg 03/08/21 18:56 Acetaminophen Elixir 325 Mg/10.15 Ml Udc FEED TUBE Q8H PRN Mild Pain (1-3) Albuterol 2.5 mg 03/08/21 18:56 Albuterol Sulfate
[2021-03-11] MEDS: ERTAPENEM 1 GM/NS 50 ML 1 GM/50 ML BAG IVPB (18:00)
[2021-03-11 18:30] LABS: Glucose Point of Care 156 mg/dl (65-105)
[2021-03-11] MEDS: BACLOFEN 5 MG TABLET FEED TUBE (20:35)
[2021-03-11] MEDS: INSULIN GLARGINE (*BKC) 100 UNITS/ML 20 UNITS SUB-Q (20:35)
[2021-03-11 21:55] LABS: Glucose Point of Care 178 mg/dl (65-105)
[2021-03-12] VITALS (9 sets, daily range): BP systolic 109–122; BP diastolic 46–56; PULSE 46–58; RESP 14–20; TEMP 35.7–36.6; O2SAT 95–97
--- NOTE | 2021-03-12 | ECHO_ITS ---
Patient Info Name: Linette Vásquez Age: 76 years : 1945 Gender: Female Ht: 66 in Wt: 142 lbs BSA: 1.74 m2 HR: 50 bpm BP: 109 / 46 mmHg Heart Rhythm: Sinus Rhythm Technical Quality: Fair Exam Date: 03/12/2021 12:05 PM Exam Location: [facility] Card Pulmonary Patient Status: Inpatient Admit Date: 03/08/2021 Staff Ordering Physician: Veronika Capone MD Deicer Tester: Maricruz Anderson RDCS Attending Provider: Jameel Pabon MD Referring Physician: Estelita LANDRY; Exam Type: CA echo doppler color flow Study Info Indications R00.1 - Bradycardia, unspecified Complete two-dimensional, color flow and Doppler transthoracic echocardiogram is performed. Summary 1. Complete two-dimensional, color flow and Doppler transthoracic echocardiogram is performed. 2. Left ventricular chamber dimension is normal. 3. Left ventricular systolic function is normal, estimated at 50-55%. 4. Left atrial chamber dimension is mildly enlarged. 5. There is mild mitral valve regurgitation. Left Ventricle Left ventricular chamber dimension is normal. Left ventricular systolic function is normal, estimated at 50-55%. The left ventricular diastolic function is normal. Right Ventricle Right ventricular chamber dimension is normal. Left Atria Left atrial chamber dimension is mildly enlarged. Right Atria Right atrial chamber dimension is normal. Aortic Valve The aortic valve is trileaflet. There is mild aortic valve sclerosis. Pulmonic Valve The pulmonic valve is normal. Mitral Valve The mitral valve has normal leaflets. There is mild mitral valve regurgitation. Tricuspid Valve The tricuspid valve leaflets are normal. Pericardium/Pleural The pericardium appears normal. Aorta The aortic root size at the sinus of Valsalva is normal. Left Ventricular Outflow Tract Name Value Normal LVOT 2D LVOT Diameter 2.0 cm LVOT Doppler LVOT Peak Gradient 2 mmHg LVOT Mean Gradient 1 mmHg LVOT VTI 16 cm LVOT VTI/AV VTI Ratio 0.8 LVOT Stroke Volume 50 ml Pulmonic Valve Name Value Normal RVOT Doppler RVOT Peak Gradient 2 mmHg PV Doppler PV Peak Gradient 3 mmHg Mitral Valve Name Value Normal MV Doppler MV Decel Bucks 578 cm/s2 MV PHT 49 ms MV Area (PHT) 4.5
[2021-03-12] MEDS: DEXAMETHASONE SOD PHOS INJ 4 MG/ML VIAL IV PUSH ×5 (01:17→23:10)
[2021-03-12] MEDS: INSULIN ASPART (*BKC) 100 UNITS/ML SUB-Q ×4 (01:19→23:12)
[2021-03-12 01:25] LABS: Glucose Point of Care 181 mg/dl (65-105)
[2021-03-12 06:21] LABS: Basophils Percent Auto 0.2 % (0.2-1.2); Hematocrit 33.7 % (37.0-47.0); Hemoglobin 10.1 g/dL (12.0-15.0); Immature Granulocyte Absolute 0.32 K/mm3 (0.00-0.031); Immature Granulocyte Percent A 2.2 % (0-0.5); Lymphocytes Absolute Auto 1.82 K/mm3 (0.9-3.2); Lymphocytes Percent Auto 12.4 % (18.3-44.2); Mean Corpuscular Hemoglobin 25.8 pg (26-34); Mean Corpuscular Volume 86.2 fl (80-100); Mean Platelet Volume 10.2 fl (7.4-10.4); Monocytes Absolute Auto 0.5 K/mm3 (0.1-0.6); Monocytes Percent Auto 3.6 % (2.6-8.5); Neutrophils Percent Auto 81.6 % (45.5-73.1); Platelet Count Result 292 k/mm3 (150-375); Red Blood Count 3.91 M/mm3 (4.2-5.4); Red Cell Distribution Width 16.5 % (11.5-14.5); White Blood Count 14.6 K/mm3 (4.5-10.0)
[2021-03-12 06:25] LABS: Glucose Point of Care 188 mg/dl (65-105)
[2021-03-12 06:30] LABS: Anion Gap 7 mmol/L (8-16); Blood Urea Nitrogen 20 mg/dL (7-17); Carbon Dioxide 17 mmol/L (22-30); Chloride 108 mmol/L (98-107); Estimated CRCL calculation 92 ml/min; Estimated Glomerular Filt Rate > 60; Glucose 252 mg/dL (65-110); Potassium 3.9 mmol/L (3.4-5.0); Sodium 132 mmol/L (137-145)
[2021-03-12] MEDS: LANSOPRAZOLE ORAL SUSP 30 MG/10 ML ORAL.SUSP FEED TUBE (06:52)
[2021-03-12 08:30] LABS: Alveolar/Arterial O2 Gradient 34.8 mmHg; Base Excess ABG -4.3 mEq/l (+/-2.0); Fractional Inspired Oxygen 21 %; HCO3 ABG 17.2 mEq/l (22.0-26.0); Oxygen Content ABG 14.8 %vol (16.0-22.0); Oxygen Saturation ABG 97.6 % (95.0-100.0); Oxyhemoglobin 95.6 % THb (90.0-100.0); PO2 ABG 88.6 mmHg (80.0-100.0); PO2 FiO2 Ratio Arterial Blood 4.22 %; Total Hemoglobin 10.9 g/dL (12.0-18.0)
[2021-03-12 08:31] LABS: Device ROOM AIR; Modified Allen's Test Pass; Site Drawn RIGHT RADIAL
--- NOTE | 2021-03-12 08:55 | PM.PNPUL ---
Progress Note: A&P Assessment and Plan (1) Aspiration pneumonia: Qualifiers: Aspiration pneumonia type: unspecified Laterality: right Lung location: lower lobe of lung Qualified Code(s): J69.0 - Pneumonitis due to inhalation of food and vomit Code(s): J69.0 - Pneumonitis due to inhalation of food and vomit Status: Acute Assessment and Plan: 76-year-old female with history of brain mass, dementia, admitted following episode of seizures. Unclear whether she has aspirated. Chest imaging studies showed possible left lower lobe infiltrate possible subsegmental atelectasis and tiny pleural effusion. The patient was found to have elevated lactic acid and because of borderline blood pressure has been on antibiotics for possible sepsis. She is currently hemodynamically stable. Arterial blood gases done today revealed chronic respiratory alkalosis which explains the low bicarbonate, mild hyperchloremia, and the mildly elevated lactic acid. the respiratory alkalosis is probably related to [employer] COORD[employer]ATOR tumor. Most recent chest x-ray showed no active lung disease. MRSA culture pending. Continue to monitor respiratory status, continue with current antibiotics, consider SCDs for DVT. prophylaxis. (2) Seizure: Code(s): R56.9 - Unspecified convulsions Status: Acute (3) Leukocytosis: Qualifiers: Leukocytosis type: unspecified Qualified Code(s): D72.829 - Elevated white blood cell count, unspecified Code(s): D72.829 - Elevated white blood cell count, unspecified Status: Acute (4) Brain tumor: Code(s): D49.6 - Neoplasm of unspecified behavior of brain Status: Acute (5) Dementia: Qualifiers: Dementia type: unspecified type Dementia behavioral disturbance: without behavioral disturbance Qualified Code(s): F03.90 - Unspecified dementia without behavioral disturbance Code(s): F03.90 - Unspecified dementia without behavioral disturbance Status: Acute (6) Sepsis: Qualifiers: Sepsis type: sepsis due to unspecified organism Sepsis acute organ dysfunction status: with acute organ dysfunction Severe sepsis acute organ dysfunction type: acute respiratory failure Acute respiratory failure type: unspecified Severe sepsis shock status: with septic shock Qualified Code(s): A41.9 - Sepsis, unspecified organism; R65.21 - Severe sepsis with septic shock; J96.00 - Acute respiratory failure, unspecified whether with hypoxia or hypercapnia Code(s): A41.9 - Sepsis, unspecified organism Status: Acute (7) Chronic respiratory alkalosis: Code(s): E87.3 - Alkalosis Status: Acute Subjective Date/time seen: 03/12/21 08:55 No significant change in respiratory status. Patient hemodynamically stable receiving antibiotics for possible infection. Remaining on room air. Chest x-ray done yesterday showed no active cardia respiratory disease. Review of Systems Review of Systems: ROS unobtainable: Yes unobtainable due to medical condition Exam Narrative: GENERAL APPEARANCE: Elderly female laying in bed nonverbal, moving upper extremities more so than lower extremities, keeping eyes open. She is not in any respiratory distress. SKIN: Inspection of the skin reveals no rashes, ulcerations or petechiae. HEENT: Sclerae anicteric and conjunctivae pink and moist. Mouth not tested. NECK: Supple. There was no thyroid enlargement. No JVD CHEST: Normal AP diameter and normal contour without any kyphoscoliosis. LUNGS: Auscultation of the lungs revealed Few rhonchi anteriorly no wheezing. CARDIAC: There was a regular rate and rhythm without any murmurs, gallops, rubs. ABDOMEN: Soft with normal bowel sounds. There was no organomegaly. PEG in place. LYMPH NODES: No lymphadenopathy was appreciated in the neck. EXTREMITIES: No cyanosis, clubbing or edema. NEUROLOGIC: noncommunicative, keeps eyes open, moving upper extremities. Objective Data
[2021-03-12 09:01] LABS: Lactic Acid Reflex 3.8 mmol/L (0.7-2.1)
--- NOTE | 2021-03-12 09:09 | PM.PNCARD ---
Progress Note: A&P Assessment and Plan (1) Bradycardia: Code(s): R00.1 - Bradycardia, unspecified Status: Acute Assessment and Plan: Recent onset of bradycardia of uncertain etiology. Not on any rate controlling medications and bradycardia does not appear to be a side effect of any of her current medications. Perhaps related to elevated intracranial pressure? -- Though the radiologist did not see any hydrocephalus on CT of the head. In any case, the bradycardia is at the low end of normal range and is adequate for this level of activity. It is common and no cause for alarm when a person's heart rate to dip into the upper 30s while asleep. She appears asymptomatic with no CHF, so there is no need for any acute therapy. There is no AV block or pauses which would be more of a concern. Echo has been ordered but not yet performed. Continue to follow on telemetry No indication for PPM placement at this time. (2) Seizure: Code(s): R56.9 - Unspecified convulsions Status: Acute Assessment and Plan: Reason for admission with seizure. (3) Brain tumor: Code(s): D49.6 - Neoplasm of unspecified behavior of brain Status: Acute Assessment and Plan: Longstanding brain tumor, slight enlargement on recent CT scan. Subjective Date/time seen: 03/12/21 09:09 Interval history: FU for Recent onset of bradycardia of uncertain etiology. Admitted for seizure and possible aspiration pneumonia. 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 Date of service 03/11/2021: Uneventful day. Telemetry shows heart rate generally runs in the mid 40s-50 BPM. Last night it would dip to 38-39 beats per minute occasionally. No pauses or AV block seen. Remains on tube feedings. Date of service 03/12/2021: No acute events overnight. Sleeping this morning but awakens to voice. Remains in sinus bradycardia mid 40's-50bpm. Review of Systems Review of Systems: ROS unobtainable: Yes unobtainable due to medical condition and unobtainable due to mental status Exam Narrative: Older lady lying in bed, Sleeping, breathing comfortably. Const: General: comfortable, no acute distress and confusion Orientation/consciousness: confusion HENMT: General nose exam: no epistaxis Mouth: Yes moist mucous membranes Eyes: Sclera: sclerae normal Neck: Neck: supple Thyroid: thyroid normal Resp: Effort & Inspection: normal respiratory effort Auscultation: clear to auscultation bilaterally Cardio: Rate: regular rate Rhythm: regular rhythm Heart sounds: no murmurs GI: Inspection: non-distended Skin: General skin exam: normal color and no rashes or lesions noted Neuro: General: confusion Cognition (Neuro): abnormal cognition Speech: No normal speech Extrem: General: no edema Other: Dorsalis pedis pulses are intact Psych: Mental Status: mental status grossly abnormal Affect: No normal affect Objective Data Vital Signs Vital Signs: Vital Signs - 24 hr 03/11/21 12:00 03/11/21 14:00 03/11/21 16:00 Temperature 36.9 C Pulse Rate 46 L 50 L 46 L Respiratory Rate 16 Blood Pressure 143/59 H Pulse Oximetry 98 03/11/21 20:00 03/11/21 22:00 03/12/21 00:00 Temperature 36.6 C Pulse Rate 44 L 77 46 L Respiratory Rate 20 Blood Pressure 133/55 L Pulse Oximetry 93 03/12/21 04:00 03/12/21 05:41 Temperature 36.3 C L Pulse Rate 47 L 49 L Respiratory Rate 20 Blood Pressure 109/46 L Pulse Oximetry 95 Intake/Output Intake/Output: Intake & Output 03/09/21 03/10/21 03/11/21 03/12/21 23:59 23:59 23:59 23:59 Intake Total 1609 2200 1550 703 Balance 1609 2200 1550 703 Meds/Results Medications: Active Medications Generic Name Dose Route Start Last Admin Trade Name Freq PRN Reason Stop Dose Admin Aceta
[2021-03-12] MEDS: SACCHAROMYCES BOULARDII 250 MG CAPSULE FEED TUBE ×2 (10:00→17:29)
[2021-03-12] MEDS: LORATADINE 10 MG TABLET FEED TUBE (10:00)
[2021-03-12] MEDS: ERGOCALCIFEROL 50,000 UNIT CAPSULE 50000 UNITS FEED TUBE (10:00)
[2021-03-12] MEDS: ASCORBIC ACID 500 MG TABLET FEED TUBE (10:00)
[2021-03-12 11:53] LABS: Reflex Lactic Acid Yes or No Add Lactic
[2021-03-12 11:53] LABS: Glucose Point of Care 186 mg/dl (65-105)
[2021-03-12 12:34] LABS: Lactic Acid 3.3 mmol/L (0.7-2.1)
[2021-03-12] MEDS: CHLORHEXIDINE GLUCONATE 0.12% ORAL RINSE 473 ML BTL (*BKC) 15 ML SWISH/SPIT ×2 (12:43→23:08)
[2021-03-12] MEDS: SODIUM CHLORIDE 0.9% IV 1,000 ML 50 ML IV CONT (12:43)
--- NOTE | 2021-03-12 13:37 | PM.IMPN ---
Progress Note: A&P Assessment and Plan (1) Seizure: Code(s): R56.9 - Unspecified convulsions Status: Acute (2) Brain mass: Code(s): G93.89 - Other specified disorders of brain Status: Acute (3) Chronic anemia: Code(s): D64.9 - Anemia, unspecified Status: Acute Assessment and Plan: Hemoglobin and hematocrit are stable on review of previous labs. (4) Leukocytosis: Qualifiers: Leukocytosis type: unspecified Qualified Code(s): D72.829 - Elevated white blood cell count, unspecified Code(s): D72.829 - Elevated white blood cell count, unspecified Status: Acute Assessment and Plan: May be related to seizure activity. I have not been able to find any evidence to suggest underlying infection. (5) Brain tumor: Code(s): D49.6 - Neoplasm of unspecified behavior of brain Status: Acute Assessment and Plan: Slight increase in brain tumor when compared to imaging 2 months ago. Family members are requesting Oncology consult thus will ask Dr. Blanton to see her. (6) Insulin dependent type 2 diabetes mellitus: Code(s): E11.9 - Type 2 diabetes mellitus without complications; Z79.4 - MCFP (current) use of insulin Status: Acute Assessment and Plan: Continue basal insulin. Initiate sliding scale insulin, Accu-Cheks, and hypoglycemic protocol. (7) Dementia: Qualifiers: Dementia behavioral disturbance: without behavioral disturbance Dementia type: unspecified type Qualified Code(s): F03.90 - Unspecified dementia without behavioral disturbance Code(s): F03.90 - Unspecified dementia without behavioral disturbance Status: Acute (8) Dysphagia: Code(s): R13.10 - Dysphagia, unspecified Status: Acute Subjective Date/time seen: 03/12/21 13:37 Interval history: 76-year-old female with history of brain cancer, seizure, dementia, and insulin-dependent diabetes who presented to the emergency department earlier today via EMS from [facility] for evaluation after a seizure. She is reportedly nonverbal at baseline and cannot provide history and as such majority of the following is obtained via a review of her electronic medical records as well as from information obtained from family members. Pt i s being treated also for aspiration pneumonia, pt hr has been around 40s, cardiology rounding, echo completed relatively unremarkable. 03/08/21 pending consult by oncology gretchen per neuro infiltrating calcified brain mass on imaging unclear what interventions are availble to pt at this time will follow up on Oncology's recs later today Home meds started Feeds started Continue current care 03/09/21 elevated WBC on dexamethasone ISS and basal BG near goal cont zosyn consult pulm dc keppra seizure precautions cont home meds IVFs PEG feeds 03/10/2021 Elevated wbc's on dexamethasone Continue current low glucose control On Zosyn vancomycin added NS ordered lasix x 1 low dose Phone consultation appreciated Continue seizure precautions Unclear if patient has some active smoldering infection blood cultures, UA, CT abdomen pelvis ordered, CT chest reviewed Patient seen by Cardiology recommendations appreciated Continue current care Anticipate discharge Friday if workup is negative the patient remains stable 03/11/21 cont current care pulm and card recs appreciated cont seizure precautions possible dc tomorrow if workup remains negative pt would benefit from palliative care services and f/u w outpt PCP 03/12/21 continue iv ertapenem and iv vancomycin HR low today echo reviewed cardiology and pulmology rounding see recommendations Review of Systems Review of Systems: All systems reviewed & are unremarkable except as noted in HPI and below Exam Narrative: General: Chronically ill-appearing elderly female Neck: Supple Respiratory: BL decreased Air e
[2021-03-12] MEDS: ERTAPENEM 1 GM/NS 50 ML 1 GM/50 ML BAG IVPB (17:25)
[2021-03-12 17:40] LABS: Glucose Point of Care 199 mg/dl (65-105)
[2021-03-12] MEDS: LACTULOSE 20 GM/30 ML UDC 10 GM FEED TUBE (22:50)
[2021-03-12] MEDS: INSULIN GLARGINE (*BKC) 100 UNITS/ML 20 UNITS SUB-Q (22:50)
[2021-03-12] MEDS: BACLOFEN 5 MG TABLET FEED TUBE (22:50)
[2021-03-12 23:22] LABS: Vancomycin Trough 8.2 ug/mL (10.0-20.0)
[2021-03-12 23:43] LABS: Glucose Point of Care 221 mg/dl (65-105)
[2021-03-13] VITALS (8 sets, daily range): BP systolic 135–162; BP diastolic 58–69; PULSE 51–78; RESP 12–18; TEMP 35.6–36.4; O2SAT 95–100
[2021-03-13] MEDS: SODIUM CHLORIDE 0.9% IV 1,000 ML 75 ML IV CONT ×2 (04:56→21:11)
[2021-03-13] MEDS: DEXAMETHASONE SOD PHOS INJ 4 MG/ML VIAL IV PUSH ×3 (05:11→17:23)
[2021-03-13] MEDS: INSULIN ASPART (*BKC) 100 UNITS/ML SUB-Q ×3 (05:19→17:42)
[2021-03-13 05:49] LABS: Glucose Point of Care 214 mg/dl (65-105)
[2021-03-13] MEDS: LANSOPRAZOLE ORAL SUSP 30 MG/10 ML ORAL.SUSP FEED TUBE (06:22)
[2021-03-13] MEDS: LORATADINE 10 MG TABLET FEED TUBE (08:25)
[2021-03-13] MEDS: ASCORBIC ACID 500 MG TABLET FEED TUBE (08:25)
[2021-03-13] MEDS: SACCHAROMYCES BOULARDII 250 MG CAPSULE FEED TUBE ×2 (08:25→17:22)
[2021-03-13] MEDS: CHLORHEXIDINE GLUCONATE 0.12% ORAL RINSE 473 ML BTL (*BKC) 15 ML SWISH/SPIT ×2 (08:26→21:10)
--- NOTE | 2021-03-13 10:46 | PCNFU ---
Nutrition Follow-Up Complete: Swallowing difficulties related to dysphagia, seizure, brain tumor, and aspiration as evidenced by tube feeding goal: Meet nutritional needs Patient is progressing towards goal. We will continue current goal. Pt current nutrition is Glucerna 1.2 at 60 ml/hr over 22 hours. Last recorded weight is 66.4 kg, up from 65.5 kg on admit. Bowel Motility:+BM reported. Labs Reviewed:No new labs to report. Meds Noted:Vit C, Novolog, Florastor, Prevacid, Lantus, NS. Skin: WNL Additional Notes: Patient current with PEG tube feedings of Glucerna 1.2 at 60 ml/hr and tolerating. Current tube feeding is providing 1584 kcal/80 gms protein/1063 ml water. 30 ml free water flush q 4 hours. Agree with diet orders. Monitoring: Monitor labs, medications, wt, and residuals every T/F
--- NOTE | 2021-03-13 11:08 | PM.PNPUL ---
Progress Note: A&P Assessment and Plan (1) Aspiration pneumonia: Qualifiers: Aspiration pneumonia type: unspecified Laterality: right Lung location: lower lobe of lung Qualified Code(s): J69.0 - Pneumonitis due to inhalation of food and vomit Code(s): J69.0 - Pneumonitis due to inhalation of food and vomit Status: Acute Assessment and Plan: 76-year-old female with history of brain mass, dementia, admitted following episode of seizures. Unclear whether she has aspirated. Chest imaging studies showed possible left lower lobe infiltrate possible subsegmental atelectasis and tiny pleural effusion. The patient was found to have elevated lactic acid and because of borderline blood pressure has been on antibiotics for possible sepsis. She is currently hemodynamically stable. Arterial blood gases done today revealed chronic respiratory alkalosis which explains the low bicarbonate, mild hyperchloremia, and the mildly elevated lactic acid. 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 Most recent chest x-ray showed no active lung disease. MRSA culture pending. Continue to monitor respiratory status, continue with current antibiotics, consider SCDs for DVT. prophylaxis. Repeat ABGs today. (2) Seizure: Code(s): R56.9 - Unspecified convulsions Status: Acute (3) Leukocytosis: Qualifiers: Leukocytosis type: unspecified Qualified Code(s): D72.829 - Elevated white blood cell count, unspecified Code(s): D72.829 - Elevated white blood cell count, unspecified Status: Acute (4) Brain tumor: Code(s): D49.6 - Neoplasm of unspecified behavior of brain Status: Acute (5) Dementia: Qualifiers: Dementia type: unspecified type Dementia behavioral disturbance: without behavioral disturbance Qualified Code(s): F03.90 - Unspecified dementia without behavioral disturbance Code(s): F03.90 - Unspecified dementia without behavioral disturbance Status: Acute (6) Sepsis: Qualifiers: Sepsis type: sepsis due to unspecified organism Sepsis acute organ dysfunction status: with acute organ dysfunction Severe sepsis acute organ dysfunction type: acute respiratory failure Acute respiratory failure type: unspecified Severe sepsis shock status: with septic shock Qualified Code(s): A41.9 - Sepsis, unspecified organism; R65.21 - Severe sepsis with septic shock; J96.00 - Acute respiratory failure, unspecified whether with hypoxia or hypercapnia Code(s): A41.9 - Sepsis, unspecified organism Status: Acute (7) Chronic respiratory alkalosis: Code(s): E87.3 - Alkalosis Status: Acute Subjective Date/time seen: 03/13/21 11:08 respiratory status unchanged. Has been hemodynamically unstable while receiving antibiotics. Last chest x-ray showed no active lung disease. Patient remaining on room air. Blood gases showed respiratory alkalosis. Review of Systems Review of Systems: ROS unobtainable: Yes unobtainable due to medical condition Exam Narrative: GENERAL APPEARANCE: Elderly female laying in bed nonverbal, moving upper extremities more so than lower extremities, keeping eyes open. She is not in any respiratory distress. SKIN: Inspection of the skin reveals no rashes, ulcerations or petechiae. HEENT: Sclerae anicteric and conjunctivae pink and moist. Mouth not tested. NECK: Supple. There was no thyroid enlargement. No JVD CHEST: Normal AP diameter and normal contour without any kyphoscoliosis. LUNGS: Auscultation of the lungs revealed Few rhonchi anteriorly no wheezing. CARDIAC: There was a regular rate and rhythm without any murmurs, gallops, rubs. ABDOMEN: Soft with normal bowel sounds. There was no organomegaly. PEG in place. LYMPH NODES: No lymphadenopathy was appreciated in the neck. EXTREMITIES: No cyanosis, clubbing or edema. NEUROLOGIC: noncommunicative, keeps eyes open, moving upper extremities.
[2021-03-13 12:25] LABS: Glucose Point of Care 224 mg/dl (65-105)
--- NOTE | 2021-03-13 13:24 | PM.PNCARD ---
Progress Note: A&P Assessment and Plan (1) Bradycardia: Code(s): R00.1 - Bradycardia, unspecified <BONIFACIO Montoya - Last Filed: 03/13/21 13:31> Status: Acute <BONIFACIO Montoya - Last Filed: 03/13/21 13:31> Assessment and Plan: Recent onset of bradycardia of uncertain etiology. Not on any rate controlling medications and bradycardia does not appear to be a side effect of any of her current medications. Perhaps related to elevated intracranial pressure? -- Though the radiologist did not see any hydrocephalus on CT of the head. In any case, the bradycardia is at the low end of normal range and is adequate for this level of activity. It is common and no cause for alarm when a person's heart rate to dip into the upper 30s while asleep. She appears asymptomatic with no CHF, so there is no need for any acute therapy. There is no AV block or pauses which would be more of a concern. Echo showed normal LV systolic function with EF 50-55%. Mild MR. No indication for PPM placement at this time. <BONIFACIO Montoya - Last Filed: 03/13/21 13:31> (2) Seizure: Code(s): R56.9 - Unspecified convulsions <BONIFACIO Montoya - Last Filed: 03/13/21 13:31> Status: Acute <BONIFACIO Montoya - Last Filed: 03/13/21 13:31> Assessment and Plan: Reason for admission with seizure. <BONIFACIO Montoya - Last Filed: 03/13/21 13:31> (3) Brain tumor: Code(s): D49.6 - Neoplasm of unspecified behavior of brain <BONIFACIO Montoya - Last Filed: 03/13/21 13:31> Status: Acute <BONIFACIO Montoya - Last Filed: 03/13/21 13:31> Assessment and Plan: Longstanding brain tumor, slight enlargement on recent CT scan. <BONIFACIO Montoya - Last Filed: 03/13/21 13:31> Additional Plan Attending footwear sales associate: Chart reviewed, patient seen and examined, agree with nurse practitioner leander case assessment and plan. No clinical change recently. Telemetry shows heart rate is generally in the 50s, lowest was 49. No pauses or AV block. On exam patient does not regard examiner and is nonverbal but did squeeze with her right hand on command. Heart is regular, bradycardic, lungs clear. She does have some upper airway secretions. No edema. Patient has bradycardia that is on the low end of normal but in the normal range. There is no indication for permanent pacemaker placement. Will sign off. Please call if we can be of further assistance. Maykel Capone MD <Veronika Capone MD - Last Filed: 03/13/21 16:39> Time Spent With Patient Time: This is a patient who was admitted following a witnessed seizure. We were asked to see her because of bradycardia. Her telemetry has demonstrated sinus bradycardia without any AV blocks or significant pauses. She is stable in sinus bradycardia rate in the mid 40's-50's. There is no indication for permanent pacemaker or any further work up. Thank you for asking us to see this patient. We will sign off. Please do not hesitate to contact us if we can be of assistance in the care of this patient in any way. <BONIFACIO Montoya - Last Filed: 03/13/21 13:31> Subjective Date/time seen: 03/13/21 13:24 <BONIFACIO Montoya - Last Filed: 03/13/21 13:31> Interval history: FU for Recent onset of bradycardia of uncertain etiology. Admitted for seizure and possible aspiration pneumonia. 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 Date of service 03/11/2021: Uneventful day. Telemetry shows heart rate generally runs in the mid 40s-50 BPM. Last night it would dip to 38-39 beats per minute occasionally. No pauses or AV block seen. Remains on tube feedings. Date of service 03/12/2021: No acute events overnight. Sleeping this
--- NOTE | 2021-03-13 13:30 | PM.IMPN ---
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 No acute findings. (3) Chronic anemia: Code(s): D64.9 - Anemia, unspecified Status: Acute Assessment and Plan: Hemoglobin and hematocrit are stable on review of previous labs. (4) Leukocytosis: Qualifiers: Leukocytosis type: unspecified Qualified Code(s): D72.829 - Elevated white blood cell count, unspecified Code(s): D72.829 - Elevated white blood cell count, unspecified Status: Acute Assessment and Plan: May be related to seizure activity. (5) Brain tumor: Code(s): D49.6 - Neoplasm of unspecified behavior of brain Status: Acute Assessment and Plan: Slight increase in brain tumor when compared to imaging 2 months ago. 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 Initiate sliding scale insulin, Accu-Cheks, and hypoglycemic protocol. (7) Dementia: Qualifiers: Dementia type: unspecified type Dementia behavioral disturbance: without behavioral disturbance Qualified Code(s): F03.90 - Unspecified dementia without behavioral disturbance Code(s): F03.90 - Unspecified dementia without behavioral disturbance Status: Acute Assessment and Plan: Chronic history of dementia (8) Dysphagia: Code(s): R13.10 - Dysphagia, unspecified Status: Acute Assessment and Plan: Pt is on tube feeds G tube in situ NH pt has tube feeds there (9) Aspiration pneumonia: Qualifiers: Aspiration pneumonia type: unspecified Laterality: right Lung location: lower lobe of lung Qualified Code(s): J69.0 - Pneumonitis due to inhalation of food and vomit Code(s): J69.0 - Pneumonitis due to inhalation of food and vomit Status: Acute Assessment and Plan: Pt is on iv vancomycin and iv ertapenem Pulmology following cxr reviwed clinically pt is improving slightly vitals are more stable Subjective Date/time seen: 03/13/21 13:30 Interval history: 76-year-old female with history of brain cancer, seizure, dementia, and insulin-dependent diabetes who presented to the emergency department earlier today via EMS from [facility] for evaluation after a seizure. She is reportedly nonverbal at baseline and cannot provide history and as such majority of the following is obtained via a review of her electronic medical records as well as from information obtained from family members. Pt i s being treated also for aspiration pneumonia, pt hr has been around 40s, cardiology rounding, echo completed relatively unremarkable. Pt is stable today. Not needing oxygen. Cxr showing no active disease 03/08/21 pending consult by oncology gretchen per neuro infiltrating calcified brain mass on imaging unclear what interventions are availble to pt at this time will follow up on Oncology's recs later today Home meds started Feeds started Continue current care 03/09/21 elevated WBC on dexamethasone ISS and basal BG near goal cont zosyn consult pulm santiago godinez seizure precautions cont home meds IVFs PEG feeds 03/10/2021 Elevated wbc's on dexamethasone Continue current low glucose control On Zosyn vancomycin added NS ordered lasix x 1 low dose Phone consultation appre
[2021-03-13 14:05] LABS: Alveolar/Arterial O2 Gradient 44.9 mmHg; Base Excess ABG -2.6 mEq/l (+/-2.0); Device ROOM AIR; Fractional Inspired Oxygen 21 %; HCO3 ABG 19.3 mEq/l (22.0-26.0); Modified Allen's Test Pass; Oxygen Content ABG 15.5 %vol (16.0-22.0); Oxygen Saturation ABG 96.3 % (95.0-100.0); Oxyhemoglobin 93.8 % THb (90.0-100.0); PCO2 ABG 25.3 mmHg (35.0-45.0); PO2 ABG 74.5 mmHg (80.0-100.0); PO2 FiO2 Ratio Arterial Blood 3.55 %; Site Drawn RIGHT RADIAL; Total Hemoglobin 11.7 g/dL (12.0-18.0)
[2021-03-13] MEDS: ERTAPENEM 1 GM/NS 50 ML 1 GM/50 ML BAG IVPB (17:23)
[2021-03-13 17:42] LABS: Glucose Point of Care 226 mg/dl (65-105)
[2021-03-13] MEDS: BACLOFEN 5 MG TABLET FEED TUBE (21:10)
[2021-03-13 21:44] LABS: Glucose Point of Care 237 mg/dl (65-105)
[2021-03-13] MEDS: INSULIN GLARGINE (*BKC) 100 UNITS/ML 20 UNITS SUB-Q (21:58)
[2021-03-14] VITALS (9 sets, daily range): BP systolic 117–152; BP diastolic 55–95; PULSE 50–68; RESP 14–18; TEMP 35.7–36.2; O2SAT 90–100
[2021-03-14] MEDS: DEXAMETHASONE SOD PHOS INJ 4 MG/ML VIAL IV PUSH ×5 (00:27→23:34)
[2021-03-14] MEDS: INSULIN ASPART (*BKC) 100 UNITS/ML SUB-Q ×5 (00:36→23:46)
[2021-03-14 00:45] LABS: Glucose Point of Care 215 mg/dl (65-105)
[2021-03-14] MEDS: LANSOPRAZOLE ORAL SUSP 30 MG/10 ML ORAL.SUSP FEED TUBE (06:30)
[2021-03-14 06:36] LABS: Glucose Point of Care 229 mg/dl (65-105)
[2021-03-14 06:56] LABS: Anion Gap 7 mmol/L (8-16); Blood Urea Nitrogen 21 mg/dL (7-17); Calcium 8.5 mg/dL (8.4-10.2); Carbon Dioxide 21 mmol/L (22-30); Chloride 104 mmol/L (98-107); Estimated CRCL calculation 92 ml/min; Estimated Glomerular Filt Rate > 60; Glucose 257 mg/dL (65-110); Potassium 4.3 mmol/L (3.4-5.0); Sodium 132 mmol/L (137-145)
[2021-03-14 07:13] LABS: Hematocrit 36.2 % (37.0-47.0); Hemoglobin 11.1 g/dL (12.0-15.0); Mean Corpuscular HGB Conc 30.7 g/dl (32-36); Mean Corpuscular Hemoglobin 25.9 pg (26-34); Mean Corpuscular Volume 84.6 fl (80-100); Mean Platelet Volume 10.3 fl (7.4-10.4); Platelet Count Result 311 k/mm3 (150-375); Red Blood Count 4.28 M/mm3 (4.2-5.4); White Blood Count 14.7 K/mm3 (4.5-10.0)
[2021-03-14 08:47] LABS: Glucose Point of Care 227 mg/dl (65-105)
[2021-03-14] MEDS: ASCORBIC ACID 500 MG TABLET FEED TUBE (09:40)
[2021-03-14] MEDS: LORATADINE 10 MG TABLET FEED TUBE (09:40)
[2021-03-14] MEDS: SACCHAROMYCES BOULARDII 250 MG CAPSULE FEED TUBE ×2 (09:40→17:59)
[2021-03-14] MEDS: CHLORHEXIDINE GLUCONATE 0.12% ORAL RINSE 473 ML BTL (*BKC) 15 ML SWISH/SPIT (09:40)
--- NOTE | 2021-03-14 10:35 | PM.IMPN ---
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 No acute findings. (3) Chronic anemia: Code(s): D64.9 - Anemia, unspecified Status: Acute Assessment and Plan: Hemoglobin and hematocrit are stable on review of previous labs Monitor (4) Leukocytosis: Qualifiers: Leukocytosis type: unspecified Qualified Code(s): D72.829 - Elevated white blood cell count, unspecified Code(s): D72.829 - Elevated white blood cell count, unspecified Status: Acute Assessment and Plan: May be related to seizure activity (5) Brain tumor: Code(s): D49.6 - Neoplasm of unspecified behavior of brain Status: Acute Assessment and Plan: Slight increase in brain tumor when compared to imaging 2 months ago Pt seen by Dr Blanton (6) Insulin dependent type 2 diabetes mellitus: Code(s): E11.9 - Type 2 diabetes mellitus without complications; Z79.4 - group home (current) use of insulin Status: Acute Assessment and Plan: Continue basal insulin. Initiate sliding scale insulin, Accu-Cheks, and hypoglycemic protocol. Monitor (7) Dementia: Qualifiers: Dementia type: unspecified type Dementia behavioral disturbance: without behavioral disturbance Qualified Code(s): F03.90 - Unspecified dementia without behavioral disturbance Code(s): F03.90 - Unspecified dementia without behavioral disturbance Status: Acute Assessment and Plan: Chronic history of dementia (8) Dysphagia: Code(s): R13.10 - Dysphagia, unspecified Status: Acute Assessment and Plan: Pt is on tube feeds NH pt has tube feeds there (9) Aspiration pneumonia: Qualifiers: Aspiration pneumonia type: unspecified Laterality: right Lung location: lower lobe of lung Qualified Code(s): J69.0 - Pneumonitis due to inhalation of food and vomit Code(s): J69.0 - Pneumonitis due to inhalation of food and vomit Status: Acute Assessment and Plan: CXR-->showed possible left lower lobe infiltrate possible subsegmental atelectasis and tiny pleural effusion. WBC, Lactic acid elevated Pt is on iv vancomycin and iv ertapenem Pulmonology following Additional Plan 03/08/21 pending consult by oncology kepp per neuro infiltrating calcified brain mass on imaging unclear what interventions are availble to pt at this time will follow up on Oncology's recs later today Home meds started Feeds started Continue current care 03/09/21 elevated WBC on dexamethasone ISS and basal BG near goal cont zosyn consult pulm dc keppra seizure precautions cont home meds IVFs PEG feeds 03/10/2021 Elevated wbc's on dexamethasone Continue current low glucose control On Zosyn vancomycin added NS ordered lasix x 1 low dose Phone consultation appreciated Continue seizure precautions Unclear if patient has some active smoldering infection blood cultures, UA, CT abdomen pelvis ordered, CT chest reviewed Patient seen by Cardiology recommendations appreciated Continue current care Anticipate discharge Friday if workup is negative the patient remains stable 03/11/21 cont current care pulm and card recs appreciated cont seizure precautions possible dc tomorrow if workup remains negative pt would benefit from palliative care services and f/u w outpt PCP Subjective
--- NOTE | 2021-03-14 11:03 | PM.PNPUL ---
Progress Note: A&P Assessment and Plan (1) Aspiration pneumonia: Qualifiers: Aspiration pneumonia type: unspecified Laterality: right Lung location: lower lobe of lung Qualified Code(s): J69.0 - Pneumonitis due to inhalation of food and vomit Code(s): J69.0 - Pneumonitis due to inhalation of food and vomit Status: Acute Assessment and Plan: 76-year-old female with history of brain mass, dementia, admitted following episode of seizures. Unclear whether she has aspirated. Chest imaging studies showed possible left lower lobe infiltrate possible subsegmental atelectasis and tiny pleural effusion. The patient was found to have elevated lactic acid and because of borderline blood pressure has been on antibiotics for possible sepsis. She is currently hemodynamically stable. Arterial blood done recently revealed chronic respiratory alkalosis which likely explains the low bicarbonate, mild hyperchloremia, and the mildly elevated lactic acid. 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 today chest x-ray raised a question of new infiltrate. MRSA screen negative. Continue to monitor respiratory status, continue with current antibiotics, consider SCDs for DVT. prophylaxis. check procalcitonin level. (2) Seizure: Code(s): R56.9 - Unspecified convulsions Status: Acute (3) Leukocytosis: Qualifiers: Leukocytosis type: unspecified Qualified Code(s): D72.829 - Elevated white blood cell count, unspecified Code(s): D72.829 - Elevated white blood cell count, unspecified Status: Acute (4) Brain tumor: Code(s): D49.6 - Neoplasm of unspecified behavior of brain Status: Acute (5) Dementia: Qualifiers: Dementia behavioral disturbance: without behavioral disturbance Dementia type: unspecified type Qualified Code(s): F03.90 - Unspecified dementia without behavioral disturbance Code(s): F03.90 - Unspecified dementia without behavioral disturbance Status: Acute (6) Sepsis: Qualifiers: Acute respiratory failure type: unspecified Sepsis acute organ dysfunction status: with acute organ dysfunction Sepsis type: sepsis due to unspecified organism Severe sepsis acute organ dysfunction type: acute respiratory failure Severe sepsis shock status: with septic shock Qualified Code(s): A41.9 - Sepsis, unspecified organism; R65.21 - Severe sepsis with septic shock; J96.00 - Acute respiratory failure, unspecified whether with hypoxia or hypercapnia Code(s): A41.9 - Sepsis, unspecified organism Status: Acute (7) Chronic respiratory alkalosis: Code(s): E87.3 - Alkalosis Status: Acute Subjective Date/time seen: 03/14/21 11:03 No significant change in patient's respiratory status. She continues to be on room air with 100% O2 saturation. She still on broad-spectrum antibiotics for possible infection. Review of Systems Review of Systems: All systems reviewed & are unremarkable except as noted in HPI and below Exam Narrative: GENERAL APPEARANCE: Elderly female laying in bed nonverbal, moving upper extremities more so than lower extremities, keeping eyes open. She is not in any respiratory distress. SKIN: Inspection of the skin reveals no rashes, ulcerations or petechiae. HEENT: Sclerae anicteric and conjunctivae pink and moist. Mouth not tested. NECK: Supple. There was no thyroid enlargement. No JVD CHEST: Normal AP diameter and normal contour without any kyphoscoliosis. LUNGS: Auscultation of the lungs revealed Few rhonchi anteriorly no wheezing. CARDIAC: There was a regular rate and rhythm without any murmurs, gallops, rubs. ABDOMEN: Soft with normal bowel sounds. There was no organomegaly. PEG in place. LYMPH NODES: No lymphadenopathy was appreciated in the neck. EXTREMITIES: No cyanosis, clubbing or edema. NEUROLOGIC: noncommunicative, keeps eyes open, moving upper extremities. Object
[2021-03-14 11:53] LABS: Vancomycin Trough 14.3 ug/mL (10.0-20.0)
[2021-03-14 12:03] LABS: Glucose Point of Care 240 mg/dl (65-105)
[2021-03-14] MEDS: SODIUM CHLORIDE 0.9% IV 1,000 ML 75 ML IV CONT (13:27)
[2021-03-14 16:39] LABS: Glucose Point of Care 232 mg/dl (65-105)
[2021-03-14] MEDS: ERTAPENEM 1 GM/NS 50 ML 1 GM/50 ML BAG IVPB (18:05)
[2021-03-14] MEDS: BACLOFEN 5 MG TABLET FEED TUBE (21:14)
[2021-03-14] MEDS: INSULIN GLARGINE (*BKC) 100 UNITS/ML 20 UNITS SUB-Q (21:17)
[2021-03-14 23:13] LABS: Glucose Point of Care 248 mg/dl (65-105)
[2021-03-15] VITALS (9 sets, daily range): BP systolic 116–136; BP diastolic 52–64; PULSE 57–93; RESP 16–18; TEMP 35.9–36.7; O2SAT 91–97
[2021-03-15 00:39] LABS: Glucose Point of Care 272 mg/dl (65-105)
[2021-03-15] MEDS: DEXAMETHASONE SOD PHOS INJ 4 MG/ML VIAL IV PUSH ×4 (05:32→23:22)
[2021-03-15] MEDS: LANSOPRAZOLE ORAL SUSP 30 MG/10 ML ORAL.SUSP FEED TUBE (05:36)
[2021-03-15] MEDS: INSULIN ASPART (*BKC) 100 UNITS/ML SUB-Q ×4 (05:36→23:28)
[2021-03-15] MEDS: SODIUM CHLORIDE 0.9% IV 1,000 ML 75 ML IV CONT ×2 (06:39→21:39)
[2021-03-15 07:32] LABS: Glucose Point of Care 278 mg/dl (65-105)
[2021-03-15 07:35] LABS: Anion Gap 7 mmol/L (8-16); Blood Urea Nitrogen 12 mg/dL (7-17); Carbon Dioxide 11 mmol/L (22-30); Chloride 124 mmol/L (98-107); Estimated CRCL calculation 163 ml/min; Estimated Glomerular Filt Rate > 60; Glucose 135 mg/dL (65-110); Potassium 2.1 mmol/L (3.4-5.0); Sodium 142 mmol/L (137-145)
[2021-03-15 08:10] LABS: Hematocrit 35.8 % (37.0-47.0); Hemoglobin 11.3 g/dL (12.0-15.0); Mean Corpuscular HGB Conc 31.6 g/dl (32-36); Mean Corpuscular Hemoglobin 26.1 pg (26-34); Mean Corpuscular Volume 82.7 fl (80-100); Platelet Count Result 302 k/mm3 (150-375); Red Blood Count 4.33 M/mm3 (4.2-5.4); Red Cell Distribution Width 16.9 % (11.5-14.5); White Blood Count 16.7 K/mm3 (4.5-10.0)
[2021-03-15 08:29] LABS: Anion Gap 6 mmol/L (8-16); Blood Urea Nitrogen 20 mg/dL (7-17); Calcium 7.5 mg/dL (8.4-10.2); Carbon Dioxide 19 mmol/L (22-30); Chloride 109 mmol/L (98-107); Estimated CRCL calculation 118 ml/min; Estimated Glomerular Filt Rate > 60; Glucose 194 mg/dL (65-110); Magnesium 1.7 mg/dL (1.6-2.3); Potassium 3.8 mmol/L (3.4-5.0); Sodium 134 mmol/L (137-145)
[2021-03-15] MEDS: LORATADINE 10 MG TABLET FEED TUBE (09:34)
[2021-03-15] MEDS: SACCHAROMYCES BOULARDII 250 MG CAPSULE FEED TUBE ×2 (09:34→18:07)
[2021-03-15] MEDS: ASCORBIC ACID 500 MG TABLET FEED TUBE (09:34)
[2021-03-15] MEDS: POTASSIUM CHLORIDE 20 MEQ TABLET 40 MEQ PO (09:35)
[2021-03-15] MEDS: CHLORHEXIDINE GLUCONATE 0.12% ORAL RINSE 473 ML BTL (*BKC) 15 ML SWISH/SPIT ×2 (09:37→21:40)
[2021-03-15 12:58] LABS: Glucose Point of Care 230 mg/dl (65-105)
--- NOTE | 2021-03-15 15:32 | PM.IMPN ---
Progress Note: A&P Assessment and Plan (1) Seizure: Code(s): R56.9 - Unspecified convulsions Status: Acute Assessment and Plan: 76-year-old female with history of brain mass, dementia, admitted with seizure CT of head with no acute findings Seizure precautions Neurology was consulted, no anticonvulsants at this time Continue to monitor 03/15/2021 interval history, patient is 76-year-old female with history of brain mass currently admitted with a suspected aspiration pneumonia concerning for sepsis seen by brick pitcher being treated with ertapenem and vancomycin blood culture and MRSA are negative, patient remains clinically stable unfortunately unable to provide any review of symptoms or history, chest x-ray done yesterday showed persistent pneumonia, will switch DuoNeb as scheduled and have PT OT work with the patient. will continue to monitor and further recommendation to follow. 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 No acute findings. (3) Chronic anemia: Code(s): D64.9 - Anemia, unspecified Status: Acute Assessment and Plan: Hemoglobin and hematocrit are stable on review of previous labs Monitor (4) Leukocytosis: Qualifiers: Leukocytosis type: unspecified Qualified Code(s): D72.829 - Elevated white blood cell count, unspecified Code(s): D72.829 - Elevated white blood cell count, unspecified Status: Acute Assessment and Plan: May be related to seizure activity (5) Brain tumor: Code(s): D49.6 - Neoplasm of unspecified behavior of brain Status: Acute Assessment and Plan: Slight increase in brain tumor when compared to imaging 2 months ago Pt seen by Dr Blanton (6) Insulin dependent type 2 diabetes mellitus: Code(s): E11.9 - Type 2 diabetes mellitus without complications; 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 Initiate sliding scale insulin, Accu-Cheks, and hypoglycemic protocol. Monitor (7) Dementia: Qualifiers: Dementia behavioral disturbance: without behavioral disturbance Dementia type: unspecified type Qualified Code(s): F03.90 - Unspecified dementia without behavioral disturbance Code(s): F03.90 - Unspecified dementia without behavioral disturbance Status: Acute Assessment and Plan: Chronic history of dementia (8) Dysphagia: Code(s): R13.10 - Dysphagia, unspecified Status: Acute Assessment and Plan: Pt is on tube feeds NH pt has tube feeds there (9) Aspiration pneumonia: Qualifiers: Aspiration pneumonia type: unspecified Laterality: right Lung location: lower lobe of lung Qualified Code(s): J69.0 - Pneumonitis due to inhalation of food and vomit Code(s): J69.0 - Pneumonitis due to inhalation of food and vomit Status: Acute Assessment and Plan: CXR-->showed possible left lower lobe infiltrate possible subsegmental atelectasis and tiny pleural effusion. WBC, Lactic acid elevated Pt is on iv vancomycin and iv ertapenem Pulmonology following Subjective Date/time seen: 03/15/21 15:32 Interval history: 76-year-old female with history of brain cancer, seizure, dementia, and insulin-dependent diabetes who presented to the emergency department earlier today via EMS from [facility] for evaluation after a seizure. She is reportedly nonverbal at baseline and cannot provide history and as such majority of the following is obtained via a review of her electronic medical records as well as from information obtained from family members. Pt i s being treated also for aspiration pneumonia, pt hr has been around 40s, cardiology roundi
[2021-03-15] MEDS: ERTAPENEM 1 GM/NS 50 ML 1 GM/50 ML BAG IVPB (18:05)
[2021-03-15 18:28] LABS: Glucose Point of Care 221 mg/dl (65-105)
[2021-03-15] MEDS: BACLOFEN 5 MG TABLET FEED TUBE (21:40)
[2021-03-15] MEDS: INSULIN GLARGINE (*BKC) 100 UNITS/ML 20 UNITS SUB-Q (21:42)
[2021-03-15 23:29] LABS: Glucose Point of Care 218 mg/dl (65-105)
[2021-03-16] VITALS (9 sets, daily range): BP systolic 123–140; BP diastolic 54–62; PULSE 63–76; RESP 14–20; TEMP 35.9–36.4; O2SAT 93–94
[2021-03-16] MEDS: DEXAMETHASONE SOD PHOS INJ 4 MG/ML VIAL IV PUSH ×4 (05:42→22:46)
[2021-03-16] MEDS: LANSOPRAZOLE ORAL SUSP 30 MG/10 ML ORAL.SUSP FEED TUBE (05:44)
[2021-03-16] MEDS: INSULIN ASPART (*BKC) 100 UNITS/ML SUB-Q ×3 (05:50→17:18)
[2021-03-16 07:54] LABS: Glucose Point of Care 214 mg/dl (65-105)
[2021-03-16 08:39] LABS: Glucose Point of Care 277 mg/dl (65-105)
--- NOTE | 2021-03-16 09:50 | PM.PNPUL ---
Progress Note: A&P Assessment and Plan (1) Aspiration pneumonia: Qualifiers: Aspiration pneumonia type: unspecified Laterality: right Lung location: lower lobe of lung Qualified Code(s): J69.0 - Pneumonitis due to inhalation of food and vomit Code(s): J69.0 - Pneumonitis due to inhalation of food and vomit Status: Acute Assessment and Plan: 76-year-old female with history of brain mass, dementia, admitted following episode of seizures. Unclear whether she has aspirated. Chest imaging studies showed possible left lower lobe infiltrate possible subsegmental atelectasis and tiny pleural effusion. The patient was found to have elevated lactic acid and because of borderline blood pressure has been on antibiotics for possible sepsis. She is currently hemodynamically stable. Arterial blood done recently revealed chronic respiratory alkalosis which likely explains the low bicarbonate, mild hyperchloremia, and the mildly elevated lactic acid. the respiratory alkalosis is probably related to LINUX SYSTEM ADMIN tumor. Low bicarbonate persists despite treatment with antibiotics I suspect lactic acid also elevated. There is a question of a left lower lobe infiltrate vs atelectasis in left lower lobe on today's chest x-ray. Leukocytosis persists but could be due to IV steroids. MRSA screen negative. Continue to monitor respiratory status, continue with current antibiotics, check procalcitonin level. (2) Seizure: Code(s): R56.9 - Unspecified convulsions Status: Acute (3) Leukocytosis: Qualifiers: Leukocytosis type: unspecified Qualified Code(s): D72.829 - Elevated white blood cell count, unspecified Code(s): D72.829 - Elevated white blood cell count, unspecified Status: Acute (4) Brain tumor: Code(s): D49.6 - Neoplasm of unspecified behavior of brain Status: Acute (5) Dementia: Qualifiers: Dementia behavioral disturbance: without behavioral disturbance Dementia type: unspecified type Qualified Code(s): F03.90 - Unspecified dementia without behavioral disturbance Code(s): F03.90 - Unspecified dementia without behavioral disturbance Status: Acute (6) Sepsis: Qualifiers: Acute respiratory failure type: unspecified Sepsis acute organ dysfunction status: with acute organ dysfunction Sepsis type: sepsis due to unspecified organism Severe sepsis acute organ dysfunction type: acute respiratory failure Severe sepsis shock status: with septic shock Qualified Code(s): A41.9 - Sepsis, unspecified organism; R65.21 - Severe sepsis with septic shock; J96.00 - Acute respiratory failure, unspecified whether with hypoxia or hypercapnia Code(s): A41.9 - Sepsis, unspecified organism Status: Acute (7) Chronic respiratory alkalosis: Code(s): E87.3 - Alkalosis Status: Acute Subjective Date/time seen: 03/16/21 09:50 no significant change in patient's respiratory status. She remains on room air. She is still on antibiotics. She is nonverbal. She is on IV dexamethasone for cerebral edema related to brain malignancy. She has had leukocytosis. There has been no significant change in gas exchange. She has SCDs on for DVT prophylaxis. Review of Systems Review of Systems: ROS unobtainable: Yes unobtainable due to medical condition Exam Narrative: GENERAL APPEARANCE: Elderly female laying in bed nonverbal, moving upper extremities more so than lower extremities, keeping eyes open. She is not in any respiratory distress. SKIN: Inspection of the skin reveals no rashes, ulcerations or petechiae. HEENT: Sclerae anicteric and conjunctivae pink and moist. Mouth not tested. NECK: Supple. There was no thyroid enlargement. No JVD CHEST: Normal AP diameter and normal contour without any kyphoscoliosis. LUNGS: Auscultation of the lungs revealed Few rhonchi anteriorly no wheezing. CARDIAC: There was a regular rate and rhy
[2021-03-16] MEDS: SACCHAROMYCES BOULARDII 250 MG CAPSULE FEED TUBE ×2 (09:55→17:12)
[2021-03-16] MEDS: ASCORBIC ACID 500 MG TABLET FEED TUBE (09:56)
[2021-03-16] MEDS: LORATADINE 10 MG TABLET FEED TUBE (09:56)
[2021-03-16] MEDS: CHLORHEXIDINE GLUCONATE 0.12% ORAL RINSE 473 ML BTL (*BKC) 15 ML SWISH/SPIT ×2 (09:57→22:46)
[2021-03-16 11:41] LABS: Glucose Point of Care 209 mg/dl (65-105)
--- NOTE | 2021-03-16 12:02 | PCNFU ---
Nutrition Follow-Up Complete: Swallowing difficulties related to dysphagia, seizure, brain tumor, and aspiration as evidenced by tube feeding Goal: Meet nutritional needs Pt. to meet estimated nutritional needs. Pt current nutrition is Glucerna 1.2 at 60 mls per hour over 22 hours per day with a 30 ml water flush Q4. Last recorded weight is 70.1 kg. recommend re-weighing pt. prior to discharge. Bowel Motility: + BM 03/14/2021 Labs Reviewed: POC Capillary Glucose: 214 Meds Noted: Albuterol, Peridex, Vitamin C, Glucagon, Novolog, Lantus, Lactulose, Vancomycin Hcl, Florastor, Lansoprazole Skin: No skin break down at this time. WNL. Additional Notes: Pt. is currently receiving 1584 calories, 79 grams of protein and 1062 mls of water from current feeding as well as an additional 180 mls from water flush. Tolerating feedings well with little to residuals. Monitor labs, medications, wt, and residuals every T/F
[2021-03-16 12:09] LABS: Hematocrit 37.1 % (37.0-47.0); Hemoglobin 11.6 g/dL (12.0-15.0); Mean Corpuscular HGB Conc 31.3 g/dl (32-36); Mean Corpuscular Volume 83.2 fl (80-100); Platelet Count Result 300 k/mm3 (150-375); Red Blood Count 4.46 M/mm3 (4.2-5.4); Red Cell Distribution Width 17.3 % (11.5-14.5); White Blood Count 16.7 K/mm3 (4.5-10.0)
[2021-03-16 12:28] LABS: Anion Gap 9 mmol/L (8-16); Blood Urea Nitrogen 23 mg/dL (7-17); Calcium 8.4 mg/dL (8.4-10.2); Carbon Dioxide 22 mmol/L (22-30); Chloride 102 mmol/L (98-107); Estimated CRCL calculation 92 ml/min; Estimated Glomerular Filt Rate > 60; Glucose 239 mg/dL (65-110); Magnesium 2.1 mg/dL (1.6-2.3); Potassium 4.6 mmol/L (3.4-5.0); Sodium 133 mmol/L (137-145)
--- NOTE | 2021-03-16 13:11 | PM.IMPN ---
Progress Note: A&P Assessment and Plan (1) Seizure: Code(s): R56.9 - Unspecified convulsions Status: Acute Assessment and Plan: 76-year-old female with history of brain mass, dementia, admitted with seizure CT of head with no acute findings Seizure precautions Neurology was consulted, no anticonvulsants at this time Continue to monitor 03/15/2021 interval history, patient is 76-year-old female with history of brain mass currently admitted with a suspected aspiration pneumonia concerning for sepsis seen by chicken dresser being treated with ertapenem and vancomycin blood culture and MRSA are negative, patient remains clinically stable unfortunately unable to provide any review of symptoms or history, chest x-ray done yesterday showed persistent pneumonia, will switch DuoNeb as scheduled and have PT OT work with the patient. will continue to monitor and further recommendation to follow. 03/16/2021 interval history, admitte on 03/10 patient is 76-year-old female with history of brain mass chronically on dexamethasone 6mg q6, currently admitted with a suspected aspiration pneumonia concerning for sepsis seen by chicken dresser being treated with ertapenem day 7/10 and vancomycin day 4, MRSA is negative, blood culture no growth so far, has elevated WBC 2/2 steroid, D/W chicken dresser today suspect elevated latic acid most likely 2/2 to brain mass resulting in respiratory alkolosis which can cause elevated lactic acid, recommended to continue Ertapenem for total 10 days, patient remains clinically stable unfortunately unable to provide any review of symptoms or history, chest x-ray done yesterday showed persistent pneumonia, will switch DuoNeb as scheduled and have PT OT work with the patient. will continue to monitor and further recommendation to follow. Called [phone] left message. 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 No acute findings. (3) Chronic anemia: Code(s): D64.9 - Anemia, unspecified Status: Acute Assessment and Plan: Hemoglobin and hematocrit are stable on review of previous labs Monitor (4) Leukocytosis: Qualifiers: Leukocytosis type: unspecified Qualified Code(s): D72.829 - Elevated white blood cell count, unspecified Code(s): D72.829 - Elevated white blood cell count, unspecified Status: Acute Assessment and Plan: May be related to seizure activity (5) Brain tumor: Code(s): D49.6 - Neoplasm of unspecified behavior of brain Status: Acute Assessment and Plan: Slight increase in brain tumor when compared to imaging 2 months ago Pt seen by Dr Blanton (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 Initiate sliding scale insulin, Accu-Cheks, and hypoglycemic protocol. Monitor (7) Dementia: Qualifiers: Dementia type: unspecified type Dementia behavioral disturbance: without behavioral disturbance Qualified Code(s): F03.90 - Unspecified dementia without behavioral disturbance Code(s): F03.90 - Unspecified dementia without behavioral disturbance Status: Acute Assessment and Plan: Chronic history of dementia (8) Dysphagia: Code(s): R13.10 - Dysphagia, unspecified Status: Acute Assessment and Plan: Pt is on tube feeds [facility] pt has tube feeds there (9) Aspiration pneumonia: Qualifiers: Aspiration pneumonia type: unspecified Laterality: right Lung location: lower lobe of lung Qualified Code(s): J69.0 - Pneumonitis due to inhalation of food and vomit
[2021-03-16] MEDS: SODIUM CHLORIDE 0.9% IV 1,000 ML 75 ML IV CONT (14:44)
[2021-03-16] MEDS: ERTAPENEM 1 GM/NS 50 ML 1 GM/50 ML BAG IVPB (17:11)
[2021-03-16 17:18] LABS: Glucose Point of Care 214 mg/dl (65-105)
[2021-03-16] MEDS: BACLOFEN 5 MG TABLET FEED TUBE (22:42)
[2021-03-16] MEDS: INSULIN GLARGINE (*BKC) 100 UNITS/ML 20 UNITS SUB-Q (22:48)
[2021-03-16 23:30] LABS: Glucose Point of Care 199 mg/dl (65-105)
[2021-03-17] VITALS (11 sets, daily range): BP systolic 139–150; BP diastolic 69–79; PULSE 61–90; RESP 14–20; TEMP 36.2–36.9; O2SAT 93–97
[2021-03-17 01:12] LABS: Glucose Point of Care 219 mg/dl (65-105)
[2021-03-17] MEDS: INSULIN ASPART (*BKC) 100 UNITS/ML SUB-Q ×4 (01:18→18:34)
[2021-03-17] MEDS: FUROSEMIDE INJ 40 MG/4 ML VIAL IV PUSH (05:24)
[2021-03-17 06:25] LABS: Hematocrit 39.8 % (37.0-47.0); Hemoglobin 12.7 g/dL (12.0-15.0); Mean Corpuscular HGB Conc 31.9 g/dl (32-36); Mean Corpuscular Hemoglobin 26.2 pg (26-34); Mean Corpuscular Volume 82.1 fl (80-100); Platelet Count Result 306 k/mm3 (150-375); Red Blood Count 4.85 M/mm3 (4.2-5.4); Red Cell Distribution Width 17.4 % (11.5-14.5); White Blood Count 23.1 K/mm3 (4.5-10.0)
[2021-03-17 06:47] LABS: Anion Gap 9 mmol/L (8-16); Blood Urea Nitrogen 31 mg/dL (7-17); Calcium 9.3 mg/dL (8.4-10.2); Carbon Dioxide 22 mmol/L (22-30); Chloride 100 mmol/L (98-107); Estimated CRCL calculation 92 ml/min; Estimated Glomerular Filt Rate > 60; Glucose 201 mg/dL (65-110); Magnesium 1.9 mg/dL (1.6-2.3); Potassium 4.2 mmol/L (3.4-5.0); Sodium 131 mmol/L (137-145)
[2021-03-17 08:08] LABS: Glucose Point of Care 164 mg/dl (65-105)
[2021-03-17] MEDS: LANSOPRAZOLE ORAL SUSP 30 MG/10 ML ORAL.SUSP FEED TUBE (08:36)
[2021-03-17] MEDS: LORATADINE 10 MG TABLET FEED TUBE (10:20)
[2021-03-17] MEDS: CHLORHEXIDINE GLUCONATE 0.12% ORAL RINSE 473 ML BTL (*BKC) 15 ML SWISH/SPIT ×2 (10:20→21:16)
[2021-03-17] MEDS: ASCORBIC ACID 500 MG TABLET FEED TUBE (10:20)
[2021-03-17] MEDS: SACCHAROMYCES BOULARDII 250 MG CAPSULE FEED TUBE ×2 (10:20→17:07)
[2021-03-17 11:32] LABS: Glucose Point of Care 214 mg/dl (65-105)
--- NOTE | 2021-03-17 12:45 | PM.IMPN ---
Progress Note: A&P Assessment and Plan (1) Seizure: Code(s): R56.9 - Unspecified convulsions Status: Acute Assessment and Plan: 76-year-old female with history of brain mass, dementia, admitted with seizure CT of head with no acute findings Seizure precautions Neurology was consulted, no anticonvulsants at this time Continue to monitor 03/15/2021 interval history, patient is 76-year-old female with history of brain mass currently admitted with a suspected aspiration pneumonia concerning for sepsis seen by panel machine operator being treated with ertapenem and vancomycin blood culture and MRSA are negative, patient remains clinically stable unfortunately unable to provide any review of symptoms or history, chest x-ray done yesterday showed persistent pneumonia, will switch DuoNeb as scheduled and have PT OT work with the patient. will continue to monitor and further recommendation to follow. 03/16/2021 interval history, admitte on 03/10 patient is 76-year-old female with history of brain mass chronically on dexamethasone 6mg q6, currently admitted with a suspected aspiration pneumonia concerning for sepsis seen by panel machine operator being treated with ertapenem day 7/10 and vancomycin day 4, MRSA is negative, blood culture no growth so far, has elevated WBC 2/2 steroid, D/W panel machine operator today suspect elevated latic acid most likely 2/2 to brain mass resulting in respiratory alkolosis which can cause elevated lactic acid, recommended to continue Ertapenem for total 10 days, patient remains clinically stable unfortunately unable to provide any review of symptoms or history, chest x-ray done yesterday showed persistent pneumonia, will switch DuoNeb as scheduled and have PT OT work with the patient. will continue to monitor and further recommendation to follow. Called [phone] left message. 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 No acute findings. (3) Chronic anemia: Code(s): D64.9 - Anemia, unspecified Status: Acute Assessment and Plan: Hemoglobin and hematocrit are stable on review of previous labs Monitor (4) Leukocytosis: Qualifiers: Leukocytosis type: unspecified Qualified Code(s): D72.829 - Elevated white blood cell count, unspecified Code(s): D72.829 - Elevated white blood cell count, unspecified Status: Acute Assessment and Plan: May be related to seizure activity (5) Brain tumor: Code(s): D49.6 - Neoplasm of unspecified behavior of brain Status: Acute Assessment and Plan: Slight increase in brain tumor when compared to imaging 2 months ago Pt seen by Dr Blanton (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 Initiate sliding scale insulin, Accu-Cheks, and hypoglycemic protocol. Monitor (7) Dementia: Qualifiers: Dementia type: unspecified type Dementia behavioral disturbance: without behavioral disturbance Qualified Code(s): F03.90 - Unspecified dementia without behavioral disturbance Code(s): F03.90 - Unspecified dementia without behavioral disturbance Status: Acute Assessment and Plan: Chr
[2021-03-17] MEDS: DEXAMETHASONE 4 MG TABLET FEED TUBE (17:07)
[2021-03-17 17:36] LABS: Glucose Point of Care 196 mg/dl (65-105)
--- NOTE | 2021-03-17 17:37 | PM.PNPUL ---
Progress Note: A&P Assessment and Plan (1) Aspiration pneumonia: Qualifiers: Aspiration pneumonia type: unspecified Laterality: right Lung location: lower lobe of lung Qualified Code(s): J69.0 - Pneumonitis due to inhalation of food and vomit Code(s): J69.0 - Pneumonitis due to inhalation of food and vomit Status: Acute Assessment and Plan: 76-year-old female with history of brain mass, dementia, admitted following episode of seizures. Unclear whether she has aspirated. Chest imaging studies showed possible left lower lobe infiltrate possible subsegmental atelectasis and tiny pleural effusion. The patient was found to have elevated lactic acid and because of borderline blood pressure has been on antibiotics for possible sepsis. She is currently hemodynamically stable. Arterial blood done recently revealed chronic respiratory alkalosis which likely explains the low bicarbonate, mild hyperchloremia, and the mildly elevated lactic acid. 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 Low bicarbonate persists despite treatment with antibiotics I suspect lactic acid also elevated. There is a question of a left lower lobe infiltrate vs atelectasis in left lower lobe on today's chest x-ray. Leukocytosis persists but could be due to IV steroids. MRSA screen negative. Continue to monitor respiratory status,stop antibiotics. I spoke with family. There is no obvious source of an infection although WBC is higher 23K. She has completed several days of vanco and Invanz/ertapenem. She has lost IV access. Has had multiple attempts to get IV access. She has excessive amounts of UE peripheral edema making placement of PIV challenging. (2) Seizure: Code(s): R56.9 - Unspecified convulsions Status: Acute Assessment and Plan: no active seizure activity (3) Leukocytosis: Qualifiers: Leukocytosis type: unspecified Qualified Code(s): D72.829 - Elevated white blood cell count, unspecified Code(s): D72.829 - Elevated white blood cell count, unspecified Status: Acute Assessment and Plan: increased WBC 23 K, no source identified; no fever (4) Brain tumor: Code(s): D49.6 - Neoplasm of unspecified behavior of brain Status: Acute Assessment and Plan: history of brain tunor 10 years ago, removed surgically and had XRT (5) Dementia: Qualifiers: Dementia behavioral disturbance: without behavioral disturbance Dementia type: unspecified type Qualified Code(s): F03.90 - Unspecified dementia without behavioral disturbance Code(s): F03.90 - Unspecified dementia without behavioral disturbance Status: Acute Assessment and Plan: Had worsening after COVID 18 months ago, downhillk course per family (6) Sepsis: Qualifiers: Acute respiratory failure type: unspecified Sepsis acute organ dysfunction status: with acute organ dysfunction Sepsis type: sepsis due to unspecified organism Severe sepsis acute organ dysfunction type: acute respiratory failure Severe sepsis shock status: with septic shock Qualified Code(s): A41.9 - Sepsis, unspecified organism; R65.21 - Severe sepsis with septic shock; J96.00 - Acute respiratory failure, unspecified whether with hypoxia or hypercapnia Code(s): A41.9 - Sepsis, unspecified organism Status: Acute Assessment and Plan: (7) Chronic respiratory alkalosis: Code(s): E87.3 - Alkalosis Status: Acute Assessment and Plan:
[2021-03-17] MEDS: BACLOFEN 5 MG TABLET FEED TUBE (21:16)
[2021-03-17] MEDS: INSULIN GLARGINE (*BKC) 100 UNITS/ML 30 UNITS SUB-Q (21:20)
[2021-03-17] MEDS: ALBUTEROL SULFATE NEB 2.5 MG/0.5 ML INH INHALATION (22:33)
[2021-03-17 23:29] LABS: Add Urine Microscopic? YES; Appearance Urine Clear (Clear); Bilirubin Urine Negative (Negative); Blood Urine Negative (Negative); Budding Yeast Urine Present /hpf; Color Urine Straw (Yellow); Glucose Urine UA 1+ mg/dL (Negative); Ketones Urine Negative (Negative); Leukocyte Esterase Ur Negative LEU/UL (Negative); Mucus Urine Rare /lpf; Nitrate Urine Negative (Negative); Protein Urine Negative (Negative); RBC Urine 21-50 /hpf (0-2); Specific Grav Ur 1.011 (1.001-1.035); Squamous Epithelial Cell Urine Occasional /hpf (Few); Urobilinogen Urine Negative mg/dL (<2.0); WBC Urine 0-3 /hpf
[2021-03-18] VITALS (9 sets, daily range): BP systolic 115–144; BP diastolic 75–82; PULSE 78–90; RESP 16–18; TEMP 36.2–36.8; O2SAT 94–96
[2021-03-18] MEDS: INSULIN ASPART (*BKC) 100 UNITS/ML SUB-Q ×4 (00:15→18:24)
[2021-03-18 05:30] LABS: Glucose Point of Care 266 mg/dl (65-105)
[2021-03-18 05:30] LABS: Glucose Point of Care 251 mg/dl (65-105)
[2021-03-18] MEDS: LANSOPRAZOLE ORAL SUSP 30 MG/10 ML ORAL.SUSP FEED TUBE (05:41)
[2021-03-18 05:48] LABS: Glucose Point of Care 184 mg/dl (65-105)
[2021-03-18 06:21] LABS: Hemoglobin 10.8 g/dL (12.0-15.0); Mean Corpuscular HGB Conc 31.8 g/dl (32-36); Mean Corpuscular Volume 81.7 fl (80-100); Mean Platelet Volume 11.7 fl (7.4-10.4); Platelet Count Result 177 k/mm3 (150-375); Red Blood Count 4.16 M/mm3 (4.2-5.4); Red Cell Distribution Width 17.6 % (11.5-14.5); White Blood Count 20.5 K/mm3 (4.5-10.0)
[2021-03-18 06:43] LABS: Anion Gap 9 mmol/L (8-16); Blood Urea Nitrogen 33 mg/dL (7-17); Calcium 8.8 mg/dL (8.4-10.2); Carbon Dioxide 24 mmol/L (22-30); Chloride 99 mmol/L (98-107); Estimated CRCL calculation 76 ml/min; Estimated Glomerular Filt Rate > 60; Glucose 175 mg/dL (65-110); Potassium 4.4 mmol/L (3.4-5.0); Sodium 132 mmol/L (137-145)
[2021-03-18] MEDS: CHLORHEXIDINE GLUCONATE 0.12% ORAL RINSE 473 ML BTL (*BKC) 15 ML SWISH/SPIT ×2 (07:46→20:31)
[2021-03-18] MEDS: LORATADINE 10 MG TABLET FEED TUBE (07:47)
[2021-03-18] MEDS: SACCHAROMYCES BOULARDII 250 MG CAPSULE FEED TUBE ×2 (07:47→17:09)
[2021-03-18] MEDS: ASCORBIC ACID 500 MG TABLET FEED TUBE (07:49)
[2021-03-18 11:54] LABS: Glucose Point of Care 176 mg/dl (65-105)
--- NOTE | 2021-03-18 14:44 | PM.IMPN ---
Progress Note: A&P Assessment and Plan (1) Seizure: Code(s): R56.9 - Unspecified convulsions Status: Acute Assessment and Plan: 76-year-old female with history of brain mass, dementia, admitted with seizure CT of head with no acute findings Seizure precautions Neurology was consulted, no anticonvulsants at this time Continue to monitor 03/15/2021 interval history, patient is 76-year-old female with history of brain mass currently admitted with a suspected aspiration pneumonia concerning for sepsis seen by power plant supervisor being treated with ertapenem and vancomycin blood culture and MRSA are negative, patient remains clinically stable unfortunately unable to provide any review of symptoms or history, chest x-ray done yesterday showed persistent pneumonia, will switch DuoNeb as scheduled and have PT OT work with the patient. will continue to monitor and further recommendation to follow. 03/16/2021 interval history, admitte on 03/10 patient is 76-year-old female with history of brain mass chronically on dexamethasone 6mg q6, currently admitted with a suspected aspiration pneumonia concerning for sepsis seen by power plant supervisor being treated with ertapenem day 7/10 and vancomycin day 4, MRSA is negative, blood culture no growth so far, has elevated WBC 2/2 steroid, D/W power plant supervisor today suspect elevated latic acid most likely 2/2 to brain mass resulting in respiratory alkolosis which can cause elevated lactic acid, recommended to continue Ertapenem for total 10 days, patient remains clinically stable unfortunately unable to provide any review of symptoms or history, chest x-ray done yesterday showed persistent pneumonia, will switch DuoNeb as scheduled and have PT OT work with the patient. will continue to monitor and further recommendation to follow. Called [phone] left message. 03/17/2021 interval history, admitte on 03/10 patient remains clinically stable, unable to provide detail review of symptoms her white counts elevated compared to his baseline due to steroid, however patient does not have any fever will repeat chest x-ray and repeat blood culture, will continue present management with a ertapenem and vancomycin, will continue to monitor and further recommendation to follow. 03/18/2021 interval history, admitte on 03/10 patient remains clinically stable, unable to provide detail review of symptoms her white counts were elevated on 03/17 compared to her baseline due to steroid, steroids were stopped on 03/17 her WBC slightly lower today, repeat chest x-rays today showed improvement, blood culture done on 03/10 and repeat blood culture done on 03/17 still no growth and patient does not have any fever, Patient is seen by Dr. Hinds, Pulmonogist and in contact with the family, will continue present management with a ertapenem and vancomycin once IV is establish, I agree with Dr. Hinds, family may consider hospice for the patient as her quality of life has not improved since last year patient was seen. 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 No acute findings. (3) Chronic anemia: Code(s): D64.9 - Anemia, unspecified Status: Acute Assessment and Plan: Hemoglobin and hematocrit are stable on review of previous labs Monitor (4) Leukocytosis: Qualifiers: Leukocytosis type: unspecified Qualified Code(s): D72.829 - Elevated white blood cell count, unspecified Code(s): D72.829 - Elevated white blood cell count, unspecified Status: Acute Assessment and Plan: May be related to seizure activity (5) Brain tumor: Code(s): D49.6 - Neoplasm of unspecified behavior of brain
--- NOTE | 2021-03-18 15:06 | PM.PNPUL ---
Progress Note: A&P Assessment and Plan (1) Aspiration pneumonia: Qualifiers: Aspiration pneumonia type: unspecified Laterality: right Lung location: lower lobe of lung Qualified Code(s): J69.0 - Pneumonitis due to inhalation of food and vomit Code(s): J69.0 - Pneumonitis due to inhalation of food and vomit Status: Acute Assessment and Plan: 76-year-old female with history of brain mass, dementia, admitted following episode of seizures. Unclear whether she has aspirated. Seh sounds as if she cannot manage her secretions. Chest imaging studies stable left lower lobe infiltrate/subsegmental atelectasis. She was treated for sepsis, now stopped routine antibiotics as she lost IV access. FAMily requested Rocephin IM x 1 dose as WBC is still high. She is currently hemodynamically stable. Leukocytosis is better. May be going down as the dexamethasone has been stopped. ALl cultures are legative. MRSA screen negative. I spoke with family again today. She has lost IV access. Has had multiple attempts to get IV access. She has excessive amounts of UE peripheral edema making placement of PIV challenging. (2) Seizure: Code(s): R56.9 - Unspecified convulsions Status: Acute Assessment and Plan: no active seizure activity (3) Leukocytosis: Qualifiers: Leukocytosis type: unspecified Qualified Code(s): D72.829 - Elevated white blood cell count, unspecified Code(s): D72.829 - Elevated white blood cell count, unspecified Status: Acute Assessment and Plan: stable, 20 K, no source identified; no fever (4) Brain tumor: Code(s): D49.6 - Neoplasm of unspecified behavior of brain Status: Acute Assessment and Plan: history of brain tumor 10 years ago, removed surgically and had XRT (5) Dementia: Qualifiers: Dementia behavioral disturbance: without behavioral disturbance Dementia type: unspecified type Qualified Code(s): F03.90 - Unspecified dementia without behavioral disturbance Code(s): F03.90 - Unspecified dementia without behavioral disturbance Status: Acute Assessment and Plan: Had worsening after COVID 18 months ago, downhill course per family (6) Sepsis: Qualifiers: Acute respiratory failure type: unspecified Sepsis acute organ dysfunction status: with acute organ dysfunction Sepsis type: sepsis due to unspecified organism Severe sepsis acute organ dysfunction type: acute respiratory failure Severe sepsis shock status: with septic shock Qualified Code(s): A41.9 - Sepsis, unspecified organism; R65.21 - Severe sepsis with septic shock; J96.00 - Acute respiratory failure, unspecified whether with hypoxia or hypercapnia Code(s): A41.9 - Sepsis, unspecified organism Status: Acute Assessment and Plan: (7) Chronic respiratory alkalosis: Code(s): E87.3 - Alkalosis Status: Acute Assessment and Plan: Subjective Date/time seen: 03/18/21 15:06 Linette Vásquez is a 76 year old female seen in f/u for aspiration pneumonia; she is on room air. She is the same neurologically, has difficulty with aspiration. She has a wet noisy breathing pattern although her saturation is 94% on room air. I spoke with family, and Ariela GLEASON charge nurse also listened. The family asked questions about labs, vital signs, medications. I entered some orders based on their requests including 1 time dose of Rocephin IM, adding guaifenesin BID liq
[2021-03-18] MEDS: cefTRIAXone 1 GM VIAL IM (15:57)
[2021-03-18] MEDS: guaiFENesin 200 MG/10 ML UDC PO (17:09)
[2021-03-18 18:25] LABS: Glucose Point of Care 175 mg/dl (65-105)
[2021-03-18] MEDS: BACLOFEN 5 MG TABLET FEED TUBE (20:17)
[2021-03-18] MEDS: INSULIN GLARGINE (*BKC) 100 UNITS/ML 30 UNITS SUB-Q (20:31)
[2021-03-18 20:38] LABS: Glucose Point of Care 164 mg/dl (65-105)
[2021-03-19] VITALS (16 sets, daily range): BP systolic 100–111; BP diastolic 41–52; PULSE 80–106; RESP 18–20; TEMP 36.2–36.6; O2SAT 93–95
[2021-03-19 00:18] LABS: Glucose Point of Care 126 mg/dl (65-105)
[2021-03-19] MEDS: ALBUTEROL SULFATE NEB 2.5 MG/0.5 ML INH INHALATION ×3 (02:31→21:47)
[2021-03-19] MEDS: LANSOPRAZOLE ORAL SUSP 30 MG/10 ML ORAL.SUSP FEED TUBE (05:44)
[2021-03-19 05:47] LABS: Glucose Point of Care 128 mg/dl (65-105)
[2021-03-19 07:02] LABS: Hematocrit 35.7 % (37.0-47.0); Hemoglobin 11.1 g/dL (12.0-15.0); Mean Corpuscular HGB Conc 31.1 g/dl (32-36); Mean Corpuscular Hemoglobin 25.9 pg (26-34); Mean Corpuscular Volume 83.4 fl (80-100); Mean Platelet Volume 12.4 fl (7.4-10.4); Platelet Count Result 184 k/mm3 (150-375); Red Blood Count 4.28 M/mm3 (4.2-5.4)
[2021-03-19 07:10] LABS: Anion Gap 10 mmol/L (8-16); Blood Urea Nitrogen 29 mg/dL (7-17); Calcium 8.6 mg/dL (8.4-10.2); Carbon Dioxide 25 mmol/L (22-30); Chloride 100 mmol/L (98-107); Estimated CRCL calculation 76 ml/min; Estimated Glomerular Filt Rate > 60; Glucose 125 mg/dL (65-110); Magnesium 1.9 mg/dL (1.6-2.3); Potassium 4.4 mmol/L (3.4-5.0); Sodium 135 mmol/L (137-145)
--- NOTE | 2021-03-19 09:03 | PCPTNOTE ---
Saw patient for physical therapy evaluation. She is non-responsive to stimuli and cannot be aroused. She does not follow commands. I performed passive ROM of shoulders, elbows, wrists, fingers, ankles, and knees none of which aroused her enough to participate in the activity. She does demonstrate some mild contractures of left fingers, but otherwise has good PROM of all other joints assessed. Considering that patient is currently in an acute care setting, skilled physical therapy intervention will not create measurable change in her functional status. PROM can be performed by a non-skilled person as there are no precautions for joint motion. Physical therapy will not continue to follow at this time.
[2021-03-19] MEDS: LORATADINE 10 MG TABLET FEED TUBE (10:15)
[2021-03-19] MEDS: SACCHAROMYCES BOULARDII 250 MG CAPSULE FEED TUBE ×2 (10:15→16:43)
[2021-03-19] MEDS: ERGOCALCIFEROL 50,000 UNIT CAPSULE 50000 UNITS FEED TUBE (10:15)
[2021-03-19] MEDS: ASCORBIC ACID 500 MG TABLET FEED TUBE (10:15)
[2021-03-19] MEDS: guaiFENesin 200 MG/10 ML UDC FEED TUBE ×2 (10:16→16:43)
[2021-03-19] MEDS: CHLORHEXIDINE GLUCONATE 0.12% ORAL RINSE 473 ML BTL (*BKC) 15 ML SWISH/SPIT ×2 (10:20→21:40)
[2021-03-19 11:50] LABS: Glucose Point of Care 114 mg/dl (65-105)
--- NOTE | 2021-03-19 16:33 | PM.IMPN ---
Progress Note: A&P Assessment and Plan (1) Seizure: Code(s): R56.9 - Unspecified convulsions Status: Acute Assessment and Plan: 76-year-old female with history of brain mass, dementia, admitted with seizure CT of head with no acute findings Seizure precautions Neurology was consulted, no anticonvulsants at this time Continue to monitor 03/15/2021 interval history, patient is 76-year-old female with history of brain mass currently admitted with a suspected aspiration pneumonia concerning for sepsis seen by platen grinder being treated with ertapenem and vancomycin blood culture and MRSA are negative, patient remains clinically stable unfortunately unable to provide any review of symptoms or history, chest x-ray done yesterday showed persistent pneumonia, will switch DuoNeb as scheduled and have PT OT work with the patient. will continue to monitor and further recommendation to follow. 03/16/2021 interval history, admitte on 03/10 patient is 76-year-old female with history of brain mass chronically on dexamethasone 6mg q6, currently admitted with a suspected aspiration pneumonia concerning for sepsis seen by platen grinder being treated with ertapenem day 7/10 and vancomycin day 4, MRSA is negative, blood culture no growth so far, has elevated WBC 2/2 steroid, D/W platen grinder today suspect elevated latic acid most likely 2/2 to brain mass resulting in respiratory alkolosis which can cause elevated lactic acid, recommended to continue Ertapenem for total 10 days, patient remains clinically stable unfortunately unable to provide any review of symptoms or history, chest x-ray done yesterday showed persistent pneumonia, will switch DuoNeb as scheduled and have PT OT work with the patient. will continue to monitor and further recommendation to follow. Called [phone] left message. 03/17/2021 interval history, admitte on 03/10 patient remains clinically stable, unable to provide detail review of symptoms her white counts elevated compared to his baseline due to steroid, however patient does not have any fever will repeat chest x-ray and repeat blood culture, will continue present management with a ertapenem and vancomycin, will continue to monitor and further recommendation to follow. 03/18/2021 interval history, admitte on 03/10 patient remains clinically stable, unable to provide detail review of symptoms her white counts were elevated on 03/17 compared to her baseline due to steroid, steroids were stopped on 03/17 her WBC slightly lower today, repeat chest x-rays today showed improvement, blood culture done on 03/10 and repeat blood culture done on 03/17 still no growth and patient does not have any fever, Patient is seen by Dr. Hinds, Pulmonogist and in contact with the family, will continue present management with a ertapenem and vancomycin once IV is establish, I agree with Dr. Hinds, family may consider hospice for the patient as her quality of life has not improved since last year patient was seen. , will continue to monitor and further recommendation to follow 03/19/2021 interval history, admitted on 03/10 patient remains clinically stable, unable to provide detail review of symptoms her white counts were elevated on 03/17 compared to her baseline due to steroid, steroids were stopped on 03/17 her WBC slightly lower today, repeat chest x-rays 03/18 showed improvement, blood culture done on 03/10 and repeat blood culture done on 03/17 still no growth and patient does not have any fever, Patient is seen by Dr. Hinds, Pulmonogist and in contact with the family, will continue present management with a ertapenem and vancomycin once IV is establish, will continue to monitor. 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
--- NOTE | 2021-03-19 17:00 | PM.PNPUL ---
Progress Note: A&P Assessment and Plan (1) Aspiration pneumonia: Qualifiers: Aspiration pneumonia type: unspecified Laterality: right Lung location: lower lobe of lung Qualified Code(s): J69.0 - Pneumonitis due to inhalation of food and vomit Code(s): J69.0 - Pneumonitis due to inhalation of food and vomit Status: Acute Assessment and Plan: 76-year-old female with history of brain mass, dementia, admitted following episode of seizures. Unclear whether she has aspirated. Chest imaging studies showed possible left lower lobe infiltrate possible subsegmental atelectasis and tiny pleural effusion. The patient was found to have elevated lactic acid and because of borderline blood pressure received antibiotics for possible sepsis. she also had respiratory alkalosis and mild elevation in lactic acid. Serum bicarbonate was also slightly lower. all these abnormalities have corrected. Last chest x-ray showed no clear-cut evidence of new infiltrates. She is currently hemodynamically stable. Patient is at high risk to develop nosocomial infection. Repeat chest x-ray in a.m.. Unclear whether leukocytosis is related to recent dexamethasone use. Repeat CBC. (2) Seizure: Code(s): R56.9 - Unspecified convulsions Status: Acute (3) Leukocytosis: Qualifiers: Leukocytosis type: unspecified Qualified Code(s): D72.829 - Elevated white blood cell count, unspecified Code(s): D72.829 - Elevated white blood cell count, unspecified Status: Acute (4) Brain tumor: Code(s): D49.6 - Neoplasm of unspecified behavior of brain Status: Acute (5) Dementia: Qualifiers: Dementia type: unspecified type Dementia behavioral disturbance: without behavioral disturbance Qualified Code(s): F03.90 - Unspecified dementia without behavioral disturbance Code(s): F03.90 - Unspecified dementia without behavioral disturbance Status: Acute (6) Sepsis: Qualifiers: Sepsis type: sepsis due to unspecified organism Sepsis acute organ dysfunction status: with acute organ dysfunction Severe sepsis acute organ dysfunction type: acute respiratory failure Acute respiratory failure type: unspecified Severe sepsis shock status: with septic shock Qualified Code(s): A41.9 - Sepsis, unspecified organism; R65.21 - Severe sepsis with septic shock; J96.00 - Acute respiratory failure, unspecified whether with hypoxia or hypercapnia Code(s): A41.9 - Sepsis, unspecified organism Status: Acute (7) Chronic respiratory alkalosis: Code(s): E87.3 - Alkalosis Status: Acute Subjective Date/time seen: 03/19/21 17:00 no significant change in patient's respiratory status. She remains on room air. She is off antibiotics and dexamethasone. She is nonverbal. She continues to have leukocytosis There has been no significant change in gas exchange. She has SCDs on for DVT prophylaxis. Exam Narrative: GENERAL APPEARANCE: Elderly female in bed nonverbal, flaccid left side, keeping eyes open with left gaze preference. Has some gurgling from upper airway. SKIN: Inspection of the skin reveals no rashes, ulcerations or petechiae. HEENT: Sclerae anicteric and conjunctivae pink and moist. CHEST: Normal AP diameter and normal contour without any kyphoscoliosis LUNGS: Auscultation of the lungs revealed scattered rhonchi anteriorly no wheezing. CARDIAC: There was a regular rate and rhythm without any murmurs, gallops, rubs. ABDOMEN: Soft with normal bowel sounds. PEG in place. Tolerating tube feeds. EXTREMITIES: No cyanosis or clubbing, some hand edema. NEUROLOGIC: noncommunicative, keeps eyes open. Objective Data Vital Signs Vital Signs: Vital Signs - 24 hr 03/18/21 20:00 03/18/21 20:41 03/19/21 00:00 Temperature 36.2 C L Pulse Rate 81 83 102 H Respiratory Rate 18 Blood Pressure 115/75 Pulse Oximetry 96 03/19/21 02:14 03/19/21
[2021-03-19 17:27] LABS: Glucose Point of Care 136 mg/dl (65-105)
[2021-03-19] MEDS: BACLOFEN 5 MG TABLET FEED TUBE (21:40)
[2021-03-19 21:51] LABS: Glucose Point of Care 143 mg/dl (65-105)
[2021-03-19] MEDS: LORazepam INJ (*CRX) 2 MG/ML VIAL 1 MG IM (22:31)
[2021-03-19] MEDS: TOPIRAMATE 25 MG TABLET BY MOUTH (22:36)
[2021-03-20] VITALS (12 sets, daily range): BP systolic 103–105; BP diastolic 57–81; PULSE 92–124; RESP 18–28; TEMP 36.4–38.3; O2SAT 94–97
--- NOTE | 2021-03-20 03:48 | PCRCNOTE ---
past scheduled time for administration- see next available administration
[2021-03-20 06:12] LABS: Glucose Point of Care 143 mg/dl (65-105)
[2021-03-20 06:12] LABS: Glucose Point of Care 158 mg/dl (65-105)
[2021-03-20] MEDS: INSULIN ASPART (*BKC) 100 UNITS/ML SUB-Q (06:16)
[2021-03-20] MEDS: LANSOPRAZOLE ORAL SUSP 30 MG/10 ML ORAL.SUSP FEED TUBE (06:22)
[2021-03-20 07:44] LABS: Basophils Percent Auto 0.2 % (0.2-1.2); Eosinophils Absolute Auto 0.4 K/mm3 (0-0.3); Eosinophils Percent Auto 2.3 % (0-4.4); Hematocrit 34.7 % (37.0-47.0); Hemoglobin 10.9 g/dL (12.0-15.0); Immature Granulocyte Absolute 0.24 K/mm3 (0.00-0.031); Immature Granulocyte Percent A 1.3 % (0-0.5); Lymphocytes Absolute Auto 4.03 K/mm3 (0.9-3.2); Lymphocytes Percent Auto 21.5 % (18.3-44.2); Mean Corpuscular HGB Conc 31.4 g/dl (32-36); Mean Corpuscular Hemoglobin 26.9 pg (26-34); Mean Corpuscular Volume 85.7 fl (80-100); Mean Platelet Volume 9.5 fl (7.4-10.4); Monocytes Absolute Auto 1.1 K/mm3 (0.1-0.6); Monocytes Percent Auto 5.6 % (2.6-8.5); Neutrophils Absolute Auto 12.9 K/mm3 (1.3-6.7); Neutrophils Percent Auto 69.1 % (45.5-73.1); Platelet Count Result 244 k/mm3 (150-375); Red Blood Count 4.05 M/mm3 (4.2-5.4); Red Cell Distribution Width 18.5 % (11.5-14.5); White Blood Count 18.7 K/mm3 (4.5-10.0)
[2021-03-20 07:51] LABS: Anion Gap 9 mmol/L (8-16); Blood Urea Nitrogen 22 mg/dL (7-17); Calcium 8.9 mg/dL (8.4-10.2); Carbon Dioxide 27 mmol/L (22-30); Chloride 101 mmol/L (98-107); Estimated CRCL calculation 64 ml/min; Estimated Glomerular Filt Rate > 60; Glucose 133 mg/dL (65-110); Magnesium 2.1 mg/dL (1.6-2.3); Potassium 4.1 mmol/L (3.4-5.0); Sodium 137 mmol/L (137-145)
[2021-03-20] MEDS: LORATADINE 10 MG TABLET FEED TUBE (07:55)
[2021-03-20] MEDS: SACCHAROMYCES BOULARDII 250 MG CAPSULE FEED TUBE ×2 (07:55→18:13)
[2021-03-20] MEDS: CHLORHEXIDINE GLUCONATE 0.12% ORAL RINSE 473 ML BTL (*BKC) 15 ML SWISH/SPIT ×2 (07:55→19:43)
[2021-03-20] MEDS: TOPIRAMATE 25 MG TABLET BY MOUTH (07:55)
[2021-03-20] MEDS: ASCORBIC ACID 500 MG TABLET FEED TUBE (07:55)
[2021-03-20] MEDS: guaiFENesin 200 MG/10 ML UDC FEED TUBE ×2 (07:55→18:13)
[2021-03-20] MEDS: ALBUTEROL SULFATE NEB 2.5 MG/0.5 ML INH INHALATION ×2 (10:30→13:11)
--- NOTE | 2021-03-20 12:07 | PCNFU ---
Nutrition Follow-Up Complete: Swallowing difficulties related to dysphagia, seizure, brain tumor, and aspiration as evidenced by tube feeding Goal: Meet nutritional needs Pt is meeting goal. Pt current nutrition is Glucerna 1.2 at 60mL/hr over 22 hours. Last recorded weight is 68 kg, up from 65.2kg recorded 03/18/21. Bowel Motility: +BM 03/19 Labs Reviewed: hgb 10.9, hct 34.7, BUN 22, Cr 0.60, Glu 133 Meds Noted: vitamin c, peridex, guaifenesin, novolog, pervacid, florastor Skin: perineum Additional Notes: Per EMR, pt is on a tube feeding diet of Glucerna 1.2 running at 60mL/hr over 22 hours, providing 1584kcal, 79g protein, 1062mL of water, meeting 100% of kcal and protein needs. Per EMR, pt is tolerating current tube feeding diet and rate. Agree with diet order at this time. Will continue to follow. Monitor labs, medications, wt, and residuals every T/F
[2021-03-20 12:38] LABS: Glucose Point of Care 116 mg/dl (65-105)
--- NOTE | 2021-03-20 13:20 | PM.IMPN ---
Progress Note: A&P Assessment and Plan (1) Seizure: Code(s): R56.9 - Unspecified convulsions Status: Acute Assessment and Plan: 76-year-old female with history of brain mass, dementia, admitted with seizure CT of head with no acute findings Seizure precautions Neurology was consulted, no anticonvulsants at this time Continue to monitor 03/15/2021 interval history, patient is 76-year-old female with history of brain mass currently admitted with a suspected aspiration pneumonia concerning for sepsis seen by seating and mobility technologist being treated with ertapenem and vancomycin blood culture and MRSA are negative, patient remains clinically stable unfortunately unable to provide any review of symptoms or history, chest x-ray done yesterday showed persistent pneumonia, will switch DuoNeb as scheduled and have PT OT work with the patient. will continue to monitor and further recommendation to follow. 03/16/2021 interval history, admitte on 03/10 patient is 76-year-old female with history of brain mass chronically on dexamethasone 6mg q6, currently admitted with a suspected aspiration pneumonia concerning for sepsis seen by seating and mobility technologist being treated with ertapenem day 7/10 and vancomycin day 4, MRSA is negative, blood culture no growth so far, has elevated WBC 2/2 steroid, D/W seating and mobility technologist today suspect elevated latic acid most likely 2/2 to brain mass resulting in respiratory alkolosis which can cause elevated lactic acid, recommended to continue Ertapenem for total 10 days, patient remains clinically stable unfortunately unable to provide any review of symptoms or history, chest x-ray done yesterday showed persistent pneumonia, will switch DuoNeb as scheduled and have PT OT work with the patient. will continue to monitor and further recommendation to follow. Called [phone] left message. 03/17/2021 interval history, admitte on 03/10 patient remains clinically stable, unable to provide detail review of symptoms her white counts elevated compared to his baseline due to steroid, however patient does not have any fever will repeat chest x-ray and repeat blood culture, will continue present management with a ertapenem and vancomycin, will continue to monitor and further recommendation to follow. 03/18/2021 interval history, admitte on 03/10 patient remains clinically stable, unable to provide detail review of symptoms her white counts were elevated on 03/17 compared to her baseline due to steroid, steroids were stopped on 03/17 her WBC slightly lower today, repeat chest x-rays today showed improvement, blood culture done on 03/10 and repeat blood culture done on 03/17 still no growth and patient does not have any fever, Patient is seen by Dr. Hinds, Pulmonogist and in contact with the family, will continue present management with a ertapenem and vancomycin once IV is establish, I agree with Dr. Hinds, family may consider hospice for the patient as her quality of life has not improved since last year patient was seen. , will continue to monitor and further recommendation to follow 03/19/2021 interval history, admitted on 03/10 patient remains clinically stable, unable to provide detail review of symptoms her white counts were elevated on 03/17 compared to her baseline due to steroid, steroids were stopped on 03/17 her WBC slightly lower today, repeat chest x-rays 03/18 showed improvement, blood culture done on 03/10 and repeat blood culture done on 03/17 still no growth and patient does not have any fever, Patient is seen by Dr. Hinds, Pulmonogist and in contact with the family, will continue present management with a ertapenem and vancomycin once IV is establish, will continue to monitor. 03/20 Neurology reconsulted; family is requested a repeat ECG (2) Brain mass: Code(s): G93.89 - Other specified disorders of brain Status: Acute Assessment and Plan: Rpt ct head shows - Large infiltrative calcified mass consistent with
--- NOTE | 2021-03-20 13:57 | PM.PNPUL ---
Progress Note: A&P Assessment and Plan (1) Aspiration pneumonia: Qualifiers: Aspiration pneumonia type: unspecified Laterality: right Lung location: lower lobe of lung Qualified Code(s): J69.0 - Pneumonitis due to inhalation of food and vomit Code(s): J69.0 - Pneumonitis due to inhalation of food and vomit Status: Acute Assessment and Plan: 76-year-old female with history of brain mass, dementia, admitted following episode of seizures. Unclear whether she has aspirated. Chest imaging studies showed possible left lower lobe infiltrate possible subsegmental atelectasis and tiny pleural effusion. The patient was found to have elevated lactic acid and because of borderline blood pressure received antibiotics for possible sepsis. she also had respiratory alkalosis and mild elevation in lactic acid. Serum bicarbonate was also slightly lower. all these abnormalities have corrected. Last chest x-ray showed no clear-cut evidence of new infiltrates. She is currently hemodynamically stable. She is off antibiotics with WBC trending down. Venous Doppler of lower extremities showed left DVT below-knee, involving peroneal vein. The patient is at high risk to develop a pulmonary embolism. although this is a below-knee DVT, it is very likely that it may propagate and involve the leg veins above knee. given the history of a brain tumor the patient is not a candidate for anticoagulation at this point. in this particular setting, patients with better prognosis are usually treated with inferior vena cava filter interaction. The case was discussed with the hospitalist, who is going to call the family and discuss options available. As stated above I would not recommend anticoagulation or inferior vena cava interruption as patient is a candidate for hospice care. Dr. Bateman, the hospitalist will call family and discuss it best options available for this unfortunate patient. (2) Seizure: Code(s): R56.9 - Unspecified convulsions Status: Acute (3) Leukocytosis: Qualifiers: Leukocytosis type: unspecified Qualified Code(s): D72.829 - Elevated white blood cell count, unspecified Code(s): D72.829 - Elevated white blood cell count, unspecified Status: Acute (4) Brain tumor: Code(s): D49.6 - Neoplasm of unspecified behavior of brain Status: Acute (5) Dementia: Qualifiers: Dementia behavioral disturbance: without behavioral disturbance Dementia type: unspecified type Qualified Code(s): F03.90 - Unspecified dementia without behavioral disturbance Code(s): F03.90 - Unspecified dementia without behavioral disturbance Status: Acute (6) Sepsis: Qualifiers: Acute respiratory failure type: unspecified Sepsis acute organ dysfunction status: with acute organ dysfunction Sepsis type: sepsis due to unspecified organism Severe sepsis acute organ dysfunction type: acute respiratory failure Severe sepsis shock status: with septic shock Qualified Code(s): A41.9 - Sepsis, unspecified organism; R65.21 - Severe sepsis with septic shock; J96.00 - Acute respiratory failure, unspecified whether with hypoxia or hypercapnia Code(s): A41.9 - Sepsis, unspecified organism Status: Acute (7) Chronic respiratory alkalosis: Code(s): E87.3 - Alkalosis Status: Acute (8) DVT (deep venous thrombosis): Code(s): I82.409 - Acute embolism and thrombosis of unspecified deep veins of unspecified lower extremity Status: Acute Subjective Date/time seen: 03/20/21 13:57 There has been no significant change in respiratory status over the last 24 hours. The patient remaining on room air. Has been afebrile off antibiotics. Review of Systems Review of Systems: ROS unobtainable: Yes unobtainable due to medical condition Exam Narrative: GENERAL APPEARANCE: Elderly female in bed nonverbal, flaccid left side, keeping eyes
[2021-03-20] MEDS: TOPIRAMATE 25 MG TABLET 50 MG BY MOUTH (19:41)
[2021-03-20] MEDS: BACLOFEN 5 MG TABLET FEED TUBE (19:43)
[2021-03-20] MEDS: LORazepam INJ (*CRX) 2 MG/ML VIAL IV PUSH (20:13)
[2021-03-20] MEDS: ACETAMINOPHEN ELIXIR 325 MG/10.15 ML UDC 650 MG FEED TUBE (20:18)
[2021-03-20 20:38] LABS: Glucose Point of Care 146 mg/dl (65-105)
[2021-03-20] MEDS: INSULIN GLARGINE (*BKC) 100 UNITS/ML 30 UNITS SUB-Q (20:38)
[2021-03-20 20:50] LABS: Glucose Point of Care 141 mg/dl (65-105)
--- NOTE | 2021-03-20 22:21 | PCRCNOTE ---
past scheduled time for administration, see next available administration
[2021-03-21] VITALS (15 sets, daily range): BP systolic 95–109; BP diastolic 36–50; PULSE 90–122; RESP 18–26; TEMP 36.1–37.2; O2SAT 93–97
[2021-03-21] MEDS: ALBUTEROL SULFATE NEB 2.5 MG/0.5 ML INH INHALATION ×3 (02:49→22:09)
[2021-03-21] MEDS: LORazepam INJ (*CRX) 2 MG/ML VIAL IV PUSH ×3 (06:29→16:07)
[2021-03-21] MEDS: LANSOPRAZOLE ORAL SUSP 30 MG/10 ML ORAL.SUSP FEED TUBE (06:34)
[2021-03-21 06:41] LABS: Glucose Point of Care 151 mg/dl (65-105)
[2021-03-21] MEDS: INSULIN ASPART (*BKC) 100 UNITS/ML SUB-Q ×3 (06:42→17:46)
[2021-03-21 07:36] LABS: Hematocrit 33.5 % (37.0-47.0); Hemoglobin 10.3 g/dL (12.0-15.0); Mean Corpuscular HGB Conc 30.7 g/dl (32-36); Mean Corpuscular Hemoglobin 26.5 pg (26-34); Mean Corpuscular Volume 86.1 fl (80-100); Mean Platelet Volume 10.1 fl (7.4-10.4); Platelet Count Result 206 k/mm3 (150-375); Red Blood Count 3.89 M/mm3 (4.2-5.4); Red Cell Distribution Width 18.7 % (11.5-14.5); White Blood Count 16.3 K/mm3 (4.5-10.0)
[2021-03-21 07:49] LABS: Anion Gap 10 mmol/L (8-16); Blood Urea Nitrogen 21 mg/dL (7-17); Calcium 8.8 mg/dL (8.4-10.2); Carbon Dioxide 23 mmol/L (22-30); Chloride 104 mmol/L (98-107); Estimated CRCL calculation 64 ml/min; Estimated Glomerular Filt Rate > 60; Glucose 156 mg/dL (65-110); Magnesium 2.2 mg/dL (1.6-2.3); Potassium 3.9 mmol/L (3.4-5.0); Sodium 137 mmol/L (137-145)
[2021-03-21] MEDS: ASCORBIC ACID 500 MG TABLET FEED TUBE (09:02)
[2021-03-21] MEDS: SACCHAROMYCES BOULARDII 250 MG CAPSULE FEED TUBE ×2 (09:02→16:12)
[2021-03-21] MEDS: guaiFENesin 200 MG/10 ML UDC FEED TUBE ×2 (09:02→16:12)
[2021-03-21] MEDS: TOPIRAMATE 25 MG TABLET 50 MG BY MOUTH (09:03)
[2021-03-21] MEDS: CHLORHEXIDINE GLUCONATE 0.12% ORAL RINSE 473 ML BTL (*BKC) 15 ML SWISH/SPIT ×2 (09:04→22:21)
[2021-03-21] MEDS: LORATADINE 10 MG TABLET FEED TUBE (09:04)
--- NOTE | 2021-03-21 11:42 | PCRCNOTE ---
Window of time for administration has passed. See next scheduled administration.
[2021-03-21 12:17] LABS: Glucose Point of Care 176 mg/dl (65-105)
--- NOTE | 2021-03-21 12:43 | WPDNEUROPN ---
Progress Note: A&P Additional Plan unchanged neurological status with recent complication of DVT for which plaster foreman discussion with the family has been noted and also family wishes to repeat the EEG and consider different anticonvulsants Subjective Date/time seen: 03/21/21 12:43 76 years old right-handed female admitted to [facility] through the ER where she was brought by the EMS from nursing for the evaluation of seizure she was reportedly is staring off to the left side subsequently it progressed to full blown tonic-clonic generalized seizures for which she was treated appropriately in the ambulance. She has ongoing history of calcified anaplastic oligodendroglioma, loaded with Keppra and subsequently admitted, patient's family was reluctant to continue Keppra and she was started on different anticonvulsants family preferred Lamictal or Topamax, patient has been seen by the oncologist also for the ongoing diagnosis of oligodendroglioma, patient has remained unresponsive throughout with ongoing multiple medical problems that is 1. Chronic indwelling Hodge's catheter 2. Dementia 3. Dysphagia with PEG tube in situ next renal stones neck is insulin-dependent type 2 diabetes mellitus and neck is history of craniotomy with right frontal lobe craniotomy for the resection of the oligodendroglioma, patient has been followed by the plaster foreman for aspiratio, by cardiologists a bradycardia, she has been found to have DVT for which anticoagulation therapy is necessary but because of the history of the brain 2 the plaster foreman had made the [place] contact with the family and they did not want to place a filter if anticoagulation is safer they will prefer to continue patient family has requested a repeat EEG Review of Systems Review of Systems: All systems reviewed & are unremarkable except as noted in HPI and below Exam Const: General: ill appearing and patient obtunded Nutritional Appearance: average body habitus Orientation/consciousness: patient obtunded Limitations: behavioral limitations and physical limitations HENMT: General nose exam: Normal external nose present Face and sinus: normal facial exam Mouth: Yes Normal oral and palatal mucosa present Eyes: Visual Herbert: abnormal by confrontation Pupils: Irregular pupils EOM: movement deficit Neck: Carotids: normal carotid upstroke Resp: Effort & Inspection: decreased respiratory effort Cardio: Rate: regular rate Neuro: Cranial nerves: Yes Nystagmus not present and Yes hard of hearing Cognition (Neuro): abnormal cognition Speech: Abnormal speech present Gait exam (Neuro): Unable to assess gait Sensory Exam: Sensory deficit (Neuro) Deep tendon reflexes (DTR's): Right triceps reflex intensity grade: 1+, Left triceps reflex intensity grade: 2+, Rt Biceps (C5, C6): 1+, Left biceps reflex intensity grade: 2+, Right brachioradialis reflex intensity grade: 1+, Left brachioradialis reflex intensity grade: 2+, Right patellar reflex intensity grade: 1+, Left patellar reflex intensity grade: 2+, Right ankle reflex intensity grade: 1+ and Left ankle reflex intensity grade: 2+ Plantar Reflex Responses: equivocal: bilateral Psych: Appearance: disheveled Objective Data Vital Signs Vital Signs: Vital Signs - 24 hr 03/20/21 13:14 03/20/21 13:25 03/20/21 14:00 Temperature 36.6 C Pulse Rate 95 92 123 H Respiratory Rate 20 20 28 H Blood Pressure 103/75 Pulse Oximetry 95 97 03/20/21 16:00 03/20/21 20:00 03/20/21 20:18 Temperature 38.3 C H Pulse Rate 109 H 124 H Respiratory Rate Blood Pressure Pulse Oximetry 03/20/21 22:00 03/21/21 00:00 03/21/21 02:50 Temperature 37.6 C H Pulse Rate 94 115 H 90 Respiratory Rate 24 H 20 Blood Pressure 105/81 Pulse Oximetry 94 03/21/21 03:00 03/21/21 04:00 03/21/21 06:00 Temperature 36.9 C Pulse Rate 90 99 120 H Respiratory Rate 20 26 H Blood Pressure 106/36 L Pulse Oximetry 93 Intake/Output Intake
--- NOTE | 2021-03-21 16:14 | PM.PNPUL ---
Progress Note: A&P Assessment and Plan (1) Left leg DVT: Code(s): I82.402 - Acute embolism and thrombosis of unspecified deep veins of left lower extremity Status: Acute Assessment and Plan: Patient with a history of seizures and brain cancer and now with a below the knee left lower extremity DVT. Neurology has been consulted to provide an opinion about the safety of therapeutic anticoagulation for her below knee DVT. if they feel she can safely be fully anticoagulated then I would treat her DVT with full-dose anticoagulation for 6 months given her history of cancer and bed-bound state. Follow-up ultrasound in the future to ensure that there is no progression while she is and anticoagulated. If Neurology states her brain cancer and seizures preclude her from therapeutic anticoagulation then I would follow her left lower extremity DVT for progression as the family and POA do not wish for an IVC filter at this time. If this DVT progresses I would readdress the progression with the family at that time and the recommendation for and IVC filter. Discussed with Dr. Pena, will sign off, please call with any additional questions. Subjective Date/time seen: 03/21/21 16:14 Interval history: 03/21 Patient remains on room air with saturations 93%. Patient is nonverbal and aphasic sh not following any commands at this time. She is off antibiotics. Neurology has been consulted to provide an opinion about the safety of therapeutic anticoagulation for her below knee DVT. Review of Systems Review of Systems: ROS unobtainable: Yes unobtainable due to medical condition Exam Const: General: no acute distress and ill appearing Orientation/consciousness: oriented to person, oriented to place and oriented to time HENMT: Head: normal to inspection Ears: hearing grossly normal bilaterally Mouth: Yes Normal oral and palatal mucosa present Throat: tonsils absent Eyes: General: appearance normal, both eyes and all related structures Neck: Neck: normal visual inspection Chest: Chest palpation & inspection: normal inspection of the chest Resp: Effort & Inspection: normal respiratory effort Auscultation: no crackles, no rales, no rhonchi and no wheezes Cardio: Jugular venous distension: no JVD GI: Inspection: normal to inspection Skin: General skin exam: normal color Neuro: General: oriented to place Extrem: General: normal to inspection Psych: Appearance: grossly normal Objective Data Vital Signs Vital Signs: Vital Signs - 24 hr 03/20/21 20:00 03/20/21 20:18 03/20/21 22:00 Temperature 38.3 C H 37.6 C H Pulse Rate 124 H 94 Respiratory Rate 24 H Blood Pressure 105/81 Pulse Oximetry 94 03/21/21 00:00 03/21/21 02:50 03/21/21 03:00 Temperature Pulse Rate 115 H 90 90 Respiratory Rate 20 20 Blood Pressure Pulse Oximetry 03/21/21 04:00 03/21/21 06:00 03/21/21 08:03 Temperature 36.9 C Pulse Rate 99 120 H 122 H Respiratory Rate 26 H Blood Pressure 106/36 L Pulse Oximetry 93 03/21/21 12:03 03/21/21 14:00 03/21/21 15:22 Temperature 37.2 C Pulse Rate 104 H 100 104 H Respiratory Rate 18 24 H Blood Pressure 109/41 L Pulse Oximetry 95 97 03/21/21 15:29 Temperature Pulse Rate 101 H Respiratory Rate 20 Blood Pressure Pulse Oximetry Intake/Output Intake/Output: Intake & Output 03/18/21 03/19/21 03/20/21 03/21/21 23:59 23:59 23:59 23:59 Intake Total 690 665 952 0 Balance 690 665 952 0 Meds/Results Medications: Active Medications Generic Name Dose Route Start Last Admin Trade Name Freq PRN Reason Stop Dose Admin Acetaminophen 650 mg 03/08/21 18:56 03/20/21 20:18 Acetaminophen Elixir 325 Mg/10.15 Ml Udc FEED TUBE 650 mg Q8H PRN Administration Mild Pain (1-3) Albuterol 2.5 mg 03/18/21 20:00 03/21/21 15:22 Albuterol Sulfate Neb 2.5 Mg/0.5 Ml Inh INHALATION 2.5 mg Q6HRT BRYCE Administration Ascorbic Acid
--- NOTE | 2021-03-21 17:23 | PM.IMPN ---
Progress Note: A&P Assessment and Plan (1) Seizure: Code(s): R56.9 - Unspecified convulsions Status: Acute Assessment and Plan: 76-year-old female with history of brain mass, dementia, admitted with seizure CT of head with no acute findings Seizure precautions Neurology was consulted, no anticonvulsants at this time Continue to monitor 03/15/2021 interval history, patient is 76-year-old female with history of brain mass currently admitted with a suspected aspiration pneumonia concerning for sepsis seen by microbiology lab analyst being treated with ertapenem and vancomycin blood culture and MRSA are negative, patient remains clinically stable unfortunately unable to provide any review of symptoms or history, chest x-ray done yesterday showed persistent pneumonia, will switch DuoNeb as scheduled and have PT OT work with the patient. will continue to monitor and further recommendation to follow. 03/16/2021 interval history, admitte on 03/10 patient is 76-year-old female with history of brain mass chronically on dexamethasone 6mg q6, currently admitted with a suspected aspiration pneumonia concerning for sepsis seen by microbiology lab analyst being treated with ertapenem day 7/10 and vancomycin day 4, MRSA is negative, blood culture no growth so far, has elevated WBC 2/2 steroid, D/W microbiology lab analyst today suspect elevated latic acid most likely 2/2 to brain mass resulting in respiratory alkolosis which can cause elevated lactic acid, recommended to continue Ertapenem for total 10 days, patient remains clinically stable unfortunately unable to provide any review of symptoms or history, chest x-ray done yesterday showed persistent pneumonia, will switch DuoNeb as scheduled and have PT OT work with the patient. will continue to monitor and further recommendation to follow. Called [phone] left message. 03/17/2021 interval history, admitte on 03/10 patient remains clinically stable, unable to provide detail review of symptoms her white counts elevated compared to his baseline due to steroid, however patient does not have any fever will repeat chest x-ray and repeat blood culture, will continue present management with a ertapenem and vancomycin, will continue to monitor and further recommendation to follow. 03/18/2021 interval history, admitte on 03/10 patient remains clinically stable, unable to provide detail review of symptoms her white counts were elevated on 03/17 compared to her baseline due to steroid, steroids were stopped on 03/17 her WBC slightly lower today, repeat chest x-rays today showed improvement, blood culture done on 03/10 and repeat blood culture done on 03/17 still no growth and patient does not have any fever, Patient is seen by Dr. Hinds, Pulmonogist and in contact with the family, will continue present management with a ertapenem and vancomycin once IV is establish, I agree with Dr. Hinds, family may consider hospice for the patient as her quality of life has not improved since last year patient was seen. , will continue to monitor and further recommendation to follow 03/19/2021 interval history, admitted on 03/10 patient remains clinically stable, unable to provide detail review of symptoms her white counts were elevated on 03/17 compared to her baseline due to steroid, steroids were stopped on 03/17 her WBC slightly lower today, repeat chest x-rays 03/18 showed improvement, blood culture done on 03/10 and repeat blood culture done on 03/17 still no growth and patient does not have any fever, Patient is seen by Dr. Hinds, Pulmonogist and in contact with the family, will continue present management with a ertapenem and vancomycin once IV is establish, will continue to monitor. 03/20 Neurology reconsulted; family is requested a repeat EEG 03/21 patient still with intermittent seizures. These seem intractable. Patient otherwise obtunded and no signs of improvement upon review of her extensive chart. Admitted on 03/10/2021 history of
[2021-03-21 17:43] LABS: Glucose Point of Care 196 mg/dl (65-105)
[2021-03-21 19:29] LABS: Glucose Point of Care 217 mg/dl (65-105)
[2021-03-21 22:19] LABS: Glucose Point of Care 212 mg/dl (65-105)
[2021-03-21] MEDS: BACLOFEN 5 MG TABLET FEED TUBE (22:20)
[2021-03-21] MEDS: INSULIN GLARGINE (*BKC) 100 UNITS/ML 30 UNITS SUB-Q (22:24)
[2021-03-21] MEDS: TOPIRAMATE 25 MG TABLET 50 MG XX (22:25)
[2021-03-22] VITALS (14 sets, daily range): BP systolic 94–116; BP diastolic 44–70; PULSE 85–118; RESP 15–32; TEMP 36.1–36.7; O2SAT 91–98
[2021-03-22] MEDS: INSULIN ASPART (*BKC) 100 UNITS/ML SUB-Q ×4 (01:02→17:38)
[2021-03-22 01:12] LABS: Glucose Point of Care 192 mg/dl (65-105)
[2021-03-22] MEDS: ALBUTEROL SULFATE NEB 2.5 MG/0.5 ML INH INHALATION ×2 (01:53→15:40)
[2021-03-22 06:46] LABS: Add Urine Microscopic? YES; Amorphous Sediment Urine Moderate; Appearance Urine Cloudy (Clear); Bacteria Urine Trace /hpf; Bilirubin Urine Negative (Negative); Blood Urine Negative (Negative); Color Urine Yellow (Yellow); Glucose Urine UA Negative (Negative); Ketones Urine Negative (Negative); Leukocyte Esterase Ur Trace LEU/UL (NEGATIVE); Mucus Urine Rare /lpf; Nitrate Urine Negative (Negative); Protein Urine Negative (Negative); Specific Grav Ur 1.009 (1.001-1.035); Squamous Epithelial Cell Urine Rare /hpf (Few); Urobilinogen Urine Negative mg/dL (<2.0); WBC Urine 0-3 /hpf (0-3)
[2021-03-22 06:57] LABS: Glucose Point of Care 220 mg/dl (65-105)
[2021-03-22] MEDS: LANSOPRAZOLE ORAL SUSP 30 MG/10 ML ORAL.SUSP FEED TUBE (06:58)
[2021-03-22 08:15] LABS: Hematocrit 32.9 % (37.0-47.0); Hemoglobin 10.2 g/dL (12.0-15.0); Mean Corpuscular Hemoglobin 26.2 pg (26-34); Mean Corpuscular Volume 84.4 fl (80-100); Mean Platelet Volume 10.7 fl (7.4-10.4); Platelet Count Result 147 k/mm3 (150-375); Red Cell Distribution Width 18.6 % (11.5-14.5); White Blood Count 14.4 K/mm3 (4.5-10.0)
[2021-03-22 08:27] LABS: Anion Gap 8 mmol/L (8-16); Blood Urea Nitrogen 21 mg/dL (7-17); Carbon Dioxide 22 mmol/L (22-30); Chloride 107 mmol/L (98-107); Estimated CRCL calculation 76 ml/min; Estimated Glomerular Filt Rate > 60; Glucose 226 mg/dL (65-110); Magnesium 2.1 mg/dL (1.6-2.3); Potassium 4.6 mmol/L (3.4-5.0); Sodium 137 mmol/L (137-145)
--- NOTE | 2021-03-22 09:46 | P.NEURO_ITS ---
Neurology EEG Report General Information Date of Study: 03/21/21 TEST eegt DIAGNOSIS seizure CONDITION OF RECORDING lethargic EEG NUMBER [id number] CLINICAL HISTORY brain tumor EEG DESCRIPTION Background rhythm consists of low to medium voltage 5 to 7 hertz per 2nd theta activity admixed with low to medium voltage 3 to 4 hertz per 2nd delta. Bihemispheric paroxysmal activity is noted more prominent on the right side as compared to the left ,hyperventilation not done ,photic stimulation not done. Recurrent episodes of paroxysmal rhythmic beta activity seen evolving into full- blown seizure activity bilaterally. paroxysmal. Focal. Lateralizing. IMPRESSION Severely abnormal record due to the presence of paroxysmal discharge starting over the right hemispheric linkages and evolving into the full-blown bihemispheric seizure activity. These abnormalities are suggestive of underlying seizure disorder with right hemispheric focus.
[2021-03-22] MEDS: CHLORHEXIDINE GLUCONATE 0.12% ORAL RINSE 473 ML BTL (*BKC) 15 ML SWISH/SPIT ×2 (10:31→22:44)
[2021-03-22] MEDS: TOPIRAMATE 25 MG TABLET 50 MG XX ×2 (10:33→15:53)
[2021-03-22] MEDS: SACCHAROMYCES BOULARDII 250 MG CAPSULE FEED TUBE ×2 (10:33→16:40)
[2021-03-22] MEDS: LORATADINE 10 MG TABLET FEED TUBE (10:33)
[2021-03-22] MEDS: ASCORBIC ACID 500 MG TABLET FEED TUBE (10:33)
[2021-03-22] MEDS: guaiFENesin 200 MG/10 ML UDC FEED TUBE ×2 (10:34→16:40)
--- NOTE | 2021-03-22 11:35 | PC.NURSE ---
Patient to MRI per stretcher at 0915 and returned at 1020.
--- NOTE | 2021-03-22 12:34 | WPDNEUROPN ---
Progress Note: A&P Additional Plan long discussion with the patient's family about the pros and cons of the underlying diagnosis, long-term complications and anticonvulsants, they have given the permission to increase the Topamax to control the seizure further and low dosage of preventive heparin in addition they will discuss among the different family members and get in touch with us for the further treatment plan Time Spent With Patient Time with patient: 15 - 25 minutes Subjective Date/time seen: 03/22/21 12:34 76 years old lady with 1. 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 Recent documentation of thrombosis of deep vein of left lower extremity 3. Recurrent electrical seizures or is knitting from the right hemisphere Reading to the contralateral hemisphere but not to the point of status focus epilepticus and clinically patient unchanged Review of Systems Review of Systems: All systems reviewed & are unremarkable except as noted in HPI and below Objective Data Vital Signs Vital Signs: Vital Signs - 24 hr 03/21/21 14:00 03/21/21 15:22 03/21/21 15:29 Temperature 37.2 C Pulse Rate 100 104 H 101 H Respiratory Rate 18 24 H 20 Blood Pressure 109/41 L Pulse Oximetry 95 97 03/21/21 16:00 03/21/21 20:00 03/21/21 21:46 Temperature 36.1 C L Pulse Rate 111 H 99 114 H Respiratory Rate 19 20 Blood Pressure 95/50 L Pulse Oximetry 95 95 03/21/21 22:09 03/21/21 22:20 03/22/21 00:00 Temperature Pulse Rate 99 111 H Respiratory Rate 19 18 Blood Pressure Pulse Oximetry 03/22/21 01:55 03/22/21 04:00 03/22/21 06:00 Temperature 36.6 C Pulse Rate 85 114 H 97 Respiratory Rate 15 18 Blood Pressure 100/51 L Pulse Oximetry 94 Intake/Output Intake/Output: Intake & Output 03/19/21 03/20/21 03/21/21 03/22/21 23:59 23:59 23:59 23:59 Intake Total 407 643 7150 Balance 267 150 4661 Meds/Results Medications: Active Medications Generic Name Dose Route Start Last Admin Trade Name Freq PRN Reason Stop Dose Admin Acetaminophen 650 mg 03/08/21 18:56 03/20/21 20:18 Acetaminophen Elixir 325 Mg/10.15 Ml Udc FEED TUBE 650 mg Q8H PRN Administration Mild Pain (1-3) Albuterol 2.5 mg 03/18/21 20:00 03/22/21 10:09 Albuterol Sulfate Neb 2.5 Mg/0.5 Ml Inh INHALATION Not Given Q6HRT BRYCE Ascorbic Acid 500 mg 03/09/21 09:00 03/22/21 10:33 Ascorbic Acid 500 Mg Tablet FEED TUBE 500 mg DAILY BRYCE Administration Baclofen 5 mg 03/08/21 21:00 03/21/21 22:20 Baclofen 5 Mg Tablet FEED TUBE 5 mg HS BRYCE Administration Bisacodyl 10 mg 03/08/21 18:56 Bisacodyl 10 Mg Suppository RECTAL DAILY PRN Constipation Chlorhexidine Gluconate 15 ml 03/08/21 21:00 03/22/21 10:31 Chlorhexidine Gluconate 0.12% Oral Rinse 473 Ml Btl (*Bkc) SWISH/SPIT 15 ml Q12HR BRYCE Administration Dextrose 12.5 gm 03/07/21 20:35 Dextrose 50% 25 Gm/50 Ml Syringe IV PUSH PRN PRN Hypoglycemia Protocol Diclofenac Sodium 1 applic 03/08/21 18:56 Diclofenac Sodium 1% 100 Gm Gel (*Bkc) TOPICAL Q12HR PRN LEFT HAND PAIN Ergocalciferol 50,000 unit 03/12/21 09:00 03/19/21 10:15 Ergocalciferol 50,000 Unit Capsule FEED TUBE 50,000 unit Mo@0900 BRYCE Administration Glucagon 1 mg 03/07/21 20:35 Glucagon For Inj 1 Mg Vial IM PRN PRN Hypoglycemia Protocol Glucose 15 gm 03/07/21 20:35 Glucose Oral Gel 15 Gm Of Glucse In 37.5 Gm Tube PO PRN PRN Hypoglycemia Protocol Guaifenesin 200 mg 03/19/21 09:00 03/22/21 10:34 Guaifenesin 200 Mg/10 Ml Udc FEED TUBE 200 mg BID BRYCE Administration
--- NOTE | 2021-03-22 12:42 | PM.IMPN ---
Progress Note: A&P Assessment and Plan (1) Seizure: Code(s): R56.9 - Unspecified convulsions Status: Acute Assessment and Plan: 76-year-old female with history of brain mass, dementia, admitted with seizure CT of head with no acute findings Seizure precautions Neurology was consulted, no anticonvulsants at this time Continue to monitor 03/15/2021 interval history, patient is 76-year-old female with history of brain mass currently admitted with a suspected aspiration pneumonia concerning for sepsis seen by veterans' coordinator being treated with ertapenem and vancomycin blood culture and MRSA are negative, patient remains clinically stable unfortunately unable to provide any review of symptoms or history, chest x-ray done yesterday showed persistent pneumonia, will switch DuoNeb as scheduled and have PT OT work with the patient. will continue to monitor and further recommendation to follow. 03/16/2021 interval history, admitte on 03/10 patient is 76-year-old female with history of brain mass chronically on dexamethasone 6mg q6, currently admitted with a suspected aspiration pneumonia concerning for sepsis seen by veterans' coordinator being treated with ertapenem day 7/10 and vancomycin day 4, MRSA is negative, blood culture no growth so far, has elevated WBC 2/2 steroid, D/W veterans' coordinator today suspect elevated latic acid most likely 2/2 to brain mass resulting in respiratory alkolosis which can cause elevated lactic acid, recommended to continue Ertapenem for total 10 days, patient remains clinically stable unfortunately unable to provide any review of symptoms or history, chest x-ray done yesterday showed persistent pneumonia, will switch DuoNeb as scheduled and have PT OT work with the patient. will continue to monitor and further recommendation to follow. Called [phone] left message. 03/17/2021 interval history, admitte on 03/10 patient remains clinically stable, unable to provide detail review of symptoms her white counts elevated compared to his baseline due to steroid, however patient does not have any fever will repeat chest x-ray and repeat blood culture, will continue present management with a ertapenem and vancomycin, will continue to monitor and further recommendation to follow. 03/18/2021 interval history, admitte on 03/10 patient remains clinically stable, unable to provide detail review of symptoms her white counts were elevated on 03/17 compared to her baseline due to steroid, steroids were stopped on 03/17 her WBC slightly lower today, repeat chest x-rays today showed improvement, blood culture done on 03/10 and repeat blood culture done on 03/17 still no growth and patient does not have any fever, Patient is seen by Dr. Hinds, Pulmonogist and in contact with the family, will continue present management with a ertapenem and vancomycin once IV is establish, I agree with Dr. Hinds, family may consider hospice for the patient as her quality of life has not improved since last year patient was seen. , will continue to monitor and further recommendation to follow 03/19/2021 interval history, admitted on 03/10 patient remains clinically stable, unable to provide detail review of symptoms her white counts were elevated on 03/17 compared to her baseline due to steroid, steroids were stopped on 03/17 her WBC slightly lower today, repeat chest x-rays 03/18 showed improvement, blood culture done on 03/10 and repeat blood culture done on 03/17 still no growth and patient does not have any fever, Patient is seen by Dr. Hinds, Pulmonogist and in contact with the family, will continue present management with a ertapenem and vancomycin once IV is establish, will continue to monitor. 03/20 Neurology reconsulted; family is requested a repeat EEG 03/21 patient still with intermittent seizures. These seem intractable. Patient otherwise obtunded and no signs of improvement upon review of her extensive chart. Admitted on 03/10/2021 history of
[2021-03-22 12:52] LABS: Glucose Point of Care 161 mg/dl (65-105)
[2021-03-22 16:54] LABS: Glucose Point of Care 179 mg/dl (65-105)
[2021-03-22] MEDS: BACLOFEN 5 MG TABLET FEED TUBE (22:43)
[2021-03-22] MEDS: HEPARIN SODIUM 5,000 UNITS/ML VIAL 5000 UNITS SUB-Q (22:44)
[2021-03-22] MEDS: TOPIRAMATE 100 MG TABLET XX (22:46)
[2021-03-22] MEDS: INSULIN GLARGINE (*BKC) 100 UNITS/ML 30 UNITS SUB-Q (22:55)
[2021-03-22 23:20] LABS: Glucose Point of Care 215 mg/dl (65-105)
[2021-03-23] VITALS (13 sets, daily range): BP systolic 108–118; BP diastolic 40–58; PULSE 88–130; RESP 14–32; TEMP 36.8–37.4; O2SAT 90–94
[2021-03-23] MEDS: ALBUTEROL SULFATE NEB 2.5 MG/0.5 ML INH INHALATION ×3 (01:25→20:11)
[2021-03-23 03:24] LABS: Glucose Point of Care 177 mg/dl (65-105)
[2021-03-23] MEDS: INSULIN ASPART (*BKC) 100 UNITS/ML SUB-Q ×3 (03:29→18:01)
[2021-03-23] MEDS: LANSOPRAZOLE ORAL SUSP 30 MG/10 ML ORAL.SUSP FEED TUBE (06:39)
[2021-03-23 06:52] LABS: Hematocrit 33.1 % (37.0-47.0); Mean Corpuscular HGB Conc 30.2 g/dl (32-36); Mean Corpuscular Hemoglobin 25.8 pg (26-34); Mean Corpuscular Volume 85.5 fl (80-100); Mean Platelet Volume 9.8 fl (7.4-10.4); Platelet Count Result 227 k/mm3 (150-375); Red Blood Count 3.87 M/mm3 (4.2-5.4); Red Cell Distribution Width 18.6 % (11.5-14.5); White Blood Count 13.6 K/mm3 (4.5-10.0)
[2021-03-23 07:05] LABS: Anion Gap 9 mmol/L (8-16); Blood Urea Nitrogen 18 mg/dL (7-17); Calcium 8.9 mg/dL (8.4-10.2); Carbon Dioxide 25 mmol/L (22-30); Chloride 106 mmol/L (98-107); Estimated CRCL calculation 76 ml/min; Estimated Glomerular Filt Rate > 60; Glucose 145 mg/dL (65-110); Magnesium 2.1 mg/dL (1.6-2.3); Potassium 3.4 mmol/L (3.4-5.0); Sodium 140 mmol/L (137-145)
[2021-03-23 07:28] LABS: Glucose Point of Care 138 mg/dl (65-105)
[2021-03-23] MEDS: CHLORHEXIDINE GLUCONATE 0.12% ORAL RINSE 473 ML BTL (*BKC) 15 ML SWISH/SPIT ×2 (07:59→22:52)
[2021-03-23] MEDS: LORATADINE 10 MG TABLET FEED TUBE (08:00)
[2021-03-23] MEDS: SACCHAROMYCES BOULARDII 250 MG CAPSULE FEED TUBE ×2 (08:00→18:04)
[2021-03-23] MEDS: guaiFENesin 200 MG/10 ML UDC FEED TUBE ×2 (08:00→18:03)
[2021-03-23] MEDS: HEPARIN SODIUM 5,000 UNITS/ML VIAL 5000 UNITS SUB-Q ×2 (08:00→22:53)
[2021-03-23] MEDS: TOPIRAMATE 100 MG TABLET XX ×2 (08:01→22:51)
[2021-03-23] MEDS: ASCORBIC ACID 500 MG TABLET FEED TUBE (08:01)
--- NOTE | 2021-03-23 12:15 | PCNFU ---
Nutrition Follow-Up Complete: Swallowing difficulties related to dysphagia, seizure, brain tumor, and aspiration as evidenced by tube feeding Goal: Meet nutritional needs Patient is progressing towards goal. No new goal at this time. Pt current nutrition is Glucerna 1.2 at 60 mls per hour over 22 hours per day with a 30 ml water flush Q4. Last recorded weight is 68 kg. Recommend re-weighing pt. prior to discharge. Bowel Motility: + BM 03/20/2021 Labs Reviewed: Hgb 10.0, Hct 33.1, BUN 18, Cr 0.50, Glu 145 Meds Noted: Albuterol, Vitamin C, Bisacodyl, Glucagon, Glucose, Novolog, Lantus, Lactulose, Larazepam, Topamax, Florastor Skin: No skin break down at this time. WNL. Additional Notes: Patient is tolerating current tube feeding well with little to no residuals. Feeding is providing pt. with 1584 calories, 79 grams of protein and 1062 mls of water with an additional 180 mls of water provided from 30 ml water flush Q4. Monitor labs, medications, wt, and residuals every T/F
[2021-03-23 12:19] LABS: Glucose Point of Care 158 mg/dl (65-105)
--- NOTE | 2021-03-23 16:18 | PM.IMPN ---
Progress Note: A&P Assessment and Plan (1) Seizure: Code(s): R56.9 - Unspecified convulsions Status: Acute Assessment and Plan: 76-year-old female with history of brain mass, dementia, admitted with seizure CT of head with no acute findings Seizure precautions Neurology was consulted, no anticonvulsants at this time Continue to monitor 03/15/2021 interval history, patient is 76-year-old female with history of brain mass currently admitted with a suspected aspiration pneumonia concerning for sepsis seen by side laster being treated with ertapenem and vancomycin blood culture and MRSA are negative, patient remains clinically stable unfortunately unable to provide any review of symptoms or history, chest x-ray done yesterday showed persistent pneumonia, will switch DuoNeb as scheduled and have PT OT work with the patient. will continue to monitor and further recommendation to follow. 03/16/2021 interval history, admitte on 03/10 patient is 76-year-old female with history of brain mass chronically on dexamethasone 6mg q6, currently admitted with a suspected aspiration pneumonia concerning for sepsis seen by side laster being treated with ertapenem day 7/10 and vancomycin day 4, MRSA is negative, blood culture no growth so far, has elevated WBC 2/2 steroid, D/W side laster today suspect elevated latic acid most likely 2/2 to brain mass resulting in respiratory alkolosis which can cause elevated lactic acid, recommended to continue Ertapenem for total 10 days, patient remains clinically stable unfortunately unable to provide any review of symptoms or history, chest x-ray done yesterday showed persistent pneumonia, will switch DuoNeb as scheduled and have PT OT work with the patient. will continue to monitor and further recommendation to follow. Called [phone] left message. 03/17/2021 interval history, admitte on 03/10 patient remains clinically stable, unable to provide detail review of symptoms her white counts elevated compared to his baseline due to steroid, however patient does not have any fever will repeat chest x-ray and repeat blood culture, will continue present management with a ertapenem and vancomycin, will continue to monitor and further recommendation to follow. 03/18/2021 interval history, admitte on 03/10 patient remains clinically stable, unable to provide detail review of symptoms her white counts were elevated on 03/17 compared to her baseline due to steroid, steroids were stopped on 03/17 her WBC slightly lower today, repeat chest x-rays today showed improvement, blood culture done on 03/10 and repeat blood culture done on 03/17 still no growth and patient does not have any fever, Patient is seen by Dr. Hinds, Pulmonogist and in contact with the family, will continue present management with a ertapenem and vancomycin once IV is establish, I agree with Dr. Hinds, family may consider hospice for the patient as her quality of life has not improved since last year patient was seen. , will continue to monitor and further recommendation to follow 03/19/2021 interval history, admitted on 03/10 patient remains clinically stable, unable to provide detail review of symptoms her white counts were elevated on 03/17 compared to her baseline due to steroid, steroids were stopped on 03/17 her WBC slightly lower today, repeat chest x-rays 03/18 showed improvement, blood culture done on 03/10 and repeat blood culture done on 03/17 still no growth and patient does not have any fever, Patient is seen by Dr. Hinds, Pulmonogist and in contact with the family, will continue present management with a ertapenem and vancomycin once IV is establish, will continue to monitor. 03/20 Neurology reconsulted; family is requested a repeat EEG 03/21 patient still with intermittent seizures. These seem intractable. Patient otherwise obtunded and no signs of improvement upon review of her extensive chart. Admitted on 03/10/2021 history of
[2021-03-23 17:35] LABS: Glucose Point of Care 169 mg/dl (65-105)
[2021-03-23] MEDS: BACLOFEN 5 MG TABLET FEED TUBE (22:51)
[2021-03-23] MEDS: INSULIN GLARGINE (*BKC) 100 UNITS/ML 30 UNITS SUB-Q (22:52)
[2021-03-24] VITALS (13 sets, daily range): BP systolic 101–118; BP diastolic 45–63; PULSE 88–118; RESP 14–28; TEMP 36.1–36.8; O2SAT 93–95
[2021-03-24] MEDS: ALBUTEROL SULFATE NEB 2.5 MG/0.5 ML INH INHALATION ×3 (02:35→21:43)
[2021-03-24 04:51] LABS: Glucose Point of Care 176 mg/dl (65-105)
[2021-03-24] MEDS: INSULIN ASPART (*BKC) 100 UNITS/ML SUB-Q ×3 (06:11→19:30)
[2021-03-24] MEDS: LANSOPRAZOLE ORAL SUSP 30 MG/10 ML ORAL.SUSP FEED TUBE (06:12)
[2021-03-24 07:35] LABS: Basophils Percent Auto 0.2 % (0.2-1.2); Eosinophils Absolute Auto 0.4 K/mm3 (0-0.3); Eosinophils Percent Auto 1.9 % (0-4.4); Hematocrit 30.6 % (37.0-47.0); Hemoglobin 9.2 g/dL (12.0-15.0); Immature Granulocyte Absolute 0.17 K/mm3 (0.00-0.031); Immature Granulocyte Percent A 0.9 % (0-0.5); Lymphocytes Absolute Auto 2.68 K/mm3 (0.9-3.2); Lymphocytes Percent Auto 14.9 % (18.3-44.2); Mean Corpuscular HGB Conc 30.1 g/dl (32-36); Mean Corpuscular Hemoglobin 25.7 pg (26-34); Mean Corpuscular Volume 85.5 fl (80-100); Mean Platelet Volume 9.6 fl (7.4-10.4); Monocytes Percent Auto 5.7 % (2.6-8.5); Neutrophils Absolute Auto 13.7 K/mm3 (1.3-6.7); Neutrophils Percent Auto 76.4 % (45.5-73.1); Platelet Count Result 224 k/mm3 (150-375); Red Blood Count 3.58 M/mm3 (4.2-5.4); Red Cell Distribution Width 18.6 % (11.5-14.5)
[2021-03-24 07:45] LABS: Anion Gap 9 mmol/L (8-16); Blood Urea Nitrogen 17 mg/dL (7-17); Calcium 8.7 mg/dL (8.4-10.2); Carbon Dioxide 22 mmol/L (22-30); Chloride 111 mmol/L (98-107); Estimated CRCL calculation 64 ml/min; Estimated Glomerular Filt Rate > 60; Glucose 212 mg/dL (65-110); Magnesium 2.1 mg/dL (1.6-2.3); Potassium 3.3 mmol/L (3.4-5.0); Sodium 142 mmol/L (137-145)
[2021-03-24 08:33] LABS: Glucose Point of Care 190 mg/dl (65-105)
[2021-03-24] MEDS: ASCORBIC ACID 500 MG TABLET FEED TUBE (08:54)
[2021-03-24] MEDS: HEPARIN SODIUM 5,000 UNITS/ML VIAL 5000 UNITS SUB-Q ×2 (08:54→20:46)
[2021-03-24] MEDS: LORATADINE 10 MG TABLET FEED TUBE (08:54)
[2021-03-24] MEDS: guaiFENesin 200 MG/10 ML UDC FEED TUBE ×2 (08:54→16:39)
[2021-03-24] MEDS: CHLORHEXIDINE GLUCONATE 0.12% ORAL RINSE 473 ML BTL (*BKC) 15 ML SWISH/SPIT ×2 (08:55→20:49)
[2021-03-24] MEDS: TOPIRAMATE 100 MG TABLET XX ×2 (08:56→20:45)
--- NOTE | 2021-03-24 11:49 | PCRCNOTE ---
Window of time for administration has passed. See next scheduled administration.
[2021-03-24 12:08] LABS: Glucose Point of Care 212 mg/dl (65-105)
--- NOTE | 2021-03-24 13:15 | WPDNEUROPN ---
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 Almost commatose status . 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 Ativan if only the jerking is seen in the left lower extremity. But considering the EEG and MRI she is having continuous focal seizures in her right hemisphere which at times are spreading to left hemisphere, I will start on low dose of phenobarbital along with the present therapeutic regimen Review of Systems Review of Systems: All systems reviewed & are unremarkable except as noted in HPI and below Exam Narrative: remains unresponsive to verbal commands, does not open her eyes on command and does not move upper and lower extremities on command, facial grimace is present with right-sided movement tongue in the oral cavity with no twitching or fasciculation at this particular time she is weak in all upper and lower extremities but more so on the left reflexes are brisk plantars are up, heart regular lungs with rhonchi abdomen is soft Objective Data Vital Signs Vital Signs: Vital Signs - 24 hr 03/23/21 13:49 03/23/21 13:56 03/23/21 14:00 Temperature 37.1 C Pulse Rate 94 90 88 Respiratory Rate 20 20 14 Blood Pressure 118/58 L Pulse Oximetry 94 03/23/21 16:00 03/23/21 17:43 03/23/21 20:00 Temperature 36.8 C Pulse Rate 128 H 130 H 123 H Respiratory Rate 32 H Blood Pressure 108/52 L Pulse Oximetry 90 03/23/21 20:10 03/23/21 22:00 03/24/21 00:00 Temperature 37.4 C Pulse Rate 90 119 H 118 H Respiratory Rate 20 20 Blood Pressure 114/40 L Pulse Oximetry 92 03/24/21 04:00 03/24/21 06:00 03/24/21 13:00 Temperature 36.6 C Pulse Rate 116 H 97 Respiratory Rate 28 H Blood Pressure 109/45 L Pulse Oximetry 95 94 03/24/21 13:01 03/24/21 13:08 Temperature Pulse Rate 103 H 104 H Respiratory Rate 20 22 H Blood Pressure Pulse Oximetry Intake/Output Intake/Output: Intake & Output 03/21/21 03/22/21 03/23/21 03/24/21 23:59 23:59 23:59 23:59 Intake Total 1151 1140 0 1300 Balance 1151 1140 0 1300 Meds/Results Medications: Active Medications Generic Name Dose Route Start Last Admin Trade Name Freq PRN Reason Stop Dose Admin Acetaminophen 650 mg 03/08/21 18:56 03/20/21 20:18 Acetaminophen Elixir 325 Mg/10.15 Ml Udc FEED TUBE 650 mg Q8H PRN Administration Mild Pain (1-3) Albuterol 2.5 mg 03/18/21 20:00 03/24/21 13:00 Albuterol Sulfate Neb 2.5 Mg/0.5 Ml Inh INHALATION 2.5 mg Q6HRT BRYCE Administration Ascorbic Acid 500 mg 03/09/21 09:00 03/24/21 08:54 Ascorbic Acid 500 Mg Tablet FEED TUBE 500 mg DAILY BRYCE Administration Baclofen 5 mg 03/08/21 21:00 03/23/21 22:51 Baclofen 5 Mg Tablet FEED TUBE 5 mg HS BRYCE Administration Bisacodyl 10 mg 03/08/21 18:56 Bisacodyl 10 Mg Suppository RECTAL DAILY PRN Constipation Chlorhexidine Gluconate 15 ml 03/08/21 21:00 03/24/21 08:55 Chlorhexidine Gluconate 0.12% Oral Rinse 473 Ml Btl (*Bkc) SWISH/SPIT 15 ml Q12HR BRYCE Administration Dextrose 12.5 gm 03/07/21 20:35 Dextrose 50% 25 Gm/50 Ml Syringe IV PUSH PRN PRN Hypoglycemia Protocol Diclofenac Sodium 1 applic 03/08/21 18:56 Diclofenac Sodium 1% 100 Gm Gel (*Bkc) TOPICAL Q12HR PRN LEFT HAND PAIN Er
[2021-03-24] MEDS: PHENobarbital (*CRX) 60 MG TABLET FEED TUBE (14:14)
--- NOTE | 2021-03-24 14:29 | PM.IMPN ---
Progress Note: A&P Assessment and Plan (1) Seizure: Code(s): R56.9 - Unspecified convulsions Status: Acute Assessment and Plan: 76-year-old female with history of brain mass, dementia, admitted with seizure CT of head with no acute findings Seizure precautions Neurology was consulted, no anticonvulsants at this time Continue to monitor 03/15/2021 interval history, patient is 76-year-old female with history of brain mass currently admitted with a suspected aspiration pneumonia concerning for sepsis seen by spring former machine being treated with ertapenem and vancomycin blood culture and MRSA are negative, patient remains clinically stable unfortunately unable to provide any review of symptoms or history, chest x-ray done yesterday showed persistent pneumonia, will switch DuoNeb as scheduled and have PT OT work with the patient. will continue to monitor and further recommendation to follow. 03/16/2021 interval history, admitte on 03/10 patient is 76-year-old female with history of brain mass chronically on dexamethasone 6mg q6, currently admitted with a suspected aspiration pneumonia concerning for sepsis seen by spring former machine being treated with ertapenem day 7/10 and vancomycin day 4, MRSA is negative, blood culture no growth so far, has elevated WBC 2/2 steroid, D/W spring former machine today suspect elevated latic acid most likely 2/2 to brain mass resulting in respiratory alkolosis which can cause elevated lactic acid, recommended to continue Ertapenem for total 10 days, patient remains clinically stable unfortunately unable to provide any review of symptoms or history, chest x-ray done yesterday showed persistent pneumonia, will switch DuoNeb as scheduled and have PT OT work with the patient. will continue to monitor and further recommendation to follow. Called [phone] left message. 03/17/2021 interval history, admitte on 03/10 patient remains clinically stable, unable to provide detail review of symptoms her white counts elevated compared to his baseline due to steroid, however patient does not have any fever will repeat chest x-ray and repeat blood culture, will continue present management with a ertapenem and vancomycin, will continue to monitor and further recommendation to follow. 03/18/2021 interval history, admitte on 03/10 patient remains clinically stable, unable to provide detail review of symptoms her white counts were elevated on 03/17 compared to her baseline due to steroid, steroids were stopped on 03/17 her WBC slightly lower today, repeat chest x-rays today showed improvement, blood culture done on 03/10 and repeat blood culture done on 03/17 still no growth and patient does not have any fever, Patient is seen by Dr. Hinds, Pulmonogist and in contact with the family, will continue present management with a ertapenem and vancomycin once IV is establish, I agree with Dr. Hinds, family may consider hospice for the patient as her quality of life has not improved since last year patient was seen. , will continue to monitor and further recommendation to follow 03/19/2021 interval history, admitted on 03/10 patient remains clinically stable, unable to provide detail review of symptoms her white counts were elevated on 03/17 compared to her baseline due to steroid, steroids were stopped on 03/17 her WBC slightly lower today, repeat chest x-rays 03/18 showed improvement, blood culture done on 03/10 and repeat blood culture done on 03/17 still no growth and patient does not have any fever, Patient is seen by Dr. Hinds, Pulmonogist and in contact with the family, will continue present management with a ertapenem and vancomycin once IV is establish, will continue to monitor. 03/20 Neurology reconsulted; family is requested a repeat EEG 03/21 patient still with intermittent seizures. These seem intractable. Patient otherwise obtunded and no signs of improvement upon review of her extensive chart. Admitted on 03/10/2021 history of
--- NOTE | 2021-03-24 14:29 | PC.NURSE ---
This nurse called Dr. Vaca r/t report for clarification. Topax will be increased to 150 mg per tube BID as planned and okay to give Ativan 1 mg IVP prn any seizure activity.
[2021-03-24] MEDS: POTASSIUM CHLORIDE 20 MEQ PACKET (FOR LIQUID) 40 MEQ FEED TUBE (16:39)
[2021-03-24] MEDS: SACCHAROMYCES BOULARDII 250 MG CAPSULE FEED TUBE ×2 (16:39)
[2021-03-24 19:00] LABS: Glucose Point of Care 209 mg/dl (65-105)
[2021-03-24] MEDS: INSULIN GLARGINE (*BKC) 100 UNITS/ML 30 UNITS SUB-Q (20:43)
[2021-03-24] MEDS: BACLOFEN 5 MG TABLET FEED TUBE (20:46)
[2021-03-24] MEDS: TOPIRAMATE 25 MG TABLET 50 MG XX (20:48)
[2021-03-25] VITALS (9 sets, daily range): BP systolic 108–111; BP diastolic 53–59; PULSE 87–122; RESP 16–22; TEMP 36.4–36.9; O2SAT 95
[2021-03-25] MEDS: ALBUTEROL SULFATE NEB 2.5 MG/0.5 ML INH INHALATION ×2 (02:47→13:55)
[2021-03-25 05:08] LABS: Glucose Point of Care 234 mg/dl (65-105)
[2021-03-25] MEDS: INSULIN ASPART (*BKC) 100 UNITS/ML SUB-Q ×3 (05:34→18:12)
[2021-03-25] MEDS: LANSOPRAZOLE ORAL SUSP 30 MG/10 ML ORAL.SUSP FEED TUBE (05:36)
[2021-03-25] MEDS: SACCHAROMYCES BOULARDII 250 MG CAPSULE FEED TUBE ×2 (09:38→18:02)
[2021-03-25] MEDS: LORATADINE 10 MG TABLET FEED TUBE (09:39)
[2021-03-25] MEDS: guaiFENesin 200 MG/10 ML UDC FEED TUBE ×2 (09:39→17:59)
[2021-03-25] MEDS: TOPIRAMATE 100 MG TABLET XX ×2 (09:39→21:18)
[2021-03-25] MEDS: PHENobarbital (*CRX) 60 MG TABLET FEED TUBE (09:39)
[2021-03-25] MEDS: ASCORBIC ACID 500 MG TABLET FEED TUBE (09:39)
[2021-03-25] MEDS: TOPIRAMATE 25 MG TABLET 50 MG XX ×2 (09:39→21:17)
[2021-03-25] MEDS: HEPARIN SODIUM 5,000 UNITS/ML VIAL 5000 UNITS SUB-Q ×2 (09:40→21:17)
[2021-03-25] MEDS: CHLORHEXIDINE GLUCONATE 0.12% ORAL RINSE 473 ML BTL (*BKC) 15 ML SWISH/SPIT ×2 (09:42→21:18)
[2021-03-25] MEDS: LORazepam INJ (*CRX) 2 MG/ML VIAL 1 MG IV PUSH (09:59)
[2021-03-25 11:46] LABS: Glucose Point of Care 226 mg/dl (65-105)
--- NOTE | 2021-03-25 13:30 | PCRCNOTE ---
Past window to treatment time
--- NOTE | 2021-03-25 14:09 | PM.IMPN ---
Progress Note: A&P Assessment and Plan (1) Seizure: Code(s): R56.9 - Unspecified convulsions Status: Acute Assessment and Plan: 76-year-old female with history of brain mass, dementia, admitted with seizure CT of head with no acute findings Seizure precautions Neurology was consulted, no anticonvulsants at this time Continue to monitor 03/15/2021 interval history, patient is 76-year-old female with history of brain mass currently admitted with a suspected aspiration pneumonia concerning for sepsis seen by sharepoint administrator being treated with ertapenem and vancomycin blood culture and MRSA are negative, patient remains clinically stable unfortunately unable to provide any review of symptoms or history, chest x-ray done yesterday showed persistent pneumonia, will switch DuoNeb as scheduled and have PT OT work with the patient. will continue to monitor and further recommendation to follow. 03/16/2021 interval history, admitte on 03/10 patient is 76-year-old female with history of brain mass chronically on dexamethasone 6mg q6, currently admitted with a suspected aspiration pneumonia concerning for sepsis seen by sharepoint administrator being treated with ertapenem day 7/10 and vancomycin day 4, MRSA is negative, blood culture no growth so far, has elevated WBC 2/2 steroid, D/W sharepoint administrator today suspect elevated latic acid most likely 2/2 to brain mass resulting in respiratory alkolosis which can cause elevated lactic acid, recommended to continue Ertapenem for total 10 days, patient remains clinically stable unfortunately unable to provide any review of symptoms or history, chest x-ray done yesterday showed persistent pneumonia, will switch DuoNeb as scheduled and have PT OT work with the patient. will continue to monitor and further recommendation to follow. Called [phone] left message. 03/17/2021 interval history, admitte on 03/10 patient remains clinically stable, unable to provide detail review of symptoms her white counts elevated compared to his baseline due to steroid, however patient does not have any fever will repeat chest x-ray and repeat blood culture, will continue present management with a ertapenem and vancomycin, will continue to monitor and further recommendation to follow. 03/18/2021 interval history, admitte on 03/10 patient remains clinically stable, unable to provide detail review of symptoms her white counts were elevated on 03/17 compared to her baseline due to steroid, steroids were stopped on 03/17 her WBC slightly lower today, repeat chest x-rays today showed improvement, blood culture done on 03/10 and repeat blood culture done on 03/17 still no growth and patient does not have any fever, Patient is seen by Dr. Hinds, Pulmonogist and in contact with the family, will continue present management with a ertapenem and vancomycin once IV is establish, I agree with Dr. Hinds, family may consider hospice for the patient as her quality of life has not improved since last year patient was seen. , will continue to monitor and further recommendation to follow 03/19/2021 interval history, admitted on 03/10 patient remains clinically stable, unable to provide detail review of symptoms her white counts were elevated on 03/17 compared to her baseline due to steroid, steroids were stopped on 03/17 her WBC slightly lower today, repeat chest x-rays 03/18 showed improvement, blood culture done on 03/10 and repeat blood culture done on 03/17 still no growth and patient does not have any fever, Patient is seen by Dr. Hinds, Pulmonogist and in contact with the family, will continue present management with a ertapenem and vancomycin once IV is establish, will continue to monitor. 03/20 Neurology reconsulted; family is requested a repeat EEG 03/21 patient still with intermittent seizures. These seem intractable. Patient otherwise obtunded and no signs of improvement upon review of her extensive chart. Admitted on 03/10/2021 history of
[2021-03-25 18:07] LABS: Glucose Point of Care 208 mg/dl (65-105)
[2021-03-25] MEDS: INSULIN GLARGINE (*BKC) 100 UNITS/ML 30 UNITS SUB-Q (21:14)
[2021-03-25] MEDS: BACLOFEN 5 MG TABLET FEED TUBE (21:16)
--- NOTE | 2021-03-25 23:49 | PC.NURSE ---
Patient noted to have multiple seizure activity throughout the day. Dr Vaca and Hospitalist has been aware. Family updated on patient condition.
[2021-03-26] VITALS (16 sets, daily range): BP systolic 96–105; BP diastolic 41–50; PULSE 87–127; RESP 20–23; TEMP 36.3–36.9; O2SAT 94–98
[2021-03-26 00:01] LABS: Glucose Point of Care 241 mg/dl (65-105)
[2021-03-26] MEDS: INSULIN ASPART (*BKC) 100 UNITS/ML SUB-Q ×4 (00:03→18:36)
[2021-03-26] MEDS: ALBUTEROL SULFATE NEB 2.5 MG/0.5 ML INH INHALATION ×4 (02:49→21:18)
[2021-03-26 06:07] LABS: Glucose Point of Care 237 mg/dl (65-105)
[2021-03-26] MEDS: LANSOPRAZOLE ORAL SUSP 30 MG/10 ML ORAL.SUSP FEED TUBE (06:09)
[2021-03-26 06:59] LABS: Basophils Percent Auto 0.3 % (0.2-1.2); Eosinophils Absolute Auto 0.4 K/mm3 (0-0.3); Eosinophils Percent Auto 2.7 % (0-4.4); Hematocrit 30.8 % (37.0-47.0); Hemoglobin 9.2 g/dL (12.0-15.0); Immature Granulocyte Absolute 0.29 K/mm3 (0.00-0.031); Lymphocytes Absolute Auto 2.45 K/mm3 (0.9-3.2); Lymphocytes Percent Auto 16.7 % (18.3-44.2); Mean Corpuscular HGB Conc 29.9 g/dl (32-36); Mean Corpuscular Hemoglobin 25.7 pg (26-34); Mean Platelet Volume 9.7 fl (7.4-10.4); Monocytes Absolute Auto 0.6 K/mm3 (0.1-0.6); Monocytes Percent Auto 3.9 % (2.6-8.5); Neutrophils Absolute Auto 10.9 K/mm3 (1.3-6.7); Neutrophils Percent Auto 74.4 % (45.5-73.1); Nucleated Red Blood Cells Perc 0.2 % (0.0-0.2); Platelet Count Result 269 k/mm3 (150-375); Red Blood Count 3.58 M/mm3 (4.2-5.4); Red Cell Distribution Width 18.5 % (11.5-14.5); White Blood Count 14.7 K/mm3 (4.5-10.0)
[2021-03-26 07:13] LABS: Alanine Aminotransferase 27 U/L (4-35); Albumin Level 3.5 g/dL (3.5-5.1); Alkaline Phosphatase 105 U/L (38-126); Anion Gap 10 mmol/L (8-16); Aspartate Amino Transferase 20 U/L (14-36); Bilirubin,Total 0.2 mg/dL (0.2-1.3); Blood Urea Nitrogen 15 mg/dL (7-17); Calcium 9.1 mg/dL (8.4-10.2); Carbon Dioxide 21 mmol/L (22-30); Chloride 112 mmol/L (98-107); Estimated CRCL calculation 76 ml/min; Estimated Glomerular Filt Rate > 60; Glucose 245 mg/dL (65-110); Sodium 143 mmol/L (137-145)
[2021-03-26 07:57] LABS: Glucose Point of Care 249 mg/dl (65-105)
[2021-03-26] MEDS: TOPIRAMATE 25 MG TABLET 50 MG XX ×2 (11:42→20:52)
[2021-03-26] MEDS: LORATADINE 10 MG TABLET FEED TUBE (11:42)
[2021-03-26] MEDS: ERGOCALCIFEROL 50,000 UNIT CAPSULE 50000 UNITS FEED TUBE (11:42)
[2021-03-26] MEDS: SACCHAROMYCES BOULARDII 250 MG CAPSULE FEED TUBE ×2 (11:42→18:37)
[2021-03-26] MEDS: ASCORBIC ACID 500 MG TABLET FEED TUBE (11:42)
[2021-03-26] MEDS: guaiFENesin 200 MG/10 ML UDC FEED TUBE ×2 (11:43→18:37)
[2021-03-26] MEDS: HEPARIN SODIUM 5,000 UNITS/ML VIAL 5000 UNITS SUB-Q ×2 (11:43→20:52)
[2021-03-26] MEDS: TOPIRAMATE 100 MG TABLET XX ×2 (11:43→20:52)
[2021-03-26] MEDS: CHLORHEXIDINE GLUCONATE 0.12% ORAL RINSE 473 ML BTL (*BKC) 15 ML SWISH/SPIT ×2 (11:44→21:12)
[2021-03-26] MEDS: LORazepam INJ (*CRX) 2 MG/ML VIAL 1 MG IV PUSH ×2 (11:52→18:37)
[2021-03-26] MEDS: PHENobarbital (*CRX) 60 MG TABLET FEED TUBE (11:53)
[2021-03-26 11:54] LABS: Glucose Point of Care 230 mg/dl (65-105)
--- NOTE | 2021-03-26 13:52 | WPDNEUROPN ---
Progress Note: A&P Additional Plan thorough discussion was made with the family, will continue the anticonvulsants as such today particularly will increase the phenobarbital to90mg pertube and depending on her status tomorrow we add Dmitriy Time Spent With Patient Time with patient: less than 15 minutes Subjective Date/time seen: 03/26/21 13:52Had discussion with the family on telephone regarding the present anticonvulsant therapy they were able to perceive some change in her mental alertness and wanted to give her the Keppra what they had decline in the past because of the heart rate dropping. She has received phenobarbital 60 mg p.o. since yesterday and daily basis in addition to Topamax 300 mg daily. On Review of Systems Review of Systems: All systems reviewed & are unremarkable except as noted in HPI and below Exam Narrative: on examination today she is more arousable, opens her eyes, regard to the sounds, but otherwise her motor status remains unchanged, heart regular, lungs clear, abdomen is soft nontender Objective Data Vital Signs Vital Signs: Vital Signs - 24 hr 03/25/21 13:55 03/25/21 14:00 03/25/21 14:02 Temperature 36.4 C Pulse Rate 87 89 90 Respiratory Rate 20 16 20 Blood Pressure 111/59 L Pulse Oximetry 95 03/25/21 16:00 03/25/21 22:00 03/26/21 02:50 Temperature 36.9 C Pulse Rate 122 H 119 H 89 Respiratory Rate 20 20 Blood Pressure 108/53 L Pulse Oximetry 95 03/26/21 03:01 03/26/21 05:37 03/26/21 08:00 Temperature 36.9 C Pulse Rate 87 122 H 120 H Respiratory Rate 20 20 Blood Pressure 105/50 L Pulse Oximetry 97 03/26/21 09:54 03/26/21 10:01 03/26/21 12:00 Temperature Pulse Rate 98 95 127 H Respiratory Rate 20 20 Blood Pressure Pulse Oximetry Intake/Output Intake/Output: Intake & Output 03/23/21 03/24/21 03/25/21 03/26/21 23:59 23:59 23:59 23:59 Intake Total 0 1300 Balance 0 1300 Meds/Results Medications: Active Medications Generic Name Dose Route Start Last Admin Trade Name Freq PRN Reason Stop Dose Admin Acetaminophen 650 mg 03/08/21 18:56 03/20/21 20:18 Acetaminophen Elixir 325 Mg/10.15 Ml Udc FEED TUBE 650 mg Q8H PRN Administration Mild Pain (1-3) Albuterol 2.5 mg 03/18/21 20:00 03/26/21 09:53 Albuterol Sulfate Neb 2.5 Mg/0.5 Ml Inh INHALATION 2.5 mg Q6HRT BRYCE Administration Ascorbic Acid 500 mg 03/09/21 09:00 03/26/21 11:42 Ascorbic Acid 500 Mg Tablet FEED TUBE 500 mg DAILY BRYCE Administration Baclofen 5 mg 03/08/21 21:00 03/25/21 21:16 Baclofen 5 Mg Tablet FEED TUBE 5 mg HS BRYCE Administration Bisacodyl 10 mg 03/08/21 18:56 Bisacodyl 10 Mg Suppository RECTAL DAILY PRN Constipation Chlorhexidine Gluconate 15 ml 03/08/21 21:00 03/26/21 11:44 Chlorhexidine Gluconate 0.12% Oral Rinse 473 Ml Btl (*Bkc) SWISH/SPIT 15 ml Q12HR BRYCE Administration Dextrose 12.5 gm 03/07/21 20:35 Dextrose 50% 25 Gm/50 Ml Syringe IV PUSH PRN PRN Hypoglycemia Protocol Diclofenac Sodium 1 applic 03/08/21 18:56 Diclofenac Sodium 1% 100 Gm Gel (*Bkc) TOPICAL Q12HR PRN LEFT HAND PAIN Ergocalciferol 50,000 unit 03/12/21 09:00 03/26/21 11:42 Ergocalciferol 50,000 Unit Capsule FEED TUBE 50,000 unit Mo@0900 BRYCE Administration Glucagon 1 mg 03/07/21 20:35 Glucagon For Inj 1 Mg Vial IM PRN PRN Hypoglycemia Protocol Glucose 15 gm 03/07/21 20:35 Glucose Oral Gel 15 Gm Of Glucse In 37.5 Gm Tube PO PRN PRN Hypoglycemia Protocol Guaifenesin 200 mg 03/19/21 09:00 03/26/21 11:43 Guaifenesin 200 Mg/10 Ml Udc FEED TUBE 200 mg BID BRYCE Administration Heparin Sodium (Porcine) 5,000 units 03/22/21 21:00 03/26/21 11:43 Heparin Sodium 5,000 Units/Ml Vial SUB-Q 5,000 units Q12HR BRYCE Administration Dextrose 1,000 mls @ 100 mls/hr 03/07/21 20:35 Dextrose 5% 1,000 Ml IVPB PRN
[2021-03-26] MEDS: PHENobarbitaL (*CRX) 30 MG TABLET FEED TUBE (15:42)
--- NOTE | 2021-03-26 16:57 | PM.IMPN ---
Progress Note: A&P Assessment and Plan (1) Seizure: Code(s): R56.9 - Unspecified convulsions Status: Acute Assessment and Plan: 76-year-old female with history of brain mass, dementia, admitted with seizure CT of head with no acute findings Seizure precautions Neurology was consulted, no anticonvulsants at this time Continue to monitor 03/15/2021 interval history, patient is 76-year-old female with history of brain mass currently admitted with a suspected aspiration pneumonia concerning for sepsis seen by dragline oiler being treated with ertapenem and vancomycin blood culture and MRSA are negative, patient remains clinically stable unfortunately unable to provide any review of symptoms or history, chest x-ray done yesterday showed persistent pneumonia, will switch DuoNeb as scheduled and have PT OT work with the patient. will continue to monitor and further recommendation to follow. 03/16/2021 interval history, admitte on 03/10 patient is 76-year-old female with history of brain mass chronically on dexamethasone 6mg q6, currently admitted with a suspected aspiration pneumonia concerning for sepsis seen by dragline oiler being treated with ertapenem day 7/10 and vancomycin day 4, MRSA is negative, blood culture no growth so far, has elevated WBC 2/2 steroid, D/W dragline oiler today suspect elevated latic acid most likely 2/2 to brain mass resulting in respiratory alkolosis which can cause elevated lactic acid, recommended to continue Ertapenem for total 10 days, patient remains clinically stable unfortunately unable to provide any review of symptoms or history, chest x-ray done yesterday showed persistent pneumonia, will switch DuoNeb as scheduled and have PT OT work with the patient. will continue to monitor and further recommendation to follow. Called [phone] left message. 03/17/2021 interval history, admitte on 03/10 patient remains clinically stable, unable to provide detail review of symptoms her white counts elevated compared to his baseline due to steroid, however patient does not have any fever will repeat chest x-ray and repeat blood culture, will continue present management with a ertapenem and vancomycin, will continue to monitor and further recommendation to follow. 03/18/2021 interval history, admitte on 03/10 patient remains clinically stable, unable to provide detail review of symptoms her white counts were elevated on 03/17 compared to her baseline due to steroid, steroids were stopped on 03/17 her WBC slightly lower today, repeat chest x-rays today showed improvement, blood culture done on 03/10 and repeat blood culture done on 03/17 still no growth and patient does not have any fever, Patient is seen by Dr. Hinds, Pulmonogist and in contact with the family, will continue present management with a ertapenem and vancomycin once IV is establish, I agree with Dr. Hinds, family may consider hospice for the patient as her quality of life has not improved since last year patient was seen. , will continue to monitor and further recommendation to follow 03/19/2021 interval history, admitted on 03/10 patient remains clinically stable, unable to provide detail review of symptoms her white counts were elevated on 03/17 compared to her baseline due to steroid, steroids were stopped on 03/17 her WBC slightly lower today, repeat chest x-rays 03/18 showed improvement, blood culture done on 03/10 and repeat blood culture done on 03/17 still no growth and patient does not have any fever, Patient is seen by Dr. Hinds, Pulmonogist and in contact with the family, will continue present management with a ertapenem and vancomycin once IV is establish, will continue to monitor. 03/20 Neurology reconsulted; family is requested a repeat EEG 03/21 patient still with intermittent seizures. These seem intractable. Patient otherwise obtunded and no signs of improvement upon review of her extensive chart. Admitted on 03/10/2021 history of
[2021-03-26 17:22] LABS: Glucose Point of Care 192 mg/dl (65-105)
[2021-03-26 20:44] LABS: Glucose Point of Care 200 mg/dl (65-105)
[2021-03-26] MEDS: BACLOFEN 5 MG TABLET FEED TUBE (20:52)
[2021-03-26] MEDS: INSULIN GLARGINE (*BKC) 100 UNITS/ML 35 UNITS SUB-Q (21:07)
[2021-03-27] VITALS (14 sets, daily range): BP systolic 103–115; BP diastolic 50–55; PULSE 94–124; RESP 20–26; TEMP 36.2–36.9; O2SAT 96–100
[2021-03-27 00:01] LABS: Glucose Point of Care 230 mg/dl (65-105)
[2021-03-27] MEDS: INSULIN ASPART (*BKC) 100 UNITS/ML SUB-Q ×4 (00:12→17:46)
[2021-03-27] MEDS: ALBUTEROL SULFATE NEB 2.5 MG/0.5 ML INH INHALATION ×3 (02:12→14:26)
[2021-03-27] MEDS: LANSOPRAZOLE ORAL SUSP 30 MG/10 ML ORAL.SUSP FEED TUBE (05:06)
[2021-03-27 05:32] LABS: Glucose Point of Care 241 mg/dl (65-105)
[2021-03-27 07:23] LABS: Albumin Level 3.6 g/dL (3.5-5.1); Alkaline Phosphatase 121 U/L (38-126); Anion Gap 11 mmol/L (8-16); Aspartate Amino Transferase 22 U/L (14-36); Bilirubin,Total 0.2 mg/dL (0.2-1.3); Blood Urea Nitrogen 21 mg/dL (7-17); Calcium 9.2 mg/dL (8.4-10.2); Carbon Dioxide 20 mmol/L (22-30); Chloride 110 mmol/L (98-107); Estimated CRCL calculation 76 ml/min; Estimated Glomerular Filt Rate > 60; Glucose 254 mg/dL (65-110); Potassium 3.6 mmol/L (3.4-5.0); Sodium 141 mmol/L (137-145)
[2021-03-27 07:31] LABS: Hematocrit 30.7 % (37.0-47.0); Mean Corpuscular HGB Conc 29.3 g/dl (32-36); Mean Corpuscular Hemoglobin 25.9 pg (26-34); Mean Corpuscular Volume 88.5 fl (80-100); Mean Platelet Volume 9.9 fl (7.4-10.4); Platelet Count Result 295 k/mm3 (150-375); Red Blood Count 3.47 M/mm3 (4.2-5.4); Red Cell Distribution Width 18.8 % (11.5-14.5); White Blood Count 12.7 K/mm3 (4.5-10.0)
[2021-03-27 07:37] LABS: Alanine Aminotransferase 28 U/L (4-35)
[2021-03-27 08:16] LABS: Anisocytosis 1+ (NORMAL); Atypical Lymphocytes Present; Band Neutrophils Percent 25 % (0-6); Eosinophils Absolute Manual 0.25 K/mm3 (0.02-0.5); Eosinophils Percent Manual 2 % (0-4); Monocytes Absolute Manual 0.25 K/mm3 (0.1-0.90); Monocytes Percent Manual 2 % (3-9); Neutrophils Absolute Manual 10.28 K/mm3 (1.7-7.2); Neutrophils Percent Manual 56 % (46-73); Platelet Estimate Adequate (Adequate); Poikilocytosis 1+ (NORMAL); Total Cells Counted 100
[2021-03-27] MEDS: TOPIRAMATE 100 MG TABLET XX ×2 (08:57→20:49)
[2021-03-27] MEDS: guaiFENesin 200 MG/10 ML UDC FEED TUBE ×2 (08:58→16:17)
[2021-03-27] MEDS: ASCORBIC ACID 500 MG TABLET FEED TUBE (08:58)
[2021-03-27] MEDS: LORATADINE 10 MG TABLET FEED TUBE (08:58)
[2021-03-27] MEDS: HEPARIN SODIUM 5,000 UNITS/ML VIAL 5000 UNITS SUB-Q ×2 (08:58→20:50)
[2021-03-27] MEDS: TOPIRAMATE 25 MG TABLET 50 MG XX ×2 (08:58→20:49)
[2021-03-27] MEDS: SACCHAROMYCES BOULARDII 250 MG CAPSULE FEED TUBE ×2 (08:58→16:17)
[2021-03-27] MEDS: CHLORHEXIDINE GLUCONATE 0.12% ORAL RINSE 473 ML BTL (*BKC) 15 ML SWISH/SPIT ×2 (08:59→22:30)
[2021-03-27] MEDS: PHENobarbitaL (*CRX) 30 MG TABLET 90 MG FEED TUBE (09:02)
[2021-03-27] MEDS: PHENobarbital (*CRX) 60 MG TABLET FEED TUBE (09:02)
[2021-03-27 10:21] LABS: Glucose Point of Care 203 mg/dl (65-105)
[2021-03-27 11:34] LABS: Glucose Point of Care 265 mg/dl (65-105)
--- NOTE | 2021-03-27 13:05 | WPDNEUROPN ---
Progress Note: A&P Additional Plan unchanged neurological status except visual more alert though still not communicative and the brief seizures are less frequent treatment will be continued as such Time Spent With Patient Time with patient: less than 15 minutes Subjective Date/time seen: 03/27/21 13:05 1. Status post craniotomy for the brain tumor 2. 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 History of COVID with the possibility of post COVID increase in the neurological disability 4. Ever since the anticonvulsants have been started with the clinical improvement in her alertness and the treatment will be continued as such Exam Const: General: awake and confusion Nutritional Appearance: average body habitus Orientation/consciousness: confusion Limitations: altered mental status, behavioral limitations and physical limitations HENMT: Ears: hearing grossly normal bilaterally General nose exam: Normal external nose present Face and sinus: normal facial exam Eyes: General: dysmorphic Alignment and Position: alignment abnormal Periorbital: periorbital findings abnormal EOM: EOM abnormal Neck: Neck: no JVD Neuro: Cognition (Neuro): abnormal cognition Speech: Abnormal speech present Gait exam (Neuro): Unable to assess gait Motor exam (neuro): No tremor noted Sensory Exam: Sensory deficit (Neuro) Deep tendon reflexes (DTR's): Right triceps reflex intensity grade: 1+, Left triceps reflex intensity grade: 2+, Rt Biceps (C5, C6): 1+, Right brachioradialis reflex intensity grade: 1+, Left brachioradialis reflex intensity grade: 2+, Right patellar reflex intensity grade: 1+, Left patellar reflex intensity grade: 2+, Right ankle reflex intensity grade: 2+ and Left ankle reflex intensity grade: 2+ Plantar Reflex Responses: equivocal: bilateral Psych: Appearance: disheveled Speech and movement: Mute speech present Affect: Animated affect present Attitude: Other attitude/behavior findings present (Psych) ( unresponsive to verbal commands) Objective Data Vital Signs Vital Signs: Vital Signs - 24 hr 03/26/21 14:00 03/26/21 14:19 03/26/21 14:26 Temperature 36.6 C Pulse Rate 121 H 89 91 Respiratory Rate 20 20 20 Blood Pressure 103/41 L Pulse Oximetry 98 03/26/21 16:00 03/26/21 20:00 03/26/21 21:19 Temperature Pulse Rate 112 H 101 H 90 Respiratory Rate 22 H Blood Pressure Pulse Oximetry 94 03/26/21 21:21 03/26/21 21:24 03/26/21 22:00 Temperature 36.3 C L Pulse Rate 95 115 H Respiratory Rate 22 H 23 H Blood Pressure 96/49 L Pulse Oximetry 97 96 03/27/21 02:13 03/27/21 04:00 03/27/21 06:00 Temperature 36.9 C Pulse Rate 94 118 H 119 H Respiratory Rate 23 H 23 H Blood Pressure 115/52 L Pulse Oximetry 99 03/27/21 08:00 03/27/21 08:36 03/27/21 08:37 Temperature Pulse Rate 124 H 112 H Respiratory Rate 26 H Blood Pressure Pulse Oximetry 96 96 03/27/21 08:44 03/27/21 12:00 Temperature Pulse Rate 118 H 117 H Respiratory Rate 26 H Blood Pressure Pulse Oximetry Intake/Output Intake/Output: Intake & Output 03/24/21 03/25/21 03/26/21 03/27/21 23:59 23:59 23:59 23:59 Intake Total 1300 0 Balance 1300 0 Meds/Results Medications: Active Medications Generic Name Dose Route Start Last Admin Trade Name Freq PRN Reason Stop Dose Admin Acetaminophen 650 mg 03/08/21 18:56 03/20/21 20:18 Acetaminophen Elixir 325 Mg/10.15 Ml Udc FEED TUBE 650 mg Q8H PRN Administration Mild Pain (1-3) Albuterol 2.5 mg 03/18/21 20:00 03/27/21 08:36 Albuterol Sulfate Neb 2.5 Mg/0.5 Ml Inh INHALATION 2.5 mg Q6HRT BRYCE Administration Ascorbic Acid 500 mg 03/09/21 09:00 03/27/21 08:58 Ascorbic Acid 500 Mg Tablet FEED TUBE 500 mg DAILY BRYCE Administration Baclofen 5 mg 03/08/21 21:00 03/26/21 20:52 Baclofen 5 Mg Tablet FEED TUBE 5 mg HS BRYCE Administration Bisacodyl 10 mg 03/08/21 18:56 Bisacodyl 10
--- NOTE | 2021-03-27 13:13 | PCNFU ---
Nutrition Follow-Up Complete: Swallowing difficulties related to dysphagia, seizure, brain tumor, and aspiration as evidenced by tube feeding Goal: Meet nutritional needs Patient will continue current goal. Pt current nutrition is Glucerna 1.2 at 60 ml/hr over 22 hours. Last recorded weight is 65.6 kg,no new weight to report. Bowel Motility:+BM reported 03/27 Labs Reviewed:Glu 254, Cr 0.5,BUN 21, Hct 30.7, Hgb 9.0 Meds Noted:Vit C, NovoLog, Prevacid, Florastor, Heparin, Claritin, Topamax Skin: WNL Additional Notes: Patient remains on G tube feedings of Glucerna 1.2 at 60 ml/hr and tolerating. Current tube feeding is providing 1584 kcals/79 gms protein/1062 ml water. Free water flush 30 ml q 4 hours. Agree with diet orders. Monitor labs, medications, wt, and residuals every T/F
[2021-03-27 16:41] LABS: EDCOVIDSCREEN Negative (Negative)
--- NOTE | 2021-03-27 16:56 | PM.IMPN ---
Progress Note: A&P Assessment and Plan (1) Seizure: Code(s): R56.9 - Unspecified convulsions Status: Acute Assessment and Plan: 76-year-old female with history of brain mass, dementia, admitted with seizure CT of head with no acute findings Seizure precautions Neurology was consulted, no anticonvulsants at this time Continue to monitor 03/15/2021 interval history, patient is 76-year-old female with history of brain mass currently admitted with a suspected aspiration pneumonia concerning for sepsis seen by brush holder inspector being treated with ertapenem and vancomycin blood culture and MRSA are negative, patient remains clinically stable unfortunately unable to provide any review of symptoms or history, chest x-ray done yesterday showed persistent pneumonia, will switch DuoNeb as scheduled and have PT OT work with the patient. will continue to monitor and further recommendation to follow. 03/16/2021 interval history, admitte on 03/10 patient is 76-year-old female with history of brain mass chronically on dexamethasone 6mg q6, currently admitted with a suspected aspiration pneumonia concerning for sepsis seen by brush holder inspector being treated with ertapenem day 7/10 and vancomycin day 4, MRSA is negative, blood culture no growth so far, has elevated WBC 2/2 steroid, D/W brush holder inspector today suspect elevated latic acid most likely 2/2 to brain mass resulting in respiratory alkolosis which can cause elevated lactic acid, recommended to continue Ertapenem for total 10 days, patient remains clinically stable unfortunately unable to provide any review of symptoms or history, chest x-ray done yesterday showed persistent pneumonia, will switch DuoNeb as scheduled and have PT OT work with the patient. will continue to monitor and further recommendation to follow. Called [phone] left message. 03/17/2021 interval history, admitte on 03/10 patient remains clinically stable, unable to provide detail review of symptoms her white counts elevated compared to his baseline due to steroid, however patient does not have any fever will repeat chest x-ray and repeat blood culture, will continue present management with a ertapenem and vancomycin, will continue to monitor and further recommendation to follow. 03/18/2021 interval history, admitte on 03/10 patient remains clinically stable, unable to provide detail review of symptoms her white counts were elevated on 03/17 compared to her baseline due to steroid, steroids were stopped on 03/17 her WBC slightly lower today, repeat chest x-rays today showed improvement, blood culture done on 03/10 and repeat blood culture done on 03/17 still no growth and patient does not have any fever, Patient is seen by Dr. Hinds, Pulmonogist and in contact with the family, will continue present management with a ertapenem and vancomycin once IV is establish, I agree with Dr. Hinds, family may consider hospice for the patient as her quality of life has not improved since last year patient was seen. , will continue to monitor and further recommendation to follow 03/19/2021 interval history, admitted on 03/10 patient remains clinically stable, unable to provide detail review of symptoms her white counts were elevated on 03/17 compared to her baseline due to steroid, steroids were stopped on 03/17 her WBC slightly lower today, repeat chest x-rays 03/18 showed improvement, blood culture done on 03/10 and repeat blood culture done on 03/17 still no growth and patient does not have any fever, Patient is seen by Dr. Hinds, Pulmonogist and in contact with the family, will continue present management with a ertapenem and vancomycin once IV is establish, will continue to monitor. 03/20 Neurology reconsulted; family is requested a repeat EEG 03/21 patient still with intermittent seizures. These seem intractable. Patient otherwise obtunded and no signs of improvement upon review of her extensive chart. Admitted on 03/10/2021 history of
[2021-03-27 17:29] LABS: Glucose Point of Care 205 mg/dl (65-105)
[2021-03-27] MEDS: BACLOFEN 5 MG TABLET FEED TUBE (20:49)
[2021-03-27 21:34] LABS: Glucose Point of Care 233 mg/dl (65-105)
[2021-03-27] MEDS: INSULIN GLARGINE (*BKC) 100 UNITS/ML 40 UNITS SUB-Q (21:49)
[2021-03-28] VITALS (18 sets, daily range): BP systolic 94–139; BP diastolic 53–77; PULSE 78–118; RESP 18–34; TEMP 36.2–36.7; O2SAT 95–99
[2021-03-28] MEDS: INSULIN ASPART (*BKC) 100 UNITS/ML SUB-Q ×3 (00:18→18:58)
[2021-03-28 00:20] LABS: Glucose Point of Care 248 mg/dl (65-105)
--- NOTE | 2021-03-28 04:08 | PCRCNOTE ---
Window of time for administration has passed. See next scheduled administration.
[2021-03-28] MEDS: ALBUTEROL SULFATE NEB 2.5 MG/0.5 ML INH INHALATION ×3 (04:09→13:35)
[2021-03-28 05:48] LABS: Glucose Point of Care 262 mg/dl (65-105)
[2021-03-28] MEDS: LANSOPRAZOLE ORAL SUSP 30 MG/10 ML ORAL.SUSP FEED TUBE (05:52)
[2021-03-28] MEDS: BUDESONIDE RESPULE NEB 0.5 MG/2 ML AMP INHALATION ×2 (08:32→21:50)
[2021-03-28] MEDS: ASCORBIC ACID 500 MG TABLET FEED TUBE (09:03)
[2021-03-28] MEDS: HEPARIN SODIUM 5,000 UNITS/ML VIAL 5000 UNITS SUB-Q ×2 (09:04→22:11)
[2021-03-28] MEDS: LORATADINE 10 MG TABLET FEED TUBE (09:04)
[2021-03-28] MEDS: CHLORHEXIDINE GLUCONATE 0.12% ORAL RINSE 473 ML BTL (*BKC) 15 ML SWISH/SPIT (09:04)
[2021-03-28] MEDS: guaiFENesin 200 MG/10 ML UDC FEED TUBE ×2 (09:04→17:37)
[2021-03-28] MEDS: TOPIRAMATE 25 MG TABLET 50 MG XX ×2 (09:05→22:15)
[2021-03-28] MEDS: SACCHAROMYCES BOULARDII 250 MG CAPSULE FEED TUBE ×2 (09:06→17:37)
[2021-03-28] MEDS: TOPIRAMATE 100 MG TABLET XX ×2 (09:06→22:09)
[2021-03-28] MEDS: PHENobarbital (*CRX) 60 MG TABLET FEED TUBE (09:09)
[2021-03-28] MEDS: PHENobarbitaL (*CRX) 30 MG TABLET 90 MG FEED TUBE (09:10)
[2021-03-28 11:59] LABS: Glucose Point of Care 188 mg/dl (65-105)
--- NOTE | 2021-03-28 13:32 | PM.IMPN ---
Progress Note: A&P Assessment and Plan (1) Seizure: Code(s): R56.9 - Unspecified convulsions Status: Acute Assessment and Plan: 76-year-old female with history of brain mass, dementia, admitted with seizure CT of head with no acute findings Seizure precautions Neurology was consulted, no anticonvulsants at this time Continue to monitor 03/15/2021 interval history, patient is 76-year-old female with history of brain mass currently admitted with a suspected aspiration pneumonia concerning for sepsis seen by gripper attacher being treated with ertapenem and vancomycin blood culture and MRSA are negative, patient remains clinically stable unfortunately unable to provide any review of symptoms or history, chest x-ray done yesterday showed persistent pneumonia, will switch DuoNeb as scheduled and have PT OT work with the patient. will continue to monitor and further recommendation to follow. 03/16/2021 interval history, admitte on 03/10 patient is 76-year-old female with history of brain mass chronically on dexamethasone 6mg q6, currently admitted with a suspected aspiration pneumonia concerning for sepsis seen by gripper attacher being treated with ertapenem day 7/10 and vancomycin day 4, MRSA is negative, blood culture no growth so far, has elevated WBC 2/2 steroid, D/W gripper attacher today suspect elevated latic acid most likely 2/2 to brain mass resulting in respiratory alkolosis which can cause elevated lactic acid, recommended to continue Ertapenem for total 10 days, patient remains clinically stable unfortunately unable to provide any review of symptoms or history, chest x-ray done yesterday showed persistent pneumonia, will switch DuoNeb as scheduled and have PT OT work with the patient. will continue to monitor and further recommendation to follow. Called [phone] left message. 03/17/2021 interval history, admitte on 03/10 patient remains clinically stable, unable to provide detail review of symptoms her white counts elevated compared to his baseline due to steroid, however patient does not have any fever will repeat chest x-ray and repeat blood culture, will continue present management with a ertapenem and vancomycin, will continue to monitor and further recommendation to follow. 03/18/2021 interval history, admitte on 03/10 patient remains clinically stable, unable to provide detail review of symptoms her white counts were elevated on 03/17 compared to her baseline due to steroid, steroids were stopped on 03/17 her WBC slightly lower today, repeat chest x-rays today showed improvement, blood culture done on 03/10 and repeat blood culture done on 03/17 still no growth and patient does not have any fever, Patient is seen by Dr. Hinds, Pulmonogist and in contact with the family, will continue present management with a ertapenem and vancomycin once IV is establish, I agree with Dr. Hinds, family may consider hospice for the patient as her quality of life has not improved since last year patient was seen. , will continue to monitor and further recommendation to follow 03/19/2021 interval history, admitted on 03/10 patient remains clinically stable, unable to provide detail review of symptoms her white counts were elevated on 03/17 compared to her baseline due to steroid, steroids were stopped on 03/17 her WBC slightly lower today, repeat chest x-rays 03/18 showed improvement, blood culture done on 03/10 and repeat blood culture done on 03/17 still no growth and patient does not have any fever, Patient is seen by Dr. Hinds, Pulmonogist and in contact with the family, will continue present management with a ertapenem and vancomycin once IV is establish, will continue to monitor. 03/20 Neurology reconsulted; family is requested a repeat EEG 03/21 patient still with intermittent seizures. These seem intractable. Patient otherwise obtunded and no signs of improvement upon review of her extensive chart. Admitted on 03/10/2021 history of
--- NOTE | 2021-03-28 16:28 | PM.PNPUL ---
Progress Note: A&P Assessment and Plan (1) Left leg DVT: Code(s): I82.402 - Acute embolism and thrombosis of unspecified deep veins of left lower extremity Status: Acute Assessment and Plan: 03/21 Patient with a history of seizures and brain cancer and now with a below the knee left lower extremity DVT. Neurology has been consulted to provide an opinion about the safety of therapeutic anticoagulation for her below knee DVT. if they feel she can safely be fully anticoagulated then I would treat her DVT with full-dose anticoagulation for 6 months given her history of cancer and bed-bound state. Follow-up ultrasound in the future to ensure that there is no progression while she is and anticoagulated. If Neurology states her brain cancer and seizures preclude her from therapeutic anticoagulation then I would follow her left lower extremity DVT for progression as the family and POA do not wish for an IVC filter at this time. If this DVT progresses I would readdress the progression with the family at that time and the recommendation for and IVC filter. 03/28 currently there are no active pulmonary issues. There is no evidence of any pneumonia or and respiratory infection. She can't be anticoagulated for her below knee DVT because of her brain tumor and seizures. She remains on prophylactic heparin 5000 q.12 hours and I would continue that for now. I would wean her oxygen to maintain saturations 90-94%. A family member was in the room and had another family member who is a physician on face time and I discussed the case from my perspective with them. I told him there were no active pulmonary issues at this time and that she remains debilitated, bed-bound, aphasic requiring total care. When I asked them what the ultimate plan was they mentioned her going back to the detention But they were concerned about her quality of care at the detention. The family did bring up the possibility of speaking to the [place] hospice team and I think this should be pursued. Since the family is concerned about her quality of care at a detention, I did bring up an option of her being placed on hospice and discharged to the comfort of a family member's house. Discussions will follow with the POA. Discussed with Dr. Cardenas, will sign off, please call with any additional questions. Subjective Date/time seen: 03/28/21 16:28 Interval history: 03/21 Patient remains on room air with saturations 93%. Patient is nonverbal and aphasic sh not following any commands at this time. She is off antibiotics. Neurology has been consulted to provide an opinion about the safety of therapeutic anticoagulation for her below knee DVT. 03/28 follow-up at the request of the family and the hospitalist. Per the chart neurology has recommended against anticoagulation due to her brain cancer and seizures. She has been maintained on heparin 5000 q.12 hours. she remains afebrile. Her white blood cell count is 12.7 and she is on 2 L nasal cannula with saturations 95-99%. She remains off antibiotics. She has had continued seizure and Neurology has been titrating her medicines. There has been no change in her overall condition. She remains bed-bound aphasic and Today is unresponsive to sternal rub. Review of Systems Review of Systems: ROS unobtainable: Yes unobtainable due to medical condition Exam Const: General: no acute distress and ill appearing Orientation/consciousness: oriented to place HENMT: Head: normal to inspection Ears: hearing grossly normal bilaterally Mouth: Yes Normal oral and palatal mucosa present Throat: tonsils absent Eyes: General: appearance normal, both eyes and all related structures Neck: Neck: normal visual inspection Chest: Chest palpation & inspection: normal inspection of the chest Resp: Effort & Inspection: normal respiratory effort Auscultation: no crackles, no rales, no rhonchi and no wheezes Cardio:
[2021-03-28 18:57] LABS: Glucose Point of Care 280 mg/dl (65-105)
[2021-03-28] MEDS: levETIRAcetam ORAL SOL 500 MG/5 ML UDC FEED TUBE (22:16)
[2021-03-28] MEDS: BACLOFEN 5 MG TABLET FEED TUBE (22:16)
[2021-03-28] MEDS: INSULIN GLARGINE (*BKC) 100 UNITS/ML 40 UNITS SUB-Q (22:18)
[2021-03-28 22:24] LABS: Glucose Point of Care 167 mg/dl (65-105)
[2021-03-29] VITALS (12 sets, daily range): BP systolic 83–131; BP diastolic 44–58; PULSE 93–122; RESP 18–32; TEMP 36.4–38.1; O2SAT 95–99
[2021-03-29 00:59] LABS: Glucose Point of Care 174 mg/dl (65-105)
[2021-03-29] MEDS: LANSOPRAZOLE ORAL SUSP 30 MG/10 ML ORAL.SUSP FEED TUBE (06:21)
[2021-03-29] MEDS: INSULIN ASPART (*BKC) 100 UNITS/ML SUB-Q ×3 (06:30→17:56)
[2021-03-29 06:32] LABS: Glucose Point of Care 274 mg/dl (65-105)
[2021-03-29 08:17] LABS: Glucose Point of Care 221 mg/dl (65-105)
[2021-03-29] MEDS: BUDESONIDE RESPULE NEB 0.5 MG/2 ML AMP INHALATION (09:19)
[2021-03-29] MEDS: ASCORBIC ACID 500 MG TABLET FEED TUBE (10:13)
[2021-03-29] MEDS: levETIRAcetam ORAL SOL 500 MG/5 ML UDC FEED TUBE ×2 (10:13→21:26)
[2021-03-29] MEDS: HEPARIN SODIUM 5,000 UNITS/ML VIAL 5000 UNITS SUB-Q ×2 (10:13→21:25)
[2021-03-29] MEDS: guaiFENesin 200 MG/10 ML UDC FEED TUBE ×2 (10:13→17:54)
[2021-03-29] MEDS: SACCHAROMYCES BOULARDII 250 MG CAPSULE FEED TUBE ×2 (10:14→17:54)
[2021-03-29] MEDS: LORATADINE 10 MG TABLET FEED TUBE (10:14)
[2021-03-29] MEDS: TOPIRAMATE 25 MG TABLET 50 MG XX ×2 (10:15→21:26)
[2021-03-29] MEDS: TOPIRAMATE 100 MG TABLET XX ×2 (10:30→21:26)
[2021-03-29 11:41] LABS: Glucose Point of Care 222 mg/dl (65-105)
--- NOTE | 2021-03-29 14:45 | PM.PNPUL ---
Progress Note: A&P Assessment and Plan (1) Left leg DVT: Code(s): I82.402 - Acute embolism and thrombosis of unspecified deep veins of left lower extremity Status: Acute Assessment and Plan: 03/21 Patient with a history of seizures and brain cancer and now with a below the knee left lower extremity DVT. Neurology has been consulted to provide an opinion about the safety of therapeutic anticoagulation for her below knee DVT. if they feel she can safely be fully anticoagulated then I would treat her DVT with full-dose anticoagulation for 6 months given her history of cancer and bed-bound state. Follow-up ultrasound in the future to ensure that there is no progression while she is and anticoagulated. If Neurology states her brain cancer and seizures preclude her from therapeutic anticoagulation then I would follow her left lower extremity DVT for progression as the family and POA do not wish for an IVC filter at this time. If this DVT progresses I would readdress the progression with the family at that time and the recommendation for and IVC filter. 03/28 currently there are no active pulmonary issues. There is no evidence of any pneumonia or and respiratory infection. She can't be anticoagulated for her below knee DVT because of her brain tumor and seizures. She remains on prophylactic heparin 5000 q.12 hours and I would continue that for now. I would wean her oxygen to maintain saturations 90-94%. A family member was in the room and had another family member who is a physician on face time and I discussed the case from my perspective with them. I told him there were no active pulmonary issues at this time and that she remains debilitated, bed-bound, aphasic requiring total care. When I asked them what the ultimate plan was they mentioned her going back to the assisted But they were concerned about her quality of care at the assisted. The family did bring up the possibility of speaking to the [place] hospice team and I think this should be pursued. Since the family is concerned about her quality of care at a assisted, I did bring up an option of her being placed on hospice and discharged to the comfort of a family member's house. Discussions will follow with the POA. 03/29 I had discussion with the POA boyd palmer and additional family members on speaker phone regarding the utility of a repeat lower extremity Doppler. The patient is not a anticoagulation candidate due to her brain tumor and seizures. Previous a had told the medical team that they were unwilling to pursue a IVC filter so no lower extremity Dopplers were repeated. I explained the same situation to them today and at this time they told me they would like to know whether her clot has extended are not and that if it has extended they may consider an IVC filter. I recommended against an IVC filter given her overall condition. None the less at this time I will repeat a lower extremity Doppler. Discussed with Dr. Cardenas. Subjective Date/time seen: 03/29/21 14:45 Interval history: 03/21 Patient remains on room air with saturations 93%. Patient is nonverbal and aphasic sh not following any commands at this time. She is off antibiotics. Neurology has been consulted to provide an opinion about the safety of therapeutic anticoagulation for her below knee DVT. 03/28 follow-up at the request of the family and the hospitalist. Per the chart neurology has recommended against anticoagulation due to her brain cancer and seizures. She has been maintained on heparin 5000 q.12 hours. she remains afebrile. Her white blood cell count is 12.7 and she is on 2 L nasal cannula with saturations 95-99%. She remains off antibiotics. She has had continued seizure and Neurology has been titrating her medicines. There has been no change in her overall condition. She remains bed-bound aphasic and Today is unresponsive to sternal rub. 03/29 patient remains clin
--- NOTE | 2021-03-29 16:55 | PM.IMPN ---
Progress Note: A&P Assessment and Plan (1) Seizure: Code(s): R56.9 - Unspecified convulsions Status: Acute Assessment and Plan: 76-year-old female with history of brain mass, dementia, admitted with seizure CT of head with no acute findings Seizure precautions Neurology was consulted, no anticonvulsants at this time Continue to monitor 03/15/2021 interval history, patient is 76-year-old female with history of brain mass currently admitted with a suspected aspiration pneumonia concerning for sepsis seen by bus steward being treated with ertapenem and vancomycin blood culture and MRSA are negative, patient remains clinically stable unfortunately unable to provide any review of symptoms or history, chest x-ray done yesterday showed persistent pneumonia, will switch DuoNeb as scheduled and have PT OT work with the patient. will continue to monitor and further recommendation to follow. 03/16/2021 interval history, admitte on 03/10 patient is 76-year-old female with history of brain mass chronically on dexamethasone 6mg q6, currently admitted with a suspected aspiration pneumonia concerning for sepsis seen by bus steward being treated with ertapenem day 7/10 and vancomycin day 4, MRSA is negative, blood culture no growth so far, has elevated WBC 2/2 steroid, D/W bus steward today suspect elevated latic acid most likely 2/2 to brain mass resulting in respiratory alkolosis which can cause elevated lactic acid, recommended to continue Ertapenem for total 10 days, patient remains clinically stable unfortunately unable to provide any review of symptoms or history, chest x-ray done yesterday showed persistent pneumonia, will switch DuoNeb as scheduled and have PT OT work with the patient. will continue to monitor and further recommendation to follow. Called [phone] left message. 03/17/2021 interval history, admitte on 03/10 patient remains clinically stable, unable to provide detail review of symptoms her white counts elevated compared to his baseline due to steroid, however patient does not have any fever will repeat chest x-ray and repeat blood culture, will continue present management with a ertapenem and vancomycin, will continue to monitor and further recommendation to follow. 03/18/2021 interval history, admitte on 03/10 patient remains clinically stable, unable to provide detail review of symptoms her white counts were elevated on 03/17 compared to her baseline due to steroid, steroids were stopped on 03/17 her WBC slightly lower today, repeat chest x-rays today showed improvement, blood culture done on 03/10 and repeat blood culture done on 03/17 still no growth and patient does not have any fever, Patient is seen by Dr. Hinds, Pulmonogist and in contact with the family, will continue present management with a ertapenem and vancomycin once IV is establish, I agree with Dr. Hinds, family may consider hospice for the patient as her quality of life has not improved since last year patient was seen. , will continue to monitor and further recommendation to follow 03/19/2021 interval history, admitted on 03/10 patient remains clinically stable, unable to provide detail review of symptoms her white counts were elevated on 03/17 compared to her baseline due to steroid, steroids were stopped on 03/17 her WBC slightly lower today, repeat chest x-rays 03/18 showed improvement, blood culture done on 03/10 and repeat blood culture done on 03/17 still no growth and patient does not have any fever, Patient is seen by Dr. Hinds, Pulmonogist and in contact with the family, will continue present management with a ertapenem and vancomycin once IV is establish, will continue to monitor. 03/20 Neurology reconsulted; family is requested a repeat EEG 03/21 patient still with intermittent seizures. These seem intractable. Patient otherwise obtunded and no signs of improvement upon review of her extensive chart. Admitted on 03/10/2021 history of
[2021-03-29 19:10] LABS: Glucose Point of Care 215 mg/dl (65-105)
[2021-03-29] MEDS: INSULIN GLARGINE (*BKC) 100 UNITS/ML 40 UNITS SUB-Q (20:41)
[2021-03-29] MEDS: BACLOFEN 5 MG TABLET FEED TUBE (21:26)
[2021-03-29 21:45] LABS: Glucose Point of Care 229 mg/dl (65-105)
[2021-03-30] MEDS: INSULIN ASPART (*BKC) 100 UNITS/ML SUB-Q ×3 (00:37→12:53)
[2021-03-30 00:45] LABS: Glucose Point of Care 233 mg/dl (65-105)
--- NOTE | 2021-03-30 01:08 | PCRCNOTE ---
Budesonide nebulizer treatment scheduled for 03/29/21 at 20:00 not administered. RT not available during administration window due to priorities in Emergency Department.
[2021-03-30] MEDS: LANSOPRAZOLE ORAL SUSP 30 MG/10 ML ORAL.SUSP FEED TUBE (05:20)
[2021-03-30 05:39] LABS: Glucose Point of Care 254 mg/dl (65-105)
[2021-03-30 06:00] VITALS: BP 116/46; PULSE 111; RESP 16; TEMP 37.5; O2SAT 100
[2021-03-30 08:00] VITALS: PULSE 114; O2SAT 100
[2021-03-30] MEDS: levETIRAcetam ORAL SOL 500 MG/5 ML UDC FEED TUBE (09:00)
[2021-03-30] MEDS: ASCORBIC ACID 500 MG TABLET FEED TUBE (09:00)
[2021-03-30] MEDS: guaiFENesin 200 MG/10 ML UDC FEED TUBE (09:00)
[2021-03-30] MEDS: HEPARIN SODIUM 5,000 UNITS/ML VIAL 5000 UNITS SUB-Q (09:01)
[2021-03-30] MEDS: TOPIRAMATE 25 MG TABLET 50 MG XX (09:01)
[2021-03-30] MEDS: LORATADINE 10 MG TABLET FEED TUBE (09:01)
[2021-03-30] MEDS: SACCHAROMYCES BOULARDII 250 MG CAPSULE FEED TUBE (09:01)
[2021-03-30] MEDS: TOPIRAMATE 100 MG TABLET XX (09:05)
[2021-03-30] MEDS: LACTULOSE 20 GM/30 ML UDC 10 GM FEED TUBE (09:06)
--- NOTE | 2021-03-30 10:26 | PM.DS ---
DS: Admitting Diagnosis Discharge Date 03/30/2021 Admitting Diagnosis seizure DS: Discharge Diagnosis Discharge Diagnosis (1) Seizure: Code(s): R56.9 - Unspecified convulsions Status: Acute Assessment and Plan: 76-year-old female with history of brain mass, dementia, admitted with seizure CT of head with no acute findings Seizure precautions Neurology was consulted, no anticonvulsants at this time Continue to monitor 03/15/2021 interval history, patient is 76-year-old female with history of brain mass currently admitted with a suspected aspiration pneumonia concerning for sepsis seen by rn appeals being treated with ertapenem and vancomycin blood culture and MRSA are negative, patient remains clinically stable unfortunately unable to provide any review of symptoms or history, chest x-ray done yesterday showed persistent pneumonia, will switch DuoNeb as scheduled and have PT OT work with the patient. will continue to monitor and further recommendation to follow. 03/16/2021 interval history, admitte on 03/10 patient is 76-year-old female with history of brain mass chronically on dexamethasone 6mg q6, currently admitted with a suspected aspiration pneumonia concerning for sepsis seen by rn appeals being treated with ertapenem day 7/10 and vancomycin day 4, MRSA is negative, blood culture no growth so far, has elevated WBC 2/2 steroid, D/W rn appeals today suspect elevated latic acid most likely 2/2 to brain mass resulting in respiratory alkolosis which can cause elevated lactic acid, recommended to continue Ertapenem for total 10 days, patient remains clinically stable unfortunately unable to provide any review of symptoms or history, chest x-ray done yesterday showed persistent pneumonia, will switch DuoNeb as scheduled and have PT OT work with the patient. will continue to monitor and further recommendation to follow. Called [phone] left message. 03/17/2021 interval history, admitte on 03/10 patient remains clinically stable, unable to provide detail review of symptoms her white counts elevated compared to his baseline due to steroid, however patient does not have any fever will repeat chest x-ray and repeat blood culture, will continue present management with a ertapenem and vancomycin, will continue to monitor and further recommendation to follow. 03/18/2021 interval history, admitte on 03/10 patient remains clinically stable, unable to provide detail review of symptoms her white counts were elevated on 03/17 compared to her baseline due to steroid, steroids were stopped on 03/17 her WBC slightly lower today, repeat chest x-rays today showed improvement, blood culture done on 03/10 and repeat blood culture done on 03/17 still no growth and patient does not have any fever, Patient is seen by Dr. Hinds, Pulmonogist and in contact with the family, will continue present management with a ertapenem and vancomycin once IV is establish, I agree with Dr. Hinds, family may consider hospice for the patient as her quality of life has not improved since last year patient was seen. , will continue to monitor and further recommendation to follow 03/19/2021 interval history, admitted on 03/10 patient remains clinically stable, unable to provide detail review of symptoms her white counts were elevated on 03/17 compared to her baseline due to steroid, steroids were stopped on 03/17 her WBC slightly lower today, repeat chest x-rays 03/18 showed improvement, blood culture done on 03/10 and repeat blood culture done on 03/17 still no growth and patient does not have any fever, Patient is seen by Dr. Hinds, Pulmonogist and in contact with the family, will continue present management with a ertapenem and vancomycin once IV is establish, will continue to monitor. 03/20 Neurology reconsulted; family is requested a repeat EEG 03/21 patient still with intermittent seizures. These seem intractable. Patient otherwise obtunded and no
--- NOTE | 2021-03-30 11:09 | PM.PNPUL ---
Progress Note: A&P Assessment and Plan (1) Left leg DVT: Code(s): I82.402 - Acute embolism and thrombosis of unspecified deep veins of left lower extremity Status: Acute Assessment and Plan: 03/21 Patient with a history of seizures and brain cancer and now with a below the knee left lower extremity DVT. Neurology has been consulted to provide an opinion about the safety of therapeutic anticoagulation for her below knee DVT. if they feel she can safely be fully anticoagulated then I would treat her DVT with full-dose anticoagulation for 6 months given her history of cancer and bed-bound state. Follow-up ultrasound in the future to ensure that there is no progression while she is and anticoagulated. If Neurology states her brain cancer and seizures preclude her from therapeutic anticoagulation then I would follow her left lower extremity DVT for progression as the family and POA do not wish for an IVC filter at this time. If this DVT progresses I would readdress the progression with the family at that time and the recommendation for and IVC filter. 03/28 currently there are no active pulmonary issues. There is no evidence of any pneumonia or and respiratory infection. She can't be anticoagulated for her below knee DVT because of her brain tumor and seizures. She remains on prophylactic heparin 5000 q.12 hours and I would continue that for now. I would wean her oxygen to maintain saturations 90-94%. A family member was in the room and had another family member who is a physician on face time and I discussed the case from my perspective with them. I told him there were no active pulmonary issues at this time and that she remains debilitated, bed-bound, aphasic requiring total care. When I asked them what the ultimate plan was they mentioned [facility] But they were concerned about her quality of care at the [facility]. The family did bring up the possibility of speaking to the [facility] hospice team and I think this should be pursued. Since the family is concerned about her quality of care at a [facility], I did bring up an option of her being placed on hospice and discharged to the comfort of a family member's house. Discussions will follow with the POA. 03/29 I had discussion with the POA Julia and additional family members on speaker phone regarding the utility of a repeat lower extremity Doppler. The patient is not a anticoagulation candidate due to her brain tumor and seizures. Previous a had told the medical team that they were unwilling to pursue a IVC filter so no lower extremity Dopplers were repeated. I explained the same situation to them today and at this time they told me they would like to know whether her clot has extended are not and that if it has extended they may consider an IVC filter. I recommended against an IVC filter given her overall condition. None the less at this time I will repeat a lower extremity Doppler. Lower extremity Dopplers on 03/29/2020 later in the day were negative for DVT. 03/30 Patient remains clinically unchanged. She is bedbound, aphasic, not following commands. She opens her eyes to sternal rub. Saturations on 2 L nasal cannula are 99-100%. I called least a Lenin the POA and left a message on her voicemail. Discussed with Dr. Cardenas, will sign off, call with questions. Subjective Date/time seen: 03/30/21 11:09 Interval history: 03/21 Patient remains on room air with saturations 93%. Patient is nonverbal and aphasic she is not following any commands at this time. She is off antibiotics. Neurology has been consulted to provide an opinion about the safety of therapeutic anticoagulation for her below knee DVT. 03/28 follow-up at the request of the family and the hospitalist. Per the chart neurology has recommended against anticoagulation due to her brain cancer and seizures. She has been maintained on heparin 5000 q.12 hours. she remains afeb
[2021-03-30 11:15] LABS: EDCOVIDSCREEN Negative (Negative)
--- NOTE | 2021-03-30 11:21 | PCNFU ---
Nutrition Follow-Up Complete: Swallowing difficulties related to dysphagia, seizure, brain tumor, and aspiration as evidenced by tube feeding Goal: Meet nutritional needs Pt. is progressing towards goal. No new goal at this time. Pt current nutrition is Glucerna 1.2 at 60 mls per hour over 22 hours per day. Last recorded weight is 66.3 kg. Recommend re-weighing pt. prior to discharge to monitor weight fluctuation. Bowel Motility: + BM 03/29/2021 Labs Reviewed: POC Capillary Glucose: 254 Meds Noted: Vitamin C, Budesonide, Bisacodyl, Glucagon, Glucose, Novolog, Heparin Sodium, Lantus, Lactulose, Keppra, Florastor, Topiramate Skin: No skin breakdown at this time. WNL. Additional Notes: Patient is tolerating tube feeding well at this time. Feeding is providing pt. with 1584 calories, 79 grams of protein and 1063 mls of water with a 30 ml water flush q4 providing an additional 180 mls of water. Monitor labs, medications, wt, and residuals every T/F
[2021-03-30 12:00] VITALS: PULSE 113
[2021-03-30 12:51] LABS: Glucose Point of Care 261 mg/dl (65-105)
[2021-03-30] MEDS: BUDESONIDE RESPULE NEB 0.5 MG/2 ML AMP INHALATION (13:37)
[2021-03-30 14:00] VITALS: BP 113/46; PULSE 114; RESP 18; TEMP 36.3; O2SAT 99
== END 2021-03-30 15:45 | DRG 177 ==
LOC: ANHED 12:22 → ANH3MEDSUR 18:00 → ANH2MED 19:14 → ANH3MEDSUR 20:46
PROVIDERS: Family Medicine; Hospitalist; Internal Medicine; Internal Medicine Pulmonary Disease; Nurse Practitioner; Nurse Practitioner Adult Health; Physician Assistant; Admitting Provider Internal Medicine; Emergency Provider Emergency Medicine; PCP Internal Medicine; Visit Provider Family Medicine
DX: J69.0 Pneumonitis due to inhalation of food and vomit (principal); J96.00 Acute respiratory failure, unspecified whether with hypoxia or hypercapnia; E87.3 Alkalosis; I82.402 Acute embolism and thrombosis of unspecified deep veins of left lower extremity; R00.1 Bradycardia, unspecified; R56.9 Unspecified convulsions; G93.89 Other specified disorders of brain; Z85.841 Personal history of malignant neoplasm of brain; Z20.822 Contact with and (suspected) exposure to COVID-19; D64.9 Anemia, unspecified; F03.90 Unspecified dementia, unspecified severity, without behavioral disturbance, psychotic disturbance, mood disturbance, and anxiety; D72.829 Elevated white blood cell count, unspecified; K21.9 Gastro-esophageal reflux disease without esophagitis; E11.9 Type 2 diabetes mellitus without complications; R13.10 Dysphagia, unspecified; Z74.01 Bed confinement status; Z79.4 Long term (current) use of insulin; Z79.899 Other long term (current) drug therapy; Z86.16 Personal history of COVID-19; Z87.440 Personal history of urinary (tract) infections; Z87.891 Personal history of nicotine dependence; Z88.2 Allergy status to sulfonamides; Z92.3 Personal history of irradiation; Z93.1 Gastrostomy status; Z97.8 Presence of other specified devices; Z98.890 Other specified postprocedural states; Z91.041 Radiographic dye allergy status
CPT/HCPCS: 36415; 36600; 70450; 70551; 71045; 71250; 74018; 80048; 80053; 80202; 81001; 82140; 82375; 82805; 82948; 83036; 83050; 83605; 83690; 83735; 83880; 84100; 84145; 84443; 85025; 85027; 85380; 85610; 85730; 86140; 87040; 87070; 87081; 87205; 87426; 93005; 93306; 93970; 94640; 95816; 96361; 96365; 96366; 96367; 96375; 96376; 97163; 99285; A4248; A9270; C9803; G0378; J0696; J1100; J1335; J1644; J1815; J1940; J1953; J2060; J2543; J3370; J7030; J8540

== ENCOUNTER 2021-04-08 17:59 | Emergency (ER) | payer MEDICARE, MEDICAID, SELFPAY ==
[2021-04-08] VITALS (7 sets, daily range): BP systolic 129–143; BP diastolic 67–81; PULSE 108–111; RESP 17–18; TEMP 36.6; O2SAT 97–100
--- NOTE | 2021-04-08 18:21 | ED.GENADULT ---
HPI - General Adult General Chief complaint: Unspecified Stated complaint: CLOGGED G TUBE Time Seen by Provider: 04/08/21 18:02 History of Present Illness HPI narrative: Patient is a 76-year-old female who presents ER with a clogged G-tube. Patient with history of dysphagia and aspiration pneumonia requiring G-tube placement. Patient also with history of oligodendroglioma and seizure. Patient was at her retirement and could not receive tube feeds due to clogged G-tube and was sent here. Related Data Home Medications Medication Instructions Recorded Confirmed ascorbic acid (vitamin C) [Vitamin 500 mg FEEDING TUBE DAILY 03/16/20 03/08/21 C] cholecalciferol (vitamin D3) 1,250 mcg FEEDING TUBE WEEKLY 03/17/20 03/08/21 lactulose 15 ml FEEDING TUBE Q8H PRN 03/17/20 03/08/21 Fleet Enema 118 ml RECTAL DAILY PRN 12/26/20 03/08/21 umeclidinium-vilanterol 1 inh INHALATION DAILY PRN 12/26/20 03/08/21 bisacodyl 10 mg RECTAL DAILY PRN 01/01/21 03/08/21 d-mannose 500 mg DAILY 01/01/21 03/08/21 diclofenac sodium 1 applic TOPICAL BID PRN 01/01/21 03/08/21 magnesium citrate [Citroma] 296 ml FEEDING TUBE DAILY PRN 01/01/21 03/08/21 magnesium hydroxide 30 ml FEEDING TUBE HS PRN 01/01/21 03/08/21 ondansetron HCl 4 mg FEEDING TUBE Q6H PRN 01/01/21 03/08/21 Basaglar AgnieszkaikPen U-100 Insulin 20 unit SUBCUT HS 01/26/21 03/08/21 Saccharomyces boulardii [Florastor] 250 mg FEEDING TUBE BID 01/26/21 03/08/21 omeprazole 20 mg FEEDING TUBE BID 01/26/21 03/08/21 acetaminophen [Mapap 650 mg FEEDING TUBE Q8H PRN 02/28/21 03/08/21 (acetaminophen)] baclofen 5 mg FEEDING TUBE HS 02/28/21 03/08/21 cetirizine [Allergy Relief 10 mg FEEDING TUBE DAILY 02/28/21 03/08/21 (cetirizine)] chlorhexidine gluconate [Peridex] 15 ml BUCCAL BID 02/28/21 03/08/21 insulin aspart U-100 [Novolog 1 sliding scale dose SUBCUT 02/28/21 03/08/21 Flexpen U-100 Insulin] USEASDIRECTD Allergies Allergy/AdvReac Type Severity Reaction Status Date / Time shellfish derived Allergy Unknown Hives Verified 04/08/21 18:07 codeine Allergy Unknown Verified 04/08/21 18:07 erythromycin base Allergy Unknown Verified 04/08/21 18:07 hydrocodone Allergy Unknown Verified 04/08/21 18:07 ibuprofen Allergy Unknown Verified 04/08/21 18:07 Iodinated Contrast Media Allergy Unknown Verified 04/08/21 18:07 meperidine Allergy Unknown Verified 04/08/21 18:07 mepivacaine [From Carbocaine] Allergy Unknown Verified 04/08/21 18:07 propoxycaine Allergy Unknown Verified 04/08/21 18:07 propoxyphene Allergy Unknown Verified 04/08/21 18:07 Sulfa (Sulfonamide Allergy Unknown Verified 04/08/21 18:07 Antibiotics) Review of Systems Review of Systems: ROS unobtainable: Yes unobtainable due to medical condition PMFSH Past Medical History Medical History Chronic anemia Chronic GERD Chronic indwelling Hodge catheter Dementia Dysphagia Peg tube in-situ. Elevated transaminase level Appears chronic. 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 Surgical History Surgical History Gastrointestinal tube in situ (~02/2020) History of craniotomy Right frontal lobe craniotomy with resection of oligodendroglioma. Family History Family History Mother Diabetes mellitus Father Lung cancer Sibling Breast cancer she has Sibling Breast cancer Father Lung cancer Social History Social History Social History: The patient is a resident at a local retirement. She is a former smoker. No alcohol or illicit substance use. Julia Phelps is her healthcare power quality assurance supervisor trim. Code status: Modified code, no CPR. Smoking status:
--- NOTE | 2021-04-08 18:28 | PC.NURSE ---
pt had clogged gtube cleared by Dr Jacobson, cleaned and flushed.
--- NOTE | 2021-04-08 18:37 | PC.NURSE ---
[facility] accepted return eta 1943 trip # [id number]
--- NOTE | 2021-04-08 19:17 | PC.NURSE ---
family called and asked that provider check pressure sore to coccyx area of the pt. no redness or irritation noted. new dressing applied to area
== END 2021-04-08 19:43 ==
PROVIDERS: Emergency Provider Emergency Medicine; PCP Internal Medicine
DX: K94.23 Gastrostomy malfunction (principal); E11.9 Type 2 diabetes mellitus without complications; K21.9 Gastro-esophageal reflux disease without esophagitis; D64.9 Anemia, unspecified; F03.90 Unspecified dementia, unspecified severity, without behavioral disturbance, psychotic disturbance, mood disturbance, and anxiety; L89.153 Pressure ulcer of sacral region, stage 3; Z85.841 Personal history of malignant neoplasm of brain; Z92.3 Personal history of irradiation; Z87.442 Personal history of urinary calculi; Z79.4 Long term (current) use of insulin
CPT/HCPCS: 99281

== ENCOUNTER 2021-04-15 07:54 | Inpatient (IN) | payer MEDICARE, MEDICAID, SELFPAY ==
[2021-04-15] VITALS (71 sets, daily range): BP systolic 75–170; BP diastolic 36–90; PULSE 70–146; RESP 20–43; TEMP 35.7–38.8; O2SAT 69–100; BMI 26.4
--- NOTE | ~2021-04-15 | XR_ITS ---
EXAMINATION: XR chest 1V portable DATE: 04/24/2021 06:08 INDICATION: Pneumonia. Respiratory failure. TECHNIQUE: A single frontal view of the chest was obtained. COMPARISON: Chest single view 04/23/21, chest CT 04/15/2021 FINDINGS: There are airspace opacities in right lower lung zone. There are airspace opacities in left lung with a perihilar and lower lung predominance. No pleural effusion or pneumothorax. The heart si ze is normal. The endotracheal tube tip is 3.1 cm above the ruchi. A right upper extremity periphera lly inserted central venous catheter (PICC) is seen with tip at the superior cavoatrial junction. IMPRESSION: 1. Airspace opacities in left lung and right lower lung zone with worsening at left lung base, consis tent with pneumonia. Reviewed, dictated and finalized at location A. DENT ENGINEER IMPRESSION: 1. Airspace opacities in left lung and right lower lung zone with worsening at left lung base, consistent with pneumonia.
--- NOTE | ~2021-04-15 | XR_ITS ---
XR chest ET placement DATE: 04/15/2021 08:20 INDICATION: ET tube placement TECHNIQUE: Portable AP chest on 04/15/2021 at 0814 hours COMPARISON: 03/28/2021 portable AP chest FINDINGS: ET tube 2.2 cm above ruchi in satisfactory position. There is extensive patchy consolidation of the left mid to upper lung and opacification of the left l ower lung, with leftward shift of heart and mediastinum consistent with left lung volume loss. There is compensatory hyperaeration of the right lung. No right lung infiltrate is evident. No right pleural effusion is noted. The left costophrenic angle is obscured by the lung opacification. There is aortic arch calcification. Cardiac megaly is suggested. No pneumothorax. Diffuse osteopenia. IMPRESSION: Left lung volume loss and extensive consolidation, particularly in the left lower lobe wh ich is largely opacified Reviewed, dictated and finalized at Location A. Reviewed, dictated and finalized at location A. SUGAR OPERATOR HEAD IMPRESSION: Left lung volume loss and extensive consolidation, particularly in the left lower lobe which is largely opacified
--- NOTE | ~2021-04-15 | US_ITS ---
EXAMINATION: US venous doppler [facility] EXAM DATE: 04/16/2021 12:32 INDICATION: Peroneal DVT. TECHNIQUE: Multiple grayscale, color flow and Doppler images of the lower extremity deep venous syste ms bilaterally were obtained and reviewed. Comparison is made to prior examination from 03/29/2021. FINDINGS: Right side: The right common femoral, femoral and profunda veins demonstrate normal color flow, respi ratory variation, augmentation and compressibility. Compressibility, color flow confirmed within the right popliteal, posterior tibial, peroneal, and greater saphenous veins. Left side: The left common femoral, femoral and profunda veins demonstrate normal color flow, respira tory variation, augmentation and compressibility. Compressibility, color flow confirmed within the l eft popliteal, posterior tibial, peroneal, and greater saphenous veins. IMPRESSION: Left peroneal vein confirmed patent. No lower extremity deep venous thrombosis bilaterall y. Reviewed, dictated and finalized at location A. CAMP UNIT LEADER IMPRESSION: Left peroneal vein confirmed patent. No lower extremity deep venous thrombosis bilaterally.
--- NOTE | ~2021-04-15 | CT_ITS ---
EXAMINATION: CT brain wo con DATE: 04/15/2021 09:48 INDICATION: Found unresponsive. Altered mental state. TECHNIQUE: Computed tomography (CT) of the head was performed without intravenous contrast. The mA wa s adjusted according to patient size. Iterative reconstruction technique was employed. Exam dose: 60 5.33 mGy-cm total exam DLP. COMPARISON: 03/22/2021 MRI brain/brainstem 03/07/2021 CT brain FINDINGS: Status post right frontal craniotomy with large right frontal lobe resection. Left vertebra l artery and prominent bilateral carotid siphon internal carotid artery calcifications. Again noted is a large infiltrative partially calcified mass in the right frontal parietal area, with right insular and basal ganglia and thalamic involvement in addition to left medial frontal lobe ext ension. 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 This appears relatively stable since 02/21. There is diminished attenuation of the cerebral white matter particularly in the frontal areas, likel y due to postradiation change. No new intracranial mass lesion or intracranial hemorrhage, or interval new mass effect is evident. N o subdural or epidural hematoma. Moderate central and cortical cerebral atrophy. IMPRESSION: No significant change since 03/07/2021 Reviewed, dictated and finalized at Location A. Reviewed, dictated and finalized at location A. D DESIGN ENGINEER
--- NOTE | ~2021-04-15 | XR_ITS ---
EXAMINATION: XR chest 1V portable EXAM DATE: 04/20/2021 05:48 INDICATION: pneumonia, acute respiratory failure. TECHNIQUE: Portable AP frontal chest x-ray was obtained. 04/19/2021 FINDINGS: Endotracheal tube tip is 1-2 centimeters above the ruchi. There is a right-sided PICC alicia e in position. Low lung volume. There is moderate amount of left-sided, small to moderate amount of right-sided ill- defined pneumonia and/or edema. There are no sizable pleural effusions. There is no pneumothorax s uspected. Cardiomediastinal silhouette is normal. There are bony degenerative changes. There is no significant interval change. IMPRESSION: 1. Line and tube(s) in position. 2. Bilateral pneumonia or edema. Reviewed, dictated and finalized at location A. RACY CONSULTANT
--- NOTE | ~2021-04-15 | CT_ITS ---
EXAMINATION: CT chest high resolution wo co DATE: 04/15/2021 09:48 INDICATION: Shortness of breath TECHNIQUE: Computed tomography (CT) of the chest was performed without intravenous contrast. Automate d exposure control and iterative reconstruction technique were employed. Exam dose: 234.65 mGy-cm to ashley exam DLP. COMPARISON: 04/15/2021 portable AP chest 03/09/2021 CT chest FINDINGS: An endotracheal tube is present. Normal heart size. No pericardial effusion. There is thoracic aortic, great vessel and coronary artery calcification. No thoracic aortic aneurysm . There is prominent consolidation in the left perihilar area and left lower lobe. There is patchy infi ltrate in the left upper lobe and left lower lobe as well as right lower lobe. Moderate emphysematous changes. Small sliding hiatal hernia. A diverticulum of the splenic flexure of the colon is noted. IMPRESSION: Bilateral pulmonary infiltrates, much more prominent on the left, including prominent pe rihilar consolidation including suprahilar and infrahilar areas and patchy infiltrate throughout the remainder of the left upper and lower lobes and patchy right lower lobe infiltrate Continued follow-up is recommended to exclude any endobronchial obstructing lesion, particularly at t he left lower lobe, in this patient with evidence of moderate emphysema Reviewed, dictated and finalized at Location A. Reviewed, dictated and finalized at location A. ORATE RELATIONS MANAGER IMPRESSION: Bilateral pulmonary infiltrates, much more prominent on the left, including prominent perihilar consolidation including suprahilar and infrahilar areas and patchy infiltrate throughout the remainder of the left upper and low er lobes and patchy right lower lobe infiltrate Continued follow-up is recommended to exclude any endobronchial obstructing les ion, particularly at the left lower lobe, in this patient with evidence of mode rate emphysema
--- NOTE | ~2021-04-15 | XR_ITS ---
EXAMINATION: XR chest 1V portable DATE: 04/23/2021 07:05 INDICATION: Pneumonia. Respiratory failure. TECHNIQUE: A single frontal view of the chest was obtained. COMPARISON: Chest single view 04/22/2021, chest CT 04/15/2021 FINDINGS: There are patchy airspace opacities in left lung with a perihilar predominance. There are a irspace opacities in right lower lung zone. No pleural effusion or pneumothorax. The heart size is no rmal. The endotracheal tube tip is 2.8 cm above the ruchi. A right upper extremity peripherally inse rted central venous catheter (PICC) is seen with tip in the superior vena cava. IMPRESSION: 1. Stable airspace opacities in left lung and right lower lung zone, consistent with pneumonia. Reviewed, dictated and finalized at location A. ONAL BRANCH MANAGER
--- NOTE | ~2021-04-15 | XR_ITS ---
EXAMINATION: XR chest 1V portable EXAM DATE: 04/17/2021 05:32 INDICATION: pneumonia, acute respiratory failure TECHNIQUE: Portable AP frontal chest x-ray was obtained. Comparison is made to prior examination from 04/16/2021. FINDINGS: Endotracheal tube tip is 2-3 centimeters above the ruchi. There is a right-sided PICC alicia e in position. There is moderate amount of left-sided, small to moderate amount of right-sided ill-defined pneumonia and/or edema. There are no sizable pleural effusions. There is no pneumothorax suspected. Cardi omediastinal silhouette is normal. There are bony degenerative changes. There is no significant interval change compared to prior exam. IMPRESSION: 1. Line and tube(s) in position. 2. Stable airspace disease . Reviewed, dictated and finalized at location A. ATION PRODUCER
--- NOTE | ~2021-04-15 | XR_ITS ---
EXAMINATION: XR chest 1V portable DATE: 04/22/2021 06:10 INDICATION: Pneumonia. Respiratory failure. TECHNIQUE: A single frontal view of the chest was obtained on 2 radiographs. COMPARISON: Chest single view 04/20/2021, chest CT 04/15/2021 FINDINGS: There are lucencies in the lungs, consistent with emphysema. There are airspace opacities i n all left lung zones with a perihilar and lower lung predominance. There are mild airspace opacities in right lower lung zone. No pleural effusion or pneumothorax. The heart size is normal. The endotra cheal tube tip is 3.3 cm above the ruchi. A right upper extremity peripherally inserted central veno us catheter (PICC) is seen with tip in the superior vena cava. IMPRESSION: 1. Stable airspace opacities in left lung and right lower lung zone, consistent with pneumonia. Reviewed, dictated and finalized at location A. L CNC OPERATOR
--- NOTE | ~2021-04-15 | XR_ITS ---
EXAMINATION: XR chest 1V portable EXAM DATE: 04/16/2021 05:59 INDICATION: Pneumonia, acute respiratory failure. TECHNIQUE: Portable AP frontal chest x-ray was obtained. Comparison is made to prior examination from 04/15/2020. FINDINGS: Endotracheal tube tip is 2-3 centimeters above the ruchi. Right-sided PICC line in positi on. Moderate amount of left-sided and smaller right-sided ill-defined airspace disease likely edema or pn eumonia. There are no sizable pleural effusions. There is no pneumothorax suspected. Cardiomedia stinal silhouette is normal. The bones and soft tissues are unremarkable. There is no significant interval change compared to prior exam. IMPRESSION: 1. Line and tube(s) in position. 2. Stable left-sided predominant pneumonia or edema. Reviewed, dictated and finalized at location A. ING EQUIPMENT MECHANIC
--- NOTE | ~2021-04-15 | XR_ITS ---
EXAMINATION: XR chest 1V portable EXAM DATE: 04/18/2021 06:09 INDICATION: pneumonia, acute respiratory failure TECHNIQUE: Portable AP frontal chest x-ray was obtained. Comparison is made to prior examination from 04/17/2021. FINDINGS: Endotracheal tube tip is 1-2 centimeters above the ruchi. There is a right-sided PICC alicia e in position. There is moderate amount of left-sided, small to moderate amount of right-sided ill-defined pneumonia and/or edema. There are no sizable pleural effusions. There is no pneumothorax suspected. Cardi omediastinal silhouette is normal. There are bony degenerative changes. There is no significant interval change compared to prior exam. IMPRESSION: 1. Line and tube(s) in position. 2. Stable airspace disease . ASSISTANT Reviewed, dictated and finalized at location A.
--- NOTE | ~2021-04-15 | XR_ITS ---
EXAMINATION: XR chest PICC line INDICATION: PICC insertion TECHNIQUE: Portable AP chest at 1449 hours COMPARISON: 0814 hours FINDINGS: The right upper showed a PICC has been inserted which ends with its tip in the proximal sup erior vena cava. The endotracheal tube ends approximately 2.2 cm above the ruchi. Patchy bilateral a irspace opacities persist. There has been interval decrease in size of left basilar airspace opacitie s. There is interval decrease in size of a left-sided pleural effusion. No pneumothorax is identified . The cardiomediastinal silhouette is normal. IMPRESSION: 1. Right upper extremity PICC ending with its tip in the proximal superior vena cava. 2. Decreased left pleural effusion and decreased left basilar airspace opacities, likely improved ate lectasis. 3. Patchy bilateral airspace opacities, consistent with pneumonia. Reviewed, dictated and finalized at location F. ATTACHING MACHINE TENDER IMPRESSION: 1. Right upper extremity PICC ending with its tip in the proximal superior vena cava. 2. Decreased left pleural effusion and decreased left basilar airspace opacitie s, likely improved atelectasis. 3. Patchy bilateral airspace opacities, consistent with pneumonia.
--- NOTE | ~2021-04-15 | XR_ITS ---
EXAMINATION: XR chest 1V portable DATE: 04/25/2021 06:01 INDICATION: Pneumonia. Respiratory failure. TECHNIQUE: A single frontal view of the chest was obtained. COMPARISON: Chest single view 04/24/2021 FINDINGS: There are airspace opacities in the left lung, worst in the left midlung zone and left lowe r lobe. There are airspace opacities in right lower lung zone. No pleural effusion or pneumothorax. T he heart size is normal. A right upper extremity peripherally inserted central venous catheter (PICC) is seen with tip in the proximal right atrium. IMPRESSION: 1. Stable airspace opacities in left lung and right lower lung zone, consistent with pneumonia. Reviewed, dictated and finalized at location E. WIRE PHOTO OPERATOR
--- NOTE | ~2021-04-15 | XR_ITS ---
EXAMINATION: XR chest 1V portable DATE: 04/26/2021 06:12 INDICATION: Pneumonia. Respiratory failure. TECHNIQUE: A single frontal view of the chest was obtained. COMPARISON: Chest single view 04/25/2021 FINDINGS: The patient is rotated to her left. There are airspace opacities in all left lung zones wit h a perihilar and lower lung predominance. There are airspace opacities in right lower lung zone. No pleural effusion or pneumothorax. The heart size is normal. A right upper extremity peripherally inse rted central venous catheter (PICC) is seen with tip at the superior cavoatrial junction. IMPRESSION: 1. Stable airspace opacities in left lung and right lower lung zone, consistent with pneumonia. Reviewed, dictated and finalized at location E. AURANT KITCHEN AND SERVICE MANAGER
--- NOTE | ~2021-04-15 | XR_ITS ---
EXAMINATION: XR chest 1V portable EXAM DATE: 04/19/2021 06:17 INDICATION: Pneumonia, acute respiratory failure. TECHNIQUE: Portable AP frontal chest x-ray was obtained. Comparison is made to prior examination from 04/18/2021. FINDINGS: Endotracheal tube tip is 2 centimeters above the ruchi. There is a right-sided PICC line in position. There is moderate amount of left-sided, small to moderate amount of right-sided ill-defined pneumonia and/or edema. There are no sizable pleural effusions. There is no pneumothorax suspected. Cardi omediastinal silhouette is normal. There are bony degenerative changes. There appears be some improvement in lung opacity compared to yesterday but this could be partly tech nical, a better penetrated image today. IMPRESSION: 1. Line and tube(s) in position. 2. Bilateral pneumonia or edema. IUM REPRESENTATIVE Reviewed, dictated and finalized at location A.
--- NOTE | 2021-04-15 08:06 | PC.NURSE ---
Dr. Montes De Oca at bedside. Supplies at bedside for intubation.
--- NOTE | 2021-04-15 08:07 | PC.NURSE ---
Addendum entered by Cinthya Land RN 04/15/21 08:14: Pt requires emergent intubation. Pt given 30mg etomidate at 0805 and 100mg succinylcholine at [address] Montes De Oca's verbal read back orders. Original Note: Pt intubated by Dr. Montes De Oca with 7.5 ETT.
--- NOTE | 2021-04-15 08:09 | ECG_ITS ---
Measurements Intervals [place] Rate: 133 P: 81 OK: 147 QRS: -73 QRSD: 97 T: 29 QT: 287 QTc: 427 Interpretive Statements SINUS OR ECTOPIC ATRIAL TACHYCARDIA LEFT AXIS DEVIATION LOW QRS VOLTAGE IN PRECORDIAL LEADS POOR R WAVE PROGRESSION, CONSIDER ANTERIOR INFARCT INFERIOR INFARCT, AGE INDETERMINATE BASELINE ARTIFACT- II, III, AVR, AVF, V2-V6 ABNORMAL ECG Electronically Signed On 04-15-2021 8:32:39 PROCESSING SPECIALIST by Bryon Reyes D.O.
--- NOTE | 2021-04-15 08:09 | ED.GENADULT ---
HPI - General Adult General Chief complaint: Altered Mental Status Stated complaint: unresponsive Time Seen by Provider: 04/15/21 07:55 History of Present Illness HPI narrative: Patient is a 76-year-old female who presents ER in respiratory distress from her care home. Patient found to be unresponsive with hypoxia in the 50s and 60s on room air. EMS bagging the patient. Minimally responsive for EMS in route. Patient has history of seizures as well as a brain tumor that has been stable for years but potentially increasing in size since last December. Patient is chronically immobile. No other recent history. Related Data Home Medications Medication Instructions Recorded Confirmed ascorbic acid (vitamin C) [Vitamin 500 mg FEEDING TUBE DAILY 03/16/20 04/15/21 C] cholecalciferol (vitamin D3) 1,250 mcg FEEDING TUBE WEEKLY 03/17/20 04/15/21 lactulose 15 ml FEEDING TUBE Q8H PRN 03/17/20 04/15/21 Fleet Enema 118 ml RECTAL DAILY PRN 12/26/20 04/15/21 umeclidinium-vilanterol 1 inh INHALATION DAILY PRN 12/26/20 04/15/21 bisacodyl 10 mg RECTAL DAILY PRN 01/01/21 04/15/21 d-mannose 500 mg DAILY 01/01/21 04/15/21 diclofenac sodium 1 applic TOPICAL BID PRN 01/01/21 04/15/21 magnesium citrate [Citroma] 296 ml FEEDING TUBE DAILY PRN 01/01/21 04/15/21 magnesium hydroxide 30 ml FEEDING TUBE HS PRN 01/01/21 04/15/21 ondansetron HCl 4 mg FEEDING TUBE Q6H PRN 01/01/21 04/15/21 Basaglar KwikPen U-100 Insulin 40 unit SUBCUT HS 01/26/21 04/15/21 Saccharomyces boulardii [Florastor] 250 mg FEEDING TUBE BID 01/26/21 04/15/21 acetaminophen [Mapap 650 mg FEEDING TUBE Q8H PRN 02/28/21 04/15/21 (acetaminophen)] chlorhexidine gluconate [Peridex] 15 ml BUCCAL BID 02/28/21 04/15/21 insulin aspart U-100 [Novolog 1 sliding scale dose SUBCUT 02/28/21 04/15/21 Flexpen U-100 Insulin] USEASDIRECTD collagenase clostridium histo. 1 applic TOPICAL DAILY 04/15/21 04/15/21 [Santyl] esomeprazole magnesium 20 mg FEEDING TUBE DAILY 04/15/21 04/15/21 mupirocin 1 applic TOPICAL DAILY 04/15/21 04/15/21 Allergies Allergy/AdvReac Type Severity Reaction Status Date / Time shellfish derived Allergy Unknown Hives Verified 04/08/21 18:07 codeine Allergy Unknown Verified 04/08/21 18:07 erythromycin base Allergy Unknown Verified 04/08/21 18:07 hydrocodone Allergy Unknown Verified 04/08/21 18:07 ibuprofen Allergy Unknown Verified 04/08/21 18:07 Iodinated Contrast Media Allergy Unknown Verified 04/08/21 18:07 meperidine Allergy Unknown Verified 04/08/21 18:07 mepivacaine [From Carbocaine] Allergy Unknown Verified 04/08/21 18:07 propoxycaine Allergy Unknown Verified 04/08/21 18:07 propoxyphene Allergy Unknown Verified 04/08/21 18:07 Sulfa (Sulfonamide Allergy Unknown Verified 04/08/21 18:07 Antibiotics) Review of Systems Review of Systems: ROS unobtainable: Yes unobtainable due to medical condition PMFSH Past Medical History Medical History Chronic anemia Chronic GERD Chronic indwelling Hodge catheter Dementia Dysphagia Peg tube in-situ. Elevated transaminase level Appears chronic. 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 Surgical History Surgical History Gastrointestinal tube in situ (~02/2020) History of craniotomy Right frontal lobe craniotomy with resection of oligodendroglioma. Family History Family History Mother Diabetes mellitus Father Lung cancer Sibling Breast cancer she has Sibling Breast cancer Father Lung cancer Social History Social History Social History: The patient is a resident at a local care home. She is a former smoker. No
[2021-04-15 08:17] LABS: Hematocrit 41.5 % (37.0-47.0); Hemoglobin 11.8 g/dL (12.0-15.0); Mean Corpuscular HGB Conc 28.4 g/dl (32-36); Mean Corpuscular Hemoglobin 25.8 pg (26-34); Mean Corpuscular Volume 90.8 fl (80-100); Platelet Count Result 619 k/mm3 (150-375); Red Blood Count 4.57 M/mm3 (4.2-5.4); Red Cell Distribution Width 21.1 % (11.5-14.5); White Blood Count 35.1 K/mm3 (4.5-10.0)
[2021-04-15] MEDS: levETIRAcetam 1000MG/NACL100ML 1,000 MG/100 ML BAG 400 MG IVPB (08:19)
--- NOTE | 2021-04-15 08:21 | PC.NURSE ---
Pt's g-tube connected to low intermittent suction.
[2021-04-15 08:25] LABS: INR 1.1; Prothrombin Time 13.8 Seconds (11.1-14.7)
[2021-04-15 08:26] LABS: Partial Thromboplastin Time 28.3 SECONDS (22.3-36.8)
[2021-04-15 08:28] LABS: Alanine Aminotransferase 29 U/L (4-35); Albumin Level 4.3 g/dL (3.5-5.1); Alkaline Phosphatase 103 U/L (38-126); Anion Gap 14 mmol/L (8-16); Aspartate Amino Transferase 39 U/L (14-36); Bilirubin,Total 0.3 mg/dL (0.2-1.3); Blood Urea Nitrogen 37 mg/dL (7-17); Calcium 10.1 mg/dL (8.4-10.2); Carbon Dioxide 20 mmol/L (22-30); Chloride 111 mmol/L (98-107); Estimated Glomerular Filt Rate > 60; Glucose 331 mg/dL (65-110); Potassium 5.1 mmol/L (3.4-5.0); Sodium 145 mmol/L (137-145)
[2021-04-15 08:32] LABS: Band Neutrophils Percent 7 % (0-6); Lymphocytes Absolute Manual 6.66 K/mm3 (1.1-4.5); Monocytes Absolute Manual 1.75 K/mm3 (0.1-0.90); Monocytes Percent Manual 5 % (3-9); Neutrophils Absolute Manual 26.67 K/mm3 (1.7-7.2); Neutrophils Percent Manual 69 % (46-73); Platelet Estimate Increased (Adequate); Total Cells Counted 100
[2021-04-15] MEDS: SODIUM CHLORIDE 0.9% IV 1,000 ML 999 ML IV CONT ×2 (08:35→16:30)
[2021-04-15 08:40] LABS: Troponin I < 0.012 ng/mL (0.000-0.034)
[2021-04-15] MEDS: FENTANYL 2,500MCG/NS250ML(*CRX 2,500 MCG/250 ML BAG IV CONT (08:41)
[2021-04-15 08:46] LABS: Alveolar/Arterial O2 Gradient 466.5 mmHg; Base Excess ABG -9.1 mEq/l (+/-2.0); Carboxyhemoglobin 0.3 % THb (0-2.0); Fractional Inspired Oxygen 100 %; HCO3 ABG 16.1 mEq/l (22.0-26.0); Methemoglobin ABG 0.1 %THb (0-1.5); Oxygen Content ABG 16.2 %vol (16.0-22.0); Oxygen Saturation ABG 99.4 % (95.0-100.0); Oxyhemoglobin 98.2 % THb (90.0-100.0); PCO2 ABG 32.7 mmHg (35.0-45.0); PO2 ABG 213.8 mmHg (80.0-100.0); PO2 FiO2 Ratio Arterial Blood 2.14 %; Reduced Hemoglobin 1.4 %THb (0-5.0); Total Hemoglobin 11.4 g/dL (12.0-18.0)
[2021-04-15] MEDS: MIDAZOLAM 100MG/NS 100ML(*CRX) 100 MG/100 ML BAG IV CONT (08:46)
[2021-04-15 08:47] LABS: Arterial Blood Gas Vent Mode CMV; Arterial Blood Gas Ventilator rate 20 /MIN; Device VENTILATOR; Modified Allen's Test Pass; Site Drawn LEFT RADIAL
[2021-04-15 08:48] LABS: Arterial Blood Gas PEEP 10 cmH2O; Arterial Blood Gas Tidal Volume 350 ml
[2021-04-15 09:11] LABS: Add Urine Microscopic? YES; Appearance Urine Cloudy (Clear); Bilirubin Urine Negative (Negative); Color Urine Yellow (Yellow); Glucose Urine UA Negative (Negative); Ketones Urine Negative (Negative); Leukocyte Esterase Ur 3+ LEU/UL (Negative); Mucus Urine Rare /lpf; Nitrate Urine Negative (Negative); Protein Urine 2+ mg/dL (Negative); RBC Urine 0-2 /hpf (0-2); Specific Grav Ur 1.012 (1.001-1.035); Squamous Epithelial Cell Urine Rare /hpf (Few); Urobilinogen Urine Negative mg/dL (<2.0); WBC Urine >75 /hpf
[2021-04-15 09:33] LABS: Blood Urine Negative (Negative)
[2021-04-15 09:45] LABS: SARS-CoV-2 RNA PCR Negative
[2021-04-15] MEDS: PIPERACILLIN/TAZOBACTAM SOD 4.5 GM in SODIUM CHLORIDE 0.9% IV 100 ML 200 ML IVPB ×3 (10:11→23:49)
--- NOTE | 2021-04-15 10:13 | PC.NURSE ---
Pt is difficult stick. Multiple attempts made at blood cultures and lactic. RN able to obtain both sets of cultures but not specimen for lactic. wood engraver at bedside attempting to draw lactic at this time.
[2021-04-15 11:12] LABS: Lactic Acid Reflex 6.5 mmol/L (0.7-2.1)
[2021-04-15 11:29] LABS: NT Pro B Type Natriuretic Pept 195 pg/mL (5-100)
--- NOTE | 2021-04-15 12:10 | ADMGEN ---
This patient, Linette Vásquez, was admitted to Intensive Care Unit-2. Patient/family oriented to hospital policies and general routines including ID bracelet, bed and alarms, visiting hours, pain management, procedures, bathroom and other care routines, personal items, smoking policy, room service/diet, and visiting hours. Information on how to activate the Rapid Response Team has been discussed. Patient/Family are encouraged to report perceived risks to care and to ask questions if they do not understand what they are told or what they should do.
--- NOTE | 2021-04-15 12:30 | WPDCNINT ---
Assessment and Plan Assessment and plan (1) Acute respiratory failure: Qualifiers: Respiratory failure complication: unspecified whether with hypoxia or hypercapnia Qualified Code(s): J96.00 - Acute respiratory failure, unspecified whether with hypoxia or hypercapnia Code(s): J96.00 - Acute respiratory failure, unspecified whether with hypoxia or hypercapnia Status: Acute Assessment and Plan: Pt presented from custodial via EMS with AMS and hypoxia. Pt was intubated in the ED on 04/15/2021 Likely due to bilateral pneumonia as seen on CT chest Currently on CMV mode, PEEP of 12 and 65% FIO2 Continue Fentanyl and Versed infusion for sedation continue bronchodilators (2) Sepsis: Qualifiers: Sepsis type: sepsis due to unspecified organism Sepsis acute organ dysfunction status: with acute organ dysfunction Severe sepsis acute organ dysfunction type: acute respiratory failure Acute respiratory failure type: unspecified Severe sepsis shock status: with septic shock Qualified Code(s): A41.9 - Sepsis, unspecified organism; R65.21 - Severe sepsis with septic shock; J96.00 - Acute respiratory failure, unspecified whether with hypoxia or hypercapnia Code(s): A41.9 - Sepsis, unspecified organism Status: Acute Assessment and Plan: Elevated lactic acid, leukocytosis, pneumonia Pt given 2 L IVF Pt tachycardic Continue maintenance IVF COntiue abx as above repeat lactic acid Hurst culture obtained and pending (3) Pneumonia: Qualifiers: Laterality: unspecified laterality Lung location: unspecified part of lung Pneumonia type: due to unspecified organism Qualified Code(s): J18.9 - Pneumonia, unspecified organism Code(s): J18.9 - Pneumonia, unspecified organism Status: Acute Assessment and Plan: as above (4) Seizure: Code(s): R56.9 - Unspecified convulsions Status: Acute Assessment and Plan: H/o Sz continue keppra and toprimate (5) Insulin dependent type 2 diabetes mellitus: Code(s): E11.9 - Type 2 diabetes mellitus without complications; Z79.4 - care home (current) use of insulin Status: Acute Assessment and Plan: Continue high dose SSI and acccucheks (6) Encephalopathy acute: Code(s): G93.40 - Encephalopathy, unspecified Status: Acute Assessment and Plan: AMS on admission, could be related sepsis, acidosis, hypoxia, pna, UTI (7) Urinary tract infection: Code(s): N39.0 - Urinary tract infection, site not specified Status: Acute Assessment and Plan: continue ABX as above (8) Brain tumor: Code(s): D49.6 - Neoplasm of unspecified behavior of brain Status: Acute Assessment and Plan: CT brain 04/15/2021: Status post right frontal craniotomy with large right frontal lobe resection. Left vertebral artery and prominent bilateral carotid siphon internal carotid artery calcifications. Again noted is a large infiltrative partially calcified mass in the right frontal parietal area, with right insular and basal ganglia and thalamic involvement in addition to left medial frontal lobe extension. 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 This appears relatively stable since 03/07/2021. There is diminished attenuation of the cerebral white matter particularly in the frontal areas, likely due to postradiation change. No new intracranial mass lesion or intracranial hemorrhage, or interval new mass effect is evident. No subdural or epidural hematoma. Moderate central and cortical cerebral atrophy IMPRESSION: No significant change since 03/07/2021 Additional Plan DVT prophylaxis: Lovenox Nutrition: will start tube feeds in am Stress ulcer prophylaxis: Protonix Code status: Full code Critical care time spent: 47 minutes This dictation may have been done utilizing a voice recognition system. Attempts have been made to correct errors. However, there ma
--- NOTE | 2021-04-15 12:42 | PC.NURSE ---
Report received by VICTORINO Mendes with the ED department. All questions answered and plan of care reviewed. patient to go to ICU room 2.
--- NOTE | 2021-04-15 12:42 | ADMGEN ---
This patient, Linette Vásquez, was admitted to Intensive Care Unit-2 at 1215 from the ED. Patient/family oriented to hospital policies and general routines including ID bracelet, bed and alarms, visiting hours, pain management, procedures, bathroom and other care routines, personal items, [id number] policy, room service/diet, and visiting hours. Information on how to activate the Rapid Response Team has been discussed. Patient/Family are encouraged to report perceived risks to care and to ask questions if they do not understand what they are told or what they should do.
[2021-04-15] MEDS: hetaSTARCH 6%/NACL 500 ML 250 ML IV CONT (12:43)
[2021-04-15 13:44] LABS: Reflex Lactic Acid Yes or No Add Lactic
[2021-04-15] MEDS: IPRATROPIUM BR 0.02% INH SOLN 0.5 MG/2.5 ML VIAL INHALATION ×2 (14:35→19:03)
[2021-04-15] MEDS: LEVALBUTEROL NEB 1.25 MG/3 ML 0.63 MG INHALATION ×2 (14:35→19:03)
--- NOTE | 2021-04-15 15:30 | PM.IMHP ---
H&P: HPI History of Present Illness Date/Time: 04/15/21 15:30 <Nandini Parra PA-C - Last Filed: 04/15/21 22:18> Chief Complaint: Unresponsive. <Nandini Parra PA-C - Last Filed: 04/15/21 22:18> Narrative: This is an unfortunate 76-year-old female with history of brain cancer status post radiation and resection of a right frontal lobe mass, seizures, dementia, and insulin-dependent diabetes who presented to the emergency department via EMS from [facility] for evaluation after she was found unresponsive. She is intubated and on mechanical ventilation and thus all of the following is obtained via a review of her electronic medical records. The patient is known to the hospitalist service and in fact she was recently admitted from 02/27/2021 through 03/30/2021 after presenting with a seizure for which she was seen by Neurology. She was also treated for aspiration pneumonia during that stay and was found to have a left peroneal DVT though given high risk for intracranial bleeding due to brain mass, she was not treated with anticoagulation. In any event, she was last seen in her usual state of health at 03:30 but not long prior to arrival staff found her unresponsive and hypoxic and EMS was summoned. They assisted ventilation with bag valve mask and she was intubated on arrival to the emergency department due to continued hypoxia with SpO2 in the 50s and 60s. Brain CT on arrival showed no acute findings but once again noted a large infiltrative partially calcified mass in the right frontal parietal area with right insula and basal ganglia and thalamic involvement in addition to left medial frontal lobe extension. Chest CT showed bilateral pulmonary infiltrates. Labs and vital signs were consistent with sepsis and she was started on vancomycin and Zosyn and admitted to the ICU. She is currently sedated and is unarousable. <Nandini Parra PA-C - Last Filed: 04/15/21 22:18> Review of Systems Review of Systems: Unable to be obtain med as she is sedated on mechanical ventilation. <Nandini Parra PA-C - Last Filed: 04/15/21 22:18> [facility] Past Medical History Medical History: Medical History Chronic anemia Chronic GERD Chronic indwelling Hodge catheter Dementia Dysphagia Peg tube in-situ. Elevated transaminase level Appears chronic. 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 <Nandini Parra PA-C - Last Filed: 04/15/21 22:18> Surgical History Surgical History: Surgical History Gastrointestinal tube in situ (~02/2020) History of craniotomy Right frontal lobe craniotomy with resection of oligodendroglioma. <Nandini Parra PA-C - Last Filed: 04/15/21 22:18> Family History Family History: Family History Mother Diabetes mellitus Father Lung cancer Sibling Breast cancer she has Sibling Breast cancer Father Lung cancer <Nandini Parra PA-C - Last Filed: 04/15/21 22:18> Social History Social History: Social History Social History: The patient is a resident at a local retirement. She is a former smoker. No alcohol or illicit substance use. Julia Phelps is her healthcare power traffic law attorney. Code status: Full code. Spiritual care concerns: No <Nandini Parra PA-C - Last Filed: 04/15/21 22:18> Meds Home Medications and Allergies Home medications: Home Medications Medication Instructions Recorded Confirmed Type ascorbic acid (vitamin C) [Vitamin 500 mg FEEDING TUBE DAILY 03/16/20 04/15/21 History C] cholecalciferol (vitamin D3) 1,250 mcg FEEDING TUBE WEEKLY 03/17/20 04/15/21 His
[2021-04-15 15:57] LABS: Lactic Acid Reflex 4.6 mmol/L (0.7-2.1)
[2021-04-15] MEDS: NOREPINEPHRINE 8 MG/D5W 250 ML 8 MG/250 ML BAG 9.38 MG IV CONT (16:30)
[2021-04-15] MEDS: PANTOPRAZOLE SODIUM IV 40 MG VIAL IV PUSH (16:49)
[2021-04-15] MEDS: SACCHAROMYCES BOULARDII 250 MG CAPSULE FEED TUBE (17:26)
[2021-04-15] MEDS: ACETAMINOPHEN 325 MG TABLET 650 MG PO (17:27)
[2021-04-15] MEDS: SODIUM CHLORIDE 0.9% IV 1,000 ML 75 ML IV CONT (20:52)
[2021-04-15] MEDS: INSULIN GLARGINE (*BKC) 100 UNITS/ML 20 UNITS SUB-Q (20:53)
[2021-04-15] MEDS: TOPIRAMATE 100 MG TABLET XX (20:54)
[2021-04-15] MEDS: levETIRAcetam ORAL SOL 500 MG/5 ML UDC FEED TUBE (20:54)
[2021-04-15] MEDS: INSULIN ASPART (*BKC) 100 UNITS/ML SUB-Q ×2 (21:04→23:59)
[2021-04-15] MEDS: HYDROCORTISONE SODIUM SUCCINATE 100 MG/2 ML VIAL IV PUSH (21:09)
[2021-04-15] MEDS: CENTRAL LINE FLUSH 10 ML IV PUSH (21:09)
[2021-04-15 21:13] LABS: Lactic Acid Reflex 4.6 mmol/L (0.7-2.1)
[2021-04-15 21:13] LABS: Glucose Point of Care 334 mg/dl (65-105)
[2021-04-15] MEDS: NOREPINEPHRINE 8 MG/D5W 250 ML 8 MG/250 ML BAG 43.13 MG IV CONT (23:46)
[2021-04-15 23:59] LABS: Glucose Point of Care 364 mg/dl (65-105)
[2021-04-16] VITALS (56 sets, daily range): BP systolic 106–144; BP diastolic 43–71; PULSE 63–112; RESP 17–24; TEMP 37.3–38.2; O2SAT 98–100; BMI 29.0
[2021-04-16] MEDS: LEVALBUTEROL NEB 1.25 MG/3 ML 0.63 MG INHALATION ×3 (01:50→20:30)
[2021-04-16] MEDS: IPRATROPIUM BR 0.02% INH SOLN 0.5 MG/2.5 ML VIAL INHALATION ×3 (01:50→20:30)
[2021-04-16] MEDS: INSULIN ASPART (*BKC) 100 UNITS/ML SUB-Q ×6 (04:18→23:55)
[2021-04-16 04:30] LABS: Glucose Point of Care 295 mg/dl (65-105)
[2021-04-16 04:35] LABS: Hematocrit 30.2 % (37.0-47.0); Hemoglobin 8.6 g/dL (12.0-15.0); Mean Corpuscular HGB Conc 28.5 g/dl (32-36); Mean Corpuscular Hemoglobin 26.1 pg (26-34); Mean Corpuscular Volume 91.5 fl (80-100); Mean Platelet Volume 10.3 fl (7.4-10.4); Platelet Count Result 414 k/mm3 (150-375); Red Cell Distribution Width 20.5 % (11.5-14.5); White Blood Count 47.4 K/mm3 (4.5-10.0)
[2021-04-16 04:55] LABS: pH ABG 7.361 (7.350-7.450)
[2021-04-16 04:56] LABS: Total Hemoglobin 7.8 g/dL (12.0-18.0)
[2021-04-16 04:57] LABS: Alanine Aminotransferase 19 U/L (4-35); Albumin Level 2.7 g/dL (3.5-5.1); Alkaline Phosphatase 66 U/L (38-126); Anion Gap 8 mmol/L (8-16); Aspartate Amino Transferase 23 U/L (14-36); Bilirubin,Total 0.3 mg/dL (0.2-1.3); Blood Urea Nitrogen 23 mg/dL (7-17); Calcium 7.7 mg/dL (8.4-10.2); Carbon Dioxide 20 mmol/L (22-30); Chloride 116 mmol/L (98-107); Estimated CRCL calculation 51 ml/min; Estimated Glomerular Filt Rate > 60; Glucose 335 mg/dL (65-110); Magnesium 1.9 mg/dL (1.6-2.3); Phosphorus 3.1 mg/dL (2.5-4.5); Potassium 3.8 mmol/L (3.4-5.0); Sodium 144 mmol/L (137-145)
[2021-04-16 04:57] LABS: Carboxyhemoglobin 0.3 % THb (0-2.0); Device VENTILATOR; Fractional Inspired Oxygen 40 %; Methemoglobin ABG 0.4 %THb (0-1.5); Modified Allen's Test Pass; PO2 FiO2 Ratio Arterial Blood 3.45 %; Reduced Hemoglobin 1.9 %THb (0-5.0); Site Drawn LEFT RADIAL
[2021-04-16 04:58] LABS: Arterial Blood Gas PEEP 12 cmH2O; Arterial Blood Gas Vent Mode CMV; Arterial Blood Gas Ventilator rate 20 /MIN
[2021-04-16 04:59] LABS: Arterial Blood Gas Tidal Volume 350 ml
[2021-04-16 05:10] LABS: Band Neutrophils Percent 16 % (0-6); Lymphocytes Absolute Manual 2.37 K/mm3 (1.1-4.5); Monocytes Absolute Manual 0.94 K/mm3 (0.1-0.90); Monocytes Percent Manual 2 % (3-9); Neutrophils Absolute Manual 44.08 K/mm3 (1.7-7.2); Neutrophils Percent Manual 77 % (46-73); Platelet Estimate Increased (Adequate); Total Cells Counted 100
[2021-04-16] MEDS: HYDROCORTISONE SODIUM SUCCINATE 100 MG/2 ML VIAL IV PUSH ×3 (05:14→20:28)
[2021-04-16] MEDS: CENTRAL LINE FLUSH 10 ML IV PUSH ×3 (05:15→20:28)
[2021-04-16] MEDS: PIPERACILLIN/TAZOBACTAM SOD 4.5 GM in SODIUM CHLORIDE 0.9% IV 100 ML 200 ML IVPB ×4 (05:15→23:53)
[2021-04-16 07:32] LABS: Reflex Lactic Acid Yes or No Add Lactic
[2021-04-16 08:03] LABS: Glucose Point of Care 306 mg/dl (65-105)
[2021-04-16] MEDS: levETIRAcetam ORAL SOL 500 MG/5 ML UDC FEED TUBE ×2 (08:21→20:26)
[2021-04-16] MEDS: ENOXAPARIN 40 MG/0.4 ML SYRINGE SUB-Q (08:21)
[2021-04-16] MEDS: TOPIRAMATE 100 MG TABLET XX ×2 (08:22→20:26)
[2021-04-16] MEDS: PANTOPRAZOLE SODIUM IV 40 MG VIAL IV PUSH (08:22)
[2021-04-16] MEDS: SODIUM CHLORIDE 0.9% IV 1,000 ML 75 ML IV CONT ×2 (08:23→23:57)
[2021-04-16] MEDS: INSULIN GLARGINE (*BKC) 100 UNITS/ML 20 UNITS SUB-Q ×2 (08:24→20:27)
[2021-04-16] MEDS: NOREPINEPHRINE 8 MG/D5W 250 ML 8 MG/250 ML BAG 22.5 MG IV CONT ×2 (08:44→18:06)
[2021-04-16 08:59] LABS: Lactic Acid 2.5 mmol/L (0.7-2.1)
--- NOTE | 2021-04-16 10:56 | WPDINTPN ---
Progress Note: A&P Assessment and Plan (1) Septic shock: Code(s): A41.9 - Sepsis, unspecified organism; R65.21 - Severe sepsis with septic shock Status: Acute Assessment and Plan: Elevated lactic acid, leukocytosis, pneumonia Pt given 2 L IVF Pt tachycardic Continue maintenance IVF Lactic acid trensing down worsening WBC count, continue to monitor patient does not have any diarrhea COntiue Zosyn and vancomycin, add levofloxacin Hurst culture obtained and pending (2) Acute respiratory failure: Qualifiers: Respiratory failure complication: unspecified whether with hypoxia or hypercapnia Qualified Code(s): J96.00 - Acute respiratory failure, unspecified whether with hypoxia or hypercapnia Code(s): J96.00 - Acute respiratory failure, unspecified whether with hypoxia or hypercapnia Status: Acute Assessment and Plan: Pt presented from assisted via EMS with AMS and hypoxia. Pt was intubated in the ED on 04/15/2021 Likely due to bilateral pneumonia as seen on CT chest Currently on CMV mode, PEEP of 12 and 65% FIO2 Continue Fentanyl and Versed infusion for sedation continue bronchodilators -venous Dopplers have been done and pending (3) Pneumonia: Qualifiers: Laterality: unspecified laterality Lung location: unspecified part of lung Pneumonia type: due to unspecified organism Qualified Code(s): J18.9 - Pneumonia, unspecified organism Code(s): J18.9 - Pneumonia, unspecified organism Status: Acute Assessment and Plan: as above (4) Seizure: Code(s): R56.9 - Unspecified convulsions Status: Acute Assessment and Plan: H/o Sz continue keppra and toprimate (5) Insulin dependent type 2 diabetes mellitus: Code(s): E11.9 - Type 2 diabetes mellitus without complications; Z79.4 - terminal make up operator (current) use of insulin Status: Acute Assessment and Plan: Continue high dose SSI and acccucheks (6) Encephalopathy acute: Code(s): G93.40 - Encephalopathy, unspecified Status: Acute Assessment and Plan: AMS on admission, could be related sepsis, acidosis, hypoxia, pna, UTI -CT brain reviewed, no new intracranial mass lesions were intracranial hemorrhage interval new mass effect, no subdural or epidural hematoma (7) Urinary tract infection: Code(s): N39.0 - Urinary tract infection, site not specified Status: Acute Assessment and Plan: continue ABX as above (8) Brain tumor: Code(s): D49.6 - Neoplasm of unspecified behavior of brain Status: Acute Assessment and Plan: CT brain 04/15/2021: Status post right frontal craniotomy with large right frontal lobe resection. Left vertebral artery and prominent bilateral carotid siphon internal carotid artery calcifications. Again noted is a large infiltrative partially calcified mass in the right frontal parietal area, with right insular and basal ganglia and thalamic involvement in addition to left medial frontal lobe extension. 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 This appears relatively stable since 03/07/2021. There is diminished attenuation of the cerebral white matter particularly in the frontal areas, likely due to postradiation change. No new intracranial mass lesion or intracranial hemorrhage, or interval new mass effect is evident. No subdural or epidural hematoma. Moderate central and cortical cerebral atrophy IMPRESSION: No significant change since 03/07/2021 Additional Plan DVT prophylaxis: Lovenox SQ Nutrition: Start tube feeds today Stress ulcer prophylaxis: Protonix Code status: Full code Critical care time spent: 34 minutes This dictation may have been done utilizing a voice recognition system. Attempts have been made to correct errors. However, there may be uncorrected grammatical, spelling, and recognition errors present. Due to a high probability of clinically significant, life threatening deteri
[2021-04-16 11:45] LABS: Glucose Point of Care 291 mg/dl (65-105)
[2021-04-16] MEDS: SACCHAROMYCES BOULARDII 250 MG CAPSULE FEED TUBE ×2 (11:47→17:25)
[2021-04-16 16:30] LABS: Glucose Point of Care 279 mg/dl (65-105)
[2021-04-16] MEDS: FENTANYL 2,500MCG/NS250ML(*CRX 2,500 MCG/250 ML BAG IV CONT (18:29)
[2021-04-16 19:59] LABS: Glucose Point of Care 281 mg/dl (65-105)
[2021-04-16] MEDS: MINERAL OIL/WHITE PETROLATUM OINTMENT 1 APPLIC EACH EYE (20:26)
[2021-04-16 23:50] LABS: Glucose Point of Care 299 mg/dl (65-105)
[2021-04-17] VITALS (40 sets, daily range): BP systolic 105–134; BP diastolic 46–81; PULSE 57–85; RESP 14–202; TEMP 37.2–37.6; O2SAT 95–100
[2021-04-17] MEDS: IPRATROPIUM BR 0.02% INH SOLN 0.5 MG/2.5 ML VIAL INHALATION ×4 (02:40→19:37)
[2021-04-17] MEDS: LEVALBUTEROL NEB 1.25 MG/3 ML 0.63 MG INHALATION ×4 (02:40→19:37)
--- NOTE | 2021-04-17 02:51 | PC.NURSE ---
Versed drip increased to 2 mg due to patient stacking breaths.
[2021-04-17] MEDS: INSULIN ASPART (*BKC) 100 UNITS/ML SUB-Q ×5 (04:45→21:10)
[2021-04-17] MEDS: HYDROCORTISONE SODIUM SUCCINATE 100 MG/2 ML VIAL IV PUSH ×3 (04:47→21:09)
[2021-04-17 04:52] LABS: Hematocrit 28.6 % (37.0-47.0); Mean Corpuscular Hemoglobin 25.6 pg (26-34); Mean Corpuscular Volume 91.7 fl (80-100); Mean Platelet Volume 9.9 fl (7.4-10.4); Platelet Count Result 321 k/mm3 (150-375); Red Blood Count 3.12 M/mm3 (4.2-5.4); Red Cell Distribution Width 20.4 % (11.5-14.5); White Blood Count 41.4 K/mm3 (4.5-10.0)
[2021-04-17] MEDS: PIPERACILLIN/TAZOBACTAM SOD 4.5 GM in SODIUM CHLORIDE 0.9% IV 100 ML IVPB (04:52)
[2021-04-17] MEDS: CENTRAL LINE FLUSH 10 ML IV PUSH ×3 (04:53→21:11)
[2021-04-17 04:56] LABS: Glucose Point of Care 346 mg/dl (65-105)
[2021-04-17 05:12] LABS: Alanine Aminotransferase 16 U/L (4-35); Albumin Level 2.6 g/dL (3.5-5.1); Alkaline Phosphatase 82 U/L (38-126); Anion Gap 3 mmol/L (8-16); Aspartate Amino Transferase 18 U/L (14-36); Bilirubin,Total 0.2 mg/dL (0.2-1.3); Blood Urea Nitrogen 20 mg/dL (7-17); Calcium 7.9 mg/dL (8.4-10.2); Carbon Dioxide 23 mmol/L (22-30); Chloride 120 mmol/L (98-107); Estimated CRCL calculation 59 ml/min; Estimated Glomerular Filt Rate > 60; Glucose 356 mg/dL (65-110); Phosphorus 1.5 mg/dL (2.5-4.5); Potassium 2.4 mmol/L (3.4-5.0); Sodium 146 mmol/L (137-145)
[2021-04-17 05:14] LABS: Base Excess ABG -6.5 mEq/l (+/-2.0); Carboxyhemoglobin 0.3 % THb (0-2.0); Device VENTILATOR; Fractional Inspired Oxygen 35 %; HCO3 ABG 19.9 mEq/l (22.0-26.0); Methemoglobin ABG 0.4 %THb (0-1.5); Modified Allen's Test Unable to perform; Oxygen Content ABG 11.9 %vol (16.0-22.0); Oxygen Saturation ABG 93.7 % (95.0-100.0); Oxyhemoglobin 93.5 % THb (90.0-100.0); PCO2 ABG 43.7 mmHg (35.0-45.0); PO2 ABG 76.8 mmHg (80.0-100.0); PO2 FiO2 Ratio Arterial Blood 2.19 %; Reduced Hemoglobin 5.8 %THb (0-5.0); Site Drawn LEFT RADIAL; pH ABG 7.277 (7.350-7.450)
[2021-04-17 05:15] LABS: Arterial Blood Gas PEEP 10 cmH2O; Arterial Blood Gas Vent Mode CMV; Arterial Blood Gas Ventilator rate 20 /MIN
[2021-04-17 05:16] LABS: Arterial Blood Gas Tidal Volume 350 ml
[2021-04-17] MEDS: POTASSIUM CHLORIDE 20 MEQ PACKET (FOR LIQUID) 40 MEQ FEED TUBE (05:40)
[2021-04-17] MEDS: KCL 40 MEQ/WATER 100 ML 100 ML 25 ML IVPB (05:54)
[2021-04-17] MEDS: POTASSIUM/PHOSPHORUS/SODIUM 1.5 GM PACKET 1 PACKET FEED TUBE (06:01)
[2021-04-17 07:00] LABS: Band Neutrophils Percent 19 % (0-6); Lymphocytes Absolute Manual 0.41 K/mm3 (1.1-4.5); Neutrophils Absolute Manual 40.98 K/mm3 (1.7-7.2); Neutrophils Percent Manual 80 % (46-73); Platelet Estimate Adequate (Adequate); Total Cells Counted 100
[2021-04-17 07:34] LABS: Glucose Point of Care 340 mg/dl (65-105)
[2021-04-17] MEDS: SACCHAROMYCES BOULARDII 250 MG CAPSULE FEED TUBE ×2 (08:53→17:54)
[2021-04-17] MEDS: PANTOPRAZOLE SODIUM IV 40 MG VIAL IV PUSH (08:53)
[2021-04-17] MEDS: ENOXAPARIN 40 MG/0.4 ML SYRINGE SUB-Q (08:53)
[2021-04-17] MEDS: levETIRAcetam ORAL SOL 500 MG/5 ML UDC FEED TUBE ×2 (08:53→21:09)
[2021-04-17] MEDS: INSULIN GLARGINE (*BKC) 100 UNITS/ML 40 UNITS SUB-Q (08:54)
[2021-04-17] MEDS: MINERAL OIL/WHITE PETROLATUM OINTMENT 1 APPLIC EACH EYE ×2 (08:55→21:15)
[2021-04-17] MEDS: TOPIRAMATE 100 MG TABLET XX ×2 (08:57→21:09)
--- NOTE | 2021-04-17 09:47 | WPDINTPN ---
Progress Note: A&P Assessment and Plan (1) Septic shock: Code(s): A41.9 - Sepsis, unspecified organism; R65.21 - Severe sepsis with septic shock Status: Acute Assessment and Plan: Elevated lactic acid, leukocytosis, pneumonia Pt given 2 L IVF Pt tachycardic Continue maintenance IV - Levophed requirements trending down, maintain mean arterial pressures > 65 mmHg Lactic acid has normalized WBC count trending down Continue Zosyn vancomycin, and levofloxacin -04/15/2021: Blood cultures negative x2 so far -04/15/2019 to urine cultures growing gram negative bacilli -04/15/2021 sputum cultures in progress (2) Acute respiratory failure: Qualifiers: Respiratory failure complication: unspecified whether with hypoxia or hypercapnia Qualified Code(s): J96.00 - Acute respiratory failure, unspecified whether with hypoxia or hypercapnia Code(s): J96.00 - Acute respiratory failure, unspecified whether with hypoxia or hypercapnia Status: Acute Assessment and Plan: Pt presented from [facility] via EMS with AMS and hypoxia. Pt was intubated in the ED on 04/15/2021 Likely due to bilateral pneumonia as seen on CT chest Currently on CMV mode, PEEP of 12 and 65% FIO2 Continue Fentanyl and Versed infusion for sedation continue bronchodilators -04/16/2021, venous Dopplers of lower extremities were negative for DVT (3) Pneumonia: Qualifiers: Laterality: unspecified laterality Lung location: unspecified part of lung Pneumonia type: due to unspecified organism Qualified Code(s): J18.9 - Pneumonia, unspecified organism Code(s): J18.9 - Pneumonia, unspecified organism Status: Acute Assessment and Plan: as above (4) Seizure: Code(s): R56.9 - Unspecified convulsions Status: Acute Assessment and Plan: H/o Sz continue keppra and toprimate (5) Insulin dependent type 2 diabetes mellitus: Code(s): E11.9 - Type 2 diabetes mellitus without complications; Z79.4 - care home (current) use of insulin Status: Acute Assessment and Plan: Continue high dose SSI and acccucheks -added Lantus b.i.d. given hyperglycemia likely related to stress does steroids (6) Encephalopathy acute: Code(s): G93.40 - Encephalopathy, unspecified Status: Acute Assessment and Plan: AMS on admission, could be related sepsis, acidosis, hypoxia, pna, UTI -CT brain reviewed, no new intracranial mass lesions were intracranial hemorrhage interval new mass effect, no subdural or epidural hematoma (7) Urinary tract infection: Code(s): N39.0 - Urinary tract infection, site not specified Status: Acute Assessment and Plan: continue ABX as above (8) Brain tumor: Code(s): D49.6 - Neoplasm of unspecified behavior of brain Status: Acute Assessment and Plan: CT brain 04/15/2021: Status post right frontal craniotomy with large right frontal lobe resection. Left vertebral artery and prominent bilateral carotid siphon internal carotid artery calcifications. Again noted is a large infiltrative partially calcified mass in the right frontal parietal area, with right insular and basal ganglia and thalamic involvement in addition to left medial frontal lobe extension. 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 This appears relatively stable since 03/07/2021. There is diminished attenuation of the cerebral white matter particularly in the frontal areas, likely due to postradiation change. No new intracranial mass lesion or intracranial hemorrhage, or interval new mass effect is evident. No subdural or epidural hematoma. Moderate central and cortical cerebral atrophy IMPRESSION: No significant change since 03/07/2021 Additional Plan DVT prophylaxis: Lovenox SQ Nutrition: Start tube feeds today Stress ulcer prophylaxis: Protonix Code status: Full code Critical care time spent: 32 minutes This dictation may have been d
[2021-04-17] MEDS: PIPERACILLIN/TAZOBACTAM SOD 4.5 GM in SODIUM CHLORIDE 0.9% IV 100 ML 200 ML IVPB ×2 (11:00→18:30)
[2021-04-17] MEDS: SODIUM CHLORIDE 0.9% IV 1,000 ML 75 ML IV CONT (11:00)
--- NOTE | 2021-04-17 11:08 | PCNFU ---
Nutrition Follow-Up Complete: Increased protein needs as related to wounds as evidenced by Pressure Ulcers. Goal: Meet estimated nutritional needs Patient is progressing towards goal. We will continue current goal. Pt current nutrition is Vital AF 1.2 at 60 ml/hr over 22 hours. Last recorded weight is 66.8 kg-stable Bowel Motility:No BM reported Labs Reviewed:PO4 1.5,BUN 20, Cr 0.6,Glu 356, Na 146, Hgb 8.0,Hct 28.6 Meds Noted:Fentanyl, Versed, Levophed, Vancomycin, Topamax, Protonix, Keppra, Florastor,Lantus, Novolog, Lovenox, Atrovent. Skin: right buttock-stage III. left heel-Deep Tissue Additional Notes: Patient remains on mechanical vent and tube feedings of Vital AF 1.2 at 60 ml/hr and tolerating. Free water flush increased to 50 ml q 4 hours, Na 146 today. Current tube feeding is providing 1584 kcals/99 gms protein/1071 ml water. Protein Modular Robbie BID for wound healing providing an additional 90 kcals and 2.5 gms protein. Agree with diet orders. Will follow in ICU rounds and reassessing every Friday and Friday.
[2021-04-17] MEDS: MIDAZOLAM 100MG/NS 100ML(*CRX) 100 MG/100 ML BAG IV CONT (11:31)
[2021-04-17] MEDS: NOREPINEPHRINE 8 MG/D5W 250 ML 8 MG/250 ML BAG 9.38 MG IV CONT (12:01)
[2021-04-17 13:18] LABS: Glucose Point of Care 386 mg/dl (65-105)
[2021-04-17 17:11] LABS: Glucose Point of Care 357 mg/dl (65-105)
[2021-04-17 20:59] LABS: Glucose Point of Care 294 mg/dl (65-105)
[2021-04-17] MEDS: INSULIN GLARGINE (*BKC) 100 UNITS/ML 30 UNITS SUB-Q (21:10)
[2021-04-18] VITALS (41 sets, daily range): BP systolic 93–162; BP diastolic 41–88; PULSE 59–109; RESP 20–30; TEMP 36.8–37.8; O2SAT 95–98
[2021-04-18] MEDS: PIPERACILLIN/TAZOBACTAM SOD 4.5 GM in SODIUM CHLORIDE 0.9% IV 100 ML 200 ML IVPB ×4 (00:10→18:45)
[2021-04-18] MEDS: IPRATROPIUM BR 0.02% INH SOLN 0.5 MG/2.5 ML VIAL INHALATION ×4 (01:38→20:10)
[2021-04-18] MEDS: LEVALBUTEROL NEB 1.25 MG/3 ML 0.63 MG INHALATION ×4 (01:38→20:10)
[2021-04-18] MEDS: INSULIN ASPART (*BKC) 100 UNITS/ML SUB-Q ×6 (01:48→20:37)
[2021-04-18 01:49] LABS: Glucose Point of Care 298 mg/dl (65-105)
[2021-04-18] MEDS: SODIUM CHLORIDE 0.9% IV 1,000 ML 75 ML IV CONT (02:52)
[2021-04-18 04:29] LABS: Alveolar/Arterial O2 Gradient 44.7 mmHg; Base Excess ABG -4.8 mEq/l (+/-2.0); Carboxyhemoglobin 0.2 % THb (0-2.0); Device VENTILATOR; Fractional Inspired Oxygen 25 %; HCO3 ABG 19.6 mEq/l (22.0-26.0); Methemoglobin ABG 0.6 %THb (0-1.5); Modified Allen's Test Pass; Oxygen Saturation ABG 97.2 % (95.0-100.0); Oxyhemoglobin 95.3 % THb (90.0-100.0); PCO2 ABG 33.3 mmHg (35.0-45.0); PO2 FiO2 Ratio Arterial Blood 3.76 %; Reduced Hemoglobin 3.9 %THb (0-5.0); Site Drawn LEFT RADIAL; Total Hemoglobin 8.1 g/dL (12.0-18.0); pH ABG 7.388 (7.350-7.450)
[2021-04-18 04:30] LABS: Arterial Blood Gas PEEP 10 cmH2O; Arterial Blood Gas Tidal Volume 350 ml; Arterial Blood Gas Vent Mode CMV; Arterial Blood Gas Ventilator rate 22 /MIN
[2021-04-18 04:36] LABS: Basophils Percent Auto 0.1 % (0.2-1.2); Hematocrit 25.2 % (37.0-47.0); Hemoglobin 7.3 g/dL (12.0-15.0); Immature Granulocyte Absolute 0.77 K/mm3 (0.00-0.031); Immature Granulocyte Percent A 3.3 % (0-0.5); Lymphocytes Absolute Auto 1.17 K/mm3 (0.9-3.2); Lymphocytes Percent Auto 5.1 % (18.3-44.2); Mean Corpuscular Hemoglobin 26.1 pg (26-34); Mean Platelet Volume 9.9 fl (7.4-10.4); Monocytes Absolute Auto 0.5 K/mm3 (0.1-0.6); Monocytes Percent Auto 1.9 % (2.6-8.5); Neutrophils Absolute Auto 20.7 K/mm3 (1.3-6.7); Neutrophils Percent Auto 89.6 % (45.5-73.1); Nucleated Red Blood Cells Perc 0.2 % (0.0-0.2); Platelet Count Result 249 k/mm3 (150-375); Red Cell Distribution Width 20.4 % (11.5-14.5); White Blood Count 23.1 K/mm3 (4.5-10.0)
[2021-04-18 05:06] LABS: Alanine Aminotransferase 14 U/L (4-35); Albumin Level 2.3 g/dL (3.5-5.1); Alkaline Phosphatase 73 U/L (38-126); Anion Gap 7 mmol/L (8-16); Aspartate Amino Transferase 14 U/L (14-36); Bilirubin,Total < 0.1 mg/dL (0.2-1.3); Blood Urea Nitrogen 29 mg/dL (7-17); Carbon Dioxide 21 mmol/L (22-30); Chloride 118 mmol/L (98-107); Estimated CRCL calculation 69 ml/min; Estimated Glomerular Filt Rate > 60; Glucose 355 mg/dL (65-110); Potassium 2.7 mmol/L (3.4-5.0); Sodium 146 mmol/L (137-145)
[2021-04-18] MEDS: KCL 40 MEQ/WATER 100 ML 100 ML 25 ML IVPB ×2 (05:35→10:53)
[2021-04-18 05:57] LABS: Phosphorus < 1.0 mg/dL (2.5-4.5)
[2021-04-18] MEDS: POTASSIUM CHLORIDE 20 MEQ PACKET (FOR LIQUID) 40 MEQ FEED TUBE (06:32)
[2021-04-18] MEDS: FENTANYL 2,500MCG/NS250ML(*CRX 2,500 MCG/250 ML BAG IV CONT (06:46)
[2021-04-18] MEDS: INSULIN GLARGINE (*BKC) 100 UNITS/ML 65 UNITS SUB-Q (08:12)
[2021-04-18] MEDS: MINERAL OIL/WHITE PETROLATUM OINTMENT 1 APPLIC EACH EYE ×2 (08:12→20:38)
[2021-04-18 08:13] LABS: Glucose Point of Care 306 mg/dl (65-105)
[2021-04-18] MEDS: SACCHAROMYCES BOULARDII 250 MG CAPSULE FEED TUBE ×2 (08:13→16:39)
[2021-04-18] MEDS: PANTOPRAZOLE SODIUM IV 40 MG VIAL IV PUSH ×2 (08:13→20:38)
[2021-04-18] MEDS: levETIRAcetam ORAL SOL 500 MG/5 ML UDC FEED TUBE ×2 (08:13→20:38)
[2021-04-18] MEDS: ENOXAPARIN 40 MG/0.4 ML SYRINGE SUB-Q (08:13)
[2021-04-18] MEDS: TOPIRAMATE 100 MG TABLET XX ×2 (08:28→20:38)
[2021-04-18 10:09] LABS: Anion Gap 5 mmol/L (8-16); Blood Urea Nitrogen 32 mg/dL (7-17); Calcium 8.1 mg/dL (8.4-10.2); Carbon Dioxide 22 mmol/L (22-30); Chloride 120 mmol/L (98-107); Estimated CRCL calculation 69 ml/min; Estimated Glomerular Filt Rate > 60; Glucose 315 mg/dL (65-110); Potassium 3.1 mmol/L (3.4-5.0); Sodium 147 mmol/L (137-145)
[2021-04-18 10:50] LABS: Vancomycin Trough 6.6 ug/mL (10.0-20.0)
[2021-04-18] MEDS: DORNASE ALFA INH SOLN 1 MG/ML 2.5 ML AMP 2.5 MG INHALATION ×2 (11:03→20:10)
--- NOTE | 2021-04-18 11:05 | PCFNICU ---
ICU Rounding Note: Pt current nutrition is Vital AF 1.2 at 60 ml/hr over 22 hours. Last recorded weight is 66.8 kg-stable Bowel Motility:No BM-miralax to start today. Labs Reviewed:Cr 0.5,BUN 29, Na 146, Hct 25.2,Hgb 7.3,K 2.7, Glu 315 Meds Noted:Fentanyl, Versed, Keppra,Florastor, Lovenox, Protonix, Lantus, Novolog, Atrovent, Potassium Chloride, Topamax. Skin: right buttock-Stage IV. Left heel-deep tissue. Additional Notes: Patient remains on mechanical vent and tube feedings of Vital AF 1.2 at goal rate of 60 ml/hr. Tube feeding is providing 1584 kcals/99 gms protein/1071 ml water. Free water flush 50 ml q 4 hours. Agree with diet orders. Following daily in ICU rounds. Will monitor every Friday and Friday.
--- NOTE | 2021-04-18 11:44 | WPDINTPN ---
Progress Note: A&P Assessment and Plan (1) Septic shock: Code(s): A41.9 - Sepsis, unspecified organism; R65.21 - Severe sepsis with septic shock Status: Acute Assessment and Plan: Elevated lactic acid, leukocytosis, pneumonia Patient was adequately fluid-resuscitated upon admission Will discontinue maintenance IV fluids -discontinue stress dose steroids OFF LEVOPHED WBC count has significantly declined to 23 this morning Continue Zosyn vancomycin, and levofloxacin -04/15/2021: Blood cultures negative x2 so far -04/15/2019 to urine cultures growing Pseudomonas -04/15/2021 sputum cultures in progress (2) Acute respiratory failure: Qualifiers: Respiratory failure complication: unspecified whether with hypoxia or hypercapnia Qualified Code(s): J96.00 - Acute respiratory failure, unspecified whether with hypoxia or hypercapnia Code(s): J96.00 - Acute respiratory failure, unspecified whether with hypoxia or hypercapnia Status: Acute Assessment and Plan: Pt presented from skilled nursing via EMS with AMS and hypoxia. Pt was intubated in the ED on 04/15/2021 Likely due to bilateral pneumonia as seen on CT chest -chest x-ray this morning shows There is moderate amount of left-sided, small to moderate amount of right-sided ill-defined pneumonia and/or edema. There are no sizable pleural effusions. There is no pneumothorax suspected. Currently on CMV mode, PEEP of 10 and 25% FIO2, will wean PEEP to 8 Continue Fentanyl and Versed infusion for sedation continue bronchodilators -04/16/2021, venous Dopplers of lower extremities were negative for DVT (3) Pneumonia: Qualifiers: Laterality: unspecified laterality Lung location: unspecified part of lung Pneumonia type: due to unspecified organism Qualified Code(s): J18.9 - Pneumonia, unspecified organism Code(s): J18.9 - Pneumonia, unspecified organism Status: Acute Assessment and Plan: as above (4) Seizure: Code(s): R56.9 - Unspecified convulsions Status: Acute Assessment and Plan: H/o Sz continue keppra and toprimate (5) Insulin dependent type 2 diabetes mellitus: Code(s): E11.9 - Type 2 diabetes mellitus without complications; 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 -will discontinue stress dose steroids which will help with hyperglycemia (6) Encephalopathy acute: Code(s): G93.40 - Encephalopathy, unspecified Status: Acute Assessment and Plan: AMS on admission, could be related sepsis, acidosis, hypoxia, pna, UTI -CT brain reviewed, no new intracranial mass lesions were intracranial hemorrhage interval new mass effect, no subdural or epidural hematoma (7) Urinary tract infection: Code(s): N39.0 - Urinary tract infection, site not specified Status: Acute Assessment and Plan: continue ABX as above (8) Brain tumor: Code(s): D49.6 - Neoplasm of unspecified behavior of brain Status: Acute Assessment and Plan: CT brain 04/15/2021: Status post right frontal craniotomy with large right frontal lobe resection. Left vertebral artery and prominent bilateral carotid siphon internal carotid artery calcifications. Again noted is a large infiltrative partially calcified mass in the right frontal parietal area, with right insular and basal ganglia and thalamic involvement in addition to left medial frontal lobe extension. 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 This appears relatively stable since 03/07/2021. There is diminished attenuation of the cerebral white matter particularly in the frontal areas, likely due to postradiation change. No new intracranial mass lesion or intracranial hemorrhage, or interval new mass effect is evident. No subdural or epidural hematoma. Moderate centr
[2021-04-18 12:09] LABS: Glucose Point of Care 271 mg/dl (65-105)
[2021-04-18] MEDS: polyethylene glycoL 3350 17 GM POWD.PACK PO (13:01)
--- NOTE | 2021-04-18 13:33 | WPDGICN ---
Assessment and Plan Assessment and plan (1) Anemia: Code(s): D64.9 - Anemia, unspecified Status: Acute Assessment and Plan: Patient with chronic anemia. Has had some decline in hemoglobin since admission to the ICU. This could be from hemodilution, from sepsis, from bone marrow depression. GI bleeding cannot be excluded. If so stress gastritis most likely. Agree with keeping patient on PPI empirically. Monitor hemoglobin. Stool Hemoccult should be obtained. Given her present comorbid diseases. Invasive testing such as EGD should be deferred. (2) Brain tumor: Code(s): D49.6 - Neoplasm of unspecified behavior of brain Status: Chronic (3) Pneumonia: Code(s): J18.9 - Pneumonia, unspecified organism Status: Acute (4) Respiratory failure: Code(s): J96.90 - Respiratory failure, unspecified, unspecified whether with hypoxia or hypercapnia Status: Acute (5) Acute UTI: Code(s): N39.0 - Urinary tract infection, site not specified Status: Acute GI Consult Note Consult date/time: 04/18/21 13:33 HPI: Linette Vásquez is a 76 year old female I am asked to see because of anemia. Patient presented on 04/15/2021 with acute respiratory failure found to have pneumonia sepsis and respiratory failure requiring intubation. She subsequently displaced in the intensive care unit during several days in the hospital gradual decline in hemoglobin is noted. There has been no obvious signs of bleeding. Nursing staff when reports when flushing the G tube that no blood is encountered. Patient known to our service because the gastrostomy was tube was placed several years ago. She has had chronic anemia since that time. Patient currently intubated unable to add any additional history. Patient does have a past history of a brain tumor. Review of Systems Review of Systems: ROS unobtainable: Yes unobtainable due to endotracheal tube PMFSH Past Medical History Medical History Chronic anemia Chronic GERD Chronic indwelling Hodge catheter Dementia Dysphagia Peg tube in-situ. Elevated transaminase level Appears chronic. 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 Surgical History Surgical History Gastrointestinal tube in situ (~02/2020) History of craniotomy Right frontal lobe craniotomy with resection of oligodendroglioma. Family History Family History Mother Diabetes mellitus Father Lung cancer Sibling Breast cancer she has Sibling Breast cancer Father Lung cancer Social History Social History (Updated 04/15/21 @ 21:57 by Nandini Parra PA-C) Social History: The patient is a resident at a local skilled nursing. She is a former smoker. No alcohol or illicit substance use. Julia Phelps is her healthcare power privacy attorney. Code status: Full code. Spiritual care concerns: No Meds Home Medications and Allergies Home Medications Medication Instructions Recorded Confirmed Type ascorbic acid (vitamin C) [Vitamin 500 mg FEEDING TUBE DAILY 03/16/20 04/15/21 History C] cholecalciferol (vitamin D3) 1,250 mcg FEEDING TUBE WEEKLY 03/17/20 04/15/21 History lactulose 15 ml FEEDING TUBE Q8H PRN 03/17/20 04/15/21 History Fleet Enema 118 ml RECTAL DAILY PRN 12/26/20 04/15/21 History umeclidinium-vilanterol 1 inh INHALATION DAILY PRN 12/26/20 04/15/21 History bisacodyl 10 mg RECTAL DAILY PRN 01/01/21 04/15/21 History d-mannose 500 mg DAILY 01/01/21 04/15/21 History diclofenac sodium 1 applic TOPICAL BID PRN 01/01/21 04/15/21 History magnesium citrate [Citroma] 296 ml FEEDING TUBE DAILY PRN 01/01/21 04/15/21 Histor
[2021-04-18 13:48] LABS: Immature Reticulocyte Fraction 34.2 % (3.0-15.9); Reticulocyte Hemoglobin Conten 22.5 pg (28.2-35.7); Reticulocyte Percent 2.05 % (0.7-4.3); Reticulocytes Absolute 0.06 B/L (32.2-175.7)
[2021-04-18 13:55] LABS: Lactate Dehydrogenase 338 U/L (313-618)
[2021-04-18 14:20] LABS: Iron < 10 ug/dL (37-170)
[2021-04-18] MEDS: dexmedeTOMIDine 400 MCG/100 ML 400 MCG/100 ML BAG IV CONT (14:49)
[2021-04-18 16:04] LABS: Glucose Point of Care 245 mg/dl (65-105)
[2021-04-18 20:29] LABS: Glucose Point of Care 204 mg/dl (65-105)
[2021-04-18] MEDS: INSULIN GLARGINE (*BKC) 100 UNITS/ML 50 UNITS SUB-Q (20:36)
[2021-04-18] MEDS: CENTRAL LINE FLUSH 10 ML IV PUSH (22:00)
[2021-04-19] VITALS (32 sets, daily range): BP systolic 96–155; BP diastolic 45–53; PULSE 69–89; RESP 22–40; TEMP 37.2–37.9; O2SAT 91–97
[2021-04-19] MEDS: INSULIN ASPART (*BKC) 100 UNITS/ML SUB-Q ×4 (00:14→17:31)
[2021-04-19] MEDS: PIPERACILLIN/TAZOBACTAM SOD 4.5 GM in SODIUM CHLORIDE 0.9% IV 100 ML 200 ML IVPB ×4 (00:15→17:32)
[2021-04-19 00:35] LABS: Glucose Point of Care 221 mg/dl (65-105)
[2021-04-19] MEDS: LEVALBUTEROL NEB 1.25 MG/3 ML 0.63 MG INHALATION ×4 (02:15→20:00)
[2021-04-19] MEDS: IPRATROPIUM BR 0.02% INH SOLN 0.5 MG/2.5 ML VIAL INHALATION ×4 (02:15→20:00)
[2021-04-19 04:08] LABS: Basophils Absolute Auto 0.1 K/mm3 (0.0-0.1); Basophils Percent Auto 0.4 % (0.2-1.2); Eosinophils Absolute Auto 0.5 K/mm3 (0-0.3); Eosinophils Percent Auto 3.4 % (0-4.4); Hematocrit 25.1 % (37.0-47.0); Hemoglobin 7.3 g/dL (12.0-15.0); Immature Granulocyte Absolute 0.15 K/mm3 (0.00-0.031); Immature Granulocyte Percent A 1.1 % (0-0.5); Lymphocytes Absolute Auto 1.97 K/mm3 (0.9-3.2); Lymphocytes Percent Auto 14.1 % (18.3-44.2); Mean Corpuscular HGB Conc 29.1 g/dl (32-36); Mean Corpuscular Hemoglobin 25.7 pg (26-34); Mean Corpuscular Volume 88.4 fl (80-100); Monocytes Absolute Auto 0.6 K/mm3 (0.1-0.6); Monocytes Percent Auto 3.9 % (2.6-8.5); Neutrophils Absolute Auto 10.8 K/mm3 (1.3-6.7); Neutrophils Percent Auto 77.1 % (45.5-73.1); Nucleated Red Blood Cells Absolute Auto 0.1 K/mm3 (0.0-0.012); Nucleated Red Blood Cells Perc 0.5 % (0.0-0.2); Platelet Count Result 256 k/mm3 (150-375); Red Blood Count 2.84 M/mm3 (4.2-5.4); Red Cell Distribution Width 20.8 % (11.5-14.5)
[2021-04-19 04:14] LABS: Alanine Aminotransferase 15 U/L (4-35); Albumin Level 2.5 g/dL (3.5-5.1); Alkaline Phosphatase 75 U/L (38-126); Anion Gap 4 mmol/L (8-16); Aspartate Amino Transferase 20 U/L (14-36); Bilirubin,Total 0.2 mg/dL (0.2-1.3); Blood Urea Nitrogen 37 mg/dL (7-17); Calcium 8.4 mg/dL (8.4-10.2); Carbon Dioxide 24 mmol/L (22-30); Chloride 117 mmol/L (98-107); Estimated CRCL calculation 59 ml/min; Estimated Glomerular Filt Rate > 60; Glucose 256 mg/dL (65-110); Potassium 3.3 mmol/L (3.4-5.0); Sodium 145 mmol/L (137-145)
[2021-04-19 04:15] LABS: Phosphorus < 0.5 mg/dL (2.5-4.5)
[2021-04-19 04:22] LABS: Alveolar/Arterial O2 Gradient 70.6 mmHg; Base Excess ABG -2.2 mEq/l (+/-2.0); Carboxyhemoglobin 0.3 % THb (0-2.0); Device VENTILATOR; Fractional Inspired Oxygen 25 %; HCO3 ABG 22.6 mEq/l (22.0-26.0); Methemoglobin ABG 0.3 %THb (0-1.5); Modified Allen's Test Pass; Oxygen Content ABG 14.3 %vol (16.0-22.0); Oxygen Saturation ABG 91.4 % (95.0-100.0); Oxyhemoglobin 90.9 % THb (90.0-100.0); PCO2 ABG 38.8 mmHg (35.0-45.0); PO2 ABG 61.6 mmHg (80.0-100.0); PO2 FiO2 Ratio Arterial Blood 2.46 %; Reduced Hemoglobin 8.5 %THb (0-5.0); Site Drawn LEFT RADIAL; Total Hemoglobin 11.2 g/dL (12.0-18.0); pH ABG 7.383 (7.350-7.450)
[2021-04-19 04:23] LABS: Arterial Blood Gas PEEP 8 cmH2O; Arterial Blood Gas Tidal Volume 350 ml; Arterial Blood Gas Vent Mode CMV; Arterial Blood Gas Ventilator rate 22 /MIN
[2021-04-19] MEDS: dexmedeTOMIDine 400 MCG/100 ML 400 MCG/100 ML BAG 6.68 MCG IV CONT (04:29)
[2021-04-19] MEDS: CENTRAL LINE FLUSH 10 ML IV PUSH ×2 (05:42→16:09)
[2021-04-19 05:45] LABS: Glucose Point of Care 197 mg/dl (65-105)
[2021-04-19 07:32] LABS: Glucose Point of Care 209 mg/dl (65-105)
[2021-04-19] MEDS: DORNASE ALFA INH SOLN 1 MG/ML 2.5 ML AMP 2.5 MG INHALATION ×2 (09:26→20:00)
[2021-04-19] MEDS: KCL 40 MEQ/WATER 100 ML 100 ML 25 ML IVPB (09:42)
[2021-04-19] MEDS: MINERAL OIL/WHITE PETROLATUM OINTMENT 1 APPLIC EACH EYE ×2 (09:42→20:27)
[2021-04-19] MEDS: levETIRAcetam ORAL SOL 500 MG/5 ML UDC FEED TUBE ×2 (09:42→20:27)
[2021-04-19] MEDS: polyethylene glycoL 3350 17 GM POWD.PACK PO (09:43)
[2021-04-19] MEDS: PANTOPRAZOLE SODIUM IV 40 MG VIAL IV PUSH ×2 (09:43→20:27)
[2021-04-19] MEDS: SACCHAROMYCES BOULARDII 250 MG CAPSULE FEED TUBE ×2 (09:43→17:31)
[2021-04-19] MEDS: POTASSIUM PHOS/SODIUM PHOS 250 MG TABLET PO ×2 (09:43→17:31)
[2021-04-19] MEDS: TOPIRAMATE 100 MG TABLET XX ×2 (09:43→20:28)
[2021-04-19] MEDS: INSULIN GLARGINE (*BKC) 100 UNITS/ML 40 UNITS SUB-Q (10:02)
--- NOTE | 2021-04-19 10:58 | PCFNICU ---
ICU Rounding Note: Pt current nutrition is Vital AF 1.2 at 60 ml/hr over 22 hours. Last recorded weight is 75.6 kg, up from 67.5 kg on admit. Bowel Motility:No BM reported-Miralax started 04/18 Labs Reviewed:Glu 256, Cr 0.6,K 3.3,Hct 25.1,Hgb 7.3 Meds Noted: Versed, Keppra, Precedex, Lantus, Sodium Phosphate,Florastor, Miralax, Protonix,NovoLog, Atrovent. Skin: right buttock-stage II PU, left heel-deep tissue. Additional Notes: Patient remains on mechanical vent and tube feedings of Vital AF 1.2 at 60 ml/hr over 22hours. Tolerating feedings. Free water flush 50 ml q 4 hours. Agree with diet orders. Following daily in ICU rounds. Will monitor every Friday and Friday.
--- NOTE | 2021-04-19 11:12 | WPDINTPN ---
Progress Note: A&P Assessment and Plan (1) Septic shock: Code(s): A41.9 - Sepsis, unspecified organism; R65.21 - Severe sepsis with septic shock Status: Acute Assessment and Plan: Elevated lactic acid, leukocytosis, pneumonia Patient was adequately fluid-resuscitated upon admission OFF LEVOPHED WBC count trending down Continue Zosyn vancomycin, and levofloxacin -04/15/2021: Blood cultures negative x2 so far -04/15/2019 to urine cultures growing Pseudomonas -04/15/2021 sputum cultures Pseudomonas (2) Acute respiratory failure: Qualifiers: Respiratory failure complication: unspecified whether with hypoxia or hypercapnia Qualified Code(s): J96.00 - Acute respiratory failure, unspecified whether with hypoxia or hypercapnia Code(s): J96.00 - Acute respiratory failure, unspecified whether with hypoxia or hypercapnia Status: Acute Assessment and Plan: Pt presented from [facility] via EMS with AMS and hypoxia. Pt was intubated in the ED on 04/15/2021 Likely due to bilateral pneumonia as seen on CT chest -chest x-ray this morning shows There is moderate amount of left-sided, small to moderate amount of right-sided ill-defined pneumonia and/or edema. There are no sizable pleural effusions. There is no pneumothorax suspected. Currently on CMV mode, PEEP of 8 and 25% FIO2, Will wean fentanyl and Versed to off and continue Precedex infusion continue bronchodilators -04/16/2021, venous Dopplers of lower extremities were negative for DVT - Will give bumex 1 mg Iv x1 (3) Pneumonia: Qualifiers: Laterality: unspecified laterality Lung location: unspecified part of lung Pneumonia type: due to unspecified organism Qualified Code(s): J18.9 - Pneumonia, unspecified organism Code(s): J18.9 - Pneumonia, unspecified organism Status: Acute Assessment and Plan: Pseudomonas pneumonia, continue Zosyn, vancomycin and Levaquin (4) Seizure: Code(s): R56.9 - Unspecified convulsions Status: Acute Assessment and Plan: H/o Sz continue keppra and toprimate (5) Insulin dependent type 2 diabetes mellitus: Code(s): E11.9 - Type 2 diabetes mellitus without complications; Z79.4 - care home (current) use of insulin Status: Acute Assessment and Plan: Continue high dose SSI and acccucheks -hyperglycemia better, now off stress dose steroids. Will decrease Lantus and monitor (6) Encephalopathy acute: Code(s): G93.40 - Encephalopathy, unspecified Status: Acute Assessment and Plan: AMS on admission, could be related sepsis, acidosis, hypoxia, pna, UTI -CT brain reviewed, no new intracranial mass lesions were intracranial hemorrhage interval new mass effect, no subdural or epidural hematoma (7) Urinary tract infection: Code(s): N39.0 - Urinary tract infection, site not specified Status: Acute Assessment and Plan: continue ABX as above (8) Brain tumor: Code(s): D49.6 - Neoplasm of unspecified behavior of brain Status: Acute Assessment and Plan: CT brain 04/15/2021: Status post right frontal craniotomy with large right frontal lobe resection. Left vertebral artery and prominent bilateral carotid siphon internal carotid artery calcifications. Again noted is a large infiltrative partially calcified mass in the right frontal parietal area, with right insular and basal ganglia and thalamic involvement in addition to left medial frontal lobe extension. 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 This appears relatively stable since 03/07/2021. There is diminished attenuation of the cerebral white matter particularly in the frontal areas, likely due to postradiation change. No new intracranial mass lesion or intracranial hemorrhage, or interval new mass effect is evident. No subdural or epidural hematoma. Moderate central and cortical cerebral atrophy IMPRESSION: No significant change si
[2021-04-19] MEDS: BUMETANIDE INJ 1 MG/4 ML VIAL IV PUSH (11:40)
--- NOTE | 2021-04-19 11:53 | WPDNEURCNPN ---
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 She was recently discharged from the hospital on March 30, 2021 during that hospital stay she was seen by us and was treated for recurrent focal seizures along with the treatment for aspiration pneumonia and finding of left coronal DVT raising the possible high risk for intracranial bleeding if treated for prophylaxis she was not treated with anticoagulation, not treated with any other medication for intractable epilepsy related to localization because of the clinicaland neurological status . Low discussion was made in regards to the 2, seizures and ongoing care with the family at present she is being treated for bilateral pulmonary infiltrates along with the sepsis with the appropriate antibiotics that is vancomycin and Zosyn Review of Systems Review of Systems: All systems reviewed & are unremarkable except as noted in HPI and below PMFSH Past Medical History Medical History Chronic anemia Chronic GERD Chronic indwelling Hodge catheter Dementia Dysphagia Peg tube in-situ. Elevated transaminase level Appears chronic. 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 Surgical History Surgical History Gastrointestinal tube in situ (~02/2020) History of craniotomy Right frontal lobe craniotomy with resection of oligodendroglioma. Family History Family History Mother Diabetes mellitus Father Lung cancer Sibling Breast cancer she has Sibling Breast cancer Father Lung cancer Social History Social History Social History: The patient is a resident at a local intermediate. She is a former smoker. No alcohol or illicit substance use. Julia Phelps is her healthcare power attorney lawyer. Code status: Full code. Spiritual care concerns: No Meds Home Medications and Allergies Home Medications Medication Instructions Recorded Confirmed Type ascorbic acid (vitamin C) [Vitamin 500 mg FEEDING TUBE DAILY 03/16/20 04/15/21 History C] cholecalciferol (vitamin D3) 1,250 mcg FEEDING TUBE WEEKLY 03/17/20 04/15/21 History lactulose 15 ml FEEDING TUBE Q8H PRN 03/17/20 04/15/21 History Fleet Enema 118 ml RECTAL DAILY PRN 12/26/20 04/15/21 History umeclidinium-vilanterol 1 inh INHALATION DAILY PRN 12/26/20 04/15/21 History bisacodyl 10 mg RECTAL DAILY PRN 01/01/21 04/15/21 History d-mannose 500 mg DAILY 01/01/21 04/15/21 History diclofenac sodium 1 applic TOPICAL BID PRN 01/01/21 04/15/21 History magnesium citrate [Citroma] 296 ml FEEDING TUBE DAILY PRN 01/01/21 04/15/21 History magnesium hydroxide 30 ml FEEDING TUBE HS PRN 01/01/21 04/15/21 History ondansetron HCl 4 mg FEEDING TUBE Q6H PRN 01/01/21 04/15/21 History Basaglar KwikPen U-100 Insulin 40 unit SUBCUT HS 01/26/21 04/15/21 History Saccharomyces boulardii [Florastor] 250 mg FEEDING TUBE BID 01/26/21 04/15/21 History acetaminophen [Mapap 650 mg FEEDING TUBE Q8H PRN 02/28/21 04/15/21 History (acetaminophen)] chlorhexidine gluconate [Peridex] 15 ml BUCCAL BID 02/28/21 04/15/21 History insulin aspart U-100 [Novolog 1
[2021-04-19 12:00] LABS: Glucose Point of Care 240 mg/dl (65-105)
[2021-04-19 13:51] LABS: Iron 13 ug/dL (37-170)
--- NOTE | 2021-04-19 13:56 | WPDGIPROGNO ---
Progress Note: A&P Assessment and Plan (1) Anemia: Code(s): D64.9 - Anemia, unspecified Status: Acute Assessment and Plan: Anemia noted. No obvious bleeding described. Stool now confirmed to be Hemoccult negative. Anemia likely multifactorial. No significant bleeding noted. It may be prudent to continue PPI to protect against possible stress gastritis. No GI intervention anticipated. (2) G tube feedings: Code(s): Z93.1 - Gastrostomy status Status: Acute Assessment and Plan: Patient on G-tube feedings. Appears to be tolerating these well. No changes anticipated. (3) Brain tumor: Code(s): D49.6 - Neoplasm of unspecified behavior of brain Status: Acute (4) Septic shock: Code(s): A41.9 - Sepsis, unspecified organism; R65.21 - Severe sepsis with septic shock Status: Acute (5) Pneumonia: Code(s): J18.9 - Pneumonia, unspecified organism Status: Acute (6) Respiratory failure: Code(s): J96.90 - Respiratory failure, unspecified, unspecified whether with hypoxia or hypercapnia Status: Acute Subjective Date/time seen: 04/19/21 13:56 Patient remains on the ventilator. Admitted with altered mental status now with Pseudomonas pneumonia. Decline in hemoglobin noted. Stool Hemoccult negative today. Patient unable to add any history because of ventilator. Review of Systems Review of Systems: ROS unobtainable: Yes unobtainable due to endotracheal tube Exam Narrative: Physical exam patient remains on ventilator. Lungs reveal a few rhonchi. Abdomen bowel sounds present soft nontender modestly obese. Objective Data Vital Signs Vital Signs: Vital Signs - 24 hr 04/18/21 14:00 04/18/21 14:33 04/18/21 14:37 Temperature Pulse Rate 85 90 87 Respiratory Rate 20 23 H Blood Pressure 112/51 L Pulse Oximetry 96 96 04/18/21 14:42 04/18/21 14:49 04/18/21 14:53 Temperature Pulse Rate 87 93 93 Respiratory Rate 22 H 23 H 23 H Blood Pressure Pulse Oximetry 04/18/21 14:54 04/18/21 16:00 04/18/21 16:50 Temperature 99.8 F H Pulse Rate 92 83 76 Respiratory Rate 23 H 24 H 22 H Blood Pressure 102/49 L Pulse Oximetry 96 04/18/21 16:51 04/18/21 17:24 04/18/21 18:00 Temperature Pulse Rate 76 77 78 Respiratory Rate 22 H 28 H Blood Pressure 93/46 L Pulse Oximetry 97 96 04/18/21 18:04 04/18/21 20:00 04/18/21 20:11 Temperature 100.1 F H Pulse Rate 78 74 73 Respiratory Rate 30 H 26 H 24 H Blood Pressure 103/45 L Pulse Oximetry 96 04/18/21 20:13 04/18/21 20:30 04/18/21 22:00 Temperature 99.9 F H Pulse Rate 73 71 75 Respiratory Rate 24 H 22 H Blood Pressure 108/44 L Pulse Oximetry 96 95 04/18/21 23:10 04/19/21 00:00 04/19/21 02:00 Temperature 100.1 F H 100.1 F H Pulse Rate 72 74 72 Respiratory Rate 27 H 27 H Blood Pressure 96/46 L 102/45 L Pulse Oximetry 95 94 95 04/19/21 02:17 04/19/21 02:27 04/19/21 04:00 Temperature 99.9 F H Pulse Rate 73 70 77 Respiratory Rate 27 H 27 H 26 H Blood Pressure 116/49 L Pulse Oximetry 95 95 04/19/21 04:29 04/19/21 04:59 04/19/21 06:00 Temperature 99.6 F Pulse Rate 75 76 73 Respiratory Rate 24 H 23 H Blood Pressure 97/45 L Pulse Oximetry 95 95 04/19/21 08:00 04/19/21 09:27 04/19/21 09:38 Temperature 99.4 F Pulse Rate 69 71 73 Respiratory Rate 23 H 24 H Blood Pressure 108/49 L Pulse Oximetry 95 97 04/19/21 09:41 04/19/21 10:00 04/19/21 12:00 Temperature 99.6 F Pulse Rate 73 73 80 Respiratory Rate 22 H 24 H 23 H Blood Pressure 104/46 L 114/53 L Pulse Oximetry 95 93 04/19/21 12:08 Temperature Pulse Rate 80 Respiratory Rate Blood Pressure Pulse Oximetry 94 Intake/Output Intake/Output: Intake & Output 04/16/21 04/17/21 04/18/21 04/19/21 23:59 23:59 23:59 23:59 Intake Total 3748 4420 2683.7 1195.3 Output Total 1775 1725 1900 710 Balance 1972 2695 783.7 485.3 Meds/
[2021-04-19 14:00] LABS: Percent Iron Saturation 7 % (20-50)
[2021-04-19 14:35] LABS: Folic Acid 13.6 ng/mL (2.76->20)
[2021-04-19] MEDS: dexmedeTOMIDine 400 MCG/100 ML 400 MCG/100 ML BAG 10.02 MCG IV CONT (16:09)
[2021-04-19 17:21] LABS: Glucose Point of Care 219 mg/dl (65-105)
[2021-04-19] MEDS: PROPOFOL IV EMULSION 100 ML 2.27 MG IV CONT (17:31)
[2021-04-19 19:55] LABS: Glucose Point of Care 199 mg/dl (65-105)
[2021-04-19] MEDS: INSULIN GLARGINE (*BKC) 100 UNITS/ML 50 UNITS SUB-Q (20:26)
--- NOTE | 2021-04-19 22:52 | PC.NURSE ---
The propofol was found to be on 10 but only a dose of 5 is charted. The nurse reported to me that is was on 10. I increased the dose because the patient was tachypneic and looked uncomfortable.
[2021-04-19] MEDS: dexmedeTOMIDine 400 MCG/100 ML 400 MCG/100 ML BAG 11.69 MCG IV CONT (23:59)
[2021-04-20] VITALS (33 sets, daily range): BP systolic 101–141; BP diastolic 42–60; PULSE 67–125; RESP 24–44; TEMP 36.1–37.8; O2SAT 92–100
[2021-04-20 00:23] LABS: Glucose Point of Care 261 mg/dl (65-105)
[2021-04-20] MEDS: INSULIN ASPART (*BKC) 100 UNITS/ML SUB-Q ×3 (00:23→12:50)
[2021-04-20] MEDS: IPRATROPIUM BR 0.02% INH SOLN 0.5 MG/2.5 ML VIAL INHALATION ×4 (02:00→20:13)
[2021-04-20] MEDS: LEVALBUTEROL NEB 1.25 MG/3 ML 0.63 MG INHALATION ×4 (02:00→20:13)
[2021-04-20] MEDS: PROPOFOL IV EMULSION 100 ML 9.07 MG IV CONT (03:20)
[2021-04-20 03:43] LABS: Glucose Point of Care 195 mg/dl (65-105)
[2021-04-20 04:30] LABS: Basophils Absolute Auto 0.1 K/mm3 (0.0-0.1); Basophils Percent Auto 0.4 % (0.2-1.2); Eosinophils Absolute Auto 0.8 K/mm3 (0-0.3); Eosinophils Percent Auto 5.5 % (0-4.4); Hematocrit 25.9 % (37.0-47.0); Hemoglobin 7.7 g/dL (12.0-15.0); Immature Granulocyte Absolute 0.28 K/mm3 (0.00-0.031); Immature Granulocyte Percent A 1.8 % (0-0.5); Lymphocytes Absolute Auto 2.44 K/mm3 (0.9-3.2); Mean Corpuscular HGB Conc 29.7 g/dl (32-36); Mean Corpuscular Hemoglobin 25.9 pg (26-34); Mean Corpuscular Volume 87.2 fl (80-100); Mean Platelet Volume 10.3 fl (7.4-10.4); Monocytes Absolute Auto 0.6 K/mm3 (0.1-0.6); Monocytes Percent Auto 3.6 % (2.6-8.5); Neutrophils Absolute Auto 11.1 K/mm3 (1.3-6.7); Neutrophils Percent Auto 72.7 % (45.5-73.1); Nucleated Red Blood Cells Absolute Auto 0.1 K/mm3 (0.0-0.012); Nucleated Red Blood Cells Perc 0.3 % (0.0-0.2); Platelet Count Result 264 k/mm3 (150-375); Red Blood Count 2.97 M/mm3 (4.2-5.4); Red Cell Distribution Width 21.1 % (11.5-14.5); White Blood Count 15.2 K/mm3 (4.5-10.0)
[2021-04-20 04:42] LABS: Alveolar/Arterial O2 Gradient 63.1 mmHg; Arterial Blood Gas PEEP 8 cmH2O; Arterial Blood Gas Vent Mode CMV; Arterial Blood Gas Ventilator rate 22 /MIN; Base Excess ABG -1.3 mEq/l (+/-2.0); Carboxyhemoglobin 0.1 % THb (0-2.0); Device VENTILATOR; Fractional Inspired Oxygen 25 %; HCO3 ABG 22.4 mEq/l (22.0-26.0); Methemoglobin ABG 0.2 %THb (0-1.5); Modified Allen's Test Unable to perform; Oxygen Content ABG 11.8 %vol (16.0-22.0); Oxygen Saturation ABG 95.7 % (95.0-100.0); Oxyhemoglobin 94.3 % THb (90.0-100.0); PCO2 ABG 33.6 mmHg (35.0-45.0); PO2 ABG 75.3 mmHg (80.0-100.0); PO2 FiO2 Ratio Arterial Blood 3.01 %; Reduced Hemoglobin 5.4 %THb (0-5.0); Site Drawn LEFT RADIAL; Total Hemoglobin 8.8 g/dL (12.0-18.0); pH ABG 7.442 (7.350-7.450)
[2021-04-20 04:43] LABS: Arterial Blood Gas Tidal Volume 350 ml
[2021-04-20 05:00] LABS: Alanine Aminotransferase 15 U/L (4-35); Albumin Level 2.6 g/dL (3.5-5.1); Alkaline Phosphatase 67 U/L (38-126); Anion Gap 3 mmol/L (8-16); Aspartate Amino Transferase 14 U/L (14-36); Bilirubin,Total 0.2 mg/dL (0.2-1.3); Blood Urea Nitrogen 31 mg/dL (7-17); Calcium 8.1 mg/dL (8.4-10.2); Carbon Dioxide 25 mmol/L (22-30); Chloride 117 mmol/L (98-107); Estimated CRCL calculation 63 ml/min; Estimated Glomerular Filt Rate > 60; Glucose 194 mg/dL (65-110); Magnesium 1.9 mg/dL (1.6-2.3); Phosphorus 1.7 mg/dL (2.5-4.5); Potassium 2.7 mmol/L (3.4-5.0); Sodium 145 mmol/L (137-145)
[2021-04-20] MEDS: PIPERACILLIN/TAZOBACTAM SOD 4.5 GM in SODIUM CHLORIDE 0.9% IV 100 ML 200 ML IVPB ×4 (06:08→17:25)
[2021-04-20] MEDS: CENTRAL LINE FLUSH 10 ML IV PUSH ×4 (06:08→21:30)
[2021-04-20 08:05] LABS: Glucose Point of Care 205 mg/dl (65-105)
[2021-04-20] MEDS: POTASSIUM CHLORIDE 20 MEQ PACKET (FOR LIQUID) 40 MEQ FEED TUBE ×2 (08:50→08:52)
[2021-04-20] MEDS: KCL 40 MEQ/WATER 100 ML 100 ML 25 ML IVPB (08:50)
[2021-04-20] MEDS: SACCHAROMYCES BOULARDII 250 MG CAPSULE FEED TUBE ×2 (08:51→17:25)
[2021-04-20] MEDS: levETIRAcetam ORAL SOL 500 MG/5 ML UDC FEED TUBE ×2 (08:51→21:25)
[2021-04-20] MEDS: MINERAL OIL/WHITE PETROLATUM OINTMENT 1 APPLIC EACH EYE ×2 (08:51→21:25)
[2021-04-20] MEDS: BUMETANIDE INJ 1 MG/4 ML VIAL IV PUSH ×2 (08:51→14:10)
[2021-04-20] MEDS: PANTOPRAZOLE SODIUM IV 40 MG VIAL IV PUSH ×2 (08:51→21:27)
[2021-04-20] MEDS: TOPIRAMATE 100 MG TABLET XX ×2 (08:51→21:34)
[2021-04-20] MEDS: POTASSIUM/PHOSPHORUS/SODIUM 1.5 GM PACKET 1 PACKET PO (08:52)
[2021-04-20] MEDS: INSULIN GLARGINE (*BKC) 100 UNITS/ML 40 UNITS SUB-Q (09:03)
[2021-04-20] MEDS: DORNASE ALFA INH SOLN 1 MG/ML 2.5 ML AMP 2.5 MG INHALATION (09:09)
--- NOTE | 2021-04-20 11:27 | PCNFU ---
Nutrition Follow-Up Complete: Increased protein needs as related to wounds as evidenced by Pressure Ulcers. Goal: Meet estimated nutritional needs patient is progressing towards goal. We will continue current goal. Pt current nutrition is Vital AF 1.2 at 60 ml/hr over 22 hours. Last recorded weight is 72.3 kg-stable Bowel Motility:+BM reported 04/21 Labs Reviewed:PO4 1.7,K 2.7,BUN 31, Cr 0.6,Glu 194 Meds Noted:Precedex,Lantus, NovoLog, Keppra, Protonix, KCL powder, Vancomycin Skin: right buttock-Stage 2 PU, Left heel-Deep Tissue Additional Notes: Patient remains on mechanical vent and tube feedings of Vital AF 1.2 at 60 ml/hr over 22hours. Plans to decreased sedation and try extubating. Current tube feeding is providing 1584 kcals/99 gm protein/1071 ml water. Free water flush 50 ml q 4 hours. Meeting caloric needs. Agree with diet orders. Folling in ICU rounds. Reassessing every Friday and Friday.
[2021-04-20] MEDS: dexmedeTOMIDine 400 MCG/100 ML 400 MCG/100 ML BAG IV CONT (12:33)
--- NOTE | 2021-04-20 12:40 | WPDINTPN ---
Progress Note: A&P Assessment and Plan (1) Septic shock: Code(s): A41.9 - Sepsis, unspecified organism; R65.21 - Severe sepsis with septic shock Status: Acute Assessment and Plan: Elevated lactic acid, leukocytosis, pneumonia Patient was adequately fluid-resuscitated upon admission OFF LEVOPHED WBC count trending down Continue Zosyn vancomycin, and levofloxacin -04/15/2021: Blood cultures negative x2 so far -04/15/2019 to urine cultures growing Pseudomonas -04/15/2021 sputum cultures Pseudomonas (2) Acute respiratory failure: Qualifiers: Respiratory failure complication: unspecified whether with hypoxia or hypercapnia Qualified Code(s): J96.00 - Acute respiratory failure, unspecified whether with hypoxia or hypercapnia Code(s): J96.00 - Acute respiratory failure, unspecified whether with hypoxia or hypercapnia Status: Acute Assessment and Plan: Pt presented [facility] with AMS and hypoxia. Pt was intubated in the ED on 04/15/2021 Likely due to bilateral pneumonia as seen on CT chest -chest x-ray this morning shows There is moderate amount of left-sided, small to moderate amount of right-sided ill-defined pneumonia and/or edema. There are no sizable pleural effusions. There is no pneumothorax suspected. Currently on CMV mode, PEEP of 8 and 25% FIO2, Will wean fentanyl and Versed to off and continue Precedex infusion When pt wakes up will place on SBT continue bronchodilators -04/16/2021, venous Dopplers of lower extremities were negative for DVT - Will give bumex 1 mg Iv x1 AGAIN (3) Pneumonia: Qualifiers: Laterality: unspecified laterality Lung location: unspecified part of lung Pneumonia type: due to unspecified organism Qualified Code(s): J18.9 - Pneumonia, unspecified organism Code(s): J18.9 - Pneumonia, unspecified organism Status: Acute Assessment and Plan: 04/15/2021 Sputum culture : Pseudomonas and Staph aureus pneumonia, continue Zosyn, vancomycin and Levaquin (4) Seizure: Code(s): R56.9 - Unspecified convulsions Status: Acute Assessment and Plan: H/o Sz continue keppra and toprimate (5) Insulin dependent type 2 diabetes mellitus: Code(s): E11.9 - Type 2 diabetes mellitus without complications; Z79.4 - rn long term care (current) use of insulin Status: Acute Assessment and Plan: Continue high dose SSI and acccucheks -hyperglycemia better, now off stress dose steroids. Will decrease Lantus and monitor (6) Encephalopathy acute: Code(s): G93.40 - Encephalopathy, unspecified Status: Acute Assessment and Plan: AMS on admission, could be related sepsis, acidosis, hypoxia, pna, UTI -CT brain reviewed, no new intracranial mass lesions were intracranial hemorrhage interval new mass effect, no subdural or epidural hematoma (7) Urinary tract infection: Code(s): N39.0 - Urinary tract infection, site not specified Status: Acute Assessment and Plan: 04/15/2021 urine cultures growing Pseudomonas, continue ABX as above (8) Brain tumor: Code(s): D49.6 - Neoplasm of unspecified behavior of brain Status: Acute Assessment and Plan: CT brain 04/15/2021: Status post right frontal craniotomy with large right frontal lobe resection. Left vertebral artery and prominent bilateral carotid siphon internal carotid artery calcifications. Again noted is a large infiltrative partially calcified mass in the right frontal parietal area, with right insular and basal ganglia and thalamic involvement in addition to left medial frontal lobe extension. 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 This appears relatively stable since 03/07/2021. There is diminished attenuation of the cerebral white matter particularly in the frontal areas, likely due to postradiation change. No new intracranial mass lesion or intracranial hemorrhage, or interval new mass effect
[2021-04-20 12:51] LABS: Glucose Point of Care 209 mg/dl (65-105)
[2021-04-20 18:24] LABS: Glucose Point of Care 131 mg/dl (65-105)
[2021-04-20 18:39] LABS: Vancomycin Trough 12.9 ug/mL (10.0-20.0)
[2021-04-20 21:21] LABS: Haptoglobin 282 mg/dL (43-212)
[2021-04-20] MEDS: INSULIN GLARGINE (*BKC) 100 UNITS/ML 50 UNITS SUB-Q (21:36)
[2021-04-20 23:19] LABS: Glucose Point of Care 156 mg/dl (65-105)
[2021-04-21] VITALS (33 sets, daily range): BP systolic 95–153; BP diastolic 31–72; PULSE 84–117; RESP 30–37; TEMP 37.3–37.8; O2SAT 97–100
--- NOTE | 2021-04-21 00:02 | PC.NURSE ---
precedex rate decreased due to BP 98/37
[2021-04-21] MEDS: PIPERACILLIN/TAZOBACTAM SOD 4.5 GM in SODIUM CHLORIDE 0.9% IV 100 ML 200 ML IVPB ×4 (00:11→17:51)
[2021-04-21 00:37] LABS: Glucose Point of Care 177 mg/dl (65-105)
[2021-04-21] MEDS: IPRATROPIUM BR 0.02% INH SOLN 0.5 MG/2.5 ML VIAL INHALATION ×4 (01:53→19:52)
[2021-04-21] MEDS: LEVALBUTEROL NEB 1.25 MG/3 ML 0.63 MG INHALATION ×4 (01:53→19:52)
[2021-04-21 04:10] LABS: Alveolar/Arterial O2 Gradient 87.8 mmHg; Base Excess ABG -1.5 mEq/l (+/-2.0); Carboxyhemoglobin 0.3 % THb (0-2.0); Fractional Inspired Oxygen 30 %; HCO3 ABG 21.7 mEq/l (22.0-26.0); Methemoglobin ABG 0.3 %THb (0-1.5); Oxygen Content ABG 15.7 %vol (16.0-22.0); Oxygen Saturation ABG 97.3 % (95.0-100.0); Oxyhemoglobin 95.8 % THb (90.0-100.0); PCO2 ABG 31.5 mmHg (35.0-45.0); PO2 ABG 89.1 mmHg (80.0-100.0); PO2 FiO2 Ratio Arterial Blood 2.97 %; Reduced Hemoglobin 3.6 %THb (0-5.0); Total Hemoglobin 11.6 g/dL (12.0-18.0); pH ABG 7.456 (7.350-7.450)
[2021-04-21 04:11] LABS: Arterial Blood Gas PEEP 8 cmH2O; Arterial Blood Gas Tidal Volume 350 ml; Arterial Blood Gas Vent Mode CMV; Arterial Blood Gas Ventilator rate 22 /MIN; Device VENTILATOR; Modified Allen's Test Pass; Site Drawn LEFT RADIAL
[2021-04-21] MEDS: CENTRAL LINE FLUSH 10 ML IV PUSH ×3 (05:09→21:01)
[2021-04-21] MEDS: dexmedeTOMIDine 400 MCG/100 ML 400 MCG/100 ML BAG 6.68 MCG IV CONT (05:09)
[2021-04-21 05:26] LABS: Basophils Percent Auto 0.2 % (0.2-1.2); Eosinophils Absolute Auto 1.1 K/mm3 (0-0.3); Eosinophils Percent Auto 6.5 % (0-4.4); Hemoglobin 7.4 g/dL (12.0-15.0); Immature Granulocyte Absolute 0.55 K/mm3 (0.00-0.031); Immature Granulocyte Percent A 3.3 % (0-0.5); Lymphocytes Absolute Auto 2.51 K/mm3 (0.9-3.2); Lymphocytes Percent Auto 14.9 % (18.3-44.2); Mean Corpuscular HGB Conc 29.6 g/dl (32-36); Mean Corpuscular Hemoglobin 25.3 pg (26-34); Mean Corpuscular Volume 85.3 fl (80-100); Mean Platelet Volume 9.9 fl (7.4-10.4); Monocytes Absolute Auto 0.6 K/mm3 (0.1-0.6); Monocytes Percent Auto 3.6 % (2.6-8.5); Neutrophils Absolute Auto 12.1 K/mm3 (1.3-6.7); Neutrophils Percent Auto 71.5 % (45.5-73.1); Nucleated Red Blood Cells Absolute Auto 0.1 K/mm3 (0.0-0.012); Nucleated Red Blood Cells Perc 0.4 % (0.0-0.2); Platelet Count Result 271 k/mm3 (150-375); Red Blood Count 2.93 M/mm3 (4.2-5.4); Red Cell Distribution Width 21.2 % (11.5-14.5); White Blood Count 16.9 K/mm3 (4.5-10.0)
[2021-04-21 05:42] LABS: Glucose Point of Care 180 mg/dl (65-105)
[2021-04-21 05:57] LABS: Alanine Aminotransferase 16 U/L (4-35); Albumin Level 2.7 g/dL (3.5-5.1); Alkaline Phosphatase 70 U/L (38-126); Anion Gap 4 mmol/L (8-16); Aspartate Amino Transferase 16 U/L (14-36); Bilirubin,Total 0.2 mg/dL (0.2-1.3); Blood Urea Nitrogen 19 mg/dL (7-17); Calcium 7.9 mg/dL (8.4-10.2); Carbon Dioxide 24 mmol/L (22-30); Chloride 113 mmol/L (98-107); Estimated CRCL calculation 72 ml/min; Estimated Glomerular Filt Rate > 60; Glucose 183 mg/dL (65-110); Potassium 2.6 mmol/L (3.4-5.0); Sodium 141 mmol/L (137-145)
[2021-04-21] MEDS: KCL 40 MEQ/WATER 100 ML 100 ML 25 ML IVPB ×2 (06:57→08:49)
[2021-04-21 07:21] LABS: Glucose Point of Care 154 mg/dl (65-105)
[2021-04-21] MEDS: DORNASE ALFA INH SOLN 1 MG/ML 2.5 ML AMP 2.5 MG INHALATION ×2 (08:28→19:52)
[2021-04-21] MEDS: SACCHAROMYCES BOULARDII 250 MG CAPSULE FEED TUBE ×2 (08:46→16:18)
[2021-04-21] MEDS: levETIRAcetam ORAL SOL 500 MG/5 ML UDC FEED TUBE ×2 (08:46→21:00)
[2021-04-21] MEDS: TOPIRAMATE 100 MG TABLET XX (08:47)
[2021-04-21] MEDS: POTASSIUM CHLORIDE 20 MEQ PACKET (FOR LIQUID) 40 MEQ FEED TUBE ×2 (08:47→16:18)
[2021-04-21] MEDS: PANTOPRAZOLE SODIUM IV 40 MG VIAL IV PUSH ×2 (08:47→21:01)
[2021-04-21] MEDS: MINERAL OIL/WHITE PETROLATUM OINTMENT 1 APPLIC EACH EYE ×2 (08:47→21:00)
[2021-04-21] MEDS: POTASSIUM/PHOSPHORUS/SODIUM 1.5 GM PACKET 1 PACKET PO (08:49)
[2021-04-21] MEDS: MAGNESIUM SULF 2 GM/WATER 50ML 2 GM/50 ML BAG IVPB (08:52)
[2021-04-21] MEDS: BUMETANIDE INJ 1 MG/4 ML VIAL IV PUSH (08:52)
[2021-04-21] MEDS: INSULIN GLARGINE (*BKC) 100 UNITS/ML 40 UNITS SUB-Q (08:52)
[2021-04-21 12:37] LABS: Glucose Point of Care 185 mg/dl (65-105)
--- NOTE | 2021-04-21 13:08 | WPDNEUROPN ---
Subjective Date/time seen: 04/21/21 13:08 family has contacted the ICU they want the patient off the topiramate but continue the [facility] neurological status remains unchanged with no significant worsening or improvement will fulfill the family's desire and continue the treatment as such Objective Data Vital Signs Vital Signs: Vital Signs - 24 hr 04/20/21 14:00 04/20/21 15:31 04/20/21 15:33 Temperature 36.8 C Pulse Rate 105 H 115 H 118 H Respiratory Rate 30 H 39 H Blood Pressure 139/56 L Pulse Oximetry 100 96 04/20/21 15:35 04/20/21 16:00 04/20/21 17:51 Temperature 37.8 C H Pulse Rate 118 H 123 H 122 H Respiratory Rate 44 H 41 H Blood Pressure 138/51 L Pulse Oximetry 99 92 04/20/21 18:00 04/20/21 19:33 04/20/21 20:00 Temperature Pulse Rate 125 H 103 H 102 H Respiratory Rate 37 H 37 H Blood Pressure 116/46 L Pulse Oximetry 96 04/20/21 20:01 04/20/21 20:02 04/20/21 20:16 Temperature Pulse Rate 104 H 104 H 100 Respiratory Rate 35 H 35 H 33 H Blood Pressure Pulse Oximetry 04/20/21 20:17 04/20/21 20:36 04/20/21 21:30 Temperature 37.7 C H Pulse Rate 100 103 H 105 H Respiratory Rate 30 H 39 H Blood Pressure 112/52 L Pulse Oximetry 100 99 04/20/21 22:00 04/20/21 22:42 04/20/21 23:08 Temperature 37.7 C H Pulse Rate 96 94 95 Respiratory Rate 38 H 37 H Blood Pressure 118/55 L Pulse Oximetry 100 98 04/21/21 00:00 04/21/21 00:02 04/21/21 01:19 Temperature 37.7 C H Pulse Rate 86 87 84 Respiratory Rate 33 H 35 H 31 H Blood Pressure 98/37 L Pulse Oximetry 99 04/21/21 01:54 04/21/21 01:55 04/21/21 02:04 Temperature Pulse Rate 86 96 87 Respiratory Rate 33 H 30 H Blood Pressure Pulse Oximetry 100 04/21/21 02:30 04/21/21 04:00 04/21/21 04:54 Temperature 37.6 C Pulse Rate 94 88 88 Respiratory Rate 30 H Blood Pressure 110/49 L Pulse Oximetry 100 100 04/21/21 05:00 04/21/21 05:09 04/21/21 05:20 Temperature 37.6 C Pulse Rate 91 85 86 Respiratory Rate 34 H 31 H 32 H Blood Pressure 108/40 L Pulse Oximetry 98 100 04/21/21 06:44 04/21/21 08:00 04/21/21 08:31 Temperature 37.5 C 37.5 C Pulse Rate 89 85 85 Respiratory Rate 34 H 33 H Blood Pressure 111/53 L 115/31 L Pulse Oximetry 99 100 100 04/21/21 08:33 04/21/21 10:00 04/21/21 11:25 Temperature 37.4 C Pulse Rate 86 96 99 Respiratory Rate 32 H 36 H Blood Pressure 95/35 L Pulse Oximetry 100 100 Intake/Output Intake/Output: Intake & Output 04/18/21 04/19/21 04/20/21 04/21/21 23:59 23:59 23:59 23:59 Intake Total 2683.7 3056.3 3032 1164 Output Total 1900 2210 5902 900 Balance 783.7 846.3 -2870 264 Meds/Results Medications: Active Medications Generic Name Dose Route Start Last Admin Trade Name Freq PRN Reason Stop Dose Admin Acetaminophen 650 mg 04/15/21 10:26 04/15/21 17:27 Acetaminophen 325 Mg Tablet PO 650 mg Q4H PRN Administration Mild Pain (1-3) or Fever Dextrose 12.5 gm 04/15/21 20:13 Dextrose 50% 25 Gm/50 Ml Syringe IV PUSH PRN PRN Hypoglycemia Protocol Dornase Miguel 2.5 mg 04/18/21 10:10 04/21/21 08:28 Dornase Miguel Inh Soln 1 Mg/Ml 2.5 Ml Amp INHALATION 2.5 mg Q12HRT BRYCE Administration Glucagon 1 mg 04/15/21 20:13 Glucagon For Inj 1 Mg Vial IM PRN PRN Hypoglycemia Protocol Piperacillin Sod/Tazobactam 100 mls @ 200 mls/hr 04/15/21 18:00 04/21/21 11:48 Sod 4.5 gm/ Sodium Chloride IVPB 200 mls/hr Q6HR BRYCE Administration Dextrose 1,000 mls @ 100 mls/hr 04/15/21 20:13 Dextrose 5% 1,000 Ml IVPB PRN PRN Hypoglycemia Protocol Levofloxacin/Dextrose 750 mg in 150 mls @ 100 mls/hr 04/16/21 12:00 04/21/21 11:47 Levaquin 750 Mg/D5w 150 Ml IVPB 100 mls/hr Q24H BRYCE Administration Vancomycin HCl 1,000 mg in 250 mls @ 250 mls/hr 04/18/21 12:00 04/21/21 12:17 Vancomycin 1,000 Mg/D5w 250 Ml IVPB 250 mls/hr Q18H BRYCE
[2021-04-21 18:43] LABS: Glucose Point of Care 175 mg/dl (65-105)
[2021-04-21] MEDS: INSULIN GLARGINE (*BKC) 100 UNITS/ML 50 UNITS SUB-Q (21:06)
[2021-04-21 21:10] LABS: Glucose Point of Care 141 mg/dl (65-105)
[2021-04-22] VITALS (27 sets, daily range): BP systolic 136–158; BP diastolic 53–75; PULSE 98–113; RESP 17–83; TEMP 37.3–37.7; O2SAT 96–100
[2021-04-22] MEDS: PIPERACILLIN/TAZOBACTAM SOD 4.5 GM in SODIUM CHLORIDE 0.9% IV 100 ML 200 ML IVPB ×5 (00:40→23:18)
[2021-04-22 00:44] LABS: Glucose Point of Care 181 mg/dl (65-105)
[2021-04-22] MEDS: LEVALBUTEROL NEB 1.25 MG/3 ML 0.63 MG INHALATION ×4 (01:50→20:06)
[2021-04-22] MEDS: IPRATROPIUM BR 0.02% INH SOLN 0.5 MG/2.5 ML VIAL INHALATION ×4 (01:50→20:07)
[2021-04-22 04:45] LABS: Alveolar/Arterial O2 Gradient 84.4 mmHg; Carboxyhemoglobin 0.3 % THb (0-2.0); Fractional Inspired Oxygen 30 %; Methemoglobin ABG 0.4 %THb (0-1.5); Oxygen Content ABG 11.8 %vol (16.0-22.0); Oxygen Saturation ABG 97.8 % (95.0-100.0); Oxyhemoglobin 96.1 % THb (90.0-100.0); PCO2 ABG 28.3 mmHg (35.0-45.0); PO2 ABG 96.3 mmHg (80.0-100.0); PO2 FiO2 Ratio Arterial Blood 3.21 %; Reduced Hemoglobin 3.2 %THb (0-5.0); Total Hemoglobin 8.6 g/dL (12.0-18.0); pH ABG 7.468 (7.350-7.450)
[2021-04-22] MEDS: CENTRAL LINE FLUSH 10 ML IV PUSH ×3 (04:58→21:08)
[2021-04-22 05:00] LABS: Arterial Blood Gas PEEP 8 cmH2O; Arterial Blood Gas Tidal Volume 350 ml; Arterial Blood Gas Vent Mode CMV; Arterial Blood Gas Ventilator rate 22 /MIN; Device VENTILATOR; Modified Allen's Test Unable to perform; Site Drawn RIGHT RADIAL
[2021-04-22 05:00] LABS: Glucose Point of Care 142 mg/dl (65-105)
[2021-04-22 05:10] LABS: Basophils Absolute Auto 0.1 K/mm3 (0.0-0.1); Basophils Percent Auto 0.4 % (0.2-1.2); Eosinophils Absolute Auto 1.3 K/mm3 (0-0.3); Eosinophils Percent Auto 8.3 % (0-4.4); Hemoglobin 8.2 g/dL (12.0-15.0); Immature Granulocyte Absolute 0.67 K/mm3 (0.00-0.031); Immature Granulocyte Percent A 4.2 % (0-0.5); Lymphocytes Percent Auto 17.1 % (18.3-44.2); Mean Corpuscular HGB Conc 30.4 g/dl (32-36); Mean Corpuscular Hemoglobin 26.1 pg (26-34); Mean Platelet Volume 9.2 fl (7.4-10.4); Monocytes Absolute Auto 0.7 K/mm3 (0.1-0.6); Monocytes Percent Auto 4.3 % (2.6-8.5); Neutrophils Absolute Auto 10.4 K/mm3 (1.3-6.7); Neutrophils Percent Auto 65.7 % (45.5-73.1); Nucleated Red Blood Cells Perc 0.3 % (0.0-0.2); Platelet Count Result 273 k/mm3 (150-375); Red Blood Count 3.14 M/mm3 (4.2-5.4); Red Cell Distribution Width 21.7 % (11.5-14.5); White Blood Count 15.8 K/mm3 (4.5-10.0)
[2021-04-22 05:25] LABS: Alanine Aminotransferase 17 U/L (4-35); Alkaline Phosphatase 80 U/L (38-126); Anion Gap 3 mmol/L (8-16); Aspartate Amino Transferase 21 U/L (14-36); Bilirubin,Total 0.2 mg/dL (0.2-1.3); Blood Urea Nitrogen 16 mg/dL (7-17); Calcium 8.2 mg/dL (8.4-10.2); Carbon Dioxide 24 mmol/L (22-30); Chloride 111 mmol/L (98-107); Estimated CRCL calculation 83 ml/min; Estimated Glomerular Filt Rate > 60; Glucose 153 mg/dL (65-110); Potassium 3.5 mmol/L (3.4-5.0); Sodium 138 mmol/L (137-145)
[2021-04-22 05:37] LABS: Magnesium 2.1 mg/dL (1.6-2.3); Phosphorus 2.6 mg/dL (2.5-4.5)
[2021-04-22] MEDS: DORNASE ALFA INH SOLN 1 MG/ML 2.5 ML AMP 2.5 MG INHALATION ×2 (07:57→20:07)
[2021-04-22] MEDS: INSULIN GLARGINE (*BKC) 100 UNITS/ML 40 UNITS SUB-Q (08:59)
[2021-04-22] MEDS: ASCORBIC ACID 500 MG TABLET FEED TUBE (08:59)
[2021-04-22] MEDS: levETIRAcetam ORAL SOL 500 MG/5 ML UDC FEED TUBE ×2 (09:01→21:08)
[2021-04-22] MEDS: PANTOPRAZOLE SODIUM IV 40 MG VIAL IV PUSH ×2 (09:01→21:08)
[2021-04-22] MEDS: POTASSIUM CHLORIDE 20 MEQ PACKET (FOR LIQUID) 40 MEQ FEED TUBE ×2 (09:01→16:04)
[2021-04-22] MEDS: MINERAL OIL/WHITE PETROLATUM OINTMENT 1 APPLIC EACH EYE ×2 (09:01→21:08)
[2021-04-22] MEDS: SACCHAROMYCES BOULARDII 250 MG CAPSULE FEED TUBE ×2 (09:02→16:04)
[2021-04-22 11:29] LABS: Glucose Point of Care 181 mg/dl (65-105)
[2021-04-22 11:29] LABS: Glucose Point of Care 177 mg/dl (65-105)
--- NOTE | 2021-04-22 13:21 | WPDINTPN ---
Progress Note: A&P Assessment and Plan (1) Septic shock: Code(s): A41.9 - Sepsis, unspecified organism; R65.21 - Severe sepsis with septic shock Status: Acute Assessment and Plan: Elevated lactic acid, leukocytosis, pneumonia Patient was adequately fluid-resuscitated upon admission OFF LEVOPHED WBC count trending down Continue Zosyn vancomycin, (04/15/2021) levofloxacin (04/16/2021) -04/15/2021: Blood cultures negative x2 so far -04/15/2019 to urine cultures growing Pseudomonas -04/15/2021 sputum cultures Pseudomonas and Staph aureus (2) Acute respiratory failure: Qualifiers: Respiratory failure complication: unspecified whether with hypoxia or hypercapnia Qualified Code(s): J96.00 - Acute respiratory failure, unspecified whether with hypoxia or hypercapnia Code(s): J96.00 - Acute respiratory failure, unspecified whether with hypoxia or hypercapnia Status: Acute Assessment and Plan: [facility] with AMS and hypoxia. Pt was intubated in the ED on 04/15/2021 Likely due to bilateral pneumonia as seen on CT chest -chest x-ray and ABGs reviewed Currently on CMV mode, PEEP of 8 and 25% FIO2, will place patient on ASV mode today on 04/22/2021 Patient is off all sedation, sometimes opens her eyes but does not follow any commands continue bronchodilators -04/16/2021, venous Dopplers of lower extremities were negative for DVT (3) Pneumonia: Qualifiers: Laterality: unspecified laterality Lung location: unspecified part of lung Pneumonia type: due to unspecified organism Qualified Code(s): J18.9 - Pneumonia, unspecified organism Code(s): J18.9 - Pneumonia, unspecified organism Status: Acute Assessment and Plan: 04/15/2021 Sputum culture : Pseudomonas and Staph aureus pneumonia, continue Zosyn, vancomycin and Levaquin (4) Seizure: Code(s): R56.9 - Unspecified convulsions Status: Acute Assessment and Plan: H/o Sz continue keppra -appreciate neurology following the patient, Topamax was discontinued on request of the family (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 Continue Lantus (6) Encephalopathy acute: Code(s): G93.40 - Encephalopathy, unspecified Status: Acute Assessment and Plan: AMS on admission, could be related sepsis, acidosis, hypoxia, pna, UTI -CT brain reviewed, no new intracranial mass lesions were intracranial hemorrhage interval new mass effect, no subdural or epidural hematoma (7) Urinary tract infection: Code(s): N39.0 - Urinary tract infection, site not specified Status: Acute Assessment and Plan: 04/15/2021 urine cultures growing Pseudomonas, continue ABX as above (8) Brain tumor: Code(s): D49.6 - Neoplasm of unspecified behavior of brain Status: Acute Assessment and Plan: CT brain 04/15/2021: Status post right frontal craniotomy with large right frontal lobe resection. Left vertebral artery and prominent bilateral carotid siphon internal carotid artery calcifications. Again noted is a large infiltrative partially calcified mass in the right frontal parietal area, with right insular and basal ganglia and thalamic involvement in addition to left medial frontal lobe extension. 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 This appears relatively stable since 03/07/2021. There is diminished attenuation of the cerebral white matter particularly in the frontal areas, likely due to postradiation change. No new intracranial mass lesion or intracranial hemorrhage, or interval new mass effect is evident. No subdural or epidural hematoma. Moderate central and cortical cerebral atroph
[2021-04-22 17:52] LABS: Glucose Point of Care 166 mg/dl (65-105)
[2021-04-22 21:01] LABS: Glucose Point of Care 154 mg/dl (65-105)
[2021-04-22] MEDS: INSULIN GLARGINE (*BKC) 100 UNITS/ML 50 UNITS SUB-Q (21:08)
[2021-04-22 23:34] LABS: Glucose Point of Care 164 mg/dl (65-105)
[2021-04-23] VITALS (27 sets, daily range): BP systolic 118–176; BP diastolic 53–148; PULSE 74–110; RESP 19–28; TEMP 37.3–37.7; O2SAT 97–100
[2021-04-23] MEDS: LEVALBUTEROL NEB 1.25 MG/3 ML 0.63 MG INHALATION ×4 (02:16→21:04)
[2021-04-23] MEDS: IPRATROPIUM BR 0.02% INH SOLN 0.5 MG/2.5 ML VIAL INHALATION ×4 (02:16→21:05)
[2021-04-23 04:39] LABS: Basophils Absolute Auto 0.1 K/mm3 (0.0-0.1); Basophils Percent Auto 0.5 % (0.2-1.2); Eosinophils Absolute Auto 1.1 K/mm3 (0-0.3); Eosinophils Percent Auto 6.3 % (0-4.4); Hematocrit 30.4 % (37.0-47.0); Hemoglobin 9.1 g/dL (12.0-15.0); Immature Granulocyte Absolute 0.78 K/mm3 (0.00-0.031); Immature Granulocyte Percent A 4.4 % (0-0.5); Lymphocytes Absolute Auto 2.83 K/mm3 (0.9-3.2); Mean Corpuscular HGB Conc 29.9 g/dl (32-36); Mean Corpuscular Hemoglobin 25.1 pg (26-34); Monocytes Absolute Auto 0.7 K/mm3 (0.1-0.6); Neutrophils Absolute Auto 12.2 K/mm3 (1.3-6.7); Neutrophils Percent Auto 68.8 % (45.5-73.1); Nucleated Red Blood Cells Perc 0.1 % (0.0-0.2); Platelet Count Result 376 k/mm3 (150-375); Red Blood Count 3.62 M/mm3 (4.2-5.4); Red Cell Distribution Width 21.8 % (11.5-14.5); White Blood Count 17.7 K/mm3 (4.5-10.0)
[2021-04-23 04:53] LABS: Alanine Aminotransferase 21 U/L (4-35); Albumin Level 3.3 g/dL (3.5-5.1); Alkaline Phosphatase 92 U/L (38-126); Anion Gap 6 mmol/L (8-16); Aspartate Amino Transferase 25 U/L (14-36); Bilirubin,Total < 0.1 mg/dL (0.2-1.3); Blood Urea Nitrogen 15 mg/dL (7-17); Calcium 8.8 mg/dL (8.4-10.2); Carbon Dioxide 20 mmol/L (22-30); Chloride 110 mmol/L (98-107); Estimated CRCL calculation 70 ml/min; Estimated Glomerular Filt Rate > 60; Glucose 195 mg/dL (65-110); Phosphorus 3.1 mg/dL (2.5-4.5); Potassium 3.6 mmol/L (3.4-5.0); Sodium 136 mmol/L (137-145)
[2021-04-23 05:33] LABS: Alveolar/Arterial O2 Gradient 87.2 mmHg; Base Excess ABG -3.2 mEq/l (+/-2.0); Carboxyhemoglobin 0.3 % THb (0-2.0); Fractional Inspired Oxygen 30 %; HCO3 ABG 19.8 mEq/l (22.0-26.0); Oxygen Content ABG 12.5 %vol (16.0-22.0); Oxygen Saturation ABG 97.6 % (95.0-100.0); Oxyhemoglobin 96.3 % THb (90.0-100.0); PCO2 ABG 28.4 mmHg (35.0-45.0); PO2 ABG 93.3 mmHg (80.0-100.0); PO2 FiO2 Ratio Arterial Blood 3.11 %; Reduced Hemoglobin 3.4 %THb (0-5.0); Total Hemoglobin 9.1 g/dL (12.0-18.0); pH ABG 7.462 (7.350-7.450)
[2021-04-23 05:35] LABS: Arterial Blood Gas PEEP 5 cmH2O; Arterial Blood Gas Vent Mode ASV; Device VENTILATOR; Modified Allen's Test Unable to perform
[2021-04-23 05:36] LABS: Site Drawn LEFT RADIAL
[2021-04-23] MEDS: PIPERACILLIN/TAZOBACTAM SOD 4.5 GM in SODIUM CHLORIDE 0.9% IV 100 ML 200 ML IVPB ×3 (06:11→18:09)
[2021-04-23] MEDS: CENTRAL LINE FLUSH 10 ML IV PUSH ×3 (06:11→20:32)
[2021-04-23] MEDS: DORNASE ALFA INH SOLN 1 MG/ML 2.5 ML AMP 2.5 MG INHALATION ×2 (07:45→21:05)
[2021-04-23] MEDS: INSULIN GLARGINE (*BKC) 100 UNITS/ML 40 UNITS SUB-Q (09:07)
[2021-04-23] MEDS: PANTOPRAZOLE SODIUM IV 40 MG VIAL IV PUSH ×2 (09:20→20:32)
[2021-04-23] MEDS: ASCORBIC ACID 500 MG TABLET FEED TUBE (09:20)
[2021-04-23] MEDS: polyethylene glycoL 3350 17 GM POWD.PACK PO (09:20)
[2021-04-23] MEDS: SACCHAROMYCES BOULARDII 250 MG CAPSULE FEED TUBE ×2 (09:20→16:25)
[2021-04-23] MEDS: POTASSIUM CHLORIDE 20 MEQ PACKET (FOR LIQUID) 40 MEQ FEED TUBE ×2 (09:20→09:21)
[2021-04-23] MEDS: levETIRAcetam ORAL SOL 500 MG/5 ML UDC FEED TUBE ×2 (09:20→20:32)
[2021-04-23] MEDS: MINERAL OIL/WHITE PETROLATUM OINTMENT 1 APPLIC EACH EYE ×2 (09:22→20:31)
--- NOTE | 2021-04-23 11:13 | PCFNICU ---
ICU Rounding Note: Pt current nutrition is Vital AF 1.2 at 60 ml/hr over 22 hours. Last recorded weight is 65.1-stable Bowel Motility:FMS Labs Reviewed:Glu 195, Cr 0.5,Na 136, Alb 3.3,Hct 30.4,Hgb 9.1 Meds Noted: KCL powder, Lantus, Vit C, Keppra, Protonix, Miralax, Florastor Skin:right buttock-Stage IV, Left heel-Deep Tissue. Additional Notes: Patient remains on mechanical vent and tube feedings of Vital AF 1.2 at 60 ml/hr over 22 hours. Free water flush 50 ml q 4 hours. Protein Modular of Robbie BID via tube for wound healing. Spoke with nursing today, tolerating tube feedings. Agree with diet orders. Following daily in ICU rounds. Will monitor every Friday and Friday.
[2021-04-23 12:13] LABS: Glucose Point of Care 165 mg/dl (65-105)
[2021-04-23 12:13] LABS: Glucose Point of Care 183 mg/dl (65-105)
--- NOTE | 2021-04-23 13:12 | WPDINTPN ---
Progress Note: A&P Assessment and Plan (1) Septic shock: Code(s): A41.9 - Sepsis, unspecified organism; R65.21 - Severe sepsis with septic shock Status: Acute Assessment and Plan: Elevated lactic acid, leukocytosis, pneumonia Patient was adequately fluid-resuscitated upon admission OFF LEVOPHED now WBC count trending down but still elevated Patient was started on Zosyn vancomycin (04/15/2021) levofloxacin (04/16/2021). I will discontinue vancomycin and levofloxacin and continue Zosyn for now -04/15/2021: Blood cultures negative x2 so far -04/15/2019 to urine cultures growing pansensitive Pseudomonas -04/15/2021 sputum cultures pansensitive Pseudomonas and MSSA (2) Acute respiratory failure: Qualifiers: Respiratory failure complication: unspecified whether with hypoxia or hypercapnia Qualified Code(s): J96.00 - Acute respiratory failure, unspecified whether with hypoxia or hypercapnia Code(s): J96.00 - Acute respiratory failure, unspecified whether with hypoxia or hypercapnia Status: Acute Assessment and Plan: [facility] and [facility]. Pt was intubated in the ED on 04/15/2021 Likely due to bilateral pneumonia as seen on CT chest -chest x-ray and ABGs reviewed Currently in ASV mode. I have placed patient on pressure support ventilation 5 will continue as tolerated. Patient is off all sedation, sometimes opens her eyes but does not follow any commands. Her extubation will depend on mental status and ability to protect airway continue bronchodilators 04/16/2021, venous Dopplers of lower extremities were negative for DVT (3) Pneumonia: Qualifiers: Laterality: unspecified laterality Lung location: unspecified part of lung Pneumonia type: due to unspecified organism Qualified Code(s): J18.9 - Pneumonia, unspecified organism Code(s): J18.9 - Pneumonia, unspecified organism Status: Acute Assessment and Plan: 04/15/2021 Sputum culture : Pseudomonas and Staph aureus pneumonia, continue Zosyn (4) Seizure: Code(s): R56.9 - Unspecified convulsions Status: Acute Assessment and Plan: H/o Sz continue keppra -appreciate neurology following the patient, Topamax was discontinued on request of the family (5) Insulin dependent type 2 diabetes mellitus: Code(s): E11.9 - Type 2 diabetes mellitus without complications; Z79.4 - halfway (current) use of insulin Status: Acute Assessment and Plan: Continue high dose SSI and acccucheks -hyperglycemia better, now off stress dose steroids. Continue Lantus (6) Encephalopathy acute: Code(s): G93.40 - Encephalopathy, unspecified Status: Acute Assessment and Plan: AMS on admission, could be related sepsis, acidosis, hypoxia, pna, UTI -CT brain reviewed, no new intracranial mass lesions were intracranial hemorrhage interval new mass effect, no subdural or epidural hematoma (7) Urinary tract infection: Code(s): N39.0 - Urinary tract infection, site not specified Status: Acute Assessment and Plan: 04/15/2021 urine cultures growing Pseudomonas, continue ABX as above (8) Brain tumor: Code(s): D49.6 - Neoplasm of unspecified behavior of brain Status: Acute Assessment and Plan: CT brain 04/15/2021: Status post right frontal craniotomy with large right frontal lobe resection. Left vertebral artery and prominent bilateral carotid siphon internal carotid artery calcifications. Again noted is a large infiltrative partially calcified mass in the right frontal parietal area, with right insular and basal ganglia and thalamic involvement in addition to left medial frontal lobe extension. 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 This appears relatively stable since 03/07/2021. There is diminished attenuation of the cerebral white matter particularly in the frontal areas, likely due to postradiatio
[2021-04-23 16:26] LABS: Glucose Point of Care 164 mg/dl (65-105)
[2021-04-23] MEDS: ENOXAPARIN 40 MG/0.4 ML SYRINGE SUB-Q (18:26)
[2021-04-23 20:09] LABS: Glucose Point of Care 149 mg/dl (65-105)
[2021-04-23] MEDS: INSULIN GLARGINE (*BKC) 100 UNITS/ML 50 UNITS SUB-Q (20:31)
[2021-04-24] VITALS (26 sets, daily range): BP systolic 118–140; BP diastolic 49–70; PULSE 104–120; RESP 18–32; TEMP 37.3–37.5; O2SAT 95–100
[2021-04-24 00:11] LABS: Glucose Point of Care 165 mg/dl (65-105)
[2021-04-24] MEDS: PIPERACILLIN/TAZOBACTAM SOD 4.5 GM in SODIUM CHLORIDE 0.9% IV 100 ML 200 ML IVPB ×4 (01:00→17:25)
[2021-04-24] MEDS: IPRATROPIUM BR 0.02% INH SOLN 0.5 MG/2.5 ML VIAL INHALATION ×4 (01:55→20:07)
[2021-04-24] MEDS: LEVALBUTEROL NEB 1.25 MG/3 ML 0.63 MG INHALATION ×4 (01:55→20:08)
[2021-04-24 02:41] LABS: Vitamin D 1,25 (OH)2 Total 48 pg/mL (18-72); Vitamin D2 1,25 (OH)2 <8 pg/mL; Vitamin D3 1,25 (OH)2 48 pg/mL
[2021-04-24 04:10] LABS: Basophils Absolute Auto 0.2 K/mm3 (0.0-0.1); Basophils Percent Auto 0.7 % (0.2-1.2); Eosinophils Percent Auto 4.1 % (0-4.4); Hematocrit 30.7 % (37.0-47.0); Hemoglobin 8.9 g/dL (12.0-15.0); Immature Granulocyte Absolute 0.94 K/mm3 (0.00-0.031); Immature Granulocyte Percent A 3.8 % (0-0.5); Immature Platelet Fraction Pct 5.2 % (0.9-11.2); Lymphocytes Absolute Auto 2.72 K/mm3 (0.9-3.2); Lymphocytes Percent Auto 11.1 % (18.3-44.2); Mean Corpuscular Hemoglobin 25.5 pg (26-34); Mean Platelet Volume 10.1 fl (7.4-10.4); Monocytes Absolute Auto 0.9 K/mm3 (0.1-0.6); Monocytes Percent Auto 3.5 % (2.6-8.5); Neutrophils Absolute Auto 18.9 K/mm3 (1.3-6.7); Neutrophils Percent Auto 76.8 % (45.5-73.1); Platelet Count Result 335 k/mm3 (150-375); Red Blood Count 3.49 M/mm3 (4.2-5.4); White Blood Count 24.6 K/mm3 (4.5-10.0)
[2021-04-24 04:20] LABS: Alanine Aminotransferase 23 U/L (4-35); Albumin Level 3.5 g/dL (3.5-5.1); Alkaline Phosphatase 90 U/L (38-126); Anion Gap 7 mmol/L (8-16); Aspartate Amino Transferase 23 U/L (14-36); Bilirubin,Total 0.3 mg/dL (0.2-1.3); Blood Urea Nitrogen 21 mg/dL (7-17); Calcium 9.1 mg/dL (8.4-10.2); Carbon Dioxide 22 mmol/L (22-30); Chloride 109 mmol/L (98-107); Estimated CRCL calculation 83 ml/min; Estimated Glomerular Filt Rate > 60; Glucose 153 mg/dL (65-110); Magnesium 1.9 mg/dL (1.6-2.3); Phosphorus 3.8 mg/dL (2.5-4.5); Potassium 3.9 mmol/L (3.4-5.0); Sodium 138 mmol/L (137-145)
[2021-04-24 05:11] LABS: Alveolar/Arterial O2 Gradient 105.6 mmHg; Base Excess ABG -4.5 mEq/l (+/-2.0); Carboxyhemoglobin 0.3 % THb (0-2.0); Fractional Inspired Oxygen 30 %; HCO3 ABG 18.3 mEq/l (22.0-26.0); Methemoglobin ABG 0.2 %THb (0-1.5); Oxygen Content ABG 14.6 %vol (16.0-22.0); Oxygen Saturation ABG 96.1 % (95.0-100.0); Oxyhemoglobin 94.6 % THb (90.0-100.0); PCO2 ABG 26.8 mmHg (35.0-45.0); PO2 ABG 76.8 mmHg (80.0-100.0); PO2 FiO2 Ratio Arterial Blood 2.56 %; Reduced Hemoglobin 4.9 %THb (0-5.0); Total Hemoglobin 10.9 g/dL (12.0-18.0); pH ABG 7.452 (7.350-7.450)
[2021-04-24 05:17] LABS: Modified Allen's Test Unable to perform; Site Drawn LEFT RADIAL
[2021-04-24 05:18] LABS: Device VENTILATOR
[2021-04-24 05:19] LABS: Arterial Blood Gas PEEP 5 cmH2O; Arterial Blood Gas Pressure Support 10 cmH2O; Arterial Blood Gas Vent Mode PRESSURE SUPPORT
[2021-04-24] MEDS: CENTRAL LINE FLUSH 10 ML IV PUSH ×3 (05:51→20:29)
[2021-04-24 08:34] LABS: Glucose Point of Care 155 mg/dl (65-105)
[2021-04-24] MEDS: PANTOPRAZOLE SODIUM IV 40 MG VIAL IV PUSH ×2 (08:43→20:29)
[2021-04-24] MEDS: ASCORBIC ACID 500 MG TABLET FEED TUBE (08:43)
[2021-04-24] MEDS: levETIRAcetam ORAL SOL 500 MG/5 ML UDC FEED TUBE ×2 (08:43→20:28)
[2021-04-24] MEDS: SACCHAROMYCES BOULARDII 250 MG CAPSULE FEED TUBE ×2 (08:43→17:25)
[2021-04-24] MEDS: polyethylene glycoL 3350 17 GM POWD.PACK PO (08:43)
[2021-04-24] MEDS: MINERAL OIL/WHITE PETROLATUM OINTMENT 1 APPLIC EACH EYE (08:43)
[2021-04-24] MEDS: INSULIN GLARGINE (*BKC) 100 UNITS/ML 40 UNITS SUB-Q (08:59)
[2021-04-24] MEDS: ENOXAPARIN 40 MG/0.4 ML SYRINGE SUB-Q (09:02)
[2021-04-24] MEDS: DORNASE ALFA INH SOLN 1 MG/ML 2.5 ML AMP 2.5 MG INHALATION ×2 (10:26→20:08)
[2021-04-24 11:25] LABS: Alveolar/Arterial O2 Gradient 93.4 mmHg; Base Excess ABG -1.2 mEq/l (+/-2.0); Fractional Inspired Oxygen 30 %; Oxygen Content ABG 13.6 %vol (16.0-22.0); Oxygen Saturation ABG 96.9 % (95.0-100.0); Oxyhemoglobin 95.1 % THb (90.0-100.0); PCO2 ABG 31.4 mmHg (35.0-45.0); PO2 ABG 83.6 mmHg (80.0-100.0); PO2 FiO2 Ratio Arterial Blood 2.79 %; Total Hemoglobin 10.1 g/dL (12.0-18.0); pH ABG 7.463 (7.350-7.450)
[2021-04-24 11:26] LABS: Device VENTILATOR; Modified Allen's Test Pass; Site Drawn LEFT RADIAL
[2021-04-24 11:27] LABS: Arterial Blood Gas PEEP 5 cmH2O; Arterial Blood Gas Pressure Support 5 cmH2O; Arterial Blood Gas Vent Mode SPONTANEOUS
--- NOTE | 2021-04-24 11:27 | PCNFU ---
Addendum entered by Justine Bonilla RD, LDN 04/24/21 14:22: Spoke with , new orders for Banatrol Plus q 6 hours for stool bulking. Original Note: Nutrition Follow-Up Complete: Increased protein needs as related to wounds as evidenced by Pressure Ulcers. goal: Meet estimated nutritional needs Patient is progressing towards goal. Pt current nutrition is Vital AF 1.2 at 60 ml/hr. Last recorded weight is 65.1 kg-stable Bowel Motility: FMS Labs Reviewed:Glu 153, Cr 0.4, Hct 30.7,Hgb 8.9 Meds Noted:KCL powder, Lantus, Vit C, Keppra, Protonix, Miralax, Florastor Skin: Stage III-right buttock, unstageable-left heel. Additional Notes: Patient remains on mechanical vent and tube feedings of Vital AF 1.2 at 60 ml/hr over 22 hours. Free water flush 50 ml q 4 hours. Tube feedings are providing 1584 kcals/99 gms protein/1071 ml water. Agree with diet orders. Recommend: Banatrol Plus q 6 hours for stool bulking. Will monitor in ICU rounds and reassessing every Friday and Friday.
--- NOTE | 2021-04-24 13:01 | WPDINTPN ---
Progress Note: A&P Assessment and Plan (1) Septic shock: Code(s): A41.9 - Sepsis, unspecified organism; R65.21 - Severe sepsis with septic shock Status: Acute Assessment and Plan: Elevated lactic acid, leukocytosis, pneumonia Patient was adequately fluid-resuscitated upon admission OFF LEVOPHED now WBC count trending down but still elevated Patient was started on Zosyn vancomycin (04/15/2021) levofloxacin (04/16/2021). 03/26 I have discontinued vancomycin and levofloxacin and continue Zosyn for now -04/15/2021: Blood cultures negative x2 so far -04/15/2019 to urine cultures growing pansensitive Pseudomonas -04/15/2021 sputum cultures pansensitive Pseudomonas and MSSA (2) Acute respiratory failure: Qualifiers: Respiratory failure complication: unspecified whether with hypoxia or hypercapnia Qualified Code(s): J96.00 - Acute respiratory failure, unspecified whether with hypoxia or hypercapnia Code(s): J96.00 - Acute respiratory failure, unspecified whether with hypoxia or hypercapnia Status: Acute Assessment and Plan: Pt presented from [facility] via EMS with AMS and hypoxia. Pt was intubated in the ED on 04/15/2021 Likely due to bilateral pneumonia as seen on CT chest -chest x-ray and ABGs reviewed Currently in pressure support mode. She is tolerating 10/5 . I have changed her to 5/5. If patient does well and ABGs acceptable I will try to extubate patient. She has good cough reflex and her mental status is probably close to her baseline. There is a chance of failure but IV do not expect patient's mental status to significantly improved from what it is right now. continue bronchodilators 04/16/2021, venous Dopplers of lower extremities were negative for DVT (3) Pneumonia: Qualifiers: Laterality: unspecified laterality Lung location: unspecified part of lung Pneumonia type: due to unspecified organism Qualified Code(s): J18.9 - Pneumonia, unspecified organism Code(s): J18.9 - Pneumonia, unspecified organism Status: Acute Assessment and Plan: 04/15/2021 Sputum culture : Pseudomonas and Staph aureus pneumonia, continue Zosyn (4) Seizure: Code(s): R56.9 - Unspecified convulsions Status: Acute Assessment and Plan: H/o Sz No witnessed seizure here in ICU continue gretchen -appreciate neurology following the patient, Topamax was discontinued on request of the family (5) Insulin dependent type 2 diabetes mellitus: Code(s): E11.9 - Type 2 diabetes mellitus without complications; Z79.4 - nursing home (current) use of insulin Status: Acute Assessment and Plan: Continue high dose SSI and acccucheks -hyperglycemia better, now off stress dose steroids. Continue Lantus (6) Encephalopathy acute: Code(s): G93.40 - Encephalopathy, unspecified Status: Acute Assessment and Plan: AMS on admission multifactorial likely related tod sepsis, acidosis, hypoxia, pna, UTI -CT brain reviewed, no new intracranial mass lesions were intracranial hemorrhage interval new mass effect, no subdural or epidural hematoma (7) Urinary tract infection: Code(s): N39.0 - Urinary tract infection, site not specified Status: Acute Assessment and Plan: 04/15/2021 urine cultures growing Pseudomonas, continue ABX as above (8) Brain tumor: Code(s): D49.6 - Neoplasm of unspecified behavior of brain Status: Acute Assessment and Plan: CT brain 04/15/2021: Status post right frontal craniotomy with large right frontal lobe resection. Left vertebral artery and prominent bilateral carotid siphon internal carotid artery calcifications. Again noted is a large infiltrative partially calcified mass in the right frontal parietal area, with right insular and basal ganglia and thalamic involvement in addition to left medial frontal lobe extension. 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 This appears
[2021-04-24 18:21] LABS: Glucose Point of Care 107 mg/dl (65-105)
[2021-04-24 18:21] LABS: Glucose Point of Care 70 mg/dl (65-105)
[2021-04-24] MEDS: ALTEPLASE 2 MG VIAL (CATHFLO) IV PUSH (18:40)
[2021-04-24 20:21] LABS: Glucose Point of Care 51 mg/dl (65-105)
[2021-04-24] MEDS: DEXTROSE 50% 25 GM/50 ML SYRINGE IV PUSH (20:25)
[2021-04-24 20:45] LABS: Glucose Point of Care 102 mg/dl (65-105)
[2021-04-25] VITALS (19 sets, daily range): BP systolic 118–141; BP diastolic 52–67; PULSE 101–117; RESP 16–25; TEMP 35.7–37.4; O2SAT 92–100
[2021-04-25 00:12] LABS: Glucose Point of Care 88 mg/dl (65-105)
[2021-04-25] MEDS: PIPERACILLIN/TAZOBACTAM SOD 4.5 GM in SODIUM CHLORIDE 0.9% IV 100 ML 200 ML IVPB ×5 (00:18→23:47)
[2021-04-25] MEDS: LEVALBUTEROL NEB 1.25 MG/3 ML 0.63 MG INHALATION ×4 (01:14→20:35)
[2021-04-25] MEDS: IPRATROPIUM BR 0.02% INH SOLN 0.5 MG/2.5 ML VIAL INHALATION ×4 (01:14→20:35)
[2021-04-25] MEDS: CENTRAL LINE FLUSH 10 ML IV PUSH ×3 (05:15→23:46)
[2021-04-25 05:16] LABS: Magnesium 1.9 mg/dL (1.6-2.3); Phosphorus 4.1 mg/dL (2.5-4.5)
[2021-04-25 07:41] LABS: Glucose Point of Care 112 mg/dl (65-105)
[2021-04-25 07:44] LABS: Glucose Point of Care 112 mg/dl (65-105)
[2021-04-25] MEDS: ENOXAPARIN 40 MG/0.4 ML SYRINGE SUB-Q (08:25)
[2021-04-25] MEDS: PANTOPRAZOLE SODIUM IV 40 MG VIAL IV PUSH ×2 (08:26→20:48)
[2021-04-25] MEDS: SACCHAROMYCES BOULARDII 250 MG CAPSULE FEED TUBE ×2 (08:26→16:38)
[2021-04-25] MEDS: levETIRAcetam ORAL SOL 500 MG/5 ML UDC FEED TUBE ×2 (08:26→20:47)
[2021-04-25] MEDS: ASCORBIC ACID 500 MG TABLET FEED TUBE (08:26)
--- NOTE | 2021-04-25 09:08 | PCFNICU ---
ICU Rounding Note: Pt current nutrition is Vital AF 1.2 at 60 ml/hr over 22 hours. Nutrition recommendation: Glucerna 1.2 at 70 ml/hr over 22 hours. Last recorded weight is 63.8 kg-stable Bowel Motility:FMS Labs Reviewed:No new labs to report. POC glucose 112 today. Meds Noted:Florastor, Atrovent, Keppra, Protonix, Vit C Skin: stage III-right buttock, Deep Tissue-Left heel. Additional Notes: Patient extubated on 04/24. Spoke with MD today regarding tube feeding change to standard formula. Tube feedings changed to Glucerna 1.2 at 70 ml/hr over 22 hours. Goal rate will provide 1848 kcals/92 gms protein/1240 ml water. Free water flush 50 ml q 4 hours. Protein Modular of Robbie BID given for wound healing. Banatrol Plus q 6 hours for stool bulking. Agree with diet orders. Following daily in ICU rounds. Will monitor every Friday and Friday..
[2021-04-25] MEDS: DORNASE ALFA INH SOLN 1 MG/ML 2.5 ML AMP 2.5 MG INHALATION (09:16)
--- NOTE | 2021-04-25 09:34 | WPDINTPN ---
Progress Note: A&P Assessment and Plan (1) Septic shock: Code(s): A41.9 - Sepsis, unspecified organism; R65.21 - Severe sepsis with septic shock Status: Acute Assessment and Plan: Elevated lactic acid, leukocytosis, pneumonia Patient was adequately fluid-resuscitated upon admission OFF LEVOPHED now WBC count trending down but still elevated Patient was started on Zosyn vancomycin (04/15/2021) levofloxacin (04/16/2021). 03/26 I have discontinued vancomycin and levofloxacin and continue Zosyn for now -04/15/2021: Blood cultures negative x2 so far -04/15/2019 to urine cultures growing pansensitive Pseudomonas -04/15/2021 sputum cultures pansensitive Pseudomonas and MSSA (2) Acute respiratory failure: Qualifiers: Respiratory failure complication: unspecified whether with hypoxia or hypercapnia Qualified Code(s): J96.00 - Acute respiratory failure, unspecified whether with hypoxia or hypercapnia Code(s): J96.00 - Acute respiratory failure, unspecified whether with hypoxia or hypercapnia Status: Acute Assessment and Plan: Pt presented [facility] via [facility] with AMS and hypoxia. Pt was intubated in the ED on 04/15/2021 Likely due to bilateral pneumonia as seen on CT chest 04/24 extubated after a successful weaning trial. Maintaining her oxygenation on nasal cannula with no respiratory distress Patient will not be able to do IS Will order EzPAP PT OT continue bronchodilators 04/16/2021, venous Dopplers of lower extremities were negative for DVT (3) Pneumonia: Qualifiers: Laterality: unspecified laterality Lung location: unspecified part of lung Pneumonia type: due to unspecified organism Qualified Code(s): J18.9 - Pneumonia, unspecified organism Code(s): J18.9 - Pneumonia, unspecified organism Status: Acute Assessment and Plan: 04/15/2021 Sputum culture : Pseudomonas and Staph aureus pneumonia, continue Zosyn (4) Seizure: Code(s): R56.9 - Unspecified convulsions Status: Acute Assessment and Plan: H/o Sz No witnessed seizure here in ICU continue gretchen -appreciate neurology following the patient, Topamax was discontinued on request of the family (5) Insulin dependent type 2 diabetes mellitus: Code(s): E11.9 - Type 2 diabetes mellitus without complications; 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 Lantus is on hold (6) Encephalopathy acute: Code(s): G93.40 - Encephalopathy, unspecified Status: Acute Assessment and Plan: AMS on admission multifactorial likely related tod sepsis, acidosis, hypoxia, pna, UTI -CT brain reviewed, no new intracranial mass lesions were intracranial hemorrhage interval new mass effect, no subdural or epidural hematoma Patient appears to be close to her baseline now (7) Urinary tract infection: Code(s): N39.0 - Urinary tract infection, site not specified Status: Acute Assessment and Plan: 04/15/2021 urine cultures growing Pseudomonas, continue ABX as above (8) Brain tumor: Code(s): D49.6 - Neoplasm of unspecified behavior of brain Status: Acute Assessment and Plan: CT brain 04/15/2021: Status post right frontal craniotomy with large right frontal lobe resection. Left vertebral artery and prominent bilateral carotid siphon internal carotid artery calcifications. Again noted is a large infiltrative partially calcified mass in the right frontal parietal area, with right insular and basal ganglia and thalamic involvement in addition to left medial frontal lobe extension. 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 This appears relatively stable since 03/07/2021. There is diminished attenuation of the cerebral white matter particularly in the frontal areas, likely due to postradiation change. No new
--- NOTE | 2021-04-25 10:51 | PC.NURSE ---
This patient, Linette Vásquez, was transferred to [[id number]] on 04/25/21 at 1040. Personal belongings sent with patient. Report given to [ VICTORINO Todd @ 1010]. Appropriate documentation sent with patient.
[2021-04-25 11:54] LABS: Glucose Point of Care 111 mg/dl (65-105)
[2021-04-25 17:28] LABS: Glucose Point of Care 95 mg/dl (65-105)
--- NOTE | 2021-04-25 20:43 | PCRCNOTE ---
CPT in the form of EZPAP was ordered for pt. Pt was instructed how to use the device but was either unable or unwilling to perform the maneuver. Device left in room to try again with next nebulizer treatment.
[2021-04-25 21:44] LABS: Glucose Point of Care 126 mg/dl (65-105)
[2021-04-26] VITALS (14 sets, daily range): BP systolic 120–138; BP diastolic 48–61; PULSE 100–115; RESP 16–24; TEMP 36.1–36.8; O2SAT 91–100
[2021-04-26 01:04] LABS: Glucose Point of Care 118 mg/dl (65-105)
[2021-04-26] MEDS: IPRATROPIUM BR 0.02% INH SOLN 0.5 MG/2.5 ML VIAL INHALATION ×3 (02:06→22:15)
[2021-04-26] MEDS: LEVALBUTEROL NEB 1.25 MG/3 ML 0.63 MG INHALATION ×3 (02:06→22:16)
[2021-04-26 05:02] LABS: Hematocrit 29.3 % (37.0-47.0); Hemoglobin 8.6 g/dL (12.0-15.0); Mean Corpuscular HGB Conc 29.4 g/dl (32-36); Mean Corpuscular Hemoglobin 25.5 pg (26-34); Mean Corpuscular Volume 86.9 fl (80-100); Mean Platelet Volume 8.3 fl (7.4-10.4); Platelet Count Result 394 k/mm3 (150-375); Red Blood Count 3.37 M/mm3 (4.2-5.4); White Blood Count 23.9 K/mm3 (4.5-10.0)
[2021-04-26 05:13] LABS: Alanine Aminotransferase 23 U/L (4-35); Albumin Level 3.4 g/dL (3.5-5.1); Alkaline Phosphatase 85 U/L (38-126); Anion Gap 3 mmol/L (8-16); Aspartate Amino Transferase 33 U/L (14-36); Bilirubin,Total < 0.1 mg/dL (0.2-1.3); Blood Urea Nitrogen 19 mg/dL (7-17); Calcium 9.3 mg/dL (8.4-10.2); Carbon Dioxide 28 mmol/L (22-30); Chloride 107 mmol/L (98-107); Estimated CRCL calculation 68 ml/min; Estimated Glomerular Filt Rate > 60; Glucose 122 mg/dL (65-110); Potassium 3.5 mmol/L (3.4-5.0); Sodium 138 mmol/L (137-145)
[2021-04-26] MEDS: PIPERACILLIN/TAZOBACTAM SOD 4.5 GM in SODIUM CHLORIDE 0.9% IV 100 ML 200 ML IVPB ×4 (05:21→23:23)
[2021-04-26] MEDS: CENTRAL LINE FLUSH 10 ML IV PUSH ×3 (05:22→21:30)
[2021-04-26 06:00] LABS: Glucose Point of Care 117 mg/dl (65-105)
[2021-04-26] MEDS: SACCHAROMYCES BOULARDII 250 MG CAPSULE FEED TUBE ×2 (08:05→17:58)
[2021-04-26] MEDS: PANTOPRAZOLE SODIUM IV 40 MG VIAL IV PUSH ×2 (08:05→20:26)
[2021-04-26] MEDS: ENOXAPARIN 40 MG/0.4 ML SYRINGE SUB-Q (08:05)
[2021-04-26] MEDS: levETIRAcetam ORAL SOL 500 MG/5 ML UDC FEED TUBE ×2 (08:05→20:26)
[2021-04-26] MEDS: ASCORBIC ACID 500 MG TABLET FEED TUBE (08:06)
--- NOTE | 2021-04-26 10:47 | PCRCNOTE ---
Window of time for administration has passed. See next scheduled administration.
[2021-04-26 11:34] LABS: Glucose Point of Care 164 mg/dl (65-105)
--- NOTE | 2021-04-26 14:02 | PM.IMPN ---
Progress Note: A&P Assessment and Plan (1) Septic shock: Code(s): A41.9 - Sepsis, unspecified organism; R65.21 - Severe sepsis with septic shock Status: Acute Assessment and Plan: Elevated lactic acid, leukocytosis, pneumonia Patient was adequately fluid-resuscitated upon admission OFF LEVOPHED now WBC count trending down but still elevated Patient was started on Zosyn vancomycin (04/15/2021) levofloxacin (04/16/2021). 03/26 I have discontinued vancomycin and levofloxacin and continue Zosyn for now -04/15/2021: Blood cultures negative x2 so far -04/15/2019 to urine cultures growing pansensitive Pseudomonas -04/15/2021 sputum cultures pansensitive Pseudomonas and MSSA 04/26/2021 interval history: patient is a 76-year-old female with cerebral mass status post resection nonverbal patient presented to ER in respiratory distress and patient was intubated secondary to pneumonia and was in ICU, was extubated on 04/24 and transferred to medical floor on 04/25 unfortunately patient is not able to provide any review of symptom, a chest x-ray showed persistent pneumonia and being treated with Zosyn, will continue to monitor will repeat x-ray on 04/28 and further recommendation to follow. (2) Acute respiratory failure: Qualifiers: Respiratory failure complication: unspecified whether with hypoxia or hypercapnia Qualified Code(s): J96.00 - Acute respiratory failure, unspecified whether with hypoxia or hypercapnia Code(s): J96.00 - Acute respiratory failure, unspecified whether with hypoxia or hypercapnia Status: Acute Assessment and Plan: Pt presented from [facility] via EMS with AMS and hypoxia. Pt was intubated in the ED on 04/15/2021 Likely due to bilateral pneumonia as seen on CT chest 04/24 extubated after a successful weaning trial. Maintaining her oxygenation on nasal cannula with no respiratory distress Patient will not be able to do IS Will order EzPAP PT OT continue bronchodilators 04/16/2021, venous Dopplers of lower extremities were negative for DVT (3) Pneumonia: Qualifiers: Laterality: unspecified laterality Lung location: unspecified part of lung Pneumonia type: due to unspecified organism Qualified Code(s): J18.9 - Pneumonia, unspecified organism Code(s): J18.9 - Pneumonia, unspecified organism Status: Acute Assessment and Plan: 04/15/2021 Sputum culture : Pseudomonas and Staph aureus pneumonia, continue Zosyn (4) Seizure: Code(s): R56.9 - Unspecified convulsions Status: Acute Assessment and Plan: H/o Sz No witnessed seizure here in ICU continue keeneidara -appreciate neurology following the patient, Topamax was discontinued on request of the family (5) Insulin dependent type 2 diabetes mellitus: Code(s): E11.9 - Type 2 diabetes mellitus without complications; Z79.4 - halfway (current) use of insulin Status: Acute Assessment and Plan: Continue high dose SSI and acccucheks -hyperglycemia better, now off stress dose steroids. Lantus is on hold (6) Encephalopathy acute: Code(s): G93.40 - Encephalopathy, unspecified Status: Acute Assessment and Plan: AMS on admission multifactorial likely related tod sepsis, acidosis, hypoxia, pna, UTI -CT brain reviewed, no new intracranial mass lesions were intracranial hemorrhage interval new mass effect, no subdural or epidural hematoma Patient appears to be close to her baseline now (7) Urinary tract infection: Code(s): N39.0 - Urinary tract infection, site not specified Status: Acute Assessment and Plan: 04/15/2021 urine cultures growing Pseudomonas, continue ABX as above (8) Brain tumor: Code(s): D49.6 - Neoplasm of unspecified behavior of brain Status: Acute Assessment and Plan: CT brain 04/15/2021: Status post right frontal craniotomy with large right frontal lobe resection. Left vertebral artery and p
[2021-04-26 18:12] LABS: Glucose Point of Care 157 mg/dl (65-105)
[2021-04-27] VITALS (14 sets, daily range): BP systolic 128–146; BP diastolic 57–61; PULSE 97–116; RESP 18–22; TEMP 36.4–38.1; O2SAT 92–98
[2021-04-27 00:06] LABS: Glucose Point of Care 193 mg/dl (65-105)
[2021-04-27] MEDS: LEVALBUTEROL NEB 1.25 MG/3 ML 0.63 MG INHALATION ×2 (02:57→10:14)
[2021-04-27] MEDS: IPRATROPIUM BR 0.02% INH SOLN 0.5 MG/2.5 ML VIAL INHALATION ×2 (02:57→10:14)
[2021-04-27 05:01] LABS: Hematocrit 27.6 % (37.0-47.0); Hemoglobin 8.1 g/dL (12.0-15.0); Mean Corpuscular HGB Conc 29.3 g/dl (32-36); Mean Corpuscular Hemoglobin 25.8 pg (26-34); Mean Corpuscular Volume 87.9 fl (80-100); Mean Platelet Volume 8.5 fl (7.4-10.4); Platelet Count Result 387 k/mm3 (150-375); Red Blood Count 3.14 M/mm3 (4.2-5.4); Red Cell Distribution Width 21.9 % (11.5-14.5); White Blood Count 17.3 K/mm3 (4.5-10.0)
[2021-04-27 05:18] LABS: Alanine Aminotransferase 23 U/L (4-35); Albumin Level 3.4 g/dL (3.5-5.1); Alkaline Phosphatase 88 U/L (38-126); Anion Gap 6 mmol/L (8-16); Aspartate Amino Transferase 25 U/L (14-36); Bilirubin,Total 0.2 mg/dL (0.2-1.3); Blood Urea Nitrogen 17 mg/dL (7-17); Calcium 8.9 mg/dL (8.4-10.2); Carbon Dioxide 26 mmol/L (22-30); Chloride 106 mmol/L (98-107); Estimated CRCL calculation 70 ml/min; Estimated Glomerular Filt Rate > 60; Glucose 216 mg/dL (65-110); Potassium 3.7 mmol/L (3.4-5.0); Sodium 138 mmol/L (137-145)
[2021-04-27] MEDS: PIPERACILLIN/TAZOBACTAM SOD 4.5 GM in SODIUM CHLORIDE 0.9% IV 100 ML 200 ML IVPB ×2 (05:33→11:06)
[2021-04-27] MEDS: INSULIN ASPART (*BKC) 100 UNITS/ML SUB-Q ×2 (05:43→12:18)
[2021-04-27] MEDS: CENTRAL LINE FLUSH 10 ML IV PUSH ×2 (05:44→15:40)
[2021-04-27 06:41] LABS: Glucose Point of Care 207 mg/dl (65-105)
[2021-04-27] MEDS: SACCHAROMYCES BOULARDII 250 MG CAPSULE FEED TUBE ×2 (09:03→17:53)
[2021-04-27] MEDS: PANTOPRAZOLE SODIUM IV 40 MG VIAL IV PUSH (09:04)
[2021-04-27] MEDS: levETIRAcetam ORAL SOL 500 MG/5 ML UDC FEED TUBE ×2 (09:04→19:43)
[2021-04-27] MEDS: ASCORBIC ACID 500 MG TABLET FEED TUBE (09:04)
[2021-04-27] MEDS: ENOXAPARIN 40 MG/0.4 ML SYRINGE SUB-Q (09:04)
[2021-04-27] MEDS: polyethylene glycoL 3350 17 GM POWD.PACK PO (09:04)
--- NOTE | 2021-04-27 11:37 | PCNFU ---
Nutrition Follow-Up Complete: Increased protein needs as related to wounds as evidenced by Pressure Ulcers. Goal:Meet estimated nutritional needs Patient is progressing towards goal. Pt current nutrition is Glucerna 1.2 at 70 ml/hr over 22 hours. Last recorded weight is 68.4 kg-stable Bowel Motility: +BM reported 2/3 Labs Reviewed:Glu 216, Alb 3.4, Hgb 8.1,Hct 27.6 Meds Noted:Vit C, Lovenox, NovoLog, Atrovent, Keppra, Protonix, Florastor. Skin: Stage III PU-right buttock, Deep Tissue-left heel. Additional Notes: Patient remains on tube feedings of Glucerna 1.2 at 70 ml/hr over 22 hours and tolerating. Tube feeding is providing 1848 kcals/92 gms protein/1240 ml water. Protein modular of Robbie BID given for wound healing providing patient with an additional 90 kcals and 2.5 gms protein each. Free water flush 50 ml q 4 hours. Agree with diet orders. Will monitor every Friday and Friday.
[2021-04-27 11:56] LABS: Glucose Point of Care 210 mg/dl (65-105)
--- NOTE | 2021-04-27 12:45 | PM.DS ---
DS: Admitting Diagnosis Discharge Date unresponsive Admitting Diagnosis 04/27/2021 DS: Discharge Diagnosis Discharge Diagnosis (1) Septic shock: Code(s): A41.9 - Sepsis, unspecified organism; R65.21 - Severe sepsis with septic shock Status: Acute Assessment and Plan: Elevated lactic acid, leukocytosis, pneumonia Patient was adequately fluid-resuscitated upon admission OFF LEVOPHED now WBC count trending down but still elevated Patient was started on Zosyn vancomycin (04/15/2021) levofloxacin (04/16/2021). 03/26 I have discontinued vancomycin and levofloxacin and continue Zosyn for now -04/15/2021: Blood cultures negative x2 so far -04/15/2019 to urine cultures growing pansensitive Pseudomonas -04/15/2021 sputum cultures pansensitive Pseudomonas and MSSA 04/26/2021 interval history: patient is a 76-year-old female with cerebral mass status post resection nonverbal patient presented to ER in respiratory distress and patient was intubated secondary to pneumonia and was in ICU, was extubated on 04/24 and transferred to medical floor on 04/25 unfortunately patient is not able to provide any review of symptom, a chest x-ray showed persistent pneumonia and being treated with Zosyn, will continue to monitor will repeat x-ray on 04/28 and further recommendation to follow. (2) Acute respiratory failure: Qualifiers: Respiratory failure complication: unspecified whether with hypoxia or hypercapnia Qualified Code(s): J96.00 - Acute respiratory failure, unspecified whether with hypoxia or hypercapnia Code(s): J96.00 - Acute respiratory failure, unspecified whether with hypoxia or hypercapnia Status: Acute Assessment and Plan: Pt [facility] with AMS and hypoxia. Pt was intubated in the ED on 04/15/2021 Likely due to bilateral pneumonia as seen on CT chest 04/24 extubated after a successful weaning trial. Maintaining her oxygenation on nasal cannula with no respiratory distress Patient will not be able to do IS Will order EzPAP PT OT continue bronchodilators 04/16/2021, venous Dopplers of lower extremities were negative for DVT (3) Pneumonia: Qualifiers: Laterality: unspecified laterality Lung location: unspecified part of lung Pneumonia type: due to unspecified organism Qualified Code(s): J18.9 - Pneumonia, unspecified organism Code(s): J18.9 - Pneumonia, unspecified organism Status: Acute Assessment and Plan: 04/15/2021 Sputum culture : Pseudomonas and Staph aureus pneumonia, continue Zosyn (4) Seizure: Code(s): R56.9 - Unspecified convulsions Status: Acute Assessment and Plan: H/o Sz No witnessed seizure here in ICU continue gretchen -appreciate neurology following the patient, Topamax was discontinued on request of the family (5) Insulin dependent type 2 diabetes mellitus: Code(s): E11.9 - Type 2 diabetes mellitus without complications; 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 Lantus is on hold (6) Encephalopathy acute: Code(s): G93.40 - Encephalopathy, unspecified Status: Acute Assessment and Plan: AMS on admission multifactorial likely related tod sepsis, acidosis, hypoxia, pna, UTI -CT brain reviewed, no new intracranial mass lesions were intracranial hemorrhage interval new mass effect, no subdural or epidural hematoma Patient appears to be close to her baseline now (7) Urinary tract infection: Code(s): N39.0 - Urinary tract infection, site not specified Status: Acute Assessment and Plan: 04/15/2021 urine cultures growing Pseudomonas, continue ABX as above (8) Brain tumor: Code(s): D49.6 - Neoplasm of unspecified behavior of brain Status: Acute Assessment and Plan: CT brain 04/15/2021: Status po
[2021-04-27 16:02] LABS: EDCOVIDSCREEN Negative (Negative)
[2021-04-27 18:07] LABS: Glucose Point of Care 193 mg/dl (65-105)
[2021-04-27] MEDS: ACETAMINOPHEN 325 MG TABLET 650 MG PO (19:43)
--- NOTE | 2021-05-14 13:43 | PN_ITS ---
This report was moved to the correct visit, [id number] on 05/18/2021. Original report was signed by Bereket Owusu MD 05/14/2021 [id number]. Progress Note: A&P Assessment and Plan (1) Septic shock: Code(s): A41.9 - Sepsis, unspecified organism; R65.21 - Severe sepsis with septic shock Status: Acute Assessment and Plan: Elevated lactic acid, leukocytosis, pneumonia Patient was adequately fluid-resuscitated upon admission OFF LEVOPHED WBC count trending down Continue Zosyn vancomycin, and levofloxacin -04/15/2021: Blood cultures negative x2 so far -04/15/2019 to urine cultures growing Pseudomonas -04/15/2021 sputum cultures Pseudomonas (2) Respiratory failure: Code(s): J96.90 - Respiratory failure, unspecified, unspecified whether with hypoxia or hypercapnia Status: Acute Assessment and Plan: Pt presented from care home via EMS with AMS and hypoxia. Pt was intubated in the ED on 04/15/2021 Likely due to bilateral pneumonia as seen on CT chest -chest x-ray this morning shows There is moderate amount of left-sided, small to moderate amount of right-sided ill-defined pneumonia and/or edema. There are no sizable pleural effusions. There is no pneumothorax suspected. Currently on CMV mode, PEEP of 8 and30% FIO2, Will wean fentanyl and Versed to off and continue Precedex infusion When pt wakes up will place on SBT continue bronchodilators -04/16/2021, venous Dopplers of lower extremities were negative for DVT - Will give bumex 1 mg Iv x1 AGAIN (3) Pneumonia: Code(s): J18.9 - Pneumonia, unspecified organism Status: Acute Assessment and Plan: 04/15/2021 Sputum culture : Pseudomonas and Staph aureus pneumonia, continue Zosyn, vancomycin and Levaquin (4) Seizure: Code(s): R56.9 - Unspecified convulsions Status: Acute Assessment and Plan: H/o Sz continue keppra and toprimate (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 Will decrease Lantus and monitor (6) Encephalopathy: Code(s): G93.40 - Encephalopathy, unspecified Status: Acute Assessment and Plan: AMS on admission, could be related sepsis, acidosis, hypoxia, pna, UTI -CT brain reviewed, no new intracranial mass lesions were intracranial hemorrhage interval new mass effect, no subdural or epidural hematoma (7) UTI (urinary tract infection): Code(s): N39.0 - Urinary tract infection, site not specified Status: Acute Assessment and Plan: 04/15/2021 urine cultures growing Pseudomonas, continue ABX as above (8) Brain tumor: Code(s): D49.6 - Neoplasm of unspecified behavior of brain Status: Acute Assessment and Plan: CT brain 04/15/2021: Status post right frontal craniotomy with large right frontal lobe resection. Left vertebral artery and prominent bilateral carotid siphon internal carotid artery calcifications. Again noted is a large infiltrative partially calcified mass in the right frontal parietal area, with right insular and basal ganglia and thalamic involvement in addition to left medial frontal lobe extension. 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 This appears relatively stable since 03/07/2021. There is diminished attenuation of the cerebral white matter particularly in the frontal areas, likely due to postradiation change. No new intracranial mass lesion or intracranial hemorrhage, or interval new mass effect is evident. No subdural or epidural hematoma. Moderate central and cortical cerebral atrophy
== END 2021-04-27 20:30 | DRG 870 ==
LOC: ANHED 08:09 → ANHICU 11:07 → ANH3MED 04-25 11:05
PROVIDERS: Internal Medicine; Admitting Provider Family Medicine; Emergency Provider Emergency Medicine; PCP Internal Medicine; Visit Provider Family Medicine
DX: A41.9 Sepsis, unspecified organism (principal); J18.9 Pneumonia, unspecified organism; J96.00 Acute respiratory failure, unspecified whether with hypoxia or hypercapnia; G93.41 Metabolic encephalopathy; R65.21 Severe sepsis with septic shock; N39.0 Urinary tract infection, site not specified; C71.9 Malignant neoplasm of brain, unspecified; K21.9 Gastro-esophageal reflux disease without esophagitis; F03.90 Unspecified dementia, unspecified severity, without behavioral disturbance, psychotic disturbance, mood disturbance, and anxiety; R13.10 Dysphagia, unspecified; Z79.4 Long term (current) use of insulin; Z87.891 Personal history of nicotine dependence; Z20.822 Contact with and (suspected) exposure to COVID-19; R56.9 Unspecified convulsions; D49.6 Neoplasm of unspecified behavior of brain; D64.9 Anemia, unspecified; B96.5 Pseudomonas (aeruginosa) (mallei) (pseudomallei) as the cause of diseases classified elsewhere; E66.9 Obesity, unspecified; Z68.29 Body mass index [BMI] 29.0-29.9, adult; E87.8 Other disorders of electrolyte and fluid balance, not elsewhere classified; E87.6 Hypokalemia; B95.61 Methicillin susceptible Staphylococcus aureus infection as the cause of diseases classified elsewhere; E11.65 Type 2 diabetes mellitus with hyperglycemia; K29.60 Other gastritis without bleeding; Z93.1 Gastrostomy status
CPT/HCPCS: 31500; 36415; 36569; 36600; 70450; 71045; 71250; 80048; 80053; 80202; 81001; 82375; 82607; 82652; 82728; 82746; 82805; 82948; 83010; 83050; 83540; 83550; 83605; 83615; 83735; 83880; 84100; 84484; 85025; 85027; 85046; 85055; 85610; 85730; 87040; 87070; 87077; 87086; 87088; 87186; 87205; 87426; 93005; 93970; 94003; 94640; 96361; 96365; 96367; 96368; 99291; A9270; C1751; C9113; C9803; J0330; J1650; J1720; J1815; J1953; J1956; J2250; J2543; J2704; J2997; J3010; J3370; J3475; J3480; J7030; U0003; U0005

== ENCOUNTER 2021-04-30 10:09 | Inpatient (IN) | payer MEDICARE, MEDICAID, SELFPAY ==
[2021-04-30] VITALS (71 sets, daily range): BP systolic 63–161; BP diastolic 32–119; PULSE 88–115; RESP 20–90; TEMP 33.5–37.4; O2SAT 20–100; BMI 24.0
--- NOTE | ~2021-04-30 | CT_ITS ---
EXAMINATION: CT brain wo con DATE: 04/30/2021 13:15 INDICATION: Altered mental state. History of brain mass. TECHNIQUE: Computed tomography (CT) of the head was performed without intravenous contrast. The mA wa s adjusted according to patient size. Iterative reconstruction technique was employed. Exam dose: 60 5.33 mGy-cm total exam DLP. COMPARISON: 04/15/2021 CT brain FINDINGS: Status post right frontal craniotomy and right frontal lobe, with right frontal temporal bindu ne flap in place. Again noted is a prominent calcified mass in the right frontal, temporal lobes, right insula and basa l ganglia and thalamus, with extension across the midline into the left frontal area, without signifi cant change since 04/15/2021. No intracranial hemorrhage or new midline shift or mass effect is evident. Vertebral basilar and bilateral carotid siphon internal carotid artery calcifications are noted. Ther e is nonspecific diminished attenuation of the cerebral white matter, likely due to chronic small ves adriana ischemic changes. No skull fracture or bone destruction. Minimal fluid levels in the posterior maxillary and left sphenoid sinuses and larger fluid level in t he right sphenoid sinus. The fluid levels are new since 04/15/2021. The mastoid air cells are normally developed and aerated. IMPRESSION: No change of large calcified brain mass since 04/15/2021; no acute intracranial findings since 04/15/2021 Fluid levels in some of the paranasal sinuses since 04/15/2021 Reviewed, dictated and finalized at Location [facility]. Reviewed, dictated and finalized at location A. INSPECTOR
--- NOTE | ~2021-04-30 | XR_ITS ---
EXAMINATION: XR chest 1V portable DATE: 05/08/2021 05:52 INDICATION: Respiratory failure. TECHNIQUE: A single frontal view of the chest was obtained. COMPARISON: Chest single view 05/07/2021 FINDINGS: There is a diffuse reticulonodular pattern in the lungs. There are patchy airspace opacitie s in left lung and right midlung zone. No pleural effusion or pneumothorax. The heart size is normal. The endotracheal tube tip is 2.6 cm above the ruchi. A right internal jugular central venous cathet er is seen with tip at the superior cavoatrial junction. IMPRESSION: 1. Stable diffuse lung disease, consistent with pneumonia. Reviewed, dictated and finalized at location A. CAL OFFICE ASSISTANT INSTRUCTOR
--- NOTE | ~2021-04-30 | XR_ITS ---
EXAMINATION: XR chest 1V portable DATE: 05/12/2021 05:47 INDICATION: Respiratory failure TECHNIQUE: frontal view of the chest was obtained. COMPARISON: Chest radiograph dated 05/11/2021 FINDINGS: Endotracheal tube tip 3.4 cm above the ruchi. Right internal jugular central venous catheter tip in the caudal superior vena cava. Pulmonary vascular congestion with increased interstitial pattern consistent with mild pulmonary partha a. There is been some improvement in some airspace opacities in the left mid and lower lung zone. No pleural effusion or pneumothorax. The cardiomediastinal silhouette is normal. IMPRESSION: 1. Persistent diffuse increased interstitial pattern with some interval decrease in more patchy airsp paul opacities in the left lower lung zone which could represent pulmonary edema or pneumonia. Reviewed, dictated and finalized at location A. RONMENTAL TECHNICAL OFFICER IMPRESSION: 1. Persistent diffuse increased interstitial pattern with some interval decreas e in more patchy airspace opacities in the left lower lung zone which could rep resent pulmonary edema or pneumonia.
--- NOTE | ~2021-04-30 | XR_ITS ---
EXAMINATION: XR chest 1V portable INDICATION: Respiratory failure TECHNIQUE: Portable AP chest at 0514 hours COMPARISON: 05/09/2021 FINDINGS: The endotracheal tube ends approximately 3.3 cm above the ruchi. The nasogastric tube is f ollowed as far as the stomach. Its tip is beyond the inferior margin of the radiograph. A right inter nal jugular catheter ends with its tip in the distal superior vena cava. Patchy airspace opacities pe rsist throughout all lung zones without significant change. There is no pleural effusion or pneumotho rax. The heart size is normal. IMPRESSION: 1. Stable diffuse lung disease, consistent with pneumonia. Reviewed, dictated and finalized at location A. OR INSTRUCTIONAL DESIGNER
--- NOTE | ~2021-04-30 | XR_ITS ---
EXAMINATION: XR chest 1V portable INDICATION: Respiratory failure TECHNIQUE: Portable AP chest at 0517 hours COMPARISON: 05/04/2021 FINDINGS: The endotracheal tube ends approximately 1.9 cm above the ruchi. A right internal jugular central venous catheter ends with its tip in the proximal right atrium. There is no pleural effusion or pneumothorax. Interstitial and opacities are present throughout the left lung and in the right mid and upper lung zones with slight increase. Left perihilar opacity is slightly increased. There is no pleural effusion or pneumothorax. IMPRESSION: 1. Slight increase in interstitial and airspace opacities, consistent with pneumonia and/or pulmonary edema. Reviewed, dictated and finalized at location A. NGUAL CUSTOMER SERVICE SPECIALIST IMPRESSION: 1. Slight increase in interstitial and airspace opacities, consistent with pneu monia and/or pulmonary edema.
--- NOTE | ~2021-04-30 | XR_ITS ---
EXAMINATION: XR abdomen NG/feed tube insert DATE: 05/09/2021 18:30 INDICATION: Orogastric tube insertion TECHNIQUE: A supine view of the abdomen and lower chest was obtained for evaluation of feeding tube placement. COMPARISON: Chest radiograph dated 05/09/2021 at 5:23 AM FINDINGS: Orogastric tube tip at the gastric antrum with proximal side-port in the body of the stomach. Endotra cheal tube tip 3.6 cm above the ruchi. Distal tip of right internal jugular central venous catheter the superior cavoatrial junction. No dilated loops of bowel in the visualized abdomen. Diffuse inters titial and airspace opacities throughout both lungs. Heart size is normal. IMPRESSION: 1. No gastric tube tip in the stomach. 2. Unchanged diffuse bilateral lung disease consistent with pneumonia. Reviewed, dictated and finalized at location A. ER TECHNICIAN
--- NOTE | ~2021-04-30 | XR_ITS ---
EXAMINATION: XR chest 1V portable DATE: 05/07/2021 05:49 INDICATION: Respiratory failure. TECHNIQUE: A single frontal view of the chest was obtained. COMPARISON: Chest single view 05/05/2021, chest CT 04/15/2021 FINDINGS: There is a diffuse reticulonodular pattern in the lungs. There are airspace opacities in al l left lung zones, worst in left midlung zone. No pleural effusion or pneumothorax. The heart size is normal. The endotracheal tube tip is 3.0 cm above the ruchi. A right internal jugular central venou s catheter is seen with tip at the superior cavoatrial junction. IMPRESSION: 1. Stable diffuse lung disease, consistent with pneumonia. Reviewed, dictated and finalized at location A. RGICAL MUSIC DIRECTOR
--- NOTE | ~2021-04-30 | XR_ITS ---
XR chest 1V portable 05/22/2021 05:22 Indication: Respiratory failure Procedure: AP portable chest Comparison: Comparison to multiple prior studies sequentially, with oldest reviewed study dated 05/13. Findings: Endotracheal tube tip 3.2 cm above the ruchi. Heart size normal. Diffuse bilateral airspac e disease is unchanged. No significant effusion or pneumothorax. Central line tip in the SVC. Impression: 1: Diffuse bilateral airspace disease which may represent edema or pneumonia. Reviewed, dictated and finalized at location A. GHT FORWARDER Impression: 1: Diffuse bilateral airspace disease which may represent edema or pneumonia.
--- NOTE | ~2021-04-30 | XR_ITS ---
EXAMINATION: XR chest 1V portable DATE: 05/02/2021 05:52 INDICATION: Respiratory failure TECHNIQUE: frontal view of the chest was obtained. COMPARISON: Chest radiograph dated 05/01/2021 and 04/30/2021 FINDINGS: Endotracheal tube tip 1.7 cm above the ruchi. Right internal jugular central venous catheter with di stal tip at the caudal superior vena cava. Persistent diffuse increased interstitial pattern as well as slight improvement in the left-sided pre dominant perihilar airspace opacities when compared with earlier study dated 04/30/2021. No pleural eff usion or pneumothorax. The cardiomediastinal silhouette is normal. IMPRESSION: 1. Continued slight decrease in bilateral interstitial and airspace opacities which could represent i mproving pulmonary edema and/or pneumonia. Reviewed, dictated and finalized at location A. MENTAL METAL WORKER APPRENTICE IMPRESSION: 1. Continued slight decrease in bilateral interstitial and airspace opacities w hich could represent improving pulmonary edema and/or pneumonia.
--- NOTE | ~2021-04-30 | XR_ITS ---
EXAMINATION: XR chest 1V portable EXAM DATE: 05/15/2021 06:11 INDICATION: Respiratory failure. TECHNIQUE: Portable AP frontal chest x-ray was obtained. Comparison is made to prior examination from 05/14/2021. FINDINGS: Endotracheal tube and right-sided IJ venous line are both in position. There is moderate a mount of ill-defined left hilar airspace disease, smaller amount of right-sided airspace disease, [place] ma or pneumonia. No pneumothorax or pleural effusion. Cardiomediastinal silhouette is normal. There a re no osseous abnormalities identified. Stable or minimal improvement in airspace disease compared to yesterday. IMPRESSION: Bilateral ill-defined bilateral edema or pneumonia . IRER KILN CAR Reviewed, dictated and finalized at location A.
--- NOTE | ~2021-04-30 | XR_ITS ---
EXAMINATION: XR chest 1V portable DATE: 05/01/2021 05:46 INDICATION: Respiratory failure TECHNIQUE: frontal view of the chest was obtained. COMPARISON: Chest radiograph dated 04/30/2021 FINDINGS: Endotracheal tube tip 2.8 cm above the ruchi. Right internal jugular central venous catheter with di stal tip at the caudal superior vena cava. Slight improvement in the bilateral interstitial and left perihilar and predominant airspace opacitie s. No pleural effusion or pneumothorax. The cardiomediastinal silhouette is normal. IMPRESSION: 1. Slight decrease in the bilateral interstitial and airspace opacities which could represent improvi ng pulmonary edema and/or pneumonia. Reviewed, dictated and finalized at location A. AND BEVERAGE INTERN IMPRESSION: 1. Slight decrease in the bilateral interstitial and airspace opacities which c ould represent improving pulmonary edema and/or pneumonia.
--- NOTE | ~2021-04-30 | CT_ITS ---
EXAMINATION: CT abdomen pelvis wo con DATE: 05/10/2021 10:11 INDICATION: GI bleeding TECHNIQUE: Computed tomography (CT) of the abdomen and pelvis was performed without intravenous contr ast. The dose-length product (DLP) was 1125.44 mGy-cm. Automated exposure control and iterative recon struction technique were employed. COMPARISON: 06/10/2020 FINDINGS: There are airspace opacities of the visualized lung bases. Small pleural effusions are pres ent. The heart size is normal. There is calcified coronary artery atherosclerosis. The nasogastric tu be is in the stomach. A percutaneous gastrostomy is noted. There is a 2.8 cm cyst of the liver. The s pleen, pancreas, and adrenal glands are normal. There is a 1.5 cm hemorrhagic cyst of the left kidney . The right kidney is unremarkable. No pathologically enlarged abdominal or pelvic lymph nodes are id entified. There is calcified atherosclerosis of the aorta and many of the other arteries. There is no free intraperitoneal gas or evidence of bowel obstruction. A rectal tube is noted. Colonic diverticu losis is present without evidence of diverticulitis. The bladder is decompressed by Hodge catheter. T here are multiple calcified uterine fibroids. There is hyperdense fluid in the cecum of unclear signi ficance. There is mild lumbar spondylosis. IMPRESSION: 1. Atelectasis and pneumonia of the visualized lower lobes. 2. Hyperattenuating fluid in the cecum which could reflect the site of GI bleed. Reviewed, dictated and finalized at location A. HEAD COOPER IMPRESSION: 1. Atelectasis and pneumonia of the visualized lower lobes. 2. Hyperattenuating fluid in the cecum which could reflect the site of GI bleed .
--- NOTE | ~2021-04-30 | XR_ITS ---
EXAMINATION: XR chest ET placement EXAM DATE: 04/30/2021 10:32 INDICATION: CODE BLUE, unresponsive. TECHNIQUE: Portable AP frontal chest x-ray was obtained. Comparison is made to prior examination from 04/26/2021. FINDINGS: Moderate amount of left-sided predominant abnormal reticulation, airspace disease consisten t with pneumonia or edema. This may have mild interval progression. No pneumothorax or pleural effusi on. Endotracheal tube is in position. IMPRESSION: 1. ET tube in position. 2. Moderate left-sided predominant airspace disease, mild progression. Reviewed, dictated and finalized at location B. LE BPM CONSULTANT
--- NOTE | ~2021-04-30 | XR_ITS ---
EXAMINATION: XR fl guide central line place DATE: 04/30/2021 11:10 INDICATION: Check central line placement. TECHNIQUE: One view COMPARISON: 04/30/2021 at 10:29 AM FINDINGS: Endotracheal tube tip 2.7 cm above the ruchi. Right internal jugular central venous catheter with di stal tip near the superior cavoatrial junction. Persistent perihilar predominant increased interstitial pattern with left-sided perihilar patchy airs pace opacities most prominent in the suprahilar region. No pleural effusion or pneumothorax. Heart si ze is normal. IMPRESSION: 1. Right internal jugular central venous catheter tip near the superior cavoatrial junction. 2. Unchanged bilateral lung disease most prominent in the left suprahilar region most consistent with pneumonia although superimposed mild pulmonary edema is not excludable. Reviewed, dictated and finalized at location A. COMPRESSOR ENGINEER IMPRESSION: 1. Right internal jugular central venous catheter tip near the superior cavoatr ial junction. 2. Unchanged bilateral lung disease most prominent in the left suprahilar regio n most consistent with pneumonia although superimposed mild pulmonary edema is not excludable.
--- NOTE | ~2021-04-30 | XR_ITS ---
XR chest 1V portable DATE: 05/24/2021 05:49 INDICATION: Respiratory failure TECHNIQUE: Portable AP chest on 05/24/2021 at 0518 hours COMPARISON: 05/22/2021 portable AP chest at 0503 hours FINDINGS: ET tube tip approximately 2.3 cm above ruchi in satisfactory position. Right internal jugular central venous catheter tip overlies the upper right atrium. Scattered patchy bilateral infiltrates throughout the lungs, greater on the left, suggesting bilatera l pneumonia. Heart size is normal. No pleural effusion or pneumothorax is evident. Diffuse osteopenia. IMPRESSION: Persistent scattered patchy bilateral pulmonary infiltrates suggesting bilateral pneumoni a Reviewed, dictated and finalized at location A. ITION ASSISTANT IMPRESSION: Persistent scattered patchy bilateral pulmonary infiltrates suggest ing bilateral pneumonia
--- NOTE | ~2021-04-30 | XR_ITS ---
EXAMINATION: XR chest 1V portable INDICATION: Respiratory failure TECHNIQUE: Portable AP chest at 0508 hours COMPARISON: 05/15/2021 FINDINGS: The endotracheal tube ends approximately 1.9 cm above the ruchi. A right internal jugular central venous catheter ends with this tip in the distal superior cava. There are mild patchy airspac e opacities throughout the right lung and in the left mid and lower lung zones without significant ch aramis. There is no pleural effusion or pneumothorax. The cardiomediastinal silhouette is normal. IMPRESSION: 1. Stable diffuse lung disease, consistent with pneumonia and/or pulmonary edema. Reviewed, dictated and finalized at location A. ROL SYSTEMS DESIGNER IMPRESSION: 1. Stable diffuse lung disease, consistent with pneumonia and/or pulmonary partha a.
--- NOTE | ~2021-04-30 | XR_ITS ---
EXAMINATION: XR chest 1V portable DATE: 05/09/2021 06:01 INDICATION: Respiratory failure. TECHNIQUE: A single frontal view of the chest was obtained. COMPARISON: Chest single view 05/08/2021, chest CT 04/15/2021 FINDINGS: There are patchy airspace opacities in all lung zones bilaterally. No pleural effusion or p neumothorax. The heart size is normal. The endotracheal tube tip is 2.8 cm above the ruchi. A right internal jugular central venous catheter is seen with tip at the superior cavoatrial junction. IMPRESSION: 1. Stable diffuse lung disease, consistent with pneumonia. Reviewed, dictated and finalized at location A. ASS FACILITATOR
--- NOTE | ~2021-04-30 | XR_ITS ---
XR chest 1V portable 05/13/2021 05:49 Indication: Respiratory failure Procedure: AP portable chest Comparison: Comparison to multiple prior studies sequentially, with oldest reviewed study dated 05/09. Findings: Endotracheal tube tip 2.1 cm above the ruchi. Right IJ central line tip in the SVC. Persis tent unchanged bilateral interstitial infiltrates. No significant effusion or pneumothorax. Impression: 1: Stable diffuse bilateral interstitial infiltrates which may represent pneumonia or edema. Reviewed, dictated and finalized at location A. TER MANAGER Impression: 1: Stable diffuse bilateral interstitial infiltrates which may represent pneumo raj or edema.
--- NOTE | ~2021-04-30 | XR_ITS ---
EXAMINATION: XR chest 1V portable DATE: 05/04/2021 06:39 INDICATION: Respiratory failure TECHNIQUE: frontal view of the chest was obtained. COMPARISON: Chest radiograph dated 05/03/2021 FINDINGS: Endotracheal tube tip 1.4 cm above the ruchi. Right internal jugular central venous catheter with di stal tip near the superior cavoatrial junction. Mild increased interstitial pattern with persistent left perihilar airspace opacities. No pleural eff usion or pneumothorax. The cardiomediastinal silhouette is normal. IMPRESSION: 1. Slight worsening diffuse interstitial pattern consistent with mild pulmonary edema. 2. Persistent mild left perihilar airspace opacities which could represent additional more focal pulm onary edema, pneumonia or atelectasis. Reviewed, dictated and finalized at location A. TER WAITER IMPRESSION: 1. Slight worsening diffuse interstitial pattern consistent with mild pulmonary edema. 2. Persistent mild left perihilar airspace opacities which could represent laney tional more focal pulmonary edema, pneumonia or atelectasis.
--- NOTE | ~2021-04-30 | XR_ITS ---
EXAMINATION: XR chest 1V portable DATE: 05/03/2021 05:48 INDICATION: Respiratory failure TECHNIQUE: frontal view of the chest was obtained. COMPARISON: Chest radiograph dated 05/02/2021 FINDINGS: Endotracheal tube tip 2.3 cm above the ruchi. Right internal jugular central venous catheter with di stal tip near the superior cavoatrial junction. Continued improvement in the increased interstitial pattern which is nearly resolved in the right red g. Persistent mild scattered airspace opacities in the left lung with perihilar predominance. No pleu ral effusion or pneumothorax. The cardiomediastinal silhouette is normal. IMPRESSION: 1. Continued improvement in interstitial and airspace opacities in the left lung, essentially resolve d on the right, which could represent pulmonary edema and/or pneumonia. Reviewed, dictated and finalized at location A. LOGY REP SPECIALIST IMPRESSION: 1. Continued improvement in interstitial and airspace opacities in the left red g, essentially resolved on the right, which could represent pulmonary edema and /or pneumonia.
--- NOTE | ~2021-04-30 | XR_ITS ---
XR chest 1V portable DATE: 05/25/2021 06:01 INDICATION: Respiratory failure TECHNIQUE: Portable AP chest on 05/25/2021 at 0518 hours COMPARISON: 05/24/2021 portable AP chest at 0 518 05/22/2021 portable AP chest at 0503 hours 05/16/2021 portable AP chest at 0508 hours FINDINGS: Tracheostomy tube in satisfactory position. Right internal jugular central venous catheter tip is situated in the region of the superior cavoatri al junction. Normal heart size. Scattered patchy bilateral pulmonary infiltrates are again suggested, most prominent in the left mid and lower lung zones. No pleural effusion. No pneumothorax. Diffuse osteopenia. IMPRESSION: Interval placement of tracheostomy tube Persistent scattered patchy bilateral pulmonary infiltrates Reviewed, dictated and finalized at location A. RCIL CORE TRANSFORMER ASSEMBLER
--- NOTE | ~2021-04-30 | XR_ITS ---
EXAMINATION: XR chest 1V portable INDICATION: Respiratory failure TECHNIQUE: Portable AP chest at 0513 hours COMPARISON: 05/10/2021 FINDINGS: The endotracheal tube ends approximately 4.3 cm above the ruchi. A nasogastric tube is in the stomach. A right internal jugular central venous catheter ends with its tip in the distal superio r vena cava. Patchy airspace opacities persist throughout all lung zones with slight improvement on t he right and slight worsening in the left midlung zone. There is no pleural effusion or pneumothorax. The heart size is normal. IMPRESSION: 1. Diffuse lung disease with slight improvement on the right and slight worsening on the left, consis tent with pneumonia. Reviewed, dictated and finalized at location A. RT DISPATCHER IMPRESSION: 1. Diffuse lung disease with slight improvement on the right and slight worseni ng on the left, consistent with pneumonia.
--- NOTE | ~2021-04-30 | XR_ITS ---
EXAMINATION: XR chest 1V portable EXAM DATE: 05/14/2021 05:57 INDICATION: Respiratory failure. TECHNIQUE: Portable AP frontal chest x-ray was obtained. Comparison is made to prior examination from 05/13/2021. FINDINGS: Endotracheal tube and right-sided IJ venous line are both in position. There is moderate am ount of ill-defined bilateral airspace disease again noted, edema or pneumonia. No pneumothorax or pl eural effusion. Cardiomediastinal silhouette is normal. There are no osseous abnormalities identified . IMPRESSION: Moderate amount of ill-defined bilateral edema or pneumonia unchanged. Reviewed, dictated and finalized at location A. SERVICE CLERK IMPRESSION: Moderate amount of ill-defined bilateral edema or pneumonia unchang ed.
--- NOTE | 2021-04-30 10:23 | ECG_ITS ---
Measurements Intervals [place] Rate: 114 P: ND: 0 QRS: -76 QRSD: 104 T: 29 QT: 322 QTc: 444 Interpretive Statements SINUS TACHYCARDIA INCOMPLETE RIGHT BUNDLE BRANCH BLOCK INFERIOR INFARCT, AGE INDETERMINATE POOR R WAVE PROGRESSION, ANTERIOR LEADS BASELINE ARTIFACT- I, II, III, AVR, AVL, AVF, V3-V6 ABNORMAL ECG Electronically Signed On 04-30-2021 10:56:38 [employer]MER by Bryon Reyes D.O.
[2021-04-30 10:27] LABS: Glucose Point of Care > 500 mg/dl (65-105)
[2021-04-30 10:33] LABS: Hematocrit 34.9 % (37.0-47.0); Hemoglobin 9.1 g/dL (12.0-15.0); Mean Corpuscular HGB Conc 26.1 g/dl (32-36); Mean Corpuscular Hemoglobin 25.6 pg (26-34); Mean Corpuscular Volume 98.3 fl (80-100); Mean Platelet Volume 9.2 fl (7.4-10.4); Platelet Count Result 512 k/mm3 (150-375); Red Blood Count 3.55 M/mm3 (4.2-5.4); Red Cell Distribution Width 21.1 % (11.5-14.5)
[2021-04-30 10:44] LABS: INR 1.6; Prothrombin Time 18.3 Seconds (11.1-14.7)
[2021-04-30 10:45] LABS: Partial Thromboplastin Time 72.9 SECONDS (22.3-36.8)
--- NOTE | 2021-04-30 10:45 | PC.NURSE ---
Dr. Hurd at bedside placing central line
[2021-04-30 10:53] LABS: Alanine Aminotransferase 58 U/L (4-35); Albumin Level 3.5 g/dL (3.5-5.1); Alkaline Phosphatase 102 U/L (38-126); Anion Gap 21 mmol/L (8-16); Aspartate Amino Transferase 109 U/L (14-36); Bilirubin,Total 0.2 mg/dL (0.2-1.3); Blood Urea Nitrogen 19 mg/dL (7-17); Calcium 8.8 mg/dL (8.4-10.2); Carbon Dioxide 13 mmol/L (22-30); Chloride 106 mmol/L (98-107); Estimated CRCL calculation 50 ml/min; Estimated Glomerular Filt Rate > 60; Glucose 571 mg/dL (65-110); Potassium 4.7 mmol/L (3.4-5.0); Sodium 140 mmol/L (137-145)
[2021-04-30 10:57] LABS: Band Neutrophils Percent 14 % (0-6); Eosinophils Absolute Manual 1.92 K/mm3 (0.02-0.5); Eosinophils Percent Manual 4 % (0-4); Lymphocytes Absolute Manual 23.04 K/mm3 (1.1-4.5); Monocytes Absolute Manual 0.96 K/mm3 (0.1-0.90); Monocytes Percent Manual 2 % (3-9); Myelocytes Percent 3 %; Neutrophils Absolute Manual 20.64 K/mm3 (1.7-7.2); Neutrophils Percent Manual 29 % (46-73); Nucleated Red Blood Cells 1 %; Total Cells Counted 100; Troponin I 0.162 ng/mL (0.000-0.034)
[2021-04-30 10:58] LABS: Anisocytosis 1+ (NORMAL); Platelet Estimate Increased (Adequate)
--- NOTE | 2021-04-30 11:07 | ED.CPR ---
HPI - CPR General Chief Complaint: Cardiac Arrest/CPR Stated Complaint: CARDIAC ARREST Time Seen by Provider: 04/30/21 10:22 Source: EMS Mode of arrival: EMS Limitations: clinical condition History of Present Illness HPI narrative: Patient is a 76-year-old female brought in cardiorespiratory arrest. According to EMS she was seen unresponsive around 920 approximately 45 minutes prior to arrival. [facility] and continued by EMS. Patient was intubated and placed on Efrain machine. Per EMS, they have worked in her for approximately 30 to 35 minutes, approximately 4 epis were given along with continuous cardiopulmonary resuscitation. Upon arrival to the emergency room patient is unresponsive, no spontaneous respiration, no pulse. Related Data Home Medications Medication Instructions Recorded Confirmed ascorbic acid (vitamin C) [Vitamin 500 mg FEEDING TUBE DAILY 03/16/20 04/30/21 C] cholecalciferol (vitamin D3) 1,250 mcg FEEDING TUBE WEEKLY 03/17/20 04/30/21 lactulose 15 ml FEEDING TUBE Q8H PRN 03/17/20 04/30/21 Fleet Enema 118 ml RECTAL DAILY PRN 12/26/20 04/30/21 umeclidinium-vilanterol 1 inh INHALATION DAILY PRN 12/26/20 04/30/21 bisacodyl 10 mg RECTAL DAILY PRN 01/01/21 04/30/21 d-mannose 500 mg DAILY 01/01/21 04/30/21 diclofenac sodium 1 applic TOPICAL BID PRN 01/01/21 04/30/21 magnesium citrate [Citroma] 296 ml FEEDING TUBE DAILY PRN 01/01/21 04/30/21 magnesium hydroxide 30 ml FEEDING TUBE HS PRN 01/01/21 04/30/21 ondansetron HCl 4 mg FEEDING TUBE Q6H PRN 01/01/21 04/30/21 Basaglar KwikPen U-100 Insulin 40 unit SUBCUT HS 01/26/21 04/30/21 Saccharomyces boulardii [Florastor] 250 mg FEEDING TUBE BID 01/26/21 04/30/21 acetaminophen [Mapap 650 mg FEEDING TUBE Q8H PRN 02/28/21 04/30/21 (acetaminophen)] chlorhexidine gluconate [Peridex] 15 ml BUCCAL BID 02/28/21 04/30/21 insulin aspart U-100 [Novolog 1 sliding scale dose SUBCUT 02/28/21 04/30/21 Flexpen U-100 Insulin] USEASDIRECTD Santyl 1 applic TOPICAL DAILY 04/15/21 04/30/21 esomeprazole magnesium 20 mg FEEDING TUBE DAILY 04/15/21 04/30/21 mupirocin 1 applic TOPICAL DAILY 04/15/21 04/30/21 Allergies Allergy/AdvReac Type Severity Reaction Status Date / Time shellfish derived Allergy Unknown Hives Verified 04/30/21 10:39 codeine Allergy Unknown Verified 04/30/21 10:39 erythromycin base Allergy Unknown Verified 04/30/21 10:39 hydrocodone Allergy Unknown Verified 04/30/21 10:39 ibuprofen Allergy Unknown Verified 04/30/21 10:39 Iodinated Contrast Media Allergy Unknown Verified 04/30/21 10:39 meperidine Allergy Unknown Verified 04/30/21 10:39 mepivacaine [From Carbocaine] Allergy Unknown Verified 04/30/21 10:39 propoxycaine Allergy Unknown Verified 04/30/21 10:39 propoxyphene Allergy Unknown Verified 04/30/21 10:39 Sulfa (Sulfonamide Allergy Unknown Verified 04/30/21 10:39 Antibiotics) Review of Systems Review of Systems: ROS unobtainable: Yes unobtainable due to medical condition and unobtainable due to mental status PMFSH Past Medical History Medical History Chronic anemia Chronic GERD Chronic indwelling Hodge catheter Dementia Dysphagia Peg tube 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 Elevated transaminase level Appears chronic. 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 Surgical History Surgical History Gastrointestinal tube in situ (~02/2020) History of craniotomy Right frontal lobe craniotomy with resection of oligodendroglioma. Family History Family History Mother Diabetes mellitus Father Lung cancer Sibling Breast cancer she has Sibling Breast cancer Father Lung cancer Social History Social History (Reviewed
[2021-04-30] MEDS: NOREPINEPHRINE 8 MG/D5W 250 ML 8 MG/250 ML BAG 13.13 MG IV CONT (11:09)
--- NOTE | 2021-04-30 11:25 | PC.NURSE ---
Assumed care of pt. Pt hypotensive with MAP in 40s, norepinephrine drip increased, pt tilted more into trendelenburg position. No response to extremities, per report pt has not moved any extremities. Pt is not on any sedation currently. Left pupil noted to be fixed and dilated, right pupil 2-3mm, reactive. Per report, this was pupil assessment upon arrival to ED as well. Waiting for head CT as soon as patient has more stable BP.
[2021-04-30 11:31] LABS: Lactic Acid Reflex 14.6 mmol/L (0.7-2.1)
[2021-04-30] MEDS: PIPERACILLIN/TAZOBACTAM SOD 4.5 GM in SODIUM CHLORIDE 0.9% IV 100 ML 200 ML IVPB (11:42)
[2021-04-30] MEDS: LACTATED RINGERS 1,000 ML 999 ML IV CONT (11:57)
--- NOTE | 2021-04-30 13:29 | PC.NURSE ---
Pt returned to room from head CT. MD Brandt came to bedside to evaluate patient. Per MD Brandt, give two amps of sodium bicarb and get an ABG. Orders read back then placed verbally. Pt noted to have gag reflex but continues to have no response to pain to any extremities and has not required any sedation.
[2021-04-30 13:30] LABS: Reflex Lactic Acid Yes or No Add Lactic
[2021-04-30] MEDS: SODIUM BICARBONATE 8.4% 50 MEQ/50 ML SYRINGE IV PUSH ×2 (13:46→13:47)
--- NOTE | 2021-04-30 14:00 | PM.IMHP ---
H&P: HPI History of Present Illness Date/Time: 04/30/21 14:00 Chief Complaint: Unresponsive without a pulse. Narrative: This is an unfortunate 76-year-old female with history of brain cancer status post radiation and resection of a right frontal lobe mass, seizures, dementia, and insulin-dependent diabetes who presented to the emergency department via EMS from [facility] for evaluation after she was found unresponsive without a pulse. The patient is well known to the hospitalist service with multiple admissions over the years. Most recently she was admitted between 04/15/2021 and 04/27/2021 with acute respiratory failure, septic shock, UTI, and pneumonia after presenting to the emergency department unresponsive. Today she was found unresponsive and without a pulse (reportedly in [facility]) at approximately 09:20. CPR was started by the skilled nursing staff and continued by EMS for approximately 30 to 35 minutes before she was transported to the emergency department. She was intubated in the field in according to EMS they suspect she may have aspirated due to the presence of food in the oropharynx. After several other rounds of CPR in the emergency department, return of spontaneous circulation was achieved. It is estimated that she had a down time of approximately 55 minutes. The emergency department physician spoke with her power of energy audit advisor who has changed the patient's code status to a do not resuscitate (no CPR) however they wish to continue with aggressive treatment at this time. Review of Systems Review of Systems: Unable to obtain given current clinical condition as above. FOR[facility]LY [facility] Past Medical History Medical History Chronic anemia Chronic GERD Chronic indwelling Hodge catheter Dementia Dysphagia Peg tube in-situ. Elevated transaminase level Appears chronic. 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 Surgical History Surgical History Gastrointestinal tube in situ (~02/2020) History of craniotomy Right frontal lobe craniotomy with resection of oligodendroglioma. Family History Family History Mother Diabetes mellitus Father Lung cancer Sibling Breast cancer she has Sibling Breast cancer Father Lung cancer Social History Social History (Updated 04/30/21 @ 21:02 by Nandini Parra PA-C) Social History: The patient is a resident at a local skilled nursing. She is a former smoker. No alcohol or illicit substance use. Julia Phelps is her healthcare power energy audit advisor. Code status: Full code. Meds Home Medications and Allergies Home Medications Medication Instructions Recorded Confirmed Type ascorbic acid (vitamin C) [Vitamin 500 mg FEEDING TUBE DAILY 03/16/20 04/30/21 History C] cholecalciferol (vitamin D3) 1,250 mcg FEEDING TUBE WEEKLY 03/17/20 04/30/21 History lactulose 15 ml FEEDING TUBE Q8H PRN 03/17/20 04/30/21 History Fleet Enema 118 ml RECTAL DAILY PRN 12/26/20 04/30/21 History umeclidinium-vilanterol 1 inh INHALATION DAILY PRN 12/26/20 04/30/21 History bisacodyl 10 mg RECTAL DAILY PRN 01/01/21 04/30/21 History d-mannose 500 mg DAILY 01/01/21 04/30/21 History diclofenac sodium 1 applic TOPICAL BID PRN 01/01/21 04/30/21 History magnesium citrate [Citroma] 296 ml FEEDING TUBE DAILY PRN 01/01/21 04/30/21 History magnesium hydroxide 30 ml FEEDING TUBE HS PRN 01/01/21 04/30/21 History ondansetron HCl 4 mg FEEDING TUBE Q6H PRN 01/01/21 04/30/21 History Basaglar KwikPen U-100 Insulin 40 unit SUBCUT HS 01/26/21 04/30/21 History Saccharomyces boulardii [Florastor] 250 mg FEEDING TUBE BID 01/26/21 04/30/21 History acetaminophen [Mapap 650 mg FEEDING TUBE Q8H PRN 02/28/21 04/30/21 Hist
--- NOTE | 2021-04-30 14:04 | WPDCNINT ---
Assessment and Plan Assessment and plan (1) Cardiac arrest: Code(s): I46.9 - Cardiac arrest, cause unspecified Status: Acute Assessment and Plan: I suspect this is primary respiratory event secondary to aspiration unwitnessed down time but estimated to be close to 45 minutes currently in shock serial troponins recent echocardiogram reviewed telemetry monitoring EKG done in ER was poor quality hence I will repeat it. (2) Encephalopathy acute: Code(s): G93.40 - Encephalopathy, unspecified Status: Acute Assessment and Plan: I suspect patient has anoxic brain injury. Patient had poor neurological function to start with at baseline. On last admission patient was nonverbal and did not follow any commands but was awake post extubation. 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 Her left pupil is dilated and fixed but I am not sure what exactly her baseline is. She still has cough reflex. unable to perform an MRI on a vented patient in [facility]. Patient had a unwitnessed cardiac arrest with non shockable rhythm with unknown downtime which is of likely respiratory etiology. Will start patient on moderate ET a.m. keep temperature below 36? C for next 24 hours will consult Neurology. Avoid sedatives. Will repeat head CT in the morning (3) Respiratory failure: Code(s): J96.90 - Respiratory failure, unspecified, unspecified whether with hypoxia or hypercapnia Status: Acute Assessment and Plan: Acute Respiratory failure secondary to cardiac arrest and suspected aspiration pneumonia Continue full mechanical ventilation support to prevent hypoxemia/hypercarbia and end organ damage. Vent settings reviewed and ABGs been. PCXR reviewed Low tidal volume ventilation strategy to prevent volutrauma Bronchodilators (4) Aspiration pneumonia: Qualifiers: Aspiration pneumonia type: unspecified Laterality: right Lung location: lower lobe of lung Qualified Code(s): J69.0 - Pneumonitis due to inhalation of food and vomit Code(s): J69.0 - Pneumonitis due to inhalation of food and vomit Status: Acute Assessment and Plan: Sputum and blood cultures empiric Zosyn COVID PCR is pending (5) Seizure: Code(s): R56.9 - Unspecified convulsions Status: Acute Assessment and Plan: continue Keppra (6) Insulin dependent type 2 diabetes mellitus: Code(s): E11.9 - Type 2 diabetes mellitus without complications; Z79.4 - intermediate (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 Patient received significant amount of IV fluids. Will repeat blood sugars and if needed patient may need IV insulin infusion (7) Dysphagia: Code(s): R13.10 - Dysphagia, unspecified Status: Acute Assessment and Plan: patient has PEG tube NPO at this time (8) Shock: Code(s): R57.9 - Shock, unspecified Status: Acute Assessment and Plan: likely a mixture of septic and cardiogenic after cardiac arrest continue Levophed titration add vasopressin add stress dose hydrocortisone patient has received 3 L in ER and I will give another 1 L bolus continue IV fluids monitor lactic acid level Additional Plan DVT prophylaxis - Lovenox Stress ulcer prophylaxis - PPI Nutrition - NPO at this Code Status - ED physician spoke to patient's POA and patient was made DNR after today's went. I spoke to staff at [facility] and she told me bed what they got out of her throat was actually Dried up mucus and not food. Total Critical Care Time - 40 minutes Due to a high probability of clinically significant, life threatening deterioration, the patient required my highest level of preparedness to intervene emergently and I personally spent this critical care
[2021-04-30 14:23] LABS: SARS-CoV-2 RNA PCR Negative
--- NOTE | 2021-04-30 14:26 | ECG_ITS ---
Measurements Intervals [place] Rate: 100 P: 69 LA: 152 QRS: -30 QRSD: 81 T: 45 QT: 361 QTc: 467 Interpretive Statements SINUS TACHYCARDIA VENTRICULAR PREMATURE COMPLEX LOW QRS VOLTAGE- DIFFUSE LEADS BORDERLINE R WAVE PROGRESSION, ANTERIOR LEADS MINIMAL Q WAVES- INFERIOR LEADS T WAVE ABNORMALITY IN ANTERIOR LEADS- CONSIDER ISCHEMIA ABNORMAL ECG Electronically Signed On 04-30-2021 20:35:15 WELFARE INVESTIGATOR by Bryon Reyes D.O.
[2021-04-30] MEDS: SODIUM CHLORIDE 0.9% IV 1,000 ML 999 ML IV CONT (14:29)
[2021-04-30 14:37] LABS: Glucose Point of Care 389 mg/dl (65-105)
[2021-04-30 14:57] LABS: Alveolar/Arterial O2 Gradient 302.6 mmHg; Base Excess ABG -0.9 mEq/l (+/-2.0); Fractional Inspired Oxygen 90 %; HCO3 ABG 24.2 mEq/l (22.0-26.0); Oxygen Content ABG 14.4 %vol (16.0-22.0); Oxygen Saturation ABG 99.7 % (95.0-100.0); Oxyhemoglobin 98.2 % THb (90.0-100.0); PCO2 ABG 42.3 mmHg (35.0-45.0); PO2 ABG 295.8 mmHg (80.0-100.0); PO2 FiO2 Ratio Arterial Blood 3.29 %; Total Hemoglobin 9.9 g/dL (12.0-18.0); pH ABG 7.376 (7.350-7.450)
[2021-04-30 15:02] LABS: Device VENTILATOR; Modified Allen's Test Pass; Site Drawn RIGHT RADIAL
[2021-04-30 15:03] LABS: Arterial Blood Gas PEEP 5 cmH2O; Arterial Blood Gas Tidal Volume 400 ml; Arterial Blood Gas Vent Mode CMV; Arterial Blood Gas Ventilator rate 20 /MIN
[2021-04-30] MEDS: SODIUM CHLORIDE 0.9% IV 1,000 ML 100 ML IV CONT (16:34)
[2021-04-30] MEDS: VASOPRESSIN INJ 100 UNITS in DEXTROSE 5% 95 ML IV CONT (16:35)
[2021-04-30] MEDS: NOREPINEPHRINE 8 MG/D5W 250 ML 8 MG/250 ML BAG 35.63 MG IV CONT (16:37)
[2021-04-30 16:43] LABS: Troponin I 0.393 ng/mL (0.000-0.034)
--- NOTE | 2021-04-30 16:44 | ADMGEN ---
This patient, Linette Vásquez, was admitted to Intensive Care Unit-9 at 1630. Patient/family oriented to hospital policies and general routines including ID bracelet, bed and alarms, visiting hours, pain management, procedures, bathroom and other care routines, personal items, smoking policy, room service/diet, and visiting hours. Information on how to activate the Rapid Response Team has been discussed. Patient/Family are encouraged to report perceived risks to care and to ask questions if they do not understand what they are told or what they should do.
[2021-04-30] MEDS: INSULIN ASPART (*BKC) 100 UNITS/ML SUB-Q ×2 (16:50→20:50)
[2021-04-30 17:06] LABS: Glucose Point of Care 375 mg/dl (65-105)
[2021-04-30 17:12] LABS: Lactic Acid 6.1 mmol/L (0.7-2.1)
[2021-04-30] MEDS: CENTRAL LINE FLUSH 10 ML IV PUSH ×2 (17:21→20:57)
[2021-04-30] MEDS: IPRATROPIUM BR 0.02% INH SOLN 0.5 MG/2.5 ML VIAL INHALATION (19:52)
[2021-04-30] MEDS: ALBUTEROL SULFATE NEB 2.5 MG/0.5 ML INH INHALATION (19:52)
[2021-04-30 20:52] LABS: Glucose Point of Care 391 mg/dl (65-105)
[2021-04-30] MEDS: levETIRAcetam ORAL SOL 500 MG/5 ML UDC FEED TUBE (20:56)
[2021-04-30] MEDS: HYDROCORTISONE SODIUM SUCCINATE 100 MG/2 ML VIAL IV PUSH (20:57)
[2021-04-30 23:17] LABS: Lactic Acid Reflex 8.3 mmol/L (0.7-2.1)
[2021-04-30] MEDS: NOREPINEPHRINE 8 MG/D5W 250 ML 8 MG/250 ML BAG 30 MG IV CONT (23:17)
[2021-04-30 23:34] LABS: Troponin I 0.217 ng/mL (0.000-0.034)
[2021-04-30 23:41] LABS: Glucose Point of Care 424 mg/dl (65-105)
[2021-05-01] VITALS (33 sets, daily range): BP systolic 102–165; BP diastolic 34–97; PULSE 73–96; RESP 20–32; TEMP 35.2–36.3; O2SAT 80–100; BMI 25.0
[2021-05-01] MEDS: INSULIN HUMAN REGULAR (*BKC) 100 UNITS in SODIUM CHLORIDE 0.9% IV 99 ML 7.3 UNITS IV CONT (00:38)
[2021-05-01] MEDS: SODIUM CHLORIDE 0.9% IV 1,000 ML 999 ML IV CONT (00:39)
[2021-05-01] MEDS: SODIUM CHLORIDE 0.9% IV 1,000 ML 100 ML IV CONT ×3 (00:52→21:50)
[2021-05-01] MEDS: IPRATROPIUM BR 0.02% INH SOLN 0.5 MG/2.5 ML VIAL INHALATION ×4 (01:54→20:32)
[2021-05-01] MEDS: ALBUTEROL SULFATE NEB 2.5 MG/0.5 ML INH INHALATION ×4 (01:54→20:32)
[2021-05-01 01:58] LABS: Reflex Lactic Acid Yes or No Add Lactic
[2021-05-01 02:08] LABS: Glucose Point of Care 358 mg/dl (65-105)
[2021-05-01 02:56] LABS: Add Urine Microscopic? YES; Appearance Urine Clear (Clear); Bacteria Urine Trace /hpf; Bilirubin Urine Negative (Negative); Blood Urine 1+ (Negative); Budding Yeast Urine Present /hpf; Color Urine Yellow (Yellow); Glucose Urine UA 3+ mg/dL (Negative); Ketones Urine Negative (Negative); Leukocyte Esterase Ur Trace LEU/UL (Negative); Nitrate Urine Negative (Negative); Protein Urine Negative (Negative); RBC Urine 21-50 /hpf (0-2); Specific Grav Ur 1.014 (1.001-1.035); Squamous Epithelial Cell Urine Rare /hpf (Few); Urobilinogen Urine Negative mg/dL (<2.0)
[2021-05-01 03:10] LABS: Glucose Point of Care 291 mg/dl (65-105)
[2021-05-01 04:11] LABS: Glucose Point of Care 257 mg/dl (65-105)
[2021-05-01 04:52] LABS: Alveolar/Arterial O2 Gradient 205.7 mmHg; Base Excess ABG -4.9 mEq/l (+/-2.0); Fractional Inspired Oxygen 50 %; HCO3 ABG 19.1 mEq/l (22.0-26.0); Oxygen Content ABG 15.6 %vol (16.0-22.0); Oxygen Saturation ABG 98.2 % (95.0-100.0); Oxyhemoglobin 96.8 % THb (90.0-100.0); PO2 ABG 114.8 mmHg (80.0-100.0); Total Hemoglobin 11.3 g/dL (12.0-18.0); pH ABG 7.394 (7.350-7.450)
[2021-05-01 04:53] LABS: Device VENTILATOR; Modified Allen's Test Pass; Site Drawn RIGHT RADIAL
[2021-05-01 04:54] LABS: Arterial Blood Gas PEEP 5 cmH2O; Arterial Blood Gas Tidal Volume 400 ml; Arterial Blood Gas Vent Mode CMV; Arterial Blood Gas Ventilator rate 20 /MIN
[2021-05-01 05:21] LABS: Glucose Point of Care 186 mg/dl (65-105)
[2021-05-01 05:22] LABS: Lactic Acid Reflex 6.4 mmol/L (0.7-2.1)
[2021-05-01 05:23] LABS: Alanine Aminotransferase 72 U/L (4-35); Albumin Level 3.3 g/dL (3.5-5.1); Alkaline Phosphatase 80 U/L (38-126); Anion Gap 12 mmol/L (8-16); Aspartate Amino Transferase 208 U/L (14-36); Bilirubin,Total 0.3 mg/dL (0.2-1.3); Blood Urea Nitrogen 26 mg/dL (7-17); Calcium 7.7 mg/dL (8.4-10.2); Carbon Dioxide 21 mmol/L (22-30); Chloride 111 mmol/L (98-107); Creatine Kinase 778 U/L (30-135); Estimated CRCL calculation 50 ml/min; Estimated Glomerular Filt Rate > 60; Glucose 220 mg/dL (65-110); Magnesium 1.9 mg/dL (1.6-2.3); Phosphorus 2.7 mg/dL (2.5-4.5); Potassium 3.2 mmol/L (3.4-5.0); Sodium 144 mmol/L (137-145)
[2021-05-01 05:46] LABS: Hematocrit 30.1 % (37.0-47.0); Hemoglobin 8.6 g/dL (12.0-15.0); Mean Corpuscular HGB Conc 28.6 g/dl (32-36); Mean Corpuscular Hemoglobin 25.5 pg (26-34); Mean Corpuscular Volume 89.3 fl (80-100); Platelet Count Result 384 k/mm3 (150-375); Red Blood Count 3.37 M/mm3 (4.2-5.4); Red Cell Distribution Width 20.1 % (11.5-14.5); White Blood Count 39.6 K/mm3 (4.5-10.0)
[2021-05-01] MEDS: HYDROCORTISONE SODIUM SUCCINATE 100 MG/2 ML VIAL IV PUSH ×3 (05:59→22:20)
[2021-05-01] MEDS: CENTRAL LINE FLUSH 10 ML IV PUSH ×4 (05:59→22:20)
[2021-05-01 06:08] LABS: Glucose Point of Care 157 mg/dl (65-105)
[2021-05-01 07:18] LABS: Glucose Point of Care 135 mg/dl (65-105)
[2021-05-01 08:07] LABS: Glucose Point of Care 130 mg/dl (65-105)
[2021-05-01 09:07] LABS: Glucose Point of Care 111 mg/dl (65-105)
[2021-05-01] MEDS: KCL 40 MEQ/WATER 100 ML 100 ML 25 ML IVPB (09:34)
[2021-05-01] MEDS: CHLORHEXIDINE GLUCONATE 0.12% ORAL RINSE 473 ML BTL (*BKC) 15 ML SWISH/SPIT ×2 (09:35→18:08)
[2021-05-01] MEDS: MUPIROCIN 2% OINT 22 GM TUBE 1 APPLIC TOPICAL (09:35)
[2021-05-01] MEDS: levETIRAcetam ORAL SOL 500 MG/5 ML UDC FEED TUBE ×2 (09:35→20:38)
[2021-05-01] MEDS: ENOXAPARIN 40 MG/0.4 ML SYRINGE SUB-Q (09:35)
[2021-05-01] MEDS: LACTATED RINGERS 1,000 ML 999 ML IV CONT (09:35)
[2021-05-01] MEDS: MINERAL OIL/WHITE PETROLATUM OINTMENT 1 APPLIC EACH EYE ×2 (09:35→22:20)
[2021-05-01] MEDS: PANTOPRAZOLE SODIUM IV 40 MG VIAL IV PUSH (09:36)
[2021-05-01 10:17] LABS: Glucose Point of Care 100 mg/dl (65-105)
[2021-05-01] MEDS: FENTANYL 2,500MCG/NS250ML(*CRX 2,500 MCG/250 ML BAG IV CONT (11:00)
[2021-05-01] MEDS: INSULIN GLARGINE (*BKC) 100 UNITS/ML 20 UNITS SUB-Q (11:05)
[2021-05-01 11:09] LABS: Glucose Point of Care 88 mg/dl (65-105)
[2021-05-01 11:46] LABS: Lactic Acid Reflex 2.7 mmol/L (0.7-2.1)
[2021-05-01 11:50] LABS: Glucose Point of Care 93 mg/dl (65-105)
--- NOTE | 2021-05-01 13:11 | WPDINTPN ---
Progress Note: A&P Assessment and Plan (1) Cardiac arrest: Code(s): I46.9 - Cardiac arrest, cause unspecified Status: Acute Assessment and Plan: I suspect this is primary respiratory event secondary to aspiration unwitnessed down time but estimated to be close to 45 minutes currently in shock Troponins plateaued recent echocardiogram reviewed telemetry monitoring Patient started on target temperature management, cooled to 36?C at 10:00 p.m. on 04/30/2020, will continue for 24 hours and degree warm to normal body temperature -once patient is rewarmed, will discontinue sedation (2) Encephalopathy acute: Code(s): G93.40 - Encephalopathy, unspecified Status: Acute Assessment and Plan: I suspect patient has anoxic brain injury. Patient had poor neurological function to start with at baseline. On last admission patient was nonverbal and did not follow any commands but was awake post extubation. 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 -left pupil is larger than the right but reactive - She still has cough reflex. unable to perform an MRI on a vented patient in [facility]. Patient had a unwitnessed cardiac arrest with non shockable rhythm with unknown downtime which is of likely respiratory etiology. will consult Neurology. Will repeat head CT in the morning (3) Respiratory failure: Code(s): J96.90 - Respiratory failure, unspecified, unspecified whether with hypoxia or hypercapnia Status: Acute Assessment and Plan: Acute Respiratory failure secondary to cardiac arrest and suspected aspiration pneumonia Continue full mechanical ventilation support to prevent hypoxemia/hypercarbia and end organ damage. Vent settings reviewed and ABGs been. PCXR reviewed Low tidal volume ventilation strategy to prevent volutrauma Bronchodilators (4) Aspiration pneumonia: Qualifiers: Aspiration pneumonia type: unspecified Laterality: right Lung location: lower lobe of lung Qualified Code(s): J69.0 - Pneumonitis due to inhalation of food and vomit Code(s): J69.0 - Pneumonitis due to inhalation of food and vomit Status: Acute Assessment and Plan: Sputum and blood cultures empiric Zosyn COVID PCR is negative (5) Seizure: Code(s): R56.9 - Unspecified convulsions Status: Acute Assessment and Plan: continue Keppra (6) Insulin dependent type 2 diabetes mellitus: Code(s): E11.9 - Type 2 diabetes mellitus without complications; Z79.4 - 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 Patient received significant amount of IV fluids. Will repeat blood sugars and if needed patient may need IV insulin infusion -patient was started IV insulin overnight and this morning patient's blood pressures have been in the low 100s -whilst transition insulin infusion to long-acting Lantus and sliding scale insulin -blood sugars closely -recent hemoglobin A1c was 6.9 on 03/07/2021 (7) Dysphagia: Code(s): R13.10 - Dysphagia, unspecified Status: Acute Assessment and Plan: patient has PEG tube NPO at this time (8) Shock: Code(s): R57.9 - Shock, unspecified Status: Acute Assessment and Plan: likely a mixture of septic and cardiogenic after cardiac arrest Continue Levophed and vasopressin, titrate to maintain mean arterial pressures greater than 65 mmHg Continue stress dose hydrocortisone patient has received 3 L in ER and 1 L IV fluid bolus in the ICU 04/19/2021 continue IV fluids monitor lactic acid level Additional Plan DVT prophylaxis - Lovenox Stress ulcer prophylaxis - PPI Nutrition - NPO at this Code Status - ED physician spoke to patient's POA and patient was made DNR Dr. Brandt spoke to staff at [facility] a
--- NOTE | 2021-05-01 13:27 | PCFNICU ---
ICU Rounding Note: Pt current nutrition is NPO . Nutrition recommendation: Vital AF 1.2 at 20 ml/hr advance by 10 ml q 4 hours to goal rate of 60 ml/hr and Robbie BID via Tube. Last recorded weight is 70.2 kg. Bowel Motility:+BM reported / Labs Reviewed:Glu 200,K 3.2,Alb 3.3,BUN 26, Hgb 8.6,Hct 30.1 Meds Noted:Keppra, Lantus, Levophed, Protonix, Zosyn, Atrovent, Vasopressin, Peridex. Skin: Stage II pressure ulcer-left heel and saccum Additional Notes: Patient current on mechanical vent. NPO at this time. Following daily in ICU rounds.
[2021-05-01 14:33] LABS: Reflex Lactic Acid Yes or No Add Lactic
[2021-05-01 16:20] LABS: Glucose Point of Care 170 mg/dl (65-105)
[2021-05-01 17:51] LABS: Glucose Point of Care 182 mg/dl (65-105)
[2021-05-01 23:58] LABS: Glucose Point of Care 206 mg/dl (65-105)
[2021-05-02] VITALS (30 sets, daily range): BP systolic 119–147; BP diastolic 53–87; PULSE 28–113; RESP 20–28; TEMP 35.8–37.8; O2SAT 95–99; BMI 25.2
[2021-05-02] MEDS: INSULIN ASPART (*BKC) 100 UNITS/ML SUB-Q ×2 (01:03→05:29)
[2021-05-02] MEDS: ALBUTEROL SULFATE NEB 2.5 MG/0.5 ML INH INHALATION ×4 (02:44→21:20)
[2021-05-02] MEDS: IPRATROPIUM BR 0.02% INH SOLN 0.5 MG/2.5 ML VIAL INHALATION ×4 (02:45→21:20)
[2021-05-02 04:48] LABS: Basophils Absolute Auto 0.1 K/mm3 (0.0-0.1); Basophils Percent Auto 0.2 % (0.2-1.2); Hematocrit 24.6 % (37.0-47.0); Hemoglobin 7.2 g/dL (12.0-15.0); Immature Granulocyte Absolute 0.39 K/mm3 (0.00-0.031); Immature Granulocyte Percent A 1.7 % (0-0.5); Lymphocytes Absolute Auto 1.04 K/mm3 (0.9-3.2); Lymphocytes Percent Auto 4.6 % (18.3-44.2); Mean Corpuscular HGB Conc 29.3 g/dl (32-36); Mean Corpuscular Hemoglobin 25.7 pg (26-34); Mean Corpuscular Volume 87.9 fl (80-100); Mean Platelet Volume 8.9 fl (7.4-10.4); Monocytes Percent Auto 4.2 % (2.6-8.5); Neutrophils Absolute Auto 20.3 K/mm3 (1.3-6.7); Neutrophils Percent Auto 89.3 % (45.5-73.1); Platelet Count Result 231 k/mm3 (150-375); Red Cell Distribution Width 20.3 % (11.5-14.5); White Blood Count 22.8 K/mm3 (4.5-10.0)
[2021-05-02 05:00] LABS: Alanine Aminotransferase 56 U/L (4-35); Albumin Level 2.8 g/dL (3.5-5.1); Alkaline Phosphatase 78 U/L (38-126); Anion Gap 2 mmol/L (8-16); Aspartate Amino Transferase 156 U/L (14-36); Bilirubin,Total 0.2 mg/dL (0.2-1.3); Blood Urea Nitrogen 18 mg/dL (7-17); Calcium 7.8 mg/dL (8.4-10.2); Carbon Dioxide 25 mmol/L (22-30); Chloride 117 mmol/L (98-107); Estimated CRCL calculation 56 ml/min; Estimated Glomerular Filt Rate > 60; Glucose 218 mg/dL (65-110); Potassium 3.2 mmol/L (3.4-5.0); Sodium 144 mmol/L (137-145)
[2021-05-02 05:14] LABS: Alveolar/Arterial O2 Gradient 146.9 mmHg; Base Excess ABG -2.2 mEq/l (+/-2.0); Carboxyhemoglobin 0.3 % THb (0-2.0); Device VENTILATOR; Fractional Inspired Oxygen 40 %; HCO3 ABG 21.9 mEq/l (22.0-26.0); Methemoglobin ABG 0.5 %THb (0-1.5); Modified Allen's Test Unable to perform; Oxygen Content ABG 11.2 %vol (16.0-22.0); Oxygen Saturation ABG 97.6 % (95.0-100.0); Oxyhemoglobin 95.7 % THb (90.0-100.0); PCO2 ABG 34.5 mmHg (35.0-45.0); PO2 ABG 98.6 mmHg (80.0-100.0); PO2 FiO2 Ratio Arterial Blood 2.46 %; Reduced Hemoglobin 3.5 %THb (0-5.0); Site Drawn LEFT RADIAL; Total Hemoglobin 8.2 g/dL (12.0-18.0); pH ABG 7.421 (7.350-7.450)
[2021-05-02 05:15] LABS: Arterial Blood Gas PEEP 5 cmH2O; Arterial Blood Gas Tidal Volume 400 ml; Arterial Blood Gas Vent Mode CMV; Arterial Blood Gas Ventilator rate 20 /MIN
[2021-05-02] MEDS: HYDROCORTISONE SODIUM SUCCINATE 100 MG/2 ML VIAL IV PUSH (05:31)
[2021-05-02] MEDS: CENTRAL LINE FLUSH 10 ML IV PUSH ×4 (05:31→20:35)
[2021-05-02] MEDS: SODIUM CHLORIDE 0.9% IV 1,000 ML 100 ML IV CONT ×2 (08:56→21:00)
[2021-05-02] MEDS: KCL 40 MEQ/WATER 100 ML 100 ML 25 ML IVPB (08:56)
[2021-05-02] MEDS: MUPIROCIN 2% OINT 22 GM TUBE 1 APPLIC TOPICAL (08:57)
[2021-05-02] MEDS: levETIRAcetam ORAL SOL 500 MG/5 ML UDC FEED TUBE ×2 (08:57→20:35)
[2021-05-02] MEDS: PANTOPRAZOLE SODIUM IV 40 MG VIAL IV PUSH (08:57)
[2021-05-02] MEDS: ENOXAPARIN 40 MG/0.4 ML SYRINGE SUB-Q (08:57)
[2021-05-02] MEDS: MINERAL OIL/WHITE PETROLATUM OINTMENT 1 APPLIC EACH EYE ×2 (08:58→20:35)
[2021-05-02] MEDS: CHLORHEXIDINE GLUCONATE 0.12% ORAL RINSE 473 ML BTL (*BKC) 15 ML SWISH/SPIT ×2 (08:59→18:03)
--- NOTE | 2021-05-02 11:27 | WPDNEURCNPN ---
Assessment and Plan Additional Plan treatment will be continued as such along with the obtain the repeat EEG Consult date: 05/02/21 HPI: Linette Vásquez is a 76 year old female, as to see because recently patient had cardiopulmonary arrest event due to probably aspiration though it was unwitnessed and the down time was estimated to be close [id number], troponins were plateaued , considering her neurological status as a baseline with persistent large calcified brain mass on the right side and status post right frontal craniotomy the situation was essentially unchanged but she was treated accordingly repeat MRI cannot be performed because she is on vent and had the unwitnessed cardiac arrest with known shock able rhythm and unknown down time Review of Systems Review of Systems: All systems reviewed & are unremarkable except as noted in HPI and below PMFSH Past Medical History Medical History Chronic anemia Chronic GERD Chronic indwelling Hodge catheter Dementia Dysphagia Peg tube in-situ. Elevated transaminase level Appears chronic. 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 Surgical History Surgical History Gastrointestinal tube in situ (~02/2020) History of craniotomy Right frontal lobe craniotomy with resection of oligodendroglioma. Family History Family History Mother Diabetes mellitus Father Lung cancer Sibling Breast cancer she has Sibling Breast cancer Father Lung cancer Social History Social History Social History: The patient is a resident at a local [facility]. She is a former smoker. No alcohol or illicit substance use. Julia Lenin is her healthcare power sports attorney. Code status: Full code. Meds Home Medications and Allergies Home Medications Medication Instructions Recorded Confirmed Type ascorbic acid (vitamin C) [Vitamin 500 mg FEEDING TUBE DAILY 03/16/20 04/30/21 History C] cholecalciferol (vitamin D3) 1,250 mcg FEEDING TUBE WEEKLY 03/17/20 04/30/21 History lactulose 15 ml FEEDING TUBE Q8H PRN 03/17/20 04/30/21 History Fleet Enema 118 ml RECTAL DAILY PRN 12/26/20 04/30/21 History umeclidinium-vilanterol 1 inh INHALATION DAILY PRN 12/26/20 04/30/21 History bisacodyl 10 mg RECTAL DAILY PRN 01/01/21 04/30/21 History d-mannose 500 mg DAILY 01/01/21 04/30/21 History diclofenac sodium 1 applic TOPICAL BID PRN 01/01/21 04/30/21 History magnesium citrate [Citroma] 296 ml FEEDING TUBE DAILY PRN 01/01/21 04/30/21 History magnesium hydroxide 30 ml FEEDING TUBE HS PRN 01/01/21 04/30/21 History ondansetron HCl 4 mg FEEDING TUBE Q6H PRN 01/01/21 04/30/21 History Basaglar KwikPen U-100 Insulin 40 unit SUBCUT HS 01/26/21 04/30/21 History Saccharomyces boulardii [Florastor] 250 mg FEEDING TUBE BID 01/26/21 04/30/21 History acetaminophen [Mapap 650 mg FEEDING TUBE Q8H PRN 02/28/21 04/30/21 History (acetaminophen)] chlorhexidine gluconate [Peridex] 15 ml BUCCAL BID 02/28/21 04/30/21 History insulin aspart U-100 [Novolog 1 sliding scale dose SUBCUT 02/28/21 04/30/21 History Flexpen U-100 Insulin] USEASDIRECTD levetiracetam 500 mg FEEDING TUBE Q12HR #60 ml 03/30/21 04/30/21 Rx topiramate [Topamax] 100 mg NOT APPLICABLE Q12HR #60 03/30/21 04/30/21 Rx tablet Santyl 1 applic TOPICAL DAILY 04/15/21 04/30/21 History esomeprazole magnesium 20 mg FEEDING TUBE DAILY 04/15/21 04/30/21 History mupirocin 1 applic TOPICAL DAILY 04/15/21 04/30/21 History bisacodyl 10 mg RECTAL QAM PRN #10 ea 04/27/21 04/30/21 Rx ipratropium bromide 0.5 mg INHALATION Q6HRT #30 vial 04/27/21 04/30/21 Rx levalbuterol HCl 0.63 mg INHALATION Q6HRT #30 vial 04/27/21
[2021-05-02 12:23] LABS: Glucose Point of Care 193 mg/dl (65-105)
--- NOTE | 2021-05-02 13:03 | WPDINTPN ---
Progress Note: A&P Assessment and Plan (1) Cardiac arrest: Code(s): I46.9 - Cardiac arrest, cause unspecified Status: Acute Assessment and Plan: I suspect this is primary respiratory event secondary to aspiration unwitnessed down time but estimated to be close to 45 minutes currently in shock Troponins plateaued recent echocardiogram reviewed telemetry monitoring Patient post target temperature management, currently really wound to normal body temperature -neurology evaluated the patient, will obtain EEG -continue to wean sedation to off (2) Encephalopathy acute: Code(s): G93.40 - Encephalopathy, unspecified Status: Acute Assessment and Plan: Given patient's down time during the cardiac arrest suspect patient may have anoxic brain injury. Patient had poor neurological function to start with at baseline. On last admission patient was nonverbal and did not follow any commands but was awake post extubation. 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 - unable to perform an MRI on a vented patient in [facility]. Patient had a unwitnessed cardiac arrest with non shockable rhythm with unknown downtime which is of likely respiratory etiology. -appreciate neurology following the patient, EEG has been obtained -CT head on admission: No change of large calcified brain mass since 04/15/2021; no acute intracranial findings since 04/15/2021 Fluid levels in some of the paranasal sinuses since 04/15/2021 (3) Respiratory failure: Code(s): J96.90 - Respiratory failure, unspecified, unspecified whether with hypoxia or hypercapnia Status: Acute Assessment and Plan: Acute Respiratory failure secondary to cardiac arrest and suspected aspiration pneumonia Continue full mechanical ventilation support to prevent hypoxemia/hypercarbia and end organ damage. Vent settings reviewed and ABGs been. Continue peep of 5 and 40% FiO2 PCXR reviewed Low tidal volume ventilation strategy to prevent volutrauma Bronchodilators (4) Aspiration pneumonia: Qualifiers: Aspiration pneumonia type: unspecified Laterality: right Lung location: lower lobe of lung Qualified Code(s): J69.0 - Pneumonitis due to inhalation of food and vomit Code(s): J69.0 - Pneumonitis due to inhalation of food and vomit Status: Acute Assessment and Plan: Sputum and blood cultures empiric Zosyn COVID PCR is negative (5) Seizure: Code(s): R56.9 - Unspecified convulsions Status: Acute Assessment and Plan: continue Dmitriy (6) Insulin dependent type 2 diabetes mellitus: Code(s): E11.9 - Type 2 diabetes mellitus without complications; 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 Patient received significant amount of IV fluids. Will repeat blood sugars and if needed patient may need IV insulin infusion -patient was started IV insulin overnight and this morning patient's blood pressures have been in the low 100s -whilst transition insulin infusion to long-acting Lantus and sliding scale insulin -blood sugars closely -recent hemoglobin A1c was 6.9 on 03/07/2021 (7) Dysphagia: Code(s): R13.10 - Dysphagia, unspecified Status: Acute Assessment and Plan: patient has PEG tube Will start tube feeds (8) Shock: Code(s): R57.9 - Shock, unspecified Status: Acute Assessment and Plan: likely a mixture of septic and cardiogenic after cardiac arrest Patient has been off pressors since being rewarmed Start weaning stress dose steroids patient has received 3 L in ER and 1 L IV fluid bolus in the ICU 04/19/2021 continue IV fluids monitor lactic acid level Additional Plan DVT prophylaxis - Lovenox Stress ulcer prophylaxis - PPI Nutrition - NPO at this Code Status - ED ph
[2021-05-02 18:13] LABS: Glucose Point of Care 183 mg/dl (65-105)
[2021-05-02] MEDS: HYDROCORTISONE SODIUM SUCCINATE 100 MG/2 ML VIAL 50 MG IV PUSH (20:34)
[2021-05-03] VITALS (30 sets, daily range): BP systolic 129–166; BP diastolic 58–116; PULSE 96–128; RESP 22–32; TEMP 37.1–37.9; O2SAT 96–100
[2021-05-03] MEDS: INSULIN ASPART (*BKC) 100 UNITS/ML SUB-Q ×5 (00:10→23:41)
[2021-05-03 00:43] LABS: Glucose Point of Care 227 mg/dl (65-105)
[2021-05-03] MEDS: ALBUTEROL SULFATE NEB 2.5 MG/0.5 ML INH INHALATION ×3 (03:00→20:03)
[2021-05-03 05:12] LABS: Alveolar/Arterial O2 Gradient 74.1 mmHg; Base Excess ABG -1.1 mEq/l (+/-2.0); Carboxyhemoglobin 0.3 % THb (0-2.0); Fractional Inspired Oxygen 35 %; HCO3 ABG 20.8 mEq/l (22.0-26.0); Methemoglobin ABG 0.5 %THb (0-1.5); Oxygen Content ABG 12.1 %vol (16.0-22.0); Oxygen Saturation ABG 99.2 % (95.0-100.0); Oxyhemoglobin 97.4 % THb (90.0-100.0); PCO2 ABG 24.9 mmHg (35.0-45.0); PO2 ABG 146.5 mmHg (80.0-100.0); PO2 FiO2 Ratio Arterial Blood 4.19 %; Reduced Hemoglobin 1.8 %THb (0-5.0); Total Hemoglobin 8.6 g/dL (12.0-18.0)
[2021-05-03 05:15] LABS: Arterial Blood Gas Ventilator rate 20 /MIN; Device VENTILATOR; Modified Allen's Test Pass; Site Drawn LEFT RADIAL; pH ABG 7.539 (7.350-7.450)
[2021-05-03 05:16] LABS: Arterial Blood Gas PEEP 5 cmH2O; Arterial Blood Gas Tidal Volume 400 ml; Arterial Blood Gas Vent Mode CMV
[2021-05-03 05:30] LABS: Basophils Percent Auto 0.1 % (0.2-1.2); Eosinophils Percent Auto 0.1 % (0-4.4); Hematocrit 25.1 % (37.0-47.0); Hemoglobin 7.4 g/dL (12.0-15.0); Immature Granulocyte Absolute 0.36 K/mm3 (0.00-0.031); Immature Granulocyte Percent A 1.8 % (0-0.5); Lymphocytes Absolute Auto 1.88 K/mm3 (0.9-3.2); Lymphocytes Percent Auto 9.6 % (18.3-44.2); Mean Corpuscular HGB Conc 29.5 g/dl (32-36); Mean Corpuscular Hemoglobin 25.3 pg (26-34); Mean Corpuscular Volume 85.7 fl (80-100); Mean Platelet Volume 9.1 fl (7.4-10.4); Monocytes Absolute Auto 0.7 K/mm3 (0.1-0.6); Monocytes Percent Auto 3.7 % (2.6-8.5); Neutrophils Absolute Auto 16.7 K/mm3 (1.3-6.7); Neutrophils Percent Auto 84.7 % (45.5-73.1); Platelet Count Result 271 k/mm3 (150-375); Red Blood Count 2.93 M/mm3 (4.2-5.4); Red Cell Distribution Width 20.1 % (11.5-14.5); White Blood Count 19.7 K/mm3 (4.5-10.0)
[2021-05-03 05:41] LABS: Alanine Aminotransferase 44 U/L (4-35); Alkaline Phosphatase 95 U/L (38-126); Anion Gap 6 mmol/L (8-16); Aspartate Amino Transferase 103 U/L (14-36); Bilirubin,Total 0.3 mg/dL (0.2-1.3); Blood Urea Nitrogen 14 mg/dL (7-17); Calcium 8.1 mg/dL (8.4-10.2); Carbon Dioxide 22 mmol/L (22-30); Chloride 117 mmol/L (98-107); Estimated CRCL calculation 56 ml/min; Estimated Glomerular Filt Rate > 60; Glucose 251 mg/dL (65-110); Magnesium 1.9 mg/dL (1.6-2.3); Phosphorus 1.9 mg/dL (2.5-4.5); Potassium 2.3 mmol/L (3.4-5.0); Sodium 145 mmol/L (137-145)
[2021-05-03] MEDS: CENTRAL LINE FLUSH 10 ML IV PUSH ×4 (05:43→21:08)
[2021-05-03] MEDS: KCL 40 MEQ/WATER 100 ML 100 ML 25 ML IVPB ×2 (06:31→16:09)
[2021-05-03] MEDS: SODIUM CHLORIDE 0.9% IV 1,000 ML 100 ML IV CONT (08:39)
[2021-05-03] MEDS: HYDROCORTISONE SODIUM SUCCINATE 100 MG/2 ML VIAL 50 MG IV PUSH ×2 (08:39→21:00)
[2021-05-03] MEDS: MINERAL OIL/WHITE PETROLATUM OINTMENT 1 APPLIC EACH EYE ×2 (08:40→21:00)
[2021-05-03] MEDS: levETIRAcetam ORAL SOL 500 MG/5 ML UDC FEED TUBE ×2 (08:40→21:00)
[2021-05-03] MEDS: INSULIN GLARGINE (*BKC) 100 UNITS/ML 26 UNITS SUB-Q (08:40)
[2021-05-03] MEDS: CHLORHEXIDINE GLUCONATE 0.12% ORAL RINSE 473 ML BTL (*BKC) 15 ML SWISH/SPIT ×2 (08:40→16:09)
[2021-05-03] MEDS: PANTOPRAZOLE SODIUM IV 40 MG VIAL IV PUSH (08:40)
[2021-05-03] MEDS: ENOXAPARIN 40 MG/0.4 ML SYRINGE SUB-Q (08:40)
[2021-05-03] MEDS: MUPIROCIN 2% OINT 22 GM TUBE 1 APPLIC TOPICAL (08:41)
[2021-05-03] MEDS: IPRATROPIUM BR 0.02% INH SOLN 0.5 MG/2.5 ML VIAL INHALATION ×2 (08:53→20:04)
[2021-05-03] MEDS: POTASSIUM CHLORIDE 20 MEQ PACKET (FOR LIQUID) 80 MEQ FEED TUBE (09:25)
[2021-05-03] MEDS: POTASSIUM/PHOSPHORUS/SODIUM 1.5 GM PACKET 1 PACKET PO (09:25)
--- NOTE | 2021-05-03 09:37 | P.NEURO_ITS ---
Neurology EEG Report General Information Date of Study: 05/03/21 TEST eeg DIAGNOSIS Status post cardiac arrest with encephalopathy CONDITION OF RECORDING comatose EEG NUMBER [id number] CLINICAL HISTORY patient was [facility] unresponsive at shelter [facility] days ago. Has been on vent in ICU without sedation since then. Patient was on hypothermia treatment but has been back to normal temperature for over 24 hours. EEG DESCRIPTION Hold record consists of no electrical cerebral activity. Non paroxysmal. Nonfocal. Nonlateralizing. IMPRESSION No evidence of cortical activity
--- NOTE | 2021-05-03 11:28 | WPDNEUROPN ---
Progress Note: A&P Additional Plan supportive care as such no evidence of status on EEG in fact the cortical activities absent Subjective Date/time seen: 05/03/21 11:28 is status post cardiac arrest is suspicion of primary respiratory events secondary to aspiration but down close to 45 minutes, EEG reviewed with no evidence of cortical activity throughout the tracing Review of Systems Review of Systems: All systems reviewed & are unremarkable except as noted in HPI and below Exam Narrative: examination revealed her to be unresponsive, intubated on mechanical ventilation with coarse breath sounds regular heartbeat bilateral pitting edema known organomegaly on palpation neurological and isocoria sluggishly reacting to light no dolls no spontaneous movements of the upper and lower extremities and reflexes are down plantars are upgoing Objective Data Vital Signs Vital Signs: Vital Signs - 24 hr 05/02/21 12:00 05/02/21 12:21 05/02/21 14:00 Temperature 35.9 C L Pulse Rate 92 92 95 Respiratory Rate 20 20 Blood Pressure 132/68 142/67 H Pulse Oximetry 99 99 99 05/02/21 14:28 05/02/21 14:29 05/02/21 14:36 Temperature Pulse Rate 99 95 95 Respiratory Rate 20 21 H Blood Pressure Pulse Oximetry 99 05/02/21 16:00 05/02/21 17:03 05/02/21 18:00 Temperature 36.6 C 36.9 C Pulse Rate 95 98 28 L Respiratory Rate 27 H 28 H Blood Pressure 135/71 143/69 H Pulse Oximetry 99 95 95 05/02/21 20:00 05/02/21 21:13 05/02/21 21:23 Temperature 37.3 C Pulse Rate 102 H 110 H 110 H Respiratory Rate 27 H 23 H Blood Pressure 144/77 H Pulse Oximetry 95 97 05/02/21 21:29 05/02/21 22:00 05/03/21 00:00 Temperature 37.8 C H 37.9 C H Pulse Rate 113 H 109 H 123 H Respiratory Rate 22 H 21 H 32 H Blood Pressure 147/87 H 134/116 H Pulse Oximetry 98 100 05/03/21 00:21 05/03/21 02:00 05/03/21 02:50 Temperature 37.7 C H Pulse Rate 126 H 126 H 126 H Respiratory Rate 30 H Blood Pressure 163/100 H Pulse Oximetry 96 99 96 05/03/21 03:10 05/03/21 04:00 05/03/21 05:47 Temperature 37.5 C Pulse Rate 111 H 122 H 122 H Respiratory Rate 23 H 31 H Blood Pressure 155/86 H Pulse Oximetry 100 100 05/03/21 06:00 05/03/21 08:45 05/03/21 08:54 Temperature 37.4 C Pulse Rate 116 H 116 H 116 H Respiratory Rate 31 H 23 H Blood Pressure 166/75 H Pulse Oximetry 99 98 05/03/21 08:57 Temperature Pulse Rate 116 H Respiratory Rate 23 H Blood Pressure Pulse Oximetry Intake/Output Intake/Output: Intake & Output 04/30/21 05/01/21 05/02/21 05/03/21 23:59 23:59 23:59 23:59 Intake Total 1650 3240 2470 1461 Output Total 760 1365 1840 1325 Balance 890 1875 630 136 Meds/Results Medications: Active Medications Generic Name Dose Route Start Last Admin Trade Name Freq PRN Reason Stop Dose Admin Albuterol 2.5 mg 04/30/21 20:00 05/03/21 08:45 Albuterol Sulfate Neb 2.5 Mg/0.5 Ml Inh INHALATION 2.5 mg Q6HRT BRYCE Administration Chlorhexidine Gluconate 15 ml 05/01/21 09:00 05/03/21 08:40 Chlorhexidine Gluconate 0.12% Oral Rinse 473 Ml Btl (*Bkc) SWISH/SPIT 15 ml BID BRYCE Administration Dextrose 12.5 gm 05/01/21 10:23 Dextrose 50% 25 Gm/50 Ml Syringe IV PUSH PRN PRN Hypoglycemia Protocol Enoxaparin Sodium 40 mg 05/01/21 09:00 05/03/21 08:40 Enoxaparin 40 Mg/0.4 Ml Syringe SUB-Q 40 mg DAILY BRYCE Administration Glucagon 1 mg 05/01/21 10:23 Glucagon For Inj 1 Mg Vial IM PRN PRN Hypoglycemia Protocol Glucose 15 gm 05/01/21 10:23 Glucose Oral Gel 15 Gm Of Glucse In 37.5 Gm Tube PO PRN PRN Hypoglycemia Protocol Hydrocortisone Sodium Succinate 50 mg 05/02/21 20:00 05/03/21 08:39 Hydrocortisone Sodium Succinate 100 Mg/2 Ml Vial IV PUSH 05/03/21 23:59 50 mg Q12H BRYCE Administration Norepinephrine Bitartrate 8 mg in 250 mls @ 0 mls/hr 05/01/21 06:12 05/02/21 08:34 Levophed 8 Mg/D5w 250
[2021-05-03 12:10] LABS: Glucose Point of Care 266 mg/dl (65-105)
--- NOTE | 2021-05-03 13:07 | PCFNICU ---
ICU Rounding Note: Pt current nutrition is Vital AF 1.2 at 50 ml/hr over 22 hours Last recorded weight is 68.3 kg, down from 70.2 kg on admit. Bowel Motility:+BM reported 04/30 Labs Reviewed:K 2.3,Alb 3.0,Hct 25.1,Hgb 7.4 Meds Noted:Keppra, Protonix, Levophed, Lantus,Lovenox,Atrovent, Zosyn, Vancomycin, Fentanyl. Skin: stage II PU-left heel and saccum. Additional Notes: Patient remains on tube feedings of Vital AF 1.2 at 50 ml/hr, goal rate 60 ml/hr and tolerating per nursing. Free water flush 30 ml q 4 hours. Neuro consult-EEG ordered. Agree with diet orders. Following daily in ICU rounds. Will monitor every Friday and Friday.
--- NOTE | 2021-05-03 13:27 | WPDINTPN ---
Progress Note: A&P Assessment and Plan (1) Cardiac arrest: Code(s): I46.9 - Cardiac arrest, cause unspecified Status: Acute Assessment and Plan: I suspect this is primary respiratory event secondary to aspiration unwitnessed down time but estimated to be close to 45 minutes currently in shock Troponins plateaued recent echocardiogram reviewed telemetry monitoring Patient post target temperature management, currently really wound to normal body temperature -appreciate Neurology evaluation, -: EEG showed no evidence of cortical activity, will discuss with family -patient is completely off sedation (2) Encephalopathy acute: Code(s): G93.40 - Encephalopathy, unspecified Status: Acute Assessment and Plan: Given patient's down time during the cardiac arrest suspect patient may have anoxic brain injury. Patient had poor neurological function to start with at baseline. On last admission patient was nonverbal and did not follow any commands but was awake post extubation. 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 - unable to perform an MRI on a vented patient in [facility]. Patient had a unwitnessed cardiac arrest with non shockable rhythm with unknown downtime which is of likely respiratory etiology. -appreciate neurology following the patient, EEG has been obtained -CT head on admission: No change of large calcified brain mass since 04/15/2021; no acute intracranial findings since 04/15/2021 Fluid levels in some of the paranasal sinuses since 04/15/2021 (3) Respiratory failure: Code(s): J96.90 - Respiratory failure, unspecified, unspecified whether with hypoxia or hypercapnia Status: Acute Assessment and Plan: Acute Respiratory failure secondary to cardiac arrest and suspected aspiration pneumonia Continue full mechanical ventilation support to prevent hypoxemia/hypercarbia and end organ damage. Vent settings reviewed and ABGs been. Continue peep of 5 and 35% FiO2 PCXR reviewed Low tidal volume ventilation strategy to prevent volutrauma Bronchodilators (4) Aspiration pneumonia: Qualifiers: Aspiration pneumonia type: unspecified Laterality: right Lung location: lower lobe of lung Qualified Code(s): J69.0 - Pneumonitis due to inhalation of food and vomit Code(s): J69.0 - Pneumonitis due to inhalation of food and vomit Status: Acute Assessment and Plan: Sputum and blood cultures empiric Zosyn COVID PCR is negative (5) Seizure: Code(s): R56.9 - Unspecified convulsions Status: Acute Assessment and Plan: continue Keppra (6) Insulin dependent type 2 diabetes mellitus: Code(s): E11.9 - Type 2 diabetes mellitus without complications; Z79.4 - [facility] (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 Patient received significant amount of IV fluids. Will repeat blood sugars and if needed patient may need IV insulin infusion -patient was started IV insulin overnight and this morning patient's blood pressures have been in the low 100s -whilst transition insulin infusion to long-acting Lantus and sliding scale insulin -blood sugars closely -recent hemoglobin A1c was 6.9 on 03/07/2021 (7) Dysphagia: Code(s): R13.10 - Dysphagia, unspecified Status: Acute Assessment and Plan: patient has PEG tube Will start tube feeds (8) Shock: Code(s): R57.9 - Shock, unspecified Status: Acute Assessment and Plan: likely a mixture of septic and cardiogenic after cardiac arrest Patient has been off pressors since being rewarmed Start weaning stress dose steroids patient has received 3 L in ER and 1 L IV fluid bolus in the ICU 04/19/2021 Additional Plan DVT prophylaxis - Lovenox Stress ulcer prophylaxis - PPI Nutrition -tolerating
[2021-05-03 14:46] LABS: Anion Gap 4 mmol/L (8-16); Blood Urea Nitrogen 14 mg/dL (7-17); Calcium 7.9 mg/dL (8.4-10.2); Carbon Dioxide 21 mmol/L (22-30); Chloride 118 mmol/L (98-107); Estimated CRCL calculation 56 ml/min; Estimated Glomerular Filt Rate > 60; Glucose 252 mg/dL (65-110); Potassium 3.3 mmol/L (3.4-5.0); Sodium 143 mmol/L (137-145)
[2021-05-03 17:54] LABS: Glucose Point of Care 237 mg/dl (65-105)
[2021-05-03 23:58] LABS: Glucose Point of Care 206 mg/dl (65-105)
[2021-05-04] VITALS (28 sets, daily range): BP systolic 101–138; BP diastolic 49–81; PULSE 92–109; RESP 18–30; TEMP 36.1–37.4; O2SAT 95–98
[2021-05-04] MEDS: IPRATROPIUM BR 0.02% INH SOLN 0.5 MG/2.5 ML VIAL INHALATION ×4 (02:16→20:24)
[2021-05-04] MEDS: ALBUTEROL SULFATE NEB 2.5 MG/0.5 ML INH INHALATION ×4 (02:16→20:24)
[2021-05-04 04:41] LABS: Alveolar/Arterial O2 Gradient 97.8 mmHg; Carboxyhemoglobin 0.3 % THb (0-2.0); Fractional Inspired Oxygen 30 %; HCO3 ABG 21.6 mEq/l (22.0-26.0); Methemoglobin ABG 0.6 %THb (0-1.5); Oxygen Content ABG 9.7 %vol (16.0-22.0); Oxygen Saturation ABG 96.4 % (95.0-100.0); Oxyhemoglobin 93.6 % THb (90.0-100.0); PCO2 ABG 31.4 mmHg (35.0-45.0); PO2 ABG 79.2 mmHg (80.0-100.0); PO2 FiO2 Ratio Arterial Blood 2.64 %; Reduced Hemoglobin 5.5 %THb (0-5.0); pH ABG 7.455 (7.350-7.450)
[2021-05-04 04:44] LABS: Device VENTILATOR; Modified Allen's Test Pass; Site Drawn RIGHT RADIAL; Total Hemoglobin 7.3 g/dL (12.0-18.0)
[2021-05-04 04:45] LABS: Arterial Blood Gas PEEP 5 cmH2O; Arterial Blood Gas Tidal Volume 400 ml; Arterial Blood Gas Vent Mode CMV; Arterial Blood Gas Ventilator rate 20 /MIN
[2021-05-04 05:21] LABS: Basophils Percent Auto 0.3 % (0.2-1.2); Eosinophils Percent Auto 0.1 % (0-4.4); Hematocrit 23.1 % (37.0-47.0); Immature Granulocyte Absolute 0.06 K/mm3 (0.00-0.031); Immature Granulocyte Percent A 0.4 % (0-0.5); Lymphocytes Absolute Auto 0.97 K/mm3 (0.9-3.2); Lymphocytes Percent Auto 6.7 % (18.3-44.2); Mean Corpuscular HGB Conc 29.4 g/dl (32-36); Mean Corpuscular Hemoglobin 25.6 pg (26-34); Mean Corpuscular Volume 86.8 fl (80-100); Mean Platelet Volume 9.4 fl (7.4-10.4); Monocytes Absolute Auto 0.5 K/mm3 (0.1-0.6); Monocytes Percent Auto 3.2 % (2.6-8.5); Neutrophils Absolute Auto 12.9 K/mm3 (1.3-6.7); Neutrophils Percent Auto 89.3 % (45.5-73.1); Platelet Count Result 231 k/mm3 (150-375); Red Blood Count 2.66 M/mm3 (4.2-5.4); Red Cell Distribution Width 20.2 % (11.5-14.5); White Blood Count 14.5 K/mm3 (4.5-10.0)
[2021-05-04] MEDS: CENTRAL LINE FLUSH 10 ML IV PUSH ×4 (05:40→21:16)
[2021-05-04 05:41] LABS: Alanine Aminotransferase 32 U/L (4-35); Albumin Level 2.8 g/dL (3.5-5.1); Alkaline Phosphatase 96 U/L (38-126); Anion Gap 8 mmol/L (8-16); Aspartate Amino Transferase 53 U/L (14-36); Bilirubin,Total 0.3 mg/dL (0.2-1.3); Blood Urea Nitrogen 22 mg/dL (7-17); Calcium 8.2 mg/dL (8.4-10.2); Carbon Dioxide 23 mmol/L (22-30); Chloride 112 mmol/L (98-107); Estimated CRCL calculation 64 ml/min; Estimated Glomerular Filt Rate > 60; Glucose 338 mg/dL (65-110); Magnesium 1.8 mg/dL (1.6-2.3); Phosphorus 2.1 mg/dL (2.5-4.5); Potassium 2.9 mmol/L (3.4-5.0); Sodium 143 mmol/L (137-145)
[2021-05-04 05:57] LABS: Hemoglobin 6.8 g/dL (12.0-15.0)
[2021-05-04] MEDS: POTASSIUM CHLORIDE 20 MEQ PACKET (FOR LIQUID) 40 MEQ FEED TUBE (06:54)
[2021-05-04] MEDS: INSULIN ASPART (*BKC) 100 UNITS/ML SUB-Q ×4 (06:54→23:45)
[2021-05-04 07:06] LABS: Glucose Point of Care 299 mg/dl (65-105)
--- NOTE | 2021-05-04 07:30 | PC.NURSE ---
RN attempted to reach family for blood consent, left message for Brother Ed and Niece Julia to call ICU back.
[2021-05-04] MEDS: KCL 40 MEQ/WATER 100 ML 100 ML 25 ML IVPB (08:39)
[2021-05-04] MEDS: levETIRAcetam ORAL SOL 500 MG/5 ML UDC FEED TUBE ×2 (08:39→20:42)
[2021-05-04] MEDS: PANTOPRAZOLE SODIUM IV 40 MG VIAL IV PUSH (08:39)
[2021-05-04] MEDS: INSULIN GLARGINE (*BKC) 100 UNITS/ML 40 UNITS SUB-Q (08:42)
[2021-05-04] MEDS: CHLORHEXIDINE GLUCONATE 0.12% ORAL RINSE 473 ML BTL (*BKC) 15 ML SWISH/SPIT ×2 (08:43→17:20)
[2021-05-04] MEDS: MUPIROCIN 2% OINT 22 GM TUBE 1 APPLIC TOPICAL (08:43)
[2021-05-04] MEDS: MINERAL OIL/WHITE PETROLATUM OINTMENT 1 APPLIC EACH EYE ×2 (08:43→20:42)
[2021-05-04 12:20] LABS: Glucose Point of Care 311 mg/dl (65-105)
--- NOTE | 2021-05-04 13:12 | PCNFU ---
Nutrition Follow-Up Complete: Inadequate Oral Intake as related to intubation as evidenced by NPO. Goal: Meet estimated nutritional needs Patient will continue with current goal. Pt current nutrition is Vital AF 1.2 at 60 ml/hr over 22 hours. Last recorded weight is 67.7 kg, down from 70.2 kg on admit. Bowel Motility:+BM reported 05/04 Labs Reviewed:K 2.9,BUN 22, Glu 338, Hct 23.1,Hgb 6.8,BUN 22, PO4 2.1 Meds Noted:Keppra,Lantus, Zosyn, NovoLog, Protonix, Vancomycin. Skin: Stage II PU-left heel and saccum Additional Notes: Patient remains on mechanical vent and tube feedings of Vital AF 1.2 at 60 ml/hr over 22hours and tolerating. Current tube feeding is meeting 100% of caloric needs and 100% of protein needs. Free water flush 30 ml q 4 hours. Protein Modular of Robbie BID given for wound healing providing an additional 90 kcals and 2.5 gms protein. Agree with diet orders. Will monitor in ICU rounds and reassessing every Friday and Friday.
--- NOTE | 2021-05-04 13:27 | WPDINTPN ---
Progress Note: A&P Assessment and Plan (1) Cardiac arrest: Code(s): I46.9 - Cardiac arrest, cause unspecified Status: Acute Assessment and Plan: I suspect this is primary respiratory event secondary to aspiration estimated to be close to 45 minutes Shock has resolved Troponins plateaued recent echocardiogram reviewed Patient post target temperature management, was appropriately cold and rewarmed -appreciate Neurology evaluation, -: EEG showed no evidence of cortical activity -patient is completely off sedation (2) Encephalopathy acute: Code(s): G93.40 - Encephalopathy, unspecified Status: Acute Assessment and Plan: Given patient's down time during the cardiac arrest suspect patient may have anoxic brain injury. Patient had poor neurological function to start with at baseline. On last admission patient was nonverbal and did not follow any commands but was awake post extubation. 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 - unable to perform an MRI on a vented patient in [facility]. Patient had a unwitnessed cardiac arrest with non shockable rhythm with unknown downtime which is of likely respiratory etiology. -appreciate neurology following the patient, EEG as above -CT head on admission: No change of large calcified brain mass since 04/15/2021; no acute intracranial findings since 04/15/2021 Fluid levels in some of the paranasal sinuses since 04/15/2021 (3) Respiratory failure: Code(s): J96.90 - Respiratory failure, unspecified, unspecified whether with hypoxia or hypercapnia Status: Acute Assessment and Plan: Acute Respiratory failure secondary to cardiac arrest and suspected aspiration pneumonia Continue full mechanical ventilation support to prevent hypoxemia/hypercarbia and end organ damage. Vent settings reviewed and ABGs been. Continue peep of 5 and 30% FiO2 PCXR reviewed Low tidal volume ventilation strategy to prevent volutrauma Bronchodilators (4) Aspiration pneumonia: Qualifiers: Aspiration pneumonia type: unspecified Laterality: right Lung location: lower lobe of lung Qualified Code(s): J69.0 - Pneumonitis due to inhalation of food and vomit Code(s): J69.0 - Pneumonitis due to inhalation of food and vomit Status: Acute Assessment and Plan: Sputum and blood cultures empiric Zosyn COVID PCR is negative (5) Seizure: Code(s): R56.9 - Unspecified convulsions Status: Acute Assessment and Plan: continue Dmitriy (6) Insulin dependent type 2 diabetes mellitus: Code(s): E11.9 - Type 2 diabetes mellitus without complications; Z79.4 - [facility] (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 Patient received significant amount of IV fluids. Will repeat blood sugars and if needed patient may need IV insulin infusion -patient was started IV insulin overnight and this morning patient's blood pressures have been in the low 100s -whilst transition insulin infusion to long-acting Lantus and sliding scale insulin -blood sugars closely -recent hemoglobin A1c was 6.9 on 03/07/2021 (7) Dysphagia: Code(s): R13.10 - Dysphagia, unspecified Status: Acute Assessment and Plan: patient has PEG tube Will start tube feeds (8) Shock: Code(s): R57.9 - Shock, unspecified Status: Acute Assessment and Plan: likely a mixture of septic and cardiogenic after cardiac arrest Patient has been off pressors since being rewarmed OFF stress dose steroids -continue Zosyn (04/30), vancomycin (05/02) patient has received 3 L in ER and 1 L IV fluid bolus in the ICU 04/19/2021 Additional Plan DVT prophylaxis - Lovenox Stress ulcer prophylaxis - PPI Nutrition -tolerating tube feeds Code Status - ED physician spoke to patient's POA and
[2021-05-04 17:21] LABS: Glucose Point of Care 262 mg/dl (65-105)
--- NOTE | 2021-05-04 17:23 | PM.IMPN ---
Progress Note: A&P Assessment and Plan (1) Cardiac arrest: Code(s): I46.9 - Cardiac arrest, cause unspecified Status: Acute Assessment and Plan: I suspect this is primary respiratory event secondary to aspiration estimated to be close to 45 minutes Shock has resolved Troponins plateaued recent echocardiogram reviewed Patient post target temperature management, was appropriately cold and rewarmed -appreciate Neurology evaluation, -: EEG showed no evidence of cortical activity -patient is completely off sedation (2) Encephalopathy acute: Code(s): G93.40 - Encephalopathy, unspecified Status: Acute Assessment and Plan: Given patient's down time during the cardiac arrest suspect patient may have anoxic brain injury. Patient had poor neurological function to start with at baseline. On last admission patient was nonverbal and did not follow any commands but was awake post extubation. 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 - unable to perform an MRI on a vented patient in [facility]. Patient had a unwitnessed cardiac arrest with non shockable rhythm with unknown downtime which is of likely respiratory etiology. -appreciate neurology following the patient, EEG as above -CT head on admission: No change of large calcified brain mass since 04/15/2021; no acute intracranial findings since 04/15/2021 Fluid levels in some of the paranasal sinuses since 04/15/2021 (3) Respiratory failure: Code(s): J96.90 - Respiratory failure, unspecified, unspecified whether with hypoxia or hypercapnia Status: Acute Assessment and Plan: Acute Respiratory failure secondary to cardiac arrest and suspected aspiration pneumonia Continue full mechanical ventilation support to prevent hypoxemia/hypercarbia and end organ damage. Vent settings reviewed and ABGs been. Continue peep of 5 and 30% FiO2 PCXR reviewed Low tidal volume ventilation strategy to prevent volutrauma Bronchodilators (4) Aspiration pneumonia: Qualifiers: Aspiration pneumonia type: unspecified Laterality: right Lung location: lower lobe of lung Qualified Code(s): J69.0 - Pneumonitis due to inhalation of food and vomit Code(s): J69.0 - Pneumonitis due to inhalation of food and vomit Status: Acute Assessment and Plan: Sputum and blood cultures empiric Zosyn COVID PCR is negative (5) Seizure: Code(s): R56.9 - Unspecified convulsions Status: Acute Assessment and Plan: continue Dmitriy (6) Insulin dependent type 2 diabetes mellitus: Code(s): E11.9 - Type 2 diabetes mellitus without complications; Z79.4 - [facility] (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 Patient received significant amount of IV fluids. Will repeat blood sugars and if needed patient may need IV insulin infusion -patient was started IV insulin overnight and this morning patient's blood pressures have been in the low 100s -whilst transition insulin infusion to long-acting Lantus and sliding scale insulin -blood sugars closely -recent hemoglobin A1c was 6.9 on 03/07/2021 (7) Dysphagia: Code(s): R13.10 - Dysphagia, unspecified Status: Acute Assessment and Plan: patient has PEG tube On tube feeds tolerating well (8) Shock: Code(s): R57.9 - Shock, unspecified Status: Acute Assessment and Plan: likely a mixture of septic and cardiogenic after cardiac arrest Patient has been off pressors since being rewarmed OFF stress dose steroids Continue antibiotics as ordered Additional Plan DVT prophylaxis - Lovenox Stress ulcer prophylaxis - PPI Nutrition -tolerating tube feeds Code Status - ED physician spoke to patient's POA and patient was made DNR Subjective Date/time seen: 05/04/21 17:23 Int
[2021-05-04 20:10] LABS: Hematocrit 27.2 % (37.0-47.0); Hemoglobin 8.5 g/dL (12.0-15.0); Mean Corpuscular HGB Conc 31.3 g/dl (32-36); Mean Corpuscular Hemoglobin 26.7 pg (26-34); Mean Corpuscular Volume 85.5 fl (80-100); Platelet Count Result 210 k/mm3 (150-375); Red Blood Count 3.18 M/mm3 (4.2-5.4); Red Cell Distribution Width 19.5 % (11.5-14.5); White Blood Count 13.9 K/mm3 (4.5-10.0)
[2021-05-04 20:18] LABS: Anion Gap 8 mmol/L (8-16); Blood Urea Nitrogen 31 mg/dL (7-17); Calcium 8.4 mg/dL (8.4-10.2); Carbon Dioxide 23 mmol/L (22-30); Chloride 111 mmol/L (98-107); Estimated CRCL calculation 56 ml/min; Estimated Glomerular Filt Rate > 60; Glucose 303 mg/dL (65-110); Potassium 3.3 mmol/L (3.4-5.0); Sodium 142 mmol/L (137-145)
[2021-05-04 23:45] LABS: Glucose Point of Care 263 mg/dl (65-105)
[2021-05-05] VITALS (23 sets, daily range): BP systolic 100–125; BP diastolic 42–63; PULSE 89–103; RESP 18–23; TEMP 37.1–37.3; O2SAT 96–98
[2021-05-05] MEDS: IPRATROPIUM BR 0.02% INH SOLN 0.5 MG/2.5 ML VIAL INHALATION ×4 (03:19→20:40)
[2021-05-05] MEDS: ALBUTEROL SULFATE NEB 2.5 MG/0.5 ML INH INHALATION ×4 (03:19→20:40)
[2021-05-05] MEDS: CENTRAL LINE FLUSH 10 ML IV PUSH ×4 (04:37→21:06)
[2021-05-05] MEDS: INSULIN ASPART (*BKC) 100 UNITS/ML SUB-Q ×3 (04:51→17:29)
[2021-05-05 04:53] LABS: Glucose Point of Care 291 mg/dl (65-105)
[2021-05-05 05:06] LABS: Basophils Absolute Auto 0.1 K/mm3 (0.0-0.1); Basophils Percent Auto 0.3 % (0.2-1.2); Eosinophils Absolute Auto 0.7 K/mm3 (0-0.3); Eosinophils Percent Auto 4.6 % (0-4.4); Hematocrit 27.6 % (37.0-47.0); Hemoglobin 8.6 g/dL (12.0-15.0); Immature Granulocyte Absolute 0.19 K/mm3 (0.00-0.031); Immature Granulocyte Percent A 1.3 % (0-0.5); Lymphocytes Absolute Auto 2.53 K/mm3 (0.9-3.2); Lymphocytes Percent Auto 17.4 % (18.3-44.2); Mean Corpuscular HGB Conc 31.2 g/dl (32-36); Mean Corpuscular Hemoglobin 26.5 pg (26-34); Mean Corpuscular Volume 85.2 fl (80-100); Mean Platelet Volume 9.1 fl (7.4-10.4); Monocytes Absolute Auto 0.7 K/mm3 (0.1-0.6); Monocytes Percent Auto 4.7 % (2.6-8.5); Neutrophils Absolute Auto 10.5 K/mm3 (1.3-6.7); Neutrophils Percent Auto 71.7 % (45.5-73.1); Platelet Count Result 225 k/mm3 (150-375); Red Blood Count 3.24 M/mm3 (4.2-5.4); Red Cell Distribution Width 19.9 % (11.5-14.5); White Blood Count 14.6 K/mm3 (4.5-10.0)
[2021-05-05 05:15] LABS: Alanine Aminotransferase 23 U/L (4-35); Albumin Level 2.7 g/dL (3.5-5.1); Alkaline Phosphatase 90 U/L (38-126); Anion Gap 3 mmol/L (8-16); Aspartate Amino Transferase 32 U/L (14-36); Bilirubin,Total 0.2 mg/dL (0.2-1.3); Blood Urea Nitrogen 30 mg/dL (7-17); Calcium 8.4 mg/dL (8.4-10.2); Carbon Dioxide 23 mmol/L (22-30); Chloride 114 mmol/L (98-107); Estimated CRCL calculation 64 ml/min; Estimated Glomerular Filt Rate > 60; Glucose 313 mg/dL (65-110); Magnesium 1.6 mg/dL (1.6-2.3); Phosphorus 1.1 mg/dL (2.5-4.5); Sodium 140 mmol/L (137-145)
[2021-05-05 05:27] LABS: Alveolar/Arterial O2 Gradient 67.3 mmHg; Base Excess ABG 0.1 mEq/l (+/-2.0); Carboxyhemoglobin 0.3 % THb (0-2.0); Fractional Inspired Oxygen 30 %; HCO3 ABG 22.5 mEq/l (22.0-26.0); Methemoglobin ABG 0.8 %THb (0-1.5); Oxygen Content ABG 9.1 %vol (16.0-22.0); Oxygen Saturation ABG 98.7 % (95.0-100.0); Oxyhemoglobin 96.5 % THb (90.0-100.0); PCO2 ABG 26.5 mmHg (35.0-45.0); PO2 ABG 115.5 mmHg (80.0-100.0); PO2 FiO2 Ratio Arterial Blood 3.85 %; Reduced Hemoglobin 2.4 %THb (0-5.0)
[2021-05-05 05:31] LABS: pH ABG 7.546 (7.350-7.450)
[2021-05-05 05:32] LABS: Total Hemoglobin 6.5 g/dL (12.0-18.0)
[2021-05-05 05:33] LABS: Device VENTILATOR; Modified Allen's Test Pass; Site Drawn RIGHT RADIAL
[2021-05-05 05:34] LABS: Arterial Blood Gas PEEP 5 cmH2O; Arterial Blood Gas Tidal Volume 400 ml; Arterial Blood Gas Vent Mode CMV; Arterial Blood Gas Ventilator rate 20 /MIN
[2021-05-05] MEDS: MAGNESIUM SULF 2 GM/WATER 50ML 2 GM/50 ML BAG IVPB (08:41)
[2021-05-05] MEDS: INSULIN GLARGINE (*BKC) 100 UNITS/ML 65 UNITS SUB-Q (08:41)
[2021-05-05] MEDS: PANTOPRAZOLE SODIUM IV 40 MG VIAL IV PUSH ×2 (08:42→20:33)
[2021-05-05] MEDS: MUPIROCIN 2% OINT 22 GM TUBE 1 APPLIC TOPICAL (08:42)
[2021-05-05] MEDS: MINERAL OIL/WHITE PETROLATUM OINTMENT 1 APPLIC EACH EYE ×2 (08:42→20:33)
[2021-05-05] MEDS: POTASSIUM CHLORIDE 20 MEQ PACKET (FOR LIQUID) 40 MEQ FEED TUBE ×2 (08:43→17:24)
[2021-05-05] MEDS: levETIRAcetam ORAL SOL 500 MG/5 ML UDC FEED TUBE (08:43)
[2021-05-05 09:39] LABS: Vancomycin Trough 9.3 ug/mL (10.0-20.0)
[2021-05-05] MEDS: POTASSIUM PHOS,M-BASIC-D-BASIC 40 MMOL in SODIUM CHLORIDE 0.9% IV 250 ML 43.89 MMOL IVPB (10:42)
[2021-05-05 11:57] LABS: Glucose Point of Care 314 mg/dl (65-105)
--- NOTE | 2021-05-05 12:40 | P.PNINT_ITS ---
Progress Note: A&P Assessment and Plan (1) Anemia: Code(s): D64.9 - Anemia, unspecified Status: Acute Assessment and Plan: Anemia could be related to multiple factors, patient has had history of anemia in the past requiring blood transfusion -Lovenox currently held -patient received 1 unit of packed RBCs on 03/03/2022 -hemoglobin increased appropriately -continue to monitor hemoglobin and hematocrit (2) Cardiac arrest: Code(s): I46.9 - Cardiac arrest, cause unspecified Status: Acute Assessment and Plan: I suspect this is primary respiratory event secondary to aspiration estimated to be close to 45 minutes Shock has resolved Troponins plateaued recent echocardiogram reviewed Patient post target temperature management, was appropriately cold and rewarmed -appreciate Neurology evaluation, -: EEG showed no evidence of cortical activity -patient is completely off sedation (3) Encephalopathy acute: Code(s): G93.40 - Encephalopathy, unspecified Status: Acute Assessment and Plan: Given patient's down time during the cardiac arrest suspect patient may have anoxic brain injury. Patient had poor neurological function to start with at baseline. On last admission patient was nonverbal and did not follow any commands but was awake post extubation. her CT scan this morning shows p ersistent large calcified brain mass on right side and status post right frontal craniotomy. - unable to perform an MRI on a vented patient in [facility]. Patient had a unwitnessed cardiac arrest with non shockable rhythm with unknown downtime which is of likely respiratory etiology. -appreciate neurology following the patient, EEG as above -CT head on admission: No change of large calcified brain mass since 04/15/2021; no acute intracranial findings since 04/15/2021 Fluid levels in some of the paranasal sinuses since 04/15/2021 (4) Respiratory failure: Code(s): J96.90 - Respiratory failure, unspecified, unspecified whether with hypoxia or hypercapnia Status: Acute Assessment and Plan: Acute Respiratory failure secondary to cardiac arrest and suspected aspiration pneumonia Continue full mechanical ventilation support to prevent hypoxemia/hypercarbia and end organ damage. Vent settings reviewed and ABGs been. Continue peep of 5 and 30% FiO2 PCXR reviewed Low tidal volume ventilation strategy to prevent volutrauma Bronchodilators (5) Aspiration pneumonia: Qualifiers: Aspiration pneumonia type: unspecified Laterality: right Lung location: lower lobe of lung Qualified Code(s): J69.0 - Pneumonitis due to inhalation of food and vomit Code(s): J69.0 - Pneumonitis due to inhalation of food and vomit Status: Acute Assessment and Plan: Sputum and blood cultures empiric Zosyn COVID PCR is negative (6) Seizure: Code(s): R56.9 - Unspecified convulsions Status: Acute Assessment and Plan: continue Keppra (7) Insulin dependent type 2 diabetes mellitus: Code(s): E11.9 - Type 2 diabetes mellitus without complications; 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 Patient received significant amount of IV fluids. Will repeat blood sugars and if needed patient may need IV insulin infusion -patient was started IV insulin overnight and this morning patient's blood pressures have been in the low 100s -whilst transition insulin infusion to long-acting Lantus and sliding scale insulin -blood sugars
--- NOTE | 2021-05-05 14:29 | PM.IMPN ---
Progress Note: A&P Assessment and Plan (1) Cardiac arrest: Code(s): I46.9 - Cardiac arrest, cause unspecified Status: Acute Assessment and Plan: I suspect this is primary respiratory event secondary to aspiration estimated to be close to 45 minutes Shock has resolved Troponins plateaued recent echocardiogram reviewed Patient post target temperature management, was appropriately cold and rewarmed -appreciate Neurology evaluation, -: EEG showed no evidence of cortical activity -patient is completely off sedation 05/05/2021 Interval history: patient with cardiac arrest suspect anoxic brain injury now with pneumonia on ventilator seen by assistant warehouse manager patient is being treated Zosyn and vancomycin, prognosis is poor, will continue to monitor and appreciate assistant warehouse manager (2) Encephalopathy acute: Code(s): G93.40 - Encephalopathy, unspecified Status: Acute Assessment and Plan: Given patient's down time during the cardiac arrest suspect patient may have anoxic brain injury. Patient had poor neurological function to start with at baseline. On last admission patient was nonverbal and did not follow any commands but was awake post extubation. 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 - unable to perform an MRI on a vented patient in [facility]. Patient had a unwitnessed cardiac arrest with non shockable rhythm with unknown downtime which is of likely respiratory etiology. -appreciate neurology following the patient, EEG as above -CT head on admission: No change of large calcified brain mass since 04/15/2021; no acute intracranial findings since 04/15/2021 Fluid levels in some of the paranasal sinuses since 04/15/2021 (3) Respiratory failure: Code(s): J96.90 - Respiratory failure, unspecified, unspecified whether with hypoxia or hypercapnia Status: Acute Assessment and Plan: Acute Respiratory failure secondary to cardiac arrest and suspected aspiration pneumonia Continue full mechanical ventilation support to prevent hypoxemia/hypercarbia and end organ damage. Vent settings reviewed and ABGs been. Continue peep of 5 and 30% FiO2 PCXR reviewed Low tidal volume ventilation strategy to prevent volutrauma Bronchodilators (4) Aspiration pneumonia: Qualifiers: Aspiration pneumonia type: unspecified Laterality: right Lung location: lower lobe of lung Qualified Code(s): J69.0 - Pneumonitis due to inhalation of food and vomit Code(s): J69.0 - Pneumonitis due to inhalation of food and vomit Status: Acute Assessment and Plan: Sputum and blood cultures empiric Zosyn COVID PCR is negative (5) Seizure: Code(s): R56.9 - Unspecified convulsions Status: Acute Assessment and Plan: continue Keppra (6) Insulin dependent type 2 diabetes mellitus: Code(s): E11.9 - Type 2 diabetes mellitus without complications; 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 Patient received significant amount of IV fluids. Will repeat blood sugars and if needed patient may need IV insulin infusion -patient was started IV insulin overnight and this morning patient's blood pressures have been in the low 100s -whilst transition insulin infusion to long-acting Lantus and sliding scale insulin -blood sugars closely -recent hemoglobin A1c was 6.9 on 03/07/2021 (7) Dysphagia: Code(s): R13.10 - Dysphagia, unspecified Status: Acute Assessment and Plan: patient has PEG tube On tube feeds tolerating well (8) Shock: Code(s): R57.9 - Shock, unspecified Status: Acute Assessment and Plan: likely a mixture of septic and cardiogenic after cardiac arrest Patient has been off pressors since being rewarmed OFF stress dose steroids Continue antib
--- NOTE | 2021-05-05 14:38 | PC.NURSE ---
Family member, Jessica, able to facetime with the patient. Dr. Owusu is going to order an EEG per family request.
[2021-05-05 17:33] LABS: Glucose Point of Care 233 mg/dl (65-105)
--- NOTE | 2021-05-05 21:00 | PC.NURSE ---
Patient's family called to have her [facility] med keppra held till the EEG is performed. Dr Owusu called and medication held.
[2021-05-06] VITALS (26 sets, daily range): BP systolic 106–123; BP diastolic 42–59; PULSE 83–108; RESP 13–29; TEMP 35.5–37.2; O2SAT 96–100
[2021-05-06 00:45] LABS: Glucose Point of Care 120 mg/dl (65-105)
[2021-05-06] MEDS: IPRATROPIUM BR 0.02% INH SOLN 0.5 MG/2.5 ML VIAL INHALATION ×4 (02:27→20:07)
[2021-05-06] MEDS: ALBUTEROL SULFATE NEB 2.5 MG/0.5 ML INH INHALATION ×4 (02:27→20:06)
[2021-05-06 05:05] LABS: Alveolar/Arterial O2 Gradient 100.5 mmHg; Base Excess ABG 0.4 mEq/l (+/-2.0); Carboxyhemoglobin 0.3 % THb (0-2.0); Fractional Inspired Oxygen 30 %; HCO3 ABG 23.2 mEq/l (22.0-26.0); Methemoglobin ABG 0.2 %THb (0-1.5); Oxygen Content ABG 13.2 %vol (16.0-22.0); Oxygen Saturation ABG 96.5 % (95.0-100.0); Oxyhemoglobin 94.8 % THb (90.0-100.0); PCO2 ABG 30.7 mmHg (35.0-45.0); PO2 ABG 77.3 mmHg (80.0-100.0); PO2 FiO2 Ratio Arterial Blood 2.58 %; Reduced Hemoglobin 4.7 %THb (0-5.0); Total Hemoglobin 9.8 g/dL (12.0-18.0); pH ABG 7.496 (7.350-7.450)
[2021-05-06 05:06] LABS: Basophils Percent Auto 0.3 % (0.2-1.2); Eosinophils Percent Auto 8.2 % (0-4.4); Hematocrit 27.1 % (37.0-47.0); Hemoglobin 8.5 g/dL (12.0-15.0); Immature Granulocyte Absolute 0.35 K/mm3 (0.00-0.031); Immature Granulocyte Percent A 2.8 % (0-0.5); Lymphocytes Absolute Auto 2.19 K/mm3 (0.9-3.2); Lymphocytes Percent Auto 17.6 % (18.3-44.2); Mean Corpuscular HGB Conc 31.4 g/dl (32-36); Mean Corpuscular Hemoglobin 26.3 pg (26-34); Mean Corpuscular Volume 83.9 fl (80-100); Mean Platelet Volume 9.2 fl (7.4-10.4); Monocytes Absolute Auto 0.7 K/mm3 (0.1-0.6); Monocytes Percent Auto 5.9 % (2.6-8.5); Neutrophils Absolute Auto 8.1 K/mm3 (1.3-6.7); Neutrophils Percent Auto 65.2 % (45.5-73.1); Platelet Count Result 247 k/mm3 (150-375); Red Blood Count 3.23 M/mm3 (4.2-5.4); Red Cell Distribution Width 20.4 % (11.5-14.5); White Blood Count 12.4 K/mm3 (4.5-10.0)
[2021-05-06 05:11] LABS: Device VENTILATOR; Modified Allen's Test Unable to perform; Site Drawn RIGHT RADIAL
[2021-05-06 05:12] LABS: Arterial Blood Gas PEEP 5 cmH2O; Arterial Blood Gas Tidal Volume 400 ml; Arterial Blood Gas Vent Mode CMV; Arterial Blood Gas Ventilator rate 18 /MIN
[2021-05-06 05:33] LABS: Anion Gap 3 mmol/L (8-16); Blood Urea Nitrogen 32 mg/dL (7-17); Calcium 8.8 mg/dL (8.4-10.2); Carbon Dioxide 27 mmol/L (22-30); Chloride 113 mmol/L (98-107); Estimated CRCL calculation 56 ml/min; Estimated Glomerular Filt Rate > 60; Glucose 153 mg/dL (65-110); Phosphorus 3.4 mg/dL (2.5-4.5); Potassium 3.8 mmol/L (3.4-5.0); Sodium 143 mmol/L (137-145)
[2021-05-06] MEDS: CENTRAL LINE FLUSH 10 ML IV PUSH ×4 (05:55→21:01)
[2021-05-06 08:05] LABS: Glucose Point of Care 156 mg/dl (65-105)
[2021-05-06] MEDS: INSULIN GLARGINE (*BKC) 100 UNITS/ML 65 UNITS SUB-Q (09:28)
[2021-05-06] MEDS: POTASSIUM CHLORIDE 20 MEQ PACKET (FOR LIQUID) 40 MEQ FEED TUBE ×2 (09:42→17:17)
[2021-05-06] MEDS: MUPIROCIN 2% OINT 22 GM TUBE 1 APPLIC TOPICAL (09:42)
[2021-05-06] MEDS: PANTOPRAZOLE SODIUM IV 40 MG VIAL IV PUSH ×2 (09:43→20:49)
[2021-05-06] MEDS: MINERAL OIL/WHITE PETROLATUM OINTMENT 1 APPLIC EACH EYE ×2 (09:44→20:49)
--- NOTE | 2021-05-06 10:55 | PM.IMPN ---
Progress Note: A&P Assessment and Plan (1) Cardiac arrest: Code(s): I46.9 - Cardiac arrest, cause unspecified Status: Acute Assessment and Plan: I suspect this is primary respiratory event secondary to aspiration estimated to be close to 45 minutes Shock has resolved Troponins plateaued recent echocardiogram reviewed Patient post target temperature management, was appropriately cold and rewarmed -appreciate Neurology evaluation, -: EEG showed no evidence of cortical activity -patient is completely off sedation 05/05/2021 Interval history: patient with cardiac arrest suspect anoxic brain injury now with pneumonia on ventilator seen by cut off machine unloader patient is being treated Zosyn and vancomycin, prognosis is poor, will continue to monitor and appreciate cut off machine unloader. 05/06/2021 Interval history: patient with cardiac arrest suspect anoxic brain injury now with pneumonia on ventilator seen by cut off machine unloader patient is being treated Zosyn and vancomycin, prognosis is poor, now DNR, will continue to monitor and appreciate cut off machine unloader (2) Encephalopathy acute: Code(s): G93.40 - Encephalopathy, unspecified Status: Acute Assessment and Plan: Given patient's down time during the cardiac arrest suspect patient may have anoxic brain injury. Patient had poor neurological function to start with at baseline. On last admission patient was nonverbal and did not follow any commands but was awake post extubation. 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 - unable to perform an MRI on a vented patient in [facility]. Patient had a unwitnessed cardiac arrest with non shockable rhythm with unknown downtime which is of likely respiratory etiology. -appreciate neurology following the patient, EEG as above -CT head on admission: No change of large calcified brain mass since 04/15/2021; no acute intracranial findings since 04/15/2021 Fluid levels in some of the paranasal sinuses since 04/15/2021 (3) Respiratory failure: Code(s): J96.90 - Respiratory failure, unspecified, unspecified whether with hypoxia or hypercapnia Status: Acute Assessment and Plan: Acute Respiratory failure secondary to cardiac arrest and suspected aspiration pneumonia Continue full mechanical ventilation support to prevent hypoxemia/hypercarbia and end organ damage. Vent settings reviewed and ABGs been. Continue peep of 5 and 30% FiO2 PCXR reviewed Low tidal volume ventilation strategy to prevent volutrauma Bronchodilators (4) Aspiration pneumonia: Qualifiers: Aspiration pneumonia type: unspecified Laterality: right Lung location: lower lobe of lung Qualified Code(s): J69.0 - Pneumonitis due to inhalation of food and vomit Code(s): J69.0 - Pneumonitis due to inhalation of food and vomit Status: Acute Assessment and Plan: Sputum and blood cultures empiric Zosyn COVID PCR is negative (5) Seizure: Code(s): R56.9 - Unspecified convulsions Status: Acute Assessment and Plan: continue Keppra (6) Insulin dependent type 2 diabetes mellitus: Code(s): E11.9 - Type 2 diabetes mellitus without complications; 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 Patient received significant amount of IV fluids. Will repeat blood sugars and if needed patient may need IV insulin infusion -patient was started IV insulin overnight and this morning patient's blood pressures have been in the low 100s -whilst transition insulin infusion to long-acting Lantus and sliding scale insulin -blood sugars closely -recent hemoglobin A1c was 6.9 on 03/07/2021 (7) Dysphagia: Code(s): R13.10 - Dysphagia, unspecified Status: Acute Assessment and Plan: patient has PEG tube On tube feeds toleratin
--- NOTE | 2021-05-06 11:59 | WPDINTPN ---
Progress Note: A&P Assessment and Plan (1) Anemia: Code(s): D64.9 - Anemia, unspecified Status: Acute Assessment and Plan: Anemia could be related to multiple factors, patient has had history of anemia in the past requiring blood transfusion -Lovenox currently held -patient received 1 unit of packed RBCs on 03/03/2022 -hemoglobin increased appropriately -continue to monitor hemoglobin and hematocrit (2) Cardiac arrest: Code(s): I46.9 - Cardiac arrest, cause unspecified Status: Acute Assessment and Plan: I suspect this is primary respiratory event secondary to aspiration estimated to be close to 45 minutes Shock has resolved Troponins plateaued recent echocardiogram reviewed Patient post target temperature management, was appropriately cold and rewarmed -appreciate Neurology evaluation, -: EEG showed no evidence of cortical activity -patient is completely off sedation (3) Encephalopathy acute: Code(s): G93.40 - Encephalopathy, unspecified Status: Acute Assessment and Plan: Given patient's down time during the cardiac arrest suspect patient may have anoxic brain injury. Patient had poor neurological function to start with at baseline. On last admission patient was nonverbal and did not follow any commands but was awake post extubation. 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 - unable to perform an MRI on a vented patient in [facility]. Patient had a unwitnessed cardiac arrest with non shockable rhythm with unknown downtime which is of likely respiratory etiology. -appreciate neurology following the patient, EEG as above -CT head on admission: No change of large calcified brain mass since 04/15/2021; no acute intracranial findings since 04/15/2021 Fluid levels in some of the paranasal sinuses since 04/15/2021 (4) Respiratory failure: Code(s): J96.90 - Respiratory failure, unspecified, unspecified whether with hypoxia or hypercapnia Status: Acute Assessment and Plan: Acute Respiratory failure secondary to cardiac arrest and suspected aspiration pneumonia Continue full mechanical ventilation support to prevent hypoxemia/hypercarbia and end organ damage. Vent settings reviewed and ABGs been. Continue peep of 5 and 30% FiO2 PCXR reviewed Low tidal volume ventilation strategy to prevent volutrauma Bronchodilators (5) Aspiration pneumonia: Qualifiers: Aspiration pneumonia type: unspecified Laterality: right Lung location: lower lobe of lung Qualified Code(s): J69.0 - Pneumonitis due to inhalation of food and vomit Code(s): J69.0 - Pneumonitis due to inhalation of food and vomit Status: Acute Assessment and Plan: Sputum and blood cultures empiric Zosyn COVID PCR is negative (6) Seizure: Code(s): R56.9 - Unspecified convulsions Status: Acute Assessment and Plan: continue Keppra (7) Insulin dependent type 2 diabetes mellitus: Code(s): E11.9 - Type 2 diabetes mellitus without complications; Z79.4 - long term care administrator (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 Patient received significant amount of IV fluids. Will repeat blood sugars and if needed patient may need IV insulin infusion -patient was started IV insulin overnight and this morning patient's blood pressures have been in the low 100s -whilst transition insulin infusion to long-acting Lantus and sliding scale insulin -blood sugars closely -recent hemoglobin A1c was 6.9 on 03/07/2021 (8) Dysphagia: Code(s): R13.10 - Dysphagia, unspecified Status: Acute Assessment and Plan: patient has PEG tube Continue tube feeds (9) Shock: Code(s): R57.9 - Shock, unspecified Status: Acute Assessment and Plan: Resolved likely a mixture of septic and
[2021-05-06 12:00] LABS: Glucose Point of Care 136 mg/dl (65-105)
[2021-05-06 17:16] LABS: Glucose Point of Care 139 mg/dl (65-105)
[2021-05-06 23:45] LABS: Glucose Point of Care 185 mg/dl (65-105)
[2021-05-07] VITALS (26 sets, daily range): BP systolic 106–120; BP diastolic 40–58; PULSE 87–104; RESP 12–26; TEMP 36.6–37.4; O2SAT 94–100
[2021-05-07] MEDS: ALBUTEROL SULFATE NEB 2.5 MG/0.5 ML INH INHALATION ×4 (02:28→20:27)
[2021-05-07] MEDS: IPRATROPIUM BR 0.02% INH SOLN 0.5 MG/2.5 ML VIAL INHALATION ×4 (02:28→20:28)
[2021-05-07 05:07] LABS: Hematocrit 29.4 % (37.0-47.0); Hemoglobin 8.9 g/dL (12.0-15.0); Mean Corpuscular HGB Conc 30.3 g/dl (32-36); Platelet Count Result 302 k/mm3 (150-375); Red Blood Count 3.42 M/mm3 (4.2-5.4); Red Cell Distribution Width 20.8 % (11.5-14.5); White Blood Count 13.1 K/mm3 (4.5-10.0)
[2021-05-07 05:10] LABS: Alveolar/Arterial O2 Gradient 99.6 mmHg; Base Excess ABG 1.5 mEq/l (+/-2.0); Carboxyhemoglobin 0.3 % THb (0-2.0); Device VENTILATOR; Fractional Inspired Oxygen 30 %; HCO3 ABG 24.6 mEq/l (22.0-26.0); Methemoglobin ABG 0.4 %THb (0-1.5); Modified Allen's Test Pass; Oxygen Content ABG 15.7 %vol (16.0-22.0); Oxygen Saturation ABG 96.1 % (95.0-100.0); Oxyhemoglobin 94.3 % THb (90.0-100.0); PCO2 ABG 33.5 mmHg (35.0-45.0); PO2 ABG 74.9 mmHg (80.0-100.0); Site Drawn LEFT RADIAL; Total Hemoglobin 11.8 g/dL (12.0-18.0); pH ABG 7.483 (7.350-7.450)
[2021-05-07 05:11] LABS: Arterial Blood Gas PEEP 5 cmH2O; Arterial Blood Gas Vent Mode ASV
[2021-05-07 05:20] LABS: Alanine Aminotransferase 27 U/L (4-35); Alkaline Phosphatase 97 U/L (38-126); Anion Gap 8 mmol/L (8-16); Aspartate Amino Transferase 45 U/L (14-36); Bilirubin,Total 0.3 mg/dL (0.2-1.3); Blood Urea Nitrogen 35 mg/dL (7-17); Calcium 9.3 mg/dL (8.4-10.2); Carbon Dioxide 28 mmol/L (22-30); Chloride 104 mmol/L (98-107); Estimated CRCL calculation 56 ml/min; Estimated Glomerular Filt Rate > 60; Glucose 153 mg/dL (65-110); Magnesium 1.9 mg/dL (1.6-2.3); Phosphorus 4.4 mg/dL (2.5-4.5); Potassium 4.3 mmol/L (3.4-5.0); Sodium 140 mmol/L (137-145)
[2021-05-07] MEDS: CENTRAL LINE FLUSH 10 ML IV PUSH ×4 (05:26→20:07)
[2021-05-07] MEDS: PANTOPRAZOLE SODIUM IV 40 MG VIAL IV PUSH ×2 (08:00→20:43)
[2021-05-07] MEDS: MINERAL OIL/WHITE PETROLATUM OINTMENT 1 APPLIC EACH EYE ×2 (08:00→20:44)
[2021-05-07] MEDS: INSULIN GLARGINE (*BKC) 100 UNITS/ML 65 UNITS SUB-Q (08:01)
[2021-05-07] MEDS: MUPIROCIN 2% OINT 22 GM TUBE 1 APPLIC TOPICAL (08:01)
--- NOTE | 2021-05-07 11:27 | WPDINTPN ---
Progress Note: A&P Assessment and Plan (1) Anemia: Code(s): D64.9 - Anemia, unspecified Status: Acute Assessment and Plan: Anemia could be related to multiple factors, patient has had history of anemia in the past requiring blood transfusion -Lovenox currently held -patient received 1 unit of packed RBCs on 03/03/2022 -hemoglobin increased appropriately -continue to monitor hemoglobin and hematocrit (2) Cardiac arrest: Code(s): I46.9 - Cardiac arrest, cause unspecified Status: Acute Assessment and Plan: I suspect this is primary respiratory event secondary to aspiration estimated to be close to 45 minutes Shock has resolved Troponins plateaued recent echocardiogram reviewed Patient post target temperature management, was appropriately cold and rewarmed -appreciate Neurology evaluation, -: EEG showed no evidence of cortical activity -patient is completely off sedation (3) Encephalopathy acute: Code(s): G93.40 - Encephalopathy, unspecified Status: Acute Assessment and Plan: Given patient's down time during the cardiac arrest suspect patient may have anoxic brain injury. Patient had poor neurological function to start with at baseline. On last admission patient was nonverbal and did not follow any commands but was awake post extubation. 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 - unable to perform an MRI on a vented patient in [facility]. Patient had a unwitnessed cardiac arrest with non shockable rhythm with unknown downtime which is of likely respiratory etiology. -appreciate neurology following the patient, EEG as above -CT head on admission: No change of large calcified brain mass since 04/15/2021; no acute intracranial findings since 04/15/2021 Fluid levels in some of the paranasal sinuses since 04/15/2021 (4) Respiratory failure: Code(s): J96.90 - Respiratory failure, unspecified, unspecified whether with hypoxia or hypercapnia Status: Acute Assessment and Plan: Acute Respiratory failure secondary to cardiac arrest and suspected aspiration pneumonia Continue full mechanical ventilation support to prevent hypoxemia/hypercarbia and end organ damage. Vent settings reviewed and ABGs been. Continue peep of 5 and 30% FiO2 PCXR reviewed Low tidal volume ventilation strategy to prevent volutrauma Bronchodilators (5) Aspiration pneumonia: Qualifiers: Aspiration pneumonia type: unspecified Laterality: right Lung location: lower lobe of lung Qualified Code(s): J69.0 - Pneumonitis due to inhalation of food and vomit Code(s): J69.0 - Pneumonitis due to inhalation of food and vomit Status: Acute Assessment and Plan: Sputum and blood cultures empiric Zosyn COVID PCR is negative (6) Seizure: Code(s): R56.9 - Unspecified convulsions Status: Acute Assessment and Plan: continue Keppra (7) Insulin dependent type 2 diabetes mellitus: Code(s): E11.9 - Type 2 diabetes mellitus without complications; Z79.4 - ocean transportation intermediary (current) use of insulin Status: Acute Assessment and Plan: continue accucheks and slidinig scale -continue lantus -recent hemoglobin A1c was 6.9 on 03/07/2021 (8) Dysphagia: Code(s): R13.10 - Dysphagia, unspecified Status: Acute Assessment and Plan: patient has PEG tube Continue tube feeds (9) Shock: Code(s): R57.9 - Shock, unspecified Status: Acute Assessment and Plan: Resolved likely a mixture of septic and cardiogenic after cardiac arrest Patient has been off pressors since being rewarmed OFF stress dose steroids -continue Zosyn (04/30), vancomycin (05/02) patient has received 3 L in ER and 1 L IV fluid bolus in the ICU 04/19/2021 Additional Plan DVT prophylaxis - Lovenox on hold Stress ulcer prophylaxis - PPI Nutrit
[2021-05-07 11:54] LABS: Glucose Point of Care 118 mg/dl (65-105)
--- NOTE | 2021-05-07 12:59 | PCFNICU ---
ICU Rounding Note: Pt current nutrition is Glucerna 1.2 at 40 ml/hr over 22 hours. Last recorded weight is 70.2 kg, stable Bowel Motility:+BM reported 05/07 Labs Reviewed:Glu 158, Alb 3.0,Hgb 8.9,Hct 29.4,BUN 35 Meds Noted:Lantus, Atrovent, Zosyn, Protonix. Skin: Stage II Pressure Ulcer-left heel/saccum Additional Notes: Patient remains on mechanical vent. Tube feedings changed over the weekend to Glucerna 1.2 at 40 ml/hr over 22 hours from Vital AF 1.2. Discussed tube feeding rates with MD today. Current tube feeding is providing 1056 kcals/53 gms protein/708 ml water. Recommend tube feeding rate at 70 ml/hr over 22 hours providing 1848 kcals/92 gms protein/1240 ml water. Increased protein and kcal needs for wound healing. 30 ml free water flush q 4 hours. EEG ordered today. Following daily in ICU rounds. Will reassess every Friday and Friday.
--- NOTE | 2021-05-07 16:39 | PM.IMPN ---
Progress Note: A&P Assessment and Plan (1) Cardiac arrest: Code(s): I46.9 - Cardiac arrest, cause unspecified Status: Acute Assessment and Plan: I suspect this is primary respiratory event secondary to aspiration estimated to be close to 45 minutes Shock has resolved Troponins plateaued recent echocardiogram reviewed Patient post target temperature management, was appropriately cold and rewarmed -appreciate Neurology evaluation, -: EEG showed no evidence of cortical activity -patient is completely off sedation 05/05/2021 Interval history: patient with cardiac arrest suspect anoxic brain injury now with pneumonia on ventilator seen by civil attorney patient is being treated Zosyn and vancomycin, prognosis is poor, will continue to monitor and appreciate civil attorney. 05/06/2021 Interval history: patient with cardiac arrest suspect anoxic brain injury now with pneumonia on ventilator seen by civil attorney patient is being treated Zosyn and vancomycin, prognosis is poor, now DNR, will continue to monitor and appreciate civil attorney. 05/07/2021 Interval history: patient with cardiac arrest suspect anoxic brain injury, patient is off also sedation and not responding, EEG done on 05/03/2021 did not show any cortical activity, today patient has repeat EEG pending result,now with pneumonia on ventilator seen by civil attorney patient is being treated Zosyn and vancomycin, prognosis is poor, now DNR, will continue to monitor and appreciate civil attorney (2) Encephalopathy acute: Code(s): G93.40 - Encephalopathy, unspecified Status: Acute Assessment and Plan: Given patient's down time during the cardiac arrest suspect patient may have anoxic brain injury. Patient had poor neurological function to start with at baseline. On last admission patient was nonverbal and did not follow any commands but was awake post extubation. 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 - unable to perform an MRI on a vented patient in [facility]. Patient had a unwitnessed cardiac arrest with non shockable rhythm with unknown downtime which is of likely respiratory etiology. -appreciate neurology following the patient, EEG as above -CT head on admission: No change of large calcified brain mass since 04/15/2021; no acute intracranial findings since 04/15/2021 Fluid levels in some of the paranasal sinuses since 04/15/2021 (3) Respiratory failure: Code(s): J96.90 - Respiratory failure, unspecified, unspecified whether with hypoxia or hypercapnia Status: Acute Assessment and Plan: Acute Respiratory failure secondary to cardiac arrest and suspected aspiration pneumonia Continue full mechanical ventilation support to prevent hypoxemia/hypercarbia and end organ damage. Vent settings reviewed and ABGs been. Continue peep of 5 and 30% FiO2 PCXR reviewed Low tidal volume ventilation strategy to prevent volutrauma Bronchodilators (4) Aspiration pneumonia: Qualifiers: Aspiration pneumonia type: unspecified Laterality: right Lung location: lower lobe of lung Qualified Code(s): J69.0 - Pneumonitis due to inhalation of food and vomit Code(s): J69.0 - Pneumonitis due to inhalation of food and vomit Status: Acute Assessment and Plan: Sputum and blood cultures empiric Zosyn COVID PCR is negative (5) Seizure: Code(s): R56.9 - Unspecified convulsions Status: Acute Assessment and Plan: continue Keppra (6) Insulin dependent type 2 diabetes mellitus: Code(s): E11.9 - Type 2 diabetes mellitus without complications; Z79.4 - meterman (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 Patient received significant amount of IV fluids. Will repeat blood sugars and if needed patient may need IV insulin infusion
[2021-05-07 17:19] LABS: Vancomycin Trough 16.6 ug/mL (10.0-20.0)
[2021-05-07 17:32] LABS: Glucose Point of Care 71 mg/dl (65-105)
[2021-05-07 20:22] LABS: Glucose Point of Care 77 mg/dl (65-105)
[2021-05-08] VITALS (26 sets, daily range): BP systolic 111–125; BP diastolic 42–56; PULSE 11–110; RESP 13–24; TEMP 36.2–37.9; O2SAT 93–100
[2021-05-08 00:06] LABS: Glucose Point of Care 93 mg/dl (65-105)
[2021-05-08] MEDS: IPRATROPIUM BR 0.02% INH SOLN 0.5 MG/2.5 ML VIAL INHALATION ×4 (02:37→20:52)
[2021-05-08] MEDS: ALBUTEROL SULFATE NEB 2.5 MG/0.5 ML INH INHALATION ×4 (02:37→20:52)
[2021-05-08 05:28] LABS: Alveolar/Arterial O2 Gradient 98.2 mmHg; Base Excess ABG 3.3 mEq/l (+/-2.0); Carboxyhemoglobin 0.3 % THb (0-2.0); Fractional Inspired Oxygen 30 %; Methemoglobin ABG 0.4 %THb (0-1.5); Oxygen Content ABG 12.6 %vol (16.0-22.0); Oxygen Saturation ABG 96.7 % (95.0-100.0); Oxyhemoglobin 94.2 % THb (90.0-100.0); PCO2 ABG 32.3 mmHg (35.0-45.0); PO2 ABG 77.8 mmHg (80.0-100.0); PO2 FiO2 Ratio Arterial Blood 2.59 %; Reduced Hemoglobin 5.1 %THb (0-5.0); Total Hemoglobin 9.4 g/dL (12.0-18.0)
[2021-05-08 05:31] LABS: Device VENTILATOR; Modified Allen's Test Pass; Site Drawn RIGHT RADIAL; pH ABG 7.523 (7.350-7.450)
[2021-05-08 05:32] LABS: Arterial Blood Gas PEEP 5 cmH2O; Arterial Blood Gas Vent Mode ASV
[2021-05-08 05:39] LABS: Hematocrit 29.1 % (37.0-47.0); Hemoglobin 8.9 g/dL (12.0-15.0); Mean Corpuscular HGB Conc 30.6 g/dl (32-36); Mean Corpuscular Hemoglobin 26.2 pg (26-34); Mean Corpuscular Volume 85.6 fl (80-100); Mean Platelet Volume 8.9 fl (7.4-10.4); Platelet Count Result 315 k/mm3 (150-375); Red Cell Distribution Width 20.3 % (11.5-14.5); White Blood Count 15.7 K/mm3 (4.5-10.0)
[2021-05-08 06:02] LABS: Glucose Point of Care 70 mg/dl (65-105)
[2021-05-08 06:08] LABS: Alanine Aminotransferase 24 U/L (4-35); Albumin Level 2.8 g/dL (3.5-5.1); Alkaline Phosphatase 94 U/L (38-126); Anion Gap 5 mmol/L (8-16); Aspartate Amino Transferase 50 U/L (14-36); Bilirubin,Total 0.3 mg/dL (0.2-1.3); Blood Urea Nitrogen 25 mg/dL (7-17); Calcium 8.4 mg/dL (8.4-10.2); Carbon Dioxide 31 mmol/L (22-30); Chloride 104 mmol/L (98-107); Estimated CRCL calculation 56 ml/min; Estimated Glomerular Filt Rate > 60; Glucose 67 mg/dL (65-110); Magnesium 1.9 mg/dL (1.6-2.3); Phosphorus 4.6 mg/dL (2.5-4.5); Potassium 3.6 mmol/L (3.4-5.0); Sodium 140 mmol/L (137-145)
[2021-05-08] MEDS: CENTRAL LINE FLUSH 10 ML IV PUSH ×4 (06:29→21:18)
[2021-05-08] MEDS: DEXTROSE 50% 25 GM/50 ML SYRINGE IV PUSH (06:38)
[2021-05-08 06:57] LABS: Glucose Point of Care 151 mg/dl (65-105)
[2021-05-08 06:57] LABS: Glucose Point of Care 58 mg/dl (65-105)
[2021-05-08] MEDS: MINERAL OIL/WHITE PETROLATUM OINTMENT 1 APPLIC EACH EYE ×2 (09:47→21:18)
[2021-05-08] MEDS: INSULIN GLARGINE (*BKC) 100 UNITS/ML 65 UNITS SUB-Q (09:47)
[2021-05-08] MEDS: PANTOPRAZOLE SODIUM IV 40 MG VIAL IV PUSH ×2 (09:48→21:17)
[2021-05-08] MEDS: MUPIROCIN 2% OINT 22 GM TUBE 1 APPLIC TOPICAL (09:48)
--- NOTE | 2021-05-08 10:34 | WPDNEUROLOGY ---
Neurology EEG Report General Information Date of Study: 05/07/21 TEST eeg DIAGNOSIS unresponsive CONDITION OF RECORDING comatose EEG NUMBER [id number] CLINICAL HISTORY this is a repeat EEG. Patient is in ICU on a vent following a cardiac arrest and hypothermia treatment and at present is comatose but not on any sedation. EEG DESCRIPTION Very low-voltage beta activity seen over the left hemispheric linkages intermittently. And decreased voltage beta activity seen over the right hemispheric linkages admixed with occasional intermittent 2 to 3 hertz per 2nd delta activity hyperventilation not done photic stimulation not done focal, lateralizing, non paroxysmal IMPRESSION abnormal record due to the presence of very low-voltage activity over the left hemisphere and due to the presence of intermittent delta activity over the right hemisphere with decrement in the electrical activity. These findings are suggestive of underlying focal structural lesion of the right hemisphere there is no evidence of abnormal seizure-like discharges clinical correlation recommended
--- NOTE | 2021-05-08 11:37 | WPDINTPN ---
Progress Note: A&P Assessment and Plan (1) Anemia: Code(s): D64.9 - Anemia, unspecified Status: Acute Assessment and Plan: Anemia could be related to multiple factors, patient has had history of anemia in the past requiring blood transfusion -Lovenox currently held -patient received 1 unit of packed RBCs on 03/03/2022 -hemoglobin is stable at this time -continue to monitor hemoglobin and hematocrit (2) Cardiac arrest: Code(s): I46.9 - Cardiac arrest, cause unspecified Status: Acute Assessment and Plan: I suspect this is primary respiratory event secondary to aspiration Down time estimated to be close to 45 minutes Shock has resolved Troponin plateaued. Recent echocardiogram reviewed Patient post target temperature management, was appropriately cold and rewarmed (3) Encephalopathy acute: Code(s): G93.40 - Encephalopathy, unspecified Status: Acute Assessment and Plan: Given patient's down time during the cardiac arrest suspect patient has anoxic brain injury. Patient had poor neurological function to start with at baseline. On last admission patient was nonverbal and did not follow any commands but was awake post extubation. 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 - unable to perform an MRI on a vented patient in [facility]. Patient had a unwitnessed cardiac arrest with non shockable rhythm with unknown downtime which is of likely respiratory etiology. She completed a moderate TTM protocol -neurology is following -CT head on admission: No change of large calcified brain mass since 04/15/2021; no acute intracranial findings since 04/15/2021 Fluid levels in some of the paranasal sinuses since 04/15/2021 -05/03/2021: EEG showed no evidence of cortical activity - 05/07 EEG - abnormal record due to the presence of very low-voltage activity over the left hemisphere and due to the presence of intermittent delta activity over the right hemisphere with decrement in the electrical activity. These findings are suggestive of underlying focal structural lesion of the right hemisphere there is no evidence of abnormal seizure-like discharges clinical correlation recommended -patient is completely off sedation (4) Respiratory failure: Code(s): J96.90 - Respiratory failure, unspecified, unspecified whether with hypoxia or hypercapnia Status: Acute Assessment and Plan: Acute Respiratory failure secondary to cardiac arrest and suspected aspiration pneumonia Continue full mechanical ventilation support to prevent hypoxemia/hypercarbia and end organ damage. Vent settings reviewed and ABGs been. Continue peep of 5 and 30% FiO2 PCXR reviewed - Stable diffuse lung disease, consistent with pneumonia. Low tidal volume ventilation strategy to prevent volutrauma Bronchodilators (5) Aspiration pneumonia: Qualifiers: Aspiration pneumonia type: unspecified Laterality: right Lung location: lower lobe of lung Qualified Code(s): J69.0 - Pneumonitis due to inhalation of food and vomit Code(s): J69.0 - Pneumonitis due to inhalation of food and vomit Status: Acute Assessment and Plan: Sputum cultures grew MSSA and pansensitive Pseudomonas Blood culture grew coag-negative staph which was likely contaminant and Corynebacterium from the other bottle which is also likely contaminant. But both should be covered with Zosyn Continue empiric Zosyn COVID PCR is negative (6) Seizure: Code(s): R56.9 - Unspecified convulsions Status: Acute Assessment and Plan: Keppra was discontinued earlier due to family's request Discussed with Dr. Milli hcarles Neurology. He witnessed a jerky movement of right arm suggestive of focal seizures. Will resume Keppra. Will try to avoid propofol or Versed infusion (7) Insulin dependent type 2 diabetes mellitus: Code(s): E1
--- NOTE | 2021-05-08 12:07 | PCNFU ---
Nutrition Follow-Up Complete: Inadequate Oral Intake as related to intubation as evidenced by NPO. goal: Meet estimated nutritional needs Patient is progressing towards goal. We will continue current goal. Pt current nutrition is Glucerna 1.2 at 40 ml/hr over 22 hours. Last recorded weight is 67.4 kg, down from 70.2 kg on admit. Bowel Motility:FMS Labs Reviewed:BUN 25, PO4 4.6,Alb 2.8,Hct 29.1,Hgb 8.9 Meds Noted:Dextrose,Lantus, Protonix, Zosyn Skin: stage II PU-left heel and saccum. Additional Notes: Patient remains on mechanical vent and tube feedings of Glucerna 1.2 at 40 ml/hr. Spoke with nursing today, patient had some episodes of vomiting last night. Tube feeding held. Restarted this morning and is tolerating at 40 ml/hr. Current tube feeding is meeting 78% of caloric needs and 62% of protein needs. Protein Modular of Robbie BID for wound healing via tube. Free water flush 390 ml q 4 hours. Will monitor in ICU rounds and reassessing Friday and Friday.
[2021-05-08 12:49] LABS: Glucose Point of Care 88 mg/dl (65-105)
--- NOTE | 2021-05-08 16:38 | PC.NURSE ---
On 05/08/21, the student, [ Dewayne Villegas], provided care and completed [facility] documentation on this patient. I have reviewed the student's documentation and agree with the findings.
[2021-05-08 17:58] LABS: Glucose Point of Care 79 mg/dl (65-105)
[2021-05-08] MEDS: levETIRAcetam ORAL SOL 500 MG/5 ML UDC FEED TUBE (21:18)
[2021-05-08 23:24] LABS: Glucose Point of Care 122 mg/dl (65-105)
[2021-05-09] VITALS (49 sets, daily range): BP systolic 54–147; BP diastolic 31–83; PULSE 86–114; RESP 12–24; TEMP 35.8–37.1; O2SAT 91–100
[2021-05-09] MEDS: ALBUTEROL SULFATE NEB 2.5 MG/0.5 ML INH INHALATION ×4 (03:18→20:52)
[2021-05-09] MEDS: IPRATROPIUM BR 0.02% INH SOLN 0.5 MG/2.5 ML VIAL INHALATION ×4 (03:18→20:52)
[2021-05-09 04:56] LABS: Hematocrit 21.7 % (37.0-47.0); Mean Corpuscular Hemoglobin 26.5 pg (26-34); Mean Corpuscular Volume 88.6 fl (80-100); Platelet Count Result 352 k/mm3 (150-375); Red Blood Count 2.45 M/mm3 (4.2-5.4); Red Cell Distribution Width 20.5 % (11.5-14.5)
[2021-05-09 05:14] LABS: Alanine Aminotransferase 21 U/L (4-35); Albumin Level 2.5 g/dL (3.5-5.1); Alkaline Phosphatase 87 U/L (38-126); Anion Gap 5 mmol/L (8-16); Aspartate Amino Transferase 46 U/L (14-36); Bilirubin,Total < 0.1 mg/dL (0.2-1.3); Blood Urea Nitrogen 30 mg/dL (7-17); Calcium 8.1 mg/dL (8.4-10.2); Carbon Dioxide 28 mmol/L (22-30); Chloride 107 mmol/L (98-107); Estimated CRCL calculation 40 ml/min; Estimated Glomerular Filt Rate 54; Glucose 121 mg/dL (65-110); Magnesium 2.1 mg/dL (1.6-2.3); Phosphorus 4.7 mg/dL (2.5-4.5); Potassium 3.8 mmol/L (3.4-5.0); Sodium 140 mmol/L (137-145)
[2021-05-09] MEDS: CENTRAL LINE FLUSH 10 ML IV PUSH ×4 (05:21→21:15)
[2021-05-09 05:22] LABS: Alveolar/Arterial O2 Gradient 101.4 mmHg; Base Excess ABG 2.6 mEq/l (+/-2.0); Carboxyhemoglobin 0.3 % THb (0-2.0); Fractional Inspired Oxygen 30 %; HCO3 ABG 25.9 mEq/l (22.0-26.0); Methemoglobin ABG 0.5 %THb (0-1.5); Oxygen Saturation ABG 95.8 % (95.0-100.0); Oxyhemoglobin 92.5 % THb (90.0-100.0); PCO2 ABG 34.1 mmHg (35.0-45.0); PO2 ABG 72.4 mmHg (80.0-100.0); PO2 FiO2 Ratio Arterial Blood 2.41 %; Reduced Hemoglobin 6.7 %THb (0-5.0); pH ABG 7.498 (7.350-7.450)
[2021-05-09 05:23] LABS: Device VENTILATOR; Modified Allen's Test Unable to perform; Site Drawn LEFT RADIAL; Total Hemoglobin 7.6 g/dL (12.0-18.0)
[2021-05-09 05:24] LABS: Arterial Blood Gas PEEP 5 cmH2O; Arterial Blood Gas Vent Mode ASV
[2021-05-09 05:41] LABS: Hemoglobin 6.5 g/dL (12.0-15.0)
[2021-05-09] MEDS: levETIRAcetam ORAL SOL 500 MG/5 ML UDC FEED TUBE ×2 (09:20→21:15)
[2021-05-09] MEDS: MUPIROCIN 2% OINT 22 GM TUBE 1 APPLIC TOPICAL (09:20)
[2021-05-09] MEDS: MINERAL OIL/WHITE PETROLATUM OINTMENT 1 APPLIC EACH EYE ×2 (09:22→21:15)
[2021-05-09] MEDS: PANTOPRAZOLE SODIUM IV 40 MG VIAL IV PUSH ×2 (09:26→21:15)
[2021-05-09] MEDS: INSULIN GLARGINE (*BKC) 100 UNITS/ML 40 UNITS SUB-Q (09:26)
--- NOTE | 2021-05-09 09:35 | WPDINTPN ---
Progress Note: A&P Assessment and Plan (1) Anemia: Code(s): D64.9 - Anemia, unspecified Status: Acute Assessment and Plan: Anemia could be related to multiple factors, patient has had history of anemia in the past requiring blood transfusion, could be GI loss -Lovenox currently on hold -patient received 1 unit of packed RBCs on 03/03/2022. Transfuse 1 more unit today -continue PPI q.12 hours -continue to monitor hemoglobin and hematocrit q.8 hours for next 24 hours (2) Cardiac arrest: Code(s): I46.9 - Cardiac arrest, cause unspecified Status: Acute Assessment and Plan: I suspect this is primary respiratory event secondary to aspiration Down time estimated to be close to 45 minutes Shock has resolved Troponin plateaued. Recent echocardiogram reviewed Patient post target temperature management, was appropriately cold and rewarmed (3) Encephalopathy acute: Code(s): G93.40 - Encephalopathy, unspecified Status: Acute Assessment and Plan: Given patient's down time during the cardiac arrest suspect patient has anoxic brain injury. Patient had poor neurological function to start with at baseline. On last admission patient was nonverbal and did not follow any commands but was awake post extubation. 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 - unable to perform an MRI on a vented patient in [facility]. Patient had a unwitnessed cardiac arrest with non shockable rhythm with unknown downtime which is of likely respiratory etiology. She completed a moderate TTM protocol -neurology is following -CT head on admission: No change of large calcified brain mass since 04/15/2021; no acute intracranial findings since 04/15/2021 Fluid levels in some of the paranasal sinuses since 04/15/2021 -05/03/2021: EEG showed no evidence of cortical activity - 05/07 EEG - abnormal record due to the presence of very low-voltage activity over the left hemisphere and due to the presence of intermittent delta activity over the right hemisphere with decrement in the electrical activity. These findings are suggestive of underlying focal structural lesion of the right hemisphere there is no evidence of abnormal seizure-like discharges clinical correlation recommended -Keppra resumed 05/08 -patient is completely off sedation -no meaningful improvement in neuro status in last 1 week (4) Respiratory failure: Code(s): J96.90 - Respiratory failure, unspecified, unspecified whether with hypoxia or hypercapnia Status: Acute Assessment and Plan: Acute Respiratory failure secondary to cardiac arrest and suspected aspiration pneumonia Continue full mechanical ventilation support to prevent hypoxemia/hypercarbia and end organ damage. Vent settings reviewed and ABGs been. Continue peep of 5 and 30% FiO2 PCXR reviewed - Stable diffuse lung disease, consistent with pneumonia. Low tidal volume ventilation strategy to prevent volutrauma Bronchodilators (5) Aspiration pneumonia: Qualifiers: Aspiration pneumonia type: unspecified Laterality: right Lung location: lower lobe of lung Qualified Code(s): J69.0 - Pneumonitis due to inhalation of food and vomit Code(s): J69.0 - Pneumonitis due to inhalation of food and vomit Status: Acute Assessment and Plan: Sputum cultures grew MSSA and pansensitive Pseudomonas Blood culture grew coag-negative staph which was likely contaminant and Corynebacterium from the other bottle which is also likely contaminant. But both should be covered with Zosyn Continue empiric Zosyn COVID PCR is negative (6) Seizure: Code(s): R56.9 - Unspecified convulsions Status: Acute Assessment and Plan: Keppra was discontinued earlier due to family's request 05/[address] Morley with Neurology. He witnessed a jerky movement of right arm suggestive
[2021-05-09] MEDS: SODIUM CHLORIDE 0.9% IV 250 ML 30 ML IV CONT ×3 (09:54→23:00)
[2021-05-09] MEDS: ALBUMIN HUMAN 25% 25 GM/100 ML 100 ML IVPB ×2 (12:18→18:01)
--- NOTE | 2021-05-09 12:20 | PCFNICU ---
ICU Rounding Note: Pt current nutrition is Glucerna 1.2 at 50 ml/hr over 22 hours. Last recorded weight is 69.3 kg, down from 70.2 kg on admit. Bowel Motility:FMS Labs Reviewed:PO4 4.7,Glu 121,GFR 54, BUN 30, Alb 2.5,Hgb 6.5,Hct 21.7 Meds Noted:Lantus, Protonix, Zosyn, Keppra, Atrovent, NS Skin: Stage II pressure ulcer-saccum, left heel. Additional Notes: Patient remains on mechanical vent with tube feedings of Glucerna 1.2 currently on 50 ml/hr per nursing, goal rate at 70 ml/hr. Tolerating tube feedings. Protein Modular of Robbie BID flushed via tube for wound healing. Agree with diet orders. Following daily in ICU rounds. Will monitor every Friday and Friday.
[2021-05-09] MEDS: MIDODRINE HCL 10 MG TABLET PO ×2 (12:27→17:33)
[2021-05-09 12:30] LABS: Glucose Point of Care 151 mg/dl (65-105)
--- NOTE | 2021-05-09 14:07 | PM.EVENT ---
Event Note Event Note Event Note: GI bleed more apparent now as patient is having bloody bowel movements. Blood pressure also dropped Normal saline bolus D5 normal saline at 100 mL/hour and DC tube feeds PPI IV q.12 hours CBC q.4 hours Transfuse for hemoglobin less than 7
[2021-05-09] MEDS: SODIUM CHLORIDE 0.9% IV 1,000 ML 999 ML IV CONT ×3 (14:14→22:00)
[2021-05-09 15:45] LABS: Mean Corpuscular HGB Conc 31.1 g/dl (32-36); Mean Corpuscular Hemoglobin 28.2 pg (26-34); Mean Platelet Volume 8.8 fl (7.4-10.4); Platelet Count Result 242 k/mm3 (150-375); Red Blood Count 1.77 M/mm3 (4.2-5.4)
--- NOTE | 2021-05-09 15:46 | WPDGICN ---
Assessment and Plan Assessment and plan (1) GI bleed: Code(s): K92.2 - Gastrointestinal hemorrhage, unspecified Status: Acute Assessment and Plan: Patient with new evidence for GI bleeding. Began shortly after noon today. Has not been evident before in fact previous stool hemoccults were negative. Suspect patient may have upper GI blood loss although ischemic bowel cannot be excluded. Plan to continue PPI therapy at a b.i.d. dose. Hemoglobin to be monitored closely she is currently receiving transfusion will ask them to perform H&Hs every 4 hours tonight. Given her significant comorbid diseases invasive testing such as EGD does not appear propria for this patient. Continue supportive care. Will hold tube feedings for the immediate future. Continue monitor hemoglobin closely and transfuse as necessary. (2) Respiratory failure: Code(s): J96.90 - Respiratory failure, unspecified, unspecified whether with hypoxia or hypercapnia Status: Acute (3) Brain mass: Code(s): G93.89 - Other specified disorders of brain Status: Acute (4) Seizure: Code(s): R56.9 - Unspecified convulsions Status: Acute (5) Chronic anemia: Code(s): D64.9 - Anemia, unspecified Status: Acute Assessment and Plan: Patient has a chronic baseline anemia. Decline in hemoglobin noted this morning along with blood later in the day the through her fecal tube suggest GI blood loss. Etiology of this remains unclear. Suspicious for upper GI blood loss possible stress ulceration but other etiologies such as ischemic blood loss cannot be excluded. Patient on able to be transported for nuclear medicine blood scan in appears to be inappropriate for invasive testing such as EGD. Will continue PPI therapy and monitor hemoglobin closely. (6) Insulin dependent type 2 diabetes mellitus: Code(s): E11.9 - Type 2 diabetes mellitus without complications; Z79.4 - exterminator termite (current) use of insulin Status: Acute (7) G tube feedings: Code(s): Z93.1 - Gastrostomy status Status: Acute Assessment and Plan: Will hold tube feedings currently given her apparent active GI blood loss. There is the possibility of invasive testing. Will follow with you. GI Consult Note Consult date/time: 05/09/21 15:46 HPI: Linette Vásquez is a 76 year old female I am asked to see for blood in her stool. Patient initially admitted the hospital February 27. She was at a care home. She has a previous history of dementia insulin-dependent diabetes. She has dysphagia with a PEG tube in place chronic anemia. She has a brain tumor status post radiation and resection of the frontal lobe mass has had seizures. COVID-19 in 2019. She was on the ventilator for quite some time eventually extubated sent to the care home April 30 had a cardiopulmonary arrest which was suspicious for possible aspiration. Apparently had of down time for 45 minutes. Now it reintubated in the ICU unresponsive. Today was noticed to have some blood in her fecal 2. Slight decline in hemoglobin was noted from baseline of 8.5 to approximately 6.5. Slight decline in blood pressures noted I have been consulted. Patient received 1unit of packed cells on 05/04. She is receiving 1unit of blood currently. Nutrition is been via G-tube. Tolerated well with no emesis. Review of Systems Review of Systems: ROS unobtainable: Yes unobtainable due to endotracheal tube and unobtainable due to mental status PMFSH Past Medical History Medical History Chronic anemia Chronic GERD Chronic indwelling Hodge catheter Dementia Dysphagia Peg tube in-situ. Elevated transaminase level Appears chronic. 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
[2021-05-09 15:51] LABS: Hematocrit 16.1 % (37.0-47.0)
[2021-05-09] MEDS: NOREPINEPHRINE 8 MG/D5W 250 ML 8 MG/250 ML BAG 9.38 MG IV CONT (16:07)
[2021-05-09] MEDS: DEXTROSE 5%/0.9% SOD CHL 1,000 ML 100 ML IV CONT (16:08)
[2021-05-09 18:49] LABS: Glucose Point of Care 136 mg/dl (65-105)
[2021-05-09 18:59] LABS: Hematocrit 23.9 % (37.0-47.0); Hemoglobin 7.9 g/dL (12.0-15.0); Mean Corpuscular HGB Conc 33.1 g/dl (32-36); Mean Corpuscular Hemoglobin 30.3 pg (26-34); Mean Corpuscular Volume 91.6 fl (80-100); Mean Platelet Volume 9.1 fl (7.4-10.4); Platelet Count Result 204 k/mm3 (150-375); Red Blood Count 2.61 M/mm3 (4.2-5.4); Red Cell Distribution Width 14.9 % (11.5-14.5); White Blood Count 22.5 K/mm3 (4.5-10.0)
[2021-05-09 19:14] LABS: INR 1.5; Prothrombin Time 17.8 Seconds (11.1-14.7)
[2021-05-09 19:15] LABS: Partial Thromboplastin Time 34.1 SECONDS (22.3-36.8)
[2021-05-09 22:04] LABS: Mean Corpuscular HGB Conc 33.9 g/dl (32-36); Mean Corpuscular Hemoglobin 30.8 pg (26-34); Mean Corpuscular Volume 90.7 fl (80-100); Mean Platelet Volume 9.7 fl (7.4-10.4); Platelet Count Result 199 k/mm3 (150-375); Red Blood Count 1.82 M/mm3 (4.2-5.4); Red Cell Distribution Width 14.8 % (11.5-14.5); White Blood Count 29.1 K/mm3 (4.5-10.0)
--- NOTE | 2021-05-09 22:06 | PC.NURSE ---
Family called and was asking about patients blood sugar, EEG results and her fluid status. I explained her blood sugar has been normal and we will continue to monitor every 6 hours. They stated that they have not been getting calls about changes and I informed them that taking care of the patient is our first priority and that we would call when appropriate. I answered questions about the fluid drip and blood pressure medication and inform them that her blood pressure was 73/41. they continued to ask questions for another 15 minutes. I reminded them that I need to care for the patient and we ended the phone call.
[2021-05-09 22:12] LABS: Hemoglobin 5.6 g/dL (12.0-15.0)
[2021-05-09 22:13] LABS: Hematocrit 16.5 % (37.0-47.0)
[2021-05-09 22:34] LABS: Alveolar/Arterial O2 Gradient 97.4 mmHg; Base Excess ABG -3.2 mEq/l (+/-2.0); Fractional Inspired Oxygen 30 %; HCO3 ABG 21.2 mEq/l (22.0-26.0); Oxygen Content ABG 7.6 %vol (16.0-22.0); Oxygen Saturation ABG 95.7 % (95.0-100.0); Oxyhemoglobin 93.1 % THb (90.0-100.0); PCO2 ABG 34.2 mmHg (35.0-45.0); PO2 ABG 77.1 mmHg (80.0-100.0); PO2 FiO2 Ratio Arterial Blood 2.57 %
[2021-05-09 22:39] LABS: Modified Allen's Test Pass; Site Drawn RIGHT BRACHIAL; Total Hemoglobin 5.7 g/dL (12.0-18.0)
[2021-05-09 22:40] LABS: Device VENTILATOR
[2021-05-09 22:41] LABS: Arterial Blood Gas PEEP 5 cmH2O; Arterial Blood Gas Vent Mode ASV
[2021-05-09] MEDS: VASOPRESSIN INJ 100 UNITS in DEXTROSE 5% 95 ML IV CONT (22:44)
[2021-05-10] VITALS (34 sets, daily range): BP systolic 96–155; BP diastolic 43–60; PULSE 66–91; RESP 10–22; TEMP 35.8–36.6; O2SAT 97–100
[2021-05-10 00:09] LABS: Glucose Point of Care 282 mg/dl (65-105)
[2021-05-10] MEDS: ALBUMIN HUMAN 25% 25 GM/100 ML 100 ML IVPB ×2 (00:13→06:00)
[2021-05-10] MEDS: INSULIN ASPART (*BKC) 100 UNITS/ML SUB-Q ×2 (00:15→06:00)
[2021-05-10] MEDS: DEXTROSE 5%/0.9% SOD CHL 1,000 ML 100 ML IV CONT (02:10)
[2021-05-10] MEDS: ALBUTEROL SULFATE NEB 2.5 MG/0.5 ML INH INHALATION ×4 (03:04→20:39)
[2021-05-10] MEDS: IPRATROPIUM BR 0.02% INH SOLN 0.5 MG/2.5 ML VIAL INHALATION ×4 (03:04→20:39)
[2021-05-10 05:35] LABS: Glucose Point of Care 267 mg/dl (65-105)
--- NOTE | 2021-05-10 05:40 | PC.NURSE ---
Patients brother was called and I left a message that I wanted to update him on his sisters status. He called back several hours later and I updated him about her blood loss and the plan is to give her more units of prbc, draw labs and get a ct of her abd/pelvis and that the doctors will look at all the results and make a plan. I also explained that I did not have the patients MAC's phone number so he gave it to me for future use. I asked him to please update her and that if they have any more questions to please call me.
[2021-05-10] MEDS: CENTRAL LINE FLUSH 10 ML IV PUSH ×4 (06:11→20:11)
[2021-05-10 06:27] LABS: Alveolar/Arterial O2 Gradient 83.9 mmHg; Base Excess ABG -5.9 mEq/l (+/-2.0); Carboxyhemoglobin 0.3 % THb (0-2.0); Fractional Inspired Oxygen 30 %; HCO3 ABG 18.6 mEq/l (22.0-26.0); Methemoglobin ABG 0.5 %THb (0-1.5); Oxygen Content ABG 15.5 %vol (16.0-22.0); Oxygen Saturation ABG 96.7 % (95.0-100.0); PCO2 ABG 33.6 mmHg (35.0-45.0); PO2 ABG 90.5 mmHg (80.0-100.0); PO2 FiO2 Ratio Arterial Blood 3.02 %; Reduced Hemoglobin 4.2 %THb (0-5.0); Total Hemoglobin 11.5 g/dL (12.0-18.0); pH ABG 7.362 (7.350-7.450)
[2021-05-10 06:29] LABS: Device VENTILATOR; Modified Allen's Test Pass; Site Drawn RIGHT RADIAL
[2021-05-10 06:31] LABS: Arterial Blood Gas PEEP 5 cmH2O; Arterial Blood Gas Vent Mode ASV
[2021-05-10 06:44] LABS: Hematocrit 26.4 % (37.0-47.0); Hemoglobin 9.2 g/dL (12.0-15.0); Mean Corpuscular HGB Conc 34.8 g/dl (32-36); Mean Corpuscular Volume 88.9 fl (80-100); Mean Platelet Volume 9.3 fl (7.4-10.4); Platelet Count Result 120 k/mm3 (150-375); Red Blood Count 2.97 M/mm3 (4.2-5.4); Red Cell Distribution Width 14.7 % (11.5-14.5); White Blood Count 18.7 K/mm3 (4.5-10.0)
[2021-05-10] MEDS: NOREPINEPHRINE 8 MG/D5W 250 ML 8 MG/250 ML BAG 7.5 MG IV CONT (07:00)
[2021-05-10 07:27] LABS: Alanine Aminotransferase 11 U/L (4-35); Alkaline Phosphatase 39 U/L (38-126); Anion Gap 7 mmol/L (8-16); Aspartate Amino Transferase 29 U/L (14-36); Bilirubin,Total 0.5 mg/dL (0.2-1.3); Blood Urea Nitrogen 29 mg/dL (7-17); Calcium 6.9 mg/dL (8.4-10.2); Carbon Dioxide 20 mmol/L (22-30); Chloride 113 mmol/L (98-107); Estimated CRCL calculation 56 ml/min; Estimated Glomerular Filt Rate > 60; Glucose 266 mg/dL (65-110); Magnesium 1.6 mg/dL (1.6-2.3); Potassium 2.8 mmol/L (3.4-5.0); Sodium 140 mmol/L (137-145)
[2021-05-10] MEDS: KCL 20 MEQ/D5/0.45% SOD CHL 1,000 ML 50 ML IV CONT (10:49)
--- NOTE | 2021-05-10 10:51 | WPDINTPN ---
Progress Note: A&P Assessment and Plan (1) GI bleed: Code(s): K92.2 - Gastrointestinal hemorrhage, unspecified Status: Acute Assessment and Plan: New onset significant GI bleed leading to hypotension Patient was not on any anticoagulation or antiplatelet agents Tube feeds were stopped Patient's hemoglobin was monitor and patient has received 5 units of PRBC Patient's coags are abnormal but not enough explain GI bleeding Patient was seen by GI Continue to hold tube feeds Continue monitor hemoglobin. Transfuse as needed. Will give FFP if additional PRBCs need to be transfused CT abdomen pelvis was done IMPRESSION: 1. Atelectasis and pneumonia of the visualized lower lobes. 2. Hyperattenuating fluid in the cecum which could reflect the site of GI bleed. (2) Shock: Code(s): R57.9 - Shock, unspecified Status: Acute Assessment and Plan: Secondary to GI blood loss Patient was given IV fluid bolus and is on maintenance IV fluids Continue Levophed titration to maintain map Earlier she presented with a shock that was mixture of septic and cardiogenic after cardiac arrest She was weaned off vasopressors OFF stress dose steroids She is on Zosyn (04/30), vancomycin (05/02) has been discontinued as her cultures were negative She was getting midodrine and 25% albumin (3) Anemia: Code(s): D64.9 - Anemia, unspecified Status: Acute Assessment and Plan: Anemia secondary to GI bleed with underlying chronic disease See above (4) Cardiac arrest: Code(s): I46.9 - Cardiac arrest, cause unspecified Status: Acute Assessment and Plan: I suspect this is primary respiratory event secondary to aspiration Down time estimated to be close to 45 minutes Shock has resolved Troponin plateaued. Recent echocardiogram reviewed Patient post target temperature management, was appropriately cold and rewarmed (5) Encephalopathy acute: Code(s): G93.40 - Encephalopathy, unspecified Status: Acute Assessment and Plan: Given patient's down time during the cardiac arrest suspect patient has anoxic brain injury. Patient had poor neurological function to start with at baseline. On last admission patient was nonverbal and did not follow any commands but was awake post extubation. 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 - unable to perform an MRI on a vented patient in [facility]. Patient had a unwitnessed cardiac arrest with non shockable rhythm with unknown downtime which is of likely respiratory etiology. She completed a moderate TTM protocol -neurology is following -CT head on admission: No change of large calcified brain mass since 04/15/2021; no acute intracranial findings since 04/15/2021 Fluid levels in some of the paranasal sinuses since 04/15/2021 -05/03/2021: EEG showed no evidence of cortical activity - 05/07 EEG - abnormal record due to the presence of very low-voltage activity over the left hemisphere and due to the presence of intermittent delta activity over the right hemisphere with decrement in the electrical activity. These findings are suggestive of underlying focal structural lesion of the right hemisphere there is no evidence of abnormal seizure-like discharges clinical correlation recommended -Keppra resumed 05/08 -patient is completely off sedation -no meaningful improvement in neuro status in last 1 week (6) Respiratory failure: Code(s): J96.90 - Respiratory failure, unspecified, unspecified whether with hypoxia or hypercapnia Status: Acute Assessment and Plan: Acute Respiratory failure secondary to cardiac arrest and suspected aspiration pneumonia Continue full mechanical ventilation support to prevent hypoxemia/hypercarbia and end organ damage. Vent settings reviewed and ABGs been. Continue peep of 5 and 30% FiO2 PCXR reviewed - Stable diffuse lung d
[2021-05-10] MEDS: PANTOPRAZOLE SODIUM IV 40 MG VIAL IV PUSH ×2 (10:56→20:10)
[2021-05-10] MEDS: CALCIUM GLUC 2,000 MG/NS 100ML 2,000 MG/100 ML BAG 100 MG IVPB (10:56)
[2021-05-10] MEDS: levETIRAcetam ORAL SOL 500 MG/5 ML UDC FEED TUBE ×2 (10:56→20:10)
[2021-05-10] MEDS: POTASSIUM CHLORIDE 20 MEQ PACKET (FOR LIQUID) 40 MEQ FEED TUBE (10:56)
[2021-05-10] MEDS: MIDODRINE HCL 10 MG TABLET PO ×3 (10:56→17:03)
[2021-05-10] MEDS: MINERAL OIL/WHITE PETROLATUM OINTMENT 1 APPLIC EACH EYE ×2 (10:56→20:10)
[2021-05-10] MEDS: KCL 40 MEQ/WATER 100 ML 100 ML 25 ML IVPB (10:56)
[2021-05-10] MEDS: MUPIROCIN 2% OINT 22 GM TUBE 1 APPLIC TOPICAL (10:57)
--- NOTE | 2021-05-10 11:31 | PCFNICU ---
ICU Rounding Note: Pt current nutrition is NPO. Last recorded weight is 69.3 kg, down from 70.2 kg on admit. Bowel Motility:FMS Labs Reviewed:Hgb 9.2,Hct 26.4,BUN 29, Glu 266 Meds Noted:Lantus, Protonix, Zosyn, Keppra, Atrovent,Levophed, Potassium chloride. Skin: stage II PU-left heel, and saccum. Additional Notes: Patient currently NPO. GI bleed reported. Several units of blood given per nursing. GI consulted. CT scan today. Following daily in ICU rounds. Will monitor every Friday and Friday.
[2021-05-10 12:04] LABS: Glucose Point of Care 169 mg/dl (65-105)
[2021-05-10 12:10] LABS: Hematocrit 23.2 % (37.0-47.0); Mean Corpuscular HGB Conc 34.5 g/dl (32-36); Mean Corpuscular Hemoglobin 30.8 pg (26-34); Mean Corpuscular Volume 89.2 fl (80-100); Mean Platelet Volume 9.6 fl (7.4-10.4); Platelet Count Result 92 k/mm3 (150-375); White Blood Count 14.3 K/mm3 (4.5-10.0)
--- NOTE | 2021-05-10 12:50 | WPDGIPROGNO ---
Progress Note: A&P Assessment and Plan (1) Cardiac arrest: Code(s): I46.9 - Cardiac arrest, cause unspecified Status: Acute Assessment and Plan: Patient now intubated after cardiopulmonary arrest. Poor overall prognosis. (2) Encephalopathy: Code(s): G93.40 - Encephalopathy, unspecified Status: Acute Assessment and Plan: Patient not responding. Appears to have suffered significant hypoxic encephalopathy. Neurology service following. (3) Respiratory failure: Code(s): J96.90 - Respiratory failure, unspecified, unspecified whether with hypoxia or hypercapnia Status: Acute Assessment and Plan: Patient continues on the ventilator. No signs ability to wean off the ventilator at this point. (4) Aspiration pneumonia: Qualifiers: Aspiration pneumonia type: unspecified Laterality: right Lung location: lower lobe of lung Qualified Code(s): J69.0 - Pneumonitis due to inhalation of food and vomit Code(s): J69.0 - Pneumonitis due to inhalation of food and vomit Status: Acute (5) Brain tumor: Code(s): D49.6 - Neoplasm of unspecified behavior of brain Status: Acute (6) Seizure: Code(s): R56.9 - Unspecified convulsions Status: Acute (7) G tube feedings: Code(s): Z93.1 - Gastrostomy status Status: Acute Assessment and Plan: Patient has been tolerating G-tube feedings. These are on hold because of recent GI blood loss. (8) GI bleed: Code(s): K92.2 - Gastrointestinal hemorrhage, unspecified Status: Acute Assessment and Plan: Patient with significant GI bleed yesterday. Likely bled equivocal and a 4-5 units of packed red blood cells. Currently hemoglobin appears to have responded appropriately to transfusions. I had a long discussion with the ribbing machine operator today. Invasive testing on this patient would not clinically be beneficial. NG tube lavage reveals no evidence of bleeding in the upper GI source. CT scan reveals no evidence of perforation. There is a question of bleeding from the cecal area. No obvious ischemic changes by this testing. Would recommend continuing PPI therapy. Continue to monitor hemoglobin. Transfuse if necessary. Code status should be re-evaluated on this patient as she appears to have continued poor prognosis. Subjective Date/time seen: 05/10/21 12:50 Patient remains intubated on the ventilator and unresponsive. Nursing staff reports less frequent stooling. Vital signs are improving somewhat. Review of Systems Review of Systems: ROS unobtainable: Yes unobtainable due to endotracheal tube and unobtainable due to medical condition Exam Narrative: On physical exam patient remains on ventilator. Unresponsive. She is anicteric. Lungs reveal bilateral rhonchi. Heart without murmur. Abdomen is obese. Gastrostomy tube left upper quadrant appears well healed. Bowel sounds diminished soft somewhat obese no organomegaly evident. Objective Data Vital Signs Vital Signs: Vital Signs - 24 hr 05/09/21 13:48 05/09/21 14:00 05/09/21 14:01 Temperature 97.9 F Pulse Rate 110 H 107 H Respiratory Rate 19 Blood Pressure 99/42 L 63/35 L 54/42 L Pulse Oximetry 96 05/09/21 14:10 05/09/21 14:15 05/09/21 14:18 Temperature Pulse Rate 107 H 107 H Respiratory Rate 16 17 Blood Pressure 86/41 L 77/44 L Pulse Oximetry 05/09/21 14:21 05/09/21 14:23 05/09/21 16:00 Temperature Pulse Rate 106 H 101 H Respiratory Rate Blood Pressure 81/40 L Pulse Oximetry 97 91 05/09/21 16:07 05/09/21 16:28 05/09/21 16:45 Temperature 98.7 F 98.2 F Pulse Rate 100 102 H 105 H Respiratory Rate 16 16 Blood Pressure 90/39 L 103/48 L 101/48 L Pulse Oximetry 96 93 05/09/21 17:19 05/09/21 17:20 05/09/21 17:55 Temperature 98.1 F 98.1 F Pulse Rate 103 H 100 106 H Respiratory Rate 15 23 H Blood Pressure 106/52 L 106/52 L Pulse Oximetry 98
[2021-05-10 16:56] LABS: Anion Gap 4 mmol/L (8-16); Blood Urea Nitrogen 21 mg/dL (7-17); Calcium 7.8 mg/dL (8.4-10.2); Carbon Dioxide 21 mmol/L (22-30); Chloride 117 mmol/L (98-107); Estimated CRCL calculation 56 ml/min; Estimated Glomerular Filt Rate > 60; Glucose 136 mg/dL (65-110); Potassium 4.3 mmol/L (3.4-5.0); Sodium 142 mmol/L (137-145)
[2021-05-10 18:15] LABS: Hematocrit 23.7 % (37.0-47.0); Hemoglobin 8.1 g/dL (12.0-15.0); Mean Corpuscular HGB Conc 34.2 g/dl (32-36); Mean Corpuscular Hemoglobin 30.6 pg (26-34); Mean Corpuscular Volume 89.4 fl (80-100); Mean Platelet Volume 9.5 fl (7.4-10.4); Platelet Count Result 108 k/mm3 (150-375); Red Blood Count 2.65 M/mm3 (4.2-5.4); Red Cell Distribution Width 15.4 % (11.5-14.5); White Blood Count 15.7 K/mm3 (4.5-10.0)
[2021-05-10] MEDS: DEXTROSE 5%/0.225% SOD CHL 1,000 ML 50 ML IV CONT (20:10)
[2021-05-11] VITALS (27 sets, daily range): BP systolic 101–126; BP diastolic 37–53; PULSE 58–78; RESP 12–26; TEMP 36.3–36.9; O2SAT 97–100
[2021-05-11 00:18] LABS: Glucose Point of Care 109 mg/dl (65-105)
[2021-05-11] MEDS: ALBUTEROL SULFATE NEB 2.5 MG/0.5 ML INH INHALATION ×4 (02:25→20:38)
[2021-05-11] MEDS: IPRATROPIUM BR 0.02% INH SOLN 0.5 MG/2.5 ML VIAL INHALATION ×4 (02:35→20:38)
[2021-05-11 03:44] LABS: Hematocrit 24.2 % (37.0-47.0); Hemoglobin 8.1 g/dL (12.0-15.0); Mean Corpuscular HGB Conc 33.5 g/dl (32-36); Mean Corpuscular Hemoglobin 30.9 pg (26-34); Mean Corpuscular Volume 92.4 fl (80-100); Mean Platelet Volume 10.4 fl (7.4-10.4); Platelet Count Result 131 k/mm3 (150-375); Red Blood Count 2.62 M/mm3 (4.2-5.4); Red Cell Distribution Width 15.7 % (11.5-14.5); White Blood Count 17.4 K/mm3 (4.5-10.0)
[2021-05-11 04:06] LABS: Hematocrit 23.4 % (37.0-47.0); Hemoglobin 7.9 g/dL (12.0-15.0); Mean Corpuscular HGB Conc 33.8 g/dl (32-36); Mean Corpuscular Hemoglobin 30.9 pg (26-34); Mean Corpuscular Volume 91.4 fl (80-100); Mean Platelet Volume 9.8 fl (7.4-10.4); Platelet Count Result 126 k/mm3 (150-375); Red Blood Count 2.56 M/mm3 (4.2-5.4); Red Cell Distribution Width 15.6 % (11.5-14.5); White Blood Count 16.8 K/mm3 (4.5-10.0)
[2021-05-11 04:10] LABS: Alanine Aminotransferase 12 U/L (4-35); Albumin Level 2.8 g/dL (3.5-5.1); Alkaline Phosphatase 50 U/L (38-126); Anion Gap 6 mmol/L (8-16); Aspartate Amino Transferase 41 U/L (14-36); Bilirubin,Total 0.4 mg/dL (0.2-1.3); Blood Urea Nitrogen 16 mg/dL (7-17); Carbon Dioxide 20 mmol/L (22-30); Chloride 115 mmol/L (98-107); Estimated CRCL calculation 56 ml/min; Estimated Glomerular Filt Rate > 60; Glucose 114 mg/dL (65-110); Magnesium 1.7 mg/dL (1.6-2.3); Phosphorus 2.3 mg/dL (2.5-4.5); Potassium 3.6 mmol/L (3.4-5.0); Sodium 141 mmol/L (137-145)
[2021-05-11 05:03] LABS: Alveolar/Arterial O2 Gradient 88.2 mmHg; Base Excess ABG -5.3 mEq/l (+/-2.0); Carboxyhemoglobin 0.2 % THb (0-2.0); Fractional Inspired Oxygen 30 %; HCO3 ABG 18.2 mEq/l (22.0-26.0); Methemoglobin ABG 0.5 %THb (0-1.5); Oxygen Content ABG 11.6 %vol (16.0-22.0); Oxygen Saturation ABG 97.4 % (95.0-100.0); Oxyhemoglobin 95.4 % THb (90.0-100.0); PO2 ABG 92.8 mmHg (80.0-100.0); PO2 FiO2 Ratio Arterial Blood 3.09 %; Reduced Hemoglobin 3.9 %THb (0-5.0); Total Hemoglobin 8.5 g/dL (12.0-18.0); pH ABG 7.431 (7.350-7.450)
[2021-05-11 05:04] LABS: Device VENTILATOR; Modified Allen's Test Pass; Site Drawn LEFT RADIAL
[2021-05-11 05:05] LABS: Arterial Blood Gas PEEP 5 cmH2O; Arterial Blood Gas Vent Mode ASV
[2021-05-11] MEDS: CENTRAL LINE FLUSH 10 ML IV PUSH ×4 (05:07→20:04)
--- NOTE | 2021-05-11 08:20 | WPDINTPN ---
Progress Note: A&P Assessment and Plan (1) GI bleed: Code(s): K92.2 - Gastrointestinal hemorrhage, unspecified Status: Acute Assessment and Plan: New onset significant GI bleed leading to hypotension Patient was not on any anticoagulation or antiplatelet agents Tube feeds are on hold Patient's hemoglobin was monitor and patient has received 5 units of PRBC 05/09 Patient's coags are abnormal but not enough explain GI bleeding Patient was seen by GI will recommend conservative management at this time Will discuss with GI regarding option of tube feeds She has not required any transfusion for last 24 hours. Continue to monitor hemoglobin. Transfuse as needed. Will give FFP if additional PRBCs need to be transfused CT abdomen pelvis was done IMPRESSION: 1. Atelectasis and pneumonia of the visualized lower lobes. 2. Hyperattenuating fluid in the cecum which could reflect the site of GI bleed. (2) Shock: Code(s): R57.9 - Shock, unspecified Status: Acute Assessment and Plan: Secondary to GI blood loss Patient was given IV fluid bolus and is on maintenance IV fluids She was started on Levophed but now off Earlier she presented with a shock that was mixture of septic and cardiogenic after cardiac arrest She was weaned off vasopressors OFF stress dose steroids She is on Zosyn (04/30), vancomycin (05/02) has been discontinued as her cultures were negative She was getting midodrine and 25% albumin (3) Anemia: Code(s): D64.9 - Anemia, unspecified Status: Acute Assessment and Plan: Anemia secondary to GI bleed with underlying chronic disease See above (4) Cardiac arrest: Code(s): I46.9 - Cardiac arrest, cause unspecified Status: Acute Assessment and Plan: I suspect this is primary respiratory event secondary to aspiration Down time estimated to be close to 45 minutes Shock has resolved Troponin plateaued. Recent echocardiogram reviewed Patient post target temperature management, was appropriately cold and rewarmed (5) Encephalopathy acute: Code(s): G93.40 - Encephalopathy, unspecified Status: Acute Assessment and Plan: Given patient's down time during the cardiac arrest suspect patient has anoxic brain injury. Patient had poor neurological function to start with at baseline. On last admission patient was nonverbal and did not follow any commands but was awake post extubation. 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 - unable to perform an MRI on a vented patient in [facility]. Patient had a unwitnessed cardiac arrest with non shockable rhythm with unknown downtime which is of likely respiratory etiology. She completed a moderate TTM protocol -neurology is following -CT head on admission: No change of large calcified brain mass since 04/15/2021; no acute intracranial findings since 04/15/2021 Fluid levels in some of the paranasal sinuses since 04/15/2021 -05/03/2021: EEG showed no evidence of cortical activity - 05/07 EEG - abnormal record due to the presence of very low-voltage activity over the left hemisphere and due to the presence of intermittent delta activity over the right hemisphere with decrement in the electrical activity. These findings are suggestive of underlying focal structural lesion of the right hemisphere there is no evidence of abnormal seizure-like discharges clinical correlation recommended -Keppra resumed 05/08 -patient is completely off sedation -no meaningful improvement in neuro status in last 1 week (6) Respiratory failure: Code(s): J96.90 - Respiratory failure, unspecified, unspecified whether with hypoxia or hypercapnia Status: Acute Assessment and Plan: Acute Respiratory failure secondary to cardiac arrest and suspected aspiration pneumonia Continue full mechanical ventilation support to prevent hypoxemia/hyperc
[2021-05-11] MEDS: DEXTROSE 5% 1,000 ML 1,000 ML 50 ML IV CONT (08:26)
[2021-05-11] MEDS: MIDODRINE HCL 10 MG TABLET PO ×3 (08:27→17:11)
[2021-05-11] MEDS: levETIRAcetam ORAL SOL 500 MG/5 ML UDC FEED TUBE ×2 (08:27→20:03)
[2021-05-11] MEDS: MINERAL OIL/WHITE PETROLATUM OINTMENT 1 APPLIC EACH EYE ×2 (08:27→20:03)
[2021-05-11] MEDS: MUPIROCIN 2% OINT 22 GM TUBE 1 APPLIC TOPICAL (08:28)
[2021-05-11] MEDS: SODIUM BICARBONATE TAB 650 MG TABLET 1300 MG FEED TUBE ×2 (08:28→17:11)
[2021-05-11] MEDS: PANTOPRAZOLE SODIUM IV 40 MG VIAL IV PUSH ×2 (08:28→20:03)
[2021-05-11] MEDS: POTASSIUM PHOS,M-BASIC-D-BASIC 20 MMOL in SODIUM CHLORIDE 0.9% IV 250 ML 64.17 MMOL IVPB (08:51)
[2021-05-11 12:00] LABS: Glucose Point of Care 115 mg/dl (65-105)
--- NOTE | 2021-05-11 12:00 | WPDGIPROGNO ---
Progress Note: A&P Assessment and Plan (1) GI bleed: Code(s): K92.2 - Gastrointestinal hemorrhage, unspecified Status: Acute Assessment and Plan: Patient is status post recent GI bleeding. At present time bleeding has resolved. Given her significant comorbid diseases investigation is likely to cause more harm than benefit. Plan to monitor hemoglobin transfuse only if necessary. We will keep her on PPI therapy for possible stress ulceration. No evidence of perforation or other lesions by recent CT scan. (2) Cardiac arrest: Code(s): I46.9 - Cardiac arrest, cause unspecified Status: Acute Assessment and Plan: Patient status post cardiopulmonary arrest at the time of presentation. Suspect she had additional cerebral injury. Anoxic encephalopathy suggested. I did discuss with neurologist today. She has some Brainstem activity. Significant cerebral injury is evident. (3) Brain mass: Code(s): G93.89 - Other specified disorders of brain Status: Acute Assessment and Plan: Patient has brain mass despite all these other problems that has caused her to be in the half-way for some time prior to admission. (4) Insulin dependent type 2 diabetes mellitus: Code(s): E11.9 - Type 2 diabetes mellitus without complications; Z79.4 - prison (current) use of insulin Status: Acute (5) G tube feedings: Code(s): Z93.1 - Gastrostomy status Status: Acute Assessment and Plan: G-tube feedings have been on hold for several days because of GI bleeding. Plan to restart G-tube feedings today as previously ordered. Subjective Date/time seen: 05/11/21 12:00 Patient remains unresponsive. Currently on the ventilator. Nursing staff reports only small amount of old blood passing per rectum. No evidence of blood on previous NG tube lavage. Minimal gastric residual. Patient has not been receiving tube feedings at this time. Review of Systems Review of Systems: ROS unobtainable: Yes unobtainable due to endotracheal tube and unobtainable due to mental status Exam Narrative: On physical exam patient does not respond to verbal or physical stimuli. HEENT exam reveals no icterus. Lungs reveal few rhonchi. Heart without murmur. Abdomen obese. Peg tube in place appears well healed and left upper quadrant. Objective Data Vital Signs Vital Signs: Vital Signs - 24 hr 05/10/21 13:03 05/10/21 14:00 05/10/21 14:16 Temperature 96.5 F L Pulse Rate 77 70 73 Respiratory Rate 22 H 19 Blood Pressure 120/50 L 100/53 L Pulse Oximetry 99 100 05/10/21 14:23 05/10/21 16:00 05/10/21 16:59 Temperature 96.6 F L Pulse Rate 72 70 70 Respiratory Rate 20 20 Blood Pressure 96/60 L Pulse Oximetry 99 100 05/10/21 18:00 05/10/21 20:00 05/10/21 20:39 Temperature 96.9 F L 97 F L Pulse Rate 68 67 69 Respiratory Rate 12 10 L 20 Blood Pressure 106/46 L 111/47 L Pulse Oximetry 99 98 05/10/21 20:40 05/10/21 22:00 05/10/21 23:36 Temperature 97.2 F L Pulse Rate 66 71 71 Respiratory Rate 13 Blood Pressure 111/46 L Pulse Oximetry 99 98 99 05/11/21 00:00 05/11/21 02:00 05/11/21 02:35 Temperature 97.4 F L 97.4 F L Pulse Rate 78 68 77 Respiratory Rate 17 12 17 Blood Pressure 112/50 L 101/49 L Pulse Oximetry 99 98 99 05/11/21 02:45 05/11/21 04:00 05/11/21 04:36 Temperature 97.5 F L Pulse Rate 67 71 69 Respiratory Rate 20 25 H Blood Pressure 105/48 L Pulse Oximetry 98 98 05/11/21 06:00 05/11/21 08:00 05/11/21 08:44 Temperature 97.6 F 97.6 F Pulse Rate 68 73 75 Respiratory Rate 17 18 18 Blood Pressure 103/48 L 106/47 L Pulse Oximetry 99 98 05/11/21 08:47 05/11/21 08:51 05/11/21 10:00 Temperature 97.4 F L Pulse Rate 73 73 70 Respiratory Rate 21 H 18 Blood Pressure 116/37 L Pulse Oximetry 99 98 05/11/21 11:37 Temperature Pulse Rate 66 Respiratory Rate Blood Pressure Pulse Oximetry 98
--- NOTE | 2021-05-11 12:48 | PCNFU ---
Nutrition Follow-Up Complete: Inadequate Oral Intake as related to intubation as evidenced by NPO. Goal: Meet estimated nutritional needs Patient is progressing towards goal. We will continue current goal. Pt current nutrition is Glucerna 1.2 at 40 ml/hr over 22 hours. Last recorded weight is 71.2 kg-stable Bowel Motility: FMS Labs Reviewed:Glu 113, PO4 2.3, Alb 2.8, Hgb 7.9,Hct 23.4 Meds Noted: Lantus, Protonix, Zosyn, Keppra, Atrovent,Levophed, sodium bicarbonate. Skin: stage II pressure ulcer-left heel and saccum. Additional Notes: Patient remains on mechanical vent. Patient seen today by GI. Tube feedings have been restarted with Glucerna 1.2 at 20 ml/hr advancing to goal rate of 40 ml/hr. Goal rate will provide patient with 1056 kcals/53 gms protein/708 ml water. Meeting 57% of caloric needs and 62% of protein needs. Patient does have a protein modular of Robbie BID flush via tube for wound healing. Free water flush 30 ml q 4 hours. Recommend tube feeding goal rate at 70 ml/hr providing 1848 kcals/92 gms protein/1240 ml water. Will monitor in ICU rounds and reassessing every Friday and Friday.
[2021-05-11 14:26] LABS: Hematocrit 23.8 % (37.0-47.0); Hemoglobin 8.1 g/dL (12.0-15.0); Mean Corpuscular Hemoglobin 30.6 pg (26-34); Mean Corpuscular Volume 89.8 fl (80-100); Platelet Count Result 150 k/mm3 (150-375); Red Blood Count 2.65 M/mm3 (4.2-5.4); Red Cell Distribution Width 15.8 % (11.5-14.5); White Blood Count 15.8 K/mm3 (4.5-10.0)
[2021-05-11 17:58] LABS: Glucose Point of Care 116 mg/dl (65-105)
[2021-05-11 22:08] LABS: Hematocrit 24.3 % (37.0-47.0); Hemoglobin 8.2 g/dL (12.0-15.0); Mean Corpuscular HGB Conc 33.7 g/dl (32-36); Mean Corpuscular Hemoglobin 30.9 pg (26-34); Mean Corpuscular Volume 91.7 fl (80-100); Mean Platelet Volume 9.6 fl (7.4-10.4); Platelet Count Result 188 k/mm3 (150-375); Red Blood Count 2.65 M/mm3 (4.2-5.4); Red Cell Distribution Width 15.9 % (11.5-14.5); White Blood Count 16.9 K/mm3 (4.5-10.0)
[2021-05-12] VITALS (28 sets, daily range): BP systolic 104–129; BP diastolic 43–51; PULSE 67–92; RESP 12–18; TEMP 36.8–37.1; O2SAT 96–99
[2021-05-12 00:31] LABS: Glucose Point of Care 123 mg/dl (65-105)
[2021-05-12] MEDS: IPRATROPIUM BR 0.02% INH SOLN 0.5 MG/2.5 ML VIAL INHALATION ×4 (02:22→19:11)
[2021-05-12] MEDS: ALBUTEROL SULFATE NEB 2.5 MG/0.5 ML INH INHALATION ×4 (02:22→19:11)
[2021-05-12 04:13] LABS: Hematocrit 24.1 % (37.0-47.0); Mean Corpuscular HGB Conc 33.2 g/dl (32-36); Mean Corpuscular Hemoglobin 30.9 pg (26-34); Mean Corpuscular Volume 93.1 fl (80-100); Mean Platelet Volume 9.8 fl (7.4-10.4); Platelet Count Result 202 k/mm3 (150-375); Red Blood Count 2.59 M/mm3 (4.2-5.4); Red Cell Distribution Width 15.9 % (11.5-14.5); White Blood Count 15.4 K/mm3 (4.5-10.0)
[2021-05-12 04:25] LABS: Alanine Aminotransferase 18 U/L (4-35); Albumin Level 2.8 g/dL (3.5-5.1); Alkaline Phosphatase 77 U/L (38-126); Anion Gap 6 mmol/L (8-16); Aspartate Amino Transferase 44 U/L (14-36); Bilirubin,Total < 0.1 mg/dL (0.2-1.3); Blood Urea Nitrogen 11 mg/dL (7-17); Calcium 8.1 mg/dL (8.4-10.2); Carbon Dioxide 21 mmol/L (22-30); Chloride 115 mmol/L (98-107); Estimated CRCL calculation 56 ml/min; Estimated Glomerular Filt Rate > 60; Glucose 163 mg/dL (65-110); Magnesium 1.8 mg/dL (1.6-2.3); Potassium 3.4 mmol/L (3.4-5.0); Sodium 142 mmol/L (137-145)
[2021-05-12 05:20] LABS: Alveolar/Arterial O2 Gradient 82.3 mmHg; Base Excess ABG -3.8 mEq/l (+/-2.0); Carboxyhemoglobin 0.1 % THb (0-2.0); Fractional Inspired Oxygen 30 %; HCO3 ABG 19.5 mEq/l (22.0-26.0); Methemoglobin ABG 0.6 %THb (0-1.5); Oxygen Content ABG 13.7 %vol (16.0-22.0); Oxygen Saturation ABG 97.7 % (95.0-100.0); Oxyhemoglobin 95.4 % THb (90.0-100.0); PCO2 ABG 29.3 mmHg (35.0-45.0); PO2 ABG 97.2 mmHg (80.0-100.0); PO2 FiO2 Ratio Arterial Blood 3.24 %; Reduced Hemoglobin 3.9 %THb (0-5.0); Total Hemoglobin 10.1 g/dL (12.0-18.0); pH ABG 7.441 (7.350-7.450)
[2021-05-12] MEDS: CENTRAL LINE FLUSH 10 ML IV PUSH ×4 (05:23→20:40)
[2021-05-12 05:27] LABS: Device VENTILATOR; Modified Allen's Test Pass; Site Drawn RIGHT RADIAL
[2021-05-12 05:30] LABS: Arterial Blood Gas PEEP 5 cmH2O; Arterial Blood Gas Vent Mode ASV
[2021-05-12] MEDS: DEXTROSE 5% 1,000 ML 1,000 ML 100 ML IVPB (06:32)
[2021-05-12] MEDS: PANTOPRAZOLE SODIUM IV 40 MG VIAL IV PUSH ×2 (08:02→20:40)
[2021-05-12] MEDS: levETIRAcetam ORAL SOL 500 MG/5 ML UDC FEED TUBE ×2 (08:02→20:40)
[2021-05-12] MEDS: MINERAL OIL/WHITE PETROLATUM OINTMENT 1 APPLIC EACH EYE ×2 (08:02→20:40)
[2021-05-12] MEDS: MIDODRINE HCL 10 MG TABLET PO ×3 (08:02→17:36)
--- NOTE | 2021-05-12 11:16 | WPDINTPN ---
Progress Note: A&P Assessment and Plan (1) Respiratory failure: Code(s): J96.90 - Respiratory failure, unspecified, unspecified whether with hypoxia or hypercapnia Status: Acute Assessment and Plan: Acute Respiratory failure secondary to cardiac arrest and suspected aspiration pneumonia Continue full mechanical ventilation support to prevent hypoxemia/hypercarbia and end organ damage. Vent settings reviewed and ABGs been. Continue peep of 5 and 30% FiO2. Currently in ASV mode PCXR reviewed - Stable diffuse lung disease, consistent with pneumonia. Low tidal volume ventilation strategy to prevent volutrauma Bronchodilators CT done 05/10 confirmed presence of pneumonia Patient was intubated on 04/30. at this time patient is not a candidate for extubation as she will not be able to protect her airway due to her mental status. If situation does not changes will proceed with tracheostomy next week. Patient's POA is agreeable to trach if needed. (2) Aspiration pneumonia: Qualifiers: Aspiration pneumonia type: unspecified Laterality: right Lung location: lower lobe of lung Qualified Code(s): J69.0 - Pneumonitis due to inhalation of food and vomit Code(s): J69.0 - Pneumonitis due to inhalation of food and vomit Status: Acute Assessment and Plan: Sputum cultures grew MSSA and pansensitive Pseudomonas Blood culture grew coag-negative staph which was likely contaminant and Corynebacterium from the other bottle which is also likely contaminant. But both should be covered with Zosyn Continue empiric Zosyn COVID PCR is negative (3) Encephalopathy acute: Code(s): G93.40 - Encephalopathy, unspecified Status: Acute Assessment and Plan: Given patient's down time during the cardiac arrest suspect patient has anoxic brain injury. Patient had poor neurological function to start with at baseline. On last admission patient was nonverbal and did not follow any commands but was awake post extubation. 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 - unable to perform an MRI on a vented patient in [facility]. Patient had a unwitnessed cardiac arrest with non shockable rhythm with unknown downtime which is of likely respiratory etiology. She completed a moderate TTM protocol -neurology is following -CT head on admission: No change of large calcified brain mass since 04/15/2021; no acute intracranial findings since 04/15/2021 Fluid levels in some of the paranasal sinuses since 04/15/2021 -05/03/2021: EEG showed no evidence of cortical activity - 05/07 EEG - abnormal record due to the presence of very low-voltage activity over the left hemisphere and due to the presence of intermittent delta activity over the right hemisphere with decrement in the electrical activity. These findings are suggestive of underlying focal structural lesion of the right hemisphere there is no evidence of abnormal seizure-like discharges clinical correlation recommended -Keppra resumed 05/08 -patient is completely off sedation for more than 1 week -no meaningful improvement in neuro status since admit (4) GI bleed: Code(s): K92.2 - Gastrointestinal hemorrhage, unspecified Status: Acute Assessment and Plan: New onset significant GI bleed leading to hypotension Patient was not on any anticoagulation or antiplatelet agents Tube feeds were hold Patient's hemoglobin was monitor and patient has received 5 units of PRBC 05/09 Patient's coags are abnormal but not enough explain GI bleeding Patient was seen by GI will recommend conservative management at this time She has not required any transfusion for last 48 hours. Continue to monitor hemoglobin but less frequent. Transfuse as needed. 05/11 Tube feeds were resumed yesterday after discussion with GI CT abdomen pelvis was done IMPRESSION: 1. Atelectasis and pneumonia of the v
[2021-05-12 12:13] LABS: Glucose Point of Care 162 mg/dl (65-105)
[2021-05-12 18:04] LABS: Glucose Point of Care 179 mg/dl (65-105)
[2021-05-12 23:29] LABS: Glucose Point of Care 162 mg/dl (65-105)
[2021-05-13] VITALS (30 sets, daily range): BP systolic 105–127; BP diastolic 40–52; PULSE 60–86; RESP 11–17; TEMP 36.5–37.2; O2SAT 96–99
[2021-05-13] MEDS: ALBUTEROL SULFATE NEB 2.5 MG/0.5 ML INH INHALATION ×4 (01:29→20:15)
[2021-05-13] MEDS: IPRATROPIUM BR 0.02% INH SOLN 0.5 MG/2.5 ML VIAL INHALATION ×4 (01:29→20:15)
[2021-05-13 04:54] LABS: Hemoglobin 8.1 g/dL (12.0-15.0); Mean Corpuscular HGB Conc 32.4 g/dl (32-36); Mean Corpuscular Hemoglobin 30.1 pg (26-34); Mean Corpuscular Volume 92.9 fl (80-100); Mean Platelet Volume 9.4 fl (7.4-10.4); Platelet Count Result 273 k/mm3 (150-375); Red Blood Count 2.69 M/mm3 (4.2-5.4); Red Cell Distribution Width 16.3 % (11.5-14.5)
[2021-05-13 05:05] LABS: Alanine Aminotransferase 20 U/L (4-35); Albumin Level 3.1 g/dL (3.5-5.1); Alkaline Phosphatase 90 U/L (38-126); Anion Gap 6 mmol/L (8-16); Aspartate Amino Transferase 40 U/L (14-36); Bilirubin,Total 0.2 mg/dL (0.2-1.3); Blood Urea Nitrogen 11 mg/dL (7-17); Calcium 8.5 mg/dL (8.4-10.2); Carbon Dioxide 23 mmol/L (22-30); Chloride 112 mmol/L (98-107); Estimated CRCL calculation 56 ml/min; Estimated Glomerular Filt Rate > 60; Glucose 164 mg/dL (65-110); Potassium 3.5 mmol/L (3.4-5.0); Sodium 141 mmol/L (137-145)
[2021-05-13 05:06] LABS: Carboxyhemoglobin 0.1 % THb (0-2.0); Fractional Inspired Oxygen 30 %; HCO3 ABG 22.2 mEq/l (22.0-26.0); Methemoglobin ABG 0.5 %THb (0-1.5); Oxygen Content ABG 12.5 %vol (16.0-22.0); Oxygen Saturation ABG 97.7 % (95.0-100.0); Oxyhemoglobin 95.5 % THb (90.0-100.0); PCO2 ABG 31.3 mmHg (35.0-45.0); PO2 ABG 95.1 mmHg (80.0-100.0); PO2 FiO2 Ratio Arterial Blood 3.17 %; Reduced Hemoglobin 3.9 %THb (0-5.0); Total Hemoglobin 9.2 g/dL (12.0-18.0); pH ABG 7.469 (7.350-7.450)
[2021-05-13 05:07] LABS: Device VENTILATOR; Modified Allen's Test Pass; Site Drawn RIGHT RADIAL
[2021-05-13 05:08] LABS: Arterial Blood Gas PEEP 5 cmH2O; Arterial Blood Gas Vent Mode ASV
[2021-05-13] MEDS: CENTRAL LINE FLUSH 10 ML IV PUSH ×4 (05:24→20:42)
[2021-05-13] MEDS: LORazepam INJ (*CRX) 2 MG/ML VIAL IV PUSH (06:10)
[2021-05-13] MEDS: levETIRAcetam ORAL SOL 500 MG/5 ML UDC FEED TUBE ×2 (08:12→20:42)
[2021-05-13] MEDS: MIDODRINE HCL 10 MG TABLET PO ×3 (08:13→17:42)
[2021-05-13] MEDS: PANTOPRAZOLE SODIUM IV 40 MG VIAL IV PUSH ×2 (08:13→20:42)
[2021-05-13] MEDS: MINERAL OIL/WHITE PETROLATUM OINTMENT 1 APPLIC EACH EYE ×2 (08:13→20:42)
--- NOTE | 2021-05-13 09:37 | WPDINTPN ---
Progress Note: A&P Assessment and Plan (1) Respiratory failure: Code(s): J96.90 - Respiratory failure, unspecified, unspecified whether with hypoxia or hypercapnia Status: Acute Assessment and Plan: Acute Respiratory failure secondary to cardiac arrest and suspected aspiration pneumonia Continue full mechanical ventilation support to prevent hypoxemia/hypercarbia and end organ damage. Vent settings reviewed and ABGs been. Continue peep of 5 and 30% FiO2. Currently in ASV mode. Decrease ASV to 80% PCXR reviewed - Stable diffuse lung disease, consistent with pneumonia. Bronchodilators CT done 05/10 confirmed presence of pneumonia Patient was intubated on 04/30. at this time patient is not a candidate for extubation as she will not be able to protect her airway due to her mental status. If situation does not changes will proceed with tracheostomy next week. Patient's POA is agreeable to trach if needed. (2) Aspiration pneumonia: Qualifiers: Aspiration pneumonia type: unspecified Laterality: right Lung location: lower lobe of lung Qualified Code(s): J69.0 - Pneumonitis due to inhalation of food and vomit Code(s): J69.0 - Pneumonitis due to inhalation of food and vomit Status: Acute Assessment and Plan: Sputum cultures grew MSSA and pansensitive Pseudomonas Blood culture grew coag-negative staph which was likely contaminant and Corynebacterium from the other bottle which is also likely contaminant. But both should be covered with Zosyn patient is on empiric Zosyn which I will discontinue after a 14 day course COVID PCR is negative (3) Encephalopathy acute: Code(s): G93.40 - Encephalopathy, unspecified Status: Acute Assessment and Plan: Given patient's down time during the cardiac arrest suspect patient has anoxic brain injury. Patient had poor neurological function to start with at baseline. On last admission patient was nonverbal and did not follow any commands but was awake post extubation. 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 - unable to perform an MRI on a vented patient in [facility]. Patient had a unwitnessed cardiac arrest with non shockable rhythm with unknown downtime which is of likely respiratory etiology. She completed a moderate TTM protocol -neurology is following -CT head on admission: No change of large calcified brain mass since 04/15/2021; no acute intracranial findings since 04/15/2021 Fluid levels in some of the paranasal sinuses since 04/15/2021 -05/03/2021: EEG showed no evidence of cortical activity - 05/07 EEG - abnormal record due to the presence of very low-voltage activity over the left hemisphere and due to the presence of intermittent delta activity over the right hemisphere with decrement in the electrical activity. These findings are suggestive of underlying focal structural lesion of the right hemisphere there is no evidence of abnormal seizure-like discharges clinical correlation recommended -Keppra resumed 05/08 -patient is completely off sedation for more than 1 week -no meaningful improvement in neuro status since admit (4) GI bleed: Code(s): K92.2 - Gastrointestinal hemorrhage, unspecified Status: Acute Assessment and Plan: New onset significant GI bleed leading to hypotension Patient was not on any anticoagulation or antiplatelet agents Tube feeds were hold Patient's hemoglobin was monitor and patient has received 5 units of PRBC 05/09 Patient's coags are abnormal but not enough explain GI bleeding Patient was seen by GI will recommend conservative management at this time She has not required any transfusion for last 3 days. Continue to monitor hemoglobin but less frequent. Transfuse as needed. 05/11 Tube feeds were resumed yesterday after discussion with GI CT abdomen pelvis was done IMPRESSION: 1. Atelectasis and pneumo
[2021-05-13 12:15] LABS: Glucose Point of Care 122 mg/dl (65-105)
[2021-05-13] MEDS: SODIUM CHLORIDE 0.9% IV 500 ML 999 ML IV CONT (13:18)
[2021-05-13 17:51] LABS: Glucose Point of Care 147 mg/dl (65-105)
--- NOTE | 2021-05-13 21:21 | PC.NURSE ---
Patient had small episode of emesis. Tube feed placed on hold for now. Restart in 4 hours. Patient does not have any residual upon checking.
[2021-05-13 23:47] LABS: Glucose Point of Care 111 mg/dl (65-105)
[2021-05-14] VITALS (25 sets, daily range): BP systolic 101–127; BP diastolic 45–56; PULSE 54–84; RESP 11–15; TEMP 36.6–36.9; O2SAT 97–100
[2021-05-14] MEDS: ALBUTEROL SULFATE NEB 2.5 MG/0.5 ML INH INHALATION ×4 (02:49→20:03)
[2021-05-14] MEDS: IPRATROPIUM BR 0.02% INH SOLN 0.5 MG/2.5 ML VIAL INHALATION ×4 (02:49→20:03)
[2021-05-14] MEDS: CENTRAL LINE FLUSH 10 ML IV PUSH ×4 (05:08→20:51)
[2021-05-14 05:19] LABS: Hematocrit 25.7 % (37.0-47.0); Hemoglobin 8.2 g/dL (12.0-15.0); Mean Corpuscular HGB Conc 31.9 g/dl (32-36); Mean Corpuscular Hemoglobin 30.4 pg (26-34); Mean Corpuscular Volume 95.2 fl (80-100); Mean Platelet Volume 8.6 fl (7.4-10.4); Platelet Count Result 314 k/mm3 (150-375); Red Cell Distribution Width 16.5 % (11.5-14.5); White Blood Count 13.5 K/mm3 (4.5-10.0)
[2021-05-14 05:35] LABS: Alveolar/Arterial O2 Gradient 76.3 mmHg; Base Excess ABG -2.7 mEq/l (+/-2.0); Carboxyhemoglobin 0.2 % THb (0-2.0); Fractional Inspired Oxygen 30 %; HCO3 ABG 20.5 mEq/l (22.0-26.0); Methemoglobin ABG 0.6 %THb (0-1.5); Oxygen Content ABG 13.1 %vol (16.0-22.0); Oxyhemoglobin 95.9 % THb (90.0-100.0); PCO2 ABG 29.9 mmHg (35.0-45.0); PO2 ABG 102.5 mmHg (80.0-100.0); PO2 FiO2 Ratio Arterial Blood 3.42 %; Reduced Hemoglobin 3.3 %THb (0-5.0); Total Hemoglobin 9.6 g/dL (12.0-18.0); pH ABG 7.455 (7.350-7.450)
[2021-05-14 05:36] LABS: Device VENTILATOR; Modified Allen's Test Pass; Site Drawn RIGHT RADIAL
[2021-05-14 05:37] LABS: Arterial Blood Gas PEEP 5 cmH2O; Arterial Blood Gas Vent Mode ASV
[2021-05-14 05:41] LABS: Alanine Aminotransferase 23 U/L (4-35); Albumin Level 3.1 g/dL (3.5-5.1); Alkaline Phosphatase 99 U/L (38-126); Anion Gap 7 mmol/L (8-16); Aspartate Amino Transferase 74 U/L (14-36); Bilirubin,Total 0.2 mg/dL (0.2-1.3); Blood Urea Nitrogen 11 mg/dL (7-17); Calcium 8.6 mg/dL (8.4-10.2); Carbon Dioxide 25 mmol/L (22-30); Chloride 111 mmol/L (98-107); Estimated CRCL calculation 50 ml/min; Estimated Glomerular Filt Rate > 60; Glucose 141 mg/dL (65-110); Magnesium 2.1 mg/dL (1.6-2.3); Potassium 3.5 mmol/L (3.4-5.0); Sodium 143 mmol/L (137-145)
[2021-05-14] MEDS: PANTOPRAZOLE SODIUM IV 40 MG VIAL IV PUSH ×2 (08:03→20:50)
[2021-05-14] MEDS: MIDODRINE HCL 10 MG TABLET PO ×3 (08:03→16:38)
[2021-05-14] MEDS: levETIRAcetam ORAL SOL 500 MG/5 ML UDC FEED TUBE ×2 (08:03→20:50)
[2021-05-14] MEDS: MINERAL OIL/WHITE PETROLATUM OINTMENT 1 APPLIC EACH EYE ×2 (08:03→20:51)
--- NOTE | 2021-05-14 09:22 | PC.NURSE ---
0915 Patient evaluated for picc line placement. Today, arms do not have adequate size veins for picc line placement. Left mid thigh has a femoral vein that is adequate size and about 4 cm under the surface of the skin. Dr. Owusu made aware of the findings and has put the picc line insertion on hold.
--- NOTE | 2021-05-14 09:38 | WPDINTPN ---
Progress Note: A&P Assessment and Plan (1) Respiratory failure: Code(s): J96.90 - Respiratory failure, unspecified, unspecified whether with hypoxia or hypercapnia Status: Acute Assessment and Plan: Acute Respiratory failure secondary to cardiac arrest and suspected aspiration pneumonia Continue full mechanical ventilation support to prevent hypoxemia/hypercarbia and end organ damage. Vent settings reviewed and ABGs been. Continue peep of 5 and 30% FiO2. Currently in ASV mode. Decrease ASV to 80% PCXR reviewed - Stable diffuse lung disease, consistent with pneumonia. Bronchodilators CT done 05/10 confirmed presence of pneumonia Patient was intubated on 04/30. at this time patient is not a candidate for extubation as she will not be able to protect her airway due to her mental status. If situation does not changes will proceed with tracheostomy this week. Patient's POA is agreeable to trach if needed. (2) Aspiration pneumonia: Qualifiers: Aspiration pneumonia type: unspecified Laterality: right Lung location: lower lobe of lung Qualified Code(s): J69.0 - Pneumonitis due to inhalation of food and vomit Code(s): J69.0 - Pneumonitis due to inhalation of food and vomit Status: Acute Assessment and Plan: Sputum cultures grew MSSA and pansensitive Pseudomonas Blood culture grew coag-negative staph which was likely contaminant and Corynebacterium from the other bottle which is also likely contaminant. But both should be covered with Zosyn patient is on empiric Zosyn which I will discontinue after a 14 day course COVID PCR is negative (3) Encephalopathy acute: Code(s): G93.40 - Encephalopathy, unspecified Status: Acute Assessment and Plan: Given patient's down time during the cardiac arrest suspect patient has anoxic brain injury. Patient had poor neurological function to start with at baseline. On last admission patient was nonverbal and did not follow any commands but was awake post extubation. 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 - unable to perform an MRI on a vented patient in [facility]. Patient had a unwitnessed cardiac arrest with non shockable rhythm with unknown downtime which is of likely respiratory etiology. She completed a moderate TTM protocol -neurology is following -CT head on admission: No change of large calcified brain mass since 04/15/2021; no acute intracranial findings since 04/15/2021 Fluid levels in some of the paranasal sinuses since 04/15/2021 -05/03/2021: EEG showed no evidence of cortical activity -05/07/2021: EEG - abnormal record due to the presence of very low-voltage activity over the left hemisphere and due to the presence of intermittent delta activity over the right hemisphere with decrement in the electrical activity. These findings are suggestive of underlying focal structural lesion of the right hemisphere there is no evidence of abnormal seizure-like discharges clinical correlation recommended -Keppra resumed 05/08 -patient is completely off sedation for more than 1 week -no meaningful improvement in neuro status since admit (4) GI bleed: Code(s): K92.2 - Gastrointestinal hemorrhage, unspecified Status: Acute Assessment and Plan: New onset significant GI bleed leading to hypotension Patient was not on any anticoagulation or antiplatelet agents Patient's hemoglobin was monitor and patient has received 5 units of PRBC 05/09 Patient's coags are abnormal but not enough explain GI bleeding Patient was seen by GI will recommend conservative management at this time She has not required any transfusion since 05/09. . Continue to monitor hemoglobin but less frequent. Transfuse as needed. 05/11 Tube feeds were resumed yesterday after discussion with GI -hemoglobin stable, continue to monitor CT abdomen pelvis was done IMPRESSION:
[2021-05-14 11:53] LABS: Glucose Point of Care 133 mg/dl (65-105)
[2021-05-14] MEDS: ONDANSETRON INJ 4 MG/2 ML VIAL IV PUSH ×2 (11:56→20:49)
--- NOTE | 2021-05-14 12:13 | PCFNICU ---
ICU Rounding Note: Pt current nutrition is Glucerna 1.2 at 40 ml/hr. Last recorded weight is 63.4 kg, down from 70.6 kg on admit. Bowel Motility: FMS Labs Reviewed: Glu 141, Alb 3.1,Hct 25.7,Hgb 8.2 Meds Noted:Lantus, Protonix, Keppra, Atrovent,Levophed,Zosyn. Skin:stage II pressure ulcer-saccum, left heel. Additional Notes: Patient remains on mechanical vent and tube feedings of Glucerna 1.2 at 40 ml/hr over 22 hours. Protein Modulars of Robbie BID flushed via tube. Recommend tube feeding goal at 70 ml/hr providing 1848 kcals/92 gms protein/1240 ml water. Free water flush 30 ml q 4 hours. Following daily in ICU rounds. Will monitor every Friday and Friday.
[2021-05-14] MEDS: ALTEPLASE 2 MG VIAL (CATHFLO) IV PUSH (12:39)
--- NOTE | 2021-05-14 13:43 | WPDINTPN ---
Progress Note: A&P Assessment and Plan (1) Septic shock: Code(s): A41.9 - Sepsis, unspecified organism; R65.21 - Severe sepsis with septic shock Status: Acute Assessment and Plan: Elevated lactic acid, leukocytosis, pneumonia Patient was adequately fluid-resuscitated upon admission OFF LEVOPHED WBC count trending down Continue Zosyn vancomycin, and levofloxacin -04/15/2021: Blood cultures negative x2 so far -04/15/2019 to urine cultures growing Pseudomonas -04/15/2021 sputum cultures Pseudomonas (2) Respiratory failure: Code(s): J96.90 - Respiratory failure, unspecified, unspecified whether with hypoxia or hypercapnia Status: Acute Assessment and Plan: Pt presented from halfway via EMS with AMS and hypoxia. Pt was intubated in the ED on 04/15/2021 Likely due to bilateral pneumonia as seen on CT chest -chest x-ray this morning shows There is moderate amount of left-sided, small to moderate amount of right-sided ill-defined pneumonia and/or edema. There are no sizable pleural effusions. There is no pneumothorax suspected. Currently on CMV mode, PEEP of 8 and30% FIO2, Will wean fentanyl and Versed to off and continue Precedex infusion When pt wakes up will place on SBT continue bronchodilators -04/16/2021, venous Dopplers of lower extremities were negative for DVT - Will give bumex 1 mg Iv x1 AGAIN (3) Pneumonia: Code(s): J18.9 - Pneumonia, unspecified organism Status: Acute Assessment and Plan: 04/15/2021 Sputum culture : Pseudomonas and Staph aureus pneumonia, continue Zosyn, vancomycin and Levaquin (4) Seizure: Code(s): R56.9 - Unspecified convulsions Status: Acute Assessment and Plan: H/o Sz continue keppra and toprimate (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 Will decrease Lantus and monitor (6) Encephalopathy: Code(s): G93.40 - Encephalopathy, unspecified Status: Acute Assessment and Plan: AMS on admission, could be related sepsis, acidosis, hypoxia, pna, UTI -CT brain reviewed, no new intracranial mass lesions were intracranial hemorrhage interval new mass effect, no subdural or epidural hematoma (7) UTI (urinary tract infection): Code(s): N39.0 - Urinary tract infection, site not specified Status: Acute Assessment and Plan: 04/15/2021 urine cultures growing Pseudomonas, continue ABX as above (8) Brain tumor: Code(s): D49.6 - Neoplasm of unspecified behavior of brain Status: Acute Assessment and Plan: CT brain 04/15/2021: Status post right frontal craniotomy with large right frontal lobe resection. Left vertebral artery and prominent bilateral carotid siphon internal carotid artery calcifications. Again noted is a large infiltrative partially calcified mass in the right frontal parietal area, with right insular and basal ganglia and thalamic involvement in addition to left medial frontal lobe extension. 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 This appears relatively stable since 03/07/2021. There is diminished attenuation of the cerebral white matter particularly in the frontal areas, likely due to postradiation change. No new intracranial mass lesion or intracranial hemorrhage, or interval new mass effect is evident. No subdural or epidural hematoma. Moderate central and cortical cerebral atrophy IMPRESSION: No significant change since 03/07/2021 Additional Plan DVT prophylaxis: Lovenox Nutrition: Continue tube feeds Stress ulcer prophylaxis: Protonix 04/18/2021: Discussed with 3 family members on the conference call, updated them with patient's condition plan of care. I answered all the questions. I also disc
[2021-05-14 16:37] LABS: Glucose Point of Care 138 mg/dl (65-105)
[2021-05-15] VITALS (25 sets, daily range): BP systolic 96–124; BP diastolic 45–65; PULSE 55–78; RESP 10–16; TEMP 36.4–37.1; O2SAT 9–99
[2021-05-15 00:36] LABS: Glucose Point of Care 116 mg/dl (65-105)
[2021-05-15] MEDS: IPRATROPIUM BR 0.02% INH SOLN 0.5 MG/2.5 ML VIAL INHALATION ×4 (02:31→20:19)
[2021-05-15] MEDS: ALBUTEROL SULFATE NEB 2.5 MG/0.5 ML INH INHALATION ×4 (02:31→20:18)
[2021-05-15 05:04] LABS: Alveolar/Arterial O2 Gradient 70.7 mmHg; Base Excess ABG 0.5 mEq/l (+/-2.0); Carboxyhemoglobin 0.2 % THb (0-2.0); Device VENTILATOR; Fractional Inspired Oxygen 30 %; HCO3 ABG 24.5 mEq/l (22.0-26.0); Methemoglobin ABG 0.4 %THb (0-1.5); Modified Allen's Test Pass; Oxygen Content ABG 14.5 %vol (16.0-22.0); Oxygen Saturation ABG 97.7 % (95.0-100.0); PCO2 ABG 37.2 mmHg (35.0-45.0); PO2 ABG 99.5 mmHg (80.0-100.0); PO2 FiO2 Ratio Arterial Blood 3.32 %; Reduced Hemoglobin 3.4 %THb (0-5.0); Site Drawn RIGHT RADIAL; Total Hemoglobin 10.6 g/dL (12.0-18.0); pH ABG 7.437 (7.350-7.450)
[2021-05-15 05:05] LABS: Arterial Blood Gas PEEP 5 cmH2O; Arterial Blood Gas Vent Mode ASV
[2021-05-15] MEDS: CENTRAL LINE FLUSH 10 ML IV PUSH ×3 (05:18→20:39)
[2021-05-15 05:26] LABS: Hematocrit 24.9 % (37.0-47.0); Hemoglobin 8.1 g/dL (12.0-15.0); Mean Corpuscular HGB Conc 32.5 g/dl (32-36); Mean Corpuscular Hemoglobin 30.3 pg (26-34); Mean Corpuscular Volume 93.3 fl (80-100); Mean Platelet Volume 8.8 fl (7.4-10.4); Platelet Count Result 401 k/mm3 (150-375); Red Blood Count 2.67 M/mm3 (4.2-5.4); Red Cell Distribution Width 16.2 % (11.5-14.5); White Blood Count 13.1 K/mm3 (4.5-10.0)
[2021-05-15 05:39] LABS: Alanine Aminotransferase 26 U/L (4-35); Albumin Level 2.9 g/dL (3.5-5.1); Alkaline Phosphatase 100 U/L (38-126); Anion Gap 5 mmol/L (8-16); Aspartate Amino Transferase 49 U/L (14-36); Bilirubin,Total 0.2 mg/dL (0.2-1.3); Blood Urea Nitrogen 18 mg/dL (7-17); Calcium 8.8 mg/dL (8.4-10.2); Carbon Dioxide 28 mmol/L (22-30); Chloride 111 mmol/L (98-107); Estimated CRCL calculation 56 ml/min; Estimated Glomerular Filt Rate > 60; Glucose 128 mg/dL (65-110); Magnesium 2.1 mg/dL (1.6-2.3); Potassium 3.6 mmol/L (3.4-5.0); Sodium 144 mmol/L (137-145)
[2021-05-15] MEDS: ONDANSETRON INJ 4 MG/2 ML VIAL IV PUSH (08:10)
[2021-05-15] MEDS: PANTOPRAZOLE SODIUM IV 40 MG VIAL IV PUSH ×2 (08:34→20:37)
[2021-05-15] MEDS: MIDODRINE HCL 10 MG TABLET PO ×3 (08:34→17:29)
[2021-05-15] MEDS: MINERAL OIL/WHITE PETROLATUM OINTMENT 1 APPLIC EACH EYE ×2 (08:34→20:38)
[2021-05-15] MEDS: levETIRAcetam ORAL SOL 500 MG/5 ML UDC FEED TUBE ×2 (08:34→20:38)
[2021-05-15 11:30] LABS: Glucose Point of Care 121 mg/dl (65-105)
--- NOTE | 2021-05-15 12:47 | WPDINTPN ---
Progress Note: A&P Assessment and Plan (1) Respiratory failure: Code(s): J96.90 - Respiratory failure, unspecified, unspecified whether with hypoxia or hypercapnia Status: Acute Assessment and Plan: Acute Respiratory failure secondary to cardiac arrest and suspected aspiration pneumonia. Intubated 04/30/21 Continue full mechanical ventilation support to prevent hypoxemia/hypercarbia and end organ damage. Vent settings reviewed and ABGs been. Continue peep of 5 and 30% FiO2. Currently in ASV mode. Decrease ASV to 80% PCXR reviewed - Stable diffuse lung disease, consistent with pneumonia. Bronchodilators CT done 05/10 confirmed presence of pneumonia Patient was intubated on 04/30. at this time patient is not a candidate for extubation as she will not be able to protect her airway due to her mental status. If situation does not changes will proceed with tracheostomy this week. Patient's POA is agreeable to trach if needed. (2) Pneumonia: Code(s): J18.9 - Pneumonia, unspecified organism Status: Acute Assessment and Plan: Sputum cultures grew MSSA and pansensitive Pseudomonas Blood culture grew coag-negative staph which was likely contaminant and Corynebacterium from the other bottle which is also likely contaminant. But both should be covered with Zosyn patient is on empiric Zosyn which I will discontinue after a 14 day course COVID PCR is negative (3) Encephalopathy: Code(s): G93.40 - Encephalopathy, unspecified Status: Acute Assessment and Plan: Given patient's down time during the cardiac arrest suspect patient has anoxic brain injury. Patient had poor neurological function to start with at baseline. On last admission patient was nonverbal and did not follow any commands but was awake post extubation. 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 - unable to perform an MRI on a vented patient in [facility]. Patient had a unwitnessed cardiac arrest with non shockable rhythm with unknown downtime which is of likely respiratory etiology. She completed a moderate TTM protocol -neurology is following -CT head on admission: No change of large calcified brain mass since 04/15/2021; no acute intracranial findings since 04/15/2021 Fluid levels in some of the paranasal sinuses since 04/15/2021 -05/03/2021: EEG showed no evidence of cortical activity -05/07/2021: EEG - abnormal record due to the presence of very low-voltage activity over the left hemisphere and due to the presence of intermittent delta activity over the right hemisphere with decrement in the electrical activity. These findings are suggestive of underlying focal structural lesion of the right hemisphere there is no evidence of abnormal seizure-like discharges clinical correlation recommended -Keppra resumed 05/08 -patient is completely off sedation for more than 1 week -no meaningful improvement in neuro status since admit (4) Insulin dependent type 2 diabetes mellitus: Code(s): E11.9 - Type 2 diabetes mellitus without complications; Z79.4 - long-term (current) use of insulin Status: Acute Assessment and Plan: continue accucheks and slidinig scale resume Lantus at lower dose now as patient is back on tube feeds -recent hemoglobin A1c was 6.9 on 03/07/2021 (5) GI bleed: Code(s): K92.2 - Gastrointestinal hemorrhage, unspecified Status: Acute Assessment and Plan: New onset significant GI bleed leading to hypotension Patient was not on any anticoagulation or antiplatelet agents Patient's hemoglobin was monitor and patient has received 5 units of PRBC 05/09 Patient's coags are abnormal but not enough explain GI bleeding Patient was seen by GI will recommend conservative management at this time She has not required any transfusion since 05/09. . Continue to monitor hemoglobin but less frequent. Transfuse as need
--- NOTE | 2021-05-15 14:34 | PCNFU ---
Nutrition Follow-Up Complete: Inadequate Oral Intake as related to intubation as evidenced by NPO. Goal: Meet estimated nutritional needs We will continue current goal. Pt current nutrition is Glucerna 1.2 at 40 ml/hr over 22 hours. Last recorded weight is 68.9 kg-stable Bowel Motility:+BM reported 05/15 Labs Reviewed:Glu 128, Alb 2.9, Hct 24.9, Hgb 8.1 Meds Noted:Zofran,Protonix, Keppra, Atrovent,Levophed,Zosyn. Skin: stage II PU-left heel, saccum Additional Notes: Patient remains on mechanical vent and tube feedings of Glucerna 1.2. Tolerating tube feedings at 40 ml/hr providing 1056 kcals/53 gms protein/708 ml water. Meeting 54% of caloric needs and 62% of protein needs. Protein Modulars given of Robbie BID for wound healing. Due to wounds recommend increasing tube feedings goal would be 70 ml/hr over 22 hours. This will provide 1848 kcals/92 gms protein/1240 ml water. Will monitor daily in ICU rounds and reassessing every Friday and Friday.
[2021-05-15 17:57] LABS: Glucose Point of Care 127 mg/dl (65-105)
[2021-05-16] VITALS (29 sets, daily range): BP systolic 101–123; BP diastolic 49–59; PULSE 67–90; RESP 9–24; TEMP 36.5–37.3; O2SAT 94–100
[2021-05-16 00:05] LABS: Glucose Point of Care 126 mg/dl (65-105)
[2021-05-16] MEDS: IPRATROPIUM BR 0.02% INH SOLN 0.5 MG/2.5 ML VIAL INHALATION ×4 (02:07→19:18)
[2021-05-16] MEDS: ALBUTEROL SULFATE NEB 2.5 MG/0.5 ML INH INHALATION ×4 (02:07→19:19)
[2021-05-16] MEDS: CENTRAL LINE FLUSH 10 ML IV PUSH ×3 (04:03→20:30)
[2021-05-16 04:55] LABS: Alveolar/Arterial O2 Gradient 143.5 mmHg; Base Excess ABG 3.2 mEq/l (+/-2.0); Carboxyhemoglobin 0.3 % THb (0-2.0); Fractional Inspired Oxygen 30 %; HCO3 ABG 27.3 mEq/l (22.0-26.0); Methemoglobin ABG 0.4 %THb (0-1.5); Oxygen Content ABG 12.3 %vol (16.0-22.0); Oxygen Saturation ABG 97.1 % (95.0-100.0); PCO2 ABG 39.7 mmHg (35.0-45.0); PO2 ABG 87.6 mmHg (80.0-100.0); PO2 FiO2 Ratio Arterial Blood 2.92 %; Reduced Hemoglobin 4.3 %THb (0-5.0); Total Hemoglobin 9.1 g/dL (12.0-18.0); pH ABG 7.455 (7.350-7.450)
[2021-05-16 04:56] LABS: Device VENTILATOR; Modified Allen's Test Pass; Site Drawn RIGHT RADIAL
[2021-05-16 04:57] LABS: Arterial Blood Gas PEEP 5 cmH2O; Arterial Blood Gas Vent Mode ASV
[2021-05-16 05:12] LABS: Hematocrit 25.6 % (37.0-47.0); Hemoglobin 8.2 g/dL (12.0-15.0); Mean Corpuscular Hemoglobin 30.7 pg (26-34); Mean Corpuscular Volume 95.9 fl (80-100); Mean Platelet Volume 8.8 fl (7.4-10.4); Platelet Count Result 460 k/mm3 (150-375); Red Blood Count 2.67 M/mm3 (4.2-5.4); Red Cell Distribution Width 15.8 % (11.5-14.5); White Blood Count 13.1 K/mm3 (4.5-10.0)
[2021-05-16 05:30] LABS: Alanine Aminotransferase 31 U/L (4-35); Albumin Level 3.2 g/dL (3.5-5.1); Alkaline Phosphatase 112 U/L (38-126); Anion Gap 3 mmol/L (8-16); Aspartate Amino Transferase 55 U/L (14-36); Bilirubin,Total 0.1 mg/dL (0.2-1.3); Blood Urea Nitrogen 31 mg/dL (7-17); Calcium 8.9 mg/dL (8.4-10.2); Carbon Dioxide 32 mmol/L (22-30); Chloride 109 mmol/L (98-107); Estimated CRCL calculation 56 ml/min; Estimated Glomerular Filt Rate > 60; Glucose 151 mg/dL (65-110); Magnesium 2.1 mg/dL (1.6-2.3); Potassium 3.7 mmol/L (3.4-5.0); Sodium 144 mmol/L (137-145)
[2021-05-16] MEDS: MINERAL OIL/WHITE PETROLATUM OINTMENT 1 APPLIC EACH EYE ×2 (08:23→20:31)
[2021-05-16] MEDS: MIDODRINE HCL 10 MG TABLET PO ×3 (08:23→16:41)
[2021-05-16] MEDS: levETIRAcetam ORAL SOL 500 MG/5 ML UDC FEED TUBE ×2 (08:23→20:29)
[2021-05-16] MEDS: PANTOPRAZOLE SODIUM IV 40 MG VIAL IV PUSH ×2 (08:23→20:30)
--- NOTE | 2021-05-16 11:19 | WPDINTPN ---
Progress Note: A&P Assessment and Plan (1) Respiratory failure: Code(s): J96.90 - Respiratory failure, unspecified, unspecified whether with hypoxia or hypercapnia Status: Acute Assessment and Plan: Acute Respiratory failure secondary to cardiac arrest and suspected aspiration pneumonia. Intubated 04/30/21 Continue full mechanical ventilation support to prevent hypoxemia/hypercarbia and end organ damage. Vent settings reviewed and ABGs been. Continue peep of 5 and 30% FiO2. Currently in ASV mode. Decrease ASV to 80% - patient placed on pressure support ventilation, patient became tachypneic and tachycardic and switch back to ASV mode ventilation PCXR reviewed - Stable diffuse lung disease, consistent with pneumonia. Bronchodilators CT done 05/10 confirmed presence of pneumonia Patient was intubated on 04/30. at this time patient is not a candidate for extubation as she will not be able to protect her airway due to her mental status. -have discussed with patient's for on 05/15/2021 regarding tracheostomy and withdrawal of support, family spoke care coordination on 05/16/2021 regarding possibility of tracheostomy, he was supposed to get back to [facility] (2) Pneumonia: Code(s): J18.9 - Pneumonia, unspecified organism Status: Acute Assessment and Plan: Sputum cultures grew MSSA and pansensitive Pseudomonas Blood culture grew coag-negative staph which was likely contaminant and Corynebacterium from the other bottle which is also likely contaminant. But both should be covered with Zosyn patient is on empiric Zosyn which I will discontinue after a 14 day course COVID PCR is negative (3) Encephalopathy: Code(s): G93.40 - Encephalopathy, unspecified Status: Acute Assessment and Plan: Given patient's down time during the cardiac arrest suspect patient has anoxic brain injury. Patient had poor neurological function to start with at baseline. On last admission patient was nonverbal and did not follow any commands but was awake post extubation. 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 - unable to perform an MRI on a vented patient in [facility]. Patient had a unwitnessed cardiac arrest with non shockable rhythm with unknown downtime which is of likely respiratory etiology. She completed a moderate TTM protocol -neurology is following -CT head on admission: No change of large calcified brain mass since 04/15/2021; no acute intracranial findings since 04/15/2021 Fluid levels in some of the paranasal sinuses since 04/15/2021 -05/03/2021: EEG showed no evidence of cortical activity -05/07/2021: EEG - abnormal record due to the presence of very low-voltage activity over the left hemisphere and due to the presence of intermittent delta activity over the right hemisphere with decrement in the electrical activity. These findings are suggestive of underlying focal structural lesion of the right hemisphere there is no evidence of abnormal seizure-like discharges clinical correlation recommended -Keppra resumed 05/08 -patient is completely off sedation for more than 1 week -no meaningful improvement in neuro status since admit (4) Insulin dependent type 2 diabetes mellitus: Code(s): E11.9 - Type 2 diabetes mellitus without complications; Z79.4 - FDC (current) use of insulin Status: Acute Assessment and Plan: continue accucheks and slidinig scale resume Lantus at lower dose now as patient is back on tube feeds -recent hemoglobin A1c was 6.9 on 03/07/2021 (5) GI bleed: Code(s): K92.2 - Gastrointestinal hemorrhage, unspecified Status: Acute Assessment and Plan: New onset significant GI bleed leading to hypotension Patient was not on any anticoagulation or antiplatelet agents Patient's hemoglobin was monitor and patient has received 5 units of PRBC 05/09 Patient's co
[2021-05-16 12:21] LABS: Glucose Point of Care 131 mg/dl (65-105)
--- NOTE | 2021-05-16 13:05 | PCFNICU ---
ICU Rounding Note: Pt current nutrition is Glucerna 1.2 at 70 ml/hr over 22 hours. Last recorded weight is 72.5 kg-stable. Bowel Motility:+BM reported 05/15 Labs Reviewed:Glu 151, BUN 31, Hct 25.6,Hgb 8.2, Alb 3.2 Meds Noted:Zofran,Protonix, Keppra, Atrovent,Midodrine,Zosyn. Skin:Stage II PU-left heel and saccum Additional Notes: Patient remains on mechanical vent and tube feedings of Glucerna 1.2 at goal rate of 70 ml/hr and tolerating. Protein Modulars of Robbie BID given via tube for wound healing. Free water flush 30 ml q 4 hours. Agree with diet orders. MD Discussions of possible Trach with the family. Following daily in ICU rounds. Will monitor every Friday and Friday.
[2021-05-16 17:07] LABS: Glucose Point of Care 159 mg/dl (65-105)
[2021-05-17] VITALS (28 sets, daily range): BP systolic 104–132; BP diastolic 48–55; PULSE 71–87; RESP 9–23; TEMP 36.9–37.4; O2SAT 93–100
[2021-05-17 00:32] LABS: Glucose Point of Care 148 mg/dl (65-105)
[2021-05-17] MEDS: IPRATROPIUM BR 0.02% INH SOLN 0.5 MG/2.5 ML VIAL INHALATION ×4 (01:17→19:26)
[2021-05-17] MEDS: ALBUTEROL SULFATE NEB 2.5 MG/0.5 ML INH INHALATION ×4 (01:17→19:26)
[2021-05-17 05:15] LABS: Hematocrit 26.6 % (37.0-47.0); Hemoglobin 8.4 g/dL (12.0-15.0); Mean Corpuscular HGB Conc 31.6 g/dl (32-36); Mean Corpuscular Hemoglobin 30.2 pg (26-34); Mean Corpuscular Volume 95.7 fl (80-100); Mean Platelet Volume 8.6 fl (7.4-10.4); Platelet Count Result 514 k/mm3 (150-375); Red Blood Count 2.78 M/mm3 (4.2-5.4); Red Cell Distribution Width 15.7 % (11.5-14.5); White Blood Count 13.4 K/mm3 (4.5-10.0)
[2021-05-17 05:24] LABS: Anion Gap 4 mmol/L (8-16); Blood Urea Nitrogen 40 mg/dL (7-17); Carbon Dioxide 33 mmol/L (22-30); Chloride 107 mmol/L (98-107); Estimated CRCL calculation 56 ml/min; Estimated Glomerular Filt Rate > 60; Glucose 160 mg/dL (65-110); Magnesium 2.1 mg/dL (1.6-2.3); Potassium 3.8 mmol/L (3.4-5.0); Sodium 144 mmol/L (137-145)
[2021-05-17] MEDS: CENTRAL LINE FLUSH 10 ML IV PUSH ×3 (05:33→20:10)
[2021-05-17] MEDS: PANTOPRAZOLE SODIUM IV 40 MG VIAL IV PUSH ×2 (08:15→20:10)
[2021-05-17] MEDS: levETIRAcetam ORAL SOL 500 MG/5 ML UDC FEED TUBE ×2 (08:15→20:10)
[2021-05-17] MEDS: MINERAL OIL/WHITE PETROLATUM OINTMENT 1 APPLIC EACH EYE ×2 (08:15→20:10)
[2021-05-17] MEDS: MIDODRINE HCL 10 MG TABLET PO ×3 (08:15→17:41)
--- NOTE | 2021-05-17 11:55 | PCFNICU ---
ICU Rounding Note: Pt current nutrition is Glucerna 1.2 at 70 ml/hr over 22 hours. Last recorded weight is 71.7 kg-stable Bowel Motility:+BM reported 05/17 Labs Reviewed:Glu 160, BUN 40, Hct 26.6, Hgb 8.4 Meds Noted: Zofran,Protonix, Keppra, Atrovent,Midodrine. Skin: Stage II PU-saccum/left heel Additional Notes: Patient remain on mechanical vent and tube feedings of Glucerna 1.2 at 70 ml/hr over 22 hours and tolerating. Protein Modular of Robbie BID flushed via tube. Free water flush 30 ml q 4 hours. Agree with diet orders. Following daily in ICU rounds and reassessing every Friday and Friday.
[2021-05-17 13:14] LABS: Glucose Point of Care 164 mg/dl (65-105)
--- NOTE | 2021-05-17 16:44 | WPDINTPN ---
Progress Note: A&P Assessment and Plan (1) Respiratory failure: Code(s): J96.90 - Respiratory failure, unspecified, unspecified whether with hypoxia or hypercapnia Status: Acute Assessment and Plan: Acute Respiratory failure secondary to cardiac arrest and suspected aspiration pneumonia. Intubated 04/30/21 Continue full mechanical ventilation support to prevent hypoxemia/hypercarbia and end organ damage. Vent settings reviewed and ABGs been. Continue peep of 5 and 30% FiO2. Currently in ASV mode. Decrease ASV to 80% - patient placed on pressure support ventilation, patient became tachypneic and tachycardic and switch back to ASV mode ventilation PCXR reviewed - Stable diffuse lung disease, consistent with pneumonia. Bronchodilators CT done 05/10 confirmed presence of pneumonia Patient was intubated on 04/30. at this time patient is not a candidate for extubation as she will not be able to protect her airway due to her mental status. -have discussed with patient's for on 05/15/2021 regarding tracheostomy and withdrawal of support, family spoke care coordination on 05/16/2021 regarding possibility of tracheostomy, he was supposed to get back to [facility] professional caregiver (2) Pneumonia: Code(s): J18.9 - Pneumonia, unspecified organism Status: Acute Assessment and Plan: Sputum cultures grew MSSA and pansensitive Pseudomonas Blood culture grew coag-negative staph which was likely contaminant and Corynebacterium from the other bottle which is also likely contaminant. But both should be covered with Zosyn patient is on empiric Zosyn which I will discontinue after a 14 day course COVID PCR is negative (3) Encephalopathy: Code(s): G93.40 - Encephalopathy, unspecified Status: Acute Assessment and Plan: Given patient's down time during the cardiac arrest suspect patient has anoxic brain injury. Patient had poor neurological function to start with at baseline. On last admission patient was nonverbal and did not follow any commands but was awake post extubation. 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 - unable to perform an MRI on a vented patient in [facility]. Patient had a unwitnessed cardiac arrest with non shockable rhythm with unknown downtime which is of likely respiratory etiology. She completed a moderate TTM protocol -neurology is following -CT head on admission: No change of large calcified brain mass since 04/15/2021; no acute intracranial findings since 04/15/2021 Fluid levels in some of the paranasal sinuses since 04/15/2021 -05/03/2021: EEG showed no evidence of cortical activity -05/07/2021: EEG - abnormal record due to the presence of very low-voltage activity over the left hemisphere and due to the presence of intermittent delta activity over the right hemisphere with decrement in the electrical activity. These findings are suggestive of underlying focal structural lesion of the right hemisphere there is no evidence of abnormal seizure-like discharges clinical correlation recommended -Keppra resumed 05/08 -patient is completely off sedation for more than 1 week -no meaningful improvement in neuro status since admit EEG # 3 was done on 05/16/2021. Neurology note available to read, with trying to get another neurologist to read the EEG (4) Insulin dependent type 2 diabetes mellitus: Code(s): E11.9 - Type 2 diabetes mellitus without complications; Z79.4 - technician terminal and repeater (current) use of insulin Status: Acute Assessment and Plan: continue accucheks and slidinig scale resume Lantus at lower dose now as patient is back on tube feeds -recent hemoglobin A1c was 6.9 on 03/07/2021 (5) GI bleed: Code(s): K92.2 - Gastrointestinal hemorrhage, unspecified Status: Acute Assessment and Plan: New onset significant GI bleed leading to hypotension Patient was not on any anticoa
[2021-05-17 17:41] LABS: Glucose Point of Care 174 mg/dl (65-105)
[2021-05-17 23:54] LABS: Glucose Point of Care 177 mg/dl (65-105)
[2021-05-18] VITALS (27 sets, daily range): BP systolic 106–120; BP diastolic 47–67; PULSE 84–109; RESP 10–21; TEMP 37.3–37.7; O2SAT 92–100
[2021-05-18] MEDS: ALBUTEROL SULFATE NEB 2.5 MG/0.5 ML INH INHALATION ×4 (01:42→20:55)
[2021-05-18] MEDS: IPRATROPIUM BR 0.02% INH SOLN 0.5 MG/2.5 ML VIAL INHALATION ×4 (01:42→20:55)
[2021-05-18 05:34] LABS: Glucose Point of Care 188 mg/dl (65-105)
[2021-05-18] MEDS: CENTRAL LINE FLUSH 10 ML IV PUSH ×3 (05:45→20:41)
[2021-05-18] MEDS: levETIRAcetam ORAL SOL 500 MG/5 ML UDC FEED TUBE ×2 (07:37→20:40)
[2021-05-18] MEDS: MIDODRINE HCL 10 MG TABLET PO ×3 (07:37→16:56)
[2021-05-18] MEDS: PANTOPRAZOLE SODIUM IV 40 MG VIAL IV PUSH ×2 (07:38→20:40)
[2021-05-18] MEDS: MINERAL OIL/WHITE PETROLATUM OINTMENT 1 APPLIC EACH EYE ×2 (07:38→20:40)
[2021-05-18 11:44] LABS: Glucose Point of Care 190 mg/dl (65-105)
--- NOTE | 2021-05-18 11:57 | PCNFU ---
Nutrition Follow-Up Complete: Inadequate Oral Intake as related to intubation as evidenced by NPO. Goal: Meet estimated nutritional needs Patient will continue current goal. Pt current nutrition is Glucerna 1.2 at 70 ml/hr over 22 hours. Last recorded weight is 69.2 kg-stable. Bowel Motility:+BM reported 05/17 Labs Reviewed:No labs reported today Meds Noted:Zofran,Protonix, Keppra, Atrovent,Midodrine. Skin:Stage II PU-left heel and saccum. Additional Notes: Patient remains on mechanical vent and tube feedings of Glucerna 1.2 at 70 ml/hr over 22 hours. Per nursing tube feedings are being tolerated. At goal rate tube feeding is providing 1584 kcals/99 gms protein/1071 ml water. Free water flush 30 ml q 4 hours. Protein Modular Robbie BID continues to provide an additional 90 kcals and 2.5 gms protein. Agree with diet orders. Will monitor in ICU rounds and reassessing every Friday and Friday.
--- NOTE | 2021-05-18 12:15 | WPDINTPN ---
Progress Note: A&P Assessment and Plan (1) Respiratory failure: Code(s): J96.90 - Respiratory failure, unspecified, unspecified whether with hypoxia or hypercapnia Status: Acute Assessment and Plan: Acute Respiratory failure secondary to cardiac arrest and suspected aspiration pneumonia. Intubated 04/30/21 Continue full mechanical ventilation support to prevent hypoxemia/hypercarbia and end organ damage. Vent settings reviewed and ABGs been. Continue peep of 5 and 30% FiO2. Currently in ASV mode. Decrease ASV to 80% - patient placed on pressure support ventilation, patient became tachypneic and tachycardic and switch back to ASV mode ventilation PCXR reviewed - Stable diffuse lung disease, consistent with pneumonia. Bronchodilators CT done 05/10 confirmed presence of pneumonia Patient was intubated on 04/30. at this time patient is not a candidate for extubation as she will not be able to protect her airway due to her mental status. -have discussed with patient's for on 05/15/2021 regarding tracheostomy and withdrawal of support, family spoke care coordination on 05/16/2021 regarding possibility of tracheostomy, he was supposed to get back to [facility] primary [facility] (2) Pneumonia: Code(s): J18.9 - Pneumonia, unspecified organism Status: Acute Assessment and Plan: Sputum cultures grew MSSA and pansensitive Pseudomonas Blood culture grew coag-negative staph which was likely contaminant and Corynebacterium from the other bottle which is also likely contaminant. But both should be covered with Zosyn patient is on empiric Zosyn which I will discontinue after a 14 day course COVID PCR is negative (3) Encephalopathy: Code(s): G93.40 - Encephalopathy, unspecified Status: Acute Assessment and Plan: Given patient's down time during the cardiac arrest suspect patient has anoxic brain injury. Patient had poor neurological function to start with at baseline. On last admission patient was nonverbal and did not follow any commands but was awake post extubation. 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 - unable to perform an MRI on a vented patient in [facility]. Patient had a unwitnessed cardiac arrest with non shockable rhythm with unknown downtime which is of likely respiratory etiology. She completed a moderate TTM protocol -neurology is following -CT head on admission: No change of large calcified brain mass since 04/15/2021; no acute intracranial findings since 04/15/2021 Fluid levels in some of the paranasal sinuses since 04/15/2021 -05/03/2021: EEG showed no evidence of cortical activity -05/07/2021: EEG - abnormal record due to the presence of very low-voltage activity over the left hemisphere and due to the presence of intermittent delta activity over the right hemisphere with decrement in the electrical activity. These findings are suggestive of underlying focal structural lesion of the right hemisphere there is no evidence of abnormal seizure-like discharges clinical correlation recommended -Keppra resumed 05/08 -patient is completely off sedation for more than 1 week -no meaningful improvement in neuro status since admit EEG # 3 was done on 05/16/2021. Neurology note available to read, with trying to get another neurologist to read the EEG (4) Insulin dependent type 2 diabetes mellitus: Code(s): E11.9 - Type 2 diabetes mellitus without complications; Z79.4 - slab puller (current) use of insulin Status: Acute Assessment and Plan: continue accucheks and slidinig scale resume Lantus at lower dose now as patient is back on tube feeds -recent hemoglobin A1c was 6.9 on 03/07/2021 (5) GI bleed: Code(s): K92.2 - Gastrointestinal hemorrhage, unspecified Status: Acute Assessment and Plan: New onset significant GI bleed leading to hypotension Patient was not on any anticoa
--- NOTE | 2021-05-18 15:50 | PC.NURSE ---
Family meeting with Dr. Owusu about pt. Family stating they are getting conflicting information each time they call for updates. Dr. Owusu told family from telephone that Dr. Owusu will be the only person the family will call for updates and plan of care. Family called back right after the conference with Dr. Owusu to talk to respiratory in which we transferred phone call back to Dr. Owusu to update family on breathing treatments and suctioning. RN with Dr. Owusu during phone session to confirm that only the MD will update family.
[2021-05-18 17:44] LABS: Glucose Point of Care 198 mg/dl (65-105)
[2021-05-19] VITALS (24 sets, daily range): BP systolic 101–119; BP diastolic 47–55; PULSE 90–107; RESP 13–92; TEMP 36.7–37.5; O2SAT 94–100
[2021-05-19 00:37] LABS: Glucose Point of Care 222 mg/dl (65-105)
[2021-05-19] MEDS: INSULIN ASPART (*BKC) 100 UNITS/ML SUB-Q ×4 (00:37→17:57)
[2021-05-19] MEDS: ALBUTEROL SULFATE NEB 2.5 MG/0.5 ML INH INHALATION ×4 (03:00→20:24)
[2021-05-19] MEDS: IPRATROPIUM BR 0.02% INH SOLN 0.5 MG/2.5 ML VIAL INHALATION ×4 (03:00→20:24)
[2021-05-19 05:39] LABS: Glucose Point of Care 226 mg/dl (65-105)
[2021-05-19] MEDS: CENTRAL LINE FLUSH 10 ML IV PUSH ×3 (05:41→20:12)
[2021-05-19 05:42] LABS: Basophils Absolute Auto 0.1 K/mm3 (0.0-0.1); Basophils Percent Auto 0.8 % (0.2-1.2); Eosinophils Absolute Auto 0.4 K/mm3 (0-0.3); Eosinophils Percent Auto 2.8 % (0-4.4); Hematocrit 26.4 % (37.0-47.0); Hemoglobin 8.3 g/dL (12.0-15.0); Immature Granulocyte Absolute 0.32 K/mm3 (0.00-0.031); Immature Granulocyte Percent A 2.5 % (0-0.5); Lymphocytes Absolute Auto 2.36 K/mm3 (0.9-3.2); Lymphocytes Percent Auto 18.6 % (18.3-44.2); Mean Corpuscular HGB Conc 31.4 g/dl (32-36); Mean Corpuscular Hemoglobin 30.3 pg (26-34); Mean Corpuscular Volume 96.4 fl (80-100); Mean Platelet Volume 8.6 fl (7.4-10.4); Monocytes Absolute Auto 0.8 K/mm3 (0.1-0.6); Monocytes Percent Auto 6.1 % (2.6-8.5); Neutrophils Absolute Auto 8.8 K/mm3 (1.3-6.7); Neutrophils Percent Auto 69.2 % (45.5-73.1); Platelet Count Result 487 k/mm3 (150-375); Red Blood Count 2.74 M/mm3 (4.2-5.4); Red Cell Distribution Width 15.6 % (11.5-14.5); White Blood Count 12.7 K/mm3 (4.5-10.0)
[2021-05-19 05:56] LABS: Alanine Aminotransferase 27 U/L (4-35); Albumin Level 3.4 g/dL (3.5-5.1); Alkaline Phosphatase 129 U/L (38-126); Anion Gap 5 mmol/L (8-16); Aspartate Amino Transferase 56 U/L (14-36); Bilirubin,Total < 0.1 mg/dL (0.2-1.3); Blood Urea Nitrogen 35 mg/dL (7-17); Calcium 9.1 mg/dL (8.4-10.2); Carbon Dioxide 34 mmol/L (22-30); Chloride 106 mmol/L (98-107); Estimated CRCL calculation 56 ml/min; Estimated Glomerular Filt Rate > 60; Glucose 231 mg/dL (65-110); Magnesium 2.1 mg/dL (1.6-2.3); Phosphorus 4.1 mg/dL (2.5-4.5); Potassium 4.1 mmol/L (3.4-5.0); Sodium 145 mmol/L (137-145)
[2021-05-19] MEDS: MINERAL OIL/WHITE PETROLATUM OINTMENT 1 APPLIC EACH EYE ×2 (08:05→20:08)
[2021-05-19] MEDS: MIDODRINE HCL 10 MG TABLET PO ×3 (08:06→16:22)
[2021-05-19] MEDS: levETIRAcetam ORAL SOL 500 MG/5 ML UDC FEED TUBE ×2 (08:06→20:07)
[2021-05-19] MEDS: PANTOPRAZOLE SODIUM IV 40 MG VIAL IV PUSH ×2 (08:07→20:07)
--- NOTE | 2021-05-19 11:28 | WPDINTPN ---
Progress Note: A&P Assessment and Plan (1) Respiratory failure: Code(s): J96.90 - Respiratory failure, unspecified, unspecified whether with hypoxia or hypercapnia Status: Acute Assessment and Plan: Acute Respiratory failure secondary to cardiac arrest and suspected aspiration pneumonia. Intubated 04/30/21 Continue full mechanical ventilation support to prevent hypoxemia/hypercarbia and end organ damage. Vent settings reviewed and ABGs been. Continue peep of 5 and 30% FiO2. Currently in ASV mode. Decrease ASV to 80% - PCXR reviewed - Stable diffuse lung disease, consistent with pneumonia. Bronchodilators CT done 05/10 confirmed presence of pneumonia Patient was intubated on 04/30. at this time patient is not a candidate for extubation as she will not be able to protect her airway due to her mental status. -have discussed with patient's for on 05/15/2021 regarding tracheostomy and withdrawal of support, family spoke care coordination on 05/16/2021 regarding possibility of tracheostomy, he was supposed to get back to [facility] -have been placing patient on SBT/PSV mode almost every day, on pressure support ventilation she becomes tachypneic, with low tidal volumes and hypoxia and has to be switched back to ASV mode -05/19: Patient did not tolerate spontaneous breathing trial/pressure support ventilation, she became tachypneic the mid 30s to 40s, was tachycardic, low tidal volumes of 170-220ml and desaturated so she was placed back on ASV mode of ventilation. The charge nurse and the respiratory therapist were present in the (2) Pneumonia: Code(s): J18.9 - Pneumonia, unspecified organism Status: Acute Assessment and Plan: Sputum cultures grew MSSA and pansensitive Pseudomonas Blood culture grew coag-negative staph which was likely contaminant and Corynebacterium from the other bottle which is also likely contaminant. But both should be covered with Zosyn patient is on empiric Zosyn which I will discontinue after a 14 day course COVID PCR is negative (3) Encephalopathy: Code(s): G93.40 - Encephalopathy, unspecified Status: Acute Assessment and Plan: Given patient's down time during the cardiac arrest suspect patient has anoxic brain injury. Patient had poor neurological function to start with at baseline. On last admission patient was nonverbal and did not follow any commands but was awake post extubation. 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 - unable to perform an MRI on a vented patient in [facility]. Patient had a unwitnessed cardiac arrest with non shockable rhythm with unknown downtime which is of likely respiratory etiology. She completed a moderate TTM protocol -neurology is following -CT head on admission: No change of large calcified brain mass since 04/15/2021; no acute intracranial findings since 04/15/2021 Fluid levels in some of the paranasal sinuses since 04/15/2021 -05/03/2021: EEG showed no evidence of cortical activity -05/07/2021: EEG - abnormal record due to the presence of very low-voltage activity over the left hemisphere and due to the presence of intermittent delta activity over the right hemisphere with decrement in the electrical activity. These findings are suggestive of underlying focal structural lesion of the right hemisphere there is no evidence of abnormal seizure-like discharges clinical correlation recommended -Keppra resumed 05/08 -patient is completely off sedation for more than 1 week -no meaningful improvement in neuro status since admit EEG # 3 was done on 05/16/2021. Neurology note available to read, with trying to get another neurologist to read the EEG (4) Insulin dependent type 2 diabetes mellitus: Code(s): E11.9 - Type 2 diabetes mellitus without complications; Z79.4 - senior care (current) use of insulin Status: Acute Assessment
[2021-05-19 12:42] LABS: Glucose Point of Care 237 mg/dl (65-105)
--- NOTE | 2021-05-19 16:29 | PM.IMPN ---
Progress Note: A&P Assessment and Plan (1) Respiratory failure: Code(s): J96.90 - Respiratory failure, unspecified, unspecified whether with hypoxia or hypercapnia Status: Acute Assessment and Plan: Acute Respiratory failure secondary to cardiac arrest and suspected aspiration pneumonia. Intubated 04/30/21 Continue full mechanical ventilation support to prevent hypoxemia/hypercarbia and end organ damage. PCXR reviewed - Stable diffuse lung disease, consistent with pneumonia. Bronchodilators CT done 05/10 confirmed presence of pneumonia Patient was intubated on 04/30. at this time patient is not a candidate for extubation as she will not be able to protect her airway due to her mental status. further mgmt per intensivit, plans for tracheostomy noted (2) Pneumonia: Code(s): J18.9 - Pneumonia, unspecified organism Status: Acute Assessment and Plan: Sputum cultures grew MSSA and pansensitive Pseudomonas Blood culture grew coag-negative staph which was likely contaminant and Corynebacterium from the other bottle which is also likely contaminant. But both should be covered with Zosyn patient is on empiric Zosyn COVID PCR is negative (3) Encephalopathy: Code(s): G93.40 - Encephalopathy, unspecified Status: Acute Assessment and Plan: Given patient's down time during the cardiac arrest suspect patient has anoxic brain injury. Patient had poor neurological function to start with at baseline. On last admission patient was nonverbal and did not follow any commands but was awake post extubation. 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 - unable to perform an MRI on a vented patient in [facility]. Patient had a unwitnessed cardiac arrest with non shockable rhythm with unknown downtime which is of likely respiratory etiology. She completed a moderate TTM protocol -neurology is following -CT head on admission: No change of large calcified brain mass since 04/15/2021; no acute intracranial findings since 04/15/2021 Fluid levels in some of the paranasal sinuses since 04/15/2021 -05/03/2021: EEG showed no evidence of cortical activity -05/07/2021: EEG - abnormal record due to the presence of very low-voltage activity over the left hemisphere and due to the presence of intermittent delta activity over the right hemisphere with decrement in the electrical activity. These findings are suggestive of underlying focal structural lesion of the right hemisphere there is no evidence of abnormal seizure-like discharges clinical correlation recommended -Keppra resumed 05/08 -patient is completely off sedation for more than 1 week -no meaningful improvement in neuro status since admit EEG # 3 was done on 05/16/2021. 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 Status: Acute Assessment and Plan: continue accucheks and slidinig scale resume Lantus at lower dose now as patient is back on tube feeds -recent hemoglobin A1c was 6.9 on 03/07/2021 (5) GI bleed: Code(s): K92.2 - Gastrointestinal hemorrhage, unspecified Status: Acute Assessment and Plan: New onset significant GI bleed leading to hypotension Patient was not on any anticoagulation or antiplatelet agents Patient's hemoglobin was monitor and patient has received 5 units of PRBC 05/09 Patient's coags are abnormal but not enough explain GI bleeding Patient was seen by GI will recommend conservative management at this time She has not required any transfusion since 05/09. . Continue to monitor hemoglobin but less frequent. Transfuse as needed. 05/11 Tube feeds were resumed yesterday after discussion with GI -hemoglobin stable, continue to mo
[2021-05-19 18:08] LABS: Glucose Point of Care 264 mg/dl (65-105)
[2021-05-20] VITALS (26 sets, daily range): BP systolic 106–125; BP diastolic 45–69; PULSE 79–103; RESP 10–100; TEMP 37.2–37.9; O2SAT 94–100
[2021-05-20] MEDS: INSULIN ASPART (*BKC) 100 UNITS/ML SUB-Q ×5 (00:51→23:32)
[2021-05-20 00:52] LABS: Glucose Point of Care 269 mg/dl (65-105)
[2021-05-20] MEDS: ALBUTEROL SULFATE NEB 2.5 MG/0.5 ML INH INHALATION ×4 (02:11→20:11)
[2021-05-20] MEDS: IPRATROPIUM BR 0.02% INH SOLN 0.5 MG/2.5 ML VIAL INHALATION ×4 (02:11→20:11)
[2021-05-20 06:08] LABS: Glucose Point of Care 249 mg/dl (65-105)
[2021-05-20] MEDS: CENTRAL LINE FLUSH 10 ML IV PUSH ×3 (06:11→20:37)
[2021-05-20] MEDS: MIDODRINE HCL 10 MG TABLET PO ×3 (08:03→16:03)
[2021-05-20] MEDS: levETIRAcetam ORAL SOL 500 MG/5 ML UDC FEED TUBE ×2 (08:03→20:37)
[2021-05-20] MEDS: MINERAL OIL/WHITE PETROLATUM OINTMENT 1 APPLIC EACH EYE ×2 (08:04→20:37)
[2021-05-20] MEDS: PANTOPRAZOLE SODIUM IV 40 MG VIAL IV PUSH ×2 (08:04→20:37)
--- NOTE | 2021-05-20 11:18 | WPDINTPN ---
Progress Note: A&P Assessment and Plan (1) Respiratory failure: Code(s): J96.90 - Respiratory failure, unspecified, unspecified whether with hypoxia or hypercapnia Status: Acute Assessment and Plan: Acute Respiratory failure secondary to cardiac arrest and suspected aspiration pneumonia. Intubated 04/30/21 Continue full mechanical ventilation support to prevent hypoxemia/hypercarbia and end organ damage. Vent settings reviewed and ABGs been. Continue peep of 5 and 30% FiO2. Currently in ASV mode. Decrease ASV to 80% PCXR reviewed - Stable diffuse lung disease, consistent with pneumonia. Bronchodilators CT done 05/10 confirmed presence of pneumonia Patient was intubated on 04/30. at this time patient is not a candidate for extubation as she will not be able to protect her airway due to her mental status. -have discussed with patient's for on 05/15/2021 regarding tracheostomy and withdrawal of support, family spoke care coordination on 05/16/2021 regarding possibility of tracheostomy, he was supposed to get back to [facility] -have been placing patient on SBT/PSV mode almost every day, on pressure support ventilation she becomes tachypneic, with low tidal volumes and hypoxia and has to be switched back to ASV mode. Also her mental status precludes from reviewing the ETT. Patient will benefit from tracheostomy or withdrawal of support -05/20: Patient did not tolerate spontaneous breathing trial/pressure support ventilation, she became tachypneic, tachycardic, low tidal volumes so she was placed back on ASV mode of ventilation. (2) Pneumonia: Code(s): J18.9 - Pneumonia, unspecified organism Status: Acute Assessment and Plan: Sputum cultures grew MSSA and pansensitive Pseudomonas Blood culture grew coag-negative staph which was likely contaminant and Corynebacterium from the other bottle which is also likely contaminant. But both should be covered with Zosyn Status post 14 days of Zosyn COVID PCR is negative (3) Encephalopathy: Code(s): G93.40 - Encephalopathy, unspecified Status: Acute Assessment and Plan: Given patient's down time during the cardiac arrest suspect patient has anoxic brain injury. Patient had poor neurological function to start with at baseline. On last admission patient was nonverbal and did not follow any commands but was awake post extubation. 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 - unable to perform an MRI on a vented patient in [facility]. Patient had a unwitnessed cardiac arrest with non shockable rhythm with unknown downtime which is of likely respiratory etiology. She completed a moderate TTM protocol -neurology is following -CT head on admission: No change of large calcified brain mass since 04/15/2021; no acute intracranial findings since 04/15/2021 Fluid levels in some of the paranasal sinuses since 04/15/2021 -05/03/2021: EEG showed no evidence of cortical activity -05/07/2021: EEG - abnormal record due to the presence of very low-voltage activity over the left hemisphere and due to the presence of intermittent delta activity over the right hemisphere with decrement in the electrical activity. These findings are suggestive of underlying focal structural lesion of the right hemisphere there is no evidence of abnormal seizure-like discharges clinical correlation recommended -Keppra resumed 05/08 -patient is completely off sedation for more than 1 week -no meaningful improvement in neuro status since admit EEG # 3 was done on 05/16/2021. Neurology note available to read, with trying to get another neurologist to read the EEG (4) Insulin dependent type 2 diabetes mellitus: Code(s): E11.9 - Type 2 diabetes mellitus without complications; Z79.4 - long term (current) use of insulin Status: Acute Assessment and Plan: continue accucheks and slidin
[2021-05-20] MEDS: INSULIN GLARGINE (*BKC) 100 UNITS/ML 10 UNITS SUB-Q (12:05)
[2021-05-20 12:15] LABS: Glucose Point of Care 301 mg/dl (65-105)
--- NOTE | 2021-05-20 15:11 | P.PNIM_ITS ---
Progress Note: A&P Assessment and Plan (1) Respiratory failure: Code(s): J96.90 - Respiratory failure, unspecified, unspecified whether with hypoxia or hypercapnia Status: Acute Assessment and Plan: Acute Respiratory failure secondary to cardiac arrest and suspected aspiration pneumonia. Intubated 04/30/21 Continue full mechanical ventilation support to prevent hypoxemia/hypercarbia and end organ damage. Vent settings reviewed and ABGs been. Continue peep of 5 and 30% FiO2. Currently in ASV mode. Decrease ASV to 80% PCXR reviewed - Stable diffuse lung disease, consistent with pneumonia. Bronchodilators CT done 05/10 confirmed presence of pneumonia Patient was intubated on 04/30. at this time patient is not a candidate for extubation as she will not be able to protect her airway due to her mental status. 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 Also her mental status precludes from reviewing the ETT. Patient will benefit from tracheostomy or withdrawal of support -05/20: Patient did not tolerate spontaneous breathing trial/pressure support ventilation, she became tachypneic, tachycardic, low tidal volumes so she was placed back on ASV mode of ventilation. (2) Pneumonia: Code(s): J18.9 - Pneumonia, unspecified organism Status: Acute Assessment and Plan: Sputum cultures grew MSSA and pansensitive Pseudomonas Blood culture grew coag-negative staph which was likely contaminant and Corynebacterium from the other bottle which is also likely contaminant. But both should be covered with Zosyn Status post 14 days of Zosyn COVID PCR is negative (3) Encephalopathy: Code(s): G93.40 - Encephalopathy, unspecified Status: Acute Assessment and Plan: Given patient's down time during the cardiac arrest suspect patient has anoxic brain injury. Patient had poor neurological function to start with at baseline. On last admission patient was nonverbal and did not follow any commands but was awake post extubation. 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 - unable to perform an MRI on a vented patient in [facility]. Patient had a unwitnessed cardiac arrest with non shockable rhythm with unknown downtime which is of likely respiratory etiology. She completed a moderate TTM protocol -neurology is following -CT head on admission: No change of large calcified brain mass since 04/15/2021; no acute intracranial findings since 04/15/2021 Fluid levels in some of the paranasal sinuses since 04/15/2021 -05/03/2021: EEG showed no evidence of cortical activity -05/07/2021: EEG - abnormal record due to the presence of very low-voltage activity over the left hemisphere and due to the presence of intermittent delta activity over the right hemisphere with decrement in the electrical activity. These findings are suggestive of underlying focal structural lesion of the right hemisphere there is no evidence of abnormal seizure-like discharges clinical correlation recommended -Keppra resumed 05/08 -patient is completely off sedation for more than 1 week -no meaningful improvement in neuro status since admit EEG # 3 was done on 05/16/2021. Neurology note available to read, with trying
[2021-05-20 18:11] LABS: Glucose Point of Care 242 mg/dl (65-105)
[2021-05-20 23:20] LABS: Glucose Point of Care 212 mg/dl (65-105)
[2021-05-21] VITALS (25 sets, daily range): BP systolic 107–132; BP diastolic 43–57; PULSE 77–101; RESP 10–32; TEMP 37.1–37.5; O2SAT 95–100
[2021-05-21] MEDS: IPRATROPIUM BR 0.02% INH SOLN 0.5 MG/2.5 ML VIAL INHALATION ×4 (02:06→20:13)
[2021-05-21] MEDS: ALBUTEROL SULFATE NEB 2.5 MG/0.5 ML INH INHALATION ×4 (02:07→20:13)
[2021-05-21 05:23] LABS: Glucose Point of Care 228 mg/dl (65-105)
[2021-05-21] MEDS: INSULIN ASPART (*BKC) 100 UNITS/ML SUB-Q ×4 (06:13→23:54)
[2021-05-21] MEDS: CENTRAL LINE FLUSH 10 ML IV PUSH ×3 (06:14→22:13)
--- NOTE | 2021-05-21 08:35 | WPDINTPN ---
Progress Note: A&P Assessment and Plan (1) Respiratory failure: Code(s): J96.90 - Respiratory failure, unspecified, unspecified whether with hypoxia or hypercapnia Status: Acute Assessment and Plan: Acute Respiratory failure secondary to cardiac arrest and suspected aspiration pneumonia. Intubated 04/30/21 Continue full mechanical ventilation support to prevent hypoxemia/hypercarbia and end organ damage. Vent settings reviewed and ABGs been. Continue peep of 5 and 25% FiO2. Currently in ASV mode. Decrease ASV to 80% minute ventilation -continue Bronchodilators -have discussed with the family regarding tracheostomy or withdrawal of support, family is waiting for the 3rd EEG to be read by Neurology -have been placing patient on SBT/PSV mode almost every day, on pressure support ventilation she becomes tachypneic, with low tidal volumes and hypoxia and has to be switched back to ASV mode. Also her mental status precludes from reviewing the ETT. Patient will benefit from tracheostomy or withdrawal of support -05/21: Patient did not tolerate spontaneous breathing trial/pressure support ventilation, she became tachypneic > 40s, low tidal volumes so she was placed back on ASV mode of ventilation. (2) Pneumonia: Code(s): J18.9 - Pneumonia, unspecified organism Status: Acute Assessment and Plan: Sputum cultures grew MSSA and pansensitive Pseudomonas Blood culture grew coag-negative staph which was likely contaminant and Corynebacterium from the other bottle which is also likely contaminant. But both should be covered with Zosyn Status post 14 days of Zosyn COVID PCR is negative (3) Encephalopathy: Code(s): G93.40 - Encephalopathy, unspecified Status: Acute Assessment and Plan: Given patient's down time during the cardiac arrest suspect patient has anoxic brain injury. Patient had poor neurological function to start with at baseline. On last admission patient was nonverbal and did not follow any commands but was awake post extubation. 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 - unable to perform an MRI on a vented patient in [facility]. Patient had a unwitnessed cardiac arrest with non shockable rhythm with unknown downtime which is of likely respiratory etiology. She completed a moderate TTM protocol -neurology is following -CT head on admission: No change of large calcified brain mass since 04/15/2021; no acute intracranial findings since 04/15/2021 Fluid levels in some of the paranasal sinuses since 04/15/2021 -05/03/2021: EEG showed no evidence of cortical activity -05/07/2021: EEG - abnormal record due to the presence of very low-voltage activity over the left hemisphere and due to the presence of intermittent delta activity over the right hemisphere with decrement in the electrical activity. These findings are suggestive of underlying focal structural lesion of the right hemisphere there is no evidence of abnormal seizure-like discharges clinical correlation recommended -Keppra resumed 05/08 -patient is completely off sedation for more than 1 week -no meaningful improvement in neuro status since admit EEG # 3 was done on 05/16/2021. 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
[2021-05-21] MEDS: MIDODRINE HCL 10 MG TABLET PO ×3 (09:30→17:53)
[2021-05-21] MEDS: levETIRAcetam ORAL SOL 500 MG/5 ML UDC FEED TUBE ×2 (09:30→20:27)
[2021-05-21] MEDS: PANTOPRAZOLE SODIUM IV 40 MG VIAL IV PUSH ×2 (09:31→20:27)
[2021-05-21] MEDS: MINERAL OIL/WHITE PETROLATUM OINTMENT 1 APPLIC EACH EYE ×2 (09:31→20:27)
[2021-05-21] MEDS: INSULIN GLARGINE (*BKC) 100 UNITS/ML 18 UNITS SUB-Q (09:33)
[2021-05-21 09:45] LABS: Glucose Point of Care 222 mg/dl (65-105)
--- NOTE | 2021-05-21 11:21 | PCFNICU ---
ICU Rounding Note: Pt current nutrition is Glucerna 1.2 at 70 ml/hr over 22 hours. Last recorded weight is 68.5 kg-stable Bowel Motility:+BM reported 05/20 Labs Reviewed:No labs to report Meds Noted:Albuterol, NovoLog, Lantus, Keppra, Atrovent, Midodrine, Protonix Skin:Stage II PU-saccum and left heel. Additional Notes: Patient remains on mechanical vent and tube feedings of Glucerna 1.2 at 70 ml/hr over 22 hours and tolerating per nursing. Free water flush 30 ml q 4 hours. Protein Modular of Robbie BID flushed via tube for wound healing. Agree with diet orders. Following daily in ICU rounds and reassessing every Friday and Friday.
[2021-05-21 11:45] LABS: Glucose Point of Care 268 mg/dl (65-105)
[2021-05-21] MEDS: ONDANSETRON INJ 4 MG/2 ML VIAL IV PUSH ×2 (12:25→20:27)
--- NOTE | 2021-05-21 14:49 | PM.IMPN ---
Progress Note: A&P Assessment and Plan (1) Respiratory failure: Code(s): J96.90 - Respiratory failure, unspecified, unspecified whether with hypoxia or hypercapnia Status: Acute Assessment and Plan: Acute Respiratory failure secondary to cardiac arrest and suspected aspiration pneumonia. Intubated 04/30/21 Continue full mechanical ventilation support to prevent hypoxemia/hypercarbia and end organ damage. Vent settings reviewed and ABGs been. Continue peep of 5 and 30% FiO2. Currently in ASV mode. Decrease ASV to 80% PCXR reviewed - Stable diffuse lung disease, consistent with pneumonia. Bronchodilators CT done 05/10 confirmed presence of pneumonia Patient was intubated on 04/30. at this time patient is not a candidate for extubation as she will not be able to protect her airway due to her mental status. -have discussed with patient's for on 05/15/2021 regarding tracheostomy and withdrawal of support, family spoke care coordination on 05/16/2021 regarding possibility of tracheostomy, he was supposed to get back to [facility] intensive care unit -have been placing patient on SBT/PSV mode almost every day, on pressure support ventilation she becomes tachypneic, with low tidal volumes and hypoxia and has to be switched back to ASV mode. Also her mental status precludes from reviewing the ETT. Patient will benefit from tracheostomy or withdrawal of support -05/20: Patient did not tolerate spontaneous breathing trial/pressure support ventilation, she became tachypneic, tachycardic, low tidal volumes so she was placed back on ASV mode of ventilation. (2) Pneumonia: Code(s): J18.9 - Pneumonia, unspecified organism Status: Acute Assessment and Plan: Sputum cultures grew MSSA and pansensitive Pseudomonas Blood culture grew coag-negative staph which was likely contaminant and Corynebacterium from the other bottle which is also likely contaminant. But both should be covered with Zosyn Status post 14 days of Zosyn COVID PCR is negative (3) Encephalopathy: Code(s): G93.40 - Encephalopathy, unspecified Status: Acute Assessment and Plan: Given patient's down time during the cardiac arrest suspect patient has anoxic brain injury. Patient had poor neurological function to start with at baseline. On last admission patient was nonverbal and did not follow any commands but was awake post extubation. 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 - unable to perform an MRI on a vented patient in [facility]. Patient had a unwitnessed cardiac arrest with non shockable rhythm with unknown downtime which is of likely respiratory etiology. She completed a moderate TTM protocol -neurology is following -CT head on admission: No change of large calcified brain mass since 04/15/2021; no acute intracranial findings since 04/15/2021 Fluid levels in some of the paranasal sinuses since 04/15/2021 -05/03/2021: EEG showed no evidence of cortical activity -05/07/2021: EEG - abnormal record due to the presence of very low-voltage activity over the left hemisphere and due to the presence of intermittent delta activity over the right hemisphere with decrement in the electrical activity. These findings are suggestive of underlying focal structural lesion of the right hemisphere there is no evidence of abnormal seizure-like discharges clinical correlation recommended -Keppra resumed 05/08 -patient is completely off sedation for more than 1 week -no meaningful improvement in neuro status since admit EEG # 3 was done on 05/16/2021. 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
[2021-05-21 17:43] LABS: Glucose Point of Care 252 mg/dl (65-105)
[2021-05-21 23:56] LABS: Glucose Point of Care 275 mg/dl (65-105)
[2021-05-22] VITALS (28 sets, daily range): BP systolic 92–131; BP diastolic 48–64; PULSE 86–114; RESP 15–24; TEMP 37.1–37.7; O2SAT 65–96
[2021-05-22] MEDS: IPRATROPIUM BR 0.02% INH SOLN 0.5 MG/2.5 ML VIAL INHALATION ×4 (02:41→20:05)
[2021-05-22] MEDS: ALBUTEROL SULFATE NEB 2.5 MG/0.5 ML INH INHALATION ×4 (02:41→20:05)
[2021-05-22 05:19] LABS: Basophils Absolute Auto 0.1 K/mm3 (0.0-0.1); Eosinophils Absolute Auto 0.5 K/mm3 (0-0.3); Eosinophils Percent Auto 4.4 % (0-4.4); Hematocrit 26.6 % (37.0-47.0); Hemoglobin 8.4 g/dL (12.0-15.0); Immature Granulocyte Absolute 0.24 K/mm3 (0.00-0.031); Immature Granulocyte Percent A 2.1 % (0-0.5); Lymphocytes Absolute Auto 2.34 K/mm3 (0.9-3.2); Lymphocytes Percent Auto 20.8 % (18.3-44.2); Mean Corpuscular HGB Conc 31.6 g/dl (32-36); Mean Corpuscular Hemoglobin 29.5 pg (26-34); Mean Corpuscular Volume 93.3 fl (80-100); Mean Platelet Volume 9.3 fl (7.4-10.4); Monocytes Absolute Auto 0.8 K/mm3 (0.1-0.6); Monocytes Percent Auto 7.3 % (2.6-8.5); Neutrophils Absolute Auto 7.3 K/mm3 (1.3-6.7); Neutrophils Percent Auto 64.4 % (45.5-73.1); Platelet Count Result 505 k/mm3 (150-375); Red Blood Count 2.85 M/mm3 (4.2-5.4); Red Cell Distribution Width 15.3 % (11.5-14.5); White Blood Count 11.3 K/mm3 (4.5-10.0)
[2021-05-22 05:53] LABS: Alanine Aminotransferase 30 U/L (4-35); Albumin Level 3.5 g/dL (3.5-5.1); Alkaline Phosphatase 135 U/L (38-126); Anion Gap 6 mmol/L (8-16); Aspartate Amino Transferase 55 U/L (14-36); Bilirubin,Total < 0.1 mg/dL (0.2-1.3); Blood Urea Nitrogen 40 mg/dL (7-17); Calcium 8.9 mg/dL (8.4-10.2); Carbon Dioxide 32 mmol/L (22-30); Chloride 104 mmol/L (98-107); Estimated CRCL calculation 64 ml/min; Estimated Glomerular Filt Rate > 60; Glucose 283 mg/dL (65-110); Phosphorus 4.2 mg/dL (2.5-4.5); Potassium 4.3 mmol/L (3.4-5.0); Sodium 142 mmol/L (137-145)
[2021-05-22] MEDS: CENTRAL LINE FLUSH 10 ML IV PUSH ×3 (05:57→21:04)
[2021-05-22] MEDS: INSULIN ASPART (*BKC) 100 UNITS/ML SUB-Q ×4 (05:57→23:05)
[2021-05-22] MEDS: ONDANSETRON INJ 4 MG/2 ML VIAL IV PUSH (08:12)
[2021-05-22] MEDS: INSULIN GLARGINE (*BKC) 100 UNITS/ML 18 UNITS SUB-Q (08:13)
[2021-05-22] MEDS: levETIRAcetam ORAL SOL 500 MG/5 ML UDC FEED TUBE ×2 (08:16→21:04)
[2021-05-22] MEDS: MIDODRINE HCL 10 MG TABLET PO (08:17)
[2021-05-22] MEDS: MINERAL OIL/WHITE PETROLATUM OINTMENT 1 APPLIC EACH EYE ×2 (08:17→21:04)
[2021-05-22] MEDS: PANTOPRAZOLE SODIUM IV 40 MG VIAL IV PUSH ×2 (08:17→21:04)
[2021-05-22 08:19] LABS: Glucose Point of Care 248 mg/dl (65-105)
--- NOTE | 2021-05-22 08:19 | WPDINTPN ---
Progress Note: A&P Assessment and Plan (1) Respiratory failure: Code(s): J96.90 - Respiratory failure, unspecified, unspecified whether with hypoxia or hypercapnia Status: Acute Assessment and Plan: Acute Respiratory failure secondary to cardiac arrest and suspected aspiration pneumonia. Intubated 04/30/21 Continue full mechanical ventilation support to prevent hypoxemia/hypercarbia and end organ damage. Vent settings reviewed and ABGs been. Continue peep of 5 and 25% FiO2. Currently in ASV mode at 80% minute ventilation -continue Bronchodilators -have discussed with the family regarding tracheostomy or withdrawal of support, family is waiting for the 3rd EEG to be read by Neurology before making decision -she has failed SBT/PSV mode due to tachypnea with low tidal volumes and hypoxia and has to be switched back to ASV mode. Also her mental status precludes her from weaning the ETT. Patient needs tracheostomy if family wants to continue mechanical ventilation support (2) Pneumonia: Code(s): J18.9 - Pneumonia, unspecified organism Status: Acute Assessment and Plan: Sputum cultures grew MSSA and pansensitive Pseudomonas Blood culture grew coag-negative staph which was likely contaminant and Corynebacterium from the other bottle which is also likely contaminant. But both should be covered with Zosyn Status post 14 days of Zosyn COVID PCR is negative (3) Encephalopathy: Code(s): G93.40 - Encephalopathy, unspecified Status: Acute Assessment and Plan: Given patient's down time during the cardiac arrest suspect patient has anoxic brain injury. Patient had poor neurological function to start with at baseline. On last admission patient was nonverbal and did not follow any commands but was awake post extubation. 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 - unable to perform an MRI on a vented patient in [facility]. Patient had a unwitnessed cardiac arrest with non shockable rhythm with unknown downtime which is of likely respiratory etiology. She completed a moderate TTM protocol -CT head on admission: No change of large calcified brain mass since 04/15/2021; no acute intracranial findings since 04/15/2021 Fluid levels in some of the paranasal sinuses since 04/15/2021 -05/03/2021: EEG showed no evidence of cortical activity -05/07/2021: EEG - abnormal record due to the presence of very low-voltage activity over the left hemisphere and due to the presence of intermittent delta activity over the right hemisphere with decrement in the electrical activity. These findings are suggestive of underlying focal structural lesion of the right hemisphere there is no evidence of abnormal seizure-like discharges clinical correlation recommended -Keppra resumed 05/08 -patient is completely off sedation for more than a weeks now -no meaningful improvement in neuro status since admit --neurology is following EEG # 3 was done on 05/16/2021. 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 Status: Acute Assessment and Plan: continue accucheks and slidinig scale -increase Lantus further -recent hemoglobin A1c was 6.9 on 03/07/2021 (5) GI bleed: Code(s): K92.2 - Gastrointestinal hemorrhage, unspecified Status: Acute Assessment and Plan: RESOLVED New onset significant GI bleed leading to hypotension Patient was not on any anticoagulation or antiplatelet agents Patient's hemoglobin was monitor and patient has received 5 units of PRBC 05/09 Patient's coags are abnormal but not enough explain GI bleeding Patient was seen by GI will recommend conservative management at this time She has not required any transfusion since 05/09. . Continue to pradeep
[2021-05-22] MEDS: INSULIN GLARGINE (*BKC) 100 UNITS/ML 8 UNITS SUB-Q (08:29)
--- NOTE | 2021-05-22 10:23 | WPDNEUROLOGY ---
Neurology EEG Report General Information Date of Study: 05/16/21 TEST eeg DIAGNOSIS is status post cardiac arrest CONDITION OF RECORDING comatose EEG NUMBER [id number] CLINICAL HISTORY this is a repeat EEG following cardiac arrest and hypothermia treatment and no sedation for almost 2 weeks EEG DESCRIPTION whole record consists of no cerebral activity. Obviously hyperventilation not done photic stimulation not done non paroxysmal nonfocal nonlateralizing IMPRESSION no evidence of cortical activity throughout the tracing
--- NOTE | 2021-05-22 12:06 | PCNFU ---
Nutrition Follow-Up Complete: Inadequate Oral Intake as related to intubation as evidenced by NPO. Goal: Meet estimated nutritional needs Patient continues with current goal. Pt current nutrition is Glucerna 1.2 at 70 ml/hr over 22 hours. Last recorded weight is 64.7 kg, down from 66 kg on admit. Bowel Motility:+BM reported 05/21 Labs Reviewed: Glu 283, Cr 0.6, Hct 26.6, Hgb 8.4, BUN 40 Meds Noted: Albuterol, NovoLog, Lantus, Keppra, Atrovent, Midodrine, Protonix Skin: Stage II PU-left heel and saccum. Additional Notes: Patient remains on mechanical vent and tube feedings of Glucerna 1.2 at 70 ml/hr over 22 hours-tolerating per nursing. Protein Modular of Robbie BID flushed via tube for wound healing. Free water flush 30 ml q 4 hours. Plans for EEG by neuro today. Family to make plan of care decisions based on results. Agree with diet orders. Will monitor in ICU rounds and reassessing every Friday and Friday.
--- NOTE | 2021-05-22 12:20 | WPDNEUROPN ---
Progress Note: A&P Additional Plan 1. Status post cardiopulmonary arrest with no cortical responses but brainstem functions intact, eeg completely flat even there is no evidence of seizures. 2. All other comorbid conditions as mentioned before 3. Plan to discuss with the family Time Spent With Patient Time with patient: 15 - 25 minutes Subjective Date/time seen: 05/22/21 12:20 76 years old lady with ongoing history cardiopulmonary arrest with initial EEG flat and the repeat EEG obtained she again revealed no evidence of cortical activity and her CT scan of the head as before consistent with large calcified brain mass with no acute changes patient currently receiving levetiracetam 500 q.12 hours per tube but no sedation Review of Systems Review of Systems: All systems reviewed & are unremarkable except as noted in HPI and below Exam Narrative: examination revealed her to be arousable with sternal rub with both eyes open with no spontaneous nystagmus and no responses to the verbal stimuli or painful stimuli, there is no extraocular movements no spontaneous movements of the upper and lower extremities and no evidence of myoclonic, no facial reaction to the verbal stimuli, reflexes sluggish and plantar responses upgoing Objective Data Vital Signs Vital Signs: Vital Signs - 24 hr 05/21/21 13:58 05/21/21 14:00 05/21/21 16:00 Temperature 37.5 C 37.3 C Pulse Rate 93 98 83 Respiratory Rate 13 26 H 16 Blood Pressure 111/53 L 125/50 L Pulse Oximetry 99 100 96 05/21/21 16:50 05/21/21 18:00 05/21/21 20:00 Temperature 37.1 C 37.1 C Pulse Rate 84 85 80 Respiratory Rate 14 13 Blood Pressure 120/43 L 120/46 L Pulse Oximetry 97 97 97 05/21/21 20:14 05/21/21 20:23 05/21/21 22:00 Temperature 37.2 C Pulse Rate 80 80 88 Respiratory Rate 16 13 19 Blood Pressure 126/53 L Pulse Oximetry 97 97 05/21/21 23:27 05/22/21 00:00 05/22/21 02:00 Temperature 37.2 C 37.3 C Pulse Rate 86 92 88 Respiratory Rate 24 H 18 Blood Pressure 128/56 L 114/55 L Pulse Oximetry 96 96 96 05/22/21 02:41 05/22/21 02:48 05/22/21 03:58 Temperature Pulse Rate 93 93 86 Respiratory Rate 18 15 Blood Pressure Pulse Oximetry 96 05/22/21 04:00 05/22/21 05:07 05/22/21 05:49 Temperature 37.2 C Pulse Rate 98 97 93 Respiratory Rate 20 Blood Pressure 92/58 L Pulse Oximetry 95 96 05/22/21 06:00 05/22/21 08:00 05/22/21 08:10 Temperature 37.1 C 37.2 C Pulse Rate 98 97 100 Respiratory Rate 20 16 18 Blood Pressure 115/48 L 129/51 L Pulse Oximetry 96 95 05/22/21 08:13 05/22/21 08:18 05/22/21 10:00 Temperature 37.2 C Pulse Rate 103 H 105 H 105 H Respiratory Rate 16 18 Blood Pressure 126/55 L Pulse Oximetry 95 96 05/22/21 11:23 Temperature Pulse Rate 104 H Respiratory Rate Blood Pressure Pulse Oximetry 95 Intake/Output Intake/Output: Intake & Output 05/19/21 05/20/21 05/21/21 05/22/21 23:59 23:59 23:59 23:59 Intake Total 1623 1770 1826 1149 Output Total 2100 1300 1950 1050 Balance -477 470 -124 99 Meds/Results Medications: Active Medications Generic Name Dose Route Start Last Admin Trade Name Freq PRN Reason Stop Dose Admin Albuterol 2.5 mg 04/30/21 20:00 05/22/21 08:10 Albuterol Sulfate Neb 2.5 Mg/0.5 Ml Inh INHALATION 2.5 mg Q6HRT BRYCE Administration Alteplase, Recombinant 2 mg 05/14/21 12:11 05/14/21 12:39 Alteplase 2 Mg Vial (Cathflo) IV PUSH 2 mg ONCE PRN Administration Line Occlusion Dextrose 12.5 gm 05/01/21 10:23 05/08/21 06:38 Dextrose 50% 25 Gm/50 Ml Syringe IV PUSH 12.5 gm PRN PRN Administration Hypoglycemia Protocol Glucagon 1 mg 05/01/21 10:23 Glucagon For Inj 1 Mg Vial IM PRN PRN Hypoglycemia Protocol Glucose 15 gm 05/01/21 10:23 Glucose Oral Gel 15 Gm Of Glucse In 37.5 Gm Tube PO PRN PRN Hypoglycemia Protocol Dextrose 1,000 mls @ 100 mls/hr 05/01/21 10:23 05/13
[2021-05-22 12:25] LABS: Glucose Point of Care 278 mg/dl (65-105)
[2021-05-22 17:56] LABS: Glucose Point of Care 297 mg/dl (65-105)
[2021-05-22 21:15] LABS: Glucose Point of Care 278 mg/dl (65-105)
[2021-05-23] VITALS (27 sets, daily range): BP systolic 110–146; BP diastolic 54–70; PULSE 102–117; RESP 9–95; TEMP 37.3–37.8; O2SAT 94–99
[2021-05-23] MEDS: IPRATROPIUM BR 0.02% INH SOLN 0.5 MG/2.5 ML VIAL INHALATION ×4 (02:32→20:35)
[2021-05-23] MEDS: ALBUTEROL SULFATE NEB 2.5 MG/0.5 ML INH INHALATION ×4 (02:32→20:35)
[2021-05-23 04:39] LABS: Glucose Point of Care 292 mg/dl (65-105)
[2021-05-23] MEDS: INSULIN ASPART (*BKC) 100 UNITS/ML SUB-Q ×6 (06:17→23:47)
[2021-05-23] MEDS: CENTRAL LINE FLUSH 10 ML IV PUSH ×3 (06:18→20:17)
[2021-05-23] MEDS: ONDANSETRON INJ 4 MG/2 ML VIAL IV PUSH (08:30)
[2021-05-23] MEDS: MINERAL OIL/WHITE PETROLATUM OINTMENT 1 APPLIC EACH EYE ×2 (08:37→20:16)
[2021-05-23] MEDS: PANTOPRAZOLE SODIUM IV 40 MG VIAL IV PUSH ×2 (08:37→20:16)
[2021-05-23] MEDS: levETIRAcetam ORAL SOL 500 MG/5 ML UDC FEED TUBE ×2 (08:37→20:15)
[2021-05-23] MEDS: INSULIN GLARGINE (*BKC) 100 UNITS/ML 35 UNITS SUB-Q (08:37)
[2021-05-23 08:42] LABS: Glucose Point of Care 239 mg/dl (65-105)
--- NOTE | 2021-05-23 08:49 | WPDINTPN ---
Progress Note: A&P Assessment and Plan (1) Respiratory failure: Code(s): J96.90 - Respiratory failure, unspecified, unspecified whether with hypoxia or hypercapnia Status: Acute Assessment and Plan: Acute Respiratory failure secondary to cardiac arrest and suspected aspiration pneumonia. Intubated 04/30/21 Continue full mechanical ventilation support to prevent hypoxemia/hypercarbia and end organ damage. Vent settings reviewed and ABGs been. Continue peep of 5 and 25% FiO2. Currently in ASV mode at 80% minute ventilation -continue Bronchodilators -have discussed with the family regarding tracheostomy or withdrawal of support, Results of 3rd EEG were discussed with family by Neurology. They have not made any decision yet -she has failed SBT/PSV mode due to tachypnea with low tidal volumes and hypoxia and has to be switched back to ASV mode. Also her mental status precludes her from weaning the ETT. Patient needs tracheostomy if family wants to continue mechanical ventilation support (2) Pneumonia: Code(s): J18.9 - Pneumonia, unspecified organism Status: Acute Assessment and Plan: Sputum cultures grew MSSA and pansensitive Pseudomonas Blood culture grew coag-negative staph which was likely contaminant and Corynebacterium from the other bottle which is also likely contaminant. But both should be covered with Zosyn Status post 14 days of Zosyn COVID PCR is negative (3) Encephalopathy: Code(s): G93.40 - Encephalopathy, unspecified Status: Acute Assessment and Plan: Given patient's down time during the cardiac arrest suspect patient has anoxic brain injury. Patient had poor neurological function to start with at baseline. On last admission patient was nonverbal and did not follow any commands but was awake post extubation. 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 - unable to perform an MRI on a vented patient in [facility]. Patient had a unwitnessed cardiac arrest with non shockable rhythm with unknown downtime which is of likely respiratory etiology. She completed a moderate TTM protocol -CT head on admission: No change of large calcified brain mass since 04/15/2021; no acute intracranial findings since 04/15/2021 Fluid levels in some of the paranasal sinuses since 04/15/2021 -05/03/2021: EEG showed no evidence of cortical activity -05/07/2021: EEG - abnormal record due to the presence of very low-voltage activity over the left hemisphere and due to the presence of intermittent delta activity over the right hemisphere with decrement in the electrical activity. These findings are suggestive of underlying focal structural lesion of the right hemisphere there is no evidence of abnormal seizure-like discharges clinical correlation recommended -Keppra resumed 05/08 -patient is completely off sedation for more than a weeks now -no meaningful improvement in neuro status since admit --neurology is following EEG # 3 was done on 05/16/2021 and showed no evidence of cortical activity throughout the tracing Results were discussed by neurologist with the family yesterday by phone (4) Insulin dependent type 2 diabetes mellitus: Code(s): E11.9 - Type 2 diabetes mellitus without complications; 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
[2021-05-23 09:00] LABS: Alanine Aminotransferase 29 U/L (4-35); Albumin Level 3.7 g/dL (3.5-5.1); Alkaline Phosphatase 143 U/L (38-126); Anion Gap 7 mmol/L (8-16); Aspartate Amino Transferase 49 U/L (14-36); Bilirubin,Total 0.3 mg/dL (0.2-1.3); Blood Urea Nitrogen 37 mg/dL (7-17); Calcium 9.2 mg/dL (8.4-10.2); Carbon Dioxide 32 mmol/L (22-30); Chloride 103 mmol/L (98-107); Estimated CRCL calculation 64 ml/min; Estimated Glomerular Filt Rate > 60; Glucose 254 mg/dL (65-110); Magnesium 2.2 mg/dL (1.6-2.3); Potassium 4.4 mmol/L (3.4-5.0); Sodium 142 mmol/L (137-145)
[2021-05-23 09:09] LABS: Hemoglobin 8.6 g/dL (12.0-15.0); Mean Corpuscular HGB Conc 30.7 g/dl (32-36); Mean Corpuscular Hemoglobin 28.8 pg (26-34); Mean Corpuscular Volume 93.6 fl (80-100); Mean Platelet Volume 9.5 fl (7.4-10.4); Platelet Count Result 434 k/mm3 (150-375); Red Blood Count 2.99 M/mm3 (4.2-5.4); Red Cell Distribution Width 15.4 % (11.5-14.5); White Blood Count 11.7 K/mm3 (4.5-10.0)
--- NOTE | 2021-05-23 11:19 | PCFNICU ---
ICU Rounding Note: Pt current nutrition is Glucerna 1.2 at 70 ml/hr over 22 hours. Last recorded weight is 64.6 kg, down from 70.2 kg on admit. Bowel Motility:+BM reported 05/22 Labs Reviewed:Glu 254, BUN 37, Cr 0.6,Hct 28.0,Hgb 8.6 Meds Noted:Albuterol, NovoLog, Lantus, Keppra, Atrovent, Protonix Skin: Stage II PU-saccum/left heel. Additional Notes: Patient remains on mechanical vent and tube feedings of Glucerna 1.2 at 70 ml/hr over 22 hours-tolerating per nursing. Protein Modulars continue of Robbie BID flushed via tube. Free water flush 30 ml q 4 hours. MD speaking with family regarding plan of care. Agree with diet orders. Following daily in ICU rounds. Will monitor every Friday and Friday.
[2021-05-23 12:21] LABS: Glucose Point of Care 241 mg/dl (65-105)
[2021-05-23 16:20] LABS: Glucose Point of Care 247 mg/dl (65-105)
--- NOTE | 2021-05-23 19:12 | WPDCN ---
Assessment and Plan Assessment and plan (1) Respiratory failure: Code(s): J96.90 - Respiratory failure, unspecified, unspecified whether with hypoxia or hypercapnia Status: Acute Assessment and Plan: Plan is for OR tomorrow AM by Dr. Brizuela. Please hold vte prophylaxis at midnight if possible. NPO as well. Please make sure consent is signed. Thank you. HPI Data of Consult Date/Time: 05/23/21 19:12 Requesting Physician: Del Pabon MD Primary Care Provider: Renae Wyman, Consult Narrative Narrative: Linette Vásquez is a 76 year old female with respiratory failure. ENT consulted for placement of tracheostomy. PEEP 5, FiO2 30 Review of Systems Review of Systems: ROS unobtainable: Yes unobtainable due to endotracheal tube ENT: Comments: Palpable neck landmarks PMFSH Past Medical History Medical History Chronic anemia Chronic GERD Chronic indwelling Hodge catheter Dementia Dysphagia Peg tube in-situ. Elevated transaminase level Appears chronic. 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 Surgical History Surgical History Gastrointestinal tube in situ (~02/2020) History of craniotomy Right frontal lobe craniotomy with resection of oligodendroglioma. Family History Family History Mother Diabetes mellitus Father Lung cancer Sibling Breast cancer she has Sibling Breast cancer Father Lung cancer Social History Social History Social History: The patient is a resident at a local senior care. She is a former smoker. No alcohol or illicit substance use. Julia Phelps is her healthcare power claim attorney. Code status: Full code. Spiritual care concerns: No Meds Home Medications and Allergies Home Medications Medication Instructions Recorded Confirmed Type ascorbic acid (vitamin C) [Vitamin 500 mg FEEDING TUBE DAILY 03/16/20 04/30/21 History C] cholecalciferol (vitamin D3) 1,250 mcg FEEDING TUBE WEEKLY 03/17/20 04/30/21 History lactulose 15 ml FEEDING TUBE Q8H PRN 03/17/20 04/30/21 History Fleet Enema 118 ml RECTAL DAILY PRN 12/26/20 04/30/21 History umeclidinium-vilanterol 1 inh INHALATION DAILY PRN 12/26/20 04/30/21 History bisacodyl 10 mg RECTAL DAILY PRN 01/01/21 04/30/21 History d-mannose 500 mg DAILY 01/01/21 04/30/21 History diclofenac sodium 1 applic TOPICAL BID PRN 01/01/21 04/30/21 History magnesium citrate [Citroma] 296 ml FEEDING TUBE DAILY PRN 01/01/21 04/30/21 History magnesium hydroxide 30 ml FEEDING TUBE HS PRN 01/01/21 04/30/21 History ondansetron HCl 4 mg FEEDING TUBE Q6H PRN 01/01/21 04/30/21 History Basaglar KwikPen U-100 Insulin 40 unit SUBCUT HS 01/26/21 04/30/21 History Saccharomyces boulardii [Florastor] 250 mg FEEDING TUBE BID 01/26/21 04/30/21 History acetaminophen [Mapap 650 mg FEEDING TUBE Q8H PRN 02/28/21 04/30/21 History (acetaminophen)] chlorhexidine gluconate [Peridex] 15 ml BUCCAL BID 02/28/21 04/30/21 History insulin aspart U-100 [Novolog 1 sliding scale dose SUBCUT 02/28/21 04/30/21 History Flexpen U-100 Insulin] USEASDIRECTD levetiracetam 500 mg FEEDING TUBE Q12HR #60 ml 03/30/21 04/30/21 Rx topiramate [Topamax] 100 mg NOT APPLICABLE Q12HR #60 03/30/21 04/30/21 Rx tablet Santyl 1 applic TOPICAL DAILY 04/15/21 04/30/21 History esomeprazole magnesium 20 mg FEEDING TUBE DAILY 04/15/21 04/30/21 History mupirocin 1 applic TOPICAL DAILY 04/15/21 04/30/21 History bisacodyl 10 mg RECTAL QAM PRN #10 ea 04/27/21 04/30/21 Rx ipratropium bromide 0.5 mg INHALATION Q6HRT #30 vial 02/04/22 02/07/22 Rx levalbuterol HCl 0.63 mg INHALATION Q6HRT #30 vial 04/27/21
[2021-05-23 20:31] LABS: Glucose Point of Care 239 mg/dl (65-105)
[2021-05-24] VITALS (29 sets, daily range): BP systolic 120–136; BP diastolic 56–74; PULSE 100–112; RESP 10–19; TEMP 35.8–37.4; O2SAT 95–100
[2021-05-24 01:20] LABS: Glucose Point of Care 234 mg/dl (65-105)
[2021-05-24] MEDS: ALBUTEROL SULFATE NEB 2.5 MG/0.5 ML INH INHALATION ×4 (02:16→20:28)
[2021-05-24] MEDS: IPRATROPIUM BR 0.02% INH SOLN 0.5 MG/2.5 ML VIAL INHALATION ×4 (02:16→20:28)
[2021-05-24] MEDS: CENTRAL LINE FLUSH 10 ML IV PUSH ×3 (04:03→19:32)
[2021-05-24 04:26] LABS: Hematocrit 28.5 % (37.0-47.0); Hemoglobin 8.7 g/dL (12.0-15.0); Mean Corpuscular HGB Conc 30.5 g/dl (32-36); Mean Platelet Volume 9.5 fl (7.4-10.4); Platelet Count Result 395 k/mm3 (150-375); Red Cell Distribution Width 15.5 % (11.5-14.5); White Blood Count 12.3 K/mm3 (4.5-10.0)
[2021-05-24 04:41] LABS: Glucose Point of Care 170 mg/dl (65-105)
[2021-05-24 05:05] LABS: Alanine Aminotransferase 30 U/L (4-35); Albumin Level 3.7 g/dL (3.5-5.1); Alkaline Phosphatase 127 U/L (38-126); Anion Gap 10 mmol/L (8-16); Aspartate Amino Transferase 55 U/L (14-36); Bilirubin,Total < 0.1 mg/dL (0.2-1.3); Blood Urea Nitrogen 34 mg/dL (7-17); Carbon Dioxide 32 mmol/L (22-30); Chloride 104 mmol/L (98-107); Estimated CRCL calculation 64 ml/min; Estimated Glomerular Filt Rate > 60; Glucose 189 mg/dL (65-110); Magnesium 2.1 mg/dL (1.6-2.3); Potassium 4.1 mmol/L (3.4-5.0); Sodium 146 mmol/L (137-145)
--- NOTE | 2021-05-24 05:58 | WPDHPUPDATE1 ---
History and Physical Update Update Date/Time: 05/24/21 05:58 History and Physical has been reviewed, including an updated exam of the patient. There are NO changes in the patient's condition. Risks, benefits, and alternatives have been discussed and questions answered. Patient agrees to proceed with procedure.
[2021-05-24] MEDS: MINERAL OIL/WHITE PETROLATUM OINTMENT 1 APPLIC EACH EYE ×2 (08:12→19:32)
[2021-05-24] MEDS: PANTOPRAZOLE SODIUM IV 40 MG VIAL IV PUSH ×2 (08:12→19:32)
[2021-05-24 08:17] LABS: Glucose Point of Care 220 mg/dl (65-105)
[2021-05-24] MEDS: INSULIN ASPART (*BKC) 100 UNITS/ML SUB-Q ×3 (08:20→19:31)
--- NOTE | 2021-05-24 09:30 | WPDINTPN ---
Progress Note: A&P Assessment and Plan (1) Respiratory failure: Code(s): J96.90 - Respiratory failure, unspecified, unspecified whether with hypoxia or hypercapnia Status: Acute Assessment and Plan: Acute Respiratory failure secondary to cardiac arrest and suspected aspiration pneumonia. Intubated 04/30/21 Continue full mechanical ventilation support to prevent hypoxemia/hypercarbia and end organ damage. Vent settings reviewed and ABGs been. Continue peep of 5 and 25% FiO2. Currently in ASV mode at 80% minute ventilation -continue Bronchodilators -have discussed with the family regarding tracheostomy or withdrawal of support, Results of 3rd EEG were discussed with family by Neurology. - patient is scheduled for tracheostomy today (2) Pneumonia: Code(s): J18.9 - Pneumonia, unspecified organism Status: Acute Assessment and Plan: Sputum cultures grew MSSA and pansensitive Pseudomonas Blood culture grew coag-negative staph which was likely contaminant and Corynebacterium from the other bottle which is also likely contaminant. But both should be covered with Zosyn Status post 14 days of Zosyn COVID PCR is negative (3) Encephalopathy: Code(s): G93.40 - Encephalopathy, unspecified Status: Acute Assessment and Plan: Given patient's down time during the cardiac arrest suspect patient has anoxic brain injury. Patient had poor neurological function to start with at baseline. On last admission patient was nonverbal and did not follow any commands but was awake post extubation. 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 - unable to perform an MRI on a vented patient in [facility]. Patient had a unwitnessed cardiac arrest with non shockable rhythm with unknown downtime which is of likely respiratory etiology. She completed a moderate TTM protocol -CT head on admission: No change of large calcified brain mass since 04/15/2021; no acute intracranial findings since 04/15/2021 Fluid levels in some of the paranasal sinuses since 04/15/2021 -05/03/2021: EEG showed no evidence of cortical activity -05/07/2021: EEG - abnormal record due to the presence of very low-voltage activity over the left hemisphere and due to the presence of intermittent delta activity over the right hemisphere with decrement in the electrical activity. These findings are suggestive of underlying focal structural lesion of the right hemisphere there is no evidence of abnormal seizure-like discharges clinical correlation recommended -Keppra resumed 05/08 -patient is completely off sedation for more than a weeks now -no meaningful improvement in neuro status since admit --neurology is following EEG # 3 was done on 05/16/2021 and showed no evidence of cortical activity throughout the tracing Results were discussed by neurologist with the family 05/23 by phone (4) Insulin dependent type 2 diabetes mellitus: Code(s): E11.9 - Type 2 diabetes mellitus without complications; 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 Status: Acute Assessment and Plan: continue accuchecks and sliding scale hold Lantus today as patient is off tube feeds at this time -recent hemoglobin A1c was 6.9 on 03/07/2021 (5) GI bleed: Code(s): K92.2 - Gastrointestinal hemorrhage, unspecified Status: Acute Assessment and Plan: RESOLVED New onset significant GI bleed leading to hypotension Patient was not on any anticoagulation or antiplatelet agents Patient's hemoglobin was monitor and patient has received 5 units of PRBC 05/09 Patient's coags are abnormal but not enough explain GI bleeding Patient was seen by GI will recommend conservative management at this time She has not required any transfusion since 05/09. . Continue to monitor hemoglobin but less frequent. Transfuse as needed. 05/11 Tube feeds were resumed yesterday after discussion with Jose
--- NOTE | 2021-05-24 10:51 | WPDANESEPPF ---
Anes - Initial Pre Proc Eval Procedure: Operation Date: 05/24/21 10:45 Proposed Procedures p Tracheostomy - Eron Brizuela MD Date/Time: 05/24/21 10:51 Surgeon: Del Pabon MD Pre Op Diagnosis: Cardiac arrest Patient Data Age: 76 Gender: F Height: 1.68 m Weight: 68.8 kg Last Vital Signs Temp 37.2 C 05/24/21 08:07 Pulse 101 H 05/24/21 10:00 Resp 10 L 05/24/21 08:42 BP 126/61 05/24/21 08:07 Pulse Ox 100 05/24/21 08:35 Allergies Allergy/AdvReac Type Severity Reaction Status Date / Time shellfish derived Allergy Unknown Hives Verified 04/30/21 10:39 codeine Allergy Unknown Verified 04/30/21 10:39 erythromycin base Allergy Unknown Verified 04/30/21 10:39 hydrocodone Allergy Unknown Verified 04/30/21 10:39 ibuprofen Allergy Unknown Verified 04/30/21 10:39 Iodinated Contrast Media Allergy Unknown Verified 04/30/21 10:39 meperidine Allergy Unknown Verified 04/30/21 10:39 mepivacaine [From Carbocaine] Allergy Unknown Verified 04/30/21 10:39 propoxycaine Allergy Unknown Verified 04/30/21 10:39 propoxyphene Allergy Unknown Verified 04/30/21 10:39 Sulfa (Sulfonamide Allergy Unknown Verified 04/30/21 10:39 Antibiotics) Home Medications Medication Instructions Recorded Confirmed Type ascorbic acid (vitamin C) [Vitamin 500 mg FEEDING TUBE DAILY 03/16/20 04/30/21 History C] cholecalciferol (vitamin D3) 1,250 mcg FEEDING TUBE WEEKLY 03/17/20 04/30/21 History lactulose 15 ml FEEDING TUBE Q8H PRN 03/17/20 04/30/21 History Fleet Enema 118 ml RECTAL DAILY PRN 12/26/20 04/30/21 History umeclidinium-vilanterol 1 inh INHALATION DAILY PRN 12/26/20 04/30/21 History bisacodyl 10 mg RECTAL DAILY PRN 01/01/21 04/30/21 History d-mannose 500 mg DAILY 01/01/21 04/30/21 History diclofenac sodium 1 applic TOPICAL BID PRN 01/01/21 04/30/21 History magnesium citrate [Citroma] 296 ml FEEDING TUBE DAILY PRN 01/01/21 04/30/21 History magnesium hydroxide 30 ml FEEDING TUBE HS PRN 01/01/21 04/30/21 History ondansetron HCl 4 mg FEEDING TUBE Q6H PRN 01/01/21 04/30/21 History Basaglar KwikPen U-100 Insulin 40 unit SUBCUT HS 01/26/21 04/30/21 History Saccharomyces boulardii [Florastor] 250 mg FEEDING TUBE BID 01/26/21 04/30/21 History acetaminophen [Mapap 650 mg FEEDING TUBE Q8H PRN 02/28/21 04/30/21 History (acetaminophen)] chlorhexidine gluconate [Peridex] 15 ml BUCCAL BID 02/28/21 04/30/21 History insulin aspart U-100 [Novolog 1 sliding scale dose SUBCUT 02/28/21 04/30/21 History Flexpen U-100 Insulin] USEASDIRECTD levetiracetam 500 mg FEEDING TUBE Q12HR #60 ml 03/30/21 04/30/21 Rx topiramate [Topamax] 100 mg NOT APPLICABLE Q12HR #60 03/30/21 04/30/21 Rx tablet Santyl 1 applic TOPICAL DAILY 04/15/21 04/30/21 History esomeprazole magnesium 20 mg FEEDING TUBE DAILY 04/15/21 04/30/21 History mupirocin 1 applic TOPICAL DAILY 04/15/21 04/30/21 History bisacodyl 10 mg RECTAL QAM PRN #10 ea 04/27/21 04/30/21 Rx ipratropium bromide 0.5 mg INHALATION Q6HRT #30 vial 04/27/21 04/30/21 Rx levalbuterol HCl 0.63 mg INHALATION Q6HRT #30 vial 04/27/21 04/30/21 Rx levofloxacin 750 mg FEEDING TUBE DAILY #3 tablet 04/27/21 04/30/21 Rx pantoprazole [Protonix] 40 mg PO DAILY #30 ea 04/27/21 04/30/21 Rx polyethylene glycol 3350 [Miralax] 17 g PO QAM #30 ea 04/27/21 04/30/21 Rx Laboratory Tests 03/02/22 03/02/22 03/02/22 12:00 16:18 20:27 WBC RBC Hgb Hct MCV MCH MCHC RDW Plt Count MPV Sodium Potassium Chloride Carbon Dioxide Anion Gap BUN Creatinine Estim Creat Clear Calc Estimated GFR Glucose POC Capillary Glucose 241 mg/dl H mg/dl 247 mg/dl H mg/dl 239 mg/dl H mg/dl (65-105) (65-105) (65-105) Calcium Magnesium Total Bilirubin
--- NOTE | 2021-05-24 11:21 | W.PM.PROC2 ---
Procedure Note - Detailed Date of Procedure 05/24/21 Pre-op Diagnosis Cardiac arrest Post-op Diagnosis Same Procedure Performed Tracheotomy Surgeon Eron Brizuela MD Description of Procedure Patient was prepped and draped general anesthesia partial incision made dissection carried down through the strap muscles that was removed the incision was high the tracheal notch was identified a trach hook was then used to incise as the incision was lowered incision was made the trachea 6. Shiley placed in 4 sutures placed in for stabilization and a velcro strap placed on hemostasis was obtained electrocautery and Gelfoam placed in the incision
--- NOTE | 2021-05-24 11:25 | PCFNICU ---
ICU Rounding Note: Pt current nutrition is NPO. Last recorded weight is 68.8 kg, down from 70.2 kg on admit. Bowel Motility:+BM reported 3/3 Labs Reviewed: Glu 189, BUN 34, Cr 0.6,Hct 28.5, Hgb 8.7,Na 146 Meds Noted::Albuterol, NovoLog, Lantus, Keppra, Atrovent, Protonix Skin: stage II PU-saccum/left heel. Additional Notes: Patient currently NPO for Trach today. Nutritional Recommendations: Glucerna 1.2 at 70 ml/hr over 22 hours. Protein Modular of Robbie BID for wound healing via flush. 30 ml free water flush q 4 hours. Agree with diet orders. Following daily in ICU rounds. Will monitor every Friday and Friday.
[2021-05-24] MEDS: levETIRAcetam ORAL SOL 500 MG/5 ML UDC FEED TUBE ×2 (11:53→19:32)
[2021-05-24 12:11] LABS: Glucose Point of Care 177 mg/dl (65-105)
[2021-05-24] MEDS: INSULIN GLARGINE (*BKC) 100 UNITS/ML 35 UNITS SUB-Q (13:12)
[2021-05-24 16:56] LABS: Glucose Point of Care 247 mg/dl (65-105)
--- NOTE | 2021-05-24 17:25 | P.PNIM_ITS ---
Progress Note: A&P Assessment and Plan (1) Respiratory failure: Code(s): J96.90 - Respiratory failure, unspecified, unspecified whether with hypoxia or hypercapnia Status: Acute Assessment and Plan: Acute Respiratory failure secondary to cardiac arrest and suspected aspiration pneumonia. Intubated 04/30/21 Continue full mechanical ventilation support to prevent hypoxemia/hypercarbia and end organ damage. Vent settings reviewed and ABGs been. Continue peep of 5 and 25% FiO2. Currently in ASV mode at 80% minute ventilation -continue Bronchodilators -have discussed with the family regarding tracheostomy or withdrawal of support, Results of 3rd EEG were discussed with family by Neurology. They have not made any decision yet -she has failed SBT/PSV mode due to tachypnea with low tidal volumes and hypoxia and has to be switched back to ASV mode. Also her mental status precludes her from weaning the ETT. Patient needs tracheostomy if family wants to continue mechanical ventilation support (2) Pneumonia: Code(s): J18.9 - Pneumonia, unspecified organism Status: Acute Assessment and Plan: Sputum cultures grew MSSA and pansensitive Pseudomonas Blood culture grew coag-negative staph which was likely contaminant and C orynebacterium from the other bottle which is also likely contaminant. But both should be covered with Zosyn Status post 14 days of Zosyn COVID PCR is negative (3) Encephalopathy: Code(s): G93.40 - Encephalopathy, unspecified Status: Acute Assessment and Plan: Given patient's down time during the cardiac arrest suspect patient has anoxic brain injury. Patient had poor neurological function to start with at baseline. On last admission patient was nonverbal and did not follow any commands but was awake post extubation. 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 - unable to perform an MRI on a vented patient in [facility]. Patient had a unwitnessed cardiac arrest with non shockable rhythm with unknown downtime which is of likely respiratory etiology. She completed a moderate TTM protocol -CT head on admission: No change of large calcified brain mass since 04/15/2021; no acute intracranial findings since 04/15/2021 Fluid levels in some of the paranasal sinuses since 04/15/2021 -05/03/2021: EEG showed no evidence of cortical activity -05/07/2021: EEG - abnormal record due to the presence of very low-voltage activity over the left hemisphere and due to the presence of intermittent delta activity over the right hemisphere with decrement in the electrical activity. These findings are suggestive of underlying focal structural lesion of the right hemisphere there is no evidence of abnormal seizure-like discharges clinical correlation recommended -Keppra resumed 05/08 -patient is completely off sedation for more than a weeks now -no meaningful improvement in neuro status since admit --neurology is following EEG # 3 was done on 05/16/2021 and showed no evidence of cortical activity throughout the tracing Results were discussed by neurologist with the family yesterday by phone (4) Insulin dependent type 2 diabetes mellitus: Code(s): E11.9 - Type 2 diabetes mellitus without complications; Z79.4 - [employer] and [employer] (current) use of insulin Status: Acute Assessment and Plan: continue accuchecks and sliding scale -increase Lantus further to 35 units -recent hemoglobin A1c was 6.9 on 03/07/2021 (5) GI bleed: Code(s): K92.2 - Gastrointestinal hemorrhage, unspecified Status: Acute Assessment a
[2021-05-24 19:51] LABS: Glucose Point of Care 246 mg/dl (65-105)
[2021-05-25] VITALS (14 sets, daily range): BP systolic 119–136; BP diastolic 52–69; PULSE 110–120; RESP 14–38; TEMP 37.3–37.7; O2SAT 97–100
[2021-05-25] MEDS: INSULIN ASPART (*BKC) 100 UNITS/ML SUB-Q ×3 (00:05→10:23)
[2021-05-25 00:18] LABS: Glucose Point of Care 234 mg/dl (65-105)
[2021-05-25] MEDS: IPRATROPIUM BR 0.02% INH SOLN 0.5 MG/2.5 ML VIAL INHALATION ×2 (01:57→08:28)
[2021-05-25] MEDS: ALBUTEROL SULFATE NEB 2.5 MG/0.5 ML INH INHALATION ×2 (01:57→08:28)
[2021-05-25] MEDS: CENTRAL LINE FLUSH 10 ML IV PUSH (04:19)
[2021-05-25 04:29] LABS: Glucose Point of Care 219 mg/dl (65-105)
[2021-05-25 04:32] LABS: Hematocrit 27.2 % (37.0-47.0); Hemoglobin 8.5 g/dL (12.0-15.0); Mean Corpuscular HGB Conc 31.3 g/dl (32-36); Mean Corpuscular Hemoglobin 29.7 pg (26-34); Mean Corpuscular Volume 95.1 fl (80-100); Mean Platelet Volume 8.9 fl (7.4-10.4); Platelet Count Result 367 k/mm3 (150-375); Red Blood Count 2.86 M/mm3 (4.2-5.4); Red Cell Distribution Width 15.4 % (11.5-14.5); White Blood Count 14.2 K/mm3 (4.5-10.0)
[2021-05-25 04:42] LABS: Alanine Aminotransferase 35 U/L (4-35); Albumin Level 3.6 g/dL (3.5-5.1); Alkaline Phosphatase 129 U/L (38-126); Anion Gap 8 mmol/L (8-16); Aspartate Amino Transferase 64 U/L (14-36); Bilirubin,Total 0.1 mg/dL (0.2-1.3); Blood Urea Nitrogen 26 mg/dL (7-17); Calcium 8.6 mg/dL (8.4-10.2); Carbon Dioxide 31 mmol/L (22-30); Chloride 104 mmol/L (98-107); Estimated CRCL calculation 76 ml/min; Estimated Glomerular Filt Rate > 60; Glucose 249 mg/dL (65-110); Potassium 4.1 mmol/L (3.4-5.0); Sodium 143 mmol/L (137-145)
--- NOTE | 2021-05-25 08:56 | WPDINTPN ---
Progress Note: A&P Assessment and Plan (1) Respiratory failure: Code(s): J96.90 - Respiratory failure, unspecified, unspecified whether with hypoxia or hypercapnia Status: Acute Assessment and Plan: Acute Respiratory failure secondary to cardiac arrest and suspected aspiration pneumonia. Intubated 04/30/21 Continue full mechanical ventilation support to prevent hypoxemia/hypercarbia and end organ damage. Vent settings reviewed and ABGs been. Continue peep of 5 and 25% FiO2. Currently in ASV mode at 80% minute ventilation -continue Bronchodilators - status post tracheostomy 05/24 - will try pressure support ventilation again today. if does not tolerate will, change ASV to 70% minute ventilation (2) Pneumonia: Code(s): J18.9 - Pneumonia, unspecified organism Status: Acute Assessment and Plan: Sputum cultures grew MSSA and pansensitive Pseudomonas Blood culture grew coag-negative staph which was likely contaminant and Corynebacterium from the other bottle which is also likely contaminant. But both should be covered with Zosyn Status post 14 days of Zosyn COVID PCR is negative (3) Encephalopathy: Code(s): G93.40 - Encephalopathy, unspecified Status: Acute Assessment and Plan: Given patient's down time during the cardiac arrest suspect patient has anoxic brain injury. Patient had poor neurological function to start with at baseline. On last admission patient was nonverbal and did not follow any commands but was awake post extubation. 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 - unable to perform an MRI on a vented patient in [facility]. Patient had a unwitnessed cardiac arrest with non shockable rhythm with unknown downtime which is of likely respiratory etiology. She completed a moderate TTM protocol -CT head on admission: No change of large calcified brain mass since 04/15/2021; no acute intracranial findings since 04/15/2021 Fluid levels in some of the paranasal sinuses since 04/15/2021 -05/03/2021: EEG showed no evidence of cortical activity -05/07/2021: EEG - abnormal record due to the presence of very low-voltage activity over the left hemisphere and due to the presence of intermittent delta activity over the right hemisphere with decrement in the electrical activity. These findings are suggestive of underlying focal structural lesion of the right hemisphere there is no evidence of abnormal seizure-like discharges clinical correlation recommended -Keppra resumed 05/08 -patient is completely off sedation for more than a weeks now -no meaningful improvement in neuro status since admit --neurology is following EEG # 3 was done on 05/16/2021 and showed no evidence of cortical activity throughout the tracing Results were discussed by neurologist with the family 05/23 by phone (4) Insulin dependent type 2 diabetes mellitus: Code(s): E11.9 - Type 2 diabetes mellitus without complications; 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 Status: Acute Assessment and Plan: continue accuchecks and sliding scale - increase Lantus dose -recent hemoglobin A1c was 6.9 on 03/07/2021 (5) GI bleed: Code(s): K92.2 - Gastrointestinal hemorrhage, unspecified Status: Acute Assessment and Plan: RESOLVED New onset significant GI bleed leading to hypotension Patient was not on any anticoagulation or antiplatelet agents Patient's hemoglobin was monitor and patient has received 5 units of PRBC 05/09 Patient's coags are abnormal but not enough explain GI bleeding Patient was seen by GI will recommend conservative management at this time She has not required any transfusion since 05/09. . Continue to monitor hemoglobin but less frequent. Transfuse as needed. 05/11 Tube feeds were resumed yesterday after discussion with GI -hemoglobin stable, continue to monitor CT abdomen pelvis was done I
[2021-05-25] MEDS: INSULIN GLARGINE (*BKC) 100 UNITS/ML 45 UNITS SUB-Q (10:23)
[2021-05-25] MEDS: levETIRAcetam ORAL SOL 500 MG/5 ML UDC FEED TUBE (10:24)
[2021-05-25] MEDS: PANTOPRAZOLE SODIUM IV 40 MG VIAL IV PUSH (10:24)
[2021-05-25] MEDS: MINERAL OIL/WHITE PETROLATUM OINTMENT 1 APPLIC EACH EYE (10:24)
[2021-05-25 10:42] LABS: Glucose Point of Care 244 mg/dl (65-105)
--- NOTE | 2021-05-25 11:34 | PM.DS ---
DS: Admitting Diagnosis Discharge Date 05/25/2021 Admitting Diagnosis Unresponsive without a pulse. DS: Discharge Diagnosis Discharge Diagnosis (1) Respiratory failure: Code(s): J96.90 - Respiratory failure, unspecified, unspecified whether with hypoxia or hypercapnia Status: Acute Assessment and Plan: Acute Respiratory failure secondary to cardiac arrest and suspected aspiration pneumonia. Intubated 04/30/21 Continue full mechanical ventilation support to prevent hypoxemia/hypercarbia and end organ damage. Vent settings reviewed and ABGs been. Continue peep of 5 and 25% FiO2. Currently in ASV mode at 80% minute ventilation -continue Bronchodilators - status post tracheostomy 05/24 - will try pressure support ventilation again today. if does not tolerate will, change ASV to 70% minute ventilation (2) Pneumonia: Code(s): J18.9 - Pneumonia, unspecified organism Status: Acute Assessment and Plan: Sputum cultures grew MSSA and pansensitive Pseudomonas Blood culture grew coag-negative staph which was likely contaminant and Corynebacterium from the other bottle which is also likely contaminant. But both should be covered with Zosyn Status post 14 days of Zosyn COVID PCR is negative (3) Encephalopathy: Code(s): G93.40 - Encephalopathy, unspecified Status: Acute Assessment and Plan: Given patient's down time during the cardiac arrest suspect patient has anoxic brain injury. Patient had poor neurological function to start with at baseline. On last admission patient was nonverbal and did not follow any commands but was awake post extubation. 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 - unable to perform an MRI on a vented patient in [facility]. Patient had a unwitnessed cardiac arrest with non shockable rhythm with unknown downtime which is of likely respiratory etiology. She completed a moderate TTM protocol -CT head on admission: No change of large calcified brain mass since 04/15/2021; no acute intracranial findings since 04/15/2021 Fluid levels in some of the paranasal sinuses since 04/15/2021 -05/03/2021: EEG showed no evidence of cortical activity -05/07/2021: EEG - abnormal record due to the presence of very low-voltage activity over the left hemisphere and due to the presence of intermittent delta activity over the right hemisphere with decrement in the electrical activity. These findings are suggestive of underlying focal structural lesion of the right hemisphere there is no evidence of abnormal seizure-like discharges clinical correlation recommended -Keppra resumed 05/08 -patient is completely off sedation for more than a weeks now -no meaningful improvement in neuro status since admit --neurology is following EEG # 3 was done on 05/16/2021 and showed no evidence of cortical activity throughout the tracing Results were discussed by neurologist with the family 05/23 by phone (4) Insulin dependent type 2 diabetes mellitus: Code(s): E11.9 - Type 2 diabetes mellitus without complications; Z79.4 - [facility] (current) use of insulin Status: Acute Assessment and Plan: continue accuchecks and sliding scale - increase Lantus dose -recent hemoglobin A1c was 6.9 on 03/07/2021 (5) GI bleed: Code(s): K92.2 - Gastrointestinal hemorrhage, unspecified Status: Acute Assessment and Plan: RESOLVED New onset significant GI bleed leading to hypotension Patient was not on any anticoagulation or antiplatelet agents Patient's hemoglobin was monitor and patient has received 5 units of PRBC 05/09 Patient's coags are abnormal but not enough explain GI bleeding Patient was seen by GI will recommend conservative management at this time She has not required any transfusion since 05/09. . Continue to monitor hemoglobin but less frequent. Transfuse as needed. 05/11 Tube feeds were resume
--- NOTE | 2021-05-25 12:14 | PCNFU ---
Nutrition Follow-Up Complete: Inadequate Oral Intake as related to intubation as evidenced by NPO. Goal: Meet estimated nutritional needs Patient is progressing towards goal. We will continue current goal. Pt current nutrition is Glucerna 1.2 at 70 ml/hr over 22 hours. Last recorded weight is 66.5 kg, down from 70.2 kg on admit. Bowel Motility:+BM reported 05/24 Labs Reviewed:Glu 249, Cr 0.5,BUN 26, Hct 27.2,Hgb 8.5 Meds Noted:Albuterol, NovoLog, Lantus, Keppra, Atrovent, Protonix, Atrovent. Skin: Stage II PU-saccum and left heel. Additional Notes: Patient is currently with PEG and Trach. Trach placed 05/24. Tube feeding restarted of Glucerna 1.2 at 70 ml/hr over 22 hour providing 1848 kcals/92 gms protein/1240 ml water. Protein Modulars of Robbie BID given via flush, providing an additional 90 kcals and 2.5 gms protein. Free water flush increased from 30 to 80 ml q 4 hours. Na 146 on 05/24, currently 143. Plans for possible LTAC. Agree with diet orders. Will monitor in ICU rounds daily and reassessing every Friday and Friday.
--- NOTE | 2021-05-25 13:21 | WPDANESPN ---
Anes - Prog Note Post-Op Date/Time: 05/25/21 13:21 Cardiovascular status: other (icu management of cardiovascular status) Respiratory status: other (tracheostomy) Airway patency: other Post-Op hydration status: normal Vital Signs: Last Vital Signs Temp 37.7 C H 05/25/21 12:00 Pulse 120 H 05/25/21 12:00 Resp 34 H 05/25/21 12:00 BP 130/58 L 05/25/21 12:00 Pulse Ox 97 05/25/21 12:00 Pain Score (VAS): 0 I/O: Intake & Output 05/24/21 05/25/21 05/25/21 23:59 07:59 15:59 Intake Total 1215 Output Total 600 750 Balance -600 465 Laboratory Tests 05/25/21 04:26 05/25/21 04:26 05/24/21 05/24/21 05/25/21 16:49 19:27 00:02 WBC RBC Hgb Hct MCV MCH MCHC RDW Plt Count MPV Sodium Potassium Chloride Carbon Dioxide Anion Gap BUN Creatinine Estim Creat Clear Calc Estimated GFR Glucose POC Capillary Glucose 247 H 246 H 234 H Calcium Magnesium Total Bilirubin AST ALT Alkaline Phosphatase Total Protein Albumin 05/25/21 05/25/21 05/25/21 04:14 04:26 04:26 WBC 14.2 H RBC 2.86 L Hgb 8.5 L Hct 27.2 L MCV 95.1 MCH 29.7 MCHC 31.3 L RDW 15.4 H Plt Count 367 MPV 8.9 Sodium 143 Potassium 4.1 Chloride 104 Carbon Dioxide 31 H Anion Gap 8 BUN 26 H Creatinine 0.50 L Estim Creat Clear Calc 76 Estimated GFR > 60 Glucose 249 H POC Capillary Glucose 219 H Calcium 8.6 Magnesium 2.0 Total Bilirubin 0.1 L AST 64 H ALT 35 Alkaline Phosphatase 129 H Total Protein 7.0 Albumin 3.6 05/25/21 10:22 WBC RBC Hgb Hct MCV MCH MCHC RDW Plt Count MPV Sodium Potassium Chloride Carbon Dioxide Anion Gap BUN Creatinine Estim Creat Clear Calc Estimated GFR Glucose POC Capillary Glucose 244 H Calcium Magnesium Total Bilirubin AST ALT Alkaline Phosphatase Total Protein Albumin Post-procedural complaints: none Patient Feedback: Patient satisfied with anesthetic care.
[2021-05-25 13:39] LABS: Glucose Point of Care 266 mg/dl (65-105)
--- NOTE | 2021-05-25 13:54 | PC.NURSE ---
Addendum entered by Yeimi Olvera RN 05/25/21 13:57: Family at bedside at time of discharge, Julia MAC. Original Note: Patient discharged to [facility] with [facility]. Patient did not appeart to be in any distress at the time of discharge. Patient unable to orient, vital signs: bp 130/58, r 34, 97 % on pressure support ventilation 10/5 fio2 30%. Report provided to VICTORINO [place], and room # 303.
== END 2021-05-25 13:40 | DRG 4 ==
LOC: ANHED 10:44 → ANHICU 05-02 10:17
PROVIDERS: Internal Medicine; Otolaryngology; Admitting Provider Internal Medicine; Emergency Provider Emergency Medicine; PCP Internal Medicine; Visit Provider Family Medicine
PROC: 0B113F4 Bypass Trachea to Cutaneous with Tracheostomy Device, Percutaneous Approach (ICD-10-PCS; principal; 2021-05-24 10:45)
DX: J69.0 Pneumonitis due to inhalation of food and vomit (principal); J96.00 Acute respiratory failure, unspecified whether with hypoxia or hypercapnia; R57.0 Cardiogenic shock; I46.8 Cardiac arrest due to other underlying condition; G93.40 Encephalopathy, unspecified; G93.1 Anoxic brain damage, not elsewhere classified; K92.1 Melena; K21.9 Gastro-esophageal reflux disease without esophagitis; F03.90 Unspecified dementia, unspecified severity, without behavioral disturbance, psychotic disturbance, mood disturbance, and anxiety; Z93.1 Gastrostomy status; R56.9 Unspecified convulsions; E11.9 Type 2 diabetes mellitus without complications; Z92.3 Personal history of irradiation; Z85.841 Personal history of malignant neoplasm of brain; Z83.3 Family history of diabetes mellitus; Z80.3 Family history of malignant neoplasm of breast; Z80.1 Family history of malignant neoplasm of trachea, bronchus and lung; Z87.891 Personal history of nicotine dependence; Z79.899 Other long term (current) drug therapy; Z79.4 Long term (current) use of insulin; Z79.2 Long term (current) use of antibiotics; Z88.2 Allergy status to sulfonamides; Z88.6 Allergy status to analgesic agent; Z91.013 Allergy to seafood; R13.10 Dysphagia, unspecified; Z20.822 Contact with and (suspected) exposure to COVID-19; Z66 Do not resuscitate; Z87.440 Personal history of urinary (tract) infections; D64.9 Anemia, unspecified; R03.0 Elevated blood-pressure reading, without diagnosis of hypertension; B96.5 Pseudomonas (aeruginosa) (mallei) (pseudomallei) as the cause of diseases classified elsewhere; B95.61 Methicillin susceptible Staphylococcus aureus infection as the cause of diseases classified elsewhere
CPT/HCPCS: 36415; 36430; 36556; 36600; 70450; 71045; 74176; 77001; 80048; 80053; 80202; 81001; 82375; 82550; 82805; 82948; 83050; 83605; 83735; 84100; 84484; 85025; 85027; 85610; 85730; 86850; 86900; 86901; 86920; 87040; 87070; 87077; 87186; 87205; 92950; 93005; 94003; 94640; 95816; 96365; 96366; 96367; 96375; 99285; A4629; A4248; A9270; C1751; C9113; C9803; J0171; J0461; J0610; J1650; J1720; J1815; J2060; J2405; J2543; J2997; J3010; J3370; J3475; J3480; J7030; J7040; J7042; J7050; J7060; J7070; J7120; P9016; P9047; U0003; U0005